=== PATIENT | female | born 1940 | race Caucasian/White ===

== ENCOUNTER → 2017-12-22 12:00 | Outpatient (CLI) | payer MEDICARE, SELFPAY ==
--- NOTE | 2017-12-22 12:17 | XR_ITS ---
XR chest 2V HISTORY: Cough, wheezing, bronchitis, former smoker ITS.REASON: BRONCHITIS ORDERING PHYSICIAN: Lake Gonzalez PATIENT AGE: 77 years COMPARISON: 01/08/2016 FINDINGS: Borderline cardiomegaly without failure. No lobar consolidation or collapse.. The lungs are clear without infiltrates, suspicious nodules, or pleural effusions. There are mild degenerative changes in the thoracic spine No acute bony abnormalities. IMPRESSION: No acute finding. Borderline cardiomegaly
== END ==
PROVIDERS: PCP Family Medicine; Visit Provider Family Medicine
DX: J20.9 Acute bronchitis, unspecified (principal)
CPT/HCPCS: 71046

== ENCOUNTER → 2018-03-30 13:49 | Outpatient (CLI) | payer MEDICARE, SELFPAY ==
--- NOTE | 2018-03-30 13:56 | NVE_ITS ---
Venous Exam Indications: 729.5 Pain in limb. IMPRESSIONS No evidence of deep or superficial vein thrombosis involving the left lower extremity History: Left lower extremity pain. Risk factors: Hypertension. Obese. Recent trauma. Patient states she has had several recent falls. Pain is behind the knee and the proximal calf. She states the pain has been ongoing for over a month. Left lower extremity venous duplex evaluation. Doppler flow study including spectral analysis, color and byrd scale imaging. Location: Vascular laboratory. Patient status: Outpatient. Tables: Venous flow and imaging: + + + + Location Overall Flow properties + + + + Left common femoral Patent Normal phasicity; spontaneous; normal augmentation; compressible + + + + Left saphenofemoral junction Patent Compressible + + + + Left profunda femoral Patent Compressible + + + + Left femoral Patent Normal phasicity; spontaneous; normal augmentation; compressible + + + + Left greater saphenous Patent Normal phasicity; spontaneous; normal augmentation; compressible + + + + Left popliteal Patent Normal phasicity; spontaneous; normal augmentation; compressible + + + + Left posterior tibial Difficult study Compressible + + + + Left peroneal Difficult study Compressible + + + + Left gastrocnemius Patent Compressible + + + + Left soleal Patent Compressible + + + + (Report amended ) Electronically signed by: Will Good [id number]
--- NOTE | 2018-03-30 14:25 | XR_ITS ---
XR knee LT 4V HISTORY: ITS.REASON: LT LEG PAIN ORDERING PHYSICIAN: Lake Gonzalez PATIENT AGE: 77 years COMPARISON: 9, FINDINGS: No fracture or dislocation. No lytic or blastic change. Normal mineralization. There are minimal osteoarthritic changes of the patellofemoral joint. There is a well-circumscribed area of bony exostosis projecting off of the posterior and medial aspect of the tibia measuring 2.8 cm consistent with an osteochondroma. No obvious erosive change from the cap area.. The area of exostosis points distally IMPRESSION: 1. Osteochondroma of the proximal tibia 2. Minimal osteoarthritic change of the patellofemoral joint. 3. Otherwise negative left knee
== END ==
PROVIDERS: PCP Family Medicine; Visit Provider Family Medicine
DX: M79.605 Pain in left leg (principal)
CPT/HCPCS: 73564; 93971

== ENCOUNTER → 2020-06-15 10:28 | Outpatient (CLI) | payer MEDICARE, SELFPAY ==
[2020-06-15 12:33] LABS: Coronavirus 19 IgG Antibody Negative (Negative); Coronavirus 19 IgM Antibody Negative (Negative)
== END ==
PROVIDERS: Visit Provider Internal Medicine Gastroenterology
DX: Z01.812 Encounter for preprocedural laboratory examination (principal); Z20.822 Contact with and (suspected) exposure to COVID-19; Z12.11 Encounter for screening for malignant neoplasm of colon; K58.9 Irritable bowel syndrome, unspecified
CPT/HCPCS: 36415; 86328

== ENCOUNTER 2020-06-17 13:06 | Day surgery (SDC) | payer MEDICARE, SELFPAY ==
[2020-06-11 14:19] VITALS: BMI 45.1
[2020-06-17 14:29] VITALS: BP 122/64; PULSE 100; RESP 18; TEMP 36.2; O2SAT 94
[2020-06-17 14:45] LABS: POC Glucose,Bedside 131 (70-110)
[2020-06-17 15:02] VITALS: O2SAT 97
--- NOTE | 2020-06-17 15:09 | HMH.ANESCL ---
[facility] Anesthesia Checklist - Patient Identification Patient Identification: Arm Band, Verbal (Name & ) - Structural Data Admitted From: Home Planned Operative Procedure/s: colonoscopy Consent for Planned Operative Procedure(s) Verified: Yes Verified Documents: Surgical Consent, History and Physical, Cardiac Clearance - NPO Status Verified Time NPO: 00:00 - Chart Verification Results Verified: H & H - Additional verifications Fingerstick Blood Glucose: 131 - Cardiovascular Assessment Heart Sounds: S1 & S2 - Airway Assessment C-Spine Mobility Assessed: Yes Dentition: Dentures-good fit - Neurological Assessment Level of Consciousness: Awake, Alert, Appropriate, Follows Commands Hx Seizures: No - Psychosocial Assessment Concerns Regarding Surgery: none - Anesthesia Plan Anesthesia Risk discussed: Yes ASA Class: III Anesthesia Type: MAC [facility] History I have reviewed the patient's past medical history: Yes Medical History: Reports:: Asthma, Diabetes Mellitus Type 2, Hyperlipidemia, Hypertension Denies:: Cancer, Diabetes Mellitus Type 1, Internal Pacemaker, MRSA, Seizures *Have you ever received a pneumonia vaccine?: Yes *Have you received a flu vaccine this season?: Yes Anesthesia experience/problems:: no Laterality Cases: Bilateral: Cataract, Tonsillectomy Other Surgeries: Yes: Colonoscopy. No: Pacemaker Amputation: No Fractures: No - *Social History Last grade of school completed: High school graduate Smoking Status: Former smoker #Yrs smoked (if former smoker): 30 Alcohol Intake: never Substance Use Type: denies use *Occupational Status:: retired Housing: house Household Members: none *Travel in the last 8 weeks: None Family Hx:: Hypertension
--- NOTE | 2020-06-17 15:31 | HMH.PROC ---
[facility] Procedure Note Procedure Note:: Colonoscopy Procedure Report: Colonoscopy with cold biopsies and cold snare polypectomy Endoscopist: Papi Garner II, MD Referring physician: Jorje Orourke M.D./Lake Gonzalez MD Date of Procedure: June 17, 2020 Equipment: Olympus 180 variable stiffness pediatric colonoscope Sedation: MAC sedation Indication: Mrs. Sanon is an 79-year-old female who is here for diagnostic colonoscopy. The patient has had longstanding diarrhea/chronic diarrhea for more than 20 years and has been diagnosed with IBS. She does state that her last colonoscopy was at [facility] 5 to 7 years ago. The patient reports no abdominal pain, gassiness or bloating. She reports no rectal bleeding or mucus. She reports no weight loss or family history of colon cancer. Procedure: Prior to the procedure, a history and physical exam was performed, and patient's medications and allergies were reviewed. The risks, benefits and alternatives of the sedation and procedure were discussed with the patient. All questions were answered and informed consent was obtained. The patient was brought to the procedure room. Patient identification and proposed procedure were verified by the physician and the nurse. The patient was placed in a left lateral decubitus position and the scope was passed under direct vision. Throughout the procedure, the patient's blood pressure, pulse, and oxygen saturations were monitored continuously. The colonoscopy was accomplished without difficulty. The patient tolerated the procedure well. Findings: On digital rectal examination there was normal rectal tone. There were no external hemorrhoids. The colonoscope was introduced through the anal canal to the rectum and advanced to the cecum. The ileocecal valve and appendiceal orifice were identified. The scope was advanced a short distance into the ileum which appeared grossly normal. The scope was then withdrawn into the colon. There were 2 diminutive polyps (cecum x1 (2 mm) and rectum x1 (4 mm)) which were removed via cold snare polypectomy. Random cold biopsies were taken from the right colon to rule out microscopic colitis. The remaining cecum, ascending and transverse colon and mucosa were grossly normal. There were scattered diverticuli throughout the descending and sigmoid colon (LEFT colon). The rectum itself was normal. Upon retroflexion within the rectum there were grade 2 internal hemorrhoids. The preparation was excellent throughout with [place] Preparation Score of 9. The cecal time was 14 minutes. Impression: 1. Diminutive colonic polyps x2 2. Left-sided diverticulosis 3. Grade 2 internal hemorrhoids Plan: I will follow up the biopsies as well as the polyp histology. She should not require any further preventive colonoscopy. If the biopsies confirm microscopic colitis, I would recommend budesonide for at least 12 weeks. If the biopsies are normal, I would consider an antispasmodic (Bentyl), Viberzi, Colestid or Lotronex. I would certainly consider baseline bulk fiber (FiberCon).
[2020-06-17 15:32] VITALS: BP 86/44; PULSE 104; RESP 12; TEMP 36.4; O2SAT 98
[2020-06-17 15:42] VITALS: BP 99/47; PULSE 98; RESP 16; O2SAT 98
[2020-06-17 15:52] VITALS: BP 87/63; PULSE 106; RESP 16; O2SAT 95
[2020-06-17 16:02] VITALS: BP 109/53; PULSE 88; RESP 16; TEMP 36.4; O2SAT 97
== END 2020-06-17 16:15 | disposition home or self-care (01) ==
LOC: OUTP 13:10
PROVIDERS: PCP Family Medicine; Visit Provider Internal Medicine Gastroenterology
PROC: 0DJD8ZZ Inspection of Lower Intestinal Tract, Via Natural or Artificial Opening Endoscopic (ICD-10-PCS; CPT 45378; principal; 2020-06-17 14:30)
DX: K63.5 Polyp of colon (principal); K62.1 Rectal polyp; K57.30 Diverticulosis of large intestine without perforation or abscess without bleeding; K64.1 Second degree hemorrhoids; J45.909 Unspecified asthma, uncomplicated; E11.9 Type 2 diabetes mellitus without complications; E78.5 Hyperlipidemia, unspecified; I10 Essential (primary) hypertension; Z87.891 Personal history of nicotine dependence; Z82.49 Family history of ischemic heart disease and other diseases of the circulatory system; Z79.899 Other long term (current) drug therapy; Z88.0 Allergy status to penicillin
CPT/HCPCS: 45380; 45385; 82962; 88305

== ENCOUNTER → 2020-09-23 13:50 | Outpatient (POV) | payer MEDICARE, SELFPAY | PROVIDERS: Visit Provider Nurse Practitioner Family | DX: Z00.00 Encounter for general adult medical examination without abnormal findings (principal) ==

== ENCOUNTER → 2020-11-18 13:40 | Outpatient (POV) | payer MEDICARE, SELFPAY | PROVIDERS: Visit Provider Nurse Practitioner Family | DX: Z00.00 Encounter for general adult medical examination without abnormal findings (principal) ==

== ENCOUNTER 2021-06-14 18:47 | Inpatient (IN) | payer MEDICARE, SELFPAY ==
[2021-06-14 18:45] VITALS: BP 116/89; PULSE 93; RESP 16; TEMP 36.5; O2SAT 99; BMI 36.9
--- NOTE | 2021-06-14 18:51 | ECG_ITS ---
APPROVED REPORT Exam: Resting ECG HR:90 bpm ECG Measurements Heart Rate 90 AXES MO 152 P -26 QRSd 145 QRS -19 QT 386 T 117 QTc 434 Conclusion SINUS RHYTHM LEFT BUNDLE BRANCH BLOCK [120+ ms QRS DURATION, 80+ ms Q/S IN V1/V2, 85+ ms R IN I/aVL/V5/V6] ABNORMAL ECG UNCONFIRMED REPORT Electronically signed by : Rohan Valencia MD 06/15/2021 08:51:56
--- NOTE | 2021-06-14 18:51 | XR_ITS ---
PROCEDURE INFORMATION: Exam: XR Chest Exam date and time: 06/14/2021 6:51 PM Age: 80 years old Clinical indication: Cough and other: Weakness TECHNIQUE: Imaging protocol: XR of the chest. Views: 1 view. COMPARISON: DX CXR2V XR chest 2V 12/22/2017 12:27 PM FINDINGS: Lungs: Left lower lung opacities could correlate with pneumonia in the appropriate clinical setting. Pleural spaces: Unremarkable. No pleural effusion. No pneumothorax. Heart/Mediastinum: Cardiomegaly. Enlarged pulmonary arteries likely represent chronic pulmonary arterial hypertension. Bones/joints: Unremarkable. IMPRESSION: Left lower lung opacities could correlate with pneumonia in the appropriate clinical setting.
--- NOTE | 2021-06-14 18:58 | HMH.EDGENADL ---
ED Disposition Condition on Discharge: Good - Critical Care Critical Care Time: No <Sammy Jon - Last Filed: 06/14/21 19:38> <Giovanna Brunson - Last Filed: 06/14/21 21:33> Clinical Impression: Generalized weakness Disposition: Still a Patient Referrals: Lake Gonzalez [Primary Care Provider] - Attestation: On 06/14/21, the high probability of a clinically significant, sudden or life threatening deterioration of the following system(s) required my full and direct attention, intervention and personal management. The time I documented below is in addition to time spent performing reported procedures but includes the following listed in this critical care notation. Medical Decision Making - Medical Records Medical records reviewed: Yes: I reviewed the patient's medical records. - Oneal Inquiry Pt receiving controlled substance: No - Reevaluation(s) Time: 19:38 <[email or web address] - Last Filed: 06/14/21 19:38> - Lab Data Result diagrams: 06/14/21 19:45 06/14/21 19:45 <Giovanna Brunson - Last Filed: 06/14/21 21:33> Vital Signs: 06/14/21 18:45 06/14/21 19:00 06/14/21 19:30 Temperature 97.7 F Temperature Source Oral Pulse Rate 93 H Pulse Rate [Right Radial] 93 H Respiratory Rate 16 18 18 Blood Pressure 95/37 L 94/62 L Blood Pressure [Right Arm] 116/89 Blood Pressure Mean [Right Arm] 98 Blood Pressure Source [Right Arm] Automatic Cuff Blood Pressure Position [Right Arm] Sitting 02 Sat by Pulse Oximetry 99 99 98 Oxygen Delivery Method Nasal Cannula Nasal Cannula Nasal Cannula Oxygen Flow Rate (LPM) 2 2 2 06/14/21 20:00 06/14/21 20:30 Temperature Temperature Source Pulse Rate 93 H Pulse Rate [Right Radial] Respiratory Rate 18 17 Blood Pressure 90/56 L 111/58 L Blood Pressure [Right Arm] Blood Pressure Mean [Right Arm] Blood Pressure Source [Right Arm] Blood Pressure Position [Right Arm] 02 Sat by Pulse Oximetry 100 100 Oxygen Delivery Method Nasal Cannula Nasal Cannula Oxygen Flow Rate (LPM) 2 2 - Lab Data Lab Results 06/14/21 19:45: WBC 17.2 H, RBC 4.92, Hgb 15.1, Hct 44.9, MCV 91.1, MCH 30.6, MCHC 33.6, RDW 12.9, Plt Count 190, MPV 8.6, Neut % (Auto) 88.2 H, Lymph % (Auto) 4.7 L, Island % (Auto) 6.6, Eos % (Auto) 0.4, Baso % (Auto) 0.1, Neut # (Auto) 15.2 H, Lymph # (Auto) 0.8, Island # (Auto) 1.1 H, Eos # (Auto) 0.1, Baso # (Auto) 0.0, Total Counted 100, Neutrophils % (Manual) 81 H, Band Neutrophils % 8.0, Lymphocytes % (Manual) 9 L, Monocytes % (Manual) 2, Platelet Estimate Normal, RBC Morphology Normal 06/14/21 19:45: Sodium 126 L, Potassium 5.1, Chloride 93 L, Carbon Dioxide 25, Anion Gap 13.1, BUN 98 H, Creatinine 2.70 H, Estimated Creat Clear 29, Estimated GFR 17 L*, Est GFR ( Amer) 20 L, Glucose 291 H, Calcium 8.4, Total Bilirubin 1.0, AST 29, ALT 23, Alkaline Phosphatase 67, Troponin I 0.06 H, Total Protein 5.8 L, Albumin 3.7, Globulin 2.1, Albumin/Globulin Ratio 1.8, TSH 0.59 06/14/21 19:45: NT-Pro-B Natriuret Pep 432 06/14/21 19:57: SARS-CoV-2 (PCR) Not detected, Influenza A Untype (PCR) Not detected, Influenza Type B (PCR) Not detected Orders (Tests/Meds): ED MEDICATIONS Generic Name Dose Route Start Last Admin Trade Name Freq PRN Reason Stop Dose Admin Lactated Ringer's 500 mls @ 999 mls/hr 06/14/21 20:45 06/14/21 20:36 Lactated Ringer's 1000 Ml Bag IV 06/14/21 21:15 999 mls/hr .Q31M KISHOR Administration Ceftriaxone Sodium 1 gm/ 50 mls @ 100 mls/hr 06/14/21 21:30 Sodium Chloride IV 06/28/21 21:29 Q24H KISHOR Azithromycin 500 mg/ Sodium 250 mls @ 250 mls/hr 06/14/21 21:30 Chloride IV 06/28/21 21:29 Q24H KISHOR ORDERS Category Date Time Status Troponin I Q3H Lab 06/14/21 22:00 Ordered Troponin I Q3H Lab 06/15/21 01:00 Ordered UA [Urinalysis and Microscopic] Stat Lab 06/14/21 21:00 Received - Reevaluation(s) Reevaluation #1: On reevaluation, the patient is feeling slightly
[2021-06-14 19:00] VITALS: BP 95/37; PULSE 93; RESP 18; O2SAT 99
[2021-06-14 19:30] VITALS: BP 94/62; RESP 18; O2SAT 98
[2021-06-14 19:54] LABS: Basophils % 0.1 % (0.1-2.0); Eosinophils # 0.1 K/mm3 (0.0-0.4); Eosinophils % 0.4 % (0.1-12.0); Hematocrit 44.9 % (37.0-47.0); Hemoglobin 15.1 g/dL (12.2-16.2); Lymphocytes # 0.8 K/mm3 (0.7-4.5); Lymphocytes % 4.7 % (10-50); Mean Corpuscular HGB Conc 33.6 g/dL (31.8-35.4); Mean Corpuscular Hemoglobin 30.6 pg (27.0-31.2); Mean Corpuscular Volume 91.1 fl (81-99); Mean Platelet Volume 8.6 fl (7.4-10.4); Monocytes # 1.1 K/mm3 (0.1-1.0); Monocytes % 6.6 % (1.7-9.3); Neutrophils # 15.2 K/mm3 (1.8-7.8); Neutrophils % 88.2 % (37.0-80.0); Platelet Count 190 K/mm3 (142-424); Red Blood Count 4.92 M/mm3 (4.20-5.40); Red Cell Distribution Width 12.9 % (11.5-17.5); White Blood Count 17.2 K/mm3 (4.8-10.8)
[2021-06-14 19:56] LABS: MANUAL DIFFERENTIAL MANUAL DIFFERENTIAL (MANUAL DIFF)
[2021-06-14 20:00] VITALS: BP 90/56; RESP 18; O2SAT 100
[2021-06-14 20:01] LABS: Alanine Aminotransferase 23 U/L (12-78); Albumin Level 3.7 g/dl (3.5-5.0); Albumin/Globulin Ratio 1.8 (1.1-1.8); Alkaline Phosphatase 67 U/L (38-126); Anion Gap 13.1 mEq/L (5-15); Aspartate Amino Transferase 29 U/L (14-36); Calcium 8.4 mg/dl (8.4-10.2); Carbon Dioxide 25 mmol/L (22.0-30.0); Chloride 93 mmol/L (98-107); Creatinine Clearance Estimated 29 mL/min (50-200); Estimated Glomerular Filt Rate 17 ml/min (>60); GFR (African American) 20 ML/MIN (>60); Globulin 2.1 g/dL (1.3-3.2); Glucose 291 mg/dl (74-100); Potassium 5.1 mmoL/L (3.5-5.1); Sodium 126 mmol/L (136-145); Total Protein,Serum 5.8 g/dl (6.3-8.2)
[2021-06-14 20:03] LABS: Lymphocytes % 9 % (10-50); Monocytes % 2 % (2-9); Neutrophils % 81 % (42-76); Platelet Estimate Normal; RBC Morphology Normal; Total Cells Counted 100
[2021-06-14 20:04] LABS: Blood Urea Nitrogen 98 mg/dl (7-17)
[2021-06-14 20:05] LABS: Coronavirus 19, PCR Not Detected (NotDetected); Influenza A, PCR Not Detected (NotDetected); Influenza B, PCR Not Detected (NotDetected)
[2021-06-14 20:13] LABS: Troponin I 0.06 ng/ml (0.00-0.034)
[2021-06-14 20:22] LABS: NT Pro Brain Natriuretic Pep. 432 pg/mL (0-450)
[2021-06-14 20:30] VITALS: BP 111/58; PULSE 93; RESP 17; O2SAT 100
[2021-06-14 20:32] LABS: Thyroid Stimulating Hormone 0.59 uIU/mL (0.465-4.68)
[2021-06-14 21:05] LABS: Microscopic, Urine URINE MICROSCOPIC (MICROSCOPIC)
--- NOTE | 2021-06-14 21:22 | PC.NURSE ---
MICHAEL forbes speaking with dr. robison at this time
[2021-06-14 21:34] LABS: Appearance,Urine CLEAR (Clear); Bilirubin,Urine Negative (Negative); Blood, Urine Negative (Negative); Color,Urine YELLOW (Yellow); Glucose,Urine (UA) 1+ (Negative); Ketones,Urine Negative (Negative); Leukocyte Esterase,Urine Negative (Negative); Nitrate,Urine Negative (Negative); PH,Urine 5.5 (5.0-8.5); Protein,Urine Negative (Negative); Urobilinogen,Urine 0.2 EU/dl (0.2)
[2021-06-14 21:48] VITALS: BMI 36.1
[2021-06-14 22:31] VITALS: BP 91/68; PULSE 98; RESP 18; TEMP 36.8; O2SAT 94
--- NOTE | 2021-06-14 23:05 | PC.NURSE ---
PT ARRIVED TO FLOOR VIA STRETCHER FROM ED W/STAFF @ 2330
[2021-06-14 23:18] LABS: Mycoplasma Pneumo IGM (Rapid) Non-Reactive (Non-Reactiv)
[2021-06-15] VITALS (9 sets, daily range): BP systolic 93–132; BP diastolic 50–87; PULSE 80–100; RESP 16–21; TEMP 36.3–37.1; O2SAT 94–97
[2021-06-15 00:05] LABS: Troponin I 0.04 ng/ml (0.00-0.034)
[2021-06-15 03:35] LABS: Troponin I 0.06 ng/ml (0.00-0.034)
[2021-06-15 06:33] LABS: Basophils % 0.3 % (0.1-2.0); Eosinophils # 0.2 K/mm3 (0.0-0.4); Eosinophils % 1.2 % (0.1-12.0); Hematocrit 43.3 % (37.0-47.0); Hemoglobin 14.9 g/dL (12.2-16.2); Lymphocytes # 1.8 K/mm3 (0.7-4.5); Lymphocytes % 12.9 % (10-50); Mean Corpuscular HGB Conc 34.3 g/dL (31.8-35.4); Mean Corpuscular Hemoglobin 31.2 pg (27.0-31.2); Mean Platelet Volume 10.1 fl (7.4-10.4); Neutrophils # 10.6 K/mm3 (1.8-7.8); Neutrophils % 78.6 % (37.0-80.0); Platelet Count 164 K/mm3 (142-424); Red Blood Count 4.76 M/mm3 (4.20-5.40); Red Cell Distribution Width 12.9 % (11.5-17.5); White Blood Count 13.5 K/mm3 (4.8-10.8)
[2021-06-15 09:24] LABS: Chloride 91 mmol/L (98-107); Potassium 4.8 mmoL/L (3.5-5.1); Sodium 126 mmol/L (136-145)
[2021-06-15 09:27] LABS: Anion Gap 11.8 mEq/L (5-15); Calcium 7.8 mg/dl (8.4-10.2); Carbon Dioxide 28 mmol/L (22.0-30.0); Creatinine Clearance Estimated 25 mL/min (50-200); Estimated Glomerular Filt Rate 15 ml/min (>60); GFR (African American) 18 ML/MIN (>60); Glucose 224 mg/dl (74-100)
[2021-06-15 09:33] LABS: Blood Urea Nitrogen 105 mg/dl (7-17)
[2021-06-15 10:14] LABS: Hemoglobin A1C 9.2 % (4.0-6.0)
--- NOTE | 2021-06-15 13:15 | HMH.HP ---
*Chief complaint: Shortness of breath, chest congestion *History of present illness: This 80-year-old white female presented in the emergency room and was admitted. She states that since [place] she has not felt well. She has been short of breath and congested. She has a history of lung disease being a heavy smoker in the past. She has, however, not smoked for 40 years. She is normally seen in the office of Dr. Lake Gonzalez in [place]. She was seen in his office by his nurse practitioner a week or so ago. The patient recently finished a course of prednisone. She regularly uses albuterol nebulizers at home as well as nasal O2. In the emergency room there was concern for possible pneumonia. She has had a cough but is not having much productivity. With her symptoms hanging on she states that she got tired of hearing Why don't you go to [place]? from a number of sources. Additionally complicating her problem is renal failure. She sees Dr. Morgan, script girl. She last saw him June 12 and was taken off diuretics. [facility] History Medical History: Reports:: Asthma, Chronic Obstructive Pulmonary Disease (COPD), Diabetes Mellitus Type 2, Hyperlipidemia, Hypertension Denies:: Cancer, Diabetes Mellitus Type 1, Internal Pacemaker, MRSA, Seizures *Have you ever received a pneumonia vaccine?: No *Have you received a flu vaccine this season?: Yes Other Medical History: Reports: Arthritis (Ankles). Denies: Hypothyroidism, Thyroid Disease Laterality Cases: Left: Cataract (2016), Other (Mastoid surgery), Bilateral: Tonsillectomy Other Surgeries: Yes: Appendectomy, Cholecystectomy, Colonoscopy (06/17/2020 Dr. Garner. History of tubularl adenomas.), Hysterectomy-Total, Other (Tonsillectomy. Tumor removed left mastoid area.). No: Pacemaker Amputation: No Fractures: No - *Social History Smoking Status: Former smoker Tobacco Type: cigarettes #Yrs smoked (if former smoker): 30 Alcohol Intake: never Substance Use Type: denies use *Occupational Status:: retired Housing: house Household Members: none *Travel in the last 8 weeks: None Family Hx:: Cancer (Son with renal cancer. Daughter of cancer), Diabetes (Son), Hypertension, no Thyroid Disorder : 3 Para: 3 Review of Systems - Constitutional Reports anorexia, Reports lack of energy, Reports weakness, Denies body ache(s), Denies chills - Eyes Denies change in vision - ENT Reports hearing loss, Denies dizziness - *Cardiovascular Reports shortness of breath, Reports shortness of breath with activity, Denies chest pain, Denies irregular heart rhythm - *Respiratory Reports chest congestion, Reports cough, Reports shortness of breath, Denies change in phlegm color - *Gastrointestinal Reports loose stools, Denies abdominal pain - *Genitourinary Denies abnormal vaginal bleeding - *Musculoskeletal Reports joint pain (Ankles), Reports back pain - Integumentary/Breasts Reports yellowing of the skin, Denies bleeding lesions - *Neurologic Reports weakness, Denies headache(s) - Allergic/Immunologic Reports wheezing Meds Home Medications Medication Instructions Recorded Confirmed Type allopurinol 100 mg tablet 100 mg PO DAILY tab 05/15/20 06/14/21 History benazepril 40 mg tablet 40 mg PO DAILY 05/15/20 06/14/21 History insulin NPH-regular 70-30 U-100 38 units SQ BID 05/15/20 06/14/21 History insulin 100 unit/mL subcutaneous pen metolazone 2.5 mg tablet 2.5 mg PO HS tab 05/15/20 06/14/21 History metoprolol tartrate 25 mg tablet 25 mg PO DAILY 05/15/20 06/14/21 History potassium chloride 20 mEq oral 20 meq PO DAILY 05/15/20 06/14/21 History packet spironolactone 25 mg tablet 25 mg PO DAILY 05/15/20 06/14/21 History Atorvastatin Calcium [Lipitor 40mg 40 mg PO HS 06/11/20 06/14/21 History Tablet*] Cholecalciferol (Vitamin D3) 1 tab PO DAILY 06/11/20 06/14/21 History [Vitamin D3] Torsemide 50 mg PO BID 06/11/20 06/14/21 History Allergi
--- NOTE | 2021-06-15 13:21 | P.CONPHA_ITS ---
[facility] Pharmacy VTE Monitoring - Patient Demographics Admission date: 06/15/21 Report Date: 06/15/21 Time: 13:21 Allergies/Adverse Reactions: Patient Allergies codeine [CODEINE] Allergy (Mild, Verified 06/11/20 13:59) iodine [IODINE] Allergy (Mild, Verified 06/11/20 13:59) latex [LATEX] Allergy (Mild, Verified 06/11/20 13:59) oxycodone [OXYCODONE] Allergy (Mild, Verified 06/11/20 13:59) Sulfa (Sulfonamide Antibiotics) [SULFA (SULFONAMIDE ANTIBIOTICS)] Allergy (Mild, Verified 06/11/20 13:59) PCN Allergy (Mild, Uncoded 05/15/20 10:05) Height: 1.75 m Weight: 110.586 kg Patient Problems: Current Active Problems Generalized weakness (Acute) - VTE Risk Labs: VTE Related Lab Results Hgb 14.9 g/dL (12.2-16.2) 06/15/21 05:43 Hct 43.3 % (37.0-47.0) 06/15/21 05:43 Plt Count 164 K/mm3 (142-424) 06/15/21 05:43 BUN 105 mg/dl (7-17) H* 06/15/21 05:43 Creatinine 3.00 mg/dl (0.52-1.04) H 06/15/21 05:43 Estimated Creat Clear 25 mL/min (50-200) 06/15/21 05:43 VTE Score: 4 VTE Risk Level: Low Risk - Prophylaxis Types of VTE Prophylaxis: IPCS Knee High Location of Applied Device: Bilateral Lower Extremeties (ICDS ORDERED)
--- NOTE | 2021-06-15 23:35 | PC.NURSE ---
Pharmacy called for Vancomycin dosing.
[2021-06-16] VITALS (13 sets, daily range): BP systolic 108–161; BP diastolic 50–69; PULSE 70–96; RESP 16–17; TEMP 36.4–36.9; O2SAT 92–97; BMI 37.1
[2021-06-16 05:28] LABS: POC Glucose,Bedside 284 (70-110)
[2021-06-16 06:28] LABS: POC Glucose,Bedside 201 (70-110)
--- NOTE | 2021-06-16 08:14 | HMH.PHACONS ---
- Pharmacy Consult Date: 06/16/21 Time: 08:15 Referring provider: DR REZA Reason for Consult:: VANCOMYCIN DOSING CONSULT Allergies and ADEs:: Allergies Allergy/AdvReac Type Severity Reaction Status Date / Time codeine [CODEINE] Allergy Mild Verified 06/11/20 13:59 iodine [IODINE] Allergy Mild Verified 06/11/20 13:59 latex [LATEX] Allergy Mild Verified 06/11/20 13:59 oxycodone [OXYCODONE] Allergy Mild Verified 06/11/20 13:59 Sulfa (Sulfonamide Allergy Mild Verified 06/11/20 13:59 Antibiotics) [SULFA (SULFONAMIDE ANTIBIOTICS)] PCN Allergy Mild Uncoded 05/15/20 10:05 Home Medications:: Home Medications Medication Instructions Recorded Confirmed Type allopurinol 100 mg tablet 100 mg PO DAILY tab 05/15/20 06/14/21 History benazepril 40 mg tablet 40 mg PO DAILY 05/15/20 06/14/21 History spironolactone 25 mg tablet 25 mg PO DAILY 05/15/20 06/14/21 History Atorvastatin Calcium [Lipitor 40mg 40 mg PO HS 06/11/20 06/14/21 History Tablet*] Cholecalciferol (Vitamin D3) 1 tab PO DAILY 06/11/20 06/14/21 History [Vitamin D3] Insulin Aspart [Novolog] 10 units SQ AC 06/15/21 06/15/21 History Ipratropium/Albuterol Sulfate 3 ml IH QID 06/15/21 06/15/21 History [Duoneb 3mL neb] Potassium Chloride [Klor-Con M20] 20 meq PO BID 06/15/21 06/15/21 History Height: 1.75 m Weight: 113.8 kg Laboratory Results:: Laboratory Results - last 24 hr 06/15/21 05:43: Sodium 126 L, Potassium 4.8, Chloride 91 L, Carbon Dioxide 28, Anion Gap 11.8, BUN 105 H*, Creatinine 3.00 H, Estimated Creat Clear 25, Estimated GFR 15 L*, Est GFR ( Amer) 18 L*, Glucose 224 H D, Calcium 7.8 L 06/15/21 05:43: Hemoglobin A1c 9.2 H 06/15/21 09:29: POC Glucose 284 H 02/28/22 06:01: POC Glucose 201 H Medical History: Reports:: Asthma, Chronic Obstructive Pulmonary Disease (COPD), Diabetes Mellitus Type 2, Hyperlipidemia, Hypertension Denies:: Cancer, Diabetes Mellitus Type 1, Internal Pacemaker, MRSA, Seizures Assessment and Plan (1) Asthmatic bronchitis Status: Acute Category: Medical Code(s): J45.909 - Unspecified asthma, uncomplicated (2) Type 2 diabetes mellitus Status: Acute Category: Medical Code(s): E11.9 - Type 2 diabetes mellitus without complications (3) Hypertension Status: Acute Category: Medical Code(s): I10 - Essential (primary) hypertension (4) Renal insufficiency Status: Acute Category: Medical Code(s): N28.9 - Disorder of kidney and ureter, unspecified (5) Generalized weakness Status: Acute Category: Medical Code(s): R53.1 - Weakness - Assessment and plan all Dx Assessment and Plan for all problems:: Pharmacokinetic dosing service Objective: Patient: Floor: Age: 80 yo Serum creatinine: 3.0 mg/dL Height: 68.9 Inches Weight (kg): 113.8 Diagnosis: PNEUMONIA Assessment: IBW (kg): 65.97 Dosing wt(kg): 113.8 Estimated Creatinine clearance (ml/min): 15.1 CRCL method: Cockcroft and Gault using ibw(default). Drug selected: Vancomycin Loading dose (mg): 1750 MG Vd (liters): 79.7 (factor used: 0.7 L/kg) Tommy (hr-1): 0.017 Half life (hrs): 40.77 CLvanco=?? 1.355 L/hr Recommended dose: 1500 mg Interval: 48 hrs Infusion time (hrs): 2.0 Predicted peak (mcg/mL): 33.2 Predicted trough (mcg/mL): 15.19 Total body weight is being used for vancomycin dosing. Recommendations: Give Vancomycin 1500 mg q 48 hrs with an expected Cpeak of 33.2 mcg/ml and an expected Ctrough of 15.19 mcg/ml TO START 06/17/21 AT 23:00 PATIENT RECEIVED A ONE-TIME LOADING DOSE OF VANCOMYCIN 1750 MG IV ON 06/15/21 AT 22:51. AUC 0-24 /JANE Data: JANE 0.5 mcg/mL:?? AUC/JANE:? 1107.0 JANE 1.0 mcg/mL:?? AUC/JANE:? 553.5 --------- JANE 1.5 mcg/mL:?? AUC/JANE:? 369.0 JANE 2.0
[2021-06-16 08:31] LABS: Basophils % 0.2 % (0.1-2.0); Eosinophils # 0.1 K/mm3 (0.0-0.4); Eosinophils % 0.7 % (0.1-12.0); Hematocrit 40.7 % (37.0-47.0); Hemoglobin 13.6 g/dL (12.2-16.2); Lymphocytes # 1.2 K/mm3 (0.7-4.5); Lymphocytes % 11.3 % (10-50); Mean Corpuscular HGB Conc 33.5 g/dL (31.8-35.4); Mean Corpuscular Volume 92.7 fl (81-99); Mean Platelet Volume 9.1 fl (7.4-10.4); Monocytes # 0.6 K/mm3 (0.1-1.0); Monocytes % 5.8 % (1.7-9.3); Neutrophils # 8.3 K/mm3 (1.8-7.8); Platelet Count 180 K/mm3 (142-424); Red Blood Count 4.39 M/mm3 (4.20-5.40); Red Cell Distribution Width 12.9 % (11.5-17.5); White Blood Count 10.2 K/mm3 (4.8-10.8)
--- NOTE | 2021-06-16 08:40 | P.PN_ITS ---
Internal Medicine - PN: Subj *Date: 06/16/21 *Time: 08:40 Interval history: Patient states it is difficult to sleep in the hospital. She feels her chest wheezing is better. O2 sats running 94 to 96% on O2 at 2 L/min. She was able to eat breakfast. White blood cell count this morning has normalized. BMP is pending. Exam Vital signs and Labs for Last 24 Hours: Temp Pulse Resp BP Pulse Ox 98.4 F 92 H 17 116/59 L 94 L 06/16/21 07:55 06/16/21 07:55 06/16/21 07:55 06/16/21 07:55 06/16/21 07:55 Laboratory Results - last 24 hr 06/15/21 05:43: Sodium 126 L, Potassium 4.8, Chloride 91 L, Carbon Dioxide 28, Anion Gap 11.8, BUN 105 H*, Creatinine 3.00 H, Estimated Creat Clear 25, Estimated GFR 15 L*, Est GFR ( Amer) 18 L*, Glucose 224 H D, Calcium 7.8 L 06/15/21 05:43: Hemoglobin A1c 9.2 H 06/15/21 09:29: POC Glucose 284 H 06/16/21 06:01: POC Glucose 201 H 06/16/21 08:17: WBC 10.2, RBC 4.39, Hgb 13.6, Hct 40.7, MCV 92.7, MCH 31.0, MCHC 33.5, RDW 12.9, Plt Count 180, MPV 9.1, Neut % (Auto) 82.0 H, Lymph % (Auto) 11.3, [place] % (Auto) 5.8, Eos % (Auto) 0.7, Baso % (Auto) 0.2, Neut # (Auto) 8.3 H, Lymph # (Auto) 1.2, [place] # (Auto) 0.6, Eos # (Auto) 0.1, Baso # (Auto) 0.0 I & O for Last 24 hours: Intake & Output 06/13/21 06/14/21 06/15/21 06/16/21 11:59 11:59 11:59 11:59 Intake Total 1080 / 1080 Output Total 190 / 190 1100 / 1100 Balance -190 / -190 -20 / -20 Weight 243 lb 12.8 oz 250 lb 14.177 oz Microbiology Reports for the Last 24 Hours: Microbiology 06/14/21 23:25 Blood Blood Culture - Preliminary 06/14/21 23:25 Blood Blood Culture - Preliminary - Constitutional no acute distress Comments: Speaks without dyspnea - *Routine Respiratory Exam Present: wheezes (Inspiratory and expiratory) - *Routine Cardiovascular Exam Present: RRR - *Routine Abdominal Exam Present: soft, normoactive bowel sounds, obese. Absent: tenderness - *Routine Extremities Exam Absent: edema, calf tenderness - *Routine Neurological Exam Present: alert, oriented X3 Assessment and Plan (1) Asthmatic bronchitis Status: Acute Category: Medical Code(s): J45.909 - Unspecified asthma, uncomplicated (2) Type 2 diabetes mellitus Status: Acute Category: Medical Code(s): E11.9 - Type 2 diabetes mellitus without complications (3) Hypertension Status: Acute Category: Medical Code(s): I10 - Essential (primary) hypertension (4) Renal insufficiency Status: Acute Category: Medical Code(s): N28.9 - Disorder of kidney and ureter, unspecified (5) Generalized weakness Status: Acute Category: Medical Code(s): R53.1 - Weakness - Assessment and plan all Dx Assessment and Plan for all problems:: Continue with current pulmonary care. Vancomycin has been added to Rocephin and Zithromax. She is also currently on prednisone and duo nebs scheduled.
[2021-06-16 08:47] LABS: Chloride 98 mmol/L (98-107); Potassium 4.2 mmoL/L (3.5-5.1); Sodium 129 mmol/L (136-145)
[2021-06-16 08:50] LABS: Anion Gap 10.2 mEq/L (5-15); Blood Urea Nitrogen 77 mg/dl (7-17); Calcium 7.2 mg/dl (8.4-10.2); Carbon Dioxide 25 mmol/L (22.0-30.0); Creatinine Clearance Estimated 37 mL/min (50-200); Estimated Glomerular Filt Rate 23 ml/min (>60); GFR (African American) 27 ML/MIN (>60); Glucose 238 mg/dl (74-100)
--- NOTE | 2021-06-16 11:00 | HMH.OTEV ---
OT Inpatient Evaluation Rehab OT IP Evaluation Start: 06/16/21 10:19 Freq: ONCE Status: Complete Protocol: Document 06/16/21 10:56 AGNES (Rec: 06/16/21 10:59 AGNES [id number]) Rehab OT IP Assessment Subjective History *Chief complaint: Shortness of breath, chest congestion *History of present illness: This 80-year-old white female presented in the emergency room and was admitted. She states that since [place] she has not felt well. She has been short of breath and congested. She has a history of lung disease being a heavy smoker in the past. She has, however, not smoked for 40 years. She is normally seen in the office of Dr. Lake Gonzalez in [place]. She was seen in his office by his nurse practitioner a week or so ago. The patient recently finished a course of prednisone. She regularly uses albuterol nebulizers at home as well as nasal O2. In the emergency room there was concern for possible pneumonia . She has had a cough but is not having much productivity. With her symptoms hanging on she states that she got tired of hearing Why don't you go to [place]? from a number of sources. Additionally complicating her problem is renal failure. 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 She last saw him June 12 and was taken off diuretics. [facility] History Medical History: Reports:: Asthma, Chronic Obstructive Pulmonary Disease (COPD), Diabetes Mellitus Type 2, Hyperlipidemia, Hypertension *Chief complaint: Shortness of breath, chest
--- NOTE | 2021-06-16 11:38 | HMH.PTEV ---
Physical Therapy Evaluation Rehab PT IP Evaluation Start: 06/16/21 10:18 Freq: ONCE Status: Active Protocol: Document 06/16/21 11:35 PHORGIANCARLO (Rec: 06/16/21 11:38 PHORNE [id number]) Subjective/History History History 80 yowf adm to [facility] with bronchitis with poss PNA. She reports she is on 2L O2 via [place] at all times at home, lives alone, no steps to enter the home, and uses a cane for ambulation. Subjective Subjective Pt with no c/o this am, states I feel a lot better than I did when I came in here. Rehab PT IP Eval Objective Appearance Patient Behavior Appropriate Patient Orientation Person,Place,Time Difficulty following instructions none Speech Pattern Clear Ambulation Patient Able to Ambulate Yes Ambulation Observation IP General Gait Pattern Observation Shuffling Step Ambulation Distance (feet) 25 Ambulation Assistive Device None Ambulation Ability Contact Guard/Hand Hold Balance Ability to Arise Able, uses arms to help Sitting Balance Steady, safe Standing Balance Steady, wide stance Dynamic Sitting Balance Ability Good Dynamic Standing Balance Ability Fair Transfers Bed Transfer Ability Contact Guard/Hand Hold Chair Transfer Ability Contact Guard/Hand Hold Sit to Stand Bed Transfer Ability Contact Guard/Hand Hold Sit to Stand Chair Transfer Ability Contact Guard/Hand Hold ROM All Extremities PT ROM Status WFL MMT All Extremities PT MMT WFL Rehab PT IP prob,goals,plan Problems Date of Evaluation: 06/16/21 Discharge Plan PT Discharge Plan Pt is currently at baseline for all mobility and is appropriate to return home once medically stable. Recommend Home Health therapy upon D/C. G -code Required No Eval Complexity Eval Charge Codes 26083 - Moderate Complexity PHYSICIAN CERTIFICATION: I certify the specified therapy services for Denisa Sanon are required, authorized, and reviewed every 30 days.
--- NOTE | 2021-06-16 12:18 | SW/DCPLANNER ---
Addendum entered by Eula Logan 06/18/21 13:40: [place] w/ [facility] has stated that services will begin Wednesday for this patient. Addendum entered by Eula Logan 06/18/21 09:34: The plan is for this patient to discharge home today: home health order will be faxed to [facility]. Addendum entered by Eula Logan 06/17/21 10:31: Patient is now agreeable to home health services: this will be set up at time of discharge. Original Note: I spoke with this patient regarding discharge plans. Patient stated that she plans to return home at time of discharge. Patient uses a rolling walker and home O2 ([place]). Patient has stated at this time she does not feel that she will need home health services. I will continue to follow up with this patient until medically stable for discharge. Discharge date is unknown at this time.
[2021-06-17] VITALS (13 sets, daily range): BP systolic 113–166; BP diastolic 46–65; PULSE 74–101; RESP 16–21; TEMP 36.4–36.8; O2SAT 93–100; BMI 37.5
[2021-06-17 06:39] LABS: POC Glucose,Bedside 217 (70-110)
[2021-06-17 07:12] LABS: MANUAL DIFFERENTIAL MANUAL DIFFERENTIAL (MANUAL DIFF)
[2021-06-17 07:20] LABS: Basophils % 0.4 % (0.1-2.0); Eosinophils # 0.2 K/mm3 (0.0-0.4); Eosinophils % 1.8 % (0.1-12.0); Hematocrit 42.2 % (37.0-47.0); Hemoglobin 13.6 g/dL (12.2-16.2); Lymphocytes # 1.7 K/mm3 (0.7-4.5); Lymphocytes % 17.8 % (10-50); Mean Corpuscular HGB Conc 32.1 g/dL (31.8-35.4); Mean Corpuscular Hemoglobin 30.1 pg (27.0-31.2); Mean Corpuscular Volume 93.8 fl (81-99); Mean Platelet Volume 8.9 fl (7.4-10.4); Monocytes # 0.6 K/mm3 (0.1-1.0); Monocytes % 6.2 % (1.7-9.3); Neutrophils # 7.1 K/mm3 (1.8-7.8); Neutrophils % 73.8 % (37.0-80.0); Platelet Count 198 K/mm3 (142-424); Red Cell Distribution Width 13.3 % (11.5-17.5); White Blood Count 9.7 K/mm3 (4.8-10.8)
[2021-06-17 07:36] LABS: Anion Gap 9.6 mEq/L (5-15); Blood Urea Nitrogen 55 mg/dl (7-17); Calcium 7.9 mg/dl (8.4-10.2); Carbon Dioxide 26 mmol/L (22.0-30.0); Chloride 104 mmol/L (98-107); Creatinine Clearance Estimated 49 mL/min (50-200); Estimated Glomerular Filt Rate 31 ml/min (>60); GFR (African American) 37 ML/MIN (>60); Glucose 236 mg/dl (74-100); Potassium 4.6 mmoL/L (3.5-5.1); Sodium 135 mmol/L (136-145)
[2021-06-17 08:44] LABS: Lymphocytes % 9 % (10-50); Monocytes % 5 % (2-9); Neutrophils % 86 % (42-76); Total Cells Counted 100
[2021-06-17 08:45] LABS: Platelet Estimate Normal
--- NOTE | 2021-06-17 09:48 | HMH.ACPN2 ---
Internal Medicine - PN: Subj *Date: 06/17/21 *Time: 09:48 Interval history: She is doing quite well and will soon be ready for discharge. With her positive blood culture with staph she will need continued antibiotics. I hope we can get her Zyvox to take p.o. as an outpatient. We will initiate work on that. Her respiratory status is extremely stable. Her renal function has improved dramatically. Exam Vital signs and Labs for Last 24 Hours: Temp Pulse Resp BP Pulse Ox 97.7 F 96 H 16 166/51 H 95 06/17/21 08:00 06/17/21 08:00 06/17/21 08:00 06/17/21 08:00 06/17/21 08:00 Laboratory Results - last 24 hr 06/17/21 06:24: POC Glucose 217 H 06/17/21 06:39: WBC 9.7, RBC 4.50, Hgb 13.6, Hct 42.2, MCV 93.8, MCH 30.1, MCHC 32.1, RDW 13.3, Plt Count 198, MPV 8.9, Neut % (Auto) 73.8, Lymph % (Auto) 17.8, [place] % (Auto) 6.2, Eos % (Auto) 1.8, Baso % (Auto) 0.4, Neut # (Auto) 7.1, Lymph # (Auto) 1.7, [place] # (Auto) 0.6, Eos # (Auto) 0.2, Baso # (Auto) 0.0, Total Counted 100, Neutrophils % (Manual) 86 H, Lymphocytes % (Manual) 9 L, Monocytes % (Manual) 5, Platelet Estimate Normal 06/17/21 06:39: Sodium 135 L, Potassium 4.6, Chloride 104, Carbon Dioxide 26, Anion Gap 9.6, BUN 55 H D, Creatinine 1.60 H D, Estimated Creat Clear 49, Estimated GFR 31 L, Est GFR ( Amer) 37 L D, Glucose 236 H, Calcium 7.9 L I & O for Last 24 hours: Intake & Output 06/14/21 06/15/21 06/16/21 06/17/21 11:59 11:59 11:59 11:59 Intake Total 1080 / 1080 1320 / 1320 Output Total 190 / 190 1950 / 1950 4350 / 4350 Balance -190 / -190 -870 / -870 -3030 / -3030 Weight 243 lb 12.8 oz 250 lb 14.177 oz 253 lb 9.6 oz Microbiology Reports for the Last 24 Hours: Microbiology 06/14/21 23:25 Blood Blood Culture - Preliminary Gram Positive Cocci 06/14/21 23:25 Blood Blood Culture - Preliminary Gram Positive Cocci - Constitutional no acute distress - *Routine HEENT Exam Head: Present: normocephalic Eye: Present: EOMI, PERRL ENT: Present: mucous membranes moist - *Routine Neck Exam Present: supple. Absent: lymphadenopathy - *Routine Respiratory Exam Present: decreased breath sounds, CTA bilaterally - *Routine Cardiovascular Exam Present: RRR - *Routine Abdominal Exam Present: soft, normoactive bowel sounds, obese. Absent: tenderness - *Routine Extremities Exam Absent: cyanosis, clubbing, edema - *Routine Skin Exam Present: warm. Absent: rash - *Routine Neurological Exam Present: alert, oriented X3 Assessment and Plan (1) Bacteremia due to coagulase-negative Staphylococcus Status: Acute Category: Medical Code(s): R78.81 - Bacteremia; B95.7 - Other staphylococcus as the cause of diseases classified elsewhere (2) Asthmatic bronchitis Status: Acute Category: Medical Code(s): J45.909 - Unspecified asthma, uncomplicated (3) Type 2 diabetes mellitus Status: Acute Category: Medical Code(s): E11.9 - Type 2 diabetes mellitus without complications (4) Renal insufficiency Status: Acute Category: Medical Code(s): N28.9 - Disorder of kidney and ureter, unspecified (5) Hypertension Status: Acute Category: Medical Code(s): I10 - Essential (primary) hypertension (6) Generalized weakness Status: Acute Category: Medical Code(s): R53.1 - Weakness - Assessment and plan all Dx Assessment and Plan for all problems:: Velazquez catheter. Home soon on Zyvox.
--- NOTE | 2021-06-17 15:11 | PC.NURSE ---
Morales removed per d/c order. Small blood clot in urine from morales noted. Urine pink tinged but no avtive bleeding noted. Patient denies any pain. Possible trauma when transferring from bed to chair to bathroom. Patient able to void after morales removed with no pain noted.
[2021-06-18] VITALS: BP 127/43; PULSE 88; PULSE 90; RESP 18; TEMP 36.9; O2SAT 97
[2021-06-18 04:00] VITALS: BP 164/89; PULSE 100; PULSE 80; RESP 20; TEMP 36.5; O2SAT 96
[2021-06-18 04:59] VITALS: BMI 37.5
[2021-06-18 05:25] VITALS: PULSE 79; O2SAT 95
[2021-06-18 06:42] LABS: MANUAL DIFFERENTIAL MANUAL DIFFERENTIAL (MANUAL DIFF)
[2021-06-18 06:51] LABS: Basophils % 0.3 % (0.1-2.0); Eosinophils # 0.3 K/mm3 (0.0-0.4); Eosinophils % 2.7 % (0.1-12.0); Hematocrit 43.4 % (37.0-47.0); Hemoglobin 13.6 g/dL (12.2-16.2); Lymphocytes # 1.9 K/mm3 (0.7-4.5); Lymphocytes % 20.2 % (10-50); Mean Corpuscular HGB Conc 31.4 g/dL (31.8-35.4); Mean Corpuscular Hemoglobin 30.2 pg (27.0-31.2); Mean Corpuscular Volume 96.1 fl (81-99); Mean Platelet Volume 9.1 fl (7.4-10.4); Monocytes # 0.6 K/mm3 (0.1-1.0); Monocytes % 6.1 % (1.7-9.3); Neutrophils # 6.6 K/mm3 (1.8-7.8); Neutrophils % 70.7 % (37.0-80.0); Platelet Count 218 K/mm3 (142-424); Red Blood Count 4.52 M/mm3 (4.20-5.40); Red Cell Distribution Width 13.4 % (11.5-17.5); White Blood Count 9.3 K/mm3 (4.8-10.8)
[2021-06-18 07:05] LABS: Anion Gap 10.4 mEq/L (5-15); Blood Urea Nitrogen 37 mg/dl (7-17); Calcium 8.1 mg/dl (8.4-10.2); Carbon Dioxide 25 mmol/L (22.0-30.0); Chloride 106 mmol/L (98-107); Creatinine Clearance Estimated 66 mL/min (50-200); Estimated Glomerular Filt Rate 43 ml/min (>60); GFR (African American) 52 ML/MIN (>60); Glucose 179 mg/dl (74-100); Potassium 4.4 mmoL/L (3.5-5.1); Sodium 137 mmol/L (136-145)
[2021-06-18 07:50] VITALS: BP 141/80; PULSE 98; RESP 18; TEMP 36.4; O2SAT 95
[2021-06-18 08:00] VITALS: PULSE 110
--- NOTE | 2021-06-18 08:26 | HMH.ACPN2 ---
Internal Medicine - PN: Subj *Date: 06/18/21 *Time: 08:26 Interval history: Patient states she is going home today. She does feel like going home. She says wheezing is very minimal. She has been up in the room. She is eating without difficulty. She is afebrile and O2 sats are 95% on oxygen at 2 L/min. Patient does have home O2. Blood cultures are positive x2 with ID pending. CBC this morning shows a normal white blood cell count. Blood chemistries show an improved continued improvement with renal function with a BUN of 37 and creatinine 1.2. Sodium is normal at 137 potassium 4.4. Exam Vital signs and Labs for Last 24 Hours: Temp Pulse Resp BP Pulse Ox 97.5 F L 98 H 18 141/80 H 95 06/18/21 07:50 06/18/21 07:50 06/18/21 07:50 06/18/21 07:50 06/18/21 07:50 Laboratory Results - last 24 hr 06/17/21 06:39: Total Counted 100, Neutrophils % (Manual) 86 H, Lymphocytes % (Manual) 9 L, Monocytes % (Manual) 5, Platelet Estimate Normal 06/18/21 06:13: WBC 9.3, RBC 4.52, Hgb 13.6, Hct 43.4, MCV 96.1, MCH 30.2, MCHC 31.4 L, RDW 13.4, Plt Count 218, MPV 9.1, Neut % (Auto) 70.7, Lymph % (Auto) 20.2, [place] % (Auto) 6.1, Eos % (Auto) 2.7, Baso % (Auto) 0.3, Neut # (Auto) 6.6, Lymph # (Auto) 1.9, [place] # (Auto) 0.6, Eos # (Auto) 0.3, Baso # (Auto) 0.0 06/18/21 06:13: Sodium 137, Potassium 4.4, Chloride 106, Carbon Dioxide 25, Anion Gap 10.4, BUN 37 H D, Creatinine 1.20 H D, Estimated Creat Clear 66, Estimated GFR 43 L, Est GFR ( Amer) 52 L D, Glucose 179 H D, Calcium 8.1 L I & O for Last 24 hours: Intake & Output 06/15/21 06/16/21 06/17/21 03/02/22 11:59 11:59 11:59 11:59 Intake Total 1080 / 1080 1320 / 1320 2012 Output Total 190 / 190 1950 / 1950 5750 / 5750 500 / 500 Balance -190 / -190 -870 / -870 -4430 / -4430 1513 / 1513 Weight 243 lb 12.8 oz 250 lb 14.177 oz 253 lb 9.6 oz 253 lb 9.6 oz Microbiology Reports for the Last 24 Hours: Microbiology 06/14/21 23:25 Blood Blood Culture - Preliminary Gram Positive Cocci 06/14/21 23:25 Blood Blood Culture - Preliminary Gram Positive Cocci - Constitutional no acute distress Comments: Sitting on the bedside eating her breakfast. She appears comfortable and speaks without dyspnea - *Routine Respiratory Exam Present: wheezes (Rare and expiratory wheeze) - *Routine Cardiovascular Exam Present: RRR - *Routine Abdominal Exam Present: soft, normoactive bowel sounds. Absent: tenderness - *Routine Extremities Exam Absent: edema, calf tenderness Assessment and Plan (1) Bacteremia due to coagulase-negative Staphylococcus Status: Acute Category: Medical Code(s): R78.81 - Bacteremia; B95.7 - Other staphylococcus as the cause of diseases classified elsewhere (2) Asthmatic bronchitis Status: Acute Category: Medical Code(s): J45.909 - Unspecified asthma, uncomplicated (3) Type 2 diabetes mellitus Status: Acute Category: Medical Code(s): E11.9 - Type 2 diabetes mellitus without complications (4) Renal insufficiency Status: Acute Category: Medical Code(s): N28.9 - Disorder of kidney and ureter, unspecified (5) Hypertension Status: Acute Category: Medical Code(s): I10 - Essential (primary) hypertension (6) Generalized weakness Status: Acute Category: Medical Code(s): R53.1 - Weakness - Assessment and plan all Dx Assessment and Plan for all problems:: Plan is for patient to go home today with p.o. antibiotic.
--- NOTE | 2021-06-18 09:57 | HMH.PHAINT ---
Discharge counseling complete. Informed pt of new meds, purpose, hwo to take, and potential side effects. Pt understood and had no questions or concerns
--- NOTE | 2021-06-18 10:00 | PC.NURSE ---
Pt's daughter is on her way from [facility] to pick her up.
[2021-06-18 10:46] LABS: Eosinophils % 1 % (0-3); Lymphocytes % 26 % (10-50); Monocytes % 4 % (2-9); Neutrophils % 69 % (42-76); Platelet Estimate Normal; RBC Morphology Normal; Total Cells Counted 100
[2021-06-18 11:08] VITALS: BP 157/87; PULSE 93; RESP 18; TEMP 36.4; O2SAT 100
[2021-06-18 12:29] LABS: POC Glucose,Bedside 295 (70-110)
[2021-06-18 12:29] LABS: POC Glucose,Bedside 289 (70-110)
[2021-06-18 12:29] LABS: POC Glucose,Bedside 161 (70-110)
--- NOTE | 2021-06-20 10:43 | CARE MANAGER ---
CM called to discuss post discharge status with patient. 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 She feels she is doing so wel that she may not even need HH services now. I explained that she may want to let them do the assessment and do a little therapy if they think it is necessary. She states that she is doing well and has no known needs at this time.
--- NOTE | 2021-06-22 22:36 | HMH.DCSUM ---
General - General Admission date:: 06/14/21 Discharge date: 06/18/21 HPI HPI: This 80-year-old white female presented in the emergency room and was admitted. She states that since she has not felt well. She has been short of breath and congested. She has a history of lung disease being a heavy smoker in the past. She has, however, not smoked for 40 years. She is normally seen in the office of Dr. Lake Gonzalez in [place]. She was seen in his office by his nurse practitioner a week or so ago. The patient recently finished a course of prednisone. She regularly uses albuterol nebulizers at home as well as nasal O2. In the emergency room there was concern for possible pneumonia. She has had a cough but is not having much productivity. With her symptoms hanging on she states that she got tired of hearing Why don't you go to [place]? from a number of sources. Additionally complicating her problem is renal failure. She sees Dr. Morgan, apple thinner. She last saw him June 12 and was taken off diuretics. Hospital Course Hospital Course: The patient was admitted and started on antibiotics and nebulizer treatments. A Velazquez catheter was placed and greater than 500 cc of urine returned. This was left in place to assist with abnormal renal function. Her wheezing did improve and her oxygen saturations were in the 90s on 2 L. Her white blood cell count normalized. Vancomycin was added to her Rocephin and Zithromax due to positive blood cultures with Staphylococcus capitis, and she was on prednisone and duo nebs as well. Her renal function improved dramatically as did her respiratory status. By 06/18/2021, she was feeling much better and was up in the room and eating without difficulty. She was afebrile and her oxygen saturations were normal on 2 L. She had home oxygen and wanted to be discharged. She was stable to be discharged home on Zyvox and will follow up with Dr. Emery. Objective Vital signs: Temp Pulse Resp BP Pulse Ox 97.5 F L 93 H 18 157/87 H 100 06/18/21 11:08 06/18/21 11:08 06/18/21 11:08 06/18/21 11:08 06/18/21 11:08 Narrative: - Constitutional no acute distress - *Routine HEENT Exam Head: Present: normocephalic Eye: Present: EOMI, PERRL ENT: Present: mucous membranes moist. Absent: dentition normal (Edentulous with dentures) - *Routine Neck Exam Present: supple. Absent: carotid bruit, lymphadenopathy - *Routine Respiratory Exam Present: decreased breath sounds, rales (Few bibasilar) - *Routine Cardiovascular Exam Present: RRR - *Routine Abdominal Exam Present: soft, normoactive bowel sounds, obese. Absent: tenderness - *Routine Rectal Exam Rectal:: deferred - *Routine Genitalia Exam Genitalia:: deferred - *Routine Extremities Exam Absent: cyanosis, clubbing, edema - *Routine Skin Exam Present: warm. Absent: rash - *Routine Neurological Exam Present: alert, oriented X3. Absent: altered mental status Results Labs on day of discharge: Preliminary micro results at discharge 06/14/21 23:25 Blood Culture - Preliminary Blood Staphylococcus capitis 06/14/21 23:25 Blood Culture - Preliminary Blood Staphylococcus capitis DS: Diagnosis - Discharge Diagnosis (1) Bacteremia due to coagulase-negative Staphylococcus Status: Acute (2) Asthmatic bronchitis Status: Acute (3) Type 2 diabetes mellitus Status: Acute (4) Renal insufficiency Status: Acute (5) Hypertension Status: Acute (6) Generalized weakness Status: Acute Discharge Plan - Patient Discharge Instructions ACTIVITY: Limited activity DIET: advance to your usual diet Patient Instructions: Pneumonia-Adult, DI for Kidney Failure, DI for Pneumonia -- Adult, DI for Muscle Weakness, DI for Bacteremia-Adult - Follow up Plan Follow up with: Danish Emery MD [Staff Physician] - 06/24/21 11:15 am Disposition: Home Health Service
== END 2021-06-18 11:50 | disposition home health service (06) | DRG 202 ==
LOC: ER 19:39 → 2ND 22:35
PROVIDERS: Emergency Medicine; Admitting Provider Family Medicine; Emergency Provider Emergency Medicine; PCP Family Medicine; Visit Provider Family Medicine
DX: J45.909 Unspecified asthma, uncomplicated (principal); R78.81 Bacteremia; I13.0 Hypertensive heart and chronic kidney disease with heart failure and stage 1 through stage 4 chronic kidney disease, or unspecified chronic kidney disease; Z79.4 Long term (current) use of insulin; Z79.899 Other long term (current) drug therapy; E78.5 Hyperlipidemia, unspecified; Z87.891 Personal history of nicotine dependence; E03.9 Hypothyroidism, unspecified; M19.90 Unspecified osteoarthritis, unspecified site; J44.9 Chronic obstructive pulmonary disease, unspecified; E11.22 Type 2 diabetes mellitus with diabetic chronic kidney disease; N18.9 Chronic kidney disease, unspecified; I50.9 Heart failure, unspecified
CPT/HCPCS: 36415; 71045; 80048; 80053; 81001; 82962; 83036; 83880; 84443; 84484; 85007; 85014; 85018; 85025; 85048; 85049; 86738; 87040; 87077; 87186; 93005; 94640; 94760; 94761; 96365; 96366; 96367; 97162; 97165; 99284; C9803; J0456; J0696; U0003; U0005

== ENCOUNTER 2021-07-18 13:02 | Emergency (ER) | payer MEDICARE, SELFPAY ==
[2021-07-18 13:03] VITALS: BP 142/79; PULSE 92; RESP 22; TEMP 36.5; O2SAT 94; BMI 42.0
--- NOTE | 2021-07-18 13:24 | XR_ITS ---
FINAL REPORT CLINICAL HISTORY: sob, cough COMPARISON: 06/14/2021 FINDINGS: SINGLE VIEW CHEST The heart is normal in size. The mediastinum is unremarkable. There are mild bibasilar opacities, favor atelectasis over pneumonia. There is no pneumothorax. IMPRESSION: Bibasilar opacities, favor atelectasis over pneumonia. Reviewed, Interpreted and Dictated by Donta Cummings III, MD Transcribed by Mayte Galeano Authenticated by Donta Cummings III, MD on 07/18/2021 02:55:36 PM [facility]
--- NOTE | 2021-07-18 13:26 | HMH.EDGENADL ---
ED Disposition Clinical Impression: Acute bronchitis Qualifiers: Bronchitis organism: unspecified organism Qualified Code(s): J20.9 - Acute bronchitis, unspecified Disposition: Home, Self-Care Condition on Discharge: Good Instructions: DI for Acute Bronchitis Additional Instructions: Zithromax and prednisone as prescribed. Continue your nebulizer treatments at home. Follow-up with your primary care provider in the office next week. Additional instructions for ACUTE BRONCHITIS: Use Tylenol or Ibuprofen for pain or fever. Rest and plenty of fluids. Return immediately if you have an uncontrollable fever greater than 102 degrees, increasing difficulty breathing, persistent vomiting. Prescriptions: predniSONE [Prednisone 20mg Tab] 20 mg PO BID #10 tab Transmission Status: Pending to [id number] Azithromycin [Zithromax 250mg tab] 250 mg PO DAILY #4 tab Transmission Status: Pending to [id number] Referrals: Carlos Gonzalez MD [Primary Care Provider] - - Critical Care Critical Care Time: No Attestation: On 07/18/21, the high probability of a clinically significant, sudden or life threatening deterioration of the following system(s) required my full and direct attention, intervention and personal management. The time I documented below is in addition to time spent performing reported procedures but includes the following listed in this critical care notation. Medical Decision Making - Oneal Inquiry Pt receiving controlled substance: No Vital Signs: 07/18/21 13:03 07/18/21 13:31 07/18/21 15:44 Temperature 97.7 F Temperature Source Oral Pulse Rate 90 85 Pulse Rate [Radial] 92 H Respiratory Rate 22 17 18 Blood Pressure 153/104 H 125/57 L Blood Pressure [Right Arm] 142/79 H Blood Pressure Mean 109 79 Blood Pressure Mean [Right Arm] 100 Blood Pressure Position [Right Arm] Sitting 02 Sat by Pulse Oximetry 94 L 96 97 Oxygen Delivery Method Nasal Cannula Nasal Cannula Nasal Cannula Oxygen Flow Rate (LPM) 2 2 2 - Lab Data Lab Results 07/18/21 14:10: WBC 9.3, RBC 4.81, Hgb 14.9, Hct 45.7, MCV 95.1, MCH 31.0, MCHC 32.6, RDW 13.7, Plt Count 213, MPV 7.9, Neut % (Auto) 77.0, Lymph % (Auto) 15.4, [place] % (Auto) 4.3, Eos % (Auto) 2.8, Baso % (Auto) 0.5, Neut # (Auto) 7.1, Lymph # (Auto) 1.4, [place] # (Auto) 0.4, Eos # (Auto) 0.3, Baso # (Auto) 0.0 07/18/21 14:10: Sodium 133 L, Potassium 5.0, Chloride 96 L, Carbon Dioxide 29, Anion Gap 13.0, BUN 42 H, Creatinine 1.70 H, Estimated Creat Clear 22, Estimated GFR 29 L, Est GFR ( Amer) 35 L, Glucose 294 H, Calcium 9.1, Total Bilirubin 0.8, AST 37 H, ALT 25, Alkaline Phosphatase 83, Troponin I 0.02, Total Protein 6.5, Albumin 4.1, Globulin 2.4, Albumin/Globulin Ratio 1.7 07/18/21 14:10: Lactate 1.5 07/18/21 14:10: NT-Pro-B Natriuret Pep 176 07/18/21 14:20: Procalcitonin 0.145 07/18/21 14:48: SARS-CoV-2 (PCR) Not detected, Influenza A Untype (PCR) Not detected, Influenza Type B (PCR) Not detected Result diagrams: 07/18/21 14:10 07/18/21 14:10 Orders (Tests/Meds): ED MEDICATIONS Generic Name Dose Route Start Last Admin Trade Name Freq PRN Reason Stop Dose Admin Albuterol/Ipratropium 3 ml 07/18/21 20:00 Ipratropium/Albuterol 3 Ml [facility] 08/17/21 19:59 QIDRT KISHOR Azithromycin 500 mg/ Sodium 250 mls @ 250 mls/hr 07/18/21 15:15 07/18/21 15:19 Chloride IV 08/01/21 15:14 250 mls/hr Q24H KISHOR Administration Discontinued Medications Generic Name Dose Route Start Last Admin Trade Name Freq PRN Reason Stop Dose Admin Albuterol/Ipratropium 3 ml 07/18/21 13:33 Ipratropium/Albuterol 3 Ml Neb 07/18/21 13:34 ONCE ONE Methylprednisolone Sodium Succinate 125 mg 07/18/21 15:04 07/18/21 15:19 Methylprednisolone Sod Succ 125mg Vial IV 07/18/21 15:05 125 mg ONCE ONE Administration ORDERS Category Date Time Status Troponin I Q3H Lab 07/18/21 16:30 Ordered
[2021-07-18 13:31] VITALS: BP 153/104; PULSE 90; RESP 17; O2SAT 96
[2021-07-18 14:20] LABS: Basophils % 0.5 % (0.1-2.0); Eosinophils # 0.3 K/mm3 (0.0-0.4); Eosinophils % 2.8 % (0.1-12.0); Hematocrit 45.7 % (37.0-47.0); Hemoglobin 14.9 g/dL (12.2-16.2); Lymphocytes # 1.4 K/mm3 (0.7-4.5); Lymphocytes % 15.4 % (10-50); Mean Corpuscular HGB Conc 32.6 g/dL (31.8-35.4); Mean Corpuscular Volume 95.1 fl (81-99); Mean Platelet Volume 7.9 fl (7.4-10.4); Monocytes # 0.4 K/mm3 (0.1-1.0); Monocytes % 4.3 % (1.7-9.3); Neutrophils # 7.1 K/mm3 (1.8-7.8); Platelet Count 213 K/mm3 (142-424); Red Blood Count 4.81 M/mm3 (4.20-5.40); Red Cell Distribution Width 13.7 % (11.5-17.5); White Blood Count 9.3 K/mm3 (4.8-10.8)
[2021-07-18 14:38] LABS: Lactic Acid 1.5 mmol/L (0.7-2.1)
[2021-07-18 14:49] LABS: NT Pro Brain Natriuretic Pep. 176 pg/mL (0-450)
[2021-07-18 14:55] LABS: Coronavirus 19, PCR Not Detected (NotDetected); Influenza A, PCR Not Detected (NotDetected); Influenza B, PCR Not Detected (NotDetected)
[2021-07-18 15:10] VITALS: PULSE 59; PULSE 60
[2021-07-18 15:15] LABS: Procalcitonin 0.145 ng/mL (0.0-2.0)
[2021-07-18 15:26] LABS: Chloride 96 mmol/L (98-107); Sodium 133 mmol/L (136-145)
[2021-07-18 15:28] LABS: Blood Urea Nitrogen 42 mg/dl (7-17); Creatinine Clearance Estimated 22 mL/min (50-200); Estimated Glomerular Filt Rate 29 ml/min (>60); GFR (African American) 35 ML/MIN (>60)
[2021-07-18 15:29] LABS: Alanine Aminotransferase 25 U/L (12-78); Albumin Level 4.1 g/dl (3.5-5.0); Albumin/Globulin Ratio 1.7 (1.1-1.8); Alkaline Phosphatase 83 U/L (38-126); Aspartate Amino Transferase 37 U/L (14-36); Bilirubin,Total 0.8 mg/dl (0.2-1.3); Calcium 9.1 mg/dl (8.4-10.2); Carbon Dioxide 29 mmol/L (22.0-30.0); Globulin 2.4 g/dL (1.3-3.2); Glucose 294 mg/dl (74-100); Total Protein,Serum 6.5 g/dl (6.3-8.2)
[2021-07-18 15:41] LABS: Troponin I 0.02 ng/ml (0.00-0.034)
[2021-07-18 15:44] VITALS: BP 125/57; PULSE 85; RESP 18; O2SAT 97
[2021-07-18 16:20] VITALS: BP 136/68; PULSE 78; RESP 20; TEMP 36.6; O2SAT 96
== END 2021-07-18 16:23 | disposition home or self-care (01) ==
PROVIDERS: Emergency Provider Emergency Medicine; PCP Family Medicine
DX: J20.9 Acute bronchitis, unspecified (principal); J44.1 Chronic obstructive pulmonary disease with (acute) exacerbation; E11.9 Type 2 diabetes mellitus without complications; I10 Essential (primary) hypertension; E03.9 Hypothyroidism, unspecified; E78.5 Hyperlipidemia, unspecified; Z99.81 Dependence on supplemental oxygen; Z79.899 Other long term (current) drug therapy
CPT/HCPCS: 36415; 71045; 80053; 83605; 83880; 84145; 84484; 85025; 87040; 96365; 96374; 96375; 99284; C9803; J0456; U0003; U0005

== ENCOUNTER → 2021-08-20 12:05 | Outpatient (CLI) | payer MEDICARE, SELFPAY ==
--- NOTE | 2021-08-20 12:09 | XR_ITS ---
FINAL REPORT CLINICAL HISTORY: HIP PAIN DUE TO FALL FINDINGS: 2 views of the left hip and an AP pelvis were obtained. There is no acute fracture or dislocation. There are mild degenerative changes of both hips and lower lumbar spine. There are no soft tissue abnormalities. IMPRESSION: No acute bony abnormality. Reviewed, Interpreted and Dictated by Donta Cummings III, MD Transcribed by Zach Graham Authenticated by Donta Cummings III, MD on 08/20/2021 12:44:46 PM [facility]
== END ==
PROVIDERS: Visit Provider Nurse Practitioner Family
DX: E66.01 Morbid (severe) obesity due to excess calories (principal); M25.552 Pain in left hip; Z68.42 Body mass index [BMI] 45.0-49.9, adult
CPT/HCPCS: 73502

== ENCOUNTER → 2021-08-28 13:41 | Outpatient (CLI) | payer MEDICARE, SELFPAY ==
--- NOTE | 2021-08-28 13:45 | MR_ITS ---
FINAL REPORT CLINICAL HISTORY: HEADACHE X 2WEEKS , FALLING FREQUENLY HX OF SURGERY ON BRAIN TUMOR NON CANCEROUS 2006 FINDINGS: Multiplanar MR imaging of the brain was performed without contrast. Motion artifact is identified on many of the images. There is mild age-appropriate atrophy. There are scattered foci of increased T2 signal in the cerebral white matter that have a nonspecific appearance but likely represent severe chronic ischemic/gliotic changes. There is an area of encephalomalacia in the left cerebellar hemisphere consistent with postoperative change. There is no evidence of intracranial hemorrhage or mass. No abnormal ventricular dilatation is identified. No abnormal extra-axial fluid collection is seen. No abnormality is seen on the diffusion weighted images. Normal major vessel vascular flow voids are seen. IMPRESSION: Age-appropriate atrophy and severe chronic ischemic/gliotic changes. Postoperative change in the left cerebellar hemisphere. Reviewed, Interpreted and Dictated by Donta Cummings III, MD Transcribed by Mayte Galeano Authenticated by Donta Cummings III, MD on 08/28/2021 04:02:[address] [facility]
== END ==
PROVIDERS: PCP Nurse Practitioner Family; Visit Provider Family Medicine
DX: R51.9 Headache, unspecified (principal)
CPT/HCPCS: 70551

== ENCOUNTER 2021-09-20 20:06 | Observation (INO) | payer MEDICARE, SELFPAY ==
[2021-09-20] VITALS (11 sets, daily range): BP systolic 81–127; BP diastolic 52–71; PULSE 78–95; RESP 16–24; TEMP 36.6; O2SAT 91–99; BMI 38.9; BMI 42.5
--- NOTE | 2021-09-20 20:53 | HMH.EDNVD ---
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 The time I documented below is in addition to time spent performing reported procedures but includes the following listed in this critical care notation. Medical Decision Making - Medical Records Medical records reviewed: Yes: I reviewed the patient's medical records. - Oneal Inquiry Pt receiving controlled substance: No Vital Signs: 09/20/21 20:07 09/20/21 20:58 09/20/21 21:00 Temperature 97.8 F Temperature Source Oral Pulse Rate 89 Pulse Rate [Orthostatic Lying Right Brachial] 89 Pulse Rate [Orthostatic Sitting Right Brachial] 86 Pulse Rate [Right Radial] 89 Respiratory Rate 24 16 Blood Pressure 113/59 L Blood Pressure [Orthostatic Lying Right Arm] 113/59 L Blood Pressure [Orthostatic Sitting Right Arm] 94/65 L Blood Pressure [Right Arm] 108/64 L Blood Pressure Mean 77 Blood Pressure Mean [Right Arm] 78 Blood Pressure Source [Right Arm] Manual Cuff/ Auscultation Blood Pressure Position [Right Arm] Sitting 02 Sat by Pulse Oximetry 91 L 98 Oxygen Delivery Method Nasal Cannula Nasal Cannula Oxygen Flow Rate (LPM) 2 3 09/20/21 21:02 09/20/21 21:04 09/20/21 21:25 Temperature Temperature Source Pulse Rate 86 89 83 Pulse Rate [Orthostatic Lying Right Brachial] Pulse Rate [Orthostatic Sitting Right Brachial] Pulse Rate [Right Radial] Respiratory Rate 17 16 16 Blood Pressure 94/65 L 114/61 127/70 Blood Pressure [Orthostatic Lying Right Arm] Blood Pressure [Orthostatic Sitting Right Arm] Blood Pressure [Right Arm] Blood Pressure Mean 76 69 77 Blood Pressure Mean [Right Arm] Blood Pressure Source [Right Arm] Blood Pressure Position [Right Arm] 02 Sat by Pulse Oximetry 97 97 98 Oxygen Delivery Method Nasal Cannula Nasal Cannula Nasal Cannula Oxygen Flow Rate (LPM) 3 3 3 09/20/21 21:34 09/20/21 21:44 Temperature Temperature Source Pulse Rate 78 88 Pulse Rate [Orthostatic Lying Right Brachial] Pulse Rate [Orthostatic Sitting Right Brachial] Pulse Rate [Right Radial] Respiratory Rate 16 16 Blood Pressure 125/70 107/71 L Blood Pressure [Orthostatic Lying Right Arm] Blood Pressure [Orthostatic Sitting Right Arm] Blood Pressure [Right Arm] Blood Pressure Mean 83 75 Blood Pressure Mean [Right Arm] Blood Pressure Source [Right Arm] Blood Pressure Position [Right Arm] 02 Sat by Pulse Oximetry 98 99 Oxygen Delivery Method Nasal Cannula Nasal Cannula Oxygen Flow Rate (LPM) 3 3 - Lab Data Lab results reviewed: Yes: I reviewed the patient's lab results. Lab Results 09/20/21 20:51: SARS-CoV-2 (PCR) Not detected, Influenza A Untype (PCR) Not detected, Influenza Type B (PCR) Not detected 09/20/21 21:00: WBC 8.8, RBC 5.40, Hgb 16.1, Hct 50.8 H, MCV 94.1, MCH 29.8, MCHC 31.6 L, RDW 14.0, Plt Count 338, MPV 8.1, Neut % (Auto) 66.8, Lymph % (Auto) 21.8, [place] % (Auto) 6.2, Eos % (Auto) 3.5, Baso % (Auto) 1.6, Neut # (Auto) 5.9, Lymph # (Auto) 1.9, [place] # (Auto) 0.6, Eos # (Auto) 0.3, Baso # (Auto) 0.1 09/20/21 21:00: Sodium 131 L, Potassium 5.5 H, Chloride 96 L, Carbon Dioxide 25, Anion Gap 15.5 H, BUN 90 H, Creatinine 2.10 H, Estimated Creat Clear 32, Estimated
--- NOTE | 2021-09-20 21:18 | ECG_ITS ---
APPROVED REPORT Exam: Resting ECG HR:92 bpm ECG Measurements Heart Rate 92 AXES NE 180 P -9 QRSd 149 QRS -35 QT 377 T 113 QTc 427 Conclusion SINUS RHYTHM LEFT AXIS DEVIATION [QRS AXIS < -30] LEFT BUNDLE BRANCH BLOCK [120+ ms QRS DURATION, 80+ ms Q/S IN V1/V2, 85+ ms R IN I/aVL/V5/V6] ABNORMAL ECG UNCONFIRMED REPORT Electronically signed by : Rohan Valencia MD 09/21/2021 21:30:58
[2021-09-20 21:19] LABS: Microscopic, Urine URINE MICROSCOPIC (MICROSCOPIC)
[2021-09-20 21:19] LABS: Basophils # 0.1 K/mm3 (0-0.2); Basophils % 1.6 % (0.1-2.0); Eosinophils # 0.3 K/mm3 (0.0-0.4); Eosinophils % 3.5 % (0.1-12.0); Hematocrit 50.8 % (37.0-47.0); Hemoglobin 16.1 g/dL (12.2-16.2); Lymphocytes # 1.9 K/mm3 (0.7-4.5); Lymphocytes % 21.8 % (10-50); Mean Corpuscular HGB Conc 31.6 g/dL (31.8-35.4); Mean Corpuscular Hemoglobin 29.8 pg (27.0-31.2); Mean Corpuscular Volume 94.1 fl (81-99); Mean Platelet Volume 8.1 fl (7.4-10.4); Monocytes # 0.6 K/mm3 (0.1-1.0); Monocytes % 6.2 % (1.7-9.3); Neutrophils # 5.9 K/mm3 (1.8-7.8); Neutrophils % 66.8 % (37.0-80.0); Platelet Count 338 K/mm3 (142-424); White Blood Count 8.8 K/mm3 (4.8-10.8)
[2021-09-20 21:20] LABS: Appearance,Urine CLEAR (Clear); Bilirubin,Urine Negative (Negative); Blood, Urine Negative (Negative); Color,Urine YELLOW (Yellow); Glucose,Urine (UA) TRACE (Negative); Ketones,Urine Negative (Negative); Leukocyte Esterase,Urine Negative (Negative); Nitrate,Urine Negative (Negative); Protein,Urine Negative (Negative); Urobilinogen,Urine 0.2 EU/dl (0.2)
[2021-09-20 21:32] LABS: Bacteria,Urine Trace /lpf; Squamous Epithelial Cell,Urine Occasional #/hpf (0-5)
[2021-09-20 21:34] LABS: Chloride 96 mmol/L (98-107); Potassium 5.5 mmoL/L (3.5-5.1); Sodium 131 mmol/L (136-145)
[2021-09-20 21:36] LABS: Creatinine Clearance Estimated 32 mL/min (50-200); Estimated Glomerular Filt Rate 22 ml/min (>60); GFR (African American) 27 ML/MIN (>60)
[2021-09-20 21:37] LABS: Alanine Aminotransferase 27 U/L (12-78); Albumin Level 4.2 g/dl (3.5-5.0); Albumin/Globulin Ratio 1.6 (1.1-1.8); Alkaline Phosphatase 80 U/L (38-126); Anion Gap 15.5 mEq/L (5-15); Aspartate Amino Transferase 37 U/L (14-36); Bilirubin,Direct 0.1 mg/dl (0.0-0.4); Bilirubin,Total 0.4 mg/dl (0.2-1.3); Calcium 9.6 mg/dl (8.4-10.2); Carbon Dioxide 25 mmol/L (22.0-30.0); Globulin 2.6 g/dL (1.3-3.2); Glucose 334 mg/dl (74-100); Total Protein,Serum 6.8 g/dl (6.3-8.2)
[2021-09-20 21:38] LABS: Lactic Acid 1.5 mmol/L (0.7-2.1)
[2021-09-20 21:40] LABS: Ammonia < 9 umol/L (9-30)
[2021-09-20 21:41] LABS: Blood Urea Nitrogen 90 mg/dl (7-17)
[2021-09-20 21:42] LABS: C-Reactive Protein 4.6 mg/L (0-4)
[2021-09-20 21:43] LABS: Coronavirus 19, PCR Not Detected (NotDetected); Influenza A, PCR Not Detected (NotDetected); Influenza B, PCR Not Detected (NotDetected)
--- NOTE | 2021-09-20 21:45 | XR_ITS ---
PROCEDURE INFORMATION: Exam: XR Chest Exam date and time: 09/20/2021 10:02 PM Age: 81 years old Clinical indication: Shortness of breath; Additional info: SOB TECHNIQUE: Imaging protocol: XR of the chest. Views: 4 or more views. COMPARISON: CR XR CHEST PORTABLE 07/18/2021 1:29 PM FINDINGS: Lungs: Suspected emphysema. No consolidation. Pleural spaces: No pneumothorax. Heart/Mediastinum: Borderline cardiomegaly which appears stable. Bones/joints: Degenerative changes of the shoulders. IMPRESSION: Chronic changes without acute process.
[2021-09-20 21:46] LABS: Erythrocyte Sedimentation Rate 14 mm/hr (0-30)
--- NOTE | 2021-09-20 21:47 | CT_ITS ---
PROCEDURE INFORMATION: Exam: CT Abdomen And Pelvis Without Contrast Exam date and time: 09/20/2021 9:52 PM Age: 81 years old Clinical indication: Nausea; Additional info: Nausea x 7 days TECHNIQUE: Imaging protocol: Computed tomography of the abdomen and pelvis without contrast. Radiation optimization: All CT scans at this facility use at least one of these dose optimization techniques: automated exposure control; mA and/or kV adjustment per patient size (includes targeted exams where dose is matched to clinical indication); or iterative reconstruction. COMPARISON: CR XR HIP LT 2-3V W/PELVIS 08/20/2021 12:12 PM FINDINGS: Diaphragm: Small hiatal hernia. Liver: Parenchymal enhancement is not evaluated without contrast. No hepatomegaly. Gallbladder and bile ducts: Post cholecystectomy change. Pancreas: Parenchymal enhancement is not evaluated without contrast. No ductal dilation. Spleen: Parenchymal enhancement is not evaluated without contrast. No splenomegaly. Adrenal glands: No mass. Kidneys and ureters: Parenchymal enhancement is not evaluated without contrast. No hydronephrosis. Stomach and bowel: Diverticulosis coli without evidence for diverticulitis. Appendix: No evidence of appendicitis. Intraperitoneal space: No free air. No significant fluid collection. Vasculature: Calcified atherosclerosis. No aneurysm. Lymph nodes: No enlarged lymph nodes. Urinary bladder: No acute abnormality. Reproductive: No acute abnormality. Bones/joints: No acute fracture. Soft tissues: 18 mm fat containing periumbilical hernia. IMPRESSION: No acute findings. Chronic and incidental findings described above.
--- NOTE | 2021-09-20 21:48 | PC.NURSE ---
MD AWARE OF ABNORMAL LABS. PT UPDATED WITH PLAN OF CARE.
[2021-09-20 21:49] LABS: ABG Base Excess -2.7 mmol/L (-2.4-2.3); ABG HCO3 22.8 mmhg (22.0-26.0); ABG Oxygen Saturation 97 % (90-100); ABG PCO2 41.2 mmhg (35.0-45.0); ABG PH 7.36 mmol/L (7.35-7.45); ABG PO2 97.8 mmhg (80-100)
[2021-09-20 21:50] LABS: Allen's Test Acceptable; Source Right Radial
[2021-09-20 21:51] LABS: Troponin I 0.02 ng/ml (0.00-0.034)
[2021-09-20 21:57] LABS: Amylase 51 U/L (30-110); T4 (Thyroxine) 9.3 ug/dl (5.53-11.0)
[2021-09-20 22:02] LABS: Acetone, Serum (Rapid) None Detected (None Detect)
[2021-09-20 22:04] LABS: Lipase 152 U/L (23-300)
[2021-09-20 22:10] LABS: Thyroid Stimulating Hormone 1.18 uIU/mL (0.465-4.68)
--- NOTE | 2021-09-20 22:53 | PC.NURSE ---
pathology supervisor has been called for a room for patient.
--- NOTE | 2021-09-20 23:02 | PC.NURSE ---
Went into patient's room to let the patient and her mother know that the patient would be up for discharge soon. Patient's mother stated Go ahead and get us out of here. If you aren't going to do anything for her there is no point in us being here I told the patient's mother we had to get her discharge papers before she left and she state I know what I can do, I will just walk out of here and began to get up. I told the patient's mother if they were to leave they would have to sign AMA forms. I proceeded to walk to the desk to grab the AMA form out of the filing cabinet as the patient and her mother walk past me. I told the patient they would, again, need to sign the AMA form and the patient's mother stated I know my rights and I ain't filling out that form and began to walk out the door.
--- NOTE | 2021-09-20 23:18 | PC.NURSE ---
PT ARRIVED TO FLOOR VIA STRETCHER FROM W/STAFF @ [phone]
[2021-09-21] VITALS (11 sets, daily range): BP systolic 97–124; BP diastolic 45–67; PULSE 57–90; RESP 16–20; TEMP 36.6–37.1; O2SAT 95–99; BMI 42.1
[2021-09-21 01:59] LABS: Troponin I 0.01 ng/ml (0.00-0.034)
[2021-09-21 04:12] LABS: Basophils # 0.1 K/mm3 (0-0.2); Basophils % 1.3 % (0.1-2.0); Eosinophils # 0.4 K/mm3 (0.0-0.4); Eosinophils % 4.8 % (0.1-12.0); Hematocrit 44.8 % (37.0-47.0); Hemoglobin 14.7 g/dL (12.2-16.2); Lymphocytes % 23.8 % (10-50); Mean Corpuscular HGB Conc 32.8 g/dL (31.8-35.4); Mean Corpuscular Hemoglobin 30.2 pg (27.0-31.2); Mean Corpuscular Volume 91.9 fl (81-99); Mean Platelet Volume 8.2 fl (7.4-10.4); Monocytes # 0.7 K/mm3 (0.1-1.0); Monocytes % 8.1 % (1.7-9.3); Neutrophils # 5.3 K/mm3 (1.8-7.8); Platelet Count 241 K/mm3 (142-424); Red Blood Count 4.87 M/mm3 (4.20-5.40); Red Cell Distribution Width 13.9 % (11.5-17.5); White Blood Count 8.5 K/mm3 (4.8-10.8)
[2021-09-21 04:23] LABS: Anion Gap 11.9 mEq/L (5-15); Calcium 8.7 mg/dl (8.4-10.2); Carbon Dioxide 23 mmol/L (22.0-30.0); Chloride 102 mmol/L (98-107); Creatinine Clearance Estimated 20 mL/min (50-200); Estimated Glomerular Filt Rate 29 ml/min (>60); GFR (African American) 35 ML/MIN (>60); Magnesium 1.9 mg/dl (1.6-2.3); Potassium 4.9 mmoL/L (3.5-5.1); Sodium 132 mmol/L (136-145)
[2021-09-21 04:29] LABS: Glucose 174 mg/dl (74-100)
[2021-09-21 04:30] LABS: Blood Urea Nitrogen 82 mg/dl (7-17)
[2021-09-21 04:35] LABS: Troponin I 0.02 ng/ml (0.00-0.034)
--- NOTE | 2021-09-21 04:47 | PC.NURSE ---
Patient admitted to floor. Patient wears 2l nc continuously, tolerating well sats above 90's. Patient receiving IV maintenance fluids per MAR. Excoriation noted in pawan area. Patient ambulated to the restroom with stand by assist. No complaints expressed at this time.
--- NOTE | 2021-09-21 10:18 | HMH.PHAVTE ---
[facility] Pharmacy VTE Monitoring - Patient Demographics Allergies/Adverse Reactions: Patient Allergies codeine [CODEINE] Allergy (Mild, Verified 06/11/20 13:59) iodine [IODINE] Allergy (Mild, Verified 06/11/20 13:59) latex [LATEX] Allergy (Mild, Verified 06/11/20 13:59) oxycodone [OXYCODONE] Allergy (Mild, Verified 06/11/20 13:59) Sulfa (Sulfonamide Antibiotics) [SULFA (SULFONAMIDE ANTIBIOTICS)] Allergy (Mild, Verified 06/11/20 13:59) PCN Allergy (Mild, Uncoded 05/15/20 10:05) Height: 1.6 m Weight: 107.864 kg Patient Problems: Current Active Problems Type 2 diabetes mellitus (Acute) KYLE (acute kidney injury) (Acute) Obesity (BMI 30-39.9) (Acute) LBBB (left bundle branch block) (Acute) - VTE Risk Labs: VTE Related Lab Results Hgb 14.7 g/dL (12.2-16.2) 09/21/21 04:00 Hct 44.8 % (37.0-47.0) 09/21/21 04:00 Plt Count 241 K/mm3 (142-424) D 09/21/21 04:00 BUN 82 mg/dl (7-17) H 09/21/21 04:00 Creatinine 1.70 mg/dl (0.52-1.04) H 09/21/21 04:00 Estimated Creat Clear 20 mL/min (50-200) 09/21/21 04:00 Was VTE Risk Assessment Performed: Yes VTE Score: 5 VTE Risk Level: Low Risk Clinical Trial Participant: No - Prophylaxis VTE Prophylaxis Ordered?: Yes Types of VTE Prophylaxis: TEDS Knee High Location of Applied Device: Bilateral Lower Extremeties
--- NOTE | 2021-09-21 10:18 | HMH.PHAINT ---
MEDICATION RECONCILIATION COMPLETE USING EXTERNAL PHARMACY FILL HISTORY AND MOST RECENT HOSPITAL DISCHARGE.
[2021-09-21 11:33] LABS: POC Glucose,Bedside 209 (70-110)
--- NOTE | 2021-09-21 13:39 | HMH.HP ---
*Chief complaint: Malaise. Low blood pressure. *History of present illness: The patient has not felt well for the past several days. Her complaints are very nonspecific. She does state that her blood pressure has been low at home. She presented to the emergency room for further evaluation and treatment. She was found to have elevated BUN and creatinine. She is admitted for IV fluids. She does have some ongoing respiratory issues consistent with bronchospasm. She uses nebulizer at home as well as albuterol by [facility]. [facility] History Medical History: Reports:: Asthma, Chronic Obstructive Pulmonary Disease (COPD), Diabetes Mellitus Type 2, Hyperlipidemia, Hypertension Denies:: Cancer, Diabetes Mellitus Type 1, Internal Pacemaker, MRSA, Seizures *Have you ever received a pneumonia vaccine?: Yes *Have you received a flu vaccine this season?: Yes Other Medical History: Reports: Arthritis. Denies: Hypothyroidism, Thyroid Disease Laterality Cases: Left: Other, Bilateral: Tonsillectomy Other Surgeries: Yes: Appendectomy, Cholecystectomy, Colonoscopy (06/17/2020 Dr. Garner. History of tubularl adenomas.), Hysterectomy-Total, Other (Tonsillectomy. Tumor removed left mastoid area.). No: Pacemaker Amputation: No Fractures: No - *Social History Last grade of school completed: 11th or 12th Smoking Status: Former smoker Tobacco Type: cigarettes # Packs/Day (cigarettes): 3 #Yrs smoked (if former smoker): 30 Alcohol Intake: never Substance Use Type: denies use *Occupational Status:: retired Housing: house Household Members: none *Travel in the last 8 weeks: None Family Hx:: Cancer Review of Systems - Constitutional Reports fatigue, Denies chills, Denies fever(s) - ENT Denies dizziness, Denies hoarseness - *Cardiovascular Denies chest pain, Denies leg swelling - *Respiratory Reports chest congestion (Episodic), Reports cough, Reports wheezing (Episodic) - *Gastrointestinal Denies abdominal pain - *Genitourinary Denies urinary incontinence, Denies urinary urgency - *Musculoskeletal Reports joint pain - Integumentary/Breasts Denies bleeding lesions - *Neurologic Reports headache(s), Reports weakness, Denies localized weakness, Denies seizure-like activity - Psychiatric Denies behavioral changes - Endocrine Denies flushing - Allergic/Immunologic Denies throat swelling Meds Home Medications Medication Instructions Recorded Confirmed Type allopurinol 100 mg tablet 100 mg PO DAILY tab 05/15/20 09/20/21 History benazepril 40 mg tablet 40 mg PO DAILY 05/15/20 09/20/21 History spironolactone 25 mg tablet 25 mg PO DAILY 05/15/20 09/20/21 History Atorvastatin Calcium [Lipitor 40mg 40 mg PO HS 06/11/20 09/20/21 History Tablet*] Cholecalciferol (Vitamin D3) 1 tab PO DAILY 06/11/20 09/20/21 History [Vitamin D3] Insulin Aspart [Novolog] 10 units SQ AC 06/15/21 09/20/21 History Ipratropium/Albuterol Sulfate 3 ml IH QID 06/15/21 09/20/21 History [Duoneb 3mL neb] Potassium Chloride [Klor-Con M20] 20 meq PO BID 06/15/21 09/20/21 History Torsemide 50 mg PO DAILY 09/20/21 09/21/21 History Insulin Detemir [Levemir 10 units SQ HS 09/21/21 09/21/21 History 100units/mL 3mL flexpen] Naproxen [EC-Naproxen] 500 mg PO BIDP PRN 09/21/21 09/21/21 History Allergies Allergy/AdvReac Type Severity Reaction Status Date / Time codeine [CODEINE] Allergy Mild Verified 06/11/20 13:59 iodine [IODINE] Allergy Mild Verified 06/11/20 13:59 latex [LATEX] Allergy Mild Verified 06/11/20 13:59 oxycodone [OXYCODONE] Allergy Mild Verified 06/11/20 13:59 Sulfa (Sulfonamide Allergy Mild Verified 06/11/20 13:59 Antibiotics) [SULFA (SULFONAMIDE ANTIBIOTICS)] PCN Allergy Mild Uncoded 05/15/20 10:05 Exam Vital signs and Labs for Last 24 Hours: Temp Pulse Resp BP Pulse Ox 98.2 F 61 17 97/57 L 98 09/21/21 11:07 09/21/21 11:07 09/21/21 11:07 09/21/21 11:07 09/21/21 11:07 Laboratory Results -
--- NOTE | 2021-09-21 18:08 | PC.NURSE ---
PT HAS HAD NO COMPLAINTS TODAY. SHE IS A&O X4. AMBULATES WITH STANDBY ASSISTANCE TO BATHROOM. BLOOD GLUCOSE LEVELS HAVE BEEN ELEVATED THIS SHIFT AND SHE HAS REQUIRED SSI PER MAR.
[2021-09-21 20:44] LABS: POC Glucose,Bedside 219 (70-110)
--- NOTE | 2021-09-21 21:48 | PC.NURSE ---
Yesenia from lab called to report preliminary blood culture results of gram positive staphylococcus epidermidis.
[2021-09-22] VITALS: PULSE 70
--- NOTE | 2021-09-22 01:14 | ECG_ITS ---
APPROVED REPORT Exam: Resting ECG HR:83 bpm ECG Measurements Heart Rate 83 AXES [place] 181 P 18 QRSd 155 QRS -19 QT 389 T 121 QTc 429 Conclusion SINUS RHYTHM LEFT BUNDLE BRANCH BLOCK [120+ ms QRS DURATION, 80+ ms Q/S IN V1/V2, 85+ ms R IN I/aVL/V5/V6] ABNORMAL ECG UNCONFIRMED REPORT Electronically signed by : Rohan Valencia MD 09/23/2021 18:43:18
--- NOTE | 2021-09-22 01:32 | PC.NURSE ---
Seen slight ST changes on tele strips; had EKG obtained; had ED doctor, Avinash, read the EKG and he stated there were no acute changes.
[2021-09-22 04:00] VITALS: BP 145/89; PULSE 64; PULSE 86; RESP 18; TEMP 36.6; O2SAT 94; BMI 43.0
--- NOTE | 2021-09-22 04:41 | PC.NURSE ---
Patient alert and oriented x4. Has not rested well this shift. No c/o pain or discomfort this shift. Call light in place and working appropriately.
[2021-09-22 05:00] VITALS: BMI 42.0
[2021-09-22 06:21] VITALS: PULSE 54; PULSE 62; O2SAT 98
[2021-09-22 06:39] LABS: POC Glucose,Bedside 150 (70-110)
[2021-09-22 07:17] LABS: Chloride 106 mmol/L (98-107); Sodium 137 mmol/L (136-145)
[2021-09-22 07:18] LABS: Basophils # 0.1 K/mm3 (0-0.2); Basophils % 1.8 % (0.1-2.0); Eosinophils # 0.5 K/mm3 (0.0-0.4); Eosinophils % 6.7 % (0.1-12.0); Hematocrit 47.9 % (37.0-47.0); Hemoglobin 15.3 g/dL (12.2-16.2); Lymphocytes # 2.4 K/mm3 (0.7-4.5); Mean Corpuscular HGB Conc 31.9 g/dL (31.8-35.4); Monocytes # 0.5 K/mm3 (0.1-1.0); Monocytes % 6.5 % (1.7-9.3); Platelet Count 309 K/mm3 (142-424); Potassium 4.5 mmoL/L (3.5-5.1); Red Cell Distribution Width 13.8 % (11.5-17.5); White Blood Count 7.5 K/mm3 (4.8-10.8)
[2021-09-22 07:20] LABS: Blood Urea Nitrogen 54 mg/dl (7-17); Creatinine Clearance Estimated 26 mL/min (50-200); Estimated Glomerular Filt Rate 39 ml/min (>60); GFR (African American) 47 ML/MIN (>60)
[2021-09-22 07:21] LABS: Anion Gap 11.5 mEq/L (5-15); Calcium 9.2 mg/dl (8.4-10.2); Carbon Dioxide 24 mmol/L (22.0-30.0); Glucose 171 mg/dl (74-100)
--- NOTE | 2021-09-22 07:52 | HMH.ACPN2 ---
Internal Medicine - PN: Subj *Date: 09/22/21 *Time: 07:52 Interval history: Patient states she is doing better. She has had no further nausea, vomiting or diarrhea. Bowels have not moved since hospitalization. She has been able to eat without difficulties. She still has some left lower quadrant abdominal tenderness and some right lower quadrant discomfort. She is voiding QS. She is ambulated to the bathroom without problems. She continues with oxygen continuously and states her cough is not as usual. Duo nebs have helped. Exam Vital signs and Labs for Last 24 Hours: Temp Pulse Resp BP Pulse Ox 97.8 F 54 L 18 145/89 H 98 09/22/21 04:00 09/22/21 06:21 09/22/21 04:00 09/22/21 04:00 09/22/21 06:21 Laboratory Results - last 24 hr 09/21/21 11:25: POC Glucose 209 H 09/21/21 20:19: POC Glucose 219 H 09/22/21 06:29: POC Glucose 150 H 09/22/21 06:55: WBC 7.5, RBC 5.10, Hgb 15.3, Hct 47.9 H, MCV 94.0, MCH 30.0, MCHC 31.9, RDW 13.8, Plt Count 309 D, MPV 8.0, Neut % (Auto) 53.0, Lymph % (Auto) 32.0, [place] % (Auto) 6.5, Eos % (Auto) 6.7, Baso % (Auto) 1.8, Neut # (Auto) 4.0, Lymph # (Auto) 2.4, [place] # (Auto) 0.5, Eos # (Auto) 0.5 H, Baso # (Auto) 0.1 09/22/21 06:55: Sodium 137, Potassium 4.5, Chloride 106, Carbon Dioxide 24, Anion Gap 11.5, BUN 54 H D, Creatinine 1.30 H D, Estimated Creat Clear 26, Estimated GFR 39 L, Est GFR ( Amer) 47 L D, Glucose 171 H, Calcium 9.2 I & O for Last 24 hours: Intake & Output 09/19/21 09/20/21 09/21/21 09/22/21 11:59 11:59 11:59 11:59 Intake Total 2429 / 2429 1120 / 1120 Balance 2429 / 2428 1119 / 1119 Weight 237 lb 12.8 oz 237 lb 10.533 oz Microbiology Reports for the Last 24 Hours: Microbiology 09/20/21 21:26 Blood - Abscess Blood Culture - Preliminary - Constitutional no acute distress Comments: Sitting on the bedside after completion of breakfast and appears comfortable. No dyspnea noted. - *Routine Respiratory Exam Present: crackles (Posteriorly. Clearing somewhat with cough.), diminished air movement (Posteriorly) - *Routine Cardiovascular Exam Present: RRR - *Routine Abdominal Exam Present: soft, normoactive bowel sounds, tenderness (Left lower quadrant). 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 Will discontinue IV fluids. Probably home today.
[2021-09-22 08:00] VITALS: BP 137/59; PULSE 86; PULSE 90; RESP 18; TEMP 36.7; O2SAT 97
--- NOTE | 2021-09-22 10:04 | HMH.PTEV ---
Physical Therapy Evaluation Rehab PT IP Evaluation Start: 09/22/21 09:05 Freq: ONCE Status: Active Protocol: Document 09/22/21 10:02 MATTHEW (Rec: 09/22/21 10:04 MATTHEW [id number]) Subjective/History History History 81 yowf adm to [facility] with KYLE. She reports she lives alone, 1 step to enter the home and is generally independent with all mobility. She reports she uses oxygen via NC at all times at baseline. Subjective Subjective Pt reports no c/o pain this am . Rehab PT IP Eval Objective Appearance Patient Behavior Appropriate Patient Orientation Person,Place,Time Difficulty following instructions none Speech Pattern Clear Ambulation Patient Able to Ambulate Yes Ambulation Observation IP General Gait Pattern Observation No Deviations/Normal Ambulation Distance (feet) 30 Ambulation Assistive Device None Ambulation Ability Supervision/Stand by Balance Ability to Arise Able, uses arms to help Sitting Balance Steady, safe Standing Balance Steady, wide stance Dynamic Sitting Balance Ability Good Dynamic Standing Balance Ability Good Transfers Bed Transfer Ability Independent Chair Transfer Ability Supervision/Stand by Sit to Stand Bed Transfer Ability Supervision/Stand by Sit to Stand Chair Transfer Ability Supervision/Stand by Rehab PT IP prob,goals,plan Problems Date of Evaluation: 09/22/21 Discharge Plan PT Discharge Plan Pt is currently independent with all mobility and is appropriate to return home once medically stable. G -code Required No Eval Complexity Eval Charge Codes 02718 - Moderate Complexity PHYSICIAN CERTIFICATION: I certify the specified therapy services for Denisa Sanon are required, authorized, and reviewed every 30 days.
[2021-09-22 11:36] VITALS: BMI 42.0
[2021-09-22 12:00] VITALS: BP 130/72; PULSE 100; PULSE 87; RESP 20; TEMP 36.4; O2SAT 98
--- NOTE | 2021-09-22 14:19 | HMH.DCSUM ---
General - General Admission date:: 09/20/21 Discharge date: 09/22/21 HPI HPI: The patient had not felt well for the previous several days. Her complaints were very nonspecific. She did state that her blood pressure had been low at home. She presented to the emergency room for further evaluation and treatment. She was found to have elevated BUN and creatinine. She was admitted for IV fluids. She did have some ongoing respiratory issues consistent with bronchospasm. She used a nebulizer at home as well as albuterol by [facility]. Hospital Course Hospital Course: On admission patient was continued with IV fluids at 100/h. She gradually began to feel better and was able to eat and drink without any nausea vomiting or further diarrhea. She was able to ambulate to the bathroom with standby assist without difficulties. She was voiding QS. The a.m. of 09/22/2021 patient continued to do well. She was experiencing some mild lower abdominal discomfort but no further diarrhea. Renal function improved. She was stable to be discharged home. She was discharged home on this date with meds as per medication reconciliation sheet and to follow-up with her family PCP, Dr. Gonzalez. Objective Vital signs: Temp Pulse Resp BP Pulse Ox 97.6 F 87 20 130/72 98 09/22/21 12:00 09/22/21 12:00 09/22/21 12:00 09/22/21 12:00 09/22/21 12:00 Narrative: Exam Vital signs and Labs for Last 24 Hours: Temp Pulse Resp BP Pulse Ox 97.8 F 54 L 18 145/89 H 98 09/22/21 04:00 09/22/21 06:21 09/22/21 04:00 09/22/21 04:00 09/22/21 06:21 Laboratory Results - last 24 hr 09/21/21 11:25: POC Glucose 209 H 09/21/21 20:19: POC Glucose 219 H 09/22/21 06:29: POC Glucose 150 H 09/22/21 06:55: WBC 7.5, RBC 5.10, Hgb 15.3, Hct 47.9 H, MCV 94.0, MCH 30.0, MCHC 31.9, RDW 13.8, Plt Count 309 D, MPV 8.0, Neut % (Auto) 53.0, Lymph % (Auto) 32.0, Rich % (Auto) 6.5, Eos % (Auto) 6.7, Baso % (Auto) 1.8, Neut # (Auto) 4.0, Lymph # (Auto) 2.4, Rich # (Auto) 0.5, Eos # (Auto) 0.5 H, Baso # (Auto) 0.1 09/22/21 06:55: Sodium 137, Potassium 4.5, Chloride 106, Carbon Dioxide 24, Anion Gap 11.5, BUN 54 H D, Creatinine 1.30 H D, Estimated Creat Clear 26, Estimated GFR 39 L, Est GFR ( Amer) 47 L D, Glucose 171 H, Calcium 9.2 I & O for Last 24 hours: Intake & Output 09/19/21 09/20/21 09/21/21 09/22/21 11:59 11:59 11:59 11:59 Intake Total 2429 / 2429 1120 / 1120 Balance 2429 / 2429 1120 / 1120 Weight 237 lb 12.8 oz 237 lb 10.533 oz Microbiology Reports for the Last 24 Hours: Microbiology 09/20/21 21:26 Blood - Abscess Blood Culture - Preliminary - Constitutional no acute distress Comments: Sitting on the bedside after completion of breakfast and appears comfortable. No dyspnea noted. - *Routine Respiratory Exam Present: crackles (Posteriorly. Clearing somewhat with cough.), diminished air movement (Posteriorly) - *Routine Cardiovascular Exam Present: RRR - *Routine Abdominal Exam Present: soft, normoactive bowel sounds, tenderness (Left lower quadrant). Absent: guarding - *Routine Extremities Exam Absent: edema - *Routine Neurological Exam Present: alert, oriented X3 Results Completed studies during hospitalization [Text1]: 09/20/2021 CXR FINDINGS: Lungs: Suspected emphysema. No consolidation. Pleural spaces: No pneumothorax. Heart/Mediastinum: Borderline cardiomegaly which appears stable. Bones/joints: Degenerative changes of the shoulders. IMPRESSION: Chronic changes without acute process. 09/20/2021 CT of abdomen and pelvis FINDINGS: Diaphragm: Small hiatal hernia. Liver: Parenchymal enhancement is not evaluated without contrast. No hepatomegaly. Gallbladder and bile ducts: Post cholecystectomy change. Pancreas: Parenchymal enhancement is not evaluated without contrast. No ductal dilation. Spleen: Parenchymal enhancement is not evaluated without cont
[2021-09-22 14:23] VITALS: PULSE 68; PULSE 71; O2SAT 97
--- NOTE | 2021-09-23 15:13 | CARE MANAGER ---
Attempted post-discharge phone interview with patient, no answer. Will try again in the AM.
--- NOTE | 2021-09-23 15:26 | CARE MANAGER ---
Spoke with patient for post-discharge phone interview, she states that she is having some sinus problems but feels better. She had no issues and has her follow-up appointment.
== END 2021-09-22 15:40 | disposition home or self-care (01) ==
LOC: ER 20:44 → 2ND 22:59
PROVIDERS: Admitting Provider Family Medicine; Emergency Provider Emergency Medicine; PCP Family Medicine; Visit Provider Family Medicine
DX: N17.9 Acute kidney failure, unspecified (principal); K52.9 Noninfective gastroenteritis and colitis, unspecified; E86.0 Dehydration; E11.9 Type 2 diabetes mellitus without complications; J45.909 Unspecified asthma, uncomplicated; Z79.4 Long term (current) use of insulin; I10 Essential (primary) hypertension; Z79.899 Other long term (current) drug therapy; Z88.2 Allergy status to sulfonamides; Z88.8 Allergy status to other drugs, medicaments and biological substances; Z87.891 Personal history of nicotine dependence; Z20.822 Contact with and (suspected) exposure to COVID-19
CPT/HCPCS: G0378; 36415; 71045; 74176; 80048; 80053; 81001; 82009; 82140; 82150; 82248; 82803; 82962; 83605; 83690; 83735; 84436; 84443; 84484; 85025; 85651; 86140; 87040; 87077; 87186; 93005; 94640; 94761; 97162; 99285; C9803; J2405; U0003; U0005

== ENCOUNTER 2022-01-25 16:42 | Emergency (ER) | payer MEDICARE, SELFPAY ==
[2022-01-25 16:42] VITALS: BP 141/88; PULSE 80; RESP 16; TEMP 36.7; O2SAT 99; BMI 41.4
--- NOTE | 2022-01-25 17:00 | XR_ITS ---
PROCEDURE INFORMATION: Exam: XR Pelvis Exam date and time: 01/25/2022 5:13 PM Age: 81 years old Clinical indication: Injury or trauma; Fall; Blunt trauma (contusions or hematomas); Left; Hip TECHNIQUE: Imaging protocol: Radiologic exam of the pelvis. Views: 1 or 2 view. COMPARISON: CT ABDOMEN PELVIS WO CON 09/20/2021 9:52 PM FINDINGS: Bones/joints: No acute fracture or dislocation. Soft tissues: Unremarkable. IMPRESSION: No acute fracture or dislocation.
--- NOTE | 2022-01-25 17:00 | XR_ITS ---
PROCEDURE INFORMATION: Exam: XR Left Knee Exam date and time: 01/25/2022 5:13 PM Age: 81 years old Clinical indication: Injury or trauma; Fall; Blunt trauma; Hip and thigh or upper leg; Left TECHNIQUE: Imaging protocol: Radiologic exam of the Left knee. Views: 3 views. 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 No acute fracture or dislocation. Soft tissues: Normal. IMPRESSION: No acute fracture or dislocation.
--- NOTE | 2022-01-25 17:00 | XR_ITS ---
PROCEDURE INFORMATION: Exam: XR Left Femur Exam date and time: 01/25/2022 5:13 PM Age: 81 years old Clinical indication: Injury or trauma; Fall; Blunt trauma; Hip and thigh or upper leg; Left TECHNIQUE: Imaging protocol: Radiologic exam of the Left femur. Views: 2 views. COMPARISON: CT ABDOMEN PELVIS WO CON 09/20/2021 9:52 PM FINDINGS: Bones/joints: Proximal tibial osteochondroma. No acute fracture or dislocation. Soft tissues: Unremarkable. IMPRESSION: No acute fracture or dislocation.
--- NOTE | 2022-01-25 18:56 | PC.NURSE ---
PT AMBULATED TO BR WITH WALKER
[2022-01-25 19:05] VITALS: BP 140/77; PULSE 78; RESP 18; TEMP 36.7; O2SAT 98
--- NOTE | 2022-02-20 02:38 | HMH.EDGENADL ---
Discharge Plan Disposition Patient Disposition: Home, Self-Care Condition: Good Prescriptions Prescriptions: No Action allopurinol 100 mg tablet 100 mg PO DAILY Label Comments: Take 1 tablet by mouth daily benazepril 40 mg tablet 40 mg PO DAILY atorvastatin 40 MG tablet 40 mg PO HS cholecalciferol (vitamin D3) 50 MCG tablet,chewable 1 tab PO DAILY torsemide 100 MG tablet 50 mg PO DAILY insulin detemir U-100 100 UNIT/ML insulin pen 10 units SQ HS Label Comments: INJECT 10 UNITS SUBCUTANEOUSLY AT BEDTIME acetaminophen 325 MG tablet 650 mg PO Q4HP PRN (Reason: Fever Or Mild Pain) 0RF ipratropium-albuterol 3 ML solution for nebulization 3 ml IH TIDRT 0RF insulin lispro 100 UNIT/ML solution 0 unit SQ ACHS 0RF ondansetron HCl (PF) 4 MG/2 ML solution 4 mg IV Q8HP PRN (Reason: Nausea) 0RF insulin aspart U-100 100 UNIT/ML solution 10 units SQ AC Label Comments: INJECT 10 UNITS SUBCUTANEOUSLY 5 TO 10 MINUTES BEFORE EACH MEAL ( THREE MEALS PER DAY) ipratropium-albuterol 3 ML solution for nebulization 3 ml IH QID potassium chloride 20 MEQ tablet,ER particles/crystals 20 meq PO BID Referrals Follow up/Referrals: Danish Emery MD [Primary Care Provider] - See instructions Activity Restrictions/Add. Instructions Additional Instructions/Restrictions: Please follow-up with your primary care physician in 2 to 3 days for further management. Please utilize Tylenol and ibuprofen for pain control. If symptoms do not improve please discuss with your primary care physician regarding physical therapy and possible MRI. Clinical Impressions Clinical Impression: Knee sprain Instructions Patient Instructions: DI for Knee Sprain, How to Prevent Falls Print Language Print Language: Maltese Discharge ED Provider: Annie Jara General Adult HPI General Chief complaint: Fall Stated complaint: FALL Time Seen by Provider: 01/25/22 18:00 Mode of Arrival: EMS Source of Information: Patient Limitations: No Limitations Description of Symptoms (Recalled from ER Triage Doc. by RN): Pt to ED per EMS c/o left hip and knee pain. Advises of fall at home. States that she got up to ambulate with her walker and her knee gave out. Denies feelings of dizziness or illness. History of Present Illness HPI narrative: Mrs. Sanon is an 81-year-old female who presents to the emergency department for isolated left hip and knee pain after mechanical fall at home. Patient reports her knee gave out causing her to fall landing onto her left side. Patient walks with a walker at all times. She denies any chest pain, dizziness, heart palpitations or other prodromal symptoms prior to falling. Patient denies hitting head. Denies loss of consciousness. Denies blood thinners. No obvious gross deformities. Denies back pain, chest pain, neck pain, headache, abdominal pain, other extremity pain. MD complaint: Mechanical fall Related Data Home Medications Medication Instructions Recorded Confirmed allopurinol 100 mg tablet 100 mg PO DAILY gout 05/15/20 09/20/21 benazepril 40 mg tablet 40 mg PO DAILY High blood pressure 05/15/20 09/20/21 atorvastatin 40 mg tablet 40 mg PO HS Cholesterol 06/11/20 09/20/21 cholecalciferol (vitamin D3) 50 1 tab PO DAILY Supplement 06/11/20 09/20/21 mcg (2,000 unit) chewable tablet insulin aspart U-100 100 unit/mL 10 units SQ AC Diabetes 06/15/21 09/20/21 subcutaneous solution ipratropium 0.5 mg-albuterol 3 mg 3 ml IH QID Breathing problems 06/15/21 09/20/21 (2.5 mg base)/3 mL nebulization soln potassium chloride 20 mEq 20 meq PO BID Supplement 06/15/21 09/20/21 tablet,extended release(part/cryst) torsemide 100 mg tablet 50 mg PO DAILY DIURETIC 09/20/21 09/21/21 insulin detemir U-100 100 unit/mL 10 units SQ HS Diabetes 09/21/21 09/21/21 (3 mL) subcutaneous pen Previous Rx's Medication Instructions Recorded a
== END 2022-01-25 19:05 | disposition home or self-care (01) ==
PROVIDERS: Emergency Provider Student in an Organized Health Care Education/Training Program; PCP Family Medicine
DX: S83.90XA Sprain of unspecified site of unspecified knee, initial encounter (principal); M25.552 Pain in left hip; W18.39XA Other fall on same level, initial encounter
CPT/HCPCS: 72170; 73552; 73562; 99283; 99284

== ENCOUNTER 2022-03-30 10:41 | Emergency (ER) | payer MEDICARE, SELFPAY ==
[2022-03-30] VITALS (9 sets, daily range): BP systolic 114–151; BP diastolic 59–97; PULSE 75–89; RESP 18–21; TEMP 36.4–36.6; O2SAT 92–98; BMI 40.7
--- NOTE | 2022-03-30 11:14 | XR_ITS ---
FINAL REPORT TECHNIQUE: Single view chest CLINICAL HISTORY: SOB COMPARISON: 09/21/2021 FINDINGS: A single view of the chest was obtained. The heart and mediastinum are within normal limits. There is mild right base opacity, favor atelectasis or scarring. There is no pneumothorax. Osseous structures are unremarkable. IMPRESSION: Mild right base opacity, favor atelectasis or scarring. Reviewed, Interpreted and Dictated by Donta Cummings III, MD Transcribed by Prisca Flowers Authenticated and [facility]
--- NOTE | 2022-03-30 11:20 | PC.NURSE ---
PORTABLE XRAY AT BEDSIDE.
--- NOTE | 2022-03-30 11:20 | PC.NURSE ---
MICHAEL BRIONES AT BEDSIDE.
--- NOTE | 2022-03-30 11:20 | PC.NURSE ---
MICHAEL BRIONES at
[2022-03-30 11:24] LABS: Chloride 99 mmol/L (98-107); Potassium 3.8 mmoL/L (3.5-5.1); Sodium 140 mmol/L (136-145)
--- NOTE | 2022-03-30 11:25 | HMH.EDGENADL ---
Discharge Plan Disposition Patient Disposition: Home, Self-Care Condition: Good Prescriptions Prescriptions: No Action allopurinol 100 mg tablet 100 mg PO DAILY Label Comments: Take 1 tablet by mouth daily benazepril 40 mg tablet 40 mg PO DAILY atorvastatin 40 MG tablet 40 mg PO HS cholecalciferol (vitamin D3) 50 MCG tablet,chewable 1 tab PO DAILY torsemide 100 MG tablet 50 mg PO DAILY insulin detemir U-100 100 UNIT/ML insulin pen 10 units SQ HS Label Comments: INJECT 10 UNITS SUBCUTANEOUSLY AT BEDTIME acetaminophen 325 MG tablet 650 mg PO Q4HP PRN (Reason: Fever Or Mild Pain) 0RF ondansetron HCl (PF) 4 MG/2 ML solution 4 mg IV Q8HP PRN (Reason: Nausea) 0RF ipratropium-albuterol 3 ML solution for nebulization 3 ml IH TIDRT insulin lispro 100 UNIT/ML solution 0 unit SQ ACHS insulin aspart U-100 100 UNIT/ML solution 10 units SQ AC Label Comments: INJECT 10 UNITS SUBCUTANEOUSLY 5 TO 10 MINUTES BEFORE EACH MEAL ( THREE MEALS PER DAY) ipratropium-albuterol 3 ML solution for nebulization 3 ml IH QID potassium chloride 20 MEQ tablet,ER particles/crystals 20 meq PO BID Referrals Follow up/Referrals: Danish Emery MD [Primary Care Provider] - See instructions Clinical Impressions Clinical Impression: CHF exacerbation Instructions Patient Instructions: DI for Heart Failure Discharge ED Provider: Yassine Chapman General Adult HPI General Chief complaint: Shortness of Breath/Dyspnea Stated complaint: SOA,Cough Time Seen by Provider: 03/30/22 11:10 Mode of Arrival: Wheelchair Source of Information: Patient Limitations: No Limitations Description of Symptoms (Recalled from ER Triage Doc. by RN): PT STATES SHE HAS HAD A NONPRODUCTIVE, HACKY, DRY COUGH FOR A WEEK AND INCREASED SOB, DENIES ANY FEVER, HX OF COPD History of Present Illness HPI narrative: Patient is an 81-year-old female who presents with multiple complaints. She says that over the last week she has had increasing shortness of breath. She also complains of a nonproductive hacking cough that is gotten progressively worse. She says she has not been able to get up any phlegm. She does have a history of COPD. She also does take torsemide daily. She does not know which she takes this for. 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 Denies any fever or chills. Denies any myalgias. Denies any chest pain. Related Data Home Medications Medication Instructions Recorded Confirmed allopurinol 100 mg tablet 100 mg PO DAILY gout 05/15/20 03/30/22 benazepril 40 mg tablet 40 mg PO DAILY High blood pressure 05/15/20 03/30/22 atorvastatin 40 mg tablet 40 mg PO HS Cholesterol 06/11/20 03/30/22 cholecalciferol (vitamin D3) 50 1 tab PO DAILY Supplement 06/11/20 03/30/22 mcg (2,000 unit) chewable tablet insulin aspart U-100 100 unit/mL 10 units SQ AC Diabetes 06/15/21 03/30/22 subcutaneous solution ipratropium 0.5 mg-albuterol 3 mg 3 ml IH QID Breathing problems 06/15/21 03/30/22 (2.5 mg base)/3 mL nebulization soln potassium chloride 20 mEq 20 meq PO BID Supplement 06/15/21 03/30/22 tablet,extended release(part/cryst) torsemide 100 mg tablet 50 mg PO DAILY DIURETIC 09/20/21 03/30/22 insulin detemir U-100 100 unit/mL 10 units SQ HS Diabetes 09/21/21 03/30/22 (3 mL) subcutaneous pen insulin lispro 100 unit/mL 0 unit SQ ACHS Diabetes 03/30/22 03/30/22 subcutaneous solution ipratropium 0.5 mg-albuterol 3 mg 3 ml IH TIDRT COPD 03/30/22 03/30/22 (2.5 mg base)/3 mL nebulization soln Previous Rx's Medication Instructions Recorded acetaminophen 325 mg tablet 650 mg PO Q4HP PRN Fever Or Mild 09/22/21 Pain ondansetron HCl (PF) 4 mg/2 mL 4 mg (2 mL) IV Q8HP PRN Nausea 09/22/21 injection solution Allergies Allergy/AdvReac Type Severity Reaction Status Date / Time codeine [C
--- NOTE | 2022-03-30 11:26 | ECG_ITS ---
APPROVED REPORT Exam: Resting ECG HR:83 bpm ECG Measurements Heart Rate 83 AXES RI 161 P 95 QRSd 153 QRS -52 QT 409 T 95 QTc 448 Conclusion SINUS RHYTHM LEFT AXIS DEVIATION [QRS AXIS < -30] LEFT BUNDLE BRANCH BLOCK [120+ ms QRS DURATION, 80+ ms Q/S IN V1/V2, 85+ ms R IN I/aVL/V5/V6] ABNORMAL ECG UNCONFIRMED REPORT Electronically signed by : Rohan Valencia MD 03/30/2022 19:55:29
[2022-03-30 11:27] LABS: Alanine Aminotransferase 25 U/L (12-78); Albumin/Globulin Ratio 1.6 (1.1-1.8); Alkaline Phosphatase 96 U/L (38-126); Anion Gap 9.8 mEq/L (5-15); Aspartate Amino Transferase 31 U/L (14-36); Basophils # 0.1 K/mm3 (0-0.2); Basophils % 0.6 % (0.1-2.0); Bilirubin,Total 0.6 mg/dl (0.2-1.3); Blood Urea Nitrogen 32 mg/dl (7-17); Carbon Dioxide 35 mmol/L (22.0-30.0); Creatinine Clearance Estimated 50 mL/min (50-200); Eosinophils # 0.8 K/mm3 (0.0-0.4); Eosinophils % 8.9 % (0.1-12.0); Estimated Glomerular Filt Rate 36 ml/min (>60); GFR (African American) 43 ML/MIN (>60); Globulin 2.5 g/dL (1.3-3.2); Hemoglobin 15.5 g/dL (12.2-16.2); Lymphocytes # 1.3 K/mm3 (0.7-4.5); Lymphocytes % 14.3 % (10-50); Mean Corpuscular HGB Conc 31.6 g/dL (31.8-35.4); Mean Corpuscular Volume 91.7 fl (81-99); Mean Platelet Volume 8.2 fl (7.4-10.4); Monocytes # 0.5 K/mm3 (0.1-1.0); Monocytes % 5.7 % (1.7-9.3); Neutrophils # 6.5 K/mm3 (1.8-7.8); Neutrophils % 70.5 % (37.0-80.0); Platelet Count 320 K/mm3 (142-424); Red Blood Count 5.34 M/mm3 (4.20-5.40); Red Cell Distribution Width 12.9 % (11.5-17.5); Total Protein,Serum 6.5 g/dl (6.3-8.2); White Blood Count 9.3 K/mm3 (4.8-10.8)
[2022-03-30 11:28] LABS: Calcium 9.8 mg/dl (8.4-10.2); Glucose 146 mg/dl (74-100)
[2022-03-30 11:33] LABS: Coronavirus 19, PCR Not Detected (NotDetected); Influenza A, PCR Not Detected (NotDetected); Influenza B, PCR Not Detected (NotDetected)
[2022-03-30 11:41] LABS: C-Reactive Protein 2.8 mg/L (0-4)
[2022-03-30 11:47] LABS: NT Pro Brain Natriuretic Pep. 617 pg/mL (0-450)
[2022-03-30 11:58] LABS: Procalcitonin 0.123 ng/mL (0.0-2.0)
--- NOTE | 2022-03-30 12:05 | PC.NURSE ---
pt ambulatory to restroom with walker for assistance, no complications
--- NOTE | 2022-03-30 12:14 | PC.NURSE ---
pt ambulatory back to ED room 4 with assistance of walker, no other needs at this time. Pt hooked back up to monitor and her oxygen.
--- NOTE | 2022-03-30 13:04 | PC.NURSE ---
PROVIDED PT WITH GLASS OF WATER.
--- NOTE | 2022-03-30 13:26 | PC.NURSE ---
ASSISTED PT TO BATHROOM AND BACK. TOLERATED WELL. CALL LIGHT WITHIN REACH. NO QUESTIONS OR CONCERNS VOICED.
--- NOTE | 2022-03-30 14:20 | PC.NURSE ---
MICHAEL BRIONES at for update on POC
--- NOTE | 2022-03-30 14:28 | PC.NURSE ---
Pt ambulatory to restroom with walker for assistance, ER at for update on POC
== END 2022-03-30 14:42 | disposition home or self-care (01) ==
PROVIDERS: Emergency Provider Student in an Organized Health Care Education/Training Program; PCP Family Medicine
DX: I50.9 Heart failure, unspecified (principal)
CPT/HCPCS: 71045; 80053; 83605; 83880; 84145; 85025; 86140; 87040; 93005; C9803; U0003; U0005

== ENCOUNTER 2022-03-30 15:28 | Emergency (ER) | payer MEDICARE, SELFPAY ==
[2022-03-30 15:39] VITALS: BP 140/66; PULSE 93; RESP 22; TEMP 36.8; O2SAT 95; BMI 40.7
[2022-03-30 16:05] LABS: Troponin I 0.03 ng/ml (0.00-0.034)
[2022-03-30 16:31] VITALS: BP 114/49; PULSE 87; O2SAT 96
[2022-03-30 16:33] LABS: Troponin I 0.04 ng/ml (0.00-0.034)
[2022-03-30 17:03] VITALS: BP 95/77; PULSE 85; O2SAT 95
[2022-03-30 18:14] VITALS: BP 135/84; PULSE 66; RESP 20; TEMP 36.6; O2SAT 96
--- NOTE | 2022-03-30 19:54 | HMH.EDGENADL ---
Discharge Plan Disposition Patient Disposition: Home, Self-Care Condition: Good Prescriptions Prescriptions: New benzonatate 100 mg capsule 100 mg PO Q6H PRN (Reason: cough) Qty: 14 0RF No Action allopurinol 100 mg tablet 100 mg PO DAILY Label Comments: Take 1 tablet by mouth daily benazepril 40 mg tablet 40 mg PO DAILY atorvastatin 40 MG tablet 40 mg PO HS cholecalciferol (vitamin D3) 50 MCG tablet,chewable 1 tab PO DAILY torsemide 100 MG tablet 50 mg PO DAILY insulin detemir U-100 100 UNIT/ML insulin pen 10 units SQ HS Label Comments: INJECT 10 UNITS SUBCUTANEOUSLY AT BEDTIME acetaminophen 325 MG tablet 650 mg PO Q4HP PRN (Reason: Fever Or Mild Pain) 0RF ondansetron HCl (PF) 4 MG/2 ML solution 4 mg IV Q8HP PRN (Reason: Nausea) 0RF ipratropium-albuterol 3 ML solution for nebulization 3 ml IH TIDRT insulin lispro 100 UNIT/ML solution 0 unit SQ ACHS insulin aspart U-100 100 UNIT/ML solution 10 units SQ AC Label Comments: INJECT 10 UNITS SUBCUTANEOUSLY 5 TO 10 MINUTES BEFORE EACH MEAL ( THREE MEALS PER DAY) ipratropium-albuterol 3 ML solution for nebulization 3 ml IH QID potassium chloride 20 MEQ tablet,ER particles/crystals 20 meq PO BID Referrals Follow up/Referrals: Danish Emery MD [Primary Care Provider] - See instructions Clinical Impressions Clinical Impression: Cough, Vasovagal episode Instructions Patient Instructions: Cough Discharge ED Provider: Yassine Chapman General Adult HPI General Chief complaint: Shortness of Breath/Dyspnea Stated complaint: passed out, soa Time Seen by Provider: 03/30/22 15:40 Mode of Arrival: Wheelchair Source of Information: Patient and Relative Limitations: No Limitations Description of Symptoms (Recalled from ER Triage Doc. by RN): PT STATES THEY WENT TO [facility] AFTER BEING DISCHARGED FROM HERE, SHE WAS HEADED HOME WHEN SHE HAD A COUGHING FIT, FRIEND STATES SHE STOPPED BREATHING FOR A LITTLE BIT, PT STATES SHE HAS NO NEW COMPLAINTS, STILL REPORTS COUGHING AND SHORTNESS OF BREATH History of Present Illness HPI narrative: Patient is an 81-year-old female with a past medical history of CHF who presents after complaints of shortness of breath and questionable syncope. I just evaluated the patient and discharged her shortly prior to this new presentation. She says that after she was discharged they went to [employer] and when they were sitting in the car she started having a coughing fit. The friend that was in the car says that she stopped breathing for a little while and questionably passed out. Patient says that she was not able to catch her breath. She denies any chest pain. She says that it has gotten better but she has been continue to cough. She feels still short of breath but no difference from what she was just short of breath. Denies any numbness or tingling. Related Data Home Medications Medication Instructions Recorded Confirmed allopurinol 100 mg tablet 100 mg PO DAILY gout 05/15/20 03/30/22 benazepril 40 mg tablet 40 mg PO DAILY High blood pressure 05/15/20 03/30/22 atorvastatin 40 mg tablet 40 mg PO HS Cholesterol 06/11/20 03/30/22 cholecalciferol (vitamin D3) 50 1 tab PO DAILY Supplement 06/11/20 03/30/22 mcg (2,000 unit) chewable tablet insulin aspart U-100 100 unit/mL 10 units SQ AC Diabetes 06/15/21 03/30/22 subcutaneous solution ipratropium 0.5 mg-albuterol 3 mg 3 ml IH QID Breathing problems 06/15/21 03/30/22 (2.5 mg base)/3 mL nebulization soln potassium chloride 20 mEq 20 meq PO BID Supplement 06/15/21 03/30/22 tablet,extended release(part/cryst) torsemide 100 mg tablet 50 mg PO DAILY DIURETIC 09/20/21 03/30/22 insulin detemir U-100 100 unit/mL 10 units SQ HS Diabetes 09/21/21 03/30/22 (3 mL) subcutaneous pen insulin lispro 100 unit/mL 0 unit SQ ACHS Diabetes 03/30/22 03/30/22 subcutaneous solution ipratro
== END 2022-03-30 18:16 | disposition home or self-care (01) ==
PROVIDERS: Emergency Provider Student in an Organized Health Care Education/Training Program; PCP Family Medicine
DX: R55 Syncope and collapse (principal); I50.9 Heart failure, unspecified; R05.9 Cough, unspecified; Z79.4 Long term (current) use of insulin; Z79.899 Other long term (current) drug therapy; Z88.0 Allergy status to penicillin; Z88.2 Allergy status to sulfonamides; Z88.8 Allergy status to other drugs, medicaments and biological substances; Z88.6 Allergy status to analgesic agent; Z91.040 Latex allergy status
CPT/HCPCS: 71045; 80053; 83605; 83880; 84145; 84484; 85025; 86140; 87040; 93005; 94640; 96374; 99283; 99284; C9803; U0003; U0005

== ENCOUNTER 2022-04-04 13:57 | Emergency (ER) | payer MEDICARE, SELFPAY ==
--- NOTE | 2022-04-04 14:14 | PC.NURSE ---
pt oxygen check with 93 on RA and HR of 78. PT states she has copd. No beds available at this time, pt and family sat back in waiting room with knowledge that when one comes available we will get her back. Pt and family verbalize understanding
[2022-04-04 15:00] VITALS: BP 143/79; PULSE 91; RESP 18; TEMP 36.6; O2SAT 97; BMI 40.7
--- NOTE | 2022-04-04 15:04 | XR_ITS ---
PROCEDURE INFORMATION: Exam: XR Chest Exam date and time: 04/04/2022 3:42 PM Age: 81 years old Clinical indication: Cough and shortness of breath; Patient HX: SOA and cough TECHNIQUE: Imaging protocol: Radiologic exam of the chest. Views: 1 view. Portable chest x-ray COMPARISON: CR XR CHEST PORTABLE 03/30/2022 11:30 AM FINDINGS: Lungs: No consolidation or lung nodules. Pleural spaces: No pleural effusion. No pneumothorax. Heart/Mediastinum: No abnormalities. No cardiomegaly. No pulmonary vascular congestion. Bones/joints: No fractures or bone lesions. IMPRESSION: No acute findings in the chest. No interval change since 03/30/2022.
--- NOTE | 2022-04-04 15:23 | HMH.EDGENADL ---
Discharge Plan Disposition Patient Disposition: Home, Self-Care Condition: Good Prescriptions Prescriptions: New ipratropium-albuterol 0.5 mg-3 mg(2.5 mg base)/3 mL solution for nebulization 3 ml inhalation Q6H Qty: 180 0RF azithromycin [Zithromax Z-Kameron] 250 mg tablet 250 mg PO DAILY 4 Days Qty: 4 0RF Rx Instructions: start on day 2 of therapy prednisone 20 mg tablet 20 mg PO BID Qty: 10 0RF No Action allopurinol 100 mg tablet 100 mg PO DAILY Label Comments: Take 1 tablet by mouth daily benazepril 40 mg tablet 40 mg PO DAILY atorvastatin 40 MG tablet 40 mg PO HS cholecalciferol (vitamin D3) 50 MCG tablet,chewable 1 tab PO DAILY torsemide 100 MG tablet 50 mg PO DAILY insulin detemir U-100 100 UNIT/ML insulin pen 10 units SQ HS Label Comments: INJECT 10 UNITS SUBCUTANEOUSLY AT BEDTIME acetaminophen 325 MG tablet 650 mg PO Q4HP PRN (Reason: Fever Or Mild Pain) 0RF ondansetron HCl (PF) 4 MG/2 ML solution 4 mg IV Q8HP PRN (Reason: Nausea) 0RF ipratropium-albuterol 3 ML solution for nebulization 3 ml IH TIDRT insulin lispro 100 UNIT/ML solution 0 unit SQ ACHS insulin aspart U-100 100 UNIT/ML solution 10 units SQ AC Label Comments: INJECT 10 UNITS SUBCUTANEOUSLY 5 TO 10 MINUTES BEFORE EACH MEAL ( THREE MEALS PER DAY) ipratropium-albuterol 3 ML solution for nebulization 3 ml IH QID potassium chloride 20 MEQ tablet,ER particles/crystals 20 meq PO BID benzonatate 100 mg capsule 100 mg PO Q6H PRN (Reason: cough) Qty: 14 0RF Referrals Follow up/Referrals: Danish Emery MD [Primary Care Provider] - See instructions Activity Restrictions/Add. Instructions Additional Instructions/Restrictions: Take prednisone and Zithromax as prescribed. Continue using nebulizer treatments 4 times a day. Follow-up with primary care provider, call for appointment. Return if worsening. Clinical Impressions Clinical Impression: Acute exacerbation of chronic obstructive pulmonary disease, Acute bronchitis Instructions Patient Instructions: DI for Chronic Obstructive Pulmonary Disease, DI for Acute Bronchitis Discharge ED Provider: Sammy Ross Adult [facility] General Chief complaint: Shortness of Breath/Dyspnea Stated complaint: SOA,cough Time Seen by Provider: 04/04/22 15:10 Mode of Arrival: Wheelchair Source of Information: Patient Limitations: No Limitations Description of Symptoms (Recalled from ER Triage Doc. by RN): c/o cough and soa since Wednesday, Friend states that pt was seen over here Wednesday x2 for soa and cough, was given fluid medicine the first time, resolved her problem, returned for cough and soa and was given a narcotic and this resolved her issues for the rest of the evening, then cough started t/o the night. History of Present Illness HPI narrative: Patient complains of cough and shortness of breath which has been going on for over a week, 10 days or so. Cough is nonproductive. No fever. No chest pain. No runny nose or sore throat. She has been wheezing. She has COPD. She takes 4 nebulizer treatments a day at home. She is on oxygen 2 L nasal cannula at all times. She saw her primary care provider in the office about 10 days ago. States that she was given an IV, but not prescribed any medications. States she is not on steroids or antibiotics at this time. She was seen in the emergency department here twice on 03/30/2022. First visit was for the same complaints of cough and shortness of breath. She was given a dose of torsemide for presumed exacerbation of CHF. She then had a near syncopal episode during a coughing spell and at a restaurant after she left and return to the emergency department. She was still coughing and was given a [place] which reportedly improved her cough. She was discharged on Tessalon Perles which have not helped. She is a former smoker. Related Da
--- NOTE | 2022-04-04 15:29 | ECG_ITS ---
APPROVED REPORT Exam: Resting ECG HR:89 bpm ECG Measurements Heart Rate 89 AXES QRSd 147 QRS -31 QT 384 T 113 QTc 431 Conclusion ATRIAL FIBRILLATION LEFT AXIS DEVIATION [QRS AXIS < -30] LEFT BUNDLE BRANCH BLOCK [120+ ms QRS DURATION, 80+ ms Q/S IN V1/V2, 85+ ms R IN I/aVL/V5/V6] ABNORMAL ECG UNCONFIRMED REPORT Electronically signed by : Rohan Valencia MD 04/06/2022 07:15:16
[2022-04-04 15:49] LABS: Alanine Aminotransferase 25 U/L (12-78); Albumin Level 4.5 g/dl (3.5-5.0); Albumin/Globulin Ratio 1.7 (1.1-1.8); Alkaline Phosphatase 97 U/L (38-126); Anion Gap 11.8 mEq/L (5-15); Aspartate Amino Transferase 35 U/L (14-36); Bilirubin,Total 0.5 mg/dl (0.2-1.3); Blood Urea Nitrogen 28 mg/dl (7-17); Carbon Dioxide 34 mmol/L (22.0-30.0); Chloride 98 mmol/L (98-107); Creatinine Clearance Estimated 50 mL/min (50-200); Estimated Glomerular Filt Rate 36 ml/min (>60); GFR (African American) 43 ML/MIN (>60); Globulin 2.7 g/dL (1.3-3.2); Glucose 138 mg/dl (74-100); Potassium 3.8 mmoL/L (3.5-5.1); Sodium 140 mmol/L (136-145); Total Protein,Serum 7.2 g/dl (6.3-8.2)
[2022-04-04 15:51] LABS: Basophils # 0.1 K/mm3 (0-0.2); Basophils % 0.8 % (0.1-2.0); Eosinophils # 0.9 K/mm3 (0.0-0.4); Eosinophils % 9.8 % (0.1-12.0); Hematocrit 47.9 % (37.0-47.0); Hemoglobin 15.5 g/dL (12.2-16.2); Lymphocytes # 1.4 K/mm3 (0.7-4.5); Lymphocytes % 15.2 % (10-50); Mean Corpuscular HGB Conc 32.3 g/dL (31.8-35.4); Mean Corpuscular Hemoglobin 29.5 pg (27.0-31.2); Mean Corpuscular Volume 91.2 fl (81-99); Mean Platelet Volume 8.3 fl (7.4-10.4); Monocytes # 0.5 K/mm3 (0.1-1.0); Monocytes % 5.2 % (1.7-9.3); Neutrophils # 6.2 K/mm3 (1.8-7.8); Platelet Count 309 K/mm3 (142-424); Red Blood Count 5.25 M/mm3 (4.20-5.40)
[2022-04-04 15:55] LABS: Lactic Acid 1.7 mmol/L (0.7-2.1)
[2022-04-04 16:00] VITALS: BP 146/75; PULSE 88; RESP 18; O2SAT 96
[2022-04-04 16:01] LABS: NT Pro Brain Natriuretic Pep. 543 pg/mL (0-450); Troponin I 0.03 ng/ml (0.00-0.034)
--- NOTE | 2022-04-04 16:48 | PC.NURSE ---
pt ambulated to the restroom with walker, pt tolerated well.
--- NOTE | 2022-04-04 17:05 | PC.NURSE ---
pt did not want to be swabbed again for covid/flu due to her being swabbed the other day per MD to cancel the order for this test.
[2022-04-04 17:22] VITALS: BP 165/95; PULSE 88; RESP 20; TEMP 36.6; O2SAT 95
== END 2022-04-04 17:24 | disposition home or self-care (01) ==
PROVIDERS: Emergency Provider Emergency Medicine; PCP Family Medicine
DX: R06.02 Shortness of breath (principal); R50.9 Fever, unspecified; R55 Syncope and collapse; R11.0 Nausea; Z99.81 Dependence on supplemental oxygen; Z79.1 Long term (current) use of non-steroidal anti-inflammatories (NSAID); Z79.4 Long term (current) use of insulin; Z79.51 Long term (current) use of inhaled steroids; Z79.52 Long term (current) use of systemic steroids; Z79.899 Other long term (current) drug therapy; Z88.0 Allergy status to penicillin; Z88.1 Allergy status to other antibiotic agents; Z88.2 Allergy status to sulfonamides; Z88.3 Allergy status to other anti-infective agents; Z88.5 Allergy status to narcotic agent; Z88.6 Allergy status to analgesic agent; Z91.040 Latex allergy status; Z87.891 Personal history of nicotine dependence
CPT/HCPCS: 71045; 80053; 83605; 83880; 84484; 85025; 87040; 93005; 96374; 99285

== ENCOUNTER → 2022-06-02 13:23 | Outpatient (CLI) | payer MEDICARE, SELFPAY ==
--- NOTE | 2022-06-02 13:31 | XR_ITS ---
FINAL REPORT CLINICAL HISTORY: L HIP PAIN, HX FALL COMPARISON: 01/25/2022 FINDINGS: AP and frog leg views of the left hip were obtained. There is no prior exam for comparison. There is no acute fracture or dislocation. There is degenerative disease which has progressed since previous. Soft tissues are within normal limits. IMPRESSION: Degenerative disease, progressed since previous. Reviewed, Interpreted and Dictated by Azul Cloud MD Transcribed by Mayte Galeano Authenticated and [facility]
== END ==
PROVIDERS: Visit Provider Nurse Practitioner Family
DX: M25.552 Pain in left hip (principal)
CPT/HCPCS: 73502

== ENCOUNTER → 2022-12-10 10:47 | Outpatient (POV) | payer MEDICARE, SELFPAY ==
--- NOTE | 2022-12-10 11:02 | EXP.PAIN.OV ---
HPI Data of Consult Patient: new to practice Consult date: 12/10/22 Requesting Physician: Izzy Laura APRN Primary Care Provider: Norma Au APRN Consult Narrative Reason for consult: Low back pain, neck pain, bilateral upper extremity numbness and tingling History of present illness: Ms. Sanon is a 82 year old female who presents today as a new patient. She is a referral from Dr. Adeel Capellan's office. Today she rates her pain a 10 out of 10. Patient states her pain is all in her neck with radiating symptoms into her upper arms and hands. Patient does state that the numbness and tingling goes into her right arm worse than her left. Patient does state this pain has been going on for approximately 6 to 8 weeks and unrelated to any trauma or injury. Patient does state that she also has chronic low back pain that initially started a few years ago from a fall at work. Patient does state that initially when the cervical symptoms started she was worried about possible heart attack because she does have a heart history. She states that she did go to [facility] to rule out any cardiac issues and that everything was within normal limits. Patient states she does not think they did any imaging at that time. Patient states she has been to a chiropractor who was unable to give any additional improvement. Patient has tried a muscle relaxer as well as tramadol however they made her sleepy and she discontinued this medication. Patient has tried [id number] Tylenol along with a heating pad for temporary relief. Patient states that topicals do not seem to make any difference. She does state that the pain interferes with her ability perform activities of daily living such as cooking and cleaning. Patient does have chronic COPD and is on continuous O2. Patient uses a rolling walker for help with ambulation. Her Oneal is [phone]. Its been reviewed and appropriate. CC: Izzy Laura APRN [facility] Disclaimer: The information contained in this section may have been updated after the patient was seen, as this information can be updated by other users. Medical History (Updated 12/10/22 @ 11:50 by Izzy Laura APRN) COPD (chronic obstructive pulmonary disease) Social History Smoking Status: Former smoker pack-years: 30 second hand exposure: No alcohol intake: never substance use type: denies use current occupational status: retired Travel in the last 8 weeks: None household members: none housing: house caffeine: No Review of Systems Review of Systems Review of systems:: pertinent systems reviewed and negative unless documented below Review of systems (narrative): Review of Systems: General: No recent weight changes, no fever, no sleep disturbances Respiratory: No cough, no shortness of air, no recurring pulmonary infections Cardiovascular/peripheral vascular: No chest pain, no palpitations, no edema, no shortness of breath Gastrointestinal: No new onset incontinence, normal bowel movements reported Genitourinary: No new onset incontinence Musculoskeletal: Neck pain, bilateral upper extremity numbness tingling Psychiatric: [Normal mood/affect] Neurological: [Denies weakness in extremities], [denies balance issues] Meds Home Medications and Allergies Home Medications Medication Instructions Recorded Confirmed Type allopurinol 100 mg tablet 100 mg PO DAILY gout 05/15/20 03/30/22 History benazepril 40 mg tablet 40 mg PO DAILY High blood pressure 05/15/20 03/30/22 History atorvastatin 40 mg tablet 40 mg PO HS Cholesterol 06/11/20 03/30/22 History cholecalciferol (vitamin D3) 50 1 tab PO DAILY Supplement 06/11/20 03/30/22 History mcg (2,000 unit) chewable tablet insulin aspart U-100 100 unit/mL 10 units SQ AC Diabetes 06/15/21 03/30/22 History subcutaneous solution ipratropium 0.5 mg-albuterol 3 mg 3 ml IH QID Breathing problems 06/15/21 03/30/22 History (2.5 mg base)/3 mL nebulization
[2022-12-10 11:46] VITALS: BP 165/91; PULSE 84; RESP 18; O2SAT 93; BMI 44.4
== END ==
PROVIDERS: PCP Nurse Practitioner Family; Visit Provider Nurse Practitioner Family
DX: M54.2 Cervicalgia (principal); M54.12 Radiculopathy, cervical region; M54.50 Low back pain, unspecified; G89.29 Other chronic pain; M54.16 Radiculopathy, lumbar region
CPT/HCPCS: 99202; G0463

== ENCOUNTER 2023-02-21 13:19 | Emergency (ER) | payer MEDICARE, SELFPAY ==
[2023-02-21] VITALS (9 sets, daily range): BP systolic 126–180; BP diastolic 68–97; PULSE 68–84; RESP 16–21; TEMP 36.3–36.7; O2SAT 93–99; BMI 40.1
--- NOTE | 2023-02-21 13:28 | ECG_ITS ---
APPROVED REPORT Exam: Resting ECG HR:84 bpm ECG Measurements Heart Rate 84 AXES WY 163 P -59 QRSd 174 QRS -39 QT 416 T 90 QTc 458 Conclusion ECTOPIC ATRIAL RHYTHM LEFT AXIS DEVIATION [QRS AXIS < -30] LEFT BUNDLE BRANCH BLOCK [120+ ms QRS DURATION, 80+ ms Q/S IN V1/V2, 85+ ms R IN I/aVL/V5/V6] ABNORMAL ECG UNCONFIRMED REPORT Electronically signed by : Rohan Valencia MD 02/22/2023 17:50:00
--- NOTE | 2023-02-21 13:32 | CT_ITS ---
PROCEDURE INFORMATION: Exam: CT Abdomen And Pelvis With Contrast Exam date and time: 02/21/2023 3:19 PM Age: 82 years old Clinical indication: Abdominal pain; Generalized; Additional info: Periumbilical tenderness TECHNIQUE: Imaging protocol: Computed tomography of the abdomen and pelvis with contrast. Radiation optimization: All CT scans at this facility use at least one of these dose optimization techniques: automated exposure control; mA and/or kV adjustment per patient size (includes targeted exams where dose is matched to clinical indication); or iterative reconstruction. Contrast material: ISOVUE; Contrast volume: 75 ml; Contrast route: IV; REPORTING DATA: Count of CT and Cardiac NM exams in prior 12 months: This patient has received 0 known CTs and 0 known cardiac nuclear medicine studies in the 12 months prior to the current study. COMPARISON: CT ABDOMEN PELVIS WO CON 09/20/2021 9:52 PM FINDINGS: Liver: Hepatic steatosis. Gallbladder and bile ducts: Cholecystectomy. Pancreas: Normal. No ductal dilation. Spleen: Normal. No splenomegaly. Adrenal glands: Normal. No mass. Kidneys and ureters: Normal. No hydronephrosis. Stomach and bowel: Colonic diverticulosis. Appendix: No evidence of appendicitis. Intraperitoneal space: Unremarkable. No free air. No significant fluid collection. Vasculature: Unremarkable. No abdominal aortic aneurysm. Lymph nodes: Unremarkable. No enlarged lymph nodes. Urinary bladder: Unremarkable as visualized. Reproductive: Hysterectomy. Bones/joints: Multilevel degenerative changes of the lumbar spine. Soft tissues: Unremarkable. IMPRESSION: No acute finding.
--- NOTE | 2023-02-21 13:39 | HMH.EDGENADL ---
Discharge Plan Disposition Patient Disposition: Home, Self-Care Condition: Good Prescriptions Prescriptions: No Action allopurinol 100 mg tablet 100 mg PO DAILY Patient Comments: Take 1 tablet by mouth daily benazepril 40 mg tablet 40 mg PO DAILY atorvastatin 40 MG tablet 40 mg PO HS cholecalciferol (vitamin D3) 50 MCG tablet,chewable 1 tab PO DAILY torsemide 100 MG tablet 50 mg PO DAILY insulin detemir U-100 100 UNIT/ML insulin pen 10 units SQ HS Patient Comments: INJECT 10 UNITS SUBCUTANEOUSLY AT BEDTIME acetaminophen 325 MG tablet 650 mg PO Q4HP PRN (Reason: Fever Or Mild Pain) 0RF ondansetron HCl (PF) 4 MG/2 ML solution 4 mg IV Q8HP PRN (Reason: Nausea) 0RF ipratropium-albuterol 3 ML solution for nebulization 3 ml IH TIDRT insulin lispro 100 UNIT/ML solution 0 unit SQ ACHS insulin aspart U-100 100 UNIT/ML solution 10 units SQ AC Patient Comments: INJECT 10 UNITS SUBCUTANEOUSLY 5 TO 10 MINUTES BEFORE EACH MEAL ( THREE MEALS PER DAY) ipratropium-albuterol 3 ML solution for nebulization 3 ml IH QID potassium chloride 20 MEQ tablet,ER particles/crystals 20 meq PO BID ipratropium-albuterol 0.5 mg-3 mg(2.5 mg base)/3 mL solution for nebulization 3 ml inhalation Q6H azithromycin [Zithromax Z-Kameron] 250 mg tablet 250 mg PO DAILY Rx Instructions: start on day 2 of therapy Referrals Follow up/Referrals: Danish Emery MD [Primary Care Provider] - See instructions Activity Restrictions/Add. Instructions Additional Instructions/Restrictions: Please return to the emergency department if you experience any new or worsening symptoms. Clinical Impressions Clinical Impression: Weakness, Acute hypokalemia Instructions Patient Instructions: DI for Diarrhea and Traveler's Diarrhea -- Adult, DI for Diarrhea and Traveler's Diarrhea -- Child, DI for Nausea -- Adult, DI for Nausea -- Child Discharge ED Provider: Tayo Hairston Adult HPI <Jesus Oneil MD - Last Filed: 02/21/23 15:15> General Chief complaint: Nausea/Vomiting/Diarrhea Stated complaint: feels bad, upset stomach, low BP Time Seen by Provider: 02/21/23 13:27 History of Present Illness HPI narrative: Patient is a 82-year-old female with past medical history of diabetes, CKD, asthmatic bronchitis who presents emergency department for evaluation of weakness. Onset was acute, occurring over the last few days. There has been vague abdominal pain, persistent nausea. Last stool and void this morning. No other acute complaints at this time. Related Data Home Medications Medication Instructions Recorded Confirmed allopurinol 100 mg tablet 100 mg PO DAILY gout 05/15/20 12/10/22 benazepril 40 mg tablet 40 mg PO DAILY High blood pressure 05/15/20 12/10/22 atorvastatin 40 mg tablet 40 mg PO HS Cholesterol 06/11/20 12/10/22 cholecalciferol (vitamin D3) 50 1 tab PO DAILY Supplement 06/11/20 12/10/22 mcg (2,000 unit) chewable tablet insulin aspart U-100 100 unit/mL 10 units SQ AC Diabetes 06/15/21 12/10/22 subcutaneous solution ipratropium 0.5 mg-albuterol 3 mg 3 ml IH QID Breathing problems 06/15/21 12/10/22 (2.5 mg base)/3 mL nebulization soln potassium chloride 20 mEq 20 meq PO BID Supplement 06/15/21 12/10/22 tablet,extended release(part/cryst) torsemide 100 mg tablet 50 mg PO DAILY DIURETIC 09/20/21 12/10/22 insulin detemir U-100 100 unit/mL 10 units SQ HS Diabetes 09/21/21 12/10/22 (3 mL) subcutaneous pen insulin lispro 100 unit/mL 0 unit SQ ACHS Diabetes 03/30/22 12/10/22 subcutaneous solution ipratropium 0.5 mg-albuterol 3 mg 3 ml IH TIDRT COPD 03/30/22 12/10/22 (2.5 mg base)/3 mL nebulization soln azithromycin 250 mg tablet 250 mg PO DAILY Infection 12/10/22 12/10/22 (Zithromax Z-Kameron) ipratropium 0.5 mg-albuterol 3 mg 3 ml inhalation Q6H Breathing 12/10/22 12/10/22 (2.5 mg base)/3 mL nebulization P
--- NOTE | 2023-02-21 13:42 | PC.NURSE ---
FSBS: [id number]
[2023-02-21 13:43] LABS: Coronavirus 19, PCR Not Detected (NotDetected); Influenza A, PCR Not Detected (NotDetected); Influenza B, PCR Not Detected (NotDetected)
[2023-02-21 13:44] LABS: Basophils % 0.4 % (0.1-2.0); Eosinophils # 0.1 K/mm3 (0.0-0.4); Hematocrit 48.4 % (37.0-47.0); Hemoglobin 17.3 g/dL (12.2-16.2); Lymphocytes # 1.8 K/mm3 (0.7-4.5); Mean Corpuscular HGB Conc 35.7 g/dL (31.8-35.4); Mean Corpuscular Hemoglobin 31.1 pg (27.0-31.2); Mean Corpuscular Volume 87.3 fl (81-99); Mean Platelet Volume 7.8 fl (7.4-10.4); Monocytes # 0.7 K/mm3 (0.1-1.0); Neutrophils # 8.7 K/mm3 (1.8-7.8); Neutrophils % 76.6 % (37.0-80.0); Platelet Count 321 K/mm3 (142-424); Red Blood Count 5.55 M/mm3 (4.20-5.40); Red Cell Distribution Width 12.7 % (11.5-17.5); White Blood Count 11.3 K/mm3 (4.8-10.8)
[2023-02-21 13:49] LABS: POC Glucose,Bedside 289 (70-110)
[2023-02-21 13:51] LABS: Chloride 81 mmol/L (98-107)
[2023-02-21 13:52] LABS: Sodium 130 mmol/L (136-145)
--- NOTE | 2023-02-21 13:52 | XR_ITS ---
PROCEDURE INFORMATION: Exam: XR Chest Exam date and time: 02/21/2023 2:28 PM Age: 82 years old Clinical indication: Cough; Additional info: Weak TECHNIQUE: Imaging protocol: Radiologic exam of the chest. Views: 1 view. COMPARISON: CR XR CHEST PORTABLE 04/04/2022 3:42 PM FINDINGS: Lungs: Clear lungs. Pleural spaces: No pneumothorax. No sizable pleural effusion. Heart/Mediastinum: No cardiomegaly. Bones/joints: Unremarkable. IMPRESSION: Clear lungs.
[2023-02-21 13:54] LABS: Alanine Aminotransferase 36 U/L (12-78); Alkaline Phosphatase 83 U/L (38-126); Anion Gap 12.9 mEq/L (5-15); Aspartate Amino Transferase 46 U/L (14-36); Bilirubin,Total 0.6 mg/dl (0.2-1.3); Blood Urea Nitrogen 76 mg/dl (7-17); Carbon Dioxide 39 mmol/L (22.0-30.0); Creatinine Clearance Estimated 40 mL/min (50-200); Estimated Glomerular Filt Rate 29 ml/min (>60); GFR (African American) 35 ML/MIN (>60); Lipase 233 U/L (23-300)
[2023-02-21 13:55] LABS: Albumin Level 4.8 g/dl (3.5-5.0); Albumin/Globulin Ratio 1.5 (1.1-1.8); Globulin 3.2 g/dL (1.3-3.2); Glucose 317 mg/dl (74-100); Lactic Acid 1.9 mmol/L (0.7-2.1)
[2023-02-21 14:00] LABS: Potassium 2.9 mmoL/L (3.5-5.1)
[2023-02-21 14:01] LABS: Magnesium 2.1 mg/dl (1.6-2.3)
--- NOTE | 2023-02-21 14:04 | PC.NURSE ---
Pt ambulatory to bathroom and back to bed with use of walker and 1 person assist. No other needs voiced. Call light within reach.
[2023-02-21 14:06] LABS: Troponin I 0.07 ng/ml (0.00-0.034)
--- NOTE | 2023-02-21 14:10 | PC.NURSE ---
Pt gone to RAD via stretcher
--- NOTE | 2023-02-21 14:24 | PC.NURSE ---
pt return from CT via stretcher
[2023-02-21 14:28] LABS: Microscopic, Urine URINE MICROSCOPIC (MICROSCOPIC)
--- NOTE | 2023-02-21 14:33 | PC.NURSE ---
This nurse accompanied pt to ct scan. To monitor vitals and signs of anaphylactic reaction to contrast. Per Dr. Oneil prepared 0.3mg of Epinephrine IM in preparation for possible reaction administration. Pt tolerated well. No signs of hives, rash itching, or facial swelling at this time. No s/s of SOA or facial swelling.
[2023-02-21 14:38] LABS: Appearance,Urine CLEAR (Clear); Bilirubin,Urine Negative (Negative); Blood, Urine TRACE-I (Negative); Color,Urine YELLOW (Yellow); Glucose,Urine (UA) TRACE (Negative); Ketones,Urine Negative (Negative); Leukocyte Esterase,Urine 2+ (Negative); Nitrate,Urine Negative (Negative); Protein,Urine Negative (Negative); Urobilinogen,Urine 0.2 EU/dl (0.2)
[2023-02-21 14:55] LABS: Bacteria,Urine Trace /lpf; RBC,Urine Occasional #/hpf (0-3)
--- NOTE | 2023-02-21 16:03 | PC.NURSE ---
assited pt to bsc
[2023-02-21 17:26] LABS: Troponin I 0.06 ng/ml (0.00-0.034)
--- NOTE | 2023-02-21 18:09 | PC.NURSE ---
Pt assisted to sit up on side of bed per request. No other needs voiced. Call light remains within reach.
--- NOTE | 2023-02-21 18:23 | PC.NURSE ---
pt ambulated to restroom and back to her room with walker, standby staff assist only. Pt tolerated well.
--- NOTE | 2023-02-26 08:33 | PC.NURSE ---
urine culture on worklist. notified dr. negrete who reviewed results- states does not need treatment.
== END 2023-02-21 18:36 | disposition home or self-care (01) ==
PROVIDERS: Emergency Medicine; Emergency Provider Emergency Medicine; PCP Family Medicine
DX: E87.6 Hypokalemia (principal); I44.7 Left bundle-branch block, unspecified; R53.1 Weakness; B96.89 Other specified bacterial agents as the cause of diseases classified elsewhere; J44.9 Chronic obstructive pulmonary disease, unspecified; I25.10 Atherosclerotic heart disease of native coronary artery without angina pectoris; I11.9 Hypertensive heart disease without heart failure; E11.9 Type 2 diabetes mellitus without complications; Z79.4 Long term (current) use of insulin; Z87.891 Personal history of nicotine dependence
CPT/HCPCS: 36415; 71045; 74177; 80053; 81001; 82962; 83605; 83690; 83735; 84484; 85025; 87086; 87636; 93005; 96361; 96365; 96367; 96375; 99285; Q9967

== ENCOUNTER 2023-03-05 13:33 | Emergency (ER) | payer MEDICARE, SELFPAY ==
[2023-03-05] VITALS (10 sets, daily range): BP systolic 125–155; BP diastolic 59–95; PULSE 82–89; RESP 17–24; TEMP 36.6; O2SAT 95–99; BMI 40.7
[2023-03-05 13:57] LABS: POC Glucose,Bedside 289 (70-110)
--- NOTE | 2023-03-05 14:03 | XR_ITS ---
FINAL REPORT TECHNIQUE: Single view chest CLINICAL HISTORY: dyspnea copd COMPARISON: 02/21/2023 FINDINGS: A single view of the chest was obtained. The heart is at the upper limits of normal in size. The lungs are clear. There is no pneumothorax. Osseous structures are unremarkable. IMPRESSION: No acute cardiopulmonary process. Reviewed, Interpreted and Dictated by Antwon Yun MD Transcribed by Prisca Flowers Authenticated and [facility]
--- NOTE | 2023-03-05 14:06 | HMH.EDGENADL ---
Discharge Plan Disposition Patient Disposition: Home, Self-Care Prescriptions Prescriptions: New nitrofurantoin monohyd/m-cryst [Macrobid] 100 mg capsule 100 mg PO BID 5 Days Qty: 10 0RF Rx Instructions: must administer with a meal/food No Action allopurinol 100 mg tablet 100 mg PO DAILY Patient Comments: Take 1 tablet by mouth daily benazepril 40 mg tablet 40 mg PO DAILY atorvastatin 40 MG tablet 40 mg PO HS cholecalciferol (vitamin D3) 50 MCG tablet,chewable 1 tab PO DAILY torsemide 100 MG tablet 50 mg PO DAILY insulin detemir U-100 100 UNIT/ML insulin pen 10 units SQ HS Patient Comments: INJECT 10 UNITS SUBCUTANEOUSLY AT BEDTIME ondansetron HCl (PF) 4 MG/2 ML solution 4 mg IV Q8HP PRN (Reason: Nausea) 0RF insulin lispro 100 UNIT/ML solution 0 unit SQ ACHS insulin aspart U-100 100 UNIT/ML solution 10 units SQ AC Patient Comments: INJECT 10 UNITS SUBCUTANEOUSLY 5 TO 10 MINUTES BEFORE EACH MEAL ( THREE MEALS PER DAY) potassium chloride 20 MEQ tablet,ER particles/crystals 20 meq PO BID ipratropium-albuterol 0.5 mg-3 mg(2.5 mg base)/3 mL solution for nebulization 3 ml inhalation Q6H Referrals Follow up/Referrals: Norma Au APRN [Primary Care Provider] - See instructions Wolf Garcia MD [Staff Physician] - See instructions Activity Restrictions/Add. Instructions Additional Instructions/Restrictions: Call your family doctor to establish care for this visit to the emergency department and schedule follow-up within 48 hours to ensure improvement. If you have any worsening of your condition or any other concerning signs or symptoms, return to the emergency department or your primary care doctor for further evaluation. Take antibiotic twice daily for 5 days for urinary tract infection. Talk to family doctor about redrawing labs to ensure improvement. Continue taking torsemide as prescribed Clinical Impressions Clinical Impression: Generalized weakness, Acute UTI Discharge ED Provider: Flip Carrillo General Adult HPI <Obed Lemus MD - Last Filed: 03/05/23 14:58> General Chief complaint: Recheck/Abnormal Lab/Rx Stated complaint: low blood pressure/ high sugar/ low potassium Time Seen by Provider: 03/05/23 13:53 Mode of Arrival: Wheelchair Source of Information: Patient Limitations: No Limitations Description of Symptoms (Recalled from ER Triage Doc. by RN): Presents to ED with c/o high BS, low BP, and generalized weakness since yesterday. Patient is a type 2 diabetic. Denies fever and N/V/D. History of Present Illness HPI narrative: Patient is an 82-year-old female presents today with generalized weakness. Was here few days ago with similar complaints was found to be hypokalemic had a potassium replaced but did not feel significantly better. Urinalysis was abnormal but patient had no urinary tract infection symptoms at that time so treatment was deferred. Patient denies any vomiting diarrhea pain or any other focal complaints. Just generalized and profound weakness. She had mildly elevated troponin with no delta had a myocardial injury a few days ago but no evidence of myocardial infarction or ACS. No increasing lower extremity edema or orthopnea. No fevers chills or any other complaints from review of system standpoint. No definitive history of heart failure however the patient is on diuretics and states that these have been changed around recently from her kidney doctor she has been on torsemide as well as spironolactone. Related Data Home Medications Medication Instructions Recorded Confirmed allopurinol 100 mg tablet 100 mg PO DAILY gout 05/15/20 03/05/23 benazepril 40 mg tablet 40 mg PO DAILY High blood pressure 05/15/20 03/05/23 atorvastatin 40 mg tablet 40 mg PO HS Cholesterol 06/11/20 03/05/23 cholecalciferol (vitamin D3) 50 1 tab PO DAILY Supplement 06/11/20 03/05/23 mcg (2,000 unit) ramin
--- NOTE | 2023-03-05 14:18 | ECG_ITS ---
APPROVED REPORT Exam: Resting ECG HR:82 bpm ECG Measurements Heart Rate 82 AXES AL 180 P -20 QRSd 168 QRS -42 QT 415 T 97 QTc 453 Conclusion SINUS RHYTHM LEFT AXIS DEVIATION [QRS AXIS < -30] LEFT BUNDLE BRANCH BLOCK [120+ ms QRS DURATION, 80+ ms Q/S IN V1/V2, 85+ ms R IN I/aVL/V5/V6] ABNORMAL ECG UNCONFIRMED REPORT Electronically signed by : Rohan Valencia MD 03/05/2023 16:06:39
--- NOTE | 2023-03-05 14:30 | PC.NURSE ---
Respiratory notified of VBG order, blood in lab
[2023-03-05 14:35] LABS: Basophils % 0.2 % (0.1-2.0); Eosinophils # 0.1 K/mm3 (0.0-0.4); Eosinophils % 1.3 % (0.1-12.0); Hematocrit 50.1 % (37.0-47.0); Hemoglobin 16.9 g/dL (12.2-16.2); Lymphocytes # 0.7 K/mm3 (0.7-4.5); Mean Corpuscular HGB Conc 33.8 g/dL (31.8-35.4); Mean Corpuscular Hemoglobin 30.5 pg (27.0-31.2); Mean Corpuscular Volume 90.4 fl (81-99); Mean Platelet Volume 8.8 fl (7.4-10.4); Monocytes # 0.7 K/mm3 (0.1-1.0); Monocytes % 6.5 % (1.7-9.3); Neutrophils # 9.2 K/mm3 (1.8-7.8); Platelet Count 268 K/mm3 (142-424); Red Blood Count 5.55 M/mm3 (4.20-5.40); White Blood Count 10.7 K/mm3 (4.8-10.8)
[2023-03-05 14:36] LABS: MANUAL DIFFERENTIAL MANUAL DIFFERENTIAL (MANUAL DIFF)
[2023-03-05 14:40] LABS: Chloride 83 mmol/L (98-107); Sodium 129 mmol/L (136-145)
[2023-03-05 14:41] LABS: Potassium 3.6 mmoL/L (3.5-5.1)
[2023-03-05 14:43] LABS: Alanine Aminotransferase 29 U/L (12-78); Albumin Level 4.1 g/dl (3.5-5.0); Albumin/Globulin Ratio 1.5 (1.1-1.8); Alkaline Phosphatase 57 U/L (38-126); Anion Gap 10.6 mEq/L (5-15); Aspartate Amino Transferase 41 U/L (14-36); Bilirubin,Total 1.1 mg/dl (0.2-1.3); Blood Urea Nitrogen 62 mg/dl (7-17); Carbon Dioxide 39 mmol/L (22.0-30.0); Creatinine Clearance Estimated 46 mL/min (50-200); Estimated Glomerular Filt Rate 33 ml/min (>60); GFR (African American) 40 ML/MIN (>60); Globulin 2.7 g/dL (1.3-3.2); Total Protein,Serum 6.8 g/dl (6.3-8.2)
[2023-03-05 14:43] LABS: VBG Base Excess 6.1 mmol/L (-2.4-2.3); VBG HCO3 29.6 mmol/L (23-30); VBG Oxygen Saturation 96.2 % (50-70); VBG PCO2 41.1 mmol/L (35-51); VBG PH 7.48 mmol/L (7.31-7.41); VBG PO2 76.4 mmol/L (28-40); VBG Total CO2 30.9 mmol/L (23-27)
[2023-03-05 14:44] LABS: Calcium 9.3 mg/dl (8.4-10.2); Glucose 281 mg/dl (74-100); Phosphorous 2.8 mg/dl (2.5-4.5)
[2023-03-05 14:45] LABS: Magnesium 1.9 mg/dl (1.6-2.3)
[2023-03-05 14:54] LABS: NT Pro Brain Natriuretic Pep. 2570 pg/mL (0-450)
[2023-03-05 14:56] LABS: Troponin I 0.09 ng/ml (0.00-0.034)
[2023-03-05 15:04] LABS: Eosinophils % 1 % (0-3); Lymphocytes % 17 % (10-50); Monocytes % 1 % (2-9); Neutrophils % 81 % (42-76); Platelet Estimate Normal; RBC Morphology Normal; Total Cells Counted 100
[2023-03-05 15:13] LABS: Microscopic, Urine URINE MICROSCOPIC (MICROSCOPIC)
[2023-03-05 15:15] LABS: Thyroid Stimulating Hormone 1.48 uIU/mL (0.465-4.68)
[2023-03-05 15:32] LABS: Appearance,Urine CLEAR (Clear); Bilirubin,Urine Negative (Negative); Blood, Urine TRACE-I (Negative); Color,Urine YELLOW (Yellow); Glucose,Urine (UA) TRACE (Negative); Ketones,Urine Negative (Negative); Leukocyte Esterase,Urine 2+ (Negative); Nitrate,Urine Negative (Negative); Protein,Urine Negative (Negative); Specific Gravity, Urine <= 1.005 (1.005-1.030); Urobilinogen,Urine 0.2 EU/dl (0.2)
[2023-03-05 15:56] LABS: Bacteria,Urine 2+ /lpf; RBC,Urine Occasional #/hpf (0-3); Squamous Epithelial Cell,Urine Occasional #/hpf (0-5)
--- NOTE | 2023-03-05 16:20 | PC.NURSE ---
Rounded on patient; call light within reach of patient
--- NOTE | 2023-03-05 16:35 | PC.NURSE ---
Rounded on patient; call light within reach of patient
--- NOTE | 2023-03-05 17:12 | PC.NURSE ---
Second trop drawn and sent to LAB
[2023-03-05 18:10] LABS: Troponin I 0.09 ng/ml (0.00-0.034)
--- NOTE | 2023-03-05 18:30 | PC.NURSE ---
Discharge instructions provided and discussed with patient with no further questions; patient wheeled out ot vehicle no acute distress noted upon discharge
--- NOTE | 2023-03-08 09:51 | PC.NURSE ---
urine culture results show mixed urogential alvaro, MD Denny notified, no further action, contaminated.
== END 2023-03-05 18:30 | disposition home or self-care (01) ==
PROVIDERS: Student in an Organized Health Care Education/Training Program; Emergency Provider Emergency Medicine; PCP Nurse Practitioner Family
DX: N39.0 Urinary tract infection, site not specified (principal); B96.89 Other specified bacterial agents as the cause of diseases classified elsewhere; E87.1 Hypo-osmolality and hyponatremia; R53.1 Weakness; E11.65 Type 2 diabetes mellitus with hyperglycemia; I25.10 Atherosclerotic heart disease of native coronary artery without angina pectoris; I11.9 Hypertensive heart disease without heart failure; J44.9 Chronic obstructive pulmonary disease, unspecified; Z79.4 Long term (current) use of insulin
CPT/HCPCS: 71045; 80053; 81001; 82803; 82962; 83735; 83880; 84100; 84443; 84484; 85007; 85025; 87086; 93005; 96374; 99284; J2405

== ENCOUNTER 2023-12-06 06:04 | Emergency (ER) | payer MEDICARE, SELFPAY ==
[2023-12-06] VITALS (9 sets, daily range): BP systolic 102–154; BP diastolic 58–97; PULSE 59–92; RESP 11–22; TEMP 36.7–37.2; O2SAT 94–98; BMI 42.5
--- NOTE | 2023-12-06 06:12 | ECG_ITS ---
APPROVED REPORT Exam: Resting ECG HR:87 bpm ECG Measurements Heart Rate 87 AXES QRSd 159 QRS -40 QT 407 T 120 QTc 451 Conclusion ATRIAL FIBRILLATION LEFT AXIS DEVIATION [QRS AXIS < -30] LEFT BUNDLE BRANCH BLOCK [120+ ms QRS DURATION, 80+ ms Q/S IN V1/V2, 85+ ms R IN I/aVL/V5/V6] ABNORMAL ECG Electronically signed by : ROXANA PARR, 12/07/2023 07:20:15
--- NOTE | 2023-12-06 06:16 | XR_ITS ---
FINAL REPORT TECHNIQUE: Chest PA & Lateral CLINICAL HISTORY: soa wheezing COMPARISON: 02/21/2023 FINDINGS: 2 views of the chest were performed. The heart size is normal. There are some calcified hilar lymph nodes. The mediastinum is within normal limits. There is no acute cardiopulmonary process. There are no pleural effusions. There is no pneumothorax. The bony thorax appears intact. IMPRESSION: No acute cardiopulmonary process. Reviewed, Interpreted and Dictated by Antwon Yun MD Transcribed by Niurka Ferguson Authenticated and [facility]
--- NOTE | 2023-12-06 06:18 | ED_ITS ---
<Statement entered by Obed Lemus MD - 12/06/23 06:59> I was consulted by the CLIFFORD, and we discussed the complexity of the problems being addressed. I approved the treatment and management plan for this patient's care in the emergency department, thus performing a substantive portion of the medical decision making. Obed Lemus MD, LEWIS, FACEP Discharge Plan Disposition Patient Disposition: Home, Self-Care Prescriptions Prescriptions: New azithromycin 250 mg tablet See Rx Instructions .ROUTE .COMPLEX Qty: 6 0RF Rx Instructions: For 250 mg dose pack: take 500 mg today (day 1), then 250 mg for 4 days (days 2-5) benzonatate 100 mg capsule 100 mg PO TID PRN (Reason: cough) 5 Days Qty: 20 0RF albuterol sulfate 90 mcg/actuation HFA aerosol inhaler 4 inh inhalation Q4H PRN (Reason: shortness of breath or wheezing) Qty: 8.5 0RF Rx Instructions: 4 puffs every 4 hours for 48 hours then as needed for shortness of breath or wheezing following prednisone 50 mg tablet 50 mg PO DAILY 5 Days Qty: 5 0RF Rx Instructions: Please begin 1 day after ED visit No Action allopurinol 100 mg tablet 100 mg PO DAILY Patient Comments: Take 1 tablet by mouth daily benazepril 40 mg tablet 40 mg PO DAILY atorvastatin 40 MG tablet 40 mg PO HS cholecalciferol (vitamin D3) 50 MCG tablet,chewable 1 tab PO DAILY torsemide 100 MG tablet 50 mg PO DAILY insulin detemir U-100 100 UNIT/ML insulin pen 10 units SQ HS Patient Comments: INJECT 10 UNITS SUBCUTANEOUSLY AT BEDTIME ondansetron HCl (PF) 4 MG/2 ML solution 4 mg IV Q8HP PRN (Reason: Nausea) 0RF insulin lispro 100 UNIT/ML solution 0 unit SQ ACHS nitrofurantoin monohyd/m-cryst [Macrobid] 100 mg capsule 100 mg PO BID 5 Days Qty: 10 0RF Rx Instructions: must administer with a meal/food insulin aspart U-100 100 UNIT/ML solution 10 units SQ AC Patient Comments: INJECT 10 UNITS SUBCUTANEOUSLY 5 TO 10 MINUTES BEFORE EACH MEAL ( THREE MEALS PER DAY) potassium chloride 20 MEQ tablet,ER particles/crystals 20 meq PO BID ipratropium-albuterol 0.5 mg-3 mg(2.5 mg base)/3 mL solution for nebulization 3 ml inhalation Q6H Referrals Follow up/Referrals: Norma Au APRN [Primary Care Provider] - See instructions Wolf Garcia MD [Staff Physician] - See instructions Trey Earl MD [Physician] - See instructions Activity Restrictions/Add. Instructions Additional Instructions/Restrictions: I recommend that you follow-up outpatient with our senior control systems engineer and international recruiter. Return with any significant worsening of her symptoms. Clinical Impressions Clinical Impression: Asthma exacerbation in COPD, CAP (community acquired pneumonia), Myocardial injury Print Language Print Language: Latvian Discharge ED Provider: Obed Lemus HPI <Arron Woods MD - Last Filed: 12/06/23 06:56> General Chief Complaint: Shortness of Breath/Dyspnea Stated Complaint: Cough, SOA Time Seen by Provider: 12/06/23 06:11 Mode of Arrival: Wheelchair Source of Information: Patient Limitations: No Limitations Description of Symptoms (Recalled from ER Triage Doc. by RN): Pt presents to ED for SOB/cough that started on Wednesday and has gotten worse. Pt is on 2L baseline. Pt states she's not having any pain, just trouble breathing. Pt is A&O*4. History of Present Illness HPI narrative: 83-year-old female presents to the ER for complaints of shortness of breath and cough. Patient reports that started Wednesday, got better, then got worse again. Patient reports wheezing. She states she took her last breathing treatment around 11 PM and took her inhaler around 4:30 AM. Patient reports no pain, no nausea, no vomiting, no headache, numbness, tingling, weakness, fever, or other associated symptoms. Patient has redness of the right eye but reports this is from recent surgery. Related Data Home Medications ?Medication ?Instructions ?Recorded ?Confirmed allopurinol 100 mg tablet 100 mg PO DAILY gout 05/15/20 03/05/23 benazepril 40 mg tablet 40 mg PO DAILY High blood pressure 05/15/20 03/05/23 atorvastatin 40 mg tablet 40 mg PO HS Cholesterol 06/11/20 03/05/23 cholecalciferol (vitamin D3) 50 1 tab PO DAILY Supplement 06/11/20 03/05/23 mcg (2,000 unit) chewable tablet insulin aspart U-100 100 unit/mL 10 units SQ AC Diabetes 06/15/21 03/05/23 subcutaneous solution potassium chloride 20 mEq 20 meq PO BID Supplement 06/15/21 03/05/23 tablet,extended release(part/cryst) torsemide 100 mg tablet 50 mg PO DAILY DIURETIC 09/20/21 03/05/23 insulin detemir U-100 100 unit/mL 10 units SQ HS Diabetes 09/21/21 03/05/23 (3 mL) subcutaneous pen insulin lispro 100 unit/mL 0 unit SQ ACHS Diabetes 03/30/22 03/05/23 subcutaneous solution ipratropium 0.5 mg-albuterol 3 mg 3 ml inhalation Q6H Breathing 12/10/22 03/05/23 (2.5 mg base)/3 mL nebulization Problems soln Previous Rx's ?Medication ?Instructions ?Recorded ondansetron HCl (PF) 4 mg/2 mL 4 mg (2 mL) IV Q8HP PRN Nausea 09/22/21 injection solution nitrofurantoin 100 mg PO BID 5 days #10 caps 03/05/23 monohydrate/macrocrystals 100 mg capsule (Macrobid) albuterol sulfate 90 mcg/actuation 4 inh inhalation Q4H PRN shortness 12/06/23 aerosol inhaler of breath or wheezing #8.5 grams azithromycin 250 mg tablet See Rx Instructions PO .COMPLEX #6 12/06/23 tabs benzonatate 100 mg capsule 100 mg PO TID PRN cough 5 days #20 12/06/23 caps prednisone 50 mg tablet 50 mg PO DAILY 5 days #5 tabs 12/06/23 Allergies Allergy/AdvReac Type Severity Reaction Status Date / Time codeine [CODEINE] Allergy Mild Verified 03/30/22 11:17 iodine [IODINE] Allergy Mild Verified 03/30/22 11:17 latex [LATEX] Allergy Mild Verified 03/30/22 11:17 oxycodone [OXYCODONE] Allergy Mild Verified 03/30/22 11:17 Sulfa (Sulfonamide Allergy Mild Verified 03/30/22 11:17 Antibiotics) [SULFA (SULFONAMIDE ANTIBIOTICS)] Cephalosporins Allergy Verified 12/10/22 12:21 doxycycline Allergy Verified 12/10/22 12:21 exenatide [From Byetta] Allergy Verified 12/10/22 12:21 glyburide Allergy Verified 12/10/22 12:21 hyoscyamine [From Levbid] Allergy Verified 12/10/22 12:21 levofloxacin [From Levaquin] Allergy Verified 12/10/22 12:21 PCN Allergy Mild Uncoded 05/15/20 10:05 PFSH <Arron Woods MD - Last Filed: 12/06/23 06:56> [facility] Disclaimer: The information contained in this section may have been updated after the patient was seen, as this information can be updated by other users. Medical History (Updated 12/06/23 @ 08:46 by Obed Lemus MD) MARCELA (obstructive sleep apnea) Diabetes Brain tumor Diastolic dysfunction CAD (coronary artery disease) HTN (hypertension) COPD (chronic obstructive pulmonary disease) Surgical History H/O cardiac catheterization H/O: hysterectomy History of appendectomy Hx of tonsillectomy History of cholecystectomy H/O oophorectomy Family History (Updated 12/10/22 @ 12:06 by Tricia Rosa, RN) Other Hypertension Stroke Social History (Updated 12/10/22 @ 12:11 by Tricia Rosa, MARIXA) Smoking Status: Unknown if ever smoked second hand exposure: No alcohol intake: never substance use type: denies use current occupational status: retired Travel in the last 8 weeks: None household members: none housing: house caffeine: No <Arron Woods MD - Last Filed: 12/06/23 06:56> ROS Obtained: Yes All systems reviewed & no additional complaints except as documented Positive ROS per HPI Physical Exam <Arron Woods MD - Last Filed: 12/06/23 06:56> General General appearance: alert and in no apparent distress Head Head exam: atraumatic and normocephalic Eye Eye exam: Present PERRL and EOMI ENT ENT exam: Present mucous membranes moist Neck Neck exam: Present normal inspection and full ROM Chest Chest inspection: Present symmetric chest wall rise Respiratory Respiratory exam: Present wheezes (Bilateral, patient has prolonged expiratory phase, majority of wheezing is coming from the throat/upper airway); Absent respiratory distress or stridor Cardiovascular Cardiovascular exam: Present regular rate and normal rhythm Abdominal Exam Abdominal exam: Present soft; Absent distention or tenderness Extremities Exam Extremities exam: Present full ROM; Absent edema Neurological Exam Neurological exam: Present alert and oriented X3; Absent motor sensory deficit Psychiatric Psychiatric exam: Present normal affect and normal mood Skin Skin exam: Present warm and dry HEART Score <Arron Woods MD - Last Filed: 12/06/23 06:56> HEART Score HEART Score assessment performed?: No <Obed Lemus MD - Last Filed: 12/06/23 10:24> HEART Score History (anamnesis): Slightly suspicious ECG: Non-specific disturbance Age: >65 years Risk factors: 3 or more risk factors Troponin: 1-3x normal limit HEART Score: 6 Critical Care <Arron Woods MD - Last Filed: 12/06/23 06:56> Critical Care Time Critical Care Time: No <Obed Lemus MD - Last Filed: 12/06/23 10:24> Critical Care Time Critical Care Time: Yes Attestation: On 12/06/23, the high probability of a clinically significant, sudden or life threatening deterioration of the following system(s) required my full and direct attention, intervention and personal management. The time I documented below is in addition to time spent performing reported procedures but includes the following listed in this critical care notation. Total Time Total Critical Care Time: 35 Medical Decision Making <Arron Woods MD - Last Filed: 12/06/23 06:56> Medical Records Medical records reviewed: Yes I reviewed the patient's medical records. MR Comment: Patient has been seen by Dr. Ryan with a history of Cervical radiculopathy. Patient was scheduled for cervical epidural steroid injection in november 2022. Oneal Inquiry Pt receiving controlled substance: No Vital Signs Vital Signs: 12/06/23 06:05 12/06/23 06:34 12/06/23 06:34 Temperature 98.9 F Temperature Source Oral Pulse Rate 61 59 L Pulse Rate [Left] 92 H Respiratory Rate 22 Blood Pressure Blood Pressure [Right Arm] 102/85 L Blood Pressure Mean [Right Arm] 90 02 Sat by Pulse Oximetry 95 Oxygen Delivery Method Nasal Cannula Oxygen Flow Rate (LPM) 2 12/06/23 07:01 12/06/23 07:30 12/06/23 08:00 Temperature Temperature Source Pulse Rate 82 70 82 Pulse Rate [Left] Respiratory Rate 11 L 14 21 Blood Pressure 146/97 H 145/59 H 117/64 Blood Pressure [Right Arm] Blood Pressure Mean [Right Arm] 02 Sat by Pulse Oximetry 96 94 L 98 Oxygen Delivery Method Nasal Cannula Nasal Cannula Nasal Cannula Oxygen Flow Rate (LPM) 2 2 2 12/06/23 08:29 12/06/23 09:00 Temperature Temperature Source Pulse Rate 82 85 Pulse Rate [Left] Respiratory Rate 17 21 Blood Pressure 140/58 L 154/70 H Blood Pressure [Right Arm] Blood Pressure Mean [Right Arm] 02 Sat by Pulse Oximetry 96 96 Oxygen Delivery Method Room Air Nasal Cannula Oxygen Flow Rate (LPM) 2 Lab Data Labs: Lab Results 12/06/23 06:16: VBG pH 7.49 H, VBG pCO2 36.4, VBG pO2 127.1 H, VBG HCO3 27.4, V BG Total CO2 28.5 H, VBG O2 Saturation 98.8 H, VBG Base Excess 4.1 H, VBG Lactic Acid 1.3 12/06/23 06:41: WBC 9.6, RBC 5.18, Hgb 15.5, Hct 49.5 H, MCV 95.6, MCH 29.9, M CHC 31.2 L, RDW 13.7, Plt Count 252, MPV 7.7, Neut % (Auto) 69.3, Lymph % (Auto) 18.0, Elbert % (Auto) 7.1, Eos % (Auto) 5.2, Baso % (Auto) 0.4, Neut # (Auto) 6.7, Lymph # (Auto) 1.7, Elbert # (Auto) 0.7, Eos # (Auto) 0.5 H, Baso # (Auto) 0.0, PT 11.6, INR 1.04, Sodium 135 L, Potassium 4.6, Chloride 102, Carbon Dioxide 28, Anion Gap 9.6, BUN 43 H, Creatinine 1.20 H, Estimated Creat Clear 28, Estimated GFR 43 L, Est GFR ( Amer) 52 L, Glucose 129 H, Calcium 9.5, Total Bilirubin 1.2, AST 39 H, ALT 23, Alkaline Phosphatase 58, Troponin I 0.05 H, N T-Pro-B Natriuret Pep 731 H, Total Protein 6.5, Albumin 3.9, Globulin 2.6, Albumin/Globulin Ratio 1.5 12/06/23 09:30: Troponin I 0.04 H 12/06/23 06:41 12/06/23 06:41 Response Orders (Tests/Meds): ED MEDICATIONS Discontinued Medications Generic Name Dose Route Start Last Admin Trade Name [place] PRN Reason Stop Dose Admin Albuterol/Ipratropium 9 ml 12/06/23 06:16 12/06/23 06:33 Ipratropium/Albuterol 3 Ml Neb IH 12/06/23 06:17 9 ml ONCE ONE Administration Morphine Sulfate 4 mg 12/06/23 08:34 12/06/23 08:36 Morphine 2mg/Ml Syringe IM 12/06/23 08:35 Not Given ONCE ONE ORDERS Category Date Time Status CXR 2 view (NOT portable) [XR chest 2V] Stat Exams 12/06/23 06:16 Completed BNP [NT Pro Brain Natriuretic Pep.] Stat Lab 12/06/23 06:41 Completed CBC w/Auto Diff [Complete Blood Count Auto Diff] Stat Lab 12/06/23 06:41 Completed CMP [Comprehensive Metabolic Panel] Stat Lab 12/06/23 06:41 Completed PT INR [Prothrombin Time INR] Stat Lab 12/06/23 06:41 Completed Trop I [Troponin I] Stat Lab 12/06/23 06:41 Completed Troponin I Q3H Lab 12/06/23 09:30 Completed Troponin I Q3H Lab 12/06/23 12:30 Ordered VBG [Venous Blood Gas] Stat RT 12/06/23 06:16 Completed MDM Narrative Medical Decision Narrative: In summary, this 83-year-old female presents to the emergency department today with difficulty breathing, wheezing. On initial evaluation patient is hemodynamically stable, afebrile, patient has mild wheezing in the bilateral lungs, prolonged expiratory phase, majority of her wheezing is coming from the upper airway, she is saturating 97% on her home 2 L nasal cannula, no peripheral edema, cardiac exam reassuring, remainder of exam benign. Differential diagnosis includes but is not limited to COPD exacerbation, hypercarbia, CHF exacerbation, pneumonia, electrolyte abnormality, viral syndrome, I considered the possibility of ACS though I have low suspicion for this. Patient is not tachycardic, hypotensive, hypoxic, and has no chest pain so I have low suspicion for PE though it was considered. Based on these concerns, I ordered cardiac workup, chest x-ray, BNP, VBG. ECG personally interpreted demonstrates atrial fibrillation, rate 87, left axis deviation, left bundle branch block, no STEMI. Patient received DuoNebs for treatment. Patient handed off to Dr. Lemus in stable condition while receiving DuoNeb. Labs and imaging pending <Obed Lemus MD - Last Filed: 12/06/23 10:24> Vital Signs Vital Signs: 12/06/23 06:05 12/06/23 06:34 12/06/23 06:34 Temperature 98.9 F Temperature Source Oral Pulse Rate 61 59 L Pulse Rate [Left] 92 H Respiratory Rate 22 Blood Pressure Blood Pressure [Right Arm] 102/85 L Blood Pressure Mean [Right Arm] 90 02 Sat by Pulse Oximetry 95 Oxygen Delivery Method Nasal Cannula Oxygen Flow Rate (LPM) 2 12/06/23 07:01 12/06/23 07:30 12/06/23 08:00 Temperature Temperature Source Pulse Rate 82 70 82 Pulse Rate [Left] Respiratory Rate 11 L 14 21 Blood Pressure 146/97 H 145/59 H 117/64 Blood Pressure [Right Arm] Blood Pressure Mean [Right Arm] 02 Sat by Pulse Oximetry 96 94 L 98 Oxygen Delivery Method Nasal Cannula Nasal Cannula Nasal Cannula Oxygen Flow Rate (LPM) 2 2 2 12/06/23 08:29 12/06/23 09:00 Temperature Temperature Source Pulse Rate 82 85 Pulse Rate [Left] Respiratory Rate 17 21 Blood Pressure 140/58 L 154/70 H Blood Pressure [Right Arm] Blood Pressure Mean [Right Arm] 02 Sat by Pulse Oximetry 96 96 Oxygen Delivery Method Room Air Nasal Cannula Oxygen Flow Rate (LPM) 2 Lab Data Lab results reviewed: Yes I reviewed the patient's lab results. Labs: Lab Results 12/06/23 06:16: VBG pH 7.49 H, VBG pCO2 36.4, VBG pO2 127.1 H, VBG HCO3 27.4, V BG Total CO2 28.5 H, VBG O2 Saturation 98.8 H, VBG Base Excess 4.1 H, VBG Lactic Acid 1.3 12/06/23 06:41: WBC 9.6, RBC 5.18, Hgb 15.5, Hct 49.5 H, MCV 95.6, MCH 29.9, M CHC 31.2 L, RDW 13.7, Plt Count 252, MPV 7.7, Neut % (Auto) 69.3, Lymph % (Auto) 18.0, Elbert % (Auto) 7.1, Eos % (Auto) 5.2, Baso % (Auto) 0.4, Neut # (Auto) 6.7, Lymph # (Auto) 1.7, Elbert # (Auto) 0.7, Eos # (Auto) 0.5 H, Baso # (Auto) 0.0, PT 11.6, INR 1.04, Sodium 135 L, Potassium 4.6, Chloride 102, Carbon Dioxide 28, Anion Gap 9.6, BUN 43 H, Creatinine 1.20 H, Estimated Creat Clear 28, Estimated GFR 43 L, Est GFR ( Amer) 52 L, Glucose 129 H, Calcium 9.5, Total Bilirubin 1.2, AST 39 H, ALT 23, Alkaline Phosphatase 58, Troponin I 0.05 H, N T-Pro-B Natriuret Pep 731 H, Total Protein 6.5, Albumin 3.9, Globulin 2.6, Albumin/Globulin Ratio 1.5 12/06/23 09:30: Troponin I 0.04 H Response Orders (Tests/Meds): ED MEDICATIONS Discontinued Medications Generic Name Dose Route Start Last Admin Trade Name Freq PRN Reason Stop Dose Admin Albuterol/Ipratropium 9 ml 12/06/23 06:16 12/06/23 06:33 Ipratropium/Albuterol 3 Ml Neb IH 12/06/23 06:17 9 ml ONCE ONE Administration Morphine Sulfate 4 mg 12/06/23 08:34 12/06/23 08:36 Morphine 2mg/Ml Syringe IM 12/06/23 08:35 Not Given ONCE ONE ORDERS Category Date Time Status CXR 2 view (NOT portable) [XR chest 2V] Stat Exams 12/06/23 06:16 Completed BNP [NT Pro Brain Natriuretic Pep.] Stat Lab 12/06/23 06:41 Completed CBC w/Auto Diff [Complete Blood Count Auto Diff] Stat Lab 12/06/23 06:41 Completed CMP [Comprehensive Metabolic Panel] Stat Lab 12/06/23 06:41 Completed PT INR [Prothrombin Time INR] Stat Lab 12/06/23 06:41 Completed Trop I [Troponin I] Stat Lab 12/06/23 06:41 Completed Troponin I Q3H Lab 12/06/23 09:30 Completed Troponin I Q3H Lab 12/06/23 12:30 Ordered VBG [Venous Blood Gas] Stat RT 12/06/23 06:16 Completed MDM Narrative Medical Decision Narrative: In summary, this 83-year-old female presents to the emergency department today with difficulty breathing, wheezing. On initial evaluation patient is hemodynamically stable, afebrile, patient has mild wheezing in the bilateral lungs, prolonged expiratory phase, majority of her wheezing is coming from the upper airway, she is saturating 97% on her home 2 L nasal cannula, no peripheral edema, cardiac exam reassuring, remainder of exam benign. Differential diagnosis includes but is not limited to COPD exacerbation, hypercarbia, CHF exacerbation, pneumonia, electrolyte abnormality, viral syndrome, I considered the possibility of ACS though I have low suspicion for this. Patient is not tachycardic, hypotensive, hypoxic, and has no chest pain so I have low suspicion for PE though it was considered. Based on these concerns, I ordered cardiac workup, chest x-ray, BNP, VBG. ECG personally interpreted demonstrates atrial fibrillation, rate 87, left axis deviation, left bundle branch block, no STEMI. Patient received DuoNebs for treatment. Patient handed off to Dr. Lemus in stable condition while receiving DuoNeb. Labs and imaging pending This is Dr. Lemus I took over from Dr. Woods at 7 AM. First troponin came back mildly elevated. Looking back in her chart she has had mild troponin leaks in the past likely chronic secondary to chronic myocardial injuries. She had recent presentation of urinary tract infection and generalized weakness with a similar troponin elevation which was unchanged. She has followed up with cardiology since that time. I suspect that this is not an acute coronary syndrome or myocardial infarction. Likely mild myocardial injury secondary to COPD exacerbation itself. Chest x-ray was performed which I first interpreted which shows a right lower lobe and retrocardiac opacity consistent with mild pneumonia radiology read this is normal but we will treat this as pneumonia. On my reassessment clinically patient feeling much better she is satting 95% on 2 L which is her home oxygen saturation. Labs otherwise nonactionable. She lives at home by herself but feels that she can carry out her activities of daily living and also has a family member/friend who is very close who can check on her regularly. I did offer her admission for PT OT and further management and treatment of her COPD exacerbation myocardial injury but with shared decision making we opted to allow the patient to go home and follow-up closely and return with any significant worsening symptoms. She has been placed in ED observation status will wait for second troponin if there is no significant delta she will be stable for outpatient discharge. Reassessment 10:23 AM patient looks very well clinically serial troponin has returned with no significant delta. This is all consistent with a mild myocardial injury likely secondary to chronic strain from COPD and/or CHF. She is been advised to follow-up with pulmonology and cardiology. She has numerous antibiotic allergies and given the fact that I will be treating her for pneumonia she was prescribed azithromycin. She is aware that this is not optimal in her situation and that may not give adequate coverage of strep pneumo and that she may worsen. She has been advised to return with any significant worsening of her symptoms and was discharged in stable condition.
[2023-12-06] MEDS: IPRATROPIUM/ALBUTEROL 3 ML NEB 9 ML IH (06:33)
[2023-12-06 06:51] LABS: Lactate Venous 1.3 mmol/L (0.4-2.0); VBG Base Excess 4.1 mmol/L (-2.4-2.3); VBG HCO3 27.4 mmol/L (23-30); VBG Oxygen Saturation 98.8 % (50-70); VBG PCO2 36.4 mmol/L (35-51); VBG PH 7.49 mmol/L (7.31-7.41); VBG PO2 127.1 mmol/L (28-40); VBG Total CO2 28.5 mmol/L (23-27)
[2023-12-06 07:06] LABS: INR 1.04 (0.9-1.1); Prothrombin Time 11.6 seconds (10.1-12.5)
[2023-12-06 07:11] LABS: Basophils % 0.4 % (0.1-2.0); Eosinophils # 0.5 K/mm3 (0.0-0.4); Eosinophils % 5.2 % (0.1-12.0); Hematocrit 49.5 % (37.0-47.0); Hemoglobin 15.5 g/dL (12.2-16.2); Lymphocytes # 1.7 K/mm3 (0.7-4.5); Mean Corpuscular HGB Conc 31.2 g/dL (31.8-35.4); Mean Corpuscular Hemoglobin 29.9 pg (27.0-31.2); Mean Corpuscular Volume 95.6 fl (81-99); Mean Platelet Volume 7.7 fl (7.4-10.4); Monocytes # 0.7 K/mm3 (0.1-1.0); Monocytes % 7.1 % (1.7-9.3); Neutrophils # 6.7 K/mm3 (1.8-7.8); Neutrophils % 69.3 % (37.0-80.0); Platelet Count 252 K/mm3 (142-424); Red Blood Count 5.18 M/mm3 (4.20-5.40); Red Cell Distribution Width 13.7 % (11.5-17.5); White Blood Count 9.6 K/mm3 (4.8-10.8)
--- NOTE | 2023-12-06 07:13 | PC.NURSE ---
Rad in room for chest x-ray
[2023-12-06 08:08] LABS: Albumin Level 3.9 g/dl (3.5-5.0); Chloride 102 mmol/L (98-107); Potassium 4.6 mmoL/L (3.5-5.1); Sodium 135 mmol/L (136-145)
[2023-12-06 08:10] LABS: Blood Urea Nitrogen 43 mg/dl (7-17); Creatinine Clearance Estimated 28 mL/min (50-200); Estimated Glomerular Filt Rate 43 ml/min (>60); GFR (African American) 52 ML/MIN (>60)
[2023-12-06 08:11] LABS: Alanine Aminotransferase 23 U/L (12-78); Albumin/Globulin Ratio 1.5 (1.1-1.8); Alkaline Phosphatase 58 U/L (38-126); Anion Gap 9.6 mEq/L (5-15); Aspartate Amino Transferase 39 U/L (14-36); Bilirubin,Total 1.2 mg/dl (0.2-1.3); Calcium 9.5 mg/dl (8.4-10.2); Carbon Dioxide 28 mmol/L (22.0-30.0); Globulin 2.6 g/dL (1.3-3.2); Glucose 129 mg/dl (74-100); Total Protein,Serum 6.5 g/dl (6.3-8.2)
[2023-12-06 08:20] LABS: NT Pro Brain Natriuretic Pep. 731 pg/mL (0-450)
[2023-12-06 08:23] LABS: Troponin I 0.05 ng/ml (0.00-0.034)
--- NOTE | 2023-12-06 08:35 | PC.NURSE ---
Rounded on pt. No needs voiced at this time. Call light remains within reach.
--- NOTE | 2023-12-06 08:37 | PC.NURSE ---
Dr. Lemus at BS to update pt on results and POC
--- NOTE | 2023-12-06 09:24 | PC.NURSE ---
Lab at bedside to collect 2nd troponin
[2023-12-06 10:05] LABS: Troponin I 0.04 ng/ml (0.00-0.034)
== END 2023-12-06 10:41 | disposition home or self-care (01) ==
PROVIDERS: Emergency Medicine; Emergency Provider Student in an Organized Health Care Education/Training Program; PCP Nurse Practitioner Family
DX: J18.9 Pneumonia, unspecified organism (principal); J44.1 Chronic obstructive pulmonary disease with (acute) exacerbation; I48.0 Paroxysmal atrial fibrillation; I44.7 Left bundle-branch block, unspecified; R06.02 Shortness of breath; R05.9 Cough, unspecified
CPT/HCPCS: 71046; 80053; 82803; 83880; 84484; 85025; 85610; 93005; 99284; J7620

== ENCOUNTER 2023-12-09 12:42 | Observation (INO) | payer MEDICARE, SELFPAY ==
[2023-12-09] VITALS (16 sets, daily range): BP systolic 117–169; BP diastolic 54–129; PULSE 60–94; RESP 18–22; TEMP 36.4–37.1; O2SAT 93–100; BMI 42.5; BMI 43.0
--- NOTE | 2023-12-09 12:52 | ECG_ITS ---
APPROVED REPORT Exam: Resting ECG HR:83 bpm ECG Measurements Heart Rate 83 AXES CA 129 P -46 QRSd 152 QRS -13 QT 369 T 132 QTc 409 Conclusion SINUS RHYTHM LEFT BUNDLE BRANCH BLOCK [120+ ms QRS DURATION, 80+ ms Q/S IN V1/V2, 85+ ms R IN I/aVL/V5/V6] ABNORMAL ECG Electronically signed by : STEPHANI PITT, 12/10/2023 23:21:56
--- NOTE | 2023-12-09 12:52 | HMH.EDGENADL ---
Discharge Plan Disposition Patient Disposition: Admitted Clinical Impressions Clinical Impression: Acute exacerbation of chronic obstructive pulmonary disease, Failure of outpatient treatment, Unable to care for self Discharge ED Provider: Tayo Hairston General Adult HPI <Tayo Hairston MD - Last Filed: 12/09/23 18:34> General Chief complaint: Upper Respiratory Infection Stated complaint: SOA Time Seen by Provider: 12/09/23 12:52 History of Present Illness HPI narrative: The patient presents with a chief complaint of wheezing and coughing that started suddenly a few days ago. The patient reports an initial improvement in symptoms after being seen by Dr. Lemus on Wednesday, who diagnosed mild pneumonia and prescribed breathing treatments and antibiotics. However, the patient's condition worsened again on Wednesday and . The patient denies any recent fevers, chills, or known exposure to sick individuals. The patient has a history of COPD and requires oxygen therapy at 2 liters continuously. The patient also reports being highly allergic to pollen, which may have contributed to the exacerbation of symptoms on Wednesday. The patient confirms taking prescribed steroids and using an inhaler but has not had a breathing treatment today. The patient experiences some pain and is coughing up a small amount of sputum. Despite the symptoms, the patient has been able to perform daily activities. The patient is unsure about any pre-existing heart conditions but mentions that Dr. Lemus had previously discussed elevated heart enzymes. The patient uses a nebulizer machine at home with DuoNeb (ipratropium and albuterol) and a CPAP machine for sleep. Please note that above description of symptoms, in this electronic medical record under categorization of recalled from ER triage doctor by RN are reflective of an initial nursing assessment, however, is not reflective of my full history and physical exam that was personally taken and clarified. Consequentially, this preceding description of symptoms, which may include the patient's categorized chief complaint in the EMR, do not reflect my personal clinical impression, and the ultimate description of history of present illness and patient stated complaints should be deferred to this section of the note. Unless stated otherwise or congruent with this section of the note, additional signs, symptoms, or incongruence should be interpreted as inaccurate with my clinical impression. Related Data Home Medications ?Medication ?Instructions ?Recorded ?Confirmed allopurinol 100 mg tablet 100 mg PO DAILY gout 05/15/20 03/05/23 benazepril 40 mg tablet 40 mg PO DAILY High blood pressure 05/15/20 03/05/23 atorvastatin 40 mg tablet 40 mg PO HS Cholesterol 06/11/20 03/05/23 cholecalciferol (vitamin D3) 50 1 tab PO DAILY Supplement 06/11/20 03/05/23 mcg (2,000 unit) chewable tablet insulin aspart U-100 100 unit/mL 10 units SQ AC Diabetes 06/15/21 03/05/23 subcutaneous solution potassium chloride 20 mEq 20 meq PO BID Supplement 06/15/21 03/05/23 tablet,extended release(part/cryst) torsemide 100 mg tablet 50 mg PO DAILY DIURETIC 09/20/21 03/05/23 insulin detemir U-100 100 unit/mL 10 units SQ HS Diabetes 09/21/21 03/05/23 (3 mL) subcutaneous pen insulin lispro 100 unit/mL 0 unit SQ ACHS Diabetes 03/30/22 03/05/23 subcutaneous solution ipratropium 0.5 mg-albuterol 3 mg 3 ml inhalation Q6H Breathing 12/10/22 03/05/23 (2.5 mg base)/3 mL nebulization Problems soln Previous Rx's ?Medication ?Instructions ?Recorded ondansetron HCl (PF) 4 mg/2 mL 4 mg (2 mL) IV Q8HP PRN Nausea 09/22/21 injection solution nitrofurantoin 100 mg PO BID 5 days #10 caps 03/05/23 monohydrate/macrocrystals 100 mg capsule (Macrobid) albuterol sulfate 90 mcg/actuation 4 inh inhalation Q4H PRN shortness 12/06/23 aerosol inhaler of breath or wheezing #8.5 grams azithromycin 250 mg tablet See Rx Instructions PO .COMPLEX #6 12/06/23 tabs benzonatate 100 mg capsule 100 mg PO TID PRN cough 5 days #20 12/06/23 caps prednisone 50 mg tablet 50 mg PO DAILY 5 days #5 tabs 12/06/23 Allergies Allergy/AdvReac Type Severity Reaction Status Date / Time codeine [CODEINE] Allergy Mild Verified 03/30/22 11:17 iodine [IODINE] Allergy Mild Verified 03/30/22 11:17 latex [LATEX] Allergy Mild Verified 03/30/22 11:17 oxycodone [OXYCODONE] Allergy Mild Verified 03/30/22 11:17 Sulfa (Sulfonamide Allergy Mild Verified 03/30/22 11:17 Antibiotics) [SULFA (SULFONAMIDE ANTIBIOTICS)] Cephalosporins Allergy Verified 12/10/22 12:21 doxycycline Allergy Verified 12/10/22 12:21 exenatide [From Byetta] Allergy Verified 12/10/22 12:21 glyburide Allergy Verified 12/10/22 12:21 hyoscyamine [From Levbid] Allergy Verified 12/10/22 12:21 levofloxacin [From Levaquin] Allergy Verified 12/10/22 12:21 PCN Allergy Mild Uncoded 05/15/20 10:05 PFSH <Tayo Hairston MD - Last Filed: 12/09/23 18:34> [facility] Disclaimer: The information contained in this section may have been updated after the patient was seen, as this information can be updated by other users. Medical History (Updated 12/09/23 @ 17:38 by Obed Lemus MD) MARCELA (obstructive sleep apnea) Diabetes Brain tumor Diastolic dysfunction CAD (coronary artery disease) HTN (hypertension) COPD (chronic obstructive pulmonary disease) Surgical History H/O cardiac catheterization H/O: hysterectomy History of appendectomy Hx of tonsillectomy History of cholecystectomy H/O oophorectomy Family History (Updated 12/10/22 @ 12:06 by Tricia Rosa, RN) Other Hypertension Stroke Social History (Updated 12/10/22 @ 12:11 by Tricia Rosa RN) Smoking Status: Never smoker second hand exposure: No alcohol intake: never substance use type: denies use current occupational status: retired Travel in the last 8 weeks: None household members: none housing: house caffeine: No <Tayo Hairston MD - Last Filed: 12/09/23 18:34> ROS Obtained: Yes other As per HPI Physical Exam <Tayo Hairston MD - Last Filed: 12/09/23 18:34> General General appearance: alert and in no apparent distress Head Head exam: atraumatic and normocephalic Eye Eye exam: Present normal appearance Neck Neck exam: Present normal inspection Chest Chest inspection: Present normal inspection and symmetric chest wall rise Respiratory Respiratory exam: Present wheezes, accessory muscle use and prolonged expiratory phase Cardiovascular Cardiovascular exam: Present regular rate and normal rhythm Abdominal Exam Abdominal exam: Present soft Neurological Exam Neurological exam: Present alert and oriented X3 Psychiatric Psychiatric exam: Present normal affect and normal mood Skin Skin exam: Present warm and dry Medical Decision Making <Tayo Hairston MD - Last Filed: 12/09/23 18:34> Medical Records Medical records reviewed: Yes I reviewed the patient's medical records. One[place] Inquiry Pt receiving controlled substance: No Vital Signs: 12/09/23 12:55 12/09/23 13:00 12/09/23 13:18 Temperature 97.7 F Temperature Source Oral Pulse Rate 82 65 Pulse Rate [Left] 83 Respiratory Rate 20 Blood Pressure 147/71 H 117/96 H Blood Pressure [Right Arm] 147/71 H Blood Pressure Mean [Right Arm] 96 Blood Pressure Source [Right Arm] Automatic Cuff Blood Pressure Position [Right Arm] Sitting 02 Sat by Pulse Oximetry 96 93 L 94 L Oxygen Delivery Method Room Air Oxygen Flow Rate (LPM) 12/09/23 13:30 12/09/23 13:42 12/09/23 13:58 Temperature Temperature Source Pulse Rate 62 60 60 Pulse Rate [Left] Respiratory Rate Blood Pressure 129/54 L 128/62 Blood Pressure [Right Arm] Blood Pressure Mean [Right Arm] Blood Pressure Source [Right Arm] Blood Pressure Position [Right Arm] 02 Sat by Pulse Oximetry 98 97 96 Oxygen Delivery Method Oxygen Flow Rate (LPM) 12/09/23 14:31 12/09/23 15:01 12/09/23 15:31 Temperature Temperature Source Pulse Rate 63 87 88 Pulse Rate [Left] Respiratory Rate Blood Pressure 130/84 156/70 H 148/129 H Blood Pressure [Right Arm] Blood Pressure Mean [Right Arm] Blood Pressure Source [Right Arm] Blood Pressure Position [Right Arm] 02 Sat by Pulse Oximetry 100 94 L 93 L Oxygen Delivery Method Nasal Cannula Oxygen Flow Rate (LPM) 2 12/09/23 16:01 12/09/23 16:31 Temperature Temperature Source Pulse Rate 86 89 Pulse Rate [Left] Respiratory Rate Blood Pressure 159/61 H 145/58 H Blood Pressure [Right Arm] Blood Pressure Mean [Right Arm] Blood Pressure Source [Right Arm] Blood Pressure Position [Right Arm] 02 Sat by Pulse Oximetry 93 L 93 L Oxygen Delivery Method Nasal Cannula Oxygen Flow Rate (LPM) 2 Lab Data Lab Results 12/09/23 13:10: WBC 9.6, RBC 5.18, Hgb 15.8, Hct 49.9 H, MCV 96.3, MCH 30.5, MCHC 31.7 L, RDW 13.7, Plt Count 269, MPV 7.8, Neut % (Auto) 85.3 H, Lymph % (Auto) 9.5 L, [place] % (Auto) 3.9, Eos % (Auto) 0.8, Baso % (Auto) 0.4, Neut # (Auto) 8.2 H, Lymph # (Auto) 0.9, [place] # (Auto) 0.4, Eos # (Auto) 0.1, Baso # (Auto) 0.0, Total Counted 100, Neutrophils % (Manual) 90 H, Lymphocytes % (Manual) 9 L, Monocytes % (Manual) 1 L, Platelet Estimate Normal, RBC Morphology Normal, Sodium 136, Potassium 4.4, Chloride 100, Carbon Dioxide 29, Anion Gap 11.4, BUN 54 H, Creatinine 1.30 H, Estimated Creat Clear 26, Estimated GFR 39 L, Est GFR ( Amer) 47 L, Glucose 249 H, Calcium 9.7, Magnesium 2.1, Total Bilirubin 0.9, AST 43 H, ALT 38, Alkaline Phosphatase 64, Troponin I 0.05 H, NT-Pro-B Natriuret Pep 1550 H, Total Protein 7.2, Albumin 4.4, Globulin 2.8, Albumin/Globulin Ratio 1.6, Procalcitonin 0.095 12/09/23 13:17: VBG pH 7.42 H, VBG pCO2 42.7, VBG pO2 130.0 H, VBG HCO3 27.2, VBG Total CO2 28.5 H, VBG O2 Saturation 98.8 H, VBG Base Excess 2.8 H, VBG Lactic Acid 2.7 H, SARS-CoV-2 (PCR) Not detected, Influenza A Untype (PCR) Not detected, Influenza Type B (PCR) Not detected 12/09/23 16:30: Troponin I 0.05 H 12/09/23 13:10 12/09/23 13:10 Orders (Tests/Meds): ED MEDICATIONS Generic Name Dose Route Start Last Admin Trade Name Freq PRN Reason Stop Dose Admin Albuterol Sulfate 2.5 mg 12/09/23 18:15 Albuterol 0.083% 2.5 Mg/3 Ml Neb 01/08/24 18:14 Q1HP PRN Shortness Of Breath Allopurinol 100 mg 12/10/23 09:00 Allopurinol 100mg Tablet PO 01/09/24 08:59 DAILY [facility] Atorvastatin Calcium 40 mg 12/09/23 21:00 Atorvastatin 40mg Tablet PO 01/08/24 20:59 HS [facility] Benzonatate 100 mg 12/09/23 18:24 Benzonatate 100mg Capsule PO 01/08/24 18:23 TID PRN cough Azithromycin 500 mg/ Sodium 250 mls @ 250 mls/hr 12/09/23 18:30 Chloride IV 12/14/23 18:29 Q24H [facility] Aztreonam 1 gm/ Sodium 50 mls @ 100 mls/hr 12/09/23 18:30 Chloride IV 12/16/23 18:29 Q8H [facility] Insulin Glargine 10 unit 12/09/23 21:00 Insulin Glargine 100 Units/Ml 3ml Flexpen SQ 01/08/24 20:59 HS [facility] Insulin Human Lispro 0 unit 12/09/23 18:30 Humalog 100 Units/Ml 10ml Vial (Ssi) SQ 01/08/24 18:29 Q6H [facility] Protocol Lisinopril 40 mg 12/10/23 09:00 Lisinopril 20mg Tablet PO 01/09/24 08:59 DAILY [facility] Methylprednisolone Sodium Succinate 40 mg 12/09/23 18:15 Methylprednisolone Sod Succ 125mg Vial IV 12/11/23 00:16 Q6H [facility] Non-Formulary Medication 1 tab 12/10/23 09:00 Cholecalciferol (Vitamin D3) PO 01/09/24 08:59 DAILY [facility] Sodium Chloride 3 ml 12/09/23 18:15 Sodium Chloride 3% 15ml Neb 01/08/24 18:14 ONCE PRN INDUCE SPUTUM COLLECTION Discontinued Medications Generic Name Dose Route Start Last Admin Trade Name Freq PRN Reason Stop Dose Admin Albuterol/Ipratropium 3 ml 12/09/23 13:59 12/09/23 14:19 Ipratropium/Albuterol 3 Ml Neb 12/09/23 14:00 3 ml ONCE ONE Administration Methylprednisolone Sodium Succinate 80 mg 12/09/23 13:59 12/09/23 14:20 Methylprednisolone Sod Succ 40mg Vial IV 12/09/23 14:00 80 mg ONCE ONE Administration ORDERS Category Date Time Status XR chest portable Stat Exams 12/09/23 13:59 Completed BNP [NT Pro Brain Natriuretic Pep.] Stat Lab 12/09/23 13:10 Completed CBC w/Auto Diff [Complete Blood Count Auto Diff] Stat Lab 12/09/23 13:10 Completed CMP [Comprehensive Metabolic Panel] Stat Lab 12/09/23 13:10 Completed MAG [Magnesium] Stat Lab 12/09/23 13:10 Completed Procalcitonin Stat Lab 12/09/23 13:10 Completed Rapid PCR Covid and Flu A/B Stat Lab 12/09/23 13:17 Completed Troponin I Q3H Lab 12/09/23 13:10 Completed Troponin I Q3H Lab 12/09/23 16:30 Completed VBG [Venous Blood Gas] Stat RT 12/09/23 13:17 Completed Medical Decision Narrative: Patient with history and exam per above presenting for evaluation of shortness of breath Diagnoses considered include COPD exacerbation, community-acquired pneumonia, ACS, there is insufficient evidence to warrant further workup for entities such as dissection, pulmonary embolism ED workup and treatment included: ED MEDICATIONS Generic Name Dose Route Start Last Admin Trade Name Freq PRN Reason Stop Dose Admin Albuterol Sulfate 2.5 mg 12/09/23 18:15 Albuterol 0.083% 2.5 Mg/3 Ml Neb IH 01/08/24 18:14 Q1HP PRN Shortness Of Breath Allopurinol 100 mg 12/10/23 09:00 Allopurinol 100mg Tablet PO 01/09/24 08:59 DAILY [facility] Atorvastatin Calcium 40 mg 12/09/23 21:00 Atorvastatin 40mg Tablet PO 01/08/24 20:59 HS [facility] Benzonatate 100 mg 12/09/23 18:24 Benzonatate 100mg Capsule PO 01/08/24 18:23 TID PRN cough Azithromycin 500 mg/ Sodium 250 mls @ 250 mls/hr 12/09/23 18:30 Chloride IV 12/14/23 18:29 Q24H [facility] Aztreonam 1 gm/ Sodium 50 mls @ 100 mls/hr 12/09/23 18:30 Chloride IV 12/16/23 18:29 Q8H [facility] Insulin Glargine 10 unit 12/09/23 21:00 Insulin Glargine 100 Units/Ml 3ml Flexpen SQ 01/08/24 20:59 HS [facility] Insulin Human Lispro 0 unit 12/09/23 18:30 Humalog 100 Units/Ml 10ml Vial (Ssi) SQ 01/08/24 18:29 Q6H [facility] Protocol Lisinopril 40 mg 12/10/23 09:00 Lisinopril 20mg Tablet PO 01/09/24 08:59 DAILY [facility] Methylprednisolone Sodium Succinate 40 mg 12/09/23 18:15 Methylprednisolone Sod Succ 125mg Vial IV 12/11/23 00:16 Q6H [facility] Non-Formulary Medication 1 tab 12/10/23 09:00 Cholecalciferol (Vitamin D3) PO 01/09/24 08:59 DAILY [facility] Sodium Chloride 3 ml 12/09/23 18:15 Sodium Chloride 3% 15ml Neb 01/08/24 18:14 ONCE PRN INDUCE SPUTUM COLLECTION Discontinued Medications Generic Name Dose Route Start Last Admin Trade Name Freq PRN Reason Stop Dose Admin Albuterol/Ipratropium 3 ml 12/09/23 13:59 12/09/23 14:19 Ipratropium/Albuterol 3 Ml Neb 12/09/23 14:00 3 ml ONCE ONE Administration Methylprednisolone Sodium Succinate 80 mg 12/09/23 13:59 12/09/23 14:20 Methylprednisolone Sod Succ 40mg Vial IV 12/09/23 14:00 80 mg ONCE ONE Administration ORDERS Category Date Time Status XR chest portable Stat Exams 12/09/23 13:59 Completed BNP [NT Pro Brain Natriuretic Pep.] Stat Lab 12/09/23 13:10 Completed CBC w/Auto Diff [Complete Blood Count Auto Diff] Stat Lab 12/09/23 13:10 Completed CMP [Comprehensive Metabolic Panel] Stat Lab 12/09/23 13:10 Completed MAG [Magnesium] Stat Lab 12/09/23 13:10 Completed Procalcitonin Stat Lab 12/09/23 13:10 Completed Rapid PCR Covid and Flu A/B Stat Lab 12/09/23 13:17 Completed Troponin I Q3H Lab 12/09/23 13:10 Completed Troponin I Q3H Lab 12/09/23 16:30 Completed VBG [Venous Blood Gas] Stat RT 12/09/23 13:17 Completed Labs were independently interpreted by me, significant for BNP 1550, troponin 0.05 consistent with baseline, creatinine 1.30, no acidosis on VBG, no leukocytosis. Imaging pending at this time. Reassessment this is Dr. Lemus I took over from Dr. Bajwa who initiated the workup and history and physical on this patient. I actually saw this patient on the diagnosed her with COPD exacerbation attempted to treat her outpatient but she states she got significantly worse with increasing shortness of breath and coughing and difficulty take care of herself at home. She would prefer to come in the hospital until she has improved may need PT OT and home health and her friend who is with her states that she has fallen in the past and that she is at risk for that at the moment. Patient is on her 2 L nasal cannula she is little bit more tachypneic than I saw her a few days ago. She has had nebs and steroids provided by Dr. Bajwa. No definitive consolidation on chest x-ray she is not septic. I spoke with Dr. Vera who agreed to admit the patient for further evaluation management and treatment of her COPD exacerbation likely to get PT OT and possible placement. <Obed Lemus MD - Last Filed: 12/09/23 17:40> Vital Signs: 12/09/23 12:55 12/09/23 13:00 12/09/23 13:18 Temperature 97.7 F Temperature Source Oral Pulse Rate 82 65 Pulse Rate [Left] 83 Respiratory Rate 20 Blood Pressure 147/71 H 117/96 H Blood Pressure [Right Arm] 147/71 H Blood Pressure Mean [Right Arm] 96 Blood Pressure Source [Right Arm] Automatic Cuff Blood Pressure Position [Right Arm] Sitting 02 Sat by Pulse Oximetry 96 93 L 94 L Oxygen Delivery Method Room Air Oxygen Flow Rate (LPM) 12/09/23 13:30 12/09/23 13:42 12/09/23 13:58 Temperature Temperature Source Pulse Rate 62 60 60 Pulse Rate [Left] Respiratory Rate Blood Pressure 129/54 L 128/62 Blood Pressure [Right Arm] Blood Pressure Mean [Right Arm] Blood Pressure Source [Right Arm] Blood Pressure Position [Right Arm] 02 Sat by Pulse Oximetry 98 97 96 Oxygen Delivery Method Oxygen Flow Rate (LPM) 12/09/23 14:31 12/09/23 15:01 12/09/23 15:31 Temperature Temperature Source Pulse Rate 63 87 88 Pulse Rate [Left] Respiratory Rate Blood Pressure 130/84 156/70 H 148/129 H Blood Pressure [Right Arm] Blood Pressure Mean [Right Arm] Blood Pressure Source [Right Arm] Blood Pressure Position [Right Arm] 02 Sat by Pulse Oximetry 100 94 L 93 L Oxygen Delivery Method Nasal Cannula Oxygen Flow Rate (LPM) 2 12/09/23 16:01 12/09/23 16:31 Temperature Temperature Source Pulse Rate 86 89 Pulse Rate [Left] Respiratory Rate Blood Pressure 159/61 H 145/58 H Blood Pressure [Right Arm] Blood Pressure Mean [Right Arm] Blood Pressure Source [Right Arm] Blood Pressure Position [Right Arm] 02 Sat by Pulse Oximetry 93 L 93 L Oxygen Delivery Method Nasal Cannula Oxygen Flow Rate (LPM) 2 Lab Data Lab results reviewed: Yes I reviewed the patient's lab results. Lab Results 12/09/23 13:10: WBC 9.6, RBC 5.18, Hgb 15.8, Hct 49.9 H, MCV 96.3, MCH 30.5, MCHC 31.7 L, RDW 13.7, Plt Count 269, MPV 7.8, Neut % (Auto) 85.3 H, Lymph % (Auto) 9.5 L, [place] % (Auto) 3.9, Eos % (Auto) 0.8, Baso % (Auto) 0.4, Neut # (Auto) 8.2 H, Lymph # (Auto) 0.9, [place] # (Auto) 0.4, Eos # (Auto) 0.1, Baso # (Auto) 0.0, Total Counted 100, Neutrophils % (Manual) 90 H, Lymphocytes % (Manual) 9 L, Monocytes % (Manual) 1 L, Platelet Estimate Normal, RBC Morphology Normal, Sodium 136, Potassium 4.4, Chloride 100, Carbon Dioxide 29, Anion Gap 11.4, BUN 54 H, Creatinine 1.30 H, Estimated Creat Clear 26, Estimated GFR 39 L, Est GFR ( Amer) 47 L, Glucose 249 H, Calcium 9.7, Magnesium 2.1, Total Bilirubin 0.9, AST 43 H, ALT 38, Alkaline Phosphatase 64, Troponin I 0.05 H, NT-Pro-B Natriuret Pep 1550 H, Total Protein 7.2, Albumin 4.4, Globulin 2.8, Albumin/Globulin Ratio 1.6, Procalcitonin 0.095 12/09/23 13:17: VBG pH 7.42 H, VBG pCO2 42.7, VBG pO2 130.0 H, VBG HCO3 27.2, VBG Total CO2 28.5 H, VBG O2 Saturation 98.8 H, VBG Base Excess 2.8 H, VBG Lactic Acid 2.7 H, SARS-CoV-2 (PCR) Not detected, Influenza A Untype (PCR) Not detected, Influenza Type B (PCR) Not detected 12/09/23 16:30: Troponin I 0.05 H Orders (Tests/Meds): ED MEDICATIONS Generic Name Dose Route Start Last Admin Trade Name Freq PRN Reason Stop Dose Admin Albuterol Sulfate 2.5 mg 12/09/23 18:15 Albuterol 0.083% 2.5 Mg/3 Ml Neb IH 01/08/24 18:14 Q1HP PRN Shortness Of Breath Allopurinol 100 mg 12/10/23 09:00 Allopurinol 100mg Tablet PO 01/09/24 08:59 DAILY [facility] Atorvastatin Calcium 40 mg 12/09/23 21:00 Atorvastatin 40mg Tablet PO 01/08/24 20:59 HS [facility] Benzonatate 100 mg 12/09/23 18:24 Benzonatate 100mg Capsule PO 01/08/24 18:23 TID PRN cough Azithromycin 500 mg/ Sodium 250 mls @ 250 mls/hr 12/09/23 18:30 Chloride IV 12/14/23 18:29 Q24H [facility] Aztreonam 1 gm/ Sodium 50 mls @ 100 mls/hr 12/09/23 18:30 Chloride IV 12/16/23 18:29 Q8H [facility] Insulin Glargine 10 unit 12/09/23 21:00 Insulin Glargine 100 Units/Ml 3ml Flexpen SQ 01/08/24 20:59 HS [facility] Insulin Human Lispro 0 unit 12/09/23 18:30 Humalog 100 Units/Ml 10ml Vial (Ssi) SQ 01/08/24 18:29 Q6H [facility] Protocol Lisinopril 40 mg 12/10/23 09:00 Lisinopril 20mg Tablet PO 01/09/24 08:59 DAILY [facility] Methylprednisolone Sodium Succinate 40 mg 12/09/23 18:15 Methylprednisolone Sod Succ 125mg Vial IV 12/11/23 00:16 Q6H [facility] Non-Formulary Medication 1 tab 12/10/23 09:00 Cholecalciferol (Vitamin D3) PO 01/09/24 08:59 DAILY [facility] Sodium Chloride 3 ml 12/09/23 18:15 Sodium Chloride 3% 15ml Neb 01/08/24 18:14 ONCE PRN INDUCE SPUTUM COLLECTION Discontinued Medications Generic Name Dose Route Start Last Admin Trade Name Freq PRN Reason Stop Dose Admin Albuterol/Ipratropium 3 ml 12/09/23 13:59 12/09/23 14:19 Ipratropium/Albuterol 3 Ml Neb 12/09/23 14:00 3 ml ONCE ONE Administration Methylprednisolone Sodium Succinate 80 mg 12/09/23 13:59 12/09/23 14:20 Methylprednisolone Sod Succ 40mg Vial IV 12/09/23 14:00 80 mg ONCE ONE Administration ORDERS Category Date Time Status XR chest portable Stat Exams 12/09/23 13:59 Completed BNP [NT Pro Brain Natriuretic Pep.] Stat Lab 12/09/23 13:10 Completed CBC w/Auto Diff [Complete Blood Count Auto Diff] Stat Lab 12/09/23 13:10 Completed CMP [Comprehensive Metabolic Panel] Stat Lab 12/09/23 13:10 Completed MAG [Magnesium] Stat Lab 12/09/23 13:10 Completed Procalcitonin Stat Lab 12/09/23 13:10 Completed Rapid PCR Covid and Flu A/B Stat Lab 12/09/23 13:17 Completed Troponin I Q3H Lab 12/09/23 13:10 Completed Troponin I Q3H Lab 12/09/23 16:30 Completed VBG [Venous Blood Gas] Stat RT 12/09/23 13:17 Completed Medical Decision Narrative: Patient with history and exam per above presenting for evaluation of Diagnoses considered include ED workup and treatment included: Labs were independently interpreted by me, significant for Imaging was independently visualized and interpreted by me, significant for Please refer to radiology report for full details. My clinical impression at this time is most consistent with I discussed my clinical impression with patient and answered all questions. At this time, the evidence for any other entities in the differential is insufficient to warrant any further testing or ED observation. This was explained to the patient. The patient was advised that persistent or worsening symptoms require further evaluation. Reassessment this is Dr. Lemus I took over from Dr. Bajwa who initiated the workup and history and physical on this patient. I actually saw this patient on the diagnosed her with COPD exacerbation attempted to treat her outpatient but she states she got significantly worse with increasing shortness of breath and coughing and difficulty take care of herself at home. She would prefer to come in the hospital until she has improved may need PT OT and home health and her friend who is with her states that she has fallen in the past and that she is at risk for that at the moment. Patient is on her 2 L nasal cannula she is little bit more tachypneic than I saw her a few days ago. She has had nebs and steroids provided by Dr. Bajwa. No definitive consolidation on chest x-ray she is not septic. I spoke with Dr. Vera who agreed to admit the patient for further evaluation management and treatment of her COPD exacerbation likely to get PT OT and possible placement. Critical Care <Tayo Hairston MD - Last Filed: 12/09/23 18:34> Critical Care Time Critical Care Time: No <Obed Lemus MD - Last Filed: 12/09/23 17:40> Critical Care Time Critical Care Time: Yes Attestation: On 12/09/23, the high probability of a clinically significant, sudden or life threatening deterioration of the following system(s) required my full and direct attention, intervention and personal management. The time I documented below is in addition to time spent performing reported procedures but includes the following listed in this critical care notation. Total Time Total Critical Care Time: 35
[2023-12-09 13:23] LABS: VBG Base Excess 2.8 mmol/L (-2.4-2.3); VBG HCO3 27.2 mmol/L (23-30); VBG Oxygen Saturation 98.8 % (50-70); VBG PCO2 42.7 mmol/L (35-51); VBG PH 7.42 mmol/L (7.31-7.41); VBG Total CO2 28.5 mmol/L (23-27)
[2023-12-09 13:25] LABS: Lactate Venous 2.7 mmol/L (0.4-2.0)
[2023-12-09 13:29] LABS: Basophils % 0.4 % (0.1-2.0); Eosinophils # 0.1 K/mm3 (0.0-0.4); Eosinophils % 0.8 % (0.1-12.0); Hematocrit 49.9 % (37.0-47.0); Hemoglobin 15.8 g/dL (12.2-16.2); Lymphocytes # 0.9 K/mm3 (0.7-4.5); Lymphocytes % 9.5 % (10-50); Mean Corpuscular HGB Conc 31.7 g/dL (31.8-35.4); Mean Corpuscular Hemoglobin 30.5 pg (27.0-31.2); Mean Corpuscular Volume 96.3 fl (81-99); Mean Platelet Volume 7.8 fl (7.4-10.4); Monocytes # 0.4 K/mm3 (0.1-1.0); Monocytes % 3.9 % (1.7-9.3); Neutrophils # 8.2 K/mm3 (1.8-7.8); Neutrophils % 85.3 % (37.0-80.0); Platelet Count 269 K/mm3 (142-424); Red Blood Count 5.18 M/mm3 (4.20-5.40); Red Cell Distribution Width 13.7 % (11.5-17.5); White Blood Count 9.6 K/mm3 (4.8-10.8)
[2023-12-09 13:32] LABS: Albumin Level 4.4 g/dl (3.5-5.0); Chloride 100 mmol/L (98-107); MANUAL DIFFERENTIAL MANUAL DIFFERENTIAL (MANUAL DIFF); Potassium 4.4 mmoL/L (3.5-5.1); Sodium 136 mmol/L (136-145)
[2023-12-09 13:34] LABS: Blood Urea Nitrogen 54 mg/dl (7-17); Creatinine Clearance Estimated 26 mL/min (50-200); Estimated Glomerular Filt Rate 39 ml/min (>60); GFR (African American) 47 ML/MIN (>60)
[2023-12-09 13:35] LABS: Alanine Aminotransferase 38 U/L (12-78); Albumin/Globulin Ratio 1.6 (1.1-1.8); Alkaline Phosphatase 64 U/L (38-126); Anion Gap 11.4 mEq/L (5-15); Aspartate Amino Transferase 43 U/L (14-36); Bilirubin,Total 0.9 mg/dl (0.2-1.3); Calcium 9.7 mg/dl (8.4-10.2); Carbon Dioxide 29 mmol/L (22.0-30.0); Globulin 2.8 g/dL (1.3-3.2); Glucose 249 mg/dl (74-100); Magnesium 2.1 mg/dl (1.6-2.3); Total Protein,Serum 7.2 g/dl (6.3-8.2)
[2023-12-09 13:45] LABS: NT Pro Brain Natriuretic Pep. 1550 pg/mL (0-450)
[2023-12-09 13:47] LABS: Troponin I 0.05 ng/ml (0.00-0.034)
[2023-12-09 13:59] LABS: Coronavirus 19, PCR Not Detected (NotDetected); Influenza A, PCR Not Detected (NotDetected); Influenza B, PCR Not Detected (NotDetected)
--- NOTE | 2023-12-09 13:59 | XR_ITS ---
FINAL REPORT CLINICAL HISTORY: soa, cough, hx copd COMPARISON: 12/06/2023 FINDINGS: SINGLE-VIEW CHEST The heart size is normal. The mediastinum is normal. There are calcified left hilar lymph nodes. The lungs are clear. There is no pneumothorax. IMPRESSION: No acute cardiopulmonary process. Reviewed, Interpreted and Dictated by Antwon Yun MD Transcribed by Mayte Galeano Authenticated and [facility]
[2023-12-09 14:01] LABS: Lymphocytes % 9 % (10-50); Monocytes % 1 % (2-9); Neutrophils % 90 % (42-76); Platelet Estimate Normal; RBC Morphology Normal; Total Cells Counted 100
[2023-12-09] MEDS: IPRATROPIUM/ALBUTEROL 3 ML NEB IH (14:19)
[2023-12-09] MEDS: METHYLPREDNISOLONE SOD SUCC 40MG VIAL 80 MG IV (14:20)
[2023-12-09 14:53] LABS: Procalcitonin 0.095 ng/mL (0.0-2.0)
[2023-12-09 17:04] LABS: Troponin I 0.05 ng/ml (0.00-0.034)
[2023-12-09 17:24] LABS: Reflex Lactic Add Lactic Reflex
--- NOTE | 2023-12-09 17:32 | PC.NURSE ---
Dr. Sheikh states we do not need the repeat lactic.
--- NOTE | 2023-12-09 17:38 | ED_ITS ---
Discharge Plan Disposition Patient Disposition: Admitted Prescriptions Prescriptions: No Action allopurinol 100 mg tablet 100 mg PO DAILY Patient Comments: Take 1 tablet by mouth daily benazepril 40 mg tablet 40 mg PO DAILY atorvastatin 40 MG tablet 40 mg PO HS cholecalciferol (vitamin D3) 50 MCG tablet,chewable 1 tab PO DAILY torsemide 100 MG tablet 50 mg PO DAILY insulin detemir U-100 100 UNIT/ML insulin pen 10 units SQ HS Patient Comments: INJECT 10 UNITS SUBCUTANEOUSLY AT BEDTIME ondansetron HCl (PF) 4 MG/2 ML solution 4 mg IV Q8HP PRN (Reason: Nausea) 0RF insulin lispro 100 UNIT/ML solution 0 unit SQ ACHS nitrofurantoin monohyd/m-cryst [Macrobid] 100 mg capsule 100 mg PO BID 5 Days Qty: 10 0RF Rx Instructions: must administer with a meal/food insulin aspart U-100 100 UNIT/ML solution 10 units SQ AC Patient Comments: INJECT 10 UNITS SUBCUTANEOUSLY 5 TO 10 MINUTES BEFORE EACH MEAL ( THREE MEALS PER DAY) potassium chloride 20 MEQ tablet,ER particles/crystals 20 meq PO BID ipratropium-albuterol 0.5 mg-3 mg(2.5 mg base)/3 mL solution for nebulization 3 ml inhalation Q6H azithromycin 250 mg tablet See Rx Instructions .ROUTE .COMPLEX Qty: 6 0RF Rx Instructions: For 250 mg dose pack: take 500 mg today (day 1), then 250 mg for 4 days (days 2-5) benzonatate 100 mg capsule 100 mg PO TID PRN (Reason: cough) 5 Days Qty: 20 0RF albuterol sulfate 90 mcg/actuation HFA aerosol inhaler 4 inh inhalation Q4H PRN (Reason: shortness of breath or wheezing) Qty: 8.5 0RF Rx Instructions: 4 puffs every 4 hours for 48 hours then as needed for shortness of breath or wheezing following prednisone 50 mg tablet 50 mg PO DAILY 5 Days Qty: 5 0RF Rx Instructions: Please begin 1 day after ED visit Referrals Follow up/Referrals: Provider,Referral, [Referring] - See instructions Clinical Impressions Clinical Impression: Acute exacerbation of chronic obstructive pulmonary disease, Failure of outpatient treatment, Unable to care for self Print Language Print Language: [place]at[place] Discharge ED Provider: Tayo Hairston Adult HPI General Chief complaint: Upper Respiratory Infection Stated complaint: SOA Time Seen by Provider: 12/09/23 12:52 Mode of Arrival: Wheelchair Source of Information: Patient Limitations: No Limitations Description of Symptoms (Recalled from ER Triage Doc. by RN): pt c/o SOA, wheezing and a dry cough. pt states she was diagnosed here on 12/05 with PNA. pt states she has been sick since 12/02 and continues to feel worse. pt is on 2L NC at baseline. Related Data Home Medications ?Medication ?Instructions ?Recorded ?Confirmed allopurinol 100 mg tablet 100 mg PO DAILY gout 05/15/20 03/05/23 benazepril 40 mg tablet 40 mg PO DAILY High blood pressure 05/15/20 03/05/23 atorvastatin 40 mg tablet 40 mg PO HS Cholesterol 06/11/20 03/05/23 cholecalciferol (vitamin D3) 50 1 tab PO DAILY Supplement 06/11/20 03/05/23 mcg (2,000 unit) chewable tablet insulin aspart U-100 100 unit/mL 10 units SQ AC Diabetes 06/15/21 03/05/23 subcutaneous solution potassium chloride 20 mEq 20 meq PO BID Supplement 06/15/21 03/05/23 tablet,extended release(part/cryst) torsemide 100 mg tablet 50 mg PO DAILY DIURETIC 09/20/21 03/05/23 insulin detemir U-100 100 unit/mL 10 units SQ HS Diabetes 09/21/21 03/05/23 (3 mL) subcutaneous pen insulin lispro 100 unit/mL 0 unit SQ ACHS Diabetes 03/30/22 03/05/23 subcutaneous solution ipratropium 0.5 mg-albuterol 3 mg 3 ml inhalation Q6H Breathing 12/10/22 03/05/23 (2.5 mg base)/3 mL nebulization Problems soln Previous Rx's ?Medication ?Instructions ?Recorded ondansetron HCl (PF) 4 mg/2 mL 4 mg (2 mL) IV Q8HP PRN Nausea 09/22/21 injection solution nitrofurantoin 100 mg PO BID 5 days #10 caps 03/05/23 monohydrate/macrocrystals 100 mg capsule (Macrobid) albuterol sulfate 90 mcg/actuation 4 inh inhalation Q4H PRN shortness 12/06/23 aerosol inhaler of breath or wheezing #8.5 grams azithromycin 250 mg tablet See Rx Instructions PO .COMPLEX #6 12/06/23 tabs benzonatate 100 mg capsule 100 mg PO TID PRN cough 5 days #20 12/06/23 caps prednisone 50 mg tablet 50 mg PO DAILY 5 days #5 tabs 12/06/23 Allergies Allergy/AdvReac Type Severity Reaction Status Date / Time codeine [CODEINE] Allergy Mild Verified 03/30/22 11:17 iodine [IODINE] Allergy Mild Verified 03/30/22 11:17 latex [LATEX] Allergy Mild Verified 03/30/22 11:17 oxycodone [OXYCODONE] Allergy Mild Verified 03/30/22 11:17 Sulfa (Sulfonamide Allergy Mild Verified 03/30/22 11:17 Antibiotics) [SULFA (SULFONAMIDE ANTIBIOTICS)] Cephalosporins Allergy Verified 12/10/22 12:21 doxycycline Allergy Verified 12/10/22 12:21 exenatide [From Byetta] Allergy Verified 12/10/22 12:21 glyburide Allergy Verified 12/10/22 12:21 hyoscyamine [From Levbid] Allergy Verified 12/10/22 12:21 levofloxacin [From Levaquin] Allergy Verified 12/10/22 12:21 PCN Allergy Mild Uncoded 05/15/20 10:05 PFS PFS Disclaimer: The information contained in this section may have been updated after the patient was seen, as this information can be updated by other users. Medical History (Updated 12/09/23 @ 17:38 by Obed Lemus MD) MARCELA (obstructive sleep apnea) Diabetes Brain tumor Diastolic dysfunction CAD (coronary artery disease) HTN (hypertension) COPD (chronic obstructive pulmonary disease) Surgical History H/O cardiac catheterization H/O: hysterectomy History of appendectomy Hx of tonsillectomy History of cholecystectomy H/O oophorectomy Family History (Updated 12/10/22 @ 12:06 by Tricia Rosa RN) Other Hypertension Stroke Social History (Updated 12/10/22 @ 12:11 by Tricia Rosa RN) Smoking Status: Never smoker second hand exposure: No alcohol intake: never substance use type: denies use current occupational status: retired Travel in the last 8 weeks: None household members: none housing: house caffeine: No Physical Exam General General appearance: alert and in no apparent distress Medical Decision Making Vital Signs: 12/09/23 12:55 12/09/23 13:00 12/09/23 13:18 Temperature 97.7 F Temperature Source Oral Pulse Rate 82 65 Pulse Rate [Left] 83 Respiratory Rate 20 Blood Pressure 147/71 H 117/96 H Blood Pressure [Right Arm] 147/71 H Blood Pressure Mean [Right Arm] 96 Blood Pressure Source [Right Arm] Automatic Cuff Blood Pressure Position [Right Arm] Sitting 02 Sat by Pulse Oximetry 96 93 L 94 L Oxygen Delivery Method Room Air Oxygen Flow Rate (LPM) 12/09/23 13:30 12/09/23 13:42 12/09/23 13:58 Temperature Temperature Source Pulse Rate 62 60 60 Pulse Rate [Left] Respiratory Rate Blood Pressure 129/54 L 128/62 Blood Pressure [Right Arm] Blood Pressure Mean [Right Arm] Blood Pressure Source [Right Arm] Blood Pressure Position [Right Arm] 02 Sat by Pulse Oximetry 98 97 96 Oxygen Delivery Method Oxygen Flow Rate (LPM) 12/09/23 14:31 12/09/23 15:01 12/09/23 15:31 Temperature Temperature Source Pulse Rate 63 87 88 Pulse Rate [Left] Respiratory Rate Blood Pressure 130/84 156/70 H 148/129 H Blood Pressure [Right Arm] Blood Pressure Mean [Right Arm] Blood Pressure Source [Right Arm] Blood Pressure Position [Right Arm] 02 Sat by Pulse Oximetry 100 94 L 93 L Oxygen Delivery Method Nasal Cannula Oxygen Flow Rate (LPM) 2 12/09/23 16:01 12/09/23 16:31 Temperature Temperature Source Pulse Rate 86 89 Pulse Rate [Left] Respiratory Rate Blood Pressure 159/61 H 145/58 H Blood Pressure [Right Arm] Blood Pressure Mean [Right Arm] Blood Pressure Source [Right Arm] Blood Pressure Position [Right Arm] 02 Sat by Pulse Oximetry 93 L 93 L Oxygen Delivery Method Nasal Cannula Oxygen Flow Rate (LPM) 2 Lab Data Lab results reviewed: Yes I reviewed the patient's lab results. Lab Results 12/09/23 13:10: WBC 9.6, RBC 5.18, Hgb 15.8, Hct 49.9 H, MCV 96.3, MCH 30.5, M CHC 31.7 L, RDW 13.7, Plt Count 269, MPV 7.8, Neut % (Auto) 85.3 H, Lymph % (Auto) 9.5 L, [place] % (Auto) 3.9, Eos % (Auto) 0.8, Baso % (Auto) 0.4, Neut # (Auto) 8.2 H, Lymph # (Auto) 0.9, [place] # (Auto) 0.4, Eos # (Auto) 0.1, Baso # (Auto) 0.0, Total Counted 100, Neutrophils % (Manual) 90 H, Lymphocytes % (Manual) 9 L, Monocytes % (Manual) 1 L, Platelet Estimate Normal, RBC Morphology Normal, Sodium 136, Potassium 4.4, Chloride 100, Carbon Dioxide 29, Anion Gap 11.4, BUN 54 H, Creatinine 1.30 H, Estimated Creat Clear 26, Estimated GFR 39 L, Est GFR ( Amer) 47 L, Glucose 249 H, Calcium 9.7, Magnesium 2.1, Total Bilirubin 0.9, AST 43 H, ALT 38, Alkaline Phosphatase 64, Troponin I 0.05 H, N T-Pro-B Natriuret Pep 1550 H, Total Protein 7.2, Albumin 4.4, Globulin 2.8, Albumin/Globulin Ratio 1.6, Procalcitonin 0.095 12/09/23 13:17: VBG pH 7.42 H, VBG pCO2 42.7, VBG pO2 130.0 H, VBG HCO3 27.2, V BG Total CO2 28.5 H, VBG O2 Saturation 98.8 H, VBG Base Excess 2.8 H, VBG Lactic Acid 2.7 H, SARS-CoV-2 (PCR) Not detected, Influenza A Untype (PCR) Not detected, Influenza Type B (PCR) Not detected 12/09/23 16:30: Troponin I 0.05 H 12/09/23 13:10 12/09/23 13:10 Orders (Tests/Meds): ED MEDICATIONS Discontinued Medications Generic Name Dose Route Start Last Admin Trade Name Freq PRN Reason Stop Dose Admin Albuterol/Ipratropium 3 ml 12/09/23 13:59 12/09/23 14:19 Ipratropium/Albuterol 3 Ml Neb IH 12/09/23 14:00 3 ml ONCE ONE Administration Methylprednisolone Sodium Succinate 80 mg 12/09/23 13:59 12/09/23 14:20 Methylprednisolone Sod Succ 40mg Vial IV 12/09/23 14:00 80 mg ONCE ONE Administration ORDERS Category Date Time Status XR chest portable Stat Exams 12/09/23 13:59 Completed BNP [NT Pro Brain Natriuretic Pep.] Stat Lab 12/09/23 13:10 Completed CBC w/Auto Diff [Complete Blood Count Auto Diff] Stat Lab 12/09/23 13:10 Completed CMP [Comprehensive Metabolic Panel] Stat Lab 12/09/23 13:10 Completed MAG [Magnesium] Stat Lab 12/09/23 13:10 Completed Procalcitonin Stat Lab 12/09/23 13:10 Completed Rapid PCR Covid and Flu A/B Stat Lab 12/09/23 13:17 Completed Troponin I Q3H Lab 12/09/23 13:10 Completed Troponin I Q3H Lab 12/09/23 16:30 Completed VBG [Venous Blood Gas] Stat RT 12/09/23 13:17 Completed
--- NOTE | 2023-12-09 17:43 | PC.NURSE ---
pt being admitted to [facility].
--- NOTE | 2023-12-09 18:07 | PC.NURSE ---
Attempted to call report, pt has not been transferred to an admit in the system.
--- NOTE | 2023-12-09 18:28 | EXP.HP ---
History of Present Illness *Admission Date: 12/09/23 *Reason for visit:: Shortness of breath, dyspnea on exertion *History of present illness: Really nice patient with past medical history of diabetes, hypertension, COPD, recurrent UTI, CAD, CHF. Patient presents with shortness of breath starting over the weekend. Patient visited emergency room on Wednesday, given nebulization treatments, steroids, and discharged on azithromycin. Patient states symptoms unresolved, and represented to her primary care physician in [place] today. Primary care physician recommended patient visit emergency room for admission evaluation. Admits to SOB, CR, weakness over last few days. Denies chest pain, fevers, chills, known sick contacts, recent travel, constipation. Patient's daughter present with patient emergency room and collaborated story. Patient has several medical allergies; most of which resolved in urticaria/hives. I am not sure what antibiotics I can take. [facility] Disclaimer: The information contained in this section may have been updated after the patient was seen, as this information can be updated by other users. Medical History (Updated 12/09/23 @ 17:38 by Obed Lemus MD) MARCELA (obstructive sleep apnea) Diabetes Brain tumor Diastolic dysfunction CAD (coronary artery disease) HTN (hypertension) COPD (chronic obstructive pulmonary disease) Surgical History H/O cardiac catheterization H/O: hysterectomy History of appendectomy Hx of tonsillectomy History of cholecystectomy H/O oophorectomy Family History (Updated 12/10/22 @ 12:06 by Tricia Rosa RN) Other Hypertension Stroke Social History (Updated 12/10/22 @ 12:11 by Tricia Rosa RN) Smoking Status: Never smoker second hand exposure: No alcohol intake: never substance use type: denies use current occupational status: retired Travel in the last 8 weeks: None household members: none housing: house caffeine: No Review of Systems Review of Systems Review of systems:: pertinent systems reviewed and negative unless documented below Meds Home Medications and Allergies Home Medications ?Medication ?Instructions ?Recorded ?Confirmed ?Type allopurinol 100 mg tablet 100 mg PO DAILY gout 05/15/20 03/05/23 History benazepril 40 mg tablet 40 mg PO DAILY High blood pressure 05/15/20 03/05/23 History atorvastatin 40 mg tablet 40 mg PO HS Cholesterol 06/11/20 03/05/23 History cholecalciferol (vitamin D3) 50 1 tab PO DAILY Supplement 06/11/20 03/05/23 History mcg (2,000 unit) chewable tablet insulin aspart U-100 100 unit/mL 10 units SQ AC Diabetes 06/15/21 03/05/23 History subcutaneous solution potassium chloride 20 mEq 20 meq PO BID Supplement 06/15/21 03/05/23 History tablet,extended release(part/cryst) torsemide 100 mg tablet 50 mg PO DAILY DIURETIC 09/20/21 03/05/23 History insulin detemir U-100 100 unit/mL 10 units SQ HS Diabetes 09/21/21 03/05/23 History (3 mL) subcutaneous pen ondansetron HCl (PF) 4 mg/2 mL 4 mg (2 mL) IV Q8HP PRN Nausea 09/22/21 03/05/23 Rx injection solution insulin lispro 100 unit/mL 0 unit SQ ACHS Diabetes 03/30/22 03/05/23 History subcutaneous solution ipratropium 0.5 mg-albuterol 3 mg 3 ml inhalation Q6H Breathing 12/10/22 03/05/23 History (2.5 mg base)/3 mL nebulization Problems soln nitrofurantoin 100 mg PO BID 5 days #10 caps 03/05/23 Rx monohydrate/macrocrystals 100 mg capsule (Macrobid) albuterol sulfate 90 mcg/actuation 4 inh inhalation Q4H PRN shortness 12/06/23 Rx aerosol inhaler of breath or wheezing #8.5 grams azithromycin 250 mg tablet See Rx Instructions PO .COMPLEX #6 12/06/23 Rx tabs benzonatate 100 mg capsule 100 mg PO TID PRN cough 5 days #20 12/06/23 Rx caps prednisone 50 mg tablet 50 mg PO DAILY 5 days #5 tabs 12/06/23 Rx New Prescriptions to Start Prescriptions: Allergies Allergy/AdvReac Type Severity Reaction Status Date / Time codeine [CODEINE] Allergy Mild Verified 03/30/22 11:17 iodine [IODINE] Allergy Mild Verified 03/30/22 11:17 latex [LATEX] Allergy Mild Verified 03/30/22 11:17 oxycodone [OXYCODONE] Allergy Mild Verified 03/30/22 11:17 Sulfa (Sulfonamide Allergy Mild Verified 03/30/22 11:17 Antibiotics) [SULFA (SULFONAMIDE ANTIBIOTICS)] Cephalosporins Allergy Verified 12/10/22 12:21 doxycycline Allergy Verified 12/10/22 12:21 exenatide [From Byetta] Allergy Verified 12/10/22 12:21 glyburide Allergy Verified 12/10/22 12:21 hyoscyamine [From Levbid] Allergy Verified 12/10/22 12:21 levofloxacin [From Levaquin] Allergy Verified 12/10/22 12:21 PCN Allergy Mild Uncoded 05/15/20 10:05 Exam Data for Last 24 hours Vital signs and Labs for Last 24 Hours: Temp Pulse Resp BP Pulse Ox O2 Del Method O2 Flow Rate 97.7 F 89 20 145/58 H 93 L Nasal Cannula 2 12/09/23 13:18 12/09/23 16:31 12/09/23 13:18 12/09/23 16:31 12/09/23 16:31 12/09/23 16:01 12/09/23 16:01 Laboratory Results - last 24 hr 12/09/23 13:10: WBC 9.6, RBC 5.18, Hgb 15.8, Hct 49.9 H, MCV 96.3, MCH 30.5, MCHC 31.7 L, RDW 13.7, Plt Count 269, MPV 7.8, Neut % (Auto) 85.3 H, Lymph % (Auto) 9.5 L, [place] % (Auto) 3.9, Eos % (Auto) 0.8, Baso % (Auto) 0.4, Neut # (Auto) 8.2 H, Lymph # (Auto) 0.9, [place] # (Auto) 0.4, Eos # (Auto) 0.1, Baso # (Auto) 0.0, Total Counted 100, Neutrophils % (Manual) 90 H, Lymphocytes % (Manual) 9 L, Monocytes % (Manual) 1 L, Platelet Estimate Normal, RBC Morphology Normal, Sodium 136, Potassium 4.4, Chloride 100, Carbon Dioxide 29, Anion Gap 11.4, BUN 54 H, Creatinine 1.30 H, Estimated Creat Clear 26, Estimated GFR 39 L, Est GFR ( Amer) 47 L, Glucose 249 H, Calcium 9.7, Magnesium 2.1, Total Bilirubin 0.9, AST 43 H, ALT 38, Alkaline Phosphatase 64, Troponin I 0.05 H, NT-Pro-B Natriuret Pep 1550 H, Total Protein 7.2, Albumin 4.4, Globulin 2.8, Albumin/Globulin Ratio 1.6, Procalcitonin 0.095 12/09/23 13:17: VBG pH 7.42 H, VBG pCO2 42.7, VBG pO2 130.0 H, VBG HCO3 27.2, VBG Total CO2 28.5 H, VBG O2 Saturation 98.8 H, VBG Base Excess 2.8 H, VBG Lactic Acid 2.7 H, SARS-CoV-2 (PCR) Not detected, Influenza A Untype (PCR) Not detected, Influenza Type B (PCR) Not detected 12/09/23 16:30: Troponin I 0.05 H I & O for Last 24 hours: Intake & Output 12/06/23 12/07/23 12/08/23 12/09/23 23:59 23:59 23:59 23:59 Weight 108.862 kg Radiology Reports for the Last 24 Hours: Date of Service: 12/09/23 Procedure(s): XR chest portable Accession Number(s): [id number] cc: Antwon Yun MD; Norma Au APRN~ FINAL REPORT CLINICAL HISTORY: soa, cough, hx copd COMPARISON: 12/06/2023 FINDINGS: SINGLE-VIEW CHEST The heart size is normal. The mediastinum is normal. There are calcified left hilar lymph nodes. The lungs are clear. There is no pneumothorax. IMPRESSION: No acute cardiopulmonary process. Constitutional Constitutional: mild distress *Routine HEENT Exam Head: Present normocephalic Eye: Present EOMI and normal accommodation ENT: Present mucous membranes moist *Routine Neck Exam Neck: Present supple and full ROM *Routine Respiratory Exam Respiratory: Present prolonged expiratory phase, respiratory distress and diminished air movement *Routine Cardiovascular Exam Cardiovascular: Present RRR, Normal S1 and Normal S2 *Routine Abdominal Exam Abdominal: Present soft and normoactive bowel sounds *Routine Rectal Exam Rectal:: deferred *Routine Genitalia Exam Genitalia:: deferred Assessment and Plan *Assessment and plan (1) Asthma exacerbation in COPD: Status: Acute Category: Medical Code(s): J44.1 - Chronic obstructive pulmonary disease with (acute) exacerbation; J45.901 - Unspecified asthma with (acute) exacerbation (2) Acute exacerbation of chronic obstructive pulmonary disease: Status: Acute Category: Medical Code(s): J44.1 - Chronic obstructive pulmonary disease with (acute) exacerbation Plan COPD exacerbation viral versus bacterial: ? Respiratory panel, sputum culture, blood cultures ordered. Start empirical IV azithromycin/aztreonam since patient has several medical allergies. Nebulization treatments, oxygen wean to room air as tolerated. Diabetes: Sign scale insulin, ACHS Accu-Cheks, Lantus 10 units nightly Hypertension: Continue home medications PPx: Lovenox subcutaneous CODE STATUS full FEN: Diabetic
--- NOTE | 2023-12-09 18:37 | PC.NURSE ---
Report called to Cyndi CALVIN
[2023-12-09 18:44] LABS: Adenovirus,PCR Not Detected (NotDetected); Bordetella Pertussis Not Detected (NotDetected); Chlamydophila Pneumoniae, PCR Not Detected (NotDetected); Coronavirus 19, PCR Not Detected (NotDetected); Coronavirus 229E Not Detected (NotDetected); Coronavirus NL63 Not Detected (NotDetected); Coronavirus OC43 Not Detected (NotDetected); Coronovirus HKU1,PCR Not Detected (NotDetected); Human Metapneumovirus Not Detected (NotDetected); Influenza A, PCR Not Detected (NotDetected); Influenza AH1, 2009 Not Detected (NotDetected); Influenza AH1, PCR Not Detected (NotDetected); Influenza AH3,PCR Not Detected (NotDetected); Influenza B, PCR Not Detected (NotDetected); Mycoplasma Pneumoniae, PCR Not Detected (NotDetected); Parainfluenza 1, PCR Not Detected (NotDetected); Parainfluenza 2, PCR Not Detected (NotDetected); Parainfluenza 3, PCR Not Detected (NotDetected); Parainfluenza 4, PCR Not Detected (NotDetected); Respiratory Syncytial Virus Not Detected (NotDetected); Rhinovirus/Enterovirus Not Detected (NotDetected)
--- NOTE | 2023-12-09 18:59 | PC.NURSE ---
arrived by stretcher from ed at 18:57
[2023-12-09 20:38] LABS: POC Glucose,Bedside 415 (70-110)
[2023-12-09 21:21] LABS: POC Glucose,Bedside 450 (70-110)
[2023-12-09] MEDS: METHYLPREDNISOLONE SOD SUCC 125MG VIAL 40 MG IV (21:38)
[2023-12-09] MEDS: AZTREONAM 1 GM in 0.9 % SODIUM CHLORIDE 50 ML IV (21:38)
[2023-12-09] MEDS: INSULIN GLARGINE 100 UNITS/ML 3ML FLEXPEN 10 UNIT SQ (21:41)
[2023-12-09] MEDS: ENOXAPARIN 40MG/0.4ML SYRINGE 40 MG SQ (21:41)
[2023-12-09] MEDS: ATORVASTATIN 40MG TABLET 40 MG PO (21:41)
[2023-12-09] MEDS: humaLOG 100 UNITS/ML 10ML VIAL (SSI) SQ (21:42)
[2023-12-10] MEDS: AZITHROMYCIN 500 MG in 0.9 % SODIUM CHLORIDE 250 ML 250 MG IV ×2 (00:43→17:20)
[2023-12-10] MEDS: METHYLPREDNISOLONE SOD SUCC 125MG VIAL 40 MG IV ×2 (01:53→06:52)
[2023-12-10] MEDS: AZTREONAM 1 GM in 0.9 % SODIUM CHLORIDE 50 ML IV ×2 (03:09→16:17)
[2023-12-10 04:00] VITALS: BP 134/73; PULSE 65; RESP 16; TEMP 37.1; O2SAT 93; BMI 43.3
--- NOTE | 2023-12-10 05:10 | PC.NURSE ---
Pt is A&OX4 and has remained on 2L O2 nasal cannula. IV in right forearm infiltrated and was removed. Pharmacy was contacted and informed to place warm compress on site. Swelling has gone down and pt has no complaints of discomfort in the area. She is currently asleep with call light within reach.
[2023-12-10 06:06] LABS: POC Glucose,Bedside 334 (70-110)
[2023-12-10] MEDS: humaLOG 100 UNITS/ML 10ML VIAL (SSI) SQ ×4 (06:49→21:04)
[2023-12-10 06:56] LABS: C-Reactive Protein 0.7 mg/L (0-4)
[2023-12-10 08:00] VITALS: BP 132/77; PULSE 91; RESP 16; TEMP 36.7; O2SAT 97
[2023-12-10 09:15] LABS: Procalcitonin 0.097 ng/mL (0.0-2.0)
[2023-12-10] MEDS: CHOLECALCIFEROL 1,000 UNITS (25MCG) TABLET 25 MCG PO (09:32)
[2023-12-10] MEDS: ALLOPURINOL 100MG TABLET 100 MG PO (09:32)
[2023-12-10] MEDS: ENOXAPARIN 30MG/0.3ML SYRINGE 30 MG SQ (09:32)
[2023-12-10] MEDS: LISINOPRIL 20MG TABLET 40 MG PO (09:32)
--- NOTE | 2023-12-10 09:46 | HMH.PTEV ---
Physical Therapy Evaluation Rehab PT IP Evaluation Start: 12/10/23 08:51 Freq: ONCE Status: Active Protocol: Document 12/10/23 09:38 RAOUL (Rec: 12/10/23 09:46 RAOUL [id number]) Subjective/History History History H&P: Really nice patient with past medical history of diabetes, hypertension, COPD, recurrent UTI, CAD, CHF. Patient presents with shortness of breath starting over the weekend. Patient visited emergency room on Wednesday, given nebulization treatments, steroids, and discharged on azithromycin. Patient states symptoms unresolved, and represented to her primary care physician in [place] today. Primary care physician recommended patient visit emergency room for admission evaluation. Admits to SOB, CR, weakness over last few days. Denies chest pain, fevers, chills, known sick contacts, recent travel, constipation. Patient 's daughter present with patient emergency room and collaborated story. Patient has several medical allergies; most of which resolved in urticaria/hives. I am not sure what antibiotics I can take. Subjective Subjective Pt lives alone in a mobile home with ramped entrance. Pt IND with mobility using rollator. Pt was still driving . Pt on 2L of supplemental O2 at baseline. New diagnosis of cancer in past 12 No months? Rehab PT IP Eval Objective Appearance Patient Behavior Appropriate,Cooperative Patient Orientation Person,Place Difficulty following instructions none Speech Pattern Clear Ambulation Patient Able to Ambulate Yes Ambulation Observation IP General Gait Pattern Observation No Deviations/Normal Ambulation Distance (feet) 30 Ambulation Assistive Device Rolling Walker Ambulation Ability Contact Guard/Hand Hold Balance Ability to Arise Able, uses arms to help Sitting Balance Steady, safe Standing Balance Steady, wide stance Transfers Bed Transfer Ability Minimal x 1 (25% assist) Sit to Stand Bed Transfer Ability Supervision/Stand by Rehab PT IP prob,goals,plan Problems Date of Evaluation: 12/10/23 PT IP Problems Bed Mobility,Transfers,Gait, Balance Rehab Potential Rehab Potential Good Equipment Needs Assistive Devices Rolling / Wheeled Walker Plan PT Intervention Plan Transfers,Gait Other Intervention Plan 1-2 times PT Plan Frequency Daily Duration LOS Discharge Plan PT Discharge Plan Initial physical therapy evaluation performed. Patient presents below baseline at this time in functional mobility, transfers, gait, and strength. Pt would benefit from skilled PT while at [facility] to prevent further functional decline and maximize safety with mobility. Pt safe to d/c home when deemed medically necessary d/t current level of mobility and home set-up. PT recommending home health PT services to address deficits. Eval Complexity Eval Charge Codes 10801 - Moderate Complexity PHYSICIAN CERTIFICATION: I certify the specified therapy services for Denisa L Sanon are required, authorized, and reviewed every 30 days.
--- NOTE | 2023-12-10 09:53 | XR_ITS ---
FINAL REPORT CLINICAL HISTORY: Confirm PICC line placement COMPARISON: 12/09/2023 FINDINGS: SINGLE-VIEW CHEST The heart size is normal. The mediastinum is normal. The lungs are clear. PICC line tip is at the junction of the subclavian and internal jugular veins. There is no pneumothorax. IMPRESSION: PICC line tip as above. Reviewed, Interpreted and Dictated by Antwon Yun MD Transcribed by Mayte Galeano Authenticated and [facility]
--- NOTE | 2023-12-10 09:54 | HMH.OTEV ---
OT Inpatient Evaluation Rehab OT IP Evaluation Start: 12/10/23 08:51 Freq: ONCE Status: Active Protocol: Document 12/10/23 09:49 SERGEY (Rec: 12/10/23 09:54 [id number] Rehab OT IP Assessment Subjective History H&P: Really nice patient with past medical history of diabetes, hypertension, COPD, recurrent UTI, CAD, CHF. Patient presents with shortness of breath starting over the weekend. Patient visited emergency room on Wednesday, given nebulization treatments, steroids, and discharged on azithromycin. Patient states symptoms unresolved, and represented to her primary care physician in [place] today. Primary care physician recommended patient visit emergency room for admission evaluation. Admits to SOB, CR, weakness over last few days. Denies chest pain, fevers, chills, known sick contacts, recent travel, constipation. Patient 's daughter present with patient emergency room and collaborated story. Patient has several medical allergies; most of which resolved in urticaria/hives. I am not sure what antibiotics I can take. Subjective Pt oriented x 3 on arrival. Pt agreeable to engage in therapy evaluation. Prior to being in the hospital, pt reports she was living alone. Pt claims normally she is independent with all ADLs and simple IADLs. She does have a friend that assists with deeper cleaning of the house. Pt normally uses a rollator during functional transfers. Pt does use oxygen; 2L nc. Objective Patient Orientation Person,Place,Name Right Upper Extremity Gross ROM WFL Left Upper Extremity Gross ROM WFL Bed Mobility bed mobility-scooting,bed mobility - supine/sit Assist Level Minimal x 1 (25% assist) Transfer Training Sit/Stand Transfer Assist Level Contact Guard/Hand Hold Chair Transfer Ability Contact Guard/Hand Hold Chair Transfer Technique Sit to/from Ambulatory Chair Transfer Assistive Devices Rolling Walker Rehab OT IP prob,goals,plan Problems Date of Evaluation: 12/10/23 OT IP Problems Bed Mobility,Transfers,Balance ,Self care,Safety Rehab Potential Rehab Potential Good Equipment Needs Assistive Devices Rolling / Wheeled Walker Plan OT intervention Plan Bed Mobility,Transfers,Balance ,Self care,Safety,Therapeutic Exercise OT Plan Frequency Daily Duration LOS Discharge Goals Bed Mobility Ability Standby Assistance Sit to Stand Chair Transfer Ability Supervision/Stand by,Contact Guard/Hand Hold Chair Transfer Ability Supervision/Stand by,Contact Guard/Hand Hold Chair Transfer Technique Sit to/from Ambulatory Chair Transfer Assistive Devices Rolling Walker Lower Body Dressing Ability Minimal Assistance Upper Body Dressing Ability Contact Guard Bathing Ability Minimal Assistance Performing Toilet Hygiene Ability Contact Guard Overall Commode/Toilet Transfer Ability Standby Assistance,Contact Guard Commode/Toilet Transfer Technique Sit to/from Ambulatory Commode/Toilet Transfer Assistive Grab Bars Devices Oral Care Assist Standby Assistance Discharge Plan OT Discharge Plan Initial occupational therapy evaluation performed. Patient presents below baseline at this time in functional mobility, transfers, ADL independence, and strength. Pt would benefit from skilled OT while at [facility] to prevent further functional decline and maximize safety. Pt safe to d /c home when deemed medically necessary d/t current level of mobility and home set-up. OT recommending home health OT services to address deficits. Eval Complexity Eval Charge Codes 04685 - Moderate Complexity PHYSICIAN CERTIFICATION: I certify the specified therapy services for Denisa Sanon are required, authorized, and reviewed every 30 days.
[2023-12-10 11:06] LABS: POC Glucose,Bedside 396 (70-110)
--- NOTE | 2023-12-10 11:11 | HMH.PHAINT1 ---
Pharmacy Intervention Comments: home medication list verified using list from outpatient pharmacy and pt interview
--- NOTE | 2023-12-10 15:14 | EXP.ACUTE.PN ---
Subjective *Date: 12/10/23 *Time: 15:23 Interval history: Patient very pleasant during a.m. evaluation today. Suffering from hypoglycemia on IV glucocorticoids. Still wheezing and suffering from shortness of breath. Numerous IVs infiltrated overnight, and patient receiving PICC line placement today. Medical Exam Vital signs and Labs for Last 24 Hours: Vital Signs Temp Pulse Pulse Resp BP BP Pulse Ox 12/10/23 14:34 12/10/23 13:00 12/10/23 10:32 12/10/23 09:00 12/10/23 08:00 12/10/23 08:00 98.1 F 91 H 16 132/77 97 12/10/23 06:39 12/10/23 05:00 12/10/23 04:00 98.7 F 65 16 134/73 93 L 12/10/23 03:00 12/10/23 01:00 12/09/23 23:59 97.5 F L 67 18 149/71 H 96 12/09/23 23:00 12/09/23 21:00 12/09/23 20:00 98.7 F 94 H 22 169/97 H 94 L 12/09/23 19:00 12/09/23 19:00 12/09/23 19:00 98.1 F 84 18 155/62 H 95 12/09/23 18:49 98.5 F 84 18 129/64 12/09/23 18:31 90 129/64 95 12/09/23 16:31 89 145/58 H 93 L 12/09/23 16:01 86 159/61 H 93 L 12/09/23 15:31 88 148/129 H 93 L O2 Del Method O2 Flow Rate 12/10/23 14:34 Nasal Cannula 2 12/10/23 13:00 Nasal Cannula 2 12/10/23 10:32 Nasal Cannula 2 12/10/23 09:00 Nasal Cannula 2 12/10/23 08:00 Nasal Cannula 2 12/10/23 08:00 12/10/23 06:39 Nasal Cannula 2 12/10/23 05:00 Nasal Cannula 2 12/10/23 04:00 Nasal Cannula 2 12/10/23 03:00 Nasal Cannula 2 12/10/23 01:00 Nasal Cannula 2 12/09/23 23:59 Nasal Cannula 2 12/09/23 23:00 Nasal Cannula 2 12/09/23 21:00 Nasal Cannula 2 12/09/23 20:00 12/09/23 19:00 Nasal Cannula 2 12/09/23 19:00 Room Air 12/09/23 19:00 12/09/23 18:49 Nasal Cannula 2 12/09/23 18:31 Nasal Cannula 2 12/09/23 16:31 12/09/23 16:01 Nasal Cannula 2 12/09/23 15:31 Nasal Cannula 2 Intake and Output 12/09/23 12/10/23 12/10/23 23:59 07:59 15:59 Intake Total 500 / 1700 1200 / 1700 Output Total 0 / 300 300 / 300 0 / 300 Balance 0 / 200 200 / 1400 1200 / 1400 Intake: Intake, Oral Amount 500 / 1700 1200 / 1700 Output: Output, Urine Amount 0 / 300 300 / 300 0 / 300 Other: Number of Unmeasured Voids 1 1 Weight 110.268 kg 110.949 kg Patient Weight 12/10/23 23:59 Weight 110.949 kg Laboratory Results - last 24 hr 12/09/23 13:17: Chlamy pneumoniae PCR Not detected, Adenovirus (PCR) Not detected, B. pertussis DNA (PCR) Not detected, Coronavirus OC43 (PCR) Not detected, Coronavirus HKU1 (PCR) Not detected, Coronavirus 229E (PCR) Not detected, SARS-CoV-2 (PCR) Not detected, Coronavirus NL63 (PCR) Not detected, Human Metapneumovir PCR Not detected, Influenza A (H1) PCR Not detected, Influ A (H1N1/09) PCR Not detected, Influenza A (H3) PCR Not detected, Influenza Type A (PCR) Not detected, Influenza Type B (PCR) Not detected, M. pneumoniae (PCR) Not detected, Parainfluenza 1 (PCR) Not detected, Parainfluenza 2 (PCR) Not detected, Parainfluenza 3 (PCR) Not detected, Parainfluenza 4 (PCR) Not detected, RSV (PCR) Not detected, Entero/Rhino (PCR) Not detected 12/09/23 16:30: Troponin I 0.05 H 12/09/23 20:26: POC Glucose 415 H* 12/09/23 21:14: POC Glucose 450 H* 12/10/23 05:53: POC Glucose 334 H* 12/10/23 06:14: C-Reactive Protein 0.7, Procalcitonin 0.097 12/10/23 10:58: POC Glucose 396 H* I & O for Labs for Last 24 Hours: Intake & Output 12/07/23 12/08/23 12/09/23 12/10/23 23:59 23:59 23:59 23:59 Intake Total 1700 / 1700 Output Total 0 / 300 300 / 300 Balance 0 / 200 1400 / 1400 Weight 110.268 kg 110.949 kg Radiology Reports for the Last 24 Hours: CXR FINDINGS: SINGLE-VIEW CHEST The heart size is normal. The mediastinum is normal. The lungs are clear. PICC line tip is at the junction of the subclavian and internal jugular veins. There is no pneumothorax. IMPRESSION: PICC line tip as above. Head: Present normocephalic and normal inspection ENT: Present normal exam and normal oropharynx Neck: Present normal inspection and full ROM Respiratory: Present decreased breath sounds, prolonged expiratory phase and diminished air movement Cardiac: Present Reg Rate and Rhythm and Regular Rate GI: Present soft and normal bowel sounds Rectal (female): Present deferred (female): Present deferred Extremities: Present normal inspection and full ROM Skin: Present intact Assessment and Plan *Assessment and plan (1) Acute exacerbation of chronic obstructive pulmonary disease: Status: Acute Category: Medical Code(s): J44.1 - Chronic obstructive pulmonary disease with (acute) exacerbation (2) Asthma exacerbation in COPD: Status: Acute Category: Medical Code(s): J44.1 - Chronic obstructive pulmonary disease with (acute) exacerbation; J45.901 - Unspecified asthma with (acute) exacerbation (3) Failure of outpatient treatment: Status: Acute Category: Medical Code(s): Z78.9 - Other specified health status Plan Plan COPD exacerbation viral versus bacterial: ? Respiratory panel negative, sputum culture ordered, blood cultures ordered. Start empirical IV azithromycin/aztreonam since patient has several medical allergies. Nebulization treatments, patient currently on home 2 L nasal cannula oxygen requirement. Diabetes: ?12/09 includes glargine to 15 units twice daily given hyperglycemia noted on IV glucocorticoids ? Sign scale insulin, ACHS Accu-Cheks, Lantus 10 units nightly Hypertension: Continue home medications PPx: Lovenox subcutaneous CODE STATUS full FEN: Diabetic Disposition: ? Patient probably appropriate for hospital disposition within the next 48 hours if she continues to improve from respiratory perspective. Patient would likely benefit from home health at time of hospital discharge. Order PT/OT evaluation today.
--- NOTE | 2023-12-10 15:14 | PC.NURSE ---
pt has remained on 2L nc and has remained a&ox4 this shift. pt Iv in rt fa infiltrated this a.m. made aware of pt hx of Iv insertion and ordered a PICC line. double lumen PICC line was inserted by Sultana CALVIN in [facility]. awaiting x-ray report for confirmation of placement. IV antibiotics were retimed by pharmacy d/t PICC line insertion. pt home meds were sent to pharmacy to be packaged and labeled. pt informed on if the medications provided were not to be used, they would be locked in pt room. pt is currently resting in bed w/ call light in reach. no new orders at this time.
--- NOTE | 2023-12-10 15:25 | PC.NURSE ---
Sultana from [facility] called to review PICC line chest x-ray placement. Sultana informed me PICC line was okay to use, however pt could not go home with this PICC line d/t the catheter being short enough to be considered a central line. hospitalist aware. no new orders at this time.
--- NOTE | 2023-12-10 15:25 | PC.NURSE ---
Spoke to Dr Schilling about xray result of PICC line insertion, the tip of the PICC line tip is short (see rad. result) Dr Schilling stated we could use it as a midline and use it for blood draw and administering medications. Notified MARIXA Mcnair on floor of this result.
[2023-12-10 15:57] VITALS: BP 122/68; PULSE 55; RESP 20; TEMP 36.8; O2SAT 98
[2023-12-10] MEDS: METHYLPREDNISOLONE SOD SUCC 40MG VIAL 40 MG IV ×2 (16:04→21:06)
[2023-12-10 16:15] LABS: POC Glucose,Bedside 331 (70-110)
[2023-12-10] MEDS: INSULIN GLARGINE 100 UNITS/ML 3ML FLEXPEN 5 UNIT SQ (16:23)
[2023-12-10 20:00] VITALS: BP 134/53; PULSE 69; RESP 18; TEMP 37.3; O2SAT 100
[2023-12-10 21:04] LABS: POC Glucose,Bedside 419 (70-110)
[2023-12-10] MEDS: INSULIN GLARGINE 100 UNITS/ML 3ML FLEXPEN 15 UNIT SQ (21:05)
[2023-12-10] MEDS: ATORVASTATIN 40MG TABLET 40 MG PO (21:06)
[2023-12-11] MEDS: METHYLPREDNISOLONE SOD SUCC 40MG VIAL 40 MG IV (00:25)
[2023-12-11] MEDS: AZTREONAM 1 GM in 0.9 % SODIUM CHLORIDE 50 ML IV ×3 (00:27→16:12)
--- NOTE | 2023-12-11 03:44 | PC.NURSE ---
Has rested well. [place] elevated 35 Degrees. 02 at 2lnc. Reports SOA with activity. Audible wheezes noted when up ambulating to BR with walker. Dry cough. Still need sputum specimen. Denies pain. FSBS remain elevated requiring S/S insulin.
[2023-12-11 04:00] VITALS: BP 153/79; PULSE 54; RESP 16; TEMP 36.6; O2SAT 97; BMI 43.8
[2023-12-11 05:20] LABS: POC Glucose,Bedside 303 (70-110)
[2023-12-11] MEDS: humaLOG 100 UNITS/ML 10ML VIAL (SSI) SQ ×4 (05:25→21:04)
[2023-12-11 07:27] LABS: C-Reactive Protein 0.8 mg/L (0-4)
[2023-12-11 07:40] LABS: Procalcitonin 0.084 ng/mL (0.0-2.0)
[2023-12-11 08:00] VITALS: BP 138/78; PULSE 84; RESP 18; TEMP 36.4; O2SAT 96
[2023-12-11] MEDS: ALLOPURINOL 100 MG PO (08:38)
[2023-12-11] MEDS: CHOLECALCIFEROL 25 MCG PO (08:38)
[2023-12-11] MEDS: LISINOPRIL 20MG TABLET 40 MG PO (08:39)
[2023-12-11] MEDS: ENOXAPARIN 30MG/0.3ML SYRINGE 30 MG SQ (08:39)
[2023-12-11] MEDS: INSULIN GLARGINE 100 UNITS/ML 3ML FLEXPEN 15 UNIT SQ ×2 (08:44→21:04)
[2023-12-11] MEDS: ALBUTEROL 0.083% 2.5 MG/3 ML NEB IH (09:18)
[2023-12-11 09:19] VITALS: PULSE 87; PULSE 88; O2SAT 96
[2023-12-11 09:49] LABS: Chloride 101 mmol/L (98-107); Potassium 4.2 mmoL/L (3.5-5.1); Sodium 135 mmol/L (136-145)
[2023-12-11 09:52] LABS: Blood Urea Nitrogen 68 mg/dl (7-17); Creatinine Clearance Estimated 23 mL/min (50-200); Estimated Glomerular Filt Rate 36 ml/min (>60); GFR (African American) 43 ML/MIN (>60)
[2023-12-11 09:53] LABS: Anion Gap 11.2 mEq/L (5-15); Calcium 8.9 mg/dl (8.4-10.2); Carbon Dioxide 27 mmol/L (22.0-30.0); Glucose 292 mg/dl (74-100)
[2023-12-11 10:57] LABS: POC Glucose,Bedside 384 (70-110)
[2023-12-11] MEDS: predniSONE 20MG TAB 40 MG PO (11:16)
[2023-12-11] MEDS: ONDANSETRON 4MG ODT 4 MG SL (12:15)
--- NOTE | 2023-12-11 14:34 | P.PN_ITS ---
Subjective *Date: 12/11/23 *Time: 14:34 Interval history: seen at bedside, complains of wheezing in her chest, still has SOb, feeling better than yesterday Exam Data for Last 24 hours Vital signs and Labs for Last 24 Hours: Temp Pulse Resp BP Pulse Ox O2 Del Method O2 Flow Rate 97.6 F 88 18 138/78 96 Nasal Cannula 2 12/11/23 08:00 12/11/23 09:19 12/11/23 08:00 12/11/23 08:00 12/11/23 09:19 12/11/23 13:00 12/11/23 09:19 Laboratory Results - last 24 hr 12/10/23 16:06: POC Glucose 331 H* 12/10/23 20:56: POC Glucose 419 H* 12/11/23 05:13: POC Glucose 303 H* 12/11/23 06:45: Sodium 135 L, Potassium 4.2, Chloride 101, Carbon Dioxide 27, Anion Gap 11.2, BUN 68 H D, Creatinine 1.40 H, Estimated Creat Clear 23, Estimated GFR 36 L, Est GFR ( Amer) 43 L, Glucose 292 H, Calcium 8.9, C- Reactive Protein 0.8, Procalcitonin 0.084 12/11/23 10:32: POC Glucose 384 H* I & O for Last 24 hours: Intake & Output 12/08/23 12/09/23 12/10/23 12/11/23 23:59 23:59 23:59 23:59 Intake Total 2060 / 2590 1909 Output Total 0 / 300 301 / 301 0 / 0 Balance 0 / 200 1759 / 2289 1909 Weight 110.268 kg 110.949 kg 112.173 kg Microbiology Reports for the Last 24 Hours: Microbiology 12/09/23 08:53 Sputum - Expectorated Sputum Gram Stain - Final Constitutional Constitutional: no acute distress *Routine HEENT Exam Head: Present normocephalic Eye: Present EOMI and PERRL ENT: Present mucous membranes moist *Routine Neck Exam Neck: Present supple; Absent lymphadenopathy *Routine Respiratory Exam Respiratory: Present wheezes *Routine Cardiovascular Exam Cardiovascular: Present RRR *Routine Abdominal Exam Abdominal: Present soft and normoactive bowel sounds; Absent tenderness *Routine Extremities Exam Extremities: Absent cyanosis, clubbing or edema *Routine Skin Exam Skin: Present warm; Absent rash *Routine Neurological Exam Neurological: Present alert and oriented X3 Assessment and Plan *Assessment and plan (1) Acute exacerbation of chronic obstructive pulmonary disease: Status: Acute Category: Medical Code(s): J44.1 - Chronic obstructive pulmonary disease with (acute) exacerbation (2) Asthma exacerbation in COPD: Status: Acute Category: Medical Code(s): J44.1 - Chronic obstructive pulmonary disease with (acute) exacerbation; J45.901 - Unspecified asthma with (acute) exacerbation (3) Failure of outpatient treatment: Status: Acute Category: Medical Code(s): Z78.9 - Other specified health status Plan Plan COPD exacerbation ? Respiratory panel negative, sputum culture ordered, blood cultures ordered. Start empirical IV azithromycin/aztreonam since patient has several medical allergies. Nebulization treatments, patient currently on home 2 L nasal cannula oxygen requirement added on prednison continue oxygen supplementation Diabetes: lantus 10 units qhs ISS diabetic diet Hypertension: Continue home medications PPx: Lovenox subcutaneous CODE STATUS full FEN: Diabetic Disposition: hilda REID 1-2 days pending clinical improvement
[2023-12-11 16:00] VITALS: BP 117/47; PULSE 56; RESP 18; TEMP 36.5; O2SAT 98
[2023-12-11 16:24] LABS: POC Glucose,Bedside 362 (70-110)
--- NOTE | 2023-12-11 17:24 | PC.NURSE ---
pt has rested for the majority of the shift. she is currently on 2L NC, tolerating well. crackles heard on auscultation this AM. audible wheezes heard. pt reports SOB with activity. pt is tolerating diet. glucose level at 1100 was 384 and at 1630 was 362, treated per sliding scale. right upper arm PICC dressing is clean and intact, no reports of pain. pt stated she takes PO zofran at home to prevent diarrhea, MD notified. no further requests at this time, call light within reach.
[2023-12-11 17:26] VITALS: BMI 43.8
[2023-12-11 20:00] VITALS: BP 128/73; PULSE 70; RESP 18; TEMP 36.4; O2SAT 97
[2023-12-11 20:32] LABS: POC Glucose,Bedside 341 (70-110)
[2023-12-11] MEDS: AZITHROMYCIN 500 MG in 0.9 % SODIUM CHLORIDE 250 ML 250 MG IV (21:06)
[2023-12-11] MEDS: ATORVASTATIN 40MG TABLET 40 MG PO (21:07)
[2023-12-12] MEDS: AZTREONAM 1 GM in 0.9 % SODIUM CHLORIDE 50 ML IV ×3 (01:24→15:37)
[2023-12-12 04:00] VITALS: BP 99/65; PULSE 62; RESP 16; TEMP 36.8; O2SAT 98; BMI 45.8
[2023-12-12] MEDS: humaLOG 100 UNITS/ML 10ML VIAL (SSI) SQ ×4 (05:25→20:57)
[2023-12-12 05:27] LABS: Basophils # 0.1 K/mm3 (0-0.2); Eosinophils # 0.1 K/mm3 (0.0-0.4); Eosinophils % 0.8 % (0.1-12.0); Hematocrit 46.5 % (37.0-47.0); Hemoglobin 14.5 g/dL (12.2-16.2); Lymphocytes # 0.8 K/mm3 (0.7-4.5); Lymphocytes % 7.5 % (10-50); Mean Corpuscular HGB Conc 31.1 g/dL (31.8-35.4); Mean Corpuscular Volume 96.3 fl (81-99); Mean Platelet Volume 8.1 fl (7.4-10.4); Monocytes # 0.5 K/mm3 (0.1-1.0); Neutrophils # 8.8 K/mm3 (1.8-7.8); Neutrophils % 85.7 % (37.0-80.0); Platelet Count 233 K/mm3 (142-424); Red Blood Count 4.83 M/mm3 (4.20-5.40); Red Cell Distribution Width 13.7 % (11.5-17.5); White Blood Count 10.2 K/mm3 (4.8-10.8)
[2023-12-12 05:31] LABS: MANUAL DIFFERENTIAL MANUAL DIFFERENTIAL (MANUAL DIFF)
[2023-12-12 05:32] LABS: Chloride 100 mmol/L (98-107); Potassium 4.4 mmoL/L (3.5-5.1); Sodium 132 mmol/L (136-145)
[2023-12-12 05:35] VITALS: PULSE 85; PULSE 87; O2SAT 97
[2023-12-12 05:35] LABS: Creatinine Clearance Estimated 22 mL/min (50-200); Estimated Glomerular Filt Rate 33 ml/min (>60); GFR (African American) 40 ML/MIN (>60)
[2023-12-12] MEDS: ALBUTEROL 0.083% 2.5 MG/3 ML NEB IH (05:35)
[2023-12-12 05:36] LABS: Anion Gap 8.4 mEq/L (5-15); Carbon Dioxide 28 mmol/L (22.0-30.0); Glucose 280 mg/dl (74-100)
[2023-12-12 05:38] LABS: Blood Urea Nitrogen 82 mg/dl (7-17)
[2023-12-12 05:39] LABS: POC Glucose,Bedside 315 (70-110)
[2023-12-12 05:46] LABS: Lymphocytes % 14 % (10-50); Monocytes % 9 % (2-9); Neutrophils % 77 % (42-76); Total Cells Counted 100
[2023-12-12 05:49] LABS: Platelet Estimate Normal; Tear Drop Cells 1+
[2023-12-12 05:50] LABS: Hypochromasia 1+
[2023-12-12 05:54] LABS: Burr Cells 1+
[2023-12-12 07:51] VITALS: BP 113/50; PULSE 62; RESP 19; TEMP 36.3; O2SAT 98
[2023-12-12] MEDS: BENZONATATE 100MG CAPSULE 100 MG PO (08:13)
[2023-12-12] MEDS: predniSONE 20MG TAB 40 MG PO (08:14)
[2023-12-12] MEDS: LISINOPRIL 20MG TABLET 40 MG PO (08:14)
[2023-12-12] MEDS: ALLOPURINOL 100 MG PO (08:14)
[2023-12-12] MEDS: ENOXAPARIN 40MG/0.4ML SYRINGE 40 MG SQ (08:18)
[2023-12-12] MEDS: CHOLECALCIFEROL 25 MCG PO (08:18)
[2023-12-12] MEDS: INSULIN GLARGINE 100 UNITS/ML 3ML FLEXPEN 15 UNIT SQ ×2 (08:19→20:56)
[2023-12-12 08:36] LABS: POC Glucose,Bedside 291 (70-110)
[2023-12-12 12:38] LABS: POC Glucose,Bedside 281 (70-110)
[2023-12-12 15:48] VITALS: BP 124/57; PULSE 55; RESP 18; TEMP 36.6; O2SAT 96
[2023-12-12 15:54] LABS: POC Glucose,Bedside 358 (70-110)
--- NOTE | 2023-12-12 16:03 | EXP.PN ---
Subjective *Date: 12/12/23 *Time: 16:03 Interval history: seen at bedside, patient says she slept good and wheezing has improved, feeling better than yesterday, no complains of SOB, CP Exam Data for Last 24 hours Vital signs and Labs for Last 24 Hours: Temp Pulse Resp BP Pulse Ox O2 Del Method O2 Flow Rate 97.9 F 55 L 18 124/57 L 96 Nasal Cannula 2 12/12/23 15:48 12/12/23 15:48 12/12/23 15:48 12/12/23 15:48 12/12/23 15:48 12/12/23 15:48 12/12/23 15:48 FiO2 28 12/11/23 19:46 Laboratory Results - last 24 hr 12/11/23 15:31: POC Glucose 362 H* 12/11/23 20:24: POC Glucose 341 H* 12/12/23 05:18: POC Glucose 315 H* 12/12/23 05:19: WBC 10.2, RBC 4.83, Hgb 14.5, Hct 46.5, MCV 96.3, MCH 30.0, MCHC 31.1 L, RDW 13.7, Plt Count 233, MPV 8.1, Neut % (Auto) 85.7 H, Lymph % (Auto) 7.5 L, [place] % (Auto) 5.0, Eos % (Auto) 0.8, Baso % (Auto) 1.0, Neut # (Auto) 8.8 H, Lymph # (Auto) 0.8, [place] # (Auto) 0.5, Eos # (Auto) 0.1, Baso # (Auto) 0.1, Total Counted 100, Neutrophils % (Manual) 77 H, Lymphocytes % (Manual) 14, Monocytes % (Manual) 9, Platelet Estimate Normal, Hypochromasia 1+, Tear Drop Cells 1+, [place] Cells 1+, Sodium 132 L, Potassium 4.4, Chloride 100, Carbon Dioxide 28, Anion Gap 8.4, BUN 82 H, Creatinine 1.50 H, Estimated Creat Clear 22, Estimated GFR 33 L, Est GFR ( Amer) 40 L, Glucose 280 H, Calcium 8.0 L 12/12/23 08:18: POC Glucose 291 H 12/12/23 12:25: POC Glucose 281 H 12/12/23 15:39: POC Glucose 358 H* I & O for Last 24 hours: Intake & Output 12/09/23 12/10/23 12/11/23 12/12/23 23:59 23:59 23:59 23:59 Intake Total 2060 / 2590 2390 / 2930 1500 / 1500 Output Total 0 / 300 301 / 301 0 / 0 0 / 0 Balance 0 / 200 1759 / 2289 2390 / 2930 1500 / 1500 Weight 110.268 kg 110.949 kg 112.173 kg 117.344 kg Microbiology Reports for the Last 24 Hours: Microbiology 12/10/23 16:00 Blood Blood Culture - Preliminary NO GROWTH AFTER 48 HOURS 12/10/23 15:55 Blood Blood Culture - Preliminary NO GROWTH AFTER 48 HOURS 12/09/23 08:53 Sputum - Expectorated Sputum Gram Stain - Final 12/09/23 08:53 Sputum - Expectorated Sputum Sputum Culture - Preliminary Constitutional Constitutional: no acute distress *Routine HEENT Exam Head: Present normocephalic Eye: Present EOMI and PERRL ENT: Present mucous membranes moist *Routine Neck Exam Neck: Present supple; Absent lymphadenopathy *Routine Respiratory Exam Respiratory: Present CTA bilaterally *Routine Cardiovascular Exam Cardiovascular: Present RRR *Routine Abdominal Exam Abdominal: Present soft and normoactive bowel sounds; Absent tenderness *Routine Extremities Exam Extremities: Absent cyanosis, clubbing or edema *Routine Skin Exam Skin: Present warm; Absent rash *Routine Neurological Exam Neurological: Present alert and oriented X3 Assessment and Plan *Assessment and plan (1) Acute exacerbation of chronic obstructive pulmonary disease: Status: Acute Category: Medical Code(s): J44.1 - Chronic obstructive pulmonary disease with (acute) exacerbation (2) Asthma exacerbation in COPD: Status: Acute Category: Medical Code(s): J44.1 - Chronic obstructive pulmonary disease with (acute) exacerbation; J45.901 - Unspecified asthma with (acute) exacerbation (3) Failure of outpatient treatment: Status: Acute Category: Medical Code(s): Z78.9 - Other specified health status Plan COPD exacerbation Respiratory panel negative, sputum culture ordered, blood cultures ordered. Start empirical IV azithromycin/aztreonam since patient has several medical allergies. Nebulization treatments, patient currently on home 2 L nasal cannula oxygen requirement which is baseline added on prednison continue oxygen supplementation Diabetes: lantus 10 units qhs ISS diabetic diet Hypertension: Continue home medications PPx: Lovenox subcutaneous CODE STATUS full FEN: Diabetic Disposition: patient is stable for discharge pending transport issues l
--- NOTE | 2023-12-12 16:53 | PC.NURSE ---
AOX4, SPENT MOST OF THE DAY UP TO CHAIR AND TOLERATED WELL. SHE IS ABLE TO AMBULATE IN ROOM WITH MINIMAL ASSISTANCE WHILE USING HER WALKER. SHE WAS ABLE TO SPEND MOST OF THE DAY WITHOUT O2 SUPPORT BUT 2LNC WAS RE-APPLIED WHEN SHE RETURNED TO THE BED. DR VILLA DID DISCUSS POSSIBLE D/C WITH THE PATIENT BUT SHE REFUSED STATING THAT SHE DID NOT FEEL SAFE GOING BACK HOME YET AND THAT SHE WAS STILL WHEEZING.
[2023-12-12 18:11] VITALS: O2SAT 92
[2023-12-12 20:00] VITALS: BP 131/95; PULSE 61; RESP 18; TEMP 36.4; O2SAT 96
[2023-12-12] MEDS: AZITHROMYCIN 500 MG in 0.9 % SODIUM CHLORIDE 250 ML 250 MG IV (20:56)
[2023-12-12] MEDS: ATORVASTATIN 40MG TABLET 40 MG PO (20:57)
[2023-12-12 21:10] LABS: POC Glucose,Bedside 243 (70-110)
[2023-12-13] MEDS: AZTREONAM 1 GM in 0.9 % SODIUM CHLORIDE 50 ML IV ×3 (00:39→16:23)
[2023-12-13 04:00] VITALS: BP 108/56; PULSE 58; RESP 16; TEMP 36.6; O2SAT 96; BMI 45.3
[2023-12-13 05:35] LABS: POC Glucose,Bedside 126 (70-110)
[2023-12-13 05:37] LABS: Basophils # 0.1 K/mm3 (0-0.2); Basophils % 0.6 % (0.1-2.0); Eosinophils # 0.1 K/mm3 (0.0-0.4); Eosinophils % 0.6 % (0.1-12.0); Hematocrit 46.5 % (37.0-47.0); Hemoglobin 14.9 g/dL (12.2-16.2); Lymphocytes # 1.4 K/mm3 (0.7-4.5); Lymphocytes % 13.6 % (10-50); Mean Corpuscular Hemoglobin 30.3 pg (27.0-31.2); Mean Corpuscular Volume 94.7 fl (81-99); Mean Platelet Volume 8.1 fl (7.4-10.4); Monocytes # 0.7 K/mm3 (0.1-1.0); Monocytes % 6.3 % (1.7-9.3); Neutrophils # 8.3 K/mm3 (1.8-7.8); Neutrophils % 78.9 % (37.0-80.0); Platelet Count 246 K/mm3 (142-424); Red Blood Count 4.91 M/mm3 (4.20-5.40); Red Cell Distribution Width 13.7 % (11.5-17.5); White Blood Count 10.5 K/mm3 (4.8-10.8)
[2023-12-13 05:50] LABS: Chloride 104 mmol/L (98-107); Potassium 4.4 mmoL/L (3.5-5.1); Sodium 136 mmol/L (136-145)
[2023-12-13 05:53] LABS: Blood Urea Nitrogen 74 mg/dl (7-17); Creatinine Clearance Estimated 25 mL/min (50-200); Estimated Glomerular Filt Rate 39 ml/min (>60); GFR (African American) 47 ML/MIN (>60)
[2023-12-13 05:54] LABS: Anion Gap 5.4 mEq/L (5-15); Calcium 8.3 mg/dl (8.4-10.2); Carbon Dioxide 31 mmol/L (22.0-30.0); Glucose 131 mg/dl (74-100)
[2023-12-13 08:00] VITALS: BP 131/59; PULSE 60; RESP 18; TEMP 36.7; O2SAT 98
[2023-12-13] MEDS: predniSONE 20MG TAB 40 MG PO (08:19)
[2023-12-13] MEDS: ALLOPURINOL 100 MG PO (08:19)
[2023-12-13] MEDS: ENOXAPARIN 40MG/0.4ML SYRINGE 40 MG SQ (08:19)
[2023-12-13] MEDS: CHOLECALCIFEROL 25 MCG PO (08:19)
[2023-12-13] MEDS: LISINOPRIL 20MG TABLET 40 MG PO (08:19)
[2023-12-13] MEDS: INSULIN GLARGINE 100 UNITS/ML 3ML FLEXPEN 15 UNIT SQ ×2 (08:26→20:46)
[2023-12-13 08:43] LABS: POC Glucose,Bedside 179 (70-110)
--- NOTE | 2023-12-13 09:25 | P.PN_ITS ---
Subjective *Date: 12/13/23 *Time: : Interval history: Patient still suffering from wheezing, weakness, CR/SOB despite appropriate COPD management since 12/08. Denies fever/chills overnight. Using wheeled walker at time evaluation by Dr. Vera this morning. Wheezes can be heard to fee t from patient without stethoscope. Medical Exam Vital signs and Labs for Last 24 Hours: Vital Signs Temp Pulse Resp BP Pulse Ox O2 Del Method O2 Flow Rate 12/13/23 08:05 Nasal Cannula 2 12/13/23 08:00 98.0 F 60 18 131/59 L 98 Room Air 12/13/23 07:52 Nasal Cannula 2 12/13/23 06:22 Nasal Cannula 2 12/13/23 05:00 Nasal Cannula 2 12/13/23 04:00 97.9 F 58 L 16 108/56 L 96 Nasal Cannula 2 12/13/23 03:00 Nasal Cannula 2 12/13/23 01:00 Nasal Cannula 2 12/12/23 23:00 Nasal Cannula 2 12/12/23 21:00 Nasal Cannula 2 12/12/23 20:00 Nasal Cannula 2 12/12/23 20:00 97.6 F 61 18 131/95 H 96 Nasal Cannula 12/12/23 18:52 Nasal Cannula 2 12/12/23 18:13 Nasal Cannula 2 12/12/23 18:11 92 L Room Air 12/12/23 17:00 Nasal Cannula 2 12/12/23 15:48 97.9 F 55 L 18 124/57 L 96 Nasal Cannula 2 12/12/23 15:00 Nasal Cannula 2 12/12/23 13:00 Room Air 12/12/23 11:00 Room Air FiO2 12/13/23 08:05 12/13/23 08:00 12/13/23 07:52 12/13/23 06:22 12/13/23 05:00 12/13/23 04:00 12/13/23 03:00 12/13/23 01:00 12/12/23 23:00 12/12/23 21:00 12/12/23 20:00 12/12/23 20:00 12/12/23 18:52 28 12/12/23 18:13 12/12/23 18:11 12/12/23 17:00 12/12/23 15:48 12/12/23 15:00 12/12/23 13:00 12/12/23 11:00 Intake and Output 12/12/23 12/13/23 12/13/23 23:59 07:59 15:59 Intake Total 830 / 2630 300 / 780 480 / 780 Output Total 0 / 0 0 / 0 Balance 830 / 2630 300 / 780 480 / 780 Intake: Intake, Oral Amount 480 / 1680 480 / 480 Intake, Total IV Amount 300 / 300 Azithromycin 500 mg In 0.9 % 250 / 250 Sodium Chloride 250 ml @ 250 mls/hr IV Q24H [facility] Rx#:[id number] Aztreonam 1 gm In 0.9 % Sodium 50 / 50 Chloride 50 ml @ 100 mls/hr IV Q8H [facility] Rx#:[id number] Infusion Intake 350 / 350 Azithromycin 500 mg In 0.9 % 250 / 250 Sodium Chloride 250 ml @ 250 mls/hr IV Q24H [facility] Rx#:[id number] Aztreonam 1 gm In 0.9 % Sodium 100 / 100 Chloride 50 ml @ 100 mls/hr IV Q8H [facility] Rx#:[id number] Output: Output, Urine Amount 0 / 0 0 / 0 Other: Number of Unmeasured Voids 1 1 Weight 116.165 kg Patient Weight 12/13/23 23:59 Weight 116.165 kg Laboratory Results - last 24 hr 12/12/23 12:25: POC Glucose 281 H 12/12/23 15:39: POC Glucose 358 H* 12/12/23 20:55: POC Glucose 243 H 12/13/23 05:28: POC Glucose 126 H 12/13/23 05:30: WBC 10.5, RBC 4.91, Hgb 14.9, Hct 46.5, MCV 94.7, MCH 30.3, MCHC 32.0, RDW 13.7, Plt Count 246, MPV 8.1, Neut % (Auto) 78.9, Lymph % (Auto) 13.6, [place] % (Auto) 6.3, Eos % (Auto) 0.6, Baso % (Auto) 0.6, Neut # (Auto) 8.3 H, Lymph # (Auto) 1.4, [place] # (Auto) 0.7, Eos # (Auto) 0.1, Baso # (Auto) 0.1, Sodium 136, Potassium 4.4, Chloride 104, Carbon Dioxide 31 H, Anion Gap 5.4, BUN 74 H, Creatinine 1.30 H, Estimated Creat Clear 25, Estimated GFR 39 L, Est GFR ( Amer) 47 L, Glucose 131 H, Calcium 8.3 L 12/13/23 08:27: POC Glucose 179 H I & O for Labs for Last 24 Hours: Intake & Output 12/10/23 12/11/23 12/12/23 12/13/23 23:59 23:59 23:59 23:59 Intake Total 2060 / 2590 2390 / 2930 2330 / 2630 780 / 780 Output Total 301 / 301 0 / 0 0 / 0 0 / 0 Balance 1759 / 2289 2390 / 2930 2330 / 2630 780 / 780 Weight 110.949 kg 112.173 kg 117.344 kg 116.165 kg Microbiology Reports for the Last 24 Hours: Microbiology 12/09/23 08:53 Sputum - Expectorated Sputum Gram Stain - Final 12/09/23 08:53 Sputum - Expectorated Sputum Sputum Culture - Final 12/10/23 16:00 Blood Blood Culture - Preliminary NO GROWTH AFTER 48 HOURS 12/10/23 15:55 Blood Blood Culture - Preliminary NO GROWTH AFTER 48 HOURS Head: Present normocephalic Neck: Present normal inspection and full ROM Respiratory: Present prolonged expiratory phase, wheezes and diminished air movement Cardiac: Present Reg Rate and Rhythm, Regular Rate and Regular Rhythm GI: Present soft and normal bowel sounds Rectal (female): Present deferred (female): Present deferred Extremities: Present normal inspection and full ROM Skin: Present intact and dry Assessment and Plan *Assessment and plan (1) Asthma exacerbation in COPD: Status: Acute Category: Medical Code(s): J44.1 - Chronic obstructive pulmonary disease with (acute) exacerbation; J45.901 - Unspecified asthma with (acute) exacerbation (2) CAP (community acquired pneumonia): Status: Acute Category: Medical Code(s): J18.9 - Pneumonia, unspecified organism (3) Acute exacerbation of chronic obstructive pulmonary disease: Status: Acute Category: Medical Code(s): J44.1 - Chronic obstructive pulmonary disease with (acute) exacerbation (4) Weakness: Status: Acute Category: Medical Code(s): R53.1 - Weakness Plan Really nice patient with past medical history of COPD on 2 L home oxygen, ID, asthma, CHF presents with acute on chronic respiratory distress secondary to COPD exacerbation. Patient has been on IV glucocorticoids, nebulization treatments, and conservative care for COPD exacerbation for several days with slow improvement in symptoms. Patient presents with generalized weakness. Acute on chronic respiratory failure secondary to COPD exacerbation ?12/12 patient states breathing not much better versus admission despite appropriate COPD management. Will consult pulmonary for further COPD management recommendations. ? Respiratory panel negative, sputum culture ordered, blood cultures ordered. Start empirical IV azithromycin/aztreonam since patient has several medical allergies. Nebulization treatments, patient currently on home 2 L nasal cannula oxygen requirement. Diabetes: ?12/12 continue to titrate insulin as needed to achieve euglycemia ?12/09 increase glargine to 15 units twice daily given hyperglycemia noted on IV glucocorticoids ? Sign scale insulin, ACHS Accu-Cheks, Lantus 10 units nightly Hypertension: Continue home medications PPx: Lovenox subcutaneous CODE STATUS full FEN: Diabetic Disposition: ? 12/12 patient states respiratory symptoms not improving versus appropriate COPD management from 12/08 to 12/12 per patient and I just want a feel better. Patient declines custodial placement, but might be amendable to short-term rehab. Consulting pulmonary for further treatment recommendations. Hopefully patient can be discharged from hospital within next 48 hours of pulmonary consult agrees.
--- NOTE | 2023-12-13 10:06 | EXP.PULM.CON ---
History of Present Illness History of present illness: Ms. Sanon is a 83-year-old female with reported history diabetes hypertension COPD CAD CHF recurrent UTI presented to ER with worsening respiratory distress and pulmonary was called for further evaluation and management. Afebrile. Hemodynamically stable. No evidence of significant leukocytosis upon admission. Current [id number] smoking history last more than 40 years ago pericardial diagnosis of asthma and COPD. [facility] Disclaimer: The information contained in this section may have been updated after the patient was seen, as this information can be updated by other users. Medical History MARCELA (obstructive sleep apnea) Diabetes Brain tumor Diastolic dysfunction CAD (coronary artery disease) HTN (hypertension) COPD (chronic obstructive pulmonary disease) Surgical History H/O cardiac catheterization H/O: hysterectomy History of appendectomy Hx of tonsillectomy History of cholecystectomy H/O oophorectomy Family History Other Hypertension Stroke Social History Smoking Status: Never smoker second hand exposure: No alcohol intake: never substance use type: denies use current occupational status: retired Travel in the last 8 weeks: None household members: none housing: house caffeine: No Review of Systems Constitutional Constitutional: Reports anorexia, Reports body ache(s) and Reports fatigue Eyes Eyes: Denies eye discharge, Denies dry eyes, Denies irritation and Denies itchy eyes ENT Ears, Nose, Mouth, and Throat: Denies epistaxis, Denies facial pain, Denies lip swelling and Denies throat swelling *Cardiovascular Cardiovascular: Reports dyspnea, Reports dyspnea on exertion and Reports orthopnea *Respiratory Respiratory: Denies change in phlegm color, Reports chest congestion, Reports cough, Reports dyspnea, Reports dyspnea on exertion, Denies excessive phlegm production and Reports wheezing *Gastrointestinal Gastrointestinal: Denies abdominal pain, Denies belching and Denies cramping *Musculoskeletal Musculoskeletal: Reports back pain, Reports myalgias and Reports other (No small joint swelling or Pain) Psychiatric Psychiatric: Denies homicidal ideation and Denies suicidal ideation Endocrine Endocrine: Reports fatigue and Denies heat intolerance Hematologic/Lymphatic Hematologic/Lymphatic: Denies easy bleeding and Denies lymphadenopathy Allergic/Immunologic Allergic/Immunologic: Denies itchy eyes, Denies lip swelling, Denies throat swelling and Reports wheezing Pulmonology Exam Inpatient Vital signs and Labs for Last 24 Hours: Temp Pulse Resp BP Pulse Ox O2 Del Method O2 Flow Rate 98.0 F 60 18 131/59 L 98 Nasal Cannula 2 12/13/23 08:00 12/13/23 08:00 12/13/23 08:00 12/13/23 08:00 12/13/23 08:00 12/13/23 08:05 12/13/23 08:05 FiO2 28 12/12/23 18:52 Laboratory Results - last 24 hr 12/12/23 12:25: POC Glucose 281 H 12/12/23 15:39: POC Glucose 358 H* 12/12/23 20:55: POC Glucose 243 H 12/13/23 05:28: POC Glucose 126 H 12/13/23 05:30: WBC 10.5, RBC 4.91, Hgb 14.9, Hct 46.5, MCV 94.7, MCH 30.3, MCHC 32.0, RDW 13.7, Plt Count 246, MPV 8.1, Neut % (Auto) 78.9, Lymph % (Auto) 13.6, [place] % (Auto) 6.3, Eos % (Auto) 0.6, Baso % (Auto) 0.6, Neut # (Auto) 8.3 H, Lymph # (Auto) 1.4, [place] # (Auto) 0.7, Eos # (Auto) 0.1, Baso # (Auto) 0.1, Sodium 136, Potassium 4.4, Chloride 104, Carbon Dioxide 31 H, Anion Gap 5.4, BUN 74 H, Creatinine 1.30 H, Estimated Creat Clear 25, Estimated GFR 39 L, Est GFR ( Amer) 47 L, Glucose 131 H, Calcium 8.3 L 12/13/23 08:27: POC Glucose 179 H I & O for Labs for Last 24 Hours: Intake & Output 12/10/23 12/11/23 12/12/23 12/13/23 23:59 23:59 23:59 23:59 Intake Total 2060 / 2590 2390 / 2930 2330 / 2630 780 / 780 Output Total 301 / 301 0 / 0 0 / 0 0 / 0 Balance 1759 / 2289 2390 / 2930 2330 / 2630 780 / 780 Weight 244 lb 9.6 oz 247 lb 4.786 oz 258 lb 11.2 oz 256 lb 1.6 oz Microbiology Reports for the Last 24 Hours: Microbiology 12/09/23 08:53 Sputum - Expectorated Sputum Gram Stain - Final 12/09/23 08:53 Sputum - Expectorated Sputum Sputum Culture - Final 12/10/23 16:00 Blood Blood Culture - Preliminary NO GROWTH AFTER 48 HOURS 12/10/23 15:55 Blood Blood Culture - Preliminary NO GROWTH AFTER 48 HOURS Constitutional: Present moderate distress Head: Present normocephalic and atraumatic ENT: Present normal exam, normal oropharynx and mucous membranes moist Neck: Present normal inspection and full ROM Respiratory: Present respiratory distress, wheezes, crackles and able to speak in complete sentences Cardiac: Present S1/S2, Tachycardia and radial pulses present GI: Present soft and distention; Absent tenderness or guarding Rectal (female): Present deferred (female): Present deferred Skin: Present intact; Absent cyanosis or jaundice Neuro: Present alert, awake and oriented x 3 Extremities: Present normal inspection; Absent clubbing or cyanosis Psychiatric: Present normal affect and cooperative Meds Home Medications and Allergies Home Medications ?Medication ?Instructions ?Recorded ?Confirmed ?Type allopurinol 100 mg tablet 100 mg PO DAILY 05/15/20 12/09/23 History cholecalciferol (vitamin D3) 50 1 tab PO DAILY Supplement 06/11/20 12/09/23 History mcg (2,000 unit) chewable tablet insulin aspart U-100 100 unit/mL 10 units SQ AC 06/15/21 12/09/23 History subcutaneous solution torsemide 100 mg tablet 50 mg PO DAILY 09/20/21 12/09/23 History insulin detemir U-100 100 unit/mL 10 units SQ HS Diabetes 09/21/21 12/09/23 History (3 mL) subcutaneous pen albuterol sulfate 90 mcg/actuation 4 inh inhalation Q4H PRN shortness 12/06/23 12/09/23 Rx aerosol inhaler of breath or wheezing #8.5 grams azithromycin 250 mg tablet 250 mg PO DIRECTED 12/10/23 12/10/23 History duloxetine 20 mg capsule,delayed 20 mg PO HS 12/10/23 12/10/23 History release potassium chloride 10 mEq 20 meq PO DAILY 12/10/23 12/10/23 History tablet,extended release New Prescriptions to Start Prescriptions: Allergies Allergy/AdvReac Type Severity Reaction Status Date / Time codeine [CODEINE] Allergy Mild Verified 03/30/22 11:17 iodine [IODINE] Allergy Mild Verified 03/30/22 11:17 latex [LATEX] Allergy Mild Verified 03/30/22 11:17 oxycodone [OXYCODONE] Allergy Mild Verified 03/30/22 11:17 Sulfa (Sulfonamide Allergy Mild Verified 03/30/22 11:17 Antibiotics) [SULFA (SULFONAMIDE ANTIBIOTICS)] Cephalosporins Allergy Verified 12/10/22 12:21 doxycycline Allergy Verified 12/10/22 12:21 exenatide [From [place]] Allergy Verified 12/10/22 12:21 glyburide Allergy Verified 12/10/22 12:21 hyoscyamine [From Levbid] Allergy Verified 12/10/22 12:21 levofloxacin [From Levaquin] Allergy Verified 12/10/22 12:21 PCN Allergy Mild Uncoded 05/15/20 10:05 Results Laboratory Findings 12/13/23 05:30 12/13/23 05:30 Abnormal lab findings: Abnormal Labs 12/09/23 12/09/23 12/09/23 13:10 13:17 16:30 Hct 49.9 H MCHC 31.7 L Neut % (Auto) 85.3 H Lymph % (Auto) 9.5 L Neut # (Auto) 8.2 H Neutrophils % (Manual) 90 H Lymphocytes % (Manual) 9 L Monocytes % (Manual) 1 L VBG pH 7.42 H VBG pO2 130.0 H VBG Total CO2 28.5 H VBG O2 Saturation 98.8 H VBG Base Excess 2.8 H VBG Lactic Acid 2.7 H Sodium Carbon Dioxide BUN 54 H Creatinine 1.30 H Estimated GFR 39 L Est GFR ( Amer) 47 L Glucose 249 H POC Glucose Calcium AST 43 H Troponin I 0.05 H 0.05 H NT-Pro-B Natriuret Pep 1550 H 12/09/23 12/09/23 12/10/23 20:26 21:14 05:53 Hct MCHC Neut % (Auto) Lymph % (Auto) Neut # (Auto) Neutrophils % (Manual) Lymphocytes % (Manual) Monocytes % (Manual) VBG pH VBG pO2 VBG Total CO2 VBG O2 Saturation VBG Base Excess VBG Lactic Acid Sodium Carbon Dioxide BUN Creatinine Estimated GFR Est GFR ( Amer) Glucose POC Glucose 415 H* 450 H* 334 H* Calcium AST Troponin I NT-Pro-B Natriuret Pep 12/10/23 12/10/23 12/10/23 10:58 16:06 20:56 Hct MCHC Neut % (Auto) Lymph % (Auto) Neut # (Auto) Neutrophils % (Manual) Lymphocytes % (Manual) Monocytes % (Manual) VBG pH VBG pO2 VBG Total CO2 VBG O2 Saturation VBG Base Excess VBG Lactic Acid Sodium Carbon Dioxide BUN Creatinine Estimated GFR Est GFR ( Amer) Glucose POC Glucose 396 H* 331 H* 419 H* Calcium AST Troponin I NT-Pro-B Natriuret Pep 12/11/23 12/11/23 12/11/23 05:13 06:45 10:32 Hct MCHC Neut % (Auto) Lymph % (Auto) Neut # (Auto) Neutrophils % (Manual) Lymphocytes % (Manual) Monocytes % (Manual) VBG pH VBG pO2 VBG Total CO2 VBG O2 Saturation VBG Base Excess VBG Lactic Acid Sodium 135 L Carbon Dioxide BUN 68 H D Creatinine 1.40 H Estimated GFR 36 L Est GFR ( Amer) 43 L Glucose 292 H POC Glucose 303 H* 384 H* Calcium AST Troponin I NT-Pro-B Natriuret Pep 12/11/23 12/11/23 12/12/23 15:31 20:24 05:18 Hct MCHC Neut % (Auto) Lymph % (Auto) Neut # (Auto) Neutrophils % (Manual) Lymphocytes % (Manual) Monocytes % (Manual) VBG pH VBG pO2 VBG Total CO2 VBG O2 Saturation VBG Base Excess VBG Lactic Acid Sodium Carbon Dioxide BUN Creatinine Estimated GFR Est GFR ( Amer) Glucose POC Glucose 362 H* 341 H* 315 H* Calcium AST Troponin I NT-Pro-B Natriuret Pep 12/12/23 12/12/23 12/12/23 05:19 08:18 12:25 Hct MCHC 31.1 L Neut % (Auto) 85.7 H Lymph % (Auto) 7.5 L Neut # (Auto) 8.8 H Neutrophils % (Manual) 77 H Lymphocytes % (Manual) Monocytes % (Manual) VBG pH VBG pO2 VBG Total CO2 VBG O2 Saturation VBG Base Excess VBG Lactic Acid Sodium 132 L Carbon Dioxide BUN 82 H Creatinine 1.50 H Estimated GFR 33 L Est GFR ( Amer) 40 L Glucose 280 H POC Glucose 291 H 281 H Calcium 8.0 L AST Troponin I NT-Pro-B Natriuret Pep 12/12/23 12/12/23 12/13/23 15:39 20:55 05:28 Hct MCHC Neut % (Auto) Lymph % (Auto) Neut # (Auto) Neutrophils % (Manual) Lymphocytes % (Manual) Monocytes % (Manual) VBG pH VBG pO2 VBG Total CO2 VBG O2 Saturation VBG Base Excess VBG Lactic Acid Sodium Carbon Dioxide BUN Creatinine Estimated GFR Est GFR ( Amer) Glucose POC Glucose 358 H* 243 H 126 H Calcium AST Troponin I NT-Pro-B Natriuret Pep 12/13/23 12/13/23 05:30 08:27 Hct MCHC Neut % (Auto) Lymph % (Auto) Neut # (Auto) 8.3 H Neutrophils % (Manual) Lymphocytes % (Manual) Monocytes % (Manual) VBG pH VBG pO2 VBG Total CO2 VBG O2 Saturation VBG Base Excess VBG Lactic Acid Sodium Carbon Dioxide 31 H BUN 74 H Creatinine 1.30 H Estimated GFR 39 L Est GFR ( Amer) 47 L Glucose 131 H POC Glucose 179 H Calcium 8.3 L AST Troponin I NT-Pro-B Natriuret Pep Assessment and Plan *Assessment and plan (1) Acute exacerbation of chronic obstructive pulmonary disease: Status: Acute Category: Medical Code(s): J44.1 - Chronic obstructive pulmonary disease with (acute) exacerbation Plan Ms. Sanon is a 83-year-old female with reported history diabetes hypertension COPD CAD CHF recurrent UTI presented to ER with worsening respiratory distress and pulmonary was called for further evaluation and management. Afebrile. Hemodynamically stable. No evidence of significant leukocytosis upon admission. Current 90-dxcg-wula smoking history last more than 40 years ago pericardial diagnosis of asthma and COPD. Venous blood gas upon admission did not show any evidence of hypoxic/hypercarbic respiratory failure most recent blood gas on 542 with a pCO2 of 42.7 and pO2 of 130.0. Comprehensive respiratory viral PCR panel negative KYLE on CKD noted Chest x-ray upon admission no dense consolidative changes noted. Vascular congestion noted. Sputum, yeast isolated, recommend requesting lab for ID. Otherwise moderate gram-positive cocci. Blood cultures no growth so far. Patient currently receiving aztreonam, azithromycin along with steroids and nebulization therapy. Multiple drug allergies including allergies to doxycycline and fluoroquinolones and cephalosporins noted On examination patient does not appear to be in any respiratory distress. Bilateral wheezing. Weaned to room air saturations maintained at 94% and above. Plan: 6-minute walk testing prior to discharge Start Advair 250 daily Continue prednisone 40 mg daily x 5 days DuoNebs every 6 hours and as needed basis Continue treatment for community-acquired ammonia for total of 5 days. Chest x-ray did not show any dense consolidative changes. Thank you for involving pulmonary in this patient care.
--- NOTE | 2023-12-13 10:07 | SW/DCPLANNER ---
Addendum entered by Eula Logan 12/14/23 13:39: Marissa w/ [facility] stated that patient is accepted for services. Addendum entered by Eula Logan 12/14/23 11:37: Patient information/order will be faxed to [facility] . Patient will discharge home today. Original Note: I spoke w/ patient regarding plans once medically stable for discharge. PT/OT evaluated patient and recommended returning home w/ home health services. Patient is agreeable to home health and does not have a preference between [facility] or [facility]. I will set up home health services at time of discharge. Discharge date is unknown at this time.
[2023-12-13 11:21] LABS: POC Glucose,Bedside 200 (70-110)
[2023-12-13] MEDS: humaLOG 100 UNITS/ML 10ML VIAL (SSI) SQ ×3 (11:30→20:45)
[2023-12-13] MEDS: LOPERAMIDE 2MG CAPSULE 2 MG PO (13:20)
[2023-12-13 16:00] VITALS: BP 130/94; PULSE 62; RESP 18; TEMP 36.7; O2SAT 94
[2023-12-13 16:18] LABS: POC Glucose,Bedside 307 (70-110)
[2023-12-13] MEDS: FLUTICASONE/SALMETEROL 250/50MCG DISKUS 1 PUFF IH (18:01)
--- NOTE | 2023-12-13 18:13 | PC.NURSE ---
Pt A&Ox4. Pt up to bedside chair most of shift. Pt has had episodes of diarrhea but was given Immodium per JUN and this was effective. Pt has been on 2L NC most of shift but pt takes O2 off occasionally while resting in bedside chair. Pt has been ambulating with walker to and from bathroom with standby assist. Pt met with care management today to discuss home health with discharge. Pt has audible wheezes and still c/o SOA. Pt given coverage for high FSBS per sliding scale. Pt tolerating meals well. Pt resting in bedside chair with no complaints at this time.
[2023-12-13] MEDS: ONDANSETRON 4MG ODT 4 MG SL (18:34)
[2023-12-13 20:00] VITALS: BP 135/57; PULSE 69; RESP 18; TEMP 36.6; O2SAT 94
[2023-12-13] MEDS: ATORVASTATIN 40MG TABLET 40 MG PO (20:45)
[2023-12-13] MEDS: AZITHROMYCIN 250MG TABLET 500 MG PO (20:45)
[2023-12-13 21:05] LABS: POC Glucose,Bedside 287 (70-110)
[2023-12-14] MEDS: AZTREONAM 1 GM in 0.9 % SODIUM CHLORIDE 50 ML IV ×2 (00:18→08:07)
[2023-12-14 04:00] VITALS: BP 129/69; PULSE 81; RESP 17; TEMP 36.8; O2SAT 93; BMI 45.6
[2023-12-14] MEDS: FLUTICASONE/SALMETEROL 250/50MCG DISKUS 1 PUFF IH (06:28)
[2023-12-14 06:40] LABS: POC Glucose,Bedside 128 (70-110)
--- NOTE | 2023-12-14 07:10 | PC.NURSE ---
pt rested well through the night, remains on room air, wheezing noted with exertion
[2023-12-14 07:22] LABS: Basophils % 0.3 % (0.1-2.0); Eosinophils % 0.5 % (0.1-12.0); Hematocrit 47.7 % (37.0-47.0); Hemoglobin 14.9 g/dL (12.2-16.2); Lymphocytes # 1.8 K/mm3 (0.7-4.5); Lymphocytes % 19.7 % (10-50); Mean Corpuscular HGB Conc 31.3 g/dL (31.8-35.4); Mean Corpuscular Hemoglobin 29.8 pg (27.0-31.2); Mean Corpuscular Volume 95.4 fl (81-99); Monocytes # 0.6 K/mm3 (0.1-1.0); Monocytes % 6.6 % (1.7-9.3); Neutrophils # 6.8 K/mm3 (1.8-7.8); Neutrophils % 72.9 % (37.0-80.0); Platelet Count 248 K/mm3 (142-424); Red Blood Count 4.99 M/mm3 (4.20-5.40); Red Cell Distribution Width 13.7 % (11.5-17.5); White Blood Count 9.3 K/mm3 (4.8-10.8)
[2023-12-14 08:00] VITALS: BP 139/92; PULSE 83; RESP 18; TEMP 36.7; O2SAT 94
[2023-12-14] MEDS: LISINOPRIL 20MG TABLET 40 MG PO (08:06)
[2023-12-14] MEDS: predniSONE 20MG TAB 40 MG PO (08:06)
[2023-12-14] MEDS: ENOXAPARIN 30MG/0.3ML SYRINGE 30 MG SQ (08:06)
[2023-12-14] MEDS: INSULIN GLARGINE 100 UNITS/ML 3ML FLEXPEN 15 UNIT SQ (08:07)
[2023-12-14 08:14] LABS: Chloride 105 mmol/L (98-107); Sodium 136 mmol/L (136-145)
[2023-12-14 08:15] LABS: Potassium 4.4 mmoL/L (3.5-5.1)
[2023-12-14 08:18] LABS: Anion Gap 5.4 mEq/L (5-15); Blood Urea Nitrogen 63 mg/dl (7-17); Calcium 8.3 mg/dl (8.4-10.2); Carbon Dioxide 30 mmol/L (22.0-30.0); Creatinine Clearance Estimated 27 mL/min (50-200); Estimated Glomerular Filt Rate 43 ml/min (>60); GFR (African American) 52 ML/MIN (>60); Glucose 128 mg/dl (74-100)
[2023-12-14] MEDS: CHOLECALCIFEROL 25 MCG PO (08:28)
[2023-12-14] MEDS: ALLOPURINOL 100 MG PO (08:28)
[2023-12-14] MEDS: ONDANSETRON 4MG ODT 4 MG SL (09:35)
--- NOTE | 2023-12-14 09:36 | EXP.PULM.PN ---
Subjective *Date: 12/14/23 *Time: 11:14 Interval history: No acute respiratory events overnight. She denies any respiratory complaints. Pulmonology Exam Inpatient Vital signs and Labs for Last 24 Hours: Temp Pulse Resp BP Pulse Ox O2 Del Method O2 Flow Rate 98.0 F 83 18 139/92 H 94 L Room Air 2 12/14/23 08:00 12/14/23 08:00 12/14/23 08:00 12/14/23 08:00 12/14/23 08:00 12/14/23 08:57 12/14/23 08:00 FiO2 28 12/12/23 18:52 Laboratory Results - last 24 hr 12/13/23 11:12: POC Glucose 200 H 12/13/23 16:10: POC Glucose 307 H* 12/13/23 20:37: POC Glucose 287 H 12/14/23 06:31: POC Glucose 128 H 12/14/23 : WBC 9.3, RBC 4.99, Hgb 14.9, Hct 47.7 H, MCV 95.4, MCH 29.8, MCHC 31.3 L, RDW 13.7, Plt Count 248, MPV 8.0, Neut % (Auto) 72.9, Lymph % (Auto) 19.7, [place] % (Auto) 6.6, Eos % (Auto) 0.5, Baso % (Auto) 0.3, Neut # (Auto) 6.8, Lymph # (Auto) 1.8, [place] # (Auto) 0.6, Eos # (Auto) 0.0, Baso # (Auto) 0.0, Sodium 136, Potassium 4.4, Chloride 105, Carbon Dioxide 30, Anion Gap 5.4, BUN 63 H, Creatinine 1.20 H, Estimated Creat Clear 27, Estimated GFR 43 L, Est GFR ( Amer) 52 L, Glucose 128 H, Calcium 8.3 L Temp Pulse Resp BP Pulse Ox O2 Del Method O2 Flow Rate 98.0 F 60 18 131/59 L 98 Nasal Cannula 2 12/13/23 08:00 12/13/23 08:00 12/13/23 08:00 12/13/23 08:00 12/13/23 08:00 12/13/23 08:05 12/13/23 08:05 FiO2 28 12/12/23 18:52 Laboratory Results - last 24 hr 12/12/23 12:25: POC Glucose 281 H 12/12/23 15:39: POC Glucose 358 H* 12/12/23 20:55: POC Glucose 243 H 12/13/23 05:28: POC Glucose 126 H 12/13/23 05:30: WBC 10.5, RBC 4.91, Hgb 14.9, Hct 46.5, MCV 94.7, MCH 30.3, MCHC 32.0, RDW 13.7, Plt Count 246, MPV 8.1, Neut % (Auto) 78.9, Lymph % (Auto) 13.6, [place] % (Auto) 6.3, Eos % (Auto) 0.6, Baso % (Auto) 0.6, Neut # (Auto) 8.3 H, Lymph # (Auto) 1.4, [place] # (Auto) 0.7, Eos # (Auto) 0.1, Baso # (Auto) 0.1, Sodium 136, Potassium 4.4, Chloride 104, Carbon Dioxide 31 H, Anion Gap 5.4, BUN 74 H, Creatinine 1.30 H, Estimated Creat Clear 25, Estimated GFR 39 L, Est GFR ( Amer) 47 L, Glucose 131 H, Calcium 8.3 L 12/13/23 08:27: POC Glucose 179 H I & O for Labs for Last 24 Hours: Intake & Output 12/11/23 12/12/23 12/13/23 12/14/23 23:59 23:59 23:59 23:59 Intake Total 2390 / 2930 2330 / 2630 1740 / 1740 630 / 630 Output Total 0 / 0 0 / 0 1 / 1 0 / 0 Balance 2390 / 2930 2330 / 2630 1739 / 1739 630 / 630 Weight 247 lb 4.786 oz 258 lb 11.2 oz 256 lb 1.6 oz 257 lb 14.4 oz Intake & Output 12/10/23 12/11/23 12/12/23 12/13/23 23:59 23:59 23:59 23:59 Intake Total 0 / 2590 2390 / 2930 2330 / 2630 780 / 780 Output Total 301 / 301 0 / 0 0 / 0 0 / 0 Balance 1758 / 2288 2390 / 2930 2330 / 2630 780 / 780 Weight 244 lb 9.6 oz 247 lb 4.786 oz 258 lb 11.2 oz 256 lb 1.6 oz Microbiology Reports for the Last 24 Hours: Microbiology 12/09/23 08:53 Sputum - Expectorated Sputum Gram Stain - Final 12/09/23 08:53 Sputum - Expectorated Sputum Sputum Culture - Final Microbiology 12/09/23 08:53 Sputum - Expectorated Sputum Gram Stain - Final 12/09/23 08:53 Sputum - Expectorated Sputum Sputum Culture - Final 12/10/23 16:00 Blood Blood Culture - Preliminary NO GROWTH AFTER 48 HOURS 12/10/23 15:55 Blood Blood Culture - Preliminary NO GROWTH AFTER 48 HOURS Constitutional: Present mild distress Head: Present normocephalic and atraumatic ENT: Present normal exam, normal oropharynx and mucous membranes moist Neck: Present normal inspection and full ROM Respiratory: Present respiratory distress, wheezes and able to speak in complete sentences Cardiac: Present S1/S2, Tachycardia and radial pulses present GI: Present soft and distention; Absent tenderness or guarding Rectal (female): Present deferred (female): Present deferred Skin: Present intact; Absent cyanosis or jaundice Neuro: Present alert, awake and oriented x 3 Extremities: Present normal inspection; Absent clubbing or cyanosis Psychiatric: Present normal affect and cooperative Assessment and Plan *Assessment and plan (1) Acute exacerbation of chronic obstructive pulmonary disease: Status: Acute Category: Medical Code(s): J44.1 - Chronic obstructive pulmonary disease with (acute) exacerbation Plan Ms. Sanon is a 83-year-old female with reported history diabetes hypertension COPD CAD CHF recurrent UTI presented to ER with worsening respiratory distress and pulmonary was called for further evaluation and management. Afebrile. Hemodynamically stable. No evidence of significant leukocytosis upon admission. Current [id number] smoking history last more than 40 years ago pericardial diagnosis of asthma and COPD. Venous blood gas upon admission did not show any evidence of hypoxic/hypercarbic respiratory failure most recent blood gas on 542 with a pCO2 of 42.7 and pO2 of 130.0. Comprehensive respiratory viral PCR panel negative KYLE on CKD noted Chest x-ray upon admission no dense consolidative changes noted. Vascular congestion noted. Sputum, yeast isolated, recommend requesting lab for ID. Otherwise moderate gram-positive cocci. Blood cultures no growth so far. Patient currently receiving aztreonam, azithromycin along with steroids and nebulization therapy. Multiple drug allergies including allergies to doxycycline and fluoroquinolones and cephalosporins noted On initial examination patient does not appear to be in any respiratory distress. Bilateral wheezing. Weaned to room air saturations maintained at 94% and above. Interval update: No acute respiratory events overnight. Patient denies any new respiratory complaints. Weaned to room air with saturations maintained at 94% and above. Continue show wheezing on auscultation, improved from prior. Abx Plan: 6-minute walk testing prior to discharge Continue Advair 250 daily Continue prednisone 40 mg daily x 5 days DuoNebs every 6 hours and as needed basis Continue treatment for community-acquired ammonia for total of 5 days. Chest x-ray did not show any dense consolidative changes. Thank you for involving pulmonary in this patient care. Will follow the patient in pulmonary clinic in 1 to 2 weeks postdischarge.
[2023-12-14 11:14] LABS: POC Glucose,Bedside 246 (70-110)
[2023-12-14] MEDS: humaLOG 100 UNITS/ML 10ML VIAL (SSI) SQ (11:14)
--- NOTE | 2023-12-14 11:30 | P.DS_ITS ---
General Admission date:: 12/09/23 Discharge date: 12/14/23 HPI HPI HPI: Really nice patient with past medical history of diabetes, hypertension, COPD, recurrent UTI, CAD, CHF. Patient presents with shortness of breath starting over the weekend. Patient visited emergency room on Wednesday, given nebulization treatments, steroids, and discharged on azithromycin. Patient states symptoms unresolved, and represented to her primary care physician in [place] today. Primary care physician recommended patient visit emergency room for admission evaluation. Admits to SOB, CR, weakness over last few days. Denies chest pain, fevers, chills, known sick contacts, recent travel, constipation. Patient's daughter present with patient emergency room and collaborated story. Patient has several medical allergies; most of which resolved in urticaria/hives. I am not sure what antibiotics I can take. Hospital Course Hospital Course Hospital Course: Really nice patient with past medical history of COPD on 2 L home oxygen, VT, asthma, CHF presents with acute on chronic respiratory distress secondary to COPD exacerbation. Patient has been on IV glucocorticoids, nebulization treatments, and conservative care for COPD exacerbation for several days with slow improvement in symptoms. Patient presents with generalized weakness. Acute on chronic respiratory failure secondary to COPD exacerbation ? Patient admitted for COPD exacerbation. Required increased oxygen from baseline at home. On 2 L intermittently at home. Overall did well after initiating antibiotics and steroids. Pulmonology was consulted recommended continuing Advair 250 mg daily, continue prednisone 40 mg daily for 5 days. Complete treatment for immunity acquired pneumonia with azithromycin for total of 5 days. Sputum cultures pending, respiratory panel negative on admission. Continues to necessitate oxygen at discharge. Follow-up with pulmonology as an outpatient. Home health ordered to discharge Diabetes: Resume home regimen of detemir 100 units nightly with mealtime 10 units 3 times a day. Glucose well-controlled during admission, 128 on morning of discharge. Hypertension: Continue home medications Gout: Home allopurinol 100 mg daily Hyperlipidemia: Continue Lipitor 40 nightly Total time spent on discharge 32 minutes in counseling, documentation, chart review, and direct care with patient. Exam Data for Last 24 hours Vital signs and Labs for Last 24 Hours: Temp Pulse Resp BP Pulse Ox O2 Del Method O2 Flow Rate 98.0 F 83 18 139/92 H 94 L Room Air 2 12/14/23 08:00 12/14/23 08:00 12/14/23 08:00 12/14/23 08:00 12/14/23 08:00 12/14/23 11:00 12/14/23 08:00 FiO2 28 12/12/23 18:52 Laboratory Results - last 24 hr 12/13/23 16:10: POC Glucose 307 H* 12/13/23 20:37: POC Glucose 287 H 12/14/23 06:31: POC Glucose 128 H 12/14/23 11:07: POC Glucose 246 H 12/14/23 : WBC 9.3, RBC 4.99, Hgb 14.9, Hct 47.7 H, MCV 95.4, MCH 29.8, MCHC 31.3 L, RDW 13.7, Plt Count 248, MPV 8.0, Neut % (Auto) 72.9, Lymph % (Auto) 19.7, [place] % (Auto) 6.6, Eos % (Auto) 0.5, Baso % (Auto) 0.3, Neut # (Auto) 6.8, Lymph # (Auto) 1.8, [place] # (Auto) 0.6, Eos # (Auto) 0.0, Baso # (Auto) 0.0, Sodium 136, Potassium 4.4, Chloride 105, Carbon Dioxide 30, Anion Gap 5.4, BUN 63 H, Creatinine 1.20 H, Estimated Creat Clear 27, Estimated GFR 43 L, Est GFR ( Amer) 52 L, Glucose 128 H, Calcium 8.3 L I & O for Last 24 hours: Intake & Output 12/11/23 12/12/23 12/13/23 12/14/23 23:59 23:59 23:59 23:59 Intake Total 2390 / 2930 2330 / 2630 1740 / 1740 630 / 630 Output Total 0 / 0 0 / 0 1 / 1 0 / 0 Balance 2390 / 2930 2330 / 2630 1739 / 1739 630 / 630 Weight 112.173 kg 117.344 kg 116.165 kg 116.981 kg Microbiology Reports for the Last 24 Hours: Microbiology 12/09/23 08:53 Sputum - Expectorated Sputum Gram Stain - Final 12/09/23 08:53 Sputum - Expectorated Sputum Sputum Culture - Final Constitutional Constitutional: no acute distress, morbidly obese, chronically ill appearing and cooperative *Routine HEENT Exam Head: Present normocephalic Eye: Present EOMI and PERRL ENT: Present mucous membranes moist *Routine Neck Exam Neck: Present supple; Absent lymphadenopathy *Routine Respiratory Exam Respiratory: Present prolonged expiratory phase, wheezes, diminished air movement and normal respiratory effort; Absent rhonchi or crackles *Routine Cardiovascular Exam Cardiovascular: Present RRR *Routine Abdominal Exam Abdominal: Present soft and normoactive bowel sounds; Absent tenderness *Routine Rectal Exam Patient deferred: visual exam *Routine Exam Patient deferred: external exam *Routine Extremities Exam Extremities: Absent cyanosis, clubbing or edema *Routine Skin Exam Skin: Present warm; Absent rash *Routine Neurological Exam Neurological: Present alert, oriented X3 and moving all extremities; Absent altered mental status Results Data Completed and Pending Labs on day of discharge: Labs from last 24 hours 12/14/23 12/14/23 12/14/23 Unknown 11:07 06:31 WBC 9.3 RBC 4.99 Hgb 14.9 Hct 47.7 H MCV 95.4 MCH 29.8 MCHC 31.3 L RDW 13.7 Plt Count 248 MPV 8.0 Neut % (Auto) 72.9 Lymph % (Auto) 19.7 [place] % (Auto) 6.6 Eos % (Auto) 0.5 Baso % (Auto) 0.3 Neut # (Auto) 6.8 Lymph # (Auto) 1.8 [place] # (Auto) 0.6 Eos # (Auto) 0.0 Baso # (Auto) 0.0 Sodium 136 Potassium 4.4 Chloride 105 Carbon Dioxide 30 Anion Gap 5.4 BUN 63 H Creatinine 1.20 H Estimated Creat Clear 27 Estimated GFR 43 L Est GFR ( Amer) 52 L Glucose 128 H POC Glucose 246 H 128 H Calcium 8.3 L 12/13/23 12/13/23 20:37 16:10 WBC RBC Hgb Hct MCV MCH MCHC RDW Plt Count MPV Neut % (Auto) Lymph % (Auto) [place] % (Auto) Eos % (Auto) Baso % (Auto) Neut # (Auto) Lymph # (Auto) [place] # (Auto) Eos # (Auto) Baso # (Auto) Sodium Potassium Chloride Carbon Dioxide Anion Gap BUN Creatinine Estimated Creat Clear Estimated GFR Est GFR ( Amer) Glucose POC Glucose 287 H 307 H* Calcium Preliminary micro results at discharge 12/10/23 16:00 Blood Culture - Preliminary Blood NO GROWTH AFTER 48 HOURS 12/10/23 15:55 Blood Culture - Preliminary Blood NO GROWTH AFTER 48 HOURS DS: Diagnosis Discharge Diagnosis (1) Acute exacerbation of chronic obstructive pulmonary disease: Status: Acute Code(s): J44.1 - Chronic obstructive pulmonary disease with (acute) exacerbation Meds Home Medications and Allergies Home Medications ?Medication ?Instructions ?Recorded ?Confirmed ?Type allopurinol 100 mg tablet 100 mg PO DAILY 05/15/20 12/09/23 History cholecalciferol (vitamin D3) 50 1 tab PO DAILY Supplement 06/11/20 12/09/23 History mcg (2,000 unit) chewable tablet insulin aspart U-100 100 unit/mL 10 units SQ AC 06/15/21 12/09/23 History subcutaneous solution torsemide 100 mg tablet 50 mg PO DAILY 09/20/21 12/09/23 History insulin detemir U-100 100 unit/mL 10 units SQ HS Diabetes 09/21/21 12/09/23 History (3 mL) subcutaneous pen albuterol sulfate 90 mcg/actuation 4 inh inhalation Q4H PRN shortness 12/06/23 12/09/23 Rx aerosol inhaler of breath or wheezing #8.5 grams duloxetine 20 mg capsule,delayed 20 mg PO HS 12/10/23 12/10/23 History release potassium chloride 10 mEq 20 meq PO DAILY 12/10/23 12/10/23 History tablet,extended release atorvastatin 40 mg tablet 40 mg PO HS 30 days #30 tabs 12/14/23 Rx azithromycin 250 mg tablet 500 mg (2 x 250 mg) PO HS 2 days 12/14/23 Rx #4 tabs fluticasone 250 mcg-salmeterol 50 1 inh inhalation BIDRT 30 days #60 12/14/23 Rx mcg/dose blistr powdr for ea inhalation (Advair Diskus) lisinopril 20 mg tablet 40 mg (2 x 20 mg) PO DAILY 30 days 12/14/23 Rx #60 tabs prednisone 20 mg tablet 40 mg (2 x 20 mg) PO DAILY 2 days 12/14/23 Rx #4 tabs New Prescriptions to Start Prescriptions: Kevin Baron azithromycin Kevin King fluticasone propion-salmeterol [Advair Diskus] Kevin King Kevin Castro prednisone Kevin King Allergies Allergy/AdvReac Type Severity Reaction Status Date / Time codeine [CODEINE] Allergy Mild Verified 03/30/22 11:17 iodine [IODINE] Allergy Mild Verified 03/30/22 11:17 latex [LATEX] Allergy Mild Verified 03/30/22 11:17 oxycodone [OXYCODONE] Allergy Mild Verified 03/30/22 11:17 Sulfa (Sulfonamide Allergy Mild Verified 03/30/22 11:17 Antibiotics) [SULFA (SULFONAMIDE ANTIBIOTICS)] Cephalosporins Allergy Verified 12/10/22 12:21 doxycycline Allergy Verified 12/10/22 12:21 exenatide [From [place]] Allergy Verified 12/10/22 12:21 glyburide Allergy Verified 12/10/22 12:21 hyoscyamine [From Levbid] Allergy Verified 12/10/22 12:21 levofloxacin [From Levaquin] Allergy Verified 12/10/22 12:21 PCN Allergy Mild Uncoded 05/15/20 10:05 Discharge Plan Disposition Patient Disposition: Home Health Service Condition: Fair Discharge Order Discharge Orders: Discharge Order (Routine); Ordered 12/14/23 Ordered By: Kevin King Follow up Plan Follow up with: Norma Au APRN [Primary Care Provider] - 12/23/23 2:00 pm Trey Earl MD [Physician] - 12/21/23 1:30 pm Prescriptions/Medication Reconciliation: New atorvastatin 40 mg Tablet 40 mg PO HS 30 Days Qty: 30 0RF fluticasone propion-salmeterol [Advair Diskus] 250-50 mcg/dose Blister With Device 1 inh inhalation BIDRT 30 Days Qty: 60 0RF azithromycin 250 mg Tablet 500 mg PO HS 2 Days Qty: 4 0RF lisinopril 20 mg Tablet 40 mg PO DAILY 30 Days Qty: 60 0RF prednisone 20 mg Tablet 40 mg PO DAILY 2 Days Qty: 4 0RF Continued allopurinol 100 mg tablet 100 mg PO DAILY Patient Comments: Take 1 tablet by mouth daily cholecalciferol (vitamin D3) 50 MCG tablet,chewable 1 tab PO DAILY torsemide 100 MG tablet 50 mg PO DAILY insulin detemir U-100 100 UNIT/ML insulin pen 10 units SQ HS Patient Comments: INJECT 10 UNITS SUBCUTANEOUSLY AT BEDTIME insulin aspart U-100 100 UNIT/ML solution 10 units SQ AC Patient Comments: INJECT 10 UNITS SUBCUTANEOUSLY 5 TO 10 MINUTES BEFORE EACH MEAL ( THREE MEALS PER DAY) albuterol sulfate 90 mcg/actuation HFA aerosol inhaler 4 inh inhalation Q4H PRN (Reason: shortness of breath or wheezing) Qty: 8.5 0RF Rx Instructions: 4 puffs every 4 hours for 48 hours then as needed for shortness of breath or wheezing following potassium chloride 10 mEq tablet extended release 20 meq PO DAILY Patient Comments: TAKE 2 TABLETS BY MOUTH DAILY duloxetine 20 mg capsule,delayed release(DR/EC) 20 mg PO HS Patient Comments: TAKE 1 CAPSULE BY MOUTH NIGHTLY Discontinued azithromycin 250 mg tablet 250 mg PO DIRECTED Rx Instructions: For 250 mg dose pack: take 500 mg today (day 1), then 250 mg for 4 days (days 2-5) Problem Reconciliation Problems Reviewed?: Yes Patient Discharge Instructions ACTIVITY: Continue current activity DIET: continue same diet Patient Instructions: DI for Chronic Obstructive Pulmonary Disease, Peripherally Inserted Central Catheter Infections Print Language: Setswana Providers Primary Care Provider: Norma Au Admit Provider: Sidney Vera Attending Provider: Sidney Vera
--- NOTE | 2023-12-14 12:50 | PC.NURSE ---
dc order in. pts transportation will be here around 3 o'clock.
--- NOTE | 2023-12-15 12:33 | SW/DCPLANNER ---
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 Patient did not have any further needs/questions at this time.
== END 2023-12-14 14:37 | disposition home health service (06) ==
LOC: ER 17:38 → 2ND 18:19
PROVIDERS: Internal Medicine; Admitting Provider Internal Medicine; Emergency Provider Emergency Medicine; PCP Nurse Practitioner Family; Visit Provider Internal Medicine
DX: J44.1 Chronic obstructive pulmonary disease with (acute) exacerbation (principal); J45.901 Unspecified asthma with (acute) exacerbation; R06.09 Other forms of dyspnea; Z78.9 Other specified health status; Z99.81 Dependence on supplemental oxygen; I25.2 Old myocardial infarction; I50.9 Heart failure, unspecified; I11.0 Hypertensive heart disease with heart failure; E11.9 Type 2 diabetes mellitus without complications; I25.10 Atherosclerotic heart disease of native coronary artery without angina pectoris; Z79.4 Long term (current) use of insulin; Z79.899 Other long term (current) drug therapy; G47.33 Obstructive sleep apnea (adult) (pediatric); Z99.89 Dependence on other enabling machines and devices; N17.9 Acute kidney failure, unspecified; Z09 Encounter for follow-up examination after completed treatment for conditions other than malignant neoplasm; Z87.891 Personal history of nicotine dependence
CPT/HCPCS: 36410; 36415; 36569; 71045; 80048; 80053; 82803; 82962; 83735; 83880; 84145; 84484; 85007; 85025; 86140; 87040; 87070; 87205; 87581; 87632; 87635; 87636; 87798; 93005; 94640; 97116; 97162; 97166; 97530; 97535; 99291; C1751; G0378; J0456; J1650; J2919; J7050; J7613; J7620; Q0162

== ENCOUNTER 2024-02-29 09:48 | Outpatient (CLI) | payer MEDICARE, SELFPAY ==
[2024-02-29 10:45] VITALS: PULSE 79; PULSE 84
[2024-02-29] MEDS: ALBUTEROL 0.083% 2.5 MG/3 ML NEB IH (10:45)
== END 2024-02-29 23:59 | disposition home or self-care (01) ==
LOC: RT 09:50
PROVIDERS: PCP Nurse Practitioner Family; Visit Provider Internal Medicine Pulmonary Disease
DX: R06.09 Other forms of dyspnea (principal)
CPT/HCPCS: 94060; 94640; 94726; 94729; J7613

== ENCOUNTER 2024-06-11 09:41 | Observation (INO) | payer MEDICARE, SELFPAY ==
[2024-06-11] VITALS (7 sets, daily range): BP systolic 122–179; BP diastolic 52–93; PULSE 67–78; RESP 16–18; TEMP 36.4–36.6; O2SAT 90–96; BMI 43.4; BMI 43.2
--- NOTE | 2024-06-11 09:42 | PC.NURSE ---
dr parekh at bedside
--- NOTE | 2024-06-11 09:44 | CT_ITS ---
PROCEDURE INFORMATION: Exam: CT Pelvis Without Contrast, Skeleton Exam date and time: 06/11/2024 10:11 AM Age: 83 years old Clinical indication: Injury or trauma; Fall; Other: Pain; Additional info: Fall, posterior midline tender TECHNIQUE: Imaging protocol: Computed tomography of the pelvis without contrast. Exam focused on the skeleton. Radiation optimization: All CT scans at this facility use at least one of these dose optimization techniques: automated exposure control; mA and/or kV adjustment per patient size (includes targeted exams where dose is matched to clinical indication); or iterative reconstruction. COMPARISON: CT ABDOMEN PELVIS W CON 02/21/2023 3:19 PM FINDINGS: Bones/joints: There is interval development of subtle contour deformity at the sacrococcygeal junction with indistinct bandlike lucency likely representing a nondisplaced transverse fracture which is best demonstrated in the sagittal plane. Remaining osseous structures are intact. There is no malalignment. Hip joints are fairly well preserved. There are degenerative changes of lower lumbar spine redemonstrated. Soft tissues: Unremarkable. IMPRESSION: Probable nondisplaced transverse fracture at the sacrococcygeal junction.
--- NOTE | 2024-06-11 09:44 | CT_ITS ---
PROCEDURE INFORMATION: Exam: CT Thoracic Spine Without Contrast Exam date and time: 06/11/2024 10:06 AM Age: 83 years old Clinical indication: Injury or trauma; Fall; Other: Pain; Additional info: Fall, lower back tenderness midline TECHNIQUE: Imaging protocol: Computed tomography of the thoracic spine without contrast. Radiation optimization: All CT scans at this facility use at least one of these dose optimization techniques: automated exposure control; mA and/or kV adjustment per patient size (includes targeted exams where dose is matched to clinical indication); or iterative reconstruction. COMPARISON: CT CERVICAL SPINE WO CON 06/11/2024 10:04 AM FINDINGS: Bones/joints: Thoracic curvature and alignment is unremarkable. Moderate multilevel degenerative changes throughout the thoracic spine with some disc space narrowing, endplate sclerosis and osteophytic lipping. No severe spinal or foraminal stenosis detected. No evidence of fracture, spondylolysis or spondylolisthesis. Soft tissues: No prevertebral paraspinal soft tissue swelling. IMPRESSION: No acute bony abnormalities.
--- NOTE | 2024-06-11 09:44 | CT_ITS ---
PROCEDURE INFORMATION: Exam: CT Cervical Spine Without Contrast Exam date and time: 06/11/2024 10:04 AM Age: 83 years old Clinical indication: Injury or trauma; Fall; Other: Pain TECHNIQUE: Imaging protocol: Computed tomography of the cervical spine without contrast. Radiation optimization: All CT scans at this facility use at least one of these dose optimization techniques: automated exposure control; mA and/or kV adjustment per patient size (includes targeted exams where dose is matched to clinical indication); or iterative reconstruction. COMPARISON: CT HEAD/BRAIN WO CON 06/11/2024 10:03 AM FINDINGS: Limitations: The study is degraded by motion and body habitus. Bones: There is normal alignment of the cervical spine. The vertebral body heights are maintained. There is no spondylolisthesis. Craniocervical relationship is maintained. There are no fractures or dislocations. There is narrowing of the intervertebral disc space at multiple levels in the cervical spine. Lungs: Lung apices are normal. Soft tissues: Unremarkable. IMPRESSION: No evidence of osseous injury to the cervical spine.
--- NOTE | 2024-06-11 09:44 | CT_ITS ---
PROCEDURE INFORMATION: Exam: CT Lumbar Spine Without Contrast Exam date and time: 06/11/2024 10:09 AM Age: 83 years old Clinical indication: Injury or trauma; Fall; Other: Pain; Additional info: Fall, midline tenderness TECHNIQUE: Imaging protocol: Computed tomography of the lumbar spine without contrast. Radiation optimization: All CT scans at this facility use at least one of these dose optimization techniques: automated exposure control; mA and/or kV adjustment per patient size (includes targeted exams where dose is matched to clinical indication); or iterative reconstruction. COMPARISON: CT THORACIC SPINE WO CON 06/11/2024 10:06 AM FINDINGS: Bones/joints: Mild degenerative spondylolisthesis L5-S1 otherwise lumbar curvature and alignment is unremarkable. Anterolateral endplate osteophytes within the upper lumbar spine. Moderate degenerative changes lower lumbar spine with accompanying facet arthrosis.. No significant spinal foraminal stenosis detected. No evidence of fracture or spondylolysis. Soft tissues: No prevertebral paraspinal soft tissue swelling. IMPRESSION: No acute bony abnormalities.
--- NOTE | 2024-06-11 09:44 | CT_ITS ---
PROCEDURE INFORMATION: Exam: CT Head Without Contrast Exam date and time: 06/11/2024 10:03 AM Age: 83 years old Clinical indication: Injury or trauma; Fall; Other: Pain; Additional info: Fall, no apparent head trauma TECHNIQUE: Imaging protocol: Computed tomography of the head without contrast. Radiation optimization: All CT scans at this facility use at least one of these dose optimization techniques: automated exposure control; mA and/or kV adjustment per patient size (includes targeted exams where dose is matched to clinical indication); or iterative reconstruction. COMPARISON: MR HEAD/BRAIN WO CON 08/28/2021 1:56 PM FINDINGS: Limitations: The study is degraded by motion. Brain: There are focal encephalomalacia changes in the left cerebellar hemisphere. There are extensive periventricular white matter changes. There is no intracranial hemorrhage. Cerebral ventricles: The ventricles are not dilated. Paranasal sinuses: Visualized sinuses are unremarkable. No fluid levels. Mastoid air cells: Visualized mastoid air cells are well aerated. Bones: There are postop changes of remote left retrosigmoid craniotomy. Soft tissues: Unremarkable. IMPRESSION: 1. No evidence of intracranial hemorrhage, within limits of study. 2. Extensive chronic small vessel ischemic disease changes. 3. Postop changes of remote left retrosigmoid craniotomy along with focal encephalomalacia changes in the left cerebellar hemisphere.
--- NOTE | 2024-06-11 09:48 | ED_ITS ---
Discharge Plan Disposition Patient Disposition: Admitted Chief Complaint: Fall Prescriptions Prescriptions: No Action allopurinol 100 mg tablet 100 mg PO DAILY Patient Comments: Take 1 tablet by mouth daily fluticasone propion-salmeterol [Advair Diskus] 500-50 mcg/dose blister with device 1 inh inhalation BID Qty: 180 2RF fluticasone propionate [Flonase Allergy Relief] 50 mcg/actuation spray,suspension 1 spray intranasal BID 90 Days Qty: 16 2RF Rx Instructions: administer into each nostril cholecalciferol (vitamin D3) 50 MCG tablet,chewable 1 tab PO DAILY torsemide 100 MG tablet 50 mg PO DAILY insulin detemir U-100 100 UNIT/ML insulin pen 10 units SQ HS Patient Comments: INJECT 10 UNITS SUBCUTANEOUSLY AT BEDTIME insulin aspart U-100 100 UNIT/ML solution 10 units SQ AC Patient Comments: INJECT 10 UNITS SUBCUTANEOUSLY 5 TO 10 MINUTES BEFORE EACH MEAL ( THREE MEALS PER DAY) albuterol sulfate 90 mcg/actuation HFA aerosol inhaler 4 inh inhalation Q4H PRN (Reason: shortness of breath or wheezing) Qty: 8.5 0RF Rx Instructions: 4 puffs every 4 hours for 48 hours then as needed for shortness of breath or wheezing following potassium chloride 10 mEq tablet extended release 20 meq PO DAILY Patient Comments: TAKE 2 TABLETS BY MOUTH DAILY Referrals Follow up/Referrals: Wolf Oneil DO [Staff Physician] - See instructions Provider,Referral, [Referring] - See instructions Clinical Impressions Clinical Impression: Closed coccygeal fracture, Fall, Declining functional status Print Language Print Language: Upper Sorbian Discharge ED Provider: Jesus Oneil General Adult HPI General Chief complaint: Fall Stated complaint: FALL Time Seen by Provider: 06/11/24 09:44 Mode of Arrival: EMS Source of Information: Patient Limitations: No Limitations Description of Symptoms (Recalled from ER Triage Doc. by RN): Patient states she fell on Wednesday and has had continued lower back and butt pain. History of Present Illness HPI narrative: Patient is 83-year-old female not on anticoagulation presents emergency department for evaluation of traumatic injury sustained in a fall. She was sitting in a chair on Wednesday when she inadvertently fell posterior onto her lower back and buttock. She did strike her head without loss of consciousness. She has had some worsening of her lower back pain causing her to call 911 and present here for continued evaluation. She does not have any head or neck pain currently. No other acute complaints at this time. Her baseline is ambulatory and she continues to be ambulatory. Related Data Home Medications ?Medication ?Instructions ?Recorded ?Confirmed allopurinol 100 mg tablet 100 mg PO DAILY 05/15/20 02/29/24 cholecalciferol (vitamin D3) 50 1 tab PO DAILY Supplement 06/11/20 02/29/24 mcg (2,000 unit) chewable tablet insulin aspart U-100 100 unit/mL 10 units SQ AC 06/15/21 02/29/24 subcutaneous solution torsemide 100 mg tablet 50 mg PO DAILY 09/20/21 02/29/24 insulin detemir U-100 100 unit/mL 10 units SQ HS Diabetes 09/21/21 02/29/24 (3 mL) subcutaneous pen potassium chloride 10 mEq 20 meq PO DAILY 12/10/23 02/29/24 tablet,extended release Previous Rx's ?Medication ?Instructions ?Recorded albuterol sulfate 90 mcg/actuation 4 inh inhalation Q4H PRN shortness 12/06/23 aerosol inhaler of breath or wheezing #8.5 grams fluticasone 500 mcg-salmeterol 50 1 inh inhalation BID #180 ea 02/29/24 mcg/dose blistr powdr for inhalation (Advair Diskus) fluticasone propionate 50 1 spray intranasal BID 90 days #16 02/29/24 mcg/actuation nasal grams spray,suspension (Flonase Allergy Relief) Allergies Allergy/AdvReac Type Severity Reaction Status Date / Time codeine (CODEINE) Allergy Mild Verified 02/29/24 11:55 iodine (IODINE) Allergy Mild Verified 02/29/24 11:55 latex (LATEX) Allergy Mild Verified 02/29/24 11:55 oxycodone (OXYCODONE) Allergy Mild Verified 02/29/24 11:55 Sulfa (Sulfonamide Allergy Mild Verified 02/29/24 11:55 Antibiotics) (SULFA (SULFONAMIDE ANTIBIOTICS)) Cephalosporins Allergy Verified 02/29/24 11:55 doxycycline Allergy Verified 02/29/24 11:55 exenatide (From Byetta) Allergy Verified 02/29/24 11:55 glyburide Allergy Verified 02/29/24 11:55 hyoscyamine (From Levbid) Allergy Verified 02/29/24 11:55 levofloxacin (From Levaquin) Allergy Verified 02/29/24 11:55 PCN Allergy Mild Uncoded 02/29/24 11:55 [facility] Disclaimer: The information contained in this section may have been updated after the patient was seen, as this information can be updated by other users. Medical History (Updated 06/11/24 @ 11:43 by Jesus Oneil MD) History of smoking 25-50 pack years Stopped smoking with greater than 20 pack year history Asthma MARCELA (obstructive sleep apnea) Diabetes Brain tumor Diastolic dysfunction CAD (coronary artery disease) HTN (hypertension) COPD (chronic obstructive pulmonary disease) Surgical History H/O cardiac catheterization H/O: hysterectomy History of appendectomy Hx of tonsillectomy History of cholecystectomy H/O oophorectomy Family History Other Hypertension Stroke Social History Smoking Status: Never smoker second hand exposure: No alcohol intake: never substance use type: denies use current occupational status: retired Travel in the last 8 weeks: None household members: none housing: house caffeine: No Have you lived/traveled outside US in past 30 days?: No Contact w/someone who lives/traveled outside US past 30 days?: No Exposure to someone with infectious disease in past 14 days?: No Do you have a fever (greater than 100.4 F or 38 C)?: No Have you tested positive for COVID-19: No Exposed to someone with COVID-19 in past 14 days?: No Do you have a sore throat?: No Do you have a cough?: No Do you have any weakness?: No Do you have any diarrhea?: No Are you experiencing any unusual bleeding?: No Do you have any muscle aches/pain?: No Do you have any abdominal pain?: No Are you experiencing loss of taste or smell?: No Other Medical History Have you received the Flu Vaccine for this season: No Have you received the Pneumonia Vaccine: Yes ROS Obtained: Yes Systems reviewed as appropriate & no additional complaints except as documented Physical Exam General General appearance: alert and in no apparent distress Head Head exam: atraumatic and normocephalic Eye Eye exam: Present PERRL ENT ENT exam: Present mucous membranes moist Neck Neck exam: Present normal inspection; Absent tenderness Chest Chest inspection: Present normal inspection and symmetric chest wall rise Respiratory Respiratory exam: Present normal lung sounds bilaterally; Absent respiratory distress Cardiovascular Cardiovascular exam: Present regular rate and normal rhythm Abdominal Exam Abdominal exam: Present soft Extremities Exam Extremities exam: Present normal inspection; Absent tenderness Back Exam Back exam: Present other (Midline lumbosacral tenderness, no overlying skin changes) Neurological Exam Neurological exam: Present alert and CN II-XII intact Psychiatric Psychiatric exam: Present normal affect Skin Skin exam: Present warm and dry Medical Decision Making Medical Records Screening: Per USPSTF and CDC recommendations, given the prevalence of disease in our region, it is our hospital?s policy to screen for HIV and viral Hepatitis for all patients aged 18 and over and those with ongoing risk factors. Oneal Inquiry Pt receiving controlled substance: No Vital Signs: 06/11/24 09:41 06/11/24 10:31 06/11/24 11:01 Temperature 97.8 F Temperature Source Oral Pulse Rate 70 70 Pulse Rate [Radial] 77 Respiratory Rate 16 Blood Pressure 122/52 L 173/93 H Blood Pressure [Right Arm] 158/74 H Blood Pressure Mean [Right Arm] 102 Blood Pressure Source [Right Arm] Automatic Cuff Blood Pressure Position [Right Arm] Sitting 02 Sat by Pulse Oximetry 95 94 L 96 Oxygen Delivery Method Room Air Room Air Room Air Orders (Tests/Meds): ED MEDICATIONS Discontinued Medications Generic Name Dose Route Start Last Admin Trade Name Freq PRN Reason Stop Dose Admin Acetaminophen 1,000 mg 06/11/24 09:44 06/11/24 10:05 Acetaminophen 500mg Tab PO 06/11/24 09:45 1,000 mg ONCE ONE Administration Lidocaine 1 each 06/11/24 09:44 06/11/24 10:05 Lidocaine 5% Transdermal Patch TP 06/11/24 09:45 1 each ONCE ONE Administration Methocarbamol 1,000 mg 06/11/24 09:47 06/11/24 10:05 Methocarbamol 500mg Tablet PO 06/11/24 09:48 1,000 mg ONCE ONE Administration Oxycodone HCl 2.5 mg 06/11/24 09:48 Oxycodone 5mg Immediate Release Tablet PO 06/11/24 09:49 ONCE ONE ORDERS Category Date Time Status CT bony pelvis Stat Cat Scan 06/11/24 09:[address] cervical spine wo con Stat Cat Scan 06/11/24 09:[address] head/brain wo con Stat Cat Scan 06/11/24 09:[address] lumbar spine wo con Stat Cat Scan 06/11/24 09:[address] thoracic spine wo con Stat Cat Scan 06/11/24 09:44 Completed HIV Combo Stat Lab 06/11/24 09:47 Ordered Hepatitis C Ab Qual. W/ RFX Stat Lab 06/11/24 09:47 Ordered Medical Decision Narrative: In summary patient is a 83-year-old female with past medical history described above who presents emergency department for evaluation of atraumatic back pain. Patient is hemodynamically stable nontoxic-appearing upon arrival, afebrile. Differential includes fracture, musculoskeletal strain, among others. No concern for spinal cord compression syndrome based on history and physical exam, no saddle anesthesia reported patient has 5 out of 5 strength in the lower extremities although it does cause pain in her lower back. Workup will be conducted with noncontrasted CT scan of the head, spine, bony pelvis. Noncontrasted CT scan of the head informally visualized by me no acute large intracranial hemorrhage. Formal read shows extensive chronic small vessel dis ease and postop changes with encephalomalacia but no acute intracranial hemorrhage. Initial inventions include multimodal pain control. Trauma survey reviewed by me and has nondisplaced transverse fracture at the sacrococcygeal junction. There is nothing to do for this except supportive care. Remainder of trauma survey negative. Extensive discussion was had at bedside with family members, patient lives alone and does not have a safe plan of care at home and has had 3 ground-level falls in the last week. She has an unstable knee that is pending surgical intervention. Due to this I think she will benefit from physical therapy evaluation and possible other changes with her mobility at baseline and may be home health. Given this the case discussed with hospital medicine regarding management they will admit the patient their service for continued evaluation at this time. Critical Care Critical Care Time Critical Care Time: No
[2024-06-11] MEDS: ACETAMINOPHEN 500MG TAB 1000 MG PO (10:05)
[2024-06-11] MEDS: METHOCARBAMOL 500MG TABLET 1000 MG PO (10:05)
[2024-06-11] MEDS: LIDOCAINE 5% TRANSDERMAL PATCH 1 EACH TP (10:05)
--- NOTE | 2024-06-11 10:45 | PC.NURSE ---
ROUNDED ON THE PT. THE PT VOICES THAT SHE DOES NOT NEED ANYTHING AT THIS TIME. CALL LIGHT IS WITHIN REACH OF THE PT.
--- NOTE | 2024-06-11 11:06 | PC.NURSE ---
Dr. Oneil at bedside
--- NOTE | 2024-06-11 11:28 | PC.NURSE ---
ROUNDED ON THE PT. THE PT VOICES THAT SHE DOES NOT NEED ANYTHING AT THIS TIME. CALL LIGHT IS WITHIN REACH OF THE PT. FAMILY MEMBERS ARE PRESENT AT THE BEDSIDE.
--- NOTE | 2024-06-11 11:49 | PC.NURSE ---
[employer] NOTIFIED OF ADMISSION
--- NOTE | 2024-06-11 11:59 | PC.NURSE ---
Report given to MARIXA Mccarthy on Med Surg.
--- NOTE | 2024-06-11 12:00 | P.HP_ITS ---
History of Present Illness *Admission Date: 06/11/24 *Reason for visit:: Fall, coccyx fracture *History of present illness: Ms. Sanon is an 83-year-old female with history of diabetes, morbid obesity, gout, hypertension, progressive debility. She lives by herself. Is due to have her knee replaced in the coming months due to instability and its impact on her functionality. She fell at home [place] and has been having worsening pain in her bottom with difficulty getting out of a chair. Today she was unable to get out of chair by herself necessitating EMS to bring her to the ER for evaluation. On workup in the ER, patient found to have coccygeal fracture. Patient unable to stand or get out of bed. She lives by herself. Given her current state, she is not safe to discharge home and medicine was consulted for admission and further management. On evaluation, patient is stable on room air. Denies chest pain or shortness of breath. No nausea or vomiting. States the pain is just gotten worse since Wednesday. Normally gets around with a walker but is unable to rise from a chair. Has a lift chair but even with this was having a difficult time getting up. Extensive discussion on admission about goals of care and whether it safe for her to live by herself or not. Patient has been living by herself since her a few years ago. Has become more debilitated complicated by her severe osteoarthritis in her right knee and morbid obesity. Falls a few times a week, sometimes needs EMS or family/friends to come pick her up. Denies any loss of consciousness or trauma to her head. Alert and oriented x 4. PFSH [facility] Disclaimer: The information contained in this section may have been updated after the patient was seen, as this information can be updated by other users. Medical History (Updated 06/11/24 @ 15:10 by Kevin King MD) History of smoking 25-50 pack years Stopped smoking with greater than 20 pack year history Asthma MARCELA (obstructive sleep apnea) Diabetes Brain tumor Diastolic dysfunction CAD (coronary artery disease) HTN (hypertension) COPD (chronic obstructive pulmonary disease) Surgical History H/O cardiac catheterization H/O: hysterectomy History of appendectomy Hx of tonsillectomy History of cholecystectomy H/O oophorectomy Family History Other Hypertension Stroke Social History Smoking Status: Former smoker tobacco type: cigarettes packs per day: 3 second hand exposure: No alcohol intake: never substance use type: denies use current occupational status: retired Travel in the last 8 weeks: None household members: none housing: house caffeine: No Have you lived/traveled outside US in past 30 days?: No Contact w/someone who lives/traveled outside US past 30 days?: No Exposure to someone with infectious disease in past 14 days?: No Do you have a fever (greater than 100.4 F or 38 C)?: No Have you tested positive for COVID-19: No Exposed to someone with COVID-19 in past 14 days?: No Do you have a sore throat?: No Do you have a cough?: No Do you have any weakness?: No Do you have any diarrhea?: No Are you experiencing any unusual bleeding?: No Do you have any muscle aches/pain?: No Do you have any abdominal pain?: No Are you experiencing loss of taste or smell?: No Other Medical History Have you received the Flu Vaccine for this season: No Have you received the Pneumonia Vaccine: Yes Review of Systems Review of Systems Review of systems (narrative): 14 point review of systems performed, pertinent positives and negatives as per HPI Meds Home Medications and Allergies Home Medications ?Medication ?Instructions ?Recorded ?Confirmed ?Type allopurinol 100 mg tablet 100 mg PO DAILY 05/15/20 06/11/24 History cholecalciferol (vitamin D3) 50 1 tab PO DAILY 06/11/20 06/11/24 History mcg (2,000 unit) chewable tablet torsemide 100 mg tablet 50 mg PO DAILY 09/20/21 06/11/24 History albuterol sulfate 90 mcg/actuation 4 inh inhalation Q4HP PRN 06/11/24 06/11/24 History aerosol inhaler shortness of breath or wheezing fluticasone 500 mcg-salmeterol 50 1 inh inhalation BIDRT 06/11/24 06/11/24 History mcg/dose blistr powdr for inhalation (Advair Diskus) insulin aspart U-100 100 unit/mL 15 unit SQ TID 06/11/24 06/11/24 History (3 mL) subcutaneous pen (Novolog FlexPen U-100 Insulin aspart) insulin glargine 100 unit/mL (3 40 unit SQ BID 06/11/24 06/11/24 History mL) subcutaneous pen (Lantus Solostar U-100 Insulin) ondansetron HCl 4 mg tablet 4 mg PO Q8HP PRN Nausea And 06/11/24 06/11/24 History Vomiting spironolactone 25 mg tablet 25 mg PO DAILY 06/11/24 06/11/24 History tramadol 50 mg tablet 50 mg PO TIDP PRN Severe Pain 06/11/24 06/11/24 History (Scale Score 7-10) New Prescriptions to Start Prescriptions: Allergies Allergy/AdvReac Type Severity Reaction Status Date / Time codeine (CODEINE) Allergy Mild Verified 02/29/24 11:55 iodine (IODINE) Allergy Mild Verified 02/29/24 11:55 latex (LATEX) Allergy Mild Verified 02/29/24 11:55 oxycodone (OXYCODONE) Allergy Mild Verified 02/29/24 11:55 Sulfa (Sulfonamide Allergy Mild Verified 02/29/24 11:55 Antibiotics) (SULFA (SULFONAMIDE ANTIBIOTICS)) Cephalosporins Allergy Verified 02/29/24 11:55 doxycycline Allergy Verified 02/29/24 11:55 exenatide (From Byetta) Allergy Verified 02/29/24 11:55 glyburide Allergy Verified 02/29/24 11:55 hyoscyamine (From Levbid) Allergy Verified 02/29/24 11:55 levofloxacin (From Levaquin) Allergy Verified 02/29/24 11:55 PCN Allergy Mild Uncoded 02/29/24 11:55 Exam Data for Last 24 hours Vital signs and Labs for Last 24 Hours: Temp Pulse Resp BP Pulse Ox O2 Del Method 97.8 F 70 16 173/93 H 96 Room Air 06/11/24 09:41 06/11/24 11:01 06/11/24 09:41 06/11/24 11:01 06/11/24 11:01 06/11/24 11:01 I & O for Last 24 hours: Intake & Output 06/08/24 06/09/24 06/10/24 06/11/24 23:59 23:59 23:59 23:59 Weight 111.13 kg Constitutional Constitutional: no acute distress, morbidly obese and cooperative *Routine HEENT Exam Head: Present normocephalic Eye: Present EOMI and normal accommodation ENT: Present mucous membranes moist *Routine Neck Exam Neck: Present supple and full ROM *Routine Respiratory Exam Respiratory: Present distant breath sounds; Absent rhonchi, wheezes or crackles *Routine Cardiovascular Exam Cardiovascular: Present RRR, Normal S1 and Normal S2 *Routine Abdominal Exam Abdominal: Present soft and normoactive bowel sounds *Routine Rectal Exam Rectal:: deferred *Routine Genitalia Exam Genitalia:: deferred *Routine Extremities Exam Extremities: Present edema (2+ right lower extremity, 1+ left lower extremity); Absent cyanosis or clubbing *Routine Skin Exam Skin: Present intact; Absent cyanosis or erythema *Routine Neurological Exam Neurological: Present alert, oriented X3 and moving all extremities; Absent altered mental status Assessment and Plan *Assessment and plan (1) Declining functional status: Status: Acute Category: Medical Code(s): R53.81 - Other malaise (2) Fall: Status: Acute Category: Medical Code(s): W19.XXXA - Unspecified fall, initial encounter (3) Closed coccygeal fracture: Status: Acute Category: Medical Code(s): S32.2XXA - Fracture of coccyx, initial encounter for closed fracture (4) Hypertension: Status: Acute Category: Medical Code(s): I10 - Essential (primary) hypertension (5) Type 2 diabetes mellitus: Status: Chronic Qualifiers: Diabetes mellitus complication status: with other specified complication Diabetes mellitus skilled nursing insulin use: unspecified skilled nursing insulin use status Qualified Code(s): E11.69 - Type 2 diabetes mellitus with other specified complication Category: Medical Code(s): E11.9 - Type 2 diabetes mellitus without complications (6) MARCELA (obstructive sleep apnea): Status: Acute Category: Medical Code(s): G47.33 - Obstructive sleep apnea (adult) (pediatric) (7) COPD (chronic obstructive pulmonary disease): Status: Acute Category: Medical Code(s): J44.9 - Chronic obstructive pulmonary disease, unspecified (8) Morbid obesity with BMI of 40.0-44.9, adult: Status: Acute Category: Medical Code(s): E66.01 - Morbid (severe) obesity due to excess calories; Z68.41 - Body mass index [BMI] 40.0-44.9, adult Plan 83-year-old female who presents with fall at home. Sustained coccygeal injury. Unable to discharge safely from the ER home as she lives by herself and cannot ambulate or care for self at this time. Necessitating therapy eval for safe dispo planning. Discussed case with ER physician, request admission for therapy eval and case management/social work assistance. I agreed to admit for further care. Hemodynamically stable at this time. Pleasant on exam. Problems addr essed as follows: Declining functional status Close coccygeal fracture Fall - Per my review of CT, has a transverse fracture at the junction between sacrum and coccyx. -Unable to get up from bed or chair independently. Due to debility, will have therapy evaluate her in the morning. May necessitate placement. 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 States this does not impact her balance however given her frequent falls, it is definitely complicating factor in conjunction with her osteoarthritis in her right knee. -Hydrocodone 5 mg as needed every 6 hours for pain - No electrolyte disturbance. Will repeat CBC, CMP, magnesium ordered for the morning Continue allopurinol 100 mg daily for gout COPD: Continue Advair discus daily, does not appear in exacerbation at this time Edema: Hypertension: -Denies history of CHF. Will continue spironolactone 25 mg daily and Bumex 1 mg p.o. twice daily for edema. Diabetes: A1c well-controlled at 7.1. Fingerstick glucose 200. Continue basal insulin with Lantus 40 units twice daily and fingerstick glucose ACHS with sliding scale insulin. CKD: BUN 33, creatinine 1.3. Sees a customer service clerk. Caution with nephrotoxins. Morbid obesity complicates all aspects of her care Full code Diabetic diet Will need social work assistance for dispo planning when stable for discharge after therapy eval
--- NOTE | 2024-06-11 13:06 | HMH.PHAINT1 ---
Pharmacy Intervention Comments: MEDICATION RECONCILIATION COMPLETE USING EXTERNAL PHARMACY FILL HISTORY, RECENT PULMONOLOGY OFFICE VISIT NOTE, AND PHUONG REPORT.
[2024-06-11] MEDS: BUMETANIDE 1 MG TABLET PO (15:55)
[2024-06-11] MEDS: humaLOG 100 UNITS/ML 10ML VIAL (SSI) SUBCUT ×2 (16:00→20:56)
[2024-06-11 16:03] LABS: POC Glucose,Bedside 201 (70-110)
[2024-06-11] MEDS: HYDROCODONE/APAP 5/325 MG TABLET 1 TAB PO (16:08)
[2024-06-11 16:14] LABS: Chloride 92 mmol/L (98-107)
[2024-06-11 16:15] LABS: Albumin Level 4.1 g/dl (3.5-5.0); Potassium 3.5 mmoL/L (3.5-5.1); Sodium 135 mmol/L (136-145)
[2024-06-11 16:17] LABS: Anion Gap 10.5 mEq/L (5-15); Blood Urea Nitrogen 33 mg/dl (7-17); Carbon Dioxide 36 mmol/L (22.0-30.0); Creatinine Clearance Estimated 27 mL/min (50-200); Estimated Glomerular Filt Rate 39 ml/min (>60); GFR (African American) 47 ML/MIN (>60)
[2024-06-11 16:18] LABS: Alanine Aminotransferase 21 U/L (12-78); Albumin/Globulin Ratio 1.7 (1.1-1.8); Alkaline Phosphatase 70 U/L (38-126); Aspartate Amino Transferase 34 U/L (14-36); Calcium 8.8 mg/dl (8.4-10.2); Globulin 2.4 g/dL (1.3-3.2); Glucose 206 mg/dl (74-100); Total Protein,Serum 6.5 g/dl (6.3-8.2)
[2024-06-11 16:38] LABS: Hemoglobin A1C 7.1 % (4.0-6.0)
[2024-06-11 20:07] LABS: POC Glucose,Bedside 228 (70-110)
[2024-06-11] MEDS: INSULIN GLARGINE 100 UNITS/ML 3ML FLEXPEN 40 UNIT SUBCUT (20:57)
[2024-06-12] MEDS: HYDROCODONE/APAP 5/325 MG TABLET 1 TAB PO (02:31)
[2024-06-12 04:00] VITALS: BP 135/72; PULSE 70; RESP 17; TEMP 36.7; O2SAT 91; BMI 43.0
--- NOTE | 2024-06-12 05:28 | PC.NURSE ---
Pt c/o of pain at 230, pain medication given per JUN. Reassessment of pain completed. Pt stated her pain went from 8 to 1. Blood glucose monitored-ACHS. ox4, v/s. Plan of care ongoing.
[2024-06-12 06:08] LABS: POC Glucose,Bedside 91 (70-110)
[2024-06-12] MEDS: FLUTICASONE/SALMETEROL 500/50MCG DISKUS 1 PUFF IH (06:21)
[2024-06-12 06:53] LABS: Basophils % 0.5 % (0.1-2.0); Eosinophils # 0.3 K/mm3 (0.0-0.4); Eosinophils % 3.3 % (0.1-12.0); Hematocrit 47.5 % (37.0-47.0); Hemoglobin 15.4 g/dL (12.2-16.2); Lymphocytes # 1.8 K/mm3 (0.7-4.5); Lymphocytes % 23.4 % (10-50); Mean Corpuscular HGB Conc 32.4 g/dL (31.8-35.4); Mean Corpuscular Hemoglobin 28.4 pg (27.0-31.2); Mean Corpuscular Volume 87.6 fl (81-99); Monocytes # 0.7 K/mm3 (0.1-1.0); Monocytes % 9.3 % (1.7-9.3); Neutrophils % 63.2 % (37.0-80.0); Platelet Count 244 K/mm3 (142-424); Red Blood Count 5.42 M/mm3 (4.20-5.40); Red Cell Distribution Width 13.4 % (11.5-17.5); White Blood Count 7.9 K/mm3 (4.8-10.8)
[2024-06-12 07:04] LABS: Albumin Level 3.8 g/dl (3.5-5.0); Chloride 95 mmol/L (98-107); Potassium 3.4 mmoL/L (3.5-5.1); Sodium 134 mmol/L (136-145)
[2024-06-12 07:07] LABS: Alanine Aminotransferase 19 U/L (12-78); Albumin/Globulin Ratio 1.7 (1.1-1.8); Alkaline Phosphatase 61 U/L (38-126); Anion Gap 9.4 mEq/L (5-15); Aspartate Amino Transferase 36 U/L (14-36); Blood Urea Nitrogen 31 mg/dl (7-17); Carbon Dioxide 33 mmol/L (22.0-30.0); Creatinine Clearance Estimated 30 mL/min (50-200); Estimated Glomerular Filt Rate 43 ml/min (>60); GFR (African American) 52 ML/MIN (>60); Globulin 2.3 g/dL (1.3-3.2); Glucose 94 mg/dl (74-100); Total Protein,Serum 6.1 g/dl (6.3-8.2)
--- NOTE | 2024-06-12 07:29 | EXP.DC.SUM ---
General Admission date:: 06/11/24 Discharge date: 06/12/24 HPI HPI HPI: Ms. Sanon is an 83-year-old female with history of diabetes, morbid obesity, gout, hypertension, progressive debility. She lives by herself. Is due to have her knee replaced in the coming months due to instability and its impact on her functionality. She fell at home [place] and has been having worsening pain in her bottom with difficulty getting out of a chair. Today she was unable to get out of chair by herself necessitating EMS to bring her to the ER for evaluation. On workup in the ER, patient found to have coccygeal fracture. Patient unable to stand or get out of bed. She lives by herself. Given her current state, she is not safe to discharge home and medicine was consulted for admission and further management. On evaluation, patient is stable on room air. Denies chest pain or shortness of breath. No nausea or vomiting. States the pain is just gotten worse since Wednesday. Normally gets around with a walker but is unable to rise from a chair. Has a lift chair but even with this was having a difficult time getting up. Extensive discussion on admission about goals of care and whether it safe for her to live by herself or not. Patient has been living by herself since her a few years ago. Has become more debilitated complicated by her severe osteoarthritis in her right knee and morbid obesity. Falls a few times a week, sometimes needs EMS or family/friends to come pick her up. Denies any loss of consciousness or trauma to her head. Alert and oriented x 4. Hospital Course Hospital Course Hospital Course: 83-year-old female who presents with fall at home. Sustained coccygeal injury. Unable to discharge safely from the ER home as she lives by herself and cannot ambulate or care for self at this time. Necessitating therapy eval for safe dispo planning. Discussed case with ER physician, request admission for therapy eval and case management/social work assistance. I agreed to admit for further care. Patient remained hemodynamically stable. Working with therapy. States she is more comfortable in a chair. Case management consulted and assisted with care. Will discharge home with home health. Has a wheelchair. Stable to discharge. Problems addressed as follows: Declining functional status Close coccygeal fracture Fall Morbid obesity - Per my review of CT, has a transverse fracture at the junction between sacrum and coccyx. Admitted for evaluation by therapy and further management with pain control. Unable to get up from bed or chair independently. Due to debility, PT and OT evaluated patient. Recommend home with home health. Able to get up with assistance. Recommend wheelchair to get around. Has a rollator at home. Tolerating pain with current opiate regimen. Injury not amenable to surgical intervention at this time. Has otherwise been stable. Will discharge home with further management as an outpatient with home health PT and OT Continue allopurinol 100 mg daily for gout COPD: Continue Advair discus daily, does not appear in exacerbation at this time Edema: Hypertension: -Denies history of CHF. Will continue spironolactone 25 mg daily. Treated with Bumex during admission. Resume torsemide regimen at discharge but increase dosage to 100 mg daily given peripheral edema. Will need labs to monitor kidney function and electrolyte at follow-up with PCP. Electrolytes normal with potassium 3.5, magnesium 2.0, BUN and creatinine 31 and 1.2 respectively. At her baseline. Diabetes: A1c well-controlled at 7.1. Glucose well-controlled during admission. Morning glucose 94. Continue home regimen with insulin glargine 40 units twice daily and NovoLog FlexPen 15 units 3 times a day with meals CKD: BUN 33, creatinine 1.3. Sees a radio repairer. Caution with nephrotoxins. Total time spent on discharge 32 minutes in counseling, documentation, chart review, and direct care with patient. Exam Data for Last 24 hours Vital signs and Labs for Last 24 Hours: Temp Pulse Resp BP Pulse Ox O2 Del Method O2 Flow Rate 98.0 F 70 17 135/72 91 L Room Air 2 06/12/24 04:00 06/12/24 04:00 06/12/24 04:00 06/12/24 04:00 06/12/24 04:00 06/12/24 06:10 06/11/24 20:43 Laboratory Results - last 24 hr 06/11/24 15:30: Sodium 135 L, Potassium 3.5, Chloride 92 L, Carbon Dioxide 36 H, Anion Gap 10.5, BUN 33 H, Creatinine 1.30 H, Estimated Creat Clear 27, Estimated GFR 39 L, Est GFR ( Amer) 47 L, Glucose 206 H, Hemoglobin A1c 7.1 H, Calcium 8.8, Total Bilirubin 1.0, AST 34, ALT 21, Alkaline Phosphatase 70, Total Protein 6.5, Albumin 4.1, Globulin 2.4, Albumin/Globulin Ratio 1.7 06/11/24 15:54: POC Glucose 201 H 06/11/24 19:50: POC Glucose 228 H 06/12/24 06:02: POC Glucose 91 06/12/24 06:11: WBC 7.9, RBC 5.42 H, Hgb 15.4, Hct 47.5 H, MCV 87.6, MCH 28.4, MCHC 32.4, RDW 13.4, Plt Count 244, MPV 9.0, Neut % (Auto) 63.2, Lymph % (Auto) 23.4, Sevier % (Auto) 9.3, Eos % (Auto) 3.3, Baso % (Auto) 0.5, Neut # (Auto) 5.0, Lymph # (Auto) 1.8, Sevier # (Auto) 0.7, Eos # (Auto) 0.3, Baso # (Auto) 0.0, Sodium 134 L, Potassium 3.4 L, Chloride 95 L, Carbon Dioxide 33 H, Anion Gap 9.4, BUN 31 H, Creatinine 1.20 H, Estimated Creat Clear 30, Estimated GFR 43 L, Est GFR ( Amer) 52 L, Glucose 94 D, Calcium 9.0, Magnesium 2.0, Total Bilirubin 1.0, AST 36, ALT 19, Alkaline Phosphatase 61, Total Protein 6.1 L, Albumin 3.8, Globulin 2.3, Albumin/Globulin Ratio 1.7 I & O for Last 24 hours: Intake & Output 06/09/24 06/10/24 06/11/24 06/12/24 23:59 23:59 23:59 23:59 Intake Total 390 / 390 Output Total 451 / 451 Balance 390 / 390 -451 / -451 Weight 114.362 kg 114.362 kg Constitutional Constitutional: no acute distress, morbidly obese, chronically ill appearing and cooperative *Routine HEENT Exam Head: Present normocephalic Eye: Present EOMI and PERRL ENT: Present mucous membranes moist *Routine Neck Exam Neck: Present supple; Absent lymphadenopathy *Routine Respiratory Exam Respiratory: Present CTA bilaterally and normal respiratory effort; Absent accessory muscle use, rhonchi, wheezes or crackles *Routine Cardiovascular Exam Cardiovascular: Present RRR *Routine Abdominal Exam Abdominal: Present soft and normoactive bowel sounds; Absent tenderness *Routine Rectal Exam Patient deferred: visual exam *Routine Exam Patient deferred: external exam *Routine Extremities Exam Extremities: Present edema (2+ to Bilateral knees); Absent cyanosis or clubbing *Routine Skin Exam Skin: Present intact and warm; Absent rash *Routine Neurological Exam Neurological: Present alert, oriented X3 and moving all extremities; Absent altered mental status Results Data Completed and Pending Labs on day of discharge: Labs from last 24 hours 06/12/24 06/12/24 06/11/24 06:11 06:02 19:50 WBC 7.9 RBC 5.42 H Hgb 15.4 Hct 47.5 H MCV 87.6 MCH 28.4 MCHC 32.4 RDW 13.4 Plt Count 244 MPV 9.0 Neut % (Auto) 63.2 Lymph % (Auto) 23.4 Sevier % (Auto) 9.3 Eos % (Auto) 3.3 Baso % (Auto) 0.5 Neut # (Auto) 5.0 Lymph # (Auto) 1.8 Sevier # (Auto) 0.7 Eos # (Auto) 0.3 Baso # (Auto) 0.0 Sodium 134 L Potassium 3.4 L Chloride 95 L Carbon Dioxide 33 H Anion Gap 9.4 BUN 31 H Creatinine 1.20 H Estimated Creat Clear 30 Estimated GFR 43 L Est GFR ( Amer) 52 L Glucose 94 D POC Glucose 91 228 H Hemoglobin A1c Calcium 9.0 Magnesium 2.0 Total Bilirubin 1.0 AST 36 ALT 19 Alkaline Phosphatase 61 Total Protein 6.1 L Albumin 3.8 Globulin 2.3 Albumin/Globulin Ratio 1.7 06/11/24 06/11/24 15:54 15:30 WBC RBC Hgb Hct MCV MCH MCHC RDW Plt Count MPV Neut % (Auto) Lymph % (Auto) Sevier % (Auto) Eos % (Auto) Baso % (Auto) Neut # (Auto) Lymph # (Auto) Sevier # (Auto) Eos # (Auto) Baso # (Auto) Sodium 135 L Potassium 3.5 Chloride 92 L Carbon Dioxide 36 H Anion Gap 10.5 BUN 33 H Creatinine 1.30 H Estimated Creat Clear 27 Estimated GFR 39 L Est GFR ( Amer) 47 L Glucose 206 H POC Glucose 201 H Hemoglobin A1c 7.1 H Calcium 8.8 Magnesium Total Bilirubin 1.0 AST 34 ALT 21 Alkaline Phosphatase 70 Total Protein 6.5 Albumin 4.1 Globulin 2.4 Albumin/Globulin Ratio 1.7 DS: Diagnosis Discharge Diagnosis (1) Declining functional status: Status: Acute Code(s): R53.81 - Other malaise (2) Fall: Status: Acute Code(s): W19.XXXA - Unspecified fall, initial encounter (3) Closed coccygeal fracture: Status: Acute Code(s): S32.2XXA - Fracture of coccyx, initial encounter for closed fracture (4) Hypertension: Status: Acute Code(s): I10 - Essential (primary) hypertension (5) Type 2 diabetes mellitus: Status: Chronic Code(s): E11.9 - Type 2 diabetes mellitus without complications Qualifiers: Diabetes mellitus complication status: with other specified complication Diabetes mellitus long chain quiller tender insulin use: unspecified long chain quiller tender insulin use status Qualified Code(s): E11.69 - Type 2 diabetes mellitus with other specified complication (6) MARCELA (obstructive sleep apnea): Status: Acute Code(s): G47.33 - Obstructive sleep apnea (adult) (pediatric) (7) COPD (chronic obstructive pulmonary disease): Status: Acute Code(s): J44.9 - Chronic obstructive pulmonary disease, unspecified (8) Morbid obesity with BMI of 40.0-44.9, adult: Status: Acute Code(s): E66.01 - Morbid (severe) obesity due to excess calories; Z68.41 - Body mass index [BMI] 40.0-44.9, adult Meds Home Medications and Allergies Home Medications ?Medication ?Instructions ?Recorded ?Confirmed ?Type allopurinol 100 mg tablet 100 mg PO DAILY 05/15/20 06/11/24 History cholecalciferol (vitamin D3) 50 1 tab PO DAILY 06/11/20 06/11/24 History mcg (2,000 unit) chewable tablet albuterol sulfate 90 mcg/actuation 4 inh inhalation Q4HP PRN 06/11/24 06/11/24 History aerosol inhaler shortness of breath or wheezing fluticasone 500 mcg-salmeterol 50 1 inh inhalation BIDRT 06/11/24 06/11/24 History mcg/dose blistr powdr for inhalation (Advair Diskus) insulin aspart U-100 100 unit/mL 15 unit SQ TID 06/11/24 06/11/24 History (3 mL) subcutaneous pen (Novolog FlexPen U-100 Insulin aspart) insulin glargine 100 unit/mL (3 40 unit SQ BID 06/11/24 06/11/24 History mL) subcutaneous pen (Lantus Solostar U-100 Insulin) ondansetron HCl 4 mg tablet 4 mg PO Q8HP PRN Nausea And 06/11/24 06/11/24 History Vomiting spironolactone 25 mg tablet 25 mg PO DAILY 06/11/24 06/11/24 History tramadol 50 mg tablet 50 mg PO TIDP PRN Severe Pain 06/11/24 06/11/24 History (Scale Score 7-10) hydrocodone 5 mg-acetaminophen 325 1 tab PO Q4HP PRN Mild To Moderate 06/12/24 Rx mg tablet Pain (1-6) 3 days #11 tabs torsemide 100 mg tablet 100 mg PO DAILY 30 days #30 tabs 06/12/24 Rx New Prescriptions to Start Prescriptions: hydrocamrit-Kevin Denis torsemide Kevin King Allergies Allergy/AdvReac Type Severity Reaction Status Date / Time codeine (CODEINE) Allergy Mild Verified 02/29/24 11:55 iodine (IODINE) Allergy Mild Verified 02/29/24 11:55 latex (LATEX) Allergy Mild Verified 02/29/24 11:55 oxycodone (OXYCODONE) Allergy Mild Verified 02/29/24 11:55 Sulfa (Sulfonamide Allergy Mild Verified 02/29/24 11:55 Antibiotics) (SULFA (SULFONAMIDE ANTIBIOTICS)) Cephalosporins Allergy Verified 02/29/24 11:55 doxycycline Allergy Verified 02/29/24 11:55 exenatide (From [place]) Allergy Verified 02/29/24 11:55 glyburide Allergy Verified 02/29/24 11:55 hyoscyamine (From Levbid) Allergy Verified 02/29/24 11:55 levofloxacin (From Levaquin) Allergy Verified 02/29/24 11:55 PCN Allergy Mild Uncoded 02/29/24 11:55 Discharge Plan Disposition Patient Disposition: Home Health Service Condition: Fair Discharge Order Discharge Orders: Discharge Order (Routine); Ordered 06/12/24 Ordered By: Kevin King Follow up Plan Follow up with: Norma Au APRN [Primary Care Provider] - 06/19/24 1:50 pm Prescriptions/Medication Reconciliation: New hydrocodone-acetaminophen 5-325 mg Tablet 1 tab PO Q4HP PRN (Reason: Mild To Moderate Pain (1-6)) 3 Days Qty: 11 0RF Continued allopurinol 100 mg tablet 100 mg PO DAILY Patient Comments: Take 1 tablet by mouth daily cholecalciferol (vitamin D3) 50 MCG tablet,chewable 1 tab PO DAILY insulin aspart U-100 [Novolog FlexPen U-100 Insulin] 100 unit/mL (3 mL) insulin pen 15 unit SQ TID Patient Comments: INJECT 15 UNITS UNDER THE SKIN THREE TIMES DAILY insulin glargine [Lantus Solostar U-100 Insulin] 100 unit/mL (3 mL) insulin pen 40 unit SQ BID Patient Comments: INJECT 40 UNITS UNDER SKIN TWO TIMES DAILY ondansetron HCl 4 mg tablet 4 mg PO Q8HP PRN (Reason: Nausea And Vomiting) Patient Comments: TAKE 1 TABLET BY MOUTH EVERY EIGHT (8) HOURS NEEDED tramadol 50 mg tablet 50 mg PO TIDP PRN (Reason: Severe Pain (Scale Score 7-10)) Patient Comments: TAKE 1 TABLET BY MOUTH THREE (3) TIMES DAILY spironolactone 25 mg tablet 25 mg PO DAILY Patient Comments: TAKE ONE (1) TABLET BY MOUTH DAILY fluticasone propion-salmeterol [Advair Diskus] 500-50 mcg/dose blister with device 1 inh inhalation BIDRT albuterol sulfate 90 mcg/actuation HFA aerosol inhaler 4 inh inhalation Q4HP PRN (Reason: shortness of breath or wheezing) Rx Instructions: 4 puffs every 4 hours for 48 hours then as needed for shortness of breath or wheezing following Changed torsemide 100 MG tablet 100 mg PO DAILY 30 Days Qty: 30 0RF Problem Reconciliation Problems Reviewed?: Yes Patient Discharge Instructions ACTIVITY: Continue current activity DIET: continue same diet Patient Instructions: DI for Chronic Obstructive Pulmonary Disease, DI for Coccyx Fracture, How to Prevent Falls Print Language: Arabic Providers Primary Care Provider: Norma Au Admit Provider: Kevin King Attending Provider: Kevin King
[2024-06-12 08:00] VITALS: BP 124/70; PULSE 78; RESP 20; TEMP 36.7; O2SAT 93
[2024-06-12 08:42] LABS: HIV Combo NEGATIVE (Negative)
[2024-06-12 08:51] LABS: Hepatitis C Ab Qual. W/ RFX NEGATIVE (Negative)
[2024-06-12] MEDS: INSULIN GLARGINE 100 UNITS/ML 3ML FLEXPEN 40 UNIT SUBCUT (09:33)
[2024-06-12] MEDS: ALLOPURINOL 100MG TABLET 100 MG PO (09:35)
[2024-06-12] MEDS: BUMETANIDE 1 MG TABLET PO (09:35)
[2024-06-12] MEDS: SPIRONOLACTONE 25MG TABLET 25 MG PO (09:35)
[2024-06-12 09:47] LABS: POC Glucose,Bedside 182 (70-110)
--- NOTE | 2024-06-12 09:57 | HMH.OTEV ---
OT Inpatient Evaluation Rehab OT IP Evaluation Start: 06/11/24 11:55 Freq: ONCE Status: Active Protocol: Document 06/12/24 09:51 LORINSHAISTA (Rec: 06/12/24 09:57 HEMAMELLISA [id number]) Rehab OT IP Assessment Subjective History 83-year-old female who presents with fall at home. Sustained coccygeal injury. Unable to discharge safely from the ER home as she lives by herself and cannot ambulate or care for self at this time . Necessitating therapy eval for safe dispo planning. Discussed case with ER physician, request admission for therapy eval and case management/social work assistance. I agreed to admit for further care. Hemodynamically stable at this time. Pleasant on exam. Problems addressed as follows: Declining functional status Close coccygeal fracture Fall - Per my review of CT, has a transverse fracture at the junction between sacrum and coccyx. -Unable to get up from bed or chair independently. Due to debility, will have therapy evaluate her in the morning. May necessitate placement. 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 States this does not impact her balance however given her frequent falls, it is definitely complicating factor in conjunction with her osteoarthritis in her right knee. -Hydrocodone 5 mg as needed every 6 hours for pain - No electrolyte disturbance. Will repeat CBC, CMP, magnesium ordered for the morning Subjective I have fallen a lot. Instructed Patient on proper hand and foot placement to complete STS transfer with usage of RW to maneuver within environment up to 40ft with RW with SBA. No LOB noted. Objective Right Upper Extremity Gross ROM WFL Left Upper Extremity Gross ROM WFL Transfer Training Sit/Stand Transfer Assist Level Supervision/Stand by Chair Transfer Ability Supervision/Stand by Chair Transfer Technique Sit to/from Ambulatory Chair Transfer Assistive Devices Rolling Walker Rehab OT IP prob,goals,plan Problems Date of Evaluation: 06/12/24 Rehab Potential Rehab Potential Innapropriate for Skilled Therapy Equipment Needs Assistive Devices Rolling / Wheeled Walker Discharge Plan OT Discharge Plan Patient appears to be at baseline. Recommend patient to return home after medical d/c . Eval Complexity Eval Charge Codes 80743 - Low Complexity PHYSICIAN CERTIFICATION: I certify the specified therapy services for Denisa L Sanon are required, authorized, and reviewed every 30 days.
--- NOTE | 2024-06-12 10:10 | SW/DCPLANNER ---
Addendum entered by Eula Logan 06/12/24 11:32: [facility] can accept this patient for services. Original Note: I spoke w/ this patient regarding plans once medically stable for discharge. PT/OT evaluated patient and recommended returning home w/ home health services. Patient is agreeable to home health and prefers to use [facility]. Patient information/order will be faxed to [facility] at time of discharge. Patient stated that she already has a rolling walker at home. Per MD patient will discharge home today.
--- NOTE | 2024-06-12 10:16 | HMH.PTEV ---
Physical Therapy Evaluation Rehab PT IP Evaluation Start: 06/11/24 11:58 Freq: ONCE Status: Active Protocol: Document 06/12/24 10:01 MATTHEW (Rec: 06/12/24 10:15 MATTHEW [id number]) Subjective/History History History 83-year-old female with history of diabetes, morbid obesity, gout, hypertension, progressive debility. She lives by herself. Is due to have her knee replaced in the coming months due to instability and its impact on her functionality. She fell at home [place] and has been having worsening pain in her bottom with difficulty getting out of a chair. She reports she lives alone, has a ramp to enter the home and uses a rolator walker for all ambulation at baseline. She admits to hx of multiple falls at home. She does report having a lift chair at home. Subjective Subjective Currently she reports expected pain in her coccyx region, but agrees to mobility assessment. Oxygen on via NC at all times during treatment this am. Rehab PT IP Eval Objective Appearance Patient Behavior Appropriate Patient Orientation Person,Place,Time Difficulty following instructions none Speech Pattern Clear Ambulation Patient Able to Ambulate Yes Ambulation Observation IP General Gait Pattern Observation No Deviations/Normal Ambulation Distance (feet) 30 Ambulation Assistive Device Rolling Walker Ambulation Ability Supervision/Stand by Balance Ability to Arise Able, uses arms to help Sitting Balance Steady, safe Standing Balance Steady, wide stance Dynamic Sitting Balance Ability Good Dynamic Standing Balance Ability Fair Transfers Chair Transfer Ability Supervision/Stand by Sit to Stand Bed Transfer Ability Supervision/Stand by Sit to Stand Chair Transfer Ability Supervision/Stand by Rehab PT IP prob,goals,plan Problems Date of Evaluation: 06/12/24 PT IP Problems Transfers,Gait Rehab Potential Rehab Potential Good Plan PT Intervention Plan Transfers,Gait,Safety, Therapeutic Exercise PT Plan Frequency Daily Duration LOS Discharge Goals Sit to Stand Chair Transfer Ability Independent Ambulation Assistive Device Rolling Walker Ambulation Distance (feet) 40 Discharge Plan PT Discharge Plan Pt currently appears to be appropriate to return home once medically stable for d/c. Recommend home health therapy after d/c. Skilled inpatient therapy is indicated to improve pt transfers and ambulation in order to return pt to [facility]. Eval Complexity Eval Charge Codes 34628 - High Complexity PHYSICIAN CERTIFICATION: I certify the specified therapy services for Denisa L Sanon are required, authorized, and reviewed every 30 days.
[2024-06-12] MEDS: humaLOG 100 UNITS/ML 10ML VIAL (SSI) SUBCUT (11:42)
[2024-06-12 11:59] LABS: POC Glucose,Bedside 159 (70-110)
--- NOTE | 2024-06-13 09:54 | SW/DCPLANNER ---
Spoke with patient on the phone. Patient stated that she fell last night and had to have ambulance come and help her get up. Patient stated that her legs and feet are swollen and she has been propping them up. Patient stated that she is aware of her upcoming appointment with her primary care provider. Patient stated that she was able to get her new medicine from clinic pharmacy. Patient stated that the staff was great. Patient stated that she has no concerns or questions at this time. Paola Estrella
== END 2024-06-12 15:46 | disposition home health service (06) ==
LOC: ER 11:43 → 2ND 11:54
PROVIDERS: Admitting Provider Internal Medicine Adolescent Medicine; Emergency Provider Emergency Medicine; PCP Nurse Practitioner Family; Visit Provider Internal Medicine Adolescent Medicine
DX: S32.2XXA Fracture of coccyx, initial encounter for closed fracture (principal); R53.81 Other malaise; I10 Essential (primary) hypertension; E11.69 Type 2 diabetes mellitus with other specified complication; G47.33 Obstructive sleep apnea (adult) (pediatric); J44.9 Chronic obstructive pulmonary disease, unspecified; E66.01 Morbid (severe) obesity due to excess calories; Z68.41 Body mass index [BMI] 40.0-44.9, adult; Z79.4 Long term (current) use of insulin; Z79.899 Other long term (current) drug therapy; R29.6 Repeated falls; I25.10 Atherosclerotic heart disease of native coronary artery without angina pectoris; Z60.2 Problems related to living alone; Z74.1 Need for assistance with personal care; N18.9 Chronic kidney disease, unspecified; W07.XXXA Fall from chair, initial encounter; Z91.81 History of falling; Y92.019 Unspecified place in single-family (private) house as the place of occurrence of the external cause
CPT/HCPCS: 36415; 70450; 72125; 72128; 72131; 72192; 80053; 82962; 83036; 83735; 85025; 86803; 87389; 94640; 97163; 97165; 99285; G0378

== ENCOUNTER 2024-10-03 23:38 | Observation (INO) | payer MEDICARE, SELFPAY ==
--- OUTSIDE RECORDS SUMMARY | 2024-08-09 11:00 | XMS_ITS | Encounter Summary ---
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 Name Role Phone Unavailable Primary Care Provider Unavailabl e Encounter Details Date Type Department Care Team (Latest Contact Info) Description 08/09/2024 11:00 AM EDT - 08/09/2024 11:59 PM EDT Hospital Encounter [facility] Preadmission Testing [address] [facility] [address] [place] [phone] Preop examination (Primary Dx); Chronic hypoxic respiratory failure (HCC); MARCELA (obstructive sleep apnea); Obesity, morbid, BMI 40.0-49.9 (HCC) Discharge Disposition: Home or Self Care Social History Tobacco Use Types Packs/Day Years Used Date Smoking Tobacco: Former Cigarettes Smokeless Tobacco: Never Tobacco Cessation:Counseling Given: Not Answered Comments:Patient was a 3 ppd smoker x 20 years. Stopped smoking in Alcohol Use Standard Drinks/Week Comments Never 0 (1 standard drink = 0.6 oz pur e alcohol) Comments Unknown Sex and Gender Information Value Date Recorded Sex Assigned at Not on file Legal Sex Female 11:15 AM CDT Gender Identity Not on file Sexual Orientation Not on file documented as of this encounter Last Filed Vital Signs Vital Sign Reading Time Taken Comments Blood Pressure 174/72 08/09/2024 11:36 AM EDT Pulse 68 08/09/2024 11:36 AM EDT Temperature 36.7 C (98 F) 08/09/2024 11:36 AM EDT Respiratory Rate 22 08/09/2024 11:3 6 AM EDT Oxygen Saturation 88% 08/09/2024 11: 36 AM EDT 88-90% on room air Inhaled Oxygen Concentration - - Weight 111.1 kg (245 lb) 08/09/2024 11: 36 AM EDT Height 160 cm (5' 3 ) 08/09/2024 11:36 AM EDT Body Mass Index 43.4 08/09/2024 11:36 AM EDT documented in this encounter Medications at Time of Discharge acetaminophen (TYLENOL) 325 MG tablet Take 2 tablets (650 mg total) by mouth every 6 (six) hours as needed. 08/25/2024 albuterol 2.5 mg /3 mL (0.083 %) nebulizer solution Inhale 3 mLs (2.5 mg total) by nebulization every 4 (four) hours as needed for wheezing or shortness of breath. albuterol 90 mcg/actuation inhaler Inhale 2 puffs by mouth every 6 (six) hours as needed for shortness of breath or wheezing. allopurinoL (ZYLOPRIM) 100 MG tablet Take 1 tablet (100 mg total) by mouth daily. cholecalciferol, vitamin D3, 2,000 unit tab Take 1 tablet (2,000 Units total) by mouth daily. insulin aspart U-100 (NovoLOG U-100 Insulin aspart) 100 unit/mL injection Inject 15 Units under the skin 3 (three) times daily before meals. Lantus Solostar U-100 Insulin 100 unit/mL (3 mL) inpn Inject 40 Units under the skin 2 (two) times daily. mupirocin (BACTROBAN) 2 % ointment 1 Application 3 (three) times daily. 08/08/2024 ondansetron (ZOFRAN) 4 MG tablet Take 1 tablet (4 mg total) by mouth every 8 (eight) hours as needed for nausea. OXYGEN-AIR DELIVERY SYSTEMS MISC 2 liter at night time. . spironolactone (ALDACTONE) 25 MG tablet Take 1 tablet (25 mg total) by mouth daily. torsemide (DEMADEX) 100 MG tablet Take 0.5 tablets (50 mg total) by mouth daily. traMADoL (ULTRAM) 50 mg tablet Take 1 tablet (50 mg total) by mouth every 6 (six) hours as needed for pain. insulin lispro (HUMALOG, ADMELOG) 100 unit/mL injection Inject 0-14 Units under the skin 4 (four) times daily before meals and nightly for 30 days 0 units for fingerstick blood glucose <140 mg/dL, 2u SQ for 140-180, 4u SQ for 181-220, 6u SQ for 221-260, 8u SQ for 261-300, 10u SQ for 301-350, 12u SQ for 351-400. 08/25/2024 5 miconazole (MICOTIN) 2 % powder Apply topically 2 (two) times daily for 10 days. 70 g 08/25/2024 5 documented as of this encounter H&P Notes * Kisha Francis PA-C - 08/09/2024 11:00 AM EDT History of Present Illness History Of Present Illness Denisa Sanon is a pleasant 84 y.o. female presenting for preoperative clearance for Procedure Laterality Anesthesia RIGHT TOTAL KNEE ARTHROPLASTY Right General w/Block in setting of severe DJD. This has been ongoing for years but is getting progressively worse. Pain described as severe. Patient has failed conservative/nonoperative therapy therapy including: meds, prior injections. They have fallen. They have required the use of an assistive device. It is now to the point that it is affecting activities their of daily living and overall quality of life. The patient was evaluated by Dr. Olmos and was offered above and agreed to the procedure. Past Medical History Pertinent Positives: She has a past medical history of Arthritis, Asthma, Blood transfusion withoutreported diagnosis, Cervical radiculopathy, Chronic renal insufficiency, COPD (chronic obstructive pulmonary disease) (HCC), Coronary artery disease, Diabetes mellitus (HCC), Dyspnea on exertion, Former smoker, Hyperlipidemia, Hypertension, Obesity, MARCELA on CPAP, Right knee pain, Skin cancer, and Wears glasses. Pertinent Negatives: History of VTE, PE, malignant hyperthermia, or complications associated with general anesthesia. Surgical History She has a past surgical history that includes Cardiac catheterization; Hysterectomy; Appendectomy; Tonsillectomy; Gallbladder surgery; and Procedure on Brain. Social History She reports that she has quit smoking. Her smoking use included cigarettes. She has never used smokeless tobacco. She reports that she does not drink alcohol and does not use drugs. Family History Pt cannot recall specifics about parents Denies family history of sudden cardiac arrest, CAD under age 50 in men, 55 in women. Denies familyhistory of coagulopathies. Allergies Penicillin, Byetta [Exenatide], Cephalosporins, Codeine, Doxycycline, Glyburide, Latex, Levaquin [Levofloxacin], Levbid [Hyoscyamine Sulfate], Oxycodone, Percodan [Oxycodone-Aspirin], and Sulfa (Sulfonamide Antibiotics) Medications Current Outpatient Medications Medication Instructions albuterol 90 mcg/actuation inhaler 2 puffs, inhalation, Every 6 hours PRN albuterol 2.5 mg, nebulization, Every 4 hours PRN allopurinoL (ZYLOPRIM) 100 mg, oral, Daily cholecalciferol (vitamin D3) 2,000 Units, oral, Daily insulin aspart U-100 (NOVOLOG U-100 INSULIN ASPART) 15 Units, subcutaneous, 3 times daily before meals Lantus Solostar U-100 Insulin 40 Units, subcutaneous, 2 times daily mupirocin (BACTROBAN) 2 % ointment 3 times daily ondansetron (ZOFRAN) 4 mg, oral, Every 8 hours PRN OXYGEN-AIR DELIVERY SYSTEMS MISC 2 liter at night time. spironolactone (ALDACTONE) 25 mg, oral, Daily torsemide (DEMADEX) 100 MG tablet 0.5 tablets, oral, Daily Review of Systems Endorses right knee pain Denies chest pain, palpitations, or SOB. METS >4. Denies headaches, dizziness, and falls. Denies cough, Denies fever. Denies NVD. Denies easy bleeding or bruising. Denies recent illnesses. Denies sick contacts. Comprehensive ROS is otherwise negative. Vitals Blood pressure (!) 174/72, pulse 68, temperature 98 ??F (36.7 ??C), temperature source Temporal Artery, resp. rate 22, height 1.6 m (5' 3 ), weight 111.1 kg (245 lb), SpO2 (!) 88%. Physical Exam Physical Exam Constitutional: She is oriented to person, place, and time. She is positive for obesity. Frail Sitting in wheelchair No distress HENT: Head: Normocephalic. Nose: Nose normal. Mouth/Throat: Mucous membranes are moist. Eyes: Conjunctivae are normal. Cardiovascular: Normal rate and regular rhythm. Pulmonary/Chest: Effort normal and breath sounds normal. Abdominal: Normal appearance. Musculoskeletal: Comments: Did not test ROM due to wheelchair Neurological: She is alert and oriented to person, place, and time. 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 Nursing note and vitals reviewed. Laboratory and Diagnostics Diagnostic Results CT lower extremity without IV contrast right Narrative: CT SCAN RIGHT LOWER EXTREMITY 07/10/2024 1:18 PM HISTORY: Knee osteoarthritis. Conformis protocol, preoperative. COMPARISON: None. PROCEDURE: Axial images were obtained through the lower extremity by computed tomography. Sagittal and coronal reconstruction images were performed . This study was performed with techniques to keep radiation doses as low as reasonably achievable, (ALARA). Individualized dose reduction techniques using automated exposure control or adjustment of mA and/or kV according to the patient size were employed. FINDINGS: There is no fracture. There is advanced medial compartment narrowing with subchondral sclerosis and osteophyte formation. There is a small joint effusion. There is degenerative subchondral cyst formation in the lateral tibial plateau. This measures 6 mm. Multiple degenerative cysts are identified along the undersurface of the patella. These measure 4 mm. Impression: Degenerative joint disease. Images reviewed, interpreted, and dictated by Dr. Antwon Yun. Transcribed by Yesenia Cano PA-C. Echo 02/2024: Aortic root 3.4, EF 55-60, mild concentric hypertrophy of the left ventricle, evidence of impaired relaxation and diastolic dysfunction of the left ventricle, mild mitral insufficiency, mild calcification and thickening of the aortic valve leaflets with normal aortic valve leaflet mobility and function, no aortic insufficiency Results for orders placed or performed during the hospital encounter of 08/09/24 MRSA Screen Specimen: Nares; Nasal Result Value Ref Range MRSA by PCR [facility] MRSA Not Detected by PCR MRSA Not Detected by PCR aPTT Result Value Ref Range aPTT 25.9 22.0 - 32.0 seconds CBC with automated diff Result Value Ref Range WBC 9.4 3.9 - 10.0 K/??L RBC 5.35 (H) 3.93 - 5.22 M/??L Hemoglobin 15.5 11.2 - 15.7 GM/DL Hematocrit 46.7 (H) 34.1 - 44.9 % MCV 87 79 - 95 fL MCH 29.0 25.6 - 32.2 pg MCHC 33.2 32.2 - 36.5 GM/DL RDW 14.5 (H) 11.6 - 14.4 % Platelets 255 163 - 369 K/CU MM MPV 9.3 (L) 9.4 - 12.4 fL % Neutros 80 (H) 34 - 71 % % Lymphs 11 (L) 19 - 53 % % Monos 8 4 - 13 % % Eos 1 1 - 7 % % Baso 0 0 - 1 % # Neutros 7.46 (H) 1.56 - 6.13 K/??L # Lymphs 0.99 (L) 1.18 - 3.74 K/??L # Monos 0.73 0.24 - 0.82 K/??L # Eos 0.12 0.04 - 0.54 K/??L # Baso 0.03 0.01 - 0.08 K/??L Immature Granulocytes-Relative 0.30 0.00 - 0.60 % # IG 0.03 0.00 - 0.05 K/uL Comprehensive metabolic panel Result Value Ref Range Sodium 139 136 - 146 meq/L Potassium 3.9 3.5 - 5.1 meq/L Chloride 100 (L) 102 - 112 meq/L CO2 33 (H) 21 - 32 meq/L Calcium 9.5 8.5 - 10.1 mg/dL Glucose 137 (H) 74 - 106 mg/dL BUN 35 (H) 7 - 22 mg/dL Creatinine 1.52 (H) 0.55 - 1.02 mg/dL BUN/Creatinine 23 (H) 8 - 20 Albumin 3.7 3.4 - 5.0 g/dL Alkaline Phosphatase 82 27 - 136 U/L ALT 20 12 - 78 U/L AST 22 5 - 37 U/L Total Bilirubin 0.6 0.2 - 1.3 mg/dL Protein, Total 6.8 6.4 - 8.2 gm/dL Anion Gap 10 9 - 20 A/G Ratio 1.2 1.1 - 2.5 Globulin 3.1 1.5 - 4.5 g/dL Osmolality Calc 287.7 mOsm/kg eGFR (mL/min/1.73m2) 33 (L) >=60 mL/min/1.73m2 Fructosamine(SENDOUT) Result Value Ref Range Fructosamine 319 (H) 205 - 285 umol/L Hemoglobin A1c Result Value Ref Range Hemoglobin A1C 7.7 (H) 4.2 - 6.3 % eAVG Glucose 174.29 mg/dL Nicotine & Mets, S/P, Quant(SENDOUT) Result Value Ref Range Cotinine, S/P, Quant <5 ng/mL Nicotine, S/P, Quant <5 ng/mL Prealbumin Result Value Ref Range Prealbumin 21 20 - 40 mg/dL Prothrombin time/INR Result Value Ref Range Protime 11.3 9.0 - 12.0 seconds INR 1.04 0.80 - 1.10 Vitamin D, 25-Hydroxy Result Value Ref Range Vitamin D 25-Hydroxy 49.52 30.0 - 100.0 ng/mL ECG 12 lead Result Value Ref Range VENTRICULAR RATE EKG/MIN 65 BPM ATRIAL RATE (MCT) 65 BPM WA Interval 160 ms QRS-INTERVAL (MSEC) 154 ms QT Interval 438 ms QTC Interval 455 ms R AXIS (MCT) -32 degrees T Wave [place] 121 degrees Clifford Diagnosis Sinus rhythm with premature atrial complexes Left axis deviation Left bundle branch block Abnormal ECG Confirmed by John KABA SUZANNE ([id number]) on 08/09/2024 1:06:07 PM Assessment and Plan Assessment & Plan Active Problems: Asthma Chronic hypoxic respiratory failure (HCC) CKD (chronic kidney disease) COPD (chronic obstructive pulmonary disease) (HCC) CAD (coronary artery disease) DM (diabetes mellitus) (HCC) Hyperlipemia HTN (hypertension) MARCELA (obstructive sleep apnea) Obesity, morbid, BMI 40.0-49.9 (HCC) Preop evaluation: Denisa Sanon underwent preoperative laboratory workup and diagnostic studies as above. This Provider utilized the following risk calculators: RCRI score 2. Pt is HIGH risk for intermediate risk surgery. EKG as interpreted by this provider as nsr, lbbb. Severe DJD: Right knee pain: Patient offered surgical intervention as above. Instructed to discontinue NSAIDs 10 days preoperatively, and transition to APAP/narcotics, if prescribed. MARCELA, bring mask day of procedure BMI 43.4, increases risk Chronic hypoxic resp failure Asthma/COPD overlap -refused ER. States she always lives at 88-90% and her pulmonary physician is aware. She denies anysx associated and understands risks. Encouraged her to FU. -Per firmware architect, Dr. Earl: Our mutual patient listed above was last seen by me in the pulmonary clinic 02/29/2024. To best my knowledge as patient is not having any absolute contraindications to undergo the above-mentioned surgery from a pulmonary standpoint. Based on my clinical assessment on this most recent visit date above this patient has high risk for postoperative pulmonary complications given her uncontrolled asthma, COPD overlap syndrome with frequent exacerbations, further depending on the duration type and nature of surgery. I recommend discussing risk benefits before proceeding and recommend following with risk assessment from other physicians as this patient is following for other comorbidities. -PFTs from 03/12, moderate obstructive lung disease. Full PFT in chart. -bring inhalers day of procedure Chronic LBBB--was discussed and note from 11/16/2023 with cardiology Dilated aortic root, 3.4 - Per records had mild coronary artery disease on left and right heart cath 07/28/2019 -clear, low risk per Dr. Capellan. ?chronic diastolic failure -requested echo -hold spironolactone day of procedure -hold demadex day of procedure CKD -check bmp Gout -continue allopurinol DM -hold insulin per anesthesia guidelines, RN reviewed w patient and friend -A1c 7.7,elevated fructosamine: notified surgeon, continue Chronic pain on chronic tramadol. Information for anesthesia team. I informed pt and her family, Patricia of the high risk nature given her chronic lung disease. She voiced understanding and wants to proceed as her knee is causing her quality of life to suffer. Proceed with surgery as scheduled on 08/[address] Olmos Electronically signed by: Kisha Francis PA-C, 08/09/2024 Attending: Dr Troy Sumner Cosigned by David Sumner MD at 08/15/2024 2:58 PM EDT documented in this encounter Procedure Notes * Danielle Paredes RN - 08/09/2024 11:00 AM EDT * albuterol 90 mcg/actuation inhaler Notes to patient: May use the morning of surgery if needed. Bring inhaler to hospital the day of surgery. * albuterol 2.5 mg /3 mL (0.083 %) nebulizer solution Notes to patient: May use as needed allopurinoL 100 MG tablet Commonly known as: ZYLOPRIM Medication Adjustments for Surgery: Continue until night before surgery Lantus Solostar U-100 Insulin 100 unit/mL (3 mL) Inpn Generic drug: insulin glargine Notes to patient: Take 50% dose the night before surgery. Take 20 unit the evening dose the night before surgery. Do not take the morning of surgey mupirocin 2 % ointment Commonly known as: BACTROBAN Notes to patient: Put small amount on qtip and apply in each nostril 3 times per day and start 5 days before surgery. Start on 08/18/2024 NovoLOG U-100 Insulin aspart 100 unit/mL injection Generic drug: insulin aspart U-100 Medication Adjustments for Surgery: Continue until night before surgery Notes to patient: Hold the day of surgery. ondansetron 4 MG tablet Commonly known as: ZOFRAN Medication Adjustments for Surgery: Continue until night before surgery [facility]GEN[facility] Notes to patient: Continue as needed spironolactone 25 MG tablet Commonly known as: ALDACTONE Medication Adjustments for Surgery: Continue until night before surgery torsemide 100 MG tablet Commonly known as: DEMADEX Medication Adjustments for Surgery: Continue until night before surgery cholecalciferol (vitamin D3) 2,000 unit Tab Medication Adjustments for Surgery: Continue until night before surgery PRE-OPERATIVE BATHING INSTRUCTIONS Put clean sheets on your bed the night before surgery. Wear clean pajamas the night before surgery. Follow the Chelita-hex instructions given during your PAT visit. Please stop the following over the counter medication 10 days prior to surgery. Nonsteroidal Anti-Inflammatory Drugs (NSAIDs) Examples: Motrin, Advil, Ibuprofen, Naproxen, Aleve All non-essential vitamins and supplements especially garlic, vitamin E, multivitamin, fish oil If you have questions about specific medication not mentioned please ask or call your surgeon. You may take Tylenol for pain unless allergic or contraindicated by your surgeon. documented in this encounter Miscellaneous Notes * Plan of Care - Cristina Da Silva RN - 08/09/2024 11:00 AM EDT Pre_Admit Note: 84 y/o Female scheduled for a Right Total Knee per Dr. Olmos on 08/09/24. Met and spoke with the patient to discuss discharge needs and to verify demographics and confirmed patient identify as well asdemographics, contact information, pharmacy, and emergency service advocate contact and PCP. Patient states family will be transporting them from the hospital at discharge. STATUS: Patient lives With family and is iADLS. PLAN: Rehab and patient [facility] or [facility] . Pre-Referral sent out and Jessi notified. DME: Patient has front rolling walker, shower chair , oxygen, Rolator, and toilet raiser at home. CM: case resource manager will continue to follow from surgery to discharge. TRANS: family will transport patient home Signed by:Cristina Da Silva RN * Plan of Care - Cristina Da Silva RN - 08/09/2024 11:00 AM EDT Modified Risk Assessment and Predication Tool (RAPT) for therapy plan. Please Fill out the form andbring it with you to the [facility]. Thank you! What is your age group?older than 75 years = 0 Gender : Female =1 How far on average can you walk? Household distance =0 (A block is about 200 yards) Which Gait aid do you use? Crutches/walker =0 (More often than not) How often do you use outside help or None or one per week =1 rely on family members to assist with activities of daily living? (Home health, [id number], Sitter or ebd teacher service) Will someone stay with you after surgery? (If not, please Yes =3 Notify a friend or family member that you will be needing Help for approximately 3 to 5 days after your total joint Replacement.) Total:5 Signed by: Cristina Da Silva RN * Plan of Care - Cristina Da Silva RN - 08/09/2024 11:00 AM EDT Orthopedic Nurse Navigator Assessment Attended [facility]:yes [facility] Type:In person [facility] Date:08/09/24 Joint Electroencephalographic Technician Attended [facility]:yes Joint Electroencephalographic Technician Name: Patricia (family) Type of Surgery: Right Total Knee Does Patient have a Walker?:yes Anticipated Discharge Plan: to rehab Patient completed RAPT Score:5 Teaching/Learning Assessment Barriers to Learning: na Individuals Taught: Patient and Other: family Baseline Knowledge of Topic:Good Readiness to Learn:Cooperative Learning Style Preferences Patient:Printed Materials and Verbal Explanation Education Topics Educated on Assistive Devices:yes Cell Saver:Verbalizes understanding DVT Prophylaxis:Verbalizes understanding Family Instructions:Verbalizes understanding Herbs/supplement Instructions:Verbalizes understanding Knee Precautions:Verbalizes understanding Lab Studies:Verbalizes understanding Medication Instructions:Verbalizes understanding NPO:Verbalizes understanding Ed-Occupational Therapy:Verbalizes understanding Pain Management:Verbalizes understanding Physical Prep:Verbalizes understanding Physical Therapy:Verbalizes understanding Plan of Care:Verbalizes understanding Positioning:Verbalizes understanding Post-op Activity/Exercise Regimen:Verbalizes understanding Postoperative Home Needs:Verbalizes understanding Post-op Orthopedic Equipment:Verbalizes understanding Procedure Information:Verbalizes understanding Respiratory Care:Verbalizes understanding Surgical Site:Verbalizes understanding Tubes/Drains/IV's:Verbalizes understanding Turn/Cough/Deep Breathe:Verbalizes understanding Weight Bearing:Verbalizes understanding Ed-Orthopedic Pre-Op, Other:Verbalizes understanding Education Topics,Orthopedic Devices, Ortho devices Education, Activity Restrictions:Verbalizes understanding Ambulatory Devices:Verbalizes understanding Elevate Extremity:Verbalizes understanding Hygiene:Verbalizes understanding Ice Application:Verbalizes understanding Immobilizer:Verbalizes understanding Isometric Exercises : Verbalizes understanding Mobility : Verbalizes understanding Pain Management :Verbalizes understanding Positioning : Verbalizes understanding Purpose : Verbalizes understanding Reportable Symptoms : Verbalizes understanding Rest : Verbalizes understanding ROM Exercise : Verbalizes understandingVerbalizes understanding Safety :Verbalizes understanding Self Care : Verbalizes understanding Skin Care : Verbalizes understanding Weight Bearing : Verbalizes understanding Signed by: Cristina Da Silva RN documented in this encounter Plan of Treatment Not on file documented as of this encounter Procedures Procedure Name Priority Date/Time Associated Diagnosis Comments CBC W/ AUTO DIFF Routine 08/09/2024 11:2 0 AM EDT Preop examination NICOTINE & METS, S/P, QUANT(SENDOUT) Routine 08/09/2024 11:20 AM EDT Preop examination FRUCTOSAMINE(SENDOUT) Routine 08/09/2024 11:20 AM EDT Preop examination VITAMIN D, 25-HYDROXY Routine 08/09/2024 11:20 AM EDT Preop examination APTT Routine 08/09/2024 11:20 AM EDT Preop examination PROTHROMBIN TIME/INR Routine 08/09/2024 11:20 AM EDT Preop examination MRSA SCREEN Routine 08/09/2024 11:20 AM EDT Preop examination PREALBUMIN Routine 08/09/2024 11:20 AM EDT Preop examination HEMOGLOBIN A1C Routine 08/09/2024 11:20 AM EDT Preop examination COMPREHENSIVE METABOLIC PANEL Routine 08/09/2024 11:20 AM EDT Preop examination FS_MODEL_IP_ECG 12-LEAD Routine 08/09/2024 10:54 AM EDT Preop examination documented in this encounter Results * Vitamin D, 25-Hydroxy (08/09/2024 11:20 AM EDT) Pathologist [facility] Vitamin D 25-Hydroxy 49.52 30.0 - 100.0 ng/mL 08/09/2024 12:46 PM EDT [facility] Blood Venipuncture / Unknown 08/09/2024 11:20 AM EDT 08/09/2024 12:09 PM EDT Kiran Olmos MD LAB BLOOD ORDERABLES Final Resul t Performing Organization Address [facility] Co de Phone Number [facility] [address] [phone] * Prothrombin time/INR (08/09/2024 11:20 AM EDT) [facility] Protime 11.3 9.0 - 12.0 seconds 08/09/2024 12:28 PM EDT [facility] INR 1.04 0.80 - 1.10 08/09/2024 12:28 PM EDT [facility] Comment: Recommended therapeutic ranges using International Normalized Ratio (INR) are: INR RANGE 2.0 - 3.0 Routine oral anticoagulant therapy 2.5 - 3.5 Oral anticoagulant therapy for patients with thromboembolic events on standard doses of Coumadin and those with mechanical heart valves. Blood Venipuncture / Unknown 08/09/2024 11:20 AM EDT 08/09/2024 12:09 PM EDT Kiran Olmos MD LAB BLOOD ORDERABLES Final Resul t Performing Organization Address [facility] Co de Phone Number [facility] [address] [phone] * Prealbumin (08/09/2024 11:20 AM EDT) [facility] Prealbumin 21 20 - 40 mg/dL 08/09/2024 12:46 PM EDT [facility] Blood Venipuncture / Unknown 08/09/2024 11:20 AM EDT 08/09/2024 12:09 PM EDT Kiran Olmos MD LAB BLOOD ORDERABLES Final Resul t [facility] [address] [phone] * Nicotine & Mets, S/P, Quant(SENDOUT) (08/09/2024 11:20 AM EDT) [facility] Cotinine, S/P, Quant <5 ng/mL 08/15/2024 8:52 AM EDT [facility] Nicotine, S/P, Quant <5 ng/mL 08/15/2024 8:52 AM EDT [facility] Comment: INTERPRETIVE INFORMATION: Nicotine and Metabolites, Serum or Plasma, Quantitative Methodology: Quantitative Liquid Chromatography-Tandem Mass Spectrometry Positive cutoff: 5 ng/mL For medical purposes only; not valid for forensic use. This test is designed to evaluate recent use of nicotine-containing products. Passive and active exposure cannot be discriminated definitively, although a cutoff of 10 ng/mL cotinine is frequently used for surgery qualification purposes. For smoking cessation programs or compliance testing, the absence of expected drug(s) and/or drug metabolite(s) may indicate non-compliance, inappropriate timing of specimen collection relative to drug administration, poor drug absorption, or limitations of testing. This test cannot distinguish between use of tobacco and purified nicotine products. The concentration value must be greater than or equal to the cutoff to be reported as positive. This test was developed and its performance characteristics determined by [facility]. It has not been cleared or approved by the [place] Food and Drug Administration. This test was performed in a CLIA certified laboratory and is intended for clinical purposes. Performed By: [facility] [address] [place] [address] Transplant Case Manager: Yony Gordillo MD, PhD CLIA Number: [id number] Blood Venipuncture / Unknown 08/09/2024 11:20 AM EDT 08/09/2024 12:09 PM EDT Kiran Olmos MD LAB BLOOD ORDERABLES Final Resul t Performing Organization Address City/[facility]/ZIP Co de Phone Number [facility] [address] [place] [address] * MRSA Screen (08/09/2024 11:20 AM EDT) MRSA by PCR [facility] MRSA Not Detected by PCR MRSA Not Detected by PCR DEVICE ID9 08/09/2024 4:18 PM EDT [facility] Nasal BOTH ANTERIOR NARES / Unknown 08/09/2024 11:20 AM EDT 08/09/2024 12:09 PM EDT Kiran Olmos MD MICROBIOLOGY - GENERAL ORDERABLE S Final Result [facility] [address] [place] [address], [facility] [phone] * (ABNORMAL) Hemoglobin A1c (08/09/2024 11:20 AM EDT) Hemoglobin A1C 7.7(H) 4.2 - 6.3 % 08/09/2024 12:43 PM EDT [facility] Comment: Hemoglobin A1C levels are related to mean glucose during the preceding 2-3 months. Less than 7% demonstrates glycemic control in diabetic patients. Hemoglobin AlC % Suggested Diagnosis > or = 6.5 Diabetic 5.7 - 6.4 Prediabetic <5.7 Non-diabetic eAVG Glucose 174.29 mg/dL 08/09/2024 12:43 PM EDT [facility] Blood Venipuncture / Unknown 08/09/2024 11:20 AM EDT 08/09/2024 12:09 PM EDT us Kiran Olmos MD LAB BLOOD ORDERABLES Final Resul t [facility] [address] [place] [address], [facility] [phone] * (ABNORMAL) Fructosamine(SENDOUT) (08/09/2024 11:20 AM EDT) Fructosamine 319(H) 205 - 285 umol/L 08/12/2024 3:35 PM EDT [facility] Comment: INTERPRETIVE INFORMATION: Fructosamine Variations in levels of serum proteins (albumin and immunoglobulins) may affect fructosamine results. Performed By: [facility] [address] [place] [address] Transplant Case Manager: Yony Gordillo MD, PhD CLIA Number: [id number] Blood Venipuncture / Unknown 08/09/2024 11:20 AM EDT 08/09/2024 12:09 PM EDT us Kiran Olmos MD LAB BLOOD ORDERABLES Final Resul t [facility] [address] [place] [address], [facility] [phone] * (ABNORMAL) Comprehensive metabolic panel (08/09/2024 11:20 AM EDT) Sodium 139 136 - 146 meq/L 08/09/2024 12:46 PM EDT [facility] Potassium 3.9 3.5 - 5.1 meq/L 08/09/2024 12:46 PM EDT [facility] Chloride 100(L) 102 - 112 meq/L 08/09/2024 12:46 PM EDT [facility] CO2 33(H) 21 - 32 meq/L 08/09/2024 12:46 PM EDT [facility] Calcium 9.5 8.5 - 10.1 mg/dL 08/09/2024 12:46 PM EDT [facility] Glucose 137(H) 74 - 106 mg/dL 08/09/2024 12:46 PM EDT [facility] BUN 35(H) 7 - 22 mg/dL 08/09/2024 12:46 PM EDT [facility] Creatinine 1.52(H) 0.55 - 1.02 mg/dL 08/09/2024 12:46 PM EDT [facility] BUN/Creatinine 23(H) 8 - 20 08/09/2024 12:46 PM EDT [facility] Albumin 3.7 3.4 - 5.0 g/dL 08/09/2024 12:46 PM EDT [facility] Alkaline Phosphatase 82 27 - 136 U/L 08/09/2024 12:46 PM EDT [facility] ALT 20 12 - 78 U/L 08/09/2024 12:46 PM EDT [facility] AST 22 5 - 37 U/L 08/09/2024 12:46 PM EDT [facility] Total Bilirubin 0.6 0.2 - 1.3 mg/dL 08/09/2024 12:46 PM EDT [facility] Protein, Total 6.8 6.4 - 8.2 gm/dL 08/09/2024 12:46 PM EDT [facility] Anion Gap 10 9 - 20 08/09/2024 12:46 PM EDT [facility] A/G Ratio 1.2 1.1 - 2.5 08/09/2024 12:46 PM EDT [facility] Globulin 3.1 1.5 - 4.5 g/dL 08/09/2024 12:46 PM EDT [facility] Osmolality Calc 287.7 mOsm/kg 12:46 PM T [facility] eGFR (mL/min/1.73m2) 33(L) >=60 mL/min/1.7 3m2 08/09/2024 12:46 PM EDT [facility] Comment:ESTIMATED GFR IS NOT ACCURATE CREATININE CLEARANCE IN PREDICTING GLOMERULAR FILTRATION RATE. ESTIMATED GFR IS NOT APPLICABLE FOR DIALYSIS PATIENTS. Blood Venipuncture / Unknown 08/09/2024 11:20 AM EDT 08/09/2024 12:09 PM EDT us Kiran Olmos MD LAB BLOOD ORDERABLES Final Resul t [facility] [address] [facility] [phone] * (ABNORMAL) CBC with automated diff (08/09/2024 11:20 AM EDT) WBC 9.4 3.9 - 10.0 K/ L 08/09/2024 12:18 PM EDT [facility] RBC 5.35(H) 3.93 - 5.22 M/ L 08/09/2024 12:18 PM EDT [facility] Hemoglobin 15.5 11.2 - 15.7 GM/DL 08/09/2024 12:18 PM EDT [facility] Hematocrit 46.7(H) 34.1 - 44.9 % 08/09/2024 12:18 PM EDT [facility] MCV 87 79 - 95 fL 08/09/2024 12:18 PM EDT [facility] MCH 29.0 25.6 - 32.2 pg 08/09/2024 12:18 PM EDT [facility] MCHC 33.2 32.2 - 36.5 GM/DL 08/09/2024 12:18 PM EDT [facility] RDW 14.5(H) 11.6 - 14.4 % 08/09/2024 12:18 PM EDT [facility] Platelets 255 163 - 369 K/CU MM 08/09/2024 12:18 PM EDT [facility] MPV 9.3(L) 9.4 - 12.4 fL 08/09/2024 12:18 PM EDT [facility] % Neutros 80(H) 34 - 71 % 08/09/2024 12:18 PM EDT [facility] % Lymphs 11(L) 19 - 53 % 08/09/2024 12:18 PM EDT [facility] % Monos 8 4 - 13 % 08/09/2024 12:18 PM EDT [facility] % Eos 1 1 - 7 % 08/09/2024 12:18 PM EDT [facility] % Baso 0 0 - 1 % 08/09/2024 12:18 PM EDT [facility] # Neutros 7.46(H) 1.56 - 6.13 K/ L 08/09/2024 12:18 PM EDT [facility] # Lymphs 0.99(L) 1.18 - 3.74 K/ L 08/09/2024 12:18 PM EDT [facility] # Monos 0.73 0.24 - 0.82 K/ L 08/09/2024 12:18 PM EDT [facility] # Eos 0.12 0.04 - 0.54 K/ L 08/09/2024 12:18 PM EDT [facility] # Baso 0.03 0.01 - 0.08 K/ L 08/09/2024 12:18 PM EDT [facility] Immature Granulocytes-Re lative 0.30 0.00 - 0.60 % 08/09/2024 12:18 PM EDT [facility] # IG 0.03 0.00 - 0.05 K/uL 08/09/2024 12:18 PM EDT [facility] Blood Venipuncture / Unknown 08/09/2024 11:20 AM EDT 08/09/2024 12:09 PM EDT Narrative [facility] - 08/09/2024 12:18 PM EDT When CBC w/ Auto Diff is ordered the lab will add a Manual Differential as a quality check at no additional charge if: Lymphocytes greater than seventy five percent with normal or increased WBC Monocytes greater than Fifteen percent Basophil greater than four percent Bands >10% or several immature myeloids are seen on scan Blast? Flag noted Atypical Lymph flag noted us Kiran Olmos MD LAB BLOOD ORDERABLES Final Resul t Performing Organization Address City/[facility]/ZIP Co de Phone Number [facility] [address] [phone] * aPTT (08/09/2024 11:20 AM EDT) aPTT 25.9 22.0 - 32.0 seconds 08/09/2024 12:28 PM EDT [facility] Blood Venipuncture / Unknown 08/09/2024 11:20 AM EDT 08/09/2024 12:09 PM EDT us Kiran Olmos MD LAB BLOOD ORDERABLES Final Resul t Performing Organization Address City/[facility]/ZIP Co de Phone Number [facility] [address] [phone] * ECG 12 lead (08/09/2024 10:54 AM EDT) VENTRICULAR RATE EKG/MIN 65 BPM GE MUSE ATRIAL RATE (MCT) 65 BPM GE MUSE WA Interval 160 ms GE MUSE QRS-INTERVAL (MSEC) 154 ms GE MUSE QT Interval 438 ms GE MUSE QTC Interval 455 ms GE MUSE R AXIS (MCT) -32 degrees GE MUSE T Wave [place] 121 degrees GE MUSE Clifford Diagnosis Sinus rhythm with premature atrial complexes Left axis deviation Left bundle branch block Abnormal ECG Confirmed by John KABA SUZANNE ([id number]) on 08/09/2024 1:06:07 PM GE MUSE 08/09/2024 10:5 4 AM EDT 08/09/2024 1:06 PM EDT us Kiran Olmos MD ECG ORDERABLES Final Result GE MUSE documented in this encounter Visit Diagnoses Diagnosis Preop examination- Primary Unspecified pre-operative examination Chronic hypoxic respiratory failure (HCC) MARCELA (obstructive sleep apnea) Obstructive sleep apnea (adult) (pediatric) Obesity, morbid, BMI 40.0-49.9 (HCC) Asthma Unspecified asthma Chronic hypoxic respiratory failure (HCC) CKD (chronic kidney disease) Chronic kidney disease, unspecified COPD (chronic obstructive pulmonary disease) ([facility]) Chronic airway obstruction, not elsewhere classified CAD (coronary artery disease) Coronary atherosclerosis of unspecified type of vessel, [place] or graft DM (diabetes mellitus) ([facility]) Type II or unspecified type diabetes mellitus without mention of complication, not stated as uncontrolled Hyperlipemia Other and unspecified hyperlipidemia HTN (hypertension) Unspecified essential hypertension MARCELA (obstructive sleep apnea) Obstructive sleep apnea (adult) (pediatric) Obesity, morbid, BMI 40.0-49.9 (HCC) documented in this encounter
--- OUTSIDE RECORDS SUMMARY | 2024-08-23 06:11 | XMS_ITS | Encounter Summary ---
Author Organization [facility] [facility] Address [address] [place] [address] Care Team Providers Care Processing Analyst Name Role Phone Story, Norma Reynolds AGA Primary Care Provider [phone] Reason for Visit * Auth/Cert (Routine) Specialty Diagnoses / Procedures Referred By Contac t Referred To Contact Diagnoses Unilateral primary osteoarthritis, right knee M17.11 Procedures OK ARTHRP KNE CONDYLE&PLATU MEDIAL&LAT COMPARTMENTS ARTHROPLASTY, KNEE, UNILATERAL Kiran Olmos MD [address] [id number] Phone: tel: fax: Referral ID Status Reason Start Date Expiration Date Visits Re quested Visits Authorized [id number] 07/21/2024 1 1 Encounter Details Date Type Department Care Team (Late st Contact Info) Description 08/23/2024 6:11 AM EDT - 08/26/2024 11:00 AM EDT Hospital Encounter [facility] [address] [place] [address] Kiran Olmos MD [address] [place] [address] Discharge Disposition: Jail Facility Social History Tobacco Use Types Packs/Day Years Used Date Smoking Tobacco: Former Cigarettes Smokeless Tobacco: Never Comments:Patient was a 3 ppd smoker x 20 years. Stopped smoking in Alcohol Use Standard Drinks/Week Comments Never 0 (1 standard drink = 0.6 oz pur e alcohol) Utilities Answer Date Recorded In the past 12 months, has t he electric, gas, oil, or water company threatened to shut off services in your home? No 08/23/2024 Interpersonal Safety Answer Date Record ed How often does anyone, oseas hanna family and friends, physically hurt you? Never 08/23/2024 How often does anyone, oseas hanna family and friends, insult or talk down to you? Never 08/23/2024 How often does anyone, oseas hanna family and friends, threaten you with harm? Never 08/23/2024 How often does anyone, oseas hanna family and friends, scream or curse at you? Never 08/23/2024 Housing Stability Answer Date Recorded What is your living situation today? I have a [facility] [address] to live 08/23/[address] you li ve. Do you have problems with any of the following? None of the above 08/23/2024 Food Insecurity Answer Date Recorded Within the past 12 months, y ou worried that your food would run out before you got money to buy more. Never true 08/23/2024 Within the past 12 months, t he food you bought just didn't last and you didn't have money to get more. Never true 08/23/2024 Transportation Needs Answer Date Record ed In the past 12 months, has l ack of reliable transportation kept you from medical appointments, meetings, work or from getting things needed for daily living? No 08/23/2024 Financial Resource Strain Answer Date R ecorded How hard is it for you to pa y for the very basics like food, housing, medical care, and heating? Would you say it is: Not hard at all 08/23/2024 Employment Answer Date Recorded Do you want help finding or keeping work or a job? I do not need or want help 08/23/2024 Family and Community Support Answer Theo e Recorded If for any reason you need h elp with day-to-day activities such as bathing, preparing meals, shopping, managing finances, etc., do you get the help you need? I don't need any help 08/23/2024 Feeling Lonely or Isolated 0 08/23 Educational Attainment Answer Date Jesse rded Do you speak a language other than [place] at [facility]? No 08/23/2024 Do you want help with school or training? For example, starting or completing job training or getting a high school diploma, GED or equivalent. No 08/23/2024 Physical Activity Answer Date Recorded Number of minutes of exercise per week 0 08/23/2024 Alcohol Use Answer Date Recorded 5 or More Drinks Per Day Past 12 Months 0 08/23/2024 Depression Answer Date Recorded Calculation of above two rows 0 Stress Answer Date Recorded Stress means a situation in which a person feels tense, restless, nervous, or anxious, or is unable to sleep at night because his or her mind is troubled all the time. Do you feel this kind of stress these days? A little bit 08/23/2024 Disabilities Answer Date Recorded Because of a physical, menta l, or emotional condition, do you have serious difficulty concentrating, remembering, or making decisions? (5 years or older) No 08/23/2024 Because of a physical, menta l, or emotional condition, do you have difficulty doing errands alone such as visiting a doctor's office or shopping? (15 years or older) Yes 08/23/2024 Substance Use Answer Date Recorded How many times in the past y ear have you used prescription drugs for non-medical reasons? Never 08/23/2024 How many times in the past year have you used [place] legal drugs? Never 08/23/2024 Comments No Sex and Gender Information Value Date Recorded Sex Assigned at Not on file Legal Sex Female 11:15 AM CDT Gender Identity Not on file Sexual Orientation Not on file documented as of this encounter Last Filed Vital Signs Vital Sign Reading Time Taken Comments Blood Pressure 140/54 08/26/2024 11:00 AM EDT Pulse 76 08/26/2024 11:00 AM EDT Temperature 37.4 C (99.3 F) 08/26/2024 11:00 AM EDT Respiratory Rate 20 08/26/2024 8:25 AM EDT Oxygen Saturation 96% 08/26/2024 11: 00 AM EDT Inhaled Oxygen Concentration 2% 08/26/2024 8 :25 AM EDT Weight 110.6 kg (243 lb 12.6 oz) 08/23/2024 2:38 PM EDT Height 160 cm (5' 2.99 ) 08/23/2024 2:38 PM EDT Body Mass Index 43.2 08/23/2024 2:38 PM EDT documented in this encounter Discharge Summaries * Kiran Olmos MD - 08/26/2024 7:23 AM EDT Images from the original note were not included. Patient Name: Denisa Sanon : 1940 Date of Admission: 08/23/2024 Date of Discharge: 08/26/2024 Primary Care Physician: Norma Au APRN Consultations: Discharge Diagnoses: Osteoarthritis, knee Reason for Admission: Rehabilitation post right total knee replacement patient with advanced age and medical comorbidities with poor mobility and inadequate home support for proper rehabilitation and increased fall risk management. Post operative pain Hospital Course: Patient was admitted postop after right total knee replacement with Dr. Olmos 08/23/2024. The patient was recommended inpatient rehab given her assessment by PT/OT. Her pain medication was optimized. Chronic medications were continued as able. She is to take aspirin 81 mg twice daily for total of 45 days postoperatively for prophylaxis. The patient does have chronic kidney disease and creatinine was increased from baseline postoperatively. Initial home medications were held. She was started on metoprolol for better blood pressure control and given her chronic diastolic heart failure. Resumed Aldactone and Torsemide once renal function returned to baseline. Her insulin regimen has been adjusted from her home dosing. The patient is morbidly obese. She was found to have candidal intertrigo beneath abdominal fold. Continue miconazole powder and application of skin barrier dressing to prevent friction and keep the area dry. The patient is hemodynamically stable and ready for next level of care. She will be discharging to [facility] rehab. Studies Performed: Procedures Performed: Right total knee replacement August 23, 2024 Discharge Medications: Your medication list START taking these medications Instructions Comments Quantity Refills acetaminophen 325 MG tablet Commonly known as: TYLENOL Take 2 tablets (650 mg total) by mouth every 6 (six) hours as needed. 0 insulin lispro 100 unit/mL injection Commonly known as: HUMALOG, ADMELOG Inject 0-14 Units under the skin 4 (four) times daily before meals and nightly for 30 days 0 units for fingerstick blood glucose <140 mg/dL, 2u SQ for 140-180, 4u SQ for 181-220, 6u SQ for 221-260, 8u SQ for 261-300, 10u SQ for 301-350, 12u SQ for 351-400. 0 miconazole 2 % powder Commonly known as: MICOTIN Apply topically 2 (two) times daily for 10 days. 70 g 0 CONTINUE taking these medications Instructions Comments Quantity Refills * albuterol 90 mcg/actuation inhaler Inhale 2 puffs by mouth every 6 (six) hours as needed for shortness of breath or wheezing. 0 * albuterol 2.5 mg /3 mL (0.083 %) nebulizer solution Inhale 3 mLs (2.5 mg total) by nebulization every 4 (four) hours as needed for wheezing or shortness of breath. 0 allopurinoL 100 MG tablet Commonly known as: ZYLOPRIM Take 1 tablet (100 mg total) by mouth daily. 0 cholecalciferol (vitamin D3) 2,000 unit Tab Take 1 tablet (2,000 Units total) by mouth daily. 0 mupirocin 2 % ointment Commonly known as: BACTROBAN 1 Application 3 (three) times daily. 0 ondansetron 4 MG tablet Commonly known as: ZOFRAN Take 1 tablet (4 mg total) by mouth every 8 (eight) hours as needed for nausea. 0 OXYGEN-AIR DELIVERY SYSTEMS MISC 2 liter at night time. . 0 traMADoL 50 mg tablet Commonly known as: ULTRAM Take 1 tablet (50 mg total) by mouth every 6 (six) hours as needed for pain. 0 * This list has 2 medication(s) that are the same as other medications prescribed for you. Read thedirections carefully, and ask your doctor or other care provider to review them with you. ASK your doctor about these medications Instructions Comments Quantity Refills Lantus Solostar U-100 Insulin 100 unit/mL (3 mL) Inpn Generic drug: insulin glargine Inject 40 Units under the skin 2 (two) times daily. 0 NovoLOG U-100 Insulin aspart 100 unit/mL injection Generic drug: insulin aspart U-100 Inject 15 Units under the skin 3 (three) times daily before meals. 0 spironolactone 25 MG tablet Commonly known as: ALDACTONE Take 1 tablet (25 mg total) by mouth daily. 0 torsemide 100 MG tablet Commonly known as: DEMADEX Take 0.5 tablets (50 mg total) by mouth daily. 0 Where to Get Your Medications These medications [place], [place] - [address] [address] [address] [address], [facility] [address] miconazole 2 % powder Information about where to get these medications is not yet available Ask your nurse or doctor about these medications acetaminophen 325 MG tablet insulin lispro 100 unit/mL injection Physical Exam Right knee incision dressing is clean and dry patient has neurovascular exam grossly intact mild tomoderate swelling is noted Discharge Instructions Discharge Diet: diabetic diet Discharge Activity: Weightbearing as tolerated and range of motion full as tolerated Discharge Follow UP: Follow-up appointment Dr. Olmos [facility] in 10 to 14 day Time Spent: Electronically signed by Kiran Olmos MD, 08/26/24, 7:23 AM EDT documented in this encounter Discharge Instructions * Discharge Instructions* Rachna Zayas RN - 08/23/2024 10:33 AM EDT [facility] K[facility] What to expect after the Procedure: After the procedure, it is common to have: Pain and swelling. A small amount of blood or clear fluid coming from your incision for up to 7 days. It is normal to have a moderate amount of bleeding from the site of the drain that was pulled on the morning after surgery. You can hold pressure on the area for 3-5 minutes and cover with a bandage as needed. Diet: Resume usual diet No alcoholic beverages while taking pain medication Drink 8-10 glasses of water a day to prevent constipation from pain medication Increase fiber to help prevent constipation. Straining can cause increased pressure and pain in your incision area Increase protein to promote healing Driving: Do not drive until your health care provider approves. Ask your health care provider when it is safe to drive if you have an immobilizer on your knee. Do not drive or operate heavy machinery while taking prescription pain medicine. Do not drive for 24 hours if you received a sedative. Activity: Do not lift anything that is heavier than 10 lb (4.5 kg) until your health care provider approves. No strenuous activity Avoid high-impact activities, including running, jumping rope, and jumping jacks. Avoid sitting for a long time without moving. Get up and move around at least every few hours. Keep legs elevated while seated and place surgery leg on 2-3 pillows, this will decrease swelling Continue doing blue foam and byrd basin ???tub time?? 3 times a day for 30 minutes at a time. Moreoften is better. Continue using walker until cleared by physical therapy Bathing: Do not take baths, swim, or use a hot tub for one month after surgery. May shower on the third day after surgery by covering the incision with Glad Brand Press and Seal saran wrap. After showering, dry off completely BEFORE removing saran wrap. Use Press and Seal saran wrap to shower for one month after surgery You must be seated to shower until you are no longer using the walker Other: Keep wounds dry Remove DEONNA wrap post op day 2 Use ice therapy for 20-30 minutes at a time and leave off for 20-30 minutes at a time. Always keep a towel or cloth between the ice pack and your skin Continue to use Incentive Spirometer 10 times an hour while awake for one month to help prevent pneumonia Remove Dana Wound Vac after 7 days. ASA 81mg twice a day for 30 days. Contact a health care provider if: You have more redness, swelling, or pain around your incision. You have more fluid or blood coming from your incision. Your incision or drain site feels warm to the touch. You have pus or a bad smell coming from your incision. You have a fever. Your incision breaks open after your health care provider removes your sutures, skin glue, or adhesive tape. Your prosthesis feels loose. You have knee pain that does not go away Get help right away if you have: Pain or swelling in your calf or thigh shortness of breath or difficulty breathing chest pain DVT: Blood Clot Blood clots are a common risk after an orthopedic surgery Symptoms: Swelling of your leg or arm, especially if one side is much worse. Warmth and redness of your leg or arm, especially if one side is much worse. Pain in your arm or leg. If the clot is in your leg, symptoms may be more noticeable or worse when you stand or walk. A feeling of pins and needles, if the clot is in the arm. The symptoms of a DVT that has traveled to the lungs (pulmonary embolism, PE) usually start suddenly and include: Shortness of breath while active or at rest. Coughing or coughing up blood or blood-tinged mucus. Chest pain that is often worse with deep breaths. Rapid or irregular heartbeat. Feeling light-headed or dizzy. Fainting. Feeling anxious. Sweating. There may also be pain and swelling in a leg if that is where the blood clot started. How is this prevented? Exercise regularly. For at least 30 minutes every day, engage in: ? Activity that involves moving your arms and legs. ? Activity that encourages good blood flow through your body by increasing your heart rate. Exercise your arms and legs every hour during long-distance travel (over 4 hours). Drink plenty of water and avoid drinking alcohol while traveling. Avoid sitting or lying in bed for long periods of time without moving your legs. Maintain a weight that is appropriate for your height. Ask your healthcare provider what weight is healthy for you. If you are a woman who is over 35 years of age, avoid unnecessary use of medicines that contain estrogen. These include control pills. Do not smoke, especially if you take estrogen medicines. If you need help quitting, ask your healthcare provider. Wear compression stockings (if told by your healthcare provider) to help prevent blood clots from forming. High Fiber/High Protein Diet High fiber foods: To prevent constipation Grains Whole-grain breads. Multigrain cereal. Oats and oatmeal. Brown rice. Barley. Bulgur wheat. Millet. Bran muffins. Popcorn. [place]quite wafer crackers. Vegetables Sweet potatoes. Spinach. Kale. Artichokes. Cabbage. Broccoli. Green peas. Carrots. Squash. Fruits Berries. Pears. Apples. Oranges. Avocados. Prunes and raisins. Dried figs. Meats and Other Protein Sources Call[place]han, kidney, armando, and soybeans. Split peas. Lentils. Nuts and seeds. Dairy Fiber-fortified yogurt. Beverages Fiber-fortified soy milk. Fiber-fortified orange juice. Other Fiber bars. High-protein foods: To promote healing High-protein foods contain 4 grams (4 g) or more of protein per serving. They include: Beef, ground sirloin (cooked) -- 3 oz have 24 g of protein. Cheese (hard) -- 1 oz has 7 g of protein. Chicken breast, boneless and skinless (cooked) -- 3 oz have 13.4 g of protein. Cottage cheese -- 1/2 cup has 13.4 g of protein. Egg -- 1 egg has 6 g of protein. Fish, filet (cooked) -- 1 oz has 6-7 g of protein. Garbanzo beans (canned or cooked) -- 1/2 cup has 6-7 g of protein. Kidney beans (canned or cooked) -- 1/2 cup has 6-7 g of protein. Jj (cooked) -- 3 oz has 24 g of protein. Milk -- 1 cup (8 oz) has 8 g of protein. Nuts (peanuts, pistachios, almonds) -- 1 oz has 6 g of protein. Peanut butter -- 1 oz has 7-8 g of protein. Pork tenderloin (cooked) -- 3 oz has 18.4 g of protein. Pumpkin seeds -- 1 oz has 8.5 g of protein. Soybeans (roasted) -- 1 oz has 8 g of protein. Soybeans (cooked) -- 1/2 cup has 11 g of protein. Soy milk -- 1 cup (8 oz) has 5-10 g of protein. Soy or vegetable nitesh -- 1 nitesh has 11 g of protein. Dickenson seeds -- 1 oz has 5.5 g of protein. Tofu (firm) -- 1/2 cup has 20 g of protein. Tuna (canned in water) -- 3 oz has 20 g of protein. Yogurt -- 6 oz has 8 g of protein. Fall Prevention Use night lights. Install grab bars by the toilet and in the tub and shower. Do not use towel bars as grab bars. Use non-skid mats or decals on the floor of the tub or shower. If you need to sit down while you are in the shower, use a plastic, non-slip stool. Keep the floor dry. Immediately clean up any water that spills on the floor. Remove soap buildup in the tub or shower on a regular basis. Remove throw rugs and other tripping hazards from the floor. Place frequently used items in [id number] places Keep electrical cables out of the way. Do not leave any items on the stairs. Make sure that there are handrails on both sides of the stairs. Fix handrails that are broken or loose. Make sure that handrails are as long as the stairways. Check any carpeting to make sure that it is firmly attached to the stairs. Fix any carpet that is loose or worn. Avoid throwing rugs at the top or bottom of stairways, or secure the rugs with carpet tape to prevent them from moving. Wear closed-toe shoes that fit well and support your feet. Wear shoes that have rubber soles or lowheels. Use mobility aids as needed, such as canes, walkers, scooters, and crutches. Turn on lights if it is dark. Replace any light bulbs that burn out. Set up furniture so that there are clear paths. Keep the furniture in the same spot. Be aware of any and all pets. Review your medicines with your healthcare provider. Some medicines can cause dizziness or changes in blood pressure, which increase your risk of falling. Hand Washing You should wash your hands whenever you think they are dirty. You should also wash your hands: After: ? Working or playing outside. ? Touching an animal or its toys or leash. ? Handling livestock. ? Using the bathroom. ? Using household overlock waistline joiner or toxic chemicals. ? Touching or taking out the garbage. ? Touching anything dirty around your home. ? Handling soiled clothes or rags. ? Taking care of a sick child. This includes touching used tissues, toys, and clothes. ? Sneezing, coughing, or blowing your nose. ? Using public transportation. ? Shaking hands. ? Using a phone, including your mobile phone. ? Touching money. Before and after: ? Preparing food. ? Feeding a baby or young child. ? Eating. ? Visiting or taking care of someone who is sick. ? Changing a diaper. ? Changing a bandage (dressing) or taking care of an injury or wound. ? Giving or taking medicine. If soap and clean water are not available, use an alcohol-based wipe, spray, or hand gel. Use a hand-sanitizing agent that contains at least 60% alcohol. If you are preparing food, hand sanitizers are not recommended as a substitute for hand washing. Walker Use To Walk With a Front-Wheeled Walker: 1. Slide your front-wheeled walker one step-length in front of you. Your toes should be further forward than the back legs of your walker. 2. Hold on to the walker for support, and step your weaker (surgery) leg into the middle of the walker. 3. Step your stronger leg forward to land next to your weaker leg. 4. Repeat the process for each step. Always keep both feet within the width of the walker's legs or wheels. When using your walker, you should not feel like you need to lean forward or to the side to keep your hands on the hand manager spanish. Make sure you are following any weight-bearing instructions that your health care provider has given you. Be careful not to let the walker get too far ahead of you as you walk. If your walker does not glide well over carpet, consider cutting an X into two tennis balls and placing the balls over the back legs of your walker. To Use a Walker to Step Up: 1. Put all four legs of the walker on the curb or step. 2. Get your feet as close to the curb or step as you can. 3. Test the steadiness of the walker by pressing down on the hand manager spanish. 4. If the walker is steady, press down on it with your hands as you step up with your stronger leg. 5. Step up with your weaker leg. To Use a Walker to Step Down: 1. Put all four legs of the walker on the surface that is lower than the curb or step. 2. Get your feet as close to the curb or step as you can. 3. Test the steadiness of the walker by pressing down on the hand manager spanish. 4. If the walker is steady, press down on it with your hands as you step down with your weaker leg. 5. Step down with your stronger leg. Knee Immobilizer Brace: Adjust the brace as often as needed while wearing it. It should be firm but not tight. Signs that the brace is too tight include: ? Puffiness (swelling). ? Numbness. ? Color change in your foot or ankle. ? Increased pain. DANA DRESSING TEACHING 1. What is a Dana dressing? a. DANA negative pressure wound dressings are designed to allow an even distribution of negative pressure on the surface of a closed surgical incision. The system is also designed to be portable. 2. How long does a Dana dressing stay on? a. The DANA 7 dressing (with AIRLOCK? Technology) has a wear time of up to 7 days depending on exudate (drainage) levels. 3. Is Dana dressing a vac dressing? a. DANA is a canister-free, single-use negative pressure wound therapy system consisting of a single-use sterile pump and two multi-layered adhesive dressings. 4. Can you shower with Dana dressing? a. The PICOTM Dressing is water resistant. Light showering is permissible; however, the pump should be disconnected (see Precautions) and placed in a safe location where it will not get wet. The dressing should not be exposed to a direct spray or submerged in water. 5. Why does dana dressing buzz? a. If the green light is flashing, the machine is OK. A constant buzzing may mean: The machine has lost a seal. The battery is . The dressing is saturated (full) and needs to be changed. b. Air leaks. If a high air leak has been detected, an orange leak indicator will flash. You will hear the pump make a buzzing sound as it tries to get to the right vacuum. Smooth down around the outside of your dressing including the strips with your hands to remove any creases. 6. Why is my Dana dressing blinking green and orangeThe GREEN OK and ORANGE? battery indicators are flashing; this means there is 24 hours or less of battery life remaining. Tochange the batteries: Press/hold the ORANGE Power button to stop the therapy. Remove battery cover (back of the machine) and batteries. 7. The DANA pumps contain a MAGNET. Keep the DANA pumps at least 4 inches (10 cm) away from other medical devices at all times. As with all electrical medical equipment, failure to maintain appropriate distance may disrupt the operation of nearby medical devices. For full product and safety information, please see the Instructions for Use. documented in this encounter Medications at Time [...] for 301-350, 12u SQ for 351-400. 08/25/2024 miconazole (MICOTIN) 2 % powder Apply topically 2 (two) times daily for 10 days. 70 g 08/25/2024 documented as of this encounter Progress Notes * Roz Judge RN - 08/26/2024 11:44 AM EDT Pt discharged per physician order to transport to rehab [facility] [place]. Report was called to facility. IV was removed without issue. Pt was transported via caliber. * Uvaldo Hadley RN - 08/26/2024 8:07 AM EDT Care Coordination Final Discharge Plan Final Discharge Plan PCP referral provided? (P) No Patient Appealing Discharge: (P) No Does the patient have ability to fill and recive their discharge medications? (P) Yes Patient returning to prior living situation: (P) No Support Systems: (P) Family members Discharge Disposition: (P) SNF Transporation Provider: (P) Jacqueline Date of field superintendent: (P) 08/26/24 Time of field superintendent: (P) 1100 Weekend CM faxed DC summary to facility at [phone] and number for report sent to nursing at [phone]. Caliber nut picker today at 11am. CM to sign off. Please call for any needs. Uvaldo Hadley RN * Luly Finnegan PA-C - 08/25/2024 5:23 PM EDT Hospitalist Progress Note Date of Service: 08/25/2024 PCP: Norma Au APRN Chief Complaint: knee pain Subjective Denisa Sanon is a 84 y.o. female on hospital day 2. The principal reason for today's followup visit is Osteoarthritis, knee. Interval History: - Patient seen and evaluated this morning. Working on rehab placement. Pain has been well-controlled. Review of Systems Constitutional: Negative for chills and fever. Eyes: Negative for blurred vision. Respiratory: Negative for cough and shortness of breath. Cardiovascular: Negative for chest pain and palpitations. Gastrointestinal: Negative for abdominal pain, diarrhea, nausea and vomiting. Genitourinary: Negative for dysuria and hematuria. Musculoskeletal: Positive for joint pain and myalgias. Neurological: Negative for dizziness and focal weakness. Objective Vitals: Temp: [97.3 ??F (36.3 ??C)-97.9 ??F (36.6 ??C)] 97.9 ??F (36.6 ??C) Pulse: [55-88] 72 Resp: [18] 18 BP: (132-175)/(51-85) 132/85 FiO2 (%): [28 %] 28 % Intake/Output: Intake/Output Summary (Last 24 hours) at 08/25/2024 1723 Last data filed at 08/25/2024 0500 Gross per 24 hour Intake 1200 ml Output 2950 ml Net -1750 ml Physical Exam Vitals and nursing note reviewed. Constitutional: General: She is not in acute distress. Appearance: Normal appearance. HENT: Head: Normocephalic and atraumatic. Cardiovascular: Rate and Rhythm: Normal rate and regular rhythm. Pulses: Normal pulses. Heart sounds: Normal heart sounds. Pulmonary: Effort: Pulmonary effort is normal. No respiratory distress. Breath sounds: Normal breath sounds. No wheezing or rales. Comments: 2L NC Abdominal: General: Abdomen is flat. There is no distension. Palpations: Abdomen is soft. Tenderness: There is no abdominal tenderness. Musculoskeletal: General: Tenderness (R knee post op) present. Skin: General: Skin is warm and dry. Capillary Refill: Capillary refill takes less than 2 seconds. Neurological: General: No focal deficit present. Mental Status: She is alert and oriented to person, place, and time. Mental status is at baseline. Motor: No weakness. Psychiatric: Mood and Affect: Mood normal. Behavior: Behavior normal. Thought Content: Thought content normal. Labs: Recent Labs Lab(s) Units 08/25/24 1640 08/25/24 1125 08/25/24 0500 08/25/24 0436 08/24/24 0548 08/24/24 0526 WBC K/??L -- -- -- 11.7* -- 13.3* HGB GM/DL -- -- -- 17.6* -- 15.7 HCT % -- -- -- 54.0* -- 47.8* PLT K/CU MM -- -- -- 119* -- 277 NA meq/L -- -- -- 133* -- 134* K meq/L -- -- -- 4.3 -- 4.3 CL meq/L -- -- -- 97* -- 97* CO2 meq/L -- -- -- 32 -- 32 BUN mg/dL -- -- -- 40* -- 41* CREATININE mg/dL -- -- -- 1.52* -- 1.63* EGFR mL/min/1.73m2 -- -- -- 33* -- 31* GLUCOSE mg/dL 224* 231* 193* 182* < > 230* CALCIUM mg/dL -- -- -- 9.2 -- 9.5 < > = values in this interval not displayed. Scheduled Meds: allopurinoL 100 mg oral Daily 100 mg at 08/25/24917 aspirin 81 mg oral BID 81 mg at 08/25/24917 insulin glargine 12 Units subcutaneous BID 12 Units at 08/25/24 1000 insulin lispro 0-14 Units subcutaneous 4x Daily AC 6 Units at 08/25/24 1134 metoprolol succinate 25 mg oral Daily 25 mg at 08/25/24917 miconazole topical BID Given at 08/25/24919 Continuous Infusions: Current Facility-Administered Medications Medication Dose Route Frequency Provider Last Rate Last Admin acetaminophen (TYLENOL) tablet 650 mg 650 mg oral Q6H PRN Kiran Olmos MD 650 mg at 08/24/24 0858 allopurinoL (ZYLOPRIM) tablet 100 mg 100 mg oral Daily Luly Finnegan PA-C 100 mg at 08/25/24917 aspirin chewable tablet 81 mg 81 mg oral BID Kiran Olmos MD 81 mg at 08/25/24917 dextrose 50% (D50W) injection 25 g 25 g intravenous Q15 Min PRN Luly Finnegan PA-C glucagon injection 1 mg 1 mg intraMUSCULAR Q15 Min PRN Luly Finnegan PA-C glucose chew tab 16 g 16 g oral Q15 Min PRN Luly Finnegan PA-C hydrALAZINE (APRESOLINE) injection 10 mg 10 mg intravenous Q4H PRN Luly Finnegan PA-C insulin glargine (LANTUS) injection 12 Units 12 Units subcutaneous BID Luly Finnegan PA-C 12 Units at 08/25/24 1000 insulin lispro (HUMALOG, ADMELOG) injection 0-14 Units 0-14 Units subcutaneous 4x Daily AC Luly Finnegan PA-C 6 Units at 08/25/24 1134 ipratropium-albuteroL (DUO-NEB) 0.5 mg-3 mg(2.5 mg base)/3 mL nebulizer solution 3 mL 3 mL nebulization Q6H PRN Luly Finnegan PA-C [id number] 100 mg oral Daily PRN Kiran Olmos MD metoprolol succinate (TOPROL-XL) 24 hr tablet 25 mg 25 mg oral Daily Luly Finnegan PA-C 25 mg at 08/25/24 0918 miconazole (MICOTIN) 2 % powder topical BID Luly Finnegan PA-C Given at 08/25/24 0920 morphine injection 1 mg 1 mg intravenous Q2H PRN Kiran Olmos MD 1 mg at 08/25/24 1222 ondansetron (ZOFRAN-ODT) disintegrating tablet 4 mg 4 mg oral Q8H PRN Kiran Olmos MD Or ondansetron (ZOFRAN) injection 4 mg 4 mg intravenous Q8H PRN Kiran Olmos MD traMADoL (ULTRAM) tablet 50 mg 50 mg oral Q4H PRN Kiran Olmos MD 50 mg at 08/25/24 1134 Assessment and Plan Right knee osteoarthritis -POD 3 right total knee replacement with Dr. Olmos 08/23/2024. PLAN -Orthopaedic surgery following. -Activity per surgery recommendations. -GI/VTE prophylaxis per surgery. -Adequate pain control with parenteral analgesics per Dr. Olmos. -As needed antiemetic with parenteral Zofran 4 mg every 8hrs for nausea. Chronic hypoxic respiratory failure Uncontrolled asthma / COPD with frequent exacerbations -On 2L NC at baseline. Titrate based on oxygen saturation. -Using home inhalers. -Duonebs as needed. Chronic diastolic heart failure Hypertension -No echo to review, report per PAT testing. -Continue metoprolol XL 25 mg once daily in interim. Will add home Aldactone 25 mg daily since renal function appears to be at baseline. Will continue holding Demadex for now. CAD Chronic LBBB -S/p [facility] 07/2019 with mild CAD. -Follow up with order entry technician per recommendations. CKD -sCr 1.52 at pre admit testing. -sCr improved 1.63 > 1.52 which appears to be her baseline. Will resume Aldactone but possibly transition off diuretic. -BMP in am. Type II diabetes mellitus Last A1c 08/09/2024 7.7%. -Home Lantus 40u BID + Lispro 15u AC. -Increase Lantus 14u BID + SSI Q6h. Titrate as indicated. MARCELA -Continue home CPAP pm. Morbid obesity -BMI 43.19. Complicates all aspects of care. Gout -Resume Allopurinol in am. Chronic pain -On home Tramadol. Pain regimen per ortho as above. Candidal intertrigo -Erythematous rash to abdominal skin folds. Denies pruritus or pain. - Continue miconazole powder and application of skin barrier dressing to prevent friction and keep the area dry. Diet: Orders Placed This Encounter Procedures Consistent Carbohydrate Additional Modifiers: Chopped Meats, Easy to Chew DVT ppx: ASA BID per ortho #GI Ppx (if indicated): Not indicated #Code Status: Full Code #Medical decision maker: Self Discharge Planning: Barriers to discharge: Pending medical improvement, rehab placement. Expected (tentative) discharge tomorrow. Expected discharge disposition (home, SNF/Rehab, etc): [facility] Additional discharge needs or delays: Transport scheduled tomorrow at 11 AM. Luly Finnegan PA-C 08/25/2024 at 6:10 PM Hospitalist [place], [employer] Attending: Dr. Rogers Voice aircraft engine specialist technology (Help/Systems) is used for dictation of this note and sound-alike words might be erroneously placed despite reviewing the note for accuracy. Errors in dictation mayreflect use of voice recognition software and not all errors in aircraft engine specialist may have been detected prior to signing. Cosigned by Chay Rogers MD at 08/25/2024 5:41 PM EDT * Uvaldo Hadley RN - 08/25/2024 2:03 PM EDT Discharge Plan Progress Note MDR attended w/team this morning. Pt is medically ready for discharge. Precert was approved for [facility], however, they no longer have any open beds and was unable to advise when another bed would be open. I spoke with patient at bedside and she asked about going to [place] instead. Referral was sent to [facility] [place]. Facility accepted patient for tomorrow and precert was transferred to [facility]. Pt and family updated on plan and are agreeable. Caliber wheelchair scheduled for tomorrow at 11am Trip#[id number]. Weekend CM to fax DC summary tomorrow when available to [phone] attn: Bart Quiñones. Report# [phone] Uvaldo Hadley RN * Fabio Bates PT - 08/25/2024 11:25 AM EDT Images from the original note were not included. Inpatient Physical Therapy Treatment Patient Name: Denisa Sanon Date of : 1940 Date of Treatment: 08/25/24 Start Time 1110 Stop Time 1125 Session Duration 15 minutes CPT CODES: 63970 Gait training x 1 General Visit Type: Treatment Approved by: Nurse Oliveira Patient Disposition Upon Entry: Supine in bed, Call Light/Pull Cord in reach, All needs met and within reach, Nursing aware/notified, Bed Alarm applied , Yellow non-slip socks donned Patient Verified By: Name and Date of Co-treated by: OT Precautions Weight-Bearing Status: Weight Bearing As Tolerated (WBAT) Precautions: Fall risk Isolation Precautions: Standard Lines, tubes, drains, airway: nasal cannula , Purewick Brace/protective equipment: knee immobilizer Subjective Subjective: Patient agreeable to physical therapy treatment. Knee immobilizer removed. Pain Yes. 0-10 SCALE Pain location: R knee Pt having increased R knee pain but did not rate. Appears moderate with facial grimacing. Notified nursing staff. Cognition Overall cognitive status: Patient is awake and alert, attending to directions appropriately, demonstrating good problem solving skills, and aware of any deficits or impairments, if present. Orientation Level: Oriented x4 Objective Vitals Vitals stable. Pt on 2L O2. Functional Mobility Bed Mobility: Supine to Sit: moderate assistance, HOB elevated, use of bed features, increased time due to pain Transfers Sit to Stand: moderate assistance, 2-person assist, gait belt used, rolling walker used Stand to Sit: moderate assistance, 2-person assist, gait belt used, rolling walker used Bed to/from Chair: moderate assistance, 2-person assist, gait belt used, rolling walker used Gait Pt able to take a few small steps over to chair during transfer ~4ft. Pt requiring mod A x 2 persons RW. Verbal cues for safety and gait pattern. Decreased step length, step to pattern, and decreasedstance time on RLE. Increased assistance needed this session due to pain. Stair Management Not assessed. Patient does not have to negotiate stairs in home or community environment. Wheelchair Mobility Not assessed, patient ambulatory. AM-PAC Basic Mobility Inpatient Short Form How much difficulty does the patient currently have: Turning over in bed (including adjusting bedclothes, sheets, and blankets)? (1) Total/Unable (not able to do the activity or can only perform the activity using assistive devices or requires assistance from another person, including supervision or cueing for safety) Sitting down on and standing up from a chair with arms (e.g., wheelchair, bedside commode, etc.)? (1) Total/Unable (not able to do the activity or can only perform the activity using assistive devices or requires assistance from another person, including supervision or cueing for safety) Moving from lying on back to sitting on side of bed? (1) Total/Unable (not able to do the activity or can only perform the activity using assistive devices or requires assistance from another person,including supervision or cueing for safety) How much help from another person does the patient currently need: Moving to and from a bed to a chair (including a wheelchair)? (2) A lot (Maximal/Moderate assist) Need to walk in hospital room? (2) A lot (Maximal/Moderate assist) Climbing 3-5 steps with a railing? (1) Total/Unable (Total assist/dependent) Score Raw score=8 t-Scale score=28.58 Standard error=4.04 [facility] 0-100%=86.62% MDC=4.72 A raw score of >= 16 is significantly associated with increased odds of discharge to home in addition to consideration made for the patient's cognition and social determinants of health. Balance Static/dynamic sitting and static/dynamic standing balance grades Balance Grade Sitting Static Good - patient able to maintain balance without handhold support, limited postural sway Sitting Dynamic Fair - patient accepts minimal challenge; able to maintain balance while turning head/trunk Standing Static Fair - patient able to maintain balance with handhold support; may require occasional minimal assistance Standing Dynamic Poor - patient unable to accept challenge or move without loss of balance Activity Tolerance Patient limited with activity/intervention due to pain, deconditioning, and weakness Treatment Pt performed transfers and short gait training. See above assessment. Requiring increased assistance due to pain this session. Able to complete transfer to chair and take a few steps. No major loss of balance. Assessment Pt participated as able due to pain. Requiring slightly more assist this session due to pain. No goals met. Pt will continue to benefit from skilled PT to return to prior level of function. Problems: Decreased functional mobility, Decreased gait tolerance, Decreased strength, Decreased activity tolerance, Impaired standing balance, Impaired dynamic balance, Gait impairment, Restricted ROM, Pain Rehab potential: Good for stated goals Plan Treatment plan: Continue per POC. PT Frequency/Duration: Daily for 14 days Recommendations Discharge recommendations: Discharge recommendations pending progression of acute hospital stay secondary to the patient's medical status DME recommendations: Unable to make recommendations at this time. Goals Bed Mobility: independent to return to hre PLOF Supine to/from sit: min assist x1 to ease caregiver burden Sit to/from stand: min assist x1 to ease caregiver burden Gait: 50 feet or greater with RWX, min assist x1 to navigate her home Target Date: 09/06/2024 Progress towards goals: progressing Education Patient educated on safety, use of call button, role of physical therapy, plan of care, ambulation,transfers, bed mobility, adaptive equipment, ROM/positioning, proper positioning and balance required for functional mobility tasks, home safety, need for assistance, and risk for falls and following, they were able to verbalize understanding. No further questions or concerns stated. Patient Disposition Upon Leaving Patient in bedside chair, Call Light/Pull Cord in reach, All needs met and within reach, Nursing aware/notified, Feet elevated, Chair Alarm applied, Yellow non-slip socks donned If this patient discharges prior to next therapy session, this note serves as the patient's discharge summary. Electronically signed by Fabio Bates, PT - 08/25/24 - 3:53 PM EDT * Lana Obed Escamilla, OTR/L - 08/25/2024 11:10 AM EDT Images from the original note were not included. Inpatient Occupational Therapy Treatment Note Patient Name: Denisa Sanon Date of : 1940 Date of Treatment: 08/25/24 Start Time: 1109 Stop Time: 1124 Session Duration: 15 minutes CPT CODES: 91699 ADL/self-care/home management This patient is a 84 y.o. female admitted on 08/23/2024 with Unilateral primary osteoarthritis, rightknee [M17.11] Osteoarthritis, knee [M17.9]. Past Medical History: Diagnosis Date Arthritis Asthma Blood transfusion without reported diagnosis Cervical radiculopathy Chronic renal insufficiency COPD (chronic obstructive pulmonary disease) (HCC) Coronary artery disease Diabetes mellitus (HCC) Dyspnea on exertion Former smoker Gout Hyperlipidemia Hypertension Obesity MARCELA on CPAP Right knee pain Skin cancer Wears glasses Past Surgical History: Procedure Laterality Date APPENDECTOMY ARTHROPLASTY,KNEE UNILATERAL Right 08/23/2024 Procedure: RIGHT TOTAL KNEE ARTHROPLASTY; Surgeon: Kiran Olmos MD; Location: [facility]; Service: Orthopedic Surgery; Laterality: Right; Slight Bruising noted at site of bovie pad removal, Left thigh CARDIAC CATHETERIZATION GALLBLADDER SURGERY HYSTERECTOMY Procedure on Brain Mass removed. TONSILLECTOMY General Visit type: Treatment Approved by: Nursing Patient disposition upon entry: Patient verified by name, Patient verified by date of , Supinein bed, All needs met and within reach, Call light/pull cord in reach, Head of bed >30 degrees, Nursing aware/notified Assisted by: PT Precautions Weightbearing status: Weight bearing as tolerated (WBAT) Precautions: Fall risk Isolation precautions: Standard LDA/Brace/Protective equipment: Lines, drains, and airways: peripheral IV, DANA wound vac Subjective Subjective: Pt agreeable Pain Pt did not rate pain however was tearful and crying due to pain in R knee. RN notified Cognition Cognition: Overall cognitive status: Patient is awake and alert, attending to directions appropriately, demonstrating good problem solving skills, and aware of any deficits or impairments, if present. Objective Vitals stable Bed Mobility Supine to sit: Moderate assistance, Head of bed elevated, Use of bedrails Transfers Sit to stand:Moderate assistance, 2 person assist, Gait belt used, Rolling walker used Stand to sit:Moderate assistance, 2 person assist, Gait belt used, Rolling walker used Functional mobility:Moderate assistance, 2 person assist, Gait belt used, Rolling walker used Bed to chair transfer:Moderate assistance, 2 person assist, Gait belt used, Rolling walker used Pt requiring increased assistance for all mobility due to increased pain in RLE today. Pt completestransfer bed to chair mod assist x2 person taking a few steps with rw and cues for sequencing. Pt did not control stand to sit in chair, tearful throughout. RN notified ADLs Feeding:Independent Grooming:Setup Bathing:Maximal Assistance LB Upper body dressing:Setup Lower body dressing:Maximal Assistance Toileting:Maximal Assistance Balance Static sitting balance:Good: Patient able to maintain balance without handheld support; limited postural sway Dynamic sitting balance:Fair: Patient accepts minimal challenge; able to maintain balance while turning head/trunk Static standing balance:Fair: Patient able to maintain balance with handheld support, may require occasional minimal assistance Dynamic standing balance:Fair: Patient accepts minimal challenge; able to maintain balance while turning head/trunk Activity Tolerance Patient limited with activity/intervention due to pain, deconditioning, and weakness Treatment See above Assessment Assessment Patient demonstrated decreased performance due to increased pain during this treatment session. Patient continues to present with decreased strength, decreased endurance, decreased balance, decreasedsafety awareness. These deficits currently impact the patient's ability to perform ADLs and functional mobility, putting them at an increased risk for poor outcomes, further functional decline, further decreased strength, increased caregiver burden. Patient will benefit from continued OT services to address the aforementioned functional deficits. Plan Recommendations Discharge recommendations: Discharge recommendations pending progression of acute hospital stay secondary to the patient's medical status DME recommendations: Unable to make adaptive/DME recommendations at this time. Treatment Plan: Continue OT POC OT Frequency/Duration: 3x/week for 14 days Goals Lower body dressing: donning and doffing lower body clothing with moderate assistance. Toileting: toileting with moderate assistance. Functional transfers: ambulatory transfer with moderate assistance. Goals were discussed with patient Progress towards goals: progressing Education Patient educated on safety, use of call light, role of occupational therapy, patient's plan of care, ADLs, functional mobility and following, they were able to verbalize understanding. Interdisciplinary Communication Following treatment, therapist communicated with nursing regarding patient's performance during therapy session. Patient Disposition Upon Leaving Patient Disposition: Sitting in bedside chair, All needs met and within reach, Call light/pull cordin reach, Feet elevated, Nursing aware/notified If this patient discharges prior to next therapy session, this note serves as the patient's discharge summary. Electronically signed by Lana Escamilla OTR/Yariel - 08/25/2024 - 12:22 PM EDT * Kiran Olmos MD - 08/25/2024 10:57 AM EDT Subjective To right knee doing well patient still limited mobility benefit from rehab stay due to increased fall risk and no help at home Review of Systems Objective Last Recorded Vitals Blood pressure (!) 144/59, pulse 55, temperature 97.4 ??F (36.3 ??C), temperature source Oral, resp. rate 18, height 1.6 m (5' 2.99 ), weight 110.6 kg (243 lb 12.6 oz), SpO2 98%. Physical Exam Right knee dressing clean and dry neurovascular exam intact Labs: Results for orders placed or performed during the hospital encounter of 08/23/24 (from the past 24 hours) Glucose, Nova Meter Status: Abnormal Collection Time: 08/24/24 4:13 PM Result Value Ref Range POC-GLUCOSE 260 (H) 70 - 110 mg/dL Carbon Brushes Assembler [id number] Glucose, Nova Meter Status: Abnormal Collection Time: 08/24/24 8:40 PM Result Value Ref Range POC-GLUCOSE 203 (H) 70 - 110 mg/dL [employer]er [id number] CBC with automated diff Status: Abnormal Collection Time: 08/25/24 4:36 AM Result Value Ref Range WBC 11.7 (H) 3.9 - 10.0 K/??L RBC 5.97 3.93 - 6.08 M/??L Hemoglobin 17.6 (H) 11.2 - 15.7 GM/DL Hematocrit 54.0 (H) 34.1 - 44.9 % MCV 91 79 - 95 fL MCH 29.5 25.6 - 32.2 pg MCHC 32.6 32.2 - 36.5 GM/DL RDW 14.9 (H) 11.6 - 14.4 % Platelets 119 (L) 163 - 369 K/CU MM MPV 9.7 9.4 - 12.4 fL % Neutros 65 34 - 71 % % Lymphs 18 (L) 19 - 53 % % Monos 15 (H) 4 - 13 % % Eos 1 1 - 7 % % Baso 1 0 - 1 % # Neutros 7.54 (H) 1.56 - 6.13 K/??L # Lymphs 2.12 1.18 - 3.74 K/??L # Monos 1.79 (H) 0.24 - 0.82 K/??L # Eos 0.13 0.04 - 0.54 K/??L # Baso 0.06 0.01 - 0.08 K/??L Immature Granulocytes-Relative 0.40 0.00 - 0.60 % # IG 0.05 0.00 - 0.05 K/uL Basic Metabolic Panel Status: Abnormal Collection Time: 08/25/24 4:36 AM Result Value Ref Range Sodium 133 (L) 136 - 146 meq/L Potassium 4.3 3.5 - 5.1 meq/L Chloride 97 (L) 102 - 112 meq/L CO2 32 21 - 32 meq/L Anion Gap 8 (L) 9 - 20 BUN 40 (H) 7 - 22 mg/dL Creatinine 1.52 (H) 0.55 - 1.02 mg/dL BUN/Creatinine 26 (H) 8 - 20 Glucose 182 (H) 74 - 106 mg/dL Calcium 9.2 8.5 - 10.1 mg/dL Osmolality Calc 280.8 mOsm/kg eGFR (mL/min/1.73m2) 33 (L) >=60 mL/min/1.73m2 Glucose, Nova Meter Status: Abnormal Collection Time: 08/25/24 5:00 AM Result Value Ref Range POC-GLUCOSE 193 (H) 70 - 110 mg/dL [employer]er [id number] CT lower extremity without IV contrast right [...] Antwon Yun. Transcribed by Yesenia Cano PA-C. Assessment Plan Post total knee elderly with multiple comorbidities minimal assistance at home if any increase fallrisk therefore recommend skilled care rehab stay for 1 to 2 weeks prior to discharge home waiting for approval for rehab stay patient will continue to progress with PT Discharge Planning: * Luly Finnegan PA-C - 08/24/2024 6:10 PM EDT Hospitalist Progress Note Date of Service: 08/24/2024 PCP: Norma Au APRN Chief Complaint: knee pain Subjective Denisa Sanon is a 84 y.o. female on hospital day 1. The principal reason for today's followup visit is Osteoarthritis, knee. Interval History: - Patient seen and evaluated this morning. Still working on optimizing pain control. Working on rehab placement. Patient has no other complaints. Review of Systems Constitutional: Negative for chills and fever. Eyes: Negative for blurred vision. Respiratory: Negative for cough and shortness of breath. Cardiovascular: Negative for chest pain and palpitations. Gastrointestinal: Negative for abdominal pain, diarrhea, nausea and vomiting. Genitourinary: Negative for dysuria and hematuria. Musculoskeletal: Positive for joint pain and myalgias. Neurological: Negative for dizziness and focal weakness. Objective Vitals: Temp: [97.2 ??F (36.2 ??C)-97.9 ??F (36.6 ??C)] 97.3 ??F (36.3 ??C) Pulse: [61-80] 66 Resp: [18-22] 18 BP: (121-163)/(51-109) 149/90 FiO2 (%): [35 %] 35 % Intake/Output: Intake/Output Summary (Last 24 hours) at 08/24/2024 1810 Last data filed at 08/24/2024 1400 Gross per 24 hour Intake 720 ml Output 600 ml Net 120 ml Physical Exam Vitals and nursing note reviewed. Constitutional: General: She is not in acute distress. Appearance: Normal appearance. HENT: Head: Normocephalic and atraumatic. Cardiovascular: Rate and Rhythm: Normal rate and regular rhythm. Pulses: Normal pulses. Heart sounds: Normal heart sounds. Pulmonary: Effort: Pulmonary effort is normal. No respiratory distress. Breath sounds: Normal breath sounds. No wheezing or rales. Comments: 2L NC Abdominal: General: Abdomen is flat. There is no distension. Palpations: Abdomen is soft. Tenderness: There is no abdominal tenderness. Musculoskeletal: General: Tenderness (R knee post op) present. Skin: General: Skin is warm and dry. Capillary Refill: Capillary refill takes less than 2 seconds. Neurological: General: No focal deficit present. Mental Status: She is alert and oriented to person, place, and time. Mental status is at baseline. Motor: No weakness. Psychiatric: Mood and Affect: Mood normal. Behavior: Behavior normal. Thought Content: Thought content normal. Labs: Recent Labs Lab(s) Units 08/24/24 1613 08/24/24 1057 08/24/24 0548 08/24/24 0526 WBC K/??L -- -- -- 13.3* HGB GM/DL -- -- -- 15.7 HCT % -- -- -- 47.8* PLT K/CU MM -- -- -- 277 NA meq/L -- -- -- 134* K meq/L -- -- -- 4.3 CL meq/L -- -- -- 97* CO2 meq/L -- -- -- 32 BUN mg/dL -- -- -- 41* CREATININE mg/dL -- -- -- 1.63* EGFR mL/min/1.73m2 -- -- -- 31* GLUCOSE mg/dL 260* 243* 222* 230* CALCIUM mg/dL -- -- -- 9.5 Scheduled Meds: allopurinoL 100 mg oral Daily 100 mg at 08/24/24 0844 aspirin 81 mg oral BID 81 mg at 08/24/24 0844 insulin glargine 12 Units subcutaneous BID insulin lispro 0-14 Units subcutaneous 4x Daily AC 6 Units at 08/24/24 1703 metoprolol succinate 25 mg oral Daily 25 mg at 08/24/24 1339 miconazole topical BID 1 Application at 08/24/24 0845 Continuous Infusions: Current Facility-Administered Medications Medication Dose Route Frequency Provider Last Rate Last Admin acetaminophen (TYLENOL) tablet 650 mg 650 mg oral Q6H PRN Kiran Olmos MD 650 mg at 08/24/24 0858 allopurinoL (ZYLOPRIM) tablet 100 mg 100 mg oral Daily Luly Finnegan PA-C 100 mg at 08/24/24 0844 aspirin chewable tablet 81 mg 81 mg oral BID Kiran Olmos MD 81 mg at 08/24/24 0844 dextrose 50% (D50W) injection 25 g 25 g intravenous Q15 Min PRN Luly Finnegan PA-C glucagon injection 1 mg 1 mg intraMUSCULAR Q15 Min PRN Luly Finnegan PA-C glucose chew tab 16 g 16 g oral Q15 Min PRN Luly Finnegan PA-C hydrALAZINE (APRESOLINE) injection 10 mg 10 mg intravenous Q4H PRN Luly Finnegan PA-C insulin glargine (LANTUS) injection 12 Units 12 Units subcutaneous BID Luly Finnegan PA-C insulin lispro (HUMALOG, ADMELOG) injection 0-14 Units 0-14 Units subcutaneous 4x Daily AC Luly Finnegan PA-C 6 Units at 08/24/24 1703 ipratropium-albuteroL (DUO-NEB) 0.5 mg-3 mg(2.5 mg base)/3 mL nebulizer solution 3 mL 3 mL nebulization Q6H PRN Luly Finnegan PA-C LEIE2ZULT 100 mg oral Daily PRN Kiran Olmos MD metoprolol succinate (TOPROL-XL) 24 hr tablet 25 mg 25 mg oral Daily Luly Finnegan PA-C 25 mg at 08/24/24 1339 miconazole (MICOTIN) 2 % powder topical BID Luly Finnegan PA-C 1 Application at 08/24/24 0845 morphine injection 1 mg 1 mg intravenous Q2H PRN Kiran Olmos MD ondansetron (ZOFRAN-ODT) disintegrating tablet 4 mg 4 mg oral Q8H PRN Kiran Olmos MD Or ondansetron (ZOFRAN) injection 4 mg 4 mg intravenous Q8H PRN Kiran Olmos MD traMADoL (ULTRAM) tablet 50 mg 50 mg oral Q4H PRN Kiran Olmos MD 50 mg at 08/24/24 1702 Assessment and Plan Right knee osteoarthritis -POD 1 PLAN -Orthopaedic surgery following. -Activity per surgery recommendations. -GI/VTE prophylaxis per surgery. -Adequate pain control with parenteral analgesics per Dr. Olmos. -As needed antiemetic with parenteral Zofran 4 mg every 8hrs for nausea. Chronic hypoxic respiratory failure Uncontrolled asthma / COPD with frequent exacerbations -On 2L NC at baseline. Titrate based on oxygen saturation. -Using home inhalers. -Duonebs as needed. Chronic diastolic heart failure Hypertension -No echo to review, report per PAT testing. -Holding home Aldactone and Demadex due to elevated sCr. -Start metoprolol XL 25 mg once daily in interim. CAD Chronic LBBB -S/p [facility] 07/2019 with mild CAD. -Follow up with order entry technician per recommendations. CKD -sCr 1.52 at pre admit testing. -sCr up to 1.63 today with BUN 41. Will hold diuretics for now. -BMP in am. Type II diabetes mellitus Last A1c 08/09/2024 7.7%. -Home Lantus 40u BID + Lispro 15u AC. -Increase Lantus 12u BID + SSI Q6h. Titrate as indicated. MARCELA -Continue home CPAP pm. Morbid obesity -BMI 43.19. Complicates all aspects of care. Gout -Resume Allopurinol in am. Chronic pain -On home Tramadol. Pain regimen per ortho as above. Candidal intertrigo -Erythematous rash to abdominal skin folds. Denies pruritus or pain. - Continue miconazole powder and application of skin barrier dressing to prevent friction and keep the area dry. Diet: Orders Placed This Encounter Procedures Consistent Carbohydrate Additional Modifiers: Chopped Meats, Easy to Chew DVT ppx: ASA BID per ortho #GI Ppx (if indicated): Not indicated #Code Status: Full Code #Medical decision maker: Self Discharge Planning: Barriers to discharge: Pending medical improvement, rehab placement, pain control. Expected (tentative) discharge in 1-2 days Expected discharge disposition (home, SNF/Rehab, etc): Rehab Additional discharge needs or delays: TBD Luly Finnegan PA-C 08/24/2024 at 6:10 PM Hospitalist [facility], [facility] Attending: Dr. Rogers Voice aircraft engine specialist technology (Help/Systems) is used for dictation of this note and sound-alike words might be erroneously placed despite reviewing the note for accuracy. Errors in dictation mayreflect use of voice recognition software and not all errors in aircraft engine specialist may have been detected prior to signing. Cosigned by Chay Rogers MD at 08/24/2024 6:37 PM EDT * Uvaldo Hadley RN - 08/24/2024 3:20 PM EDT Discharge Plan Progress Note MDR attended w/team this morning. Pt improved w/PT this morning. Spoke with Jessi at [facility], precert has been started. Awaiting approval at this time. Uvaldo Hadley RN * Fabio Bates PT - 08/24/2024 10:05 AM EDT Images from the original note were not included. Inpatient Physical Therapy Treatment Patient Name: Denisa Sanon Date of : 1940 Date of Treatment: 08/24/24 Start Time 0950 Stop Time 1005 Session Duration 15 minutes CPT CODES: 54257 Gait training x 1 General Visit Type: Treatment Approved by: Nurse Mandel Patient Disposition Upon Entry: Supine in bed, Call Light/Pull Cord in reach, All needs met and within reach, Nursing aware/notified, Bed Alarm applied , Yellow non-slip socks donned Patient Verified By: Name and Date of Co-treated by: OT Precautions Weight-Bearing Status: Weight Bearing As Tolerated (WBAT) Precautions: Fall risk Isolation Precautions: Standard Lines, tubes, drains, airway: nasal cannula , Purewick Brace/protective equipment: knee immobilizer Subjective Subjective: Patient agreeable to physical therapy treatment. Pt demonstrating improve R knee control. Knee immobilizer removed. Pain Yes. 0-10 SCALE Pain location: R knee 4/10 Cognition Overall cognitive status: Patient is awake and alert, attending to directions appropriately, demonstrating good problem solving skills, and aware of any deficits or impairments, if present. Orientation Level: Oriented x4 Objective Vitals Vitals stable. Pt on 2L O2. Functional Mobility Bed Mobility: Supine to Sit: supervision, HOB elevated, use of bed features, increased time due to pain Transfers Sit to Stand: minimal assistance, moderate assistance, 2-person assist, gait belt used, rolling walker used Stand to Sit: minimal assistance, moderate assistance, 2-person assist, gait belt used, rolling walker used Bed to/from Chair: minimal assistance, moderate assistance, 2-person assist, gait belt used, rolling walker used Gait Pt able to take a few small steps over to chair during transfer ~4ft. Pt requiring min/mod A x 2 persons RW. Verbal cues for safety and gait pattern. Decreased step length, step to pattern, and decreased stance time on RLE. Stair Management Not assessed. Patient does not have to negotiate stairs in home or community environment. Wheelchair Mobility Not assessed, patient ambulatory. AM-PAC Basic Mobility Inpatient Short Form How much difficulty does the patient currently have: Turning over in bed (including adjusting bedclothes, sheets, and blankets)? (1) Total/Unable (not able to do the activity or can only perform the activity using assistive devices or requires assistance from another person, including supervision or cueing for safety) Sitting down on and standing up from a chair with arms (e.g., wheelchair, bedside commode, etc.)? (1) Total/Unable (not able to do the activity or can only perform the activity using assistive devices or requires assistance from another person, including supervision or cueing for safety) Moving from lying on back to sitting on side of bed? (1) Total/Unable (not able to do the activity or can only perform the activity using assistive devices or requires assistance from another person,including supervision or cueing for safety) How much help from another person does the patient currently need: Moving to and from a bed to a chair (including a wheelchair)? (2) A lot (Maximal/Moderate assist) Need to walk in hospital room? (2) A lot (Maximal/Moderate assist) Climbing 3-5 steps with a railing? (1) Total/Unable (Total assist/dependent) Score Raw score=8 t-Scale score=28.58 Standard error=4.04 CMS 0-100%=86.62% MDC=4.72 A raw score of >= 16 is significantly associated with increased odds of discharge to home in addition to consideration made for the patient's cognition and social determinants of health. Balance Static/dynamic sitting and static/dynamic standing balance grades Balance Grade Sitting Static Good - patient able to maintain balance without handhold support, limited postural sway Sitting Dynamic Fair - patient accepts minimal challenge; able to maintain balance while turning head/trunk Standing Static Fair - patient able to maintain balance with handhold support; may require occasional minimal assistance Standing Dynamic Poor - patient unable to accept challenge or move without loss of balance Activity Tolerance Patient limited with activity/intervention due to pain, deconditioning, and weakness Treatment Pt performed transfers and short gait training. See above assessment. Able to take a few small steps to transfer to chair. Improved from yesterdays session. Verbal cues throughout session for safety,gait pattern, and transfer technique. No major loss of balance or major knee buckling noted. Pt in no major distress after transfer to chair. Assessment Pt progressing. Requiring less assistance this session and able to take a few steps to chair. No goals met this session. Pt will benefit from rehab placement. Pt will continue to benefit from skilledPT to return to prior level of function. Problems: Decreased functional mobility, Decreased gait tolerance, Decreased strength, Decreased activity tolerance, Impaired standing balance, Impaired dynamic balance, Gait impairment, Restricted ROM, Pain Rehab potential: Good for stated goals Plan Treatment plan: Continue per POC. PT Frequency/Duration: Daily for 14 days Recommendations Discharge recommendations: Discharge recommendations pending progression of acute hospital stay secondary to the patient's medical status DME recommendations: Unable to make recommendations at this time. Goals Bed Mobility: independent to return to hre PLOF Supine to/from sit: min assist x1 to ease caregiver burden Sit to/from stand: min assist x1 to ease caregiver burden Gait: 50 feet or greater with RWX, min assist x1 to navigate her home Target Date: 09/06/2024 Progress towards goals: progressing Education Patient educated on safety, use of call button, role of physical therapy, plan of care, ambulation,transfers, bed mobility, adaptive equipment, ROM/positioning, proper positioning and balance required for functional mobility tasks, home safety, need for assistance, and risk for falls and following, they were able to verbalize understanding. No further questions or concerns stated. Patient Disposition Upon Leaving Patient in bedside chair, Call Light/Pull Cord in reach, All needs met and within reach, Nursing aware/notified, Feet elevated, Chair Alarm applied, Yellow non-slip socks donned If this patient discharges prior to next therapy session, this note serves as the patient's discharge summary. Electronically signed by Fabio Bates PT - 08/24/24 - 12:40 PM EDT * Lana Escamilla, OTR/L - 08/24/2024 9:50 AM EDT Images from the original note were not included. Inpatient Occupational Therapy Treatment Note Patient Name: Denisa Sanon Date of : 1940 Date of Treatment: 08/24/24 Start Time: 0950 Stop Time: 1005 Session Duration: 15 minutes CPT CODES: 02834 ADL/self-care/home management This patient is a 84 y.o. female admitted on 08/23/2024 with Unilateral primary osteoarthritis, rightknee [M17.11] Osteoarthritis, knee [M17.9]. Past Medical History: Diagnosis Date Arthritis Asthma Blood transfusion without reported diagnosis Cervical radiculopathy Chronic renal insufficiency COPD (chronic obstructive pulmonary disease) (HCC) Coronary artery disease Diabetes mellitus (HCC) Dyspnea on exertion Former smoker Gout Hyperlipidemia Hypertension Obesity MARCELA on CPAP Right knee pain Skin cancer Wears glasses Past Surgical History: Procedure Laterality Date APPENDECTOMY ARTHROPLASTY,KNEE UNILATERAL Right 08/23/2024 Procedure: RIGHT TOTAL KNEE ARTHROPLASTY; Surgeon: Kiran Olmos MD; Location: [facility]; Service: Orthopedic Surgery; Laterality: Right; Slight Bruising noted at site of bovie pad removal, Left thigh CARDIAC CATHETERIZATION GALLBLADDER SURGERY HYSTERECTOMY Procedure on Brain Mass removed. TONSILLECTOMY General Visit type: Treatment Approved by: Nursing Patient disposition upon entry: Patient verified by name, Patient verified by date of , Supinein bed, All needs met and within reach, Call light/pull cord in reach, Head of bed >30 degrees, Nursing aware/notified Assisted by: PT Precautions Weightbearing status: Weight bearing as tolerated (WBAT) Precautions: Fall risk Isolation precautions: Standard LDA/Brace/Protective equipment: Lines, drains, and airways: DANA wound vac , polar care, pure wick Subjective Subjective: Pt agreeable Pain 07/27 R knee, RN aware, pt had medication prior to treatment Cognition Cognition: Overall cognitive status: Patient is awake and alert, attending to directions appropriately, demonstrating good problem solving skills, and aware of any deficits or impairments, if present. Objective Vitals stable Bed Mobility Supine to sit: Modified independent, Head of bed elevated, Use of bedrails Transfers Sit to stand:Minimal assistance, Moderate assistance, 2 person assist, Gait belt used, Rolling walker used Stand to sit:Minimal assistance, Moderate assistance, 2 person assist, Gait belt used, Rolling walker used Functional mobility:Minimal assistance, Moderate assistance, 2 person assist, Gait belt used, Rolling walker used Bed to chair transfer:Minimal assistance, Moderate assistance, 2 person assist, Gait belt used, Rolling walker used Pt able to take a few steps bed to chair min/mod assist x2 person for safety using rw. Pt requiringcues for safety and sequencing. ADLs Lower body dressing:Maximal Assistance Balance Static sitting balance:Good: Patient able to maintain balance without handheld support; limited postural sway Dynamic sitting balance:Fair: Patient accepts minimal challenge; able to maintain balance while turning head/trunk Static standing balance:Fair: Patient able to maintain balance with handheld support, may require occasional minimal assistance Dynamic standing balance:Fair: Patient accepts minimal challenge; able to maintain balance while turning head/trunk Activity Tolerance Patient limited with activity/intervention due to pain and weakness Treatment See above Assessment Assessment Patient demonstrated improved performance during this treatment session. Patient continues to present with decreased strength, decreased endurance, decreased balance, decreased safety awareness. These deficits currently impact the patient's ability to perform ADLs and functional mobility, putting them at an increased risk for poor outcomes, further functional decline, further decreased strength, increased caregiver burden. Patient will benefit from continued OT services to address the aforementioned functional deficits. Plan Recommendations Discharge recommendations: Discharge recommendations pending progression of acute hospital stay secondary to the patient's medical status DME recommendations: Unable to make adaptive/DME recommendations at this time. Treatment Plan: Continue OT POC OT Frequency/Duration: 3x/week for 14 days Goals Lower body dressing: donning and doffing lower body clothing with moderate assistance. Toileting: toileting with moderate assistance. Functional transfers: ambulatory transfer with moderate assistance. Goals were discussed with patient Progress towards goals: progressing Education Patient educated on safety, use of call light, ADLs, functional mobility and following, they were able to verbalize understanding. Interdisciplinary Communication Following treatment, therapist communicated with nursing regarding patient's performance during therapy session. Patient Disposition Upon Leaving Patient Disposition: Sitting in bedside chair, All needs met and within reach, Call light/pull cordin reach, Chair alarm applied, Feet elevated, Nursing aware/notified If this patient discharges prior to next therapy session, this note serves as the patient's discharge summary. Electronically signed by NIKHIL Roman/Yariel - 08/24/2024 - 10:49 AM EDT * Ministerio Ty RN - 08/23/2024 3:48 PM EDT Pt stood side of bed and used bed side commode, extensive assistance (X2 assist), did not tolerate good, assisted by PT, OT and nurse and by other staff also. Not able to move further from bed side to recliner, assisted back to bed, c/o right knee pain, prn Tramadol is administered, pleasant mood, tolerated oral fluids good, will cont. To mx. * NIKHIL Roman/Yariel - 08/23/2024 1:13 PM EDT Images from the original note were not included. Inpatient Occupational Therapy Initial Evaluation Patient Name: Denisa Sanon Date of : 1940 Date of Evaluation: 08/23/24 Start Time: 1313 Stop Time: 1341 Session Duration: 28 minutes Total time: 38 minutes spent, including 10 minutes for nursing collaboration, thorough chart and systems review, and clinical reasoning. CPT CODES: 04034 Eval mod complexity, 32759 ADL/self-care/home management , and Rehab each additional 15 x 1 This patient is a 84 y.o. female admitted on 08/23/2024 with Unilateral primary osteoarthritis, rightknee [M17.11] Osteoarthritis, knee [M17.9]. Past Medical History: Diagnosis Date Arthritis Asthma Blood transfusion without reported diagnosis Cervical radiculopathy Chronic renal insufficiency COPD (chronic obstructive pulmonary disease) (HCC) Coronary artery disease Diabetes mellitus (HCC) Dyspnea on exertion Former smoker Gout Hyperlipidemia Hypertension Obesity MARCELA on CPAP Right knee pain Skin cancer Wears glasses Past Surgical History: Procedure Laterality Date APPENDECTOMY CARDIAC CATHETERIZATION GALLBLADDER SURGERY HYSTERECTOMY Procedure on Brain Mass removed. TONSILLECTOMY General Visit type: Initial Evaluation Approved by: Nursing Patient disposition upon entry: Patient verified by name, Patient verified by date of , Supinein bed, All needs met and within reach, Call light/pull cord in reach, Head of bed >30 degrees, Nursing aware/notified Assisted by: PT Precautions Weightbearing status: Weight bearing as tolerated (WBAT) Precautions: Fall risk Isolation precautions: Standard LDA/Brace/Protective equipment: Lines, drains, and airways: nasal cannula, peripheral IV, DANA wound vac , pure wick Brace/protective equipment: Knee immobilizer , RLE Subjective Subjective: Pt agreeable Patient's stated goal: go home Pain No-patient has no complaints of pain Cognition Cognition: Overall cognitive status: Patient is awake and alert, attending to directions appropriately, demonstrating good problem solving skills, and aware of any deficits or impairments, if present. Arousal/alertness: Lethargic. Patient appears drowsy and may fall asleep if not stimulated. Patienthaving difficulty with maintaining attention to activity or command. Groggy post surgery Orientation level: Oriented x4 Vision/Hearing History No apparent deficits Home Living Lives with: Alone Receives help from: Patient does not need help from others at baseline Type of home: Mobile home Home layout: One level, Ramped entrance Home equipment available: rollator, shower chair, walker, rolling Functional Mobility PLOF: Patient reports being modified independent with all functional mobility with the use of Rollator Activities of Daily Living PLOF: Patient reports being modified independent with all ADL's with theuse of Rollator Does the patient have a recent history of falls?: No Objective Vitals No issues reported Range of Motion Assessment BUE WFL Strength Assessment BUE WFL Coordination/Sensation Coordination: The patient's gross motor coordination is intact. Sensation: Patient reports no sensation deficits. Bed Mobility Scooting: Maximal assistance, 2 person assist Supine to sit: Maximal assistance, 2 person assist, Head of bed elevated Sit to supine: Maximal assistance, 2 person assist, Head of bed flat Transfers Sit to stand:Maximal assistance, 2 person assist, Gait belt used, Rolling walker used Stand to sit:Maximal assistance, 2 person assist, Gait belt used, Rolling walker used Chair to bed transfer:Maximal assistance, 2 person assist, Gait belt used, Rolling walker used Bedside commode transfer:Maximal assistance, 2 person assist, Gait belt used, Rolling walker used Pt alert while sitting on EOB and requesting to use toilet. Bedside commode placed next to patient's bed requiring max assist x2 person and standby of RN to make sure commode does not slide to stand pivot to BSC. Pt less responsive, more lethargic sitting on bedside commode requiring cues to keep eyes open. Pt assisted back to bed max assist x2 person and standby of RN for safety due to pt too groggy and lethargic post operatively. Pt left in bed with all needs in place, not safe to be OOB at this time due to lethargy. ADLs Feeding:Independent Grooming:Minimal Assistance Bathing:Maximal Assistance Upper body dressing:Minimal Assistance Lower body dressing:Total Assistance Toileting:Total Assistance , pt requested to use BSC . Pt with brief donned and required total assist to remove soiled brief. Pt too lethargic to fully engage in Adls. Pt limited with ADLs at this time as she is too lethargic/groggy post surgery. Outcome Measures [facility] Daily Living Functional Assessment How much help from another person does the patient currently need: Putting on and taking off regular lower body clothing? 1 Bathing, including washing, rinsing, and drying? 2 Toileting, including using toilet, bedpan or urinal? 1 Putting on and taking off regular upper body clothing? 3 Taking care of personal grooming such as brushing teeth? 3 Eating meals? 4 1=Total/Unable (Total assist/Dependent) 2=A lot (Maximal/Moderate assist) 3=A little (Minimal/Contact guard/Supervision/Setup) 4=None (Modified independent/Independent) The patient's [facility] raw score is 14. The patient currently has 59.67% functional impairment. Clinicians are most likely to recommend inpatient/SNF/[place] [facility] care for patients with scores between 6-17, home health for scores between 18-22, and routine discharge for scores above 22. Balance Static sitting balance:Good: Patient able to maintain balance without handheld support; limited postural sway Dynamic sitting balance:Fair: Patient accepts minimal challenge; able to maintain balance while turning head/trunk Static standing balance:Poor: Patient required handheld support and moderate to maximal support to maintain position Dynamic standing balance:Poor: Patient unable to accept challenge or move without loss of balance Activity Tolerance Patient limited with activity/intervention due to fatigue, deconditioning, weakness, and lethargy Treatment See above Extra time assisting pt with needs in room and nursing staff also assisting OT/PT Assessment Assessment Prior to admission, patient was independent with ADLs using adaptive equipment, was independent with functional mobility using assistive devices. Currently the patient presents with decreased balance, decreased knowledge of precautions, decreased safety awareness , difficulty with ADLs, fall risk,impaired endurance, impaired functional mobility, impaired strength . These deficits currently impact the patient's ability to perform ADLs and functional mobility, putting them at an increased risk for poor outcomes, further functional decline, further decreased strength, increased caregiver burden. The patient has good rehab potential and would benefit from OT services to address the aforementioned functional deficits in order to return to prior level of function. Plan Recommendations Discharge recommendations: Discharge recommendations pending progression of acute hospital stay secondary to the patient's medical status DME recommendations: Unable to make adaptive/DME recommendations at this time. Treatment Plan: Adaptive equipment training, ADL training, Co-treat with physical therapy, DME recommendations , Energy conservation instruction, Functional mobility/transfer training, Patient/family/caregiver education, Precaution education/training, Safety training, Strengthening OT Frequency/Duration: 3x/week for 14 days Goals; to assist in PLOF Lower body dressing: donning and doffing lower body clothing with moderate assistance. Toileting: toileting with moderate assistance. Functional transfers: ambulatory transfer with moderate assistance. Target Date: 09/06/2024 Goals were discussed with patient Education Patient educated on safety, use of call light and following, they were able to verbalize understanding. Interdisciplinary Communication Following treatment, therapist communicated with nursing, clinical nursing instructor regarding patient's performance during therapy session. Patient Disposition Upon Leaving Patient disposition upon leaving: Supine in bed, All needs met and within reach, Call light/pull cord in reach, Nursing at bedside, Nursing aware/notified If this patient discharges prior to next therapy session, this note serves as the patient's discharge summary. Electronically signed by Lana Escamilla, OTR/L - 08/23/2024 - 1:40 PM EDT OT Evaluation Completed * Roro Garcia, PT - 08/23/2024 1:13 PM EDTSummary: PT EVALUATION Images from the original note were not included. [facility] Initial Evaluation Patient Name: Denisa Sanon Date of : 1940 Date of Evaluation: 08/23/24 In Time 1313 Out Time 1341 Session Duration 28 minutes Time spent for nursing collaboration, chart and systems review, and clinical reasoning. 10 minutes Total Time 38 minutes CPT CODES: 62088 Eval mod complex, 08640 Therapeutic/functional activity x 1, No charge Rehab each add 15 min x 1 Pt is a 84 y.o. female admitted on 08/23/2024 with Unilateral primary osteoarthritis, right knee [M17.11] Osteoarthritis, knee [M17.9]. Past Medical History: Diagnosis Date Arthritis Asthma Blood transfusion without reported diagnosis Cervical radiculopathy Chronic renal insufficiency COPD (chronic obstructive pulmonary disease) (HCC) Coronary artery disease Diabetes mellitus (HCC) Dyspnea on exertion Former smoker Gout Hyperlipidemia Hypertension Obesity MARCELA on CPAP Right knee pain Skin cancer Wears glasses Past Surgical History: Procedure Laterality Date APPENDECTOMY CARDIAC CATHETERIZATION GALLBLADDER SURGERY HYSTERECTOMY Procedure on Brain Mass removed. TONSILLECTOMY General Visit Type: Initial Evaluation Approved By: Nurse Mandel Patient Disposition Upon Entry: Supine in bed, Call Light/Pull Cord in reach, All needs met and within reach, Nursing aware/notified, Yellow non-slip socks donned Patient Verified By: Name and Date of Assisted by: Occupational therapist Precautions Weight-Bearing Status: Weight Bearing As Tolerated (WBAT) Precautions: Fall risk Isolation Precautions: Standard Lines, tubes, drains, airway: nasal cannula , peripheral IV, DANA dressing, Polar care, KI on RLE Subjective Subjective: Patient agreeable to physical therapy evaluation and treatment. Pain No - Patient not reporting pain at this time Cognition Overall cognitive status: Patient is awake and alert, attending to directions appropriately, demonstrating good problem solving skills, and aware of any deficits or impairments, if present. Arousal/Alertness: Very groggy at times Home Living Lives with: Alone Home Type: Trailer/RV Home Layout: One level Stairs to enter: None, ramped entrance Stairs inside home: none Home Equipment: Rollator, Single point cane, Shower chair Functional Mobility PLOF: Patient reports being complete independent with all functional mobility prior to onset. Activities of Daily Living PLOF: Patient reports being complete independent with all ADL's prior toonset. Fall History: No, patient denies any falls over the last 6 months. Objective Vitals No problems noted Basic Strength and ROM Assessment RLE is impaired secondary to surgery and is in KI at this time. Pt has full active right ankle DF and PF. LLE is WFL's. BUE's are WFL's Sensation No deficits noted Coordination Not able to assess today Functional Mobility Bed Mobility Supine to Sit: maximal assistance, 2-person assist Bed Scooting: maximal assistance, 2-person assist Transfers Sit to Stand: maximal assistance, 2-person assist, gait belt used, rolling walker used Stand to Sit: maximal assistance, 2-person assist, gait belt used, rolling walker used BSC: maximal assistance, 2-person assist, gait belt used, rolling walker used Gait Not assessed this date due to pt's anxiety, grogginess and difficulty following cues at times. Stair Management Not addressed today. Focus of treatment today on transfer training and bed mobility training. Wheelchair Mobility Not addressed today. Focus of treatment today on transfer training and bed mobility training. AM-PAC Basic Mobility Inpatient Short Form How much difficulty does the patient currently have: Turning over in bed (including adjusting bedclothes, sheets, and blankets)? (1) Total/Unable (not able to do the activity or can only perform the activity using assistive devices or requires assistance from another person, including supervision or cueing for safety) Sitting down on and standing up from a chair with arms (e.g., wheelchair, bedside commode, etc.)? (1) Total/Unable (not able to do the activity or can only perform the activity using assistive devices or requires assistance from another person, including supervision or cueing for safety) Moving from lying on back to sitting on side of bed? (1) Total/Unable (not able to do the activity or can only perform the activity using assistive devices or requires assistance from another person,including supervision or cueing for safety) How much help from another person does the patient currently need: Moving to and from a bed to a chair (including a wheelchair)? (1) Total/Unable (Total assist/dependent) Need to walk in hospital room? (1) Total/Unable (Total assist/dependent) Climbing 3-5 steps with a railing? (1) Total/Unable (Total assist/dependent) Score Raw score=6 t-Scale score=23.55 Standard error=4.57 [facility] 0-100%=100.00% MDC=4.72 A raw score of >= 16 is significantly associated with increased odds of discharge to home in addition to consideration made for the patient's cognition and social determinants of health. Balance Static/dynamic sitting and static/dynamic standing balance grades Balance Grade Sitting Static Fair - patient able to maintain balance with handhold support; may require occasional minimal assistance Sitting Dynamic Fair - patient accepts minimal challenge; able to maintain balance while turning head/trunk Standing Static Poor - patient requires handhold support and moderate to maximal assistance to maintain position Standing Dynamic Poor - patient unable to accept challenge or move without loss of balance Activity Tolerance Patient limited with activity/intervention due to deconditioning, difficulty following commands, and lethargy Treatment See above for transfers and mobility. PT session began with transfer to sitting EOB and then pt reported that she needed to urinate. Pt stood with max assist x2 and needed max assist x2 to maintain standing prior to pivot to commode withmax assist x2. Pt leaned back twice on commode and was trying to fall asleep with max cues to stay awake. Pt not able to remain on commode safely. Stood again with max assist x2 and then pivoted backto side of bed with max assist x2. Sit to supine with dependent assist x2. Positioned in the bed and PT assisted RN with rolling pt to position for skin assessment and for wound photos to be taken. Pt left supine in care of staff physical therapist. Assessment Pt is s/p RTKA and was max assist x2 for mobility today. Pt was not able to safely transfer to remain out of bed and up in chair but pt did perform a series of sit to stand transfers to attempt to get onto the commode. Pt would benefit from continued skilled PT services in the acute care setting toimprove her level of mobility and assist her to return to her PLOF. Problems: Decreased functional mobility, Decreased gait tolerance, Decreased activity tolerance, Impaired standing balance, Impaired dynamic balance, Gait impairment Rehab potential: Good for stated goals Plan Treatment Plan: Therapeutic Exercise, Therapeutic Activity, Gait Training, Transfer Training, Balance Training, Home Exercise Program PT Frequency/Duration: Daily for 14 days Recommendations Discharge recommendations: Discharge recommendations pending progression of acute hospital stay secondary to the patient's medical status DME recommendations: Unable to make recommendations at this time. Goals Bed Mobility: independent to return to hre PLOF Supine to/from sit: min assist x1 to ease caregiver burden Sit to/from stand: min assist x1 to ease caregiver burden Gait: 50 feet or greater with RWX, min assist x1 to navigate her home Target Date: 07/07/2024 Goals were discussed with patient Education Patient educated on safety, use of call button, role of physical therapy, plan of care, ambulation,transfers, bed mobility, ROM/positioning, proper positioning and balance required for functional mobility tasks, need for assistance, and risk for falls and following, they were able to verbalize understanding. No further questions or concerns stated. Patient Disposition Upon Leaving Supine in bed, Call Light/Pull Cord in reach, All needs met and within reach, Nursing aware/notified, Bed Alarm applied , Nursing at bedside, Yellow non-slip socks donned If this patient discharges prior to next therapy session, this note serves as the patient's discharge summary. Electronically signed by Roro Garcia, PT - 08/23/24 - 1:39 PM EDT PT Evaluation Completed * Analia Gayle RN - 08/23/2024 12:43 PM EDT Patient transported to [facility]- report given to MARIXA Mandel- Patient stable with no s/s of distress. 2L NC on- polar care on- and SCD's placed before leaving room. Immobilizer properly in place from OR - DANA green light on indicating drain is working properly. Examined surgical Leg (R) with MARIXA Mandel and made aware of rash in groin area. * Analia Gayle RN - 08/23/2024 12:19 PM EDT Continued with current pain medication orders, patient cleared by anesthesia for 3rd floor inpatient transfer- patient vitals stable (see flowsheet) 97% O2 on 3L NC with no S/S of distress. * Analia Gayle RN - 08/23/2024 11:57 AM EDT Anesthesia at bedside to address patient pain- instructed to continue with current pain medicine orders- no further orders at this time. documented in this encounter H&P Notes * Kiran Olmos MD - 08/23/2024 6:59 AM EDT H&P reviewed. The patient was examined and there are no changes to the H&P. Source Note - Kisha Francis PA-C - 08/09/2024 11:00 AM [...] oriented to person, place, and time. Difficult infertility medical assistant Psychiatric: Mood normal. Nursing note and vitals [...] Result Value Ref Range MRSA by PCR [facility] MRSA Not Detected by PCR MRSA Not [...] 65 BPM ATRIAL RATE (MCT) 65 BPM OK Interval 160 ms QRS-INTERVAL (MSEC) 154 ms QT Interval 438 ms QTC Interval 455 ms R AXIS (MCT) -32 degrees T Wave [place] 121 degrees [place] Diagnosis Sinus rhythm with premature atrial complexes [...] understands risks. Encouraged her to FU. -Per senior c software engineer, Dr. aErl: Our mutual patient listed above was last [...] 2:58 PM EDT documented in this encounter Consult Notes * Uvaldo Hadley RN - 08/23/2024 2:35 PM EDTAssociated Order(s): IP CONSULT TO CARE COORDINATION Care Coordination Initial Assessment Home Environment Type of Residence: Private residence Living Arrangements: Family members Support System: Family members Patient returning to prior living situation? No Affect/Behavior: Appropriate Prior/Regular Transportation: Family Needs assistance with transportation:No ADL Screen Patient's Vision Adequate to Safely complete ADLs:No Patient's Judgement Adequate to safely completed ADLs: No Dressing: Independent Current Home Care Services: Current Home Care Services: None Assistive DevicesNo Patient's Judgement Adequate to Safely Complete Daily Activities: No Dressing: Independent Current Lines, Tubes: Special/Community Services: None Transition Needs Expected Discharge Date: TBD Home or Post Acute Services Needed: Post acute facilities (Rehab/SNF/etc) Does the patient have the ability to fill and receive their discharge medications: Yes Discharge plan discussed: The discharge plan was discussed with patient. Discharge Barriers: Activity, Insurance Type of Assistive Devices Needed for Discharge: None Patient Discharge Goal: Inpatient Rehab Facility Mandated Reporting: Not applicable CM consulted for SNF placement. Met w/pt and family at bedside. Confirmed contact, demographic and pcp information. Pt is s/p right total knee. CM reviewed ortho navigator plan, confirmed w/pt that she does want rehab. Referral sent to [facility]. Family advised they could transport depending on how [facility] works with PT/OT during hospital stay. CM to follow. Uvaldo Hadley RN * Luly Finnegan PA-C - 08/23/2024 2:10 PM EDTAssociated Order(s): Inpatient consult to Hospitalist Inpatient consult to Hospitalist Consult performed by: Luly Finnegan PA-C Consult ordered by: Kiran Olmos MD History of Present Illness: Denisa Sanon is a 84 y.o. female presenting with right knee osteoarthritis, chronic hypoxicrespiratory failure, COPD, asthma, type II diabetes mellitus, CKD, chronic diastolic heart failure,hypertension, hyperlipidemia, gout, chronic pain, MARCELA, and morbid obesity. We have been asked to assist with medical management post right total knee arthroplasty. The patient is resting comfortably.Pain is tolerable with medication. Home medications resumed as appropriate. Past Medical History: She has a past medical history of Arthritis, Asthma, Blood transfusion without reported diagnosis, Cervical radiculopathy, Chronic renal insufficiency, COPD (chronic obstructive pulmonary disease) (HCC), Coronary artery disease, Diabetes mellitus (HCC), Dyspnea on exertion, Former smoker, Gout, Hyperlipidemia, Hypertension, Obesity, MARCELA on CPAP, Right knee pain, Skin cancer, and Wears glasses. Past Surgical History: She has a past surgical history that includes Cardiac catheterization; Hysterectomy; Appendectomy; Tonsillectomy; Gallbladder surgery; Procedure on Brain; and ARTHROPLASTY,KNEE (Right, 08/23/2024). Social History: She reports that she has quit smoking. Her smoking use included cigarettes. She has never used smokeless tobacco. She reports that she does not drink alcohol and does not use drugs. Family History: Her family history is not on file. Allergies: Codeine, Latex, Penicillin, Byetta [Exenatide], Cephalosporins, Doxycycline, Glyburide, Levaquin [Levofloxacin], Levbid [Hyoscyamine Sulfate], Oxycodone, Percodan [Oxycodone-Aspirin], and Sulfa (Sulfonamide Antibiotics) Medications: Medications Prior to Admission Medication Sig Dispense Refill Last Dose/Taking albuterol 2.5 mg /3 mL (0.083 %) nebulizer solution Inhale 3 mLs (2.5 mg total) by nebulization every 4 (four) hours as needed. Past Week Evening albuterol 90 mcg/actuation inhaler Inhale 2 puffs by mouth every 6 (six) hours as needed. Past WeekMorning allopurinoL (ZYLOPRIM) 100 MG tablet Take 1 tablet (100 mg total) by mouth daily. 08/22/2024 at 11:00PM cholecalciferol, vitamin D3, 2,000 unit tab Take 1 tablet (2,000 Units total) by mouth daily. 08/22/2024 Morning insulin aspart U-100 (NovoLOG U-100 Insulin aspart) 100 unit/mL injection Inject 15 Units under theskin 3 (three) times daily before meals. 08/22/2024 Evening Lantus Solostar U-100 Insulin 100 unit/mL (3 mL) inpn Inject 40 Units under the skin 2 (two) times daily. 08/22/2024 at 11:00 PM ondansetron (ZOFRAN) 4 MG tablet Take 1 tablet (4 mg total) by mouth every 8 (eight) hours as needed. Past Month Bedtime OXYGEN-AIR DELIVERY SYSTEMS MISC 2 liter at night time. . Past Week spironolactone (ALDACTONE) 25 MG tablet Take 1 tablet (25 mg total) by mouth daily. 08/22/2024 at 11:00 PM torsemide (DEMADEX) 100 MG tablet Take 0.5 tablets (50 mg total) by mouth daily. 08/22/2024 at 11:00 PM traMADoL (ULTRAM) 50 mg tablet Take 1 tablet (50 mg total) by mouth every 6 (six) hours as needed for pain. 08/22/2024 Morning mupirocin (BACTROBAN) 2 % ointment 3 (three) times daily. Unknown Review of Systems Constitutional: Negative for chills and fever. Respiratory: Negative for shortness of breath and wheezing. Cardiovascular: Negative for chest pain and palpitations. Musculoskeletal: Positive for arthralgias and gait problem. Skin: Positive for rash. Vitals: Blood pressure (!) 166/72, pulse 69, temperature 97.4 ??F (36.3 ??C), temperature source Oral, resp. rate 20, height 1.6 m (5' 2.99 ), weight 110.6 kg (243 lb 12.6 oz), SpO2 96%. Physical Exam Vitals and nursing note reviewed. Constitutional: General: She is not in acute distress. Appearance: Normal appearance. She is morbidly obese. HENT: Head: Normocephalic and atraumatic. Cardiovascular: Rate and Rhythm: Normal rate and regular rhythm. Pulses: Normal pulses. Heart sounds: Normal heart sounds. Pulmonary: Effort: Pulmonary effort is normal. No respiratory distress. Breath sounds: Normal breath sounds. No wheezing or rales. Comments: 2L NC Abdominal: General: Abdomen is flat. There is no distension. Palpations: Abdomen is soft. Tenderness: There is no abdominal tenderness. Musculoskeletal: Right lower leg: No edema. Left lower leg: No edema. Skin: General: Skin is warm and dry. Capillary Refill: Capillary refill takes less than 2 seconds. Findings: Rash (erythematous skin eruption between abdominal folds) present. Neurological: General: No focal deficit present. Mental Status: She is alert and oriented to person, place, and time. Mental status is at baseline. Motor: No weakness. Psychiatric: Mood and Affect: Mood normal. Assessment & Plan Principal Problem: Osteoarthritis, knee Right knee osteoarthritis -POD 0 PLAN -Orthopaedic surgery following. -Advance diet as tolerated and activity per surgery recommendations. -GI/VTE prophylaxis per surgery. -Adequate pain control with parenteral analgesics per Dr. Olmos. -As needed antiemetic with parenteral Zofran 4 mg every 8hrs for nausea. Chronic hypoxic respiratory failure Uncontrolled asthma / COPD with frequent exacerbations -On 2L NC at baseline. Titrate based on oxygen saturation. -Duonebs as needed. Chronic diastolic heart failure -No echo to review, report per PAT testing. -Holding home Aldactone and Demadex for now until am labs to assess renal function. CAD Chronic LBBB -S/p [facility] 07/2019 with mild CAD. -Follow up with order entry technician per recommendations. CKD -sCr 1.52 at pre admit testing. -BMP in am. Type II diabetes mellitus Last A1c 08/09/2024 7.7%. -Home Lantus 40u BID + Lispro 15u AC. -Start Lantus 10u BID + SSI Q6h while at reduced diet. Titrate as indicated. MARCELA -Continue home CPAP pm. Morbid obesity -BMI 43.19. Complicates all aspects of care. Gout -Resume Allopurinol in am. Chronic pain -On home Tramadol. Pain regimen per ortho as above. Candidal intertrigo -Erythematous rash to abdominal skin folds. Denies pruritus or pain. -Discussed with RN to apply antifungal powder and apply skin barrier dressing to prevent friction and keep the area dry. Electronically signed by Luly Finnegan PA-C 08/23/2024 at 2:10 PM Cosigned by Chay Rogers MD at 08/24/2024 7:45 AM EDT documented in this encounter OR Notes * Op Note - Kiran Olmos MD - 08/23/2024 2:43 PM EDT Date: 08/23/2024 Procedures: Procedure(s): Right total knee replacement Slight Bruising noted at site of bovie pad removal, Left thigh Diagnosis: Pre-Op Diagnosis Codes: * Unilateral primary osteoarthritis, right knee [M17.11] Post-Op Diagnosis Codes: * Unilateral primary osteoarthritis, right knee [M17.11] Indications: Denisa Sanon is an 84 y.o. female . The risks, benefits, and alternatives of the above procedure were discussed and the patient has elected to proceed. Surgeons: Surgeons and Role: * Kiran Olmos MD - Primary Findings: Procedure Details: The patient was seen in the preoperative area. The site of surgery was properly noted/marked if necessary per policy. The patient has been actively warmed in preoperative area. Preoperative antibiotics have been ordered and given within 1 hours of incision. Venous thrombosis prophylaxis have been ordered including bilateral sequential compression devices to the operating room after regional general anesthesia sterile prep timeout IV antibiotics given elevation tourniquet to 250 after ministration of antibiotics TXA elevation tourniquet and then intermedial incision was made following standardsterile prep and drape 68 inches in length. Medial arthrotomy was performed and subperiosteal dissection back to the posterior medial corner the tibia medial lateral meniscus were excised ACL excisedPCL also excised patient-specific guides were used to cut the femur and tibia osteophytes removed undersurface resection of the patella 7 mm with 35 3 peg jig placed superior medial and the cut surface 3 drill holes made after completing the cuts we trialed showing an 8 mm tibial poly to be the best for stability and range of motion from 0-1 25 with good stability throughout the arc of motion patella tracking we punched the tibia irrigated the bony surface dried and carefully and cemented the final components in place excess cement was carefully removed the knee placed extension for curing ofthe cement we then once the cemented hardened placed the final poly and impacted it irrigated copiously Betadine wash copious irrigation layered closure after placing local anesthetic in the deep tissues we placed cellular rate collagen powder 1 g for to enhance healing in this high risk patient with high BMI 43 in the subcu space on top of the deep layer closure completed the closure with placement of sterile dressing ice pack and transfer the patient to the recovery in good condition Anesthesia: General w/Block Estimated Blood Loss: * No values recorded between 08/23/2024 9:13 AM and 08/23/2024 2:43 PM * Total IV Fluids: mL Drains: * No LDAs found * Specimens: Specimens (From admission, onward) None Complications: None * No complications entered in OR log * Disposition: PACU - hemodynamically stable. Condition: stable Attending Attestation: I was present and scrubbed for the entire procedure. documented in this encounter Miscellaneous Notes * Hospital Course - Luly Finnegan PA-C - 08/25/2024 5:55 PM EDT Patient was admitted postop after right total knee replacement with Dr. Olmos 08/23/2024. The patient was recommended inpatient rehab given her assessment by PT/OT. Her pain medication was optimized. Chronic medications were continued as able. She is to take aspirin 81 mg twice daily for total of 45 days postoperatively for prophylaxis. The patient does have chronic kidney disease and creatinine was increased from baseline postoperatively. Initial home medications were held. She was started on metoprolol for better blood pressure control and given her chronic diastolic heart failure. Resumed Aldactone and Torsemide once renal function returned to baseline. Her insulin regimen has been adjusted from her home dosing. The patient is morbidly obese. She was found to have candidal intertrigo beneath abdominal fold. Continue miconazole powder and application of skin barrier dressing to prevent friction and keep the area dry. The patient is hemodynamically stable and ready for next level of care. She will be discharging to [facility] rehab. * Plan of Care - Tee Snow - 08/25/2024 10:52 AM EDT Problem: Compromised Skin Integrity Goal: LTG - Patient will be free from infection Outcome: Progressing Goal: LTG - Patient will maintain/improve skin integrity through proper skin care techniques Outcome: Progressing Goal: LTG - Patient will demonstrate appropriate pressure relief techniques Outcome: Progressing Goal: LTG - Patient will demonstrate appropriate skin care techniques Outcome: Progressing Goal: LTG - Patient will be free from infection Outcome: Progressing Goal: STG - Patient demonstrates skin care/treatment/dressing change Outcome: Progressing Goal: STG - Patient will maintain good skin integrity Outcome: Progressing Goal: STG - Patient exhibits signs of wound healing. Outcome: Progressing Goal: STG - Patient demonstrates pressure reduction techniques Outcome: Progressing Goal: STG - Patient demonstrates preventative skin care measures Outcome: Progressing Problem: Knowledge Deficit Goal: Patient/family/caregiver demonstrates understanding of disease process, treatment plan, medications, and discharge instructions Description: Complete learning assessment and assess knowledge base. Outcome: Progressing Problem: Potential for Falls Goal: Patient will remain free of falls Description: Assess and monitor vitals signs, neurological status including level of consciousness and orientation. Reassess fall risk per hospital policy.Ensure arm band on, uncluttered walking paths in room, adequate room lighting, call light and overbed table within reach, bed in low position, wheels locked, side rails up per policy, and non-skid footwear provided. Outcome: Progressing * Plan of Care - Ministerio Ty RN - 08/24/2024 9:09 AM EDT Problem: Compromised Skin Integrity Goal: LTG - Patient will be free from infection Outcome: Progressing Goal: LTG - Patient will maintain/improve skin integrity through proper skin care techniques Outcome: Progressing Goal: LTG - Patient will demonstrate appropriate pressure relief techniques Outcome: Progressing Goal: LTG - Patient will demonstrate appropriate skin care techniques Outcome: Progressing Goal: LTG - Patient will be free from infection Outcome: Progressing Goal: STG - Patient demonstrates skin care/treatment/dressing change Outcome: Progressing Goal: STG - Patient will maintain good skin integrity Outcome: Progressing Goal: STG - Patient exhibits signs of wound healing. Outcome: Progressing Goal: STG - Patient demonstrates pressure reduction techniques Outcome: Progressing Goal: STG - Patient demonstrates preventative skin care measures Outcome: Progressing Problem: Knowledge Deficit Goal: Patient/family/caregiver demonstrates understanding of disease process, treatment plan, medications, and discharge instructions Description: Complete learning assessment and assess knowledge base. Outcome: Progressing Problem: Potential for Falls Goal: Patient will remain free of falls Description: Assess and monitor vitals signs, neurological status including level of consciousness and orientation. Reassess fall risk per hospital policy.Ensure arm band on, uncluttered walking paths in room, adequate room lighting, call light and overbed table within reach, bed in low position, wheels locked, side rails up per policy, and non-skid footwear provided. Outcome: Progressing * Plan of Care - Ministerio Ty RN - 08/23/2024 3:46 PM EDT Problem: Compromised Skin Integrity Goal: LTG - Patient will be free from infection Outcome: Progressing Goal: LTG - Patient will maintain/improve skin integrity through proper skin care techniques Outcome: Progressing Goal: LTG - Patient will demonstrate appropriate pressure relief techniques Outcome: Progressing Goal: LTG - Patient will demonstrate appropriate skin care techniques Outcome: Progressing Goal: LTG - Patient will be free from infection Outcome: Progressing Goal: STG - Patient demonstrates skin care/treatment/dressing change Outcome: Progressing Goal: STG - Patient will maintain good skin integrity Outcome: Progressing Goal: STG - Patient exhibits signs of wound healing. Outcome: Progressing Goal: STG - Patient demonstrates pressure reduction techniques Outcome: Progressing Goal: STG - Patient demonstrates preventative skin care measures Outcome: Progressing Problem: Knowledge Deficit Goal: Patient/family/caregiver demonstrates understanding of disease process, treatment plan, medications, and discharge instructions Description: Complete learning assessment and assess knowledge base. Outcome: Progressing Problem: Potential for Falls Goal: Patient will remain free of falls Description: Assess and monitor vitals signs, neurological status including level of consciousness and orientation. Reassess fall risk per hospital policy.Ensure arm band on, uncluttered walking paths in room, adequate room lighting, call light and overbed table within reach, bed in low position, wheels locked, side rails up per policy, and non-skid footwear provided. Outcome: Progressing documented in this encounter Plan of Treatment Not on file documented as of this encounter Procedures Procedure Name Priority Date/Time Associated Diagnosis Comments NOVA GLUCOSE POC Routine 08/26/2024 8:22 AM EDT NOVA GLUCOSE POC Routine 08/26/2024 4:58 AM EDT HEMOGLOBIN AND HEMATOCRIT Routine 08/26/2024 3:11 AM EDT BASIC METABOLIC PANEL Routine 08/26/2024 3:10 AM EDT NOVA GLUCOSE POC Routine 08/25/2024 8:20 PM EDT NOVA GLUCOSE POC Routine 08/25/2024 4:40 PM EDT NOVA GLUCOSE POC Routine 08/25/2024 11:2 5 AM EDT NOVA GLUCOSE POC Routine 08/25/2024 5:00 AM EDT CBC W/ AUTO DIFF Routine 08/25/2024 4:36 AM EDT BASIC METABOLIC PANEL Routine 08/25/2024 4:36 AM EDT NOVA GLUCOSE POC Routine 08/24/2024 8:40 PM EDT NOVA GLUCOSE POC Routine 08/24/2024 4:13 PM EDT NOVA GLUCOSE POC Routine 08/24/2024 10:5 7 AM EDT NOVA GLUCOSE POC Routine 08/24/2024 5:48 AM EDT CBC W/ AUTO DIFF Routine 08/24/2024 5:26 AM EDT BASIC METABOLIC PANEL Routine 08/24/2024 5:26 AM EDT NOVA GLUCOSE POC Routine 08/23/2024 9:25 PM EDT NOVA GLUCOSE POC Routine 08/23/2024 4:44 PM EDT NOVA GLUCOSE POC Routine 08/23/2024 4:00 PM EDT NOVA GLUCOSE POC Routine 08/23/2024 11:1 6 AM EDT OK ARTHRP KNE CONDYLE&PLATU MEDIAL&LAT COMPARTMENTS 08/23/2024 9:13 AM EDT Unilateral primary osteoarthritis, right knee Case Notes CONFORMIS NOVA GLUCOSE POC Routine 08/23/2024 6:43 AM EDT documented in this encounter Results * (ABNORMAL) Glucose, Nova Meter (08/26/2024 8:22 AM EDT) [facility] POC-GLUCOSE 157(H) 70 - 110 mg/dL 08/26/2024 8:23 AM EDT [facility] Comment: In the event of poor peripheral blood flow, venous or arterial blood should be used due to the potential of erroneous results. Notified Nurse RBV [employer] [id number] 08/26/2024 8:23 AM EDT [facility] Blood WHOLE BLOOD / Unknown 08/26/2024 8:22 AM EDT 08/26/2024 8:23 AM EDT Narrative [facility] - 08/26/2024 8:23 AM EDT [employer] ID is - [id number] Kiran Olmos MD POINT OF CARE TEST ORDERABLES Fi nal Result Performing Organization Address [facility] de Phone Number [facility] [address] [place] [address], [facility] [phone] * (ABNORMAL) Glucose, Nova Meter (08/26/2024 4:58 AM EDT) POC-GLUCOSE 138(H) 70 - 110 mg/dL 08/26/2024 4:59 AM EDT [facility] Comment: In the event of poor peripheral blood flow, venous or arterial blood should be used due to the potential of erroneous results. Notified Nurse [employer]BV [employer] [id number] 08/26/2024 4:59 AM EDT [facility] Blood WHOLE BLOOD / Unknown 08/26/2024 4:58 AM EDT 08/26/2024 4:59 AM EDT Narrative [facility] - 08/26/2024 4:59 AM EDT [employer] ID is - [id number] Kiran Olmos MD POINT OF CARE TEST ORDERABLES Fi nal Result Performing Organization Address [facility] Co de Phone Number [facility] [address] [place] [address], [facility] [phone] * Hemoglobin and hematocrit (08/26/2024 3:11 AM EDT) Hemoglobin 14.6 11.2 - 15.7 GM/DL 08/26/2024 3:15 AM EDT [facility] Hematocrit 44.3 34.1 - 44.9 % 08/26/2024 3:15 AM EDT [facility] Blood Venipuncture / Unknown 08/26/2024 3:11 AM EDT 08/26/2024 3:11 AM EDT us Luly Finnegan PA-C LAB BLOOD ORDERABLES Final Res ult [facility] [address] [employer] [address] [phone] * (ABNORMAL) Basic Metabolic Panel (08/26/2024 3:10 AM EDT) Sodium 136 136 - 146 meq/L 08/26/2024 3:34 AM EDT [facility] Potassium 4.0 3.5 - 5.1 meq/L 08/26/2024 3:34 AM EDT [facility] Chloride 100(L) 102 - 112 meq/L 08/26/2024 3:34 AM EDT [facility] CO2 32 21 - 32 meq/L 08/26/2024 3:34 AM EDT [facility] Anion Gap 8(L) 9 - 20 08/26/2024 3:34 AM EDT [facility] BUN 36(H) 7 - 22 mg/dL 08/26/2024 3:34 AM EDT [facility] Creatinine 1.22(H) 0.55 - 1.02 mg/dL 08/26/2024 3:34 AM EDT [facility] BUN/Creatinine 30(H) 8 - 20 08/26/2024 3:34 AM EDT [facility] Glucose 125(H) 74 - 106 mg/dL 08/26/2024 3:34 AM EDT [facility] Calcium 8.6 8.5 - 10.1 mg/dL 08/26/2024 3:34 AM EDT [facility] Osmolality Calc 281.8 mOsm/kg 3:34 AM EDT [facility] eGFR (mL/min/1.73m2) 43(L) >=60 mL/min/1.7 3m2 08/26/2024 3:34 AM EDT [facility] Comment:eGFR of <60 suggests chronic kidney disease if found over a 3 month period of time. eGFR <15 indicates renal failure. Blood Venipuncture / Unknown 08/26/2024 3:10 AM EDT 08/26/2024 3:10 AM EDT us Luly Finnegan PA-C LAB BLOOD ORDERABLES Final Res ult Performing Organization Address City/[facility]/ZIP Co de Phone Number [facility] [address] [place] [address], [facility] [phone] * (ABNORMAL) Glucose, Nova Meter (08/25/2024 8:20 PM EDT) POC-GLUCOSE 258(H) 70 - 110 mg/dL 08/25/2024 8:21 PM EDT [facility] Comment: In the event of poor peripheral blood flow, venous or arterial blood should be used due to the potential of erroneous results. Notified Nurse [employer]BV [employer] [id number] 08/25/2024 8:21 PM EDT [facility] Blood WHOLE BLOOD / Unknown 08/25/2024 8:20 PM EDT 08/25/2024 8:21 PM EDT Narrative [facility] - 08/25/2024 8:21 PM EDT [employer] ID is - [id number] us Kiran Olmos MD POINT OF CARE TEST ORDERABLES Fi nal Result Performing Organization Address [facility]/ZIP Co de Phone Number [facility] [address] [place] [address], [facility] [phone] * (ABNORMAL) Glucose, Nova Meter (08/25/2024 4:40 PM EDT) POC-GLUCOSE 224(H) 70 - 110 mg/dL 08/25/2024 4:42 PM EDT [facility] Comment:In the event of poor peripheral blood flow, venous or arterial blood should be used due to the potential of erroneous results. [employer] [id number] 08/25/2024 4:42 PM EDT [facility] Blood WHOLE BLOOD / Unknown 08/25/2024 4:40 PM EDT 08/25/2024 4:42 PM EDT Narrative [facility] - 08/25/2024 4:42 PM EDT [employer] ID is - [id number] Kiran Olmos MD POINT OF CARE TEST ORDERABLES Fi nal Result Performing Organization Address [facility] Co de Phone Number [facility] [address] [place] [address], [facility] [phone] * (ABNORMAL) Glucose, Nova Meter (08/25/2024 11:25 AM EDT) POC-GLUCOSE 231(H) 70 - 110 mg/dL 08/25/2024 11:30 AM EDT [facility] Comment: In the event of poor peripheral blood flow, venous or arterial blood should be used due to the potential of erroneous results. Notified Nurse RBV [employer] [id number] 08/25/2024 11:30 AM EDT [facility] Blood WHOLE BLOOD / Unknown 08/25/2024 11:25 AM EDT 08/25/2024 11:30 AM EDT Narrative [facility] - 08/25/2024 11:30 AM EDT [employer] ID is - [id number] Kiran Olmos MD POINT OF CARE TEST ORDERABLES Fi nal Result Performing Organization Address [facility] Co de Phone Number [facility] [address] [place] [address], [facility] [phone] * (ABNORMAL) Glucose, Nova Meter (08/25/2024 5:00 AM EDT) POC-GLUCOSE 193(H) 70 - 110 mg/dL 08/25/2024 5:00 AM EDT [facility] Comment: In the event of poor peripheral blood flow, venous or arterial blood should be used due to the potential of erroneous results. Notified Nurse RBV [employer] [id number] 08/25/2024 5:00 AM EDT [facility] Blood WHOLE BLOOD / Unknown 08/25/2024 5:00 AM EDT 08/25/2024 5:00 AM EDT Narrative [facility] - 08/25/2024 5:00 AM EDT [employer] ID is - [id number] us Kiran Olmos MD POINT OF CARE TEST ORDERABLES Fi nal Result [facility] [address] [employer] [address] [phone] * (ABNORMAL) Basic Metabolic Panel (08/25/2024 4:36 AM EDT) Sodium 133(L) 136 - 146 meq/L 08/25/2024 6:01 AM EDT [facility] Potassium 4.3 3.5 - 5.1 meq/L 08/25/2024 6:01 AM EDT [facility] Chloride 97(L) 102 - 112 meq/L 08/25/2024 6:01 AM EDT [facility] CO2 32 21 - 32 meq/L 08/25/2024 6:01 AM EDT [facility] Anion Gap 8(L) 9 - 20 08/25/2024 6:01 AM EDT [facility] BUN 40(H) 7 - 22 mg/dL 08/25/2024 6:01 AM EDT [facility] Creatinine 1.52(H) 0.55 - 1.02 mg/dL 08/25/2024 6:01 AM EDT [facility] BUN/Creatinine 26(H) 8 - 20 08/25/2024 6:01 AM EDT [facility] Glucose 182(H) 74 - 106 mg/dL 08/25/2024 6:01 AM EDT [facility] Calcium 9.2 8.5 - 10.1 mg/dL 08/25/2024 6:01 AM EDT [facility] Osmolality Calc 280.8 mOsm/kg 6:01 AM EDT [facility] eGFR (mL/min/1.73m2) 33(L) >=60 mL/min/1.7 3m2 08/25/2024 6:01 AM EDT [facility] Comment:eGFR of <60 suggests chronic kidney disease if found over a 3 month period of time. eGFR <15 indicates renal failure. Blood Venipuncture / Unknown 08/25/2024 4:36 AM EDT 08/25/2024 4:36 AM EDT us Luly Finnegan PA-C LAB BLOOD ORDERABLES Final Res ult [facility] [address] [phone] * (ABNORMAL) CBC with automated diff (08/25/2024 4:36 AM EDT) WBC 11.7(H) 3.9 - 10.0 K/ L 08/25/2024 4:54 AM EDT [facility] RBC 5.97 3.93 - 6.08 M/ L 08/25/2024 4:54 AM EDT [facility] Hemoglobin 17.6(H) 11.2 - 15.7 GM/DL 08/25/2024 4:54 AM EDT [facility] Hematocrit 54.0(H) 34.1 - 44.9 % 08/25/2024 4:54 AM EDT [facility] MCV 91 79 - 95 fL 08/25/2024 4:54 AM EDT [facility] MCH 29.5 25.6 - 32.2 pg 08/25/2024 4:54 AM EDT [facility] MCHC 32.6 32.2 - 36.5 GM/DL 08/25/2024 4:54 AM EDT [facility] RDW 14.9(H) 11.6 - 14.4 % 08/25/2024 4:54 AM EDT [facility] Platelets 119(L) 163 - 369 K/CU MM 08/25/2024 4:54 AM EDT [facility] MPV 9.7 9.4 - 12.4 fL 08/25/2024 4:54 AM EDT [facility] % Neutros 65 34 - 71 % 08/25/2024 4:54 AM EDT [facility] % Lymphs 18(L) 19 - 53 % 08/25/2024 4:54 AM EDT [facility] % Monos 15(H) 4 - 13 % 08/25/2024 4:54 AM EDT [facility] % Eos 1 1 - 7 % 08/25/2024 4:54 AM EDT [facility] % Baso 1 0 - 1 % [facility] Neutros 7.54(H) 1.56 - 6.13 K/ L 08/25/2024 4:54 AM EDT [facility] # Lymphs 2.12 1.18 - 3.74 K/ L 08/25/2024 4:54 AM EDT [facility] # Monos 1.79(H) 0.24 - 0.82 K/ L 08/25/2024 4:54 AM EDT [facility] # Eos 0.13 0.04 - 0.54 K/ L 08/25/2024 4:54 AM EDT [facility] # Baso 0.06 0.01 - 0.08 K/ L 08/25/2024 4:54 AM EDT [facility] Immature Granulocytes-Re lative 0.40 0.00 - 0.60 % 08/25/2024 4:54 AM [facility] # IG 0.05 0.00 - 0.05 K/uL 08/25/2024 4:54 AM [facility] Blood Venipuncture / Unknown 08/25/2024 4:36 AM EDT 08/25/2024 4:36 AM EDT [facility] - 08/25/2024 4:54 AM EDT When CBC w/ Auto Diff is ordered the lab will add a Manual Differential as a quality check at no additional charge if: Lymphocytes greater than seventy five percent with normal or increased WBC Monocytes greater than Fifteen percent Basophil greater than four percent Bands >10% or several immature myeloids are seen on scan Blast? Flag noted Atypical Lymph flag noted Kiran Olmos MD LAB BLOOD ORDERABLES Final Resul t Performing Organization Address [facility] Co de Phone Number [facility] [address] [phone] * (ABNORMAL) Glucose, Nova Meter (08/24/2024 8:40 PM EDT) POC-GLUCOSE 203(H) 70 - 110 mg/dL 08/24/2024 8:41 PM EDT [facility] Comment: In the event of poor peripheral blood flow, venous or arterial blood should be used due to the potential of erroneous results. Notified Nurse [employer]BV [employer] [id number] 08/24/2024 8:41 PM EDT [facility] Blood WHOLE BLOOD / Unknown 08/24/2024 8:40 PM EDT 08/24/2024 8:41 PM EDT Narrative [facility] - 08/24/2024 8:41 PM EDT [employer] ID is - [id number] Kiran Olmos MD POINT OF CARE TEST ORDERABLES Fi nal Result Performing Organization Address [facility] Co wy Phone Number [facility] [address] [place] [address], [facility] [phone] * (ABNORMAL) Glucose, Nova Meter (08/24/2024 4:13 PM EDT) POC-GLUCOSE 260(H) 70 - 110 mg/dL 08/24/2024 4:14 PM EDT [facility] Comment: In the event of poor peripheral blood flow, venous or arterial blood should be used due to the potential of erroneous results. Notified Nurse RBV [employer] [id number] 08/24/2024 4:14 PM EDT [facility] Blood WHOLE BLOOD / Unknown 08/24/2024 4:13 PM EDT 08/24/2024 4:14 PM EDT Narrative [facility] - 08/24/2024 4:14 PM EDT [employer] ID is - [id number] us Kiran Olmos MD POINT OF CARE TEST ORDERABLES Fi nal Result Performing Organization Address [facility] de Phone Number [facility] [address] [place] [address], [facility] [phone] * (ABNORMAL) Glucose, Nova Meter (08/24/2024 10:57 AM EDT) POC-GLUCOSE 243(H) 70 - 110 mg/dL 08/24/2024 10:58 AM EDT [facility] Comment: In the event of poor peripheral blood flow, venous or arterial blood should be used due to the potential of erroneous results. Notified Nurse RBV [employer] [id number] 08/24/2024 10:58 AM EDT [facility] Blood WHOLE BLOOD / Unknown 08/24/2024 10:57 AM EDT 08/24/2024 10:58 AM EDT Narrative [facility] - 08/24/2024 10:58 AM EDT [employer] ID is - [id number] us Kiran Olmos MD POINT OF CARE TEST ORDERABLES Fi nal Result Performing Organization Address [facility] de Phone Number [facility] [address] [place] [address], [facility] [phone] * (ABNORMAL) Glucose, Nova Meter (08/24/2024 5:48 AM EDT) POC-GLUCOSE 222(H) 70 - 110 mg/dL 08/24/2024 5:49 AM EDT [facility] Comment: In the event of poor peripheral blood flow, venous or arterial blood should be used due to the potential of erroneous results. Notified Nurse RBV [employer] [id number] 08/24/2024 5:49 AM EDT [facility] Blood WHOLE BLOOD / Unknown 08/24/2024 5:48 AM EDT 08/24/2024 5:49 AM EDT Narrative [facility] - 08/24/2024 5:49 AM EDT [employer] ID is - [id number] us Kiran Olmos MD POINT OF CARE TEST ORDERABLES Fi nal Result [facility] [address] [phone] * (ABNORMAL) CBC with Automated Diff (08/24/2024 5:26 AM EDT) WBC 13.3(H) 3.9 - 10.0 K/ L 08/24/2024 5:37 AM EDT [facility] RBC 5.44 3.93 - 6.08 M/ L 08/24/2024 5:37 AM EDT [facility] Hemoglobin 15.7 11.2 - 15.7 GM/DL 08/24/2024 5:37 AM EDT [facility] Hematocrit 47.8(H) 34.1 - 44.9 % 08/24/2024 5:37 AM EDT [facility] MCV 88 79 - 95 fL 08/24/2024 5:37 AM EDT [facility] MCH 28.9 25.6 - 32.2 pg 08/24/2024 5:37 AM EDT [facility] MCHC 32.8 32.2 - 36.5 GM/DL 08/24/2024 5:37 AM EDT [facility] RDW 14.3 11.6 - 14.4 % 08/24/2024 5:37 AM EDT [facility] Platelets 277 163 - 369 K/CU MM 08/24/2024 5:37 AM EDT [facility] MPV 9.3(L) 9.4 - 12.4 fL 08/24/2024 5:37 AM EDT [facility] % Neutros 83(H) 34 - 71 % 08/24/2024 5:37 AM EDT [facility] % Lymphs 8(L) 19 - 53 % 08/24/2024 5:37 AM EDT [facility] % Monos 8 4 - 13 % 08/24/2024 5:37 AM EDT [facility] % Eos 0(L) 1 - 7 % 08/24/2024 5:37 AM EDT [facility] % Baso 0 0 - 1 % 08/24/2024 5:37 AM EDT [facility] # Neutros 11.04(H) 1.56 - 6.13 K/ L 08/24/2024 5:37 AM EDT [facility] # Lymphs 1.10(L) 1.18 - 3.74 K/ L 08/24/2024 5:37 AM EDT [facility] # Monos 1.05(H) 0.24 - 0.82 K/ L 08/24/2024 5:37 AM EDT [facility] # Eos 0.00(L) 0.04 - 0.54 K/ L 08/24/2024 5:37 AM EDT [facility] # Baso 0.01 0.01 - 0.08 K/ L 08/24/2024 5:37 AM EDT [facility] Immature Granulocytes-Re lative 0.50 0.00 - 0.60 % 08/24/2024 5:37 AM EDT [facility] # IG 0.06(H) 0.00 - 0.05 K/uL 08/24/2024 5:37 AM EDT [facility] Blood Venipuncture / Unknown 08/24/2024 5:26 AM EDT 08/24/2024 5:26 AM EDT Narrative [facility] - 08/24/2024 5:37 AM EDT When CBC w/ Auto Diff is [...] MD LAB BLOOD ORDERABLES Final Resul t [facility] [address] [employer] [address] [phone] * (ABNORMAL) Basic Metabolic Panel (08/24/2024 5:26 AM EDT) Sodium 134(L) 136 - 146 meq/L 08/24/2024 5:56 AM EDT [facility] Potassium 4.3 3.5 - 5.1 meq/L 08/24/2024 5:56 AM T [facility] Chloride 97(L) 102 - 112 meq/L 08/24/2024 5:56 AM EDT [facility] CO2 32 21 - 32 meq/L 08/24/2024 5:56 AM EDT [facility] Anion Gap 9 9 - 20 08/24/2024 5:56 AM T [facility] BUN 41(H) 7 - 22 mg/dL 08/24/2024 5:56 AM T [facility] Creatinine 1.63(H) 0.55 - 1.02 mg/dL 08/24/2024 5:56 AM T [facility] BUN/Creatinine 25(H) 8 - 20 08/24/2024 5:56 AM T [facility] Glucose 230(H) 74 - 106 mg/dL 08/24/2024 5:56 AM T [facility] Calcium 9.5 8.5 - 10.1 mg/dL 08/24/2024 5:56 AM [facility] Osmolality Calc 285.7 mOsm/kg 5:56 AM T [facility] eGFR (mL/min/1.73m2) 31(L) >=60 mL/min/1.7 3m2 08/24/2024 5:56 AM T [facility] Comment:eGFR of <60 suggests chronic kidney disease if found over a 3 month period of time. eGFR <15 indicates renal failure. Blood Venipuncture / Unknown 08/24/2024 5:26 AM EDT 08/24/2024 5:26 AM EDT us Kiran Olmos MD LAB BLOOD ORDERABLES Final Resul t [facility] [address] [phone] * (ABNORMAL) Glucose, Nova Meter (08/23/2024 9:25 PM EDT) [facility] POC-GLUCOSE 361(H) 70 - 110 mg/dL 08/23/2024 11:14 PM EDT [facility] Comment: In the event of poor peripheral blood flow, venous or arterial blood should be used due to the potential of erroneous results. Notified Nurse [employer]BV [employer] [id number] 08/23/2024 11:14 PM EDT [facility] Blood WHOLE BLOOD / Unknown 08/23/2024 9:25 PM EDT 08/23/2024 11:14 PM EDT [facility] - 08/23/2024 11:14 PM EDT [employer] ID is - [id number] Kiran Olmos MD POINT OF CARE TEST ORDERABLES Fi nal Result Performing Organization Address [facility] Co de Phone Number [facility] [address] [phone] * (ABNORMAL) Glucose, Nova Meter (08/23/2024 4:44 PM EDT) [facility] POC-GLUCOSE 435(H) 70 - 110 mg/dL 08/23/2024 4:47 PM EDT [facility] Comment: In the event of poor peripheral blood flow, venous or arterial blood should be used due to the potential of erroneous results. Notified Nurse [employer]BV [employer] [id number] 08/23/2024 4:47 PM EDT [facility] Blood WHOLE BLOOD / Unknown 08/23/2024 4:44 PM EDT 08/23/2024 4:47 PM EDT Narrative [facility] - 08/23/2024 4:47 PM EDT [employer] ID is - [id number] us Kiran Olmos MD POINT OF CARE TEST ORDERABLES Fi nal Result Performing Organization Address [facility] Co de Phone Number [facility] [address] [place] [address], [facility] [phone] * (ABNORMAL) Glucose, Nova Meter (08/23/2024 4:00 PM EDT) [facility] POC-GLUCOSE 409(H) 70 - 110 mg/dL 08/23/2024 4:01 PM EDT [facility] Comment: In the event of poor peripheral blood flow, venous or arterial blood should be used due to the potential of erroneous results. Notified Nurse [employer]BV [employer] [id number] 08/23/2024 4:01 PM EDT [facility] Blood WHOLE BLOOD / Unknown 08/23/2024 4:00 PM EDT 08/23/2024 4:01 PM EDT [facility] - 08/23/2024 4:01 PM EDT [employer] ID is - [id number] Kiran Olmos MD POINT OF CARE TEST ORDERABLES Fi nal Result Performing Organization Address [facility] Co de Phone Number [facility] [address] [place] [address], [facility] [phone] * (ABNORMAL) Glucose, Nova Meter (08/23/2024 11:16 AM EDT) [facility] POC-GLUCOSE 227(H) 70 - 110 mg/dL 08/23/2024 11:18 AM EDT [facility] Comment:In the event of poor peripheral blood flow, venous or arterial blood should be used due to the potential of erroneous results. [employer] [id number] 08/23/2024 11:18 AM EDT [facility] Blood WHOLE BLOOD / Unknown 08/23/2024 11:16 AM EDT 08/23/2024 11:18 AM EDT [facility] - 08/23/2024 11:18 AM EDT [employer] ID is - [id number] us Kiran Olmos MD POINT OF CARE TEST ORDERABLES Fi nal Result Performing Organization Address [facility] Co de Phone Number [facility] [address] [phone] * (ABNORMAL) Glucose, Nova Meter (08/23/2024 6:43 AM EDT) POC-GLUCOSE 218(H) 70 - 110 mg/dL 08/23/2024 6:46 AM EDT [facility] Comment:In the event of poor peripheral blood flow, venous or arterial blood should be used due to the potential of erroneous results. [employer] [id number] 08/23/2024 6:46 AM EDT [facility] Blood WHOLE BLOOD / Unknown 08/23/2024 6:43 AM EDT 08/23/2024 6:46 AM EDT Narrative [facility] - 08/23/2024 6:46 AM EDT [employer] ID is - [id number] us Kiran Olmos MD POINT OF CARE TEST ORDERABLES Fi nal Result [facility] [address] [phone] documented in this encounter Visit Diagnoses Diagnosis Osteoarthritis, knee- Primary Osteoarthrosis, unspecified whether generalized or localized, lower leg documented in this encounter Admitting Diagnoses Diagnosis Osteoarthritis, knee Osteoarthrosis, unspecified whether generalized or localized, lower leg documented in this encounter Administered Medications Inactive Administered Medications - up to 3 most recent administrations Medication Order MAR Action Action Date Dose Rate Site acetaminophen (TYLENOL) tablet 650 mg 650 mg Every 6 hours PRN, oral, mild pain (1-3), Starting on Wed08/23/24 at 1300, Recommended maximum dose of acetaminophen is 4000 mg from all sources in 24 hours Given 08/24/2024 8:58 AM EDT 650 mg allopurinoL (ZYLOPRIM) tablet 100 mg 100 mg Daily, oral, First dose on Wed08/24/24 at 0900 Given 08/26/2024 9:46 AM EDT 100 mg Given 08/25/2024 9:18 AM EDT 100 mg Given 08/24/2024 8:44 AM EDT 100 mg aspirin chewable tablet 81 mg 81 mg 2 times daily, oral, First dose on Wed08/23/24 at 2000, For 45 days, Phase II/On Unit Given 08/26/2024 9:4 5 AM EDT 81 mg Given 08/25/2024 8:46 PM EDT 81 mg Given 08/25/2024 9:18 AM EDT 81 mg bisacodyL (DULCOLAX) EC tablet 5 mg 5 mg Once, oral, On Wed08/25/24 at 2030, For 1 dose, * DO NOT CRUSH THIS DOSAGE FORM * Given 08/25/2024 8:47 PM EDT 5 mg ceFAZolin (ANCEF) IVPB 2 g/50 mL D5W (premix) 2 g Every 8 hours scheduled, intravenous, Administer over 30 Minutes, First dose on Yari 08/24/24 at 1000, For 2 doses, PACU Cont. to Floor/ICU, Please choose an indication: Surgical Prophylaxis IVPB Started 08/24/2024 5:33 PM EDT 2 g 100 mL/hr IVPB Started 08/24/2024 10:21 AM EDT 2 g 100 mL/hr docusate sodium (COLACE) capsule 100 mg 100 mg 2 times daily, oral, First dose on Wed08/25/24 at 2100, * DO NOT CRUSH THIS DOSAGE FORM * Given 08/26/2024 9:45 AM EDT 100 mg Given 08/25/2024 8:48 PM EDT 100 mg fentaNYL PF (SUBLIMAZE) injection 25 mcg 25 mcg Every 5 min PRN, intravenous, moderate pain (4-6), max 4 doses, Starting on Wed08/23/24 at 0848, For 4 doses, 25 mcg, intravenous, every 5-10 mins prn pain 4-6, max 4 doses, PACU Given 08/23/2024 11:53 AM EDT 25 mcg Given 08/23/2024 11:43 AM EDT 25 mcg fentaNYL PF (SUBLIMAZE) injection 50 mcg 50 mcg Every 5 min PRN, intravenous, moderate pain (4-6), max 2 doses, Starting on Wed08/23/24 at 0848, For 2 doses, 50 mcg, intravenous, every 5-10 min prn pain 4-6, max 2 doses, PACU Given 08/23/2024 11:30 AM EDT 50 mcg hydrALAZINE (APRESOLINE) injection 10 mg 10 mg Every 4 hours PRN, intravenous, high blood pressure (specify), SBP >180, Starting on Wed08/24/24 at 1320, Hold if SBP < 100 mmHg, DBP < 50 mmHg, or patient is on pressor. Look-alike/Sound-alike medication HYDROmorphone (DILAUDID) injection 0.5 mg 0.5 mg Every 5 min PRN, intravenous, severe pain (7-10), max 4 doses, Starting on Wed08/23/24 at 0848, For 4 doses, O.5 mg, intravenous, every 5-10 mins pain 7-10, max 4 doses, PACU Given 08/23/2024 12:08 PM EDT 0.5 mg Given 08/23/2024 12:02 PM EDT 0.5 mg Given 08/23/2024 9:57 AM EDT 0.5 mg insulin glargine (LANTUS) injection 10 Units 10 Units 2 times daily, subcutaneous, First dose on Wed08/24/24 at 0900, Before holding basal insulin, contact provider for approval to hold. Given 08/24/2024 9:05 AM EDT 10 Units Right Arm insulin glargine (LANTUS) injection 12 Units 12 Units 2 times daily, subcutaneous, First dose on Wed08/25/24 at 1030 Given 08/25/2024 10:00 AM EDT 12 Units Right Arm insulin glargine (LANTUS) injection 14 Units 14 Units 2 times daily, subcutaneous, First dose (after last modification) on Wed08/25/24 at 2100 Given 08/26/2024 9:46 AM EDT 14 Units Abdominal Tissue Given 08/25/2024 8:48 PM EDT 14 Units Ab dominal Tissue insulin glargine (SEMGLEE) injection 10 Units 10 Units 2 times daily, subcutaneous, First dose on Wed08/23/24 at 2230 Given 08/23/2024 10:16 PM EDT 10 Units Abdominal Tissue insulin glargine-yfgn (SEMGLEE) solution 12 Units 12 Units 2 times daily, subcutaneous, First dose (after last reorder) on Wed08/24/24 at 2200 Given 08/24/2024 10:22 PM EDT 12 Units Abdominal Tissue insulin lispro (HUMALOG, ADMELOG) injection 0-14 Units 0-14 Units 4 times daily (before meals and nightly), subcutaneous, First dose on Wed08/23/24 at 1730, If Blood Sugar is less than 180 between 5000-5723, DO NOT give corrective insulin unless otherwise ordered. Corrective Scale - Custom 0 units for fingerstick blood glucose LESS than 140 mg/dL 2 units subcutaneously once for fingerstick blood glucose [140] - [180] mg/dL 4 units subcutaneously once for fingerstick blood glucose [181] - [220] mg/dL 6 units subcutaneously once for fingerstick blood glucose [221] - [260] mg/dL 8 units subcutaneously once for fingerstick blood glucose [261] - [300] mg/dL 10 units subcutaneously once for fingerstick blood glucose [301] - [350] mg/dL 12 units subcutaneously once for fingerstick blood glucose [351] - [400] mg/dL 14 units subcutaneously once for fingerstick blood glucose [401] - [450] mg/dL Notify provider of glucose levels LESS than [70] and GREATER than [400] Given 08/25/2024 8:50 PM EDT 6 Units Abdominal Tissue Given 08/25/2024 5:28 PM EDT 6 Units Ri ght Arm Given 08/25/2024 11:34 AM EDT 6 Units L eft Arm ipratropium-albuteroL (DUO-NEB) 0.5 mg-3 mg(2.5 mg base)/3 mL nebulizer solution 3 mL 3 mL Every 6 hours PRN, nebulization, wheezing, Starting on Wed08/23/24 at 1352, RESPIRATORY THERAPY TREATMENT Protect from Light, What is the respiratory therapy Modality? Small volume Nebulization [id number] 100 mg Daily as needed, oral, [id number] TEST SCAN, Starting on Wed08/23/24 at 1458, [id number] TEST SCAN, Brand Name: COLACE, Generic name: DOCUSATE SODIUM, Dosage Form: capsule, Length of Therapy: N/A, missing formulary medication, How soon needed? (normally 72 hrs needed to procure): 0-24 hrs metoprolol succinate (TOPROL-XL) 24 hr tablet 25 mg 25 mg Daily, oral, First dose on Wed08/24/24 at 1400, Hold for systolic BP < 90 mmHg or for HR < 50 BPM Do Not Crush or Chew (Tablet may be split) Given 08/26/2024 9:45 AM EDT 25 mg Given 08/25/2024 9:18 AM EDT 25 mg Given 08/24/2024 1:39 PM EDT 25 mg miconazole (MICOTIN) 2 % powder topical, 2 times daily, First dose on Wed08/23/24 at 2100 Given 08/26/2024 9:47 AM EDT Given 08/25/2024 9:20 AM EDT Given 08/24/2024 8:45 AM EDT 1 Application midazolam (PF) (VERSED) injection 2 mg 2 mg Once as needed, intravenous, sedation, sedation for nerve block, Starting on Wed08/23/24 at 0848, For 1 dose, Look-alike/Sound-alike medication, Pre-op Given 08/23/2024 9:01 AM EDT 2 mg morphine injection 1 mg 1 mg Every 2 hour PRN, intravenous, severe pain, Starting on Wed08/23/24 at 1301 Given 08/25/2024 12:22 PM EDT 1 mg ondansetron (ZOFRAN) injection 4 mg 4 mg Every 8 hours PRN, intravenous, nausea, vomiting, Starting on Wed08/23/24 at 1233, Give IV if patient is unable to take orally. 1st line If inadequate response within 60 minutes, proceed to next-line agent for same PRN reason or contact provider if no further options ordered. For IV push, give over 2 - 5 minutes., Phase II/On Unit ondansetron (ZOFRAN-ODT) disintegrating tablet 4 mg 4 mg Every 8 hours PRN, oral, nausea, vomiting, Starting on Wed08/23/24 at 1233, 1st line. If inadequate response within 60 minutes, proceed to next-line agent for same PRN reason or contact provider if no further options ordered., Phase II/On Unit polyethylene glycol (GLYCOLAX) packet 17 g 17 g Daily, oral, First dose on Wed08/25/24 at 2030, DISSOLVE IN 8 OUNCES OF WATER, JUICE, SODA, COFFEE OR TEA Given 08/26/2024 9:59 AM EDT 17 g Given 08/25/2024 8:46 PM EDT 17 g pregabalin (LYRICA) capsule 150 mg 150 mg Once, oral, On Wed08/23/24 at 0800, For 1 dose, Pre-op Given 08/23/2024 8:28 AM EDT 150 mg spironolactone (ALDACTONE) tablet 25 mg 25 mg Daily, oral, First dose on Wed08/26/24 at 0900, Caution: Recommend wearing gloves during administration. DO NOT BREAK/CRUSH/CHEW. Employees who are , trying to become , or should not handle this medication. Dispose of trace medication (including packaging) in the BLACK [employer] ID bin. Given 08/26/2024 9:45 AM EDT 25 mg torsemide (DEMADEX) tablet 20 mg 20 mg Daily, oral, First dose on Wed08/25/24 at 1830 Given 08/26/2024 9:45 AM EDT 20 mg Given 08/25/2024 8:48 PM EDT 20 mg traMADoL (ULTRAM) tablet 50 mg 50 mg Every 4 hours PRN, oral, moderate pain (4-6), Starting on Wed08/23/24 at 1259 Given 08/25/2024 8:47 PM EDT 50 mg Given 08/25/2024 11:34 AM EDT 50 mg Given 08/24/2024 9:14 PM EDT 50 mg documented in this encounter Active and Recently Administered Medications Times are shown in EDT. Scheduled Medication Order 08/24/2024 08/25/2024 08/26/2024 allopurinoL (ZYLOPRIM) tablet 100 mg 100 mg Daily, oral, First dose on Wed08/24/24 at 0900 0844 (Given - Provider: Ministerio Ty RN) 0918 (Given - Provider: Tee Snow) 0946 (Given - Provider: Roz Judge, MARIXA) aspirin chewable tablet 81 mg 81 mg 2 times daily, oral, First dose on Wed08/23/24 at 2000, For 45 days, Phase II/On Unit 0844 (Given - Provider: Ministerio Ty RN)2113 (Given - Provider: Rupal Cole RN) 09 (Given - Provider: Tee nSow)2045 (Given - Provider: Rupal Cole RN) 0945 (Given - Provider: Roz Judge RN) bisacodyL (DULCOLAX) EC tablet 5 mg (COMPLETED) 5 mg Once, oral, On Wed08/25/24 at 2030, For 1 dose, * DO NOT CRUSH THIS DOSAGE FORM * 2046 (Given - Provider: Rupal Cole RN) ceFAZolin (ANCEF) IVPB 2 g/50 mL D5W (premix) (COMPLETED) 2 g Every 8 hours scheduled, intravenous, Administer over 30 Minutes, First dose on Wed08/24/24 at 1000, For 2 doses, PACU Cont. to Floor/ICU, Please choose an indication: Surgical Prophylaxis 1021 (IVPB Started - Provider: Ministerio Ty RN)1051 (IVPB Stopped - Provider: Ministerio Ty RN)1733 (IVPB Started - Provider: Ministerio Ty RN)1803 (IVPB Stopped - Provider: Ministerio Ty RN) docusate sodium (COLACE) capsule 100 mg 100 mg 2 times daily, oral, First dose on Wed08/25/24 at 2100, * DO NOT CRUSH THIS DOSAGE FORM * 2047 (Given - Provider: Rupal Cole RN) 0945 (Given - Provider: Roz Judge RN) insulin glargine (LANTUS) injection 10 Units (CANCELED) 10 Units 2 times daily, subcutaneous, First dose on Wed08/24/24 at 0900, Before holding basal insulin, contact provider for approval to hold. 09 (Given - Provider: Ministerio Ty RN) insulin glargine (LANTUS) injection 12 Units (CANCELED) 12 Units 2 times daily, subcutaneous, First dose on Wed08/25/24 at 1030 1000 (Given - Provider: Tee Snow) insulin glargine (LANTUS) injection 14 Units 14 Units 2 times daily, subcutaneous, First dose (after last modification) on Wed08/25/24 at 2100 2047 (Given - Provider: Rupal Cole RN) 0946 (Given - Provider: Roz Judge, MARIXA) insulin glargine-yfgn (SEMGLEE) solution 12 Units (CANCELED) 12 Units 2 times daily, subcutaneous, First dose (after last reorder) on Wed08/24/24 at 2200 2222 (Given - Provider: Rupal Cole RN) 1002 (Not Given - Provider: Tee Snow - Reason: Per MD Order) insulin lispro (HUMALOG, ADMELOG) injection 0-14 Units 0-14 Units 4 times daily (before meals and nightly), subcutaneous, First dose on Wed08/23/24 at 1730, If Blood Sugar is less than 180 between 8955-3142, DO NOT give corrective insulin unless otherwise ordered. Corrective Scale - Custom 0 units for fingerstick blood glucose LESS than 140 mg/dL 2 units subcutaneously once for fingerstick blood glucose [140] - [180] mg/dL 4 units subcutaneously once for fingerstick blood glucose [181] - [220] mg/dL 6 units subcutaneously once for fingerstick blood glucose [221] - [260] mg/dL 8 units subcutaneously once for fingerstick blood glucose [261] - [300] mg/dL 10 units subcutaneously once for fingerstick blood glucose [301] - [350] mg/dL 12 units subcutaneously once for fingerstick blood glucose [351] - [400] mg/dL 14 units subcutaneously once for fingerstick blood glucose [401] - [450] mg/dL Notify provider of glucose levels LESS than [70] and GREATER than [400] 0711 (Given - Provider: Rupal Cole RN)1216 (Given - Provider: Ministerio Ty RN)1703 (Given - Provider: Ministerio Ty RN)2114 (Given - Provider: Rupal Cole RN) 0655 (Given - Provider: Rupal Cole RN)1134 (Given - Provider: Tee Snow)1728 (Given - Provider: Tee Snow)2050 (Given - Provider: Rupal Cole RN) 0949 (Not Given - Provider: Roz Judge RN - Reason: Order parameters not met) metoprolol succinate (TOPROL-XL) 24 hr tablet 25 mg 25 mg Daily, oral, First dose on Wed08/24/24 at 1400, Hold for systolic BP < 90 mmHg or for HR < 50 BPM Do Not Crush or Chew (Tablet may be split) 1339 (Given - Provider: Ministerio Ty RN) 0918 (Given - Provider: Tee Snow) 0945 (Given - Provider: Roz Judge RN) miconazole (MICOTIN) 2 % powder topical, 2 times daily, First dose on Wed08/23/24 at 2100 0136 (Not Given - Provider: Rupal Cole RN - Reason: Dose previously given)0845 (Given - Provider: Ministerio Ty RN)2223 (Not Given - Provider: Rupal Cole RN - Reason: Dose previously given) 0920 (Given - Provider: Tee Snow)212 (Not Given - Provider: Rupal Cole RN - Reason: Dose previously given - Comment: given while changing patient) 0947 (Given - Provider: Roz Judge RN) polyethylene glycol (GLYCOLAX) packet 17 g 17 g Daily, oral, First dose on Wed08/25/24 at 2030, DISSOLVE IN 8 OUNCES OF WATER, JUICE, SODA, COFFEE OR TEA 2045 (Given - Provider: Rupal Cole RN) 0959 (Given - Provider: Roz Judge RN) spironolactone (ALDACTONE) tablet 25 mg 25 mg Daily, oral, First dose on Wed08/26/24 at 0900, Caution: Recommend wearing gloves during administration. DO NOT BREAK/CRUSH/CHEW. Employees who are , trying to become , or should not handle this medication. Dispose of trace medication (including packaging) in the BLACK waste bin. 0945 (Given - Provider: Roz Judge RN) torsemide (DEMADEX) tablet 20 mg 20 mg Daily, oral, First dose on Wed08/25/24 at 1830 2048 (Given - Provider: Rupal Cole RN) 0945 (Given - Provider: Roz Judge RN) PRN Medication Order 08/24/2024 08/25/2024 08/26/2024 acetaminophen (TYLENOL) tablet 650 mg 650 mg Every 6 hours PRN, oral, mild pain (1-3), Starting on Wed08/23/24 at 1300, Recommended maximum dose of acetaminophen is 4000 mg from all sources in 24 hours 0858 (Given - Provider: Ministerio Ty RN) dextrose 50% (D50W) injection 25 g 25 g Every 15 min PRN, intravenous, low blood glucose (specify value in prn comments), less than 41 mg/dL or 41-69 mg/dL and unable to take PO, Starting on Wed08/23/24 at 1351, Repeat blood glucose every 15 minutes until blood glucose greater than 70 mg/dL. Call Provider if not resolved after 2 treatments Repeat BS in 1 hour, retime for 1 hour after blood sugar greater than 70 mg/dL If less than 41: Repeat Finger stick within 5 minutes with same machine Send serum glucose level: Do not wait on lab to treat glucagon injection 1 mg 1 mg Every 15 min PRN, intraMUSCULAR, low blood glucose (specify value in prn comments), For Patients without IV access and blood glucose 41-69 mg/dL AND unable to take PO OR Less than 41 mg/dL, Starting on Wed08/23/24 at 1351, Caution: glucagon . Roll patient on their side when administering to prevent aspiration. Call Provider if not resolved after 2 treatments Repeat BS in 1 hour, retime for 1 hour after blood sugar greater than 70 mg/dL glucose chew tab 16 g 16 g Every 15 min PRN, oral, low blood glucose (specify value in prn comments), 41-69 mg/dL, Starting on Wed08/23/24 at 1351, For Patients who can take oral AND blood glucose 41-69 mg/dL Give 4 Tabs every 15 minutes. Recheck blood glucose every 15 minutes and repeat 15 grams of carbohydrates until blood glucose is above 70 mg/dL. Give Meal or Snack Call Provider if not resolved after 3 treatments Repeat BS in 1 hour, retime for 1 hour after blood sugar greater than 70 mg/dL hydrALAZINE (APRESOLINE) injection 10 mg 10 mg Every 4 hours PRN, intravenous, high blood pressure (specify), SBP >180, Starting on Yari 08/24/24 at 1320, Hold if SBP < 100 mmHg, DBP < 50 mmHg, or patient is on pressor. Look-alike/Sound-alike medication ipratropium-albuteroL (DUO-NEB) 0.5 mg-3 mg(2.5 mg base)/3 mL nebulizer solution 3 mL 3 mL Every 6 hours PRN, nebulization, wheezing, Starting on Wed08/23/24 at 1352, RESPIRATORY THERAPY TREATMENT Protect from Light, What is the respiratory therapy Modality? Small volume Nebulization [id number] 100 mg Daily as needed, oral, [id number] TEST SCAN, Starting on Wed08/23/24 at 1458, [id number] TEST SCAN, Brand Name: COLACE, Generic name: DOCUSATE SODIUM, Dosage Form: capsule, Length of Therapy: N/A, missing formulary medication, How soon needed? (normally 72 hrs needed to procure): 0-24 hrs morphine injection 1 mg 1 mg Every 2 hour PRN, intravenous, severe pain, Starting on Wed08/23/24 at 1301 1222 (Given - Provider: Tee Snow) ondansetron (ZOFRAN) injection 4 mg(Linked Group 1) 4 mg Every 8 hours PRN, intravenous, nausea, vomiting, Starting on Wed08/23/24 at 1233, Give IV if patient is unable to take orally. 1st line If inadequate response within 60 minutes, proceed to next-line agent for same PRN reason or contact provider if no further options ordered. For IV push, give over 2 - 5 minutes., Phase II/On Unit ondansetron (ZOFRAN-ODT) disintegrating tablet 4 mg(Linked Group 1) 4 mg Every 8 hours PRN, oral, nausea, vomiting, Starting on Wed08/23/24 at 1233, 1st line. If inadequate response within 60 minutes, proceed to next-line agent for same PRN reason or contact provider if no further options ordered., Phase II/On Unit traMADoL (ULTRAM) tablet 50 mg 50 mg Every 4 hours PRN, oral, moderate pain (4-6), Starting on Wed08/23/24 at 1259 1112 (Given - Provider: Ministerio Ty RN)1702 (Given - Provider: Ministerio Ty RN)2114 (Given - Provider: Rupal Cole RN) 1134 (Given - Provider: Tee Snow)2046 (Given - Provider: Rupal Cole RN) Linked Groups Order Group 1: ondansetron (ZOFRAN-ODT) disintegrating tablet 4 mgJump to med 4 mg Every 8 hours PRN, oral, nausea, vomiting, Starting on Wed08/23/24 at 1233, 1st line. If inadequate response within 60 minutes, proceed to next-line agent for same PRN reason or contact provider if no further options ordered., Phase II/On Unit Or ondansetron (ZOFRAN) injection 4 mgJump to med 4 mg Every 8 hours PRN, intravenous, nausea, vomiting, Starting on Wed08/23/24 at 1233, Give IV if patient is unable to take orally. 1st line If inadequate response within 60 minutes, proceed to next-line agent for same PRN reason or contact provider if no further options ordered. For IV push, give over 2 - 5 minutes., Phase II/On Unit documented in this encounter Care Teams Processing Analyst Relationship Specialty Start Date End Date Norma Au, CARAMEL CANDY MAKER HELPER [address] [facility] [place] [id number] PCP - General Nurse Practitioner 08/23/24 documented as of this encounter
--- OUTSIDE RECORDS SUMMARY | 2024-08-23 09:13 | XMS_ITS | Encounter Summary ---
Author Organization [employer] Address [address] [place] [address] Care Team Providers Care Wet Chemistry Analyst Name Role Phone Story, Norma Reynolds AGA Primary Care Provider [phone] Reason for Visit * Auth/Cert (Routine) Specialty Diagnoses / Procedures Referred By Contac t Referred To Contact Diagnoses Unilateral primary osteoarthritis, right knee M17.11 Procedures NE ARTHRP KNE CONDYLE&PLATU MEDIAL&LAT COMPARTMENTS ARTHROPLASTY, KNEE, UNILATERAL Kiran Olmos MD [address] [facility] 2nd [place] [address] Phone: tel: fax: Referral ID Status Reason Start Date Expiration Date Visits Re quested Visits Authorized [id number] 07/21/2024 1 1 Encounter Details Date Type Department Care Team (Late st Contact Info) Description 08/23/2024 9:13 AM EDT Anesthesia Event [facility] [address] [place] [phone] Patricia Dumont CRNA [address] [place] [address] Tayo Napier MD [address] [place] [address] Anesthesia Record Procedure Summary Procedure Name Responsible Anesthesiologist Anesthesia Start Time Anesthesia Stop Time RIGHT TOTAL KNEE ARTHROPLASTY (Right: Knee) Patricia Dumont CRNA 08/23/24 0913 08/23/24 1113 Events Date Time Event Comment 08/23/2024 0852 0913 An Start Patient identif ied and chart reviewed. 912 An Start Data Anesthesia mac cecil and monitors checked. 913 Pre-Induction Eval FDA anest hesia machine pre-use checkout completed. Patient status reassessed prior to start of anesthesia care. 0920 An Induction 0923 An Intubation 0924 Anesthesia Ready 0941 An Tourn Inflated 250mmHg 1015 An Tourn Deflated 1103 An Extubation 1107 an stop data 1111 Handoff to Receiving I compl eted my handoff to the receiving clinician during which we: 1. Identified the patient. 2. Identified the responsible provider. 3. Reviewed the pertinent medical history. 4. Discussed the surgical course. 5. Reviewed intra-op anesthesia management and issues during anesthesia. 6. Set expectations for post-procedure period. 7. Allowed opportunity for questions and acknowledgement of understanding. 1113 An Stop Meds Name Total lidocaine (XYLOCAINE) injection 2% 80 mg propofol (DIPRIVAN) injection 10 mg/mL b olus 100 mg fentaNYL (SUBLIMAZE) injection 100 mcg dexamethasone (PF) injection 10 mg/mL 8 mg ondansetron (ZOFRAN) injection vial 4 mg ropivacaine PF (NAROPIN) injection 0.5 % 25 mL clindamycin (CLEOCIN) IVPB 900 mg in dex trose 5 % 50 mL (premix) 900 mg tranexamic acid in NaCl,iso-os 1,000 mg/ 100 mL (10 mg/mL) IVPB 1,000 mg 1,000 mg tranexamic acid in NaCl,iso-os 1,000 mg/ 100 mL (10 mg/mL) IVPB 1,000 mg 1,000 mg electrolyte (PLASMA-LYTE/NORMOSOL) infus ion 200 mL cefazolin (ANCEF) injection 2 g HYDROmorphone (DILAUDID) injection 0.5 m g 0.5 mg * Agents Name O2 N2O Air SEVOFLURANE * Blood No blood administrations on file. Lines, Drains, and Airways Type Details Placement Removal Wound 08/23/24; 1047; Inci dimitry; Knee; Right; Cold Therapy Pad Applied 08/23/24 1047 by Ramesh Bermeo RN Peripheral IV Placement Date: 11/10; Placement Time: 824; Size: 22 G; Orientation: Left, Posterior; Location: Forearm; Site Prep: Chlorhexidine ; Local Anesthetic: None; Inserted by: Ronda CALVIN; Insertion attempts: 4; Securement Method: Taped; Removal Date: 08/24/24 08/23/24 08 by Kyle Merrill RN 08/24/24 0000 by Ministerio Ty RN ETT Placement Date 08/23; Placement Time 922 (created via procedure documentation); Removal Date 08/23/24; Removal Time 11008/23/[id number] by Patricia Dumont CRNA 08/23/24 110 by Patricia Dumont CRNA documented in this encounter Social History Tobacco Use Types Packs/Day Years [...] harm? Never 08/23/2024 How often does anyone, [place] family and friends, scream or curse at you? Never 08/23/2024 Housing Stability Answer Date Recorded What is your living situation today? I have a [facility] place to live 08/23/2024 Think about the [...] Do you speak a language other than Uzbek at [facility]? No 08/23/2024 Do you [...] on file documented as of this encounter OR Notes * Anesthesia Postprocedure Evaluation - Patricia Dumont CRNA - 08/23/2024 11:13 AM EDT Patient: Denisa Sanon Procedure Summary Date: 08/23/24 Room / Location: [facility] OR [facility] OPERATING ROOM Anesthesia Start: 912 Anesthesia Stop: Procedure: RIGHT TOTAL KNEE ARTHROPLASTY (Right: Knee) Diagnosis: Unilateral primary osteoarthritis, right knee (M17.11) Surgeons: Kiran Olmos MD Responsible Provider: Patricia Dumont CRNA Anesthesia Type: general ASA Status: 3 Anesthesia Type: general Vitals Value Taken Time BP 157/73 08/23/24 1110 Temp 97.8 08/23/24 1113 Pulse 68 08/23/24 1112 Resp 24 08/23/24 1112 SpO2 95 % 08/23/24 1112 Vitals shown include unfiled device data. Wt 110.6 kg (243 lb 12.8 oz) BMI 43.19 kg/m?? Anesthesia Post Evaluation Patient location during evaluation: PACU Patient participation: waiting for patient participation Level of consciousness: sleepy but conscious Pain score: 0 Pain management: adequate Multimodal analgesia pain management approach Airway patency: patent Cardiovascular status: stable Respiratory status: nasal cannula and spontaneous ventilation Hydration status: stable Color: [place] Activity: Moves 4 extremities Inotropes/Vasopressors: N/A No notable events documented. Patricia Dumont CRNA 08/23/2024 11:13 AM EDT * Anesthesia Procedure Notes - Patricia Dumont CRNA - 08/23/2024 9:33 AM EDT Associated Order(s): Intubation Intubation Authorized by: Patricia Dumont CRNA Performed by: Patricia Dumont CRNA Date/Time: 08/23/2024 9:23 AM Urgency: elective Indications and Patient Condition Indications for airway management: anesthesia Spontaneous ventilation: present Sedation level: general anesthesia Preoxygenated: yes Patient position: sniffing MILS maintained throughout: yes Mask difficulty assessment: 0 - not attempted no Final Airway Details Final airway type: supraglottic airway Supraglottic airway type: classic Size: 4 Number of attempts at approach: 1 Number of other approaches attempted: 0 * Anesthesia Procedure Notes - Tayo Napier MD - 08/23/2024 9:08 AM EDT Associated Order(s): Peripheral Nerve Block Peripheral Nerve Block Authorized by: Kiran Olmos MD Performed by: Tayo Napier MD Patient location during procedure: pre-op Start time: 08/23/2024 9:02 AM End time: 08/23/2024 9:06 AM Reason for block: at surgeon's request and post-op pain management Preanesthetic Checklist Completed: patient identified, IV checked, site marked, risks and benefits discussed, surgical consent, monitors and equipment checked, pre-op evaluation and timeout performed Peripheral Block Patient position: supine Prep: ChloraPrep Patient monitoring: heart rate, certified alcohol drug counselor and continuous pulse ox Block type: adductor canal Laterality: right Injection technique: single-shot Guidance: ultrasound guided Local infiltration: lidocaine Needle Needle type: short-bevel Needle gauge: 20 G Needle length: 10 cm Needle localization: ultrasound guidance Test dose: negative Medications Administered ropivacaine PF (NAROPIN) injection 0.5 % - perineural 25 mL - 08/23/2024 9:02:00 AM Assessment Injection assessment: negative aspiration for heme, no paresthesia on injection, incremental injection and local visualized surrounding nerve on ultrasound Paresthesia pain: none Heart rate change: no Slow fractionated injection: yes Additional Notes Procedural sedation given * Anesthesia Preprocedure Evaluation - Tayo Napier MD - 08/23/2024 8:48 AM EDT Anesthesia Pre Evaluation Ms. Denisa Sanon is a 84 y.o. 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 TONSILLECTOMY Allergies Allergen Reactions Codeine Hives Can't remember Latex Dermatitis Patient can't remember Penicillin Hives Byetta [Exenatide] Can't remember Cephalosporins Patient can't remember Doxycycline Patient can't remember Glyburide Patient can't remember Levaquin [Levofloxacin] Patient can't remember Levbid [Hyoscyamine Sulfate] Patient can't remember Oxycodone Can't remember Percodan [Oxycodone-Aspirin] Patient can't remember Sulfa (Sulfonamide Antibiotics) Patient can't remember NPO Status Date of last liquid: 08/22/24 Time of last liquid: 1700 Date of last solid: 08/22/24 Time of last solid: 0 Physical Exam Airway Mallampati: III Cardiovascular Rhythm: regular Rate: normal Dental Pulmonary Breath sounds clear to auscultation Abdominal (+) obese Anesthesia Plan ASA 3 Planned anesthetic: general (Adductor Canal Block requested by surgeon) Induction: intravenous Informed Consent- Anesthetic plan and risks discussed with patient. Plan discussed with ARTS EDUCATION TEACHER. documented in this encounter Plan of Treatment Not on file documented as of this encounter Procedures Procedure Name Priority Date/Time Associated Diagnosis Comments ANESTHESIA INTUBATION Routine 08/23/2024 9:23 AM EDT HC PERIPHERAL NERVE BLOCK SINGLE SHOT Routine 08/23/2024 9:02 AM EDT documented in this encounter Results * AN SINGLE LUMEN INTUBATION (08/23/2024 9:23 AM EDT) Narrative Patricia Dumont CRNA - 08/23/2024 9:23 AM EDT Patricia Dumont CRNA 08/23/2024 9:33 AM Intubation Authorized by: Patricia Dumont CRNA Performed by: Patricia Dumont CRNA Date/Time: 08/23/2024 9:23 AM Urgency: elective Indications and Patient Condition Indications for airway management: anesthesia Spontaneous ventilation: present Sedation level: general anesthesia Preoxygenated: yes Patient position: sniffing MILS maintained throughout: yes Mask difficulty assessment: 0 - not attempted no Final Airway Details Final airway type: supraglottic airway Supraglottic airway type: classic Size: 4 Number of attempts at approach: 1 Number of other approaches attempted: 0 Patricia Dumont CRNA ANESTHESIA ORDERABLES Final R esult * HC PERIPHERAL NERVE BLOCK SINGLE SHOT (08/23/2024 9:02 AM EDT) Tayo Quinonez MD - 08/23/2024 9:02 AM EDT Tayo Napier MD 08/23/2024 9:09 AM Peripheral Nerve Block Authorized by: Kiran Olmos MD Performed by: Tayo Napier MD Patient location during procedure: pre-op Start time: 08/23/2024 9:02 AM End time: 08/23/2024 9:06 AM Reason for block: at surgeon's request and post-op pain management Preanesthetic Checklist Completed: patient identified, IV checked, site marked, risks and benefits discussed, surgical consent, monitors and equipment checked, pre-op evaluation and timeout performed Peripheral Block Patient position: supine Prep: ChloraPrep Patient monitoring: heart rate, certified alcohol drug counselor and continuous pulse ox Block type: adductor canal Laterality: right Injection technique: single-shot Guidance: ultrasound guided Local infiltration: lidocaine Needle Needle type: short-bevel Needle gauge: 20 G Needle length: 10 cm Needle localization: ultrasound guidance Test dose: negative Medications Administered ropivacaine PF (NAROPIN) injection 0.5 % - perineural 25 mL - 08/23/2024 9:02:00 AM Assessment Injection assessment: negative aspiration for heme, no paresthesia on injection, incremental injection and local visualized surrounding nerve on ultrasound Paresthesia pain: none Heart rate change: no Slow fractionated injection: yes Additional Notes Procedural sedation given us Kiran Olmos MD ANESTHESIA ORDERABLES Final Resu lt documented in this encounter Visit Diagnoses Not on filedocumented in this encounter Administered Medications Inactive Administered Medications - up to 3 most recent administrations Medication Order MAR Action Action Date Dose Rate Site ceFAZolin (ANCEF) injection As needed, intravenous, Starting on Wed08/23/24 at 0948, Anesthesia Intra-op Given 08/23/2024 9:48 AM EDT 2 g clindamycin (CLEOCIN) IVPB 900 mg in dextrose 5 % 50 mL (premix) 900 mg Once, intravenous, Administer over 60 Minutes, On Wed08/23/24 at 0800, For 1 dose, Administer within 60 minutes of incision., Pre-op, Please choose an indication: Surgical Prophylaxis Given 08/23/2024 9:24 AM EDT 900 mg dexAMETHasone PF injection As needed, intravenous, Starting on Wed08/23/24 at 0924, Anesthesia Intra-op Given 08/23/2024 9:24 AM EDT 8 mg electrolyte-R (NORMOSOL-R) infusion intravenous, Continuous PRN, Starting on Wed08/23/24 at 0913, Anesthesia Intra-op New Bag 08/23/2024 9:13 AM EDT 100 mL/hr 100 mL/hr fentaNYL PF (SUBLIMAZE) injection As needed, intravenous, Starting on Wed08/23/24 at 0931, Anesthesia Intra-op Given 08/23/2024 9:49 AM EDT 50 mcg Given 08/23/2024 9:38 AM EDT 25 mcg Given 08/23/2024 9:31 AM EDT 25 mcg HYDROmorphone (DILAUDID) injection 0.5 mg 0.5 mg Every 5 min PRN, intravenous, severe pain (7-10), max 4 doses, Starting on Wed08/23/24 at 0848, For 4 doses, O.5 mg, intravenous, every 5-10 mins pain 7-10, max 4 doses, PACU Given 08/23/2024 12:08 PM EDT 0.5 mg Given 08/23/2024 12:02 PM EDT 0.5 mg Given 08/23/2024 9:57 AM EDT 0.5 mg lidocaine (XYLOCAINE) injection 2% As needed, intravenous, Starting on Wed08/23/24 at 0920, Anesthesia Intra-op Given 08/23/2024 9:20 AM EDT 80 mg ondansetron (ZOFRAN) injection As needed, intravenous, Starting on Wed08/23/24 at 1040, Anesthesia Intra-op Given 08/23/2024 10:40 AM EDT 4 mg propofol (DIPRIVAN) injection 10 mg/mL bolus As needed, intravenous, Starting on Wed08/23/24 at 0920, Anesthesia Intra-op Given 08/23/2024 9:20 AM EDT 100 mg ropivacaine PF (NAROPIN) 0.5 % (5 mg/mL) injection perineural, Starting on Wed08/23/24 at 0902, Anesthesia Intra-op Given 08/23/2024 9:02 AM EDT 25 mLs tranexamic acid in NaCl,iso-os 1,000 mg/100 mL (10 mg/mL) IVPB 1,000 mg 1,000 mg Once, intravenous, On Wed08/23/24 at 0800, For 1 dose, Infuse at a maximum rate of 100 mg/minute. Administer immediately preop for surgical prophylaxis: Orthopedic, Pre-op Given 08/23/2024 9:29 AM EDT 1,000 mg tranexamic acid in NaCl,iso-os 1,000 mg/100 mL (10 mg/mL) IVPB 1,000 mg 1,000 mg Once, intravenous, On Wed08/23/24 at 0800, For 1 dose, Administer over 10 Minutes. Administer Intraprocedure. To be given at beginning of wound closure if Surgeon determines necessary. For surgical prophylaxis: Orthopedic, Pre-op Given 08/23/2024 10:26 AM EDT 1,000 mg documented in this encounter Care Teams Wet Chemistry Analyst Relationship Specialty Start Date End Date Norma Au, ZINC PLATER [address] [facility] [place] [address] PCP - General Nurse Practitioner 08/23/24 documented as of this encounter
--- OUTSIDE RECORDS SUMMARY | 2024-08-23 09:15 | XMS_ITS | Encounter Summary ---
Author Organization [employer] Address [address] [place] [address] Care Team Providers Care Edge Banding Machine Offbearer Name Role Phone Story, Norma Reynolds AGA Primary Care Provider [phone] Reason for Visit * Auth/Cert (Routine) Specialty Diagnoses / Procedures Referred By Contac t Referred To Contact Diagnoses Unilateral primary osteoarthritis, right knee M17.11 Procedures MD ARTHRP KNE CONDYLE&PLATU MEDIAL&LAT COMPARTMENTS ARTHROPLASTY, KNEE, UNILATERAL Kiran Olmos MD [address] [place] [address] Phone: tel: fax: Referral ID Status Reason Start Date Expiration Date Visits Re quested Visits Authorized [id number] 07/21/2024 1 1 Encounter Details Date Type Department Care Team (Late st Contact Info) Description 08/23/2024 9:15 AM EDT - 08/23/2024 11:33 AM EDT Surgery [facility] [address] [place] [phone] Kiran Olmos MD [address] [place] [address] RIGHT TOTAL KNEE ARTHROPLASTY Social History Tobacco Use Types Packs/Day Years Used Date Smoking Tobacco: Former Cigarettes Smokeless Tobacco: Never Comments:Patient was a 3 ppd smoker x 20 years. Stopped smoking in Alcohol Use Standard Drinks/Week Comments Never 0 (1 standard drink = 0.6 oz pur e alcohol) Utilities Answer Date Recorded In the past 12 months, has t he [employer], gas, oil, or water company threatened to [...] Do you speak a language other than [place] at ho md? No 08/23/2024 Do you want help with [...] Sign Reading Time Taken Comments Blood Pressure 148/66 08/23/2024 11:03 AM EDT Pulse 64 08/23/2024 11:03 AM EDT Temperature 36.2 C (97.1 F) 08/23/2024 6:20 AM EDT Respiratory Rate 23 08/23/2024 11:0 3 AM EDT Oxygen Saturation 96% 08/23/2024 11: 03 AM EDT O2 2L/NC. Inhaled Oxygen Concentration - - Weight 110.6 kg (243 lb 12. 8 oz) 08/23/2024 6:20 AM EDT Height - - Body Mass Index 43.2 08/23/2024 2:38 PM [...] of care. She will be discharging to [facility] rehab. Studies Performed: Procedures Performed: Right total [...] Your Medications [place] - [address] [address] [address] [address], [facility] [phone] miconazole 2 % powder Information about where [...] Discharge Follow UP: Follow-up appointment Dr. Olmos [facility] orthopedics in 10 to 14 day Time [...] Barley. Bulgur wheat. Millet. Bran muffins. Popcorn. Fedscreek wafer crackers. Vegetables Sweet potatoes. Spinach. Kale. Artichokes. Cabbage. Broccoli. Green peas. Carrots. Squash. Fruits Berries. Pears. Apples. Oranges. Avocados. Prunes and raisins. Dried figs. Meats and Other Protein Sources [place], kidney, armando, and soybeans. Split peas. Lentils. [...] 1 nitesh has 11 g of protein. Rains seeds -- 1 oz has 5.5 g [...] the floor. Place frequently used items in wllr-dv-vszwl places Keep electrical cables out of the [...] ? Using the bathroom. ? Using household internet architect or toxic chemicals. ? Touching or taking [...] to keep your hands on the hand warehouse director. Make sure you are following any weight-bearing [...] walker by pressing down on the hand warehouse director. 4. If the walker is steady, press [...] walker by pressing down on the hand warehouse director. 4. If the walker is steady, press [...] 08/25/2024 5 documented as of this encounter Progress Notes * Roz Judge RN - 08/26/2024 11:44 AM EDT Pt discharged per physician order to transport to rehab facility [facility] [place]. Report was called to facility. IV was [...] SNF Transporation Provider: (P) Jacqueline Date of tire building supervisor: (P) 08/26/24 Time of tire building supervisor: (P) 1100 Weekend CM faxed DC summary to facility at [phone] and number for report sent to nursing at [phone]. Caliber black pickler today at 11am. CM to sign off. [...] BID Kiran Olmos MD 81 mg at 08/25/2418 dextrose 50% (D50W) injection 25 g 25 [...] mL nebulization Q6H PRN Luly Finnegan PA-C [id number] 100 mg oral Daily PRN Kiran Olmos [...] Demadex for now. CAD Chronic LBBB -S/p [facility] 07/2019 with mild CAD. -Follow up with car inspector per recommendations. CKD -sCr 1.52 at pre [...] discharge disposition (home, SNF/Rehab, etc): [facility] Additional discharge needs or delays: Transport scheduled tomorrow at 11 AM. Luly Finnegan PA-C 08/25/2024 at 6:10 PM Hospitalist CLIFFORD, [facility] Attending: Dr. Rogers Voice assurance sourcing manager technology (Evocha) is used for dictation of this note and sound-alike words might be erroneously placed despite reviewing the note for accuracy. Errors in dictation mayreflect use of voice recognition software and not all errors in assurance sourcing manager may have been detected prior to signing. Cosigned by Chay Rogers MD at 08/25/2024 5:41 PM EDT * Uvaldo Hadley RN - 08/25/2024 2:03 PM EDT Discharge Plan Progress Note MDR attended w/team this morning. Pt is medically ready for discharge. Precert was approved for [facility], however, they no longer have any open beds and was unable to advise when another bed would be open. I spoke with patient at bedside and she asked about going to [place] instead. Referral was sent to [facility] [place]. Facility accepted patient for tomorrow and precert was transferred to [facility]. Pt and family updated on plan and are agreeable. Caliber wheelchair scheduled for tomorrow at 11am Trip#[id number]. Weekend CM to fax DC summary tomorrow when available to [phone] attn: Bart Quiñones. Report# [phone] Uvaldo Hadley RN * Fabio Paulo, PT - 08/25/2024 11:25 AM EDT Images from the original note were not included. Inpatient Physical Therapy Treatment Patient Name: Denisa Sanon Date of : 1940 Date of Treatment: 08/25/24 Start Time 1110 Stop Time 1125 Session Duration 15 minutes CPT CODES: 15119 Gait training x 1 General Visit Type: [...] 08/25/24 - 3:53 PM EDT * Lana Escamilla, OTR/L - 08/25/2024 11:10 AM EDT Images from the original note were not included. Inpatient Occupational Therapy Treatment Note Patient Name: Denisa Sanon Date of : 1940 Date of Treatment: 08/25/24 Start Time: 1110 Stop Time: 1125 Session Duration: 15 minutes CPT CODES: 82020 ADL/self-care/home management This patient is a 84 [...] KNEE ARTHROPLASTY; Surgeon: Kiran Olmos MD; Location: [facility]; Service: Orthopedic Surgery; Laterality: Right; Slight Bruising [...] POC-GLUCOSE 260 (H) 70 - 110 mg/dL Ankle Patch Molder [id number] Glucose, Nova Meter Status: Abnormal Collection Time: 08/24/24 8:40 PM Result Value Ref Range POC-GLUCOSE 203 (H) 70 - 110 mg/dL Ankle Patch Molder [id number] CBC with automated diff Status: Abnormal Collection [...] POC-GLUCOSE 193 (H) 70 - 110 mg/dL Ankle Patch Molder [id number] CT lower extremity without IV contrast right [...] mL nebulization Q6H PRN Luly Finnegan PA-C [id number] 100 mg oral Daily PRN Kiran Olmos [...] daily in interim. CAD Chronic LBBB -S/p [facility] 07/2019 with mild CAD. -Follow up with car inspector per recommendations. CKD -sCr 1.52 at pre [...] PA-C 08/24/2024 at 6:10 PM Hospitalist CLIFFORD, [employer] Attending: Dr. Rogers Voice assurance sourcing manager technology (Evocha) is used for dictation of this note and sound-alike words might be erroneously placed despite reviewing the note for accuracy. Errors in dictation mayreflect use of voice recognition software and not all errors in assurance sourcing manager may have been detected prior to signing. Cosigned by Chay Rogers MD at 08/24/2024 6:37 PM EDT * Uvaldo Hadley RN - 08/24/2024 3:20 PM EDT Discharge Plan Progress Note MDR attended w/team this morning. Pt improved w/PT this morning. Spoke with Jessi at [facility], precert has been started. Awaiting approval at this time. Uvaldo Hadley RN * Fabio Bates PT - 08/24/2024 10:05 AM EDT Images from the original note were not included. Inpatient Physical Therapy Treatment Patient Name: Denisa Sanon Date of : 1940 Date of Treatment: 08/24/24 Start Time 0950 Stop Time 1005 Session Duration 15 minutes CPT CODES: 62429 Gait training x 1 General Visit Type: [...] Electronically signed by Fabio Bates, PT - 08/24/24 - 12:40 PM EDT * Lana Escamilla, OTR/Yariel - 08/24/2024 9:50 AM EDT Images from the original note were not included. Inpatient Occupational Therapy Treatment Note Patient Name: Denisa Sanon Date of : 1940 Date of Treatment: 08/24/24 Start Time: 0950 Stop Time: 1005 Session Duration: 15 minutes CPT CODES: 77905 ADL/self-care/home management This patient is a 84 [...] KNEE ARTHROPLASTY; Surgeon: Kiran Olmos MD; Location: [facility]; Service: Orthopedic Surgery; Laterality: Right; Slight Bruising [...] systems review, and clinical reasoning. CPT CODES: 98129 Eval mod complexity, 00682 ADL/self-care/home management , and Rehab each additional [...] is too lethargic/groggy post surgery. Outcome Measures [facility] Daily Living Functional Assessment How much help [...] (Minimal/Contact guard/Supervision/Setup) 4=None (Modified independent/Independent) The patient's [facility] raw score is 14. The patient currently has 59.67% functional impairment. Clinicians are most likely to recommend inpatient/SNF/intermodal customer service care for patients with scores between 6-17, [...] treatment, therapist communicated with nursing, clinical nursing assistant regarding patient's performance during therapy session. Patient [...] from the original note were not included. [facility] Physical Therapy Initial Evaluation Patient Name: Denisa Sanon Date of : 1940 Date of Evaluation: 08/23/24 In Time 1313 Out Time 1341 Session Duration 28 minutes Time spent for nursing collaboration, chart and systems review, and clinical reasoning. 10 minutes Total Time 38 minutes CPT CODES: 78193 Eval mod complex, 19777 Therapeutic/functional activity x 1, No charge Rehab [...] Score Raw score=6 t-Scale score=23.55 Standard error=4.57 CMS 0-100%=100.00% MDC=4.72 A raw score of >= [...] Pt left supine in care of staff research associate. Assessment Pt is s/p RTKA and was [...] 08/23/2024 12:43 PM EDT Patient transported to [facility]- report given to MARIXA Mandel- Patient stable [...] to person, place, and time. Difficult medical payment poster Psychiatric: Mood normal. Nursing note and vitals [...] Result Value Ref Range MRSA by PCR [facility] MRSA Not Detected by PCR MRSA Not [...] 65 BPM ATRIAL RATE (MCT) 65 BPM MD Interval 160 ms QRS-INTERVAL (MSEC) 154 ms QT Interval 438 ms QTC Interval 455 ms R AXIS (MCT) -32 degrees T Wave Murphy 121 degrees [place] Diagnosis Sinus rhythm with premature atrial complexes [...] understands risks. Encouraged her to FU. -Per nail sticker, Dr. Earl: Our mutual patient listed above [...] she does want rehab. Referral sent to [facility]. Family advised they could transport depending on how [employer] works with PT/OT during hospital stay. CM [...] assess renal function. CAD Chronic LBBB -S/p [facility] 07/2019 with mild CAD. -Follow up with car inspector per recommendations. CKD -sCr 1.52 at pre [...] of care. [facility] * Plan of Care - Tee Snow [...] POC Routine 08/23/2024 11:1 6 AM EDT MD ARTHRP KNE CONDYLE&PLATU MEDIAL&LAT COMPARTMENTS 08/23/2024 9:13 AM EDT Unilateral primary osteoarthritis, right knee Case Notes CONFORMIS NOVA GLUCOSE POC Routine 08/23/2024 6:43 AM EDT documented in this encounter Results * (ABNORMAL) Glucose, Nova Meter (08/26/2024 8:22 AM EDT) [facility] POC-GLUCOSE 157(H) 70 - 110 mg/dL 08/26/2024 8:23 AM EDT [facility] Comment: In the event of poor peripheral blood flow, venous or arterial blood should be used due to the potential of erroneous results. Notified Nurse RBV Ankle Patch Molder [id number] 08/26/2024 8:23 AM EDT [facility] Blood WHOLE BLOOD / Unknown 08/26/2024 8:22 AM EDT 08/26/2024 8:23 AM EDT Narrative [facility] - 08/26/2024 8:23 AM EDT Ankle Patch Molder ID is - [id number] Kiran Olmos MD POINT OF CARE TEST ORDERABLES Fi nal Result Performing Organization Address City/[facility] Co de Phone Number [facility] [address] [place] [address], [facility] [phone] * (ABNORMAL) Glucose, Nova Meter (08/26/2024 4:58 AM EDT) POC-GLUCOSE 138(H) 70 - 110 mg/dL 08/26/2024 4:59 AM EDT [facility] Comment: In the event of poor peripheral blood flow, venous or arterial blood should be used due to the potential of erroneous results. Notified Nurse RBV Ankle Patch Molder [id number] 08/26/2024 4:59 AM EDT [facility] Blood WHOLE BLOOD / Unknown 08/26/2024 4:58 AM EDT 08/26/2024 4:59 AM EDT Narrative [facility] - 08/26/2024 4:59 AM EDT Ankle Patch Molder ID is - [id number] Kiran Olmos MD POINT OF CARE TEST ORDERABLES Fi nal Result Performing Organization Address City/[facility]/ZIP Co de Phone Number [facility] [address] [place] [address], [facility] [phone] * Hemoglobin and hematocrit (08/26/2024 3:11 AM EDT) Hemoglobin 14.6 11.2 - 15.7 GM/DL 08/26/2024 3:15 AM EDT [facility] Hematocrit 44.3 34.1 - 44.9 % 08/26/2024 3:15 AM EDT [facility] Blood Venipuncture / Unknown 08/26/2024 3:11 AM EDT 08/26/2024 3:11 AM EDT us Luly Finnegan PA-C LAB BLOOD ORDERABLES Final Res ult [facility] [address] [phone] * (ABNORMAL) Basic Metabolic Panel (08/26/2024 3:10 AM EDT) Sodium 136 136 - 146 meq/L 08/26/2024 3:34 AM EDT [facility] Potassium 4.0 3.5 - 5.1 meq/L 08/26/2024 3:34 AM EDT [facility] Chloride 100(L) 102 - 112 meq/L 08/26/2024 3:34 AM EDT [facility] CO2 32 21 - 32 meq/L 08/26/2024 3:34 AM EDT [facility] Anion Gap 8(L) 9 - 20 08/26/2024 3:34 AM EDT [facility] BUN 36(H) 7 - 22 mg/dL 08/26/2024 3:34 AM EDT [facility] Creatinine 1.22(H) 0.55 - 1.02 mg/dL 08/26/2024 3:34 AM EDT [facility] BUN/Creatinine 30(H) 8 - 20 08/26/2024 3:34 AM EDT [facility] Glucose 125(H) 74 - 106 mg/dL 08/26/2024 3:34 AM EDT [facility] Calcium 8.6 8.5 - 10.1 mg/dL 08/26/2024 3:34 AM EDT [facility] Osmolality Calc 281.8 mOsm/kg 3:34 AM EDT [facility] eGFR (mL/min/1.73m2) 43(L) >=60 mL/min/1.7 3m2 08/26/2024 3:34 AM EDT [facility] Comment:eGFR of <60 suggests chronic kidney disease if found over a 3 month period of time. eGFR <15 indicates renal failure. Blood Venipuncture / Unknown 08/26/2024 3:10 AM EDT 08/26/2024 3:10 AM EDT us Lluy Finnegan PA-C LAB BLOOD ORDERABLES Final Res ult Performing Organization Address [facility] Co de Phone Number [facility] [address] [place] [address], [facility] [phone] * (ABNORMAL) Glucose, Nova Meter (08/25/2024 8:20 PM EDT) POC-GLUCOSE 258(H) 70 - 110 mg/dL 08/25/2024 8:21 PM EDT [facility] Comment: In the event of poor peripheral blood flow, venous or arterial blood should be used due to the potential of erroneous results. Notified Nurse RBV Ankle Patch Molder [id number] 08/25/2024 8:21 PM EDT [facility] Blood WHOLE BLOOD / Unknown 08/25/2024 8:20 PM EDT 08/25/2024 8:21 PM EDT Narrative [facility] - 08/25/2024 8:21 PM EDT Ankle Patch Molder ID is - [id number] us Kiran Olmos MD POINT OF CARE TEST ORDERABLES Fi nal Result Performing Organization Address [facility] Co de Phone Number [facility] [address] [place] [address], [facility] [phone] * (ABNORMAL) Glucose, Nova Meter (08/25/2024 4:40 PM EDT) POC-GLUCOSE 224(H) 70 - 110 mg/dL 08/25/2024 4:42 PM EDT [facility] Comment:In the event of poor peripheral blood flow, venous or arterial blood should be used due to the potential of erroneous results. Ankle Patch Molder [id number] 08/25/2024 4:42 PM EDT [facility] Blood WHOLE BLOOD / Unknown 08/25/2024 4:40 PM EDT 08/25/2024 4:42 PM EDT Narrative [facility] - 08/25/2024 4:42 PM EDT Ankle Patch Molder ID is - [id number] Kiran Olmos MD POINT OF CARE TEST ORDERABLES Fi nal Result Performing Organization Address [facility] Co de Phone Number [facility] [address] [place] [address], [facility] [phone] * (ABNORMAL) Glucose, Nova Meter (08/25/2024 11:25 AM EDT) POC-GLUCOSE 231(H) 70 - 110 mg/dL 08/25/2024 11:30 AM EDT [facility] Comment: In the event of poor peripheral blood flow, venous or arterial blood should be used due to the potential of erroneous results. Notified Nurse RBV Ankle Patch Molder [id number] 08/25/2024 11:30 AM EDT [facility] Blood WHOLE BLOOD / Unknown 08/25/2024 11:25 AM EDT 08/25/2024 11:30 AM EDT [facility] - 08/25/2024 11:30 AM EDT Ankle Patch Molder ID is - [id number] us Kiran Olmos MD POINT OF CARE TEST ORDERABLES Fi nal Result Performing Organization Address [facility] Co de Phone Number [facility] [address] [place] [address], [facility] [phone] * (ABNORMAL) Glucose, Nova Meter (08/25/2024 5:00 AM EDT) POC-GLUCOSE 193(H) 70 - 110 mg/dL 08/25/2024 5:00 AM EDT [facility] Comment: In the event of poor peripheral blood flow, venous or arterial blood should be used due to the potential of erroneous results. Notified Nurse RBV Ankle Patch Molder [id number] 08/25/2024 5:00 AM EDT [facility] Blood WHOLE BLOOD / Unknown 08/25/2024 5:00 AM EDT 08/25/2024 5:00 AM EDT Narrative [facility] - 08/25/2024 5:00 AM EDT Ankle Patch Molder ID is - [id number] us Kiran Olmos MD POINT OF CARE TEST ORDERABLES Fi nal Result [facility] [address] [phone] * (ABNORMAL) Basic Metabolic Panel (08/25/2024 4:36 AM EDT) Sodium 133(L) 136 - 146 meq/L 08/25/2024 6:01 AM EDT [facility] Potassium 4.3 3.5 - 5.1 meq/L 08/25/2024 6:01 AM EDT [facility] Chloride 97(L) 102 - 112 meq/L 08/25/2024 6:01 AM EDT [facility] CO2 32 21 - 32 meq/L 08/25/2024 6:01 AM EDT [facility] Anion Gap 8(L) 9 - 20 08/25/2024 6:01 AM EDT [facility] BUN 40(H) 7 - 22 mg/dL 08/25/2024 6:01 AM EDT [facility] Creatinine 1.52(H) 0.55 - 1.02 mg/dL 08/25/2024 6:01 AM EDT [facility] BUN/Creatinine 26(H) 8 - 20 08/25/2024 6:01 AM EDT [facility] Glucose 182(H) 74 - 106 mg/dL 08/25/2024 6:01 AM EDT [facility] Calcium 9.2 8.5 - 10.1 mg/dL 08/25/2024 6:01 AM EDT [facility] Osmolality Calc 280.8 mOsm/kg 6:01 AM EDT [facility] eGFR (mL/min/1.73m2) 33(L) >=60 mL/min/1.7 3m2 08/25/2024 6:01 AM EDT [facility] Comment:eGFR of <60 suggests chronic kidney disease if found over a 3 month period of time. eGFR <15 indicates renal failure. Blood Venipuncture / Unknown 08/25/2024 4:36 AM EDT 08/25/2024 4:36 AM EDT us Luly Finnegan PA-C LAB BLOOD ORDERABLES Final Res ult [facility] [address] [place] [address], [facility] [phone] * (ABNORMAL) CBC with automated diff (08/25/2024 4:36 AM EDT) WBC 11.7(H) 3.9 - 10.0 K/ L 08/25/2024 4:54 AM EDT [facility] RBC 5.97 3.93 - 6.08 M/ L 08/25/2024 4:54 AM EDT [facility] Hemoglobin 17.6(H) 11.2 - 15.7 GM/DL 08/25/2024 4:54 AM EDT [facility] Hematocrit 54.0(H) 34.1 - 44.9 % 08/25/2024 4:54 AM EDT [facility] MCV 91 79 - 95 fL 08/25/2024 4:54 AM EDT [facility] MCH 29.5 25.6 - 32.2 pg 08/25/2024 4:54 AM EDT [facility] MCHC 32.6 32.2 - 36.5 GM/DL 08/25/2024 4:54 AM EDT [facility] RDW 14.9(H) 11.6 - 14.4 % 08/25/2024 4:54 AM EDT [facility] Platelets 119(L) 163 - 369 K/CU MM 08/25/2024 4:54 AM EDT [facility] MPV 9.7 9.4 - 12.4 fL 08/25/2024 4:54 AM EDT [facility] % Neutros 65 34 - 71 % 08/25/2024 4:54 AM EDT [facility] % Lymphs 18(L) 19 - 53 % 08/25/2024 4:54 AM EDT [facility] % Monos 15(H) 4 - 13 % 08/25/2024 4:54 AM EDT [facility] % Eos 1 1 - 7 % 08/25/2024 4:54 AM EDT [facility] % Baso 1 0 - 1 % 08/25/2024 4:54 AM EDT [facility] # Neutros 7.54(H) 1.56 - 6.13 K/ L 08/25/2024 4:54 AM EDT [facility] # Lymphs 2.12 1.18 - 3.74 K/ L 08/25/2024 4:54 AM EDT [facility] # Monos 1.79(H) 0.24 - 0.82 K/ L 08/25/2024 4:54 AM EDT [facility] # Eos 0.13 0.04 - 0.54 K/ L 08/25/2024 4:54 AM T [facility] # Baso 0.06 0.01 - 0.08 K/ L 08/25/2024 4:54 AM T [facility] Immature Granulocytes-Re lative 0.40 0.00 - 0.60 % 08/25/2024 4:54 AM [facility] # IG 0.05 0.00 - 0.05 K/uL 08/25/2024 4:54 AM T [facility] Blood Venipuncture / Unknown 08/25/2024 4:36 AM EDT 08/25/2024 4:36 AM EDT Narrative [facility] - 08/25/2024 4:54 AM EDT When [...] ORDERABLES Final Resul t Performing Organization Address City/[facility]/ZIP Co de Phone Number [facility] [address] [phone] * (ABNORMAL) Glucose, Nova Meter (08/24/2024 8:40 PM EDT) POC-GLUCOSE 203(H) 70 - 110 mg/dL 08/24/2024 8:41 PM EDT [facility] Comment: In the event of poor peripheral blood flow, venous or arterial blood should be used due to the potential of erroneous results. Notified Nurse RBV Ankle Patch Molder [id number] 08/24/2024 8:41 PM EDT [facility] Blood WHOLE BLOOD / Unknown 08/24/2024 8:40 PM EDT 08/24/2024 8:41 PM EDT [facility] - 08/24/2024 8:41 PM EDT Ankle Patch Molder ID is - [id number] Kiran Olmos MD POINT OF CARE TEST ORDERABLES Fi nal Result Performing Organization Address City/[facility] Co de Phone Number [facility] [address] [phone] * (ABNORMAL) Glucose, Nova Meter (08/24/2024 4:13 PM EDT) POC-GLUCOSE 260(H) 70 - 110 mg/dL 08/24/2024 4:14 PM EDT [facility] Comment: In the event of poor peripheral blood flow, venous or arterial blood should be used due to the potential of erroneous results. Notified Nurse RBV Ankle Patch Molder [id number] 08/24/2024 4:14 PM EDT [facility] Blood WHOLE BLOOD / Unknown 08/24/2024 4:13 PM EDT 08/24/2024 4:14 PM EDT [facility] - 08/24/2024 4:14 PM EDT Ankle Patch Molder ID is - [id number] Kiran Olmos MD POINT OF CARE TEST ORDERABLES Fi nal Result Performing Organization Address [facility] Co de Phone Number [facility] [address] [place] [address], [facility] [phone] * (ABNORMAL) Glucose, Nova Meter (08/24/2024 10:57 AM EDT) POC-GLUCOSE 243(H) 70 - 110 mg/dL 08/24/2024 10:58 AM EDT [facility] Comment: In the event of poor peripheral blood flow, venous or arterial blood should be used due to the potential of erroneous results. Notified Nurse RBV Ankle Patch Molder [id number] 08/24/2024 10:58 AM EDT [facility] Blood WHOLE BLOOD / Unknown 08/24/2024 10:57 AM EDT 08/24/2024 10:58 AM EDT [facility] - 08/24/2024 10:58 AM EDT Ankle Patch Molder ID is - [id number] Kiran Olmos MD POINT OF CARE TEST ORDERABLES Fi nal Result Performing Organization Address [facility] de Phone Number [facility] [address] [place] [address] * (ABNORMAL) Glucose, Nova Meter (08/24/2024 5:48 AM EDT) POC-GLUCOSE 222(H) 70 - 110 mg/dL 08/24/2024 5:49 AM EDT [facility] Comment: In the event of poor peripheral blood flow, venous or arterial blood should be used due to the potential of erroneous results. Notified Nurse RBV Ankle Patch Molder [id number] 08/24/2024 5:49 AM EDT [facility] Blood WHOLE BLOOD / Unknown 08/24/2024 5:48 AM EDT 08/24/2024 5:49 AM EDT [facility] - 08/24/2024 5:49 AM EDT Ankle Patch Molder ID is - [id number] us Kiran Olmos MD POINT OF CARE TEST ORDERABLES Fi nal Result [facility] [address] [id number] [phone] * (ABNORMAL) CBC with Automated Diff (08/24/2024 5:26 AM EDT) WBC 13.3(H) 3.9 - 10.0 K/ L 08/24/2024 5:37 AM EDT [facility] RBC 5.44 3.93 - 6.08 M/ L 08/24/2024 5:37 AM EDT [facility] Hemoglobin 15.7 11.2 - 15.7 GM/DL 08/24/2024 5:37 AM EDT [facility] Hematocrit 47.8(H) 34.1 - 44.9 % 08/24/2024 5:37 AM EDT [facility] MCV 88 79 - 95 fL 08/24/2024 5:37 AM EDT [facility] MCH 28.9 25.6 - 32.2 pg 08/24/2024 5:37 AM EDT [facility] MCHC 32.8 32.2 - 36.5 GM/DL 08/24/2024 5:37 AM EDT [facility] RDW 14.3 11.6 - 14.4 % 08/24/2024 5:37 AM EDT [facility] Platelets 277 163 - 369 K/CU MM 08/24/2024 5:37 AM EDT [facility] MPV 9.3(L) 9.4 - 12.4 fL 08/24/2024 5:37 AM EDT [facility] % Neutros 83(H) 34 - 71 % 08/24/2024 5:37 AM EDT [facility] % Lymphs 8(L) 19 - 53 % 08/24/2024 5:37 AM EDT [facility] % Monos 8 4 - 13 % 08/24/2024 5:37 AM EDT [facility] % Eos 0(L) 1 - 7 % 08/24/2024 5:37 AM EDT [facility] % Baso 0 0 - 1 % 08/24/2024 5:37 AM EDT [facility] # Neutros 11.04(H) 1.56 - 6.13 K/ L 08/24/2024 5:37 AM EDT [facility] # Lymphs 1.10(L) 1.18 - 3.74 K/ L 08/24/2024 5:37 AM EDT [facility] # Monos 1.05(H) 0.24 - 0.82 K/ L 08/24/2024 5:37 AM EDT [facility] # Eos 0.00(L) 0.04 - 0.54 K/ L 08/24/2024 5:37 AM EDT [facility] # Baso 0.01 0.01 - 0.08 K/ L 08/24/2024 5:37 AM EDT [facility] Immature Granulocytes-Re lative 0.50 0.00 - 0.60 % 08/24/2024 5:37 AM EDT [facility] # IG 0.06(H) 0.00 - 0.05 K/uL 08/24/2024 5:37 AM EDT [facility] Blood Venipuncture / Unknown 08/24/2024 5:26 AM EDT 08/24/2024 5:26 AM EDT Narrative [facility] - 08/24/2024 5:37 AM EDT [...] MD LAB BLOOD ORDERABLES Final Resul t [facility] [address] [phone] * (ABNORMAL) Basic Metabolic Panel (08/24/2024 5:26 AM EDT) Sodium 134(L) 136 - 146 meq/L 08/24/2024 5:56 AM EDT [facility] Potassium 4.3 3.5 - 5.1 meq/L 08/24/2024 5:56 AM T [facility] Chloride 97(L) 102 - 112 meq/L 08/24/2024 5:56 AM EDT [facility] CO2 32 21 - 32 meq/L 08/24/2024 5:56 AM EDT [facility] Anion Gap 9 9 - 20 08/24/2024 5:56 AM EDT [facility] BUN 41(H) 7 - 22 mg/dL 08/24/2024 5:56 AM [facility] Creatinine 1.63(H) 0.55 - 1.02 mg/dL 08/24/2024 5:56 AM [facility] BUN/Creatinine 25(H) 8 - 20 08/24/2024 5:56 AM T [facility] Glucose 230(H) 74 - 106 mg/dL 08/24/2024 5:56 AM T [facility] Calcium 9.5 8.5 - 10.1 mg/dL 08/24/2024 5:56 AM [facility] Osmolality Calc 285.7 mOsm/kg 5:56 AM [facility] eGFR (mL/min/1.73m2) 31(L) >=60 mL/min/1.7 3m2 08/24/2024 5:56 AM T [facility] Comment:eGFR of <60 suggests chronic kidney disease if found over a 3 month period of time. eGFR <15 indicates renal failure. Blood Venipuncture / Unknown 08/24/2024 5:26 AM EDT 08/24/2024 5:26 AM EDT us Kiran Olmos MD LAB BLOOD ORDERABLES Final Resul t [facility] [address] [place] [address], [facility] [phone] * (ABNORMAL) Glucose, Nova Meter (08/23/2024 9:25 PM EDT) POC-GLUCOSE 361(H) 70 - 110 mg/dL 08/23/2024 11:14 PM EDT [facility] Comment: In the event of poor peripheral blood flow, venous or arterial blood should be used due to the potential of erroneous results. Notified Nurse RBV Ankle Patch Molder [id number] 08/23/2024 11:14 PM EDT [facility] Blood WHOLE BLOOD / Unknown 08/23/2024 9:25 PM EDT 08/23/2024 11:14 PM EDT Narrative [facility] - 08/23/2024 11:14 PM EDT Ankle Patch Molder ID is - [id number] Kiran Olmos MD POINT OF CARE TEST ORDERABLES Fi nal Result Performing Organization Address [facility] Phone Number [facility] [address] [phone] * (ABNORMAL) Glucose, Nova Meter (08/23/2024 4:44 PM EDT) POC-GLUCOSE 435(H) 70 - 110 mg/dL 08/23/2024 4:47 PM EDT [facility] Comment: In the event of poor peripheral blood flow, venous or arterial blood should be used due to the potential of erroneous results. Notified Nurse RBV Ankle Patch Molder [id number] 08/23/2024 4:47 PM EDT [facility] Blood WHOLE BLOOD / Unknown 08/23/2024 4:44 PM EDT 08/23/2024 4:47 PM EDT Narrative [facility] - 08/23/2024 4:47 PM EDT Ankle Patch Molder ID is - [id number] us Kiran Olmos MD POINT OF CARE TEST ORDERABLES Fi nal Result Performing Organization Address [facility] Co de Phone Number [facility] [address] [phone] * (ABNORMAL) Glucose, Nova Meter (08/23/2024 4:00 PM EDT) POC-GLUCOSE 409(H) 70 - 110 mg/dL 08/23/2024 4:01 PM EDT [facility] Comment: In the event of poor peripheral blood flow, venous or arterial blood should be used due to the potential of erroneous results. Notified Nurse RBV Ankle Patch Molder [id number] 08/23/2024 4:01 PM EDT [facility] Blood WHOLE BLOOD / Unknown 08/23/2024 4:00 PM EDT 08/23/2024 4:01 PM EDT Narrative [facility] - 08/23/2024 4:01 PM EDT Ankle Patch Molder ID is - [id number] us Kiran Olmos MD POINT OF CARE TEST ORDERABLES Fi nal Result Performing Organization Address [facility] Phone Number [facility] [address] [phone] * (ABNORMAL) Glucose, Nova Meter (08/23/2024 11:16 AM EDT) POC-GLUCOSE 227(H) 70 - 110 mg/dL 08/23/2024 11:18 AM EDT [facility] Comment:In the event of poor peripheral blood flow, venous or arterial blood should be used due to the potential of erroneous results. Ankle Patch Molder [id number] 08/23/2024 11:18 AM EDT [facility] Blood WHOLE BLOOD / Unknown 08/23/2024 11:16 AM EDT 08/23/2024 11:18 AM EDT Narrative [facility] - 08/23/2024 11:18 AM EDT Ankle Patch Molder ID is - [id number] us Kiran Olmos MD POINT OF CARE TEST ORDERABLES Fi nal Result Performing Organization Address [facility]/ZIP Co de Phone Number [facility] [address] [phone] * (ABNORMAL) Glucose, Nova Meter (08/23/2024 6:43 AM EDT) POC-GLUCOSE 218(H) 70 - 110 mg/dL 08/23/2024 6:46 AM EDT [facility] Comment:In the event of poor peripheral blood flow, venous or arterial blood should be used due to the potential of erroneous results. Ankle Patch Molder [id number] 08/23/2024 6:46 AM EDT [facility] Blood WHOLE BLOOD / Unknown 08/23/2024 6:43 AM EDT 08/23/2024 6:46 AM EDT Narrative [facility] - 08/23/2024 6:46 AM EDT Ankle Patch Molder ID is - [id number] us Kiran Olmos MD POINT OF CARE TEST ORDERABLES Fi nal Result [facility] [address] [place] [address] documented in this encounter Visit Diagnoses Diagnosis Unilateral primary osteoarthritis, right knee documented in this encounter Admitting Diagnoses Diagnosis [...] 100 mg Daily, oral, First dose on Yari 08/24/24 at 0900 Given 08/26/2024 9:46 AM EDT [...] Given 08/25/2024 9:18 AM EDT 81 mg bupivacaine-EPINEPHrine PF (MARCAINE w/EPI) 0.25 %-1:200,000 injection As needed, Starting on Wed08/23/24 at 1009, Intra-op Given 08/23/2024 10:09 AM EDT 40 mLs Ot her docusate sodium (COLACE) capsule 100 mg 100 mg 2 times daily, oral, First dose on Wed08/25/24 at 2100, * DO NOT CRUSH THIS DOSAGE FORM * Given 08/26/2024 9:45 AM EDT 100 mg Given 08/25/2024 8:48 PM EDT 100 mg hydrALAZINE (APRESOLINE) injection 10 mg 10 mg Every 4 hours PRN, intravenous, high blood pressure (specify), SBP >180, Starting on Wed08/24/24 at 1320, Hold if SBP < 100 mmHg, DBP < 50 mmHg, or patient is on pressor. Look-alike/Sound-alike medication hydrogen peroxide external solution 3% As needed, Starting on Wed08/23/24 at 1010, Intra-op Given 08/23/2024 10:10 AM EDT 1 Application Other insulin glargine (LANTUS) injection 14 Units 14 Units 2 times daily, subcutaneous, First dose (after last modification) on Wed08/25/24 at 2100 Given 08/26/2024 9:46 AM EDT 14 Units Abdominal Tissue Given 08/25/2024 8:48 PM EDT 14 Units Ab dominal Tissue insulin lispro (HUMALOG, ADMELOG) injection 0-14 Units 0-14 Units 4 times daily (before meals and nightly), subcutaneous, First dose on Wed08/23/24 at 1730, If Blood Sugar is less than 180 between 8819-5720, DO NOT give corrective insulin unless otherwise [...] the respiratory therapy Modality? Small volume Nebulization isopropyl alcohoL 70 % external solution As needed, Starting on Wed08/23/24 at 1010, Intra-op Given 08/23/2024 10:10 AM EDT 1 Application Other [id number] 100 mg Daily as needed, oral, [id number] TEST SCAN, Starting on Wed08/23/24 at 1458, [id number] TEST SCAN, Brand Name: COLACE, Generic name: [...] Given 08/24/2024 8:45 AM EDT 1 Application morphine injection 1 mg 1 mg Every [...] Given 08/25/2024 8:46 PM EDT 17 g povidone-iodine (BETADINE) topical solution 10% As needed, Starting on Wed08/23/24 at 1010, Intra-op Given 08/23/2024 10:10 AM EDT 1 Application Other spironolactone (ALDACTONE) tablet 25 mg 25 mg Daily, oral, First dose on Wed08/26/24 at 0900, Caution: Recommend wearing gloves during administration. DO NOT BREAK/CRUSH/CHEW. Employees who are , trying to become , or should not handle this medication. Dispose of trace medication (including packaging) in the BLACK waste bin. Given 08/26/2024 9:45 AM EDT 25 [...] 100 mg Daily, oral, First dose on Yari 08/24/24 at 0900 0844 (Given - Provider: Ministerio Ty RN) 0918 (Given - Provider: Tee Snow) 0946 (Given - Provider: Roz Judge, RN) aspirin chewable tablet 81 mg 81 mg 2 times daily, oral, First dose on Wed08/23/24 at 2000, For 45 days, Phase II/On Unit 0844 (Given - Provider: Ministerio Ty RN)2113 (Given - Provider: Rupal Cole RN) 09 (Given - Provider: Tee Snow)2045 (Given - Provider: Rupal Cole RN) 0945 (Given - Provider: Roz Judge, MARIXA) bisacodyL (DULCOLAX) EC tablet 5 mg (COMPLETED) [...] Cole RN) 0945 (Given - Provider: Roz Judge, MARIXA) insulin glargine (LANTUS) injection 10 Units (CANCELED) [...] Blood Sugar is less than 180 between 6269-4290, DO NOT give corrective insulin unless otherwise [...] Provider: Tee Snow)1728 (Given - Provider: Tee Snow)205 (Given - Provider: Rupal Cole RN) 0949 [...] previously given) 0920 (Given - Provider: Tee Snow)2129 (Not Given - Provider: Rupal Cole RN - Reason: Dose previously given - Comment: given while changing patient) 0947 (Given - Provider: Roz Judge MARIXA) polyethylene glycol (GLYCOLAX) packet 17 g 17 g Daily, oral, First dose on Wed08/25/24 at 2030, DISSOLVE IN 8 OUNCES OF WATER, JUICE, SODA, COFFEE OR TEA 2045 (Given - Provider: Rupal Cole, MARIXA) 0959 (Given - Provider: Roz Judge, MARIXA) spironolactone (ALDACTONE) tablet 25 mg 25 mg [...] oral, First dose on Wed08/25/24 at 1830 2047 (Given - Provider: Rupal Cole RN) [...] the respiratory therapy Modality? Small volume Nebulization [id number] 100 mg Daily as needed, oral, [id number] TEST SCAN, Starting on Wed08/23/24 at 1458, [id number] TEST SCAN, Brand Name: COLACE, Generic name: [...] Ministerio Ty RN)2114 (Given - Provider: Rupal Cole, MARIXA) 1134 (Given - Provider: Tee Snow)2047 (Given - Provider: Rupal Cole, MARIXA) Linked Groups Order Group 1: ondansetron ([id number]) [...] Unit documented in this encounter Care Teams Edge Banding Machine Offbearer Relationship Specialty Start Date End Date Norma Au, WELFARE INVESTIGATOR [address] [place] [id number] PCP - General Nurse Practitioner 08/23/24 documented as of this encounter
--- NOTE | 2024-10-03 23:38 | CT_ITS ---
PROCEDURE INFORMATION: Exam: CT Cervical Spine Without Contrast Exam date and time: 10/03/2024 11:56 PM Age: 84 years old Clinical indication: Injury or trauma; Fall TECHNIQUE: Imaging protocol: Computed tomography of the cervical spine without contrast. Radiation optimization: All CT scans at this facility use at least one of these dose optimization techniques: automated exposure control; mA and/or kV adjustment per patient size (includes targeted exams where dose is matched to clinical indication); or iterative reconstruction. COMPARISON: CT CERVICAL SPINE WO CON 06/11/2024 10:04 AM FINDINGS: Bones: No acute fracture. Severe multilevel degenerative changes without severe spinal stenosis. Lungs: Visualized lung apices are clear. Soft tissues: Visualized paravertebral soft tissues demonstrate no acute abnormality. IMPRESSION: No acute abnormality.
--- NOTE | 2024-10-03 23:38 | CT_ITS ---
PROCEDURE INFORMATION: Exam: CT Head Without Contrast Exam date and time: 10/03/2024 11:54 PM Age: 84 years old Clinical indication: Injury or trauma; Fall; Additional info: Fall no thinners TECHNIQUE: Imaging protocol: Computed tomography of the head without contrast. Radiation optimization: All CT scans at this facility use at least one of these dose optimization techniques: automated exposure control; mA and/or kV adjustment per patient size (includes targeted exams where dose is matched to clinical indication); or iterative reconstruction. COMPARISON: CT HEAD/BRAIN WO CON 06/11/2024 10:03 AM FINDINGS: Brain: Age-appropriate diffuse cerebral volume loss. No acute intracranial hemorrhage. No abnormal extra-axial fluid collection. No midline shift or mass effect. No acute large territory infarct. Extensive chronic white matter changes, likely to be chronic small-vessel ischemic changes. Stable left cerebellar encephalomalacia. Cerebral ventricles: No ventriculomegaly. Paranasal sinuses: Visualized paranasal sinuses are clear. Mastoid air cells: Visualized mastoid air cells are clear. Orbital cavities: Status post bilateral intra-ocular lens replacement. Bones: No acute fracture. Status post left suboccipital craniectomy. Soft tissues: Unremarkable. IMPRESSION: No acute intracranial abnormality.
[2024-10-03 23:39] VITALS: BP 163/60; PULSE 79; RESP 20; TEMP 36.9; O2SAT 93; BMI 43.7
[2024-10-03 23:40] VITALS: BP 123/62; BP 158/63; PULSE 78; PULSE 90
--- NOTE | 2024-10-03 23:40 | XR_ITS ---
PROCEDURE INFORMATION: Exam: XR Chest Exam date and time: 10/03/2024 11:47 PM Age: 84 years old Clinical indication: Pain; Other: Fall; Additional info: Mechanical fall TECHNIQUE: Imaging protocol: Radiologic exam of the chest. Views: 1 view. COMPARISON: CR XR CHEST PORTABLE PICC PLAC 12/10/2023 1:38 PM FINDINGS: Lungs: Unremarkable. No consolidation. Pleural spaces: Unremarkable. No pleural effusion. No pneumothorax. Heart/Mediastinum: Unremarkable. No cardiomegaly. Bones/joints: Unremarkable. IMPRESSION: Stable chest x-ray with no acute disease.
--- NOTE | 2024-10-03 23:41 | ECG_ITS ---
APPROVED REPORT Exam: Resting ECG HR:74 bpm ECG Measurements Heart Rate 74 AXES NJ 137 P -44 QRSd 149 QRS -32 QT 411 T 125 QTc 439 Conclusion SINUS RHYTHM WITH SINUS ARRHYTHMIA LEFT AXIS DEVIATION [QRS AXIS < -30] LEFT BUNDLE BRANCH BLOCK [120+ ms QRS DURATION, 80+ ms Q/S IN V1/V2, 85+ ms R IN I/aVL/V5/V6] No STEMI Electronically signed by : ROXANA PARR, 10/04/2024 07:13:57
--- NOTE | 2024-10-03 23:41 | HMH.EDGENADL ---
Discharge Plan Disposition Patient Disposition: Admitted Clinical Impressions Clinical Impression: Fall, Generalized weakness, Hypoglycemia, Adult failure to thrive Discharge ED Provider: Arron Woods Adult HPI General Chief complaint: Syncope Stated complaint: Fall Time Seen by Provider: 10/03/24 23:41 Mode of Arrival: EMS Source of Information: Patient Description of Symptoms (Recalled from ER Triage Doc. by RN): Pt fell at home x2 today History of Present Illness HPI narrative: 84-year-old female 1 month status post right knee replacement who lives independently at home and has been home for the last 3 days presents to the ER after fall. Patient fell once this morning stating she stood up, felt lightheaded, and fell to the floor but did not lose consciousness, did not strike her head, does not take any blood thinners. She was not evaluated after that fall but this evening she had a mechanical fall, unclear how but her right knee felt weaker while walking and caused her to fall. She did not strike her head or lose consciousness. No neck pain or back pain, no numbness, tingling, or weakness. She denies any room spinning dizziness and states she is not lightheaded at this time. She does report taking diuretics but has not missed any doses. She states she has COPD and asthma and typically wears 2 L nasal cannula at home. She is not short of breath. No recent fevers or chills, no headache, no chest pain or difficulty breathing, no abdominal pain, nausea, vomiting, or diarrhea. Patient has an old scab on the right knee which she states has been slow healing since surgery. No new pain, redness, or warmth in the knee. She states her knee feels the same as it has since surgery. Related Data Home Medications ?Medication ?Instructions ?Recorded ?Confirmed allopurinol 100 mg tablet 100 mg PO DAILY 05/15/20 06/11/24 cholecalciferol (vitamin D3) 50 1 tab PO DAILY 06/11/20 06/11/24 mcg (2,000 unit) chewable tablet albuterol sulfate 90 mcg/actuation 4 inh inhalation Q4HP PRN 06/11/24 06/11/24 aerosol inhaler shortness of breath or wheezing fluticasone 500 mcg-salmeterol 50 1 inh inhalation BIDRT 06/11/24 06/11/24 mcg/dose blistr powdr for inhalation (Advair Diskus) insulin aspart U-100 100 unit/mL 15 unit SQ TID 06/11/24 06/11/24 (3 mL) subcutaneous pen (Novolog FlexPen U-100 Insulin aspart) insulin glargine 100 unit/mL (3 40 unit SQ BID 06/11/24 06/11/24 mL) subcutaneous pen (Lantus Solostar U-100 Insulin) ondansetron HCl 4 mg tablet 4 mg PO Q8HP PRN Nausea And 06/11/24 06/11/24 Vomiting spironolactone 25 mg tablet 25 mg PO DAILY 06/11/24 06/11/24 tramadol 50 mg tablet 50 mg PO TIDP PRN Severe Pain 06/11/24 06/11/24 (Scale Score 7-10) Previous Rx's ?Medication ?Instructions ?Recorded hydrocodone 5 mg-acetaminophen 325 1 tab PO Q4HP PRN Mild To Moderate 06/12/24 mg tablet Pain (1-6) 3 days #11 tabs torsemide 100 mg tablet 100 mg PO DAILY 30 days #30 tabs 06/12/24 Allergies Allergy/AdvReac Type Severity Reaction Status Date / Time codeine (CODEINE) Allergy Mild Verified 02/29/24 11:55 iodine (IODINE) Allergy Mild Verified 02/29/24 11:55 latex (LATEX) Allergy Mild Verified 02/29/24 11:55 oxycodone (OXYCODONE) Allergy Mild Verified 02/29/24 11:55 Sulfa (Sulfonamide Allergy Mild Verified 02/29/24 11:55 Antibiotics) (SULFA (SULFONAMIDE ANTIBIOTICS)) Cephalosporins Allergy Verified 02/29/24 11:55 doxycycline Allergy Verified 02/29/24 11:55 exenatide (From [place]) Allergy Verified 02/29/24 11:55 glyburide Allergy Verified 02/29/24 11:55 hyoscyamine (From Levbid) Allergy Verified 02/29/24 11:55 levofloxacin (From Levaquin) Allergy Verified 02/29/24 11:55 PCN Allergy Mild Uncoded 02/29/24 11:55 PFSH PFS Disclaimer: The information contained in this section may have been updated after the patient was seen, as this information can be updated by other users. Medical History (Updated 10/04/24 @ 01:42 by Arron Woods MD) History of smoking 25-50 pack years Stopped smoking with greater than 20 pack year history Asthma MARCELA (obstructive sleep apnea) Diabetes Brain tumor Diastolic dysfunction CAD (coronary artery disease) HTN (hypertension) COPD (chronic obstructive pulmonary disease) Surgical History H/O cardiac catheterization H/O: hysterectomy History of appendectomy Hx of tonsillectomy History of cholecystectomy H/O oophorectomy Family History Other Hypertension Stroke Social History Smoking Status: Never smoker second hand exposure: No alcohol intake: never substance use type: denies use current occupational status: retired Travel in the last 8 weeks?: None household members: none housing: house caffeine: No Other Medical History Have you received the Flu Vaccine for this season: No Have you received the Pneumonia Vaccine: No ROS Obtained: Yes Systems reviewed as appropriate & no additional complaints except as documented per HPI Physical Exam General General appearance: alert, in no apparent distress and obese Head Head exam: atraumatic and normocephalic Eye Eye exam: Present PERRL and EOMI ENT ENT exam: Present mucous membranes moist Neck Neck exam: Present normal inspection and full ROM Chest Chest inspection: Present symmetric chest wall rise Respiratory Respiratory exam: Present normal lung sounds bilaterally; Absent respiratory distress, wheezes or stridor Cardiovascular Cardiovascular exam: Present regular rate and normal rhythm Abdominal Exam Abdominal exam: Present soft; Absent distention or tenderness Extremities Exam Extremities exam: Present full ROM, edema (+2 bilateral lower extremity pitting edema) and other (Right knee full replacement incision clean, dry, small wound in the center of the incision has well-healing granulation tissue, no signs of infection. Good range of motion of the right knee. Neurovascularly intact distally.) Neurological Exam Neurological exam: Present alert, oriented X3 and other (No nystagmus or cerebellar symptoms, GCS 15, NIH 0); Absent motor sensory deficit Psychiatric Psychiatric exam: Present normal affect and normal mood Skin Skin exam: Present warm and dry Medical Decision Making Medical Records Medical records reviewed: Yes I reviewed the patient's medical records. Screening: Per USPSTF and CDC recommendations, given the prevalence of disease in our region, it is our hospital?s policy to screen for HIV and viral Hepatitis for all patients aged 18 and over and those with ongoing risk factors. [place] Inquiry Pt receiving controlled substance: No Vital Signs: 10/03/24 23:39 10/03/24 23:40 10/04/24 01:00 Temperature 98.4 F Temperature Source Oral Pulse Rate 83 Pulse Rate [Orthostatic Lying Radial] 78 Pulse Rate [Orthostatic Sitting Right] 90 Pulse Rate [Right Brachial] 79 Respiratory Rate 20 Blood Pressure 133/69 Blood Pressure [Orthostatic Lying Right Arm] 123/62 Blood Pressure [Orthostatic Sitting] 158/63 H Blood Pressure [Right Arm] 163/60 H Blood Pressure Mean [Right Arm] 94 Blood Pressure Source [Right Arm] Automatic Cuff Blood Pressure Position [Right Arm] Sitting 02 Sat by Pulse Oximetry 93 L 99 Oxygen Delivery Method Room Air Lab Data Lab Results 10/03/24 23:38: VBG pH Cancelled, VBG pCO2 Cancelled, VBG pO2 Cancelled, VBG HCO3 Cancelled, VBG Total CO2 Cancelled, VBG O2 Saturation Cancelled, VBG Base Excess Cancelled, VBG Lactic Acid Cancelled 10/04/24 00:33: WBC 7.8, RBC 4.66, Hgb 13.8, Hct 42.8, MCV 91.8, MCH 29.6, MCHC 32.2, RDW 13.2, Plt Count 242, MPV 9.2, Neut % (Auto) 64.0, Lymph % (Auto) 22.2, [place] % (Auto) 10.1 H, Eos % (Auto) 3.0, Baso % (Auto) 0.3, Neut # (Auto) 5.0, Lymph # (Auto) 1.7, [place] # (Auto) 0.8, Eos # (Auto) 0.2, Baso # (Auto) 0.0, Sodium 133 L, Potassium 4.1, Chloride 100, Carbon Dioxide 33 H, Anion Gap 4.1 L, BUN 30 H, Creatinine 1.30 H, Estimated Creat Clear 26, Estimated GFR 39 L, Est GFR ( Amer) 47 L, Glucose 52 L, Calcium 10.0, Total Bilirubin 0.6, AST 31, ALT 18, Alkaline Phosphatase 76, Troponin I 0.08 H, NT-Pro-B Natriuret Pep 783 H, Total Protein 6.6, Albumin 3.8, Globulin 2.8, Albumin/Globulin Ratio 1.4 10/04/24 00:44: VBG pH 7.42 H, VBG pCO2 45.1, VBG pO2 87.3 H, VBG HCO3 28.5, VBG Total CO2 29.9 H, VBG O2 Saturation 97.1 H, VBG Base Excess 4.0 H, VBG Lactic Acid 2.2 H 10/04/24 00:33 10/04/24 00:33 Orders (Tests/Meds): ED MEDICATIONS Generic Name Dose Route Start Last Admin Trade Name Freq PRN Reason Stop Dose Admin Dextrose/Sodium Chloride 1,000 mls @ 100 mls/hr 10/04/24 00:45 10/04/24 00:42 Dextrose 10%-0.45% Nacl 1000ml IV 11/03/24 00:44 100 mls/hr .Q10H KISHOR Administration ORDERS Category Date Time Status CT cervical spine wo con Stat Cat Scan 10/03/24 23:[address] head/brain wo con Stat Cat Scan 10/03/24 23:38 Completed CXR --portable [XR chest portable] Stat Exams 10/03/24 23:40 Completed BNP [NT Pro Brain Natriuretic Pep.] Stat Lab 10/03/24 23:38 Completed CBC w/Auto Diff [Complete Blood Count Auto Diff] Stat Lab 10/03/24 23:38 Completed CMP [Comprehensive Metabolic Panel] Stat Lab 10/03/24 23:38 Completed Trop I [Troponin I] Stat Lab 10/03/24 23:38 Completed Urinalysis and Microscopic Stat Lab 10/03/24 23:40 Ordered Venous Blood Gas Routine RT 10/04/24 00:44 Completed ECG Request Stat Y 10/03/24 23:38 Completed Medical Decision Narrative: In summary, this 84-year-old female with comorbidities including a history of COPD on baseline nasal cannula, type 2 diabetes, hypertension, obesity presents to the emergency department today with fall. On initial evaluation patient is GCS 15, airway intact, bilateral breath sounds present with 2+ pulses throughout, patient has no areas of pain or tenderness, she does have 2+ pitting edema in her lower extremities, right knee replacement incision has small area of well-healing granulation tissue in the middle of the incision without signs of infection, no redness, swelling, good range of motion, neurovascularly intact throughout, no evidence of trauma to the head or neck but based on the patient's age cannot rule out intracranial or C-spine injury so CT scans have been ordered. Her lightheadedness could be from orthostatic hypotension, cardiac abnormality, electrolyte abnormality, arrhythmia, urinary tract infection, among others. Ruling out most morbid conditions for my assessment. CT head, C-spine, serum labs, cardiac workup had been ordered to rule out most morbid conditions. EKG first interpreted demonstrate sinus rhythm, rate 74, left axis deviation, normal AR and QTc, left bundle branch block present, no STEMI. ECG similar to previous ECG in November 2023 which I reviewed Patient was unable to fully participate in orthostatics because she could not stand with even a two-person assist at bedside. Orthostatics within the limitations of patient's abilities were unremarkable. Prior to labs resulting, patient complained of feeling like her blood sugar may be low. It was checked by fingerstick and was 47. Patient received food and drink as well as D10 half-normal saline started at 100 mL/h. I do not want to fluid overload the patient but do want to correct her hypoglycemia. Labs reviewed by me demonstrate no leukocytosis or anemia, normal platelets, VBG with pH 7.42, no hypercarbia, lactic slightly elevated at 2.2 which is nonspecific at this time, CMP with approximately baseline kidney dysfunction, troponin mildly elevated at 0.08 which is consistent with previous mild troponin elevations, BNP improved from prior today 783. CT head and C-spine personally interpreted do not demonstrate acute traumatic injury, see radiology read for final interpretation. Chest x-ray personally interpreted does not demonstrate acute intrathoracic abnormality, see radiology read for final interpretation. Repeat blood glucose 102. Even after blood glucose correction and eating and drinking, patient was still very unsteady and not able to stand with two-person assist. Patient and family at bedside admitted the patient needs to be admitted to the hospital to go back to rehab with which I agree. I discussed this case with the hospitalist who graciously accepted the patient for admission. She was admitted in stable condition. Critical Care Critical Care Time Critical Care Time: No
--- NOTE | 2024-10-03 23:58 | PC.NURSE ---
Pt back from CT
[2024-10-04] VITALS (12 sets, daily range): BP systolic 108–152; BP diastolic 57–77; PULSE 70–83; RESP 18–20; TEMP 36.6–37.1; O2SAT 95–99; BMI 47.0
--- NOTE | 2024-10-04 00:10 | PC.NURSE ---
pt unable to stand to obtain standing BP. ED provider aware
--- OUTSIDE RECORDS SUMMARY | 2024-10-04 00:17 | XMS_ITS | Encounter Summary ---
Author Organization [facility] Address [address] [place] [address] Care Team Providers Care Permit Coordinator Name Role Phone Unavailable Primary Care Provider Unavailabl e Encounter Details Date Type Department Care Team (Latest Contact Info) Description 08/09/2024 Travel Social History Tobacco Use Types Packs/Day Years [...] on file documented as of this encounter Plan of Treatment Not on file documented as of this encounter Visit Diagnoses Not on filedocumented in this encounter
--- OUTSIDE RECORDS SUMMARY | 2024-10-04 00:17 | XMS_ITS | Data Portability ---
Author Organization [place] - [facility] Address [address] [place] [address] Care Team Providers Care Story Writer Name Role Phone CUCOJAVON Primary Care Provider Assessment Encounter Date Assessment Date Assessment LastModified by Organization Details LastModified Time 11/16/2023 11/16/2023 edema is well controlled. No erythema. EKG today shows normal sinus rhythm with left bundle branch block. No change from baseline. Blood pressure and heart rate look great. Follow-up in 3 months. Continue current diuretic. She takes metolazone 2.5 mg 3 times a week before her torsemide minutes. She is also using Aldactone. She feels well. I am not going to make any changes in the medical regimen. Blood work as per primary care. Meds and chart reviewed in full today. Follow-up in 3 months PLAN: Continue metolazone 2.5 mg 30 minutes prior to torsemide 3 times a week Continue torsemide every day as well as Aldactone Monitor weight, blood pressure and heart rate Blood work as per primary care Follow-up in Cardiology Clinic in 3 months Continue current medications Risk factor modification Recommend LDL of less than 100. Will try diet modification and discuss potential cholesterol Monitor blood pressure and heart rate Encourage regular exercise and weight loss EKG today shows normal sinus rhythm with occasional PAC and left bundle branch block. No change from baseline LAST ECHO: 08/11/2022 EJECTION FRACTION IS 50 55%. THERE IS MILD LVH. THERE IS ABNORMAL SEPTAL WALL MOTION. MODERATE AORTIC ROOT DILATION MEASURING 4.3 CM LAST ISCHEMIC EVAL: 03/18/2016 ABNORMAL RESTING MYOVIEW IMAGES WITH MODERATE DEFECT NOTED IN THE APICAL ANTERIOR AND INFERIOR SALEH. NO GATED IMAGES OBTAINED LAST HEART CATH: 07/28/2019 LHC AND RHC. MILD CORONARY ARTERY DISEASE. LAST LDL: 06/22/2023 with LDL 154. Creatinine 1.37 with normal electrolytes. [facility]: 04/21/2016 IFredi LPN, I am scribing for, and in the office/presence of, Piotr Mullins MD. This note was dictated using [employer] software. If something is unclear, or does not make sense, please do not hesitate to contact our office at [phone] for clarification. elohman Not available 11/17/2023 16:40:41 02/16/2024 02/16/2024 Doing very well. No chest pain pressure or tightness. Chronic shortness of breath and chronic edema well controlled with the torsemide and as needed metolazone. I want to get an echocardiogram. Her symptoms are stable but I want to follow her aortic root. Last echocardiogram we did showed borderline function with aortic root dilatation moderately dilated at 4.3 cm. The pressures in the heart at that time looked good. She did have abnormal septal wall motion. That is consistent with her left bundle-branch block. Her EKG from last visit showed this. We will do an EKG at follow-up. I will see her in June. Meds and chart reviewed in full today. Blood pressure and heart rate have been under good control. No changes in the medical regimen Given the moderate aortic motion in her shortness of breath with chronic edema we will go ahead and repeat the echocardiogram today. This aortic root she would be followed every 1-2 years. Last echocardiogram showed borderline function likely from her underlying bundle branch block PLAN: Continue atorvastatin Continue current diuretics Continue oxygen Echocardiogram EKG at follow-up Follow-up in Cardiology Clinic in 4 months Monitor weight, blood pressure and heart rate Blood work as per primary care and nephrology Continue current medications Risk factor modification Recommend LDL of less than 100. Will try diet modification and discuss potential cholesterol Encourage regular exercise and weight loss EK11/16/2023 -showed normal sinus rhythm with occasional PAC and left bundle branch block. No change from baseline LAST ECHO: 08/11/2022 EJECTION FRACTION IS 50 55%. THERE IS MILD LVH. THERE IS ABNORMAL SEPTAL WALL MOTION. MODERATE AORTIC ROOT DILATION MEASURING 4.3 CM LAST ISCHEMIC EVAL: 03/18/2016 ABNORMAL RESTING MYOVIEW IMAGES WITH MODERATE DEFECT NOTED IN THE APICAL ANTERIOR AND INFERIOR SALEH. NO GATED IMAGES OBTAINED LAST HEART CATH: 07/28/2019 LHC AND RHC. MILD CORONARY ARTERY DISEASE. LAST LDL: 06/22/2023 with LDL 154. Creatinine 1.37 with normal electrolytes. [facility]: 04/21/2016 Fredi Garg LPN, I am scribing for, and in the office/presence of, Piotr Mullins MD. PIOTR Garg M.D. PERFORMED THE SERVICES DESCRIBED IN THIS DOCUMENTATION, SCRIBED BY FREDI BRUMFIELD LPN IN MY PRESENCE, AND IT IS BOTH ACCURATE AND COMPLETE. This note was dictated using [employer] software. If something is unclear, or does not make sense, please do not hesitate to contact our office at [phone] for clarification. hoda Not available 02/16/2024 11:21:45 Plan of Treatment Reminders Order Date Submit Date Provider Last Modified By Organization Details Last Modified Time Details Appointments OV EST 30 2024 02:00P Maximino LOPEZ, RUTHANN, S Not available Not available Not available Lab None recorded. Referral None recorded. Procedures None recorded. Surgeries None recorded. Imaging US, echocardi ogram, transthor acic, complete, w/ color flow 2023 024 perla [place] (Centralized Scheduling), [address] [facility] , [place], [address], 03/01/2024 08:38:14 electroca rdiogram 2023 024 hoda Oropeza [facility], [address] [facility] Rishabh Lexi, [place], [address], 11/17/2023 16:40:55 Medication Orders ORTHOVISC 30 mg/2 mL intra-art icular syringe 2023 024 keerthi n64 [facility], [address] [facility] , [place], [place], [id number], 02/16/2024 11:02:22 ORTHOVISC 30 mg/2 mL intra-art icular syringe 2023 024 keerthi n64 [facility], [address] [facility] , [place], [place], [id number], 02/16/2024 11:02:22 Patient TargetsNo targets recorded. Patient InstructionsNo instructions recorded. Reason for Referral None Reported. Results Created Date Observation Date Name Description Value Unit Range Abnormal Flag Note LastModifiedBy Organization Detail LastModifiedTime 11/16/19 elect rocar diogr am No observ ation record ed. AFSHIN Oropeza [address] [place], [place], [address], 11/16/2023 11:42:13 11/16/19 24 11/16/2023 elect rocar diogr am No observ ation record ed. Not Available 2023 11:43:31 03/09/20 24 03/09/2024 - ECHO w/spe c/col or flow [facility] Name: Brendon SANON CORI [facility] [employer] [address] Phys: Susanna BRIONES, [place] [address] : 1940 Age: 83 Sex: F Acct: [id number] Loc: [facility] PHONE #: [phone] Exam Date: 2023 Status : DEP CLI FAX #: Rad# [id number] Unit# [id number] Admit Date: 2023 EXAMS: CPT CODE: [id number] ECHO W/SPEC /COLOR FLOW [id number] Reason for study: Dyspne a Left ventri cular diasto le: 4.5 Left ventri cular systol e: 3.2 Septal wall thickn ess: 1.2 Die Hardener ior wall thickn ess: 1.1 Right ventri cular diasto le: 2.8 Left Atrium : 3.8 Aortic root: 3.4 TR veloci ty: less than 2.0 m/s Impres dimitry: 1. Techni ariel diffic ult study. Left ventri cular chambe r appear s to be within normal limits with normal left ventri cular systol ic functi on at 55-60% . There is mild concen tric hypert rophy of the left ventri flor. There is Dopple r eviden ce for impair ed relaxa tion and diasto lic dysfun ction of the left ventri flor 2. Endoca rdium not well visual ized in some views, but no appare nt segmen kris wall motion abnorm alitie s. There is abnorm al septal wall motion 3. Normal left atrial and right atrial size 4. Normal right ventri cular size and functi on 5. Normal mitral valve, with mild mitral insuff icienc y 6. Mild calcif icatio n and thicke krysta of the aortic valve leafle ts with normal aortic valve leafle t mobili ty and functi on. There is no aortic insuff icienc y 7. No perica rdial effusi on 8. Normal aortic root 9. Normal tricus pid valve with tricus pid regurg itant jet veloci ty less than 2.0 m/s implyi ng normal right ventri cular systol ic pressu re Electr onical ly Signed by PIOTR MULLINS MD on 2023 at 1521 Report ed and signed by: PIOTR MULLINS MD PAGE 1 Signed Report (ELOISE NUED) [facility] Name: Brendon SANON [facility] [address] Phys: Susanna BRIONES, Piotr [place] [address] : 1940 Age: 83 Sex: F Acct: [id number] Loc: [facility] PHONE #: Exam Date: 2023 Status : DEP CLI FAX #: [phone] Rad# [id number] Unit# [id number] Admit Date: 2023 EXAMS: CPT CODE: [id number] ECHO W/SPEC /COLOR FLOW [id number] CC: Piotr Mullins MD; Norma Story GEOPHYSICAL DATA TECHNICIAN Dictat ed Date/T suad: 11/21/ 2024 (1521) Techno logist : YOSVANY TURNERS Transc ribed Date/T suad: 2023 (1521) Transc riptio nist: DR.LOH MICHAEL [email or web address] Signat ure Date/T suad: 2023 (1521) Printe d Date/T suda: 2023 (1525) BATCH NO: N/A PAGE 2 Signed Report CC'ed Logic: Orderi ng Provid er: SUSANNA SALDAÑA Attend ing Provid er: SUSANNA SALDAÑA Referr ing Provid er: SUSANNA SALDAÑA Consul ting Provid er: MELODIE LAMBERT [email or web address] [address], [place], [address], 03/09/2024 16:53:09 Result Notes None recorded. Problems Name Problem SNOMED Code Status Onset Date Resolution Date Notes Provider Name and Address Organization Details Recorded Time Aortic root dilatation 169642496 Active 2023 Piotr Mullins MD [address] [place] [address],[employer] [address] [place] [address], [phone], [place] - [facility] - [place] & [place] 4 11:14:44 Dyspnea on exertion 14655183 Active 2021 Piotr Mullins MD [address] [place] [address],[employer] [address] [place] [address], [phone], [place] - [facility] - [place] & [place] 2 11:29:39 Coronary arterioscleros is 24058269 Active 2021 Piotr Mullins MD [address] [place] [address],[employer] [address] [place] [address], [phone], [place] [facility] - [place] & [place] 2 11:29:43 Diastolic dysfunction 3028528 Active 2021 Piotr Mullins MD [address] [place] [address],[employer] [address] [place] [address], [phone], [place] [facility] - [place] & [place] 2 11:29:48 Electrocardiog bhavin abnormal 305753142 Active 2021 Piotr Mullins MD [address] [place] [address],[employer] [address], [place], [address], [place] [facility] - [place] & [place] 2 11:30:17 Essential hypertension 17970620 Active 2021 Piotr Mullins MD [address] [place] [address],[address], [place], [address], [place] [facility] & [place] 2 11:30:22 Peripheral edema 819131316 Active 2022 Piotr Mullins MD [address] [place] [address] Drive,[address] [address], [place], [address], [place] [facility] & [place] 3 11:27:47 Cervical radiculopathy 09842831 Active 2022 Piotr Mullins MD [address] [place] [address],[address], [place], [address], [place] [facility] & [place] 3 11:50:43 Chronic renal insufficiency 829828648 Active 2023 Piotr Mullins MD [address] [place] [address],[address], [place], [address], [place] [facility] & [place] 4 13:45:37 Dyspnea 006113536 Active 2023 Piotr Mullins MD [address] [place] [address],[address], [place], [address], [place] [facility] & [place] 4 11:21:13 Problem Notes None recorded. Procedures Surgical History Date Name Laterality Status Provider Name and Address Organization Details Recorded Time 07/28/19 20 Cardiac Catheterization completed Susanne Spenceres [place] [facility] & [place] 11/13/2022 11:47:41 04/21/19 17 Cardiac Catheterization completed Susanne Spenceres [place] - [facility] & [place] 11/13/2022 11:44:51 07/29/19 11 Cardiac Catheterization completed Susanne Spenceres [place] - [facility] - [facility] & [place] 11/13/2022 11:45:51 Hysterectomy completed Fredi CRUZ - [facility] & [place] 02/11/2022 17:07:34 Appendectomy completed Fredi CRUZ - [facility] & [place] 02/11/2022 17:07:42 tonsillectomy completed Fredi CRUZ - [facility] & [place] 02/11/2022 17:07:50 Cholecystectomy completed Fredi CRUZ - [facility] & [place] 02/11/2022 17:07:56 oophorectomy completed Fredi CRUZ - [facility] & [place] 02/11/2022 17:08:42 procedure on brain completed Fredi CRUZ - [facility] & [place] 02/11/2022 17:08:57 Imaging Results None recorded. Procedure Notes None recorded. Medical Equipment None Reported. Allergies Allergen ID Allergen Name Allergen Category Reaction Reaction Severity Criticality Documentation Date Start Date Code Code System Note Provider Name and Address Organization Details Recorded Time 14027 Byetta medicatio n Not available Not available Not available 02/11/2022 25650 1 RxNorm Fredi Brumfield null, ANTHON[place] - [facility] & [place] 2 17:02:44 39093 Medicinal product containin g cephalosp lawanda and acting as antibacte rial agent (product) medicatio n Not available Not available Not available 02/11/2022 78329 9009 SNOMED Fredi Brumfield null, ANTHONY - [facility] & [place] 2 17:02:54 94920 oxycodone medicatio n Not available Not available Not available 02/11/2022 7804 RxNorm Fredi Brumfield null, ANTHON[place] - [facility] & [place] 2 17:03:07 52544 codeine medicatio n Not available Not available Not available 02/11/2022 2670 RxNorm Fredi Brumfield null, [place] - [facility] - [place] & [place] 2 17:03:24 95087 doxycycli ne Not available Not available Not available Not available 02/11/2022 3640 RxNorm Fredi Brumfield null, ANTHON[place] - [facility] & [place] 2 17:03:33 09123 iodine medicatio n Not available Not available Not available 02/11/2022 5933 RxNorm Fredi groves, ANTHONY - [facility] - [place] & [place] 2 17:03:39 28817 latex environme nt,medica tion Not available Not available Not available 02/11/2022 14217 91 RxNorm Fredi groves, ANTHON[place] - [facility] - [place] & [place] 2 17:03:45 65714 Levbid medicatio n Not available Not available Not available 02/11/2022 55479 3 RxNorm Fredi groves, ANTHON[place] - [facility] - [place] & [place] 2 17:03:51 02302 Levaquin medicatio n Not available Not available Not available 02/11/2022 81415 2 RxNorm Fredi groves, ANTHON[place] - [facility] - [place] & [place] 2 17:03:57 35779 Substance with sulfonami de structure and antibacte rial mechanism of action (substanc e) medicatio n Not available Not available Not available 02/11/2022 43436 8003 SNOMED Fredi groves, ANTHON[place] - [facility] - [place] & [place] 2 17:04:03 39164 Product containin g penicilli n (product) medicatio n Not available Not available Not available 02/11/2022 96496 8001 SNOMED Fredi groves, ANTHONY - [facility] - [place] & [place] 2 17:04:14 91393 glyburide medicatio n Not available Not available Not available 02/11/2022 4815 RxNorm Fredi groves, ANTHNOY - [facility] - [place] & [place] 2 17:04:21 Medications Name Sig Start Date Stop Date Status Note LastModified by Organization Details LastModified Time cyclobenzap rine 10 mg tablet TAKE ONE TABLET BY MOUTH EVERY 8 HOURS NEEDED 06/03 completed Not Available Not Available Not Available metolazone 2.5 mg tablet TAKE 1 TABLET BY MOUTH EVERY DAY 30 MIN BEFORE TORSEMIDE active Not Available Not Available No t Available insulin syringe U-100 with needle 1 mL 30 gauge x 09/01 USE DIRECTED active Not Available Not Available No t Available atorvastati n 40 mg tablet TAKE 1 TABLET BY MOUTH NIGHTLY AT BEDTIME FOR 30 DAYS active Not Available Not Available No t Available promethazin e-DM 6.25 mg-15 mg/5 mL oral syrup 07/01 completed Not Available Not Available Not Available fluticasone 250 mcg-salmete rol 50 mcg/dose blistr powdr for inhalation INHALE ONE (1) PUFF TWICE A DAY (RESCUE THERAPY ONLY) FOR 30 DAYS active Not Available Not Available No t Available prednisone 10 mg tablet TAKE THREE (3) TABLETSS BY MOUTH FOR THREE (3) DAYS THEN TWO (2) TABLETS BY MOUTH FOR THREE (3) DAYS THEN ONE (1) TABLET BY MOUTH FOR THREE (3) DAYS active Not Available Not Available No t Available ipratropium 0.5 mg-albutero l 3 mg (2.5 mg base)/3 mL nebulizatio n soln USE 3 ML IN NEBULIZER EVERY 6 HOURS 06/03 completed Not Available Not Available Not Available albuterol sulfate 2.5 mg/3 mL (0.083 %) solution for nebulizatio n ONE (1) (ONE) VIAL THREE (3) TIMES DAILY NEEDED active Not Available Not Available No t Available azithromyci n 250 mg tablet TAKE 2 TABLETS TODAY THEN TAKE 1 TABLET DAILY FOR THE NEXT 4 DAYS active Not Available Not Available No t Available ofloxacin 0.3 % eye drops place ONE TO TWO DROPS IN THE RIGHT EYE EVERY 4 HOURS FOR 2 DAYS, THEN FOUR TIMES DAILY FOR 5 DAYS 04/22 completed Not Available Not Available Not Available hydrocodone 5 mg-acetamin ophen 325 mg tablet TAKE ONE TABLET BY MOUTH EVERY 4 HOURS NEEDED FOR mild TO moderate pain (1-6) FOR 3 DAYS MAY CAUSE DROWSINES S active Not Available Not Available No t Available lisinopril 20 mg tablet TAKE TWO (2) TABLETS BY MOUTH EVERY DAY active Not Available Not Available No t Available ondansetron HCl 4 mg tablet TAKE 1 TABLET BY MOUTH EVERY EIGHT (8) HOURS NEEDED active Not Available Not Available No t Available prednisone 20 mg tablet TAKE TWO (2) TABLETS BY MOUTH ONCE DAILY FOR 2 DAYS active Not Available Not Available No t Available Accu-Chek Softclix Lancets USE ONE (1) LANCET TO TEST BLOOD SUGAR THREE (3) TIMES DAILY active Not Available Not Available No t Available diphenoxyla te-atropine 2.5 mg-0.025 mg tablet TAKE 1 TABLET BY MOUTH TWICE DAILY NEEDED 07/01 completed Not Available Not Available Not Available potassium chloride ER 10 mEq tablet,exte nded release TAKE 2 TABLETS BY MOUTH DAILY active Not Available Not Available No t Available ciprofloxac in 250 mg tablet TAKE ONE TABLET BY MOUTH TWICE DAILY 10/28 completed Not Available Not Available Not Available allopurinol 100 mg tablet TAKE ONE (1) TABLET BY MOUTH DAILY active Not Available Not Available No t Available ciprofloxac in 500 mg tablet 02/11 completed Not Available Not Available Not Available tramadol 50 mg tablet TAKE 1 TABLET BY MOUTH TWICE DAILY NEEDED active Not Available Not Available No t Available spironolact one 25 mg tablet TAKE ONE (1) TABLET BY MOUTH DAILY active Not Available Not Available No t Available Sensorcaine 0.5 % (5 mg/mL) injection solution Take 2 mL by injection route. 07/11 completed Not Available Not Available Not Available torsemide 100 mg tablet TAKE ONE HALF (1/2) TABLET BY MOUTH DAILY active Not Available Not Available No t Available linezolid 600 mg tablet TAKE 1 TABLET BY MOUTH TWICE DAILY FOR 7 DAYS 07/01 completed Not Available Not Available Not Available Kenalog 10 mg/mL suspension for injection Take 20 mg by injection route. 07/11 completed Not Available Not Available Not Available benzonatate 100 mg capsule TAKE ONE (1) CAPSULE BY MOUTH THREE TIMES A DAY NEEDED FOR COUGH FOR FIVE (5) DAYS 02/15 completed Not Available Not Available Not Available erythromyci n 5 mg/gram (0.5 %) eye ointment Apply ribbon TO THE right eye six times daily FOR SEVEN DAYS 04/22 completed Not Available Not Available Not Available nitrofurant oin macrocrysta l 100 mg capsule TAKE ONE CAPSULE BY MOUTH TWICE DAILY 06/03 completed Not Available Not Available Not Available prednisone 50 mg tablet TAKE ONE (1) TABLET BY MOUTH DAILY FOR FIVE (5) DAYS. PLEASE BEGIN ONE (1) DAY AFTER ED' VISIT active Not Available Not Available No t Available fluticasone 500 mcg-salmete rol 50 mcg/dose blistr powdr for inhalation active Not Available Not Available N ot Available gabapentin 300 mg capsule TAKE 1 CAPSULE BY MOUTH THREE TIMES DAILY NEEDED FOR NEUROPATH Y 07/01 completed Not Available Not Available Not Available gabapentin 100 mg capsule TAKE 1 CAPSULE BY MOUTH THREE TIMES DAILY 06/17 completed Not Available Not Available Not Available Novolog U-100 Insulin aspart 100 unit/mL subcutaneou s solution INJECT 10 UNITS UNDER THE SKIN 5-10 MINUTES BEFORE EACH MEAL THREE TIMES DAILY active Not Available Not Available No t Available benazepril 40 mg tablet TAKE 1 TABLET BY MOUTH ONCE DAILY 02/11 completed Not Available Not Available Not Available albuterol sulfate HFA 90 mcg/actuati on aerosol inhaler INHALE FOUR (4) PUFFS EVERY FOUR (4) HOURS FOR 48 HOURS THEN NEEDED FOR SHORTNESS OF BREATH OR WHEEZING active Not Available Not Available No t Available cefdinir 300 mg capsule TAKE 1 CAPSULE BY MOUTH TWICE DAILY active Not Available Not Available No t Available fluticasone propionate 50 mcg/actuati on nasal spray,suspe nsion active Not Available Not Available Not Available clotrimazol e 1 % topical cream APPLY A THIN film applicati on apply cream THREE TIMES DAILY active Not Available Not Available No t Available naproxen 500 mg tablet TAKE ONE TABLET BY MOUTH TWICE DAILY 06/03 completed Not Available Not Available Not Available Novolog FlexPen U-100 Insulin aspart 100 unit/mL (3 mL) subcutaneou s INJECT 15 UNITS SUBCUTANE OUSLY THREE (3) TIMES DAILY active Not Available Not Available No t Available ORTHOVISC 30 mg/2 mL intra-artic ular syringe Inject 2 mL every week by intra-art icular route. 02/15 completed Not Available Not Available Not Available duloxetine 20 mg capsule,del ayed release TAKE 1 CAPSULE BY MOUTH NIGHTLY active Not Available Not Available No t Available Levemir U-100 Insulin 100 unit/mL subcutaneou s solution Inject 5 units every day by subcutane ous route at bedtime. 10/28 completed Not Available Not Available Not Available Levemir FlexPen 100 unit/mL (3 mL) solution subcutaneou s insulin pen inJECT 30 UNITS UNDER THE SKIN AT BEDTIME 06/03 completed Not Available Not Available Not Available Lantus Solostar U-100 Insulin 100 unit/mL (3 mL) subcutaneou s pen INJECT 40 UNITS SUBCUTANE OUSLY TWICE DAILY active Not Available Not Available No t Available Unifine Pentips 32 gauge x / needle USE ONE (1) (ONE) NEEDLE DIRECTED, THREE TIMES DAILY active Not Available Not Available No t Available Easy Comfort Pen [place] 31 gauge x 3/16 USE DIRECTED with levemir injection s EVERY DAY active Not Available Not Available No t Available potassium chloride ER 20 mEq tablet,exte nded release TAKE 1 TABLET BY MOUTH TWICE DAILY 07/29 completed Not Available Not Available Not Available oxygen active Not Available Not Availa ble Not Available EC-Naproxen 500 mg tablet,jay yed release TAKE 1 TABLET BY MOUTH TWICE DAILY NEEDED 07/01 completed Not Available Not Available Not Available OneTouch Delica Plus Lancet 33 gauge USE ONE (1) LANCET TO TEST BLOOD SUGAR THREE (3) TIMES DAILY active Not Available Not Available No t Available Vitals Date Recorded Body height Provider Name an d Address Organization Details Last Updated DateTime 07/21/2023 160.02 cm Veronica Groves [place] - [facility] & [place] 07/21/2023 14:00:52 Date Recorded Body height Body mass index (BMI) Body weight Oxygen saturation Oxygen saturation in Arterial blood by Pulse oximetry Inhaled oxygen flow rate Heart rate Systolic blood pressure Diastolic blood pressure Provider Name and Address Organization Details Last Updated DateTime 4 160.02 cm 42.5 kg/m2 782505. 89 g 94 % 94 % 2 L/min 92 /min 118 mm[Hg] 78 mm[Hg] Alvin Collado [place] - [facility] & [place] 4 11:41:25 Date Recorded Body height Body mass index (BMI) Body weight Oxygen saturation Oxygen saturation in Arterial blood by Pulse oximetry Heart rate Systolic blood pressure Diastolic blood pressure Provider Name and Address Organization Details Last Updated DateTime 4 160.02 cm 43.4 kg/m2 188163. 13 g 94 % 94 % 93 /min 142 mm[Hg] 82 mm[Hg] Dulce mcintosh [place] - [facility] & [place] 4 11:01:52 Social History Question Answer Notes LastModified by [employer] Details LastModified Time Tobacco Smoking Status Former Smoker Fredi Brumfield germain, [facility] & [place] 02/11/2022 17:07:22 What Is Your Level Of Caffeine Consumption? Occasional [email or web address] Information not available 06/03/2023 What Type Of Diet Are You Following? REGULAR [email or web address] Information not available 06/03/2023 When Did You Quit Smoking? 16+yearssincel astcigarette 40 Years [email or web address] Information not available 06/03/2023 What Was The Date Of Your Most Recent Tobacco Screening? 06/03/2023 [email or web address] Information not available 06/03/2023 Are You Passively Exposed To Smoke? No Information not available 06/03/2023 Sex: Female Functional Status Question Answer Note LastModified by [employer] Details LastModified Time Do you use any illicit or recreational drugs? No [email or web address] Information not available 11/18/2022 Do you or have you ever used any other forms of tobacco or nicotine? No [email or web address] Information not available 06/03/2023 What is your level of alcohol consumption? None [email or web address] Information not available 11/18/2022 What is your exercise level? None [email or web address] Information not available 11/18/2022 Mental Status None recorded. Family History Relationship Description Onset Age of this Age Resolved Age Notes LastModified by Organization Details LastModified Time Father Hypertensive disorder [email or web address] Not available 2021 17:06:21 Mother Hypertensive disorder [email or web address] Not available 2021 17:06:21 Mother Cerebrovascu lar accident [email or web address] Not available 17:06:49 Medical History Condition Response Coronary Artery Disease Y COPD Y Obstructive Sleep Apnea Y Obesity Y Arthritis Y Rheumatoid Arthritis Y Ear or Hearing Problems Y Diabetes Y Hyperlipidemia Y Hypertension Y Gynecological HistoryNo gynecological history recorded. Obstetrics History GPAL:G 0 P 0 0 0 0 Immunizations Vaccine Type Date Status Note Provider Nam e and Address Organization Details Recorded Time zoster recombinant 3 completed ANTHONY Watson [facility] & [place] 07/01/2023 14:21:47 Pneumococcal conjugate PCV20, polysaccharide [id number] conjugate, adjuvant, PF 3 completed Tova ANTHONY Thornton [facility] - [place] & [place] 07/01/2023 14:21:47 Influenza, high-dose, trivalent, PF 0 completed [place]ova [place] ANTHONY Simeon [facility] - [place] & [place] 07/01/2023 14:21:47 Past Encounters Encounter ID Performer Location Encounter Start Date Encounter Closed Date Diagnosis/Indication Diagnosis SNOMED-CT Code Diagnosis ICD10 Code Diagnosis Note [id number] Piotr Mullins MD [address] [place] [address] [place] [address] 6 02/11/2022 10:50:55 02/11/2022 11:27:24 Dyspnea on exertion 66222686 R06.09 Coronary arteriosclerosis 61306995 I25.10 Diastolic dysfunction 35 03831 I51.9 Electrocar diogram abnormal 487589852 R94.31 Essential hypertension 11997091 I10 [id number] Piotr Mullins MD [address] [place] [address] [place] [address] 6 06/17/2022 10:05:38 06/17/2022 10:57:51 Peripheral edema 130226454 R60.9 Coronary arteriosclerosis 64000863 I25.10 Diastolic dysfunction 35 52544 I51.9 Essential hypertension 69562780 I10 [id number] Piotr Mullins MD [address] [place] [address] [place] [id number] 6 07/29/2022 11:11:39 07/29/2022 11:44:06 Peripheral edema 415139121 R60.9 Essential hypertension 62402588 I10 Dyspnea on exertion 6084 5006 R06.09 Coronary arteriosclerosis 81175818 I25.10 Diastolic dysfunction 35 63359 I51.9 Electrocar diogram abnormal 000156237 R94.31 [id number] Piotr Mullins MD [address] [place] [address] [place] [address] 6 10/28/2022 11:27:15 10/28/2022 11:46:27 Cervical radiculopathy 64913350 M54.12 Coronary arteriosclerosis 56983554 I25.10 Diastolic dysfunction 35 24115 I51.9 Dyspnea on exertion 6084 5006 R06.09 Electrocar diogram abnormal 085625416 R94.31 Essential hypertension 45532084 I10 Peripheral edema 2635692 00 R60.9 [id number] MD LINDA Morrell [address] [place] [address] [place] [id number] 6 11/18/2022 11:30:11 11/18/2022 11:42:22 Coronary arteriosclerosis 24202993 I25.10 Cervical radiculopathy 66163598 M54.12 Diastolic dysfunction 35 82121 I51.9 Electrocar diogram abnormal 382121010 R94.31 Essential hypertension 85896726 I10 Dyspnea on exertion 6084 5006 R06.09 [id number] MD LINDA Morrell [address] [place] [address] [place] [id number] 6 04/22/2023 11:39:38 04/22/2023 12:08:34 Dyspnea 420183203 R06.00 Dyspnea on exertion 6084 5006 R06.09 Peripheral edema 1161703 00 R60.9 Essential hypertension 44092891 I10 Electrocar diogram abnormal 898694635 R94.31 Coronary arteriosclerosis 58386352 I25.10 Chronic re nal insufficiency 897548526 N18.9 [id number] [facility] [address] [place] [id number] 9 06/03/2023 13:07:38 06/03/2023 14:06:06 Osteoarthritis of right knee joint 0507594974 78465 M17.11 [id number] [facility] [address] [place] [address] [id number] 9 07/01/2023 13:42:12 07/01/2023 14:29:18 Osteoarthritis of right knee joint 1471132833 14580 M17.11 [id number] [facility] [address] [place] [address] [id number] 9 07/07/2023 15:09:05 07/07/2023 15:27:59 Osteoarthritis of right knee joint 5267573939 94455 M17.11 [id number] Piotr Mullins MD [address] [place] [address] [place], [place] [address] 07/12/2023 10:24:25 07/12/2023 11:15:09 Dyspnea on exertion 90604790 R06.09 Peripheral edema 6745992 00 R60.9 Essential hypertension 98698432 I10 Electrocar diogram abnormal 990009823 R94.31 Coronary arteriosclerosis 54862920 I25.10 Chronic re nal insufficiency 904369670 N18.9 Diastolic dysfunction 35 20149 I51.9 [id number] [facility]IN [facility] [place] [address] 9 07/14/2023 14:06:42 07/14/2023 14:26:32 Osteoarthritis of right knee joint 0843265727 48000 M17.11 [id number] [facility] [place] [address] 9 07/21/2023 13:50:23 07/21/2023 14:18:24 Osteoarthritis of right knee joint 8531760097 04304 M17.11 [id number] Vinod Pan MD [facility] [place] [address] 9 09/01/2023 09:51:13 09/01/2023 10:11:24 Osteoarthritis of right knee joint 2191596960 25406 M17.11 Pain of ri ght knee joint 3607158315 20932 M25.938 [id number] Piotr Mullins MD [address] [place] [address] [place], [place] [address] 11/16/2023 11:24:01 11/16/2023 11:58:51 Dyspnea on exertion 89443063 R06.09 Peripheral edema 4433379 00 R60.9 Essential hypertension 87145984 I10 Electrocar diogram abnormal 077497743 R94.31 Coronary arteriosclerosis 12052911 I25.10 Chronic re nal insufficiency 780601926 N18.9 Diastolic dysfunction 35 00343 I51.9 [id number] Piotr Mullins MD [facility] [address] [facility] [address] [place] [address] 02/16/2024 10:52:16 02/16/2024 11:21:17 Dyspnea on exertion 35011320 R06.09 Peripheral edema 6989466 00 R60.9 Essential hypertension 13161395 I10 Electrocar diogram abnormal 739852659 R94.31 Coronary arteriosclerosis 90732037 I25.10 Chronic re nal insufficiency 715939010 N18.9 Diastolic dysfunction 35 79190 I51.9 Aortic bart t dilatation 751036686 I77.810 Dyspnea 830829268 R06.00 Health Concerns Section Related Observation LastModified by Organization Detai ls LastModified Time None Recorded Concern Status LastModified by Organization Details LastModified Time None Recorded Advance Directives Directive None Recorded Payers Insurance Date Sequence Insurance Name Policy Number Policy Emanuel Covered Member ID Emanuel Member ID Guarantor Name 08/21/2024 1 [place]MEDICARE RE[place]ACEMENT HMO) [id number] Denisa E Sanon [id number] Denisa E Sanon 08/21/2024 1 [employer] (MEDICARE REPLACEMENT/AD VANTAGE - PPO) Denisa E Sanon [id number] Denisa E Sanon 08/21/2024 1 [employer] (MEDICARE REPLACEMENT/AD VANTAGE - HMO) [id number] Denisa E Sanon [id number] Denisa E Sanon 08/21/2024 1 [employer] (MEDICARE REPLACEMENT/AD VANTAGE - PPO) Denisa E Sanon [id number] Denisa E Sanon Notes Date Note Type Note Provider Name and Address Organization Details Recorded Time 07/14/2023 text/html Ortovisc #2 righ t kneePatient states the first injection made knee pain [id number] KELVIN ELI NP [address] [facility],[address], [place], [address], [facility] 07/14/2023 14:26:27 07/21/2023 text/html Pt is here for # 3 rt orthrovisc inj. She reports the inj's have made her knee pain worse.[id number] KELVIN ELI NP [address] [place] [address],[address], [place], [address], [facility] & [place] 07/21/2023 14:15:46 09/01/2023 text/html 83 year old fema le here today for continued pain in right knee. Knee pain is radiating down lateral aspect. She thinks gel injections given beginning of July did not help at all, believes a nerve was hit . She is taking tylenol as needed, but no relief. She would like to discuss right knee replacement today. Vinod Pan MD [address] [place] [address] Drive,[address], [place], [address], [facility] & [place] 09/01/2023 13:22:17 11/16/2023 text/html doing well with the current dose of metolazone diuretics. She is felt well. The edema seems to be under good control. Her blood work has been fine. We will continue the same medical regimen. She is using the metolazone 3 times a week. No chest pain pressure or tightness. No shortness of breath orthopnea or PND Piotr Mullins MD [address] [place] [address] Drive,[address], [place], [address], [facility] [place] 11/17/2023 16:40:59 02/16/2024 text/html doing well. No chest pain pressure or tightness. Does have shortness of breath with exertion which is chronic. Overall she feels well. She was out of her torsemide for 3 or 4 days and gained 5 lb. She is back down to her normal weight and feels well. Piotr Mullins MD [address] [place] [address] Drive,[address], [place], [address], [facility] & [place] 02/16/2024 11:22:17 OBGyn Episode No OBEpisode recorded.
--- OUTSIDE RECORDS SUMMARY | 2024-10-04 00:17 | XMS_ITS ---
Author Organization Unknown TREATMENT PLAN Planned Care Start Date Provider Encounter for Check-up [id number] [facility]
--- OUTSIDE RECORDS SUMMARY | 2024-10-04 00:18 | XMS_ITS | Encounter Summary ---
Author Organization Healthcare Address [address] [place] [address] Care Team Providers Care Correctional Counselor Name Role Phone Carlos Gonzalez MD Primary Care Provid er Encounter Details Date Type Department Care Team (Late st Contact Info) Description 09/28/2024 Lab Requisition [facility] [address] [place] [address] System, Provider Not In, [address] [place] [address] Chronic respiratory failure with hypoxia; Osteoarthritis of knee, unspecified; Chronic kidney disease, unspecified; Muscle weakness (generalized) Social History Tobacco Use Types Packs/Day Years Used Date Smoking Tobacco: Former Alcohol Use Standard Drinks/Week Comments No 0 (1 standard drink = 0.6 oz pur e alcohol) Comments Unknown Sex and Gender Information Value Date Recorded Sex Assigned at Not on file Legal Sex Female 8:25 PM EDT Gender Identity Not on file Sexual Orientation Not on file documented as of this encounter Plan of Treatment Not on file documented as of this encounter Procedures Procedure Name Priority Date/Time Associated Diagnosis Comments N-TERMINAL PROBNP, PLASMA Routine 09/28/2024 11:00 PM EDT Chronic respiratory failure with hypoxia Osteoarthritis of knee, unspecified Chronic kidney disease, unspecified Muscle weakness (generalized) documented in this encounter Results * N-Terminal Probnp (09/28/2024 11:00 PM EDT) N-Terminal, PROBNP, Plasma 793 0 - 1,799 pg/mL 09/28/2024 11:58 PM EDT [facility] Blood Venous blood specimen / Unknown 09/28/2024 11:00 PM EDT 09/28/2024 11:42 PM EDT us Provider Not In System LAB BLOOD ORDERABLES F inal Result [facility] [address] [place] [address] documented in this encounter Visit Diagnoses Diagnosis Chronic respiratory failure with hypoxia Osteoarthritis of knee, unspecified Chronic kidney disease, unspecified Muscle weakness (generalized) documented in this encounter Care Teams Correctional Counselor Relationship Specialty Start Date End Date Carlos Gonzalez MD [address] [place], [place] [id number] PCP - General 08/30/20 documented as of this encounter
--- OUTSIDE RECORDS SUMMARY | 2024-10-04 00:18 | XMS_ITS | Encounter Summary ---
Author Organization [employer] Address [address] [place] [address] Care Team Providers Care Carton Marker Machine Name Role Phone Story, Norma Reynolds DANCE DIRECTOR Primary Care Provider [phone] Encounter Details Date Type Department Care Team (Latest Contact Info) Description 08/23/2024 Travel Social History Tobacco Use Types Packs/Day [...] Do you speak a language other than Swedish at [facility]? No 08/23/2024 Do you want help [...] Diagnoses Not on filedocumented in this encounter Care Teams Carton Marker Machine Relationship Specialty Start Date End Date Roe Norma Gail, DANCE DIRECTOR [address] [facility] [place] [place] [address] PCP - General Nurse Practitioner 08/23/24 documented as of this encounter
--- OUTSIDE RECORDS SUMMARY | 2024-10-04 00:18 | XMS_ITS | Encounter Summary ---
Author Organization [employer] Address [address] [place] [address] Care Team Providers Care Residential Roofer Name Role Phone Norma Au CROSSTIE INSPECTOR Primary Care Provider [phone] Reason for Visit * Reason Onset Date Comments Hospital Follow Up 08/28/2024 Encounter Details Date Type Department Care Team (Late st Contact Info) Description 08/28/2024 Telephone [facility] [address] [place] [address] Norma Au, CROSSTIE INSPECTOR [address] [facility] [place] [address] Hospital Follow Up Social History Tobacco Use Types Packs/Day Years Used Date Smoking Tobacco: Former Cigarettes Smokeless Tobacco: Never Comments:Patient was a 3 ppd smoker x 20 years. Stopped smoking in Alcohol Use Standard Drinks/Week Comments Never 0 (1 standard drink = 0.6 oz pur e alcohol) Utilities Answer Date Recorded In the past 12 months, has t he [employer], gas, oil, or water [employer] threatened to shut off services in your [...] Do you speak a language other than Slovak at [facility]? No 08/23/2024 Do you want help [...] on file documented as of this encounter Miscellaneous Notes * Telephone Encounter - Christine Shaffer - 08/28/2024 1:13 PM EDT Called pt with hospital follow up, she wanted it out further, called and rescheduled then called ptback 2x, no answer, no voicemail option, emailed all information documented in this encounter Plan of Treatment Not on file documented as of this encounter Visit Diagnoses Not on filedocumented in this encounter Care Teams Residential Roofer Relationship Specialty Start Date End Date Roe Norma Reynolds, CROSSTIE INSPECTOR [address] [facility] [place] [address] PCP - General Nurse Practitioner 08/23/24 documented as of this encounter
--- OUTSIDE RECORDS SUMMARY | 2024-10-04 00:18 | XMS_ITS | Encounter Summary ---
Author Organization [employer] Address [address] [place] [address] Care Team Providers Care Testing Specialist Name Role Phone Story, Norma Reynolds AGA Primary Care Provider [phone] Encounter Details Date Type Department Care Team (Late st Contact Info) Description 08/23/2024 Surgery Prep [facility] Surgery Department [address] [place] [address] Kiran Olmos MD [address] [facility] 2nd [place] [address] Social History Tobacco Use Types Packs/Day Years [...] your living situation today? I have a [facility] place to live 08/23/2024 Think about [...] Do you speak a language other than Sinhala at [facility]? No 08/23/2024 Do you want help with [...] on filedocumented in this encounter Care Teams Testing Specialist Relationship Specialty Start Date End Date Norma Au, ACETYLENE CYLINDER PACKING MIXER [address] [facility] [place] [address] PCP - General Nurse Practitioner 08/23/24 documented as of this encounter
--- OUTSIDE RECORDS SUMMARY | 2024-10-04 00:18 | XMS_ITS | Clinical Summary ---
Author Organization [facility] Address [address] [place] [address] Care Team Providers Care National Investigative Producer Name Role Phone Carlos Gonzalez MD Primary Care Provid er Encounters Date Type Department Care Team Description 09/28/2024 Lab Requisition [facility] [address] [place] [address] System, Provider Not In, Chronic respiratory failure with hypoxia; Osteoarthritis of knee, unspecified; Chronic kidney disease, unspecified; Muscle weakness (generalized) from Last 3 Months Family History Medical History Relation Name Comments Alcohol abuse Father Hypertension Mother Relation Name Status Comments Father Mother Social History Tobacco Use Types Packs/Day Years Used Date Smoking Tobacco: Former Alcohol Use Standard Drinks/Week Comments No 0 (1 standard drink = 0.6 oz pur e alcohol) Comments Unknown Sex and Gender Information Value Date Recorded Sex Assigned at Not on file Legal Sex Female 8:25 PM EDT Gender Identity Not on file Sexual Orientation Not on file Last Filed Vital Signs Vital Sign Reading Time Taken Comments Blood Pressure - - Pulse - - Temperature - - Respiratory Rate - - Oxygen Saturation - - Inhaled Oxygen Concentration - - Weight 121 kg (267 lb) 04/07/2017 2:04 PM EST Height 162.6 cm (5' 4 ) 04/07/2017 2:04 PM EST Body Mass Index 45.83 04/07/2017 2:04 PM EST Plan of Treatment Not on file Procedures Procedure Name Priority Date/Time Associated Diagnosis Comments N-TERMINAL PROBNP, PLASMA Routine 09/28/2024 11:00 PM EDT Chronic respiratory failure with hypoxia Osteoarthritis of knee, unspecified Chronic kidney disease, unspecified Muscle weakness (generalized) from Last 3 Months Results * N-Terminal Probnp (09/28/2024 11:00 PM EDT) N-Terminal, PROBNP, Plasma 793 0 - 8,593 pg/mL 09/28/2024 11:58 PM EDT [facility] Blood Venous blood specimen / Unknown 09/28/2024 11:00 PM EDT 09/28/2024 11:42 PM EDT us Provider Not In System LAB BLOOD ORDERABLES F inal Result [facility] [address] [place] [address] from Last 3 Months Care Teams National Investigative Producer Relationship Specialty Start Date End Date Carlos Gonzalez MD [address] [place] [address] PCP - General 08/30/20
--- OUTSIDE RECORDS SUMMARY | 2024-10-04 00:20 | XMS_ITS | Referral Summary ---
Author Organization [employer] Address [address] [place] [address] Care Team Providers Care Dye Reel Operator Helper Name Role Phone RoeJohnsuresh Reynolds APRN Primary Care Provider Encounters Date Type Department Care Team Description 08/28/2024 Telephone [facility] [id number] [place] [address] Norma Au APRN Hospital Follow Up 08/23/2024 6:11 AM EDT - 08/26/2024 11:00 AM EDT Hospital Encounter [facility] Telemetry Unit [address] [place] [address] Kiran Olmos MD Discharge Disposition: Usp Facility 08/23/2024 Travel 08/23/2024 Surgery Prep [facility] Surgery Department [address] [place] [address] Kiran Olmos MD 08/23/2024 9:15 AM EDT - 08/23/2024 11:33 AM EDT Surgery [facility] Surgery Department [address] [place] [address] Kiran Olmos MD RIGHT TOTAL KNEE ARTHROPLASTY 08/23/2024 9:13 AM EDT Anesthesia Event [facility] Surgery Department [address] [place] [address] Patricia Dumont CRNA Booker, Philip Craig, MD 08/09/2024 Travel 08/09/2024 11:00 AM EDT - 08/09/2024 11:59 PM EDT Hospital Encounter [facility] Preadmission Testing [address] [place] [address] Preop examination (Primary Dx); Chronic hypoxic respiratory failure (HCC); MARCELA (obstructive sleep apnea); Obesity, morbid, BMI 40.0-49.9 (HCC) Discharge Disposition: Home or Self Care 07/10/2024 1:04 PM EDT - 07/10/2024 11:59 PM EDT Hospital Encounter [facility] - [facility] [address] [place] [address] Kiran Olmos MD Pain in right knee Discharge Disposition: Home or Self Care from Last 3 Months Allergies Active Allergy Reactions Criticality Noted Date Comments Exenatide 08/09/2024 Can't remember Cephalosporins 08/09/2024 Patient can't remember-given in OR 08/24/24. No reaction reported. Codeine Hives High 10/30/2011 Can't remember Doxycycline 08/09/2024 Patient can't remember Glyburide 08/09/2024 Patient can't remember Latex Dermatitis High 10/30/2011 Patient can't remember Levofloxacin 08/09/2024 Patient can't remember Hyoscyamine Sulfate 08/09/2024 Patient can't remember Oxycodone 08/09/2024 Can't remember Penicillin Hives High 08/09/2024 Oxycodone-Aspirin 08/09/2024 Patient can't remember Sulfa (Sulfonamide Antibiotics) 08/09/2024 Patient can't remember Medications OXYGEN-AIR DELIVERY SYSTEMS MISC 2 liter at night time. . Active allopurinoL (ZYLOPRIM) 100 MG tablet Take 1 tablet (100 mg total) by mouth daily. Active torsemide (DEMADEX) 100 MG tablet Take 0.5 tablets (50 mg total) by mouth daily. Active spironolactone (ALDACTONE) 25 MG tablet Take 1 tablet (25 mg total) by mouth daily. Active Lantus Solostar U-100 Insulin 100 unit/mL (3 mL) inpn Inject 40 Units under the skin 2 (two) times daily. Active insulin aspart U-100 (NovoLOG U-100 Insulin aspart) 100 unit/mL injection Inject 15 Units under the skin 3 (three) times daily before meals. Active mupirocin (BACTROBAN) 2 % ointment 1 Application 3 (three) times daily. 5 Active albuterol 90 mcg/actuation inhaler Inhale 2 puffs by mouth every 6 (six) hours as needed for shortness of breath or wheezing. Active albuterol 2.5 mg /3 mL (0.083 %) nebulizer solution Inhale 3 mLs (2.5 mg total) by nebulization every 4 (four) hours as needed for wheezing or shortness of breath. Active ondansetron (ZOFRAN) 4 MG tablet Take 1 tablet (4 mg total) by mouth every 8 (eight) hours as needed for nausea. Active cholecalcifero l, vitamin D3, 2,000 unit tab Take 1 tablet (2,000 Units total) by mouth daily. Active traMADoL (ULTRAM) 50 mg tablet Take 1 tablet (50 mg total) by mouth every 6 (six) hours as needed for pain. Active acetaminophen (TYLENOL) 325 MG tablet Take 2 tablets (650 mg total) by mouth every 6 (six) hours as needed. 5 Active miconazole (MICOTIN) 2 % powder Apply topically 2 (two) times daily for 10 days. 70 g 5 09/05/19 25 insulin lispro (HUMALOG, ADMELOG) 100 unit/mL injection Inject 0-14 Units under the skin 4 (four) times daily before meals and nightly for 30 days 0 units for fingerstick blood glucose <140 mg/dL, 2u SQ for 140-180, 4u SQ for 181-220, 6u SQ for 221-260, 8u SQ for 261-300, 10u SQ for 301-350, 12u SQ for 351-400. 5 09/25/19 25 Active Problems Problem Noted Date Diagnosed Date Osteoarthritis, knee 08/23/2024 Asthma 08/09/2024 Chronic hypoxic respiratory failure 08/09/2024 CKD (chronic kidney disease) 08/09/2024 COPD (chronic obstructive pulmonary disease) CAD (coronary artery disease) 08/09/2024 DM (diabetes mellitus) 08/09/2024 Hyperlipemia 08/09/2024 HTN (hypertension) 08/09/2024 MARCELA (obstructive sleep apnea) 08/09/2024 Obesity, morbid, BMI 40.0-49.9 08/09/2024 Social History Tobacco Use Types Packs/Day Years [...] your living situation today? [facility] 08/23/2024 Think about [...] Do you speak a language other than [place] at [facility]? No 08/23/2024 Do you want help with [...] Mass Index 43.2 08/23/2024 2:38 PM EDT Plan of Treatment Not on file Medical Devices Implanted Type Area Clinical Sciences Professor Device Identifier Shelf Expiration Date Model / Serial / Lot Cement Bone Smplx Tobra 40gm 6197-9-001 - [id number] Implanted:Qty : 2 on 08/23/2024 by Kiran Olmos MD at [facility] IMPLANTS Right: Knee [employer] 10/16/2025 [id number] / / [id number] Pwdr Cellerate Clgn 1gm Strl [id number] - [id number] Implanted:Qty : 1 on 08/23/2024 by Kiran Olmos MD at [facility] IMPLANTS Right: Knee [employer] 08/31/2026 I-01-SA CRXP / / [id number] Patella Itotal 35x7mm [id number] - [id number] Implanted:Qty : 1 on 08/23/2024 by Kiran Olmos MD at [facility] TOTAL JOINT [employer]STRU[employer] Right: Knee [employer]FORMIS 06/16/2026 [id number] / / [id number] Kt Itotal Id Ps Full Xe Itps-Xe-1pc - [id number] Implanted:Qty : 1 on 08/23/2024 by Kiran Olmos MD at [facility] TOTAL JO[employer] Right: Knee [employer] 08/16/2025 ITPS-XE-1 PC / [id number] / Imp Itotal Id Ps Fem Attila Lt [id number] - [id number] Implanted:Qty : 1 on 08/23/2024 by Kiran Olmos MD at [facility] TOTAL [employer] Right: Knee [employer] 08/16/2025 [id number] / Ty Itotal Id Ps Tib Attila Lt [id number] - [id number] Implanted:Qty : 1 on 08/23/2024 by Kiran Olmos MD at [facility] TOTAL [employer] Right: Knee [employer] 08/16/2025 [id number] / Procedures Procedure Name Priority Date/Time Associated Diagnosis [...] GLUCOSE POC Routine 08/25/2024 5:00 AM EDT BASIC METABOLIC PANEL Routine 08/25/2024 4:36 AM EDT CBC W/ AUTO DIFF Routine 08/25/2024 4:36 AM EDT NOVA GLUCOSE [...] POC Routine 08/23/2024 11:1 6 AM EDT ANESTHESIA INTUBATION Routine 08/23/2024 9:23 AM EDT MN ARTHRP KNE CONDYLE&PLATU MEDIAL&LAT COMPARTMENTS 08/23/2024 9:13 AM EDT Unilateral primary osteoarthritis, right knee Case Notes [employer]FORMIS HC PERIPHERAL NERVE BLOCK SINGLE SHOT Routine 08/23/2024 9:02 AM EDT NOVA GLUCOSE POC Routine 08/23/2024 6:43 AM EDT VITAMIN D, 25-HYDROXY Routine 08/09/2024 11:20 AM EDT Preop examination PROTHROMBIN TIME/INR Routine 08/09/2024 11:20 AM EDT Preop examination PREALBUMIN Routine 08/09/2024 11:20 AM EDT Preop examination NICOTINE & METS, S/P, QUANT(SENDOUT) Routine 08/09/2024 11:20 AM EDT Preop examination HEMOGLOBIN A1C Routine 08/09/2024 11:20 AM EDT Preop examination FRUCTOSAMINE(SENDOUT ) Routine 08/09/2024 11:20 AM EDT Preop examination COMPREHENSIVE METABOLIC PANEL Routine 08/09/2024 11:20 AM EDT Preop examination CBC W/ AUTO DIFF Routine 08/09/2024 11:2 0 AM EDT Preop examination APTT Routine 08/09/2024 11:20 AM EDT Preop examination MRSA SCREEN Routine 08/09/2024 11:20 AM EDT Preop examination FS_MODEL_IP_ECG 12-LEAD Routine 08/09/2024 10:54 AM EDT Preop examination CT LOWER EXTREMITY WITHOUT IV CONTRAST RIGHT Routine 07/10/2024 1:33 PM EDT Pain in right knee from Last 3 Months Results * (ABNORMAL) Glucose, Nova Meter (08/26/2024 8:22 AM EDT) Only the most recent of15 resultswithin the time period is included. POC-GLUCOSE 157(H) 70 - 110 mg/dL 08/26/2024 8:23 AM EDT [facility] Comment: In the event of poor peripheral blood flow, venous or arterial blood should be used due to the potential of erroneous results. Notified Nurse RBV Event Promotions Coordinator [phone] 08/26/2024 8:23 AM EDT [facility] Blood WHOLE BLOOD / Unknown 08/26/2024 8:22 AM EDT 08/26/2024 8:23 AM EDT Narrative [facility] - 08/26/2024 8:23 AM EDT Event Promotions Coordinator ID is - [id number] us Kiran Olmos MD POINT OF CARE TEST ORDERABLES Fi nal Result [facility] [address] [phone] * Hemoglobin and hematocrit (08/26/2024 3:11 AM EDT) Hemoglobin 14.6 11.2 - 15.7 GM/DL 08/26/2024 3:15 AM EDT [facility] Hematocrit 44.3 34.1 - 44.9 % 08/26/2024 3:15 AM EDT [facility] Blood Venipuncture / Unknown 08/26/2024 3:11 AM EDT 08/26/2024 3:11 AM EDT us Luly Finnegan PA-C LAB BLOOD ORDERABLES Final Res ult [facility] [address] [phone] * (ABNORMAL) Basic Metabolic Panel (08/26/2024 3:10 AM EDT) Only the most recent of3 resultswithin the time period is included. Sodium 136 136 - 146 meq/L 08/26/2024 3:34 AM EDT [facility] Potassium 4.0 3.5 - 5.1 meq/L 08/26/2024 3:34 AM EDT [facility] Chloride 100(L) 102 - 112 meq/L 08/26/2024 3:34 AM EDT [facility] CO2 32 21 - 32 meq/L 08/26/2024 3:34 AM EDT [facility] Anion Gap 8(L) 9 - 20 08/26/2024 3:34 AM EDT [facility] BUN 36(H) 7 - 22 mg/dL 08/26/2024 3:34 AM EDT [facility] Creatinine 1.22(H) 0.55 - 1.02 mg/dL 08/26/2024 3:34 AM EDT [facility] BUN/Creatinine 30(H) 8 - 20 08/26/2024 3:34 AM EDT [facility] Glucose 125(H) 74 - 106 mg/dL 08/26/2024 3:34 AM EDT [facility] Calcium 8.6 8.5 - 10.1 mg/dL 08/26/2024 3:34 AM EDT [facility] Osmolality Calc 281.8 mOsm/kg 3:34 AM EDT [facility] eGFR (mL/min/1.73m2) 43(L) >=60 mL/min/1.7 3m2 08/26/2024 3:34 AM EDT [facility] Comment:eGFR of <60 suggests chronic kidney disease if found over a 3 month period of time. eGFR <15 indicates renal failure. Blood Venipuncture / Unknown 08/26/2024 3:10 AM EDT 08/26/2024 3:10 AM EDT us Luly Finnegan PA-C LAB BLOOD ORDERABLES Final Res ult [facility] [address] [place] [address] * (ABNORMAL) CBC with automated diff (08/25/2024 4:36 AM EDT) Only the most recent of3 resultswithin the time period is included. WBC 11.7(H) 3.9 - 10.0 K/ L 08/25/2024 4:54 AM EDT [facility] RBC 5.97 3.93 - 6.08 M/ L 08/25/2024 4:54 AM EDT [facility] Hemoglobin 17.6(H) 11.2 - 15.7 GM/DL 08/25/2024 4:54 AM EDT [facility] Hematocrit 54.0(H) 34.1 - 44.9 % 08/25/2024 4:54 AM EDT [facility] MCV 91 79 - 95 fL 08/25/2024 4:54 AM EDT [facility] MCH 29.5 25.6 - 32.2 pg 08/25/2024 4:54 AM EDT [facility] MCHC 32.6 32.2 - 36.5 GM/DL 08/25/2024 4:54 AM EDT [facility] RDW 14.9(H) 11.6 - 14.4 % 08/25/2024 4:54 AM EDT [facility] Platelets 119(L) 163 - 369 K/CU MM 08/25/2024 4:54 AM EDT [facility] MPV 9.7 9.4 - 12.4 fL 08/25/2024 4:54 AM EDT [facility] % Neutros 65 34 - 71 % 08/25/2024 4:54 AM EDT [facility] % Lymphs 18(L) 19 - 53 % 08/25/2024 4:54 AM EDT [facility] % Monos 15(H) 4 - 13 % 08/25/2024 4:54 AM EDT [facility] % Eos 1 1 - 7 % 08/25/2024 4:54 AM EDT [facility] % Baso 1 0 - 1 % 08/25/2024 4:54 AM EDT [facility] # Neutros 7.54(H) 1.56 - 6.13 K/ L 08/25/2024 4:54 AM EDT [facility] # Lymphs 2.12 1.18 - 3.74 K/ L 08/25/2024 4:54 AM EDT [facility] # Monos 1.79(H) 0.24 - 0.82 K/ L 08/25/2024 4:54 AM EDT [facility] # Eos 0.13 0.04 - 0.54 K/ L 08/25/2024 4:54 AM EDT [facility] # Baso 0.06 0.01 - 0.08 K/ L 08/25/2024 4:54 AM EDT [facility] Immature Granulocytes-Re lative 0.40 0.00 - 0.60 % 08/25/2024 4:54 AM EDT [facility] # IG 0.05 0.00 - 0.05 K/uL 08/25/2024 4:54 AM EDT [facility] Blood Venipuncture / Unknown 08/25/2024 4:36 AM EDT 08/25/2024 4:36 AM EDT Narrative [facility] - 08/25/2024 4:54 AM EDT [...] MD LAB BLOOD ORDERABLES Final Resul t [facility] [address] [phone] * AN SINGLE LUMEN INTUBATION (08/23/2024 9:23 AM EDT) Patricia Purdy CRNA - 08/23/2024 9:23 AM EDT Patricia [...] supine Prep: ChloraPrep Patient monitoring: heart rate, cardiac technologist and continuous pulse ox Block type: adductor [...] Olmos MD ANESTHESIA ORDERABLES Final Resu lt * Nicotine & Mets, S/P, Quant(SENDOUT) (08/09/2024 11:20 AM EDT) [facility] Cotinine, S/P, Quant <5 ng/mL 08/15/2024 8:52 AM EDT [facility] Nicotine, S/P, Quant <5 ng/mL 08/15/2024 8:52 AM EDT [facility] Comment: INTERPRETIVE INFORMATION: Nicotine and Metabolites, Serum [...] developed and its performance characteristics determined by [facility]. It has not been cleared or approved by the [place] Food and Drug Administration. This test was performed in a CLIA certified laboratory and is intended for clinical purposes. Performed By: [facility] [address] [place] [id number] Culinary Instructor: Yony Gordillo MD, PhD CLIA Number: [id number] Blood Venipuncture / Unknown 08/09/2024 11:20 AM EDT 08/09/2024 12:09 PM EDT us Kiran Olmos MD LAB BLOOD ORDERABLES Final Resul t Performing Organization Address [facility] de Phone Number [facility] [address] [phone] * (ABNORMAL) Fructosamine(SENDOUT) (08/09/2024 11:20 AM EDT) Fructosamine 319(H) 205 - 285 umol/L 08/12/2024 3:35 PM EDT [facility] Comment: INTERPRETIVE INFORMATION: Fructosamine Variations in levels of serum proteins (albumin and immunoglobulins) may affect fructosamine results. Performed By: [facility] [address] [place] [address] Culinary Instructor: Yony Gordillo MD, PhD CLIA Number: [id number] Blood Venipuncture / Unknown 08/09/2024 11:20 AM EDT 08/09/2024 12:09 PM EDT us Kiran Olmos MD LAB BLOOD ORDERABLES Final Resul t Performing Organization Address [facility] de Phone Number [facility] [address] [phone] * Vitamin D, 25-Hydroxy (08/09/2024 11:20 AM EDT) Vitamin D 25-Hydroxy 49.52 30.0 - 100.0 ng/mL 08/09/2024 12:46 PM EDT [facility] Blood Venipuncture / Unknown 08/09/2024 11:20 AM EDT 08/09/2024 12:09 PM EDT us Kiran Olmos MD LAB BLOOD ORDERABLES Final Resul t Performing Organization Address City/[facility] Co de Phone Number [facility] [address] [place] [address] * aPTT (08/09/2024 11:20 AM EDT) aPTT 25.9 22.0 - 32.0 seconds 08/09/2024 12:28 PM EDT [facility] Blood Venipuncture / Unknown 08/09/2024 11:20 AM EDT 08/09/2024 12:09 PM EDT Kiran Olmos MD LAB BLOOD ORDERABLES Final Resul t Performing Organization Address [facility]/ZIP Co de Phone Number [facility] [address] [phone] * Prothrombin time/INR (08/09/2024 11:20 AM EDT) Pathologist [facility] Protime 11.3 9.0 - 12.0 seconds 08/09/2024 12:28 PM EDT [facility] INR 1.04 0.80 - 1.10 08/09/2024 12:28 PM EDT [facility] Comment: Recommended therapeutic ranges using [...] MD LAB BLOOD ORDERABLES Final Resul t [facility] [address] [phone] * MRSA Screen (08/09/2024 11:20 AM EDT) MRSA by PCR [facility] MRSA Not Detected by PCR MRSA Not Detected by PCR DEVICE ID9 08/09/2024 4:[address] [facility] Nasal BOTH ANTERIOR NARES / Unknown 08/09/2024 11:20 AM EDT 08/09/2024 12:09 PM EDT us Kiran Olmos MD MICROBIOLOGY - GENERAL ORDERABLE S Final Result Performing Organization Address City/[facility]/ZIP Co de Phone Number [facility] [address] [phone] * Prealbumin (08/09/2024 11:20 AM EDT) Prealbumin 21 20 - 40 mg/dL 08/09/2024 12:46 PM EDT [facility] Blood Venipuncture / Unknown 08/09/2024 11:20 AM EDT 08/09/2024 12:09 PM EDT us Kiran Olmos MD LAB BLOOD ORDERABLES Final Resul t Performing Organization Address [facility] Co me Phone Number [facility] [address] [phone] * (ABNORMAL) Hemoglobin A1c (08/09/2024 11:20 AM EDT) Hemoglobin A1C 7.7(H) 4.2 - 6.3 % 08/09/2024 12:43 PM EDT [facility] Comment: Hemoglobin A1C levels are related to mean glucose during the preceding 2-3 months. Less than 7% demonstrates glycemic control in diabetic patients. Hemoglobin AlC % Suggested Diagnosis > or = 6.5 Diabetic 5.7 - 6.4 Prediabetic <5.7 Non-diabetic eAVG Glucose 174.29 mg/dL 08/09/2024 12:43 PM EDT [facility] Blood Venipuncture / Unknown 08/09/2024 11:20 AM EDT 08/09/2024 12:09 PM EDT us Kiran Olmos MD LAB BLOOD ORDERABLES Final Resul t Performing Organization Address [facility]/ZIP Co de Phone Number [facility] [address] [phone] * (ABNORMAL) Comprehensive metabolic panel (08/09/2024 11:20 AM EDT) Sodium 139 136 - 146 meq/L 08/09/2024 12:46 PM EDT [facility] Potassium 3.9 3.5 - 5.1 meq/L 08/09/2024 12:46 PM T [facility] Chloride 100(L) 102 - 112 meq/L 08/09/2024 12:46 PM T [facility] CO2 33(H) 21 - 32 meq/L 08/09/2024 12:46 PM T [facility] Calcium 9.5 8.5 - 10.1 mg/dL 08/09/2024 12:46 PM T [facility] Glucose 137(H) 74 - 106 mg/dL 08/09/2024 12:46 PM T [facility] BUN 35(H) 7 - 22 mg/dL 08/09/2024 12:46 PM T [facility] Creatinine 1.52(H) 0.55 - 1.02 mg/dL 08/09/2024 12:46 PM T [facility] BUN/Creatinine 23(H) 8 - 20 08/09/2024 12:46 PM T [facility] Albumin 3.7 3.4 - 5.0 g/dL 08/09/2024 12:46 PM T [facility] Alkaline Phosphatase 82 27 - 136 U/L 08/09/2024 12:46 PM T [facility] ALT 20 12 - 78 U/L 08/09/2024 12:46 PM T [facility] AST 22 5 - 37 U/L 08/09/2024 12:46 PM T [facility] Total Bilirubin 0.6 0.2 - 1.3 mg/dL 08/09/2024 12:46 PM T [facility] Protein, Total 6.8 6.4 - 8.2 gm/dL 08/09/2024 12:46 PM T [facility] Anion Gap 10 9 - 20 08/09/2024 12:46 PM T [facility] A/G Ratio 1.2 1.1 - 2.5 08/09/2024 12:46 PM EDT [facility] Globulin 3.1 1.5 - 4.5 g/dL 08/09/2024 12:46 PM EDT [facility] Osmolality Calc 287.7 mOsm/kg 12:46 PM EDT [facility] eGFR (mL/min/1.73m2) 33(L) >=60 mL/min/1.7 3m2 08/09/2024 12:46 PM EDT [facility] Comment:ESTIMATED GFR IS NOT ACCURATE CREATININE CLEARANCE IN PREDICTING GLOMERULAR FILTRATION RATE. ESTIMATED GFR IS NOT APPLICABLE FOR DIALYSIS PATIENTS. Blood Venipuncture / Unknown 08/09/2024 11:20 AM EDT 08/09/2024 12:09 PM EDT Kiran Olmos MD LAB BLOOD ORDERABLES Final Resul t Performing Organization Address City/[facility] Co de Phone Number [facility] [address] [place] [address] * ECG 12 lead (08/09/2024 10:54 AM EDT) VENTRICULAR RATE EKG/MIN 65 BPM GE MUSE ATRIAL RATE (MCT) 65 BPM GE MUSE MN Interval 160 ms GE MUSE QRS-INTERVAL (MSEC) 154 ms GE MUSE QT Interval 438 ms GE MUSE QTC Interval 455 ms GE MUSE R AXIS (MCT) -32 degrees GE MUSE T Wave [place] 121 degrees GE MUSE [place] Diagnosis Sinus rhythm with premature atrial complexes Left axis deviation Left bundle branch block Abnormal ECG Confirmed by John KABA SUZANNE ([id number]) on 08/09/2024 1:06:07 PM GE MUSE 08/09/2024 10:5 4 AM EDT 08/09/2024 1:06 PM EDT Kiran Olmos MD ECG ORDERABLES Final Result Performing Organization Address City/[facility]/ZIP Co de Phone Number GE MUSE * CT lower extremity without IV contrast right (07/10/2024 1:33 PM EDT) Anatomical Region Laterality Modality Lower Extremity, Hip, Femur, Leg, Knee, Ankle, Foot Computed Tomography (CT) 07/10/2024 2:27 PM EDT Impressions 07/10/2024 2:39 PM EDT Degenerative joint disease. Images reviewed, interpreted, and dictated by Dr. Antwon Yun. Transcribed by Yesenia Cano PA-C. Narrative 07/10/2024 2:[address] SCAN RIGHT LOWER EXTREMITY 07/10/2024 1:18 [...] of the patella. These measure 4 mm. Procedure Note Antwon Yun MD - 07/10/2024 CT SCAN RIGHT LOWER EXTREMITY 07/10/2024 1:18 [...] of the patella. These measure 4 mm. IMPRESSION: Degenerative joint disease. Images reviewed, interpreted, and dictated by Dr. Antwon Yun. Transcribed by Yesenia Cano PA-C. Kiran Olmos MD IMG CT ORDERABLES Final Result from Last 3 Months Insurance BLUE CROSS/BLUE SHIELD Member Subscriber Plan / Payer (Ef fective 2024-Present) Name:Denisa Sanonbeth Relation to Subscriber:Self Name:Denisa Sanon [employer] Payer ID:Not on file Group ID:[id number] Type:Not on file Address[address] [address] [employer] ACCESS PPO MAP Advance Directives For more information, please contact: [phone] * Full Code (Latest Code Status on File) Date Activated Date Inactivated Comments 08/23/2024 11:33 AM 08/26/2024 1:06 PM * Full Code Date Activated Date Inactivated Comments 08/23/2024 6:38 AM 08/23/2024 11:33 AM Care Teams Dye Reel Operator Helper Relationship Specialty Start Date End Date Roe Norma Reynolds, MANOMETER TECHNICIAN [address] [facility] [place] [id number] PCP - General Nurse Practitioner 08/23/24
--- OUTSIDE RECORDS SUMMARY | 2024-10-04 00:20 | XMS_ITS | Clinical Summary ---
Author Organization [employer]holder [employer] Address [address] [place] [address] Care Team Providers Care Chocolate Dipper Name Role Phone Story, Norma Reynolds AGA Primary Care Provider [phone] Allergies Active Allergy Reactions Criticality Noted Date [...] apnea) 08/09/2024 Obesity, morbid, BMI 40.0-49.9 08/09/2024 Encounters Date Type Department Care Team Description 08/28/[address] [address] Norma Au, [facility] Follow Up 08/23/2024 9:15 AM EDT - 08/23/2024 11:33 AM EDT Surgery [facility] Surgery Department [address] [place] [address] Kiran Olmos MD RIGHT TOTAL KNEE ARTHROPLASTY 08/23/2024 9:13 AM EDT Anesthesia Event [facility] Surgery Department [address] [place] [address] Patricia Dumont CRNA Booker, Tayo Rodrigues MD 08/23/2024 6:11 AM EDT - 08/26/2024 11:00 AM EDT Hospital Encounter [facility] Telemetry Unit [address] [place] [address] Kiran Olmos MD Discharge Disposition: Jail Facility 08/23/2024 Travel 08/23/2024 Surgery Prep [facility] Surgery Department [address] [place] [address] Kiran Olmos MD 08/09/2024 11:00 AM EDT - 08/09/2024 11:59 PM EDT Hospital Encounter [facility] Preadmission Testing [address] [facility] [address] [place] [address] Preop examination (Primary Dx); Chronic hypoxic respiratory failure (HCC); MARCELA (obstructive sleep apnea); Obesity, morbid, BMI 40.0-49.9 (HCC) Discharge Disposition: Home or Self Care 08/09/2024 Travel 07/10/2024 1:04 PM EDT - 07/10/2024 11:59 PM EDT Hospital Encounter [facility] [address] [place] [address] Kiran Olmos MD Pain in right knee Discharge Disposition: Home or Self Care from Last 3 Months Social History Tobacco Use Types Packs/Day Years [...] your living situation today? I have a [facility] place to live 08/23/2024 Think about the [...] speak a language other than [place] at [facility]? No 08/23/2024 Do you want help [...] 08/23/2024 2:38 PM EDT Plan of Treatment Health Maintenance Due Date Last Done Comments Diabetic Eye Exam 1950 Diabetic foot exam 1948 Depression Screening (12+) 1950 DTAP/TDAP/TD VACCINES (1 - Tdap) 1957 Respiratory Syncytial Virus (RSV) Adult or (1 - 1-dose 75+ series) 2013 Shingles Vaccine (Zoster) (2 of 2) 04/07/20232022 COVID-19 VACCINE ( - season) 2023 Falls Risk Screening 04/19/2024 Medicare IPPE (Welcome to Medicare) G0402 04/19/2024 Influenza Vaccine (Season Ended) 2024 01/22/20 20 Hemoglobin A1C 02/08/2025 08/09/2024 Tobacco Cessation Counseling and Screening (12+) 08/2308/23/2024 Pneumococcal 50+ years Completed 02/10/2023 Medical Devices Implanted Type Area C D Reactor Operator Device Identifier Shelf Expiration Date Model / Serial / Lot Cement Bone Smplx Tobra 40gm 6197-9-001 - [id number] Implanted:Qty : 2 on 08/23/2024 by Kiran Olmos MD at [facility] IMPLANTS Right: Knee [employer] 10/16/2025 [id number] 1 / / [id number] Pwdr Cellerate Clgn 1gm Strl Bvb-07-Qpycdx - [id number] Implanted:Qty : 1 on 08/23/2024 by Kiran Olmos MD at [facility] IMPLANTS Right: Knee [employer] 08/31/2026 WCI-01-SA CRXP / / [id number] Patella Itotal 35x7mm [id number] - [id number] Implanted:Qty : 1 on 08/23/2024 by Kiran Olmos MD at [facility] TOTAL JOINT CONSTRUCT Right: Knee [employer]IS 06/16/2026 [id number] / / [id number] Kt Itotal Id Ps Full Xe Itps-Xe-1pc - [id number] Implanted:Qty : 1 on 08/23/2024 by Kiarn Olmos MD at [facility] TOTAL JOINT [employer]STRU[employer] Right: Knee [employer]FORMIS 08/16/2025 ITPS-XE-1 PC / [id number] / Imp Itotal Id Ps Fem Attila Lt [id number] - [id number] Implanted:Qty : 1 on 08/23/2024 by Kiran Olmos MD at [facility] TOTAL JOINT [employer]STRU[employer] Right: Knee [employer]IS 08/16/2025 [id number] / [id number] / Ty Itotal Id Ps Tib Attila Lt [id number] - [id number] Implanted:Qty : 1 on 08/23/2024 by Kiran Olmos MD at [facility] TOTAL JOINT CONSTRU[employer] Right: Knee CONFORMIS 08/16/2025 [id number] / Procedures Procedure Name Priority Date/Time Associated [...] ANESTHESIA INTUBATION Routine 08/23/2024 9:23 AM EDT PA ARTHRP KNE CONDYLE&PLATU MEDIAL&LAT COMPARTMENTS 08/23/2024 9:13 [...] - 110 mg/dL 08/26/2024 8:23 AM EDT [facility] Comment: In the event of poor peripheral blood flow, venous or arterial blood should be used due to the potential of erroneous results. Notified Nurse RBV Brokerage Manager [phone] 08/26/2024 8:23 AM EDT [facility] Blood WHOLE BLOOD / Unknown 08/26/2024 8:22 AM EDT 08/26/2024 8:23 AM EDT Narrative [facility] - 08/26/2024 8:23 AM EDT Brokerage Manager ID is - [id number] us Kiran Olmos MD POINT OF CARE TEST ORDERABLES Fi nal Result Performing Organization Address [facility] Co de Phone Number [facility] [address] [phone] * Hemoglobin and hematocrit (08/26/2024 3:11 AM EDT) Hemoglobin 14.6 11.2 - 15.7 GM/DL 08/26/2024 3:15 AM EDT [facility] Hematocrit 44.3 34.1 - 44.9 % 08/26/2024 3:15 AM EDT [facility] Blood Venipuncture / Unknown 08/26/2024 3:11 AM EDT 08/26/2024 3:11 AM EDT Luly Finnegan PA-C LAB BLOOD ORDERABLES Final Res ult Performing Organization Address [facility] Co de Phone Number [facility] [address] [phone] * (ABNORMAL) Basic Metabolic Panel (08/26/2024 3:10 AM EDT) Only the most recent of3 resultswithin the time period is included. Sodium 136 136 - 146 meq/L 08/26/2024 3:34 AM EDT [facility] Potassium 4.0 3.5 - 5.1 meq/L 08/26/2024 3:34 AM EDT [facility] Chloride 100(L) 102 - 112 meq/L 08/26/2024 3:34 AM EDT [facility] CO2 32 21 - 32 meq/L 08/26/2024 3:34 AM EDT [facility] Anion Gap 8(L) 9 - 20 08/26/2024 3:34 AM EDT [facility] BUN 36(H) 7 - 22 mg/dL 08/26/2024 3:34 AM EDT [facility] Creatinine 1.22(H) 0.55 - 1.02 mg/dL 08/26/2024 3:34 AM EDT [facility] BUN/Creatinine 30(H) 8 - 20 08/26/2024 3:34 AM EDT [facility] Glucose 125(H) 74 - 106 mg/dL 08/26/2024 3:34 AM EDT [facility] Calcium 8.6 8.5 - 10.1 mg/dL 08/26/2024 3:34 AM EDT [facility] Osmolality Calc 281.8 mOsm/kg 3:34 AM EDT [facility] eGFR (mL/min/1.73m2) 43(L) >=60 mL/min/1.7 3m2 08/26/2024 3:34 AM EDT [facility] Comment:eGFR of <60 suggests chronic kidney disease if found over a 3 month period of time. eGFR <15 indicates renal failure. Blood Venipuncture / Unknown 08/26/2024 3:10 AM EDT 08/26/2024 3:10 AM EDT us Luly Finnegan PA-C LAB BLOOD ORDERABLES Final Res ult [facility] [address] [id number], [facility] [phone] * (ABNORMAL) CBC with automated diff (08/25/2024 4:36 AM EDT) Only the most recent of3 resultswithin the time period is included. WBC 11.7(H) 3.9 - 10.0 K/ L 08/25/2024 4:54 AM EDT [facility] RBC 5.97 3.93 - 6.08 M/ L 08/25/2024 4:54 AM EDT [facility] Hemoglobin 17.6(H) 11.2 - 15.7 GM/DL 08/25/2024 4:54 AM EDT [facility] Hematocrit 54.0(H) 34.1 - 44.9 % 08/25/2024 4:54 AM EDT [facility] MCV 91 79 - 95 fL 08/25/2024 4:54 AM EDT [facility] MCH 29.5 25.6 - 32.2 pg 08/25/2024 4:54 AM EDT [facility] MCHC 32.6 32.2 - 36.5 GM/DL 08/25/2024 4:54 AM EDT [facility] RDW 14.9(H) 11.6 - 14.4 % 08/25/2024 4:54 AM EDT [facility] Platelets 119(L) 163 - 369 K/CU MM 08/25/2024 4:54 AM EDT [facility] MPV 9.7 9.4 - 12.4 fL 08/25/2024 4:54 AM EDT [facility] % Neutros 65 34 - 71 % 08/25/2024 4:54 AM EDT [facility] % Lymphs 18(L) 19 - 53 % 08/25/2024 4:54 AM EDT [facility] % Monos 15(H) 4 - 13 % 08/25/2024 4:54 AM EDT [facility] % Eos 1 1 - 7 % 08/25/2024 4:54 AM EDT [facility] % Baso 1 0 - 1 % 08/25/2024 4:54 AM EDT [facility] # Neutros 7.54(H) 1.56 - 6.13 K/ L 08/25/2024 4:54 AM EDT [facility] # Lymphs 2.12 1.18 - 3.74 K/ L 08/25/2024 4:54 AM EDT [facility] # Monos 1.79(H) 0.24 - 0.82 K/ L 08/25/2024 4:54 AM EDT [facility] # Eos 0.13 0.04 - 0.54 K/ L 08/25/2024 4:54 AM EDT [facility] # Baso 0.06 0.01 - 0.08 K/ L 08/25/2024 4:54 AM EDT [facility] Immature Granulocytes-Re lative 0.40 0.00 - 0.60 % 08/25/2024 4:54 AM EDT [facility] # IG 0.05 0.00 - 0.05 K/uL 08/25/2024 4:54 AM EDT [facility] Blood Venipuncture / Unknown 08/25/2024 4:36 AM EDT 08/25/2024 4:36 AM EDT Narrative [facility] - 08/25/2024 4:54 AM EDT When [...] MD LAB BLOOD ORDERABLES Final Resul t [facility] [address] [place] [address], [facility] [phone] * AN SINGLE LUMEN INTUBATION (08/23/2024 9:23 [...] supine Prep: ChloraPrep Patient monitoring: heart rate, surveillance system monitor and continuous pulse ox Block type: adductor [...] injection: yes Additional Notes Procedural sedation given Kiran Olmos MD ANESTHESIA ORDERABLES Final Resu lt * Nicotine & Mets, S/P, Quant(SENDOUT) (08/09/2024 11:20 AM EDT) Cotinine, S/P, Quant <5 ng/mL 08/15/2024 8:52 AM EDT [facility] Nicotine, S/P, Quant <5 ng/mL 08/15/2024 8:52 AM EDT [facility] Comment: INTERPRETIVE INFORMATION: Nicotine and Metabolites, Serum [...] developed and its performance characteristics determined by [facility]. It has not been cleared or approved by the [place] Food and Drug Administration. This test was performed in a CLIA certified laboratory and is intended for clinical purposes. Performed By: [facility] [address] [place] [address] Gallery Director: Yony Gordillo MD, PhD CLIA Number: [id number] Blood Venipuncture / Unknown 08/09/2024 11:20 AM EDT 08/09/2024 12:09 PM EDT us Kiran Olmos MD LAB BLOOD ORDERABLES Final Resul t [facility] [address] [place] [address], [facility] [phone] * (ABNORMAL) Fructosamine(SENDOUT) (08/09/2024 11:20 AM EDT) Fructosamine 319(H) 205 - 285 umol/L 08/12/2024 3:35 PM EDT [facility] Comment: INTERPRETIVE INFORMATION: Fructosamine Variations in levels of serum proteins (albumin and immunoglobulins) may affect fructosamine results. Performed By: [facility] [address] [place] [address] Gallery Director: Yony Gordillo MD, PhD CLIA Number: [id number] Blood Venipuncture / Unknown 08/09/2024 11:20 AM EDT 08/09/2024 12:09 PM EDT us Kiran Olmos MD LAB BLOOD ORDERABLES Final Resul t [facility] [address] [place] [address], [facility] [phone] * Vitamin D, 25-Hydroxy (08/09/2024 11:20 AM EDT) Vitamin D 25-Hydroxy 49.52 30.0 - 100.0 ng/mL 08/09/2024 12:46 PM EDT [facility] Blood Venipuncture / Unknown 08/09/2024 11:20 AM EDT 08/09/2024 12:09 PM EDT us Kiran Olmos MD LAB BLOOD ORDERABLES Final Resul t Performing Organization Address City/[facility]/ZIP Co de Phone Number [facility] [address] [phone] * aPTT (08/09/2024 11:20 AM EDT) aPTT 25.9 22.0 - 32.0 seconds 08/09/2024 12:28 PM EDT [facility] Blood Venipuncture / Unknown 08/09/2024 11:20 AM EDT 08/09/2024 12:09 PM EDT us Kiran Olmos MD LAB BLOOD ORDERABLES Final Resul t [facility] [address] [phone] * Prothrombin time/INR (08/09/2024 11:20 AM EDT) Protime 11.3 9.0 - 12.0 seconds 08/09/2024 12:28 PM EDT [facility] INR 1.04 0.80 - 1.10 08/09/2024 12:28 PM EDT [facility] Comment: Recommended therapeutic ranges using International [...] ORDERABLES Final Resul t Performing Organization Address City/[facility]/ZIP Co de Phone Number [facility] [address] [phone] * MRSA Screen (08/09/2024 11:20 AM EDT) Pathologist [facility] MRSA by PCR [facility] MRSA Not Detected by PCR MRSA Not Detected by PCR DEVICE ID9 08/09/2024 4:18 PM EDT [facility] Nasal BOTH ANTERIOR NARES / Unknown 08/09/2024 11:20 AM EDT 08/09/2024 12:09 PM EDT us Kiran Olmos MD MICROBIOLOGY - GENERAL ORDERABLE S Final Result Performing Organization Address [facility] Co de Phone Number [facility] [address] [phone] * Prealbumin (08/09/2024 11:20 AM EDT) [facility] Prealbumin 21 20 - 40 mg/dL 08/09/2024 12:46 PM EDT [facility] Blood Venipuncture / Unknown 08/09/2024 11:20 AM EDT 08/09/2024 12:09 PM EDT us Kiran Olmos MD LAB BLOOD ORDERABLES Final Resul t Performing Organization Address [facility] Co de Phone Number [facility] [address] [phone] * (ABNORMAL) Hemoglobin A1c (08/09/2024 11:20 AM EDT) Hemoglobin A1C 7.7(H) 4.2 - 6.3 % 08/09/2024 12:43 PM EDT [facility] Comment: Hemoglobin A1C levels are related to mean glucose during the preceding 2-3 months. Less than 7% demonstrates glycemic control in diabetic patients. Hemoglobin AlC % Suggested Diagnosis > or = 6.5 Diabetic 5.7 - 6.4 Prediabetic <5.7 Non-diabetic eAVG Glucose 174.29 mg/dL 08/09/2024 12:43 PM EDT [facility] Blood Venipuncture / Unknown 08/09/2024 11:20 AM EDT 08/09/2024 12:09 PM EDT us Kiran Olmos MD LAB BLOOD ORDERABLES Final Resul t [facility] [address] [phone] * (ABNORMAL) Comprehensive metabolic panel (08/09/2024 11:20 AM EDT) Sodium 139 136 - 146 meq/L 08/09/2024 12:46 PM EDT [facility] Potassium 3.9 3.5 - 5.1 meq/L 08/09/2024 12:46 PM EDT [facility] Chloride 100(L) 102 - 112 meq/L 08/09/2024 12:46 PM EDT [facility] CO2 33(H) 21 - 32 meq/L 08/09/2024 12:46 PM EDT [facility] Calcium 9.5 8.5 - 10.1 mg/dL 08/09/2024 12:46 PM EDT [facility] Glucose 137(H) 74 - 106 mg/dL 08/09/2024 12:46 PM EDT [facility] BUN 35(H) 7 - 22 mg/dL 08/09/2024 12:46 PM EDT [facility] Creatinine 1.52(H) 0.55 - 1.02 mg/dL 08/09/2024 12:46 PM EDT [facility] BUN/Creatinine 23(H) 8 - 20 08/09/2024 12:46 PM EDT [facility] Albumin 3.7 3.4 - 5.0 g/dL 08/09/2024 12:46 PM EDT [facility] Alkaline Phosphatase 82 27 - 136 U/L 08/09/2024 12:46 PM EDT [facility] ALT 20 12 - 78 U/L 08/09/2024 12:46 PM EDT [facility] AST 22 5 - 37 U/L 08/09/2024 12:46 PM EDT [facility] Total Bilirubin 0.6 0.2 - 1.3 mg/dL 08/09/2024 12:46 PM EDT [facility] Protein, Total 6.8 6.4 - 8.2 gm/dL 08/09/2024 12:46 PM EDT [facility] Anion Gap 10 9 - 20 08/09/2024 12:46 PM EDT [facility] A/G Ratio 1.2 1.1 - 2.5 08/09/2024 12:46 PM EDT [facility] Globulin 3.1 1.5 - 4.5 g/dL 08/09/2024 12:46 PM EDT [facility] Osmolality Calc 287.7 mOsm/kg 12:46 PM EDT [facility] eGFR (mL/min/1.73m2) 33(L) >=60 mL/min/1.7 3m2 08/09/2024 12:46 PM EDT [facility] Comment:ESTIMATED GFR IS NOT ACCURATE CREATININE CLEARANCE IN PREDICTING GLOMERULAR FILTRATION RATE. ESTIMATED GFR IS NOT APPLICABLE FOR DIALYSIS PATIENTS. Blood Venipuncture / Unknown 08/09/2024 11:20 AM EDT 08/09/2024 12:09 PM EDT us Kiran Olmos MD LAB BLOOD ORDERABLES Final Resul t [facility] [address] [facility] [place] [address], [facility] [phone] * ECG 12 lead (08/09/2024 10:54 AM EDT) VENTRICULAR RATE EKG/MIN 65 BPM GE MUSE ATRIAL RATE (MCT) 65 BPM GE MUSE PA Interval 160 ms GE MUSE QRS-INTERVAL (MSEC) 154 ms GE MUSE QT Interval 438 ms GE MUSE QTC Interval 455 ms GE MUSE R AXIS (MCT) -32 degrees GE MUSE T Wave [place] 121 degrees GE MUSE [place] Diagnosis Sinus rhythm with premature atrial complexes Left axis deviation Left bundle branch block Abnormal ECG Confirmed by John KABA SUZANNE ([id number]) on 08/09/2024 1:06:07 PM GE MUSE 08/09/2024 10:5 4 AM EDT 08/09/2024 1:06 PM EDT us Kiran Olmos MD ECG ORDERABLES Final Result GE MUSE * CT lower extremity without [...] by Yesenia Cano PA-C. Kiran Olmos MD [facility] CT ORDERABLES Final Result from Last 3 Months Insurance BLUE CROSS/BLUE SHIELD [facility] [facility] Advance Directives For more information, please contact: [phone] * Full Code (Latest Code Status on File) Date Activated Date Inactivated Comments 08/23/2024 11:33 AM 08/26/2024 1:06 PM * Full Code Date Activated Date Inactivated Comments 08/23/2024 6:38 AM 08/23/2024 11:33 AM Care Teams Chocolate Dipper Relationship Specialty Start Date End Date Norma Au, NURSE MONITORING [address] [place] [address] PCP - General Nurse Practitioner 08/23/24
--- NOTE | 2024-10-04 00:40 | PC.NURSE ---
pts fsbs 47. Pt given chicken salad sandwich, orange juice, chips.
[2024-10-04] MEDS: DEXTROSE 10 % AND 0.45 % NACL 1,000 ML 100 ML IV ×2 (00:42→02:40)
--- NOTE | 2024-10-04 00:43 | PC.NURSE ---
pt reports I feel like my blood sugar is dropping BG checked with a reading of 47. Sandwhich and chips given with orange juice and D10 in half NS started at this time.
[2024-10-04 00:48] LABS: Basophils % 0.3 % (0.1-2.0); Eosinophils # 0.2 Kmm3 (0.0-0.4); Hematocrit 42.8 % (37.0-47.0); Hemoglobin 13.8 g/dL (12.2-16.2); Immature Granulocytes # 0.03 10^3uL; Immature Granulocytes % 0.4 %; Lymphocytes # 1.7 K/mm3 (0.7-4.5); Lymphocytes % 22.2 % (10-50); Mean Corpuscular HGB Conc 32.2 g/dL (31.8-35.4); Mean Corpuscular Hemoglobin 29.6 pg (27.0-31.2); Mean Corpuscular Volume 91.8 fl (81-99); Mean Platelet Volume 9.2 fl (7.4-10.4); Monocytes # 0.8 K/mm3 (0.1-1.0); Monocytes % 10.1 % (1.7-9.3); Nucleated Red Blood Cells # 0 10^3/uL; Nucleated Red Blood Cells % 0 %; Platelet Count 242 K/mm3 (142-424); Red Blood Count 4.66 M/mm3 (4.20-5.40); Red Cell Distribution Width 13.2 % (11.5-17.5); Red Cell Distribution Width-SD 44.2 fL; White Blood Count 7.8 K/mm3 (4.8-10.8)
[2024-10-04 00:50] LABS: VBG HCO3 28.5 mmol/L (23-30); VBG Oxygen Saturation 97.1 % (50-70); VBG PCO2 45.1 mmol/L (35-51); VBG PH 7.42 mmol/L (7.31-7.41); VBG PO2 87.3 mmol/L (28-40); VBG Total CO2 29.9 mmol/L (23-27)
[2024-10-04 00:53] LABS: Lactate Venous 2.2 mmol/L (0.4-2.0)
[2024-10-04 01:00] LABS: Alanine Aminotransferase 18 U/L (12-78); Albumin Level 3.8 g/dl (3.5-5.0); Albumin/Globulin Ratio 1.4 (1.1-1.8); Alkaline Phosphatase 76 U/L (38-126); Anion Gap 4.1 mEq/L (5-15); Aspartate Amino Transferase 31 U/L (14-36); Bilirubin,Total 0.6 mg/dl (0.2-1.3); Blood Urea Nitrogen 30 mg/dl (7-17); Carbon Dioxide 33 mmol/L (22.0-30.0); Chloride 100 mmol/L (98-107); Creatinine Clearance Estimated 26 mL/min (50-200); Estimated Glomerular Filt Rate 39 ml/min (>60); GFR (African American) 47 ML/MIN (>60); Globulin 2.8 g/dL (1.3-3.2); Glucose 52 mg/dl (74-100); Potassium 4.1 mmoL/L (3.5-5.1); Sodium 133 mmol/L (136-145); Total Protein,Serum 6.6 g/dl (6.3-8.2)
[2024-10-04 01:12] LABS: NT Pro Brain Natriuretic Pep. 783 pg/mL (0-450); Troponin I 0.08 ng/ml (0.00-0.034)
--- NOTE | 2024-10-04 01:17 | PC.NURSE ---
BG of 102 at this time. Pt aox4, NAD noted, RR even and non labored, skin pwd.
--- NOTE | 2024-10-04 01:48 | PC.NURSE ---
attempt to call report, RN taking patient to call this RN back when available.
--- NOTE | 2024-10-04 01:54 | PC.NURSE ---
report given to Bobbi CALVIN
--- NOTE | 2024-10-04 01:59 | P.HP_ITS ---
<Statement entered by Kevin King MD - 10/04/24 16:25> Rounded on patient after nurse practitioner. Personally examined and interviewed patient. Agree with exam findings and care plan as documented. History of Present Illness *Admission Date: 10/04/24 *Reason for visit:: Fall *History of present illness: This is an 84-year-old female who has a past medical history significant for COPD, obstructive sleep apnea, diabetes, brain tumor, HFpEF, coronary artery disease, and hypertension who presents with a chief complaint of falls. Due to patient's symptoms, she presented to the emergency room for evaluation. While in the emergency room, patient's blood glucose was 47. Chest x-ray revealed no acute cardiopulmonary process. CT scan of the head was negative for any acute intracranial process. Cervical spine was negative for any acute findings. Due to the multiple falls and low blood glucose, patient is being admitted for further management. During my evaluation of the patient, patient states she is status post right knee replacement approximately 1 month ago. She voices she was recently discharged from the rehab per her wishes. Staff at the rehab facility was encouraging patient to stay however she wanted to come home. Post discharge, patient has had multiple falls. Patient states she has had falls where she stood up and got lightheaded and fell backwards. She did not pass out nor did she hit her head. She reports having any decreased p.o. intake to include decreased appetite. Despite her decreased appetite, patient is still following her diabetic regiment. She takes Lantus 40 units twice daily and NovoLog 15 units subcu 3 times daily. Patient normally assesses her blood glucose, but she could not remember what her blood glucose was this evening when she gave herself the injection while sending her reclining chair. Patient's safety is in jeopardy she keeps having multiple falls, and she continues to take her insulin despite her decreased p.o. intake. She is currently denying any syncope, diplopia, blurred vision, upper or lower extremity strength weakness, lightheadedness, dizziness, fever, chills, rigors, nausea, vomiting, chest pain, shortness of breath, dyspnea, PND, orthopnea, or diarrhea. Additional pertinent values obtained include pH of 7.42, PO2 of 87.3, pCO2 of 29.9, lactic acid of 2.2, bicarb of 28.5, sodium 133, carbon oxide of 33, BUN of 30, creatinine 1.30, GFR of 39, troponin 0.08, and BNP of 783. Per my independent review EKG reveals a sinus arrhythmia/sinus rhythm, QTc of 439, left axis, and left bundle branch block. [facility] Disclaimer: The information contained in this section may have been updated after the patient was seen, as this information can be updated by other users. Medical History (Updated 10/04/24 @ 02:08 by Andrzej Youssef APRN) History of smoking 25-50 pack years Stopped smoking with greater than 20 pack year history Asthma MARCELA (obstructive sleep apnea) Diabetes Brain tumor Diastolic dysfunction CAD (coronary artery disease) HTN (hypertension) COPD (chronic obstructive pulmonary disease) Surgical History H/O cardiac catheterization H/O: hysterectomy History of appendectomy Hx of tonsillectomy History of cholecystectomy H/O oophorectomy Family History Other Hypertension Stroke Social History Smoking Status: Never smoker second hand exposure: No alcohol intake: never substance use type: denies use current occupational status: retired Travel in the last 8 weeks?: None household members: none housing: house caffeine: No Other Medical History Have you received the Flu Vaccine for this season: No Have you received the Pneumonia Vaccine: No Review of Systems Review of Systems Review of systems:: pertinent systems reviewed and negative unless documented below Constitutional Constitutional: Reports frequent falls, Reports poor appetite and Reports lethargy Eyes Eyes: Reports system reviewed and no additional complaints, except as documented ENT Ears, Nose, Mouth, and Throat: Reports system reviewed and no additional complaints, except as documented *Cardiovascular Cardiovascular: Reports system reviewed and no additional complaints, except as documented *Respiratory Respiratory: Reports system reviewed and no additional complaints, except as documented *Gastrointestinal Gastrointestinal: Reports system reviewed and no additional complaints, except as documented *Genitourinary Genitourinary: Reports system reviewed and no additional complaints, except as documented *Musculoskeletal Musculoskeletal: Reports system reviewed and no additional complaints, except as documented Integumentary/Breasts Skin/Breast: Reports system reviewed and no additional complaints, except as documented *Neurologic Neurologic: Reports system reviewed and no additional complaints, except as documented and Reports frequent falls Psychiatric Psychiatric: Reports system reviewed and no additional complaints, except as documented Endocrine Endocrine: Reports system reviewed and no additional complaints, except as documented Hematologic/Lymphatic Hematologic/Lymphatic: Reports system reviewed and no additional complaints, except as documented Allergic/Immunologic Allergic/Immunologic: Reports system reviewed and no additional complaints, except as documented Meds Home Medications and Allergies Home Medications ?Medication ?Instructions ?Recorded ?Confirmed ?Type allopurinol 100 mg tablet 100 mg PO DAILY 05/15/20 History cholecalciferol (vitamin D3) 50 1 tab PO DAILY 1 06/11/24 History mcg (2,000 unit) chewable tablet albuterol sulfate 90 mcg/actuation 4 inh inhalation Q4 HP PRN 06/11/24 06/11/24 History aerosol inhaler shortness of breath or wheez ing fluticasone 500 mcg-salmeterol 50 1 inh inhalation BID RT 06/11/24 06/11/24 History mcg/dose blistr powdr for inhalation (Advair Diskus) insulin aspart U-100 100 unit/mL 15 unit SQ TID 06/11/24 History (3 mL) subcutaneous pen (Novolog FlexPen U-100 Insulin aspart) insulin glargine 100 unit/mL (3 40 unit SQ BID 5 06/11/24 History mL) subcutaneous pen (Lantus Solostar U-100 Insulin) ondansetron HCl 4 mg tablet 4 mg PO Q8HP PRN Nausea An d 06/11/24 06/11/24 History Vomiting spironolactone 25 mg tablet 25 mg PO DAILY 06/11/24 History tramadol 50 mg tablet 50 mg PO TIDP PRN Severe Chapis n 06/11/24 06/11/24 History (Scale Score 7-10) hydrocodone 5 mg-acetaminophen 325 1 tab PO Q4HP PRN M ild To Moderate 06/12/24 Rx mg tablet Pain (1-6) 3 days #11 tabs torsemide 100 mg tablet 100 mg PO DAILY 30 days #30 tabs 06/12/24 Rx New Prescriptions to Start Prescriptions: Allergies Allergy/AdvReac Type Severity Reaction Status Date / Time codeine (CODEINE) Allergy Mild Verified 02/29/24 11:55 iodine (IODINE) Allergy Mild Verified 02/29/24 11:55 latex (LATEX) Allergy Mild Verified 02/29/24 11:55 oxycodone (OXYCODONE) Allergy Mild Verified 02/29/24 11:55 Sulfa (Sulfonamide Allergy Mild Verified 02/29/24 11:55 Antibiotics) (SULFA (SULFONAMIDE ANTIBIOTICS)) Cephalosporins Allergy Verified 02/29/24 11:55 doxycycline Allergy Verified 02/29/24 11:55 exenatide (From Byetta) Allergy Verified 02/29/24 11:55 glyburide Allergy Verified 02/29/24 11:55 hyoscyamine (From Levbid) Allergy Verified 02/29/24 11:55 levofloxacin (From Levaquin) Allergy Verified 02/29/24 11:55 PCN Allergy Mild Uncoded 02/29/24 11:55 Exam Data for Last 24 hours Vital signs and Labs for Last 24 Hours: Temp Pulse Resp BP Pulse Ox O2 Del Method O2 Flow Rate 98.4 F 72 18 150/69 H 99 Nasal Cannula 2 10/04/24 01:54 10/04/24 01:54 10/04/24 01:54 10/04/24 01:54 10/04/24 01:30 10/04/24 01:54 10/04/24 01:54 Laboratory Results - last 24 hr 10/03/24 23:38: VBG pH Cancelled, VBG pCO2 Cancelled, VBG pO2 Cancelled, VBG HCO3 Cancelled, VBG Total CO2 Cancelled, VBG O2 Saturation Cancelled, VBG Base Excess Cancelled, VBG Lactic Acid Cancelled 10/04/24 00:33: WBC 7.8, RBC 4.66, Hgb 13.8, Hct 42.8, MCV 91.8, MCH 29.6, MCHC 32.2, RDW 13.2, Plt Count 242, MPV 9.2, Neut % (Auto) 64.0, Lymph % (Auto) 22.2, Garza % (Auto) 10.1 H, Eos % (Auto) 3.0, Baso % (Auto) 0.3, Neut # (Auto) 5.0, Lymph # (Auto) 1.7, Garza # (Auto) 0.8, Eos # (Auto) 0.2, Baso # (Auto) 0.0, Sodium 133 L, Potassium 4.1, Chloride 100, Carbon Dioxide 33 H, Anion Gap 4.1 L, BUN 30 H, Creatinine 1.30 H, Estimated Creat Clear 26, Estimated GFR 39 L, Est GFR ( Amer) 47 L, Glucose 52 L, Calcium 10.0, Total Bilirubin 0.6, AST 31, ALT 18, Alkaline Phosphatase 76, Troponin I 0.08 H, NT-Pro-B Natriuret Pep 783 H, Total Protein 6.6, Albumin 3.8, Globulin 2.8, Albumin/Globulin Ratio 1.4 10/04/24 00:44: VBG pH 7.42 H, VBG pCO2 45.1, VBG pO2 87.3 H, VBG HCO3 28.5, VBG Total CO2 29.9 H, VBG O2 Saturation 97.1 H, VBG Base Excess 4.0 H, VBG Lactic Acid 2.2 H I & O for Last 24 hours: Intake & Output 10/01/24 10/02/24 10/03/24 10/04/24 23:59 23:59 23:59 23:59 Weight 112.037 kg Constitutional Constitutional: no acute distress and morbidly obese *Routine HEENT Exam Head: Present normocephalic and atraumatic Eye: Present EOMI and PERRL ENT: Present mucous membranes moist *Routine Neck Exam Neck: Present supple, full ROM and trachea midline *Routine Respiratory Exam Respiratory: Present CTA bilaterally, normal respiratory effort, able to speak in complete sentences and symmetric chest movement *Routine Cardiovascular Exam Cardiovascular: Present RRR, Normal S1 and Normal S2 *Routine Abdominal Exam Abdominal: Present soft and obese *Routine Rectal Exam Rectal:: deferred *Routine Genitalia Exam Genitalia:: deferred *Routine Extremities Exam Extremities: Present full ROM, pulses intact and normal capillary refill Routine Back/Spine/Pelvis Exam Back/Spine: Present full ROM *Routine Skin Exam Skin: Present intact, dry and warm Comments: Right knee incision is well-approximated with a small amount of erythema without any edema or drainage *Routine Neurological Exam Neurological: Present alert, oriented X3, CN II-XII intact, moving all extremities and normal speech Routine Psychiatric Exam Psychiatric: Present normal affect, normal thought process, cooperative, good insight and good judgment H&P: Result Impressions 84-year-old female who is status post right knee replacement 1 month ago and recently was discharged from rehab per her wishes approximately 3 days ago has been having multiple falls. Coupled with her decreased p.o. intake and administration of insulin patient is having episodes of low blood glucose. Suspect patient's lightheadedness and weakness is in the setting of hypoglycemia Assessment and Plan *Assessment and plan (1) Hypoglycemia: Status: Acute Category: Medical Code(s): E16.2 - Hypoglycemia, unspecified (2) Syncope, near: Status: Acute Category: Medical Code(s): R55 - Syncope and collapse (3) CKD (chronic kidney disease): Status: Acute Qualifiers: Chronic kidney disease stage: unspecified stage Qualified Code(s): N18.9 - Chronic kidney disease, unspecified Category: Medical Code(s): N18.9 - Chronic kidney disease, unspecified (4) Elevated brain natriuretic peptide (BNP) level: Status: Acute Category: Medical Code(s): R79.89 - Other specified abnormal findings of blood chemistry (5) Elevated troponin: Status: Acute Category: Medical Code(s): R79.89 - Other specified abnormal findings of blood chemistry (6) Falls: Status: Acute Category: Medical Code(s): R29.6 - Repeated falls Plan Assessment: Hypoglycemia - Monitor patient's blood glucose every 4 hours and if blood close is stable (greater than 100 mg/dL) will change frequency to every 6 hours - Will hold Lantus and fast acting insulin - Will encourage patient to eat Near syncope -Most likely in the setting of hypoglycemia -If lightheadedness persists will obtain 2D echo - Will obtain D-dimer. If elevated will obtain VQ scan Chronic kidney disease: - Patient is close to baseline creatinine Elevated troponin -Most likely in the setting of poor renal clearance - EKG is without any STEMI activity - Less likely acute coronary syndrome Elevated BNP - Patient does not appear to be hypervolemic - She may be slightly hypovolemic Falls -Patient lives alone and I am concerned for her safety -With the multiple falls and not eating coupled with self administration of insulin, patient is at high risk for severe hypoglycemia syncopize incident that may lead to trauma -We will have physical therapy and occupational therapy assess patient's function - Will consult case management in the event patient needs inpatient rehab criteria -If not, we will try to establish home health at a minimum Plan: Admit patient to the MedSur unit on telemetry Ambulate with assistance Will obtain orthostatic blood pressures Saline lock Vital signs every 4 hours 1800 ADA/cardiac diet CBC/BMP daily Will trend patient's troponin 5000 use of heparin SQ twice daily 4 mg Zofran IV push. Hours pain nausea vomit Full code I will discussed this case with attending physician Dr. King and I look forward to more input
--- NOTE | 2024-10-04 02:13 | PC.NURSE ---
Patient arrived to floor via stretcher from ED at 02:11.
--- NOTE | 2024-10-04 02:37 | PC.WOUNDNOTE ---
excoriation under breasts and abdominal folds
[2024-10-04] MEDS: NYSTATIN TOPICAL POWDER 30GM TP ×3 (03:29→16:02)
[2024-10-04 04:45] LABS: Reflex Lactic Add Lactic Reflex
--- NOTE | 2024-10-04 05:25 | PC.NURSE ---
Pt. was admitted overnight from the ED. Pt. presented to the ED with EMS. Pt. had a right knee replacement one month ago and was in rehab. she signed out of rehab a couple of days ago. Pt. lives by herself. Pt. has had several falls since being home from rehab. Pt. is a diabetic, has had decreased PO intake and taking her Insulin. Pt. getting lightheaded sometimes. in the ED pt. had a glucose of 47. Pt. admitted for falls and hypoglycemia. Pt. is alert and orientated x 4. Pt. on 2 liters of oxygen per N/C. Pt. has no c/o pain. IV fluids infusing. Personal items and call nguyen in reach, Safety measures in place.
[2024-10-04 05:37] LABS: Anion Gap 3.4 mEq/L (5-15); Blood Urea Nitrogen 27 mg/dl (7-17); Calcium 9.5 mg/dl (8.4-10.2); Carbon Dioxide 34 mmol/L (22.0-30.0); Chloride 99 mmol/L (98-107); Creatinine Clearance Estimated 25 mL/min (50-200); Estimated Glomerular Filt Rate 39 ml/min (>60); GFR (African American) 47 ML/MIN (>60); Glucose 245 mg/dl (74-100); Lactic Acid Follow Up (RFLX 1) 1.3 mmol/L (0.7-2.1); Potassium 4.4 mmoL/L (3.5-5.1); Sodium 132 mmol/L (136-145)
[2024-10-04 05:42] LABS: D-Dimer 1.59 ug/mL (0.0-0.5)
[2024-10-04 05:49] LABS: Basophils % 0.3 % (0.1-2.0); Eosinophils # 0.2 Kmm3 (0.0-0.4); Eosinophils % 2.5 % (0.1-12.0); Hematocrit 39.9 % (37.0-47.0); Hemoglobin 12.7 g/dL (12.2-16.2); Immature Granulocytes # 0.02 10^3uL; Immature Granulocytes % 0.3 %; Lymphocytes # 1.3 K/mm3 (0.7-4.5); Lymphocytes % 18.6 % (10-50); Mean Corpuscular HGB Conc 31.8 g/dL (31.8-35.4); Mean Corpuscular Hemoglobin 29.3 pg (27.0-31.2); Mean Corpuscular Volume 92.1 fl (81-99); Mean Platelet Volume 9.6 fl (7.4-10.4); Monocytes # 0.7 K/mm3 (0.1-1.0); Monocytes % 9.4 % (1.7-9.3); Neutrophils # 4.9 K/mm3 (1.8-7.8); Neutrophils % 68.9 % (37.0-80.0); Nucleated Red Blood Cells # 0 10^3/uL; Nucleated Red Blood Cells % 0 %; Platelet Count 205 K/mm3 (142-424); Red Blood Count 4.33 M/mm3 (4.20-5.40); Red Cell Distribution Width 13.2 % (11.5-17.5); Troponin I 0.07 ng/ml (0.00-0.034); White Blood Count 7.1 K/mm3 (4.8-10.8)
[2024-10-04 06:18] LABS: POC Glucose,Bedside 244 (70-110)
[2024-10-04 06:18] LABS: POC Glucose,Bedside 123 (70-110)
[2024-10-04] MEDS: ACETAMINOPHEN 325MG TAB 650 MG PO (06:49)
[2024-10-04] MEDS: HEPARIN SODIUM 5,000 UNIT/ML VIAL 5000 UNIT SUBCUT (08:33)
[2024-10-04 08:40] LABS: Hemoglobin A1C 6.8 % (4.0-6.0)
--- NOTE | 2024-10-04 08:58 | SW/DCPLANNER ---
Addendum entered by [facility] 10/05/24 07:21: Patient approved SNF level of care and discharged to [facility] on 10/04/24. Addendum entered by [facility] 10/04/24 14:04: Patient is agreeable to [facility] or [facility]. Marcie w/ [facility] is able to accept patient and start a precert today. I have updated patient. Addendum entered by [facility] 10/04/24 13:07: [facility] is unable to accept due to insurance. I will follow up w/ [facility]. Addendum entered by [facility] 10/04/24 12:07: Per Efrain w/ [facility] no beds available at this time. Patient is agreeable for information to be faxed to [facility] and [facility].I will fax information and continue to follow up w/ facilities. Per MD patient is medically stable for discharge today. Original Note: I spoke w/ patient regarding plans once medically stable for discharge. PT/OT evaluated patient and recommended SNF level of care. Patient stated that she was recently discharged from [facility]. Patient expressed that she would like to return to [facility] once medically stable for discharge from [facility]. I will fax patient information this AM. I will continue to follow up.
--- NOTE | 2024-10-04 09:13 | HMH.PTEV ---
Physical Therapy Evaluation Rehab PT IP Evaluation Start: 10/04/24 02:58 Freq: ONCE Status: Active Protocol: Document 10/04/24 09:06 RAOUL (Rec: 10/04/24 09:13 RAOUL [id number]) Subjective/History History History Per H&P: 84-year-old female 1 month status post right knee replacement who lives independently at home and has been home for the last 3 days presents to the ER after fall. Patient fell once this morning stating she stood up, felt lightheaded, and fell to the floor but did not lose consciousness, did not strike her head, does not take any blood thinners. She was not evaluated after that fall but this evening she had a mechanical fall, unclear how but her right knee felt weaker while walking and caused her to fall. She did not strike her head or lose consciousness. No neck pain or back pain, no numbness, tingling, or weakness. She denies any room spinning dizziness and states she is not lightheaded at this time. She does report taking diuretics but has not missed any doses. She states she has COPD and asthma and typically wears 2 L nasal cannula at home. She is not short of breath. No recent fevers or chills, no headache, no chest pain or difficulty breathing, no abdominal pain, nausea, vomiting, or diarrhea. Patient has an old scab on the right knee which she states has been slow healing since surgery. No new pain, redness, or warmth in the knee. She states her knee feels the same as it has since surgery. Subjective Subjective Pt reports she went to rehab and was improving with her mobility. Pt felt confident upon rehab d/c that she could care for herself and get around her home IND. Pt came home and had difficulty with mobility with 2 falls. Pt lives alone in a single-story home. Pt is interested in additional rehab services. New diagnosis of No cancer in past 12 months? [facility] How much help from another person do you currently need... Turning from your A little back to your side while in a flat bed without using bedrails? Moving from lying on A little back to sitting on the side of a flat bed without using bedrails? Moving to and from a A little bed to a chair ( including a wheelchair)? Standing up from a A little chair using your arms? (e.g., wheelchair, bedside chair) Walking in hospital A lot room? Climbing 3-5 steps A lot with a railing? Mobility Score 16 Mobility Level [facility] Mobility 5 Stand (1 or more minutes) Mobility Calculator Rehab PT IP Eval Objective Appearance Patient Behavior Appropriate,Cooperative Patient Orientation Person,Place,Situation Difficulty following none instructions Speech Pattern Clear Ambulation Patient Able to No Ambulate Balance Ability to Arise Able, uses arms to help Sitting Balance Steady, safe Standing Balance Unsteady Transfers Bed Transfer Ability Minimal x 1 (25% assist) Chair Transfer Minimal x 1 (25% assist) Ability Sit to Stand Bed Minimal x 1 (25% assist) Transfer Ability Sit to Stand Chair Minimal x 1 (25% assist) Transfer Ability Rehab PT IP prob,goals,plan Problems Date of Evaluation: 10/04/24 PT IP Problems Bed Mobility,Transfers,Gait,Balance,Self care,Safety Rehab Potential Rehab Potential Good Plan PT Intervention Plan Bed Mobility,Transfers,Gait,Balance,Self care,Safety, Therapeutic Exercise Other Intervention 1-2 times Plan PT Plan Frequency Daily Duration LOS Discharge Goals Bed Transfer Ability Supervision/Stand by Sit to Stand Chair Contact Guard/Hand Hold Transfer Ability Ambulation Assistive Rolling Walker Device Ambulation Distance 5 (feet) Discharge Plan PT Discharge Plan Pt presents below baseline in functional mobility and gait. Pt not safe to return home at this time d/t level of mobility and safety. Pt would benefit from skilled inpatient rehabilitation to maximize safety upon d/c from [facility]. PT will continue seeing pt while at [facility] to address deficits and prevent further functional decline. Eval Complexity Eval Charge Codes 94841 - Moderate Complexity PHYSICIAN CERTIFICATION: I certify the specified therapy services for Denisa Sanon are required, authorized, and reviewed every 30 days.
--- NOTE | 2024-10-04 09:57 | HMH.OTEV ---
OT Inpatient Evaluation Rehab OT IP Evaluation Start: 10/04/24 01:53 Freq: ONCE Status: Active Protocol: Document 10/04/24 09:52 RONI (Rec: 10/04/24 09:57 RONI [id number]) Rehab OT IP Assessment Subjective History Per H&P: 84-year-old female 1 month status post right knee replacement who lives independently at home and has been home for the last 3 days presents to the ER after fall. Patient fell once this morning stating she stood up, felt lightheaded, and fell to the floor but did not lose consciousness, did not strike her head, does not take any blood thinners. She was not evaluated after that fall but this evening she had a mechanical fall, unclear how but her right knee felt weaker while walking and caused her to fall. She did not strike her head or lose consciousness. No neck pain or back pain, no numbness, tingling, or weakness. She denies any room spinning dizziness and states she is not lightheaded at this time. She does report taking diuretics but has not missed any doses. She states she has COPD and asthma and typically wears 2 L nasal cannula at home. She is not short of breath. No recent fevers or chills, no headache, no chest pain or difficulty breathing, no abdominal pain, nausea, vomiting, or diarrhea. Patient has an old scab on the right knee which she states has been slow healing since surgery. No new pain, redness, or warmth in the knee. She states her knee feels the same as it has since surgery. Subjective I am good. Pt was sitting in chair when therapy entered. pt agreed to initial OT eval this morning. Pt orient x3. Pt reported they live alone in a mobile home with ramp. pt reported they have shower chair and grab bars. pt reported they still drive. pt reported they are ind in ADLs and have assistance for IADLs. pt reported they use walker for functional mobility. pt reported norm on 2L O2, currently on 2L O2 at [facility]. pt reported they fell 2x yesterday. Pt agreed to complete a sit to stand transfer from chair. Pt was Mod A to complete sit to stand transfer with walker. Pt able to hold static standing balance with Min A for 30 secs before sitting back down. Pt's LB demo weakness. Pt left in chair with call light and all other needs within reach. Objective Patient Orientation Person,Place,Birthday Right Upper WFL Extremity Gross ROM Left Upper Extremity WFL Gross ROM Shoulder ROM Muscle Weakness Limitations Elbow ROM Muscle Weakness Limitations Transfer Training Sit/Stand Transfer Assist Level Moderate x 1 (50% assist) Chair Transfer Moderate x 1 (50% assist) Ability Chair Transfer Sit to/from Ambulatory Technique Chair Transfer Standard Walker Assistive Devices Decrease in Yes Endurance Rehab OT IP prob,goals,plan Problems Date of Evaluation: 10/04/24 OT IP Problems Bed Mobility,Transfers,Balance,Self care,Safety Rehab Potential Rehab Potential Good Equipment Needs Assistive Devices Standard Walker,Rolling / Wheeled Walker Plan OT intervention Plan Bed Mobility,Transfers,Balance,Self care,Safety, Therapeutic Exercise OT Plan Frequency Daily Duration LOS Discharge Goals Bed Mobility Ability Assistance x1 Sit to Stand Chair Minimal x 1 (25% assist) Transfer Ability Chair Transfer Minimal x 1 (25% assist) Ability Chair Transfer Sit to/from Ambulatory Technique Chair Transfer Standard Walker,Rolling Walker Assistive Devices Feeding Ability Assist with Tray Set Up Commode/Toilet Raised Toilet Seat,Grab Bars Transfer Assistive Devices Decrease in No Endurance Discharge Plan OT Discharge Plan At this time, pt would benefit from skilled acute OT services and interventions to address functional limitations in occupational performance. Pt would also benefit from skilled OT rehab placement once DC from [facility] to further address functional limitations in occupational performance. Eval Complexity Eval Charge Codes 11094 - Moderate Complexity PHYSICIAN CERTIFICATION: I certify the specified therapy services for Denisa Sanon are required, authorized, and reviewed every 30 days.
[2024-10-04 10:13] LABS: POC Glucose,Bedside 214 (70-110)
[2024-10-04] MEDS: humaLOG 100 UNITS/ML 10ML VIAL (SSI) SUBCUT (11:23)
[2024-10-04 11:32] LABS: POC Glucose,Bedside 178 (70-110)
[2024-10-04 11:33] LABS: Troponin I 0.06 ng/ml (0.00-0.034)
--- NOTE | 2024-10-04 12:19 | PC.NURSE ---
tried to get orthostatics on pt, pt was not able to stand for a period of time, standing orthostatic blood pressure was unsuccessful.
--- NOTE | 2024-10-04 14:19 | PC.WOUNDNOTE ---
small open ulcers to right buttocks area small ulcer right buttocks
--- NOTE | 2024-10-04 16:11 | EXP.DC.SUM ---
General Admission date:: 10/04/24 Discharge date: 10/04/24 HPI HPI HPI: This is an 84-year-old female who has a past medical history significant for COPD, obstructive sleep apnea, diabetes, brain tumor, HFpEF, coronary artery disease, and hypertension who presents with a chief complaint of falls. Due to patient's symptoms, she presented to the emergency room for evaluation. While in the emergency room, patient's blood glucose was 47. Chest x-ray revealed no acute cardiopulmonary process. CT scan of the head was negative for any acute intracranial process. Cervical spine was negative for any acute findings. Due to the multiple falls and low blood glucose, patient is being admitted for further management. During my evaluation of the patient, patient states she is status post right knee replacement approximately 1 month ago. She voices she was recently discharged from the rehab per her wishes. Staff at the rehab facility was encouraging patient to stay however she wanted to come home. Post discharge, patient has had multiple falls. Patient states she has had falls where she stood up and got lightheaded and fell backwards. She did not pass out nor did she hit her head. She reports having any decreased p.o. intake to include decreased appetite. Despite her decreased appetite, patient is still following her diabetic regiment. She takes Lantus 40 units twice daily and NovoLog 15 units subcu 3 times daily. Patient normally assesses her blood glucose, but she could not remember what her blood glucose was this evening when she gave herself the injection while sending her reclining chair. Patient's safety is in jeopardy she keeps having multiple falls, and she continues to take her insulin despite her decreased p.o. intake. She is currently denying any syncope, diplopia, blurred vision, upper or lower extremity strength weakness, lightheadedness, dizziness, fever, chills, rigors, nausea, vomiting, chest pain, shortness of breath, dyspnea, PND, orthopnea, or diarrhea. Additional pertinent values obtained include pH of 7.42, PO2 of 87.3, pCO2 of 29.9, lactic acid of 2.2, bicarb of 28.5, sodium 133, carbon oxide of 33, BUN of 30, creatinine 1.30, GFR of 39, troponin 0.08, and BNP of 783. Per my independent review EKG reveals a sinus arrhythmia/sinus rhythm, QTc of 439, left axis, and left bundle branch block. Hospital Course Hospital Course Hospital Course: 84-year-old female recently discharged from skilled care facility. Has been having difficulty at home with falls. Presented with weakness. Found to have hypoglycemia. Suspect secondary to too much insulin administration. Admitted. Evaluated by therapy, recommended placement for skilled care due to persistent weakness. [facility] for further management. Blood sugars doing better at this time on adjusted insulin regimen. Stable to discharge with further management as an outpatient. Problems addressed as follows: Insulin-dependent diabetes Hypoglycemia -Patient presented with glucose in the 40s. Was taking 40 units long-acting at home +15 with meals. Glucoses running low and having falls at home. Adjusted regimen to 25 units long-acting with 10 units with meals. A1c obtained at 6.8. Well-controlled. Recommend further adjustment in the skilled nursing setting. - No further episodes of hypoglycemia during admission Near syncope -Most likely in the setting of hypoglycemia. No further lightheadedness. Blood pressure stable. Chronic kidney disease: -Patient at baseline kidney function, making adequate urine patient is close to baseline creatinine. Creatinine 1.3, BUN 27. Bicarb 34, potassium 4.4 and sodium 132. All within patient's normal range per chart review. Needs labs in 1 week with CBC, CMP, magnesium Elevated troponin -Most likely in the setting of poor renal clearance and stress from hypoglycemia with syncope. No ST elevation or ischemic changes on EKG per my review. Patient denying any chest pain. Continue home regimen with including torsemide 50 mg daily, spironolactone 25 mg daily. Falls -Patient lives alone and we are concerned for safety with falls. Likely because of syncope. PT evaluated, recommend placement for skilled rehab. Excepted by [facility]. Continue allopurinol 100 mg daily for gout Continue albuterol as needed every 4-6 hours, and Advair discus 1 inhalation twice daily Exam Data for Last 24 hours Vital signs and Labs for Last 24 Hours: Temp Pulse Resp BP Pulse Ox O2 Del Method O2 Flow Rate 97.9 F 70 18 108/77 L 96 Nasal Cannula 2 10/04/24 12:00 10/04/24 12:00 10/04/24 12:10/04/24 12:00 10/04/24 12:00 10/04/24 15:00 10/04/24 15:00 FiO2 28 10/04/24 02:17 Laboratory Results - last 24 hr 10/03/24 23:38: VBG pH Cancelled, VBG pCO2 Cancelled, VBG pO2 Cancelled, VBG HCO3 Cancelled, VBG Total CO2 Cancelled, VBG O2 Saturation Cancelled, VBG Base Excess Cancelled, VBG Lactic Acid Cancelled 10/04/24 00:33: WBC 7.8, RBC 4.66, Hgb 13.8, Hct 42.8, MCV 91.8, MCH 29.6, MCHC 32.2, RDW 13.2, Plt Count 242, MPV 9.2, Neut % (Auto) 64.0, Lymph % (Auto) 22.2, [place] % (Auto) 10.1 H, Eos % (Auto) 3.0, Baso % (Auto) 0.3, Neut # (Auto) 5.0, Lymph # (Auto) 1.7, [place] # (Auto) 0.8, Eos # (Auto) 0.2, Baso # (Auto) 0.0, Sodium 133 L, Potassium 4.1, Chloride 100, Carbon Dioxide 33 H, Anion Gap 4.1 L, BUN 30 H, Creatinine 1.30 H, Estimated Creat Clear 26, Estimated GFR 39 L, Est GFR ( Amer) 47 L, Glucose 52 L, Calcium 10.0, Total Bilirubin 0.6, AST 31, ALT 18, Alkaline Phosphatase 76, Troponin I 0.08 H, NT-Pro-B Natriuret Pep 783 H, Total Protein 6.6, Albumin 3.8, Globulin 2.8, Albumin/Globulin Ratio 1.4 10/04/24 00:44: VBG pH 7.42 H, VBG pCO2 45.1, VBG pO2 87.3 H, VBG HCO3 28.5, VBG Total CO2 29.9 H, VBG O2 Saturation 97.1 H, VBG Base Excess 4.0 H, VBG Lactic Acid 2.2 H 10/04/24 02:37: POC Glucose 123 H 10/04/24 05:14: Hemoglobin A1c 6.8 H 10/04/24 05:18: POC Glucose 244 H 10/04/24 05:19: WBC 7.1, RBC 4.33, Hgb 12.7, Hct 39.9, MCV 92.1, MCH 29.3, MCHC 31.8, RDW 13.2, Plt Count 205, MPV 9.6, Neut % (Auto) 68.9, Lymph % (Auto) 18.6, [place] % (Auto) 9.4 H, Eos % (Auto) 2.5, Baso % (Auto) 0.3, Neut # (Auto) 4.9, Lymph # (Auto) 1.3, [place] # (Auto) 0.7, Eos # (Auto) 0.2, Baso # (Auto) 0.0, D-Dimer 1.59 H, Sodium 132 L, Potassium 4.4, Chloride 99, Carbon Dioxide 34 H, Anion Gap 3.4 L, BUN 27 H, Creatinine 1.30 H, Estimated Creat Clear 25, Estimated GFR 39 L, Est GFR ( Amer) 47 L, Glucose 245 H D, Lactate 1.3, Calcium 9.5, Troponin I 0.07 H 10/04/24 09:28: POC Glucose 214 H 10/04/24 10:50: Troponin I 0.06 H 10/04/24 11:19: POC Glucose 178 H I & O for Last 24 hours: Intake & Output 10/01/24 10/02/24 10/03/24 10/04/24 23:59 23:59 23:59 23:59 Intake Total 1020 / 1020 Output Total 0 / 0 Balance 1020 / 1020 Weight 112.037 kg 120.429 kg Constitutional Constitutional: no acute distress, morbidly obese, chronically ill appearing and cooperative *Routine HEENT Exam Head: Present normocephalic Eye: Present EOMI and PERRL ENT: Present mucous membranes moist *Routine Neck Exam Neck: Present supple; Absent lymphadenopathy *Routine Respiratory Exam Respiratory: Present CTA bilaterally and normal respiratory effort; Absent accessory muscle use, rhonchi, wheezes or crackles *Routine Cardiovascular Exam Cardiovascular: Present RRR *Routine Abdominal Exam Abdominal: Present soft and normoactive bowel sounds; Absent tenderness *Routine Rectal Exam Patient deferred: visual exam *Routine Exam Patient deferred: external exam *Routine Extremities Exam Extremities: Present edema (1+ to Bilateral knees); Absent cyanosis or clubbing *Routine Skin Exam Skin: Present intact and warm; Absent rash *Routine Neurological Exam Neurological: Present alert, oriented X3 and moving all extremities; Absent altered mental status Results Data Completed and Pending Labs on day of discharge: Labs from last 24 hours 10/04/24 10/04/24 10/04/24 11:19 10:50 09:28 WBC RBC Hgb Hct MCV MCH MCHC RDW Plt Count MPV Neut % (Auto) Lymph % (Auto) [place] % (Auto) Eos % (Auto) Baso % (Auto) Neut # (Auto) Lymph # (Auto) [place] # (Auto) Eos # (Auto) Baso # (Auto) D-Dimer VBG pH VBG pCO2 VBG pO2 VBG HCO3 VBG Total CO2 VBG O2 Saturation VBG Base Excess VBG Lactic Acid Sodium Potassium Chloride Carbon Dioxide Anion Gap BUN Creatinine Estimated Creat Clear Estimated GFR Est GFR ( Amer) Glucose POC Glucose 178 H 214 H Hemoglobin A1c Lactate Calcium Total Bilirubin AST ALT Alkaline Phosphatase Troponin I 0.06 H NT-Pro-B Natriuret Pep Total Protein Albumin Globulin Albumin/Globulin Ratio 10/04/24 10/04/24 10/04/24 05:19 05:18 05:14 WBC 7.1 RBC 4.33 Hgb 12.7 Hct 39.9 MCV 92.1 MCH 29.3 MCHC 31.8 RDW 13.2 Plt Count 205 MPV 9.6 Neut % (Auto) 68.9 Lymph % (Auto) 18.6 [place] % (Auto) 9.4 H Eos % (Auto) 2.5 Baso % (Auto) 0.3 Neut # (Auto) 4.9 Lymph # (Auto) 1.3 [place] # (Auto) 0.7 Eos # (Auto) 0.2 Baso # (Auto) 0.0 D-Dimer 1.59 H VBG pH VBG pCO2 VBG pO2 VBG HCO3 VBG Total CO2 VBG O2 Saturation VBG Base Excess VBG Lactic Acid Sodium 132 L Potassium 4.4 Chloride 99 Carbon Dioxide 34 H Anion Gap 3.4 L BUN 27 H Creatinine 1.30 H Estimated Creat Clear 25 Estimated GFR 39 L Est GFR ( Amer) 47 L Glucose 245 H D POC Glucose 244 H Hemoglobin A1c 6.8 H Lactate 1.3 Calcium 9.5 Total Bilirubin AST ALT Alkaline Phosphatase Troponin I 0.07 H NT-Pro-B Natriuret Pep Total Protein Albumin Globulin Albumin/Globulin Ratio 10/04/24 10/04/2410/04/25 02:37 00:44 00:33 WBC 7.8 RBC 4.66 Hgb 13.8 Hct 42.8 MCV 91.8 MCH 29.6 MCHC 32.2 RDW 13.2 Plt Count 242 MPV 9.2 Neut % (Auto) 64.0 Lymph % (Auto) 22.2 [place] % (Auto) 10.1 H Eos % (Auto) 3.0 Baso % (Auto) 0.3 Neut # (Auto) 5.0 Lymph # (Auto) 1.7 [place] # (Auto) 0.8 Eos # (Auto) 0.2 Baso # (Auto) 0.0 D-Dimer VBG pH 7.42 H VBG pCO2 45.1 VBG pO2 87.3 H VBG HCO3 28.5 VBG Total CO2 29.9 H VBG O2 Saturation 97.1 H VBG Base Excess 4.0 H VBG Lactic Acid 2.2 H Sodium 133 L Potassium 4.1 Chloride 100 Carbon Dioxide 33 H Anion Gap 4.1 L BUN 30 H Creatinine 1.30 H Estimated Creat Clear 26 Estimated GFR 39 L Est GFR ( Amer) 47 L Glucose 52 L POC Glucose 123 H Hemoglobin A1c Lactate Calcium 10.0 Total Bilirubin 0.6 AST 31 ALT 18 Alkaline Phosphatase 76 Troponin I 0.08 H NT-Pro-B Natriuret Pep 783 H Total Protein 6.6 Albumin 3.8 Globulin 2.8 Albumin/Globulin Ratio 1.4 10/03/24 23:38 WBC RBC Hgb Hct MCV MCH MCHC RDW Plt Count MPV Neut % (Auto) Lymph % (Auto) [place] % (Auto) Eos % (Auto) Baso % (Auto) Neut # (Auto) Lymph # (Auto) [place] # (Auto) Eos # (Auto) Baso # (Auto) D-Dimer VBG pH Cancelled VBG pCO2 Cancelled VBG pO2 Cancelled VBG HCO3 Cancelled VBG Total CO2 Cancelled VBG O2 Saturation Cancelled VBG Base Excess Cancelled VBG Lactic Acid Cancelled Sodium Potassium Chloride Carbon Dioxide Anion Gap BUN Creatinine Estimated Creat Clear Estimated GFR Est GFR ( Amer) Glucose POC Glucose Hemoglobin A1c Lactate Calcium Total Bilirubin AST ALT Alkaline Phosphatase Troponin I NT-Pro-B Natriuret Pep Total Protein Albumin Globulin Albumin/Globulin Ratio DS: Diagnosis Discharge Diagnosis (1) Hypoglycemia: Status: Acute Code(s): E16.2 - Hypoglycemia, unspecified (2) Syncope, near: Status: Acute Code(s): R55 - Syncope and collapse (3) CKD (chronic kidney disease): Status: Acute Code(s): N18.9 - Chronic kidney disease, unspecified Qualifiers: Chronic kidney disease stage: unspecified stage Qualified Code(s): N18.9 - Chronic kidney disease, unspecified (4) Elevated brain natriuretic peptide (BNP) level: Status: Acute Code(s): R79.89 - Other specified abnormal findings of blood chemistry (5) Elevated troponin: Status: Acute Code(s): R79.89 - Other specified abnormal findings of blood chemistry (6) Falls: Status: Acute Code(s): R29.6 - Repeated falls (7) Morbid obesity with BMI of 40.0-44.9, adult: Status: Acute Code(s): E66.01 - Morbid (severe) obesity due to excess calories; Z68.41 - Body mass index [BMI] 40.0-44.9, adult (8) Type 2 diabetes mellitus: Status: Chronic Code(s): E11.9 - Type 2 diabetes mellitus without complications Qualifiers: Diabetes mellitus 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 Diabetes mellitus complication status: with other specified complication Qualified Code(s): E11.69 - Type 2 diabetes mellitus with other specified complication (9) Hypertension: Status: Acute Code(s): I10 - Essential (primary) hypertension (10) Generalized weakness: Status: Acute Code(s): R53.1 - Weakness (11) MARCELA (obstructive sleep apnea): Status: Acute Code(s): G47.33 - Obstructive sleep apnea (adult) (pediatric) Meds Home Medications and Allergies Home Medications ?Medication ?Instructions ?Recorded ?Confirmed ?Type albuterol sulfate 90 mcg/actuation 4 inh inhalation Q4HP PRN 10/04/24 Rx aerosol inhaler shortness of breath or wheezing 30 days #8.5 grams allopurinol 100 mg tablet 100 mg PO DAILY 30 days #30 tabs 10/04/24 Rx cholecalciferol (vitamin D3) 50 50 mcg PO DAILY 30 days #30 tabs 10/04/24 Rx mcg (2,000 unit) chewable tablet fluticasone 500 mcg-salmeterol 50 1 inh inhalation BIDRT #60 ea 10/04/24 Rx mcg/dose blistr powdr for inhalation (Advair Diskus) insulin aspart U-100 100 unit/mL 10 unit (0.1 mL) SQ TID 30 days #9 10/04/24 Rx (3 mL) subcutaneous pen (Novolog mL FlexPen U-100 Insulin aspart) insulin glargine 100 unit/mL (3 25 unit (0.25 mL) SQ BID 30 days 10/04/24 Rx mL) subcutaneous pen (Lantus #15 mL Solostar U-100 Insulin) spironolactone 25 mg tablet 25 mg PO DAILY 30 days #30 tabs 10/04/24 Rx torsemide 100 mg tablet 50 mg (1/2 x 100 mg) PO DAILY 30 10/04/24 Rx days #15 tabs tramadol 50 mg tablet 50 mg PO BIDP PRN Severe Pain 10/04/24 Rx (Scale Score 7-10) 30 days #60 tabs New Prescriptions to Start Prescriptions: albuterol sulfate Christine,Kevin allopurinol Christine,Kevin cholecalciferol (vitamin D3) Christine,Kevin fluticasone propion-salmeterol [Advair Diskus] Christine,Kevin insulin aspart U-100 [Novolog FlexPen U-100 Insulin] Christine,Kevin insulin glargine [Lantus Solostar U-100 Insulin] Christine,Kevin spironolactone Christine,Kevin torsemide Christine,Kevin tramadol Christine,Kevin Allergies Allergy/AdvReac Type Severity Reaction Status Date / Time Penicillins Allergy Intermediate Unknown Verified 10/04/24 10:56 allergy reaction codeine (CODEINE) Allergy Mild Unknown Verified 10/04/24 10:56 allergy reaction iodine (IODINE) Allergy Mild Unknown Verified 10/04/24 10:56 allergy reaction latex (LATEX) Allergy Mild Unknown Verified 10/04/24 10:56 allergy reaction oxycodone (OXYCODONE) Allergy Mild Unknown Verified 10/04/24 10:56 allergy reaction Sulfa (Sulfonamide Allergy Mild Unknown Verified 10/04/24 10:56 Antibiotics) (SULFA allergy (SULFONAMIDE ANTIBIOTICS)) reaction Cephalosporins Allergy Unknown Verified 10/04/24 10:56 allergy reaction doxycycline Allergy Unknown Verified 10/04/24 10:56 allergy reaction exenatide (From [place]) Allergy Unknown Verified 10/04/24 10:56 allergy reaction glyburide Allergy Unknown Verified 10/04/24 10:56 allergy reaction hyoscyamine (From Levbid) Allergy Unknown Verified 10/04/24 10:56 allergy reaction levofloxacin (From Levaquin) Allergy Unknown Verified 10/04/24 10:56 allergy reaction Discharge Plan Disposition Patient Disposition: Xfer SNF Condition: Fair Discharge Order Discharge Orders: Discharge Order (Routine); Ordered 10/04/24 Ordered By: Kevin iKng Follow up Plan Prescriptions/Medication Reconciliation: Continued allopurinol 100 mg tablet 100 mg PO DAILY 30 Days Qty: 30 0RF spironolactone 25 mg tablet 25 mg PO DAILY 30 Days Qty: 30 0RF fluticasone propion-salmeterol [Advair Diskus] 500-50 mcg/dose blister with device 1 inh inhalation BIDRT Qty: 60 0RF albuterol sulfate 90 mcg/actuation HFA aerosol inhaler 4 inh inhalation Q4HP PRN (Reason: shortness of breath or wheezing) 30 Days Qty: 8.5 0RF Rx Instructions: 4 puffs every 4 hours for 48 hours then as needed for shortness of breath or wheezing following tramadol 50 mg tablet 50 mg PO BIDP PRN (Reason: Severe Pain (Scale Score 7-10)) 30 Days Qty: 60 0RF Changed insulin aspart U-100 [Novolog FlexPen U-100 Insulin] 100 unit/mL (3 mL) insulin pen 10 unit SQ TID 30 Days Qty: 9 0RF Patient Comments: INJECT 15 UNITS UNDER THE SKIN THREE TIMES DAILY insulin glargine [Lantus Solostar U-100 Insulin] 100 unit/mL (3 mL) insulin pen 25 unit SQ BID 30 Days Qty: 15 0RF Patient Comments: INJECT 40 UNITS UNDER SKIN TWO TIMES DAILY cholecalciferol (vitamin D3) 50 MCG tablet,chewable 50 mcg PO DAILY 30 Days Qty: 30 0RF torsemide 100 MG tablet 50 mg PO DAILY 30 Days Qty: 15 0RF Problem Reconciliation Problems Reviewed?: Yes Patient Discharge Instructions ACTIVITY: Continue current activity DIET: continue same diet Patient Instructions: DI for Hypoglycemia, How to Prevent Falls Print Language: Estonian Providers Primary Care Provider: Provider,Referral Admit Provider: Kevin King Attending Provider: Kevin King
== END 2024-10-04 17:09 ==
LOC: ER 10-04 00:19 → 2ND 10-04 01:42
PROVIDERS: Nurse Practitioner Family; Admitting Provider Internal Medicine Adolescent Medicine; Emergency Provider Emergency Medicine; Visit Provider Internal Medicine Adolescent Medicine
DX: E11.65 Type 2 diabetes mellitus with hyperglycemia (principal); E11.22 Type 2 diabetes mellitus with diabetic chronic kidney disease; I13.0 Hypertensive heart and chronic kidney disease with heart failure and stage 1 through stage 4 chronic kidney disease, or unspecified chronic kidney disease; I50.30 Unspecified diastolic (congestive) heart failure; N18.9 Chronic kidney disease, unspecified; Z79.4 Long term (current) use of insulin; R55 Syncope and collapse; R29.6 Repeated falls; G47.33 Obstructive sleep apnea (adult) (pediatric); E66.01 Morbid (severe) obesity due to excess calories; Z68.42 Body mass index [BMI] 45.0-49.9, adult; R53.1 Weakness; Z87.891 Personal history of nicotine dependence; Z96.651 Presence of right artificial knee joint; Z79.899 Other long term (current) drug therapy; Z88.5 Allergy status to narcotic agent; Z91.041 Radiographic dye allergy status; Z88.0 Allergy status to penicillin; Z88.2 Allergy status to sulfonamides; Z88.9 Allergy status to unspecified drugs, medicaments and biological substances; Z88.1 Allergy status to other antibiotic agents; Z82.49 Family history of ischemic heart disease and other diseases of the circulatory system; Z82.3 Family history of stroke; R62.7 Adult failure to thrive
CPT/HCPCS: 96360; 96361; 36415; 70450; 71045; 72125; 80048; 80053; 82803; 82962; 83036; 83605; 83880; 84484; 85025; 85378; 93005; 94760; 94761; 97162; 97166; G0378; J1644

== ENCOUNTER 2024-11-25 21:43 | Observation (INO) | payer MEDICARE, SELFPAY ==
--- OUTSIDE RECORDS SUMMARY | 2024-10-10 08:45 | XMS_ITS | Continuity of Care Document ---
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
--- OUTSIDE RECORDS SUMMARY | 2024-10-10 16:34 | XMS_ITS | Encounter Summary ---
Author Organization [facility] ([place], [place], [place], [place]) Address [address] [place] [address] Care Team Providers Care Metal Fabricator Name Role Phone Norma Au APRN Primary Care Provider [phone] Reason for Visit * Auth/Cert (Routine) Specialty Diagnoses / Procedures Referred By Contac t Referred To Contact Diagnoses Joint infection (HCC) Post op infection POST OP INFECTION [facility] Tele[facility] [address] [place] [address] Phone: tel: fax: [facility] [address] [place] [address] Phone: tel: fax: Referral ID Status Reason Start Date Expiration Date Visits Re quested Visits Authorized [id number] 1 1 Encounter Details Date Type Department Care Team (Late st Contact Info) Description 10/10/2024 4:34 PM EDT - 10/14/2024 3:30 PM EDT Hospital Encounter [facility] [address] [place] [address] Brigitte Boone MD [address] [facility] [id number] 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 I have a [facility] place to live 10/10/2024 Think about [...] Do you speak a language other than Iraqi at ho me? No 10/10/2024 Do you [...] obstructive sleep apnea, she was sent from [facility]opedic for postoperative infection, status post right [...] faxed to [facility] at [phone] 3. Weekly PICC line dressing changes 4. Follow up in my clinic on 10/25/24. Clinic to call with the appointment time 5. Please fax a copy of my orders to [phone] and call [phone] with final discharge plans Studies Performed: Procedures [...] Your Medications These medications were sent to [facility] - [place], [place] - [address], [facility]ly [facility] [address] traMADoL 50 mg tablet Physical Exam BP (!) 145/62 Pulse 65 Temp 97.3 ??F (36.3 ??C) Resp 22 Ht 1.6 m (5' 2.99 ) Wt 110.6 kg (243 lb 13.3 oz) SpO2 96% BMI 43.20 kg/m?? Discharge Instructions Discharge Diet: Discharge Activity: Discharge Follow UP: Contact information for follow-up Wilfrido Stafford MD Specialty: Orthopedic Surgery [address] [facility] 2nd floor [facility] [address] Next Steps: Follow up in 3 day(s) David Bernal MD Specialty: General Surgery, Bariatric Surgery [address] [facility] [address] Next Steps: Follow up in 1 week(s) Time Spent: 33 min Electronically signed by Brigitte Boone MD, 10/14/24, 11:54 AM EDT documented in this encounter Discharge Instructions * Attachments The following attachments cannot be sent through Care Everywhere. * Prosthetic Joint Infection (Iraqi) * Arthritis Wavn-cp-Ertd (Iraqi) * Arthritis (Iraqi) * Septic Arthritis (Iraqi) documented in this encounter Medications at Time of Discharge mupirocin (BACTROBAN) 2 % ointment 1 Application 3 (three) times daily. 08/08/2024 acetaminophen (TYLENOL) 325 MG tablet Take 2 [...] under the skin 2 (two) times daily. ondansetron (ZOFRAN) 4 MG tablet Take 1 [...] that patient discharged over the weekend to [facility]. HARMONY left call back numberif needed. [...] in room or performing service/recovery/patient satisfaction activities [phone] Electronically signed by Sean Olmedo PT - [...] Agency Type SNF SNF Name and Number [facility] [phone] Per previous adult protective caseworker tommy Bailon was approved yesterday and was just waiting on final antibiotic plan for discharge. CM received consult this morning with antibiotic plan and faxed to [facility]. CM spoke with MARIXA Velasquez at facility and she confirms receiving faxed order and states that patient can admit today. DC summary to be faxed to [phone]. Number forreport is [phone]. CM faxed copy of antibiotic order/plan to [facility] office as ordered to [phone]. Family to transport. Packet in chart. CM updated nurse and provider. CM faxed dc summary to [phone]. Provided fax number to nurse also in case facility reports notreceiving. Requested nurse to place copy of dc summary and recent notes in packet to send with patient. * Socorro Flores RN - 10/14/2024 10:28 AM EDT HARMONY left a message for Marcie with [facility] at 0940 this morning, requested a return call to discuss discharge today, no call back at this time. HARMONY called facility directly and spoke with Eva. Updated that precert is approved but was waiting on final IV antibiotic plan and advised that is now ordered. HARMONY faxed antibiotic orders and updated notes to facility at [phone]. Requested for Eva to call back after [...] and diabetes mellitus who was sent from [facility] orth[facility] surgery yesterday for postoperative infection status [...] KNEE ARTHROPLASTY; Surgeon: Wilfrido Stafford MD; Location: [facility]; Service: Orthopedic Surgery; Laterality: Right; Slight Bruising noted at site of bovie pad removal, Left thigh CARDIAC CATHETERIZATION GALLBLADDER SURGERY HYSTERECTOMY I&D,ABSCESS LEG Right 10/11/2024 Procedure: IRRIGATION AND DEBRIDEMENT, SUBCUTANEOUS TISSUE, SKIN, WITH JOINT ASPIRATION AND CLOSURE, POST TOTAL KNEE REPLACEMENT; Surgeon: Wilfrido Stafford MD; Location: [facility]; Service: Orthopedic Surgery; Laterality: Right; Procedure [...] Component Value Units Date/Time Tissue Culture+ Stain [[id number]] (Abnormal) Collected: 10/11/24 1430 Order Status: Completed Specimen: Tissue from Knee, Right Updated: 10/13/24 1323 Result Light Growth Staphylococcus aureus Gram Stain Result No organisms seen No cells seen Narrative: Specimen Description: Right Knee Synovium #1 Tissue Culture+ Stain [[id number]] (Abnormal) Collected: 10/11/24 1431 Order Status: Completed Specimen: Tissue from Knee, Right Updated: 10/13/24 1030 Result Light Growth Staphylococcus aureus Gram Stain Result Rare gram positive cocci in pairs and clusters Rare WBCs Rare epithelial cells Narrative: Specimen Description: Right Knee Synovium #2 Blood Culture [[id number]] Collected: 10/11/24 0628 Order Status: Completed Specimen: Blood Updated: 10/13/24 0800 Result No growth in 48 hours AFB Culture And Stain [[id number]] Collected: 10/11/24 143 Order Status: Completed Specimen: Tissue from Knee, Right Updated: 10/12/24 1416 AFB Smear No acid fast bacilli seen Narrative: Specimen Description: Right Knee Synovium #1 AFB Culture And Stain [[id number]] Collected: 10/11/241430 Order Status: Completed Specimen: Tissue from Knee, Right Updated: 10/12/24 1416 AFB Smear No acid fast bacilli seen Narrative: Specimen Description: Right Knee Synovium #2 AFB Culture And Stain [[id number]] Collected: 10/11/241430 Order Status: Completed Specimen: Tissue from Knee, Right Updated: 10/12/24 1416 AFB Smear No acid fast bacilli seen Narrative: Specimen Description: Right Knee Synovium #3 Anaerobic Culture, Extended (P.acnes) [[id number]] Collected: 10/11/241430 Order Status: Completed Specimen: Tissue from Knee, Right Updated: 10/12/24 0828 Result Culture in progress Narrative: Specimen Description: Right Knee Synovium #3 Anaerobic Culture, Extended (P.acnes) [[id number]] Collected: 10/11/241430 Order Status: Completed Specimen: Tissue from Knee, Right Updated: 10/12/24 0827 Result Culture in progress Narrative: Specimen Description: Right Knee Synovium #2 Anaerobic Culture, Extended (P.acnes) [[id number]] Collected: 10/11/241429 Order Status: Completed Specimen: Tissue from Knee, Right Updated: 10/12/24 0827 Result Culture in progress Narrative: Specimen Description: Right Knee Synovium #1 Tissue Culture+ Stain [[id number]] Collected: 10/11/24 143 Order Status: Completed Specimen: Tissue from Knee, Right Updated: 10/12/24 0644 Result Culture in progress Gram Stain Result Few gram positive cocci in pairs and clusters Few WBCs Few epithelial cells Narrative: Specimen Description: Right Knee Synovium #3 Fungus Culture W/ERUM Or Alma Ink [[id number]] Collected: 10/11/24 143 Order Status: Completed Specimen: Tissue from Knee, Right Updated: 10/11/242023 ERUM Prep No fungal elements seen Narrative: Specimen Description: Right Knee Synovium #1 Fungus Culture W/ERUM Or Alma Ink [[id number]] Collected: 10/11/241430 Order Status: Completed Specimen: Tissue from Knee, Right Updated: 10/11/242023 ERUM Prep No fungal elements seen Narrative: Specimen Description: Right Knee Synovium #2 Fungus Culture W/ERUM Or Alma Ink [[id number]] Collected: 10/11/241430 Order Status: Completed Specimen: Tissue from Knee, Right Updated: 10/11/242023 ERUM Prep No fungal elements seen Narrative: Specimen Description: Right Knee Synovium #3 Body fluid cell count with differential [[id number]] (Abnormal) Collected: 10/11/241432 Order Status: Completed Specimen: [...] fluids are not defined. DIFFERENTIAL, BODY FLUID [[id number]] Collected: 10/11/241432 Order Status: Completed Specimen: Synovial Fluid from Body Fluid Updated: 10/11/241514 Neutrophils Fluid 67 % Lymphocytes Fluid 10 % Monocytes Fluid 14 % EOSINOPHILS 9 Anaerobic Culture [[id number]] Collected: 10/11/241430 Order Status: Sent Specimen: Tissue from Knee, Right Anaerobic Culture [[id number]] Collected: 10/11/241430 Order Status: Sent Specimen: Tissue from Knee, Right Anaerobic Culture [[id number]] Collected: 10/11/241429 Order Status: Sent Specimen: Tissue from Knee, Right Blood Culture [[id number]] Order Status: Sent Specimen: Blood Radiology: Radiology [...] faxed to [facility] at [phone] Weekly PICC line dressing changes Follow up in my clinic on 10/25/24. Clinic to call with the appointment time Please fax a copy of my orders to [phone] and call [phone] with final discharge plans I discussed with [...] POC-GLUCOSE 291 (H) 70 - 110 mg/dL Traffic Operations Manager [id number] Glucose, Nova Meter Status: Abnormal Collection Time: 10/12/24 8:41 PM Result Value Ref Range POC-GLUCOSE 277 (H) 70 - 110 mg/dL Traffic Operations Manager [id number] Glucose, Nova Meter Status: Abnormal Collection Time: 10/13/24 5:33 AM Result Value Ref Range POC-GLUCOSE 248 (H) 70 - 110 mg/dL Traffic Operations Manager [id number] Glucose, Nova Meter Status: Abnormal Collection Time: 10/13/24 11:10 AM Result Value Ref Range POC-GLUCOSE 275 (H) 70 - 110 mg/dL Traffic Operations Manager [id number] CT lower extremity without IV contrast right [...] intact Assessment Plan Set to return [facility] PICC line has been placed antibiotics being arranged waitingfor final cultures she seems to be responding well she will need to follow-up with [facility]ics in the [place] office on Wednesday10/17/2024 at 10:[address] Stafford Discharge Planning: * Uvaldo Hadley RN - 10/13/2024 2:49 PM EDT Discharge Plan Progress Note [facility] Discharge Review Discharge Review: Anticipated Discharge Date: 10/14/24 Patient/Surrogate/Designated Caregiver Discharge Disposition Goal: SNF Anticipated Discharge Plan: SNF Discharge Barriers/Clinical Progression(Medical, SDOH, Disposition Barriers): precert pending for [facility]; final IV abx plan Efforts to address [...] discharge needsduring acute hospitalization. Precert pending for [facility]. Packet created and placed in chart incase she discharges over the weekend. Number for report will be [phone]. [place] [facility] [place]. DC summary will need to be faxed to [phone]. Pt confirmed family to transport on discharge [...] POC-GLUCOSE 291 (H) 70 - 110 mg/dL Traffic Operations Manager [id number] Glucose, Nova Meter Status: Abnormal Collection Time: 10/12/24 8:41 PM Result Value Ref Range POC-GLUCOSE 277 (H) 70 - 110 mg/dL Traffic Operations Manager [id number] Glucose, Nova Meter Status: Abnormal Collection Time: 10/13/24 5:33 AM Result Value Ref Range POC-GLUCOSE 248 (H) 70 - 110 mg/dL Traffic Operations Manager [id number] Glucose, Nova Meter Status: Abnormal Collection Time: 10/13/24 11:10 AM Result Value Ref Range POC-GLUCOSE 275 (H) 70 - 110 mg/dL Traffic Operations Manager [id number] CT lower extremity without IV contrast right [...] daily in interim. CAD Chronic LBBB -S/p [facility] 07/2019 with mild CAD. -Follow up with spoon maker per recommendations. CKD She states that she [...] and diabetes mellitus who was sent from [facility] orthopedic surgery yesterday for postoperative infection status [...] KNEE ARTHROPLASTY; Surgeon: Wilfrido Stafford MD; Location: [facility]; Service: Orthopedic Surgery; Laterality: Right; Slight Bruising noted at site of bovie pad removal, Left thigh CARDIAC CATHETERIZATION GALLBLADDER SURGERY HYSTERECTOMY I&D,ABSCESS LEG Right 10/11/2024 Procedure: IRRIGATION AND DEBRIDEMENT, SUBCUTANEOUS TISSUE, SKIN, WITH JOINT ASPIRATION AND CLOSURE, POST TOTAL KNEE REPLACEMENT; Surgeon: Wilfrido Stafford MD; Location: [facility]; Service: Orthopedic Surgery; Laterality: Right; Procedure [...] Component Value Units Date/Time Tissue Culture+ Stain [[id number]] (Abnormal) Collected: 10/11/241429 Order Status: Completed Specimen: Tissue from Knee, Right Updated: 10/13/24 1323 Result Light Growth Staphylococcus aureus Gram Stain Result No organisms seen No cells seen Narrative: Specimen Description: Right Knee Synovium #1 Tissue Culture+ Stain [[id number]] (Abnormal) Collected: 10/11/24 143 Order Status: Completed Specimen: Tissue from Knee, Right Updated: 10/13/24 1030 Result Light Growth Staphylococcus aureus Gram Stain Result Rare gram positive cocci in pairs and clusters Rare WBCs Rare epithelial cells Narrative: Specimen Description: Right Knee Synovium #2 Blood Culture [[id number]] Collected: 10/11/24 0628 Order Status: Completed Specimen: Blood Updated: 10/13/24 0800 Result No growth in 48 hours AFB Culture And Stain [[id number]] Collected: 10/11/24 1430 Order Status: Completed Specimen: Tissue from Knee, Right Updated: 10/12/24 1416 AFB Smear No acid fast bacilli seen Narrative: Specimen Description: Right Knee Synovium #1 AFB Culture And Stain [[id number]] Collected: 10/11/24 143 Order Status: Completed Specimen: Tissue from Knee, Right Updated: 10/12/24 1416 AFB Smear No acid fast bacilli seen Narrative: Specimen Description: Right Knee Synovium #2 AFB Culture And Stain [[id number]] Collected: 10/11/24 143 Order Status: Completed Specimen: Tissue from Knee, Right Updated: 10/12/24 141 AFB Smear No acid fast bacilli seen Narrative: Specimen Description: Right Knee Synovium #3 Anaerobic Culture, Extended (P.acnes) [[id number]] Collected: 10/11/241430 Order Status: Completed Specimen: Tissue from Knee, Right Updated: 10/12/24 0828 Result Culture in progress Narrative: Specimen Description: Right Knee Synovium #3 Anaerobic Culture, Extended (P.acnes) [[id number]] Collected: 10/11/24 143 Order Status: Completed Specimen: Tissue from Knee, Right Updated: 10/12/24 0827 Result Culture in progress Narrative: Specimen Description: Right Knee Synovium #2 Anaerobic Culture, Extended (P.acnes) [[id number]] Collected: 10/11/241429 Order Status: Completed Specimen: Tissue from Knee, Right Updated: 10/12/24 0827 Result Culture in progress Narrative: Specimen Description: Right Knee Synovium #1 Tissue Culture+ Stain [[id number]] Collected: 10/11/241430 Order Status: Completed Specimen: Tissue from Knee, Right Updated: 10/12/24 0644 Result Culture in progress Gram Stain Result Few gram positive cocci in pairs and clusters Few WBCs Few epithelial cells Narrative: Specimen Description: Right Knee Synovium #3 Fungus Culture W/ERUM Or Alma Ink [[id number]] Collected: 10/11/241429 Order Status: Completed Specimen: Tissue from Knee, Right Updated: 10/11/242023 ERUM Prep No fungal elements seen Narrative: Specimen Description: Right Knee Synovium #1 Fungus Culture W/ERUM Or Alma Ink [[id number]] Collected: 10/11/24 143 Order Status: Completed Specimen: Tissue from Knee, Right Updated: 10/11/242023 ERUM Prep No fungal elements seen Narrative: Specimen Description: Right Knee Synovium #2 Fungus Culture W/ERUM Or Alma Ink [[id number]] Collected: 10/11/241430 Order Status: Completed Specimen: Tissue from Knee, Right Updated: 10/11/242023 ERUM Prep No fungal elements seen Narrative: Specimen Description: Right Knee Synovium #3 Body fluid cell count with differential [[id number]] (Abnormal) Collected: 10/11/24 143 Order Status: Completed [...] fluids are not defined. DIFFERENTIAL, BODY FLUID [[id number]] Collected: 10/11/241432 Order Status: Completed Specimen: Synovial Fluid from Body Fluid Updated: 10/11/24 1515 Neutrophils Fluid 67 % Lymphocytes Fluid 10 % Monocytes Fluid 14 % EOSINOPHILS 9 Anaerobic Culture [[id number]] Collected: 10/11/241430 Order Status: Sent Specimen: Tissue from Knee, Right Anaerobic Culture [[id number]] Collected: 10/11/241430 Order Status: Sent Specimen: Tissue from Knee, Right Anaerobic Culture [[id number]] Collected: 10/11/241429 Order Status: Sent Specimen: Tissue from Knee, Right Blood Culture [[id number]] Order Status: Sent Specimen: Blood Radiology: Radiology [...] 907 Session Duration 23 minutes CPT CODES: 43799 Gait training x 1, 05361 Therapeutic/functional activity x 1 General Visit Type: [...] 907 Session Duration: 23 minutes CPT CODES: 74085 ADL/self-care/home management x2 This patient is a [...] KNEE ARTHROPLASTY; Surgeon: Wilfrido Stafford MD; Location: [facility]; Service: Orthopedic Surgery; Laterality: Right; Slight Bruising noted at site of bovie pad removal, Left thigh CARDIAC CATHETERIZATION GALLBLADDER SURGERY HYSTERECTOMY I&D,ABSCESS LEG Right 10/11/2024 Procedure: IRRIGATION AND DEBRIDEMENT, SUBCUTANEOUS TISSUE, SKIN, WITH JOINT ASPIRATION AND CLOSURE, POST TOTAL KNEE REPLACEMENT; Surgeon: Wilfrido Stafford MD; Location: [facility]; Service: Orthopedic Surgery; Laterality: Right; Procedure on [...] 4FRSingle Lumen Peripherally Inserted Central Catheter Indications: Fpc Antibiotics Procedure Details Informed consent was obtained for the procedure. Time out performed at 0745 on Today 10/13/2024 and performed by Yobani Sepulveda RN. Risks of hemorrhage, infection and DVT were discussed. Maximum sterile technique was used including hand hygiene, sterile antiseptics, cap, gown, sterile gloves, mask, and sheet. Lidocaine 1% was used , with a total of 0.5 ml injected. Lot number: [id number] #catheter size: 4 FR Single Lumen Peripherally [...] and diabetes mellitus who was sent from [facility] surgery yesterday for postoperative infection status [...] KNEE ARTHROPLASTY; Surgeon: Wilfrido Stafford MD; Location: [facility]; Service: Orthopedic Surgery; Laterality: Right; Slight Bruising noted at site of bovie pad removal, Left thigh CARDIAC CATHETERIZATION GALLBLADDER SURGERY HYSTERECTOMY I&D,ABSCESS LEG Right 10/11/2024 Procedure: IRRIGATION AND DEBRIDEMENT, SUBCUTANEOUS TISSUE, SKIN, WITH JOINT ASPIRATION AND CLOSURE, POST TOTAL KNEE REPLACEMENT; Surgeon: Wilfrido Stafford MD; Location: [facility]; Service: Orthopedic Surgery; Laterality: Right; Procedure [...] 4 mg 4 mg oral Q8H PRN Briigtte Boone MD Or ondansetron (ZOFRAN) injection 4 [...] Value Units Date/Time AFB Culture And Stain [[id number]] Collected: 10/11/24 143 Order Status: Completed Specimen: Tissue from Knee, Right Updated: 10/12/24 141 AFB Smear No acid fast bacilli seen Narrative: Specimen Description: Right Knee Synovium #1 AFB Culture And Stain [[id number]] Collected: 10/11/241430 Order Status: Completed Specimen: Tissue from Knee, Right Updated: 10/12/24 1416 AFB Smear No acid fast bacilli seen Narrative: Specimen Description: Right Knee Synovium #2 AFB Culture And Stain [[id number]] Collected: 10/11/24 143 Order Status: Completed Specimen: Tissue from Knee, Right Updated: 10/12/24 1416 AFB Smear No acid fast bacilli seen Narrative: Specimen Description: Right Knee Synovium #3 Anaerobic Culture, Extended (P.acnes) [[id number]] Collected: 10/11/24 143 Order Status: Completed Specimen: Tissue from Knee, Right Updated: 10/12/24 0828 Result Culture in progress Narrative: Specimen Description: Right Knee Synovium #3 Anaerobic Culture, Extended (P.acnes) [[id number]] Collected: 10/11/24 143 Order Status: Completed Specimen: Tissue from Knee, Right Updated: 10/12/24 08 Result Culture in progress Narrative: Specimen Description: Right Knee Synovium #2 Anaerobic Culture, Extended (P.acnes) [[id number]] Collected: 10/11/24 1430 Order Status: Completed Specimen: Tissue from Knee, Right Updated: 10/12/24 0827 Result Culture in progress Narrative: Specimen Description: Right Knee Synovium #1 Blood Culture [[id number]] Collected: 10/11/24 0628 Order Status: Completed Specimen: Blood Updated: 10/12/24 0800 Result No growth in 24 hours Tissue Culture+ Stain [[id number]] Collected: 10/11/241430 Order Status: Completed Specimen: Tissue from Knee, Right Updated: 10/12/24 0644 Result Culture in progress Gram Stain Result Few gram positive cocci in pairs and clusters Few WBCs Few epithelial cells Narrative: Specimen Description: Right Knee Synovium #3 Tissue Culture+ Stain [[id number]] Collected: 10/11/24 143 Order Status: Completed Specimen: Tissue from Knee, Right Updated: 10/12/24 0643 Result No growth Gram Stain Result Rare gram positive cocci in pairs and clusters Rare WBCs Rare epithelial cells Narrative: Specimen Description: Right Knee Synovium #2 Tissue Culture+ Stain [[id number]] Collected: 10/11/24 1430 Order Status: Completed Specimen: Tissue from Knee, Right Updated: 10/12/24 0643 Result No growth Gram Stain Result No organisms seen No cells seen Narrative: Specimen Description: Right Knee Synovium #1 Fungus Culture W/ERUM Or Alma Ink [[id number]] Collected: 10/11/24 143 Order Status: Completed Specimen: Tissue from Knee, Right Updated: 10/11/242023 ERUM Prep No fungal elements seen Narrative: Specimen Description: Right Knee Synovium #1 Fungus Culture W/ERUM Or Alma Ink [[id number]] Collected: 10/11/24 143 Order Status: Completed Specimen: Tissue from Knee, Right Updated: 10/11/242023 ERUM Prep No fungal elements seen Narrative: Specimen Description: Right Knee Synovium #2 Fungus Culture W/ERUM Or Alma Ink [[id number]] Collected: 10/11/24 143 Order Status: Completed Specimen: Tissue from Knee, Right Updated: 10/11/242023 ERUM Prep No fungal elements seen Narrative: Specimen Description: Right Knee Synovium #3 Body fluid cell count with differential [[id number]] (Abnormal) Collected: 10/11/24 1433 Order Status: Completed [...] fluids are not defined. DIFFERENTIAL, BODY FLUID [[id number]] Collected: 10/11/241432 Order Status: Completed Specimen: Synovial Fluid from Body Fluid Updated: 10/11/24 1515 Neutrophils Fluid 67 % Lymphocytes Fluid 10 % Monocytes Fluid 14 % EOSINOPHILS 9 Anaerobic Culture [[id number]] Collected: 10/11/241430 Order Status: Sent Specimen: Tissue from Knee, Right Anaerobic Culture [[id number]] Collected: 10/11/241430 Order Status: Sent Specimen: Tissue from Knee, Right Anaerobic Culture [[id number]] Collected: 10/11/241429 Order Status: Sent Specimen: Tissue from Knee, Right Blood Culture [[id number]] Order Status: Sent Specimen: Blood Radiology: Radiology [...] systems review, and clinical reasoning. CPT CODES: 52194 Eval low complexity and 43592 ADL/self-care/home management x1 This patient is a [...] KNEE ARTHROPLASTY; Surgeon: Wilfrido Stafford MD; Location: [facility]; Service: Orthopedic Surgery; Laterality: Right; Slight Bruising noted at site of bovie pad removal, Left thigh CARDIAC CATHETERIZATION GALLBLADDER SURGERY HYSTERECTOMY I&D,ABSCESS LEG Right 10/11/2024 Procedure: IRRIGATION AND DEBRIDEMENT, SUBCUTANEOUS TISSUE, SKIN, WITH JOINT ASPIRATION AND CLOSURE, POST TOTAL KNEE REPLACEMENT; Surgeon: Wilfrido Stafford MD; Location: [facility]; Service: Orthopedic Surgery; Laterality: Right; Procedure on [...] max A to don socks. Outcome Measures [facility] Daily Living Functional Assessment How much help [...] (Minimal/Contact guard/Supervision/Setup) 4=None (Modified independent/Independent) The patient's [facility] raw score is 17. The patient currently has 50.11% functional impairment. Clinicians are most likely to recommend inpatient/SNF/long-term care for patients with scores between 6-17, [...] will likely be appropriate for inpatient rehab/SNF/ long-term care post hospitalization. Plan Recommendations Discharge recommendations: [...] minutes Total Time 35 minutes CPT CODES: 49311 Eval mod complex, No charge Rehab each [...] KNEE ARTHROPLASTY; Surgeon: Wilfrido Stafford MD; Location: [facility]; Service: Orthopedic Surgery; Laterality: Right; Slight Bruising noted at site of bovie pad removal, Left thigh CARDIAC CATHETERIZATION GALLBLADDER SURGERY HYSTERECTOMY I&D,ABSCESS LEG Right 10/11/2024 Procedure: IRRIGATION AND DEBRIDEMENT, SUBCUTANEOUS TISSUE, SKIN, WITH JOINT ASPIRATION AND CLOSURE, POST TOTAL KNEE REPLACEMENT; Surgeon: Wilfrido Stafford MD; Location: [facility]; Service: Orthopedic Surgery; Laterality: Right; Procedure on [...] Mobility Not assessed, patient ambulatory. Outcome Measures -[facility] Basic Mobility Inpatient Short Form How much [...] POC-GLUCOSE 132 (H) 70 - 110 mg/dL Traffic Operations Manager [id number] Glucose, Nova Meter Status: Abnormal Collection Time: 10/11/24 11:59 AM Result Value Ref Range POC-GLUCOSE 119 (H) 70 - 110 mg/dL Traffic Operations Manager [id number] Tissue Culture+ Stain Status: None (Preliminary result) [...] POC-GLUCOSE 138 (H) 70 - 110 mg/dL Traffic Operations Manager [id number] Glucose, Nova Meter Status: Abnormal Collection Time: 10/11/24 6:12 PM Result Value Ref Range POC-GLUCOSE 273 (H) 70 - 110 mg/dL Traffic Operations Manager [id number] Glucose, Nova Meter Status: Abnormal Collection Time: 10/11/24 8:58 PM Result Value Ref Range POC-GLUCOSE 265 (H) 70 - 110 mg/dL Traffic Operations Manager [id number] Glucose, Nova Meter Status: Abnormal Collection Time: 10/12/24 7:37 AM Result Value Ref Range POC-GLUCOSE 277 (H) 70 - 110 mg/dL Traffic Operations Manager [id number] CT lower extremity without IV contrast right [...] daily in interim. CAD Chronic LBBB -S/p [facility] 07/2019 with mild CAD. -Follow up with spoon maker per recommendations. CKD She states that she [...] POC-GLUCOSE 345 (H) 70 - 110 mg/dL Traffic Operations Manager [id number] Procalcitonin Status: Normal Collection Time: 10/10/24 7:06 [...] POC-GLUCOSE 240 (H) 70 - 110 mg/dL Traffic Operations Manager [id number] Glucose, Nova Meter Status: Abnormal Collection Time: 10/11/24 5:59 AM Result Value Ref Range POC-GLUCOSE 132 (H) 70 - 110 mg/dL Traffic Operations Manager [id number] CBC - Hemogram (SJ-BKR) Status: Abnormal Collection [...] daily in interim. CAD Chronic LBBB -S/p [facility] 07/2019 with mild CAD. -Follow up with spoon maker per recommendations. CKD Check BMP Type II [...] obstructive sleep apnea, she was sent from [facility] orthopedic for postoperative infection, status post right [...] 218 (H) 70 - 110 mg/dL Final Traffic Operations Manager 08/23/2024 [id number] Final WBC 08/25/2024 11.7 (H) 3.9 - [...] 227 (H) 70 - 110 mg/dL Final Traffic Operations Manager 08/23/2024 [id number] Final POC-GLUCOSE 08/23/2024 409 (H) 70 - 110 mg/dL Final Traffic Operations Manager 08/23/2024 [id number] Final POC-GLUCOSE 08/23/2024 435 (H) 70 - 110 mg/dL Final Traffic Operations Manager 08/23/2024 [id number] Final POC-GLUCOSE 08/23/2024 361 (H) 70 - 110 mg/dL Final Traffic Operations Manager 08/23/2024 [id number] Final WBC 08/24/2024 13.3 (H) 3.9 - [...] 222 (H) 70 - 110 mg/dL Final Traffic Operations Manager 08/24/2024 [id number] Final POC-GLUCOSE 08/24/2024 243 (H) 70 - 110 mg/dL Final Traffic Operations Manager 08/24/2024 [id number] Final POC-GLUCOSE 08/24/2024 260 (H) 70 - 110 mg/dL Final Traffic Operations Manager 08/24/2024 [id number] Final POC-GLUCOSE 08/24/2024 203 (H) 70 - 110 mg/dL Final Traffic Operations Manager 08/24/2024 [id number] Final Sodium 08/25/2024 133 (L) 136 - [...] 193 (H) 70 - 110 mg/dL Final Traffic Operations Manager 08/25/2024 [id number] Final POC-GLUCOSE 08/25/2024 231 (H) 70 - 110 mg/dL Final Traffic Operations Manager 08/25/2024 [id number] Final POC-GLUCOSE 08/25/2024 224 (H) 70 - 110 mg/dL Final Traffic Operations Manager 08/25/2024 [id number] Final POC-GLUCOSE 08/25/2024 258 (H) 70 - 110 mg/dL Final Traffic Operations Manager 08/25/2024 [id number] Final Sodium 08/26/2024 136 136 - 146 [...] 138 (H) 70 - 110 mg/dL Final Traffic Operations Manager 08/26/2024 [id number] Final POC-GLUCOSE 08/26/2024 157 (H) 70 - 110 mg/dL Final Traffic Operations Manager 08/26/[id number] lower extremity without IV contrast [...] daily in interim. CAD Chronic LBBB -S/p [facility] 07/2019 with mild CAD. -Follow up with spoon maker per recommendations. CKD Check BMP Type II [...] obstructive sleep apnea, she was sent from [facility] orthopedic for postoperative infection, status post right [...] 218 (H) 70 - 110 mg/dL Final Traffic Operations Manager 08/23/2024 [id number] Final WBC 08/25/2024 11.7 (H) 3.9 - [...] 227 (H) 70 - 110 mg/dL Final Traffic Operations Manager 08/23/2024 [id number] Final POC-GLUCOSE 08/23/2024 409 (H) 70 - 110 mg/dL Final Traffic Operations Manager 08/23/2024 [id number] Final POC-GLUCOSE 08/23/2024 435 (H) 70 - 110 mg/dL Final Traffic Operations Manager 08/23/2024 [id number] Final POC-GLUCOSE 08/23/2024 361 (H) 70 - 110 mg/dL Final Traffic Operations Manager 08/23/2024 [id number] Final WBC 08/24/2024 13.3 (H) 3.9 - [...] 222 (H) 70 - 110 mg/dL Final Traffic Operations Manager 08/24/2024 [id number] Final POC-GLUCOSE 08/24/2024 243 (H) 70 - 110 mg/dL Final Traffic Operations Manager 08/24/2024 [id number] Final POC-GLUCOSE 08/24/2024 260 (H) 70 - 110 mg/dL Final Traffic Operations Manager 08/24/2024 [id number] Final POC-GLUCOSE 08/24/2024 203 (H) 70 - 110 mg/dL Final Traffic Operations Manager 08/24/2024 [id number] Final Sodium 08/25/2024 133 (L) 136 - [...] 193 (H) 70 - 110 mg/dL Final Traffic Operations Manager 08/25/2024 [id number] Final POC-GLUCOSE 08/25/2024 231 (H) 70 - 110 mg/dL Final Traffic Operations Manager 08/25/2024 [id number] Final POC-GLUCOSE 08/25/2024 224 (H) 70 - 110 mg/dL Final Traffic Operations Manager 08/25/2024 [id number] Final POC-GLUCOSE 08/25/2024 258 (H) 70 - 110 mg/dL Final Traffic Operations Manager 08/25/2024 [id number] Final Sodium 08/26/2024 136 136 - 146 [...] 138 (H) 70 - 110 mg/dL Final Traffic Operations Manager 08/26/2024 [id number] Final POC-GLUCOSE 08/26/2024 157 (H) 70 - 110 mg/dL Final Traffic Operations Manager 08/26/[id number] lower extremity without IV contrast [...] 07/2019 with mild CAD. -Follow up with spoon maker per recommendations. CKD Check BMP Type II [...] see final note for antibiotic plan. * Uvaldo Hadley RN - 10/12/2024 10:16 AM EDTAssociated Order(s): IP CONSULT TO CARE COORDINATION Care Coordination Initial Assessment Home Environment Type of Residence: Private residence Living Arrangements: Alone Support System: Family members Current Agency Name & Number: Agency Type: SNF SNF Name and Number: [facility] Patient returning to prior living situation? No [...] Needed for Discharge: None Patient Discharge Goal: Jail Facility Mandated Reporting: Not applicable CM consulted for SNF placement. Met w/pt at bedside, confirmed contact, demographic and pcp information. Pt typically lives at home alone, but is currently residing at [facility] for STR. Pts goal is still to [...] and diabetes mellitus who was sent from [facility] orthopedic surgery yesterday for postoperative infection status [...] KNEE ARTHROPLASTY; Surgeon: Wilfrido Stafford MD; Location: [facility]; Service: Orthopedic Surgery; Laterality: Right; Slight Bruising [...] Procedure Component Value Units Date/Time Blood Culture [[id number]] Collected: 10/11/24627 Order Status: Resulted Specimen: Blood Updated: 10/11/24627 Blood Culture [[id number]] Order Status: Sent Specimen: Blood Radiology: Radiology [...] (From admission, onward) Start Ordered 10/11/24 1434 [facility] Non-Doctor Osteopathic Cytology RELEASE UPON ORDERING 10/11/24 1434 Complications: [...] documented in this encounter Plan of Treatment Pending Results Name Type Priority Associated Diagnoses Date /Time AFB Culture And Stain Microbiology Routine Infection of prosthetic knee joint (HCC) 10/11/2024 2:31 PM EDT Scheduled Orders Name Type Priority Associated Diagnoses [...] Infection of prosthetic knee joint (HCC) CYTOLOGY ([facility]) AP Routine 10/11/2024 2:33 PM EDT Infection [...] Glucose, Nova Meter (10/14/2024 11:28 AM EDT) [facility] POC-GLUCOSE 182(H) 70 - 110 mg/dL 10/14/2024 11:29 AM EDT [facility] Comment: In the event of poor peripheral blood flow, venous or arterial blood should be used due to the potential of erroneous results. Notified Nurse RBV Traffic Operations Manager [id number] 10/14/2024 11:29 AM EDT [facility] Blood WHOLE BLOOD / Unknown 10/14/2024 11:28 AM EDT 10/14/2024 11:29 AM EDT Narrative [facility] - 10/14/2024 11:29 AM EDT Traffic Operations Manager ID is - [id number] Brigitte Boone MD POINT OF CARE TEST ORDERABLES Final Result Performing Organization Address City/[facility]/ZIP Co de Phone Number [facility] [address] [place] [address], [facility] [phone] * (ABNORMAL) Glucose, Nova Meter (10/14/2024 5:32 AM EDT) POC-GLUCOSE 185(H) 70 - 110 mg/dL 10/14/2024 5:33 AM EDT [facility] Comment: In the event of poor peripheral blood flow, venous or arterial blood should be used due to the potential of erroneous results. Notified Nurse RBV Traffic Operations Manager [id number] 10/14/2024 5:33 AM EDT [facility] Blood WHOLE BLOOD / Unknown 10/14/2024 5:32 AM EDT 10/14/2024 5:33 AM EDT Narrative [facility] - 10/14/2024 5:33 AM EDT Traffic Operations Manager ID is - [id number] us Brigitte Boone MD POINT OF CARE TEST ORDERABLES Final Result Performing Organization Address [facility]/ZIP Co de Phone Number [facility] [address] [place] [address], [facility] [phone] * (ABNORMAL) Basic Metabolic Panel (10/14/2024 4:07 AM EDT) Sodium 136 136 - 146 meq/L 10/14/2024 4:25 AM EDT [facility] Potassium 4.1 3.5 - 5.1 meq/L 10/14/2024 4:25 AM EDT [facility] Chloride 102 102 - 112 meq/L 10/14/2024 4:25 AM EDT [facility] CO2 32 21 - 32 meq/L 10/14/2024 4:25 AM EDT [facility] Anion Gap 6(L) 9 - 20 10/14/2024 4:25 AM EDT [facility] BUN 35(H) 7 - 22 mg/dL 10/14/2024 4:25 AM EDT [facility] Creatinine 1.29(H) 0.55 - 1.02 mg/dL 10/14/2024 4:25 AM EDT [facility] BUN/Creatinine 27(H) 8 - 20 10/14/2024 4:25 AM EDT [facility] Glucose 211(H) 74 - 106 mg/dL 10/14/2024 4:25 AM EDT [facility] Calcium 8.4(L) 8.5 - 10.1 mg/dL 10/14/2024 4:25 AM EDT [facility] Osmolality Calc 286.2 mOsm/kg 4:25 AM EDT [facility] eGFR (mL/min/1.73m2) 41(L) >=60 mL/min/1.7 3m2 10/14/2024 4:25 AM EDT [facility] Comment:eGFR of <60 suggests chronic kidney disease if found over a 3 month period of time. eGFR <15 indicates renal failure. Blood Venipuncture / Unknown 10/14/2024 4:07 AM EDT 10/14/2024 4:07 AM EDT us Brigitte Boone MD LAB BLOOD ORDERABLES Final Re sult [facility] [address] [place] [address], [facility] [phone] * (ABNORMAL) CBC with Automated Diff (10/14/2024 4:07 AM EDT) WBC 8.3 3.9 - 10.0 K/ L 10/14/2024 4:20 AM EDT [facility] RBC 4.23 3.93 - 6.08 M/ L 10/14/2024 4:20 AM EDT [facility] Hemoglobin 12.7 11.2 - 15.7 GM/DL 10/14/2024 4:20 AM EDT [facility] Hematocrit 38.6 34.1 - 44.9 % 10/14/2024 4:20 AM EDT [facility] MCV 91 79 - 95 fL 10/14/2024 4:20 AM EDT [facility] MCH 30.0 25.6 - 32.2 pg 10/14/2024 4:20 AM EDT [facility] MCHC 32.9 32.2 - 36.5 GM/DL 10/14/2024 4:20 AM EDT [facility] RDW 12.8 11.6 - 14.4 % 10/14/2024 4:20 AM EDT [facility] Platelets 250 163 - 369 K/CU MM 10/14/2024 4:20 AM EDT [facility] MPV 9.3(L) 9.4 - 12.4 fL 10/14/2024 4:20 AM EDT [facility] % Neutros 66 34 - 71 % 10/14/2024 4:20 AM EDT [facility] % Lymphs 21 19 - 53 % 10/14/2024 4:20 AM EDT [facility] % Monos 11 4 - 13 % 10/14/2024 4:20 AM EDT [facility] % Eos 1 1 - 7 % 10/14/2024 4:20 AM EDT [facility] % Baso 0 0 - 1 % 10/14/2024 4:20 AM EDT [facility] # Neutros 5.42 1.56 - 6.13 K/ L 10/14/2024 4:20 AM EDT [facility] # Lymphs 1.76 1.18 - 3.74 K/ L 10/14/2024 4:20 AM EDT [facility] # Monos 0.92(H) 0.24 - 0.82 K/ L 10/14/2024 4:20 AM EDT [facility] # Eos 0.11 0.04 - 0.54 K/ L 10/14/2024 4:20 AM EDT [facility] # Baso 0.02 0.01 - 0.08 K/ L 10/14/2024 4:20 AM EDT [facility] Immature Granulocytes-Re lative 0.20 0.00 - 0.60 % 10/14/2024 4:20 AM EDT [facility] # IG 0.02 0.00 - 0.05 K/uL 10/14/2024 4:20 AM EDT [facility] Blood Venipuncture / Unknown 10/14/2024 4:07 AM EDT 10/14/2024 4:07 AM EDT [facility] - 10/14/2024 4:20 AM EDT When [...] MD LAB BLOOD ORDERABLES Final Re sult [facility] [address] [place] [address] * (ABNORMAL) Glucose, Nova Meter (10/13/2024 8:14 PM EDT) POC-GLUCOSE 234(H) 70 - 110 mg/dL 10/13/2024 8:15 PM EDT [facility] Comment: In the event of poor peripheral blood flow, venous or arterial blood should be used due to the potential of erroneous results. Notified Nurse RBV Traffic Operations Manager [id number] 10/13/2024 8:15 PM EDT [facility] Blood WHOLE BLOOD / Unknown 10/13/2024 8:14 PM EDT 10/13/2024 8:15 PM EDT [facility] - 10/13/2024 8:15 PM EDT Traffic Operations Manager ID is - [id number] Brigitte Boone MD POINT OF CARE TEST ORDERABLES Final Result Performing Organization Address [facility] Co de Phone Number [facility] [address] [phone] * (ABNORMAL) Glucose, Nova Meter (10/13/2024 3:47 PM EDT) POC-GLUCOSE 197(H) 70 - 110 mg/dL 10/13/2024 3:49 PM EDT [facility] Comment: In the event of poor peripheral blood flow, venous or arterial blood should be used due to the potential of erroneous results. Notified Nurse RBV Traffic Operations Manager [id number] 10/13/2024 3:49 PM EDT [facility] Blood WHOLE BLOOD / Unknown 10/13/2024 3:47 PM EDT 10/13/2024 3:49 PM EDT [facility] - 10/13/2024 3:49 PM EDT Traffic Operations Manager ID is - [id number] Brigitte Boone MD POINT OF CARE TEST ORDERABLES Final Result Performing Organization Address [facility] de Phone Number [facility] [address] [phone] * (ABNORMAL) Glucose, Nova Meter (10/13/2024 11:10 AM EDT) POC-GLUCOSE 275(H) 70 - 110 mg/dL 10/13/2024 11:12 AM EDT [facility] Comment: In the event of poor peripheral blood flow, venous or arterial blood should be used due to the potential of erroneous results. Notified Nurse RBV Traffic Operations Manager [id number] 10/13/2024 11:12 AM EDT [facility] Blood WHOLE BLOOD / Unknown 10/13/2024 11:10 AM EDT 10/13/2024 11:12 AM EDT [facility] - 10/13/2024 11:12 AM EDT Traffic Operations Manager ID is - [id number] Brigitte Boone MD POINT OF CARE TEST ORDERABLES Final Result Performing Organization Address [facility] Co de Phone Number [facility] [address] [phone] * (ABNORMAL) Glucose, Nova Meter (10/13/2024 5:33 AM EDT) POC-GLUCOSE 248(H) 70 - 110 mg/dL 10/13/2024 5:34 AM EDT [facility] Comment: In the event of poor peripheral blood flow, venous or arterial blood should be used due to the potential of erroneous results. Notified Nurse RBV Traffic Operations Manager [id number] 10/13/2024 5:34 AM EDT [facility] Blood WHOLE BLOOD / Unknown 10/13/2024 5:33 AM EDT 10/13/2024 5:34 AM EDT [facility] - 10/13/2024 5:34 AM EDT Traffic Operations Manager ID is - [id number] Brigitte Boone MD POINT OF CARE TEST ORDERABLES Final Result Performing Organization Address [facility] de Phone Number [facility] [address] [phone] * (ABNORMAL) Glucose, Nova Meter (10/12/2024 8:41 PM EDT) POC-GLUCOSE 277(H) 70 - 110 mg/dL 10/12/2024 8:42 PM EDT [facility] Comment: In the event of poor peripheral blood flow, venous or arterial blood should be used due to the potential of erroneous results. Notified Nurse RBV Traffic Operations Manager [id number] 10/12/2024 8:42 PM EDT [facility] Blood WHOLE BLOOD / Unknown 10/12/2024 8:41 PM EDT 10/12/2024 8:42 PM EDT [facility] - 10/12/2024 8:42 PM EDT Traffic Operations Manager ID is - [id number] Brigitte Boone MD POINT OF CARE TEST ORDERABLES Final Result Performing Organization Address [facility] Co de Phone Number [facility] [address] [phone] * (ABNORMAL) Glucose, Nova Meter (10/12/2024 3:53 PM EDT) POC-GLUCOSE 291(H) 70 - 110 mg/dL 10/12/2024 3:54 PM EDT [facility] Comment: In the event of poor peripheral blood flow, venous or arterial blood should be used due to the potential of erroneous results. Notified Nurse RBV Traffic Operations Manager [id number] 10/12/2024 3:54 PM EDT [facility] Blood WHOLE BLOOD / Unknown 10/12/2024 3:53 PM EDT 10/12/2024 3:54 PM EDT [facility] - 10/12/2024 3:54 PM EDT Traffic Operations Manager ID is - [id number] Brigitte Boone MD POINT OF CARE TEST ORDERABLES Final Result Performing Organization Address [facility] de Phone Number [facility] [address] [phone] * (ABNORMAL) Glucose, Nova Meter (10/12/2024 11:28 AM EDT) POC-GLUCOSE 343(H) 70 - 110 mg/dL 10/12/2024 11:29 AM EDT [facility] Comment: In the event of poor peripheral blood flow, venous or arterial blood should be used due to the potential of erroneous results. Notified Nurse RBV Traffic Operations Manager [id number] 10/12/2024 11:29 AM EDT [facility] Blood WHOLE BLOOD / Unknown 10/12/2024 11:28 AM EDT 10/12/2024 11:29 AM EDT [facility] - 10/12/2024 11:29 AM EDT Traffic Operations Manager ID is - [id number] Brigitte Boone MD POINT OF CARE TEST ORDERABLES Final Result Performing Organization Address [facility] Co de Phone Number [facility] [address] [place] [address], [facility] [phone] * (ABNORMAL) Glucose, Nova Meter (10/12/2024 7:37 AM EDT) POC-GLUCOSE 277(H) 70 - 110 mg/dL 10/12/2024 7:39 AM EDT [facility] Comment: In the event of poor peripheral blood flow, venous or arterial blood should be used due to the potential of erroneous results. Received Meds Traffic Operations Manager [id number] 10/12/2024 7:39 AM EDT [facility] Blood WHOLE BLOOD / Unknown 10/12/2024 7:37 AM EDT 10/12/2024 7:39 AM EDT Narrative [facility] - 10/12/2024 7:39 AM EDT Traffic Operations Manager ID is - [id number] Brigitte Boone MD POINT OF CARE TEST ORDERABLES Final Result Performing Organization Address [facility] Co de Phone Number [facility] [address] [phone] * (ABNORMAL) Glucose, Nova Meter (10/11/2024 8:58 PM EDT) POC-GLUCOSE 265(H) 70 - 110 mg/dL 10/11/2024 8:59 PM EDT [facility] Comment: In the event of poor peripheral blood flow, venous or arterial blood should be used due to the potential of erroneous results. Notified Nurse RBV Traffic Operations Manager [id number] 10/11/2024 8:59 PM EDT [facility] Blood WHOLE BLOOD / Unknown 10/11/2024 8:58 PM EDT 10/11/2024 8:59 PM EDT Narrative [facility] - 10/11/2024 8:59 PM EDT Traffic Operations Manager ID is - [id number] Brigitte Boone MD POINT OF CARE TEST ORDERABLES Final Result Performing Organization Address [facility] Co de Phone Number [facility] [address] [place] [address], [facility] [phone] * (ABNORMAL) Glucose, Nova Meter (10/11/2024 6:12 PM EDT) POC-GLUCOSE 273(H) 70 - 110 mg/dL 10/11/2024 6:14 PM EDT [facility] Comment: In the event of poor peripheral blood flow, venous or arterial blood should be used due to the potential of erroneous results. Notified Nurse RBV Traffic Operations Manager [id number] 10/11/2024 6:14 PM EDT [facility] Blood WHOLE BLOOD / Unknown 10/11/2024 6:12 PM EDT 10/11/2024 6:14 PM EDT [facility] - 10/11/2024 6:14 PM EDT Traffic Operations Manager ID is - [id number] Brigitte Boone MD POINT OF CARE TEST ORDERABLES Final Result Performing Organization Address [facility] de Phone Number [facility] [address] [phone] * (ABNORMAL) Glucose, Nova Meter (10/11/2024 3:48 PM EDT) POC-GLUCOSE 138(H) 70 - 110 mg/dL 10/11/2024 3:49 PM EDT [facility] Comment:In the event of poor peripheral blood flow, venous or arterial blood should be used due to the potential of erroneous results. Traffic Operations Manager [id number] 10/11/2024 3:49 PM EDT [facility] Blood WHOLE BLOOD / Unknown 10/11/2024 3:48 PM EDT 10/11/2024 3:49 PM EDT [facility] - 10/11/2024 3:49 PM EDT Traffic Operations Manager ID is - [id number] Brigitte Boone MD POINT OF CARE TEST ORDERABLES Final Result Performing Organization Address [facility] Hospital/ZIP Co de Phone Number [facility] [address] [phone] * DIFFERENTIAL, BODY FLUID (10/11/2024 2:33 PM EDT) Neutrophils Fluid 67 0 - 25 % 10/11/2024 3:15 PM EDT [facility] Lymphocytes Fluid 10 % 10/11/2024 3:15 PM EDT [facility] Monocytes Fluid 14 0 - 65 % 3:15 PM EDT [facility] EOSINOPHILS 9 10/11/2024 3:15 PM EDT [facility] Synovial Fluid BODY FLUID / Unknown 10/11/2024 2:33 PM EDT 10/11/2024 2:39 PM EDT Wilfrido Stafford MD BODY FLUIDS AND STOOLS ORDERABLE S Final Result Performing Organization Address [facility] Co de Phone Number [facility] [address] [phone] * [facility] Non-Doctor Osteopathic Cytology (10/11/2024 2:33 PM EDT) AP RESULT See Note: [facility] Comment: [facility] [address] [place] [address] or [phone] Rusty Ferris M.D., [employer] PATIENT NAME LABORATORY NO. 170LOUIE SCHUMACHER. [id number] AGE SEX SSN CLIENT REF # [facility] 84 [id number] [address] REQUESTING John ATTENDING [place]ary [place] [address] WILFRIDO STAFFORD DATE COLLECTED DATE RECEIVED DATE REPORTED 10/11/2024 10/11/202410/1210/12/2024 DIAGNOSIS: SYNOVIAL JOINT FLUID, RIGHT KNEE: Negative for malignant cells. MICROSCOPIC DESCRIPTION: Acute and chronic inflammation are present in a background of amorphous debris. Professional interpretation rendered by Efrain Ferguson M.D., Geraldine at [employer], [facility], [address] [place] [address]. 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 Cell block has been examined. ADDICTIONS COUNSELOR ASSISTANT: NAHOMI MARTINEZ (ASCP) REVIEWED, DIAGNOSED AND ELECTRONICALLY SIGNED BY: Efrain Ferguson M.D., Geraldine CPT CODES: [id number], [id number] Synovial Fluid BODY FLUID / Unknown 10/11/2024 2:33 PM EDT us Wilfrido Stafford MD PATHOLOGY/CYTOLOGY ORDERABLES [facility] Result PATHOLOGY [facility]TOLOGY LABORATORY [address] [place] [address] * (ABNORMAL) Body fluid cell count with differential (10/11/2024 2:33 PM EDT) Appearance Bloody(A) Clear 10/11/2024 3:15 PM EDT [facility] Color Red 10/11/2024 3:15 PM EDT [facility] BODY FLUID TYPE Synovial 3:15 PM EDT [facility] Auto WBC/Nucleated Cells BF 1,861 /uL 10/11/2024 3:15 PM EDT [facility] Comment: Please refer to specific WBC/Nucleated Cell Count Body Fluid reference ranges below: For Pleural: 0-1000 Peritoneal: 0-1000 Pericardial:0-1000 Synovial: 0-200 Auto RBC BF 80,000 /uL 10/11/2024 3:15 PM EDT [facility] Comment: Please refer to specific RBC Cell Count Body Fluid reference ranges below: Pleural: 0-10,000 Peritoneal: 0-10,000 Pericardial:0-10,000 Synovial:0-30 Synovial Fluid BODY FLUID / Unknown 10/11/2024 2:33 PM EDT 10/11/2024 2:39 PM EDT Narrative [facility] - 10/11/2024 3:15 PM EDT There is normally no readily obtainable pleural, peritoneal and pericardial fluid, hence normal elements for these potential fluids are not defined. us Wilfrido Stafford MD BODY FLUIDS AND STOOLS ORDERABLE S Final Result [facility] [address] [phone] * SPIN/CONCENTRATION CHARGE (10/11/2024 2:31 PM EDT) Concentration charged Done 10/23/2024 10:[address] [facility] Tissue STRUCTURE OF RIGHT KNEE REGION / Unknown 10/11/2024 2:31 PM EDT 10/11/2024 3:04 PM EDT us Wilfrido Stafford MD MICROBIOLOGY - GENERAL ORDERABLE S Final Result Performing Organization Address City/[facility]/ZIP Co de Phone Number [facility] [address] [phone] * SPIN/CONCENTRATION CHARGE (10/11/2024 2:31 PM EDT) Concentration charged Done 10/12/2024 2:[address] [facility] Tissue STRUCTURE OF RIGHT KNEE REGION / Unknown 10/11/2024 2:31 PM EDT 10/11/2024 3:05 PM EDT us Wilfrido Stafford MD MICROBIOLOGY - GENERAL ORDERABLE S Final Result Performing Organization Address City/[facility]/ZIP Co de Phone Number [facility] [address] [phone] * AFB Culture And Stain (10/11/2024 2:31 PM EDT) Result No Acid Fast Bacilli isolated at 6 weeks 11/22/2024 4:[address] [facility] AFB Smear No acid fast bacilli seen 11/22/2024 4:[address] [facility] Tissue STRUCTURE OF RIGHT KNEE REGION / Unknown 10/11/2024 2:31 PM EDT 10/11/2024 3:05 PM EDT [facility] - 11/22/2024 4:00 PM EDT Specimen Description: Right Knee Synovium #2 us Wilfrido Stafford MD MICROBIOLOGY - GENERAL ORDERABLE S Final Result [facility] [address] [place] [address], [facility] [phone] * Fungus Culture W/ERUM Or Alma Ink (10/11/2024 2:31 PM EDT) Result No fungus isolated at 6 weeks. 11/22/2024 4:[address] [facility] ERUM Prep No fungal elements seen 11/22/2024 4:[address] [facility] Tissue STRUCTURE OF RIGHT KNEE REGION / Unknown 10/11/2024 2:31 PM EDT 10/11/2024 3:04 PM EDT [facility] - 11/22/2024 4:00 PM EDT Specimen Description: Right Knee Synovium #3 us Wilfrido Stafford MD MICROBIOLOGY - GENERAL ORDERABLE S Final Result [facility] [address] [place] [address], [facility] [phone] * Fungus Culture W/ERUM Or Alma Ink (10/11/2024 2:31 PM EDT) Result No fungus isolated at 6 weeks. 11/22/2024 4:[address] [facility] ERUM Prep No fungal elements seen 11/22/2024 4:[address] [facility] Tissue STRUCTURE OF RIGHT KNEE REGION / Unknown 10/11/2024 2:31 PM EDT 10/11/2024 3:03 PM EDT [facility] - 11/22/2024 4:00 PM EDT Specimen Description: Right Knee Synovium #2 Wilfrido Stafford MD MICROBIOLOGY - GENERAL ORDERABLE S Final Result Performing Organization Address [facility] Co de Phone Number [facility] [address] [phone] * (ABNORMAL) Anaerobic Culture, Extended (P.acnes) (10/11/2024 2:31 PM EDT) Result Anaerococcus vaginalis(A) 10/25/2024 7:[address] [facility] Result Peptoniphilus harei(A) 10/25/2024 7:[address] [facility] Result Porphyromonas somerae(A) 10/25/2024 7:[address] [facility] Result Anaerobic gram positive cocci(A) 10/25/2024 7:[address] [facility] Comment:* - Peptoniphilus sp ecies Tissue STRUCTURE OF RIGHT KNEE REGION / Unknown 10/11/2024 2:31 PM EDT 10/11/2024 3:03 PM EDT [facility] - 10/25/2024 7:00 AM EDT Specimen Description: Right Knee Synovium #3 For Peptoniphilus species ID This test was developed and its performance characteristics determined by [facility]. It has not been cleared by [...] ORDERABLE S Final Result Performing Organization Address [facility]/ZIP Co de Phone Number [facility] [address] [phone] * (ABNORMAL) Anaerobic Culture, Extended (P.acnes) (10/11/2024 2:31 PM EDT) Result Peptoniphilus harei(A) 10/24/2024 7:[address] [facility] Result Porphyromonas somerae(A) 10/24/2024 7:[address] [facility] Result Cutibacterium acnes(A) 10/24/2024 7:[address] [facility] Tissue STRUCTURE OF RIGHT KNEE REGION / Unknown 10/11/2024 2:31 PM EDT 10/11/2024 3:[address] [facility] - 10/24/2024 7:06 AM EDT Specimen Description: Right Knee Synovium #2 Mixed growth suggestive of colonization or indigenous alvaro. Inappropriate for full workup us Wilfrido Stafford MD MICROBIOLOGY - GENERAL ORDERABLE S Final Result [facility] [address] [phone] * (ABNORMAL) Tissue Culture+ Stain (10/11/2024 2:31 PM EDT) Result Moderate Growth Methicillin resistant Staphylococcus aureus(A) 10/15/2024 11:[address] [facility] Comment: Resistant organism requires isolation protocol. For susceptibility see previous report - Accession - [id number] Result Light Growth Haemophilus parainfluenzae(A) 10/15/2024 11:[address] [facility] Comment:Beta-lactamase negat brooke Gram Stain Result Few gram positive cocci in pairs and clusters 10/15/2024 11:[address] [facility] Gram Stain Result Few WBCs 025 11:[address] [facility] Gram Stain Result Few epithelial cells 10/15/2024 11:[address] [facility] Tissue STRUCTURE OF RIGHT KNEE REGION / Unknown 10/11/2024 2:31 PM EDT 10/11/2024 3:[address] [facility] - 10/15/2024 11:51 AM EDT Specimen Description: Right Knee Synovium #3 us Wilfrido Stafford MD MICROBIOLOGY - GENERAL ORDERABLE S Final Result [facility] [address] [phone] * (ABNORMAL) Tissue Culture+ Stain (10/11/2024 2:31 PM EDT) Result Light Growth Methicillin resistant Staphylococcus aureus(A) 10/14/2024 8:[address] [facility] Comment: Resistant organism requires isolation protocol. For susceptibility see previous report - Accession - [id number] Gram Stain Result Rare gram positive cocci in pairs and clusters 10/14/2024 8:[address] [facility] Gram Stain Result Rare WBCs 025 8:[address] [facility] Gram Stain Result Rare epithelial cells 10/14/2024 8:[address] [facility] Tissue STRUCTURE OF RIGHT KNEE REGION / Unknown 10/11/2024 2:31 PM EDT 10/11/2024 3:[address] [facility] - 10/14/2024 8:27 AM EDT Specimen Description: Right Knee Synovium #2 us Wilfrido Stafford MD MICROBIOLOGY - GENERAL ORDERABLE S Final Result [facility] [address] [place] [address], [facility] [phone] * AFB Culture And Stain (10/11/2024 2:30 PM EDT) Result No Acid Fast Bacilli isolated at 6 weeks 11/22/2024 4:[address] [facility] AFB Smear No acid fast bacilli seen 11/22/2024 4:[address] [facility] Tissue STRUCTURE OF RIGHT KNEE REGION / Unknown 10/11/2024 2:30 PM EDT 10/11/2024 3:04 PM EDT [facility] - 11/22/2024 4:00 PM EDT Specimen Description: Right Knee Synovium #1 us Wilfrido Stafford MD MICROBIOLOGY - GENERAL ORDERABLE S Final Result [facility] [address] [phone] * Fungus Culture W/ERUM Or Alma Ink (10/11/2024 2:30 PM EDT) Result No fungus isolated at 6 weeks. 11/22/2024 4:[address] [facility] ERUM Prep No fungal elements seen 11/22/2024 4:[address] [facility] Tissue STRUCTURE OF RIGHT KNEE REGION / Unknown 10/11/2024 2:30 PM EDT 10/11/2024 3:03 PM EDT [facility] - 11/22/2024 4:00 PM EDT Specimen Description: Right Knee Synovium #1 us Wilfrido Stafford MD MICROBIOLOGY - GENERAL ORDERABLE S Final Result Performing Organization Address [facility] Co de Phone Number [facility] [address] [phone] * (ABNORMAL) Anaerobic Culture, Extended (P.acnes) (10/11/2024 2:30 PM EDT) Result Porphyromonas somerae(A) 10/25/2024 6:[address] [facility] Result Anaerobic gram positive cocci(A) 10/25/2024 6:[address] [facility] Comment:* - Peptoniphilus sp ecies Tissue STRUCTURE OF RIGHT KNEE REGION / Unknown 10/11/2024 2:30 PM EDT 10/11/2024 3:03 PM EDT [facility] - 10/25/2024 6:57 AM EDT Specimen Description: Right Knee Synovium #1 Peptoniphilus species This test was developed and its performance characteristics determined by [facility]. It has not been cleared by the [place] Food and Drug Administration This result was determined by [employer]. This test is used for clinical purposes. It should not be reguarded as investigational or for research Mixed growth suggestive of colonization or indigenous alvaro. Inappropriate for full workup us Wilfrido Stafford MD MICROBIOLOGY - GENERAL ORDERABLE S Final Result [facility] [address] [phone] * (ABNORMAL) Tissue Culture+ Stain (10/11/2024 2:30 PM EDT) Result Light Growth Methicillin resistant Staphylococcus aureus(A) 10/14/2024 8:[address] [facility] Comment:Resistant organism r equires isolation protocol. Gram Stain Result No organisms seen 10/14/2024 8:[address] [facility] Gram Stain Result No cells seen 10/14/2024 8:[address] [facility] Tissue STRUCTURE OF RIGHT KNEE REGION / Unknown 10/11/2024 2:30 PM EDT 10/11/2024 3:03 PM EDT [facility] - 10/14/2024 8:26 AM EDT Specimen [...] Methicillin resistant Staphylococcus aureus Vancomycin 1: Susceptible Wilfrido Stafford MD MICROBIOLOGY - GENERAL ORDERABLE S Final Result [facility] [address] [phone] * (ABNORMAL) Glucose, Nova Meter (10/11/2024 11:59 AM EDT) POC-GLUCOSE 119(H) 70 - 110 mg/dL 10/11/2024 12:01 PM EDT [facility] Comment: In the event of poor peripheral blood flow, venous or arterial blood should be used due to the potential of erroneous results. Notified Nurse RBV Traffic Operations Manager [phone] 10/11/2024 12:01 PM EDT [facility] Blood WHOLE BLOOD / Unknown 10/11/2024 11:59 AM EDT 10/11/2024 12:00 PM EDT Narrative [facility] - 10/11/2024 12:01 PM EDT Traffic Operations Manager ID is - [id number] us Brigitte Boone MD POINT OF CARE TEST ORDERABLES Final Result Performing Organization Address [facility]/State/ZIP Co de Phone Number [facility] [address] [phone] * (ABNORMAL) Glucose, Nova Meter (10/11/2024 11:10 AM EDT) POC-GLUCOSE 132(H) 70 - 110 mg/dL 10/11/2024 11:11 AM EDT [facility] Comment: In the event of poor peripheral blood flow, venous or arterial blood should be used due to the potential of erroneous results. Notified Nurse RBV Traffic Operations Manager [phone] 10/11/2024 11:11 AM EDT [facility] Blood WHOLE BLOOD / Unknown 10/11/2024 11:10 AM EDT 10/11/2024 11:11 AM EDT Narrative [facility] - 10/11/2024 11:11 AM EDT Traffic Operations Manager ID is - [id number] us Brigitte Boone MD POINT OF CARE TEST ORDERABLES Final Result Performing Organization Address City/[facility]/ZIP Co de Phone Number [facility] [address] [phone] * Blood Culture (10/11/2024 6:28 AM EDT) Result No growth in 5 days 10/16/2024 8:[address] [facility] Blood STRUCTURE OF RIGHT HAND / Unknown Venipuncture / Unknown 10/11/2024 6:28 AM EDT 10/11/2024 6:28 AM EDT us Brigitte Boone MD MICROBIOLOGY - GENERAL ORDERA BLES Final Result Performing Organization Address City/[facility]/ZIP Co de Phone Number [facility] [address] [phone] * Creatine Kinase (CK) (10/11/2024 6:21 AM EDT) Total CK 87 26 - 192 U/L 10/11/2024 8:35 AM EDT [facility] Blood Venipuncture / Unknown 10/11/2024 6:21 AM EDT 10/11/2024 6:28 AM EDT us Daivd Fulton MD LAB BLOOD ORDERABLES Final Re sult Performing Organization Address City/[facility]/ZIP Co de Phone Number [facility] [address] [place] [id number], [place] [phone] * (ABNORMAL) Basic Metabolic Panel (10/11/2024 6:21 AM EDT) Sodium 137 136 - 146 meq/L 10/11/2024 6:48 AM EDT [facility] Potassium 3.8 3.5 - 5.1 meq/L 10/11/2024 6:48 AM EDT [facility] Chloride 101(L) 102 - 112 meq/L 10/11/2024 6:48 AM EDT [facility] CO2 33(H) 21 - 32 meq/L 10/11/2024 6:48 AM EDT [facility] Anion Gap 7(L) 9 - 20 10/11/2024 6:48 AM EDT [facility] BUN 26(H) 7 - 22 mg/dL 10/11/2024 6:48 AM EDT [facility] Creatinine 1.52(H) 0.55 - 1.02 mg/dL 10/11/2024 6:48 AM EDT [facility] BUN/Creatinine 17 8 - 20 10/11/2024 6:48 AM EDT [facility] Glucose 122(H) 74 - 106 mg/dL 10/11/2024 6:48 AM EDT [facility] Calcium 9.1 8.5 - 10.1 mg/dL 10/11/2024 6:48 AM EDT [facility] Osmolality Calc 279.9 mOsm/kg 6:48 AM EDT [facility] eGFR (mL/min/1.73m2) 33(L) >=60 mL/min/1.7 3m2 10/11/2024 6:48 AM EDT [facility] Comment:eGFR of <60 suggests chronic kidney disease if found over a 3 month period of time. eGFR <15 indicates renal failure. Blood Venipuncture / Unknown 10/11/2024 6:21 AM EDT 10/11/2024 6:28 AM EDT Brigitte Boone MD LAB BLOOD ORDERABLES Final Re sult [facility] [address] [phone] * (ABNORMAL) CBC - Hemogram (SJ-BKR) (10/11/2024 6:21 AM EDT) WBC 6.9 3.9 - 10.0 K/ L 10/11/2024 6:36 AM EDT [facility] RBC 4.62 3.93 - 6.08 M/ L 10/11/2024 6:36 AM EDT [facility] Hemoglobin 13.9 11.2 - 15.7 GM/DL 10/11/2024 6:36 AM EDT [facility] Hematocrit 42.0 34.1 - 44.9 % 10/11/2024 6:36 AM EDT [facility] MCV 91 79 - 95 fL 10/11/2024 6:36 AM EDT [facility] MCH 30.1 25.6 - 32.2 pg 10/11/2024 6:36 AM EDT [facility] MCHC 33.1 32.2 - 36.5 GM/DL 10/11/2024 6:36 AM EDT [facility] RDW 13.1 11.6 - 14.4 % 10/11/2024 6:36 AM EDT [facility] Platelets 263 163 - 369 K/CU MM 10/11/2024 6:36 AM EDT [facility] MPV 9.3(L) 9.4 - 12.4 fL 10/11/2024 6:36 AM EDT [facility] nRBC 0(L) 1 - 5 /100 WBC 10/11/2024 6:36 AM EDT [facility] Blood Venipuncture / Unknown 10/11/2024 6:21 AM EDT 10/11/2024 6:28 AM EDT us Brigitte Boone MD LAB BLOOD ORDERABLES Final Re sult [facility] [address] [phone] * (ABNORMAL) Glucose, Nova Meter (10/11/2024 5:59 AM EDT) POC-GLUCOSE 132(H) 70 - 110 mg/dL 10/11/2024 6:02 AM EDT [facility] Comment: In the event of poor peripheral blood flow, venous or arterial blood should be used due to the potential of erroneous results. Notified Nurse RBV Traffic Operations Manager [phone] 10/11/2024 6:02 AM EDT [facility] Blood WHOLE BLOOD / Unknown 10/11/2024 5:59 AM EDT 10/11/2024 6:02 AM EDT Narrative [facility] - 10/11/2024 6:02 AM EDT Traffic Operations Manager ID is - [id number] us Brigitte Boone MD POINT OF CARE TEST ORDERABLES Final Result Performing Organization Address [facility] Co de Phone Number [facility] [address] [phone] * (ABNORMAL) Glucose, Nova Meter (10/10/2024 8:57 PM EDT) Pathologist [facility] POC-GLUCOSE 240(H) 70 - 110 mg/dL 10/10/2024 8:58 PM EDT [facility] Comment: In the event of poor peripheral blood flow, venous or arterial blood should be used due to the potential of erroneous results. Notified Nurse RBV Traffic Operations Manager [phone] 10/10/2024 8:58 PM EDT [facility] Blood WHOLE BLOOD / Unknown 10/10/2024 8:57 PM EDT 10/10/2024 8:58 PM EDT Narrative [facility] - 10/10/2024 8:58 PM EDT Traffic Operations Manager ID is - [id number] us Brigitte Boone MD POINT OF CARE TEST ORDERABLES Final Result Performing Organization Address [facility]/ZIP Co de Phone Number [facility] [address] [phone] * (ABNORMAL) PROBNP (10/10/2024 7:06 PM EDT) [facility] ProBNP (pg/mL) 815(H) 0 - 450 pg/mL 10/10/2024 7:28 PM EDT [facility] Blood Venipuncture / Unknown 10/10/2024 7:06 PM EDT 10/10/2024 7:06 PM EDT Brigitte Boone MD LAB BLOOD ORDERABLES Final Re sult Performing Organization Address [facility]/ZIP Co de Phone Number [facility] [address] [phone] * Magnesium (10/10/2024 7:06 PM EDT) [facility] Magnesium 1.7 1.5 - 2.4 mg/dL 10/10/2024 7:28 PM EDT [facility] Blood Venipuncture / Unknown 10/10/2024 7:06 PM EDT 10/10/2024 7:06 PM EDT Brigitte Boone MD LAB BLOOD ORDERABLES Final Re sult Performing Organization Address City/[facility]/ZIP Co de Phone Number [facility] [address] [phone] * (ABNORMAL) Comprehensive metabolic panel (10/10/2024 7:06 PM EDT) [facility] Sodium 132(L) 136 - 146 meq/L 10/10/2024 7:28 PM EDT [facility] Potassium 3.9 3.5 - 5.1 meq/L 10/10/2024 7:28 PM EDT [facility] Chloride 96(L) 102 - 112 meq/L 10/10/2024 7:28 PM EDT [facility] CO2 32 21 - 32 meq/L 10/10/2024 7:28 PM EDT [facility] Calcium 9.0 8.5 - 10.1 mg/dL 10/10/2024 7:28 PM [facility] Glucose 305(H) 74 - 106 mg/dL 10/10/2024 7:28 PM [facility] BUN 23(H) 7 - 22 mg/dL 10/10/2024 7:28 PM [facility] Creatinine 1.68(H) 0.55 - 1.02 mg/dL 10/10/2024 7:28 PM [facility] BUN/Creatinine 14 8 - 20 10/10/2024 7:28 PM [facility] Albumin 3.2(L) 3.4 - 5.0 g/dL 10/10/2024 7:28 PM [facility] Alkaline Phosphatase 99 27 - 136 U/L 10/10/2024 7:28 PM [facility] ALT 25 12 - 78 U/L 10/10/2024 7:28 PM [facility] AST 27 5 - 37 U/L 10/10/2024 7:28 PM [facility] Total Bilirubin 0.4 0.2 - 1.3 mg/dL 10/10/2024 7:28 PM [facility] Protein, Total 7.1 6.4 - 8.2 gm/dL 10/10/2024 7:28 PM [facility] Anion Gap 8(L) 9 - 20 10/10/2024 7:28 PM [facility] A/G Ratio 0.8(L) 1.1 - 2.5 10/10/2024 7:28 PM [facility] Globulin 3.9 1.5 - 4.5 g/dL 10/10/2024 7:28 PM [facility] Osmolality Calc 279.7 mOsm/kg 7:28 PM [facility] eGFR (mL/min/1.73m2) 30(L) >=60 mL/min/1.7 3m2 10/10/2024 7:28 PM [facility] Comment:ESTIMATED GFR IS NOT ACCURATE CREATININE CLEARANCE IN PREDICTING GLOMERULAR FILTRATION RATE. ESTIMATED GFR IS NOT APPLICABLE FOR DIALYSIS PATIENTS. Blood Venipuncture / Unknown 10/10/2024 7:06 PM EDT 10/10/2024 7:06 PM EDT Brigitte Boone MD LAB BLOOD ORDERABLES Final Re sult Performing Organization Address [facility]/ZIP Co de Phone Number [facility] [address] [phone] * PT/INR, PTT (10/10/2024 7:06 PM EDT) aPTT 24.0 22.0 - 32.0 seconds 10/10/2024 7:23 PM EDT [facility] Protime 11.0 9.0 - 12.0 seconds 10/10/2024 7:23 PM EDT [facility] INR 1.01 0.80 - 1.10 10/10/2024 7:23 PM EDT [facility] Blood Venipuncture / Unknown 10/10/2024 7:06 PM EDT 10/10/2024 7:06 PM EDT Brigitte Boone MD LAB BLOOD ORDERABLES Final Re sult Performing Organization Address [facility] Co de Phone Number [facility] [address] [phone] * C-Reactive Protein (10/10/2024 7:06 PM EDT) CRP 0.60 0.00 - 0.90 mg/dL 10/10/2024 7:28 PM EDT [facility] Blood Venipuncture / Unknown 10/10/2024 7:06 PM EDT 10/10/2024 7:06 PM EDT Brigitte Boone MD LAB BLOOD ORDERABLES Final Re sult Performing Organization Address City/[facility]/ZIP Co de Phone Number [facility] [address] [place] [address], [facility] [phone] * Procalcitonin (10/10/2024 7:06 PM EDT) [facility] Procalcitonin <0.14 <=0.50 ng/mL 10/10/2024 7:38 PM EDT [facility] Comment: Sepsis comment <0.5 Antibiotics [...] MD LAB BLOOD ORDERABLES Final Re sult [facility] [address] [phone] * (ABNORMAL) Glucose, Nova Meter (10/10/2024 5:41 PM EDT) [facility] POC-GLUCOSE 345(H) 70 - 110 mg/dL 10/10/2024 5:42 PM EDT [facility] Comment: In the event of poor peripheral blood flow, venous or arterial blood should be used due to the potential of erroneous results. Notified Nurse RBV Traffic Operations Manager [phone] 10/10/2024 5:42 PM EDT [facility] Blood WHOLE BLOOD / Unknown 10/10/2024 5:41 PM EDT 10/10/2024 5:42 PM EDT Narrative [facility] - 10/10/2024 5:42 PM EDT Traffic Operations Manager ID is - [id number] us Osama Elsallabi MD POINT OF CARE TEST ORDERABLES Final Result [facility] [address] [place] [id number], [facility] [phone] documented in this encounter Visit Diagnoses Diagnosis [...] Blood Sugar is less than 180 between 4327-3359, DO NOT give corrective insulin unless otherwise [...] at 1930 0842 (Given - Provider: Yelena Davenport, RN) 1004 (Given - Provider: Carolina Jordan, RN) 1040 (Given - Provider: Carolina Jordan, RN) cefTRIAXone (ROCEPHIN) IVPB 2 g in dextrose [...] 2322 (Given - Provider: Lana Thomas RN) 2215 (Given - Provider: Mary Desai, MARIXA) insulin glargine-yfgn (SEMGLEE) solution 20 Units 20 Units Every Night, subcutaneous, First dose on Wed10/10/24 at 2100 215 (Given - Provider: Lana Thomas RN) 2153 (Given - Provider: Mary Desai, RN) insulin glargine-yfgn (SEMGLEE) solution 20 Units 20 Units Every morning, subcutaneous, First dose on Wed10/14/24 at 0600 0622 (Given - Provider: Mary Desai, RN) insulin lispro (HUMALOG, ADMELOG) injection 0-6 Units 0-6 Units 4 times daily (before meals and nightly), subcutaneous, First dose on Wed10/10/24 at 1730, If Blood Sugar is less than 180 between 2599-0347, DO NOT give corrective insulin unless otherwise [...] Davenport RN)2153 (Given - Provider: Lana Thomas, RN) 0545 (Given - Provider: Lana Thomas RN)0756 (Not Given - Provider: Carolina Jordan RN - Reason: Duplicate Order)1217 (Given - Provider: Carolina Jordan RN)1624 (Given - Provider: Carolina Jordan, MARIXA)2154 (Given - Provider: Mary Desai RN) 0634 (Given - Provider: Mary Desai RN)1250 (Given - Provider: Carolina Jordan, MARIXA) miconazole (MICOTIN) 2 % powder topical, 2 times daily, First dose on Wed10/11/24 at 2300 0845 (Given - Provider: Yelena Davenport RN)2152 (Given - Provider: Lana Thomas RN) 1137 (Not Given - Provider: Carolina Jordan RN - Reason: Medication/ Dose Unavailable)2154 (Given - Provider: Mary Desai RN) 1041 (Given - Provider: Carolina Jordan, MARIXA) PRN Medication Order 10/12/2024 10/13/2024 10/14/2024 acetaminophen (TYLENOL) tablet 1,000 mg 1,000 mg Every 6 hours PRN, oral, fever greater than or equal to 38C, Starting on Wed10/10/24 at 1646, Recommended maximum dose of acetaminophen is 4000 mg from all sources in 24 hours 1624 (Given - Provider: Carolina Jordan, RN) 1508 (Given - Provider: Carolina Jordan, RN) albuterol 2.5 mg /3 mL (0.083 [...] at 1911 1605 (Given - Provider: Yelena Davenport RN) 1450 (Given - Provider: Carolina Jordan, MARIXA)2153 (Given - Provider: Mary Desai RN) 1041 (Given - Provider: Carolina Jordan, MARIXA) [...] Insert Peripheral IV (CANCELED) STAT, Once, On e 10/10/24 at 1646, For 1 occurrence And Saline [...] documented as of this encounter Care Teams Metal Fabricator Relationship Specialty Start Date End Date Roe Norma Sue, QUARTER LINING SMOOTHER [address] [place] [address] PCP - General Nurse Practitioner 08/23/24 documented as of this encounter
--- OUTSIDE RECORDS SUMMARY | 2024-10-11 13:53 | XMS_ITS | Encounter Summary ---
Author Organization [employer] ([place], [place], [place], [place]) Address [address] [place] [address] Care Team Providers Care Clinical Rehabilitation Liaison Name Role Phone Norma Au APRN Primary Care Provider [phone] Reason for Visit * Auth/Cert (Routine) Specialty Diagnoses / Procedures Referred By Contac t Referred To Contact Diagnoses Joint infection (HCC) Post op infection POST OP INFECTION [facility] Telemetry Unit [address] [place] [address] Phone: tel: fax: [facility] Telemetry Unit [address] [place] [address] Phone: tel: fax: Referral ID Status Reason Start Date Expiration Date Visits Re quested Visits Authorized [id number] 1 1 Encounter Details Date Type Department Care Team (Late st Contact Info) Description 10/11/2024 1:53 PM EDT Anesthesia Event [facility] Surgery Department [address] [place] [address] Patricia Dumont CRNA [address] [place] [address] Anesthesia Record Procedure Summary Procedure Name Responsible Anesthesiologist Anesthesia Start Time Anesthesia Stop Time IRRIGATION AND DEBRIDEMENT, SUBCUTANEOUS TISSUE, SKIN, WITH JOINT ASPIRATION AND CLOSURE, POST TOTAL KNEE REPLACEMENT (Right: Knee) Patricia Dumont CRNA 10/11/24 1353 10/11/24 1549 Events Date Time Event Comment 10/11/2024 1353 An Start Patient identif ied and chart reviewed. 1353 An Start Data Anesthesia mac cecil and monitors checked. 1353 Pre-Induction Eval FDA anest hesia machine pre-use checkout completed. Patient status reassessed prior to start of anesthesia care. 1359 An Induction 1402 An Intubation 1406 Anesthesia Ready 1427 An Tourn Inflated 300mmHg 1527 An Tourn Deflated 1530 An Extubation 1539 an stop data 1549 An Stop Meds Name Total fentaNYL (SUBLIMAZE) injection 100 mcg lidocaine (XYLOCAINE) injection 2% 100 m g propofol (DIPRIVAN) injection 10 mg/mL b olus 200 mg rocuronium (ZEMURON) 100 mg/10 mL inject ion 30 mg dexamethasone (PF) injection 10 mg/mL 8 mg ondansetron (ZOFRAN) injection vial 4 mg neostigmine (PROSTIGMINE) 1 mg/mL inject ion 2 mg glycopyrrolate (ROBINUL) injection 0.4 m g clindamycin (CLEOCIN) IVPB 900 mg in dex trose 5 % 50 mL (premix) 900 mg tranexamic acid in NaCl,iso-os 1,000 mg/ 100 mL (10 mg/mL) IVPB 1,000 mg 1,000 mg tranexamic acid in NaCl,iso-os 1,000 mg/ 100 mL (10 mg/mL) IVPB 1,000 mg 1,000 mg ceFAZolin (ANCEF) IVPB 2 g/50 mL D5W (pr emix) 2 g electrolyte (PLASMA-LYTE/NORMOSOL) infus ion 290 mL * Agents Name O2 N2O Air SEVOFLURANE * Blood No blood administrations on file. Lines, Drains, and Airways Type Details Placement Removal Wound 08/23/24; 1047; Inci dimitry; Knee; Right; Cold Therapy Pad Applied 08/23/24 1047 by Ramesh Bermeo RN Wound 08/23/24; 1715; Leg upper; Anterior, Left, Proximal 08/23/24 1715 by Ministerio Ty RN Wound 10/11/24; 1504; Inci dimitry; Leg; Right; Cold therapy and immobilizer applied to right knee. 10/11/24 1504 by Marcelina Rodriguez RN Peripheral IV Size: 22 G; Orientat ion: Anterior, Left; Location: Forearm; Securement Method: Taped; Removal Date: 10/12/24; Removal Time: 2029; Removal Reason: Infiltrated 10/11/24 1233 by 10/12/242029 by Lana Thomas RN Wound 10/10/24; 1935; Skin tear; Ankle; Anterior, Right; 10/12/24; 193; Healed 10/10/241935 by Tee Snow 10/12/241934 by Lana Thomas RN ETT Placement Date 10/11; Placement Time 140 (created via procedure documentation); Airway Size 7; Airway Cuffed Yes; Removal Date 10/11/24; Removal Time 1530 10/11/24 1402 by Patricia Dumont CRNA 10/11/24 153 by Abelardo Chong CRNA documented in this encounter Social History [...] have a [facility] place to live 10/10/2024 Think about the [...] Do you speak a language other than [place] [facility]? 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 Ht 1.6 m (5' 2.99 ) Wt 110.6 kg (243 lb 13.3 oz) BMI 43.20 kg/m?? Anesthesia Post Evaluation Patient location during evaluation: bedside Patient participation: complete - patient cannot participate Level of consciousness: responsive to verbal stimuli Airway patency: patent Cardiovascular status: stable Respiratory status: spontaneous ventilation and face mask Hydration status: stable No notable events documented. Abelardo Chong CRNA 10/11/2024 3:48 PM EDT * Anesthesia Procedure Notes - Patricia Dumont CRNA - 10/11/2024 2:18 PM EDT Associated Order(s): Intubation Intubation Authorized by: Patricia Dumont CRNA Performed by: Patricia Dumont CRNA Date/Time: 10/11/2024 2:02 PM Urgency: elective Indications and Patient Condition Indications for airway management: anesthesia and airway protection Spontaneous Ventilation: absent Sedation level: general anesthesia Preoxygenated: yes Patient position: sniffing no Mask difficulty assessment: 1 - vent by mask no Final Airway Details Final airway type: endotracheal airway Endotracheal tube type: ETT Cuffed: yes Successful intubation technique: direct laryngoscopy Facilitating devices/methods: intubating stylet Endotracheal tube insertion site: oral Blade: Rg Blade size: #3 ETT size (mm): 7.0 Cormack-Lehane Classification: grade I - full view of glottis Placement verified by: chest auscultation and capnometry Cuff volume (mL): 8 Measured from: teeth ETT to teeth (cm): 21 Number of attempts at approach: 1 Number of other approaches attempted: 0 * Anesthesia Preprocedure Evaluation - Wolf Hayes MD - 10/11/2024 12:17 PM EDT ANESTHESIA PREOPERATIVE EVALUATION Patient: Denisa Sanon Date/Time: 10/11/245 Procedure: IRRIGATION AND DEBRIDEMENT, KNEE, WITH POLYETHYLENE LINER REPLACEMENT (Right) Location: [facility] OPERATING ROOM Surgeons: Kiran Olmos MD Vitals: 10/11/24 0910 10/11/24 0925 10/11/24 1120 10/11/24 1208 BP: (!) 153/62 (!) 150/57 (!) 149/63 Pulse: 76 76 72 Resp: 18 18 Temp: 97.9 ??F (36.6 ??C) 97.9 ??F (36.6 ??C) 97.4 ??F (36.3 ??C) TempSrc: Temporal Artery SpO2: 93% 92% 91% 92% Weight: Height: Allergies Allergen Reactions Codeine Hives Can't remember Latex Dermatitis Patient can't remember Penicillin Hives Byetta [Exenatide] Can't remember Cephalosporins Patient can't remember-given in OR 08/24/24. No reaction reported. Doxycycline Patient can't remember Glyburide Patient can't remember Levaquin [Levofloxacin] Patient can't remember Levbid [Hyoscyamine Sulfate] Patient can't remember Oxycodone Can't remember Percodan [Oxycodone-Aspirin] Patient can't remember Sulfa (Sulfonamide Antibiotics) Patient can't remember Current Outpatient Medications Medication Instructions acetaminophen (TYLENOL) [...] 3 times daily ondansetron (ZOFRAN) 4 mg, Every 8 hours PRN OXYGEN-AIR DELIVERY SYSTEMS MISC 2 liter at night time. . spironolactone (ALDACTONE) 25 mg, Daily torsemide (DEMADEX) 100 MG tablet 0.5 tablets, Daily traMADoL (ULTRAM) 50 mg, Every 6 hours PRN INPATIENT MEDICATIONS [Transfer Hold] allopurinoL 100 mg oral Daily 100 mg at 10/11/24 0924 ceFAZolin 2 g intravenous Once [Transfer Hold] cefTRIAXone 2 g intravenous Q24H clindamycin 900 mg intravenous Once [Transfer Hold] DAPTOmycin 700 mg intravenous Q24H [Transfer Hold] insulin glargine 20 Units subcutaneous Every Night [Transfer Hold] insulin lispro 0-6 Units subcutaneous 4x Daily AC 5 Units at 10/10/24 1854 pregabalin 150 mg oral Once tranexamic 1,000 mg intravenous Once tranexamic 1,000 mg intravenous Once Problem List as of 10/11/2024 Cardiovascular and Mediastinum CAD (coronary artery disease) HTN (hypertension) Respiratory Asthma Chronic hypoxic respiratory failure (HCC) COPD (chronic obstructive pulmonary disease) (HCC) MARCELA (obstructive sleep apnea) Endocrine DM (diabetes mellitus) (HCC) Musculoskeletal and Integument Osteoarthritis, knee * (Principal) Joint infection (HCC) Genitourinary CKD (chronic kidney disease) Other Hyperlipemia Obesity, morbid, BMI 40.0-49.9 (HCC) Post op infection Past Surgical History: Procedure Laterality Date APPENDECTOMY ARTHROPLASTY,KNEE UNILATERAL Right 08/23/2024 Procedure: RIGHT TOTAL KNEE ARTHROPLASTY; Surgeon: Kiran Olmos MD; Location: [facility]; Service: Orthopedic Surgery; Laterality: Right; Slight Bruising noted at site of bovie pad removal, Left thigh CARDIAC CATHETERIZATION GALLBLADDER SURGERY HYSTERECTOMY Procedure on Brain Mass removed. TONSILLECTOMY Social History Tobacco Use Smoking status: Former Types: Cigarettes Smokeless tobacco: Never Tobacco comments: Patient was a 3 ppd smoker x 20 years. Stopped smoking in Substance Use Topics Alcohol use: Never Drug use: Never Echo Results (last 7 days) No results found for the last 168 hours. AST ECHO: 08/11/2022 EJECTION FRACTION IS 50 55%. THERE IS MILD LVH. THERE IS ABNORMAL SEPTAL WALL MOTION. MODERATE AORTIC ROOT DILATION MEASURING 4.3 CM LAST HEART CATH: 07/28/2019 LHC AND RHC. MILD CORONARY ARTERY DISEASE. Chemistry Component Value Date/Time NA 137 10/11/2024 0621 K 3.8 10/11/2024 0621 CL 101 (L) 10/11/2024 0621 CO2 33 (H) 10/11/2024 0621 BUN 26 (H) 10/11/2024 0621 CREATININE 1.52 (H) 10/11/2024 0621 Component Value Date/Time CALCIUM 9.1 10/11/2024 0621 ALKPHOS 99 10/10/2024 1906 AST 27 10/10/2024 1906 ALT 25 10/10/2024 1906 BILITOT 0.4 10/10/2024 1906 Lab Results Component Value Date WBC 6.9 10/11/2024 HGB 13.9 10/11/2024 HCT 42.0 10/11/2024 MCV 91 10/11/2024 PLT 263 10/11/2024 Clinical information reviewed: Tobacco Allergies Meds Med Hx Surg Hx Fam Hx Date of last liquid: 10/10/24 Time of last liquid: 1730 Date of last solid: 10/10/24 Time of last solid: 1729 Physical Exam Airway Mallampati: III Cardiovascular Rhythm: regular Rate: normal Dental (+) upper dentures, lower dentures Pulmonary - normal exam Abdominal - normal exam Other findings: S/p TKA 08/23/24 with LMA 4 Edentulous Gerd is controlled Anesthesia Plan ASA 3 general The patient is not a current smoker. intravenous induction Anesthetic plan and risks discussed with patient. Plan discussed with PRACTICE SPECIALIST. documented in this encounter Plan of Treatment Not on file documented as of this encounter Procedures Procedure Name Priority Date/Time Associated Diagnosis Comments ANESTHESIA INTUBATION Routine 10/11/2024 2:02 PM EDT documented in this encounter Results * AN SINGLE LUMEN INTUBATION (10/11/2024 2:02 PM EDT) Patricia Purdy CRNA - 10/11/2024 2:02 PM EDT Patricia Dumont CRNA 10/11/2024 2:19 PM Intubation Authorized by: Patricia Dumont CRNA Performed by: Patricia Dumont CRNA Date/Time: 10/11/2024 2:02 PM Urgency: elective Indications and Patient Condition Indications for airway management: anesthesia and airway protection Spontaneous Ventilation: absent Sedation level: general anesthesia Preoxygenated: yes Patient position: sniffing no Mask difficulty assessment: 1 - vent by mask no Final Airway Details Final airway type: endotracheal airway Endotracheal tube type: ETT Cuffed: yes Successful intubation technique: direct laryngoscopy Facilitating devices/methods: intubating stylet Endotracheal tube insertion site: oral Blade: Rg Blade size: #3 ETT size (mm): 7.0 Cormack-Lehane Classification: grade I - full view of glottis Placement verified by: chest auscultation and capnometry Cuff volume (mL): 8 Measured from: teeth ETT to teeth (cm): 21 Number of attempts at approach: 1 Number of other approaches attempted: 0 Patricia Dumont CRNA ANESTHESIA ORDERABLES Final R esult documented in this encounter Visit Diagnoses Not on filedocumented in this encounter Administered Medications Inactive Administered Medications - up to 3 most recent administrations Medication Order MAR Action Action Date Dose Rate Site ceFAZolin (ANCEF) IVPB 2 g/50 mL D5W (premix) 2 g Once, intravenous, Administer over 30 Minutes, On Wed10/11/24 at 1230, For 1 dose, Administer within 60 minutes of incision or procedure start., Pre-op, Please choose an indication: Surgical Prophylaxis Given 10/11/2024 2:16 PM EDT 2 g clindamycin (CLEOCIN) IVPB 900 mg in dextrose 5 % 50 mL (premix) 900 mg Once, intravenous, Administer over 60 Minutes, On Wed10/11/24 at 1230, For 1 dose, Administer within 60 minutes of incision., Pre-op, Please choose an indication: Surgical Prophylaxis Given 10/11/2024 2:04 PM EDT 900 mg dexAMETHasone PF injection As needed, intravenous, Starting on Wed10/11/24 at 1359, Anesthesia Intra-op Given 10/11/2024 1:59 PM EDT 8 mg electrolyte-R (NORMOSOL-R) infusion intravenous, Continuous PRN, Starting on Wed10/11/24 at 1353, Anesthesia Intra-op New Bag 10/11/2024 1:53 PM EDT 150 mL/hr 150 mL/hr fentaNYL PF (SUBLIMAZE) injection As needed, intravenous, Starting on Wed10/11/24 at 1459, Anesthesia Intra-op Given 10/11/2024 3:15 PM EDT 25 mcg Given 10/11/2024 3:11 PM EDT 25 mcg Given 10/11/2024 2:59 PM EDT 25 mcg glycopyrrolate (ROBINUL) injection As needed, intravenous, Starting on Wed10/11/24 at 1439, Anesthesia Intra-op Given 10/11/2024 2:39 PM EDT 0.4 mg lidocaine (XYLOCAINE) injection 2% As needed, intravenous, Starting on Wed10/11/24 at 1359, Anesthesia Intra-op Given 10/11/2024 1:59 PM EDT 100 mg neostigmine methylsulfate (PROSTIGMINE) injection As needed, intravenous, Starting on Wed10/11/24 at 1439, Anesthesia Intra-op Given 10/11/2024 2:39 PM EDT 2 mg ondansetron (ZOFRAN) injection As needed, intravenous, Starting on Wed10/11/24 at 1447, Anesthesia Intra-op Given 10/11/2024 2:47 PM EDT 4 mg propofol (DIPRIVAN) injection 10 mg/mL bolus As needed, intravenous, Starting on Wed10/11/24 at 1359, Anesthesia Intra-op Given 10/11/2024 1:59 PM EDT 200 mg rocuronium (ZEMURON) injection As needed, intravenous, Starting on Wed10/11/24 at 1359, Anesthesia Intra-op Given 10/11/2024 1:59 PM EDT 30 mg tranexamic acid in NaCl,iso-os 1,000 mg/100 mL (10 mg/mL) IVPB 1,000 mg 1,000 mg Once, intravenous, On Wed10/11/24 at 1230, For 1 dose, Infuse at a maximum rate of 100 mg/minute. Administer immediately preop for surgical prophylaxis: Orthopedic, Pre-op Given 10/11/2024 2:46 PM EDT 1,000 mg tranexamic acid in NaCl,iso-os 1,000 mg/100 mL (10 mg/mL) IVPB 1,000 mg 1,000 mg Once, intravenous, On Wed10/11/24 at 1230, For 1 dose, Administer over 10 Minutes. Administer Intraprocedure. To be given at beginning of wound closure if Surgeon determines necessary. For surgical prophylaxis: Orthopedic, Pre-op Given 10/11/2024 2:13 PM EDT 1,000 mg documented in this encounter Care Teams Clinical Rehabilitation Liaison Relationship Specialty Start Date End Date Roe Norma Sue, IMPORT MANAGER [address] [facility] [address] [place] [address] PCP - General Nurse Practitioner 08/23/24 documented as of this encounter
--- OUTSIDE RECORDS SUMMARY | 2024-10-11 14:35 | XMS_ITS | Encounter Summary ---
Author Organization [facility] ([place], [place], [place], [place]) Address [address] [place] [address] Care Team Providers [facility] [employer] Name Role Phone Norma Au APRN Primary Care Provider [phone] Reason for Visit * Auth/Cert (Routine) Specialty Diagnoses / Procedures Referred By Contac t Referred To Contact Diagnoses Joint infection (HCC) Post op infection POST OP INFECTION [facility] Telemetry Unit [address] [place] [address] Phone: tel: fax: [facility] Telemetry Unit [address] [place] [address] Phone: tel: fax: Referral ID Status Reason Start Date Expiration Date Visits Re quested Visits Authorized [id number] 1 1 Encounter Details Date Type Department Care Team (Late st Contact Info) Description 10/11/2024 2:35 PM EDT - 10/11/2024 4:42 PM EDT Surgery [facility] Surgery Department [address] [place] [address] Wilfrido Stafford MD [address] 2nd [place] [address] IRRIGATION AND DEBRIDEMENT, SUBCUTANEOUS TISSUE, SKIN, WITH JOINT ASPIRATION AND CLOSURE, POST TOTAL KNEE REPLACEMENT Social History Tobacco Use Types Packs/Day Years [...] your living situation today? I have a [facility] place to live 10/10/2024 Think about [...] Do you speak a language other than [place] at [facility]? No 10/10/2024 Do you want help [...] Sign Reading Time Taken Comments Blood Pressure 154/67 10/11/2024 4:30 PM EDT Pulse 61 10/11/2024 4:30 PM EDT Temperature 36.3 C (97.3 F) 10/11/2024 4:30 PM EDT Respiratory Rate 16 10/11/2024 4:30 PM EDT Oxygen Saturation 97% 10/11/2024 4:30 PM EDT Inhaled Oxygen Concentration 28% 10/11/2024 3 :07 AM EDT Weight 110.6 kg (243 lb [...] obstructive sleep apnea, she was sent from [facility] for postoperative infection, status post right [...] level- labs need to be faxed to [facility] at [phone] 3. Weekly PICC line dressing changes 4. Follow up in my clinic on 10/25/24. Clinic to call with the appointment time 5. Please fax a copy of my orders to [phone] and call [phone] with final discharge plans Studies Performed: Procedures [...] Your Medications These medications were sent to [facility] - [place], [place] - [address], [facility] [address] traMADoL 50 mg tablet Physical Exam BP (!) 145/62 Pulse 65 Temp 97.3 ??F (36.3 ??C) Resp 22 Ht 1.6 m (5' 2.99 ) Wt 110.6 kg (243 lb 13.3 oz) SpO2 96% BMI 43.20 kg/m?? Discharge Instructions Discharge Diet: Discharge Activity: Discharge Follow UP: Contact information for follow-up Wilfrido Stafford MD Specialty: Orthopedic Surgery [address] 2nd floor [facility] [address] Next Steps: Follow up in 3 day(s) David Bernal MD Specialty: General Surgery, Bariatric Surgery [address] [place] [address] [facility] [address] Next Steps: Follow up in 1 week(s) Time Spent: 33 min Electronically signed by Brigitte Boone MD, 10/14/24, 11:54 AM EDT documented in this encounter Discharge Instructions * Attachments The following attachments cannot be sent through Care Everywhere. * Prosthetic Joint Infection (Paraguayan) * Arthritis Devg-nj-Naip (Paraguayan) * Arthritis (Paraguayan) * Septic Arthritis (Paraguayan) documented in this encounter Medications at Time [...] that patient discharged over the weekend to [facility]. HARMONY left call back numberif needed. Scoorro Flores RN * Sean Olmedo, PT - 10/14/2024 2:02 PM EDT Images [...] in room or performing service/recovery/patient satisfaction activities [phone] Electronically signed by Sean Olmedo PT - [...] Agency Type SNF SNF Name and Number [facility] [phone] Per previous rn field case manager tommy Bailon was approved yesterday and was just waiting on final antibiotic plan for discharge. CM received consult this morning with antibiotic plan and faxed to [facility]. HARMONY spoke with MARIXA Velasquez at facility and she confirms receiving faxed order and states that patient can admit today. DC summary to be faxed to [phone]. Number forreport is [phone]. CM faxed copy of antibiotic order/plan to [facility] office as ordered to [phone]. Family to transport. Packet in chart. CM updated nurse and provider. CM faxed dc summary to [phone]. Provided fax number to nurse also in case facility reports notreceiving. Requested nurse to place copy of dc summary and recent notes in packet to send with patient. * Socorro Flores RN - 10/14/2024 10:28 AM EDT HARMONY left a message for Marcie with [facility] at 0940 this morning, requested a return call to discuss discharge today, no call back at this time. HARMONY called facility directly and spoke with Eva. Updated that precert is approved but was waiting on final IV antibiotic plan and advised that is now ordered. HARMONY faxed antibiotic orders and updated notes to facility at [phone]. Requested for Eva to call back after [...] and diabetes mellitus who was sent from [facility] yesterday for postoperative infection status [...] KNEE ARTHROPLASTY; Surgeon: Wilfrido Stafford MD; Location: [facility] OR; Service: Orthopedic Surgery; Laterality: Right; Slight Bruising noted at site of bovie pad removal, Left thigh CARDIAC CATHETERIZATION GALLBLADDER SURGERY HYSTERECTOMY I&D,ABSCESS LEG Right 10/11/2024 Procedure: IRRIGATION AND DEBRIDEMENT, SUBCUTANEOUS TISSUE, SKIN, WITH JOINT ASPIRATION AND CLOSURE, POST TOTAL KNEE REPLACEMENT; Surgeon: Wilfrido Stafford MD; Location: [facility] OR; Service: Orthopedic Surgery; Laterality: Right; Procedure [...] Component Value Units Date/Time Tissue Culture+ Stain [[id number]] (Abnormal) Collected: 10/11/24 1430 Order Status: Completed Specimen: Tissue from Knee, Right Updated: 10/13/24 1323 Result Light Growth Staphylococcus aureus Gram Stain Result No organisms seen No cells seen Narrative: Specimen Description: Right Knee Synovium #1 Tissue Culture+ Stain [[id number]] (Abnormal) Collected: 10/11/24 1431 Order Status: Completed Specimen: Tissue from Knee, Right Updated: 10/13/24 1030 Result Light Growth Staphylococcus aureus Gram Stain Result Rare gram positive cocci in pairs and clusters Rare WBCs Rare epithelial cells Narrative: Specimen Description: Right Knee Synovium #2 Blood Culture [[id number]] Collected: 10/11/24 0628 Order Status: Completed Specimen: Blood Updated: 10/13/24 0800 Result No growth in 48 hours AFB Culture And Stain [[id number]] Collected: 10/11/241429 Order Status: Completed Specimen: Tissue from Knee, Right Updated: 10/12/24 1416 AFB Smear No acid fast bacilli seen Narrative: Specimen Description: Right Knee Synovium #1 AFB Culture And Stain [[id number]] Collected: 10/11/241430 Order Status: Completed Specimen: Tissue from Knee, Right Updated: 10/12/24 1416 AFB Smear No acid fast bacilli seen Narrative: Specimen Description: Right Knee Synovium #2 AFB Culture And Stain [[id number]] Collected: 10/11/241430 Order Status: Completed Specimen: Tissue from Knee, Right Updated: 10/12/24 1416 AFB Smear No acid fast bacilli seen Narrative: Specimen Description: Right Knee Synovium #3 Anaerobic Culture, Extended (P.acnes) [[id number]] Collected: 10/11/241430 Order Status: Completed Specimen: Tissue from Knee, Right Updated: 10/12/24 0828 Result Culture in progress Narrative: Specimen Description: Right Knee Synovium #3 Anaerobic Culture, Extended (P.acnes) [[id number]] Collected: 10/11/241430 Order Status: Completed Specimen: Tissue from Knee, Right Updated: 10/12/24 0827 Result Culture in progress Narrative: Specimen Description: Right Knee Synovium #2 Anaerobic Culture, Extended (P.acnes) [[id number]] Collected: 10/11/241429 Order Status: Completed Specimen: Tissue from Knee, Right Updated: 10/12/24 0827 Result Culture in progress Narrative: Specimen Description: Right Knee Synovium #1 Tissue Culture+ Stain [[id number]] Collected: 10/11/241430 Order Status: Completed Specimen: Tissue from Knee, Right Updated: 10/12/24 0644 Result Culture in progress Gram Stain Result Few gram positive cocci in pairs and clusters Few WBCs Few epithelial cells Narrative: Specimen Description: Right Knee Synovium #3 Fungus Culture W/ERUM Or Alma Ink [[id number]] Collected: 10/11/241429 Order Status: Completed Specimen: Tissue from Knee, Right Updated: 10/11/242023 ERUM Prep No fungal elements seen Narrative: Specimen Description: Right Knee Synovium #1 Fungus Culture W/ERUM Or Alma Ink [[id number]] Collected: 10/11/241430 Order Status: Completed Specimen: Tissue from Knee, Right Updated: 10/11/242023 ERUM Prep No fungal elements seen Narrative: Specimen Description: Right Knee Synovium #2 Fungus Culture W/ERUM Or Alma Ink [[id number]] Collected: 10/11/241430 Order Status: Completed Specimen: Tissue from Knee, Right Updated: 10/11/242023 ERUM Prep No fungal elements seen Narrative: Specimen Description: Right Knee Synovium #3 Body fluid cell count with differential [[id number]] (Abnormal) Collected: 10/11/241432 Order Status: Completed Specimen: [...] fluids are not defined. DIFFERENTIAL, BODY FLUID [[id number]] Collected: 10/11/241432 Order Status: Completed Specimen: Synovial Fluid from Body Fluid Updated: 10/11/241514 Neutrophils Fluid 67 % Lymphocytes Fluid 10 % Monocytes Fluid 14 % EOSINOPHILS 9 Anaerobic Culture [[id number]] Collected: 10/11/241430 Order Status: Sent Specimen: Tissue from Knee, Right Anaerobic Culture [[id number]] Collected: 10/11/241430 Order Status: Sent Specimen: Tissue from Knee, Right Anaerobic Culture [[id number]] Collected: 10/11/241429 Order Status: Sent Specimen: Tissue from Knee, Right Blood Culture [[id number]] Order Status: Sent Specimen: Blood Radiology: Radiology [...] level- labs need to be faxed to [facility] at [phone] Weekly PICC line dressing changes Follow up in my clinic on 10/25/24. Clinic to call with the appointment time Please fax a copy of my orders to [phone] and call [phone] with final discharge plans I discussed with [...] POC-GLUCOSE 291 (H) 70 - 110 mg/dL D[employer] P[employer]ader [id number] Glucose, Nova Meter Status: Abnormal Collection Time: 10/12/24 8:41 PM Result Value Ref Range POC-GLUCOSE 277 (H) 70 - 110 mg/dL Dressed P[employer] Grader [id number] Glucose, Nova Meter Status: Abnormal Collection Time: 10/13/24 5:33 AM Result Value Ref Range POC-GLUCOSE 248 (H) 70 - 110 mg/dL Dressed Poultry Grader [id number] Glucose, Nova Meter Status: Abnormal Collection Time: 10/13/24 11:10 AM Result Value Ref Range POC-GLUCOSE 275 (H) 70 - 110 mg/dL D[employer] [id number] CT lower extremity without IV contrast right [...] intact Assessment Plan Set to return to snf tomorrow PICC line has been placed antibiotics being arranged waitingfor final cultures she seems to be responding well she will need to follow-up with [facility] in the [place] office on Wednesday10/17/2024 at 10:[address] Stafford Discharge Planning: * Uvaldo Hadley RN - 10/13/2024 2:49 PM EDT Discharge Plan Progress Note On license of [facility] Discharge Review Discharge Review: Anticipated Discharge Date: 10/14/24 Patient/Surrogate/Designated Caregiver Discharge Disposition Goal: SNF Anticipated Discharge Plan: SNF Discharge Barriers/Clinical Progression(Medical, SDOH, Disposition Barriers): precert pending for [facility]; final IV abx plan Efforts to address [...] discharge needsduring acute hospitalization. Precert pending for [facility]. Packet created and placed in chart incase she discharges over the weekend. Number for report will be [phone]. [place] [facility] [place]. DC summary will need to be faxed to [phone]. Pt confirmed family to transport on discharge [...] POC-GLUCOSE 291 (H) 70 - 110 mg/dL Dressed Poultry Grader [id number] Glucose, Nova Meter Status: Abnormal Collection Time: 10/12/24 8:41 PM Result Value Ref Range POC-GLUCOSE 277 (H) 70 - 110 mg/dL Dressed Poultry Grader [id number] Glucose, Nova Meter Status: Abnormal Collection Time: 10/13/24 5:33 AM Result Value Ref Range POC-GLUCOSE 248 (H) 70 - 110 mg/dL Dressed Poultry Grader [id number] Glucose, Nova Meter Status: Abnormal Collection Time: 10/13/24 11:10 AM Result Value Ref Range POC-GLUCOSE 275 (H) 70 - 110 mg/dL Dressed P[employer] Grader [id number] CT lower extremity without IV contrast right [...] in interim. CAD Chronic LBBB -S/p [facility] 07/2019 with mild CAD. -Follow up with customer account representative per recommendations. CKD She states that she [...] and diabetes mellitus who was sent from [facility] yesterday for postoperative infection status [...] KNEE ARTHROPLASTY; Surgeon: Wilfrido Stafford MD; Location: [facility] OR; Service: Orthopedic Surgery; Laterality: Right; Slight Bruising noted at site of bovie pad removal, Left thigh CARDIAC CATHETERIZATION GALLBLADDER SURGERY HYSTERECTOMY I&D,ABSCESS LEG Right 10/11/2024 Procedure: IRRIGATION AND DEBRIDEMENT, SUBCUTANEOUS TISSUE, SKIN, WITH JOINT ASPIRATION AND CLOSURE, POST TOTAL KNEE REPLACEMENT; Surgeon: Wilfrido Satfford MD; Location: [facility] OR; Service: Orthopedic Surgery; Laterality: Right; Procedure [...] Component Value Units Date/Time Tissue Culture+ Stain [[id number]] (Abnormal) Collected: 10/11/241429 Order Status: Completed Specimen: Tissue from Knee, Right Updated: 10/13/24 1323 Result Light Growth Staphylococcus aureus Gram Stain Result No organisms seen No cells seen Narrative: Specimen Description: Right Knee Synovium #1 Tissue Culture+ Stain [[id number]] (Abnormal) Collected: 10/11/241430 Order Status: Completed Specimen: Tissue from Knee, Right Updated: 10/13/24 1030 Result Light Growth Staphylococcus aureus Gram Stain Result Rare gram positive cocci in pairs and clusters Rare WBCs Rare epithelial cells Narrative: Specimen Description: Right Knee Synovium #2 Blood Culture [[id number]] Collected: 10/11/24 0628 Order Status: Completed Specimen: Blood Updated: 10/13/24 0800 Result No growth in 48 hours AFB Culture And Stain [[id number]] Collected: 10/11/24 143 Order Status: Completed Specimen: Tissue from Knee, Right Updated: 10/12/24 1416 AFB Smear No acid fast bacilli seen Narrative: Specimen Description: Right Knee Synovium #1 AFB Culture And Stain [[id number]] Collected: 10/11/24 143 Order Status: Completed Specimen: Tissue from Knee, Right Updated: 10/12/24 1416 AFB Smear No acid fast bacilli seen Narrative: Specimen Description: Right Knee Synovium #2 AFB Culture And Stain [[id number]] Collected: 10/11/24 143 Order Status: Completed Specimen: Tissue from Knee, Right Updated: 10/12/24 141 AFB Smear No acid fast bacilli seen Narrative: Specimen Description: Right Knee Synovium #3 Anaerobic Culture, Extended (P.acnes) [[id number]] Collected: 10/11/241430 Order Status: Completed Specimen: Tissue from Knee, Right Updated: 10/12/24 0828 Result Culture in progress Narrative: Specimen Description: Right Knee Synovium #3 Anaerobic Culture, Extended (P.acnes) [[id number]] Collected: 10/11/241430 Order Status: Completed Specimen: Tissue from Knee, Right Updated: 10/12/24 0827 Result Culture in progress Narrative: Specimen Description: Right Knee Synovium #2 Anaerobic Culture, Extended (P.acnes) [[id number]] Collected: 10/11/241429 Order Status: Completed Specimen: Tissue from Knee, Right Updated: 10/12/24 0827 Result Culture in progress Narrative: Specimen Description: Right Knee Synovium #1 Tissue Culture+ Stain [[id number]] Collected: 10/11/241430 Order Status: Completed Specimen: Tissue from Knee, Right Updated: 10/12/24 0644 Result Culture in progress Gram Stain Result Few gram positive cocci in pairs and clusters Few WBCs Few epithelial cells Narrative: Specimen Description: Right Knee Synovium #3 Fungus Culture W/ERUM Or Alma Ink [[id number]] Collected: 10/11/241429 Order Status: Completed Specimen: Tissue from Knee, Right Updated: 10/11/242023 ERUM Prep No fungal elements seen Narrative: Specimen Description: Right Knee Synovium #1 Fungus Culture W/ERUM Or Alma Ink [[id number]] Collected: 10/11/241430 Order Status: Completed Specimen: Tissue from Knee, Right Updated: 10/11/242023 ERUM Prep No fungal elements seen Narrative: Specimen Description: Right Knee Synovium #2 Fungus Culture W/ERUM Or Alma Ink [[id number]] Collected: 10/11/241430 Order Status: Completed Specimen: Tissue from Knee, Right Updated: 10/11/242023 ERUM Prep No fungal elements seen Narrative: Specimen Description: Right Knee Synovium #3 Body fluid cell count with differential [[id number]] (Abnormal) Collected: 10/11/24 143 Order Status: Completed [...] fluids are not defined. DIFFERENTIAL, BODY FLUID [[id number]] Collected: 10/11/241432 Order Status: Completed Specimen: Synovial Fluid from Body Fluid Updated: 10/11/24 1515 Neutrophils Fluid 67 % Lymphocytes Fluid 10 % Monocytes Fluid 14 % EOSINOPHILS 9 Anaerobic Culture [[id number]] Collected: 10/11/241430 Order Status: Sent Specimen: Tissue from Knee, Right Anaerobic Culture [[id number]] Collected: 10/11/241430 Order Status: Sent Specimen: Tissue from Knee, Right Anaerobic Culture [[id number]] Collected: 10/11/241429 Order Status: Sent Specimen: Tissue from Knee, Right Blood Culture [[id number]] Order Status: Sent Specimen: Blood Radiology: Radiology [...] Treatment: 10/13/24 Start Time 0845 Stop Time 09 Session Duration 23 minutes CPT CODES: 50574 Gait training x 1, 91015 Therapeutic/functional activity x 1 General Visit Type: [...] Occupational Therapy Treatment Note Patient Name: Louie Sanno Date of : 1940 Date of Treatment: 10/13/24 Start Time: 844 Stop Time: 907 Session Duration: 23 minutes CPT CODES: 79930 ADL/self-care/home management x2 This patient is a [...] KNEE ARTHROPLASTY; Surgeon: Wilfrido Stafford MD; Location: [facility]; Service: Orthopedic Surgery; Laterality: Right; Slight Bruising noted at site of bovie pad removal, Left thigh CARDIAC CATHETERIZATION GALLBLADDER SURGERY HYSTERECTOMY I&D,ABSCESS LEG Right 10/11/2024 Procedure: IRRIGATION AND DEBRIDEMENT, SUBCUTANEOUS TISSUE, SKIN, WITH JOINT ASPIRATION AND CLOSURE, POST TOTAL KNEE REPLACEMENT; Surgeon: Wilfrido Stafford MD; Location: [facility]; Service: Orthopedic Surgery; Laterality: Right; Procedure on [...] using RW with modified independence. Target Date: 10/26/24 Goals were discussed with patient Progress towards [...] 4FRSingle Lumen Peripherally Inserted Central Catheter Indications: Fdc Antibiotics Procedure Details Informed consent was obtained for the procedure. Time out performed at 0745 on Today 10/13/2024 and performed by Yobani Sepulveda RN. Risks of hemorrhage, infection and DVT were discussed. Maximum sterile technique was used including hand hygiene, sterile antiseptics, cap, gown, sterile gloves, mask, and sheet. Lidocaine 1% was used , with a total of 0.5 ml injected. Lot number: [id number] #catheter size: 4 FR Single Lumen Peripherally [...] and diabetes mellitus who was sent from [facility] yesterday for postoperative infection status [...] KNEE ARTHROPLASTY; Surgeon: Wilfrido Stafford MD; Location: [facility] OR; Service: Orthopedic Surgery; Laterality: Right; Slight Bruising noted at site of bovie pad removal, Left thigh CARDIAC CATHETERIZATION GALLBLADDER SURGERY HYSTERECTOMY I&D,ABSCESS LEG Right 10/11/2024 Procedure: IRRIGATION AND DEBRIDEMENT, SUBCUTANEOUS TISSUE, SKIN, WITH JOINT ASPIRATION AND CLOSURE, POST TOTAL KNEE REPLACEMENT; Surgeon: Wilfrido Stafford MD; Location: [facility] OR; Service: Orthopedic Surgery; Laterality: Right; Procedure [...] Value Units Date/Time AFB Culture And Stain [[id number]] Collected: 10/11/24 143 Order Status: Completed Specimen: Tissue from Knee, Right Updated: 10/12/24 141 AFB Smear No acid fast bacilli seen Narrative: Specimen Description: Right Knee Synovium #1 AFB Culture And Stain [[id number]] Collected: 10/11/24 143 Order Status: Completed Specimen: Tissue from Knee, Right Updated: 10/12/24 1416 AFB Smear No acid fast bacilli seen Narrative: Specimen Description: Right Knee Synovium #2 AFB Culture And Stain [[id number]] Collected: 10/11/24 143 Order Status: Completed Specimen: Tissue from Knee, Right Updated: 10/12/24 1416 AFB Smear No acid fast bacilli seen Narrative: Specimen Description: Right Knee Synovium #3 Anaerobic Culture, Extended (P.acnes) [[id number]] Collected: 10/11/24 143 Order Status: Completed Specimen: Tissue from Knee, Right Updated: 10/12/24 0828 Result Culture in progress Narrative: Specimen Description: Right Knee Synovium #3 Anaerobic Culture, Extended (P.acnes) [[id number]] Collected: 10/11/24 143 Order Status: Completed Specimen: Tissue from Knee, Right Updated: 10/12/24 08 Result Culture in progress Narrative: Specimen Description: Right Knee Synovium #2 Anaerobic Culture, Extended (P.acnes) [[id number]] Collected: 10/11/24 1430 Order Status: Completed Specimen: Tissue from Knee, Right Updated: 10/12/24 08 Result Culture in progress Narrative: Specimen Description: Right Knee Synovium #1 Blood Culture [[id number]] Collected: 10/11/24 0628 Order Status: Completed Specimen: Blood Updated: 10/12/24 0800 Result No growth in 24 hours Tissue Culture+ Stain [[id number]] Collected: 10/11/241430 Order Status: Completed Specimen: Tissue from Knee, Right Updated: 10/12/24 0644 Result Culture in progress Gram Stain Result Few gram positive cocci in pairs and clusters Few WBCs Few epithelial cells Narrative: Specimen Description: Right Knee Synovium #3 Tissue Culture+ Stain [[id number]] Collected: 10/11/241430 Order Status: Completed Specimen: Tissue from Knee, Right Updated: 10/12/24 0643 Result No growth Gram Stain Result Rare gram positive cocci in pairs and clusters Rare WBCs Rare epithelial cells Narrative: Specimen Description: Right Knee Synovium #2 Tissue Culture+ Stain [[id number]] Collected: 10/11/24 143 Order Status: Completed Specimen: Tissue from Knee, Right Updated: 10/12/24 0643 Result No growth Gram Stain Result No organisms seen No cells seen Narrative: Specimen Description: Right Knee Synovium #1 Fungus Culture W/ERUM Or Alma Ink [[id number]] Collected: 10/11/241429 Order Status: Completed Specimen: Tissue from Knee, Right Updated: 10/11/242023 ERUM Prep No fungal elements seen Narrative: Specimen Description: Right Knee Synovium #1 Fungus Culture W/ERUM Or Alma Ink [[id number]] Collected: 10/11/241430 Order Status: Completed Specimen: Tissue from Knee, Right Updated: 10/11/242023 ERUM Prep No fungal elements seen Narrative: Specimen Description: Right Knee Synovium #2 Fungus Culture W/ERUM Or Alma Ink [[id number]] Collected: 10/11/24 143 Order Status: Completed Specimen: Tissue from Knee, Right Updated: 10/11/242023 ERUM Prep No fungal elements seen Narrative: Specimen Description: Right Knee Synovium #3 Body fluid cell count with differential [[id number]] (Abnormal) Collected: 10/11/24 1433 Order Status: Completed [...] fluids are not defined. DIFFERENTIAL, BODY FLUID [[id number]] Collected: 10/11/241432 Order Status: Completed Specimen: Synovial Fluid from Body Fluid Updated: 10/11/24 1515 Neutrophils Fluid 67 % Lymphocytes Fluid 10 % Monocytes Fluid 14 % EOSINOPHILS 9 Anaerobic Culture [[id number]] Collected: 10/11/241430 Order Status: Sent Specimen: Tissue from Knee, Right Anaerobic Culture [[id number]] Collected: 10/11/241430 Order Status: Sent Specimen: Tissue from Knee, Right Anaerobic Culture [[id number]] Collected: 10/11/241429 Order Status: Sent Specimen: Tissue from Knee, Right Blood Culture [[id number]] Order Status: Sent Specimen: Blood Radiology: Radiology [...] systems review, and clinical reasoning. CPT CODES: 36901 Eval low complexity and 98629 ADL/self-care/home management x1 This patient is a [...] KNEE ARTHROPLASTY; Surgeon: Wilfrido Stafford MD; [facility]: [facility] [facility]; Service: Orthopedic Surgery; Laterality: Right; Slight Bruising noted at site of bovie pad removal, Left thigh CARDIAC CATHETERIZATION GALLBLADDER SURGERY HYSTERECTOMY I&D,ABSCESS LEG Right 10/11/2024 Procedure: IRRIGATION AND DEBRIDEMENT, SUBCUTANEOUS TISSUE, SKIN, WITH JOINT ASPIRATION AND CLOSURE, POST TOTAL KNEE REPLACEMENT; Surgeon: Wilfrido Stafford MD; Location: [facility]; Service: Orthopedic Surgery; Laterality: Right; Procedure on [...] max A to don socks. Outcome Measures [facility] Daily Living Functional Assessment How much [...] (Minimal/Contact guard/Supervision/Setup) 4=None (Modified independent/Independent) The patient's [facility] raw score is 17. The patient currently has 50.11% functional impairment. Clinicians are most likely to recommend inpatient/SNF/usp care for patients with scores between 6-17, [...] will likely be appropriate for inpatient rehab/SNF/ usp care post hospitalization. Plan Recommendations Discharge recommendations: [...] minutes Total Time 35 minutes CPT CODES: 89324 Eval mod complex, No charge Rehab each [...] KNEE ARTHROPLASTY; Surgeon: Wilfrido Stafford MD; Location: [facility]; Service: Orthopedic Surgery; Laterality: Right; Slight Bruising noted at site of bovie pad removal, Left thigh CARDIAC CATHETERIZATION GALLBLADDER SURGERY HYSTERECTOMY I&D,ABSCESS LEG Right 10/11/2024 Procedure: IRRIGATION AND DEBRIDEMENT, SUBCUTANEOUS TISSUE, SKIN, WITH JOINT ASPIRATION AND CLOSURE, POST TOTAL KNEE REPLACEMENT; Surgeon: Wilfrido Stafford MD; Location: [facility]; Service: Orthopedic Surgery; Laterality: Right; Procedure on [...] Mobility Not assessed, patient ambulatory. Outcome Measures -[facility] Basic Mobility Inpatient Short Form How [...] POC-GLUCOSE 132 (H) 70 - 110 mg/dL [employer] [id number] Glucose, Nova Meter Status: Abnormal Collection Time: 10/11/24 11:59 AM Result Value Ref Range POC-GLUCOSE 119 (H) 70 - 110 mg/dL [employer] [id number] Tissue Culture+ Stain Status: None (Preliminary result) [...] POC-GLUCOSE 138 (H) 70 - 110 mg/dL [employer] [id number] Glucose, Nova Meter Status: Abnormal Collection Time: 10/11/24 6:12 PM Result Value Ref Range POC-GLUCOSE 273 (H) 70 - 110 mg/dL [employer] [id number] Glucose, Nova Meter Status: Abnormal Collection Time: 10/11/24 8:58 PM Result Value Ref Range POC-GLUCOSE 265 (H) 70 - 110 mg/dL [employer] [id number] Glucose, Nova Meter Status: Abnormal Collection Time: 10/12/24 7:37 AM Result Value Ref Range POC-GLUCOSE 277 (H) 70 - 110 mg/dL [employer] [id number] CT lower extremity without IV contrast right [...] in interim. CAD Chronic LBBB -S/p [facility] 07/2019 with mild CAD. -Follow up with customer account representative per recommendations. CKD She states that she [...] POC-GLUCOSE 345 (H) 70 - 110 mg/dL [employer] [id number] Procalcitonin Status: Normal Collection Time: 10/10/24 7:06 [...] POC-GLUCOSE 240 (H) 70 - 110 mg/dL [employer] [id number] Glucose, Nova Meter Status: Abnormal Collection Time: 10/11/24 5:59 AM Result Value Ref Range POC-GLUCOSE 132 (H) 70 - 110 mg/dL [employer] [id number] CBC - Hemogram (SJ-BKR) Status: Abnormal Collection [...] by Dr. Antwon Yun. Transcribed by Yesenia aCno PA-C. Assessment and Plan #Post-op infection s/p [...] in interim. CAD Chronic LBBB -S/p [facility] 07/2019 with mild CAD. -Follow up with customer account representative per recommendations. CKD Check BMP Type II [...] obstructive sleep apnea, she was sent from [facility] for postoperative infection, status post right [...] 218 (H) 70 - 110 mg/dL Final [employer] 08/23/2024 [id number] Final WBC 08/25/2024 11.7 (H) 3.9 - [...] 227 (H) 70 - 110 mg/dL Final [employer] 08/23/2024 [id number] Final POC-GLUCOSE 08/23/2024 409 (H) 70 - 110 mg/dL Final [employer] 08/23/2024 [id number] Final POC-GLUCOSE 08/23/2024 435 (H) 70 - 110 mg/dL Final [employer] 08/23/2024 [id number] Final POC-GLUCOSE 08/23/2024 361 (H) 70 - 110 mg/dL Final [employer] 08/23/2024 [id number] Final WBC 08/24/2024 13.3 (H) 3.9 - [...] 222 (H) 70 - 110 mg/dL Final [employer] 08/24/2024 [id number] Final POC-GLUCOSE 08/24/2024 243 (H) 70 - 110 mg/dL Final [employer] 08/24/2024 [id number] Final POC-GLUCOSE 08/24/2024 260 (H) 70 - 110 mg/dL Final [employer] 08/24/2024 [id number] Final POC-GLUCOSE 08/24/2024 203 (H) 70 - 110 mg/dL Final [employer] 08/24/2024 [id number] Final Sodium 08/25/2024 133 (L) 136 - [...] 193 (H) 70 - 110 mg/dL Final [employer] 08/25/2024 [id number] Final POC-GLUCOSE 08/25/2024 231 (H) 70 - 110 mg/dL Final [employer] 08/25/2024 [id number] Final POC-GLUCOSE 08/25/2024 224 (H) 70 - 110 mg/dL Final [employer] 08/25/2024 [id number] Final POC-GLUCOSE 08/25/2024 258 (H) 70 - 110 mg/dL Final [employer] 08/25/2024 [id number] Final Sodium 08/26/2024 136 136 - 146 [...] 138 (H) 70 - 110 mg/dL Final [employer] 08/26/2024 [id number] Final POC-GLUCOSE 08/26/2024 157 (H) 70 - 110 mg/dL Final [employer] 08/26/[id number] lower extremity without IV contrast [...] in interim. CAD Chronic LBBB -S/p [facility] 07/2019 with mild CAD. -Follow up with customer account representative per recommendations. CKD Check BMP Type II [...] obstructive sleep apnea, she was sent from [facility] for postoperative infection, status post right [...] 218 (H) 70 - 110 mg/dL Final [employer] 08/23/2024 [id number] Final WBC 08/25/2024 11.7 (H) 3.9 - [...] 227 (H) 70 - 110 mg/dL Final [employer] 08/23/2024 [id number] Final POC-GLUCOSE 08/23/2024 409 (H) 70 - 110 mg/dL Final [employer] 08/23/2024 [id number] Final POC-GLUCOSE 08/23/2024 435 (H) 70 - 110 mg/dL Final D[employer] P[employer] 08/23/2024 [id number] Final POC-GLUCOSE 08/23/2024 361 (H) 70 - 110 mg/dL Final D[employer] 08/23/2024 [id number] Final WBC 08/24/2024 13.3 (H) 3.9 - [...] 222 (H) 70 - 110 mg/dL Final [employer] 08/24/2024 [id number] Final POC-GLUCOSE 08/24/2024 243 (H) 70 - 110 mg/dL Final D[employer] P[employer]ader 08/24/2024 [id number] Final POC-GLUCOSE 08/24/2024 260 (H) 70 - 110 mg/dL Final [employer] P[employer]ader 08/24/2024 [id number] Final POC-GLUCOSE 08/24/2024 203 (H) 70 - 110 mg/dL Final [employer] 08/24/2024 [id number] Final Sodium 08/25/2024 133 (L) 136 - [...] 193 (H) 70 - 110 mg/dL Final [employer] 08/25/2024 [id number] Final POC-GLUCOSE 08/25/2024 231 (H) 70 - 110 mg/dL Final [employer] 08/25/2024 [id number] Final POC-GLUCOSE 08/25/2024 224 (H) 70 - 110 mg/dL Final [employer] 08/25/2024 [id number] Final POC-GLUCOSE 08/25/2024 258 (H) 70 - 110 mg/dL Final D[employer] P[employer] 08/25/2024 [id number] Final Sodium 08/26/2024 136 136 - 146 [...] 138 (H) 70 - 110 mg/dL Final [employer] 08/26/2024 [id number] Final POC-GLUCOSE 08/26/2024 157 (H) 70 - 110 mg/dL Final [employer] 08/26/[id number] lower extremity without IV contrast [...] 07/2019 with mild CAD. -Follow up with customer account representative per recommendations. CKD Check BMP Type II [...] Agency Type: SNF SNF Name and Number: [facility] Patient returning to prior living situation? [...] Needed for Discharge: None Patient Discharge Goal: Group Home Facility Mandated Reporting: Not applicable CM consulted for SNF placement. Met w/pt at bedside, confirmed contact, demographic and pcp information. Pt typically lives at home alone, but is currently residing at [facility] for [facility]. Pts goal is still to go home, [...] DISEASES Infectious Disease Consult Patient Name: Louie aSnon : 1940 Date of Consult: 10/11/24 Admission Date: 10/10/2024 Requesting Provider: Brigitte Boone MD Evaluating Physician: David Fulton MD Chief Complaint: right knee pain, redness, and swelling Reason for Consultation: joint infection History of present illness: Loiue Snaon is a 84 y.o. female with history of Chronic kidney disease, COPD, coronary artery disease, hypertension, hyperlipidemia, obstructive sleep apnea, and diabetes mellitus who was sent from [facility] yesterday for postoperative infection status [...] KNEE ARTHROPLASTY; Surgeon: Wilfrido Stafford MD; Location: [facility]; Service: Orthopedic Surgery; Laterality: Right; Slight Bruising [...] Procedure Component Value Units Date/Time Blood Culture [[id number]] Collected: 10/11/24627 Order Status: Resulted Specimen: Blood Updated: 10/11/24627 Blood Culture [[id number]] Order Status: Sent Specimen: Blood Radiology: Radiology [...] (From admission, onward) Start Ordered 10/11/24 1434 [facility] [employer] Cytology RELEASE UPON ORDERING 10/11/24 1434 Complications: [...] GLUCOSE POC Routine 10/11/2024 3:48 PM EDT [facility] DIFFERENTIAL, BODY FLUID Routine 10/11/2024 2:33 PM EDT Infection of prosthetic knee joint (HCC) CYTOLOGY ([facility]) AP Routine 10/11/2024 2:33 PM EDT [...] Glucose, Nova Meter (10/14/2024 11:28 AM EDT) [facility] POC-GLUCOSE 182(H) 70 - 110 mg/dL 10/14/2024 11:29 AM EDT [facility] Comment: In the event of poor peripheral blood flow, venous or arterial blood should be used due to the potential of erroneous results. Notified Nurse RBV [employer] [id number] 10/14/2024 11:29 AM EDT [facility] Blood WHOLE BLOOD / Unknown 10/14/2024 11:28 AM EDT 10/14/2024 11:29 AM EDT Narrative [facility] - 10/14/2024 11:29 AM EDT [employer] ID is - [id number] Brigitte Boone MD POINT OF CARE TEST ORDERABLES Final Result Performing Organization Address City/[facility]/ZIP Co de Phone Number [facility] [address] [place] [address], [place] [phone] * (ABNORMAL) Glucose, Nova Meter (10/14/2024 5:32 AM EDT) POC-GLUCOSE 185(H) 70 - 110 mg/dL 10/14/2024 5:33 AM EDT [facility] Comment: In the event of poor peripheral blood flow, venous or arterial blood should be used due to the potential of erroneous results. Notified Nurse RBV [employer] [id number] 10/14/2024 5:33 AM EDT [facility] Blood WHOLE BLOOD / Unknown 10/14/2024 5:32 AM EDT 10/14/2024 5:33 AM EDT Narrative [facility] - 10/14/2024 5:33 AM EDT [employer] ID is - [id number] us Brigitte Boone MD POINT OF CARE TEST ORDERABLES Final Result Performing Organization Address City/[facility]/ZIP Co de Phone Number [facility] [address] [place] [address], [place] [phone] * (ABNORMAL) Basic Metabolic Panel (10/14/2024 4:07 AM EDT) Sodium 136 136 - 146 meq/L 10/14/2024 4:25 AM EDT [facility] Potassium 4.1 3.5 - 5.1 meq/L 10/14/2024 4:25 AM EDT [facility] Chloride 102 102 - 112 meq/L 10/14/2024 4:25 AM EDT [facility] CO2 32 21 - 32 meq/L 10/14/2024 4:25 AM EDT [facility] Anion Gap 6(L) 9 - 20 10/14/2024 4:25 AM EDT [facility] BUN 35(H) 7 - 22 mg/dL 10/14/2024 4:25 AM EDT [facility] Creatinine 1.29(H) 0.55 - 1.02 mg/dL 10/14/2024 4:25 AM EDT [facility] BUN/Creatinine 27(H) 8 - 20 10/14/2024 4:25 AM EDT [facility] Glucose 211(H) 74 - 106 mg/dL 10/14/2024 4:25 AM EDT [facility] Calcium 8.4(L) 8.5 - 10.1 mg/dL 10/14/2024 4:25 AM EDT [facility] Osmolality Calc 286.2 mOsm/kg 4:25 AM EDT [facility] eGFR (mL/min/1.73m2) 41(L) >=60 mL/min/1.7 3m2 10/14/2024 4:25 AM EDT [facility] Comment:eGFR of <60 suggests chronic kidney disease if found over a 3 month period of time. eGFR <15 indicates renal failure. Blood Venipuncture / Unknown 10/14/2024 4:07 AM EDT 10/14/2024 4:07 AM EDT us Brigitte Boone MD LAB BLOOD ORDERABLES Final Re sult [facility] [address], [place] [address] [phone] * (ABNORMAL) CBC with Automated Diff (10/14/2024 4:07 AM EDT) WBC 8.3 3.9 - 10.0 K/ L 10/14/2024 4:20 AM EDT [facility] RBC 4.23 3.93 - 6.08 M/ L 10/14/2024 4:20 AM EDT [facility] Hemoglobin 12.7 11.2 - 15.7 GM/DL 10/14/2024 4:20 AM EDT [facility] Hematocrit 38.6 34.1 - 44.9 % 10/14/2024 4:20 AM EDT [facility] MCV 91 79 - 95 fL 10/14/2024 4:20 AM EDT [facility] MCH 30.0 25.6 - 32.2 pg 10/14/2024 4:20 AM EDT [facility] MCHC 32.9 32.2 - 36.5 GM/DL 10/14/2024 4:20 AM EDT [facility] RDW 12.8 11.6 - 14.4 % 10/14/2024 4:20 AM EDT [facility] Platelets 250 163 - 369 K/CU MM 10/14/2024 4:20 AM EDT [facility] MPV 9.3(L) 9.4 - 12.4 fL 10/14/2024 4:20 AM EDT [facility] % Neutros 66 34 - 71 % 10/14/2024 4:20 AM EDT [facility] % Lymphs 21 19 - 53 % 10/14/2024 4:20 AM EDT [facility] % Monos 11 4 - 13 % 10/14/2024 4:20 AM EDT [facility] % Eos 1 1 - 7 % 10/14/2024 4:20 AM EDT [facility] % Baso 0 0 - 1 % 10/14/2024 4:20 AM EDT [facility] # Neutros 5.42 1.56 - 6.13 K/ L 10/14/2024 4:20 AM EDT [facility] # Lymphs 1.76 1.18 - 3.74 K/ L 10/14/2024 4:20 AM EDT [facility] # Monos 0.92(H) 0.24 - 0.82 K/ L 10/14/2024 4:20 AM EDT [facility] # Eos 0.11 0.04 - 0.54 K/ L 10/14/2024 4:20 AM EDT [facility] # Baso 0.02 0.01 - 0.08 K/ L 10/14/2024 4:20 AM EDT [facility] Immature Granulocytes-Re lative 0.20 0.00 - 0.60 % 10/14/2024 4:20 AM EDT [facility] # IG 0.02 0.00 - 0.05 K/uL 10/14/2024 4:20 AM EDT [facility] Blood Venipuncture / Unknown 10/14/2024 4:07 AM EDT 10/14/2024 4:07 AM EDT [facility] - 10/14/2024 4:20 AM EDT When [...] MD LAB BLOOD ORDERABLES Final Re sult [facility] [address] [place] [address] * (ABNORMAL) Glucose, Nova Meter (10/13/2024 8:14 PM EDT) POC-GLUCOSE 234(H) 70 - 110 mg/dL 10/13/2024 8:15 PM EDT [facility] Comment: In the event of poor peripheral blood flow, venous or arterial blood should be used due to the potential of erroneous results. Notified Nurse RBV [employer] [id number] 10/13/2024 8:15 PM EDT [facility] Blood WHOLE BLOOD / Unknown 10/13/2024 8:14 PM EDT 10/13/2024 8:15 PM EDT [facility] - 10/13/2024 8:15 PM EDT [employer] ID is - [id number] Brigitte Boone MD POINT OF CARE TEST ORDERABLES Final Result Performing Organization Address [facility] Co de Phone Number [facility] [address] [phone] * (ABNORMAL) Glucose, Nova Meter (10/13/2024 3:47 PM EDT) POC-GLUCOSE 197(H) 70 - 110 mg/dL 10/13/2024 3:49 PM EDT [facility] Comment: In the event of poor peripheral blood flow, venous or arterial blood should be used due to the potential of erroneous results. Notified Nurse RBV [employer] [id number] 10/13/2024 3:49 PM EDT [facility] Blood WHOLE BLOOD / Unknown 10/13/2024 3:47 PM EDT 10/13/2024 3:49 PM EDT [facility] - 10/13/2024 3:49 PM EDT [employer] ID is - [id number] Brigitte Boone MD POINT OF CARE TEST ORDERABLES Final Result Performing Organization Address [facility] de Phone Number [facility] [address] [phone] * (ABNORMAL) Glucose, Nova Meter (10/13/2024 11:10 AM EDT) POC-GLUCOSE 275(H) 70 - 110 mg/dL 10/13/2024 11:12 AM EDT [facility] Comment: In the event of poor peripheral blood flow, venous or arterial blood should be used due to the potential of erroneous results. Notified Nurse RBV [employer] [id number] 10/13/2024 11:12 AM EDT [facility] Blood WHOLE BLOOD / Unknown 10/13/2024 11:10 AM EDT 10/13/2024 11:12 AM EDT [facility] - 10/13/2024 11:12 AM EDT [employer] ID is - [id number] Brigitte Boone MD POINT OF CARE TEST ORDERABLES Final Result Performing Organization Address [facility] Co de Phone Number [facility] [address] [phone] * (ABNORMAL) Glucose, Nova Meter (10/13/2024 5:33 AM EDT) POC-GLUCOSE 248(H) 70 - 110 mg/dL 10/13/2024 5:34 AM EDT [facility] Comment: In the event of poor peripheral blood flow, venous or arterial blood should be used due to the potential of erroneous results. Notified Nurse RBV D[employer] [id number] 10/13/2024 5:34 AM EDT [facility] Blood WHOLE BLOOD / Unknown 10/13/2024 5:33 AM EDT 10/13/2024 5:34 AM EDT [facility] - 10/13/2024 5:34 AM EDT [employer] ID is - [id number] Brigitte Boone MD POINT OF CARE TEST ORDERABLES Final Result Performing Organization Address [facility] Co de Phone Number [facility] [address] [phone] * (ABNORMAL) Glucose, Nova Meter (10/12/2024 8:41 PM EDT) POC-GLUCOSE 277(H) 70 - 110 mg/dL 10/12/2024 8:42 PM EDT [facility] Comment: In the event of poor peripheral blood flow, venous or arterial blood should be used due to the potential of erroneous results. Notified Nurse RBV [employer] [id number] 10/12/2024 8:42 PM EDT [facility] Blood WHOLE BLOOD / Unknown 10/12/2024 8:41 PM EDT 10/12/2024 8:42 PM EDT [facility] - 10/12/2024 8:42 PM EDT [employer] ID is - [id number] Brigitte Boone MD POINT OF CARE TEST ORDERABLES Final Result Performing Organization Address [facility] Co de Phone Number [facility] [address] [phone] * (ABNORMAL) Glucose, Nova Meter (10/12/2024 3:53 PM EDT) POC-GLUCOSE 291(H) 70 - 110 mg/dL 10/12/2024 3:54 PM EDT [facility] Comment: In the event of poor peripheral blood flow, venous or arterial blood should be used due to the potential of erroneous results. Notified Nurse RBV [employer] [id number] 10/12/2024 3:54 PM EDT [facility] Blood WHOLE BLOOD / Unknown 10/12/2024 3:53 PM EDT 10/12/2024 3:54 PM EDT [facility] - 10/12/2024 3:54 PM EDT [employer] ID is - [id number] Brigitte Boone MD POINT OF CARE TEST ORDERABLES Final Result Performing Organization Address [facility] de Phone Number [facility] [address] [phone] * (ABNORMAL) Glucose, Nova Meter (10/12/2024 11:28 AM EDT) POC-GLUCOSE 343(H) 70 - 110 mg/dL 10/12/2024 11:29 AM EDT [facility] Comment: In the event of poor peripheral blood flow, venous or arterial blood should be used due to the potential of erroneous results. Notified Nurse RBV [employer] P[employer] [id number] 10/12/2024 11:29 AM EDT [facility] Blood WHOLE BLOOD / Unknown 10/12/2024 11:28 AM EDT 10/12/2024 11:29 AM EDT [facility] - 10/12/2024 11:29 AM EDT [employer] ID is - [id number] Brigitte Boone MD POINT OF CARE TEST ORDERABLES Final Result Performing Organization Address [facility] Co de Phone Number [facility] [address] [place] [address], [place] [phone] * (ABNORMAL) Glucose, Nova Meter (10/12/2024 7:37 AM EDT) POC-GLUCOSE 277(H) 70 - 110 mg/dL 10/12/2024 7:39 AM EDT [facility] Comment: In the event of poor peripheral blood flow, venous or arterial blood should be used due to the potential of erroneous results. Received Meds [employer] [id number] 10/12/2024 7:39 AM EDT [facility] Blood WHOLE BLOOD / Unknown 10/12/2024 7:37 AM EDT 10/12/2024 7:39 AM EDT [facility] - 10/12/2024 7:39 AM EDT [employer] ID is - [id number] Brigitte Boone MD POINT OF CARE TEST ORDERABLES Final Result Performing Organization Address [facility] de Phone Number [facility] [address] [place] [address], [place] [phone] * (ABNORMAL) Glucose, Nova Meter (10/11/2024 8:58 PM EDT) POC-GLUCOSE 265(H) 70 - 110 mg/dL 10/11/2024 8:59 PM EDT [facility] Comment: In the event of poor peripheral blood flow, venous or arterial blood should be used due to the potential of erroneous results. Notified Nurse RBV [employer] [id number] 10/11/2024 8:59 PM EDT [facility] Blood WHOLE BLOOD / Unknown 10/11/2024 8:58 PM EDT 10/11/2024 8:59 PM EDT [facility] - 10/11/2024 8:59 PM EDT [employer] ID is - [id number] Brigitte Boone MD POINT OF CARE TEST ORDERABLES Final Result Performing Organization Address [facility] Co de Phone Number [facility] [address] [phone] * (ABNORMAL) Glucose, Nova Meter (10/11/2024 6:12 PM EDT) POC-GLUCOSE 273(H) 70 - 110 mg/dL 10/11/2024 6:14 PM EDT [facility] Comment: In the event of poor peripheral blood flow, venous or arterial blood should be used due to the potential of erroneous results. Notified Nurse RBV [employer] [id number] 10/11/2024 6:14 PM EDT [facility] Blood WHOLE BLOOD / Unknown 10/11/2024 6:12 PM EDT 10/11/2024 6:14 PM EDT [facility] - 10/11/2024 6:14 PM EDT [employer] ID is - [id number] Brigitte Boone MD POINT OF CARE TEST ORDERABLES Final Result Performing Organization Address [facility] de Phone Number [facility] [address] [phone] * (ABNORMAL) Glucose, Nova Meter (10/11/2024 3:48 PM EDT) POC-GLUCOSE 138(H) 70 - 110 mg/dL 10/11/2024 3:49 PM EDT [facility] Comment:In the event of poor peripheral blood flow, venous or arterial blood should be used due to the potential of erroneous results. [employer]ader [id number] 10/11/2024 3:49 PM EDT [facility] Blood WHOLE BLOOD / Unknown 10/11/2024 3:48 PM EDT 10/11/2024 3:49 PM EDT [facility] - 10/11/2024 3:49 PM EDT [employer] ID is - [id number] Brigitte Boone MD POINT OF CARE TEST ORDERABLES Final Result Performing Organization Address [facility] Co de Phone Number [facility] [address] [phone] * DIFFERENTIAL, BODY FLUID (10/11/2024 2:33 PM EDT) Neutrophils Fluid 67 0 - 25 % 10/11/2024 3:15 PM EDT [facility] Lymphocytes Fluid 10 % 10/11/2024 3:15 PM EDT [facility] Monocytes Fluid 14 0 - 65 % 3:15 PM EDT [facility] EOSINOPHILS 9 10/11/2024 3:15 PM EDT [facility] Synovial Fluid BODY FLUID / Unknown 10/11/2024 2:33 PM EDT 10/11/2024 2:39 PM EDT Wilfrido Stafford MD BODY FLUIDS AND STOOLS ORDERABLE S Final Result Performing Organization Address [facility] Co de Phone Number [facility] [address] [phone] * [facility] Non-Aircraft Metalsmith Cytology (10/11/2024 2:33 PM EDT) AP RESULT See Note: [facility] Comment: [facility] [address] [place] [address] or [phone] Rusty Ferris M.D., [employer] Engineer PATIENT NAME LABORATORY NO. [address]. [id number] AGE SEX SSN CLIENT REF # [facility] [id number] [address] REQUESTING John ATTENDING MMary [place] [address] WILFRIDO STAFFORD DATE COLLECTED DATE RECEIVED DATE REPORTED 10/11/2024 10/11/2024 10/12/2024 DIAGNOSIS: SYNOVIAL JOINT FLUID, RIGHT KNEE: Negative for malignant cells. MICROSCOPIC DESCRIPTION: Acute and chronic inflammation are present in a background of amorphous debris. Professional interpretation rendered by Efrain Ferguson M.D., Geraldine at [facility], [facility], [address] [place] [address]. 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 Cell block has been examined. SPECIMEN TECHNICIAN: NAHOMI MARTINEZ (ASCP) REVIEWED, DIAGNOSED AND ELECTRONICALLY SIGNED BY: Efrain Ferguson M.D., Delfin. CPT CODES: 85813, [id number] Synovial Fluid BODY FLUID / Unknown 10/11/2024 2:33 PM EDT us Wilfrido Stafford MD PATHOLOGY/CYTOLOGY ORDERABLES [facility] Result [facility]Y [facility]TOLOGY LABORATORY [address] [place] [address] * (ABNORMAL) Body fluid cell count with differential (10/11/2024 2:33 PM EDT) Appearance Bloody(A) Clear 10/11/2024 3:15 PM EDT [facility] Color Red 10/11/2024 3:15 PM EDT [facility] BODY FLUID TYPE Synovial 3:15 PM EDT [facility] Auto WBC/Nucleated Cells BF 1,861 /uL 10/11/2024 3:15 PM EDT [facility] Comment: Please refer to specific WBC/Nucleated Cell Count Body Fluid reference ranges below: For Pleural: 0-1000 Peritoneal: 0-1000 Pericardial:0-1000 Synovial: 0-200 Auto RBC BF 80,000 /uL 10/11/2024 3:15 PM EDT [facility] Comment: Please refer to specific RBC Cell Count Body Fluid reference ranges below: Pleural: 0-10,000 Peritoneal: 0-10,000 Pericardial:0-10,000 Synovial:0-30 Synovial Fluid BODY FLUID / Unknown 10/11/2024 2:33 PM EDT 10/11/2024 2:39 PM EDT Narrative [facility] - 10/11/2024 3:15 PM EDT There is normally no readily obtainable pleural, peritoneal and pericardial fluid, hence normal elements for these potential fluids are not defined. us Wilfrido Stafford MD BODY FLUIDS AND STOOLS ORDERABLE S Final Result [facility] [address] [phone] * SPIN/CONCENTRATION CHARGE (10/11/2024 2:31 PM EDT) Concentration charged Done 10/23/2024 10:56 AM EDT [facility] Tissue STRUCTURE OF RIGHT KNEE REGION / Unknown 10/11/2024 2:31 PM EDT 10/11/2024 3:04 PM EDT us Wilfrido Stafford MD MICROBIOLOGY - GENERAL ORDERABLE S Final Result Performing Organization Address City/[facility]/ZIP Co de Phone Number [facility] [address] [phone] * SPIN/CONCENTRATION CHARGE (10/11/2024 2:31 PM EDT) Concentration charged Done 10/12/2024 2:17 PM EDT [facility] Tissue STRUCTURE OF RIGHT KNEE REGION / Unknown 10/11/2024 2:31 PM EDT 10/11/2024 3:05 PM EDT us Wilfrido Stafford MD MICROBIOLOGY - GENERAL ORDERABLE S Final Result Performing Organization Address City/[facility]/ZIP Co de Phone Number [facility] [address] [phone] * AFB Culture And Stain (10/11/2024 2:31 PM EDT) Result No Acid Fast Bacilli isolated at 6 weeks 11/22/2024 4:00 PM EDT [facility] AFB Smear No acid fast bacilli seen 11/22/2024 4:00 PM EDT [facility] Tissue STRUCTURE OF RIGHT KNEE REGION / Unknown 10/11/2024 2:31 PM EDT 10/11/2024 3:05 PM EDT [facility] - 11/22/2024 4:00 PM EDT Specimen Description: Right Knee Synovium #2 us Wilfrido Stafford MD MICROBIOLOGY - GENERAL ORDERABLE S Final Result [facility] [address] [place] [address], [place] [phone] * Fungus Culture W/ERUM Or Alma Ink (10/11/2024 2:31 PM EDT) Result No fungus isolated at 6 weeks. 11/22/2024 4:00 PM EDT [facility] ERUM Prep No fungal elements seen 11/22/2024 4:00 PM EDT [facility] Tissue STRUCTURE OF RIGHT KNEE REGION / Unknown 10/11/2024 2:31 PM EDT 10/11/2024 3:04 PM EDT [facility] - 11/22/2024 4:00 PM EDT Specimen Description: Right Knee Synovium #3 us Wilfrido Stafford MD MICROBIOLOGY - GENERAL ORDERABLE S Final Result [facility] [address] [place] [address], [place] [phone] * Fungus Culture W/ERUM Or Alma Ink (10/11/2024 2:31 PM EDT) Result No fungus isolated at 6 weeks. 11/22/2024 4:00 PM EDT [facility] ERUM Prep No fungal elements seen 11/22/2024 4:00 PM EDT [facility] Tissue STRUCTURE OF RIGHT KNEE REGION / Unknown 10/11/2024 2:31 PM EDT 10/11/2024 3:03 PM EDT [facility] - 11/22/2024 4:00 PM EDT Specimen Description: Right Knee Synovium #2 Wilfrido Stafford MD MICROBIOLOGY - GENERAL ORDERABLE S Final Result Performing Organization Address [facility] Co de Phone Number [facility] [address] [phone] * (ABNORMAL) Anaerobic Culture, Extended (P.acnes) (10/11/2024 2:31 PM EDT) Result Anaerococcus vaginalis(A) 10/25/2024 7:00 AM EDT [facility] Result Peptoniphilus harei(A) 10/25/2024 7:00 AM EDT [facility] Result Porphyromonas somerae(A) 10/25/2024 7:00 AM EDT [facility] Result Anaerobic gram positive cocci(A) 10/25/2024 7:00 AM EDT [facility] Comment:* - Peptoniphilus sp ecies Tissue STRUCTURE OF RIGHT KNEE REGION / Unknown 10/11/2024 2:31 PM EDT 10/11/2024 3:03 PM EDT [facility] - 10/25/2024 7:00 AM EDT Specimen Description: Right Knee Synovium #3 For Peptoniphilus species ID This test was developed and its performance characteristics determined by [facility]. It has not been cleared by [...] ORDERABLE S Final Result Performing Organization Address [facility] Co de Phone Number [facility] [address] [phone] * (ABNORMAL) Anaerobic Culture, Extended (P.acnes) (10/11/2024 2:31 PM EDT) Result Peptoniphilus harei(A) 10/24/2024 7:06 AM EDT [facility] Result Porphyromonas somerae(A) 10/24/2024 7:06 AM EDT [facility] Result Cutibacterium acnes(A) 10/24/2024 7:06 AM EDT [facility] Tissue STRUCTURE OF RIGHT KNEE REGION / Unknown 10/11/2024 2:31 PM EDT 10/11/2024 3:03 PM EDT Narrative [facility] - 10/24/2024 7:06 AM EDT Specimen Description: Right Knee Synovium #2 Mixed growth suggestive of colonization or indigenous alvaro. Inappropriate for full workup Wilfrido Stafford MD MICROBIOLOGY - GENERAL ORDERABLE S Final Result [facility] [address] [phone] * (ABNORMAL) Tissue Culture+ Stain (10/11/2024 2:31 PM EDT) Result Moderate Growth Methicillin resistant Staphylococcus aureus(A) 10/15/2024 11:51 AM EDT [facility] Comment: Resistant organism requires isolation protocol. For susceptibility see previous report - Accession - [id number] Result Light Growth Haemophilus parainfluenzae(A) 10/15/2024 11:51 AM EDT [facility] Comment:Beta-lactamase negat brooke Gram Stain Result Few gram positive cocci in pairs and clusters 10/15/2024 11:51 AM EDT [facility] Gram Stain Result Few WBCs 025 11:51 AM EDT [facility] Gram Stain Result Few epithelial cells 10/15/2024 11:51 AM EDT [facility] Tissue STRUCTURE OF RIGHT KNEE REGION / Unknown 10/11/2024 2:31 PM EDT 10/11/2024 3:03 PM EDT Narrative [facility] - 10/15/2024 11:51 AM EDT Specimen Description: Right Knee Synovium #3 us Wilfrido Stafford MD MICROBIOLOGY - GENERAL ORDERABLE S Final Result [facility] [address] [phone] * (ABNORMAL) Tissue Culture+ Stain (10/11/2024 2:31 PM EDT) Result Light Growth Methicillin resistant Staphylococcus aureus(A) 10/14/2024 8:27 AM EDT [facility] Comment: Resistant organism requires isolation protocol. For susceptibility see previous report - Accession - [id number] Gram Stain Result Rare gram positive cocci in pairs and clusters 10/14/2024 8:27 AM EDT [facility] Gram Stain Result Rare WBCs 025 8:27 AM EDT [facility] Gram Stain Result Rare epithelial cells 10/14/2024 8:27 AM EDT [facility] Tissue STRUCTURE OF RIGHT KNEE REGION / Unknown 10/11/2024 2:31 PM EDT 10/11/2024 3:03 PM EDT [facility] - 10/14/2024 8:27 AM EDT Specimen Description: Right Knee Synovium #2 us Wilfrido Stafford MD MICROBIOLOGY - GENERAL ORDERABLE S Final Result [facility] [address] [phone] * AFB Culture And Stain (10/11/2024 2:30 PM EDT) Result No Acid Fast Bacilli isolated at 6 weeks 11/22/2024 4:00 PM EDT [facility] AFB Smear No acid fast bacilli seen 11/22/2024 4:00 PM EDT [facility] Tissue STRUCTURE OF RIGHT KNEE REGION / Unknown 10/11/2024 2:30 PM EDT 10/11/2024 3:04 PM EDT Narrative [facility] - 11/22/2024 4:00 PM EDT Specimen Description: Right Knee Synovium #1 Wilfrido Stafford MD MICROBIOLOGY - GENERAL ORDERABLE S Final Result [facility] [address] [phone] * Fungus Culture W/ERUM Or Alma Ink (10/11/2024 2:30 PM EDT) Result No fungus isolated at 6 weeks. 11/22/2024 4:00 PM EDT [facility] ERUM Prep No fungal elements seen 11/22/2024 4:00 PM EDT [facility] Tissue STRUCTURE OF RIGHT KNEE REGION / Unknown 10/11/2024 2:30 PM EDT 10/11/2024 3:03 PM EDT [facility] - 11/22/2024 4:00 PM EDT Specimen Description: Right Knee Synovium #1 us Wilfrido Stafford MD MICROBIOLOGY - GENERAL ORDERABLE S Final Result Performing Organization Address City/[facility]/ZIP Co de Phone Number [facility] [address] [phone] * (ABNORMAL) Anaerobic Culture, Extended (P.acnes) (10/11/2024 2:30 PM EDT) Result Porphyromonas somerae(A) 10/25/2024 6:57 AM EDT [facility] Result Anaerobic gram positive cocci(A) 10/25/2024 6:57 AM EDT [facility] Comment:* - Peptoniphilus sp ecies Tissue STRUCTURE OF RIGHT KNEE REGION / Unknown 10/11/2024 2:30 PM EDT 10/11/2024 3:03 PM EDT [facility] - 10/25/2024 6:57 AM EDT Specimen Description: Right Knee Synovium #1 Peptoniphilus species This test was developed and its performance characteristics determined by [facility]. It has not been cleared by the [place] Food and Drug Administration This result was determined by [employer]. This test is used for clinical purposes. It should not be reguarded as investigational or for research Mixed growth suggestive of colonization or indigenous alvaro. Inappropriate for full workup us Wilfrido Stafford MD MICROBIOLOGY - GENERAL ORDERABLE S Final Result [facility] [address] [phone] * (ABNORMAL) Tissue Culture+ Stain (10/11/2024 2:30 PM EDT) Result Light Growth Methicillin resistant Staphylococcus aureus(A) 10/14/2024 8:26 AM EDT [facility] Comment:Resistant organism r equires isolation protocol. Gram Stain Result No organisms seen 10/14/2024 8:26 AM EDT [facility] Gram Stain Result No cells seen 10/14/2024 8:26 AM EDT [facility] Tissue STRUCTURE OF RIGHT KNEE REGION / Unknown 10/11/2024 2:30 PM EDT 10/11/2024 3:03 PM EDT Narrative [facility] - 10/14/2024 8:26 AM EDT Specimen [...] MICROBIOLOGY - GENERAL ORDERABLE S Final Result [facility] [address] [phone] * (ABNORMAL) Glucose, Nova Meter (10/11/2024 11:59 AM EDT) POC-GLUCOSE 119(H) 70 - 110 mg/dL 10/11/2024 12:01 PM EDT [facility] Comment: In the event of poor peripheral blood flow, venous or arterial blood should be used due to the potential of erroneous results. Notified Nurse RBV Dressed Poultry Grader [phone] 10/11/2024 12:01 PM EDT [facility] Blood WHOLE BLOOD / Unknown 10/11/2024 11:59 AM EDT 10/11/2024 12:00 PM EDT Narrative [facility] - 10/11/2024 12:01 PM EDT Dressed Poultry Grader ID is - [id number] us Brigitte Boone MD POINT OF CARE TEST ORDERABLES Final Result [facility] [address] [place] [address], [place] [phone] * (ABNORMAL) Glucose, Nova Meter (10/11/2024 11:10 AM EDT) POC-GLUCOSE 132(H) 70 - 110 mg/dL 10/11/2024 11:11 AM EDT [facility] Comment: In the event of poor peripheral blood flow, venous or arterial blood should be used due to the potential of erroneous results. Notified Nurse [employer]BV Dressed Poultry Grader [phone] 10/11/2024 11:11 AM EDT [facility] Blood WHOLE BLOOD / Unknown 10/11/2024 11:10 AM EDT 10/11/2024 11:11 AM EDT Narrative [facility] - 10/11/2024 11:11 AM EDT Dressed Poultry Grader ID is - [id number] us Brigitte Boone MD POINT OF CARE TEST ORDERABLES Final Result Performing Organization Address City/[facility]/ZIP Co de Phone Number [facility] [address] [phone] * Blood Culture (10/11/2024 6:28 AM EDT) Result No growth in 5 days 10/16/2024 8:01 AM EDT [facility] Blood STRUCTURE OF RIGHT HAND / Unknown Venipuncture / Unknown 10/11/2024 6:28 AM EDT 10/11/2024 6:28 AM EDT us Brigitte Boone MD MICROBIOLOGY - GENERAL ORDERA BLES Final Result Performing Organization Address [facility]/ZIP Co de Phone Number [facility] [address] [phone] * Creatine Kinase (CK) (10/11/2024 6:21 AM EDT) Total CK 87 26 - 192 U/L 10/11/2024 8:35 AM EDT [facility] Blood Venipuncture / Unknown 10/11/2024 6:21 AM EDT 10/11/2024 6:28 AM EDT us David Fulton MD LAB BLOOD ORDERABLES Final Re sult Performing Organization Address City/[facility]/ZIP Co de Phone Number [facility] [address] [place] [address], [place] [phone] * (ABNORMAL) Basic Metabolic Panel (10/11/2024 6:21 AM EDT) Sodium 137 136 - 146 meq/L 10/11/2024 6:48 AM EDT [facility] Potassium 3.8 3.5 - 5.1 meq/L 10/11/2024 6:48 AM EDT [facility] Chloride 101(L) 102 - 112 meq/L 10/11/2024 6:48 AM EDT [facility] CO2 33(H) 21 - 32 meq/L 10/11/2024 6:48 AM EDT [facility] Anion Gap 7(L) 9 - 20 10/11/2024 6:48 AM EDT [facility] BUN 26(H) 7 - 22 mg/dL 10/11/2024 6:48 AM EDT [facility] Creatinine 1.52(H) 0.55 - 1.02 mg/dL 10/11/2024 6:48 AM EDT [facility] BUN/Creatinine 17 8 - 20 10/11/2024 6:48 AM EDT [facility] Glucose 122(H) 74 - 106 mg/dL 10/11/2024 6:48 AM EDT [facility] Calcium 9.1 8.5 - 10.1 mg/dL 10/11/2024 6:48 AM EDT [facility] Osmolality Calc 279.9 mOsm/kg 6:48 AM EDT [facility] eGFR (mL/min/1.73m2) 33(L) >=60 mL/min/1.7 3m2 10/11/2024 6:48 AM EDT [facility] Comment:eGFR of <60 suggests chronic kidney disease if found over a 3 month period of time. eGFR <15 indicates renal failure. Blood Venipuncture / Unknown 10/11/2024 6:21 AM EDT 10/11/2024 6:28 AM EDT us Brigitte Boone MD LAB BLOOD ORDERABLES Final Re sult [facility] [address] [phone] * (ABNORMAL) CBC - Hemogram (SJ-BKR) (10/11/2024 6:21 AM EDT) WBC 6.9 3.9 - 10.0 K/ L 10/11/2024 6:36 AM EDT [facility] RBC 4.62 3.93 - 6.08 M/ L 10/11/2024 6:36 AM EDT [facility] Hemoglobin 13.9 11.2 - 15.7 GM/DL 10/11/2024 6:36 AM EDT [facility] Hematocrit 42.0 34.1 - 44.9 % 10/11/2024 6:36 AM EDT [facility] MCV 91 79 - 95 fL 10/11/2024 6:36 AM EDT [facility] MCH 30.1 25.6 - 32.2 pg 10/11/2024 6:36 AM EDT [facility] MCHC 33.1 32.2 - 36.5 GM/DL 10/11/2024 6:36 AM EDT [facility] RDW 13.1 11.6 - 14.4 % 10/11/2024 6:36 AM EDT [facility] Platelets 263 163 - 369 K/CU MM 10/11/2024 6:36 AM EDT [facility] MPV 9.3(L) 9.4 - 12.4 fL 10/11/2024 6:36 AM EDT [facility] nRBC 0(L) 1 - 5 /100 WBC 10/11/2024 6:36 AM EDT [facility] Blood Venipuncture / Unknown 10/11/2024 6:21 AM EDT 10/11/2024 6:28 AM EDT us Brigitte Boone MD LAB BLOOD ORDERABLES Final Re sult [facility] [address] [phone] * (ABNORMAL) Glucose, Nova Meter (10/11/2024 5:59 AM EDT) POC-GLUCOSE 132(H) 70 - 110 mg/dL 10/11/2024 6:02 AM EDT [facility] Comment: In the event of poor peripheral blood flow, venous or arterial blood should be used due to the potential of erroneous results. Notified Nurse RBV Dressed Poultry Grader [phone] 10/11/2024 6:02 AM EDT [facility] Blood WHOLE BLOOD / Unknown 10/11/2024 5:59 AM EDT 10/11/2024 6:02 AM EDT Narrative [facility] - 10/11/2024 6:02 AM EDT Dressed Poultry Grader ID is - [id number] Brigitte Boone MD POINT OF CARE TEST ORDERABLES Final Result Performing Organization Address [facility] de Phone Number [facility] [address] [phone] * (ABNORMAL) Glucose, Nova Meter (10/10/2024 8:57 PM EDT) POC-GLUCOSE 240(H) 70 - 110 mg/dL 10/10/2024 8:58 PM EDT [facility] Comment: In the event of poor peripheral blood flow, venous or arterial blood should be used due to the potential of erroneous results. Notified Nurse RBV Dressed Poultry Grader [phone] 10/10/2024 8:58 PM EDT [facility] Blood WHOLE BLOOD / Unknown 10/10/2024 8:57 PM EDT 10/10/2024 8:58 PM EDT Narrative [facility] - 10/10/2024 8:58 PM EDT Dressed Poultry Grader ID is - [id number] us Brigitte Boone MD POINT OF CARE TEST ORDERABLES Final Result Performing Organization Address [facility] Co de Phone Number [facility] [address] [phone] * (ABNORMAL) PROBNP (10/10/2024 7:06 PM EDT) [facility] ProBNP (pg/mL) 815(H) 0 - 450 pg/mL 10/10/2024 7:28 PM EDT [facility] Blood Venipuncture / Unknown 10/10/2024 7:06 PM EDT 10/10/2024 7:06 PM EDT Brigitte Boone MD LAB BLOOD ORDERABLES Final Re sult [facility] [address] [phone] * Magnesium (10/10/2024 7:06 PM EDT) [facility] Magnesium 1.7 1.5 - 2.4 mg/dL 10/10/2024 7:28 PM EDT [facility] Blood Venipuncture / Unknown 10/10/2024 7:06 PM EDT 10/10/2024 7:06 PM EDT Brigitte Boone MD LAB BLOOD ORDERABLES Final Re sult [facility] [address] [phone] * (ABNORMAL) Comprehensive metabolic panel (10/10/2024 7:06 PM EDT) [facility] Sodium 132(L) 136 - 146 meq/L 10/10/2024 7:28 PM EDT [facility] Potassium 3.9 3.5 - 5.1 meq/L 10/10/2024 7:28 PM EDT [facility] Chloride 96(L) 102 - 112 meq/L 10/10/2024 7:28 PM EDT [facility] CO2 32 21 - 32 meq/L 10/10/2024 7:28 PM EDT [facility] Calcium 9.0 8.5 - 10.1 mg/dL 10/10/2024 7:28 PM [facility] Glucose 305(H) 74 - 106 mg/dL 10/10/2024 7:28 PM [facility] BUN 23(H) 7 - 22 mg/dL 10/10/2024 7:28 PM [facility] Creatinine 1.68(H) 0.55 - 1.02 mg/dL 10/10/2024 7:28 PM [facility] BUN/Creatinine 14 8 - 20 10/10/2024 7:28 PM [facility] Albumin 3.2(L) 3.4 - 5.0 g/dL 10/10/2024 7:28 PM [facility] Alkaline Phosphatase 99 27 - 136 U/L 10/10/2024 7:28 PM [facility] ALT 25 12 - 78 U/L 10/10/2024 7:28 PM [facility] AST 27 5 - 37 U/L 10/10/2024 7:28 PM [facility] Total Bilirubin 0.4 0.2 - 1.3 mg/dL 10/10/2024 7:28 PM [facility] Protein, Total 7.1 6.4 - 8.2 gm/dL 10/10/2024 7:28 PM [facility] Anion Gap 8(L) 9 - 20 10/10/2024 7:28 PM [facility] A/G Ratio 0.8(L) 1.1 - 2.5 10/10/2024 7:28 PM [facility] Globulin 3.9 1.5 - 4.5 g/dL 10/10/2024 7:28 PM [facility] Osmolality Calc 279.7 mOsm/kg 7:28 PM [facility] eGFR (mL/min/1.73m2) 30(L) >=60 mL/min/1.7 3m2 10/10/2024 7:28 PM [facility] Comment:ESTIMATED GFR IS NOT ACCURATE CREATININE CLEARANCE IN PREDICTING GLOMERULAR FILTRATION RATE. ESTIMATED GFR IS NOT APPLICABLE FOR DIALYSIS PATIENTS. Blood Venipuncture / Unknown 10/10/2024 7:06 PM EDT 10/10/2024 7:06 PM EDT Brigitte Boone MD LAB BLOOD ORDERABLES Final Re sult Performing Organization Address [facility]/ZIP Co de Phone Number [facility] [address] [phone] * PT/INR, PTT (10/10/2024 7:06 PM EDT) aPTT 24.0 22.0 - 32.0 seconds 10/10/2024 7:23 PM EDT [facility] Protime 11.0 9.0 - 12.0 seconds 10/10/2024 7:23 PM EDT [facility] INR 1.01 0.80 - 1.10 10/10/2024 7:23 PM EDT [facility] Blood Venipuncture / Unknown 10/10/2024 7:06 PM EDT 10/10/2024 7:06 PM EDT Brigitte Boone MD LAB BLOOD ORDERABLES Final Re sult Performing Organization Address [facility] Co de Phone Number [facility] [address] [phone] * C-Reactive Protein (10/10/2024 7:06 PM EDT) CRP 0.60 0.00 - 0.90 mg/dL 10/10/2024 7:28 PM EDT [facility] Blood Venipuncture / Unknown 10/10/2024 7:06 PM EDT 10/10/2024 7:06 PM EDT Brigitte Boone MD LAB BLOOD ORDERABLES Final Re sult Performing Organization Address City/[facility]/ZIP Co de Phone Number [facility] [address] [place], [place] [address] [phone] * Procalcitonin (10/10/2024 7:06 PM EDT) Pathologist [facility] Procalcitonin <0.14 <=0.50 ng/mL 10/10/2024 7:38 PM EDT [facility] Comment: Sepsis comment <0.5 Antibiotics [...] MD LAB BLOOD ORDERABLES Final Re sult [facility] [address] [phone] * (ABNORMAL) Glucose, [place] Meter (10/10/2024 5:41 PM EDT) Pathologist [facility] POC-GLUCOSE 345(H) 70 - 110 mg/dL 10/10/2024 5:42 PM EDT [facility] Comment: In the event of poor peripheral blood flow, venous or arterial blood should be used due to the potential of erroneous results. 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 sodium chloride flush 10 mL 10 mL [...] Given 10/13/2024 2:50 PM EDT 50 mg vancomycin (VANCOCIN) injection As needed, Starting on Wed10/11/24 at 1455, Intra-op Given 10/11/2024 2:45 PM EDT 1 g documented in this encounter Active and Recently [...] Infection 2151 (IVPB Started - Provider: Lana Thomas, MARIXA)2152 (IVPB Stopped - Provider: Lana Thomas RN) [...] patients*., Please choose an indication: Bone/Joint Infection 2323 (Given - Provider: Lana Thomas, RN) 2216 (Given - Provider: Mary Desai, MARIXA) insulin glargine-yfgn (SEMGLEE) solution 20 Units 20 Units Every Night, subcutaneous, First dose on Wed10/10/24 at 2100 2153 (Given - Provider: Lana Thomas, MARIXA) 2153 (Given - Provider: Mary Desai, MARIXA) insulin glargine-yfgn (SEMGLEE) solution 20 Units 20 Units Every morning, subcutaneous, First dose on Wed10/14/24 at 0600 0622 (Given - Provider: Mary Desai, MARIXA) insulin lispro (HUMALOG, ADMELOG) injection 0-6 Units 0-6 Units 4 times daily (before meals and nightly), subcutaneous, First dose on Wed10/10/24 at 1730, If Blood Sugar is less than 180 between 0957-7630, DO NOT give corrective insulin unless otherwise [...] Yelena Davenport RN)2153 (Given - Provider: Lana Thomas RN) 0545 (Given - Provider: Lana Thomas, RN)0756 (Not Given - Provider: Carolina Jordan, RN - Reason: Duplicate Order)1217 (Given - Provider: Carolina Jordan, MARIXA)1624 (Given - Provider: Carolina Jordan, MARIXA)2154 (Given - Provider: Mary Desai, RN) 0634 (Given - Provider: Mary Desai, RN)1250 (Given - Provider: Carolina Jordan, MARIXA) miconazole (MICOTIN) 2 % powder topical, 2 times daily, First dose on Wed10/11/24 at 2300 0845 (Given - Provider: Yelena Davenport, RN)215 (Given - Provider: Lana Thomas RN) 1137 (Not Given - Provider: Carolina Jordan RN - Reason: Medication/ Dose Unavailable)2153 (Given - Provider: Mary Desai RN) 1041 (Given - Provider: Carolina Jordan, RN) PRN Medication Order 10/12/2024 10/13/2024 10/14/2024 acetaminophen (TYLENOL) tablet 1,000 mg 1,000 mg Every 6 hours PRN, oral, fever greater than or equal to 38C, Starting on Wed10/10/24 at 1646, Recommended maximum dose of acetaminophen is 4000 mg from all sources in 24 hours 1624 (Given - Provider: Carolina Jordan RN) 1508 (Given - Provider: Carolina Jordan, [...] Jordan, RN)2153 (Given - Provider: Mary Desai, RN) 1041 (Given - Provider: Carolina Jordan, RN) Linked Groups Order Group 1: ondansetron [...] documented as of this encounter Care Teams [employer] Relationship Specialty Start Date End Date Roe Norma Sue, RETAIL AIDE [address] [facility] [place] [address] PCP - General Nurse Practitioner 08/23/24 documented as of this encounter
--- OUTSIDE RECORDS SUMMARY | 2024-10-25 09:45 | XMS_ITS | Encounter Summary ---
Author Organization [employer] ([place], [place], [place], [place]) Address [address] [place] [address] Care Team Providers Care Reinforcing Steel Worker Name Role Phone Story, Norma Reynolds APRN Primary Care Provider [phone] Encounter Details Date Type Department Care Team (Late st Contact Info) Description 10/25/2024 9:45 AM EDT Office Visit [facility] Surgery - [employer] [address] [place] [address] David Bernal MD [address] [place] [address] Foreign body of knee with infection, right, subsequent encounter (Primary Dx) Social History Tobacco Use Types Packs/Day Years [...] harm? Never 10/10/2024 How often does anyone, inclu ding family and friends, scream or curse at [...] Do you speak a language other than [place] [facility]? No 10/10/2024 Do you want help [...] Sign Reading Time Taken Comments Blood Pressure 120/70 10/25/2024 9:39 AM EDT Pulse 76 10/25/2024 9:39 AM EDT Temperature - - Respiratory Rate - - Oxygen Saturation - - Inhaled Oxygen Concentration - - Weight 114.8 kg (253 lb) 10/25/2024 9:39 AM EDT Height - - Body Mass Index 44.83 10/10/2024 5:00 PM EDT documented in this encounter Progress Notes * David Bernal MD - 10/25/2024 9:45 AM EDT General Surgery Consultation Referring provider: Norma Au, ENERGY ECONOMIST HPI: Denisa Sanon is a 84 y.o. female who recently had a knee replacement which was complicated with postop infection. She was taken by Dr. Olmos for a washout. She has since been discharged to a [facility] facility and has been on antibiotics. She denies any other symptoms no abdominalpain no issues with her knee she feels like the pain is improving. Past Medical History: Diagnosis Date Arthritis Asthma [...] AND CLOSURE, POST TOTAL KNEE REPLACEMENT; Surgeon: Kiran Olmos MD; Location: [facility]; Service: Orthopedic Surgery; Laterality: Right; Procedure on Brain Mass removed. TONSILLECTOMY Patient Active Problem List Diagnosis Asthma Chronic hypoxic respiratory failure (HCC) CKD (chronic kidney disease) COPD (chronic obstructive pulmonary disease) (HCC) CAD (coronary artery disease) DM (diabetes mellitus) (HCC) Hyperlipemia HTN (hypertension) MARCELA (obstructive sleep apnea) Obesity, morbid, BMI 40.0-49.9 (HCC) Osteoarthritis, knee Joint infection ([facility]) Post op infection Current Outpatient Medications Medication Sig Dispense Refill acetaminophen (TYLENOL) 325 MG tablet Take 2 tablets (650 mg total) by mouth every 6 (six) hours asneeded. albuterol 2.5 mg /3 mL (0.083 %) [...] theskin 3 (three) times daily before meals. Lantus Solostar U-100 Insulin 100 unit/mL (3 mL) inpn Inject 40 Units under the skin 2 (two) times daily. mupirocin (BACTROBAN) 2 % ointment 1 Application 3 (three) times daily. ondansetron (ZOFRAN) 4 MG tablet Take 1 tablet (4 mg total) by mouth every 8 (eight) hours as needed for nausea. OXYGEN-AIR DELIVERY SYSTEMS MISC 2 liter at night time. . spironolactone (ALDACTONE) 25 MG tablet Take 1 tablet (25 mg total) by mouth daily. torsemide (DEMADEX) 100 MG tablet Take 0.5 tablets (50 mg total) by mouth daily. No current facility-administered medications for this visit. Allergies Allergen Reactions Codeine Hives Can't remember Latex Dermatitis Patient can't remember Penicillin Hives Byetta [Exenatide] Can't remember Cephalosporins Patient can't remember-given in OR 08/24/24. No reaction reported. Doxycycline Patient can't remember Glyburide Patient can't remember Levaquin [Levofloxacin] Patient can't remember Levbid [Hyoscyamine Sulfate] Patient can't remember Oxycodone Can't remember Percodan [Oxycodone-Aspirin] Patient can't remember Sulfa (Sulfonamide Antibiotics) Patient can't remember SOCIAL HISTORY Social History Socioeconomic History Marital status: / Spouse name: Not on file Number of children: Not on file Years of education: Not on file Highest education level: Not on file Occupational History Not on file Tobacco Use Smoking status: Former Types: Cigarettes Smokeless tobacco: Never Tobacco comments: Patient was a 3 ppd smoker x 20 years. Stopped smoking in Vaping Use Vaping status: Never Used Substance and Sexual Activity Alcohol use: Never Drug use: Never Sexual activity: Not on file Other Topics Concern Not on file Social History Narrative Not on file Social Drivers of Health Food Insecurity: No Food Insecurity (10/10/2024) Food Insecurity Food run out past 12 months: Never true Food did not last past 12 months: Never true Transportation: No Transportation Needs (10/10/2024) Transportation Needs Transportation unreliable past 12 months: No FAMILY HISTORY No family history on file. REVIEW OF SYSTEMS Review of Systems Pertinent review of systems performed, all were negative of concerning findings PHYSICAL EXAMINATION: GENERAL: She is well developed, well nourished and in no acute distress. VITAL SIGNS: Vitals: 10/25/24 0939 BP: 120/70 Pulse: 76 Weight: 114.8 kg (253 lb) Body mass index is 44.83 kg/m??. Right knee: Clean yesenia dressing, no evidence of erythema or cellulitis Component Value Date/Time WBC 8.3 10/14/2024 0407 HGB 12.7 10/14/2024 0407 HCT 38.6 10/14/2024 0407 PLT 250 10/14/2024 0407 PROTIME 11.0 10/10/2024 1906 INR 1.01 10/10/2024 1906 NA 136 10/14/2024 0407 NA 137 10/11/2024 0621 K 4.1 10/14/2024 0407 K 3.8 10/11/2024 0621 CL 102 10/14/2024 0407 CO2 32 10/14/2024 0407 BUN 35 (H) 10/14/2024 0407 CREATININE 1.29 (H) 10/14/2024 0407 HGBA1C 7.7 (H) 08/09/2024 1120 PROT 7.1 10/10/2024 1906 ALBUMIN 3.2 (L) 10/10/2024 1906 CALCIUM 8.4 (L) 10/14/2024 0407 BILITOT 0.4 10/10/2024 1906 OSMOLALITY 286.2 10/14/2024 0407 AST 27 10/10/2024 1906 ALT 25 10/10/2024 1906 ALKPHOS 99 10/10/2024 1906 ASSESSMENT: 84-year-old female status post right knee replacement with postoperative infection status post washout PLAN No general surgery issues here. The wound seems to be healing well. She can follow-up with her orthopedic surgeon and infectious disease. David Bernal DO [facility] [address] [place] [address] [address] [place] [address] 9:52 AM 10/25/2024 documented in this encounter Plan of Treatment Not on file documented as of this encounter Visit Diagnoses Diagnosis Foreign body of knee with infection, right, subsequent encounter- Primary documented in this encounter Additional Health Concerns Infection Onset Date Last Indicated Resolved Time MRSA (C) 10/14/2024 10/14/2024 documented as of this encounter Care Teams Reinforcing Steel Worker Relationship Specialty Start Date End Date Roe, Norma Gail, ENERGY ECONOMIST [address] [facility] [place] [address] PCP - General Nurse Practitioner 08/23/24 documented as of this encounter
--- OUTSIDE RECORDS SUMMARY | 2024-10-30 11:36 | XMS_ITS ---
Author Organization [facility] Address [address] [place] [address] [place] [address] Phone Care Team Providers Care Projector Operator Name Role Phone Donaldo BRIONES, David Ortega Unavailable [phone] Conditions or Problems Problem Name Problem Code Onset Date Status Entry Date Provider Comment Standard Description Annotate Fall risk [id number] (SNOMED CT) Active Sean Malagon At increased risk for falls Medications No information available. Medications Administered No information available. Allergies, Adverse Reactions, Alerts No information available. Results Date Name Value Unit Range Flag Description Office Visit: Office Visit:r m9 HFU FALLRSKASSES yes Fall ris k assessment MEDS REVIEW Done Documenta tion of current medications (procedure) ORALTOBACUSE Never Tobacco smoking status SMOK STATUS Former smoker Tob acco smoking status Plan of Care Type Date Detail Appointment 02:45 PM David shrestha MD, [facility], [address], [place], [address], Procedures Code Procedure Name Date Entry Date G2211 Complex E&M visit add-on (G2211) Vital Signs Date Name Value Unit Description BMI (Body Mass Index) 46.27 kg/m2 Bod y Mass Index (Ratio) Body Temperature 97.8 [degF] temperat ure E&M BP Diastolic 80 mm[Hg] blood pressu re, diastolic BP Systolic 160 mm[Hg] blood pressur e, systolic Heart Rate 78 /min pulse rate Height 62 [in_us] height E&M Respiratory Rate 18 /min respirat ory rate E&M Weight Measured 253 [lb_av] weight E& M Weight Measured 253 [lb_av] weight E& M Immunizations No information available. Advance Directives Directive Description Start Date NO ADVANCED DIRECTIVES AT THIS TIME 2024
--- OUTSIDE RECORDS SUMMARY | 2024-11-09 10:41 | XMS_ITS ---
Author Organization [facility] Address [address] [place] [address] [place] [address] Phone Care Team Providers Care Sales Solutions Representative Name Role Phone Donaldo BRIONES, David Ortega Unavailable [phone] Conditions or Problems No information available. Medications Medication Instructions Start Date Stop Date Generic Name [facility][NOTE 3] Provider DOXYCYCLINE MONOHYDRATE 100 MG TABS Take 1 tablet by mouth twice a day 4 doxycycline monohydrate [id number] David Fulton MD CEFUROXIME AXETIL 250 MG TABS Take 1 tablet by mouth twice a day 4 cefuroxime axetil [id number] David Fulton MD Medications Administered No information available. Allergies, Adverse Reactions, Alerts No information available. Results Date Name Value Unit Range Flag Description Office Visit: Office Visit:[email or web address] [email or web address] MEDS REVIEW Done Documenta tion of current medications (procedure) ORALTOBACUSE Never Tobacco smoking status SMOK STATUS Former smoker Tob acco smoking status Plan of Care Type Date Detail Appointment 02:45 PM David shrestha MD, [address] [facility], [address], [place], [address], Procedures Code Procedure Name Date Entry Date G2211 Complex E&M visit add-on (G2211) Vital Signs Date Name Value Unit Description BMI (Body Mass Index) 44.81 kg/m2 Bod y Mass Index (Ratio) Body Temperature 97.4 [degF] temperat ure E&M BP Diastolic 80 mm[Hg] blood pressu re, diastolic BP Systolic 154 mm[Hg] blood pressur e, systolic Heart Rate 83 /min pulse rate Height 62 [in_us] height E&M Respiratory Rate 16 /min respirat ory rate E&M Weight Measured 245 [lb_av] weight E& M Weight Measured 245 [lb_av] weight E& M Immunizations No information available. Advance Directives No information available.
--- OUTSIDE RECORDS SUMMARY | 2024-11-24 08:40 | XMS_ITS | Continuity of Care Document ---
Author Organization [facility] Address [address] [place] [address]- Encounter 10/11/24 - 11/24/24 [facility] [address] [place] [address]- [place] Problem List Condition Confirmation Course Effective Dates Status Health St atus Informant Morbid obesity Confirmed Active Vital Signs Most recent to oldest [Reference Range]: 1 Respiratory Rate [14-20 br/min] 22 br/mi n *HI* (10/14/24 9:18 AM) Blood Pressure [90-120/60-80 mmHg] 145/6 2mmHg *HI* (10/14/24 9:18 AM) Pulse Sitting [60-100 bpm] 65 bpm (10/14/24 9:18 AM) Temperature (Route Not Specified) 36.3 d egC (10/14/24 9:18 AM) Patient Care team information Care Team Personnel Name: MARIXA Lucia, Shima Position: Nurse - CKD Member Role: Design Manager
[2024-11-25] VITALS (10 sets, daily range): BP systolic 131–163; BP diastolic 63–128; PULSE 84–90; RESP 16; TEMP 36.6; O2SAT 89–96; BMI 43.4
--- NOTE | 2024-11-25 21:53 | ED_ITS ---
Discharge Plan Disposition Patient Disposition: Admitted Condition: Fair Prescriptions Prescriptions: No Action allopurinol 100 mg tablet 100 mg PO DAILY 30 Days Qty: 30 0RF spironolactone 25 mg tablet 25 mg PO DAILY 30 Days Qty: 30 0RF fluticasone propion-salmeterol [Advair Diskus] 500-50 mcg/dose blister with device 1 inh inhalation BIDRT Qty: 60 0RF albuterol sulfate 90 mcg/actuation HFA aerosol inhaler 4 inh inhalation Q4HP PRN (Reason: shortness of breath or wheezing) 30 Days Qty: 8.5 0RF Rx Instructions: 4 puffs every 4 hours for 48 hours then as needed for shortness of breath or wheezing following insulin aspart U-100 [Novolog FlexPen U-100 Insulin] 100 unit/mL (3 mL) insulin pen 10 unit SQ TID 30 Days Qty: 9 0RF Patient Comments: INJECT 15 UNITS UNDER THE SKIN THREE TIMES DAILY insulin glargine [Lantus Solostar U-100 Insulin] 100 unit/mL (3 mL) insulin pen 25 unit SQ BID 30 Days Qty: 15 0RF Patient Comments: INJECT 40 UNITS UNDER SKIN TWO TIMES DAILY cholecalciferol (vitamin D3) 50 MCG tablet,chewable 50 mcg PO DAILY 30 Days Qty: 30 0RF tramadol 50 mg tablet 50 mg PO BIDP PRN (Reason: Severe Pain (Scale Score 7-10)) 30 Days Qty: 60 0RF torsemide 100 MG tablet 50 mg PO DAILY 30 Days Qty: 15 0RF Referrals Follow up/Referrals: Norma Au APRN [Primary Care Provider, Medical] - See instructions Clinical Impressions Clinical Impression: Falls frequently Print Language Print Language: Swazi Discharge ED Provider: Tova Solorio General Adult HPI <Tova Soolrio DO - Last Filed: 11/26/24 00:26> General Chief complaint: Weakness Stated complaint: weakness Time Seen by Provider: 11/25/24 21:53 History of Present Illness HPI narrative: Patient is an 84-year-old female with a past medical history of diabetes, recent right knee surgery who presented to the emergency department with concern for falls at home. Patient is accompanied by her cousin as well as her best friend. Patient had 2 falls today and has had 5 falls since being discharged home from a nursing facility. Patient recently went to a nursing facility after her right knee was replaced and fixed. Patient states that she has mechanical falls at home and has been feeling more weak than usual. Patiently is currently complaining of pain in her right hip but denies any other extremity pain. Patient denies any headache or vision changes. Patient denies any chest pain or shortness of breath. Patient denies any abdominal pain nausea vomiting or diarrhea. Patient fell earlier today was on the floor from 8 AM to 5 PM until her friend found her on the floor. Patient is agreeable to be admitted and evaluated by physical therapy for possible placement given that patient lives at home alone. Related Data Previous Rx's ?Medication ?Instructions ?Recorded albuterol sulfate 90 mcg/actuation 4 inh inhalation Q4 HP PRN 10/04/24 aerosol inhaler shortness of breath or wheez ing 30 days #8.5 grams allopurinol 100 mg tablet 100 mg PO DAILY 30 days #30 tabs 10/04/24 cholecalciferol (vitamin D3) 50 50 mcg PO DAILY 30 day s #30 tabs 10/04/24 mcg (2,000 unit) chewable tablet fluticasone 500 mcg-salmeterol 50 1 inh inhalation BID RT #60 ea 10/04/24 mcg/dose blistr powdr for inhalation (Advair Diskus) insulin aspart U-100 100 unit/mL 10 unit (0.1 mL) SQ T ID 30 days #9 10/04/24 (3 mL) subcutaneous pen (Novolog mL FlexPen U-100 Insulin aspart) insulin glargine 100 unit/mL (3 25 unit (0.25 mL) SQ B ID 30 days 10/04/24 mL) subcutaneous pen (Lantus #15 mL Solostar U-100 Insulin) spironolactone 25 mg tablet 25 mg PO DAILY 30 days #30 tabs 10/04/24 torsemide 100 mg tablet 50 mg (1/2 x 100 mg) PO ANAMIKA Y 30 10/04/24 days #15 tabs tramadol 50 mg tablet 50 mg PO BIDP PRN Severe Chapis n 10/04/24 (Scale Score 7-10) 30 days #60 tabs Allergies Allergy/AdvReac Type Severity Reaction Status Date / Time Penicillins Allergy Intermediate Unknown Verified 10/04/24 10:56 allergy reaction codeine (CODEINE) Allergy Mild Unknown Verified 10/04/24 10:56 allergy reaction iodine (IODINE) Allergy Mild Unknown Verified 10/04/24 10:56 allergy reaction latex (LATEX) Allergy Mild Unknown Verified 10/04/24 10:56 allergy reaction oxycodone (OXYCODONE) Allergy Mild Unknown Verified 10/04/24 10:56 allergy reaction Sulfa (Sulfonamide Allergy Mild Unknown Verified 10/04/24 10:56 Antibiotics) (SULFA allergy (SULFONAMIDE ANTIBIOTICS)) reaction Cephalosporins Allergy Unknown Verified 10/04/24 10:56 allergy reaction doxycycline Allergy Unknown Verified 10/04/24 10:56 allergy reaction exenatide (From [place]) Allergy Unknown Verified 10/04/24 10:56 allergy reaction glyburide Allergy Unknown Verified 10/04/24 10:56 allergy reaction hyoscyamine (From Levbid) Allergy Unknown Verified 10/04/24 10:56 allergy reaction levofloxacin (From Levaquin) Allergy Unknown Verified 10/04/24 10:56 allergy reaction PFSH <Tova Solorio, DO - Last Filed: 11/26/24 00:26> [facility] Disclaimer: The information contained in this section may have been updated after the patient was seen, as this information can be updated by other users. Medical History (Updated 11/26/24 @ 00:50 by Arron Woods MD) Obesity (BMI 30-39.9) History of smoking 25-50 pack years Stopped smoking with greater than 20 pack year history Asthma MARCELA (obstructive sleep apnea) Diabetes Brain tumor Diastolic dysfunction CAD (coronary artery disease) HTN (hypertension) COPD (chronic obstructive pulmonary disease) Surgical History H/O cardiac catheterization H/O: hysterectomy History of appendectomy Hx of tonsillectomy History of cholecystectomy H/O oophorectomy Family History Other Hypertension Stroke Social History (Updated 10/04/24 @ 02:57 by Jesika Emery RN) Smoking Status: Never smoker second hand exposure: No alcohol intake: never substance use type: denies use current occupational status: retired Travel in the last 8 weeks?: None household members: none housing: house caffeine: No Have you lived/traveled outside US in past 30 days?: No Contact w/someone who lives/traveled outside US past 30 days?: No Exposure to someone with infectious disease in past 14 days?: No Do you have a fever (greater than 100.4 F or 38 C)?: No Have you tested positive for COVID-19?: No Exposed to someone with COVID-19 in past 14 days?: No Do you have a sore throat?: No Do you have a cough?: No Do you have any weakness?: No Do you have any diarrhea?: No Are you experiencing any unusual bleeding?: No Do you have any muscle aches/pain?: No Do you have any abdominal pain?: No Are you experiencing loss of taste or smell?: No Other Medical History Have you received the Flu Vaccine for this season: No Have you received the Pneumonia Vaccine: No <Tova Solorio DO - Last Filed: 11/26/24 00:26> ROS Obtained: Yes All systems reviewed & no additional complaints except as documented and Yes Systems reviewed as appropriate & no additional complaints except as documented Physical Exam <Tova Solorio DO - Last Filed: 11/26/24 00:26> General General appearance: alert and in no apparent distress Head Head exam: atraumatic, normocephalic and normal inspection Eye Eye exam: Present normal appearance, PERRL and EOMI; Absent scleral icterus ENT ENT exam: Present normal exam and normal external ear exam Neck Neck exam: Present normal inspection and full ROM Chest Chest inspection: Present normal inspection and symmetric chest wall rise Respiratory Respiratory exam: Present normal lung sounds bilaterally; Absent respiratory distress or wheezes Cardiovascular Cardiovascular exam: Present regular rate, normal rhythm and normal heart sounds Abdominal Exam Abdominal exam: Present soft and distention; Absent tenderness, guarding or rebound Extremities Exam Extremities exam: Present normal inspection, full ROM and other (Right hip tenderness, no shortening of the lower extremities) Back Exam Back exam: Present normal inspection and full ROM Neurological Exam Neurological exam: Present alert and oriented X3 Psychiatric Psychiatric exam: Present normal affect and normal mood Skin Skin exam: Present warm, dry and other (Scattered bruising) Medical Decision Making <Tova Solorio DO - Last Filed: 11/26/24 00:26> Medical Records Medical records reviewed: Yes I reviewed the patient's medical records. Screening: Per USPSTF and CDC recommendations, given the prevalence of disease in our region, it is our hospital?s policy to screen for HIV and viral Hepatitis for all patients aged 18 and over and those with ongoing risk factors. One[place] Inquiry Pt receiving controlled substance: No Vital Signs: 11/25/24 21:57 11/25/24 21:59 11/25/24 22:00 Temperature 97.9 F Temperature Source Oral Pulse Rate 87 85 Pulse Rate [Right Radial] 87 Respiratory Rate 16 Blood Pressure 156/63 H 150/68 H Blood Pressure [Right Arm] 156/63 H Blood Pressure Mean [Right Arm] 94 Blood Pressure Source [Right Arm] Automatic Cuff Blood Pressure Position [Right Arm] Supine 02 Sat by Pulse Oximetry 94 L 95 94 L Oxygen Delivery Method Room Air 11/25/24 22:10 Temperature Temperature Source Pulse Rate 84 Pulse Rate [Right Radial] Respiratory Rate Blood Pressure 163/83 H Blood Pressure [Right Arm] Blood Pressure Mean [Right Arm] Blood Pressure Source [Right Arm] Blood Pressure Position [Right Arm] 02 Sat by Pulse Oximetry 94 L Oxygen Delivery Method Lab Data Lab results reviewed: Yes I reviewed the patient's lab results. Lab Results 11/25/24 22:47: Sodium 134 L, Potassium 5.3 H, Chloride 99, Carbon Dioxide 33 H, Anion Gap 7.3, BUN 28 H, Creatinine 1.10 H, Estimated Creat Clear 30, Estimated GFR 47 L, Est GFR ( Amer) 57 L, Glucose 186 H, Calcium 9.8, Phosphorus 3.8, Magnesium 2.0, Total Bilirubin 1.2, AST 45 H, ALT 20, Alkaline Phosphatase 57, Total Creatine Kinase 119, Troponin I 0.07 H, Total Protein 7.8, Albumin 4.2, Globulin 3.6 H, Albumin/Globulin Ratio 1.2 11/25/24 22:50: VBG pH 7.36, VBG pCO2 56.8 H, VBG pO2 51.8 H, VBG HCO3 31.7 H, V BG Total CO2 33.4 H, VBG O2 Saturation 85.6 H, VBG Base Excess 6.3 H, VBG Lactic Acid 1.9 11/25/24 23:15: WBC 7.2, RBC 4.89, Hgb 14.5, Hct 43.9, MCV 89.8, MCH 29.7, MCHC 33.0, RDW 13.7, Plt Count 236, MPV 9.5, Neut % (Auto) 74.9, Lymph % (Auto) 14.5, [place] % (Auto) 8.5, Eos % (Auto) 1.7, Baso % (Auto) 0.3, Neut # (Auto) 5.4, Lymph # (Auto) 1.0, [place] # (Auto) 0.6, Eos # (Auto) 0.1, Baso # (Auto) 0.0 11/25/24 23:15 11/25/24 22:47 Orders (Tests/Meds): ORDERS Category Date Time Status CT bony pelvis Stat Cat Scan 11/26/24 00:[address] cervical spine wo con Stat Cat Scan 11/25/24 22:[address] head/brain wo con Stat Cat Scan 11/25/24 22:23 Completed CXR --portable [XR chest portable] Stat Exams 11/25/24 22:23 Completed Pelvis XR 1-2 views [XR pelvis 1-2V] Stat Exams 11/25/24 22:23 Completed CBC w/Auto Diff [Complete Blood Count Auto Diff] Stat Lab 11/25/24 23:15 Completed CK [Creatine Kinase] Stat Lab 11/25/24 22:47 Completed CMP [Comprehensive Metabolic Panel] Stat Lab 11/25/24 22:47 Completed MAG [Magnesium] Stat Lab 11/25/24 22:47 Completed PHOS [Phosphorous] Stat Lab 11/25/24 22:47 Completed Trop I [Troponin I] Stat Lab 11/25/24 22:47 Completed Troponin I Q3H Lab 11/26/24 01:30 Ordered Troponin I Q3H Lab 11/26/24 04:30 Ordered UA [Urinalysis and Microscopic] Stat Lab 11/25/24 22:24 Ordered Urine Culture Stat Micro 11/25/24 22:24 Ordered VBG [Venous Blood Gas] Stat RT 11/25/24 22:50 Completed Medical Decision Narrative: Patient is an 84-year-old female who presented to the emergency department for generalized weakness, frequent falls at home. On arrival, patient was hemodynamically stable with unremarkable Eitel signs. Differential includes but not limited to: ACS/MS, electrolyte abnormalities, arrhythmia, intracranial hemorrhage, dehydration, pneumonia, fracture, dislocation, sprain, strain, amongst others. Patient's labs were reviewed and interpreted by myself, CBC showed no leukocytosis, hemoglobin was stable. VBG showed no significant acidosis, CO2 mildly elevated at 56. CMP showed mildly elevated potassium of 5.3, otherwise unremarkable. Initial troponin 0.07 however chronically elevated and is at baseline per the patient. Magnesium normal. Phosphorus normal. CK normal. Patient's EKG was reviewed and interpreted by myself and showed normal sinus rhythm at [address] or T wave changes concerning for ischemia. Patient CT head and CT scleral skull spine were reviewed and interpreted by myself and showed no acute pathology. Patient's chest x-ray was reviewed and interpreted by myself and showed no acute pathology. Pelvis x-ray per my interpretation did not show any acute pathology however there is some rotational component of the left hip, CT bony pelvis was obtained to further elucidate whether there is a left hip fracture. Given patient's significant weakness at home and frequent falls anticipate the patient will need to be admitted to the hospital. Patient was signed out to Dr. Woods pending final imaging and disposition. <Arron Woods MD - Last Filed: 11/26/24 00:51> Vital Signs: 11/25/24 21:57 11/25/24 21:59 11/25/24 22:00 Temperature 97.9 F Temperature Source Oral Pulse Rate 87 85 Pulse Rate [Right Radial] 87 Respiratory Rate 16 Blood Pressure 156/63 H 150/68 H Blood Pressure [Right Arm] 156/63 H Blood Pressure Mean [Right Arm] 94 Blood Pressure Source [Right Arm] Automatic Cuff Blood Pressure Position [Right Arm] Supine 02 Sat by Pulse Oximetry 94 L 95 94 L Oxygen Delivery Method Room Air 11/25/24 22:10 Temperature Temperature Source Pulse Rate 84 Pulse Rate [Right Radial] Respiratory Rate Blood Pressure 163/83 H Blood Pressure [Right Arm] Blood Pressure Mean [Right Arm] Blood Pressure Source [Right Arm] Blood Pressure Position [Right Arm] 02 Sat by Pulse Oximetry 94 L Oxygen Delivery Method Lab Data Lab Results 11/25/24 22:47: Sodium 134 L, Potassium 5.3 H, Chloride 99, Carbon Dioxide 33 H, Anion Gap 7.3, BUN 28 H, Creatinine 1.10 H, Estimated Creat Clear 30, Estimated GFR 47 L, Est GFR ( Amer) 57 L, Glucose 186 H, Calcium 9.8, Phosphorus 3.8, Magnesium 2.0, Total Bilirubin 1.2, AST 45 H, ALT 20, Alkaline Phosphatase 57, Total Creatine Kinase 119, Troponin I 0.07 H, Total Protein 7.8, Albumin 4.2, Globulin 3.6 H, Albumin/Globulin Ratio 1.2 11/25/24 22:50: VBG pH 7.36, VBG pCO2 56.8 H, VBG pO2 51.8 H, VBG HCO3 31.7 H, V BG Total CO2 33.4 H, VBG O2 Saturation 85.6 H, VBG Base Excess 6.3 H, VBG Lactic Acid 1.9 11/25/24 23:15: WBC 7.2, RBC 4.89, Hgb 14.5, Hct 43.9, MCV 89.8, MCH 29.7, MCHC 33.0, RDW 13.7, Plt Count 236, MPV 9.5, Neut % (Auto) 74.9, Lymph % (Auto) 14.5, [place] % (Auto) 8.5, Eos % (Auto) 1.7, Baso % (Auto) 0.3, Neut # (Auto) 5.4, Lymph # (Auto) 1.0, [place] # (Auto) 0.6, Eos # (Auto) 0.1, Baso # (Auto) 0.0 Orders (Tests/Meds): ORDERS Category Date Time Status CT bony pelvis Stat Cat Scan 11/26/24 00:[address] cervical spine wo con Stat Cat Scan 11/25/24 22:[address] head/brain wo con Stat Cat Scan 11/25/24 22:23 Completed CXR --portable [XR chest portable] Stat Exams 11/25/24 22:23 Completed Pelvis XR 1-2 views [XR pelvis 1-2V] Stat Exams 11/25/24 22:23 Completed CBC w/Auto Diff [Complete Blood Count Auto Diff] Stat Lab 11/25/24 23:15 Completed CK [Creatine Kinase] Stat Lab 11/25/24 22:47 Completed CMP [Comprehensive Metabolic Panel] Stat Lab 11/25/24 22:47 Completed MAG [Magnesium] Stat Lab 11/25/24 22:47 Completed PHOS [Phosphorous] Stat Lab 11/25/24 22:47 Completed Trop I [Troponin I] Stat Lab 11/25/24 22:47 Completed Troponin I Q3H Lab 11/26/24 01:30 Ordered Troponin I Q3H Lab 11/26/24 04:30 Ordered UA [Urinalysis and Microscopic] Stat Lab 11/25/24 22:24 Ordered Urine Culture Stat Micro 11/25/24 22:24 Ordered VBG [Venous Blood Gas] Stat RT 11/25/24 22:50 Completed Medical Decision Narrative: Patient is an 84-year-old female who presented to the emergency department for generalized weakness, frequent falls at home. On arrival, patient was hemodynamically stable with unremarkable Eitel signs. Differential includes but not limited to: ACS/MS, electrolyte abnormalities, arrhythmia, intracranial hemorrhage, dehydration, pneumonia, fracture, dislocation, sprain, strain, amongst others. Patient's labs were reviewed and interpreted by myself, CBC showed no leukocytosis, hemoglobin was stable. VBG showed no significant acidosis, CO2 mildly elevated at 56. CMP showed mildly elevated potassium of 5.3, otherwise unremarkable. Initial troponin 0.07 however chronically elevated and is at baseline per the patient. Magnesium normal. Phosphorus normal. CK normal. Patient's EKG was reviewed and interpreted by myself and showed normal sinus rhythm at [address] or T wave changes concerning for ischemia. Patient CT head and CT scleral skull spine were reviewed and interpreted by myself and showed no acute pathology. Patient's chest x-ray was reviewed and interpreted by myself and showed no acute pathology. Pelvis x-ray per my interpretation did not show any acute pathology however there is some rotational component of the left hip, CT bony pelvis was obtained to further elucidate whether there is a left hip fracture. Given patient's significant weakness at home and frequent falls anticipate the patient will need to be admitted to the hospital. Patient was signed out to Dr. Woods pending final imaging and disposition. Woods: Upon my assumption of care patient is stable, resting comfortably, I personally interpreted CT pelvis and do not appreciate acute osseous injury, x-ray read is normal and does not comment on any osseous injury within the pelvis or hip so I anticipate the CT pelvis will also be normal. I agree with the assessment and plan overall from Dr. Solorio and anticipate this patient being admitted shortly. CT bony pelvis indeed does not demonstrate acute fracture, previously identified abnormalities are not acute and do not require acute intervention. Patient is appropriate for admission at this time. I discussed this case with the hospitalist, Adama, who graciously accepted the patient for admission due to frequent falls and need for placement. Patient was admitted in stable condition. Critical Care <Tova Solorio, - Last Filed: 11/26/24 00:26> Critical Care Time Critical Care Time: No
--- OUTSIDE RECORDS SUMMARY | 2024-11-25 21:56 | XMS_ITS | Encounter Summary ---
Author Organization [facility] ([place], [place], [place], [place]) Address [address] [place] [address] Care Team Providers Care Snuff Grinder Name Role Phone Norma Au APRN Primary Care Provider [phone] Encounter Details Date Type Department Care Team (Latest Contact Info) Description 10/10/2024 Travel Social History Tobacco Use Types Packs/Day [...] Date Record ed How often does anyone, vaniaaziza cyndi family and friends, physically hurt you? Never 10/10/2024 How often does anyone, vaniaaziza hanna family and friends, insult or talk down to you? Never 10/10/2024 How often does anyone, vaniaaziza hanna family and friends, threaten you with harm? Never 10/10/2024 How often does anyone, vaniaaziza hanna family and friends, scream or curse [...] Do you speak a language other than [place] at [facility]? No 10/10/2024 Do you want help [...] on filedocumented in this encounter Care Teams Snuff Grinder Relationship Specialty Start Date End Date Norma Au, REVENUE ENFORCEMENT AGENT [address] [place] [address] PCP - General Nurse Practitioner 08/23/24 documented as of this encounter
--- OUTSIDE RECORDS SUMMARY | 2024-11-25 21:56 | XMS_ITS | Clinical Summary ---
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 (ICD-10-CM ) 10/19 Active 10/19 Winifred Jorje Other specified bacterial agents as the cause of diseases classified elsewhere Anaerococcus infection B96.89 (ICD-10-CM ) 10/19 Active 10/19 Winifred Jorje Other specified bacterial agents as the cause of diseases classified elsewhere COPD 53572200 (SNOMED CT) 10/19 Active 10/19 Winifred Ojrje Chronic obstructive pulmonary disease MRSA infection 018673167 (SNOMED CT) 10/19 Active 10/19 Winifred Jorje Methicillin resistant Staphylococcus aureus infection Obesity, class 2, BMI 35 to <40 37199147 (SNOMED CT) 10/19 Active 10/19 Winifred Jorje Coronary arteriosclerosis Knee, right, subsequent encounter(s), infection/inf lammatory reaction due to internal joint prosthesis T84.53xD (ICD-10-CM ) 10/19 Active 10/19 Winifred Jorje Infection and inflammatory reaction due to internal right knee prosthesis, subsequent encounter Cellulitis of RLE 645927426 (SNOMED CT) 10/19 Active 10/19 Winifred Recinos Cellulitis of lower limb DM II with diabetic CKD, 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) E11.22 (ICD-10-CM ) 10/19 Active 10/19 Winifred Recinos Type 2 diabetes mellitus with diabetic chronic kidney disease Coronary artery disease (CAD) 90315910 (SNOMED CT) 10/19 Active 10/19 Winifred Recinos Coronary arteriosclerosis Hypertensive heart and CKD, benign, 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) 418732904 (SNOMED CT) 10/19 Active 10/19 Winifred Recinos Chronic diastolic heart failure Medications Medication Instructions Start Date Stop Date Generic Name NDC Provider daptomycin recon soln Cubicin 700mg Iv Q24hrs [facility] 11/09 daptomycin perla Chavez RN ceftriaxone recon soln Rocephin 2G IV q24hrs -- [facility] 11/09 ceftriaxone perla Chavez RN DOXYCYCLINE MONOHYDRATE 100 MG TABS Take 1 tablet by mouth twice a day 11/27 doxycycline monohydrate 36271259147 David Fulton MD CEFUROXIME AXETIL 250 MG TABS Take 1 tablet by mouth twice a day 11/27 cefuroxime axetil 21555624951 David Fulton MD ceftriaxone recon soln Rocephin 2G IV q24hrs -- [facility] 11/09 ceftriaxone recon soln Becca Landrum daptomycin recon soln Cubicin 700mg Iv Q24hrs [facility] 11/09 daptomycin recon kadeem Chavez RN TORSEMIDE 100 MG TABS Take 0.5 tablets (50 mg total) by mouth daily. torsemide [id number] [facility] SPIRONOLACTONE 25 MG TABS Take 1 tablet (25 mg total) by mouth daily. spironolactone 86479578251 QIE qieuse r OXYGEN-AIR DELIVERY SYSTEMS MISC 2 liter at night time. . 11/09 OXYGEN-AIR DELIVERY SYSTEMS MISC [facility] ONDANSETRON HCL 4 MG TABS Take 1 tablet (4 mg total) by mouth every 8 (eight) hours as needed for nausea. ondansetron hcl 65052405198 [facility] MUPIROCIN 2 % OINT 1 Application 3 (three) times daily. mupirocin 72498906961 [facility] VITAMIN D3 50 MCG (2000 UT) TABS Take 1 tablet (2,000 Units total) by mouth daily. cholecalciferol (vitamin d3) 74878374980 [facility] ALLOPURINOL 100 MG TABS Take 1 tablet (100 mg total) by mouth daily. allopurinol 43852975527 [facility] ALBUTEROL SULFATE HFA 108 (90 Base) MCG/ACT AERS Inhale 2 puffs by mouth every 6 (six) hours as needed for shortness of breath or wheezing. 11/09 albuterol sulfate 90632087408 [facility] ALBUTEROL SULFATE (2.5 MG/3ML) 0.083% NEBU Inhale 3 mLs (2.5 mg total) by nebulization every 4 (four) hours as needed for wheezing or shortness of breath. 10/23 albuterol sulfate 91105542904 [facility] ACETAMINOPHEN 325 MG TABS Take 2 tablets (650 mg total) by mouth every 6 (six) hours as needed. 10/23 acetaminophen 07170237752 [facility] daptomycin recon kadeem Cubicin 700mg Iv Q24hrs [facility] 10/23 daptomycin recon kadeem Crocker Medications Administered No information available. Allergies, Adverse Reactions, Alerts Allergy Name Reaction Description Start Date Severity Statu s Provider SULFA (SULFONAMIDE ANTIBIOTICS) Mild Active Siomara Dunn PENICILLIN Hives Critical Active Siomara Swe eney OXYCODONE-ASPIRIN Mild Active E lla Dunn OXYCODONE Mild Active Siomara Swee kodi LEVOFLOXACIN Mild Active Siomara S weeney LATEX Dermatitis Critical Active Siomara Swe eney HYOSCYAMINE SULFATE Mild Active Siomara Dunn GLYBURIDE Mild Active Siomara Swee kodi EXENATIDE Mild Active Siomara Swee kodi DOXYCYCLINE Mild Active Siomara Sw lloydney CODEINE Hives Critical Active Siomara Swee kodi CEPHALOSPORINS Mild Active Siomara Dunn Results Date Name Value Unit Range Flag Description Office Visit: Office Visit:r m9 HFU FALLRSKASSES yes Fall ris k assessment Chart Maintenance ESR 130 mm/h Erythrocyte sedimentation rate by Westergren method PLATELETS 106 10*3/mm3 Platelets [#/volume] in Blood by Automated count HCT 45.3 % Hematocrit [V olume Fraction] of Blood by Automated count HGB 14.8 g/dL Hemoglobin [Mass/volume] in Blood RBC 4.91 10*6/mm3 Erythrocytes [#/volume] in Blood by Automated count WBC 8.0 10*3/mm3 Leukocytes [ #/volume] in Blood by Automated count CPK 105 U/L Creatine harvey se [Enzymatic activity/volume] in Serum or Plasma CRP 8.7 mg/dL C reactive pr otein [Mass/volume] in Serum or Plasma BILI TOTAL 0.4 mg/dL Bilirubin. total [Mass/volume] in Serum or Plasma SGOT (AST) 21 U/L Aspartate aminotransferase [Enzymatic activity/volume] in Serum or Plasma SGPT (ALT) 17 U/L Alanine aminotransferase [Enzymatic activity/volume] in Serum or Plasma ALK PHOS 68 U/L Alkaline denis sphatase [Enzymatic activity/volume] in Blood CREATININE 1.4 mg/dL Creatinine [Mass/volume] in Serum or Plasma BUN 42 mg/dL Urea nitrogen [Mass/volume] in Serum or Plasma CALCIUM 9.5 mg/dL Calcium [Mole s/volume] in Serum or Plasma POTASSIUM 4.7 mmol/L Potassium [Moles/volume] in Serum or Plasma SODIUM 140 mmol/L Sodium [Moles /volume] in Serum or Plasma GLUCOSE SER 229 mg/dL Glucose [ Mass/volume] in Serum or Plasma Office Visit: Office Visit:r m8 MEDS REVIEW Done Documenta tion of current medications (procedure) ORALTOBACUSE Never Tobacco smoking status SMOK STATUS Former smoker Tobacco smoking status Plan of Care Type Date Detail Appointment 02:45 PM David shrestha MD, [facility], [facility] [address], [place], [address], Pending order BMP Pending order CBC with Differe ntial Pending order C- reactive prot ein Pending order Continue IV anti biotics Pending order Continue oral an tibiotics Pending order Weekly PICC Line Care Pending order Weekly Labs (Con tinue) Pending order New IV antibioti c Procedures Code Procedure Name Date Entry Date G21 Complex E&M visit add-on (G2211) G2211 Complex E&M visit add-on (G2211) Vital [...]
--- OUTSIDE RECORDS SUMMARY | 2024-11-25 21:57 | XMS_ITS | Encounter Summary ---
Author Organization [employer] ([place], [place], [place], [place]) Address [address] [place] [address] Care Team Providers Care Recreation Technician Name Role Phone Roe, Norma Reynolds APRN Primary Care Provider [phone] Encounter Details Date Type Department Care Team (Late st Contact Info) Description 10/11/2024 Surgery Prep [facility] Surgery Department [address] [place] [address] Kiran Olmos MD [address] [facility] 2nd [place] [address] Social History Tobacco Use Types Packs/Day Years Used Date Smoking Tobacco: Former Cigarettes Smokeless Tobacco: Never Comments:Patient was a 3 ppd smoker x 20 years. Stopped smoking in Alcohol Use Standard Drinks/Week Comments Never 0 (1 standard drink = 0.6 oz pur e alcohol) Utilities Answer Date Recorded In the past 12 months, has t he [employer], gas, oil, or water [employer] threatened to shut off services in your [...] Do you speak a language other than Yemeni at [facility]? No 10/10/2024 Do you want help [...] on file documented as of this encounter Progress Notes * Kiran Olmos MD - 10/11/2024 6:51 AM EDT Subjective Review of Systems Objective Last Recorded Vitals There were no vitals taken for this visit. Physical Exam Labs: No results found for this visit on 10/11/24 (from the past 24 hours). CT lower extremity without IV contrast right [...] Transcribed by Yesenia Cano PA-C. Assessment Plan Discharge Planning: documented in this encounter Plan of Treatment Not on file documented as of this encounter Visit Diagnoses Not on filedocumented in this encounter Additional Health Concerns Infection Onset Date Last Indicated Resolved Time MRSA (C) 10/14/2024 10/14/2024 documented as of this encounter Care Teams Recreation Technician Relationship Specialty Start Date End Date Norma Au SALVATIONIST [address] [facility] [address] [facility] [place] [address] PCP - General Nurse Practitioner 08/23/24 documented as of this encounter
--- OUTSIDE RECORDS SUMMARY | 2024-11-25 21:57 | XMS_ITS | Encounter Summary ---
Author Organization [employer] ([place], [place], [place], [place]) Address [address] [place] [address] Care Team Providers Care Manager Of Merchandising Name Role Phone Roe, Norma Reynolds APRN Primary Care Provider [phone] Encounter Details Date Type Department Care Team (Late st Contact Info) Description 08/23/2024 Surgery Prep [facility] Surgery Department [address] [place] [address] Kiran Olmos MD [address] [facility] 2nd [place] [address] Social History Tobacco Use Types Packs/Day Years Used Date Smoking Tobacco: Former Cigarettes Smokeless Tobacco: Never Comments:Patient was a 3 ppd smoker x 20 years. Stopped smoking in Alcohol Use Standard Drinks/Week Comments Never 0 (1 standard drink = 0.6 oz pur e alcohol) Utilities Answer Date Recorded In the past 12 months, has t he [employer], gas, oil, or water [employer] threatened to shut off services in your [...] Do you speak a language other than Indonesian at [facility]? No 10/10/2024 Do you want [...] Progress Notes * Kiran Olmos MD - 08/23/2024 6:48 AM EDT Subjective Review of Systems Objective Last Recorded Vitals There were no vitals taken for this visit. Physical Exam Labs: No results found for this visit on 08/23/24 (from the past 24 hours). CT lower [...] on filedocumented in this encounter Care Teams Manager Of Merchandising Relationship Specialty Start Date End Date Norma Au, EMBOSSING MACHINE OPERATOR [address] [facility] [place] [address] PCP - General Nurse Practitioner 08/23/24 documented as of this encounter
--- OUTSIDE RECORDS SUMMARY | 2024-11-25 21:57 | XMS_ITS ---
[facility] Care Plan Created on: November 15, 2024 Denisa Sanon : 1940 Sex: Female Author Organization [employer]. Address [address] [place] [phone] Phone Health Concerns Health Status CKD 4 Health Concerns None
--- OUTSIDE RECORDS SUMMARY | 2024-11-25 21:57 | XMS_ITS ---
[employer] Care Plan Created on: November 15, 2024 Denisa Sanon : 1940 Sex: Female Author Organization [facility]. Address [address] [place] [phone] Phone Health Concerns Health Status CKD 4 Health Concerns None
--- OUTSIDE RECORDS SUMMARY | 2024-11-25 21:57 | XMS_ITS | Clinical Summary ---
Author Organization [facility] Address [address] [place] [address] Care Team Providers Care Continuous Improvement Black Belt Name Role Phone Carlos Gonzalez MD Primary Care Provid er Encounters Date Type Department Care Team Description 09/28/2024 Lab Requisition [facility] [address] [place] [address] System, Provider Not In, Chronic respiratory failure [...] EDT) N-Terminal, PROBNP, Plasma 793 0 - 9,161 pg/mL 09/28/2024 11:58 PM EDT [facility] Blood Venous blood specimen / Unknown 09/28/2024 11:00 PM EDT 09/28/2024 11:42 PM EDT us Provider Not In System LAB BLOOD ORDERABLES F inal Result [facility] [address] [place] [address] from Last 3 Months Care Teams Continuous Improvement Black Belt Relationship Specialty Start Date End Date Carlos Gonzalez MD [address] [place] [address] PCP - General 08/30/20
--- OUTSIDE RECORDS SUMMARY | 2024-11-25 21:57 | XMS_ITS ---
Author Organization [facility] ([facility]) Address [address] [place] [address] Care Team Providers Care Instructional Supervisor Name Role Phone Unavailable Unavailable Unavailable Allergies, Adverse Reactions, Alerts This patient has no known allergies or adverse reactions. Problems This patient has no known problems.
--- OUTSIDE RECORDS SUMMARY | 2024-11-25 21:57 | XMS_ITS | Clinical Summary ---
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 Active albuterol 90 mcg/actuation inhaler Inhale 2 [...] (eight) hours as needed for nausea. Active cholecalciferol , vitamin D3, 2,000 unit tab Take 1 tablet (2,000 Units total) by mouth daily. Active acetaminophen (TYLENOL) 325 MG tablet Take 2 tablets (650 mg total) by mouth every 6 (six) hours as needed. Active Active Problems Problem Noted Date Diagnosed Date Joint infection 10/10/2024 Post op infection 10/10/2024 Osteoarthritis, knee 08/23/2024 Asthma 08/09/2024 Chronic hypoxic respiratory failure 08/09/2024 CKD (chronic kidney disease) 08/09/2024 COPD (chronic obstructive pulmonary disease) CAD (coronary artery disease) 08/09/2024 DM (diabetes mellitus) 08/09/2024 Hyperlipemia 08/09/2024 HTN (hypertension) 08/09/2024 MARCELA (obstructive sleep apnea) 08/09/2024 Obesity, morbid, BMI 40.0-49.9 08/09/2024 Encounters Date Type Department Care Team Description 10/25/2024 9:45 AM EDT Office Visit [facility] Surgery - [place] [address] [facility] [address] [place] [address] David Bernal MD Foreign body of knee with infection, right, subsequent encounter (Primary Dx) 10/11/2024 2:35 PM EDT - 10/11/2024 4:42 PM EDT Surgery [facility] Surgery Department [address] [place] [address] Wilfrido Stafford MD IRRIGATION AND DEBRIDEMENT, SUBCUTANEOUS TISSUE, SKIN, WITH JOINT ASPIRATION AND CLOSURE, POST TOTAL KNEE REPLACEMENT 10/11/2024 1:53 PM EDT Anesthesia Event [facility] Surgery Department [address] [place] [address] Patricia Dumont CRNA 10/11/2024 Surgery Prep [facility] Surgery Department [address] [place] [address] Wilfrido Stafford MD 10/10/2024 4:34 PM EDT - 10/14/2024 3:30 PM EDT Hospital Encounter [facility] Telemetry Unit [address] [place] [address] Brigitte Boone MD 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 Never [...] Do you speak a language other than Salvadorean at ho wa? No 10/10/2024 Do you want help with [...] Pulse 76 10/25/2024 9:39 AM EDT Temperature 36.3 C (97.3 F) 10/14/2024 2:52 PM EDT Respiratory Rate 18 10/14/2024 2:52 PM EDT Oxygen Saturation 99% 10/14/2024 2:52 PM EDT Inhaled Oxygen Concentration 30% 10/14/2024 4 :27 AM EDT Weight 114.8 kg (253 lb) 10/25/2024 9:39 AM EDT Height 160 cm (5' 2.99 ) 10/10/2024 5:00 PM EDT Body Mass Index 44.83 10/10/2024 5:00 PM EDT Plan of Treatment Health Maintenance Due Date Last Done Comments Diabetic Eye Exam 1948 Depression Screening (12+) 1950 DTAP/TDAP/TD VACCINES (1 - Tdap) 1957 Respiratory Syncytial Virus (RSV) Adult or (1 - 1-dose 75+ series) 2013 Shingles Vaccine (Zoster) (2 of 2) 04/07/20232022 COVID-19 VACCINE ( - season) 2023 Falls Risk Screening 04/19/2024 Medicare IPPE (Welcome to Medicare) G0402 04/19/2024 Influenza Vaccine (#1) 2024 01/22/2020 Hemoglobin A1C 02/08/2025 08/09/2024 Tobacco Cessation Counseling and Screening (12+) 10/2510/25/2024 Pneumococcal 50+ years Completed 02/10/2023 Medical Devices Implanted Type Area Steam Drier Tender Device Identifier Shelf Expiration Date Model / Serial / Lot Cement Bone Smplx Tobra 40gm 6197-9-001 - [id number] Implanted:Qty : 2 on 08/23/2024 by Wilfrido Stafford MD at [facility] IMPLANTS Right: Knee [employer] 10/16/2025 [id number] 1 / / [id number] Pwdr Cellerate Clgn 1gm Strl Vbr-82-Bwyfge - [id number] Implanted:Qty : 1 on 08/23/2024 by Wilfrido Stafford MD at [facility] IMPLANTS Right: Knee [employer] [facility] 08/31/2026 I-01-SA CRXP / / [id number] Pwdr Cellerate Clgn 1gm Strl Uhz-67-Gpbsae - [id number] Implanted:Qty : 1 on 10/11/2024 by Wilfrido Stafford MD at [facility] IMPLANTS Right: Knee [employer] [facility] 08/31/2026 WCI-01-SA CRXP / / [id number] Imp Patella Itotal 35x7mm [id number] - [id number] Implanted:Qty : 1 on 08/23/2024 by Wilfrido Stafford MD at [facility] TOTAL JOINT CONSTRUCT Right: Knee [employer] 06/16/2026 [id number] / / [id number] Kt Itotal Id Ps Full Xe Itps-Xe-1pc - [id number] Implanted:Qty : 1 on 08/23/2024 by Wilfrido Stafford MD at [facility] TOTAL JOINT CONSTRUCT Right: Knee [employer] 08/16/2025 ITPS-XE-1 PC / [id number] / Imp Itotal Id Ps Fem Attila Lt [id number] - [id number] Implanted:Qty : 1 on 08/23/2024 by Wilfrido Stafford MD at [facility] TOTAL JOINT CONSTRUCT Right: Knee [employer] 08/16/2025 [id number] / Ty Itotal Id Ps Tib Attila Lt [id number] - [id number] Implanted:Qty : 1 on 08/23/2024 by Wilfrido Stafford MD at [facility] TOTAL JOINT CONSTRUCT Right: Knee [employer] 08/16/2025 [id number] / Procedures Procedure Name Priority Date/Time Associated Diagnosis Comments NOVA GLUCOSE POC Routine 10/14/2024 11:2 8 AM EDT NOVA GLUCOSE POC Routine 10/14/2024 5:32 AM EDT BASIC METABOLIC PANEL Routine 10/14/2024 4:07 AM EDT CBC W/ AUTO DIFF Routine 10/14/2024 4:07 AM EDT NOVA GLUCOSE [...] GLUCOSE POC Routine 10/11/2024 3:48 PM EDT CYTOLOGY ([facility]) AP Routine 10/11/2024 2:33 PM EDT Infection of prosthetic knee joint (HCC) [facility] DIFFERENTIAL, BODY FLUID Routine 10/11/2024 2:33 [...] EDT Infection of prosthetic knee joint (HCC) ANESTHESIA INTUBATION Routine 10/11/2024 2:02 PM EDT IRRIGATION AND DEBRIDEMENT, ABSCESS, LOWER EXTREMITY 10/11/2024 1:53 PM EDT Infection of prosthetic knee joint (HCC) NOVA GLUCOSE POC Routine 10/11/2024 11:5 9 AM EDT NOVA GLUCOSE POC Routine 10/11/2024 11:1 0 AM EDT BLOOD CULTURE STAT 10/11/2024 6:28 AM EDT CREATINE KINASE (CK) Add-On 10/11/2024 6:21 AM EDT BASIC METABOLIC PANEL Routine 10/11/2024 6:21 AM EDT CBC HEMOGRAM (SJ-BKR) Routine 10/11/2024 6:21 AM EDT NOVA GLUCOSE POC Routine 10/11/2024 5:59 AM EDT NOVA GLUCOSE POC Routine 10/10/2024 8:57 PM EDT PROBNP Routine 10/10/2024 7:06 PM EDT MAGNESIUM Routine 10/10/2024 7:06 PM EDT COMPREHENSIVE METABOLIC PANEL Routine 10/10/2024 7:06 PM EDT PT/INR, PTT Routine 10/10/2024 7:06 PM EDT C-REACTIVE PROTEIN Routine 10/10/2024 7: 06 PM EDT PROCALCITONIN Routine 10/10/2024 7:06 PM EDT NOVA GLUCOSE POC Routine 10/10/2024 5:41 PM EDT NOVA GLUCOSE POC Routine 08/26/2024 8:22 AM [...] AUTO DIFF Routine 08/25/2024 4:36 AM EDT HEMOGLOBIN A1C Routine 08/09/2024 11:20 AM EDT Preop examination from Last 3 Months or Most Recently Relevant to Health Maintenance Results * (ABNORMAL) Glucose, Nova Meter (10/14/2024 11:28 AM EDT) Only the most recent of24 resultswithin the time period is included. POC-GLUCOSE 182(H) 70 - 110 mg/dL 10/14/2024 11:29 AM EDT [facility] Comment: In the event of poor peripheral blood flow, venous or arterial blood should be used due to the potential of erroneous results. Notified Nurse RBV Journeyman Plumber [id number] 10/14/2024 11:29 AM EDT [facility] Blood WHOLE BLOOD / Unknown 10/14/2024 11:28 AM EDT 10/14/2024 11:29 AM EDT Narrative [facility] - 10/14/2024 11:29 AM EDT Journeyman Plumber ID is - [id number] us Brigitte Boone MD POINT OF CARE TEST ORDERABLES Final Result [facility] [address] [phone] * (ABNORMAL) CBC with Automated Diff (10/14/2024 4:07 AM EDT) Only the most recent of2 resultswithin the time period is included. WBC 8.3 3.9 - 10.0 K/ L 10/14/2024 4:20 AM EDT [facility] RBC 4.23 3.93 - 6.08 M/ L 10/14/2024 4:20 AM EDT [facility] Hemoglobin 12.7 11.2 - 15.7 GM/DL 10/14/2024 4:20 AM EDT [facility] Hematocrit 38.6 34.1 - 44.9 % 10/14/2024 4:20 AM EDT [facility] MCV 91 79 - 95 fL 10/14/2024 4:20 AM EDT [facility] MCH 30.0 25.6 - 32.2 pg 10/14/2024 4:20 AM EDT [facility] MCHC 32.9 32.2 - 36.5 GM/DL 10/14/2024 4:20 AM EDT [facility] RDW 12.8 11.6 - 14.4 % 10/14/2024 4:20 AM EDT [facility] Platelets 250 163 - 369 K/CU MM 10/14/2024 4:20 AM EDT [facility] MPV 9.3(L) 9.4 - 12.4 fL 10/14/2024 4:20 AM EDT [facility] % Neutros 66 34 - 71 % 10/14/2024 4:20 AM EDT [facility] % Lymphs 21 19 - 53 % 10/14/2024 4:20 AM EDT [facility] % Monos 11 4 - 13 % 10/14/2024 4:20 AM EDT [facility] % Eos 1 1 - 7 % 10/14/2024 4:20 AM EDT [facility] % Baso 0 0 - 1 % 10/14/2024 4:20 AM EDT [facility] # Neutros 5.42 1.56 - 6.13 K/ L 10/14/2024 4:20 AM EDT [facility] # Lymphs 1.76 1.18 - 3.74 K/ L 10/14/2024 4:20 AM EDT [facility] # Monos 0.92(H) 0.24 - 0.82 K/ L 10/14/2024 4:20 AM EDT [facility] # Eos 0.11 0.04 - 0.54 K/ L 10/14/2024 4:20 AM EDT [facility] # Baso 0.02 0.01 - 0.08 K/ L 10/14/2024 4:20 AM EDT [facility] Immature Granulocytes-Re lative 0.20 0.00 - 0.60 % 10/14/2024 4:20 AM EDT [facility] # IG 0.02 0.00 - 0.05 K/uL 10/14/2024 4:20 AM EDT [facility] Blood Venipuncture / Unknown 10/14/2024 4:07 AM EDT 10/14/2024 4:07 AM EDT Narrative [facility] - 10/14/2024 4:20 AM EDT When [...] MD LAB BLOOD ORDERABLES Final Re sult [facility] [address] [place] [address] * (ABNORMAL) Basic Metabolic Panel (10/14/2024 4:07 AM EDT) Only the most recent of4 resultswithin the time period is included. Sodium 136 136 - 146 meq/L 10/14/2024 4:25 AM EDT [facility] Potassium 4.1 3.5 - 5.1 meq/L 10/14/2024 4:25 AM EDT [facility] Chloride 102 102 - 112 meq/L 10/14/2024 4:25 AM EDT [facility] CO2 32 21 - 32 meq/L 10/14/2024 4:25 AM EDT [facility] Anion Gap 6(L) 9 - 20 10/14/2024 4:25 AM EDT [facility] BUN 35(H) 7 - 22 mg/dL 10/14/2024 4:25 AM EDT [facility] Creatinine 1.29(H) 0.55 - 1.02 mg/dL 10/14/2024 4:25 AM EDT [facility] BUN/Creatinine 27(H) 8 - 20 10/14/2024 4:25 AM EDT [facility] Glucose 211(H) 74 - 106 mg/dL 10/14/2024 4:25 AM EDT [facility] Calcium 8.4(L) 8.5 - 10.1 mg/dL 10/14/2024 4:25 AM EDT [facility] Osmolality Calc 286.2 mOsm/kg 4:25 AM EDT [facility] eGFR (mL/min/1.73m2) 41(L) >=60 mL/min/1.7 3m2 10/14/2024 4:25 AM EDT [facility] Comment:eGFR of <60 suggests chronic kidney disease if found over a 3 month period of time. eGFR <15 indicates renal failure. Blood Venipuncture / Unknown 10/14/2024 4:07 AM EDT 10/14/2024 4:07 AM EDT Brigitte Boone MD LAB BLOOD ORDERABLES Final Re sult Performing Organization Address [facility] Co de Phone Number [facility] [address] [place] [address], [facility] [phone] * DIFFERENTIAL, BODY FLUID (10/11/2024 2:33 PM EDT) Neutrophils Fluid 67 0 - 25 % 10/11/2024 3:15 PM EDT [facility] Lymphocytes Fluid 10 % 10/11/2024 3:15 PM EDT [facility] Monocytes Fluid 14 0 - 65 % 3:15 PM EDT [facility] EOSINOPHILS 9 10/11/2024 3:15 PM EDT [facility] Synovial Fluid BODY FLUID / Unknown 10/11/2024 2:33 PM EDT 10/11/2024 2:39 PM EDT Wilfrido Stafford MD BODY FLUIDS AND STOOLS ORDERABLE S Final Result Performing Organization Address [facility]/ZIP Co de Phone Number [facility] [address] [place] [address], [facility] [phone] * [facility] Non-Supervisor Laboratory Animal Facility Cytology (10/11/2024 2:33 PM EDT) AP RESULT See Note: [facility] Comment: [facility] [address] [place] [address] or [phone] Rusty Ferris M.D., Microfiche Duplicator PATIENT NAME LABORATORY NO. [address]. [id number] AGE SEX SSN CLIENT REF # [place] [id number] F [id number] [address] REQUESTING John ATTENDING [place] [address] WILFRIDO STAFFORD DATE COLLECTED DATE RECEIVED DATE REPORTED 10/11/2024 10/11/2024 10/12/2024 DIAGNOSIS: SYNOVIAL JOINT FLUID, RIGHT KNEE: Negative for malignant cells. MICROSCOPIC DESCRIPTION: Acute and chronic inflammation are present in a background of amorphous debris. Professional interpretation rendered by Efrain Ferguson M.D., F.C.A.P. at [facility], [address] [place] [address]. 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 Cell block has been examined. FRACTIONATION PLANT SUPERVISOR: NAHOMI MARTINEZ (ASCP) REVIEWED, DIAGNOSED AND ELECTRONICALLY SIGNED BY: Efrain Ferguson M.D., F.C.A.P. CPT CODES: 53024, 72763 Synovial Fluid BODY FLUID / Unknown 10/11/2024 2:33 PM EDT Wilfrido Stafford MD PATHOLOGY/CYTOLOGY ORDERABLES nal Result [facility] [address] [place] [address] * (ABNORMAL) Body fluid cell count with differential (10/11/2024 2:33 PM EDT) Appearance Bloody(A) Clear 10/11/2024 3:15 PM EDT [facility] Color Red 10/11/2024 3:15 PM EDT [facility] BODY FLUID TYPE Synovial 3:15 PM EDT [facility] Auto WBC/Nucleated Cells BF 1,861 /uL 10/11/2024 3:15 PM EDT [facility] Comment: Please refer to specific WBC/Nucleated Cell Count Body Fluid reference ranges below: For Pleural: 0-1000 Peritoneal: 0-1000 Pericardial:0-1000 Synovial: 0-200 Auto RBC BF 80,000 /uL 10/11/2024 3:15 PM EDT [facility] Comment: Please refer to specific RBC Cell Count Body Fluid reference ranges below: Pleural: 0-10,000 Peritoneal: 0-10,000 Pericardial:0-10,000 Synovial:0-30 Synovial Fluid BODY FLUID / Unknown 10/11/2024 2:33 PM EDT 10/11/2024 2:39 PM EDT Narrative [facility] - 10/11/2024 3:15 PM EDT There is normally no readily obtainable pleural, peritoneal and pericardial fluid, hence normal elements for these potential fluids are not defined. us Wilfrido Stafford MD BODY FLUIDS AND STOOLS ORDERABLE S Final Result [facility] [address] [place] [address], [facility] [phone] * AFB Culture And Stain (10/11/2024 2:31 PM EDT) Only the most recent of2 resultswithin the time period is included. Result No Acid Fast Bacilli isolated at 6 weeks 11/22/2024 4:00 PM EDT [facility] AFB Smear No acid fast bacilli seen 11/22/2024 4:00 PM EDT [facility] Tissue STRUCTURE OF RIGHT KNEE REGION / Unknown 10/11/2024 2:31 PM EDT 10/11/2024 3:05 PM EDT [facility] - 11/22/2024 4:00 PM EDT Specimen Description: Right Knee Synovium #2 Wilfrido Stafford MD MICROBIOLOGY - GENERAL ORDERABLE S Final Result Performing Organization Address City/[facility]/ZIP Co de Phone Number [facility] [address] [phone] * Fungus Culture W/ERUM Or Alma Ink (10/11/2024 2:31 PM EDT) Only the most recent of3 resultswithin the time period is included. Result No fungus isolated at 6 weeks. 11/22/2024 4:00 PM EDT [facility] ERUM Prep No fungal elements seen 11/22/2024 4:00 PM EDT [facility] Tissue STRUCTURE OF RIGHT KNEE REGION / Unknown 10/11/2024 2:31 PM EDT 10/11/2024 3:04 PM EDT Narrative [facility] - 11/22/2024 4:00 PM EDT Specimen Description: Right Knee Synovium #3 Wilfrido Stafford MD MICROBIOLOGY - GENERAL ORDERABLE S Final Result Performing Organization Address [facility] Co de Phone Number [facility] [address] [phone] * (ABNORMAL) Anaerobic Culture, Extended (P.acnes) (10/11/2024 2:31 PM EDT) Only the most recent of3 resultswithin the time period is included. Result Anaerococcus vaginalis(A) 10/25/2024 7:00 AM EDT [facility] Result Peptoniphilus harei(A) 10/25/2024 7:00 AM EDT [facility] Result Porphyromonas somerae(A) 10/25/2024 7:00 AM EDT [facility] Result Anaerobic gram positive cocci(A) 10/25/2024 7:00 AM EDT [facility] Comment:* - Peptoniphilus sp ecies Tissue STRUCTURE OF RIGHT KNEE REGION / Unknown 10/11/2024 2:31 PM EDT 10/11/2024 3:03 PM EDT Narrative [facility] - 10/25/2024 7:00 AM EDT Specimen Description: Right Knee Synovium #3 For Peptoniphilus species ID This test was developed and its performance characteristics determined by [facility]. It has not been cleared by the [place] Food and Drug Administration This result was determined by [facility] [employer]. This test is used for clinical purposes. It should not be reguarded as investigational or for research Mixed growth suggestive of colonization or indigenous alvaro. Inappropriate for full workup us Wilfrido Stafford MD MICROBIOLOGY - GENERAL ORDERABLE S Final Result [facility] [address] [phone] * (ABNORMAL) Tissue Culture+ Stain (10/11/2024 2:31 PM EDT) Only the most recent of3 resultswithin the time period is included. Result Moderate Growth Methicillin resistant Staphylococcus aureus(A) 10/15/2024 11:51 AM EDT [facility] Comment: Resistant organism requires isolation protocol. For susceptibility see previous report - Accession - [id number] Result Light Growth Haemophilus parainfluenzae(A) 10/15/2024 11:51 AM EDT [facility] Comment:Beta-lactamase negat brooke Gram Stain Result Few gram positive cocci in pairs and clusters 10/15/2024 11:51 AM EDT [facility] Gram Stain Result Few WBCs 025 11:51 AM EDT [facility] Gram Stain Result Few epithelial cells 10/15/2024 11:51 AM EDT [facility] Tissue STRUCTURE OF RIGHT KNEE REGION / Unknown 10/11/2024 2:31 PM EDT 10/11/2024 3:03 PM EDT Narrative [facility] - 10/15/2024 11:51 AM EDT Specimen Description: Right Knee Synovium #3 us Wilfrido Stafford MD MICROBIOLOGY - GENERAL ORDERABLE S Final Result Performing Organization Address City/[facility] Co de Phone Number [facility] [address] [phone] * SPIN/CONCENTRATION CHARGE (10/11/2024 2:31 PM EDT) Only the most recent of2 resultswithin the time period is included. Concentration charged Done 10/23/2024 10:56 AM EDT [facility] Tissue STRUCTURE OF RIGHT KNEE REGION / Unknown 10/11/2024 2:31 PM EDT 10/11/2024 3:04 PM EDT Wilfrido Stafford MD MICROBIOLOGY - GENERAL ORDERABLE S Final Result Performing Organization Address [facility] Co de Phone Number [facility] [address] [phone] * AN SINGLE LUMEN INTUBATION (10/11/2024 2:02 PM EDT) Narrative Patricia Dumont CRNA - 10/11/2024 2:02 PM EDT Patricia [...] 1 Number of other approaches attempted: 0 us Patricia Dumont CRNA ANESTHESIA ORDERABLES Final R esult * Blood Culture (10/11/2024 6:28 AM EDT) Result No growth in 5 days 10/16/2024 8:01 AM EDT [facility] Blood STRUCTURE OF RIGHT HAND / Unknown Venipuncture / Unknown 10/11/2024 6:28 AM EDT 10/11/2024 6:28 AM EDT us Brigitte Boone MD MICROBIOLOGY - GENERAL ORDERA BLES Final Result [facility] [address] [phone] * (ABNORMAL) CBC - Hemogram (SJ-BKR) (10/11/2024 6:21 AM EDT) WBC 6.9 3.9 - 10.0 K/ L 10/11/2024 6:36 AM EDT [facility] RBC 4.62 3.93 - 6.08 M/ L 10/11/2024 6:36 AM EDT [facility] Hemoglobin 13.9 11.2 - 15.7 GM/DL 10/11/2024 6:36 AM EDT [facility] Hematocrit 42.0 34.1 - 44.9 % 10/11/2024 6:36 AM EDT [facility] MCV 91 79 - 95 fL 10/11/2024 6:36 AM EDT [facility] MCH 30.1 25.6 - 32.2 pg 10/11/2024 6:36 AM EDT [facility] MCHC 33.1 32.2 - 36.5 GM/DL 10/11/2024 6:36 AM EDT [facility] RDW 13.1 11.6 - 14.4 % 10/11/2024 6:36 AM EDT [facility] Platelets 263 163 - 369 K/CU MM 10/11/2024 6:36 AM EDT [facility] MPV 9.3(L) 9.4 - 12.4 fL 10/11/2024 6:36 AM EDT [facility] nRBC 0(L) 1 - 5 /100 WBC 10/11/2024 6:36 AM EDT [facility] Blood Venipuncture / Unknown 10/11/2024 6:21 AM EDT 10/11/2024 6:28 AM EDT us Brigitte Boone MD LAB BLOOD ORDERABLES Final Re sult Performing Organization Address City/[facility]/ZIP Co de Phone Number [facility] [address] [place] [address], [facility] [phone] * Creatine Kinase (CK) (10/11/2024 6:21 AM EDT) Total CK 87 26 - 192 U/L 10/11/2024 8:35 AM EDT [facility] Blood Venipuncture / Unknown 10/11/2024 6:21 AM EDT 10/11/2024 6:28 AM EDT us David Fulton MD LAB BLOOD ORDERABLES Final Re sult Performing Organization Address [facility]/ZIP Co de Phone Number [facility] [address] [place] [address], [facility] [phone] * PT/INR, PTT (10/10/2024 7:06 PM EDT) aPTT 24.0 22.0 - 32.0 seconds 10/10/2024 7:23 PM EDT [facility] Protime 11.0 9.0 - 12.0 seconds 10/10/2024 7:23 PM EDT [facility] INR 1.01 0.80 - 1.10 10/10/2024 7:23 PM EDT [facility] Blood Venipuncture / Unknown 10/10/2024 7:06 PM EDT 10/10/2024 7:06 PM EDT Brigitte Boone MD LAB BLOOD ORDERABLES Final Re sult [facility] [address] [phone] * Procalcitonin (10/10/2024 7:06 PM EDT) Procalcitonin <0.14 <=0.50 ng/mL 10/10/2024 7:38 PM EDT [facility] Comment: Sepsis comment <0.5 Antibiotics Discouraged [...] ORDERABLES Final Re sult Performing Organization Address City/[facility]/ZIP Co de Phone Number [facility] [address] [phone] * (ABNORMAL) PROBNP (10/10/2024 7:06 PM EDT) ProBNP (pg/mL) 815(H) 0 - 450 pg/mL 10/10/2024 7:28 PM EDT [facility] Blood Venipuncture / Unknown 10/10/2024 7:06 PM EDT 10/10/2024 7:06 PM EDT Brigitte Boone MD LAB BLOOD ORDERABLES Final Re sult Performing Organization Address City/[facility]/ZIP Co de Phone Number [facility] [address] [place] [address], [facility] [phone] * C-Reactive Protein (10/10/2024 7:06 PM EDT) [facility] CRP 0.60 0.00 - 0.90 mg/dL 10/10/2024 7:28 PM EDT [facility] Blood Venipuncture / Unknown 10/10/2024 7:06 PM EDT 10/10/2024 7:06 PM EDT Brigitte Boone MD LAB BLOOD ORDERABLES Final Re sult Performing Organization Address [facility]/ZIP Co de Phone Number [facility] [address] [phone] * Magnesium (10/10/2024 7:06 PM EDT) [facility] Magnesium 1.7 1.5 - 2.4 mg/dL 10/10/2024 7:28 PM EDT [facility] Blood Venipuncture / Unknown 10/10/2024 7:06 PM EDT 10/10/2024 7:06 PM EDT Brigitte Boone MD LAB BLOOD ORDERABLES Final Re sult Performing Organization Address [facility] Co de Phone Number [facility] [address] [phone] * (ABNORMAL) Comprehensive metabolic panel (10/10/2024 7:06 PM EDT) [facility] Sodium 132(L) 136 - 146 meq/L 10/10/2024 7:28 PM EDT [facility] Potassium 3.9 3.5 - 5.1 meq/L 10/10/2024 7:28 PM EDT [facility] Chloride 96(L) 102 - 112 meq/L 10/10/2024 7:28 PM EDT [facility] CO2 32 21 - 32 meq/L 10/10/2024 7:28 PM EDT [facility] Calcium 9.0 8.5 - 10.1 mg/dL 10/10/2024 7:28 PM [facility] Glucose 305(H) 74 - 106 mg/dL 10/10/2024 7:28 PM [facility] BUN 23(H) 7 - 22 mg/dL 10/10/2024 7:28 PM [facility] Creatinine 1.68(H) 0.55 - 1.02 mg/dL 10/10/2024 7:28 PM [facility] BUN/Creatinine 14 8 - 20 10/10/2024 7:28 PM [facility] Albumin 3.2(L) 3.4 - 5.0 g/dL 10/10/2024 7:28 PM [facility] Alkaline Phosphatase 99 27 - 136 U/L 10/10/2024 7:28 PM [facility] ALT 25 12 - 78 U/L 10/10/2024 7:28 PM [facility] AST 27 5 - 37 U/L 10/10/2024 7:28 PM [facility] Total Bilirubin 0.4 0.2 - 1.3 mg/dL 10/10/2024 7:28 PM [facility] Protein, Total 7.1 6.4 - 8.2 gm/dL 10/10/2024 7:28 PM [facility] Anion Gap 8(L) 9 - 20 10/10/2024 7:28 PM [facility] A/G Ratio 0.8(L) 1.1 - 2.5 10/10/2024 7:28 PM [facility] Globulin 3.9 1.5 - 4.5 g/dL 10/10/2024 7:28 PM [facility] Osmolality Calc 279.7 mOsm/kg 7:28 PM [facility] eGFR (mL/min/1.73m2) 30(L) >=60 mL/min/1.7 3m2 10/10/2024 7:28 PM [facility] Comment:ESTIMATED GFR IS NOT ACCURATE CREATININE CLEARANCE IN PREDICTING GLOMERULAR FILTRATION RATE. ESTIMATED GFR IS NOT APPLICABLE FOR DIALYSIS PATIENTS. Blood Venipuncture / Unknown 10/10/2024 7:06 PM EDT 10/10/2024 7:06 PM EDT us Brigitte Boone MD LAB BLOOD ORDERABLES Final Re sult Performing Organization Address [facility]/ZIP Co de Phone Number [facility] [address] [phone] * Hemoglobin and hematocrit (08/26/2024 3:11 AM EDT) Hemoglobin 14.6 11.2 - 15.7 GM/DL 08/26/2024 3:15 AM EDT [facility] Hematocrit 44.3 34.1 - 44.9 % 08/26/2024 3:15 AM EDT [facility] Blood Venipuncture / Unknown 08/26/2024 3:11 AM EDT 08/26/2024 3:11 AM EDT Luly Finnegan PA-C LAB BLOOD ORDERABLES Final Res ult Performing Organization Address [facility] Co de Phone Number [facility] [address] [place] [address], [facility] [phone] * (ABNORMAL) Hemoglobin A1c (08/09/2024 11:20 AM EDT) Hemoglobin A1C 7.7(H) 4.2 - 6.3 % 08/09/2024 12:43 PM EDT [facility] Comment: Hemoglobin A1C levels are related to mean glucose during the preceding 2-3 months. Less than 7% demonstrates glycemic control in diabetic patients. Hemoglobin AlC % Suggested Diagnosis > or = 6.5 Diabetic 5.7 - 6.4 Prediabetic <5.7 Non-diabetic eAVG Glucose 174.29 mg/dL 08/09/2024 12:43 PM EDT [facility] Blood Venipuncture / Unknown 08/09/2024 11:20 AM EDT 08/09/2024 12:09 PM EDT Wilfrido Stafford MD LAB BLOOD ORDERABLES Final Resul t [facility] [address] [place] [address], [facility] [phone] from Last 3 Months or Most Recently Relevant to Health Maintenance Additional Health Concerns Infection Onset Date Last Indicated MRSA (C) 10/14/2024 10/14/2024 Insurance [employer] ACCESS PPO MAP Advance Directives For more information, please contact: [phone] * DNR - Limited Additional Intervention (Latest Code Status on File) Date Activated Date Inactivated Comments 10/10/2024 9:38 PM 10/14/2024 4:41 PM * Full Code Date Activated Date Inactivated Comments 10/10/2024 3:48 PM 10/10/2024 9:38 PM * Full Code Date Activated Date Inactivated Comments 08/23/2024 11:33 AM 08/26/2024 1:06 PM * Full Code Date Activated Date Inactivated Comments 08/23/2024 6:38 AM 08/23/2024 11:33 AM Care Teams Senior Accounting Clerk Relationship Specialty Start Date End Date Norma Au, [employer] MACHINE OPERATOR [address] [facility] [place] [address] PCP - General Nurse Practitioner 08/23/24
--- OUTSIDE RECORDS SUMMARY | 2024-11-25 21:57 | XMS_ITS | Encounter Summary ---
Author Organization Healthcare Address [address] [place] [address] Care Team Providers Care Drill Press Tender Name Role Phone Carlos Gonzalez MD Primary Care Provid er Encounter Details Date Type Department Care Team (Late st Contact Info) Description 09/28/2024 Lab Requisition [facility] [address] [place] [address] System, Provider Not In, [address] [place] [address] Chronic respiratory failure with hypoxia; Osteoarthritis of [...] - 1,799 pg/mL 09/28/2024 11:58 PM EDT [facility] Blood Venous blood specimen / Unknown 09/28/2024 11:00 PM EDT 09/28/2024 11:42 PM EDT us Provider Not In System LAB BLOOD ORDERABLES F inal Result [facility] [address] [place] [address] documented in this encounter Visit Diagnoses Diagnosis Chronic respiratory failure with hypoxia Osteoarthritis of knee, unspecified Chronic kidney disease, unspecified Muscle weakness (generalized) documented in this encounter Care Teams Drill Press Tender Relationship Specialty Start Date End Date Carlos Gonzalez MD [address] [place], [place] [id number] PCP - General 08/30/20 documented as of this encounter
--- OUTSIDE RECORDS SUMMARY | 2024-11-25 21:57 | XMS_ITS | Referral Summary ---
Author Organization [employer] ([place], [place], [place], [place]) Address [address] [place] [address] Care Team Providers Care Dry Lumber Grader Name Role Phone Norma Au APRN Primary Care Provider [phone] Encounters Date Type Department Care Team Description 10/25/2024 9:45 AM EDT Office Visit [facility] Surgery - [place] [address] [place] [address] David Bernal MD Foreign body of knee with infection, right, subsequent encounter (Primary Dx) 10/10/2024 4:34 PM EDT - 10/14/2024 3:30 PM EDT Hospital Encounter [facility] Telemetry Unit [address] [place] [address] Brigitte Boone MD 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) Discharge Disposition: Prison Facility 10/11/2024 1:53 PM EDT Anesthesia Event [facility] Surgery Department [address] [place] [address] Patricia Dumont CRNA 10/11/2024 Surgery Prep [facility] Surgery Department [address] [place] [address] Wilfrido Stafford MD 10/11/2024 2:35 PM EDT - 10/11/2024 4:42 PM EDT Surgery [facility] Surgery Department [address] [place] [address] Wilfrido Stafford MD IRRIGATION AND DEBRIDEMENT, SUBCUTANEOUS TISSUE, SKIN, WITH JOINT ASPIRATION AND CLOSURE, POST TOTAL KNEE REPLACEMENT 10/10/2024 Travel 08/28/2024 Telephone [id number] [place] [address] Norma Au, [facility] Follow Up 08/23/2024 6:11 AM EDT - 08/26/2024 11:00 AM EDT Hospital Encounter [facility] Telemetry Unit [address] [place] [address] Wilfrido Stafford MD Discharge Disposition: Prison Facility from Last 3 Months Allergies Active Allergy [...] Do you speak a language other than [place] at ho al? No 10/10/2024 Do you want help with [...] 10/10/2024 5:00 PM EDT Plan of Treatment Not on file Medical Devices Implanted Type Area Commissioner Conservation Of Resources Device Identifier Shelf Expiration Date Model / Serial / Lot Cement Bone Smplx Tobra 40gm 6197-9-001 - [id number] Implanted:Qty : 2 on 08/23/2024 by Wilfrido Stafford MD at [facility] IMPLANTS Right: Knee [employer] 10/16/2025 [id number] 1 / / [id number] Pwdr Cellerate Clgn 1gm Strl Kgk-49-Dnkusy - [id number] Implanted:Qty : 1 on 08/23/2024 by Wilfrido Stafford MD at [facility] IMPLANTS Right: Knee [employer] [facility] 08/31/2026 [facility] CRXP / / [id number] Pwdr Cellerate Clgn 1gm Strl Cku-54-Gmqqek - [id number] Implanted:Qty : 1 on 10/11/2024 by Wilfrido Stafford MD at [facility] IMPLANTS Right: Knee [employer] [facility] 08/31/2026 [facility] CRXP / / [id number] Imp Patella Itotal 35x7mm [id number] - [id number] Implanted:Qty : 1 on 08/23/2024 by Wilfrido Stafford MD at [facility] TOTAL JOINT CONSTRUCT Right: Knee [employer] 06/16/2026 [id number] / / [id number] Kt Itotal Id Ps Full Xe Itps-Xe-1pc - [id number] Implanted:Qty : 1 on 08/23/2024 by Wilfrido Stafford MD at [facility] TOTAL JOINT CONSTRUCT Right: Knee [employer]FORMIS 08/16/2025 ITPS-XE-1 PC / [id number] / Imp Itotal Id Ps Fem Attila Lt [id number] - [id number] Implanted:Qty : 1 on 08/23/2024 by Wilfrido Stafford MD at [facility] TOTAL JOINT CONSTRUCT Right: Knee [employer]FORMIS 08/16/2025 [id number] / [id number] / Ty Itotal Id Ps Tib Attila Lt [id number] - [id number] Implanted:Qty : 1 on 08/23/2024 by Wilfrido Stafford MD at [facility] TOTAL JOINT CONSTRUCT Right: Knee [employer]FORMIS 08/16/2025 [id number] / [id number] / Procedures Procedure Name Priority Date/Time Associated [...] of24 resultswithin the time period is included. [facility] POC-GLUCOSE 182(H) 70 - 110 mg/dL 10/14/2024 11:29 AM EDT [facility] Comment: In the event of poor peripheral blood flow, venous or arterial blood should be used due to the potential of erroneous results. Notified Nurse RBV Electric Appliance Installer [id number] 10/14/2024 11:29 AM EDT [facility] Blood WHOLE BLOOD / Unknown 10/14/2024 11:28 AM EDT 10/14/2024 11:29 AM EDT Narrative [facility] - 10/14/2024 11:29 AM EDT Electric Appliance Installer ID is - [id number] us Brigitte Boone MD POINT OF CARE TEST ORDERABLES Final Result [facility] [address] [place] [address], [facility] [phone] * (ABNORMAL) CBC with Automated Diff (10/14/2024 4:07 AM EDT) Only the most recent of2 resultswithin the time period is included. WBC 8.3 3.9 - 10.0 K/ L 10/14/2024 4:20 AM EDT [facility] RBC 4.23 3.93 - 6.08 M/ L 10/14/2024 4:20 AM EDT [facility] Hemoglobin 12.7 11.2 - 15.7 GM/DL 10/14/2024 4:20 AM EDT [facility] Hematocrit 38.6 34.1 - 44.9 % 10/14/2024 4:20 AM EDT [facility] MCV 91 79 - 95 fL 10/14/2024 4:20 AM EDT [facility] MCH 30.0 25.6 - 32.2 pg 10/14/2024 4:20 AM EDT [facility] MCHC 32.9 32.2 - 36.5 GM/DL 10/14/2024 4:20 AM EDT [facility] RDW 12.8 11.6 - 14.4 % 10/14/2024 4:20 AM EDT [facility] Platelets 250 163 - 369 K/CU MM 10/14/2024 4:20 AM EDT [facility] MPV 9.3(L) 9.4 - 12.4 fL 10/14/2024 4:20 AM EDT [facility] % Neutros 66 34 - 71 % 10/14/2024 4:20 AM EDT [facility] % Lymphs 21 19 - 53 % 10/14/2024 4:20 AM EDT [facility] % Monos 11 4 - 13 % 10/14/2024 4:20 AM EDT [facility] % Eos 1 1 - 7 % 10/14/2024 4:20 AM EDT [facility] % Baso 0 0 - 1 % 10/14/2024 4:20 AM EDT [facility] # Neutros 5.42 1.56 - 6.13 K/ L 10/14/2024 4:20 AM EDT [facility] # Lymphs 1.76 1.18 - 3.74 K/ L 10/14/2024 4:20 AM EDT [facility] # Monos 0.92(H) 0.24 - 0.82 K/ L 10/14/2024 4:20 AM EDT [facility] # Eos 0.11 0.04 - 0.54 K/ L 10/14/2024 4:20 AM EDT [facility] # Baso 0.02 0.01 - 0.08 K/ L 10/14/2024 4:20 AM EDT [facility] Immature Granulocytes-Re lative 0.20 0.00 - 0.60 % 10/14/2024 4:20 AM EDT [facility] # IG 0.02 0.00 - 0.05 K/uL 10/14/2024 4:20 AM EDT [facility] Blood Venipuncture / Unknown 10/14/2024 4:07 AM EDT 10/14/2024 4:07 AM EDT Narrative [facility] - 10/14/2024 4:20 AM EDT [...] MD LAB BLOOD ORDERABLES Final Re sult [facility] [address] [employer] [address] [phone] * (ABNORMAL) Basic Metabolic Panel (10/14/2024 4:07 AM EDT) Only the most recent of4 resultswithin the time period is included. Sodium 136 136 - 146 meq/L 10/14/2024 4:25 AM EDT [facility] Potassium 4.1 3.5 - 5.1 meq/L 10/14/2024 4:25 AM EDT [facility] Chloride 102 102 - 112 meq/L 10/14/2024 4:25 AM EDT [facility] CO2 32 21 - 32 meq/L 10/14/2024 4:25 AM EDT [facility] Anion Gap 6(L) 9 - 20 10/14/2024 4:25 AM EDT [facility] BUN 35(H) 7 - 22 mg/dL 10/14/2024 4:25 AM EDT [facility] Creatinine 1.29(H) 0.55 - 1.02 mg/dL 10/14/2024 4:25 AM EDT [facility] BUN/Creatinine 27(H) 8 - 20 10/14/2024 4:25 AM EDT [facility] Glucose 211(H) 74 - 106 mg/dL 10/14/2024 4:25 AM EDT [facility] Calcium 8.4(L) 8.5 - 10.1 mg/dL 10/14/2024 4:25 AM EDT [facility] Osmolality Calc 286.2 mOsm/kg 4:25 AM EDT [facility] eGFR (mL/min/1.73m2) 41(L) >=60 mL/min/1.7 3m2 10/14/2024 4:25 AM EDT [facility] Comment:eGFR of <60 suggests chronic kidney disease if found over a 3 month period of time. eGFR <15 indicates renal failure. Blood Venipuncture / Unknown 10/14/2024 4:07 AM EDT 10/14/2024 4:07 AM EDT us Brigitte Boone MD LAB BLOOD ORDERABLES Final Re sult [facility] [address] [phone] * DIFFERENTIAL, BODY FLUID (10/11/2024 2:33 PM EDT) Neutrophils Fluid 67 0 - 25 % 10/11/2024 3:15 PM EDT [facility] Lymphocytes Fluid 10 % 10/11/2024 3:15 PM EDT [facility] Monocytes Fluid 14 0 - 65 % 3:15 PM EDT [facility] EOSINOPHILS 9 10/11/2024 3:15 PM EDT [facility] Synovial Fluid BODY FLUID / Unknown 10/11/2024 2:33 PM EDT 10/11/2024 2:39 PM EDT us Wilfrido Stafford MD BODY FLUIDS AND STOOLS ORDERABLE S Final Result Performing Organization Address City/[facility] Co de Phone Number [facility] [address] [phone] * [facility] Non-Inside Sales Consultant Cytology (10/11/2024 2:33 PM EDT) AP RESULT See Note: [facility] Comment: [facility] [address] [place] [address] or [phone] Rusty Ferris M.D., Project Executive PATIENT NAME LABORATORY NO. [address]. [id number] AGE SEX SSN CLIENT REF # [facility] [id number] REQUESTING John ATTENDING MKarey.. [place] [address] WILFRIDO STAFFORD DATE COLLECTED DATE RECEIVED DATE REPORTED 10/11/2024 10/11/2024 10/12/2024 DIAGNOSIS: SYNOVIAL JOINT FLUID, RIGHT KNEE: Negative for malignant cells. MICROSCOPIC DESCRIPTION: Acute and chronic inflammation are present in a background of amorphous debris. Professional interpretation rendered by Efrain Ferguson M.D., Geraldine at [facility], [facility], [address] [place] [address]. 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 Cell block has been examined. OPTOMETRIST ASSISTANT: NAHOMI MARTINEZ (ASCP) REVIEWED, DIAGNOSED AND ELECTRONICALLY SIGNED BY: Efrain Ferguson M.D., Delfin. CPT CODES: 83203, 30200 Synovial Fluid BODY FLUID / Unknown 10/11/2024 2:33 PM EDT us Wilfrido Stafford MD PATHOLOGY/CYTOLOGY ORDERABLES [facility] Result PATHOLOGY AND CYTOLOGY LABORATORY [address] [place] [address] * (ABNORMAL) Body fluid cell count with differential (10/11/2024 2:33 PM EDT) Appearance Bloody(A) Clear 10/11/2024 3:15 PM EDT [facility] Color Red 10/11/2024 3:15 PM EDT [facility] BODY FLUID TYPE Synovial 3:15 PM EDT [facility] Auto WBC/Nucleated Cells BF 1,861 /uL 10/11/2024 3:15 PM EDT [facility] Comment: Please refer to specific WBC/Nucleated Cell Count Body Fluid reference ranges below: For Pleural: 0-1000 Peritoneal: 0-1000 Pericardial:0-1000 Synovial: 0-200 Auto RBC BF 80,000 /uL 10/11/2024 3:15 PM EDT [facility] Comment: Please refer to specific RBC Cell Count Body Fluid reference ranges below: Pleural: 0-10,000 Peritoneal: 0-10,000 Pericardial:0-10,000 Synovial:0-30 Synovial Fluid BODY FLUID / Unknown 10/11/2024 2:33 PM EDT 10/11/2024 2:39 PM EDT Narrative [facility] - 10/11/2024 3:15 PM EDT There is normally no readily obtainable pleural, peritoneal and pericardial fluid, hence normal elements for these potential fluids are not defined. Wilfrido Stafford MD BODY FLUIDS AND STOOLS ORDERABLE S Final Result Performing Organization Address [facility] Co de Phone Number [facility] [address] [phone] * AFB Culture And Stain (10/11/2024 2:31 PM EDT) Only the most recent of2 resultswithin the time period is included. Result No Acid Fast Bacilli isolated at 6 weeks 11/22/2024 4:00 PM EDT [facility] AFB Smear No acid fast bacilli seen 11/22/2024 4:00 PM EDT [facility] Tissue STRUCTURE OF RIGHT KNEE REGION / Unknown 10/11/2024 2:31 PM EDT 10/11/2024 3:05 PM EDT Narrative [facility] - 11/22/2024 4:00 PM EDT Specimen Description: Right Knee Synovium #2 us Wilfrido Stafford MD MICROBIOLOGY - GENERAL ORDERABLE S Final Result Performing Organization Address [facility] Co de Phone Number [facility] [address] [phone] * Fungus Culture W/ERUM Or Alma Ink (10/11/2024 2:31 PM EDT) Only the most recent of3 resultswithin the time period is included. Result No fungus isolated at 6 weeks. 11/22/2024 4:00 PM EDT [facility] ERUM Prep No fungal elements seen 11/22/2024 4:00 PM EDT [facility] Tissue STRUCTURE OF RIGHT KNEE REGION / Unknown 10/11/2024 2:31 PM EDT 10/11/2024 3:04 PM EDT Narrative [facility] - 11/22/2024 4:00 PM EDT Specimen Description: Right Knee Synovium #3 Wilfrido Stafford MD MICROBIOLOGY - GENERAL ORDERABLE S Final Result Performing Organization Address [facility] Co de Phone Number [facility] [address] [phone] * (ABNORMAL) Anaerobic Culture, Extended (P.acnes) (10/11/2024 2:31 PM EDT) Only the most recent of3 resultswithin the time period is included. Result Anaerococcus vaginalis(A) 10/25/2024 7:00 AM EDT [facility] Result Peptoniphilus harei(A) 10/25/2024 7:00 AM EDT [facility] Result Porphyromonas somerae(A) 10/25/2024 7:00 AM EDT [facility] Result Anaerobic gram positive cocci(A) 10/25/2024 7:00 AM EDT [facility] Comment:* - Peptoniphilus sp ecies Tissue STRUCTURE OF RIGHT KNEE REGION / Unknown 10/11/2024 2:31 PM EDT 10/11/2024 3:03 PM EDT Narrative [facility] - 10/25/2024 7:00 AM EDT Specimen Description: Right Knee Synovium #3 For Peptoniphilus species ID This test was developed and its performance characteristics determined by [employer]. It has not been cleared by [...] Final Result Performing Organization Address [facility] Co de Phone Number [facility] [address] [phone] * (ABNORMAL) Tissue Culture+ Stain (10/11/2024 2:31 PM EDT) Only the most recent of3 resultswithin the time period is included. Result Moderate Growth Methicillin resistant Staphylococcus aureus(A) 10/15/2024 11:51 AM EDT [facility] Comment: Resistant organism requires isolation protocol. For susceptibility see previous report - Accession - [id number] Result Light Growth Haemophilus parainfluenzae(A) 10/15/2024 11:51 AM EDT [facility] Comment:Beta-lactamase negat brooke Gram Stain Result Few gram positive cocci in pairs and clusters 10/15/2024 11:51 AM EDT [facility] Gram Stain Result Few WBCs 025 11:51 AM EDT [facility] Gram Stain Result Few epithelial cells 10/15/2024 11:51 AM EDT [facility] Tissue STRUCTURE OF RIGHT KNEE REGION / Unknown 10/11/2024 2:31 PM EDT 10/11/2024 3:03 PM EDT Narrative [facility] - 10/15/2024 11:51 AM EDT Specimen Description: Right Knee Synovium #3 us Wilfrido Stafford MD MICROBIOLOGY - GENERAL ORDERABLE S Final Result Performing Organization Address [facility] Co de Phone Number [facility] [address] [phone] * SPIN/CONCENTRATION CHARGE (10/11/2024 2:31 PM EDT) Only the most recent of2 resultswithin the time period is included. Concentration charged Done 10/23/2024 10:56 AM EDT [facility] Tissue STRUCTURE OF RIGHT KNEE REGION / Unknown 10/11/2024 2:31 PM EDT 10/11/2024 3:04 PM EDT us Wilfrido Stafford MD MICROBIOLOGY - GENERAL ORDERABLE S Final Result Performing Organization Address City/[facility]/ZIP Co de Phone Number [facility] [address] [phone] * AN SINGLE LUMEN INTUBATION (10/11/2024 2:02 [...] in 5 days 10/16/2024 8:01 AM EDT [facility] Blood STRUCTURE OF RIGHT HAND / Unknown Venipuncture / Unknown 10/11/2024 6:28 AM EDT 10/11/2024 6:28 AM EDT us Brigitte Boone MD MICROBIOLOGY - GENERAL ORDERA BLES Final Result [facility] [address] [phone] * (ABNORMAL) CBC - Hemogram (SJ-BKR) (10/11/2024 6:21 AM EDT) WBC 6.9 3.9 - 10.0 K/ L 10/11/2024 6:36 AM EDT [facility] RBC 4.62 3.93 - 6.08 M/ L 10/11/2024 6:36 AM EDT [facility] Hemoglobin 13.9 11.2 - 15.7 GM/DL 10/11/2024 6:36 AM EDT [facility] Hematocrit 42.0 34.1 - 44.9 % 10/11/2024 6:36 AM EDT [facility] MCV 91 79 - 95 fL 10/11/2024 6:36 AM EDT [facility] MCH 30.1 25.6 - 32.2 pg 10/11/2024 6:36 AM EDT [facility] MCHC 33.1 32.2 - 36.5 GM/DL 10/11/2024 6:36 AM EDT [facility] RDW 13.1 11.6 - 14.4 % 10/11/2024 6:36 AM EDT [facility] Platelets 263 163 - 369 K/CU MM 10/11/2024 6:36 AM EDT [facility] MPV 9.3(L) 9.4 - 12.4 fL 10/11/2024 6:36 AM EDT [facility] nRBC 0(L) 1 - 5 /100 WBC 10/11/2024 6:36 AM EDT [facility] Blood Venipuncture / Unknown 10/11/2024 6:21 AM EDT 10/11/2024 6:28 AM EDT us Brigitte Boone MD LAB BLOOD ORDERABLES Final Re sult [facility] [address] [phone] * Creatine Kinase (CK) (10/11/2024 6:21 AM EDT) Total CK 87 26 - 192 U/L 10/11/2024 8:35 AM EDT [facility] Blood Venipuncture / Unknown 10/11/2024 6:21 AM EDT 10/11/2024 6:28 AM EDT David Fulton MD LAB BLOOD ORDERABLES Final Re sult Performing Organization Address [facility] de Phone Number [facility] [address] [phone] * PT/INR, PTT (10/10/2024 7:06 PM EDT) aPTT 24.0 22.0 - 32.0 seconds 10/10/2024 7:23 PM EDT [facility] Protime 11.0 9.0 - 12.0 seconds 10/10/2024 7:23 PM EDT [facility] INR 1.01 0.80 - 1.10 10/10/2024 7:23 PM EDT [facility] Blood Venipuncture / Unknown 10/10/2024 7:06 PM EDT 10/10/2024 7:06 PM EDT Brigitte Boone MD LAB BLOOD ORDERABLES Final Re sult Performing Organization Address [facility] de Phone Number [facility] [address] [phone] * Procalcitonin (10/10/2024 7:06 PM EDT) Procalcitonin <0.14 <=0.50 ng/mL 10/10/2024 7:38 PM EDT [facility] Comment: Sepsis comment <0.5 Antibiotics [...] Re sult Performing Organization Address [facility]/ZIP Co de Phone Number [facility] [address] [phone] * (ABNORMAL) PROBNP (10/10/2024 7:06 PM EDT) ProBNP (pg/mL) 815(H) 0 - 450 pg/mL 10/10/2024 7:28 PM EDT [facility] Blood Venipuncture / Unknown 10/10/2024 7:06 PM EDT 10/10/2024 7:06 PM EDT Brigitte Boone MD LAB BLOOD ORDERABLES Final Re sult Performing Organization Address [facility] Co de Phone Number [facility] [address] [place] [address], [facility] [phone] * C-Reactive Protein (10/10/2024 7:06 PM EDT) CRP 0.60 0.00 - 0.90 mg/dL 10/10/2024 7:28 PM EDT [facility] Blood Venipuncture / Unknown 10/10/2024 7:06 PM EDT 10/10/2024 7:06 PM EDT Brigitte Boone MD LAB BLOOD ORDERABLES Final Re sult Performing Organization Address [facility] Co de Phone Number [facility] [address] [phone] * Magnesium (10/10/2024 7:06 PM EDT) Magnesium 1.7 1.5 - 2.4 mg/dL 10/10/2024 7:28 PM EDT [facility] Blood Venipuncture / Unknown 10/10/2024 7:06 PM EDT 10/10/2024 7:06 PM EDT us Brigitte Boone MD LAB BLOOD ORDERABLES Final Re sult [facility] [address] [employer] [address] [phone] * (ABNORMAL) Comprehensive metabolic panel (10/10/2024 7:06 PM EDT) Sodium 132(L) 136 - 146 meq/L 10/10/2024 7:28 PM EDT [facility] Potassium 3.9 3.5 - 5.1 meq/L 10/10/2024 7:28 PM EDT [facility] Chloride 96(L) 102 - 112 meq/L 10/10/2024 7:28 PM EDT [facility] CO2 32 21 - 32 meq/L 10/10/2024 7:28 PM EDT [facility] Calcium 9.0 8.5 - 10.1 mg/dL 10/10/2024 7:28 PM EDT [facility] Glucose 305(H) 74 - 106 mg/dL 10/10/2024 7:28 PM EDT [facility] BUN 23(H) 7 - 22 mg/dL 10/10/2024 7:28 PM EDT [facility] Creatinine 1.68(H) 0.55 - 1.02 mg/dL 10/10/2024 7:28 PM EDT [facility] BUN/Creatinine 14 8 - 20 10/10/2024 7:28 PM EDT [facility] Albumin 3.2(L) 3.4 - 5.0 g/dL 10/10/2024 7:28 PM EDT [facility] Alkaline Phosphatase 99 27 - 136 U/L 10/10/2024 7:28 PM EDT [facility] ALT 25 12 - 78 U/L 10/10/2024 7:28 PM EDT [facility] AST 27 5 - 37 U/L 10/10/2024 7:28 PM EDT [facility] Total Bilirubin 0.4 0.2 - 1.3 mg/dL 10/10/2024 7:28 PM EDT [facility] Protein, Total 7.1 6.4 - 8.2 gm/dL 10/10/2024 7:28 PM EDT [facility] Anion Gap 8(L) 9 - 20 10/10/2024 7:28 PM EDT [facility] A/G Ratio 0.8(L) 1.1 - 2.5 10/10/2024 7:28 PM EDT [facility] Globulin 3.9 1.5 - 4.5 g/dL 10/10/2024 7:28 PM EDT [facility] Osmolality Calc 279.7 mOsm/kg 7:28 PM T [facility] eGFR (mL/min/1.73m2) 30(L) >=60 mL/min/1.7 3m2 10/10/2024 7:28 PM EDT [facility] Comment:ESTIMATED GFR IS NOT ACCURATE CREATININE CLEARANCE IN PREDICTING GLOMERULAR FILTRATION RATE. ESTIMATED GFR IS NOT APPLICABLE FOR DIALYSIS PATIENTS. Blood Venipuncture / Unknown 10/10/2024 7:06 PM EDT 10/10/2024 7:06 PM EDT us Brigitte Boone MD LAB BLOOD ORDERABLES Final Re sult [facility] [address] [place] [address] * Hemoglobin and hematocrit (08/26/2024 3:11 AM EDT) Hemoglobin 14.6 11.2 - 15.7 GM/DL 08/26/2024 3:15 AM EDT [facility] Hematocrit 44.3 34.1 - 44.9 % 08/26/2024 3:15 AM EDT [facility] Blood Venipuncture / Unknown 08/26/2024 3:11 AM EDT 08/26/2024 3:11 AM EDT us Luly Finnegan PA-C LAB BLOOD ORDERABLES Final Res ult Performing Organization Address [facility] Co de Phone Number [facility] [address] [phone] * (ABNORMAL) Hemoglobin A1c (08/09/2024 11:20 AM [...] AM EDT 08/09/2024 12:09 PM EDT us Wilfrido Stafford MD LAB BLOOD ORDERABLES Final Resul t Performing Organization Address [facility] Co de Phone Number [facility] [address] [phone] from Last 3 Months or Most Recently Relevant to Health Maintenance Additional Health Concerns Infection Onset Date Last Indicated MRSA (C) 10/14/2024 10/14/2024 Insurance [facility] [employer] PPO MAP Advance Directives For more information, please contact: [phone] * DNR - Limited Additional Intervention (Latest [...] 6:38 AM 08/23/2024 11:33 AM Care Teams Dry Lumber Grader Relationship Specialty Start Date End Date Norma Au, RECORD CLERK SALESPERSON [address] [place] [address] PCP - General Nurse Practitioner 08/23/24
--- NOTE | 2024-11-25 22:23 | XR_ITS ---
PROCEDURE INFORMATION: Exam: XR Pelvis Exam date and time: 11/25/2024 11:56 PM Age: 84 years old Clinical indication: Injury or trauma; Fall; Blunt trauma (contusions or hematomas); Bilateral; Pelvic region TECHNIQUE: Imaging protocol: Radiologic exam of the pelvis. Views: 1 or 2 view. COMPARISON: CT BONY PELVIS 06/11/2024 10:11 AM FINDINGS: Bones/joints: Unremarkable. No acute fracture. Soft tissues: Unremarkable. IMPRESSION: No acute findings.
--- NOTE | 2024-11-25 22:23 | ECG_ITS ---
APPROVED REPORT Exam: Resting ECG HR:84 bpm ECG Measurements Heart Rate 84 AXES WI 159 P -18 QRSd 150 QRS -20 QT 393 T 136 QTc 434 Conclusion Sinus rhythm 84 bpm, negative for acute ST elevations in V1 and V2 per Sgarbossa criteria, no other acute ST or T wave changes concerning for ischemia. Left bundle branch block. Electronically signed by : Tova Solorio, 12/07/2024 00:18:22
--- NOTE | 2024-11-25 22:23 | CT_ITS ---
PROCEDURE INFORMATION: Exam: CT Head Without Contrast Exam date and time: 11/25/2024 11:12 PM Age: 84 years old Clinical indication: Injury or trauma; Fall; Additional info: Fall, on asa TECHNIQUE: Imaging protocol: Computed tomography of the head without contrast. Radiation optimization: All CT scans at this facility use at least one of these dose optimization techniques: automated exposure control; mA and/or kV adjustment per patient size (includes targeted exams where dose is matched to clinical indication); or iterative reconstruction. COMPARISON: CT HEAD/BRAIN WO CON 06/11/2024 10:03 AM FINDINGS: Brain: Left cerebellar lobe encephalomalacia from prior postoperative changes. Questionable residual left CPA lesion (series 3 images 15-22) unchanged since prior exams. There is patchy hypoattenuation in the deep and subcortical white matter, likely representing chronic small vessel ischemic change. Age-related parenchymal atrophy with enlargement of the CSF spaces. No hemorrhage. Cerebral ventricles: Nonspecific left lateral ventricle subependymal nodularity measuring 10 x 6 mm (series 3, image 42) unchanged since prior exams. Paranasal sinuses: Visualized sinuses are unremarkable. No fluid levels. Mastoid air cells: Visualized mastoid air cells are well aerated. Bones: Postoperative changes of left temporo-occipital craniectomy. Soft tissues: Unremarkable. IMPRESSION: No acute intracranial abnormality.
--- NOTE | 2024-11-25 22:23 | CT_ITS ---
PROCEDURE INFORMATION: Exam: CT Cervical Spine Without Contrast Exam date and time: 11/25/2024 11:52 PM Age: 84 years old Clinical indication: Injury or trauma; Fall; Additional info: Fall on asa TECHNIQUE: Imaging protocol: Computed tomography of the cervical spine without contrast. Radiation optimization: All CT scans at this facility use at least one of these dose optimization techniques: automated exposure control; mA and/or kV adjustment per patient size (includes targeted exams where dose is matched to clinical indication); or iterative reconstruction. COMPARISON: CT HEAD/BRAIN WO CON 11/25/2024 11:12 PM FINDINGS: Bones: Postoperative changes of left temporo-occipital craniotomy. No acute fracture. Straightening of the cervical lordosis. Moderate spondylosis. No significant spinal canal stenosis. Lungs: Lung apices are normal. Soft tissues: Unremarkable. IMPRESSION: No acute fracture or malalignment.
--- NOTE | 2024-11-25 22:23 | XR_ITS ---
PROCEDURE INFORMATION: Exam: XR Chest Exam date and time: 11/25/2024 11:56 PM Age: 84 years old Clinical indication: Injury or trauma; Fall; Blunt trauma (contusions or hematomas) TECHNIQUE: Imaging protocol: Radiologic exam of the chest. Views: 1 view. COMPARISON: CR XR CHEST PORTABLE 10/03/2024 11:47 PM FINDINGS: Lungs: Central interstitial pattern opacities are unchanged compared to previous Pleural spaces: No effusions or pneumothorax Heart/Mediastinum: Borderline cardiomegaly Bones/joints: Unremarkable. IMPRESSION: Chronic lung disease without definite acute abnormality.
--- OUTSIDE RECORDS SUMMARY | 2024-11-25 22:56 | XMS_ITS | CCD ---
Author Organization Unknown Care Team Providers Care Property Administrator Name Role Phone Non Engaged, [facility] Primary Care Provider Unav ailable Unavailable Chronic Care Management Unavaila ble Summary Purpose DataExchange Family History Family History data not found Medication Administered No Medication Administered data Reason For Visit No Reason For Visit data Medical Equipment No Medical Equipment data Advance Directives No Advance Directive data
[2024-11-25 22:58] LABS: Lactate Venous 1.9 mmol/L (0.4-2.0); VBG HCO3 31.7 mmol/L (23-30); VBG PH 7.36 mmol/L (7.31-7.41); VBG PO2 51.8 mmol/L (28-40)
[2024-11-25 23:03] LABS: Albumin Level 4.2 g/dl (3.5-5.0); Chloride 99 mmol/L (98-107); Potassium 5.3 mmoL/L (3.5-5.1); Sodium 134 mmol/L (136-145)
[2024-11-25 23:03] LABS: VBG PCO2 56.8 mmol/L (35-51)
[2024-11-25 23:05] LABS: Blood Urea Nitrogen 28 mg/dl (7-17); Creatinine Clearance Estimated 30 mL/min (50-200); Creatinine,Serum 1.10 mg/dl (0.52-1.04); Estimated Glomerular Filt Rate 47 ml/min (>60); GFR (African American) 57 ML/MIN (>60)
[2024-11-25 23:06] LABS: Alanine Aminotransferase 20 U/L (12-78); Albumin/Globulin Ratio 1.2 (1.1-1.8); Alkaline Phosphatase 57 U/L (38-126); Anion Gap 7.3 mEq/L (5-15); Aspartate Amino Transferase 45 U/L (14-36); Bilirubin,Total 1.2 mg/dl (0.2-1.3); Calcium 9.8 mg/dl (8.4-10.2); Carbon Dioxide 33 mmol/L (22.0-30.0); Creatine Kinase 119 U/L (30-135); Globulin 3.6 g/dL (1.3-3.2); Glucose 186 mg/dl (74-100); Magnesium 2.0 mg/dl (1.6-2.3); Phosphorous 3.8 mg/dl (2.5-4.5); Total Protein,Serum 7.8 g/dl (6.3-8.2)
[2024-11-25 23:18] LABS: Troponin I 0.07 ng/ml (0.00-0.034)
[2024-11-25 23:23] LABS: Hematocrit 43.9 % (37.0-47.0); Hemoglobin 14.5 g/dL (12.2-16.2); Immature Granulocytes % 0.1 %; Mean Corpuscular HGB Conc 33.0 g/dL (31.8-35.4); Mean Corpuscular Hemoglobin 29.7 pg (27.0-31.2); Mean Corpuscular Volume 89.8 fl (81-99); Nucleated Red Blood Cells % 0 %; Platelet Count 236 K/mm3 (142-424); Red Blood Count 4.89 M/mm3 (4.20-5.40); Red Cell Distribution Width-SD 45.0 fL; White Blood Count 7.2 K/mm3 (4.8-10.8)
[2024-11-26] VITALS (10 sets, daily range): BP systolic 100–158; BP diastolic 51–89; PULSE 74–88; RESP 15–18; TEMP 36.6–36.8; O2SAT 82–98; BMI 44.8; BMI 45.1
--- NOTE | 2024-11-26 00:14 | CT_ITS ---
PROCEDURE INFORMATION: Exam: CT Pelvis Without Contrast, Skeleton Exam date and time: 11/26/2024 12:26 AM Age: 84 years old Clinical indication: Injury or trauma; Fall; Additional info: Right hip tenderness, eval for fracture TECHNIQUE: Imaging protocol: Computed tomography of the pelvis without contrast. Exam focused on the skeleton. Radiation optimization: All CT scans at this facility use at least one of these dose optimization techniques: automated exposure control; mA and/or kV adjustment per patient size (includes targeted exams where dose is matched to clinical indication); or iterative reconstruction. COMPARISON: CT BONY PELVIS 06/11/2024 10:11 AM FINDINGS: Intestine: Diverticulosis without diverticulitis at the sigmoid colon Bones/joints: Previously documented coccygeal fracture shows increased displacement with ununited appearance. Estimated anterior displacement 4.7 mm. Grade 1 anterolisthesis L5 on S1 caused by facet hypertrophy. No visible bony pelvis or right hip fracture. Soft tissues: Unremarkable. Other findings: Large body habitus IMPRESSION: 1. No right hip fracture 2. Incidental findings above.
--- NOTE | 2024-11-26 00:51 | PC.NURSE ---
Called clearing house clerk for bed
--- NOTE | 2024-11-26 01:21 | PC.NURSE ---
Patient handoff given to Maria Luz (med/surg)
--- NOTE | 2024-11-26 02:10 | P.HP_ITS ---
<Statement entered by Kevin King MD - 11/26/24 14:59> Rounded on patient after nurse practitioner. Personally examined and interviewed patient. Agree with exam findings and care plan as documented. History of Present Illness *Admission Date: 11/26/24 *Reason for visit:: Status post right knee replacement falling at home unable to get up *History of present illness: This 84-year-old very pleasant lady that lives alone has had a knee replacement approximately 2 months ago., She spent [address] [facility] she ended up with a postop infection requiring antibiotics for the knee, then she went to the [facility] and improved to where she wanted to go home., She went home for approximately 2 days but has fallen did not have her phone with her and had to lay on the floor until someone came to help her. Because she was unable to get up or notify anyone. Patient was evaluated in the ER for new injuries and none were found., Noting though that the right knee surgery the site is still red slightly inflamed question whether there is still some infection with the tissue. Patient is not in pain at this point in time, she knows that she is not able to live alone and would like to go back into the rehabilitation. center at [facility]. [facility] Disclaimer: The information contained in this section may have been updated after the patient was seen, as this information can be updated by other users. Medical History (Updated 11/26/24 @ 02:36 by Adama Epps APRN) Self care deficit due to hearing impairment Obesity (BMI 30-39.9) History of smoking 25-50 pack years Stopped smoking with greater than 20 pack year history Asthma MARCELA (obstructive sleep apnea) Diabetes Brain tumor Diastolic dysfunction CAD (coronary artery disease) HTN (hypertension) COPD (chronic obstructive pulmonary disease) Surgical History (Updated 11/26/24 @ 02:16 by Adama Epps APRN) Status post right knee replacement H/O cardiac catheterization H/O: hysterectomy History of appendectomy Hx of tonsillectomy History of cholecystectomy H/O oophorectomy Family History Other Hypertension Stroke Social History (Updated 11/26/24 @ 02:24 by Jesika Emery RN) Smoking Status: Never smoker second hand exposure: No alcohol intake: never substance use type: denies use current occupational status: retired Travel in the last 8 weeks?: None household members: none housing: house caffeine: No Have you lived/traveled outside US in past 30 days?: No Contact w/someone who lives/traveled outside US past 30 days?: No Exposure to someone with infectious disease in past 14 days?: No Do you have a fever (greater than 100.4 F or 38 C)?: No Have you tested positive for COVID-19?: No Exposed to someone with COVID-19 in past 14 days?: No Do you have a sore throat?: No Do you have a cough?: No Do you have any weakness?: No Are you experiencing any nausea/vomitting?: No Do you have any diarrhea?: No Are you experiencing any unusual bleeding?: No Do you have any muscle aches/pain?: No Do you have any abdominal pain?: No Are you experiencing loss of taste or smell?: No Other Medical History Have you received the Flu Vaccine for this season: No Have you received the Pneumonia Vaccine: No Review of Systems Review of Systems Review of systems (narrative): Patient states she is just not able to care for herself. Her legs feels like they are giving out that she needs more rehabilitation and cannot live by herself would like to go back to the [facility] Constitutional Constitutional: Reports as per HPI Eyes Eyes: Reports as per HPI ENT Ears, Nose, Mouth, and Throat: Reports as per HPI *Cardiovascular Cardiovascular: Reports as per HPI *Respiratory Respiratory: Reports as per HPI *Gastrointestinal Gastrointestinal: Reports as per HPI *Genitourinary Genitourinary: Reports as per HPI *Musculoskeletal Musculoskeletal: Reports as per HPI Integumentary/Breasts Skin/Breast: Reports as per HPI *Neurologic Neurologic: Reports as per HPI Psychiatric Psychiatric: Reports as per HPI Endocrine Endocrine: Reports as per HPI Hematologic/Lymphatic Hematologic/Lymphatic: Reports as per HPI Meds Home Medications and Allergies Home Medications ?Medication ?Instructions ?Recorded ?Confirmed ?Type albuterol sulfate 90 mcg/actuation 4 inh inhalation Q4 HP PRN 10/04/24 11/26/24 Rx aerosol inhaler shortness of breath or wheez ing 30 days #8.5 grams allopurinol 100 mg tablet 100 mg PO DAILY 30 days #30 tabs 10/04/24 11/26/24 Rx cholecalciferol (vitamin D3) 50 50 mcg PO DAILY 30 day s #30 tabs 10/04/24 11/26/24 Rx mcg (2,000 unit) chewable tablet fluticasone 500 mcg-salmeterol 50 1 inh inhalation BID RT #60 ea 10/04/24 11/26/24 Rx mcg/dose blistr powdr for inhalation (Advair Diskus) insulin aspart U-100 100 unit/mL 10 unit (0.1 mL) SQ T ID 30 days #9 10/04/24 11/26/24 Rx (3 mL) subcutaneous pen (Novolog mL FlexPen U-100 Insulin aspart) insulin glargine 100 unit/mL (3 25 unit (0.25 mL) SQ B ID 30 days 10/04/24 11/26/24 Rx mL) subcutaneous pen (Lantus #15 mL Solostar U-100 Insulin) spironolactone 25 mg tablet 25 mg PO DAILY 30 days #30 tabs 10/04/24 11/26/24 Rx torsemide 100 mg tablet 50 mg (1/2 x 100 mg) PO ANAMIKA Y 30 10/04/24 11/26/24 Rx days #15 tabs tramadol 50 mg tablet 50 mg PO Q6HP PRN Severe Chapis n 11/26/24 11/26/24 History (Scale Score 7-10) New Prescriptions to Start Prescriptions: Allergies Allergy/AdvReac Type Severity Reaction Status Date / Time Penicillins Allergy Intermediate Unknown Verified 10/04/24 10:56 allergy reaction codeine (CODEINE) Allergy Mild Unknown Verified 10/04/24 10:56 allergy reaction iodine (IODINE) Allergy Mild Unknown Verified 10/04/24 10:56 allergy reaction latex (LATEX) Allergy Mild Unknown Verified 10/04/24 10:56 allergy reaction oxycodone (OXYCODONE) Allergy Mild Unknown Verified 10/04/24 10:56 allergy reaction Sulfa (Sulfonamide Allergy Mild Unknown Verified 10/04/24 10:56 Antibiotics) (SULFA allergy (SULFONAMIDE ANTIBIOTICS)) reaction Cephalosporins Allergy Unknown Verified 10/04/24 10:56 allergy reaction doxycycline Allergy Unknown Verified 10/04/24 10:56 allergy reaction exenatide (From Byetta) Allergy Unknown Verified 10/04/24 10:56 allergy reaction glyburide Allergy Unknown Verified 10/04/24 10:56 allergy reaction hyoscyamine (From Levbid) Allergy Unknown Verified 10/04/24 10:56 allergy reaction levofloxacin (From Levaquin) Allergy Unknown Verified 10/04/24 10:56 allergy reaction Exam Data for Last 24 hours Vital signs and Labs for Last 24 Hours: Temp Pulse Resp BP Pulse Ox O2 Del Method 97.9 F 85 16 135/80 82 L Room Air 11/26/24 01:22 11/26/24 01:22 11/26/24 01:22 11/26/24 01:22 11/26/24 00:50 11/26/24 01:22 Laboratory Results - last 24 hr 11/25/24 22:47: Sodium 134 L, Potassium 5.3 H, Chloride 99, Carbon Dioxide 33 H, Anion Gap 7.3, BUN 28 H, Creatinine 1.10 H, Estimated Creat Clear 30, Estimated GFR 47 L, Est GFR ( Amer) 57 L, Glucose 186 H, Calcium 9.8, Phosphorus 3.8, Magnesium 2.0, Total Bilirubin 1.2, AST 45 H, ALT 20, Alkaline Phosphatase 57, Total Creatine Kinase 119, Troponin I 0.07 H, Total Protein 7.8, Albumin 4.2, Globulin 3.6 H, Albumin/Globulin Ratio 1.2 11/25/24 22:50: VBG pH 7.36, VBG pCO2 56.8 H, VBG pO2 51.8 H, VBG HCO3 31.7 H, VBG Total CO2 33.4 H, VBG O2 Saturation 85.6 H, VBG Base Excess 6.3 H, VBG Lactic Acid 1.9 11/25/24 23:15: WBC 7.2, RBC 4.89, Hgb 14.5, Hct 43.9, MCV 89.8, MCH 29.7, MCHC 33.0, RDW 13.7, Plt Count 236, MPV 9.5, Neut % (Auto) 74.9, Lymph % (Auto) 14.5, Hendry % (Auto) 8.5, Eos % (Auto) 1.7, Baso % (Auto) 0.3, Neut # (Auto) 5.4, Lymph # (Auto) 1.0, Hendry # (Auto) 0.6, Eos # (Auto) 0.1, Baso # (Auto) 0.0 I & O for Last 24 hours: Intake & Output 11/23/24 11/24/24 11/25/24 11/26/24 05:59 05:59 05:59 05:59 Weight 245 lb Constitutional Constitutional: mild distress *Routine HEENT Exam Head: Present normocephalic and atraumatic Eye: Present PERRL ENT: Present mucous membranes moist *Routine Neck Exam Neck: Present supple *Routine Respiratory Exam Respiratory: Present CTA bilaterally, normal respiratory effort, able to speak in complete sentences and symmetric chest movement *Routine Cardiovascular Exam Cardiovascular: Present RRR, Normal S1 and Normal S2 *Routine Abdominal Exam Abdominal: Present soft and normoactive bowel sounds Comments: No abdominal tenderness *Routine Rectal Exam Rectal:: deferred *Routine Genitalia Exam Genitalia:: deferred *Routine Extremities Exam Extremities: Present pulses intact and tenderness Comments: Right knee incision is closed but redness throughout the knee is still edematous after 2 months post surgery *Routine Skin Exam Skin: Present intact and dry Comments: Right knee incision site is closed that there is a redness about it there is some edema but there is no weeping at this time cannot feel any abscesses under the skin *Routine Neurological Exam Neurological: Present alert, oriented X3, CN II-XII intact, abnormal gait, moving all extremities, vision grossly intact and normal speech Comments: Patient is just very weak she is able to move her extremities but does not have the strength to hold her weight H&P: Result Impressions 1. Status post right knee replacement with infection postsurgery that may not be completely resolved 2. Weakness with falls postsurgery unable to get up when fell at home laid on the floor for approximately 8 hours 3. Obesity with increased age and self-care deficit Assessment and Plan *Assessment and plan (1) Status post right knee replacement: Status: Acute Category: Surgical Code(s): Z96.651 - Presence of right artificial knee joint (2) Falls frequently: Status: Acute Category: Medical Code(s): R29.6 - Repeated falls (3) Morbid obesity with BMI of 40.0-44.9, adult: Status: Acute Category: Medical Code(s): E66.01 - Morbid (severe) obesity due to excess calories; Z68.41 - Body mass index [BMI] 40.0-44.9, adult (4) Self care deficit due to hearing impairment: Status: Acute Category: Medical Code(s): Z73.89 - Other problems related to life management difficulty; H91.90 - Unspecified hearing loss, unspecified ear (5) Declining functional status: Status: Acute Category: Medical Code(s): R53.81 - Other malaise (6) COPD (chronic obstructive pulmonary disease): Status: Acute Category: Medical Code(s): J44.9 - Chronic obstructive pulmonary disease, unspecified (7) Type 2 diabetes mellitus: Status: Chronic Qualifiers: Diabetes mellitus complication status: with other specified complication Diabetes mellitus foundry superintendant insulin use: unspecified foundry superintendant insulin use status Qualified Code(s): E11.69 - Type 2 diabetes mellitus with other specified complication Category: Medical Code(s): E11.9 - Type 2 diabetes mellitus without complications (8) Hypertension: Status: Acute Category: Medical Code(s): I10 - Essential (primary) hypertension Plan 1. Patient was checked to make sure there was no new fractures., Patient will be placed on the floor will have physical therapy OT see her.. See if we can develop a point in time that she is able to walk and care for herself. Patient does not feel this is probably practical would like to go back to rehab at the [facility]. 2. Self-care deficit, continue to try to rehab the patient to see if we can get her back to being able to live on her own again. 3. Right knee replacement with postop infection area is still red swollen slightly tender warm to the touch after 2 months post surgery. May see if referral from orthopedic surgeon would be of any value whether or not there is any abscess under the skin versus need for blood culture and continued longer treatment on IV antibiotics if this is cellulitis and not just postop redness may be complicated by the fall 84-year-old female who recently had knee replacement in the past 2 months. Has been in and out of [facility] twice now. Self discharged earlier this week. Unable to care for self at home. Presented to the ER after being found down. Discussed case with ER physician, request admission for therapy eval and possible placement again. Medicine decided to admit for therapy eval and further medical management given patient's debility and failure to thrive. Problems addressed as follows: Insulin-dependent diabetes Hypoglycemia - Continue sliding scale insulin with fingersticks ACHS. Glucose 186 on admission. Repeat CBC, CMP, magnesium ordered for the morning. Chronic kidney disease: -Patient at baseline kidney function, BUN 28, creatinine 1.1. Falls -Patient lives alone and expressing desire to go home however has failed going home twice for rehab. Therapy to evaluate in the morning with PT and OT. Further management and goals of care discussions pending recommendations Continue allopurinol 100 mg daily for gout Continue albuterol as needed every 4-6 hours, and Advair discus 1 inhalation twice daily
--- NOTE | 2024-11-26 02:44 | PC.WOUNDNOTE ---
right knee redness to abdominal folds redness, open area to right side redness under breast
[2024-11-26] MEDS: NYSTATIN TOPICAL POWDER 30GM TP ×4 (02:49→21:42)
[2024-11-26] MEDS: ACETAMINOPHEN 325MG TAB 650 MG PO (03:25)
--- NOTE | 2024-11-26 04:01 | PC.NURSE ---
Patient alert and oriented x4. Speech is clear, appropriate, and coherent. Pateint is usually on room air but was briefly placed on 2L via nasal cannula upon transfer due to SOB. Patient was given a bed bath during admission due to inflammed areas of redness on breast, lower abdomen, groin area, and buttocks. MD ordered Nystatin powder for the reddened areas, which was applied. Patient complained of lower leg pain and requested Tylenol. Tylenol was given at 0325. Patient denies pain, discomfort, or additional needs at this time. Patient is in room resting with eyes closed. No needs or complaints voiced at this time.
[2024-11-26 05:37] LABS: POC Glucose,Bedside 105 (70-110)
[2024-11-26] MEDS: DOCUSATE SODIUM 100 MG CAPSULE PO (08:27)
[2024-11-26 08:31] LABS: Troponin I 0.07 ng/ml (0.00-0.034)
--- NOTE | 2024-11-26 10:41 | HMH.PHAINT1 ---
Pharmacy Intervention Comments: MEDICATION RECONCILIATION COMPLETED ON PATIENT USING EXTERNAL FILL HISTORY FROM PHARMACY, DISCHARGE SUMMARY FROM PREVIOUS ADMISSION, AND PHUONG REPORT. -KISHA HAMPTOND
--- NOTE | 2024-11-26 10:44 | PC.NURSE ---
Found open blister on right cheek, I let MARIXA Marley know. I have made her a Q2 turn to keep from worsening the sore and avoid other sores from popping up. [address] ,SRNA
[2024-11-26 10:46] LABS: POC Glucose,Bedside 177 (70-110)
[2024-11-26] MEDS: humaLOG 100 UNITS/ML 10ML VIAL (SSI) SUBCUT ×2 (11:04→16:40)
[2024-11-26 11:32] LABS: Troponin I 0.06 ng/ml (0.00-0.034)
--- NOTE | 2024-11-26 11:32 | PC.NURSE ---
MD notified of patient having audible wheezes, duo nebs ordered, RT notified
[2024-11-26] MEDS: IPRATROPIUM/ALBUTEROL 3 ML NEB IH (11:43)
[2024-11-26 16:37] LABS: POC Glucose,Bedside 155 (70-110)
[2024-11-26 16:53] LABS: Microscopic, Urine URINE MICROSCOPIC (MICROSCOPIC)
[2024-11-26 17:08] LABS: Bilirubin,Urine Negative (Negative); Color,Urine YELLOW (Yellow); Glucose,Urine (UA) Negative (Negative); Ketones,Urine Negative (Negative); Leukocyte Esterase,Urine 2+ (Negative); PH,Urine 6.5 (5.0-8.5); Protein,Urine TRACE (Negative); Specific Gravity, Urine 1.010 (1.005-1.030); Urobilinogen,Urine 0.2 EU/dl (0.2)
--- NOTE | 2024-11-26 17:21 | PC.NURSE ---
patient is a/ox4 and remains on 2LNC with O2 sats above 90%. patient transferred to chair this shift x1 assist and is currently in the chair. FSBS treated per SSI. nystatin powder applied to excoriated skin folds. PW in place. patient has had several BM this shift via brief. patient received duo neb earlier in shift due to wheezing and patient stated it improved her breathing, no audible wheezing heard at this time. urine sample collected and sent to lab. tolerating diet well. call light within reach, no further requests at this time.
[2024-11-26 17:50] LABS: Bacteria,Urine 4+ /lpf; RBC,Urine Occasional #/hpf (0-3); Squamous Epithelial Cell,Urine Occasional #/hpf (0-5); Transitional Epi Cells,Urine OCC #/lpf (0-3)
[2024-11-26 20:17] LABS: POC Glucose,Bedside 141 (70-110)
[2024-11-26] MEDS: PANTOPRAZOLE 40MG TABLET 40 MG PO (21:41)
[2024-11-26] MEDS: INSULIN GLARGINE 100 UNITS/ML 3ML FLEXPEN 25 UNIT SUBCUT (21:41)
[2024-11-27 04:00] VITALS: BMI 45.1
[2024-11-27 05:28] LABS: POC Glucose,Bedside 151 (70-110)
[2024-11-27 06:06] LABS: Hematocrit 40.6 % (37.0-47.0); Hemoglobin 13.3 g/dL (12.2-16.2); Immature Granulocytes % 0.2 %; Mean Corpuscular HGB Conc 32.8 g/dL (31.8-35.4); Mean Corpuscular Hemoglobin 30.0 pg (27.0-31.2); Mean Corpuscular Volume 91.4 fl (81-99); Nucleated Red Blood Cells % 0 %; Platelet Count 228 K/mm3 (142-424); Red Blood Count 4.44 M/mm3 (4.20-5.40); Red Cell Distribution Width-SD 46.4 fL; White Blood Count 5.6 K/mm3 (4.8-10.8)
[2024-11-27 06:18] LABS: Albumin Level 3.4 g/dl (3.5-5.0); Chloride 101 mmol/L (98-107)
[2024-11-27 06:19] LABS: Potassium 4.0 mmoL/L (3.5-5.1); Sodium 136 mmol/L (136-145)
[2024-11-27 06:21] LABS: Alanine Aminotransferase 14 U/L (12-78); Alkaline Phosphatase 64 U/L (38-126); Anion Gap 8.0 mEq/L (5-15); Aspartate Amino Transferase 29 U/L (14-36); Bilirubin,Total 0.6 mg/dl (0.2-1.3); Blood Urea Nitrogen 27 mg/dl (7-17); Carbon Dioxide 31 mmol/L (22.0-30.0); Creatinine Clearance Estimated 29 mL/min (50-200); Creatinine,Serum 1.10 mg/dl (0.52-1.04); Estimated Glomerular Filt Rate 47 ml/min (>60); GFR (African American) 57 ML/MIN (>60)
[2024-11-27 06:22] LABS: Albumin/Globulin Ratio 1.3 (1.1-1.8); Calcium 8.9 mg/dl (8.4-10.2); Globulin 2.7 g/dL (1.3-3.2); Glucose 164 mg/dl (74-100); Magnesium 2.0 mg/dl (1.6-2.3); Total Protein,Serum 6.1 g/dl (6.3-8.2)
[2024-11-27] MEDS: IPRATROPIUM/ALBUTEROL 3 ML NEB IH (06:27)
[2024-11-27 06:28] VITALS: O2SAT 98
[2024-11-27 06:31] VITALS: PULSE 85; PULSE 87
[2024-11-27 08:00] VITALS: BP 131/64; PULSE 88; RESP 20; TEMP 36.8; O2SAT 93
[2024-11-27] MEDS: DOCUSATE SODIUM 100 MG CAPSULE PO (08:23)
[2024-11-27] MEDS: ACETAMINOPHEN 325MG TAB 650 MG PO ×3 (08:23→21:00)
[2024-11-27] MEDS: ALLOPURINOL 100MG TABLET 100 MG PO (08:23)
[2024-11-27] MEDS: TORSEMIDE 20MG TABLET 50 MG PO (08:23)
[2024-11-27] MEDS: INSULIN GLARGINE 100 UNITS/ML 3ML FLEXPEN 25 UNIT SUBCUT ×2 (08:24→21:00)
[2024-11-27] MEDS: NYSTATIN TOPICAL POWDER 30GM TP ×3 (08:24→21:01)
--- NOTE | 2024-11-27 09:36 | HMH.OTEV ---
OT Inpatient Evaluation Rehab OT IP Evaluation Start: 11/26/24 01:09 Freq: ONCE Status: Active Protocol: Document 11/27/24 09:31 SERGEY (Rec: 11/27/24 09:36 [id number] Rehab OT IP Assessment Subjective History Pt oriented x 3 on arrival. Pt agreeable to engage in therapy evaluation. Pt admitted on 11/26/24 due to a fall at home. History and physical: This 84-year-old very pleasant lady that lives alone has had a knee replacement approximately 2 months ago., She spent 1 months in [facility] she ended up with a postop infection requiring antibiotics for the knee, then she went to the [facility] and improved to where she wanted to go home., She went home for approximately 2 days but has fallen did not have her phone with her and had to lay on the floor until someone came to help her. Because she was unable to get up or notify anyone. Patient was evaluated in the ER for new injuries and none were found., Noting though that the right knee surgery the site is still red slightly inflamed question whether there is still some infection with the tissue. Patient is not in pain at this point in time, she knows that she is not able to live alone and would like to go back into the rehabilitation. center at [facility]. Subjective Pt had recently had a short term rehab stay following a knee replacement at a SNF. Pt reports she had gone home and was doing very well with functional transfers using rolling walker. Pt claims she was able to dress and feed herself. Family assisted with IADLs. She expresses concerns about feeling like my legs won't work . Pt required maximal assistance to complete a stand pivot transfer from chair to eob. Objective Patient Orientation Person,Place,Birthday Right Upper WFL Extremity Gross ROM Left Upper Extremity WFL Gross ROM Transfer Training Sit/Stand/Pivot Transfer Assist Level Maximum x 1 (75% assist) Chair Transfer Maximum x 1 (75% assist) Ability Chair Transfer Stand Pivot Technique Rehab OT IP prob,goals,plan Problems Date of Evaluation: 11/27/24 OT IP Problems Bed Mobility,Transfers,Balance,Self care,Safety Rehab Potential Rehab Potential Good Equipment Needs Assistive Devices Rolling / Wheeled Walker Plan OT intervention Plan Bed Mobility,Transfers,Balance,Self care,Safety, Therapeutic Exercise OT Plan Frequency Daily Duration LOS Discharge Goals Bed Mobility Ability Assistance x1 Sit to Stand Chair Moderate x 1 (50% assist) Transfer Ability Chair Transfer Moderate x 1 (50% assist) Ability Chair Transfer Stand Step Pivot Technique Chair Transfer Rolling Walker Assistive Devices Lower Body Dressing Maximum Assistance Ability Upper Body Dressing Minimal Assistance Ability Performing Toilet Maximum Assistance Hygiene Ability Overall Commode/ Moderate Assistance Toilet Transfer Ability Commode/Toilet Stand Step Pivot Transfer Technique Discharge Plan OT Discharge Plan Pt will continue to be seen for OT services while at [facility]. Pt would benefit most from short term rehab at SNF following discharge from hospital. Continued skilled therapy is important in order for patient to improve strength, safety, endurance, ADL independence, and functional transfers to reach PLOF and PLOI. Eval Complexity Eval Charge Codes 67973 - Moderate Complexity PHYSICIAN CERTIFICATION: I certify the specified therapy services for Denisa Sanon are required, authorized, and reviewed every 30 days.
--- NOTE | 2024-11-27 09:37 | P.PN_ITS ---
<Statement entered by Kevin King MD - 11/27/24 17:00> Rounded on patient after nurse practitioner. Personally examined and interviewed patient. Agree with exam findings and care plan as documented. Subjective *Date: 11/27/24 *Time: 14:52 Interval history: Patient sitting up in chair, eating breakfast this morning. Patient states that she feels well overall, is complaining of bilateral knee discomfort, chronic for her. She also states that she is having some wheezing with breathing, DuoNebs ordered as needed. She maintains O2 saturation above 92% on 2 L nasal cannula. She does state that she is interested in returning to [facility] for continued rehab services. Medical Exam Vital signs and Labs for Last 24 Hours: Vital Signs Temp Pulse Pulse Resp BP Pulse Ox O2 Del Method 11/27/24 08:55 Nasal Cannula 11/27/24 08:00 98.2 F 88 20 131/64 93 L Nasal Cannula 11/27/24 08:00 Nasal Cannula 11/27/24 06:43 Nasal Cannula 11/27/24 06:31 85 11/27/24 06:31 87 11/27/24 06:28 98 Nasal Cannula 11/27/24 05:00 Nasal Cannula 11/27/24 03:00 Nasal Cannula 11/27/24 01:00 Nasal Cannula 11/26/24 23:00 Nasal Cannula 11/26/24 21:00 Nasal Cannula 11/26/24 20:00 Nasal Cannula 11/26/24 20:00 98.1 F 75 18 100/51 L 98 Nasal Cannula 11/26/24 18:43 Nasal Cannula 11/26/24 18:38 Nasal Cannula 11/26/24 17:00 Nasal Cannula 11/26/24 16:57 98.1 F 74 15 144/66 H 95 Nasal Cannula 11/26/24 14:55 Nasal Cannula 11/26/24 11:00 Nasal Cannula O2 Flow Rate FiO2 11/27/24 08:55 2 11/27/24 08:00 2 11/27/24 08:00 2 11/27/24 06:43 2 11/27/24 06:31 11/27/24 06:31 11/27/24 06:28 2 11/27/24 05:00 2 11/27/24 03:00 2 11/27/24 01:00 2 11/26/24 23:00 2 11/26/24 21:00 2 11/26/24 20:00 2 11/26/24 20:00 2 11/26/24 18:43 11/26/24 18:38 2 28 11/26/24 17:00 11/26/24 16:57 11/26/24 14:55 11/26/24 11:00 Intake and Output 11/26/24 11/27/24 11/27/24 23:59 07:59 15:59 Intake Total 210 / 1590 480 / 480 Output Total 450 / 450 0 / 450 Balance 210 / 1140 30 / 0 30 Intake: Intake, Oral Amount 210 / 1590 480 / 480 Output: Output, Urine Amount 450 / 450 0 / 450 Other: Number of Unmeasured Voids 1 1 Number of Bowel Movements 1 Weight 115.666 kg Patient Weight 11/27/24 23:59 Weight 115.666 kg Laboratory Results - last 24 hr 11/25/24 16:37: Urine Color Yellow, Urine Appearance Clear, Urine pH 6.5, Ur Specific [place] 1.010, Urine Protein Trace, Urine Glucose (UA) Negative, Urine Ketones Negative, Urine Blood 1+ A, Urine Nitrate Negative, Urine Bilirubin Negative, Urine Urobilinogen 0.2, Ur Leukocyte Esterase 2+ A, Urine RBC Occasional, Urine WBC 3-5, Ur Squamous Epith Cells Occasional, Ur Transition Epith Cell Occ, Urine Bacteria 4+ 11/26/24 10:35: POC Glucose 177 H 11/26/24 11:00: Troponin I 0.06 H 11/26/24 16:16: POC Glucose 155 H 11/26/24 20:10: POC Glucose 141 H 11/27/24 05:20: WBC 5.6, RBC 4.44, Hgb 13.3, Hct 40.6, MCV 91.4, MCH 30.0, MCHC 32.8, RDW 13.8, Plt Count 228, MPV 10.0, Neut % (Auto) 52.6, Lymph % (Auto) 29.9, [place] % (Auto) 11.3 H, Eos % (Auto) 5.6, Baso % (Auto) 0.4, Neut # (Auto) 2.9, Lymph # (Auto) 1.7, [place] # (Auto) 0.6, Eos # (Auto) 0.3, Baso # (Auto) 0.0, Sodium 136, Potassium 4.0 D, Chloride 101, Carbon Dioxide 31 H, Anion Gap 8.0, BUN 27 H, Creatinine 1.10 H, Estimated Creat Clear 29, Estimated GFR 47 L, Est GFR ( Amer) 57 L, Glucose 164 H, POC Glucose 151 H, Calcium 8.9, Magnesium 2.0, Total Bilirubin 0.6, AST 29 D, ALT 14 D, Alkaline Phosphatase 64, Total Protein 6.1 L, Albumin 3.4 L D, Globulin 2.7, Albumin/Globulin Ratio 1.3 I & O for Labs for Last 24 Hours: Intake & Output 11/24/24 11/25/24 11/26/24 11/27/24 23:59 23:59 23:59 23:59 Intake Total 1110 / 1590 480 / 480 Output Total 450 / 450 450 / 450 Balance 660 / 1140 30 / 30 Weight 111.13 kg 115.666 kg 115.666 kg Microbiology Reports for the Last 24 Hours: Microbiology 11/25/24 16:37 Urine,Clean Catch Urine Culture - Preliminary Constitutional: Present mild distress, morbidly obese, chronically ill appearing and cooperative Head: Present atraumatic ENT: Present normal exam Neck: Present normal inspection Respiratory: Present wheezes (Expiratory), normal respiratory effort, able to speak in complete sentences and symmetric chest movement Cardiac: Present Reg Rate and Rhythm GI: Present soft, distention and normal bowel sounds; Absent tenderness Rectal (female): Present deferred (female): Present deferred Extremities: Present normal inspection and tenderness (Bilateral knees) Skin: Present intact and dry Comment:: Surgical incision right knee clean dry and intact Healing bruises on left knee from fall Neuro: Present Weakness, alert, awake, oriented x 3 and moves all extremities Assessment and Plan *Assessment and plan (1) Generalized weakness: Status: Acute Category: Medical Code(s): R53.1 - Weakness (2) Falls frequently: Status: Acute Category: Medical Code(s): R29.6 - Repeated falls (3) Urinary tract infection: Status: Acute Category: Medical Code(s): N39.0 - Urinary tract infection, site not specified (4) Insulin dependent diabetes mellitus: Status: Acute Category: Medical (5) Hypertension: Status: Acute Category: Medical Code(s): I10 - Essential (primary) hypertension (6) CHF (congestive heart failure): Status: Acute Category: Medical Code(s): I50.9 - Heart failure, unspecified Plan Ms. Sanon is a 84-year-old female who presented to the emergency department after a fall at home at home. She states she had right knee replacement in August and went to [facility] for rehab services. She signed herself out after a few weeks and went home. She ended up back in the hospital where readmission to [facility] was required. Patient continued rehab services but then decided to sign herself out to go home a few days ago, subsequently having multiple falls in the last few days. She presents to the emergency department complaining of increased weakness and complaining of moderate pain to her left knee and right hip. Patient had multiple scans in the ED none of which showed any acute traumatic injury. Lab work was drawn and no significant abnormalities were noted, EKG normal sinus rhythm. given frequent falls after returning home, hospital medicine was consulted for further medical evaluation and possible placement at discharge. Plan of care as follows: #Generalized weakness #Frequent falls ? Patient admitted due to frequent falls at home, PT/OT evaluation recommends SNF for strength building. Patient does live at home by herself. She is amendable to return to [facility] for further rehab services. Care management/social work consulted to work on arrangements. ? CBC unremarkable, CMP shows no electrolyte disturbances. Baseline kidney function BUN 27, creatinine 1.10. Blood glucose slightly elevated 150-200. Troponin elevated on admission, 0.07. Appears to be patient baseline, patient denies chest pain, no EKG changes noted on admission. #Urinary tract infection ? Patient urinalysis shows +1+ blood, 2+ leuk esterase, 3-5 WBC. Urine culture pending. ? Patient started on Levaquin 750 mg every 48 hours renally dosed. ? Patient denies dysuria, urinary hesitancy, urinary frequency, abdominal pain. #Diabetes mellitus, insulin-dependent ? Continue Lantus 25 mg subcu twice daily ? ACHS fingersticks, high dose SSI ? A1c September 2024, 6.8% #Hypertension #CHF ?Continue torsemide 50 mg daily #Gout: Continue allopurinol 100 mg daily #Morbid obesity: Complicates all aspects of care. #COPD: Continue Advair 1 puff twice daily, DuoNeb every 6 hours as needed. DNR/DNI Lovenox?VTE Diabetic diet Ambulate as tolerated?PT/OT consult
[2024-11-27 09:39] LABS: POC Glucose,Bedside 163 (70-110)
--- NOTE | 2024-11-27 10:01 | SW/DCPLANNER ---
Addendum entered by Eula Logan 11/28/24 08:39: I have updated Marcie hagen/ [facility] that patient will discharge SNF level of care today. Addendum entered by Eula Logan 11/27/24 16:05: Per Marcie patient has been approved SNF level of care. Patient will discharge to [facility] this afternoon. Addendum entered by Eula Logan 11/27/24 10:10: Per Marcie hagen/ [facility] auth has been started this AM. I will continue to update MD and patient. Original Note: Patient is requesting to return to [facility] once medically stable for discharge. Patient information has been faxed to Marcie hagen/ [facility]. Per patient is medically stable for discharge. I will continue to follow up.
--- NOTE | 2024-11-27 10:48 | HMH.PTEV ---
Physical Therapy Evaluation Rehab PT IP Evaluation Start: 11/26/24 02:25 Freq: ONCE Status: Active Protocol: Document 11/27/24 10:40 RAOUL (Rec: 11/27/24 10:47 RAOUL [id number]) Subjective/History History History Per H&P: This 84-year-old very pleasant lady that lives alone has had a knee replacement approximately 2 months ago., She spent 1 months in [facility] she ended up with a postop infection requiring antibiotics for the knee, then she went to the [facility] and improved to where she wanted to go home., She went home for approximately 2 days but has fallen did not have her phone with her and had to lay on the floor until someone came to help her. Because she was unable to get up or notify anyone. Patient was evaluated in the ER for new injuries and none were found., Noting though that the right knee surgery the site is still red slightly inflamed question whether there is still some infection with the tissue. Patient is not in pain at this point in time, she knows that she is not able to live alone and would like to go back into the rehabilitation. center at [facility] Subjective Subjective Pt reports she lives alone. Pt reports she was at rehab and was walking well. Pt was discharged home and had a fall where her legs just gave out . Pt now with difficulty transferring and ambulating. Pt is interested in continuing rehab. New diagnosis of No cancer in past 12 months? [facility] How much help from another person do you currently need... Turning from your A lot back to your side while in a flat bed without using bedrails? Moving from lying on A lot back to sitting on the side of a flat bed without using bedrails? Moving to and from a A lot bed to a chair ( including a wheelchair)? Standing up from a A lot chair using your arms? (e.g., wheelchair, bedside chair) Walking in hospital A lot room? Climbing 3-5 steps A lot with a railing? Mobility Score 12 Mobility Level [facility] Mobility 4 Move to chair/commode Mobility Calculator Rehab PT IP Eval Objective Appearance Patient Behavior Appropriate,Cooperative Patient Orientation Person,Place,Situation Difficulty following none instructions Speech Pattern Clear Ambulation Patient Able to No Ambulate Balance Ability to Arise Able, uses arms to help Sitting Balance Steady, safe Standing Balance Steady, wide stance Dynamic Sitting Good Balance Ability Dynamic Standing Poor Balance Ability Transfers Bed Transfer Ability Moderate x 1 (50% assist) Chair Transfer Maximum x 1 (75% assist) Ability Sit to Stand Bed Maximum x 1 (75% assist) Transfer Ability Rehab PT IP prob,goals,plan Problems Date of Evaluation: 11/27/24 PT IP Problems Bed Mobility,Transfers,Gait,Balance,Self care,Safety Rehab Potential Rehab Potential Good Plan PT Intervention Plan Bed Mobility,Transfers,Gait,Balance,Self care,Safety, Therapeutic Exercise Other Intervention 1-2 times Plan PT Plan Frequency Daily Duration LOS Discharge Goals Bed Transfer Ability Minimal x 1 (25% assist) Sit to Stand Chair Moderate x 1 (50% assist) Transfer Ability Discharge Plan PT Discharge Plan Initial physical therapy evaluation performed. Patient presents below baseline at this time in functional mobility, transfers, and strength. Pt not safe to return home at this time d/t current level of functional mobility. PT recommending short-term rehabilitation stay upon d/c from [facility]. Pt would benefit from skilled PT while at [facility] to prevent further functional decline and maximize safety with mobility. Eval Complexity Eval Charge Codes 65665 - Moderate Complexity PHYSICIAN CERTIFICATION: I certify the specified therapy services for Denisa Sanon are required, authorized, and reviewed every 30 days.
[2024-11-27] MEDS: humaLOG 100 UNITS/ML 10ML VIAL (SSI) SUBCUT ×3 (11:25→20:59)
[2024-11-27 16:00] VITALS: BP 117/59; PULSE 80; RESP 20; TEMP 36.7; O2SAT 97
[2024-11-27 16:54] LABS: POC Glucose,Bedside 196 (70-110)
--- NOTE | 2024-11-27 17:19 | PC.NURSE ---
pt a&ox4. resting supine in bed with visitor at bedside. requiring 2LNC to maintain sats >90%. complains of intermittent back/ knee pain. treated with tylenol per mar with reduction of pain. abx given per mar with no reaction. no needs at this time. call light within reach.
[2024-11-27 18:43] VITALS: O2SAT 93
[2024-11-27] MEDS: PANTOPRAZOLE 40MG TABLET 40 MG PO (21:01)
[2024-11-27 21:32] LABS: POC Glucose,Bedside 195 (70-110)
[2024-11-28 04:00] VITALS: BP 115/42; PULSE 75; RESP 20; TEMP 37.1; O2SAT 96; BMI 45.9
--- NOTE | 2024-11-28 04:42 | PC.NURSE ---
Pt requested a breathing treatment, contacted RT at this time
[2024-11-28] MEDS: IPRATROPIUM/ALBUTEROL 3 ML NEB IH (04:49)
[2024-11-28 04:50] VITALS: PULSE 74; PULSE 80; O2SAT 94
--- NOTE | 2024-11-28 05:06 | PC.NURSE ---
Pt is A&Ox4 and currently tolerating 2L well at this time. Pt did c/o SOB, wheezing noted throughout. Pt was treated per MAR with PRN duoneb. Pt alarm is set and active due to recent frequent falls. Pt did c/o pain in her lower back and was treated per MAR.
[2024-11-28 05:29] LABS: Albumin Level 3.4 g/dl (3.5-5.0); Chloride 100 mmol/L (98-107); Potassium 4.1 mmoL/L (3.5-5.1); Sodium 137 mmol/L (136-145)
[2024-11-28 05:32] LABS: Alanine Aminotransferase 15 U/L (12-78); Albumin/Globulin Ratio 1.3 (1.1-1.8); Alkaline Phosphatase 56 U/L (38-126); Anion Gap 8.1 mEq/L (5-15); Aspartate Amino Transferase 26 U/L (14-36); Bilirubin,Total 0.5 mg/dl (0.2-1.3); Blood Urea Nitrogen 32 mg/dl (7-17); Calcium 8.4 mg/dl (8.4-10.2); Carbon Dioxide 33 mmol/L (22.0-30.0); Creatinine Clearance Estimated 21 mL/min (50-200); Creatinine,Serum 1.50 mg/dl (0.52-1.04); Estimated Glomerular Filt Rate 33 ml/min (>60); GFR (African American) 40 ML/MIN (>60); Globulin 2.6 g/dL (1.3-3.2); Glucose 135 mg/dl (74-100); Total Protein,Serum 6.0 g/dl (6.3-8.2)
[2024-11-28] MEDS: humaLOG 100 UNITS/ML 10ML VIAL (SSI) SUBCUT (05:32)
[2024-11-28 05:43] LABS: Hematocrit 40.8 % (37.0-47.0); Hemoglobin 12.9 g/dL (12.2-16.2); Immature Granulocytes % 0.3 %; Mean Corpuscular HGB Conc 31.6 g/dL (31.8-35.4); Mean Corpuscular Hemoglobin 29.1 pg (27.0-31.2); Mean Corpuscular Volume 91.9 fl (81-99); Nucleated Red Blood Cells % 0 %; Platelet Count 213 K/mm3 (142-424); Red Blood Count 4.44 M/mm3 (4.20-5.40); Red Cell Distribution Width-SD 47.0 fL; White Blood Count 6.3 K/mm3 (4.8-10.8)
[2024-11-28 06:16] LABS: POC Glucose,Bedside 158 (70-110)
[2024-11-28 08:00] VITALS: BP 115/57; PULSE 77; RESP 20; TEMP 36.8; O2SAT 98
--- NOTE | 2024-11-28 08:03 | P.DS_ITS ---
<Statement entered by Beau Kate MD - 11/30/24 10:08> Personally evaluated patient and agree with the plan of care as outlined by the TELEVISION NEWS PHOTOGRAPHER. General Admission date:: 11/26/24 Discharge date: 11/28/24 HPI HPI HPI: This 84-year-old very pleasant lady that lives alone has had a knee replacement approximately 2 months ago., She spent [address] [facility] she ended up with a postop infection requiring antibiotics for the knee, then she went to the [facility] and improved to where she wanted to go home., She went home for approximately 2 days but has fallen did not have her phone with her and had to lay on the floor until someone came to help her. Because she was unable to get up or notify anyone. Patient was evaluated in the ER for new injuries and none were found., Noting though that the right knee surgery the site is still red slightly inflamed question whether there is still some infection with the tissue. Patient is not in pain at this point in time, she knows that she is not able to live alone and would like to go back into the rehabilitation. center at [facility]. Hospital Course Hospital Course Hospital Course: Ms. Sanon is a 84-year-old female who presented to the emergency department after a fall at home at home. She states she had right knee replacement in August and went to [facility] for rehab services. She signed herself out after a few weeks and went home. She ended up back in the hospital and where a readmission to [facility] was required. Patient continued rehab services but then decided to sign herself out to go home a few days ago, subsequently having multiple falls in the last few days. She presents to the emergency department complaining of increased weakness and complaining of moderate pain to her left knee and right hip. Patient had multiple scans in the ED none of which showed any acute traumatic injury. Lab work was drawn and no significant abnormalities were noted, EKG normal sinus rhythm. given frequent falls after returning home, hospital medicine was consulted for further medical evaluation and possible placement at discharge. Plan of care as follows: #Generalized weakness #Frequent falls ? Patient admitted due to frequent falls at home, PT/OT evaluation recommends SNF for strength building. Patient does live at home by herself. Arrangements for patient to go to [place] longterm for rehab services at discharge. ? CBC unremarkable, CMP shows no electrolyte disturbances. Baseline kidney function BUN 32, creatinine 1.5. Patient baseline creatinine 1.1. Continue to monitor at nursing facility. Blood glucose slightly elevated 150-200. Troponin elevated on admission, 0.07. Appears to be patient baseline, patient denies chest pain, no EKG changes noted on admission. #Urinary tract infection ? Patient urinalysis shows +1+ blood, 2+ leuk esterase, 3-5 WBC. Urine culture reports gram-negative rods. Will continue to follow after discharge for culture /sensitivity. ? Patient started on Levaquin 750 mg every 48 hours renally dosed for total of 5 days. ? Patient denies dysuria, urinary hesitancy, urinary frequency, abdominal pain. #Diabetes mellitus, insulin-dependent ? Continue Lantus 25 mg subcu twice daily ? ACHS fingersticks, high dose SSI ? A1c September 2024, 6.8% #Hypertension #CHF ?Continue torsemide 50 mg daily and spironolactone 25 mg daily. #Gout: Continue allopurinol 100 mg daily, continue tramadol 50 mg every 6 hours as needed for severe pain. #Morbid obesity: Complicates all aspects of care. #COPD: Continue Advair 1 puff twice daily. Patient does require supplemental O2 at baseline, stable on 2 L 94% O2. Continue albuterol inhaler every 4 hours as needed for shortness of breath. #GERD: Start pantoprazole 40 mg at bedtime. Total time spent on discharge 35 minutes in counseling, documentation, chart review, and direct care with patient. Exam Data for Last 24 hours Vital signs and Labs for Last 24 Hours: Temp Pulse Resp BP Pulse Ox O2 Del Method O2 Flow Rate 98.7 F 74 20 115/42 L 94 L Nasal Cannula 2 11/28/24 04:00 11/28/24 04:50 11/28/24 04:00 11/28/24 04:00 11/28/24 04:50 11/28/24 07:00 11/28/24 07:00 FiO2 28 11/26/24 18:38 Laboratory Results - last 24 hr 11/27/24 08:29: POC Glucose 163 H 11/27/24 16:44: POC Glucose 196 H 11/27/24 20:58: POC Glucose 195 H 11/28/24 04:47: WBC 6.3, RBC 4.44, Hgb 12.9, Hct 40.8, MCV 91.9, MCH 29.1, MCHC 31.6 L, RDW 13.8, Plt Count 213, MPV 10.1, Neut % (Auto) 59.6, Lymph % (Auto) 25.8, [place] % (Auto) 10.8 H, Eos % (Auto) 3.2, Baso % (Auto) 0.3, Neut # (Auto) 3.8, Lymph # (Auto) 1.6, [place] # (Auto) 0.7, Eos # (Auto) 0.2, Baso # (Auto) 0.0, Sodium 137, Potassium 4.1, Chloride 100, Carbon Dioxide 33 H, Anion Gap 8.1, BUN 32 H, Creatinine 1.50 H D, Estimated Creat Clear 21, Estimated GFR 33 L, Est GFR ( Amer) 40 L D, Glucose 135 H, Calcium 8.4, Total Bilirubin 0.5, AST 26, ALT 15, Alkaline Phosphatase 56, Total Protein 6.0 L, Albumin 3.4 L, Globulin 2.6, Albumin/Globulin Ratio 1.3 11/28/24 05:31: POC Glucose 158 H I & O for Last 24 hours: Intake & Output 11/25/24 11/26/24 11/27/24 11/28/24 23:59 23:59 23:59 23:59 Intake Total 1110 / 1590 1560 / 1680 120 / 120 Output Total 450 / 450 3175 / 3175 750 / 750 Balance 660 / 1140 -1615 / -1495 -630 / -630 Weight 111.13 kg 115.666 kg 115.666 kg 117.662 kg Microbiology Reports for the Last 24 Hours: Microbiology 11/25/24 16:37 Urine,Clean Catch Urine Culture - Preliminary Constitutional Constitutional: no acute distress, morbidly obese, chronically ill appearing and cooperative *Routine HEENT Exam Head: Present normocephalic Eye: Present EOMI and PERRL ENT: Present mucous membranes moist *Routine Neck Exam Neck: Present supple; Absent lymphadenopathy *Routine Respiratory Exam Respiratory: Present CTA bilaterally and normal respiratory effort; Absent accessory muscle use, rhonchi, wheezes or crackles *Routine Cardiovascular Exam Cardiovascular: Present RRR *Routine Abdominal Exam Abdominal: Present soft and normoactive bowel sounds; Absent tenderness *Routine Rectal Exam Patient deferred: visual exam *Routine Exam Patient deferred: external exam *Routine Extremities Exam Extremities: Present edema (1+ to Bilateral knees); Absent cyanosis or clubbing *Routine Skin Exam Skin: Present intact, warm and wounds (Surgical incision right knee); Absent rash *Routine Neurological Exam Neurological: Present alert, oriented X3 and moving all extremities; Absent altered mental status Results Data Completed and Pending Labs on day of discharge: Labs from last 24 hours 11/28/24 11/28/24 11/27/24 05:31 04:47 20:58 WBC 6.3 RBC 4.44 Hgb 12.9 Hct 40.8 MCV 91.9 MCH 29.1 MCHC 31.6 L RDW 13.8 Plt Count 213 MPV 10.1 Neut % (Auto) 59.6 Lymph % (Auto) 25.8 [place] % (Auto) 10.8 H Eos % (Auto) 3.2 Baso % (Auto) 0.3 Neut # (Auto) 3.8 Lymph # (Auto) 1.6 [place] # (Auto) 0.7 Eos # (Auto) 0.2 Baso # (Auto) 0.0 Sodium 137 Potassium 4.1 Chloride 100 Carbon Dioxide 33 H Anion Gap 8.1 BUN 32 H Creatinine 1.50 H D Estimated Creat Clear 21 Estimated GFR 33 L Est GFR ( Amer) 40 L D Glucose 135 H POC Glucose 158 H 195 H Calcium 8.4 Total Bilirubin 0.5 AST 26 ALT 15 Alkaline Phosphatase 56 Total Protein 6.0 L Albumin 3.4 L Globulin 2.6 Albumin/Globulin Ratio 1.3 11/27/24 11/27/24 16:44 08:29 WBC RBC Hgb Hct MCV MCH MCHC RDW Plt Count MPV Neut % (Auto) Lymph % (Auto) [place] % (Auto) Eos % (Auto) Baso % (Auto) Neut # (Auto) Lymph # (Auto) [place] # (Auto) Eos # (Auto) Baso # (Auto) Sodium Potassium Chloride Carbon Dioxide Anion Gap BUN Creatinine Estimated Creat Clear Estimated GFR Est GFR ( Amer) Glucose POC Glucose 196 H 163 H Calcium Total Bilirubin AST ALT Alkaline Phosphatase Total Protein Albumin Globulin Albumin/Globulin Ratio Preliminary micro results at discharge 11/25/24 16:37 Urine Culture - Preliminary Urine,Clean Catch DS: Diagnosis Discharge Diagnosis (1) Generalized weakness: Status: Acute Code(s): R53.1 - Weakness (2) Falls frequently: Status: Acute Code(s): R29.6 - Repeated falls (3) Urinary tract infection: Status: Acute Code(s): N39.0 - Urinary tract infection, site not specified (4) Insulin dependent diabetes mellitus: Status: Acute (5) Hypertension: Status: Acute Code(s): I10 - Essential (primary) hypertension (6) CHF (congestive heart failure): Status: Acute Code(s): I50.9 - Heart failure, unspecified Meds Home Medications and Allergies Home Medications ?Medication ?Instructions ?Recorded ?Confirmed ?Type albuterol sulfate 90 mcg/actuation 4 inh inhalation Q4 HP PRN 10/04/24 11/26/24 Rx aerosol inhaler shortness of breath or wheez ing 30 days #8.5 grams allopurinol 100 mg tablet 100 mg PO DAILY 30 days #30 tabs 10/04/24 11/26/24 Rx cholecalciferol (vitamin D3) 50 50 mcg PO DAILY 30 day s #30 tabs 10/04/24 11/26/24 Rx mcg (2,000 unit) chewable tablet fluticasone 500 mcg-salmeterol 50 1 inh inhalation BID RT #60 ea 10/04/24 11/26/24 Rx mcg/dose blistr powdr for inhalation (Advair Diskus) insulin aspart U-100 100 unit/mL 10 unit (0.1 mL) SQ T ID 30 days #9 10/04/24 11/26/24 Rx (3 mL) subcutaneous pen (Novolog mL FlexPen U-100 Insulin aspart) insulin glargine 100 unit/mL (3 25 unit (0.25 mL) SQ B ID 30 days 10/04/24 11/26/24 Rx mL) subcutaneous pen (Lantus #15 mL Solostar U-100 Insulin) spironolactone 25 mg tablet 25 mg PO DAILY 30 days #30 tabs 10/04/24 11/26/24 Rx torsemide 100 mg tablet 50 mg (1/2 x 100 mg) PO ANAMIKA Y 30 10/04/24 11/26/24 Rx days #15 tabs tramadol 50 mg tablet 50 mg PO Q6HP PRN Severe Chapis n 11/26/24 11/26/24 History (Scale Score 7-10) levofloxacin 750 mg tablet 750 mg PO Q48H #4 tabs 11/17 06/13 Rx nystatin 100,000 unit/gram topical 1 applic topical QI D 10 days #1 g 11/28/24 Rx powder pantoprazole 40 mg tablet,delayed 40 mg PO HS 30 days #30 tabs 11/28/24 Rx release New Prescriptions to Start Prescriptions: Kate Zamorano nystatin Kate Hurtado pantoprazole Kate Hurtado Allergies Allergy/AdvReac Type Severity Reaction Status Date / Time Penicillins Allergy Intermediate Unknown Verified 10/04/24 10:56 allergy reaction codeine (CODEINE) Allergy Mild Unknown Verified 10/04/24 10:56 allergy reaction iodine (IODINE) Allergy Mild Unknown Verified 10/04/24 10:56 allergy reaction latex (LATEX) Allergy Mild Unknown Verified 10/04/24 10:56 allergy reaction oxycodone (OXYCODONE) Allergy Mild Unknown Verified 10/04/24 10:56 allergy reaction Sulfa (Sulfonamide Allergy Mild Unknown Verified 10/04/24 10:56 Antibiotics) (SULFA allergy (SULFONAMIDE ANTIBIOTICS)) reaction Cephalosporins Allergy Unknown Verified 10/04/24 10:56 allergy reaction doxycycline Allergy Unknown Verified 10/04/24 10:56 allergy reaction exenatide (From [place]) Allergy Unknown Verified 10/04/24 10:56 allergy reaction glyburide Allergy Unknown Verified 10/04/24 10:56 allergy reaction hyoscyamine (From Levbid) Allergy Unknown Verified 10/04/24 10:56 allergy reaction Discharge Plan Disposition Patient Disposition: [facility] SNF Condition: Fair Discharge Order Discharge Orders: Discharge Order (Routine); Ordered 11/28/24 Ordered By: Kate Hurtado Follow up Plan Prescriptions/Medication Reconciliation: New levofloxacin 750 mg Tablet 750 mg PO Q48H Qty: 4 0RF pantoprazole 40 mg Tablet,Delayed Release (Dr/Ec) 40 mg PO HS 30 Days Qty: 30 0RF nystatin 100,000 unit/gram Powder 1 applic topical QID 10 Days Qty: 1 0RF Continued allopurinol 100 mg tablet 100 mg PO DAILY 30 Days Qty: 30 0RF spironolactone 25 mg tablet 25 mg PO DAILY 30 Days Qty: 30 0RF fluticasone propion-salmeterol [Advair Diskus] 500-50 mcg/dose blister with device 1 inh inhalation BIDRT Qty: 60 0RF albuterol sulfate 90 mcg/actuation HFA aerosol inhaler 4 inh inhalation Q4HP PRN (Reason: shortness of breath or wheezing) 30 Days Qty: 8.5 0RF insulin aspart U-100 [Novolog FlexPen U-100 Insulin] 100 unit/mL (3 mL) insulin pen 10 unit SQ TID 30 Days Qty: 9 0RF Patient Comments: INJECT 15 UNITS UNDER THE SKIN THREE TIMES DAILY insulin glargine [Lantus Solostar U-100 Insulin] 100 unit/mL (3 mL) insulin pen 25 unit SQ BID 30 Days Qty: 15 0RF Patient Comments: INJECT 40 UNITS UNDER SKIN TWO TIMES DAILY cholecalciferol (vitamin D3) 50 MCG tablet,chewable 50 mcg PO DAILY 30 Days Qty: 30 0RF torsemide 100 MG tablet 50 mg PO DAILY 30 Days Qty: 15 0RF tramadol 50 mg tablet 50 mg PO Q6HP PRN (Reason: Severe Pain (Scale Score 7-10)) Problem Reconciliation Problems Reviewed?: Yes Patient Discharge Instructions ACTIVITY: Ambulate as tolerated and Up with assistance DIET: diabetic diet Patient Instructions: Type 2 Diabetes, DI for Urinary Tract Infection (UTI) Print Language: Sami Providers Primary Care Provider: Norma Au Admit Provider: Kevin King Attending Provider: Kevin King
[2024-11-28 08:26] LABS: Thyroid Stimulating Hormone 3.18 uIU/mL (0.465-4.68)
[2024-11-28] MEDS: NYSTATIN TOPICAL POWDER 30GM TP (08:58)
[2024-11-28] MEDS: ALLOPURINOL 100MG TABLET 100 MG PO (08:58)
[2024-11-28] MEDS: TORSEMIDE 20MG TABLET 50 MG PO (08:58)
[2024-11-28] MEDS: INSULIN GLARGINE 100 UNITS/ML 3ML FLEXPEN 25 UNIT SUBCUT (08:58)
[2024-11-28] MEDS: DOCUSATE SODIUM 100 MG CAPSULE PO (08:58)
[2024-11-28 09:08] LABS: POC Glucose,Bedside 172 (70-110)
[2024-11-28 09:26] LABS: Vitamin B12 280 pg/mL (239-931)
[2024-11-28 09:52] LABS: Folate 3.87 ng/mL
[2024-11-30 16:10] LABS: POC Glucose,Bedside 243 (70-110)
== END 2024-11-28 12:49 ==
LOC: ER 11-26 00:50 → 2ND 11-26 00:54
PROVIDERS: Student in an Organized Health Care Education/Training Program; Admitting Provider Internal Medicine Adolescent Medicine; Emergency Provider Student in an Organized Health Care Education/Training Program; PCP Nurse Practitioner Family; Visit Provider Internal Medicine Adolescent Medicine
DX: R53.1 Weakness (principal); R62.7 Adult failure to thrive; R53.81 Other malaise; R29.6 Repeated falls; E66.01 Morbid (severe) obesity due to excess calories; I13.0 Hypertensive heart and chronic kidney disease with heart failure and stage 1 through stage 4 chronic kidney disease, or unspecified chronic kidney disease; I50.9 Heart failure, unspecified; N18.9 Chronic kidney disease, unspecified; E11.22 Type 2 diabetes mellitus with diabetic chronic kidney disease; E11.649 Type 2 diabetes mellitus with hypoglycemia without coma; H91.90 Unspecified hearing loss, unspecified ear; N39.0 Urinary tract infection, site not specified; I25.10 Atherosclerotic heart disease of native coronary artery without angina pectoris; K21.9 Gastro-esophageal reflux disease without esophagitis; J44.89 Other specified chronic obstructive pulmonary disease; K57.30 Diverticulosis of large intestine without perforation or abscess without bleeding; M10.9 Gout, unspecified; I44.7 Left bundle-branch block, unspecified; Z79.4 Long term (current) use of insulin; Z88.0 Allergy status to penicillin; Z88.5 Allergy status to narcotic agent; Z91.041 Radiographic dye allergy status; Z73.89 Other problems related to life management difficulty; Z91.040 Latex allergy status; Z88.2 Allergy status to sulfonamides; Z96.651 Presence of right artificial knee joint; Z68.41 Body mass index [BMI] 40.0-44.9, adult; Z88.1 Allergy status to other antibiotic agents; Z88.8 Allergy status to other drugs, medicaments and biological substances; Z79.899 Other long term (current) drug therapy; Z79.51 Long term (current) use of inhaled steroids; Z79.891 Long term (current) use of opiate analgesic; Z87.891 Personal history of nicotine dependence
CPT/HCPCS: 36415; 70450; 71045; 72125; 72170; 72192; 80053; 81001; 82550; 82607; 82746; 82803; 82962; 83735; 84100; 84443; 84484; 85025; 87086; 87088; 87186; 93005; 94640; 94761; 97162; 97166; 97530; 99285; G0378; J1650

== ENCOUNTER 2024-12-11 09:32 | Outpatient (CLI) | payer MEDICARE, SELFPAY ==
--- OUTSIDE RECORDS SUMMARY | 2024-10-10 16:34 | XMS_ITS | Encounter Summary ---
Author Organization [employer] ([place], [place], [place], [place]) Address [address] [place] [address] Care Team Providers Care Slag Mixer Name Role Phone Norma Au APRN Primary Care Provider [phone] Reason for Visit * Auth/Cert (Routine) Specialty Diagnoses / Procedures Referred By Contac t Referred To Contact Diagnoses Joint infection (HCC) Post op infection POST OP INFECTION [facility] [address] [address] [place] [address] Phone: tel: fax: [facility] [address] [place] [address] Phone: tel: fax: Referral ID Status Reason Start Date Expiration Date Visits Re quested Visits Authorized [id number] 1 1 Encounter Details Date Type Department Care Team (Late st Contact Info) Description 10/10/2024 4:34 PM EDT - 10/14/2024 3:30 PM EDT Hospital Encounter [facility] [address] [place] [address] Brigitte Boone MD [address] [facility] [address] [id number] 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 No 10/10/2024 Interpersonal Safety Answer Date Record ed How often does anyone, oseas hanna family and friends, physically hurt you? Never 10/10/2024 How often does anyone, oseas hanna family and friends, insult or talk down to you? Never 10/10/2024 How often does anyone, oseas hanna family and friends, threaten you with harm? Never 10/10/2024 How often does anyone, oseas hanna family and friends, scream or curse at you? Never 10/10/2024 Housing Stability Answer Date Recorded What is your living situation today? I have a [facility] place to live 10/10/[address] you li ve. Do you have problems with any of the following? None of the above 10/10/2024 Food Insecurity Answer Date Recorded Within the past 12 months, y ou worried that your food would run out before you got money to buy more. Never true 10/10/2024 Within the past 12 months, t he food you bought just didn't last and you didn't have money to get more. Never true 10/10/2024 Transportation Needs Answer Date Record ed In the past 12 months, has l ack of reliable transportation kept you from medical appointments, meetings, work or from getting things needed for daily living? No 10/10/2024 Financial Resource Strain Answer Date R ecorded How hard is it for you to pa y for the very basics like food, housing, medical care, and heating? Would you say it is: Not hard at all 10/10/2024 Employment Answer Date Recorded Do you want help finding or keeping work or a job? I do not need or want help 10/10/2024 Family and Community Support Answer Theo e Recorded If for any reason you need h elp with day-to-day activities such as bathing, preparing meals, shopping, managing finances, etc., do you get the help you need? I don't need any help 10/10/2024 Feeling Lonely or Isolated 0 10/10 Educational Attainment Answer Date Jesse rded Do you speak a language other than Italian at ho me? No 10/10/2024 Do you want help with school or training? For example, starting or completing job training or getting a high school diploma, GED or equivalent. No 10/10/2024 Physical Activity Answer Date Recorded Number of minutes of exercise per week 0 10/10/2024 Self Management Answer Date Recorded Because of a physical, menta l, or emotional condition, do you have serious difficulty concentrating, remembering, or making decisions? (5 years or older) No 10/10/2024 Because of a physical, menta l, or emotional condition, do you have difficulty doing errands alone such as visiting a doctor's office or shopping? (15 years or older) Yes 10/10/2024 Substance Use Answer Date Recorded How many times in the past y ear have you used prescription drugs for non-medical reasons? Never 10/10/2024 How many times in the past year have you used il legal drugs? Never 10/10/2024 Mental Health Answer Date Recorded Calculation of above two rows 0 Comments No Sex and Gender Information Value Date Recorded Sex Assigned at Not on file Legal Sex Female 11:15 AM CDT Gender Identity Not on file Sexual Orientation Not on file documented as of this encounter Last Filed Vital Signs Vital Sign Reading Time Taken Comments Blood Pressure 157/63 10/14/2024 2:52 PM EDT Pulse 70 10/14/2024 2:52 PM EDT Temperature 36.3 C (97.3 F) 10/14/2024 2:52 PM EDT Respiratory Rate 18 10/14/2024 2:52 PM EDT Oxygen Saturation 99% 10/14/2024 2:52 PM EDT Inhaled Oxygen Concentration 30% 10/14/2024 4 :27 AM EDT Weight 110.6 kg (243 lb 13.3 oz) 10/10/2024 5:00 PM EDT Height 160 cm (5' 2.99 ) 10/10/2024 5:00 PM EDT Body Mass Index 43.2 10/10/2024 5:00 PM EDT documented in this encounter Discharge Summaries * Brigitte Boone MD - 10/14/2024 11:29 AM EDT Images from the original note were not included. Patient Name: Louie Sanon : 1940 Date of Admission: 10/10/2024 Date of Discharge: 10/14/2024 Primary Care Physician: Norma Au APRN Consultations: Treatment Team: Consulting Physician: David Fulton MD Discharge Diagnoses: Post-op infection s/p Right TKA Chronic hypoxic respiratory failure H/O asthma / COPD with frequent exacerbations Chronic diastolic heart failure Hypertension CAD Chronic LBBB CKD Type II diabetes mellitus MARCELA Morbid obesity Gout Chronic pain - Reason for Admission: Louie Sanon is a 84 y.o. female with past medical history of chronic kidney disease, COPD,coronary artery disease, diabetes, hyperlipidemia, hypertension, obstructive sleep apnea, she was sent from [facility] orthopedic for postoperative infection, status post right TKA 08/23/2024. . Patientreported after her procedure she started having swelling redness and pain getting worse, she deniesfever or chills. She was seen by her orthopedic and she was sent in for incision and drainage tomorrow Hospital Course: Patient was admitted for postoperative infection status post right TKA, she was evaluated by infectious disease and orthopedic, patient underwent incision and drain and linear exchange 10/11, surgicalculture positive for MRSA, infectious disease recommended continue with daptomycin Daptomycin 700 mg IV q24. Anticipate continuing this antibiotic at least until 10/25/24 for a 2 week course and reassess. May need up to 6 weeks of IV antibiotics but if she is significantly improving then we may be able to transition to PO after 2-3 weeks of IV antibiotics.. Patient need to follow-up with infectiousdisease and orthopedic as an outpatient Per ID noted 1. Daptomycin 700 mg IV q24. Anticipate continuing this antibiotic at least until 10/25/24 for a 2 week course and reassess. May need up to 6 weeks of IV antibiotics but if she is significantly improving then we may be able to transition to PO after 2-3 weeks of IV antibiotics. 2. Weekly cbc, cmp, crp, and cpk level- labs need to be faxed to [facility] at [phone] 3. Weekly PICC line dressing changes 4. Follow up in my clinic on 10/25/24. Clinic to call with the appointment time 5. Please fax a copy of my orders to [phone] and call [phone] with final discharge plans Studies Performed: Procedures Performed: S/P underwent I&D and liner exchange 10/11 Discharge Medications: Your medication list CONTINUE taking these medications Instructions Comments Quantity Refills acetaminophen 325 MG tablet Commonly known as: TYLENOL Take 2 tablets (650 mg total) by mouth every 6 (six) hours as needed. 0 * albuterol 90 mcg/actuation inhaler Inhale 2 [...] (2,000 Units total) by mouth daily. 0 Lantus Solostar U-100 Insulin 100 unit/mL (3 mL) Inpn Generic drug: insulin glargine Inject 40 Units under the skin 2 (two) times daily. 0 mupirocin 2 % ointment Commonly known as: BACTROBAN 1 Application 3 (three) times daily. 0 NovoLOG U-100 Insulin aspart 100 unit/mL injection Generic drug: insulin aspart U-100 Inject 15 Units under the skin 3 (three) times daily before meals. 0 ondansetron 4 MG tablet Commonly known as: ZOFRAN Take 1 tablet (4 mg total) by mouth every 8 (eight) hours as needed for nausea. 0 OXYGEN-AIR DELIVERY SYSTEMS MISC 2 liter at night time. . 0 spironolactone 25 MG tablet Commonly known as: ALDACTONE Take 1 tablet (25 mg total) by mouth daily. 0 torsemide 100 MG tablet Commonly known as: DEMADEX Take 0.5 tablets (50 mg total) by mouth daily. 0 traMADoL 50 mg tablet Commonly known as: ULTRAM Take 1 tablet (50 mg total) by mouth every 6 (six) hours as needed for pain for up to 3 days. Max Daily Amount: 200 mg 12 tablet 0 * This list has 2 medication(s) that are the same as other medications prescribed for you. Read thedirections carefully, and ask your doctor or other care provider to review them with you. Where to Get Your Medications These medications were sent to [facility] [place] [place] - [address], [facility] [address] traMADoL 50 mg tablet Physical Exam BP (!) 145/62 Pulse 65 Temp 97.3 ??F (36.3 ??C) Resp 22 Ht 1.6 m (5' 2.99 ) Wt 110.6 kg (243 lb 13.3 oz) SpO2 96% BMI 43.20 kg/m?? Discharge Instructions Discharge Diet: Discharge Activity: Discharge Follow UP: Contact information for follow-up Wilfrido Stafford MD Specialty: Orthopedic Surgery [address] [facility] [address] Next Steps: Follow up in 3 day(s) David Bernal MD Specialty: General Surgery, Bariatric Surgery [address] [facility] [address] Next Steps: Follow up in 1 week(s) Time Spent: 33 min Electronically signed by Brigitte Boone MD, 10/14/24, 11:54 AM EDT documented in this encounter Discharge Instructions * Attachments The following attachments cannot be sent through Care Everywhere. * Prosthetic Joint Infection (Italian) * Arthritis [id number] (Italian) * Arthritis (Italian) * Septic Arthritis (Italian) documented in this encounter Medications at Time [...] every 6 (six) hours as needed for pain for up to 3 days. Max Daily Amount: 200 mg 12 tablet 10/14/2024 documented as of this encounter Progress Notes * Socorro Flores RN - 10/14/2024 3:30 PM EDT Discharge Plan Progress Note CM left a message with nurse for Dr. Fulton concerning final antibiotic plan and updated that patient discharged over the weekend to [facility]. HARMONY left call back numberif needed. Socorro Flores RN * Sean Olmedo PT - 10/14/2024 2:02 PM EDT Images from the original note were not included. Inpatient Physical Therapy Attempt to Treat Patient Name: Louie Sanon Birthday: 1940 Date of Attempt: 10/14/2024 Timed Code Treatment (min): Rehab zero charge x 1 Patient declined treatment at this time, states she will be discharging soon and would like to save my energy. She and her visitor, however, note she has not had anything for lunch, and patient notes 6/10 pain in right knee. Ice in Polar care device was refreshed, and RN notified with regard to pain. PT also found crackers and peanut butter for patient. Time in room or performing service/recovery/patient satisfaction activities [phone] Electronically signed by Sean Olmedo PT - 10/14/2024 - 2:02 PM EDT * Socorro Flores RN - 10/14/2024 11:35 AM EDT 10/14/24 1134 Final Discharge Plan PCP referral provided? No Community Referral Discussed with Patient? Yes Patient appealing discharge? No Does the patient have the ability to fill and receive their discharge medications? Yes Patient returning to prior living situation? Yes Support Systems Family members Discharge Disposition SNF Agency Type SNF SNF Name and Number [facility] [phone] Per previous top case assembler tommy Bailon was approved yesterday and was just waiting on final antibiotic plan for discharge. CM received consult this morning with antibiotic plan and faxed to [facility]. CM spoke with MARIXA Velasquez at facility and she confirms receiving faxed order and states that patient can admit today. DC summary to be faxed to [phone]. Number forreport is [phone]. CM faxed copy of antibiotic order/plan to [facility] office as ordered to [phone]. Family to transport. Packet in chart. CM updated nurse and provider. CM faxed dc summary to [phone]. Provided fax number to nurse also in case facility reports notreceiving. Requested nurse to place copy of dc summary and recent notes in packet to send with patient. * Socorro Flores RN - 10/14/2024 10:28 AM EDT HARMONY left a message for Marcie with [facility] at 0940 this morning, requested a return call to discuss discharge today, no call back at this time. HARMONY called facility directly and spoke with Eva. Updated that precert is approved but was waiting on final IV antibiotic plan and advised that is now ordered. HARMONY faxed antibiotic orders and updated notes to facility at [phone]. Requested for Eva to call back after review if she is able to admit today. * David Fulton MD - 10/14/2024 7:40 AM EDT Images from the original note were not included. Infectious Disease Progress Note Patient Name: Louie Sanon : 1940 Date of Consult: 10/11/24 Admission Date: 10/10/2024 Requesting Provider: Brigitte Boone MD Evaluating Physician: David Fulton MD Chief Complaint: right knee pain, redness, and swelling Reason for Consultation: joint infection History of present illness: Louie Sanon is a 84 y.o. female with history of Chronic kidney disease, COPD, coronary artery disease, hypertension, hyperlipidemia, obstructive sleep apnea, and diabetes mellitus who was sent from [facility] orthopedic surgery yesterday for postoperative infection status post right TKA procedure on 08/23/[address] Stafford. Shortly after her procedure she started having swelling, redness, and worsening pain. She was not having any fevers or chills. She was seen by Dr. Stafford yesterday and was sent to the hospital for I&D procedure. She has remained afebrile since arrival. White blood cell count was normal at 6.9.Creatinine is elevated to 1.52.CRP was 0.6. Procalcitonin was less than 0.14. Blood cultures have been sent and are in progress. The patient is not currently on any antibiotics. She does have listed allergies to penicillin, cephalosporins, Levaquin, and sulfa antibiotics. She was given antibiotics with? Cefazolin perioperatively on 08/23/2024 and it appears that she tolerated this okay. ID has been consulted for antibiotic recommendations for the patient's right knee prosthetic joint infection. 10/12/24: s/p I&D procedure by Dr. Stafford on 10/11. superficial infection of subcutaneous tissue with no obvious communication to the joint noted intraoperatively. High risk patient for involvement of hardware. Synovial fluid with 1,861 wbc. Tissue cultures from surgery are in progress. Gram stain with GPC in pairs and clusters. Pain under ok control. No fevers. No n/v/d. Plan for PICC placement soon. Plan will be for her to discharge back to SNF for rehab and IV abx in the near future. 10/13/24: doing ok. Pain under decent control. No fevers. No n/v. PICC line placed. Surgical cultures with staph aureus thus far. 10/14/24: the patient remains afebrile. Surgical cultures with MRSA. Pain is under control. No n/v/d. No rashes reported. PICC line site is doing ok. Review of Systems As above Past Medical History: Diagnosis Date Arthritis Asthma [...] 08/23/2024 Procedure: RIGHT TOTAL KNEE ARTHROPLASTY; Surgeon: Wilfrido Stafford MD; Location: [facility]; Service: Orthopedic Surgery; Laterality: Right; Slight Bruising noted at site of bovie pad removal, Left thigh CARDIAC CATHETERIZATION GALLBLADDER SURGERY HYSTERECTOMY I&D,ABSCESS LEG Right 10/11/2024 Procedure: IRRIGATION AND DEBRIDEMENT, SUBCUTANEOUS TISSUE, SKIN, WITH JOINT ASPIRATION AND CLOSURE, POST TOTAL KNEE REPLACEMENT; Surgeon: Wilfrido Stafford MD; Location: [facility] [address] [facility]; Service: Orthopedic Surgery; Laterality: Right; Procedure on Brain Mass removed. TONSILLECTOMY Social History Socioeconomic History Marital status: / Spouse name: Not on file Number of children: Not on file Years of education: Not on file Highest education level: Not on file Occupational History Not on file Tobacco Use Smoking status: Former Types: Cigarettes Smokeless tobacco: Never Tobacco comments: Patient was a 3 ppd smoker x 20 years. Stopped smoking in Substance and Sexual Activity Alcohol use: Never Drug use: Never Sexual activity: Not on file Other Topics Concern Not on file Social History Narrative Not on file Social Drivers of Health Financial Resource Strain: Low Risk (10/10/2024) Financial Resource Strain Struggle to pay for basics: Not hard at all Food Insecurity: No Food Insecurity (10/10/2024) Food Insecurity Food run out past 12 months: Never true Food did not last past 12 months: Never true Transportation: No Transportation Needs (10/10/2024) Transportation Needs Transportation unreliable past 12 months: No Physical Activity: Inactive (10/10/2024) Physical Activity Minutes of exercise per week: 0 Social Connections: Unknown (10/10/2024) Family and Community Support Help with Day to Day Activities: I don't need any help Feeling Lonely or Isolated: 0 No family history on file. Allergies Allergen Reactions Codeine Hives Can't remember Latex Dermatitis Patient can't remember Penicillin Hives Byetta [Exenatide] Can't remember Cephalosporins Patient can't remember-given in OR 08/24/24. No reaction reported. Doxycycline Patient can't remember Glyburide Patient can't remember Levaquin [Levofloxacin] Patient can't remember Levbid [Hyoscyamine Sulfate] Patient can't remember Oxycodone Can't remember Percodan [Oxycodone-Aspirin] Patient can't remember Sulfa (Sulfonamide Antibiotics) Patient can't remember Antibiotics: Other Medications: Current Facility-Administered Medications Medication Dose Route Frequency Provider Last Rate Last Admin acetaminophen (TYLENOL) tablet 1,000 mg 1,000 mg oral Q6H PRN Brigitte Boone MD 1,000 mg at 10/13/24 1624 albuterol 2.5 mg /3 mL (0.083 %) nebulizer solution 2.5 mg 2.5 mg nebulization Q4H PRN Brigitte Boone MD allopurinoL (ZYLOPRIM) tablet 100 mg 100 mg oral Daily Brigitte Boone MD 100 mg at 10/13/24 1004 DAPTOmycin (CUBICIN) in sodium chloride 0.9% (NS) PF IV push 700 mg 700 mg intravenous Q24H David Fulton MD 700 mg at 10/13/24 2216 dextrose 50% (D50W) injection 25 g 25 g intravenous Q15 Min PRN Brigitte Boone MD glucagon injection 1 mg 1 mg intraMUSCULAR Q15 Min PRN Brigitte Boone MD glucose chew tab 16 g 16 g oral Q15 Min PRN Brigitte Boone MD hydrALAZINE (APRESOLINE) injection 5 mg 5 mg intravenous Q6H PRN Brigitte Boone MD insulin glargine-yfgn (SEMGLEE) solution 20 Units 20 Units subcutaneous Every Night Brigitte Boone MD 20 Units at 10/13/242153 insulin glargine-yfgn (SEMGLEE) solution 20 Units 20 Units subcutaneous QAM Brigitte Boone MD 20 Units at 10/14/24 0622 insulin lispro (HUMALOG, ADMELOG) injection 0-6 Units 0-6 Units subcutaneous 4x Daily AC Brigitte Boone MD 2 Units at 10/14/24 0634 miconazole (MICOTIN) 2 % powder topical BID Nadir Stewart NP Given at 10/13/242153 ondansetron (ZOFRAN-ODT) disintegrating tablet 4 mg 4 mg oral Q8H PRN Brigitte Boone MD Or ondansetron (ZOFRAN) injection 4 mg 4 mg intravenous Q8H PRN Brigitte Boone MD sodium chloride flush 10 mL 10 mL intravenous PRN Brigitte Boone MD traMADoL (ULTRAM) tablet 50 mg 50 mg oral Q6H PRN Brigitte Boone MD 50 mg at 10/13/242152 Physical Exam: Vital Signs Vitals: 10/14/24 0435 BP: (!) 145/62 Pulse: 65 Resp: 22 Temp: 97.3 ??F (36.3 ??C) SpO2: 97% GENERAL: Awake and alert, in no acute distress. Frail. Morbidly obese HEENT: Normocephalic, atraumatic. No external oral lesions noted HEART: RRR; No murmur. LUNGS: CTAB. Normal respiratory effort. Nonlabored. ABDOMEN: Obese abdomen. Not distended EXT: No cyanosis, clubbing or edema. : Without Velazquez catheter. MSK: right knee with surgical dressings in place SKIN: No generalized rashes noted. NEURO: Oriented to PPT. Normal speech and cognition. PSYCHIATRIC: Normal insight and judgement. Cooperative with PE LUE PICC line in place, no erythema at site Laboratory Data Lab Results Component Value Date WBC 8.3 10/14/2024 HGB 12.7 10/14/2024 HCT 38.6 10/14/2024 MCV 91 10/14/2024 PLT 250 10/14/2024 Lab Results Component Value Date GLUCOSE 185 (H) 10/14/2024 CALCIUM 8.4 (L) 10/14/2024 NA 136 10/14/2024 K 4.1 10/14/2024 CO2 32 10/14/2024 CL 102 10/14/2024 BUN 35 (H) 10/14/2024 CREATININE 1.29 (H) 10/14/2024 Estimated Creatinine Clearance: 25.9 mL/min (A) (by C-G formula based on SCr of 1.29 mg/dL (H)). Lab Results Component Value Date ALT 25 10/10/2024 AST 27 10/10/2024 ALKPHOS 99 10/10/2024 BILITOT 0.4 10/10/2024 Lab Results Component Value Date CRP 0.60 10/10/2024 No results found for: SEDRATE Microbiology: Microbiology Results (last 7 days) Procedure Component Value Units Date/Time Tissue Culture+ Stain [[id number]] (Abnormal) Collected: 10/11/24 1430 Order Status: Completed Specimen: Tissue from Knee, Right Updated: 10/13/24 1323 Result Light Growth Staphylococcus aureus Gram Stain Result No organisms seen No cells seen Narrative: Specimen Description: Right Knee Synovium #1 Tissue Culture+ Stain [[id number]] (Abnormal) Collected: 10/11/24 1431 Order Status: Completed Specimen: Tissue from Knee, Right Updated: 10/13/24 1030 Result Light Growth Staphylococcus aureus Gram Stain Result Rare gram positive cocci in pairs and clusters Rare WBCs Rare epithelial cells Narrative: Specimen Description: Right Knee Synovium #2 Blood Culture [[id number]] Collected: 10/11/24 0628 Order Status: Completed Specimen: Blood Updated: 10/13/24 0800 Result No growth in 48 hours AFB Culture And Stain [[id number]] Collected: 10/11/24 143 Order Status: Completed Specimen: Tissue from Knee, Right Updated: 10/12/24 1416 AFB Smear No acid fast bacilli seen Narrative: Specimen Description: Right Knee Synovium #1 AFB Culture And Stain [[id number]] Collected: 10/11/241430 Order Status: Completed Specimen: Tissue from Knee, Right Updated: 10/12/24 1416 AFB Smear No acid fast bacilli seen Narrative: Specimen Description: Right Knee Synovium #2 AFB Culture And Stain [[id number]] Collected: 10/11/241430 Order Status: Completed Specimen: Tissue from Knee, Right Updated: 10/12/24 1416 AFB Smear No acid fast bacilli seen Narrative: Specimen Description: Right Knee Synovium #3 Anaerobic Culture, Extended (P.acnes) [[id number]] Collected: 10/11/241430 Order Status: Completed Specimen: Tissue from Knee, Right Updated: 10/12/24 0828 Result Culture in progress Narrative: Specimen Description: Right Knee Synovium #3 Anaerobic Culture, Extended (P.acnes) [[id number]] Collected: 10/11/241430 Order Status: Completed Specimen: Tissue from Knee, Right Updated: 10/12/24 0827 Result Culture in progress Narrative: Specimen Description: Right Knee Synovium #2 Anaerobic Culture, Extended (P.acnes) [[id number]] Collected: 10/11/241429 Order Status: Completed Specimen: Tissue from Knee, Right Updated: 10/12/24 0827 Result Culture in progress Narrative: Specimen Description: Right Knee Synovium #1 Tissue Culture+ Stain [[id number]] Collected: 10/11/24 143 Order Status: Completed Specimen: Tissue from Knee, Right Updated: 10/12/24 0644 Result Culture in progress Gram Stain Result Few gram positive cocci in pairs and clusters Few WBCs Few epithelial cells Narrative: Specimen Description: Right Knee Synovium #3 Fungus Culture W/ERUM Or Alma Ink [[id number]] Collected: 10/11/24 143 Order Status: Completed Specimen: Tissue from Knee, Right Updated: 10/11/242023 ERUM Prep No fungal elements seen Narrative: Specimen Description: Right Knee Synovium #1 Fungus Culture W/ERUM Or Alma Ink [[id number]] Collected: 10/11/241430 Order Status: Completed Specimen: Tissue from Knee, Right Updated: 10/11/242023 ERUM Prep No fungal elements seen Narrative: Specimen Description: Right Knee Synovium #2 Fungus Culture W/ERUM Or Alma Ink [[id number]] Collected: 10/11/241430 Order Status: Completed Specimen: Tissue from Knee, Right Updated: 10/11/242023 ERUM Prep No fungal elements seen Narrative: Specimen Description: Right Knee Synovium #3 Body fluid cell count with differential [[id number]] (Abnormal) Collected: 10/11/241432 Order Status: Completed Specimen: Synovial Fluid from Body Fluid Updated: 10/11/241514 Appearance Bloody Color Red BODY FLUID TYPE Synovial Auto WBC/Nucleated Cells BF 1,861 /uL Comment: Please refer to specific WBC/Nucleated Cell Count Body Fluid reference ranges below: For Pleural: 0-1000 Peritoneal: 0-1000 Pericardial:0-1000 Synovial: 0-200 Auto RBC BF 80,000 /uL Comment: Please refer to specific RBC Cell Count Body Fluid reference ranges below: Pleural: 0-10,000 Peritoneal: 0-10,000 Pericardial:0-10,000 Synovial:0-30 Narrative: There is normally no readily obtainable pleural, peritoneal and pericardial fluid, hence normal elements for these potential fluids are not defined. DIFFERENTIAL, BODY FLUID [[id number]] Collected: 10/11/241432 Order Status: Completed Specimen: Synovial Fluid from Body Fluid Updated: 10/11/241514 Neutrophils Fluid 67 % Lymphocytes Fluid 10 % Monocytes Fluid 14 % EOSINOPHILS 9 Anaerobic Culture [[id number]] Collected: 10/11/241430 Order Status: Sent Specimen: Tissue from Knee, Right Anaerobic Culture [[id number]] Collected: 10/11/241430 Order Status: Sent Specimen: Tissue from Knee, Right Anaerobic Culture [[id number]] Collected: 10/11/241429 Order Status: Sent Specimen: Tissue from Knee, Right Blood Culture [[id number]] Order Status: Sent Specimen: Blood Radiology: Radiology Results (last 3 days) No results found for the last 72 hours. Impression: Right knee infection- s/p I&D procedure by Dr. Stafford on 10/11. superficial infection of subcutaneous tissue with no obvious communication to the joint noted intraoperatively. High risk patient for involvement of hardware. Synovial fluid with 1,861 wbc. Tissue cultures from surgery are growing MRSA Chronic kidney disease stage IIIb Diabetes mellitus-complicating factor that can lead to poor wound healing and infection Multiple antibiotic allergies- She has reported allergies to penicillin, Levaquin, sulfa,Doxycycline, and cephalosporins. She tolerated Cefazolin during her procedure in August 2024 per my discussion with Dr. Stafford PLAN: -Continue to monitor CBC and CMP closely. Baseline CPK level ok at 87 -follow blood cultures- NGTD -Dr. Stafford is following. He took the patient to the OR on 10/11 for I&D procedure and joint aspiration. No communication to the joint noted intraoperatively. There was some subcutaneous purulent noted. Culture with MRSA -Daptomycin 6 mg/kg IV every 24 hours She will need at least 2-3 weeks of IV antibiotics but possibly up to a 6 week course. If she is significantly improving after a short course of IV antibiotics then we could consider transition to oral antibiotics. She did not have obvious extension of infection down to the joint and synovial fluidaspirate showed a relatively low cell count but she is a high risk patient for prosthetic joint infection and her surgical cultures are growing MRSA. I would be ok with her discharge back to her SNF in the near future. UM/RHINA: Daptomycin 700 mg IV q24. Anticipate continuing this antibiotic at least until 10/25/24 for a 2 week course and reassess. May need up to 6 weeks of IV antibiotics but if she is significantly improving then we may be able to transition to PO after 2-3 weeks of IV antibiotics. Weekly cbc, cmp, crp, and cpk level- labs need to be faxed to [facility] at [phone] Weekly PICC line dressing changes Follow up in my clinic on 10/25/24. Clinic to call with the appointment time Please fax a copy of my orders to [phone] and call [phone] with final discharge plans I discussed with the micro lab today I discussed her case with Dr. Boone today This visit included the following complex service elements: Complex medical decision-making associated with antimicrobial prescribing. Managed infection prevention and treatment protocol associated with transitions of care for this complex patient. Communicated with the clinical microbiology lab. Complex MDM David Fulton MD 10/14/2024 * Wilfrido Stafford MD - 10/13/2024 3:34 PM EDT Subjective postop day 2 I&D right total knee Review of Systems Objective Last Recorded Vitals Blood pressure (!) 152/53, pulse 62, temperature 97.9 ??F (36.6 ??C), resp. rate 24, height 1.6 m (5' 2.99 ), weight 110.6 kg (243 lb 13.3 oz), SpO2 99%. Physical Exam Labs: Results for orders placed or performed during the hospital encounter of 10/10/24 (from the past 24 hours) Glucose, Nova Meter Status: Abnormal Collection Time: 10/12/24 3:53 PM Result Value Ref Range POC-GLUCOSE 291 (H) 70 - 110 mg/dL Systems Specialist [id number] Glucose, Nova Meter Status: Abnormal Collection Time: 10/12/24 8:41 PM Result Value Ref Range POC-GLUCOSE 277 (H) 70 - 110 mg/dL Systems Specialist [id number] Glucose, Nova Meter Status: Abnormal Collection Time: 10/13/24 5:33 AM Result Value Ref Range POC-GLUCOSE 248 (H) 70 - 110 mg/dL Systems Specialist [id number] Glucose, Nova Meter Status: Abnormal Collection Time: 10/13/24 11:10 AM Result Value Ref Range POC-GLUCOSE 275 (H) 70 - 110 mg/dL Systems Specialist [id number] CT lower extremity without IV contrast right [...] Antwon Yun. Transcribed by Yesenia Cano PA-C. Right knee shows incision clean and dry neurovascular exam intact Assessment Plan Set to return to care home tomorrow PICC line has been placed antibiotics being arranged waitingfor final cultures she seems to be responding well she will need to follow-up with [facility] in the [place] office on Wednesday10/17/2024 at 10:[address] Stafford Discharge Planning: * Uvaldo Hadley RN - 10/13/2024 2:49 PM EDT Discharge Plan Progress Note [facility] Discharge Review Discharge Review: Anticipated Discharge Date: 10/14/24 Patient/Surrogate/Designated Caregiver Discharge Disposition Goal: SNF Anticipated Discharge Plan: SNF Discharge Barriers/Clinical Progression(Medical, SDOH, Disposition Barriers): precert pending for [facility]; final IV abx plan Efforts to address barriers to discharge (referrals, care conference, medicaid): ID following, SNF contact information received and given to weekend CM Have escalations been made: n/a If yes, please detail: Action/Follow up: n/a Patient/Surrogate/Designated Caregiver Update: Patient was updated on the discharge plan. When: 10/13/24 How: face to face Care Coordination will continue to monitor patient progress and assess for on- going discharge needsduring acute hospitalization. Precert pending for [facility]. Packet created and placed in chart incase she discharges over the weekend. Number for report will be [phone]. SNF pharmacy is [facility] in [place] has been updated in chart. DC summary will need to be faxed to [phone]. Pt confirmed family to transport on discharge [phone] Precert approved for SNF, nursing and provider notified Uvaldo Hadley RN 10/13/2024, 2:49 PM * Brigitte Boone MD - 10/13/2024 12:42 PM EDT Subjective Seen and examined today. Pain improved. Labs noted , culture positive for staph Review of Systems Knee pain, swelling No fever No Nausea or vomiting Objective Last Recorded Vitals Blood pressure (!) 152/81, pulse 53, temperature 97.3 ??F (36.3 ??C), resp. rate 24, height 1.6 m (5' 2.99 ), weight 110.6 kg (243 lb 13.3 oz), SpO2 90%. Physical Exam Head atraumatic normocephalic Constitutional alert oriented obese Cardiovascular S1-S2 no murmur gallops rubs appreciated Respiratory clear to ausculation bilateral, no crepitation or wheeze Labs: Results for orders placed or performed during the hospital encounter of 10/10/24 (from the past 24 hours) Glucose, Nova Meter Status: Abnormal Collection Time: 10/12/24 3:53 PM Result Value Ref Range POC-GLUCOSE 291 (H) 70 - 110 mg/dL Systems Specialist [id number] Glucose, Nova Meter Status: Abnormal Collection Time: 10/12/24 8:41 PM Result Value Ref Range POC-GLUCOSE 277 (H) 70 - 110 mg/dL Systems Specialist [id number] Glucose, Nova Meter Status: Abnormal Collection Time: 10/13/24 5:33 AM Result Value Ref Range POC-GLUCOSE 248 (H) 70 - 110 mg/dL Systems Specialist [id number] Glucose, Nova Meter Status: Abnormal Collection Time: 10/13/24 11:10 AM Result Value Ref Range POC-GLUCOSE 275 (H) 70 - 110 mg/dL Systems Specialist [id number] CT lower extremity without IV contrast right [...] Yun. Transcribed by Yesenia Cano PA-C. Assessment and Plan #Post-op infection s/p Right TKA Knee infection related to surgical wound S/P underwent I&D and liner exchange 10/11 Follow surgical cultures daniella, waiting final identification Currently on daptomycin 700mg IV every 24 hours. D PICC line placement. She doesn't want to have diasysus in future if needed Infectious disease following, Discussed with ID today, will wait for final culture #Chronic hypoxic respiratory failure H/O asthma / COPD with frequent exacerbations -On 2L NC at baseline. -Titrate based on oxygen saturation. -Using home inhalers. -Duonebs as needed. #Chronic diastolic heart failure Hypertension -No echo to review, report per PAT testing. -Holding home Aldactone and Demadex due to elevated sCr. -Start metoprolol XL 25 mg once daily in interim. CAD Chronic LBBB -S/p [facility] 07/2019 with mild CAD. -Follow up with head sawyer automatic per recommendations. CKD She states that she doesn't want to do dialysis in the future Ok with PIVV line Monitor kidney function Labs in am Type II diabetes mellitus Sidling scale inulin Elevated 275 Add 20 untits lantus MARCELA -Continue home CPAP pm. Morbid obesity -BMI 43.19. Complicates all aspects of care. Gout -Resume Allopurinol in am. Chronic pain -On home Tramadol. Pain regimen per ortho as above. CODE Status patient is DNR/DNI Discharge Planning: awaiting for final culture, discharge in 1-2 days * David Fulton MD - 10/13/2024 9:45 AM EDT Images from the original note were not included. Infectious Disease Progress Note Patient Name: Louie Sanon : 1940 Date of Consult: 10/11/24 Admission Date: 10/10/2024 Requesting Provider: Brigitte Boone MD Evaluating Physician: David Fulton MD Chief Complaint: right knee pain, redness, and swelling Reason for Consultation: joint infection History of present illness: Louie Sanon is a 84 y.o. female with history of Chronic kidney disease, COPD, coronary artery disease, hypertension, hyperlipidemia, obstructive sleep apnea, and diabetes mellitus who was sent from [facility] surgery yesterday for postoperative infection status post right TKA procedure on 08/23/[address] Stafford. Shortly after her procedure she started having swelling, redness, and worsening pain. She was not having any fevers or chills. She was seen by Dr. Stafford yesterday and was sent to the hospital for I&D procedure. She has remained afebrile since arrival. White blood cell count was normal at 6.9.Creatinine is elevated to 1.52.CRP was 0.6. Procalcitonin was less than 0.14. Blood cultures have been sent and are in progress. The patient is not currently on any antibiotics. She does have listed allergies to penicillin, cephalosporins, Levaquin, and sulfa antibiotics. She was given antibiotics with? Cefazolin perioperatively on 08/23/2024 and it appears that she tolerated this okay. ID has been consulted for antibiotic recommendations for the patient's right knee prosthetic joint infection. 10/12/24: s/p I&D procedure by Dr. Stafford on 10/11. superficial infection of subcutaneous tissue with no obvious communication to the joint noted intraoperatively. High risk patient for involvement of hardware. Synovial fluid with 1,861 wbc. Tissue cultures from surgery are in progress. Gram stain with GPC in pairs and clusters. Pain under ok control. No fevers. No n/v/d. Plan for PICC placement soon. Plan will be for her to discharge back to SNF for rehab and IV abx in the near future. 10/13/24: doing ok. Pain under decent control. No fevers. No n/v. PICC line placed. Surgical cultures with staph aureus thus far. Review of Systems As above Past Medical History: Diagnosis Date Arthritis Asthma [...] 08/23/2024 Procedure: RIGHT TOTAL KNEE ARTHROPLASTY; Surgeon: Wilfrido Stafford MD; Location: [facility] [facility]; Service: Orthopedic Surgery; Laterality: Right; Slight Bruising noted at site of bovie pad removal, Left thigh CARDIAC CATHETERIZATION GALLBLADDER SURGERY HYSTERECTOMY I&D,ABSCESS LEG Right 10/11/2024 Procedure: IRRIGATION AND DEBRIDEMENT, SUBCUTANEOUS TISSUE, SKIN, WITH JOINT ASPIRATION AND CLOSURE, POST TOTAL KNEE REPLACEMENT; Surgeon: Wilfrido Stafford MD; Location: [facility] OR; Service: Orthopedic Surgery; Laterality: Right; Procedure on Brain Mass removed. TONSILLECTOMY Social History Socioeconomic History Marital status: / Spouse name: Not on file Number of children: Not on file Years of education: Not on file Highest education level: Not on file Occupational History Not on file Tobacco Use Smoking status: Former Types: Cigarettes Smokeless tobacco: Never Tobacco comments: Patient was a 3 ppd smoker x 20 years. Stopped smoking in Substance and Sexual Activity Alcohol use: Never Drug use: Never Sexual activity: Not on file Other Topics Concern Not on file Social History Narrative Not on file Social Drivers of Health Financial Resource Strain: Low Risk (10/10/2024) Financial Resource Strain Struggle to pay for basics: Not hard at all Food Insecurity: No Food Insecurity (10/10/2024) Food Insecurity Food run out past 12 months: Never true Food did not last past 12 months: Never true Transportation Needs: No Transportation Needs (10/10/2024) Transportation Needs Transportation unreliable past 12 months: No Physical Activity: Inactive (10/10/2024) Physical Activity Minutes of exercise per week: 0 Stress: No Stress Concern Present (10/10/2024) Stress Feeling stress past 2 weeks: A little bit Social Connections: Unknown (10/10/2024) Family and Community Support Help with Day to Day Activities: I don't need any help Feeling Lonely or Isolated: 0 Intimate Partner Violence: Not on file Housing Stability: Low Risk (10/10/2024) Housing Stability Living situation today: I have a steady place to live Living situation problems: None of the above No family history on file. Allergies Allergen Reactions Codeine Hives Can't remember Latex Dermatitis Patient can't remember Penicillin Hives Byetta [Exenatide] Can't remember Cephalosporins Patient can't remember-given in OR 08/24/24. No reaction reported. Doxycycline Patient can't remember Glyburide Patient can't remember Levaquin [Levofloxacin] Patient can't remember Levbid [Hyoscyamine Sulfate] Patient can't remember Oxycodone Can't remember Percodan [Oxycodone-Aspirin] Patient can't remember Sulfa (Sulfonamide Antibiotics) Patient can't remember Antibiotics: Other Medications: Current Facility-Administered Medications Medication Dose Route Frequency Provider Last Rate Last Admin acetaminophen (TYLENOL) tablet 1,000 mg 1,000 mg oral Q6H PRN Brigitte Boone MD 1,000 mg at 10/13/24 1624 albuterol 2.5 mg /3 mL (0.083 %) nebulizer solution 2.5 mg 2.5 mg nebulization Q4H PRN Brigitte Boone MD allopurinoL (ZYLOPRIM) tablet 100 mg 100 mg oral Daily Brigitte Boone MD 100 mg at 10/13/24 1004 DAPTOmycin (CUBICIN) in sodium chloride 0.9% (NS) PF IV push 700 mg 700 mg intravenous Q24H David Fulton MD 700 mg at 10/12/24 2323 dextrose 50% (D50W) injection 25 g 25 g intravenous Q15 Min PRN Brigitte Boone MD glucagon injection 1 mg 1 mg intraMUSCULAR Q15 Min PRN Brigitte Boone MD glucose chew tab 16 g 16 g oral Q15 Min PRN Brigitte Boone MD hydrALAZINE (APRESOLINE) injection 5 mg 5 mg intravenous Q6H PRN Brigitte Boone MD insulin glargine-yfgn (SEMGLEE) solution 20 Units 20 Units subcutaneous Every Night Brigitte Boone MD 20 Units at 10/12/24 2153 [START ON 10/14/2024] insulin glargine-yfgn (SEMGLEE) solution 20 Units 20 Units subcutaneous QAM Brigitte Boone MD insulin lispro (HUMALOG, ADMELOG) injection 0-6 Units 0-6 Units subcutaneous 4x Daily AC Brigitte Boone MD 2 Units at 10/13/24 1624 miconazole (MICOTIN) 2 % powder topical BID Nadir Stewart NP Given at 10/12/242151 ondansetron (ZOFRAN-ODT) disintegrating tablet 4 mg 4 mg oral Q8H PRN Brigitte Boone MD Or ondansetron (ZOFRAN) injection 4 mg 4 mg intravenous Q8H PRN Brigitte Boone MD sodium chloride flush 10 mL 10 mL intravenous PRN Brigitte Boone MD traMADoL (ULTRAM) tablet 50 mg 50 mg oral Q6H PRN Brigitte Boone MD 50 mg at 10/13/24 1450 Physical Exam: Vital Signs Vitals: 10/13/24 1630 BP: (!) 157/76 Pulse: 71 Resp: Temp: 97.7 ??F (36.5 ??C) SpO2: 97% GENERAL: Awake and alert, in no acute distress. Frail. Morbidly obese HEENT: Normocephalic, atraumatic. No external oral lesions noted HEART: RRR; No murmur. LUNGS: CTAB. Normal respiratory effort. Nonlabored. ABDOMEN: Obese abdomen. Not distended EXT: No cyanosis, clubbing or edema. : Without Velazquez catheter. MSK: right knee with surgical dressings in place SKIN: No generalized rashes noted. NEURO: Oriented to PPT. Normal speech and cognition. PSYCHIATRIC: Normal insight and judgement. Cooperative with PE LUE PICC line in place, no erythema at site Laboratory Data Lab Results Component Value Date WBC 6.9 10/11/2024 HGB 13.9 10/11/2024 HCT 42.0 10/11/2024 MCV 91 10/11/2024 PLT 263 10/11/2024 Lab Results Component Value Date GLUCOSE 197 (H) 10/13/2024 CALCIUM 9.1 10/11/2024 NA 137 10/11/2024 K 3.8 10/11/2024 CO2 33 (H) 10/11/2024 CL 101 (L) 10/11/2024 BUN 26 (H) 10/11/2024 CREATININE 1.52 (H) 10/11/2024 Estimated Creatinine Clearance: 22 mL/min (A) (by C-G formula based on SCr of 1.52 mg/dL (H)). Lab Results Component Value Date ALT 25 10/10/2024 AST 27 10/10/2024 ALKPHOS 99 10/10/2024 BILITOT 0.4 10/10/2024 Lab Results Component Value Date CRP 0.60 10/10/2024 No results found for: SEDRATE Microbiology: Microbiology Results (last 7 days) Procedure Component Value Units Date/Time Tissue Culture+ Stain [[id number]] (Abnormal) Collected: 10/11/241429 Order Status: Completed Specimen: Tissue from Knee, Right Updated: 10/13/24 1323 Result Light Growth Staphylococcus aureus Gram Stain Result No organisms seen No cells seen Narrative: Specimen Description: Right Knee Synovium #1 Tissue Culture+ Stain [[id number]] (Abnormal) Collected: 10/11/24 143 Order Status: Completed Specimen: Tissue from Knee, Right Updated: 10/13/24 1030 Result Light Growth Staphylococcus aureus Gram Stain Result Rare gram positive cocci in pairs and clusters Rare WBCs Rare epithelial cells Narrative: Specimen Description: Right Knee Synovium #2 Blood Culture [[id number]] Collected: 10/11/24 0628 Order Status: Completed Specimen: Blood Updated: 10/13/24 0800 Result No growth in 48 hours AFB Culture And Stain [[id number]] Collected: 10/11/24 1430 Order Status: Completed Specimen: Tissue from Knee, Right Updated: 10/12/24 1416 AFB Smear No acid fast bacilli seen Narrative: Specimen Description: Right Knee Synovium #1 AFB Culture And Stain [[id number]] Collected: 10/11/24 143 Order Status: Completed Specimen: Tissue from Knee, Right Updated: 10/12/24 1416 AFB Smear No acid fast bacilli seen Narrative: Specimen Description: Right Knee Synovium #2 AFB Culture And Stain [[id number]] Collected: 10/11/24 143 Order Status: Completed Specimen: Tissue from Knee, Right Updated: 10/12/24 141 AFB Smear No acid fast bacilli seen Narrative: Specimen Description: Right Knee Synovium #3 Anaerobic Culture, Extended (P.acnes) [[id number]] Collected: 10/11/241430 Order Status: Completed Specimen: Tissue from Knee, Right Updated: 10/12/24 0828 Result Culture in progress Narrative: Specimen Description: Right Knee Synovium #3 Anaerobic Culture, Extended (P.acnes) [[id number]] Collected: 10/11/24 143 Order Status: Completed Specimen: Tissue from Knee, Right Updated: 10/12/24 0827 Result Culture in progress Narrative: Specimen Description: Right Knee Synovium #2 Anaerobic Culture, Extended (P.acnes) [[id number]] Collected: 10/11/241429 Order Status: Completed Specimen: Tissue from Knee, Right Updated: 10/12/24 0827 Result Culture in progress Narrative: Specimen Description: Right Knee Synovium #1 Tissue Culture+ Stain [[id number]] Collected: 10/11/241430 Order Status: Completed Specimen: Tissue from Knee, Right Updated: 10/12/24 0644 Result Culture in progress Gram Stain Result Few gram positive cocci in pairs and clusters Few WBCs Few epithelial cells Narrative: Specimen Description: Right Knee Synovium #3 Fungus Culture W/ERUM Or Alma Ink [[id number]] Collected: 10/11/241429 Order Status: Completed Specimen: Tissue from Knee, Right Updated: 10/11/242023 ERUM Prep No fungal elements seen Narrative: Specimen Description: Right Knee Synovium #1 Fungus Culture W/ERUM Or Alma Ink [[id number]] Collected: 10/11/24 143 Order Status: Completed Specimen: Tissue from Knee, Right Updated: 10/11/242023 ERUM Prep No fungal elements seen Narrative: Specimen Description: Right Knee Synovium #2 Fungus Culture W/ERUM Or Alma Ink [[id number]] Collected: 10/11/241430 Order Status: Completed Specimen: Tissue from Knee, Right Updated: 10/11/242023 ERUM Prep No fungal elements seen Narrative: Specimen Description: Right Knee Synovium #3 Body fluid cell count with differential [[id number]] (Abnormal) Collected: 10/11/24 143 Order Status: Completed Specimen: Synovial Fluid from Body Fluid Updated: 10/11/24 1515 Appearance Bloody Color Red BODY FLUID TYPE Synovial Auto WBC/Nucleated Cells BF 1,861 /uL Comment: Please refer to specific WBC/Nucleated Cell Count Body Fluid reference ranges below: For Pleural: 0-1000 Peritoneal: 0-1000 Pericardial:0-1000 Synovial: 0-200 Auto RBC BF 80,000 /uL Comment: Please refer to specific RBC Cell Count Body Fluid reference ranges below: Pleural: 0-10,000 Peritoneal: 0-10,000 Pericardial:0-10,000 Synovial:0-30 Narrative: There is normally no readily obtainable pleural, peritoneal and pericardial fluid, hence normal elements for these potential fluids are not defined. DIFFERENTIAL, BODY FLUID [[id number]] Collected: 10/11/241432 Order Status: Completed Specimen: Synovial Fluid from Body Fluid Updated: 10/11/24 1515 Neutrophils Fluid 67 % Lymphocytes Fluid 10 % Monocytes Fluid 14 % EOSINOPHILS 9 Anaerobic Culture [[id number]] Collected: 10/11/241430 Order Status: Sent Specimen: Tissue from Knee, Right Anaerobic Culture [[id number]] Collected: 10/11/241430 Order Status: Sent Specimen: Tissue from Knee, Right Anaerobic Culture [[id number]] Collected: 10/11/241429 Order Status: Sent Specimen: Tissue from Knee, Right Blood Culture [[id number]] Order Status: Sent Specimen: Blood Radiology: Radiology Results (last 3 days) No results found for the last 72 hours. Impression: Right knee infection- s/p I&D procedure by Dr. Stafford on 10/11. superficial infection of subcutaneous tissue with no obvious communication to the joint noted intraoperatively. High risk patient for involvement of hardware. Synovial fluid with 1,861 wbc. Tissue cultures from surgery are in progress, growing staph aureus thus far. Chronic kidney disease stage IIIb Diabetes mellitus-complicating factor that can lead to poor wound healing and infection Multiple antibiotic allergies- She has reported allergies to penicillin, Levaquin, sulfa,Doxycycline, and cephalosporins. She tolerated Cefazolin during her procedure in August 2024 per my discussion with Dr. Stafford PLAN: -Continue to monitor CBC and CMP closely. Baseline CPK level ok at 87 -follow blood cultures- NGTD -Dr. Stafford is following. He took the patient to the OR on 10/11 for I&D procedure and joint aspiration. No communication to the joint noted intraoperatively. There was some subcutaneous purulent noted. Culture with staph aureus thus far, susceptibility data pending -stop ceftriaxone -Daptomycin 6 mg/kg IV every 24 hours. Daptomycin dosing will need to be changed to every 48 hour dosing if renal function declines further. -PICC line placed today She will need at least 2-3 weeks of IV antibiotics but possibly up to a 6 week course. If she is significantly improving after a short course of IV antibiotics then we could consider transition to oral antibiotics. She did not have obvious extension of infection down to the joint and synovial fluidaspirate showed a relatively low cell count but she is a high risk patient for prosthetic joint infection and her surgical cultures are growing staph aureus. Final antibiotic plan pending susceptibility data which should be available tomorrow. I discussed her case with Dr. Boone today I discussed her case with Dr. Stafford today This visit included the following complex service elements: Complex medical decision-making associated with antimicrobial prescribing. In-depth chart review with high level synthesis for complex diagnoses. Complex MDM David Fulton MD 10/13/2024 * Fabio Bates, PT - 10/13/2024 9:08 AM EDT Images from the original note were not included. Inpatient Physical Therapy Treatment Patient Name: Louie Sanon Date of : 1940 Date of Treatment: 10/13/24 Start Time 0845 Stop Time 907 Session Duration 23 minutes CPT CODES: 83761 Gait training x 1, 49418 Therapeutic/functional activity x 1 General Visit Type: Treatment Approved by: Nurse Figueroa Patient Disposition Upon Entry: Supine in bed, Call Light/Pull Cord in reach, All needs met and within reach, Nursing aware/notified, Yellow non-slip socks donned Patient Verified By: Name and Date of Co-treated by: OT Precautions Weight-Bearing Status: No Restrictions Precautions: Fall risk Isolation Precautions: Standard Lines, tubes, drains, airway: nasal cannula , JAE dressing Brace/protective equipment: knee immobilizer Subjective Subjective: Patient agreeable to physical therapy treatment. Pain No - Patient not reporting pain at this time. Pt did report some discomfort with knee immobilizer sliding down and rubbing on her heel Cognition Overall cognitive status: Patient is awake and alert, attending to directions appropriately, demonstrating good problem solving skills, and aware of any deficits or impairments, if present. Objective Vitals Vitals stable. Functional Mobility Bed Mobility: Supine to Sit: minimal assistance Transfers Sit to Stand: minimal assistance, gait belt used, rolling walker used Stand to Sit: contact guard assist, gait belt used, rolling walker used Bed to/from Chair: contact guard assist, gait belt used, rolling walker used Gait Gait Assistance: contact guard assist Assistive Device: Gait Belt, Rolling walker Distance: 30ft Gait speed: Decreased karishma Deviation(s): short step length, decreased heel strike, right decreased stance time, increased trunk flexion Stair Management Not assessed. Patient does not have to negotiate stairs in home or community environment. Wheelchair Mobility Not assessed, patient ambulatory. AM-PAC Basic Mobility Inpatient Short Form How much difficulty does the patient currently have: Turning over in bed (including adjusting bedclothes, sheets, and blankets)? (4) None (the patient can do the activity independently WITHOUT using assistive devices OR help from another person) Sitting down on and standing up from [...] bed to a chair (including a wheelchair)? (3) A little (Minimal/Contact guard/Supervision/Setup) Need to walk in hospital room? (3) A little (Minimal/Contact guard/Supervision/Setup) Climbing 3-5 steps with a railing? (1) Total/Unable (Total assist/dependent) Score Raw score=13 t-Scale score=36.74 Standard error=2.99 CMS 0-100%=64.91% MDC=4.72 A raw score of >= 16 [...] may require occasional minimal assistance Standing Dynamic Fair - patient accepts minimal challenge; able to maintain balance while turning head/trunk Activity Tolerance Patient limited with activity/intervention due to deconditioning and weakness Treatment Pt performed gait and transfers. See above assessment. No major losses of balance. No distress after transfer to chair. Removed knee immobilizer while patient sitting up in chair. RLE elevated on pillow with heel raised and knee in extension. Assessment Pt participated well in gait and transfer training. Limited due to deconditioning. No goals met this session. Pt will continue to benefit from skilled PT. Problems: Decreased functional mobility, Decreased gait tolerance, Decreased strength, Decreased activity tolerance, Gait impairment Rehab potential: Good for stated goals Plan Treatment plan: Continue per POC. PT Frequency/Duration: 3x/week for 14 days Recommendations Discharge recommendations: Patient would benefit from 1-2 hours of multidisciplinary therapy per day upon discharge from acute care setting to assist with returning to prior level of functioning. DME recommendations: Unable to make recommendations at this time. Goals Sit to/from stand: Sit to stand mod I with RW to return to PLOF. Gait: Ambulate 100ft with RW mod I to return to PLOF. Transfer: Stand step pivot transfer mod I with RW to return to PLOF. Target Date: 10/26/2024 Progress towards goals: progressing Education Patient educated [...] Electronically signed by Fabio Bates, PT - 10/13/24 - 11:03 AM EDT * Lana Obed Escamilla, OTR/L - 10/13/2024 8:45 AM EDT Images from the original note were not included. Inpatient Occupational Therapy Treatment Note Patient Name: Louie Sanon Date of : 1940 Date of Treatment: 10/13/24 Start Time: 844 Stop Time: 907 Session Duration: 23 minutes CPT CODES: 33889 ADL/self-care/home management x2 This patient is a 84 y.o. female admitted on 10/10/2024 with Joint infection (HCC) [M00.9] Post op infection [T81.40XA]. Past Medical History: Diagnosis Date Arthritis Asthma [...] 08/23/2024 Procedure: RIGHT TOTAL KNEE ARTHROPLASTY; Surgeon: Wilfrido Stafford MD; Location: [facility]; Service: Orthopedic Surgery; Laterality: Right; Slight Bruising noted at site of bovie pad removal, Left thigh CARDIAC CATHETERIZATION GALLBLADDER SURGERY HYSTERECTOMY I&D,ABSCESS LEG Right 10/11/2024 Procedure: IRRIGATION AND DEBRIDEMENT, SUBCUTANEOUS TISSUE, SKIN, WITH JOINT ASPIRATION AND CLOSURE, POST TOTAL KNEE REPLACEMENT; Surgeon: Wilfrido Stafford MD; Location: [facility]; Service: Orthopedic Surgery; Laterality: Right; Procedure on Brain Mass removed. TONSILLECTOMY General Visit type: Treatment Approved by: Nursing Patient disposition upon entry: Patient verified by name, Patient verified by date of , Supinein bed, All needs met and within reach, Call light/pull cord in reach, Head of bed >30 degrees, Nursing aware/notified Assisted by: PT Precautions Weightbearing status: No restrictions Precautions: Fall risk Isolation precautions: Standard LDA/Brace/Protective equipment: Lines, drains, and airways: nasal cannula, polar care, JAE Brace/protective equipment: Knee immobilizer , RLE Subjective Subjective: Pt agreeable Pain No-patient has no complaints of pain Cognition Cognition: Overall cognitive status: Patient is awake and alert, attending to directions appropriately, demonstrating good problem solving skills, and aware of any deficits or impairments, if present. Objective Vitals No issues reported Bed Mobility Supine to sit: Minimal assistance Transfers Sit to stand:Minimal assistance, Gait belt used, Rolling walker used, to stand from EOB Stand to sit:Contact guard, Gait belt used, Rolling walker used Functional mobility:Contact guard, Gait belt used, Rolling walker used Bed to chair transfer:Contact guard, Gait belt used, Rolling walker used Pt completes mobility in room ~ 30' CGA using rw and cues for safety, transfer to chair CGA. ADLs Feeding:Independent Grooming:Independent Bathing:Moderate Assistance Upper body dressing:Setup Lower body dressing:Maximal Assistance for socks and to don brace appropriately Toileting:Moderate Assistance Balance Static sitting balance:Normal: Patient able to maintain steady balance without handheld support Dynamic sitting balance:Good: Patient accepts moderate challenge; able to maintain balance while picking object off the floor Static standing balance:Good: Patient able to maintain balance without handheld support; limited postural sway Dynamic standing balance:Fair: Patient accepts minimal challenge; able to maintain balance while turning head/trunk Activity Tolerance Patient limited with activity/intervention due to deconditioning Treatment See above Assessment Assessment Patient demonstrated maintained performance during this treatment session. Patient continues to present with decreased strength, decreased endurance, decreased balance, decreased safety awareness. These deficits currently impact the patient's ability to perform ADLs and functional mobility, puttingthem at an increased risk for further functional decline, increased caregiver burden. Patient will benefit from [...] body dressing: donning and doffing lower body clothing, using AE as needed with minimal assistance. Toileting: toileting with standby assist. Functional transfers: ambulatory transfer, using RW with modified independence. 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 Time out performed at 0745 on Today 10/13/2024 and performed by Yobani Sepulveda RN. Risks of hemorrhage, infection and DVT were discussed. Maximum sterile technique was used including hand hygiene, sterile antiseptics, cap, gown, sterile gloves, mask, and sheet. Lidocaine 1% was used , with a total of 0.5 ml injected. Lot number: [id number] #catheter size: 4 FR Single Lumen Peripherally Inserted Central Catheter inserted to the Left Basilicvein per hospital protocol. Total number of vein access attempts made: 1 Positive Blood return in each lumen: Yes No Resistance to flushing in each lumen Guidewire removed: Yes Complications: No Findings: Catheter trimmed at 45 cm, with 45 cm internal and 0 cm external. Arm circumference is 45 cm. Therewere no changes to vital signs. Each lumen was flushed with 10ml 0.9% Normal saline. Patient did tolerate procedure well. Dressing Applied: Sterile, transparent semipermeable dressing with CHG gel.. Placement Verified by: ECG/Sherlock Device Central line tip confirmation confirms tip terminating in the: SVC Nurse who was notified: Justine Nurse approved to use line: yes PICC education provided to patient. Educational brochure given to patient. * David Fulton MD - 10/12/2024 5:15 PM EDT Images from the original note were not included. Infectious Disease Progress Note Patient Name: Louie Sanon : 1940 Date of Consult: 10/11/24 Admission Date: 10/10/2024 Requesting Provider: Brigitte Boone MD Evaluating Physician: David Fulton MD Chief Complaint: right knee pain, redness, and swelling Reason for Consultation: joint infection History of present illness: Louie Sanon is a 84 y.o. female with history of Chronic kidney disease, COPD, coronary artery disease, hypertension, hyperlipidemia, obstructive sleep apnea, and diabetes mellitus who was sent from [facility] orthopedic surgery yesterday for postoperative infection status post right TKA procedure on 08/23/[address] Stafford. Shortly after her procedure she started having swelling, redness, and worsening pain. She was not having any fevers or chills. She was seen by Dr. Stafford yesterday and was sent to the hospital for I&D procedure. She has remained afebrile since arrival. White blood cell count was normal at 6.9.Creatinine is elevated to 1.52.CRP was 0.6. Procalcitonin was less than 0.14. Blood cultures have been sent and are in progress. The patient is not currently on any antibiotics. She does have listed allergies to penicillin, cephalosporins, Levaquin, and sulfa antibiotics. She was given antibiotics with? Cefazolin perioperatively on 08/23/2024 and it appears that she tolerated this okay. ID has been consulted for antibiotic recommendations for the patient's right knee prosthetic joint infection. 10/12/24: s/p I&D procedure by Dr. Stafford on 10/11. superficial infection of subcutaneous tissue with no obvious communication to the joint noted intraoperatively. High risk patient for involvement of hardware. Synovial fluid with 1,861 wbc. Tissue cultures from surgery are in progress. Gram stain with GPC in pairs and clusters. Pain under ok control. No fevers. No n/v/d. Plan for PICC placement soon. Plan will be for her to discharge back to SNF for rehab and IV abx in the near future. Review of Systems As above Past Medical History: Diagnosis Date Arthritis Asthma [...] 08/23/2024 Procedure: RIGHT TOTAL KNEE ARTHROPLASTY; Surgeon: Wilfrido Stafford MD; Location: [facility]; Service: Orthopedic Surgery; Laterality: Right; Slight Bruising noted at site of bovie pad removal, Left thigh CARDIAC CATHETERIZATION GALLBLADDER SURGERY HYSTERECTOMY I&D,ABSCESS LEG Right 10/11/2024 Procedure: IRRIGATION AND DEBRIDEMENT, SUBCUTANEOUS TISSUE, SKIN, WITH JOINT ASPIRATION AND CLOSURE, POST TOTAL KNEE REPLACEMENT; Surgeon: Wilfrido Stafford MD; Location: [facility]; Service: Orthopedic Surgery; Laterality: Right; Procedure on Brain Mass removed. TONSILLECTOMY Social History Socioeconomic History Marital status: / Spouse name: Not on file Number of children: Not on file Years of education: Not on file Highest education level: Not on file Occupational History Not on file Tobacco Use Smoking status: Former Types: Cigarettes Smokeless tobacco: Never Tobacco comments: Patient was a 3 ppd smoker x 20 years. Stopped smoking in Substance and Sexual Activity Alcohol use: Never Drug use: Never Sexual activity: Not on file Other Topics Concern Not on file Social History Narrative Not on file Social Drivers of Health Financial Resource Strain: Low Risk (10/10/2024) Financial Resource Strain Struggle to pay for basics: Not hard at all Food Insecurity: No Food Insecurity (10/10/2024) Food Insecurity Food run out past 12 months: Never true Food did not last past 12 months: Never true Transportation Needs: No Transportation Needs (10/10/2024) Transportation Needs Transportation unreliable past 12 months: No Physical Activity: Inactive (10/10/2024) Physical Activity Minutes of exercise per week: 0 Stress: No Stress Concern Present (10/10/2024) Stress Feeling stress past 2 weeks: A little bit Social Connections: Unknown (10/10/2024) Family and Community Support Help with Day to Day Activities: I don't need any help Feeling Lonely or Isolated: 0 Intimate Partner Violence: Not on file Housing Stability: Low Risk (10/10/2024) Housing Stability Living situation today: I have a steady place to live Living situation problems: None of the above No family history on file. Allergies Allergen Reactions Codeine Hives Can't remember Latex Dermatitis Patient can't remember Penicillin Hives Byetta [Exenatide] Can't remember Cephalosporins Patient can't remember-given in OR 08/24/24. No reaction reported. Doxycycline Patient can't remember Glyburide Patient can't remember Levaquin [Levofloxacin] Patient can't remember Levbid [Hyoscyamine Sulfate] Patient can't remember Oxycodone Can't remember Percodan [Oxycodone-Aspirin] Patient can't remember Sulfa (Sulfonamide Antibiotics) Patient can't remember Antibiotics: Other Medications: Current Facility-Administered Medications Medication Dose Route Frequency Provider Last Rate Last Admin acetaminophen (TYLENOL) tablet 1,000 mg 1,000 mg oral Q6H PRN Brigitte Boone MD albuterol 2.5 mg /3 mL (0.083 %) nebulizer solution 2.5 mg 2.5 mg nebulization Q4H PRN Brigitte Boone MD allopurinoL (ZYLOPRIM) tablet 100 mg 100 mg oral Daily Brigitte Boone MD 100 mg at 10/12/24 0842 cefTRIAXone (ROCEPHIN) IVPB 2 g in dextrose 5 % 50 mL (premix) 2 g intravenous Q24H David Fulton MD IVPB Stopped at 10/11/24 2224 DAPTOmycin (CUBICIN) in sodium chloride 0.9% (NS) PF IV push 700 mg 700 mg intravenous Q24H David Fulton MD dextrose 50% (D50W) injection 25 g 25 g intravenous Q15 Min PRN Brigitte Boone MD glucagon injection 1 mg 1 mg intraMUSCULAR Q15 Min PRN Brigitte Boone MD glucose chew tab 16 g 16 g oral Q15 Min PRN Brigitte Boone MD hydrALAZINE (APRESOLINE) injection 5 mg 5 mg intravenous Q6H PRN Brigitte Boone MD insulin glargine-yfgn (SEMGLEE) solution 20 Units 20 Units subcutaneous Every Night Brigitte Boone MD 20 Units at 10/11/24 2156 insulin lispro (HUMALOG, ADMELOG) injection 0-6 Units 0-6 Units subcutaneous 4x Daily AC Brigitte Boone MD 4 Units at 10/12/24 1606 miconazole (MICOTIN) 2 % powder topical BID Nadir Stewart NP Given at 10/12/24 0845 ondansetron (ZOFRAN-ODT) disintegrating tablet 4 mg 4 mg oral Q8H PRN Brigitte Boone MD Or ondansetron (ZOFRAN) injection 4 mg 4 mg intravenous Q8H PRN Brigitte Boone MD sodium chloride flush 10 mL 10 mL intravenous PRN Brigitte Boone MD traMADoL (ULTRAM) tablet 50 mg 50 mg oral Q6H PRN Brigitte Boone MD 50 mg at 10/12/24 1605 Physical Exam: Vital Signs Vitals: 10/12/24 1625 BP: Pulse: Resp: Temp: 97.2 ??F (36.2 ??C) SpO2: GENERAL: Awake and alert, in no acute distress. Frail. Morbidly obese HEENT: Normocephalic, atraumatic. No external oral lesions noted NECK: Supple without nuchal rigidity. No mass. HEART: RRR; No murmur. LUNGS: CTAB. Normal respiratory effort. Nonlabored. ABDOMEN: Obese abdomen. Soft, nontender, nondistended. No rebound or guarding. EXT: No cyanosis, clubbing or edema. : Without Velazquez catheter. MSK: right knee with surgical dressings in place SKIN: No generalized rashes noted. NEURO: Oriented to PPT. Normal speech and cognition. No focal deficits noted PSYCHIATRIC: Normal insight and judgement. Cooperative with PE Laboratory Data Lab Results Component Value Date WBC 6.9 10/11/2024 HGB 13.9 10/11/2024 HCT 42.0 10/11/2024 MCV 91 10/11/2024 PLT 263 10/11/2024 Lab Results Component Value Date GLUCOSE 291 (H) 10/12/2024 CALCIUM 9.1 10/11/2024 NA 137 10/11/2024 K 3.8 10/11/2024 CO2 33 (H) 10/11/2024 CL 101 (L) 10/11/2024 BUN 26 (H) 10/11/2024 CREATININE 1.52 (H) 10/11/2024 Estimated Creatinine Clearance: 22 mL/min (A) (by C-G formula based on SCr of 1.52 mg/dL (H)). Lab Results Component Value Date ALT 25 10/10/2024 AST 27 10/10/2024 ALKPHOS 99 10/10/2024 BILITOT 0.4 10/10/2024 Lab Results Component Value Date CRP 0.60 10/10/2024 No results found for: SEDRATE Microbiology: Microbiology Results (last 7 days) Procedure Component Value Units Date/Time AFB Culture And Stain [[id number]] Collected: 10/11/24 143 Order Status: Completed Specimen: Tissue from Knee, Right Updated: 10/12/24 141 AFB Smear No acid fast bacilli seen Narrative: Specimen Description: Right Knee Synovium #1 AFB Culture And Stain [[id number]] Collected: 10/11/241430 Order Status: Completed Specimen: Tissue from Knee, Right Updated: 10/12/24 1416 AFB Smear No acid fast bacilli seen Narrative: Specimen Description: Right Knee Synovium #2 AFB Culture And Stain [[id number]] Collected: 10/11/24 143 Order Status: Completed Specimen: Tissue from Knee, Right Updated: 10/12/24 1416 AFB Smear No acid fast bacilli seen Narrative: Specimen Description: Right Knee Synovium #3 Anaerobic Culture, Extended (P.acnes) [[id number]] Collected: 10/11/24 143 Order Status: Completed Specimen: Tissue from Knee, Right Updated: 10/12/24 0828 Result Culture in progress Narrative: Specimen Description: Right Knee Synovium #3 Anaerobic Culture, Extended (P.acnes) [[id number]] Collected: 10/11/24 143 Order Status: Completed Specimen: Tissue from Knee, Right Updated: 10/12/24 08 Result Culture in progress Narrative: Specimen Description: Right Knee Synovium #2 Anaerobic Culture, Extended (P.acnes) [[id number]] Collected: 10/11/24 1430 Order Status: Completed Specimen: Tissue from Knee, Right Updated: 10/12/24 0827 Result Culture in progress Narrative: Specimen Description: Right Knee Synovium #1 Blood Culture [[id number]] Collected: 10/11/24 0628 Order Status: Completed Specimen: Blood Updated: 10/12/24 0800 Result No growth in 24 hours Tissue Culture+ Stain [[id number]] Collected: 10/11/241430 Order Status: Completed Specimen: Tissue from Knee, Right Updated: 10/12/24 0644 Result Culture in progress Gram Stain Result Few gram positive cocci in pairs and clusters Few WBCs Few epithelial cells Narrative: Specimen Description: Right Knee Synovium #3 Tissue Culture+ Stain [[id number]] Collected: 10/11/24 143 Order Status: Completed Specimen: Tissue from Knee, Right Updated: 10/12/24 0643 Result No growth Gram Stain Result Rare gram positive cocci in pairs and clusters Rare WBCs Rare epithelial cells Narrative: Specimen Description: Right Knee Synovium #2 Tissue Culture+ Stain [[id number]] Collected: 10/11/24 1430 Order Status: Completed Specimen: Tissue from Knee, Right Updated: 10/12/24 0643 Result No growth Gram Stain Result No organisms seen No cells seen Narrative: Specimen Description: Right Knee Synovium #1 Fungus Culture W/ERUM Or Alma Ink [[id number]] Collected: 10/11/24 143 Order Status: Completed Specimen: Tissue from Knee, Right Updated: 10/11/242023 ERUM Prep No fungal elements seen Narrative: Specimen Description: Right Knee Synovium #1 Fungus Culture W/ERUM Or Alma Ink [[id number]] Collected: 10/11/24 143 Order Status: Completed Specimen: Tissue from Knee, Right Updated: 10/11/242023 ERUM Prep No fungal elements seen Narrative: Specimen Description: Right Knee Synovium #2 Fungus Culture W/ERUM Or Alma Ink [[id number]] Collected: 10/11/24 143 Order Status: Completed Specimen: Tissue from Knee, Right Updated: 10/11/242023 ERUM Prep No fungal elements seen Narrative: Specimen Description: Right Knee Synovium #3 Body fluid cell count with differential [[id number]] (Abnormal) Collected: 10/11/24 1433 Order Status: Completed Specimen: Synovial Fluid from Body Fluid Updated: 10/11/24 1515 Appearance Bloody Color Red BODY FLUID TYPE Synovial Auto WBC/Nucleated Cells BF 1,861 /uL Comment: Please refer to specific WBC/Nucleated Cell Count Body Fluid reference ranges below: For Pleural: 0-1000 Peritoneal: 0-1000 Pericardial:0-1000 Synovial: 0-200 Auto RBC BF 80,000 /uL Comment: Please refer to specific RBC Cell Count Body Fluid reference ranges below: Pleural: 0-10,000 Peritoneal: 0-10,000 Pericardial:0-10,000 Synovial:0-30 Narrative: There is normally no readily obtainable pleural, peritoneal and pericardial fluid, hence normal elements for these potential fluids are not defined. DIFFERENTIAL, BODY FLUID [[id number]] Collected: 10/11/241432 Order Status: Completed Specimen: Synovial Fluid from Body Fluid Updated: 10/11/24 1515 Neutrophils Fluid 67 % Lymphocytes Fluid 10 % Monocytes Fluid 14 % EOSINOPHILS 9 Anaerobic Culture [[id number]] Collected: 10/11/241430 Order Status: Sent Specimen: Tissue from Knee, Right Anaerobic Culture [[id number]] Collected: 10/11/241430 Order Status: Sent Specimen: Tissue from Knee, Right Anaerobic Culture [[id number]] Collected: 10/11/241429 Order Status: Sent Specimen: Tissue from Knee, Right Blood Culture [[id number]] Order Status: Sent Specimen: Blood Radiology: Radiology Results (last 3 days) No results found for the last 72 hours. Impression: Right knee prosthetic joint infection- s/p I&D procedure by Dr. Stafford on 10/11. superficial infection of subcutaneous tissue with no obvious communication to the joint noted intraoperatively. High risk patient for involvement of hardware. Synovial fluid with 1,861 wbc. Tissue cultures from surgery are in progress. Gram stain with GPC in pairs and clusters. Suspect staphylococcal infection. Chronic kidney disease stage IIIb Diabetes mellitus-complicating factor that can lead to poor wound healing and infection Multiple antibiotic allergies- She has reported allergies to penicillin, Levaquin, sulfa,Doxycycline, and cephalosporins. She tolerated Cefazolin during her procedure in August 2024 per my discussion with Dr. Stafford PLAN: -Continue to monitor CBC and CMP closely. Baseline CPK level -follow blood cultures- NGTD -Dr. Stafford is following. He took the patient to the OR on 10/11 for I&D procedure and joint aspiration. No communication to the joint noted intraoperatively. There was some subcutaneous purulent noted. -continue ceftriaxone 2 g IV every 24 hours plus daptomycin 6 mg/kg IV every 24 hours. Daptomycin dosing will need to be changed to every 48 hour dosing if renal function declines further. -She will need a PICC line placement. She states that she would never wish for dialysis even if sheprogressed to ESRD in the future. I suspect she will need 6 weeks of IV antibiotic therapy even though no obvious extension of infection to joint given she is at significant risk for involvement of hardware and the hardware has been retained. Final antibiotic plan pending surgical culture results. This visit included the following complex service elements: Complex medical decision-making associated with antimicrobial prescribing. In-depth chart review with high level synthesis for complex diagnoses. Complex MDM David Fulton MD 10/12/2024 * Tg Kearney, OTR/L - 10/12/2024 1:05 PM EDT Images from the original note were not included. Inpatient Occupational Therapy Initial Evaluation Patient Name: Louie Sanon Date of : 1940 Date of Evaluation: 10/12/24 Start Time: 11:46 Stop Time: 12:12 Session Duration: 26 minutes Total time: 36 minutes spent, including 10 minutes for nursing collaboration, thorough chart and systems review, and clinical reasoning. CPT CODES: 46643 Eval low complexity and 91182 ADL/self-care/home management x1 This patient is a 84 y.o. female admitted on 10/10/2024 with Joint infection (HCC) [M00.9] Post op infection [T81.40XA]. Past Medical History: Diagnosis Date Arthritis Asthma [...] 08/23/2024 Procedure: RIGHT TOTAL KNEE ARTHROPLASTY; Surgeon: Wilfrido Stafford MD; Location: [facility]; Service: Orthopedic Surgery; Laterality: Right; Slight Bruising noted at site of bovie pad removal, Left thigh CARDIAC CATHETERIZATION GALLBLADDER SURGERY HYSTERECTOMY I&D,ABSCESS LEG Right 10/11/2024 Procedure: IRRIGATION AND DEBRIDEMENT, SUBCUTANEOUS TISSUE, SKIN, WITH JOINT ASPIRATION AND CLOSURE, POST TOTAL KNEE REPLACEMENT; Surgeon: Wilfrido Stafford MD; Location: [facility]; Service: Orthopedic Surgery; Laterality: Right; Procedure on Brain Mass removed. TONSILLECTOMY General Visit type: Initial Evaluation Approved by: Nurse Kirk Patient disposition upon entry: Patient verified by name, Patient verified by date of , Supinein bed, All needs met and within reach, Call light/pull cord in reach Co-treated by: PT Precautions Weightbearing status: No restrictions Precautions: Fall risk Isolation precautions: Standard LDA/Brace/Protective equipment: Lines, drains, and airways: nasal cannula Brace/protective equipment: Knee immobilizer , RLE Subjective Subjective: Pt agreeable Pain 0-10 SCALE Pain location: R knee 7/10. Pain intervention: Ambulation/increased activity. Response to intervention: Gradually improving Cognition Cognition: Overall cognitive status: Patient is awake and alert, attending to directions appropriately, demonstrating good problem solving skills, and aware of any deficits or impairments, if present. Orientation level: Oriented x4 Following commands: Follows all commands and directions without difficulty Home Living Lives with: Alone Receives help from: Patient does not need help from others at baseline Type of home: Trailer/ Home layout: One level, No stairs to enter, Ramped entrance Home equipment available: bedside commode, cane, straight, rollator, shower chair, wheelchair, manual Functional Mobility PLOF: Patient reports being modified independent with all functional mobility with the use of cane or rollator. Activities of Daily Living PLOF: Patient reports being complete independent with all ADL's prior toonset. Does the patient have a recent history of falls?: Yes; patient has had 1 fall(s) in the past 6 months Objective Vitals Stable Range of Motion Assessment BUE WFL Strength Assessment BUE WFL Coordination/Sensation Coordination: The patient's gross motor coordination is intact. Sensation: Patient reports no sensation deficits. Bed Mobility Supine to sit: Minimal assistance, Use of bedrails Transfers Sit to stand:Contact guard, Gait belt used, Rolling walker used Stand to sit:Contact guard, Gait belt used, Rolling walker used Bed to chair transfer:Contact guard, Gait belt used, Rolling walker used Pt ambulated to room door and back to chair using RW with CGA, slow pace, and verbal cues for safety. ADLs Feeding:Independent Grooming:Independent Bathing:Moderate Assistance Upper body dressing:Setup Lower body dressing:Maximal Assistance Toileting:Moderate Assistance Pt required max A to don socks. Outcome Measures [facility] Daily Living Functional Assessment How much help from another person does the patient currently need: Putting on and taking off regular lower body clothing? 2 Bathing, including washing, rinsing, and drying? 2 Toileting, including using toilet, bedpan or urinal? 2 Putting on and taking off regular upper body clothing? 3 Taking care of personal grooming such as brushing teeth? 4 Eating meals? 4 1=Total/Unable (Total assist/Dependent) 2=A lot (Maximal/Moderate assist) 3=A little (Minimal/Contact guard/Supervision/Setup) 4=None (Modified independent/Independent) The patient's [facility] raw score is 17. The patient currently has 50.11% functional impairment. Clinicians are most likely to recommend inpatient/SNF/prison care for patients with scores between 6-17, home health for scores between 18-22, and routine discharge for scores above 22. Balance Static sitting balance:Good: Patient able to maintain balance without handheld support; limited postural sway Dynamic sitting balance:Good: Patient accepts moderate challenge; able to maintain balance while picking object off the floor Static standing balance:Fair: Patient able to maintain balance with handheld support, may require occasional minimal assistance Activity Tolerance Patient limited with activity/intervention due to pain and fatigue Treatment See above. Assessment Assessment Prior to admission, patient was independent with ADLs, was independent with functional mobility. Currently the patient presents with decreased balance , difficulty with ADLs, impaired endurance, impaired functional mobility. These deficits currently impact the patient's ability to perform ADLs and functional mobility, putting them at an increased risk for poor outcomes, further functional decline. The patient has good rehab potential and would benefit from OT services to address the aforementioned functional deficits in order to return to prior level of function. The patient's current AMPA score of 17 would indicate that the patient will likely be appropriate for inpatient rehab/SNF/ prison care post hospitalization. Plan Recommendations Discharge recommendations: Patient would benefit from 1-2 hours of multidisciplinary therapy per day upon discharge from acute care setting to assist with returning to prior level of functioning. DME recommendations: Patient has no adaptive/DME needs for discharge at this time. Treatment Plan: Adaptive equipment training, ADL training, Energy conservation instruction, Functional mobility/transfer training, Home program instruction, Patient/family/caregiver education, Safetytraining, Strengthening OT Frequency/Duration: 3x/week for 14 days Goals Lower body dressing: donning and doffing lower body clothing, using AE as needed with minimal assistance. Toileting: toileting with standby assist. Functional transfers: ambulatory transfer, using RW with modified independence. Target Date: 10/26/2024 Goals were discussed with patient Education Patient educated on safety, role of occupational therapy, patient's plan of care, ADLs, functional mobility and following, they were able to verbalize understanding. Patient Disposition Upon Leaving Patient disposition upon leaving: Sitting in bedside chair, All needs met and within reach, Call light/pull cord in reach, Feet elevated, Nursing aware/notified If this patient discharges prior to next therapy session, this note serves as the patient's discharge summary. Electronically signed by NIKHIL Pimentel/Yariel - 10/12/2024 - 1:05 PM EDT OT Evaluation Completed * Fabio Bates, PT - 10/12/2024 12:12 PM EDT Images from the original note were not included. Inpatient Physical Therapy Initial Evaluation Patient Name: Louie Sanon Date of : 1940 Date of Evaluation: 10/12/24 In Time 1147 Out Time 1212 Session Duration 25 minutes Time spent for nursing collaboration, chart and systems review, and clinical reasoning. 10 minutes Total Time 35 minutes CPT CODES: 12666 Eval mod complex, No charge Rehab each add 15 min x 1 Pt is a 84 y.o. female admitted on 10/10/2024 with Joint infection (HCC) [M00.9] Post op infection [T81.40XA]. Past Medical History: Diagnosis Date Arthritis Asthma [...] 08/23/2024 Procedure: RIGHT TOTAL KNEE ARTHROPLASTY; Surgeon: Wilfrido Stafford MD; Location: [facility]; Service: Orthopedic Surgery; Laterality: Right; Slight Bruising noted at site of bovie pad removal, Left thigh CARDIAC CATHETERIZATION GALLBLADDER SURGERY HYSTERECTOMY I&D,ABSCESS LEG Right 10/11/2024 Procedure: IRRIGATION AND DEBRIDEMENT, SUBCUTANEOUS TISSUE, SKIN, WITH JOINT ASPIRATION AND CLOSURE, POST TOTAL KNEE REPLACEMENT; Surgeon: Wilfrido Stafford MD; Location: [facility]; Service: Orthopedic Surgery; Laterality: Right; Procedure on Brain Mass removed. TONSILLECTOMY General Visit Type: Initial Evaluation Approved By: Nurse Kirk Patient Disposition Upon Entry: Supine in bed, Call Light/Pull Cord in reach, All needs met and within reach, Nursing aware/notified, Bed Alarm applied , Yellow non-slip socks donned Patient Verified By: Name and Date of Co-treated by: OT Precautions Weight-Bearing Status: No Restrictions, No weight bearing status in chart Precautions: Fall risk Isolation Precautions: Standard Lines, tubes, drains, airway: nasal cannula Brace/protective equipment: knee immobilizer, RLE Subjective Subjective: Patient agreeable to physical therapy evaluation and treatment. Pain Yes. 0-10 SCALE Pain location: R knee 7/10. Pain intervention: Ambulation/increased activity. Response to intervention: Gradually improving Cognition Overall cognitive status: Patient is awake and alert, attending to directions appropriately, demonstrating good problem solving skills, and aware of any deficits or impairments, if present. Orientation Level: Oriented x4 Home Living Lives with: Alone Home Type: Mobile home Home Layout: One level Stairs to enter: ramped entrance Stairs inside home: none Home Equipment: Rollator, Single point cane, Manual wheelchair, BSC, Shower chair Functional Mobility PLOF: Patient reports being modified independent with all functional mobility with the use of Rollator and Single point cane Activities of Daily Living PLOF: Patient reports being modified independent with all ADL's with theuse of Rollator and Single point cane Fall History: Yes, patient reports 1 fall(s) in the last 6 months. Objective Vitals Vitals stable. Basic Strength Assessment BLE WFL except R knee impaired and in knee immobilizer Range of Motion Assessment WFL LLE WFL RLE Sensation No issues reported Coordination Coordination is intact and within normal limits. Functional Mobility Bed Mobility Supine to Sit: minimal assistance, HOB elevated, use of bed features Transfers Sit to Stand: contact guard assist, gait belt used, rolling walker used Stand to Sit: contact guard assist, gait belt used, rolling walker used Bed to/from Chair: contact guard assist, gait belt used, rolling walker used Gait Gait Assistance: contact guard assist Assistive Device: Gait Belt, Rolling walker Distance: 30ft Gait speed: Decreased karishma Deviation(s): short step length, decreased stance time RLE, decreased heel strike, minor instability, increased trunk flexion Stair Management Not assessed. Patient does not have to negotiate stairs in home or community environment. Wheelchair Mobility Not assessed, patient ambulatory. Outcome Measures -[facility] Basic Mobility Inpatient Short Form How much difficulty does the patient currently have: Turning over in bed (including adjusting bedclothes, sheets, and blankets)? (4) None (the patient can do the activity independently WITHOUT using assistive devices OR help from another person) Sitting down on and standing up from [...] bed to a chair (including a wheelchair)? (3) A little (Minimal/Contact guard/Supervision/Setup) Need to walk in hospital room? (3) A little (Minimal/Contact guard/Supervision/Setup) Climbing 3-5 steps with a railing? (1) Total/Unable (Total assist/dependent) Score Raw score=13 t-Scale score=36.74 Standard error=2.99 CMS 0-100%=64.91% MDC=4.72 A raw score of >= 16 [...] may require occasional minimal assistance Standing Dynamic Fair - patient accepts minimal challenge; able to maintain balance while turning head/trunk Activity Tolerance Patient limited with activity/intervention due to fatigue, deconditioning, and weakness Treatment See above assessment. Pt ambulated short distance in room with RW and CGA. Transferred to bedside chair. Verbal cues for safety. No major loss of balance. No distress after transfer to chair at end of session. Assessment Pt presents with decreased strength, impaired gait, and decreased independence complicated by multiple co-morbidities. Pt will benefit from skilled PT to improve mobility, strength, and gait with goal of return to prior level of function. Problems: Decreased functional mobility, Decreased gait tolerance, Decreased strength, Decreased activity tolerance, Impaired standing balance, Impaired dynamic balance, Gait impairment Rehab potential: Good for stated goals Plan Treatment Plan: Therapeutic Exercise, Therapeutic Activity, Gait Training, Transfer Training, Balance Training, Stair Training, Strengthening, Home Exercise Program, ROM, Patient/Family/Caregiver Education, DME Recommendations, Co-Treat with OT PT Frequency/Duration: 3x/week for 14 days Recommendations Discharge recommendations: Patient would benefit from 1-2 hours of multidisciplinary therapy per day upon discharge from acute care setting to assist with returning to prior level of functioning. DME recommendations: Unable to make recommendations at this time. Goals Sit to/from stand: Sit to stand mod I with RW to return to PLOF. Gait: Ambulate 100ft with RW mod I to return to PLOF. Transfer: Stand step pivot transfer mod I with RW to return to PLOF. Target Date: 10/26/2024 Goals were discussed with patient Education Patient [...] Electronically signed by Fabio Bates, PT - 10/12/24 - 3:32 PM EDT PT Evaluation Completed * Brigitte Boone MD - 10/12/2024 10:10 AM EDT Subjective Seen and examined today. She underwent I&D and liner exchange. Started on antibiotics. Pain improved. Labs noted Review of Systems Knee pain, swelling No fever No Nausea or vomiting Objective Last Recorded Vitals Blood pressure (!) 144/62, pulse 66, temperature 97 ??F (36.1 ??C), resp. rate 18, height 1.6 m (5'2.99 ), weight 110.6 kg (243 lb 13.3 oz), SpO2 93%. Physical Exam Head atraumatic normocephalic Constitutional alert oriented obese Cardiovascular S1-S2 no murmur gallops rubs appreciated Respiratory clear to ausculation bilateral, no crepitation or wheeze Labs: Results for orders placed or performed during the hospital encounter of 10/10/24 (from the past 24 hours) Glucose, Nova Meter Status: Abnormal Collection Time: 10/11/24 11:10 AM Result Value Ref Range POC-GLUCOSE 132 (H) 70 - 110 mg/dL Systems Specialist [id number] Glucose, Nova Meter Status: Abnormal Collection Time: 10/11/24 11:59 AM Result Value Ref Range POC-GLUCOSE 119 (H) 70 - 110 mg/dL Systems Specialist [id number] Tissue Culture+ Stain Status: None (Preliminary result) Collection Time: 10/11/24 2:30 PM Specimen: Knee, Right; Tissue Result Value Ref Range Result No growth Gram Stain Result No organisms seen Gram Stain Result No cells seen Anaerobic Culture, Extended (P.acnes) Status: None (Preliminary result) Collection Time: 10/11/24 2:30 PM Specimen: Knee, Right; Tissue Result Value Ref Range Result Culture in progress Fungus Culture W/ERUM Or Alma Ink Status: None (Preliminary result) Collection Time: 10/11/24 2:30 PM Specimen: Knee, Right; Tissue Result Value Ref Range ERUM Prep No fungal elements seen Tissue Culture+ Stain Status: None (Preliminary result) Collection Time: 10/11/24 2:31 PM Specimen: Knee, Right; Tissue Result Value Ref Range Result No growth Gram Stain Result Rare gram positive cocci in pairs and clusters Gram Stain Result Rare WBCs Gram Stain Result Rare epithelial cells Tissue Culture+ Stain Status: None (Preliminary result) Collection Time: 10/11/24 2:31 PM Specimen: Knee, Right; Tissue Result Value Ref Range Result Culture in progress Gram Stain Result Few gram positive cocci in pairs and clusters Gram Stain Result Few WBCs Gram Stain Result Few epithelial cells Anaerobic Culture, Extended (P.acnes) Status: None (Preliminary result) Collection Time: 10/11/24 2:31 PM Specimen: Knee, Right; Tissue Result Value Ref Range Result Culture in progress Anaerobic Culture, Extended (P.acnes) Status: None (Preliminary result) Collection Time: 10/11/24 2:31 PM Specimen: Knee, Right; Tissue Result Value Ref Range Result Culture in progress Fungus Culture W/ERUM Or Alma Ink Status: None (Preliminary result) Collection Time: 10/11/24 2:31 PM Specimen: Knee, Right; Tissue Result Value Ref Range ERUM Prep No fungal elements seen Fungus Culture W/ERUM Or Alma Ink Status: None (Preliminary result) Collection Time: 10/11/24 2:31 PM Specimen: Knee, Right; Tissue Result Value Ref Range ERUM Prep No fungal elements seen Body fluid cell count with differential Status: Abnormal Collection Time: 10/11/24 2:33 PM Result Value Ref Range Appearance Bloody (A) Clear Color Red BODY FLUID TYPE Synovial Auto WBC/Nucleated Cells BF 1,861 /uL Auto RBC BF 80,000 /uL DIFFERENTIAL, BODY FLUID Status: None Collection Time: 10/11/24 2:33 PM Result Value Ref Range Neutrophils Fluid 67 0 - 25 % Lymphocytes Fluid 10 % Monocytes Fluid 14 0 - 65 % EOSINOPHILS 9 Glucose, Nova Meter Status: Abnormal Collection Time: 10/11/24 3:48 PM Result Value Ref Range POC-GLUCOSE 138 (H) 70 - 110 mg/dL Systems Specialist [id number] Glucose, Nova Meter Status: Abnormal Collection Time: 10/11/24 6:12 PM Result Value Ref Range POC-GLUCOSE 273 (H) 70 - 110 mg/dL Systems Specialist [id number] Glucose, Nova Meter Status: Abnormal Collection Time: 10/11/24 8:58 PM Result Value Ref Range POC-GLUCOSE 265 (H) 70 - 110 mg/dL Systems Specialist [id number] Glucose, Nova Meter Status: Abnormal Collection Time: 10/12/24 7:37 AM Result Value Ref Range POC-GLUCOSE 277 (H) 70 - 110 mg/dL Systems Specialist [id number] CT lower extremity without IV contrast right [...] Yun. Transcribed by Yesenia Cano PA-C. Assessment and Plan #Post-op infection s/p Right TKA S/P underwent I&D and liner exchange 10/11 Follow surgical cultures. ceftriaxone 2 g IV every 24 hours ,daptomycin 6 mg/kg IV every 24 hours. D PICC line placement. She doesn't want to have diasysus in future if needed Infectious disease following #Chronic hypoxic respiratory failure H/O asthma / COPD with frequent exacerbations -On 2L NC at baseline. -Titrate based on oxygen saturation. -Using home inhalers. -Duonebs as needed. #Chronic diastolic heart failure Hypertension -No echo to review, report per PAT testing. -Holding home Aldactone and Demadex due to elevated sCr. -Start metoprolol XL 25 mg once daily in interim. CAD Chronic LBBB -S/p [facility] 07/2019 with mild CAD. -Follow up with head sawyer automatic per recommendations. CKD She states that she doesn't want to do dialysis in the future Ok with PIVV line Monitor kidney function Type II diabetes mellitus Sidling scale inulin Elevated 277 MARCELA -Continue home CPAP pm. Morbid obesity -BMI 43.19. Complicates all aspects of care. Gout -Resume Allopurinol in am. Chronic pain -On home Tramadol. Pain regimen per ortho as above. CODE Status patient is DNR/DNI Discharge Planning: N * Rossy Saldivar RN - 10/11/2024 4:09 PM EDT CARE TAKEN OVER BY THIS RN AT 1600 * Brigitte Boone MD - 10/11/2024 9:22 AM EDT Subjective Seen and examined today. NPO. Orthopedic consulted. Review of Systems Knee pain, swelling No fever No Nausea or vomiting Objective Last Recorded Vitals Blood pressure (!) 142/58, pulse 66, temperature 98.8 ??F (37.1 ??C), resp. rate 21, height 1.6 m (5' 2.99 ), weight 110.6 kg (243 lb 13.3 oz), SpO2 93%. Physical Exam Head atraumatic normocephalic Constitutional alert oriented obese Cardiovascular S1-S2 no murmur gallops rubs appreciated Respiratory clear to ausculation bilateral, no crepitation or wheeze Labs: Results for orders placed or performed during the hospital encounter of 10/10/24 (from the past 24 hours) Glucose, Nova Meter Status: Abnormal Collection Time: 10/10/24 5:41 PM Result Value Ref Range POC-GLUCOSE 345 (H) 70 - 110 mg/dL Systems Specialist [id number] Procalcitonin Status: Normal Collection Time: 10/10/24 7:06 PM Result Value Ref Range Procalcitonin <0.14 <=0.50 ng/mL C-Reactive Protein Status: Normal Collection Time: 10/10/24 7:06 PM Result Value Ref Range CRP 0.60 0.00 - 0.90 mg/dL PT/INR, PTT Status: Normal Collection Time: 10/10/24 7:06 PM Result Value Ref Range aPTT 24.0 22.0 - 32.0 seconds Protime 11.0 9.0 - 12.0 seconds INR 1.01 0.80 - 1.10 Comprehensive metabolic panel Status: Abnormal Collection Time: 10/10/24 7:06 PM Result Value Ref Range Sodium 132 (L) 136 - 146 meq/L Potassium 3.9 3.5 - 5.1 meq/L Chloride 96 (L) 102 - 112 meq/L CO2 32 21 - 32 meq/L Calcium 9.0 8.5 - 10.1 mg/dL Glucose 305 (H) 74 - 106 mg/dL BUN 23 (H) 7 - 22 mg/dL Creatinine 1.68 (H) 0.55 - 1.02 mg/dL BUN/Creatinine 14 8 - 20 Albumin 3.2 (L) 3.4 - 5.0 g/dL Alkaline Phosphatase 99 27 - 136 U/L ALT 25 12 - 78 U/L AST 27 5 - 37 U/L Total Bilirubin 0.4 0.2 - 1.3 mg/dL Protein, Total 7.1 6.4 - 8.2 gm/dL Anion Gap 8 (L) 9 - 20 A/G Ratio 0.8 (L) 1.1 - 2.5 Globulin 3.9 1.5 - 4.5 g/dL Osmolality Calc 279.7 mOsm/kg eGFR (mL/min/1.73m2) 30 (L) >=60 mL/min/1.73m2 Magnesium Status: Normal Collection Time: 10/10/24 7:06 PM Result Value Ref Range Magnesium 1.7 1.5 - 2.4 mg/dL PROBNP Status: Abnormal Collection Time: 10/10/24 7:06 PM Result Value Ref Range ProBNP (pg/mL) 815 (H) 0 - 450 pg/mL Glucose, Nova Meter Status: Abnormal Collection Time: 10/10/24 8:57 PM Result Value Ref Range POC-GLUCOSE 240 (H) 70 - 110 mg/dL Systems Specialist [id number] Glucose, Nova Meter Status: Abnormal Collection Time: 10/11/24 5:59 AM Result Value Ref Range POC-GLUCOSE 132 (H) 70 - 110 mg/dL Systems Specialist [id number] CBC - Hemogram (SJ-BKR) Status: Abnormal Collection Time: 10/11/24 6:21 AM Result Value Ref Range WBC 6.9 3.9 - 10.0 K/??L RBC 4.62 3.93 - 6.08 M/??L Hemoglobin 13.9 11.2 - 15.7 GM/DL Hematocrit 42.0 34.1 - 44.9 % MCV 91 79 - 95 fL MCH 30.1 25.6 - 32.2 pg MCHC 33.1 32.2 - 36.5 GM/DL RDW 13.1 11.6 - 14.4 % Platelets 263 163 - 369 K/CU MM MPV 9.3 (L) 9.4 - 12.4 fL nRBC 0 (L) 1 - 5 /100 WBC Basic Metabolic Panel Status: Abnormal Collection Time: 10/11/24 6:21 AM Result Value Ref Range Sodium 137 136 - 146 meq/L Potassium 3.8 3.5 - 5.1 meq/L Chloride 101 (L) 102 - 112 meq/L CO2 33 (H) 21 - 32 meq/L Anion Gap 7 (L) 9 - 20 BUN 26 (H) 7 - 22 mg/dL Creatinine 1.52 (H) 0.55 - 1.02 mg/dL BUN/Creatinine 17 8 - 20 Glucose 122 (H) 74 - 106 mg/dL Calcium 9.1 8.5 - 10.1 mg/dL Osmolality Calc 279.9 mOsm/kg eGFR (mL/min/1.73m2) 33 (L) >=60 mL/min/1.73m2 Creatine Kinase (CK) Status: Normal Collection Time: 10/11/24 6:21 AM Result Value Ref Range Total CK 87 26 - 192 U/L CT lower extremity without IV contrast right [...] Yun. Transcribed by Yesenia Cano PA-C. Assessment and Plan #Post-op infection s/p Right TKA Consult infectious disease Keep NPO after MN #Chronic hypoxic respiratory failure H/O asthma / COPD with frequent exacerbations -On 2L NC at baseline. -Titrate based on oxygen saturation. -Using home inhalers. -Duonebs as needed. #Chronic diastolic heart failure Hypertension -No echo to review, report per PAT testing. -Holding home Aldactone and Demadex due to elevated sCr. -Start metoprolol XL 25 mg once daily in interim. CAD Chronic LBBB -S/p [facility] 07/2019 with mild CAD. -Follow up with head sawyer automatic per recommendations. CKD Check BMP Type II diabetes mellitus Sidling scale inulin MARCELA -Continue home CPAP pm. Morbid obesity -BMI 43.19. Complicates all aspects of care. Gout -Resume Allopurinol in am. Chronic pain -On home Tramadol. Pain regimen per ortho as above. CODE Status patient is DNR/DNI Discharge Planning: NPO plan for OR today. Start antibiotics after procedure documented in this encounter H&P Notes * Wilfrido Stafford MD - 10/11/2024 12:25 PM EDT H&P reviewed. The patient was examined and there are no changes to the H&P. Source Note - Brigitte Boone MD - 10/10/2024 4:42 PM EDT History of Present Illness History Of Present Illness Louie Sanon is a 84 y.o. female with past medical history of chronic kidney disease, COPD,coronary artery disease, diabetes, hyperlipidemia, hypertension, obstructive sleep apnea, she was sent from [facility] orthopedic for postoperative infection, status post right TKA 08/23/2024. . Patientreported after her procedure she started having swelling redness and pain getting worse, she deniesfever or chills. She was seen by her orthopedic and she was sent in for incision and drainage tomorrow Past Medical History She has a past medical history of Arthritis, Asthma, Blood transfusion without reported diagnosis, Cervical radiculopathy, Chronic renal insufficiency, COPD (chronic obstructive pulmonary disease) (HCC), Coronary artery disease, Diabetes mellitus (HCC), Dyspnea on exertion, Former smoker, Gout, Hyperlipidemia, Hypertension, Obesity, MARCELA on CPAP, Right knee pain, Skin cancer, and Wears glasses. Surgical History She has a past surgical history that includes Cardiac catheterization; Hysterectomy; Appendectomy; Tonsillectomy; Gallbladder surgery; Procedure on Brain; and ARTHROPLASTY,KNEE (Right, 08/23/2024). Social History She reports that she has quit smoking. Her smoking use included cigarettes. She has never used smokeless tobacco. She reports that she does not drink alcohol and does not use drugs. Family History Her family history is not on file. Allergies Codeine, Latex, Penicillin, Byetta [Exenatide], Cephalosporins, Doxycycline, Glyburide, Levaquin [Levofloxacin], Levbid [Hyoscyamine Sulfate], Oxycodone, Percodan [Oxycodone-Aspirin], and Sulfa (Sulfonamide Antibiotics) Medications Current Outpatient Medications Medication Instructions acetaminophen (TYLENOL) 650 mg, oral, Every 6 hours PRN albuterol 90 mcg/actuation inhaler 2 puffs, inhalation, Every 6 hours PRN albuterol 2.5 mg, nebulization, Every 4 hours PRN allopurinoL (ZYLOPRIM) 100 mg, Daily cholecalciferol (vitamin D3) 2,000 Units, Daily insulin aspart U-100 (NOVOLOG U-100 INSULIN ASPART) 15 Units, 3 times daily before meals Lantus Solostar U-100 Insulin 40 Units, 2 times daily mupirocin (BACTROBAN) 2 % ointment 1 Application, 3 times daily ondansetron (ZOFRAN) 4 mg, oral, Every 8 hours PRN OXYGEN-AIR DELIVERY SYSTEMS MISC 2 liter at night time. . spironolactone (ALDACTONE) 25 mg, Daily torsemide (DEMADEX) 100 MG tablet 0.5 tablets, Daily traMADoL (ULTRAM) 50 mg, Every 6 hours PRN Review of Systems Review of Systems As above Last Recorded Vitals There were no vitals taken for this visit. Physical Exam Head atraumatic normal cephalic Constitutional alert oriented not in acute distress or pain Cardiovascular S1-S2 no murmur gallops rubs appreciated Respiratory clear to auscultation bilateral, no crepitation or wheeze Musculoskeletal, right knee swelling, tenderness and red Diagnostic Results No visits with results within 1 Day(s) from this visit. Latest known visit with results is: Admission on 08/23/2024, Discharged on 08/26/2024 Component Date Value Ref Range Status POC-GLUCOSE 08/23/2024 218 (H) 70 - 110 mg/dL Final Systems Specialist 08/23/2024 [id number] Final WBC 08/25/2024 11.7 (H) 3.9 - 10.0 K/??L Final RBC 08/25/2024 5.97 3.93 - 6.08 M/??L Final Hemoglobin 08/25/2024 17.6 (H) 11.2 - 15.7 GM/DL Final Hematocrit 08/25/2024 54.0 (H) 34.1 - 44.9 % Final MCV 08/25/2024 91 79 - 95 fL Final MCH 08/25/2024 29.5 25.6 - 32.2 pg Final MCHC 08/25/2024 32.6 32.2 - 36.5 GM/DL Final RDW 08/25/2024 14.9 (H) 11.6 - 14.4 % Final Platelets 08/25/2024 119 (L) 163 - 369 K/CU MM Final MPV 08/25/2024 9.7 9.4 - 12.4 fL Final % Neutros 08/25/2024 65 34 - 71 % Final % Lymphs 08/25/2024 18 (L) 19 - 53 % Final % Monos 08/25/2024 15 (H) 4 - 13 % Final % Eos 08/25/2024 1 1 - 7 % Final % Baso 08/25/2024 1 0 - 1 % Final # Neutros 08/25/2024 7.54 (H) 1.56 - 6.13 K/??L Final # Lymphs 08/25/2024 2.12 1.18 - 3.74 K/??L Final # Monos 08/25/2024 1.79 (H) 0.24 - 0.82 K/??L Final # Eos 08/25/2024 0.13 0.04 - 0.54 K/??L Final # Baso 08/25/2024 0.06 0.01 - 0.08 K/??L Final Immature Granulocytes-Relative 08/25/2024 0.40 0.00 - 0.60 % Final # IG 08/25/2024 0.05 0.00 - 0.05 K/uL Final Sodium 08/24/2024 134 (L) 136 - 146 meq/L Final Potassium 08/24/2024 4.3 3.5 - 5.1 meq/L Final Chloride 08/24/2024 97 (L) 102 - 112 meq/L Final CO2 08/24/2024 32 21 - 32 meq/L Final Anion Gap 08/24/2024 9 9 - 20 Final BUN 08/24/2024 41 (H) 7 - 22 mg/dL Final Creatinine 08/24/2024 1.63 (H) 0.55 - 1.02 mg/dL Final BUN/Creatinine 08/24/2024 25 (H) 8 - 20 Final Glucose 08/24/2024 230 (H) 74 - 106 mg/dL Final Calcium 08/24/2024 9.5 8.5 - 10.1 mg/dL Final Osmolality Calc 08/24/2024 285.7 mOsm/kg Final eGFR (mL/min/1.73m2) 08/24/2024 31 (L) >=60 mL/min/1.73m2 Final POC-GLUCOSE 08/23/2024 227 (H) 70 - 110 mg/dL Final Systems Specialist 08/23/2024 [id number] Final POC-GLUCOSE 08/23/2024 409 (H) 70 - 110 mg/dL Final Systems Specialist 08/23/2024 [id number] Final POC-GLUCOSE 08/23/2024 435 (H) 70 - 110 mg/dL Final Systems Specialist 08/23/2024 [id number] Final POC-GLUCOSE 08/23/2024 361 (H) 70 - 110 mg/dL Final Systems Specialist 08/23/2024 [id number] Final WBC 08/24/2024 13.3 (H) 3.9 - 10.0 K/??L Final RBC 08/24/2024 5.44 3.93 - 6.08 M/??L Final Hemoglobin 08/24/2024 15.7 11.2 - 15.7 GM/DL Final Hematocrit 08/24/2024 47.8 (H) 34.1 - 44.9 % Final MCV 08/24/2024 88 79 - 95 fL Final MCH 08/24/2024 28.9 25.6 - 32.2 pg Final MCHC 08/24/2024 32.8 32.2 - 36.5 GM/DL Final RDW 08/24/2024 14.3 11.6 - 14.4 % Final Platelets 08/24/2024 277 163 - 369 K/CU MM Final MPV 08/24/2024 9.3 (L) 9.4 - 12.4 fL Final % Neutros 08/24/2024 83 (H) 34 - 71 % Final % Lymphs 08/24/2024 8 (L) 19 - 53 % Final % Monos 08/24/2024 8 4 - 13 % Final % Eos 08/24/2024 0 (L) 1 - 7 % Final % Baso 08/24/2024 0 0 - 1 % Final # Neutros 08/24/2024 11.04 (H) 1.56 - 6.13 K/??L Final # Lymphs 08/24/2024 1.10 (L) 1.18 - 3.74 K/??L Final # Monos 08/24/2024 1.05 (H) 0.24 - 0.82 K/??L Final # Eos 08/24/2024 0.00 (L) 0.04 - 0.54 K/??L Final # Baso 08/24/2024 0.01 0.01 - 0.08 K/??L Final Immature Granulocytes-Relative 08/24/2024 0.50 0.00 - 0.60 % Final # IG 08/24/2024 0.06 (H) 0.00 - 0.05 K/uL Final POC-GLUCOSE 08/24/2024 222 (H) 70 - 110 mg/dL Final Systems Specialist 08/24/2024 [id number] Final POC-GLUCOSE 08/24/2024 243 (H) 70 - 110 mg/dL Final Systems Specialist 08/24/2024 [id number] Final POC-GLUCOSE 08/24/2024 260 (H) 70 - 110 mg/dL Final Systems Specialist 08/24/2024 [id number] Final POC-GLUCOSE 08/24/2024 203 (H) 70 - 110 mg/dL Final Systems Specialist 08/24/2024 [id number] Final Sodium 08/25/2024 133 (L) 136 - 146 meq/L Final Potassium 08/25/2024 4.3 3.5 - 5.1 meq/L Final Chloride 08/25/2024 97 (L) 102 - 112 meq/L Final CO2 08/25/2024 32 21 - 32 meq/L Final Anion Gap 08/25/2024 8 (L) 9 - 20 Final BUN 08/25/2024 40 (H) 7 - 22 mg/dL Final Creatinine 08/25/2024 1.52 (H) 0.55 - 1.02 mg/dL Final BUN/Creatinine 08/25/2024 26 (H) 8 - 20 Final Glucose 08/25/2024 182 (H) 74 - 106 mg/dL Final Calcium 08/25/2024 9.2 8.5 - 10.1 mg/dL Final Osmolality Calc 08/25/2024 280.8 mOsm/kg Final eGFR (mL/min/1.73m2) 08/25/2024 33 (L) >=60 mL/min/1.73m2 Final POC-GLUCOSE 08/25/2024 193 (H) 70 - 110 mg/dL Final Systems Specialist 08/25/2024 [id number] Final POC-GLUCOSE 08/25/2024 231 (H) 70 - 110 mg/dL Final Systems Specialist 08/25/2024 [id number] Final POC-GLUCOSE 08/25/2024 224 (H) 70 - 110 mg/dL Final Systems Specialist 08/25/2024 [id number] Final POC-GLUCOSE 08/25/2024 258 (H) 70 - 110 mg/dL Final Systems Specialist 08/25/2024 [id number] Final Sodium 08/26/2024 136 136 - 146 meq/L Final Potassium 08/26/2024 4.0 3.5 - 5.1 meq/L Final Chloride 08/26/2024 100 (L) 102 - 112 meq/L Final CO2 08/26/2024 32 21 - 32 meq/L Final Anion Gap 08/26/2024 8 (L) 9 - 20 Final BUN 08/26/2024 36 (H) 7 - 22 mg/dL Final Creatinine 08/26/2024 1.22 (H) 0.55 - 1.02 mg/dL Final BUN/Creatinine 08/26/2024 30 (H) 8 - 20 Final Glucose 08/26/2024 125 (H) 74 - 106 mg/dL Final Calcium 08/26/2024 8.6 8.5 - 10.1 mg/dL Final Osmolality Calc 08/26/2024 281.8 mOsm/kg Final eGFR (mL/min/1.73m2) 08/26/2024 43 (L) >=60 mL/min/1.73m2 Final Hemoglobin 08/26/2024 14.6 11.2 - 15.7 GM/DL Final Hematocrit 08/26/2024 44.3 34.1 - 44.9 % Final POC-GLUCOSE 08/26/2024 138 (H) 70 - 110 mg/dL Final Systems Specialist 08/26/2024 [id number] Final POC-GLUCOSE 08/26/2024 157 (H) 70 - 110 mg/dL Final Systems Specialist 08/26/[id number] lower extremity without IV contrast right [...] reviewed, interpreted, and dictated by Dr. Antwon Ynu. Transcribed by Yesenia Cano PA-C. Assessment and Plan #Post-op infection s/p Right TKA Order labs CRP, Procal Consult infectious disease Keep NPO after MN #Chronic hypoxic respiratory failure H/O asthma / COPD with frequent exacerbations -On 2L NC at baseline. -Titrate based on oxygen saturation. -Using home inhalers. -Duonebs as needed. #Chronic diastolic heart failure Hypertension -No echo to review, report per PAT testing. -Holding home Aldactone and Demadex due to elevated sCr. -Start metoprolol XL 25 mg once daily in interim. CAD Chronic LBBB -S/p [facility] 07/2019 with mild CAD. -Follow up with head sawyer automatic per recommendations. CKD Check BMP Type II diabetes mellitus Sidling scale inulin MARCELA -Continue home CPAP pm. Morbid obesity -BMI 43.19. Complicates all aspects of care. Gout -Resume Allopurinol in am. Chronic pain -On home Tramadol. Pain regimen per ortho as above. CODE Status patient is DNR/DNI After discussion with orthopedic decision was made for admission This patient is expected to need 2 midnights or greater length of stay due to medical issues and acute problems mentioned above Electronically signed by: Brigitte Boone MD, 10/10/2024 at 4:42 PM * Brigitte Boone MD - 10/10/2024 4:42 PM EDT History of Present Illness History Of Present Illness Louie Sanon is a 84 y.o. female with past medical history of chronic kidney disease, COPD,coronary artery disease, diabetes, hyperlipidemia, hypertension, obstructive sleep apnea, she was sent from [facility] orthopedic for postoperative infection, status post right TKA 08/23/2024. . Patientreported after her procedure she started having swelling redness and pain getting worse, she deniesfever or chills. She was seen by her orthopedic and she was sent in for incision and drainage tomorrow Past Medical History She has a past medical history of Arthritis, Asthma, Blood transfusion without reported diagnosis, Cervical radiculopathy, Chronic renal insufficiency, COPD (chronic obstructive pulmonary disease) (HCC), Coronary artery disease, Diabetes mellitus (HCC), Dyspnea on exertion, Former smoker, Gout, Hyperlipidemia, Hypertension, Obesity, MARCELA on CPAP, Right knee pain, Skin cancer, and Wears glasses. Surgical History She has a past surgical history that includes Cardiac catheterization; Hysterectomy; Appendectomy; Tonsillectomy; Gallbladder surgery; Procedure on Brain; and ARTHROPLASTY,KNEE (Right, 08/23/2024). Social History She reports that she has quit smoking. Her smoking use included cigarettes. She has never used smokeless tobacco. She reports that she does not drink alcohol and does not use drugs. Family History Her family history is not on file. Allergies Codeine, Latex, Penicillin, Byetta [Exenatide], Cephalosporins, Doxycycline, Glyburide, Levaquin [Levofloxacin], Levbid [Hyoscyamine Sulfate], Oxycodone, Percodan [Oxycodone-Aspirin], and Sulfa (Sulfonamide Antibiotics) Medications Current Outpatient Medications Medication Instructions acetaminophen (TYLENOL) 650 mg, oral, Every 6 hours PRN albuterol 90 mcg/actuation inhaler 2 puffs, inhalation, Every 6 hours PRN albuterol 2.5 mg, nebulization, Every 4 hours PRN allopurinoL (ZYLOPRIM) 100 mg, Daily cholecalciferol (vitamin D3) 2,000 Units, Daily insulin aspart U-100 (NOVOLOG U-100 INSULIN ASPART) 15 Units, 3 times daily before meals Lantus Solostar U-100 Insulin 40 Units, 2 times daily mupirocin (BACTROBAN) 2 % ointment 1 Application, 3 times daily ondansetron (ZOFRAN) 4 mg, oral, Every 8 hours PRN OXYGEN-AIR DELIVERY SYSTEMS MISC 2 liter at night time. . spironolactone (ALDACTONE) 25 mg, Daily torsemide (DEMADEX) 100 MG tablet 0.5 tablets, Daily traMADoL (ULTRAM) 50 mg, Every 6 hours PRN Review of Systems Review of Systems As above Last Recorded Vitals There were no vitals taken for this visit. Physical Exam Head atraumatic normal cephalic Constitutional alert oriented not in acute distress or pain Cardiovascular S1-S2 no murmur gallops rubs appreciated Respiratory clear to auscultation bilateral, no crepitation or wheeze Musculoskeletal, right knee swelling, tenderness and red Diagnostic Results No visits with results within 1 Day(s) from this visit. Latest known visit with results is: Admission on 08/23/2024, Discharged on 08/26/2024 Component Date Value Ref Range Status POC-GLUCOSE 08/23/2024 218 (H) 70 - 110 mg/dL Final Systems Specialist 08/23/2024 [id number] Final WBC 08/25/2024 11.7 (H) 3.9 - 10.0 K/??L Final RBC 08/25/2024 5.97 3.93 - 6.08 M/??L Final Hemoglobin 08/25/2024 17.6 (H) 11.2 - 15.7 GM/DL Final Hematocrit 08/25/2024 54.0 (H) 34.1 - 44.9 % Final MCV 08/25/2024 91 79 - 95 fL Final MCH 08/25/2024 29.5 25.6 - 32.2 pg Final MCHC 08/25/2024 32.6 32.2 - 36.5 GM/DL Final RDW 08/25/2024 14.9 (H) 11.6 - 14.4 % Final Platelets 08/25/2024 119 (L) 163 - 369 K/CU MM Final MPV 08/25/2024 9.7 9.4 - 12.4 fL Final % Neutros 08/25/2024 65 34 - 71 % Final % Lymphs 08/25/2024 18 (L) 19 - 53 % Final % Monos 08/25/2024 15 (H) 4 - 13 % Final % Eos 08/25/2024 1 1 - 7 % Final % Baso 08/25/2024 1 0 - 1 % Final # Neutros 08/25/2024 7.54 (H) 1.56 - 6.13 K/??L Final # Lymphs 08/25/2024 2.12 1.18 - 3.74 K/??L Final # Monos 08/25/2024 1.79 (H) 0.24 - 0.82 K/??L Final # Eos 08/25/2024 0.13 0.04 - 0.54 K/??L Final # Baso 08/25/2024 0.06 0.01 - 0.08 K/??L Final Immature Granulocytes-Relative 08/25/2024 0.40 0.00 - 0.60 % Final # IG 08/25/2024 0.05 0.00 - 0.05 K/uL Final Sodium 08/24/2024 134 (L) 136 - 146 meq/L Final Potassium 08/24/2024 4.3 3.5 - 5.1 meq/L Final Chloride 08/24/2024 97 (L) 102 - 112 meq/L Final CO2 08/24/2024 32 21 - 32 meq/L Final Anion Gap 08/24/2024 9 9 - 20 Final BUN 08/24/2024 41 (H) 7 - 22 mg/dL Final Creatinine 08/24/2024 1.63 (H) 0.55 - 1.02 mg/dL Final BUN/Creatinine 08/24/2024 25 (H) 8 - 20 Final Glucose 08/24/2024 230 (H) 74 - 106 mg/dL Final Calcium 08/24/2024 9.5 8.5 - 10.1 mg/dL Final Osmolality Calc 08/24/2024 285.7 mOsm/kg Final eGFR (mL/min/1.73m2) 08/24/2024 31 (L) >=60 mL/min/1.73m2 Final POC-GLUCOSE 08/23/2024 227 (H) 70 - 110 mg/dL Final Systems Specialist 08/23/2024 [id number] Final POC-GLUCOSE 08/23/2024 409 (H) 70 - 110 mg/dL Final Systems Specialist 08/23/2024 [id number] Final POC-GLUCOSE 08/23/2024 435 (H) 70 - 110 mg/dL Final Systems Specialist 08/23/2024 [id number] Final POC-GLUCOSE 08/23/2024 361 (H) 70 - 110 mg/dL Final Systems Specialist 08/23/2024 [id number] Final WBC 08/24/2024 13.3 (H) 3.9 - 10.0 K/??L Final RBC 08/24/2024 5.44 3.93 - 6.08 M/??L Final Hemoglobin 08/24/2024 15.7 11.2 - 15.7 GM/DL Final Hematocrit 08/24/2024 47.8 (H) 34.1 - 44.9 % Final MCV 08/24/2024 88 79 - 95 fL Final MCH 08/24/2024 28.9 25.6 - 32.2 pg Final MCHC 08/24/2024 32.8 32.2 - 36.5 GM/DL Final RDW 08/24/2024 14.3 11.6 - 14.4 % Final Platelets 08/24/2024 277 163 - 369 K/CU MM Final MPV 08/24/2024 9.3 (L) 9.4 - 12.4 fL Final % Neutros 08/24/2024 83 (H) 34 - 71 % Final % Lymphs 08/24/2024 8 (L) 19 - 53 % Final % Monos 08/24/2024 8 4 - 13 % Final % Eos 08/24/2024 0 (L) 1 - 7 % Final % Baso 08/24/2024 0 0 - 1 % Final # Neutros 08/24/2024 11.04 (H) 1.56 - 6.13 K/??L Final # Lymphs 08/24/2024 1.10 (L) 1.18 - 3.74 K/??L Final # Monos 08/24/2024 1.05 (H) 0.24 - 0.82 K/??L Final # Eos 08/24/2024 0.00 (L) 0.04 - 0.54 K/??L Final # Baso 08/24/2024 0.01 0.01 - 0.08 K/??L Final Immature Granulocytes-Relative 08/24/2024 0.50 0.00 - 0.60 % Final # IG 08/24/2024 0.06 (H) 0.00 - 0.05 K/uL Final POC-GLUCOSE 08/24/2024 222 (H) 70 - 110 mg/dL Final Systems Specialist 08/24/2024 [id number] Final POC-GLUCOSE 08/24/2024 243 (H) 70 - 110 mg/dL Final Systems Specialist 08/24/2024 [id number] Final POC-GLUCOSE 08/24/2024 260 (H) 70 - 110 mg/dL Final Systems Specialist 08/24/2024 [id number] Final POC-GLUCOSE 08/24/2024 203 (H) 70 - 110 mg/dL Final Systems Specialist 08/24/2024 [id number] Final Sodium 08/25/2024 133 (L) 136 - 146 meq/L Final Potassium 08/25/2024 4.3 3.5 - 5.1 meq/L Final Chloride 08/25/2024 97 (L) 102 - 112 meq/L Final CO2 08/25/2024 32 21 - 32 meq/L Final Anion Gap 08/25/2024 8 (L) 9 - 20 Final BUN 08/25/2024 40 (H) 7 - 22 mg/dL Final Creatinine 08/25/2024 1.52 (H) 0.55 - 1.02 mg/dL Final BUN/Creatinine 08/25/2024 26 (H) 8 - 20 Final Glucose 08/25/2024 182 (H) 74 - 106 mg/dL Final Calcium 08/25/2024 9.2 8.5 - 10.1 mg/dL Final Osmolality Calc 08/25/2024 280.8 mOsm/kg Final eGFR (mL/min/1.73m2) 08/25/2024 33 (L) >=60 mL/min/1.73m2 Final POC-GLUCOSE 08/25/2024 193 (H) 70 - 110 mg/dL Final Systems Specialist 08/25/2024 [id number] Final POC-GLUCOSE 08/25/2024 231 (H) 70 - 110 mg/dL Final Systems Specialist 08/25/2024 [id number] Final POC-GLUCOSE 08/25/2024 224 (H) 70 - 110 mg/dL Final Systems Specialist 08/25/2024 [id number] Final POC-GLUCOSE 08/25/2024 258 (H) 70 - 110 mg/dL Final Systems Specialist 08/25/2024 [id number] Final Sodium 08/26/2024 136 136 - 146 meq/L Final Potassium 08/26/2024 4.0 3.5 - 5.1 meq/L Final Chloride 08/26/2024 100 (L) 102 - 112 meq/L Final CO2 08/26/2024 32 21 - 32 meq/L Final Anion Gap 08/26/2024 8 (L) 9 - 20 Final BUN 08/26/2024 36 (H) 7 - 22 mg/dL Final Creatinine 08/26/2024 1.22 (H) 0.55 - 1.02 mg/dL Final BUN/Creatinine 08/26/2024 30 (H) 8 - 20 Final Glucose 08/26/2024 125 (H) 74 - 106 mg/dL Final Calcium 08/26/2024 8.6 8.5 - 10.1 mg/dL Final Osmolality Calc 08/26/2024 281.8 mOsm/kg Final eGFR (mL/min/1.73m2) 08/26/2024 43 (L) >=60 mL/min/1.73m2 Final Hemoglobin 08/26/2024 14.6 11.2 - 15.7 GM/DL Final Hematocrit 08/26/2024 44.3 34.1 - 44.9 % Final POC-GLUCOSE 08/26/2024 138 (H) 70 - 110 mg/dL Final Systems Specialist 08/26/2024 [id number] Final POC-GLUCOSE 08/26/2024 157 (H) 70 - 110 mg/dL Final Systems Specialist 08/26/[id number] lower extremity without IV contrast right [...] Yun. Transcribed by Yesenia Cano PA-C. Assessment and Plan #Post-op infection s/p Right TKA Order labs CRP, Procal Consult infectious disease Keep NPO after MN #Chronic hypoxic respiratory failure H/O asthma / COPD with frequent exacerbations -On 2L NC at baseline. -Titrate based on oxygen saturation. -Using home inhalers. -Duonebs as needed. #Chronic diastolic heart failure Hypertension -No echo to review, report per PAT testing. -Holding home Aldactone and Demadex due to elevated sCr. -Start metoprolol XL 25 mg once daily in interim. CAD Chronic LBBB -S/p [facility] 07/2019 with mild CAD. -Follow up with head sawyer automatic per recommendations. CKD Check BMP Type II diabetes mellitus Sidling scale inulin MARCELA -Continue home CPAP pm. Morbid obesity -BMI 43.19. Complicates all aspects of care. Gout -Resume Allopurinol in am. Chronic pain -On home Tramadol. Pain regimen per ortho as above. CODE Status patient is DNR/DNI After discussion with orthopedic decision was made for admission This patient is expected to need 2 midnights or greater length of stay due to medical issues and acute problems mentioned above Electronically signed by: Brigitte Boone MD, 10/10/2024 at 4:42 PM documented in this encounter Consult Notes * Socorro Flores RN - 10/14/2024 11:40 AM EDTAssociated Order(s): IP CONSULT TO CARE COORDINATION Please see final note for antibiotic plan. * Uvadlo Hadley RN - 10/12/2024 10:16 AM EDTAssociated Order(s): IP CONSULT TO CARE COORDINATION Care Coordination Initial Assessment Home Environment Type of Residence: Private residence Living Arrangements: Alone Support System: Family members Current Agency Name & Number: Agency Type: SNF SNF Name and Number: [facility] Patient returning to prior living situation? No Affect/Behavior: Appropriate Prior/Regular Transportation: Family Needs assistance with transportation:No ADL Screen Patient's Vision Adequate to Safely complete ADLs:Yes Patient's Judgement Adequate to safely completed ADLs: Yes Dressing: Independent Current Home Care Services: Current Home Care Services: None Assistive DevicesYes Patient's Judgement Adequate to Safely Complete Daily Activities: Yes Dressing: Independent Special/Community Services: None Transition Needs Expected Discharge Date: Home or Post Acute Services Needed: Post acute facilities (Rehab/SNF/etc) Does the patient have the ability to fill and receive their discharge medications: Yes Discharge plan discussed: The discharge plan was discussed with patient. Discharge Barriers: Test(s) Pending Type of Assistive Devices Needed for Discharge: None Patient Discharge Goal: Residential Facility Mandated Reporting: Not applicable CM consulted for SNF placement. Met w/pt at bedside, confirmed contact, demographic and pcp information. Pt typically lives at home alone, but is currently residing at [facility] for STR. Pts goal is still to go home, but understands she still needs STR first. Pt agreeable to return to SNF. I spoke with the SNF facility admissions who advised that pt would only require a precert if she stayed longer than tomorrow. Currently, awaiting PICC line and final IV abx plan. Pt advised her cousin will be able to transport her back to the facility on discharge. CM to follow. Uvaldo Hadley RN * David Fulton MD - 10/11/2024 7:56 AM EDTAssociated Order(s): [id number] IP CONSULT TO INFECTIOUS DISEASES Infectious Disease Consult Patient Name: Louie Sanon : 1940 Date of Consult: 10/11/24 Admission Date: 10/10/2024 Requesting Provider: Brigitte Boone MD Evaluating Physician: David Fulton MD Chief Complaint: right knee pain, redness, and swelling Reason for Consultation: joint infection History of present illness: Louie Sanon is a 84 y.o. female with history of Chronic kidney disease, COPD, coronary artery disease, hypertension, hyperlipidemia, obstructive sleep apnea, and diabetes mellitus who was sent from [facility] orthopedic surgery yesterday for postoperative infection status post right TKA procedure on 08/23/[address] Stafford. Shortly after her procedure she started having swelling, redness, and worsening pain. She was not having any fevers or chills. She was seen by Dr. Stafford yesterday and was sent to the hospital for I&D procedure. She has remained afebrile since arrival. White blood cell count was normal at 6.9.Creatinine is elevated to 1.52.CRP was 0.6. Procalcitonin was less than 0.14. Blood cultures have been sent and are in progress. The patient is not currently on any antibiotics. She does have listed allergies to penicillin, cephalosporins, Levaquin, and sulfa antibiotics. She was given antibiotics with? Cefazolin perioperatively on 08/23/2024 and it appears that she tolerated this okay. ID has been consulted for antibiotic recommendations for the patient's right knee prosthetic joint infection. Review of Systems Constitutional-- No Fever, chills or sweats. Appetite good. No malaise. Heent-- No new vision, hearing or throat complaints. No epistaxis or oral sores. Denies odynophagiaor dysphagia. No headache, photophobia or neck stiffness. CV-- No chest pain, palpitation or syncope Resp-- No SOB, cough, or hemoptysis GI- No nausea, vomiting, or diarrhea. -- No dysuria, hematuria, or flank pain. Denies hesitancy, urgency or flank pain. Lymph- no swollen lymph nodes in neck, axilla or groin. Heme- No active bruising or bleeding MS-- Right knee swelling, redness, pain. Otherwise, no swelling or pain in the bones or joints of arms or legs. No new back pain. Neuro-- No acute focal weakness or numbness in the arms or legs. Skin-- No rashes, lesions, ulcers. No skin breakdown Past Medical History: Diagnosis Date Arthritis Asthma [...] 08/23/2024 Procedure: RIGHT TOTAL KNEE ARTHROPLASTY; Surgeon: Wilfrido Stafford MD; Location: [facility]; Service: Orthopedic Surgery; Laterality: Right; Slight Bruising noted at site of bovie pad removal, Left thigh CARDIAC CATHETERIZATION GALLBLADDER SURGERY HYSTERECTOMY Procedure on Brain Mass removed. TONSILLECTOMY Social History Socioeconomic History Marital status: / Spouse name: Not on file Number of children: Not on file Years of education: Not on file Highest education level: Not on file Occupational History Not on file Tobacco Use Smoking status: Former Types: Cigarettes Smokeless tobacco: Never Tobacco comments: Patient was a 3 ppd smoker x 20 years. Stopped smoking in Substance and Sexual Activity Alcohol use: Never Drug use: Never Sexual activity: Not on file Other Topics Concern Not on file Social History Narrative Not on file Social Drivers of Health Financial Resource Strain: Low Risk (10/10/2024) Financial Resource Strain Struggle to pay for basics: Not hard at all Food Insecurity: No Food Insecurity (10/10/2024) Food Insecurity Food run out past 12 months: Never true Food did not last past 12 months: Never true Transportation Needs: No Transportation Needs (10/10/2024) Transportation Needs Transportation unreliable past 12 months: No Physical Activity: Inactive (10/10/2024) Physical Activity Minutes of exercise per week: 0 Stress: No Stress Concern Present (10/10/2024) Stress Feeling stress past 2 weeks: A little bit Social Connections: Unknown (10/10/2024) Family and Community Support Help with Day to Day Activities: I don't need any help Feeling Lonely or Isolated: 0 Intimate Partner Violence: Not on file Housing Stability: Low Risk (10/10/2024) Housing Stability Living situation today: I have a steady place to live Living situation problems: None of the above No family history on file. Allergies Allergen Reactions Codeine Hives Can't remember Latex Dermatitis Patient can't remember Penicillin Hives Byetta [Exenatide] Can't remember Cephalosporins Patient can't remember-given in OR 08/24/24. No reaction reported. Doxycycline Patient can't remember Glyburide Patient can't remember Levaquin [Levofloxacin] Patient can't remember Levbid [Hyoscyamine Sulfate] Patient can't remember Oxycodone Can't remember Percodan [Oxycodone-Aspirin] Patient can't remember Sulfa (Sulfonamide Antibiotics) Patient can't remember Antibiotics: Other Medications: Current Facility-Administered Medications Medication Dose Route Frequency Provider Last Rate Last Admin acetaminophen (TYLENOL) tablet 1,000 mg 1,000 mg oral Q6H PRN Brigitte Boone MD albuterol 2.5 mg /3 mL (0.083 %) nebulizer solution 2.5 mg 2.5 mg nebulization Q4H PRN Brigitte Boone MD allopurinoL (ZYLOPRIM) tablet 100 mg 100 mg oral Daily Brigitte Boone MD 100 mg at 10/10/242148 dextrose 50% (D50W) injection 25 g 25 g intravenous Q15 Min PRN Brigitte Boone MD glucagon injection 1 mg 1 mg intraMUSCULAR Q15 Min PRN Brigitte Boone MD glucose chew tab 16 g 16 g oral Q15 Min PRN Brigitte Boone MD hydrALAZINE (APRESOLINE) injection 5 mg 5 mg intravenous Q6H PRN Brigitte Boone MD insulin glargine-yfgn (SEMGLEE) solution 20 Units 20 Units subcutaneous Every Night Brigitte Boone MD insulin lispro (HUMALOG, ADMELOG) injection 0-6 Units 0-6 Units subcutaneous 4x Daily AC Brigitte Boone MD 5 Units at 10/10/24 1854 ondansetron (ZOFRAN-ODT) disintegrating tablet 4 mg 4 mg oral Q8H PRN Brigitte Boone MD Or ondansetron (ZOFRAN) injection 4 mg 4 mg intravenous Q8H PRN Brigitte Boone MD sodium chloride flush 10 mL 10 mL intravenous PRN Brigitte Boone MD traMADoL (ULTRAM) tablet 50 mg 50 mg oral Q6H PRN Brigitte Boone MD 50 mg at 10/11/24 0620 Physical Exam: Vital Signs Vitals: 10/11/24 0307 BP: Pulse: Resp: 21 Temp: SpO2: GENERAL: Awake and alert, in no acute distress. Frail. Morbidly obese HEENT: Normocephalic, atraumatic. PERRL. No conjunctival injection. No icterus. Oropharynx clear without evidence of thrush or exudate. NECK: Supple without nuchal rigidity. No mass. HEART: RRR; No murmur. LUNGS: CTAB. Normal respiratory effort. Nonlabored. ABDOMEN: Obese abdomen. Soft, nontender, nondistended. Positive bowel sounds. No rebound or guarding. EXT: No cyanosis, clubbing or edema. : Without Velazquez catheter. MSK: right knee with an open wound with some foul smelling drainage and surrounding erythema and swelling. SKIN: No generalized rashes noted. No peripheral stigmata of infective endocarditis noted. NEURO: Oriented to PPT. Normal speech and cognition. No focal deficits noted PSYCHIATRIC: Normal insight and judgement. Cooperative with PE Laboratory Data Lab Results Component Value Date WBC 6.9 10/11/2024 HGB 13.9 10/11/2024 HCT 42.0 10/11/2024 MCV 91 10/11/2024 PLT 263 10/11/2024 Lab Results Component Value Date GLUCOSE 122 (H) 10/11/2024 CALCIUM 9.1 10/11/2024 NA 137 10/11/2024 K 3.8 10/11/2024 CO2 33 (H) 10/11/2024 CL 101 (L) 10/11/2024 BUN 26 (H) 10/11/2024 CREATININE 1.52 (H) 10/11/2024 Estimated Creatinine Clearance: 22 mL/min (A) (by C-G formula based on SCr of 1.52 mg/dL (H)). Lab Results Component Value Date ALT 25 10/10/2024 AST 27 10/10/2024 ALKPHOS 99 10/10/2024 BILITOT 0.4 10/10/2024 Lab Results Component Value Date CRP 0.60 10/10/2024 No results found for: SEDRATE Microbiology: Microbiology Results (last 7 days) Procedure Component Value Units Date/Time Blood Culture [[id number]] Collected: 10/11/24627 Order Status: Resulted Specimen: Blood Updated: 10/11/24627 Blood Culture [[id number]] Order Status: Sent Specimen: Blood Radiology: Radiology Results (last 3 days) No results found for the last 72 hours. 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 Not currently on any antibiotics and I will not plan to start antibiotics until after her procedure as I do not want to modify her surgical cultures. She is not currently overtly septic. Blood cultures are in progress.Most common culprits include Staphylococcus and Streptococcus. Chronic kidney disease stage IIIb Diabetes mellitus-complicating factor that can lead to poor wound healing and infection Multiple antibiotic allergies- She has reported allergies to penicillin, Levaquin, sulfa,Doxycycline, and cephalosporins. She tolerated Cefazolin during her procedure in August 2024 per my discussion with Dr. Stafford PLAN: -Continue to monitor CBC and CMP closely. Baseline CPK level -Dr. Stafford plans to take the patient to the OR today for I&D and liner exchange. I will follow operative findings and surgical cultures. -After her procedure, plan to start ceftriaxone 2 g IV every 24 hours plus daptomycin 6 mg/kg IV every 24 hours. Daptomycin dosing will need to be changed to every 48 hour dosing if renal function declines further. -She will need a PICC line placement. She states that she would never wish for dialysis even if sheprogressed to ESRD in the future. I suspect she will need 6 weeks of IV antibiotic therapy. Final antibiotic plan pending surgical culture results. I discussed the patient's complex case with Dr. Stafford today This visit included the following complex service elements: Complex medical decision-making associated with antimicrobial prescribing. In-depth chart review with high level synthesis for complex diagnoses. Complex MDM David Fulton MD 10/11/2024 documented in this encounter OR Notes * Op Note - Wilfrido Stafford MD - 10/11/2024 2:50 PM EDT Date: 10/11/2024 Procedures: Procedure(s): Superficial infection subcutaneous right knee after knee replacement following traumatic fall with skin abrasion laceration with I&D debridement skin subcutaneous tissuejoint aspiration negative with closure Diagnosis: Pre-Op Diagnosis Codes: * Infection of prosthetic knee joint (HCC) [T84.59XA, Z96.659] Post-Op Diagnosis Codes: * Infection of prosthetic knee joint (HCC) [T84.59XA, Z96.659] Indications: Louie Sanon is an 84 y.o. female . The risks, benefits, and alternatives of the above procedure were discussed and the patient has elected to proceed. Surgeons: Surgeons and Role: * Wilfrido Stafford MD - Primary Findings: Procedure Details: The patient was seen in the preoperative area. The site of surgery was properly noted/marked if necessary per policy. The patient has been actively warmed in preoperative area. Preoperative antibiotics have been ordered and given within 1 hours of incision. Venous thrombosis prophylaxis have been ordered including bilateral sequential compression devices supine position general anesthesia after regional block sterile prep timeout IV antibiotics given after elevation tourniquet and incision was opened using the previous scar the area of central skin opening was debrided back to healthy skin there is some subcutaneous purulence we carefully examined the extensor mechanism there was no communic ation to the joint after Betadine wash we aspirated the joint and obtained blood-tinged clear synovial fluid this was sent for culture and white cell analysis but appeared benign therefore we decidednot to proceed with deep arthrotomy we irrigated the soft tissues with 3 L of antibiotic pulse irrigation as well as Irrisept and additional irrigation we then control bleeding points placed vancomycin powder and then closed in layered fashion sterile dressing ice pack and knee immobilizer was placed patient was sent to recovery in good good condition Anesthesia: * No anesthesia type entered * Estimated Blood Loss: * No values recorded between 10/11/2024 1:53 PM and 10/11/2024 2:51 PM * Total IV Fluids: mL Drains: * No LDAs found * Specimens: Specimens (From admission, onward) Start Ordered 10/11/24 1434 [facility] Non-Ventilation Worker Cytology RELEASE UPON ORDERING 10/11/24 1434 Complications: None * No complications entered in OR log * Disposition: PACU - hemodynamically stable. Condition: stable Attending Attestation: I was present and scrubbed for the entire procedure. documented in this encounter Miscellaneous Notes * Plan of Care - Carolina Jordan RN - 10/14/2024 11:59 AM EDT Problem: Knowledge Deficit Goal: Patient/family/caregiver demonstrates understanding of disease process, treatment plan, medications, and discharge instructions Description: Complete learning assessment and assess knowledge base. Outcome: Adequate for Discharge Problem: Potential for Falls Goal: Patient will [...] per policy, and non-skid footwear provided. Outcome: Adequate for Discharge Problem: Compromised Skin Integrity Goal: LTG - Patient will be free from infection Outcome: Adequate for Discharge Goal: LTG - Patient will maintain/improve skin integrity through proper skin care techniques Outcome: Adequate for Discharge Goal: LTG - Patient will demonstrate appropriate pressure relief techniques Outcome: Adequate for Discharge Goal: LTG - Patient will demonstrate appropriate skin care techniques Outcome: Adequate for Discharge Goal: LTG - Patient will be free from infection Outcome: Adequate for Discharge Goal: STG - Patient demonstrates skin care/treatment/dressing change Outcome: Adequate for Discharge Goal: STG - Patient will maintain good skin integrity Outcome: Adequate for Discharge Goal: STG - Patient exhibits signs of wound healing. Outcome: Adequate for Discharge Goal: STG - Patient demonstrates pressure reduction techniques Outcome: Adequate for Discharge Goal: STG - Patient demonstrates preventative skin care measures Outcome: Adequate for Discharge * Plan of Care - Mary Desai RN - 10/14/2024 2:44 AM EDT Problem: Knowledge Deficit Goal: Patient/family/caregiver demonstrates understanding [...] policy, and non-skid footwear provided. Outcome: Progressing Problem: Compromised Skin Integrity Goal: LTG - [...] demonstrates preventative skin care measures Outcome: Progressing * Plan of Care - Carolina Jordan RN - 10/13/2024 1:24 PM EDT Problem: Knowledge Deficit Goal: Patient/family/caregiver demonstrates understanding [...] policy, and non-skid footwear provided. Outcome: Progressing Problem: Compromised Skin Integrity Goal: LTG - [...] demonstrates preventative skin care measures Outcome: Progressing * Plan of Care - Lana Thomas RN - 10/13/2024 6:05 AM EDT Problem: Knowledge Deficit Goal: Patient/family/caregiver demonstrates understanding [...] policy, and non-skid footwear provided. Outcome: Progressing Problem: Compromised Skin Integrity Goal: LTG - [...] demonstrates preventative skin care measures Outcome: Progressing * Plan of Care - Teeivan Snow - 10/11/2024 12:09 PM EDT Problem: Knowledge Deficit Goal: Patient/family/caregiver demonstrates understanding [...] policy, and non-skid footwear provided. Outcome: Progressing Problem: Compromised Skin Integrity Goal: LTG - [...] demonstrates preventative skin care measures Outcome: Progressing * Plan of Care - Tee Edy - 10/10/2024 6:30 PM EDT Problem: Knowledge Deficit Goal: Patient/family/caregiver demonstrates understanding [...] policy, and non-skid footwear provided. Outcome: Progressing Problem: Compromised Skin Integrity Goal: LTG - [...] demonstrates preventative skin care measures Outcome: Progressing documented in this encounter Plan of Treatment Scheduled Orders Name Type Priority Associated Diagnoses Orde r Schedule Blood Culture Microbiology STAT STAT for 1 Occurrences starting 10/10/2024 until 10/10/2024 documented as of this encounter Procedures Procedure Name Priority Date/Time Associated Diagnosis Comments NOVA GLUCOSE POC Routine 10/14/2024 11:2 8 AM EDT NOVA GLUCOSE POC Routine 10/14/2024 5:32 AM EDT CBC W/ AUTO DIFF Routine 10/14/2024 4:07 AM EDT BASIC METABOLIC PANEL Routine 10/14/2024 4:07 AM EDT NOVA GLUCOSE POC Routine 10/13/2024 8:14 PM EDT NOVA GLUCOSE POC Routine 10/13/2024 3:47 PM EDT NOVA GLUCOSE POC Routine 10/13/2024 11:1 0 AM EDT NOVA GLUCOSE POC Routine 10/13/2024 5:33 AM EDT NOVA GLUCOSE POC Routine 10/12/2024 8:41 PM EDT NOVA GLUCOSE POC Routine 10/12/2024 3:53 PM EDT NOVA GLUCOSE POC Routine 10/12/2024 11:2 8 AM EDT NOVA GLUCOSE POC Routine 10/12/2024 7:37 AM EDT NOVA GLUCOSE POC Routine 10/11/2024 8:58 PM EDT NOVA GLUCOSE POC Routine 10/11/2024 6:12 PM EDT NOVA GLUCOSE POC Routine 10/11/2024 3:48 PM EDT [facility] DIFFERENTIAL, BODY FLUID Routine 10/11/2024 2:33 PM EDT Infection of prosthetic knee joint (HCC) CYTOLOGY ([facility]) AP Routine 10/11/2024 2:33 PM EDT Infection of prosthetic knee joint (HCC) BODY FLUID CELL COUNT WITH DIFFERENTIAL Routine 10/11/2024 2:33 PM EDT Infection of prosthetic knee joint (HCC) AFB CULTURE AND STAIN Routine 10/11/2024 2:31 PM EDT Infection of prosthetic knee joint (HCC) AFB CULTURE AND STAIN Routine 10/11/2024 2:31 PM EDT Infection of prosthetic knee joint (HCC) FUNGUS CULTURE W/ERUM OR ALMA INK Routine 10/11/2024 2:31 PM EDT Infection of prosthetic knee joint (HCC) FUNGUS CULTURE W/ERUM OR ALMA INK Routine 10/11/2024 2:31 PM EDT Infection of prosthetic knee joint (HCC) ANAEROBIC CULTURE, EXTENDED (P.ACNES) Routine 10/11/2024 2:31 PM EDT Infection of prosthetic knee joint (HCC) ANAEROBIC CULTURE, EXTENDED (P.ACNES) Routine 10/11/2024 2:31 PM EDT Infection of prosthetic knee joint (HCC) TISSUE CULTURE+ STAIN Routine 10/11/2024 2:31 PM EDT Infection of prosthetic knee joint (HCC) TISSUE CULTURE+ STAIN Routine 10/11/2024 2:31 PM EDT Infection of prosthetic knee joint (HCC) SPIN/CONCENTRATION CHARGE Routine 10/11/2024 2:31 PM EDT Infection of prosthetic knee joint (HCC) SPIN/CONCENTRATION CHARGE Routine 10/11/2024 2:31 PM EDT Infection of prosthetic knee joint (HCC) AFB CULTURE AND STAIN Routine 10/11/2024 2:30 PM EDT Infection of prosthetic knee joint (HCC) FUNGUS CULTURE W/ERUM OR ALMA INK Routine 10/11/2024 2:30 PM EDT Infection of prosthetic knee joint (HCC) ANAEROBIC CULTURE, EXTENDED (P.ACNES) Routine 10/11/2024 2:30 PM EDT Infection of prosthetic knee joint (HCC) TISSUE CULTURE+ STAIN Routine 10/11/2024 2:30 PM EDT Infection of prosthetic knee joint (HCC) IRRIGATION AND DEBRIDEMENT, ABSCESS, LOWER EXTREMITY 10/11/2024 1:53 PM EDT Infection of prosthetic knee joint (HCC) NOVA GLUCOSE POC Routine 10/11/2024 11:5 9 AM EDT NOVA GLUCOSE POC Routine 10/11/2024 11:1 0 AM EDT BLOOD CULTURE STAT 10/11/2024 6:28 AM EDT CBC HEMOGRAM (SJ-BKR) Routine 10/11/2024 6:21 AM EDT CREATINE KINASE (CK) Add-On 10/11/2024 6:21 AM EDT BASIC METABOLIC PANEL Routine 10/11/2024 6:21 AM EDT NOVA GLUCOSE POC Routine 10/11/2024 5:59 AM EDT NOVA GLUCOSE POC Routine 10/10/2024 8:57 PM EDT PT/INR, PTT Routine 10/10/2024 7:06 PM EDT PROCALCITONIN Routine 10/10/2024 7:06 PM EDT PROBNP Routine 10/10/2024 7:06 PM EDT C-REACTIVE PROTEIN Routine 10/10/2024 7: 06 PM EDT MAGNESIUM Routine 10/10/2024 7:06 PM EDT COMPREHENSIVE METABOLIC PANEL Routine 10/10/2024 7:06 PM EDT NOVA GLUCOSE POC Routine 10/10/2024 5:41 PM EDT documented in this encounter Results * (ABNORMAL) Glucose, Nova Meter (10/14/2024 11:28 AM EDT) [facility] POC-GLUCOSE 182(H) 70 - 110 mg/dL 10/14/2024 11:29 AM EDT [facility] Comment: In the event of poor peripheral blood flow, venous or arterial blood should be used due to the potential of erroneous results. Notified Nurse [employer] Systems Specialist [phone] 10/14/2024 11:29 AM EDT [facility] Blood WHOLE BLOOD / Unknown 10/14/2024 11:28 AM EDT 10/14/2024 11:29 AM EDT Narrative [facility] - 10/14/2024 11:29 AM EDT Systems Specialist ID is - [id number] Brigitte Boone MD POINT OF CARE TEST ORDERABLES Final Result Performing Organization Address City/[facility] Co de Phone Number [facility] [address] [place] [address], [facility] [phone] * (ABNORMAL) Glucose, Nova Meter (10/14/2024 5:32 AM EDT) POC-GLUCOSE 185(H) 70 - 110 mg/dL 10/14/2024 5:33 AM EDT [facility] Comment: In the event of poor peripheral blood flow, venous or arterial blood should be used due to the potential of erroneous results. Notified Nurse [employer] Specialist [phone] 10/14/2024 5:33 AM EDT [facility] Blood WHOLE BLOOD / Unknown 10/14/2024 5:32 AM EDT 10/14/2024 5:33 AM EDT Narrative [facility] - 10/14/2024 5:33 AM EDT Systems Specialist ID is - [id number] us Brigitte Boone MD POINT OF CARE TEST ORDERABLES Final Result [facility] [address] [place] [address], [facility] [phone] * (ABNORMAL) Basic Metabolic Panel (10/14/2024 4:07 AM EDT) Pathologist [facility] Sodium 136 136 - 146 meq/L 10/14/2024 4:25 AM EDT [facility] Potassium 4.1 3.5 - 5.1 meq/L 10/14/2024 4:25 AM EDT [facility] Chloride 102 102 - 112 meq/L 10/14/2024 4:25 AM EDT [facility] CO2 32 21 - 32 meq/L 10/14/2024 4:25 AM EDT [facility] Anion Gap 6(L) 9 - 20 10/14/2024 4:25 AM EDT [facility] BUN 35(H) 7 - 22 mg/dL 10/14/2024 4:25 AM EDT [facility] Creatinine 1.29(H) 0.55 - 1.02 mg/dL 10/14/2024 4:25 AM EDT [facility] BUN/Creatinine 27(H) 8 - 20 10/14/2024 4:25 AM EDT [facility] Glucose 211(H) 74 - 106 mg/dL 10/14/2024 4:25 AM EDT [facility] Calcium 8.4(L) 8.5 - 10.1 mg/dL 10/14/2024 4:25 AM EDT [facility] Osmolality Calc 286.2 mOsm/kg 4:25 AM EDT [facility] eGFR (mL/min/1.73m2) 41(L) >=60 mL/min/1.7 3m2 10/14/2024 4:25 AM EDT [facility] Comment:eGFR of <60 suggests chronic kidney disease if found over a 3 month period of time. eGFR <15 indicates renal failure. Blood Venipuncture / Unknown 10/14/2024 4:07 AM EDT 10/14/2024 4:07 AM EDT us Brigitte Boone MD LAB BLOOD ORDERABLES Final Re sult [facility] [address] [place] [address], [facility] [phone] * (ABNORMAL) CBC with Automated Diff (10/14/2024 4:07 AM EDT) WBC 8.3 3.9 - 10.0 K/ L 10/14/2024 4:20 AM EDT [facility] RBC 4.23 3.93 - 6.08 M/ L 10/14/2024 4:20 AM EDT [facility] Hemoglobin 12.7 11.2 - 15.7 GM/DL 10/14/2024 4:20 AM EDT [facility] Hematocrit 38.6 34.1 - 44.9 % 10/14/2024 4:20 AM EDT [facility] MCV 91 79 - 95 fL 10/14/2024 4:20 AM EDT [facility] MCH 30.0 25.6 - 32.2 pg 10/14/2024 4:20 AM EDT [facility] MCHC 32.9 32.2 - 36.5 GM/DL 10/14/2024 4:20 AM EDT [facility] RDW 12.8 11.6 - 14.4 % 10/14/2024 4:20 AM EDT [facility] Platelets 250 163 - 369 K/CU MM 10/14/2024 4:20 AM EDT [facility] MPV 9.3(L) 9.4 - 12.4 fL 10/14/2024 4:20 AM EDT [facility] % Neutros 66 34 - 71 % 10/14/2024 4:20 AM EDT [facility] % Lymphs 21 19 - 53 % 10/14/2024 4:20 AM EDT [facility] % Monos 11 4 - 13 % 10/14/2024 4:20 AM EDT [facility] % Eos 1 1 - 7 % 10/14/2024 4:20 AM EDT [facility] % Baso 0 0 - 1 % 10/14/2024 4:20 AM EDT [facility] # Neutros 5.42 1.56 - 6.13 K/ L 10/14/2024 4:20 AM EDT [facility] # Lymphs 1.76 1.18 - 3.74 K/ L 10/14/2024 4:20 AM EDT [facility] # Monos 0.92(H) 0.24 - 0.82 K/ L 10/14/2024 4:20 AM EDT [facility] # Eos 0.11 0.04 - 0.54 K/ L 10/14/2024 4:20 AM EDT [facility] # Baso 0.02 0.01 - 0.08 K/ L 10/14/2024 4:20 AM EDT [facility] Immature Granulocytes-Re lative 0.20 0.00 - 0.60 % 10/14/2024 4:20 AM EDT [facility] # IG 0.02 0.00 - 0.05 K/uL 10/14/2024 4:20 AM EDT [facility] Blood Venipuncture / Unknown 10/14/2024 4:07 AM EDT 10/14/2024 4:07 AM EDT Narrative [facility] - 10/14/2024 4:20 AM EDT When CBC w/ Auto Diff [...] Flag noted Atypical Lymph flag noted us Brigitte Boone MD LAB BLOOD ORDERABLES Final Re sult [facility] [address] [phone] * (ABNORMAL) Glucose, Nova Meter (10/13/2024 8:14 PM EDT) POC-GLUCOSE 234(H) 70 - 110 mg/dL 10/13/2024 8:15 PM EDT [facility] Comment: In the event of poor peripheral blood flow, venous or arterial blood should be used due to the potential of erroneous results. Notified Nurse [employer] Specialist [phone] 10/13/2024 8:15 PM EDT [facility] Blood WHOLE BLOOD / Unknown 10/13/2024 8:14 PM EDT 10/13/2024 8:15 PM EDT Narrative [facility] - 10/13/2024 8:15 PM EDT Systems Specialist ID is - [id number] Brigitte Boone MD POINT OF CARE TEST ORDERABLES Final Result Performing Organization Address [facility]/ZIP Co de Phone Number [facility] [address] [phone] * (ABNORMAL) Glucose, Nova Meter (10/13/2024 3:47 PM EDT) POC-GLUCOSE 197(H) 70 - 110 mg/dL 10/13/2024 3:49 PM EDT [facility] Comment: In the event of poor peripheral blood flow, venous or arterial blood should be used due to the potential of erroneous results. Notified Nurse [employer] Specialist [phone] 10/13/2024 3:49 PM EDT [facility] Blood WHOLE BLOOD / Unknown 10/13/2024 3:47 PM EDT 10/13/2024 3:49 PM EDT Narrative [facility] - 10/13/2024 3:49 PM EDT Systems Specialist ID is - [id number] us Brigitte Boone MD POINT OF CARE TEST ORDERABLES Final Result Performing Organization Address [facility] Co de Phone Number [facility] [address] [place] [address], [facility] [phone] * (ABNORMAL) Glucose, Nova Meter (10/13/2024 11:10 AM EDT) POC-GLUCOSE 275(H) 70 - 110 mg/dL 10/13/2024 11:12 AM EDT [facility] Comment: In the event of poor peripheral blood flow, venous or arterial blood should be used due to the potential of erroneous results. Notified Nurse [employer] Specialist [phone] 10/13/2024 11:12 AM EDT [facility] Blood WHOLE BLOOD / Unknown 10/13/2024 11:10 AM EDT 10/13/2024 11:12 AM EDT Narrative [facility] - 10/13/2024 11:12 AM EDT Systems Specialist ID is - [id number] Brigitte Boone MD POINT OF CARE TEST ORDERABLES Final Result Performing Organization Address [facility]/ZIP Co de Phone Number [facility] [address] [place] [address], [facility] [phone] * (ABNORMAL) Glucose, Nova Meter (10/13/2024 5:33 AM EDT) POC-GLUCOSE 248(H) 70 - 110 mg/dL 10/13/2024 5:34 AM EDT [facility] Comment: In the event of poor peripheral blood flow, venous or arterial blood should be used due to the potential of erroneous results. Notified Nurse RBV Systems Specialist [phone] 10/13/2024 5:34 AM EDT [facility] Blood WHOLE BLOOD / Unknown 10/13/2024 5:33 AM EDT 10/13/2024 5:34 AM EDT Narrative [facility] - 10/13/2024 5:34 AM EDT Systems Specialist ID is - [id number] us Brigitte Boone MD POINT OF CARE TEST ORDERABLES Final Result Performing Organization Address [facility] Co de Phone Number [facility] [address] [place] [address], [facility] [phone] * (ABNORMAL) Glucose, Nova Meter (10/12/2024 8:41 PM EDT) POC-GLUCOSE 277(H) 70 - 110 mg/dL 10/12/2024 8:42 PM EDT [facility] Comment: In the event of poor peripheral blood flow, venous or arterial blood should be used due to the potential of erroneous results. Notified Nurse [employer]BV Systems Specialist [id number] 10/12/2024 8:42 PM EDT [facility] Blood WHOLE BLOOD / Unknown 10/12/2024 8:41 PM EDT 10/12/2024 8:42 PM EDT Narrative [facility] - 10/12/2024 8:42 PM EDT Systems Specialist ID is - [id number] Brigitte Boone MD POINT OF CARE TEST ORDERABLES Final Result Performing Organization Address [facility]/ZIP Co de Phone Number [facility] [address] [phone] * (ABNORMAL) Glucose, Nova Meter (10/12/2024 3:53 PM EDT) POC-GLUCOSE 291(H) 70 - 110 mg/dL 10/12/2024 3:54 PM EDT [facility] Comment: In the event of poor peripheral blood flow, venous or arterial blood should be used due to the potential of erroneous results. Notified Nurse RBV Systems Specialist [id number] 10/12/2024 3:54 PM EDT [facility] Blood WHOLE BLOOD / Unknown 10/12/2024 3:53 PM EDT 10/12/2024 3:54 PM EDT Narrative [facility] - 10/12/2024 3:54 PM EDT Systems Specialist ID is - [id number] us Brigitte Boone MD POINT OF CARE TEST ORDERABLES Final Result Performing Organization Address [facility] Co de Phone Number [facility] [address] [place] [address], [facility] [phone] * (ABNORMAL) Glucose, Nova Meter (10/12/2024 11:28 AM EDT) POC-GLUCOSE 343(H) 70 - 110 mg/dL 10/12/2024 11:29 AM EDT [facility] Comment: In the event of poor peripheral blood flow, venous or arterial blood should be used due to the potential of erroneous results. Notified Nurse RBV Systems Specialist [id number] 10/12/2024 11:29 AM EDT [facility] Blood WHOLE BLOOD / Unknown 10/12/2024 11:28 AM EDT 10/12/2024 11:29 AM EDT Narrative [facility] - 10/12/2024 11:29 AM EDT Systems Specialist ID is - [id number] Brigitte Boone MD POINT OF CARE TEST ORDERABLES Final Result Performing Organization Address [facility]/ZIP Co de Phone Number [facility] [address] [phone] * (ABNORMAL) Glucose, Nova Meter (10/12/2024 7:37 AM EDT) POC-GLUCOSE 277(H) 70 - 110 mg/dL 10/12/2024 7:39 AM EDT [facility] Comment: In the event of poor peripheral blood flow, venous or arterial blood should be used due to the potential of erroneous results. Received Meds Systems Specialist [id number] 10/12/2024 7:39 AM EDT [facility] Blood WHOLE BLOOD / Unknown 10/12/2024 7:37 AM EDT 10/12/2024 7:39 AM EDT Narrative [facility] - 10/12/2024 7:39 AM EDT Systems Specialist ID is - [id number] us Brigitte Boone MD POINT OF CARE TEST ORDERABLES Final Result Performing Organization Address [facility] Co de Phone Number [facility] [address] [place] [address], [facility] [phone] * (ABNORMAL) Glucose, Nova Meter (10/11/2024 8:58 PM EDT) POC-GLUCOSE 265(H) 70 - 110 mg/dL 10/11/2024 8:59 PM EDT [facility] Comment: In the event of poor peripheral blood flow, venous or arterial blood should be used due to the potential of erroneous results. Notified Nurse RBV Systems Specialist [id number] 10/11/2024 8:59 PM EDT [facility] Blood WHOLE BLOOD / Unknown 10/11/2024 8:58 PM EDT 10/11/2024 8:59 PM EDT Narrative [facility] - 10/11/2024 8:59 PM EDT Systems Specialist ID is - [id number] Brigitte Boone MD POINT OF CARE TEST ORDERABLES Final Result Performing Organization Address [facility]/ZIP Co de Phone Number [facility] [address] [phone] * (ABNORMAL) Glucose, Nova Meter (10/11/2024 6:12 PM EDT) POC-GLUCOSE 273(H) 70 - 110 mg/dL 10/11/2024 6:14 PM EDT [facility] Comment: In the event of poor peripheral blood flow, venous or arterial blood should be used due to the potential of erroneous results. Notified Nurse RBV Systems Specialist [phone] 10/11/2024 6:14 PM EDT [facility] Blood WHOLE BLOOD / Unknown 10/11/2024 6:12 PM EDT 10/11/2024 6:14 PM EDT Narrative [facility] - 10/11/2024 6:14 PM EDT Systems Specialist ID is - [id number] us Brigitte Boone MD POINT OF CARE TEST ORDERABLES Final Result Performing Organization Address [facility] Co de Phone Number [facility] [address] [phone] * (ABNORMAL) Glucose, Nova Meter (10/11/2024 3:48 PM EDT) POC-GLUCOSE 138(H) 70 - 110 mg/dL 10/11/2024 3:49 PM EDT [facility] Comment:In the event of poor peripheral blood flow, venous or arterial blood should be used due to the potential of erroneous results. Systems Specialist [phone] 10/11/2024 3:49 PM EDT [facility] Blood WHOLE BLOOD / Unknown 10/11/2024 3:48 PM EDT 10/11/2024 3:49 PM EDT Narrative [facility] - 10/11/2024 3:49 PM EDT Systems Specialist ID is - [id number] Brigitte Boone MD POINT OF CARE TEST ORDERABLES Final Result Performing Organization Address [facility] Co de Phone Number [facility] [address] [place] [address], [facility] [phone] * DIFFERENTIAL, BODY FLUID (10/11/2024 2:33 PM EDT) Neutrophils Fluid 67 0 - 25 % 10/11/2024 3:15 PM EDT [facility] Lymphocytes Fluid 10 % 10/11/2024 3:15 PM EDT [facility] Monocytes Fluid 14 0 - 65 % 3:15 PM EDT [facility] EOSINOPHILS 9 10/11/2024 3:15 PM EDT [facility] Synovial Fluid BODY FLUID / Unknown 10/11/2024 2:33 PM EDT 10/11/2024 2:39 PM EDT Wilfrido Stafford MD BODY FLUIDS AND STOOLS ORDERABLE S Final Result Performing Organization Address [facility] Co de Phone Number [facility] [address] [phone] * SJ Non-Ventilation Worker Cytology (10/11/2024 2:33 PM EDT) AP RESULT See Note: [facility] Comment: [facility] [address] [place] [address] or [phone] Rusty Ferris M.D., [employer]umbing [employer] Heating [employer] PATIENT NAME LABORATORY NO. [address]. [id number] AGE SEX SSN CLIENT REF # [facility] 84 [id number] [address] DU[address]TE[address] John ATTENDING MRodneyDRodney. [place] [address] WILFRIDO STAFFORD DATE COLLECTED DATE RECEIVED DATE REPORTED 10/11/2024 10/11/2024 10/12/2024 DIAGNOSIS: SYNOVIAL JOINT FLUID, RIGHT KNEE: Negative for malignant cells. MICROSCOPIC DESCRIPTION: Acute and chronic inflammation are present in a background of amorphous debris. Professional interpretation rendered by Efrain Ferguson M.D., Geraldine at [employer] [facility], [address] [place] [address]. 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 Cell block has been examined. REGISTER OF WILLS: NAHOMI MARTINEZ (ASCP) REVIEWED, DIAGNOSED AND ELECTRONICALLY SIGNED BY: Efrain Ferguson M.D., Shannon.YenP. CPT CODES: 09178, 74409 Synovial Fluid BODY FLUID / Unknown 10/11/2024 2:33 PM EDT Wilfrido Stafford MD PATHOLOGY/CYTOLOGY ORDERABLES [facility] Result [facility] [address] [place] [address] * (ABNORMAL) Body fluid cell count with differential (10/11/2024 2:33 PM EDT) Appearance Bloody(A) Clear 10/11/2024 3:15 PM EDT [facility] Color Red 10/11/2024 3:15 PM EDT [facility] BODY FLUID TYPE Synovial 3:15 PM EDT [facility] Auto WBC/Nucleated Cells BF 1,861 /uL 10/11/2024 3:15 PM EDT [facility] Comment: Please refer to specific WBC/Nucleated Cell Count Body Fluid reference ranges below: For Pleural: 0-1000 Peritoneal: 0-1000 Pericardial:0-1000 Synovial: 0-200 Auto RBC BF 80,000 /uL 10/11/2024 3:15 PM EDT [facility] Comment: Please refer to specific RBC Cell Count Body Fluid reference ranges below: Pleural: 0-10,000 Peritoneal: 0-10,000 Pericardial:0-10,000 Synovial:0-30 Synovial Fluid BODY FLUID / Unknown 10/11/2024 2:33 PM EDT 10/11/2024 2:39 PM EDT Narrative [facility] - 10/11/2024 3:15 PM EDT There is normally no readily obtainable pleural, peritoneal and pericardial fluid, hence normal elements for these potential fluids are not defined. us Wilfrido Stafford MD BODY FLUIDS AND STOOLS ORDERABLE S Final Result [facility] [address] [place] [address], [facility] [phone] * SPIN/CONCENTRATION CHARGE (10/11/2024 2:31 PM EDT) Concentration charged Done 10/23/2024 10:56 AM EDT [facility] Tissue STRUCTURE OF RIGHT KNEE REGION / Unknown 10/11/2024 2:31 PM EDT 10/11/2024 3:04 PM EDT us Wilfrido Stafford MD MICROBIOLOGY - GENERAL ORDERABLE S Final Result Performing Organization Address City/[facility]/ZIP Co de Phone Number [facility] [address] [place] [address], [facility] [phone] * SPIN/CONCENTRATION CHARGE (10/11/2024 2:31 PM EDT) Concentration charged Done 10/12/2024 2:17 PM EDT [facility] Tissue STRUCTURE OF RIGHT KNEE REGION / Unknown 10/11/2024 2:31 PM EDT 10/11/2024 3:05 PM EDT us Wilfrido Stafford MD MICROBIOLOGY - GENERAL ORDERABLE S Final Result Performing Organization Address City/[facility]/ZIP Co de Phone Number [facility] [address] [place] [address], [facility] [phone] * AFB Culture And Stain (10/11/2024 2:31 PM EDT) Result No Acid Fast Bacilli isolated at 6 weeks 12/04/2024 2:06 PM EDT [facility] AFB Smear No acid fast bacilli seen 12/04/2024 2:06 PM EDT [facility] Tissue STRUCTURE OF RIGHT KNEE REGION / Unknown 10/11/2024 2:31 PM EDT 10/11/2024 3:04 PM EDT [facility] - 12/04/2024 2:06 PM EDT Specimen Description: Right Knee Synovium #3 us Wilfrido Stafford MD MICROBIOLOGY - GENERAL ORDERABLE S Final Result [facility] [address] [phone] * AFB Culture And Stain (10/11/2024 2:31 PM EDT) Result No Acid Fast Bacilli isolated at 6 weeks 11/22/2024 4:00 PM EDT [facility] AFB Smear No acid fast bacilli seen 11/22/2024 4:00 PM EDT [facility] Tissue STRUCTURE OF RIGHT KNEE REGION / Unknown 10/11/2024 2:31 PM EDT 10/11/2024 3:05 PM EDT [facility] - 11/22/2024 4:00 PM EDT Specimen Description: Right Knee Synovium #2 us Wilfrido Stafford MD MICROBIOLOGY - GENERAL ORDERABLE S Final Result [facility] [address] [phone] * Fungus Culture W/ERUM Or Alma Ink (10/11/2024 2:31 PM EDT) Result No fungus isolated at 6 weeks. 11/22/2024 4:00 PM EDT [facility] ERUM Prep No fungal elements seen 11/22/2024 4:00 PM EDT [facility] Tissue STRUCTURE OF RIGHT KNEE REGION / Unknown 10/11/2024 2:31 PM EDT 10/11/2024 3:04 PM EDT Narrative [facility] - 11/22/2024 4:00 PM EDT Specimen Description: Right Knee Synovium #3 us Wilfrido Stafford MD MICROBIOLOGY - GENERAL ORDERABLE S Final Result [facility] [address] [phone] * Fungus Culture W/ERUM Or Alma Ink (10/11/2024 2:31 PM EDT) Result No fungus isolated at 6 weeks. 11/22/2024 4:00 PM EDT [facility] ERUM Prep No fungal elements seen 11/22/2024 4:00 PM EDT [facility] Tissue STRUCTURE OF RIGHT KNEE REGION / Unknown 10/11/2024 2:31 PM EDT 10/11/2024 3:03 PM EDT Narrative [facility] - 11/22/2024 4:00 PM EDT Specimen Description: Right Knee Synovium #2 us Wilfrido Stafford MD MICROBIOLOGY - GENERAL ORDERABLE S Final Result [facility] [address] [phone] * (ABNORMAL) Anaerobic Culture, Extended (P.acnes) (10/11/2024 2:31 PM EDT) Result Anaerococcus vaginalis(A) 10/25/2024 7:00 AM EDT [facility] Result Peptoniphilus harei(A) 10/25/2024 7:00 AM EDT [facility] Result Porphyromonas somerae(A) 10/25/2024 7:00 AM EDT [facility] Result Anaerobic gram positive cocci(A) 10/25/2024 7:00 AM EDT [facility] Comment:* - Peptoniphilus sp ecies Tissue STRUCTURE OF RIGHT KNEE REGION / Unknown 10/11/2024 2:31 PM EDT 10/11/2024 3:03 PM EDT [facility] - 10/25/2024 7:00 AM EDT Specimen Description: Right Knee Synovium #3 For Peptoniphilus species ID This test was developed and its performance characteristics determined by [facility]. It has not been cleared by the [place] Food and Drug Administration This result was determined by [employer]. This test is used for clinical purposes. It should not be reguarded as investigational or for research Mixed growth suggestive of colonization or indigenous alvaro. Inappropriate for full workup us Wilfrido Stafford MD MICROBIOLOGY - GENERAL ORDERABLE S Final Result Performing Organization Address [facility] Co de Phone Number [facility] [address] [phone] * (ABNORMAL) Anaerobic Culture, Extended (P.acnes) (10/11/2024 2:31 PM EDT) Result Peptoniphilus harei(A) 10/24/2024 7:06 AM EDT [facility] Result Porphyromonas somerae(A) 10/24/2024 7:06 AM EDT [facility] Result Cutibacterium acnes(A) 10/24/2024 7:06 AM EDT [facility] Tissue STRUCTURE OF RIGHT KNEE REGION / Unknown 10/11/2024 2:31 PM EDT 10/11/2024 3:03 PM EDT Narrative [facility] - 10/24/2024 7:06 AM EDT Specimen Description: Right Knee Synovium #2 Mixed growth suggestive of colonization or indigenous alvaro. Inappropriate for full workup us Wilfrido Stafford MD MICROBIOLOGY - GENERAL ORDERABLE S Final Result Performing Organization Address [facility] Co de Phone Number [facility] [address] [phone] * (ABNORMAL) Tissue Culture+ Stain (10/11/2024 2:31 PM EDT) Result Moderate Growth Methicillin resistant Staphylococcus aureus(A) 10/15/2024 11:51 AM EDT [facility] Comment: Resistant organism requires isolation protocol. For susceptibility see previous report - Accession - [id number] Result Light Growth Haemophilus parainfluenzae(A) 10/15/2024 11:51 AM EDT [facility] Comment:Beta-lactamase negat brooke Gram Stain Result Few gram positive cocci in pairs and clusters 10/15/2024 11:51 AM EDT [facility] Gram Stain Result Few WBCs 025 11:51 AM EDT [facility] Gram Stain Result Few epithelial cells 10/15/2024 11:51 AM EDT [facility] Tissue STRUCTURE OF RIGHT KNEE REGION / Unknown 10/11/2024 2:31 PM EDT 10/11/2024 3:03 PM EDT Narrative [facility] - 10/15/2024 11:51 AM EDT Specimen Description: Right Knee Synovium #3 us Wilfrido Stafford MD MICROBIOLOGY - GENERAL ORDERABLE S Final Result [facility] [address] [phone] * (ABNORMAL) Tissue Culture+ Stain (10/11/2024 2:31 PM EDT) Result Light Growth Methicillin resistant Staphylococcus aureus(A) 10/14/2024 8:27 AM EDT [facility] Comment: Resistant organism requires isolation protocol. For susceptibility see previous report - Accession - [id number] Gram Stain Result Rare gram positive cocci in pairs and clusters 10/14/2024 8:27 AM EDT [facility] Gram Stain Result Rare WBCs 025 8:27 AM EDT [facility] Gram Stain Result Rare epithelial cells 10/14/2024 8:27 AM EDT [facility] Tissue STRUCTURE OF RIGHT KNEE REGION / Unknown 10/11/2024 2:31 PM EDT 10/11/2024 3:03 PM EDT [facility] - 10/14/2024 8:27 AM EDT Specimen Description: Right Knee Synovium #2 us Wilfrido Stafford MD MICROBIOLOGY - GENERAL ORDERABLE S Final Result [facility] [address] [phone] * AFB Culture And Stain (10/11/2024 2:30 PM EDT) Result No Acid Fast Bacilli isolated at 6 weeks 11/22/2024 4:00 PM EDT [facility] AFB Smear No acid fast bacilli seen 11/22/2024 4:00 PM EDT [facility] Tissue STRUCTURE OF RIGHT KNEE REGION / Unknown 10/11/2024 2:30 PM EDT 10/11/2024 3:04 PM EDT [facility] - 11/22/2024 4:00 PM EDT Specimen Description: Right Knee Synovium #1 us Wilfrido Stafford MD MICROBIOLOGY - GENERAL ORDERABLE S Final Result Performing Organization Address City/[facility]/ZIP Co de Phone Number [facility] [address] [phone] * Fungus Culture W/ERUM Or Alma Ink (10/11/2024 2:30 PM EDT) Result No fungus isolated at 6 weeks. 11/22/2024 4:00 PM EDT [facility] ERUM Prep No fungal elements seen 11/22/2024 4:00 PM EDT [facility] Tissue STRUCTURE OF RIGHT KNEE REGION / Unknown 10/11/2024 2:30 PM EDT 10/11/2024 3:03 PM EDT [facility] - 11/22/2024 4:00 PM EDT Specimen Description: Right Knee Synovium #1 us Wilfrido Stafford MD MICROBIOLOGY - GENERAL ORDERABLE S Final Result [facility] [address] [phone] * (ABNORMAL) Anaerobic Culture, Extended (P.acnes) (10/11/2024 2:30 PM EDT) Result Porphyromonas somerae(A) 10/25/2024 6:57 AM EDT [facility] Result Anaerobic gram positive cocci(A) 10/25/2024 6:57 AM EDT [facility] Comment:* - Peptoniphilus sp ecies Tissue STRUCTURE OF RIGHT KNEE REGION / Unknown 10/11/2024 2:30 PM EDT 10/11/2024 3:03 PM EDT Narrative [facility] - 10/25/2024 6:57 AM EDT Specimen Description: Right Knee Synovium #1 Peptoniphilus species This test was developed and its performance characteristics determined by [employer]. It has not been cleared by the [place] Food and Drug Administration This result was determined by [employer]. This test is used for clinical purposes. It should not be reguarded as investigational or for research Mixed growth suggestive of colonization or indigenous alvaro. Inappropriate for full workup Wilfrido Stafford MD MICROBIOLOGY - GENERAL ORDERABLE S Final Result Performing Organization Address [facility] Co de Phone Number [facility] [address] [phone] * (ABNORMAL) Tissue Culture+ Stain (10/11/2024 2:30 PM EDT) Result Light Growth Methicillin resistant Staphylococcus aureus(A) 10/14/2024 8:26 AM EDT [facility] Comment:Resistant organism r equires isolation protocol. Gram Stain Result No organisms seen 10/14/2024 8:26 AM EDT [facility] Gram Stain Result No cells seen 10/14/2024 8:26 AM EDT [facility] Tissue STRUCTURE OF RIGHT KNEE REGION / Unknown 10/11/2024 2:30 PM EDT 10/11/2024 3:03 PM EDT Narrative [facility] - 10/14/2024 8:26 AM EDT Specimen Description: Right Knee Synovium #1 Organism Antibiotic Method Susceptibility Methicillin resistant Staphylococcus aureus Amoxicillin + Clavulanate <=4/2: Resistant Methicillin resistant Staphylococcus aureus Ampicillin >8: Resistant Methicillin resistant Staphylococcus aureus Ampicillin + Sulbactam 16/8: Resistant Methicillin resistant Staphylococcus aureus Azithromycin >4: Resistant Methicillin resistant Staphylococcus aureus Cefazolin <=8: Resistant Methicillin resistant Staphylococcus aureus Cefepime 16: Resistant Methicillin resistant Staphylococcus aureus Cefotaxime <=8: Resistant Methicillin resistant Staphylococcus aureus Cefoxitin Screen >4: Positive Methicillin resistant Staphylococcus aureus Ceftaroline <=0.5: Susceptible Methicillin resistant Staphylococcus aureus Ceftriaxone 16: Resistant Methicillin resistant Staphylococcus aureus Ciprofloxacin <=1: Susceptible Methicillin resistant Staphylococcus aureus Clindamycin >4: Resistant Methicillin resistant Staphylococcus aureus Daptomycin 1: Susceptible Methicillin resistant Staphylococcus aureus Erythromycin >4: Resistant Methicillin resistant Staphylococcus aureus Gentamicin <=4: Susceptible Methicillin resistant Staphylococcus aureus Imipenem <=4: Resistant Methicillin resistant Staphylococcus aureus Levofloxacin <=1: Susceptible Methicillin resistant Staphylococcus aureus Meropenem <=2: Resistant Methicillin resistant Staphylococcus aureus Oxacillin >2: Resistant Methicillin resistant Staphylococcus aureus Penicillin >2: Resistant Methicillin resistant Staphylococcus aureus Rifampin <=1: Susceptible Methicillin resistant Staphylococcus aureus Tetracycline <=4: Susceptible Methicillin resistant Staphylococcus aureus Trimethoprim + Sulfamethoxazole <=0.5/9.5: Susceptible Methicillin resistant Staphylococcus aureus Vancomycin 1: Susceptible us Wilfrido Stafofrd MD MICROBIOLOGY - GENERAL ORDERABLE S Final Result Performing Organization Address [facility]/State/[facility] Co de Phone Number [facility] [address] [phone] * (ABNORMAL) Glucose, Nova Meter (10/11/2024 11:59 AM EDT) POC-GLUCOSE 119(H) 70 - 110 mg/dL 10/11/2024 12:01 PM EDT [facility] Comment: In the event of poor peripheral blood flow, venous or arterial blood should be used due to the potential of erroneous results. Notified Nurse [employer] Systems Specialist [phone] 10/11/2024 12:01 PM EDT [facility] Blood WHOLE BLOOD / Unknown 10/11/2024 11:59 AM EDT 10/11/2024 12:00 PM EDT Narrative [facility] - 10/11/2024 12:01 PM EDT Systems Specialist ID is - [id number] us Brigitte Boone MD POINT OF CARE TEST ORDERABLES Final Result Performing Organization Address City/[facility] Co de Phone Number [facility] [address] [place] [address], [facility] [phone] * (ABNORMAL) Glucose, Nova Meter (10/11/2024 11:10 AM EDT) POC-GLUCOSE 132(H) 70 - 110 mg/dL 10/11/2024 11:11 AM EDT [facility] Comment: In the event of poor peripheral blood flow, venous or arterial blood should be used due to the potential of erroneous results. Notified Nurse RBV Systems Specialist [phone] 10/11/2024 11:11 AM EDT [facility] Blood WHOLE BLOOD / Unknown 10/11/2024 11:10 AM EDT 10/11/2024 11:11 AM EDT Narrative [facility] - 10/11/2024 11:11 AM EDT Systems Specialist ID is - [id number] us Brigitte Boone MD POINT OF CARE TEST ORDERABLES Final Result Performing Organization Address City/[facility]/ZIP Co de Phone Number [facility] [address] [place] [address], [facility] [phone] * Blood Culture (10/11/2024 6:28 AM EDT) Result No growth in 5 days 10/16/2024 8:01 AM EDT [facility] Blood STRUCTURE OF RIGHT HAND / Unknown Venipuncture / Unknown 10/11/2024 6:28 AM EDT 10/11/2024 6:28 AM EDT Brigitte Boone MD MICROBIOLOGY - GENERAL ORDERA BLES Final Result [facility] [address] [phone] * Creatine Kinase (CK) (10/11/2024 6:21 AM EDT) Pathologist [facility] [place] Total CK 87 26 - 192 U/L 10/11/2024 8:35 AM EDT [facility] Blood Venipuncture / Unknown 10/11/2024 6:21 AM EDT 10/11/2024 6:28 AM EDT us David Fulton MD LAB BLOOD ORDERABLES Final Re sult Performing Organization Address [facility]/ZIP Co de Phone Number [facility] [address] [phone] * (ABNORMAL) Basic Metabolic Panel (10/11/2024 6:21 AM EDT) Pathologist [facility] [place] Sodium 137 136 - 146 meq/L 10/11/2024 6:48 AM EDT [facility] Potassium 3.8 3.5 - 5.1 meq/L 10/11/2024 6:48 AM EDT [facility] Chloride 101(L) 102 - 112 meq/L 10/11/2024 6:48 AM EDT [facility] CO2 33(H) 21 - 32 meq/L 10/11/2024 6:48 AM EDT [facility] Anion Gap 7(L) 9 - 20 10/11/2024 6:48 AM EDT [facility] BUN 26(H) 7 - 22 mg/dL 10/11/2024 6:48 AM EDT [facility] Creatinine 1.52(H) 0.55 - 1.02 mg/dL 10/11/2024 6:48 AM EDT [facility] BUN/Creatinine 17 8 - 20 10/11/2024 6:48 AM EDT [facility] Glucose 122(H) 74 - 106 mg/dL 10/11/2024 6:48 AM EDT [facility] Calcium 9.1 8.5 - 10.1 mg/dL 10/11/2024 6:48 AM EDT [facility] Osmolality Calc 279.9 mOsm/kg 6:48 AM EDT [facility] eGFR (mL/min/1.73m2) 33(L) >=60 mL/min/1.7 3m2 10/11/2024 6:48 AM EDT [facility] Comment:eGFR of <60 suggests chronic kidney disease if found over a 3 month period of time. eGFR <15 indicates renal failure. Blood Venipuncture / Unknown 10/11/2024 6:21 AM EDT 10/11/2024 6:28 AM EDT us Brigitte Boone MD LAB BLOOD ORDERABLES Final Re sult [facility] [address] [place] [address], [facility] [phone] * (ABNORMAL) CBC - Hemogram (SJ-BKR) (10/11/2024 6:21 AM EDT) WBC 6.9 3.9 - 10.0 K/ L 10/11/2024 6:36 AM EDT [facility] RBC 4.62 3.93 - 6.08 M/ L 10/11/2024 6:36 AM EDT [facility] Hemoglobin 13.9 11.2 - 15.7 GM/DL 10/11/2024 6:36 AM EDT [facility] Hematocrit 42.0 34.1 - 44.9 % 10/11/2024 6:36 AM EDT [facility] MCV 91 79 - 95 fL 10/11/2024 6:36 AM EDT [facility] MCH 30.1 25.6 - 32.2 pg 10/11/2024 6:36 AM EDT [facility] MCHC 33.1 32.2 - 36.5 GM/DL 10/11/2024 6:36 AM EDT [facility] RDW 13.1 11.6 - 14.4 % 10/11/2024 6:36 AM EDT [facility] Platelets 263 163 - 369 K/CU MM 10/11/2024 6:36 AM EDT [facility] MPV 9.3(L) 9.4 - 12.4 fL 10/11/2024 6:36 AM EDT [facility] nRBC 0(L) 1 - 5 /100 WBC 10/11/2024 6:36 AM EDT [facility] Blood Venipuncture / Unknown 10/11/2024 6:21 AM EDT 10/11/2024 6:28 AM EDT Brigitte Boone MD LAB BLOOD ORDERABLES Final Re sult Performing Organization Address [facility] Co de Phone Number [facility] [address] [place] [address], [facility] [phone] * (ABNORMAL) Glucose, Nova Meter (10/11/2024 5:59 AM EDT) POC-GLUCOSE 132(H) 70 - 110 mg/dL 10/11/2024 6:02 AM EDT [facility] Comment: In the event of poor peripheral blood flow, venous or arterial blood should be used due to the potential of erroneous results. Notified Nurse RBV Systems Specialist [phone] 10/11/2024 6:02 AM EDT [facility] Blood WHOLE BLOOD / Unknown 10/11/2024 5:59 AM EDT 10/11/2024 6:02 AM EDT Narrative [facility] - 10/11/2024 6:02 AM EDT Systems Specialist ID is - [id number] us Brigitte Boone MD POINT OF CARE TEST ORDERABLES Final Result Performing Organization Address City/[facility]/ZIP Co de Phone Number [facility] [address] [place] [address], [facility] [phone] * (ABNORMAL) Glucose, Nova Meter (10/10/2024 8:57 PM EDT) POC-GLUCOSE 240(H) 70 - 110 mg/dL 10/10/2024 8:58 PM EDT [facility] Comment: In the event of poor peripheral blood flow, venous or arterial blood should be used due to the potential of erroneous results. Notified Nurse RBV Systems Specialist [phone] 10/10/2024 8:58 PM EDT [facility] Blood WHOLE BLOOD / Unknown 10/10/2024 8:57 PM EDT 10/10/2024 8:58 PM EDT Narrative [facility] - 10/10/2024 8:58 PM EDT Systems Specialist ID is - [id number] Brigitte Boone MD POINT OF CARE TEST ORDERABLES Final Result Performing Organization Address City/[facility]/ZIP Co de Phone Number [facility] [address] [phone] * (ABNORMAL) PROBNP (10/10/2024 7:06 PM EDT) ProBNP (pg/mL) 815(H) 0 - 450 pg/mL 10/10/2024 7:28 PM EDT [facility] Blood Venipuncture / Unknown 10/10/2024 7:06 PM EDT 10/10/2024 7:06 PM EDT Brigitte Boone MD LAB BLOOD ORDERABLES Final Re sult Performing Organization Address City/[facility]/ZIP Co de Phone Number [facility] [address] [phone] * Magnesium (10/10/2024 7:06 PM EDT) Magnesium 1.7 1.5 - 2.4 mg/dL 10/10/2024 7:28 PM EDT [facility] Blood Venipuncture / Unknown 10/10/2024 7:06 PM EDT 10/10/2024 7:06 PM EDT Brigitte Boone MD LAB BLOOD ORDERABLES Final Re sult [facility] [address] [place] [address], [facility] [phone] * (ABNORMAL) Comprehensive metabolic panel (10/10/2024 7:06 PM EDT) Sodium 132(L) 136 - 146 meq/L 10/10/2024 7:28 PM EDT [facility] Potassium 3.9 3.5 - 5.1 meq/L 10/10/2024 7:28 PM EDT [facility] Chloride 96(L) 102 - 112 meq/L 10/10/2024 7:28 PM EDT [facility] CO2 32 21 - 32 meq/L 10/10/2024 7:28 PM EDT [facility] Calcium 9.0 8.5 - 10.1 mg/dL 10/10/2024 7:28 PM EDT [facility] Glucose 305(H) 74 - 106 mg/dL 10/10/2024 7:28 PM EDT [facility] BUN 23(H) 7 - 22 mg/dL 10/10/2024 7:28 PM EDT [facility] Creatinine 1.68(H) 0.55 - 1.02 mg/dL 10/10/2024 7:28 PM EDT [facility] BUN/Creatinine 14 8 - 20 10/10/2024 7:28 PM EDT [facility] Albumin 3.2(L) 3.4 - 5.0 g/dL 10/10/2024 7:28 PM EDT [facility] Alkaline Phosphatase 99 27 - 136 U/L 10/10/2024 7:28 PM EDT [facility] ALT 25 12 - 78 U/L 10/10/2024 7:28 PM EDT [facility] AST 27 5 - 37 U/L 10/10/2024 7:28 PM EDT [facility] Total Bilirubin 0.4 0.2 - 1.3 mg/dL 10/10/2024 7:28 PM EDT [facility] Protein, Total 7.1 6.4 - 8.2 gm/dL 10/10/2024 7:28 PM EDT [facility] Anion Gap 8(L) 9 - 20 10/10/2024 7:28 PM EDT [facility] A/G Ratio 0.8(L) 1.1 - 2.5 10/10/2024 7:28 PM EDT [facility] Globulin 3.9 1.5 - 4.5 g/dL 10/10/2024 7:28 PM EDT [facility] Osmolality Calc 279.7 mOsm/kg 7:28 PM EDT [facility] eGFR (mL/min/1.73m2) 30(L) >=60 mL/min/1.7 3m2 10/10/2024 7:28 PM EDT [facility] Comment:ESTIMATED GFR IS NOT ACCURATE CREATININE CLEARANCE IN PREDICTING GLOMERULAR FILTRATION RATE. ESTIMATED GFR IS NOT APPLICABLE FOR DIALYSIS PATIENTS. Blood Venipuncture / Unknown 10/10/2024 7:06 PM EDT 10/10/2024 7:06 PM EDT us Brigitte Boone MD LAB BLOOD ORDERABLES Final Re sult [facility] [address] [phone] * PT/INR, PTT (10/10/2024 7:06 PM EDT) aPTT 24.0 22.0 - 32.0 seconds 10/10/2024 7:23 PM EDT [facility] Protime 11.0 9.0 - 12.0 seconds 10/10/2024 7:23 PM EDT [facility] INR 1.01 0.80 - 1.10 10/10/2024 7:23 PM EDT [facility] Blood Venipuncture / Unknown 10/10/2024 7:06 PM EDT 10/10/2024 7:06 PM EDT us Brigitte Boone MD LAB BLOOD ORDERABLES Final Re sult [facility] [address] [place] [address], [facility] [phone] * C-Reactive Protein (10/10/2024 7:06 PM EDT) Pathologist [facility] [place] CRP 0.60 0.00 - 0.90 mg/dL 10/10/2024 7:28 PM EDT [facility] Blood Venipuncture / Unknown 10/10/2024 7:06 PM EDT 10/10/2024 7:06 PM EDT Brigitte Boone MD LAB BLOOD ORDERABLES Final Re sult Performing Organization Address [facility] Co de Phone Number [facility] [address] [place] [address], [facility] [phone] * Procalcitonin (10/10/2024 7:06 PM EDT) [facility] Procalcitonin <0.14 <=0.50 ng/mL 10/10/2024 7:38 PM EDT [facility] Comment: Sepsis comment <0.5 Antibiotics Discouraged >0.5 Antibiotics Encouraged *Assessing Sepsis Risk and Severity* >2.0 ng/mL High Risk for Progression to severe sepsis and/or septic shock 0.5-2.0 ng/mL Sepsis should be considered <0.5 ng/mL Low Risk for Progression to Severe and/or septic shock Lower Respiratory Tract Infection (LRT) <0.25 Antibiotics Discouraged >0.25 Antibiotics Encouraged *Procalcitonin results should be interpreted carefully in settings that are known to falsely elevate results such as renal failure, trauma, localized infections and de la torre. Blood Venipuncture / Unknown 10/10/2024 7:06 PM EDT 10/10/2024 7:06 PM EDT Brigitte Boone MD LAB BLOOD ORDERABLES Final Re sult Performing Organization Address [facility] Co de Phone Number [facility] [address] [place] [address], [facility] [phone] * (ABNORMAL) Glucose, Nova Meter (10/10/2024 5:41 PM EDT) POC-GLUCOSE 345(H) 70 - 110 mg/dL 10/10/2024 5:42 PM EDT [facility] Comment: In the event of poor peripheral blood flow, venous or arterial blood should be used due to the potential of erroneous results. 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) Post op infection Other postoperative infection documented in this encounter Admitting Diagnoses Diagnosis Joint infection (HCC) Unspecified infective arthritis, multiple sites Post op infection Other postoperative infection documented in this encounter Administered Medications Inactive Administered Medications - up to 3 most recent administrations Medication Order MAR Action Action Date Dose Rate Site acetaminophen (TYLENOL) tablet 1,000 mg 1,000 mg Every 6 hours PRN, oral, fever greater than or equal to 38C, Starting on Wed10/10/24 at 1646, Recommended maximum dose of acetaminophen is 4000 mg from all sources in 24 hours Given 10/14/2024 3:08 PM EDT 1,000 mg Given 10/13/2024 4:24 PM EDT 1,000 mg allopurinoL (ZYLOPRIM) tablet 100 mg 100 mg Daily, oral, First dose on Wed10/10/24 at 1930 Given 10/14/2024 10:40 AM EDT 100 mg Given 10/13/2024 10:04 AM EDT 100 mg Given 10/12/2024 8:42 AM EDT 100 mg cefTRIAXone (ROCEPHIN) IVPB 2 g in dextrose 5 % 50 mL (premix) 2 g Every 24 hours, intravenous, at 100 mL/hr, First dose on Wed10/11/24 at 2100, For 42 days, Please choose an indication: Bone/Joint Infection IVPB Started 10/12/2024 9:52 PM EDT 2 g 100 mL/hr IVPB Started 10/11/2024 9:54 PM EDT 2 g 100 mL/hr DAPTOmycin (CUBICIN) in sodium chloride 0.9% (NS) PF IV push 700 mg 700 mg Every 24 hours, intravenous, First dose on Wed10/11/24 at 2100, For 42 days, USE IS RESTRICTED TO ID TEAM * PHARMACIST ADJUST DOSE ACCORDING TO POLICY * Store in Refrigerator. Administer IV push slowly over 3 to 5 minutes. *Do NOT administer DAPTOmycin (CUBICIN) IV push to pediatric patients*., Please choose an indication: Bone/Joint Infection Given 10/13/2024 10:16 PM EDT 700 mg Given 10/12/2024 11:23 PM EDT 700 mg dextrose 50% (D50W) injection 25 g 25 g Every 15 min PRN, intravenous, low blood glucose (specify value in prn comments), less than 41 mg/dL or 41-69 mg/dL and unable to take PO, Starting on Wed10/10/24 at 1646, Repeat blood glucose every 15 minutes until blood glucose greater than 70 mg/dL. Call Provider if not resolved after 2 treatments Repeat BS in 1 hour, retime for 1 hour after blood sugar greater than 70 mg/dL If less than 41: Repeat Finger stick within 5 minutes with same machine Send serum glucose level: Do not wait on lab to treat fentaNYL PF (SUBLIMAZE) injection 25 mcg 25 mcg Every 5 min PRN, intravenous, moderate to severe pain (4-10), Starting on Wed10/11/24 at 1504, For 4 doses, Maximum cumulative dose 100 mcg without speaking to anesthesia provider, PACU Given 10/11/2024 3:50 PM EDT 25 mcg fluconazole (DIFLUCAN) tablet 200 mg 200 mg Once, oral, On Wed10/11/24 at 2300, For 1 dose, Caution: Recommend wearing gloves during administration. DO NOT BREAK/CRUSH/CHEW. Employees who are , trying to become , or should not handle this medication. Dispose of trace medication (including packaging) in the BLACK waste bin. Given 10/11/2024 10:42 PM EDT 200 mg glucagon injection 1 mg 1 mg Every 15 min PRN, intraMUSCULAR, low blood glucose (specify value in prn comments), For Patients without IV access and blood glucose 41-69 mg/dL AND unable to take PO OR Less than 41 mg/dL, Starting on Wed10/10/24 at 1646, Caution: glucagon . Roll patient on their side when administering to prevent aspiration. Call Provider if not resolved after 2 treatments Repeat BS in 1 hour, retime for 1 hour after blood sugar greater than 70 mg/dL glucose chew tab 16 g 16 g Every 15 min PRN, oral, low blood glucose (specify value in prn comments), 41-69 mg/dL, Starting on Wed10/10/24 at 1646, For Patients who can take oral AND [...] greater than 70 mg/dL hydrALAZINE (APRESOLINE) injection 5 mg 5 mg Every 6 hours PRN, intravenous, hypertension (sbp greater than 160), Starting on Wed10/10/24 at 1646, Hold if SBP < 100 mmHg, DBP < 50 mmHg, or patient is on pressor. Look-alike/Sound-alike medication insulin glargine-yfgn (SEMGLEE) solution 20 Units 20 Units Every Night, subcutaneous, First dose on Wed10/10/24 at 2100 Given 10/13/2024 9:54 PM EDT 20 Units Abdominal Tissue Given 10/12/2024 9:53 PM EDT 20 Units Ab dominal Tissue Given 10/11/2024 9:56 PM EDT 20 Units Le ft Arm insulin glargine-yfgn (SEMGLEE) solution 20 Units 20 Units Every morning, subcutaneous, First dose on Wed10/14/24 at 0600 Given 10/14/2024 6:22 AM EDT 20 Units Right Arm insulin lispro (HUMALOG, ADMELOG) injection 0-6 Units 0-6 Units 4 times daily (before meals and nightly), subcutaneous, First dose on Wed10/10/24 at 1730, If Blood Sugar is less than 180 between 2499-6170, DO NOT give corrective insulin unless otherwise ordered. Corrective Scale A 0 units for fingerstick blood glucose LESS than 140 mg/dL 1 unit subcutaneously once for fingerstick blood glucose [140] - [180] mg/dL 2 units subcutaneously once for fingerstick blood glucose [181] - [220] mg/dL 3 units subcutaneously once for fingerstick blood glucose [221] - [260] mg/dL 4 units subcutaneously once for fingerstick blood glucose [261] - [300] mg/dL 5 units subcutaneously once for fingerstick blood glucose [301] - [350] mg/dL 6 units subcutaneously once for fingerstick blood glucose [351] - [400] mg/dL Notify provider of glucose levels LESS than [70] and GREATER than [400] Given 10/14/2024 12:50 PM EDT 2 Units Abdominal Tissue Given 10/14/2024 6:34 AM EDT 2 Units Ri ght Arm Given 10/13/2024 9:54 PM EDT 3 Units Ab dominal Tissue miconazole (MICOTIN) 2 % powder topical, 2 times daily, First dose on Wed10/11/24 at 2300 Given 10/14/2024 10:41 AM EDT Given 10/13/2024 9:54 PM EDT Given 10/12/2024 9:52 PM EDT ondansetron (ZOFRAN) injection 4 mg 4 mg Every 8 hours PRN, intravenous, nausea, vomiting, Starting on Wed10/10/24 at 1646, Give IV if patient is unable to take orally. 1st line If inadequate response within 60 minutes, proceed to next-line agent for same PRN reason or contact provider if no further options ordered. For IV push, give over 2 - 5 minutes. ondansetron (ZOFRAN-ODT) disintegrating tablet 4 mg 4 mg Every 8 hours PRN, oral, nausea, vomiting, Starting on Wed10/10/24 at 1646, 1st line. If inadequate response within 60 minutes, proceed to next-line agent for same PRN reason or contact provider if no further options ordered. pregabalin (LYRICA) capsule 150 mg 150 mg Once, oral, On Wed10/11/24 at 1230, For 1 dose, Pre-op Given 10/11/2024 12:34 PM EDT 150 mg sodium chloride flush 10 mL 10 mL As needed, intravenous, line care, Starting on Wed10/10/24 at 1645, Every 8 hours and PRN to flush traMADoL (ULTRAM) tablet 50 mg 50 mg Every 6 hours PRN, oral, moderate pain (4-6), Starting on Wed10/10/24 at 1911 Given 10/14/2024 10:41 AM EDT 50 m g Given 10/13/2024 9:53 PM EDT 50 mg Given 10/13/2024 2:50 PM EDT 50 mg documented in this encounter Active and Recently Administered Medications Times are shown in EDT. Scheduled Medication Order 10/12/2024 10/13/2024 10/14/2024 allopurinoL (ZYLOPRIM) tablet 100 mg 100 mg Daily, oral, First dose on Wed10/10/24 at 1930 0842 (Given - Provider: Yelena Davenport RN) 1004 (Given - Provider: Carolina Jordan, MARIXA) 1040 (Given - Provider: Carolina Jordan, MARIXA) cefTRIAXone (ROCEPHIN) IVPB 2 g in dextrose 5 % 50 mL (premix) (CANCELED) 2 g Every 24 hours, intravenous, at 100 mL/hr, First dose on Wed10/11/24 at 2100, For 42 days, Please choose an indication: Bone/Joint Infection 2151 (IVPB Started - Provider: Lana Thomas RN)2152 (IVPB Stopped - Provider: Lana Thomas RN) DAPTOmycin (CUBICIN) in sodium chloride 0.9% (NS) PF IV push 700 mg 700 mg Every 24 hours, intravenous, First dose on Wed10/11/24 at 2100, For 42 days, USE IS RESTRICTED TO ID TEAM * PHARMACIST ADJUST DOSE ACCORDING TO POLICY * Store in Refrigerator. Administer IV push slowly over 3 to 5 minutes. *Do NOT administer DAPTOmycin (CUBICIN) IV push to pediatric patients*., Please choose an indication: Bone/Joint Infection 2322 (Given - Provider: Lana Thomas RN) 2216 (Given - Provider: Mary Desai RN) insulin glargine-yfgn (SEMGLEE) solution 20 Units 20 Units Every Night, subcutaneous, First dose on Wed10/10/24 at 2100 2153 (Given - Provider: Lana Thomas RN) 215 (Given - Provider: Mary Desai, MARIXA) insulin glargine-yfgn (SEMGLEE) solution 20 Units 20 Units Every morning, subcutaneous, First dose on Wed10/14/24 at 0600 0622 (Given - Provider: Mary Desai RN) insulin lispro (HUMALOG, ADMELOG) injection 0-6 Units 0-6 Units 4 times daily (before meals and nightly), subcutaneous, First dose on Wed10/10/24 at 1730, If Blood Sugar is less than 180 between 7287-2757, DO NOT give corrective insulin unless otherwise ordered. Corrective Scale A 0 units for fingerstick blood glucose LESS than 140 mg/dL 1 unit subcutaneously once for fingerstick blood glucose [140] - [180] mg/dL 2 units subcutaneously once for fingerstick blood glucose [181] - [220] mg/dL 3 units subcutaneously once for fingerstick blood glucose [221] - [260] mg/dL 4 units subcutaneously once for fingerstick blood glucose [261] - [300] mg/dL 5 units subcutaneously once for fingerstick blood glucose [301] - [350] mg/dL 6 units subcutaneously once for fingerstick blood glucose [351] - [400] mg/dL Notify provider of glucose levels LESS than [70] and GREATER than [400] 0843 (Given - Provider: Yelena Davenport RN)1142 (Given - Provider: Tee Snow)1606 (Given - Provider: Yelena Davenport RN)2153 (Given - Provider: Lana Thomas, MARIXA) 0545 (Given - Provider: Lana Thomas, MARIXA)0756 (Not Given - Provider: Carolina Jordan RN - Reason: Duplicate Order)1217 (Given - Provider: Carolina Jordan, MARIXA)1624 (Given - Provider: Carolina Jordan, RN)2154 (Given - Provider: Mary Desai RN) 0634 (Given - Provider: Mary Desai, RN)1250 (Given - Provider: Carolina Jordan RN) miconazole (MICOTIN) 2 % powder topical, 2 times daily, First dose on Wed10/11/24 at 2300 0845 (Given - Provider: Yelena Davenport RN)2152 (Given - Provider: Lana Thomas RN) 1137 (Not Given - Provider: Carolina Jordan RN - Reason: Medication/ Dose Unavailable)215 (Given - Provider: Mary Desai RN) 1041 (Given - Provider: Carolina Jordan RN) PRN Medication Order 10/12/2024 10/13/2024 10/14/2024 acetaminophen (TYLENOL) tablet 1,000 mg 1,000 mg Every 6 hours PRN, oral, fever greater than or equal to 38C, Starting on Wed10/10/24 at 1646, Recommended maximum dose of acetaminophen is 4000 mg from all sources in 24 hours 1624 (Given - Provider: Carolina Jordan RN) 1508 (Given - Provider: Carolina Jordan RN) albuterol 2.5 mg /3 mL (0.083 %) nebulizer solution 2.5 mg 2.5 mg Every 4 hours PRN, nebulization, wheezing, shortness of breath, Starting on Wed10/10/24 at 1911, RESPIRATORY THERAPY TREATMENT , What is the respiratory therapy Modality? Small volume Nebulization dextrose 50% (D50W) injection 25 g 25 g Every 15 min PRN, intravenous, low blood glucose (specify value in prn comments), less than 41 mg/dL or 41-69 mg/dL and unable to take PO, Starting on Wed10/10/24 at 1646, Repeat blood glucose every 15 minutes until [...] OR Less than 41 mg/dL, Starting on Wed10/10/24 at 1646, Caution: glucagon . Roll patient on their side when administering to prevent aspiration. Call Provider if not resolved after 2 treatments Repeat BS in 1 hour, retime for 1 hour after blood sugar greater than 70 mg/dL glucose chew tab 16 g 16 g Every 15 min PRN, oral, low blood glucose (specify value in prn comments), 41-69 mg/dL, Starting on Wed10/10/24 at 1646, For Patients who can take oral AND [...] greater than 70 mg/dL hydrALAZINE (APRESOLINE) injection 5 mg 5 mg Every 6 hours PRN, intravenous, hypertension (sbp greater than 160), Starting on Wed10/10/24 at 1646, Hold if SBP < 100 mmHg, DBP < 50 mmHg, or patient is on pressor. Look-alike/Sound-alike medication ondansetron (ZOFRAN) injection 4 mg(Linked Group 1) 4 mg Every 8 hours PRN, intravenous, nausea, vomiting, Starting on Wed10/10/24 at 1646, Give IV if patient is unable to take orally. 1st line If inadequate response within 60 minutes, proceed to next-line agent for same PRN reason or contact provider if no further options ordered. For IV push, give over 2 - 5 minutes. ondansetron (ZOFRAN-ODT) disintegrating tablet 4 mg(Linked Group 1) 4 mg Every 8 hours PRN, oral, nausea, vomiting, Starting on Wed10/10/24 at 1646, 1st line. If inadequate response within 60 minutes, proceed to next-line agent for same PRN reason or contact provider if no further options ordered. sodium chloride flush 10 mL(Linked Group 2) 10 mL As needed, intravenous, line care, Starting on Wed10/10/24 at 1645, Every 8 hours and PRN to flush traMADoL (ULTRAM) tablet 50 mg 50 mg Every 6 hours PRN, oral, moderate pain (4-6), Starting on Wed10/10/24 at 1911 1605 (Given - Provider: Yelena Davenport, RN) 1450 (Given - Provider: Carolina Jordan, RN)2153 (Given - Provider: Mary Desai, MARIXA) 1041 (Given - Provider: Carolina Jordan, MARIXA) Linked Groups Order Group 1: ondansetron (ZOFRAN-ODT) disintegrating tablet 4 mgJump to med 4 mg Every 8 hours PRN, oral, nausea, vomiting, Starting on Wed10/10/24 at 1646, 1st line. If inadequate response within 60 minutes, proceed to next-line agent for same PRN reason or contact provider if no further options ordered. Or ondansetron (ZOFRAN) injection 4 mgJump to med 4 mg Every 8 hours PRN, intravenous, nausea, vomiting, Starting on Wed10/10/24 at 1646, Give IV if patient is unable to take orally. 1st line If inadequate response within 60 minutes, proceed to next-line agent for same PRN reason or contact provider if no further options ordered. For IV push, give over 2 - 5 minutes. 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
--- OUTSIDE RECORDS SUMMARY | 2024-10-25 09:45 | XMS_ITS | Encounter Summary ---
Author Organization [employer] ([place], [place], [place], [place]) Address [address] [place] [address] Care Team Providers Care Support Manager Name Role Phone Story, Norma Reynolds APRN Primary Care Provider [phone] Encounter Details Date Type Department Care Team (Late st Contact Info) Description 10/25/2024 9:45 AM EDT Office Visit [facility] Surgery - [employer] [address] [place] [address] David Bernal MD [address] [place] [address] Foreign body of knee with [...] Do you speak a language other than [facility] at [facility]? No 10/10/2024 Do you want help with [...] General Surgery Consultation Referring provider: Norma Au, COKE OVEN MASON HPI: Denisa Sanon is a 84 y.o. female who recently had a knee replacement which was complicated with postop infection. She was taken by Dr. Olmos for a washout. She has since been discharged to a long-term facility and has been on antibiotics. She [...] KNEE ARTHROPLASTY; Surgeon: Kiran Olmos MD; Location: [facility]; Service: Orthopedic Surgery; Laterality: Right; Slight Bruising noted at site of bovie pad removal, Left thigh CARDIAC CATHETERIZATION GALLBLADDER SURGERY HYSTERECTOMY I&D,ABSCESS LEG Right 10/11/2024 Procedure: IRRIGATION AND DEBRIDEMENT, SUBCUTANEOUS TISSUE, SKIN, WITH JOINT ASPIRATION AND CLOSURE, POST TOTAL KNEE REPLACEMENT; Surgeon: Kiran Olmos MD; Location: [facility]; Service: Orthopedic Surgery; Laterality: Right; Procedure on Brain Mass removed. TONSILLECTOMY Patient Active Problem List Diagnosis Asthma Chronic hypoxic respiratory failure (HCC) CKD (chronic kidney disease) COPD (chronic obstructive pulmonary disease) (HCC) CAD (coronary artery disease) DM (diabetes mellitus) (HCC) Hyperlipemia HTN (hypertension) MARCELA (obstructive sleep apnea) Obesity, morbid, BMI 40.0-49.9 (HCC) Osteoarthritis, knee Joint infection ([facility]) Post op infection Current Outpatient Medications Medication [...] surgeon and infectious disease. David Bernal DO [facility] [address] [place] [address] [address] [place] [address] 9:52 AM 10/25/2024 documented in this encounter Plan of Treatment Not on file documented as of this encounter Visit Diagnoses Diagnosis Foreign body of knee with infection, right, subsequent encounter- Primary documented in this encounter Additional Health Concerns Infection Onset Date Last Indicated Resolved Time MRSA (C) 10/14/2024 10/14/2024 documented as of this encounter Care Teams Support Manager Relationship Specialty Start Date End Date Roe, Norma Gail, COKE OVEN MASON [address] [facility] [place] [address] PCP - General Nurse Practitioner 08/23/24 documented as of this encounter
--- OUTSIDE RECORDS SUMMARY | 2024-10-30 11:36 | XMS_ITS ---
Author Organization [facility] Address [address] [place] [address] Phone Care Team Providers Care Sales Vice President Name Role Phone Donaldo BRIONES, David Ortega Unavailable [phone] Conditions or Problems Problem Name Problem Code Onset Date Status Entry Date Provider Comment Standard Description Annotate Fall risk [id number] (SNOMED CT) Active Sean Malagon At increased [...] Tob acco smoking status Plan of Care No information available. Procedures Code Procedure Name Date Entry Date [...]
--- OUTSIDE RECORDS SUMMARY | 2024-11-09 10:41 | XMS_ITS ---
Author Organization [facility] Address [address] [place] [address] Phone Care Team Providers Care Business Solutions Director Name Role Phone Donaldo BRIONES, David Barron [phone] Conditions or Problems No information available. Medications Medication Instructions Start Date Stop Date Generic Name NDC Provider DOXYCYCLINE MONOHYDRATE 100 MG TABS Take 1 tablet by mouth twice a day 4 doxycycline monohydrate [id number] David Fulton MD CEFUROXIME AXETIL 250 MG TABS Take 1 tablet by mouth twice a day 4 cefuroxime axetil [id number] David Fulton MD Medications Administered No information available. Allergies, Adverse Reactions, Alerts No information available. Results Date Name Value Unit Range Flag Description Office Visit: Office Visit:[email or web address] MEDS REVIEW Done Documenta tion of [...]
--- NOTE | 2024-12-11 09:49 | XR_ITS ---
FINAL REPORT TECHNIQUE: Lumbar spine 2 views CLINICAL HISTORY: LUMBAR PAIN POST FALL COMPARISON: None FINDINGS: AP and lateral views of the lumbar spine were obtained. The lateral view of the lumbar spine is markedly limited by positioning. There is no prior exam for comparison. There is no gross acute fracture or malalignment. Vertebral body height is preserved. Multilevel degenerative disc disease is present. No acute paraspinal abnormality. IMPRESSION: Limited examination secondary to positioning, with no acute gross osseous abnormality of the lumbar spine. Reviewed, Interpreted and Dictated by Azul Cloud MD Transcribed by Basia Muller Authenticated and [facility]
--- OUTSIDE RECORDS SUMMARY | 2024-12-11 10:16 | XMS_ITS | Clinical Summary ---
Author Organization [email or web address] ([place], [place], [place], [place]) Address [address] [place] [address] Care Team Providers Care School Crossing Guard Name Role Phone Story, Norma Reynolds HARDWARE MANAGER Primary Care Provider [phone] Allergies Active Allergy Reactions Criticality Noted Date [...] Description 10/25/2024 9:45 AM EDT Office Visit [facility] Surgery - [place] [address] [facility] [address] [place] [address] David Bernal MD Foreign body of knee with infection, right, subsequent encounter (Primary Dx) 10/11/2024 2:35 PM EDT - 10/11/2024 4:42 PM EDT Surgery Surgery Department [address] [place] [address] Wilfrido Stafford MD IRRIGATION AND DEBRIDEMENT, SUBCUTANEOUS TISSUE, SKIN, WITH JOINT ASPIRATION AND CLOSURE, POST TOTAL KNEE REPLACEMENT 10/11/2024 1:53 PM EDT Anesthesia Event Surgery Department [address] [place] [address] Patricia Dumont CRNA 10/11/2024 Surgery Prep Surgery Department [address] [place] [address] Wilfrido Stafford MD 10/10/2024 4:34 PM EDT - 10/14/2024 3:30 PM EDT Hospital Encounter Telemetry Unit [address] [place] [address] Brigitte Boone MD 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 No 10/10/2024 Do you want [...] (Zoster) (2 of 2) 04/07/20232022 COVID-19 VACCINE (1 - season) 2023 Falls Risk Screening 04/19/2024 Medicare IPPE (Welcome to Medicare) G0402 04/19/2024 Influenza Vaccine (#1) 2024 01/22/2020 Hemoglobin A1C 02/08/2025 08/09/2024 Tobacco Cessation Counseling and Screening (12+) 10/2510/25/2024 Pneumococcal 50+ years Completed 02/10/2023 Medical Devices Implanted Type Area Production Superintendent Device Identifier Shelf Expiration Date Model / Serial / Lot Cement Bone Smplx Tobra 40gm 6197-9-001 - [id number] Implanted:Qty : 2 on 08/23/2024 by Wilfrido Stafford MD at [facility] IMPLANTS Right: Knee [employer] 10/16/2025 [id number] 1 / / [id number] Pwdr Cellerate Clgn 1gm Strl Ghf-79-Kwbeim - [id number] Implanted:Qty : 1 on 08/23/2024 by Wilfrido Stafford MD at [facility] IMPLANTS Right: Knee [employer] 08/31/2026 WCI-01-SA CRXP / / [id number] Pwdr Cellerate Clgn 1gm Strl Ecc-94-Byldjy - [id number] Implanted:Qty : 1 on 10/11/2024 by Wilfrido Stafford MD at [facility] IMPLANTS Right: Knee [employer] [facility] 08/31/2026 WCI-01-SA CRXP / / [id number] Imp Patella Itotal 35x7mm [id number] - [id number] Implanted:Qty : 1 on 08/23/2024 by Wilfrido Stafford MD at [facility] TOTAL JOINT CONSTRUCT Right: Knee [employer] 06/16/2026 [id number] Kt Itotal Id Ps Full Xe Itps-Xe-1pc - [id number] Implanted:Qty : 1 on 08/23/2024 by Wilfrido Stafford MD at [facility] TOTAL JOINT CONSTRUCT Right: Knee [employer] 08/16/2025 ITPS-XE-1 PC / [id number] / Imp Itotal Id Ps Fem Attila Lt [id number] - [id number] Implanted:Qty : 1 on 08/23/2024 by Wilfrido Stafford MD at [facility] TOTAL JOINT CONSTRUCT Right: Knee [employer] 08/16/2025 [id number] / Ty Itotal Id Ps Tib Attila Lt [id number] - [id number] Implanted:Qty : 1 on 08/23/2024 by Wilfrido Stafford MD at [facility] TOTAL JOINT CONSTRUCT Right: Knee [employer] 08/16/2025 [id number] / Procedures Procedure Name Priority Date/Time Associated [...] GLUCOSE POC Routine 10/10/2024 5:41 PM EDT HEMOGLOBIN A1C Routine 08/09/2024 11:20 AM EDT Preop examination from Last 3 Months or Most Recently Relevant to Health Maintenance Results * (ABNORMAL) Glucose, Nova Meter (10/14/2024 11:28 AM EDT) Only the most recent of18 resultswithin the time period is included. [facility] POC-GLUCOSE 182(H) 70 - 110 mg/dL 10/14/2024 11:29 AM EDT [facility] Comment: In the event of poor peripheral blood flow, venous or arterial blood should be used due to the potential of erroneous results. Notified Nurse RBV Supervisor Shearing [phone] 10/14/2024 11:29 AM EDT [facility] Blood WHOLE BLOOD / Unknown 10/14/2024 11:28 AM EDT 10/14/2024 11:29 AM EDT Narrative [facility] - 10/14/2024 11:29 AM EDT Supervisor Shearing ID is - [id number] Brigitte Boone MD POINT OF CARE TEST ORDERABLES Final Result [facility] [address] [phone] * (ABNORMAL) CBC with Automated Diff (10/14/2024 4:07 AM EDT) Pathologist [facility] WBC 8.3 3.9 - 10.0 K/ L [...] AM EDT 10/14/2024 4:07 AM EDT Narrative [facility] - 10/14/2024 4:20 AM EDT [...] Re sult [facility] [address] [place] [address], [facility] [phone] * (ABNORMAL) Basic Metabolic Panel (10/14/2024 4:07 AM EDT) Only the most recent of2 resultswithin the time period is included. Sodium [...] Re sult [facility] [address] [phone] * DIFFERENTIAL, BODY FLUID (10/11/2024 2:33 PM [...] Final Result [facility] [address] [place] [address], [facility] [phone] * [facility] Non-Gear Shaper Cytology (10/11/2024 2:33 PM EDT) AP RESULT See Note: [facility] Comment: [facility] [address] [place] [address] or [phone] Rusty Ferris M.D., Health Social Work Professor PATIENT NAME LABORATORY NO. 170LOUIE SCHUMACHER. [id number] AGE SEX SSN CLIENT REF # [facility] [id number] [facility] John ATTENDING [place] [address] WILFRIDO STAFFORD DATE COLLECTED DATE RECEIVED DATE REPORTED 10/11/2024 10/11/2024 10/12/2024 DIAGNOSIS: SYNOVIAL JOINT FLUID, RIGHT KNEE: Negative for malignant cells. MICROSCOPIC DESCRIPTION: Acute and chronic inflammation are present in a background of amorphous debris. Professional interpretation rendered by Efrain Ferguson M.D., F.C.A.P. at [facility] [employer], [address] [place] [address]. 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 Cell block has been examined. TOOLS PROGRAMMER: NAHOMI MARTINEZ (ASCP) REVIEWED, DIAGNOSED AND ELECTRONICALLY SIGNED BY: Efrain Ferguson M.D., F.C.A.P. CPT CODES: [id number], [id number] Synovial Fluid BODY FLUID / Unknown 10/11/2024 2:33 PM EDT Wilfrido Stafford MD PATHOLOGY/CYTOLOGY ORDERABLES Fi nal Result [facility] [address] * (ABNORMAL) Body fluid cell count with [...] Final Result [facility] [address] [phone] * AFB Culture And Stain (10/11/2024 2:31 PM EDT) Only the most recent of3 resultswithin the time period is included. Result No Acid Fast Bacilli isolated at 6 weeks 12/04/2024 2:06 PM EDT [facility] AFB Smear No acid fast bacilli seen 12/04/2024 2:06 PM EDT [facility] Tissue STRUCTURE OF RIGHT KNEE REGION / Unknown 10/11/2024 2:31 PM EDT 10/11/2024 3:04 PM EDT Narrative [facility] - 12/04/2024 2:06 PM EDT Specimen Description: Right Knee Synovium #3 us Wilfrido Stafford MD MICROBIOLOGY - GENERAL ORDERABLE S Final Result Performing Organization Address City/[facility]/ZIP Co de Phone Number [facility] [address] [phone] * Fungus Culture W/ERUM Or Alma Ink (10/11/2024 2:31 PM EDT) Only the most recent of3 resultswithin the time period is included. Result No fungus isolated at 6 weeks. 11/22/2024 4:00 PM EDT [facility] ERUM Prep No fungal elements seen 11/22/2024 4:00 PM EDT [facility] Tissue STRUCTURE OF RIGHT KNEE REGION / Unknown 10/11/2024 2:31 PM EDT 10/11/2024 3:04 PM EDT [facility] - 11/22/2024 4:00 PM EDT Specimen Description: Right Knee Synovium #3 us Wiflrido Stafford MD MICROBIOLOGY - GENERAL ORDERABLE S Final Result Performing Organization Address City/[facility]/ZIP Co de Phone Number [facility] [address] [phone] * (ABNORMAL) Anaerobic Culture, Extended (P.acnes) (10/11/2024 2:31 PM EDT) Only the most recent of3 resultswithin the time period is included. Result Anaerococcus vaginalis(A) 10/25/2024 7:00 AM EDT [facility] Result Peptoniphilus harei(A) 10/25/2024 7:00 AM EDT [facility] Result Porphyromonas somerae(A) 10/25/2024 7:00 AM EDT [facility] Result Anaerobic gram positive cocci(A) 10/25/2024 7:00 AM EDT [facility] Comment:* - Peptoniphilus sp ecies Tissue STRUCTURE OF RIGHT KNEE REGION / Unknown 10/11/2024 2:31 PM EDT 10/11/2024 3:03 PM EDT Narrative [facility] - 10/25/2024 7:00 AM EDT Specimen Description: Right Knee Synovium #3 For Peptoniphilus species ID This test was developed and its performance characteristics determined by [facility]. It has not been cleared by the [place] Food and Drug Administration This result was determined by [facility] [employer]. This test is used for clinical purposes. It should not be reguarded as investigational or for research Mixed growth suggestive of colonization or indigenous alvaro. Inappropriate for full workup us Wilfrido Stafford MD MICROBIOLOGY - GENERAL ORDERABLE S Final Result [facility] [address] [phone] * (ABNORMAL) Tissue Culture+ Stain (10/11/2024 2:31 PM EDT) Only the most recent of3 resultswithin the time period is included. Result Moderate Growth Methicillin resistant Staphylococcus aureus(A) 10/15/2024 11:51 AM EDT [facility] Comment: Resistant organism requires isolation protocol. For susceptibility see previous report - Accession - [id number] Result Light Growth Haemophilus parainfluenzae(A) 10/15/2024 11:51 AM EDT [facility] Comment:Beta-lactamase negat brooke Gram Stain Result Few gram positive cocci in pairs and clusters 10/15/2024 11:51 AM EDT [facility] Gram Stain Result Few WBCs 025 11:51 AM EDT [facility] Gram Stain Result Few epithelial cells 10/15/2024 11:51 AM EDT [facility] Tissue STRUCTURE OF RIGHT KNEE REGION / Unknown 10/11/2024 2:31 PM EDT 10/11/2024 3:03 PM EDT Narrative [facility] - 10/15/2024 11:51 AM EDT Specimen Description: Right Knee Synovium #3 Wilfrido Stafford MD MICROBIOLOGY - GENERAL ORDERABLE S Final Result Performing Organization Address City/[facility] Co de Phone Number [facility] [address] [phone] * SPIN/CONCENTRATION CHARGE (10/11/2024 2:31 PM EDT) Only the most recent of2 resultswithin the time period is included. Concentration charged Done 10/23/2024 10:56 AM EDT [facility] Tissue STRUCTURE OF RIGHT KNEE REGION / Unknown 10/11/2024 2:31 PM EDT 10/11/2024 3:04 PM EDT Wilfrido Stafford MD MICROBIOLOGY - GENERAL ORDERABLE S Final Result Performing Organization Address [facility] de Phone Number [facility] [address] [phone] * AN SINGLE LUMEN INTUBATION (10/11/2024 2:02 [...] in 5 days 10/16/2024 8:01 AM EDT [facility] Blood STRUCTURE OF RIGHT HAND / Unknown Venipuncture / Unknown 10/11/2024 6:28 AM EDT 10/11/2024 6:28 AM EDT us Brigitte Boone MD MICROBIOLOGY - GENERAL ORDERA BLES Final Result [facility] [address] [place] [address] * (ABNORMAL) CBC - Hemogram (SJ-BKR) (10/11/2024 [...] ORDERABLES Final Re sult Performing Organization Address City/[facility]/ZIP Co de Phone Number [facility] [address] [phone] * Creatine Kinase (CK) (10/11/2024 6:21 AM EDT) Total CK 87 26 - 192 U/L 10/11/2024 8:35 AM EDT [facility] Blood Venipuncture / Unknown 10/11/2024 6:21 AM EDT 10/11/2024 6:28 AM EDT us David Fulton MD LAB BLOOD ORDERABLES Final Re sult Performing Organization Address City/[facility]/ZIP Co de Phone Number [facility] [address] [phone] * PT/INR, PTT (10/10/2024 7:06 PM EDT) [...] ORDERABLES Final Re sult Performing Organization Address [facility] Co de Phone Number [facility] [address] [phone] * Procalcitonin (10/10/2024 7:06 PM EDT) Procalcitonin [...] ORDERABLES Final Re sult Performing Organization Address [facility] Co de Phone Number [facility] [address] [place] [address], [facility] [phone] * (ABNORMAL) PROBNP (10/10/2024 7:06 PM EDT) ProBNP (pg/mL) 815(H) 0 - 450 pg/mL 10/10/2024 7:28 PM EDT [facility] Blood Venipuncture / Unknown 10/10/2024 7:06 PM EDT 10/10/2024 7:06 PM EDT Brigitte Boone MD LAB BLOOD ORDERABLES Final Re sult Performing Organization Address [facility] Co de Phone Number [facility] [address] [phone] * C-Reactive Protein (10/10/2024 7:06 PM EDT) CRP 0.60 0.00 - 0.90 mg/dL 10/10/2024 7:28 PM EDT [facility] Blood Venipuncture / Unknown 10/10/2024 7:06 PM EDT 10/10/2024 7:06 PM EDT Brigitte Boone MD LAB BLOOD ORDERABLES Final Re sult Performing Organization Address [facility] Co de Phone Number [facility] [address] [phone] * Magnesium (10/10/2024 7:06 PM EDT) Magnesium 1.7 1.5 - 2.4 mg/dL 10/10/2024 7:28 PM EDT [facility] Blood Venipuncture / Unknown 10/10/2024 7:06 PM EDT 10/10/2024 7:06 PM EDT Brigitte Boone MD LAB BLOOD ORDERABLES Final Re sult Performing Organization Address [facility] Co de Phone Number [facility] [address] [phone] * (ABNORMAL) Comprehensive metabolic panel (10/10/2024 7:06 PM EDT) Sodium 132(L) 136 - 146 meq/L 10/10/2024 7:28 PM EDT [facility] Potassium 3.9 3.5 - 5.1 meq/L 10/10/2024 7:28 PM [facility] Chloride 96(L) 102 - 112 meq/L 10/10/2024 7:28 PM [facility] CO2 32 21 - 32 meq/L 10/10/2024 7:28 PM [facility] Calcium 9.0 8.5 - 10.1 mg/dL 10/10/2024 7:28 PM [facility] Glucose 305(H) 74 - 106 mg/dL 10/10/2024 7:28 PM [facility] BUN 23(H) 7 - 22 mg/dL 10/10/2024 7:28 PM [facility] Creatinine 1.68(H) 0.55 - 1.02 mg/dL 10/10/2024 7:28 PM [facility] BUN/Creatinine 14 8 - 20 10/10/2024 7:28 PM [facility] Albumin 3.2(L) 3.4 - 5.0 g/dL 10/10/2024 7:28 PM [facility] Alkaline Phosphatase 99 27 - 136 U/L 10/10/2024 7:28 PM [facility] ALT 25 12 - 78 U/L 10/10/2024 7:28 PM [facility] AST 27 5 - 37 U/L 10/10/2024 7:28 PM [facility] Total Bilirubin 0.4 0.2 - 1.3 mg/dL 10/10/2024 7:28 PM [facility] Protein, Total 7.1 6.4 - 8.2 gm/dL 10/10/2024 7:28 PM [facility] Anion Gap 8(L) 9 - 20 10/10/2024 7:28 PM [facility] A/G Ratio 0.8(L) 1.1 - 2.5 10/10/2024 7:28 PM [facility] Globulin 3.9 1.5 - 4.5 g/dL 10/10/2024 7:28 PM [facility] Osmolality Calc 279.7 mOsm/kg 7:28 PM [facility] eGFR (mL/min/1.73m2) 30(L) >=60 mL/min/1.7 3m2 10/10/2024 7:28 PM EDT [facility] Comment:ESTIMATED GFR IS NOT ACCURATE CREATININE CLEARANCE IN PREDICTING GLOMERULAR FILTRATION RATE. ESTIMATED GFR IS NOT APPLICABLE FOR DIALYSIS PATIENTS. Blood Venipuncture / Unknown 10/10/2024 7:06 PM EDT 10/10/2024 7:06 PM EDT Brigitte Boone MD LAB BLOOD ORDERABLES Final Re sult [facility] [address] [phone] * (ABNORMAL) Hemoglobin A1c (08/09/2024 11:20 AM EDT) Hemoglobin A1C 7.7(H) 4.2 - 6.3 % 08/09/2024 12:43 PM EDT [facility] Comment: Hemoglobin A1C levels are related to mean glucose during the preceding 2-3 months. Less than 7% demonstrates glycemic control in diabetic patients. 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
--- OUTSIDE RECORDS SUMMARY | 2024-12-11 10:16 | XMS_ITS | Encounter Summary ---
Author Organization [employer] ([place], [place], [place], [place]) Address [address] [address] Care Team Providers Care Gas Plant Worker Name Role Phone Roe, Norma Reynolds APRN Primary Care Provider [phone] Encounter Details Date Type Department Care Team (Late st Contact Info) Description 08/23/2024 Surgery Prep [facility] Surgery Department [address] [place] [address] Kiran Olmos MD [address] [facility] 2nd [place] [address] Social History Tobacco Use Types Packs/Day Years Used Date Smoking Tobacco: Former Cigarettes Smokeless Tobacco: Never Comments:Patient was a 3 ppd smoker x 20 years. Stopped smoking in Alcohol Use Standard Drinks/Week Comments Never 0 (1 standard drink = 0.6 oz pur e alcohol) Utilities Answer Date Recorded In the past 12 months, has t he [employer] retargeting, gas, oil, or water [employer] threatened to shut off services in your [...] Do you speak a language other than Tun[place]ian at [facility]? No 10/10/2024 Do you want help with [...] on filedocumented in this encounter Care Teams Gas Plant Worker Relationship Specialty Start Date End Date Norma Au, PIN MACHINE OPERATOR [address] [facility] [place] [address] PCP - General Nurse Practitioner 08/23/24 documented as of this encounter
--- OUTSIDE RECORDS SUMMARY | 2024-12-11 10:16 | XMS_ITS | Encounter Summary ---
Author Organization Healthcare Address [address] [place] [address] Care Team Providers Care Frozen Foods Manager Name Role Phone Carlos Gonzalez MD Primary Care Provid er Encounter Details Date Type Department Care Team (Late st Contact Info) Description 09/28/2024 Lab Requisition [facility] [address] [place] [address] System, Provider Not In, [address] [place] [address] Chronic respiratory failure with hypoxia; Osteoarthritis of [...] - 1,799 pg/mL 09/28/2024 11:58 PM EDT [facility] Blood Venous blood specimen / Unknown 09/28/2024 11:00 PM EDT 09/28/2024 11:42 PM EDT us Provider Not In System LAB BLOOD ORDERABLES F inal Result [facility] [address] [place] [address] documented in this encounter Visit Diagnoses Diagnosis Chronic respiratory failure with hypoxia Osteoarthritis of knee, unspecified Chronic kidney disease, unspecified Muscle weakness (generalized) documented in this encounter Care Teams Frozen Foods Manager Relationship Specialty Start Date End Date Carlos Gonzalez MD [address] [place], [place] [id number] PCP - General 08/30/20 documented as of this encounter
--- OUTSIDE RECORDS SUMMARY | 2024-12-11 10:16 | XMS_ITS | Referral Summary ---
Author Organization [employer] ([place], [place], [place], [place]) Address [address] [place] [address] Care Team Providers Care Tongue And Groove Machine Operator Name Role Phone Norma Au APRN Primary Care Provider [phone] Encounters Date Type Department Care Team Description 10/25/2024 9:45 AM EDT Office Visit [facility] Surgery - [place] [address] [place] [address] aDvid Bernal MD Foreign body of knee with infection, right, subsequent encounter (Primary Dx) 10/10/2024 4:34 PM EDT - 10/14/2024 3:30 PM EDT Hospital Encounter [facility] Telemetry Unit [address] [place] [address] Brigitte Boone MD 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) Discharge Disposition: Care Home Facility 10/11/2024 1:53 PM EDT Anesthesia Event [facility] Surgery Department [address] [place] [address] Patricia Dumont CRNA 10/11/2024 Surgery Prep [facility] Surgery Department [address] [place] [address] Wilfrido Stafford MD 10/11/2024 2:35 PM EDT - 10/11/2024 4:42 PM EDT Surgery [facility] Surgery Department [address] [place] [address] Wilfrido Stafford MD IRRIGATION AND DEBRIDEMENT, SUBCUTANEOUS TISSUE, SKIN, WITH JOINT ASPIRATION AND CLOSURE, POST TOTAL KNEE REPLACEMENT 10/10/2024 Travel from Last 3 Months Allergies Active Allergy [...] the past 12 months, has t he [employer] [place], gas, oil, or water [employer] threatened to shut off services in your [...] Do you speak a language other than [place]ian at [facility]? No 10/10/2024 Do you want help [...] on file Medical Devices Implanted Type Area Research Staff Member Device Identifier Shelf Expiration Date Model / Serial / Lot Cement Bone Smplx Tobra 40 6197-9-001 - [id number] Implanted:Qty : 2 on 08/23/2024 by Wilfrido Stafford MD at [facility] IMPLANTS Right: Knee KEITH:[employer] 10/16/2025 [id number] 1 / / [id number] Pwdr Cellerate Clgn 1gm StrMountain States Health AllianceWoq-33-Lpznnq - [id number] Implanted:Qty : 1 on 08/23/2024 by Wilfrido Stafford MD at [facility] IMPLANTS Right: Knee WOUND CARE Edmodo [facility] 08/31/2026 [facility]-01-SA CRXP / / [id number] Pwdr Cellerate Clgn 1gm Strl Jsk-71-Vqobak - [id number] Implanted:Qty : 1 on 10/11/2024 by Wilfrido Stafford MD at [facility] IMPLANTS Right: Knee WOUND CARE Edmodo [facility] 08/31/2026 W[employer]-01-SA CRXP / / [id number] Imp Patella Itotal 35x7mm [id number] - [id number] Implanted:Qty : 1 on 08/23/2024 by Wilfrido Stafford MD at [facility] TOTAL JOINT CONSTRUCT Right: Knee CONFORMIS 06/16/2026 [id number] / / [id number] Kt Itotal Id Ps Full Xe Itps-Xe-1pc - [id number] Implanted:Qty : 1 on 08/23/2024 by Wilfrido Stafford MD at [facility] TOTAL JOINT CONSTRUCT Right: Knee CONFORMIS 08/16/2025 ITPS-XE-1 PC / [id number] / Imp Itotal Id Ps Fem Attila Lt [id number] - [id number] Implanted:Qty : 1 on 08/23/2024 by Wilfrido Stafford MD at [facility] TOTAL JOINT CONSTRUCT Right: Knee CONFORMIS 08/16/2025 [id number] / [id number] / Ty Itotal Id Ps Tib Attila Lt [id number] - [id number] Implanted:Qty : 1 on 08/23/2024 by Wilfrido Stafford MD at [facility] TOTAL JOINT CONSTRUCT Right: Knee CONFORMIS 08/16/2025 [id number] / [id number] / Procedures Procedure Name Priority Date/Time Associated [...] of18 resultswithin the time period is included. [facility] POC-GLUCOSE 182(H) 70 - 110 mg/dL 10/14/2024 11:29 AM EDT [facility] Comment: In the event of poor peripheral blood flow, venous or arterial blood should be used due to the potential of erroneous results. Notified Nurse RBV Development Professional [id number] 10/14/2024 11:29 AM EDT [facility] Blood WHOLE BLOOD / Unknown 10/14/2024 11:28 AM EDT 10/14/2024 11:29 AM EDT Narrative [facility] - 10/14/2024 11:29 AM EDT Development Professional ID is - [id number] us Brigitte Boone MD POINT OF CARE TEST ORDERABLES Final Result [facility] [address] [phone] * (ABNORMAL) CBC with Automated Diff (10/14/2024 4:07 AM EDT) WBC 8.3 3.9 - 10.0 K/ L 10/14/2024 4:20 AM EDT [facility] RBC 4.23 3.93 - 6.08 M/ L 10/14/2024 4:20 AM EDT [facility] Hemoglobin 12.7 11.2 - 15.7 GM/DL 10/14/2024 4:20 AM EDT [facility] Hematocrit 38.6 34.1 - 44.9 % 10/14/2024 4:20 AM EDT [facility] MCV 91 79 - 95 fL 10/14/2024 4:20 AM EDT [facility] MCH 30.0 25.6 - 32.2 pg 10/14/2024 4:20 AM EDT [facility] MCHC 32.9 32.2 - 36.5 GM/DL 10/14/2024 4:20 AM EDT [facility] RDW 12.8 11.6 - 14.4 % 10/14/2024 4:20 AM EDT [facility] Platelets 250 163 - 369 K/CU MM 10/14/2024 4:20 AM EDT [facility] MPV 9.3(L) 9.4 - 12.4 fL 10/14/2024 4:20 AM EDT [facility] % Neutros 66 34 - 71 % 10/14/2024 4:20 AM EDT [facility] % Lymphs 21 19 - 53 % 10/14/2024 4:20 AM EDT [facility] % Monos 11 4 - 13 % 10/14/2024 4:20 AM EDT [facility] % Eos 1 1 - 7 % 10/14/2024 4:20 AM EDT [facility] % Baso 0 0 - 1 % 10/14/2024 4:20 AM EDT [facility] # Neutros 5.42 1.56 - 6.13 K/ L 10/14/2024 4:20 AM EDT [facility] # Lymphs 1.76 1.18 - 3.74 K/ L 10/14/2024 4:20 AM EDT [facility] # Monos 0.92(H) 0.24 - 0.82 K/ L 10/14/2024 4:20 AM EDT [facility] # Eos 0.11 0.04 - 0.54 K/ L 10/14/2024 4:20 AM EDT [facility] # Baso 0.02 0.01 - 0.08 K/ L 10/14/2024 4:20 AM EDT [facility] Immature Granulocytes-Re lative 0.20 0.00 - 0.60 % 10/14/2024 4:20 AM EDT [facility] # IG 0.02 0.00 - 0.05 K/uL 10/14/2024 4:20 AM T [facility] Blood Venipuncture / Unknown 10/14/2024 4:07 AM EDT 10/14/2024 4:07 AM EDT [facility] LABORATORY - 10/14/2024 4:20 AM EDT When [...] MD LAB BLOOD ORDERABLES Final Re sult [facility] [address] [place] [address], [facility] [phone] * (ABNORMAL) Basic Metabolic Panel (10/14/2024 4:07 AM EDT) Only the most recent of2 resultswithin the time period is included. Sodium 136 136 - 146 meq/L 10/14/2024 4:25 AM EDT [facility] Potassium 4.1 3.5 - 5.1 meq/L 10/14/2024 4:25 AM EDT [facility] Chloride 102 102 - 112 meq/L 10/14/2024 4:25 AM EDT [facility] CO2 32 21 - 32 meq/L 10/14/2024 4:25 AM EDT [facility] Anion Gap 6(L) 9 - 20 10/14/2024 4:25 AM EDT [facility] BUN 35(H) 7 - 22 mg/dL 10/14/2024 4:25 AM EDT [facility] Creatinine 1.29(H) 0.55 - 1.02 mg/dL 10/14/2024 4:25 AM EDT [facility] BUN/Creatinine 27(H) 8 - 20 10/14/2024 4:25 AM EDT [facility] Glucose 211(H) 74 - 106 mg/dL 10/14/2024 4:25 AM EDT [facility] Calcium 8.4(L) 8.5 - 10.1 mg/dL 10/14/2024 4:25 AM EDT [facility] Osmolality Calc 286.2 mOsm/kg 4:25 AM EDT [facility] eGFR (mL/min/1.73m2) 41(L) >=60 mL/min/1.7 3m2 10/14/2024 4:25 AM EDT [facility] Comment:eGFR of <60 suggests chronic kidney disease if found over a 3 month period of time. eGFR <15 indicates renal failure. Blood Venipuncture / Unknown 10/14/2024 4:07 AM EDT 10/14/2024 4:07 AM EDT Brigitte Boone MD LAB BLOOD ORDERABLES Final Re sult Performing Organization Address [facility]/ZIP Co de Phone Number [facility] [address] [phone] * DIFFERENTIAL, BODY FLUID (10/11/2024 2:33 PM EDT) Neutrophils Fluid 67 0 - 25 % 10/11/2024 3:15 PM EDT [facility] Lymphocytes Fluid 10 % 10/11/2024 3:15 PM EDT [facility] Monocytes Fluid 14 0 - 65 % 3:15 PM EDT [facility] EOSINOPHILS 9 10/11/2024 3:15 PM EDT [facility] Synovial Fluid BODY FLUID / Unknown 10/11/2024 2:33 PM EDT 10/11/2024 2:39 PM EDT Wilfrido Stafford MD BODY FLUIDS AND STOOLS ORDERABLE S Final Result Performing Organization Address [facility] Co de Phone Number [facility] [address] [phone] * [facility] Non-Grader Patrol Cytology (10/11/2024 2:33 PM EDT) AP RESULT See Note: [facility] Comment: [facility] [address] [place] [address] or [phone] Rusty Ferris M.D., Healthcare Administrator PATIENT NAME LABORATORY NO. 170LOUIE SCHUMACHER. [id number] AGE SEX SSN CLIENT REF # [facility] [id number] [address] REQUESTING John ATTENDING [place] [address] WILFRIDO STAFFORD DATE COLLECTED DATE RECEIVED DATE REPORTED 10/11/2024 10/11/2024 10/12/2024 DIAGNOSIS: SYNOVIAL JOINT FLUID, RIGHT KNEE: Negative for malignant cells. MICROSCOPIC DESCRIPTION: Acute and chronic inflammation are present in a background of amorphous debris. Professional interpretation rendered by Efrain Ferguson M.D., Geraldine at [facility], [address] [place] [address]. 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 Cell block has been examined. MELTER SUPERVISOR ELECTRIC ARC FURNACE: NAHOMI MARTINEZ (ASCP) REVIEWED, DIAGNOSED AND ELECTRONICALLY SIGNED BY: Efrain Ferguson M.D., Shannon[employer]. CPT CODES: 15301, [id number] Synovial Fluid BODY FLUID / Unknown 10/11/2024 2:33 PM EDT Wilfrido Stafford MD PATHOLOGY/CYTOLOGY ORDERABLES Fi nal Result [facility]TOLOGY LABORATORY [address] [place] [address] * (ABNORMAL) Body fluid cell count with differential (10/11/2024 2:33 PM EDT) Appearance Bloody(A) Clear 10/11/2024 3:15 PM EDT [facility] Color Red 10/11/2024 3:15 PM EDT [facility] BODY FLUID TYPE Synovial 3:15 PM EDT [facility] Auto WBC/Nucleated Cells BF 1,861 /uL 10/11/2024 3:15 PM EDT [facility] Comment: Please refer to specific WBC/Nucleated Cell Count Body Fluid reference ranges below: For Pleural: 0-1000 Peritoneal: 0-1000 Pericardial:0-1000 Synovial: 0-200 Auto RBC BF 80,000 /uL 10/11/2024 3:15 PM EDT [facility] Comment: Please refer to specific RBC Cell Count Body Fluid reference ranges below: Pleural: 0-10,000 Peritoneal: 0-10,000 Pericardial:0-10,000 Synovial:0-30 Synovial Fluid BODY FLUID / Unknown 10/11/2024 2:33 PM EDT 10/11/2024 2:39 PM EDT Narrative [facility] - 10/11/2024 3:15 PM EDT There is normally no readily obtainable pleural, peritoneal and pericardial fluid, hence normal elements for these potential fluids are not defined. us Wilfrido Stafford MD BODY FLUIDS AND STOOLS ORDERABLE S Final Result Performing Organization Address [facility] Co de Phone Number [facility] [address] [phone] * AFB Culture And Stain (10/11/2024 2:31 PM EDT) Only the most recent of3 resultswithin the time period is included. Result No Acid Fast Bacilli isolated at 6 weeks 12/04/2024 2:06 PM EDT [facility] AFB Smear No acid fast bacilli seen 12/04/2024 2:06 PM EDT [facility] Tissue STRUCTURE OF RIGHT KNEE REGION / Unknown 10/11/2024 2:31 PM EDT 10/11/2024 3:04 PM EDT Narrative [facility] - 12/04/2024 2:06 PM EDT Specimen Description: Right Knee Synovium #3 us Wilfrido Stafford MD MICROBIOLOGY - GENERAL ORDERABLE S Final Result Performing Organization Address [facility]/ZIP Co de Phone Number [facility] [address] [phone] * Fungus Culture W/ERUM Or Alma Ink (10/11/2024 2:31 PM EDT) Only the most recent of3 resultswithin the time period is included. Result No fungus isolated at 6 weeks. 11/22/2024 4:00 PM EDT [facility] ERUM Prep No fungal elements seen 11/22/2024 4:00 PM EDT [facility] Tissue STRUCTURE OF RIGHT KNEE REGION / Unknown 10/11/2024 2:31 PM EDT 10/11/2024 3:04 PM EDT [facility] - 11/22/2024 4:00 PM EDT Specimen Description: Right Knee Synovium #3 us Wilfrido Stafford MD MICROBIOLOGY - GENERAL ORDERABLE S Final Result [facility] [address] [phone] * (ABNORMAL) Anaerobic Culture, Extended (P.acnes) (10/11/2024 2:31 PM EDT) Only the most recent of3 resultswithin the time period is included. Result Anaerococcus vaginalis(A) 10/25/2024 7:00 AM EDT [facility] Result Peptoniphilus harei(A) 10/25/2024 7:00 AM EDT [facility] Result Porphyromonas somerae(A) 10/25/2024 7:00 AM EDT [facility] Result Anaerobic gram positive cocci(A) 10/25/2024 7:00 AM EDT [facility] Comment:* - Peptoniphilus sp ecies Tissue STRUCTURE OF RIGHT KNEE REGION / Unknown 10/11/2024 2:31 PM EDT 10/11/2024 3:03 PM EDT [facility] - 10/25/2024 7:00 AM EDT Specimen Description: Right Knee Synovium #3 For Peptoniphilus species ID This test was developed and its performance characteristics determined by [facility]. It has not been cleared by [...] ORDERABLE S Final Result Performing Organization Address City/[facility]/ZIP Co de Phone Number [facility] [address] [phone] * (ABNORMAL) Tissue Culture+ Stain (10/11/2024 2:31 PM EDT) Only the most recent of3 resultswithin the time period is included. Result Moderate Growth Methicillin resistant Staphylococcus aureus(A) 10/15/2024 11:51 AM EDT [facility] Comment: Resistant organism requires isolation protocol. For susceptibility see previous report - Accession - [id number] Result Light Growth Haemophilus parainfluenzae(A) 10/15/2024 11:51 AM EDT [facility] Comment:Beta-lactamase negat brooke Gram Stain Result Few gram positive cocci in pairs and clusters 10/15/2024 11:51 AM EDT [facility] Gram Stain Result Few WBCs 025 11:51 AM EDT [facility] Gram Stain Result Few epithelial cells 10/15/2024 11:51 AM EDT [facility] Tissue STRUCTURE OF RIGHT KNEE REGION / Unknown 10/11/2024 2:31 PM EDT 10/11/2024 3:03 PM EDT Narrative [facility] - 10/15/2024 11:51 AM EDT Specimen Description: Right Knee Synovium #3 us Wilfrido Stafford MD MICROBIOLOGY - GENERAL ORDERABLE S Final Result [facility] [address] [phone] * SPIN/CONCENTRATION CHARGE (10/11/2024 2:31 PM EDT) Only the most recent of2 resultswithin the time period is included. Concentration charged Done 10/23/2024 10:56 AM EDT [facility] Tissue STRUCTURE OF RIGHT KNEE REGION / Unknown 10/11/2024 2:31 PM EDT 10/11/2024 3:04 PM EDT Wilfrido Stafford MD MICROBIOLOGY - GENERAL ORDERABLE S Final Result [facility] [address] [place] [address], [facility] [phone] * AN SINGLE LUMEN INTUBATION (10/11/2024 2:02 [...] in 5 days 10/16/2024 8:01 AM EDT [facility] Blood STRUCTURE OF RIGHT HAND / Unknown Venipuncture / Unknown 10/11/2024 6:28 AM EDT 10/11/2024 6:28 AM EDT Brigitte Boone MD MICROBIOLOGY - GENERAL ORDERA BLES Final Result [facility] [address] [phone] * (ABNORMAL) CBC - Hemogram (SJ-BKR) (10/11/2024 6:21 AM EDT) WBC 6.9 3.9 - 10.0 K/ L 10/11/2024 6:36 AM EDT [facility] RBC 4.62 3.93 - 6.08 M/ L 10/11/2024 6:36 AM EDT [facility] Hemoglobin 13.9 11.2 - 15.7 GM/DL 10/11/2024 6:36 AM EDT [facility] Hematocrit 42.0 34.1 - 44.9 % 10/11/2024 6:36 AM EDT [facility] MCV 91 79 - 95 fL 10/11/2024 6:36 AM EDT [facility] MCH 30.1 25.6 - 32.2 pg 10/11/2024 6:36 AM EDT [facility] MCHC 33.1 32.2 - 36.5 GM/DL 10/11/2024 6:36 AM EDT [facility] RDW 13.1 11.6 - 14.4 % 10/11/2024 6:36 AM EDT [facility] Platelets 263 163 - 369 K/CU MM 10/11/2024 6:36 AM EDT [facility] MPV 9.3(L) 9.4 - 12.4 fL 10/11/2024 6:36 AM EDT [facility] nRBC 0(L) 1 - 5 /100 WBC 10/11/2024 6:36 AM EDT [facility] Blood Venipuncture / Unknown 10/11/2024 6:21 AM EDT 10/11/2024 6:28 AM EDT us Osama Mely BRIONES LAB BLOOD ORDERABLES Final Re sult [facility] [address] [phone] * Creatine Kinase (CK) (10/11/2024 6:21 AM EDT) Total CK 87 26 - 192 U/L 10/11/2024 8:35 AM EDT [facility] Blood Venipuncture / Unknown 10/11/2024 6:21 AM EDT 10/11/2024 6:28 AM EDT us David Fulton MD LAB BLOOD ORDERABLES Final Re sult [facility] [address] [phone] * PT/INR, PTT (10/10/2024 7:06 PM EDT) [facility] aPTT 24.0 22.0 - 32.0 seconds 10/10/2024 7:23 PM EDT [facility] Protime 11.0 9.0 - 12.0 seconds 10/10/2024 7:23 PM EDT [facility] INR 1.01 0.80 - 1.10 10/10/2024 7:23 PM EDT [facility] Blood Venipuncture / Unknown 10/10/2024 7:06 PM EDT 10/10/2024 7:06 PM EDT us Brigitte Boone MD LAB BLOOD ORDERABLES Final Re sult [facility] [address] [phone] * Procalcitonin (10/10/2024 7:06 PM EDT) Procalcitonin <0.14 <=0.50 ng/mL 10/10/2024 7:38 PM EDT [facility] Comment: Sepsis comment <0.5 Antibiotics Discouraged [...] ORDERABLES Final Re sult Performing Organization Address [facility] Co de Phone Number [facility] [address] [phone] * (ABNORMAL) PROBNP (10/10/2024 7:06 PM EDT) ProBNP (pg/mL) 815(H) 0 - 450 pg/mL 10/10/2024 7:28 PM EDT [facility] Blood Venipuncture / Unknown 10/10/2024 7:06 PM EDT 10/10/2024 7:06 PM EDT us Brigitte Boone MD LAB BLOOD ORDERABLES Final Re sult Performing Organization Address [facility] Co de Phone Number [facility] [address] [phone] * C-Reactive Protein (10/10/2024 7:06 PM EDT) CRP 0.60 0.00 - 0.90 mg/dL 10/10/2024 7:28 PM EDT [facility] Blood Venipuncture / Unknown 10/10/2024 7:06 PM EDT 10/10/2024 7:06 PM EDT us Brigitte Boone MD LAB BLOOD ORDERABLES Final Re sult Performing Organization Address City/[facility]/ZIP Co de Phone Number [facility] [address] [phone] * Magnesium (10/10/2024 7:06 PM EDT) Magnesium 1.7 1.5 - 2.4 mg/dL 10/10/2024 7:28 PM EDT [facility] Blood Venipuncture / Unknown 10/10/2024 7:06 PM EDT 10/10/2024 7:06 PM EDT Brigitte Boone MD LAB BLOOD ORDERABLES Final Re sult Performing Organization Address [facility] Co de Phone Number [facility] [address] [phone] * (ABNORMAL) Comprehensive metabolic panel (10/10/2024 7:06 PM EDT) Sodium 132(L) 136 - 146 meq/L 10/10/2024 7:28 PM EDT [facility] Potassium 3.9 3.5 - 5.1 meq/L 10/10/2024 7:28 PM EDT [facility] Chloride 96(L) 102 - 112 meq/L 10/10/2024 7:28 PM EDT [facility] CO2 32 21 - 32 meq/L 10/10/2024 7:28 PM EDT [facility] Calcium 9.0 8.5 - 10.1 mg/dL 10/10/2024 7:28 PM EDT [facility] Glucose 305(H) 74 - 106 mg/dL 10/10/2024 7:28 PM EDT [facility] BUN 23(H) 7 - 22 mg/dL 10/10/2024 7:28 PM EDT [facility] Creatinine 1.68(H) 0.55 - 1.02 mg/dL 10/10/2024 7:28 PM EDT [facility] BUN/Creatinine 14 8 - 20 10/10/2024 7:28 PM EDT [facility] Albumin 3.2(L) 3.4 - 5.0 g/dL 10/10/2024 7:28 PM EDT [facility] Alkaline Phosphatase 99 27 - 136 U/L 10/10/2024 7:28 PM EDT [facility] ALT 25 12 - 78 U/L 10/10/2024 7:28 PM EDT [facility] AST 27 5 - 37 U/L 10/10/2024 7:28 PM EDT [facility] Total Bilirubin 0.4 0.2 - 1.3 mg/dL 10/10/2024 7:28 PM EDT [facility] Protein, Total 7.1 6.4 - 8.2 gm/dL 10/10/2024 7:28 PM EDT [facility] Anion Gap 8(L) 9 - 20 10/10/2024 7:28 PM EDT [facility] A/G Ratio 0.8(L) 1.1 - 2.5 10/10/2024 7:28 PM EDT [facility] Globulin 3.9 1.5 - 4.5 g/dL 10/10/2024 7:28 PM EDT [facility] Osmolality Calc 279.7 mOsm/kg 7:28 PM EDT [facility] eGFR (mL/min/1.73m2) 30(L) >=60 mL/min/1.7 3m2 10/10/2024 7:28 PM EDT [facility] Comment:ESTIMATED GFR IS NOT ACCURATE CREATININE CLEARANCE IN PREDICTING GLOMERULAR FILTRATION RATE. ESTIMATED GFR IS NOT APPLICABLE FOR DIALYSIS PATIENTS. Blood Venipuncture / Unknown 10/10/2024 7:06 PM EDT 10/10/2024 7:06 PM EDT us Brigitte Boone MD LAB BLOOD ORDERABLES Final Re sult [facility] [address] [place] [address] * (ABNORMAL) Hemoglobin A1c (08/09/2024 11:20 AM EDT) Hemoglobin A1C 7.7(H) 4.2 - 6.3 % 08/09/2024 12:43 PM EDT [facility] Comment: Hemoglobin A1C levels are related to mean glucose during the preceding 2-3 months. Less than 7% demonstrates glycemic control in diabetic patients. 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
--- OUTSIDE RECORDS SUMMARY | 2024-12-11 10:16 | XMS_ITS | Clinical Summary ---
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 (ICD-10-CM ) 10/19 Active 10/19 Winifred Jorje Other specified bacterial agents as the cause of diseases classified elsewhere Anaerococcus infection B96.89 (ICD-10-CM ) 10/19 Active 10/19 Winifred Jorje Other specified bacterial agents as the cause of diseases classified elsewhere COPD 67242921 (SNOMED CT) 10/19 Active 10/19 Winifred Jorje Chronic obstructive pulmonary disease MRSA infection 643284832 (SNOMED CT) 10/19 Active 10/19 Winifred Jorje Methicillin resistant Staphylococcus aureus infection Obesity, class 2, BMI 35 to <40 19860115 (SNOMED CT) 10/19 Active 10/19 Winifred Jorje Coronary arteriosclerosis Knee, right, subsequent encounter(s), infection/inf lammatory reaction due to internal joint prosthesis T84.53xD (ICD-10-CM ) 10/19 Active 10/19 Winifred Jorje Infection and inflammatory reaction due to internal right knee prosthesis, subsequent encounter Cellulitis of RLE 402559451 (SNOMED CT) 10/19 Active 10/19 Winifred Recinos Cellulitis of lower limb DM II with diabetic CKD, 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) E11.22 (ICD-10-CM ) 10/19 Active 10/19 Winifred Recinos Type 2 diabetes mellitus with diabetic chronic kidney disease Coronary artery disease (CAD) 59186397 (SNOMED CT) 10/19 Active 10/19 Winifred Recinos Coronary arteriosclerosis Hypertensive heart and CKD, benign, 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) 588447258 (SNOMED CT) 10/19 Active 10/19 Winifred Recinos Chronic diastolic heart failure Medications Medication Instructions Start Date Stop Date Generic Name NDC Provider daptomycin recon soln Cubicin 700mg Iv Q24hrs [facility] 11/09 daptomycin recon kadeem Alvarez RN ceftriaxone recon soln Rocephin 2G IV q24hrs -- [facility] 11/09 ceftriaxone perla Alvarez RN DOXYCYCLINE MONOHYDRATE 100 MG TABS Take 1 tablet by mouth twice a day 11/27 doxycycline monohydrate [id number] David Fulton MD CEFUROXIME AXETIL 250 MG TABS Take 1 tablet by mouth twice a day 11/27 cefuroxime axetil [id number] David Fulton MD ceftriaxone recon soln Rocephin 2G IV q24hrs -- [facility] 11/09 ceftriaxone recon gracielan Becca Landrum daptomycin recon soln Cubicin 700mg Iv Q24hrs [facility] 11/09 daptomycin recon kadeem Alvarez RN TORSEMIDE 100 MG TABS Take 0.5 tablets (50 mg total) by mouth daily. torsemide [id number] [facility] SPIRONOLACTONE 25 MG TABS Take 1 tablet (25 mg total) by mouth daily. spironolactone 93342051932 QIE qieuse r OXYGEN-AIR DELIVERY SYSTEMS MISC 2 liter at night time. . 11/09 OXYGEN-AIR DELIVERY SYSTEMS MISC [facility] ONDANSETRON HCL 4 MG TABS Take 1 tablet (4 mg total) by mouth every 8 (eight) hours as needed for nausea. ondansetron hcl [id number] [facility] MUPIROCIN 2 % OINT 1 Application 3 (three) times daily. mupirocin 37271653738 [facility] VITAMIN D3 50 MCG (2000 UT) TABS Take 1 tablet (2,000 Units total) by mouth daily. cholecalciferol (vitamin d3) 20881701323 [facility] ALLOPURINOL 100 MG TABS Take 1 tablet (100 mg total) by mouth daily. allopurinol 51568517186 [facility] ALBUTEROL SULFATE HFA 108 (90 Base) MCG/ACT AERS Inhale 2 puffs by mouth every 6 (six) hours as needed for shortness of breath or wheezing. 11/09 albuterol sulfate [id number] [facility] ALBUTEROL SULFATE (2.5 MG/3ML) 0.083% NEBU Inhale 3 mLs (2.5 mg total) by nebulization every 4 (four) hours as needed for wheezing or shortness of breath. 10/23 albuterol sulfate [id number] [facility] ACETAMINOPHEN 325 MG TABS Take 2 tablets (650 mg total) by mouth every 6 (six) hours as needed. 10/23 acetaminophen 17970940636 [facility]IE [facility] daptomycin recon soln Cubicin 700mg Iv Q24hrs [facility] 10/23 daptomycin recon soln Skylar Crocker Medications Administered No information available. Allergies, Adverse Reactions, Alerts Allergy Name Reaction Description Start Date Severity Statu s Provider SULFA (SULFONAMIDE ANTIBIOTICS) Mild Active Siomara Dunn PENICILLIN Hives Critical Active Siomara Swe eney OXYCODONE-ASPIRIN Mild Active E lla Dunn OXYCODONE Mild Active Siomara Swezita kodi LEVOFLOXACIN Mild Active Siomara S wecathleen LATEX Dermatitis Critical Active Siomara Pita eney HYOSCYAMINE SULFATE Mild Active Siomara Dunn GLYBURIDE Mild Active Siomara Swee kodi EXENATIDE Mild Active Siomara Swee kodi DOXYCYCLINE Mild Active Siomara Sw eeney CODEINE Hives Critical Active Siomara Swee kodi CEPHALOSPORINS Mild Active Siomara Shaun Results Date Name Value Unit Range Flag [...] status Plan of Care Type Date Detail Pending order BMP Pending order CBC with Differe ntial Pending order C- reactive prot ein Pending order Continue IV anti biotics Pending order Continue oral an tibiotics Pending order Weekly PICC Line Care Pending order Weekly Labs (Con tinue) Pending order New IV antibioti c Procedures Code Procedure Name Date Entry Date G2 Complex E&M visit add-on (G2) CPT-ca Continue IV antibiotics 2024 CPT-Cooral Continue oral antibiotics 10/11/13 CPT-wpc Weekly PICC Line Care 10/30 CPT-cwl Weekly Labs (Continue) 10/30 CPT-sushant New IV antibiotic G2 Complex E&M visit add-on (G2) Vital Signs Date Name Value Unit Description [...]
--- OUTSIDE RECORDS SUMMARY | 2024-12-11 10:17 | XMS_ITS | Encounter Summary ---
Author Organization [facility] ([place], [place], [place], [place]) Address [address] [place] [address] Care Team Providers Care Meat Loiner Name Role Phone Roe, Norma Reynolds APRN Primary Care Provider [phone] Encounter Details Date Type Department Care Team (Late st Contact Info) Description 10/11/2024 Surgery Prep [facility] Surgery Department [address] [place] [address] Kiran Olmos MD [address] [facility] 2nd [place] [address] Social History Tobacco Use Types Packs/Day Years Used Date Smoking Tobacco: Former Cigarettes Smokeless Tobacco: Never Comments:Patient was a 3 ppd smoker x 20 years. Stopped smoking in Alcohol Use Standard Drinks/Week Comments Never 0 (1 standard drink = 0.6 oz pur e alcohol) Utilities Answer Date Recorded In the past 12 months, has t he [employer], gas, oil, or water [employer] threatened to shut off services in your [...] Do you speak a language other than [place]yr[place] at [facility]? No 10/10/2024 Do you want help with [...] documented as of this encounter Care Teams Meat Loiner Relationship Specialty Start Date End Date Norma Au DATA ENTRY ASSISTANT [address] [place] [place] [address] PCP - General Nurse Practitioner 08/23/24 documented as of this encounter
--- OUTSIDE RECORDS SUMMARY | 2024-12-11 10:18 | XMS_ITS | Clinical Summary ---
Author Organization [facility] Address [address] [place] [address] Care Team Providers Care Safety Risk Lead Name Role Phone Carlos Gonzalez MD Primary Care Provid er Encounters Date Type Department Care Team Description 09/28/2024 Lab Requisition [facility] [address] [place] [address] System, Provider Not In, Chronic respiratory failure [...] EDT) N-Terminal, PROBNP, Plasma 793 0 - 3,451 pg/mL 09/28/2024 11:58 PM EDT [facility] Blood Venous blood specimen / Unknown 09/28/2024 11:00 PM EDT 09/28/2024 11:42 PM EDT us Provider Not In System LAB BLOOD ORDERABLES F inal Result [facility] [address] [place] [address] from Last 3 Months Care Teams Safety Risk Lead Relationship Specialty Start Date End Date Carlos Gonzalez MD [address] [place] [address] PCP - General 08/30/20
--- OUTSIDE RECORDS SUMMARY | 2024-12-11 11:15 | XMS_ITS | CCD ---
Author Organization Unknown Care Team Providers Care Salesperson Flowers Name Role Phone Non Engaged, [facility] Primary Care Provider Unav ailable Unavailable Chronic Care Management Unavaila ble Summary Purpose DataExchange Family History Family History data not found Medication Administered No Medication Administered data Reason For Visit No Reason For Visit data Medical Equipment No Medical Equipment data Advance Directives No Advance Directive data
--- OUTSIDE RECORDS SUMMARY | 2024-12-11 11:16 | XMS_ITS | CCD ---
Author Organization Unknown Care Team Providers Care Auto Transmission Technician Name Role Phone Non Engaged, [facility] Primary Care Provider Unav ailable Unavailable Chronic Care Management Unavaila ble Summary Purpose DataExchange Family History Family History data not found Medication Administered No Medication Administered data Reason For Visit No Reason For Visit data Medical Equipment No Medical Equipment data Advance Directives No Advance Directive data
== END 2024-12-11 23:59 | disposition home or self-care (01) ==
PROVIDERS: PCP Nurse Practitioner Family; Visit Provider Pediatrics
DX: M54.50 Low back pain, unspecified (principal); E66.01 Morbid (severe) obesity due to excess calories
CPT/HCPCS: 72100

== ENCOUNTER 2025-01-26 14:47 | Inpatient (IN) | payer MEDICARE, SELFPAY ==
[2025-01-26] VITALS (15 sets, daily range): BP systolic 108–168; BP diastolic 54–107; PULSE 66–91; RESP 16–18; TEMP 36.5–36.7; O2SAT 95–99; BMI 42.0; BMI 46.3
--- NOTE | 2025-01-26 15:25 | XR_ITS ---
PROCEDURE INFORMATION: Exam: XR Right Tibia and Fibula Exam date and time: 01/26/2025 4:11 PM Age: 84 years old Clinical indication: Injury or trauma; Fall; Other: Pain; Additional info: Fall, leg pain TECHNIQUE: Imaging protocol: Radiologic exam of the right tibia and fibula. Views: 2 views. COMPARISON: CR XR FOOT RT 2V 01/26/2025 4:11 PM FINDINGS: Bones/joints: Complete right knee arthroplasty without complications. Subtle step-off deformity in the lateral malleolus distally. No dislocation. Large plantar calcaneal spur. Soft tissues: Diffuse swelling throughout the lower leg. IMPRESSION: 1. Subtle step-off deformity in the lateral malleolus distally. Concerning for a small fracture versus artifact from degenerative changes. Consider correlation with CT. 2. Diffuse swelling throughout the lower leg.
--- NOTE | 2025-01-26 15:25 | XR_ITS ---
PROCEDURE INFORMATION: Exam: XR Right Foot Exam date and time: 01/26/2025 4:11 PM Age: 84 years old Clinical indication: Injury or trauma; Fall; Other: Pain; Additional info: Fall, right foot injury TECHNIQUE: Imaging protocol: Radiologic exam of the right foot. Views: 1 or 2 views. COMPARISON: CR XR TIBIA FIBULA RT 2V 01/26/2025 4:11 PM FINDINGS: Bones/joints: [id number] osteoarthritis throughout the distal interphalangeal joints and 1st metatarsophalangeal joint. Several linear lucencies at the base of the little toe middle phalanx. No dislocation. Large plantar calcaneal spur and small posterior calcaneal enthesophyte. Soft tissues: Severe soft tissue swelling in the dorsal foot. IMPRESSION: 1. Several linear lucencies at the base of the little toe middle phalanx. Questionable for superimposition artifact or a minimally displaced fracture. 2. Severe soft tissue swelling in the dorsal foot.
--- NOTE | 2025-01-26 15:25 | CT_ITS ---
PROCEDURE INFORMATION: Exam: CT Cervical Spine Without Contrast Exam date and time: 01/26/2025 4:03 PM Age: 84 years old Clinical indication: Injury or trauma; Fall; Other: Pain TECHNIQUE: Imaging protocol: Computed tomography of the cervical spine without contrast. Radiation optimization: All CT scans at this facility use at least one of these dose optimization techniques: automated exposure control; mA and/or kV adjustment per patient size (includes targeted exams where dose is matched to clinical indication); or iterative reconstruction. COMPARISON: CT CERVICAL SPINE WO CON 11/25/2024 11:52 PM FINDINGS: Bones: No acute fracture. Normal alignment. No significant disc bulge or herniation. No severe spinal canal stenosis. No significant neural foraminal narrowing. Disc space narrowing and small osteophytes from C4-C5 through C6-C7. Facet hypertrophy at multiple levels. Fusion of the C2-C3 facet joints Lungs: Lung apices are normal. Soft tissues: No paraspinal or prevertebral soft tissue masses. Craniocervical and atlantoaxial ligament calcifications. IMPRESSION: 1. No acute findings in the cervical spine. 2. Multilevel degenerative disc disease and facet hypertrophy in the cervical spine.
--- NOTE | 2025-01-26 15:25 | XR_ITS ---
PROCEDURE INFORMATION: Exam: XR Right Knee Exam date and time: 01/26/2025 4:11 PM Age: 84 years old Clinical indication: Injury or trauma; Fall; Other: Pain; Additional info: Fall, leg pain TECHNIQUE: Imaging protocol: Radiologic exam of the right knee. Views: 3 views. COMPARISON: CR XR FOOT RT 2V 01/26/2025 4:11 PM FINDINGS: Bones/joints: Complete right knee arthroplasty in adequate alignment. No complications. Hardware is well seated. No acute fracture or dislocation. No significant joint effusion. Soft tissues: Normal. IMPRESSION: No acute findings.
--- NOTE | 2025-01-26 15:25 | XR_ITS ---
PROCEDURE INFORMATION: Exam: XR Right Ankle Exam date and time: 01/26/2025 4:11 PM Age: 84 years old Clinical indication: Injury or trauma; Fall; Other: Pain; Additional info: Fall, leg pain TECHNIQUE: Imaging protocol: Radiologic exam of the right ankle. Views: 3 or more views. COMPARISON: CR XR TIBIA FIBULA RT 2V 01/26/2025 4:11 PM FINDINGS: Bones/joints: Cortical step-off deformity in the lateral malleolus. Mild osteoarthritis of the tibiotalar joint with chronic calcifications inferior to the medial malleolus. Large plantar calcaneal spur and small posterior calcaneal enthesophyte. No dislocation. Soft tissues: Severe ankle and dorsal foot swelling. IMPRESSION: 1. Cortical step-off deformity in the lateral malleolus. Questionable for degenerative changes or a displaced fracture. Consider correlation with noncontrast CT. 2. Severe ankle and dorsal foot swelling.
--- NOTE | 2025-01-26 15:25 | XR_ITS ---
PROCEDURE INFORMATION: Exam: XR Pelvis Exam date and time: 01/26/2025 4:11 PM Age: 84 years old Clinical indication: Injury or trauma; Fall; Other: Pain; Additional info: Fall, left hip/leg pain TECHNIQUE: Imaging protocol: Radiologic exam of the pelvis. Views: 1 or 2 view. COMPARISON: CT BONY PELVIS 11/26/2024 12:26 AM FINDINGS: Bones/joints: Moderate/severe bilateral hip osteoarthritis. No acute fracture or dislocation. Soft tissues: Unremarkable. Vasculature: Pelvic phleboliths. IMPRESSION: No acute findings.
--- NOTE | 2025-01-26 15:25 | CT_ITS ---
PROCEDURE INFORMATION: Exam: CT Head Without Contrast Exam date and time: 01/26/2025 4:01 PM Age: 84 years old Clinical indication: Injury or trauma; Fall; Other: Pain TECHNIQUE: Imaging protocol: Computed tomography of the head without contrast. Radiation optimization: All CT scans at this facility use at least one of these dose optimization techniques: automated exposure control; mA and/or kV adjustment per patient size (includes targeted exams where dose is matched to clinical indication); or iterative reconstruction. COMPARISON: CT HEAD/BRAIN WO CON 06/11/2024 10:03 AM FINDINGS: Brain: No hemorrhages. Low-density infarction or postsurgical myelomalacia in the left cerebellum. Extensive low-density throughout the white matter of both cerebral hemispheres. No midline shift. Cerebral ventricles: Mild ventriculomegaly is unchanged. Age appropriate. Paranasal sinuses: Visualized sinuses are well aerated. No fluid levels. Mastoid air cells: Visualized mastoid air cells are well aerated. Bones: Craniectomy defect in the left posterolateral occipital bone. Soft tissues: No abnormalities. IMPRESSION: 1. No acute intracranial abnormalities. No interval changes since 06/11/2024. 2. 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 3. Severe white matter microvascular disease.
--- NOTE | 2025-01-26 15:25 | CT_ITS ---
PROCEDURE INFORMATION: Exam: CT Lumbar Spine Without Contrast Exam date and time: 01/26/2025 4:10 PM Age: 84 years old Clinical indication: Injury or trauma; Fall; Other: Pain TECHNIQUE: Imaging protocol: Computed tomography of the lumbar spine without contrast. Radiation optimization: All CT scans at this facility use at least one of these dose optimization techniques: automated exposure control; mA and/or kV adjustment per patient size (includes targeted exams where dose is matched to clinical indication); or iterative reconstruction. COMPARISON: CT LUMBAR SPINE WO CON 06/11/2024 10:09 AM FINDINGS: Bones/joints: [id number]-[id number] multilevel disc space narrowing with vacuum phenomenon. Preserved vertebral body heights. Small multilevel anterior osteophytes. Moderate facet joint hypertrophy. Spinal canal is patent. No high-grade neural foraminal stenosis. No acute fracture or dislocation. Lungs: No acute findings in the included segments of the abdomen or lung bases. Soft tissues: Unremarkable. IMPRESSION: No acute lumbar spine fracture.
--- NOTE | 2025-01-26 15:25 | XR_ITS ---
PROCEDURE INFORMATION: Exam: XR Right Femur Exam date and time: 01/26/2025 4:11 PM Age: 84 years old Clinical indication: Injury or trauma; Fall; Other: Pain; Additional info: Fall, pain in right leg TECHNIQUE: Imaging protocol: Radiologic exam of the right femur. Views: 2 views. COMPARISON: CT BONY PELVIS 11/26/2024 12:26 AM FINDINGS: Bones/joints: Moderate/severe right hip joint osteoarthritis. Complete right knee arthroplasty without complications. No acute fracture or dislocation. Soft tissues: Unremarkable. IMPRESSION: No acute findings.
--- NOTE | 2025-01-26 15:25 | CT_ITS ---
PROCEDURE INFORMATION: Exam: CT Thoracic Spine Without Contrast Exam date and time: 01/26/2025 4:07 PM Age: 84 years old Clinical indication: Injury or trauma; Fall; Other: Pain TECHNIQUE: Imaging protocol: Computed tomography of the thoracic spine without contrast. Radiation optimization: All CT scans at this facility use at least one of these dose optimization techniques: automated exposure control; mA and/or kV adjustment per patient size (includes targeted exams where dose is matched to clinical indication); or iterative reconstruction. COMPARISON: CT CERVICAL SPINE WO CON 01/26/2025 4:03 PM FINDINGS: Bones/joints: Normal anatomic alignment. Moderate multilevel and symmetric disc space narrowing. Small multilevel anterior osteophytes. Vertebral body heights are well preserved. The spinal canal is patent. No acutely displaced fractures. No joint dislocation. No aggressive osseous lesions. Soft tissues: Unremarkable. Thyroid: Heterogeneous and enlarged thyroid gland. Nonemergent ultrasound follow-up is recommended. Intraperitoneal space: No acute findings in the included segments of the chest and upper abdomen. IMPRESSION: No acute thoracic spine fracture.
--- NOTE | 2025-01-26 15:49 | ED_ITS ---
Discharge Plan Disposition Patient Disposition: Admitted Condition: Fair Clinical Impressions Clinical Impression: CHF (congestive heart failure), NSTEMI (non-ST elevated myocardial infarction), Ankle fracture, right, Volume overload Discharge ED Provider: Pelon Bowling Adult HPI General Chief complaint: Extremity Injury, Lower Stated complaint: Ankle pain Time Seen by Provider: 01/26/25 15:10 Mode of Arrival: EMS Source of Information: Patient and EMS Description of Symptoms (Recalled from ER Triage Doc. by RN): PATIENT PRESENTS TO ED FOR RIGHT ANKLE PAIN S/P 2 FALLS TODAY. STATES SHE WAS GETTING OUT OF THE SHOWER AND THE ANKLE ROLLED ON HER. PATIENT NORMALLY WALKS WITH WALKER, BUT HAS HAD FREUQUENT FALLS LATELY. RECEIVED 100 MCG FENTANYL EN ROUTE. History of Present Illness HPI narrative: This is an 84-year-old female patient, with past medical history of hypertension, diabetes, coronary artery disease, COPD, prior tobacco abuse, who is presenting to the emergency department today for evaluation of a fall. Patient states that over the duration of the last several months she has had worsening lower extremity edema. This has been uncontrollable at home and has interfered with her ability to walk and cause her to have multiple falls. She states that she fell 1 time this morning, and was able to get herself back up to her feet. She then states that later in the afternoon she was taking a shower and she was trying to lift her leg up to get over the edge of the tub and she subsequently fell inside the tub. She landed on her right hip and twisted her right ankle. She does not report any overt head trauma or loss of consciousness. She states that she is having significant pain over the right hip and right lower extremity. Related Data Home Medications ?Medication ?Instructions ?Recorded ?Confirmed tramadol 50 mg tablet 50 mg PO Q6HP PRN Severe Chapis n 11/26/24 01/26/25 (Scale Score 7-10) Previous Rx's ?Medication ?Instructions ?Recorded albuterol sulfate 90 mcg/actuation 4 inh inhalation Q4 HP PRN 10/04/24 aerosol inhaler shortness of breath or wheez ing 30 days #8.5 grams allopurinol 100 mg tablet 100 mg PO DAILY 30 days #30 tabs 10/04/24 cholecalciferol (vitamin D3) 50 50 mcg PO DAILY 30 day s #30 tabs 10/04/24 mcg (2,000 unit) chewable tablet fluticasone 500 mcg-salmeterol 50 1 inh inhalation BID RT #60 ea 10/04/24 mcg/dose blistr powdr for inhalation (Advair Diskus) insulin aspart U-100 100 unit/mL 10 unit (0.1 mL) SQ T ID 30 days #9 10/04/24 (3 mL) subcutaneous pen (Novolog mL FlexPen U-100 Insulin aspart) insulin glargine 100 unit/mL (3 25 unit (0.25 mL) SQ B ID 30 days 10/04/24 mL) subcutaneous pen (Lantus #15 mL Solostar U-100 Insulin) spironolactone 25 mg tablet 25 mg PO DAILY 30 days #30 tabs 10/04/24 torsemide 100 mg tablet 50 mg (1/2 x 100 mg) PO ANAMIKA Y 30 10/04/24 days #15 tabs Allergies Allergy/AdvReac Type Severity Reaction Status Date / Time Penicillins Allergy Intermediate Unknown Verified 10/04/24 10:56 allergy reaction codeine (CODEINE) Allergy Mild Unknown Verified 10/04/24 10:56 allergy reaction iodine (IODINE) Allergy Mild Unknown Verified 10/04/24 10:56 allergy reaction latex (LATEX) Allergy Mild Unknown Verified 10/04/24 10:56 allergy reaction oxycodone (OXYCODONE) Allergy Mild Unknown Verified 10/04/24 10:56 allergy reaction Sulfa (Sulfonamide Allergy Mild Unknown Verified 10/04/24 10:56 Antibiotics) (SULFA allergy (SULFONAMIDE ANTIBIOTICS)) reaction Cephalosporins Allergy Unknown Verified 10/04/24 10:56 allergy reaction doxycycline Allergy Unknown Verified 10/04/24 10:56 allergy reaction exenatide (From [place]) Allergy Unknown Verified 10/04/24 10:56 allergy reaction glyburide Allergy Unknown Verified 10/04/24 10:56 allergy reaction hyoscyamine (From Levbid) Allergy Unknown Verified 10/04/24 10:56 allergy reaction PFSH PFSH Disclaimer: The information contained in this section may have been updated after the patient was seen, as this information can be updated by other users. Medical History (Updated 01/27/25 @ 01:03 by Pelon Bowling DO) Elevated brain natriuretic peptide (BNP) level Syncope, near Hypoglycemia Fall Fall Self care deficit due to hearing impairment Obesity (BMI 30-39.9) History of smoking 25-50 pack years Stopped smoking with greater than 20 pack year history Asthma MARCELA (obstructive sleep apnea) Diabetes Brain tumor Diastolic dysfunction CAD (coronary artery disease) HTN (hypertension) COPD (chronic obstructive pulmonary disease) Surgical History Status post right knee replacement H/O cardiac catheterization H/O: hysterectomy History of appendectomy Hx of tonsillectomy History of cholecystectomy H/O oophorectomy Family History Other Hypertension Stroke Social History Smoking Status: Never smoker second hand exposure: No alcohol intake: never substance use type: denies use current occupational status: retired Travel in the last 8 weeks?: None household members: none housing: house caffeine: No Have you lived/traveled outside [place] in past 30 days?: No Contact w/someone who lives/traveled outside US past 30 days?: No Exposure to someone with infectious disease in past 14 days?: No Do you have a fever (greater than 100.4 F or 38 C)?: No Have you tested positive for COVID-19?: No Exposed to someone with COVID-19 in past 14 days?: No Do you have a sore throat?: No Do you have a cough?: No Do you have any weakness?: No Do you have any diarrhea?: No Are you experiencing any unusual bleeding?: No Do you have any muscle aches/pain?: No Do you have any abdominal pain?: No Are you experiencing loss of taste or smell?: No Other Medical History Have you received the Flu Vaccine for this season: No Have you received the Pneumonia Vaccine: No ROS Obtained: Yes Systems reviewed as appropriate & no additional complaints except as documented Physical Exam General General appearance: other (See MDM) Respiratory Respiratory exam: Present other (See MDM) Cardiovascular Cardiovascular exam: Present other (See MDM) Neurological Exam Neurological exam: Present other (See MDM) Medical Decision Making Medical Records Medical records reviewed: Yes I reviewed the patient's medical records. Screening: Per USPSTF and CDC recommendations, given the prevalence of disease in our region, it is our hospital?s policy to screen for HIV and viral Hepatitis for all patients aged 18 and over and those with ongoing risk factors. Oneal Inquiry Pt receiving controlled substance: No Oneal was queried for this patient: No Vital Signs: 01/26/25 14:52 01/26/25 14:52 01/26/25 15:00 Temperature 97.7 F 97.7 F Temperature Source Oral Pulse Rate 75 66 Pulse Rate [Left] 75 Respiratory Rate 18 18 Blood Pressure 132/107 H 152/75 H Blood Pressure [Right Arm] 132/107 H Blood Pressure Mean Blood Pressure Mean [Right Arm] 115 02 Sat by Pulse Oximetry 96 96 97 Oxygen Delivery Method Room Air Oxygen Flow Rate (LPM) 01/26/25 15:30 01/26/25 16:31 01/26/25 16:47 Temperature Temperature Source Pulse Rate 71 81 82 Pulse Rate [Left] Respiratory Rate Blood Pressure 152/79 H 150/85 H 150/85 H Blood Pressure [Right Arm] Blood Pressure Mean 104 Blood Pressure Mean [Right Arm] 02 Sat by Pulse Oximetry 96 96 98 Oxygen Delivery Method Room Air Room Air Oxygen Flow Rate (LPM) 01/26/25 17:01 01/26/25 17:30 01/26/25 18:00 Temperature Temperature Source Pulse Rate 82 79 91 H Pulse Rate [Left] Respiratory Rate Blood Pressure 137/54 L 158/65 H 163/78 H Blood Pressure [Right Arm] Blood Pressure Mean Blood Pressure Mean [Right Arm] 02 Sat by Pulse Oximetry 95 98 96 Oxygen Delivery Method Room Air Room Air Room Air Oxygen Flow Rate (LPM) 01/26/25 18:30 01/26/25 19:00 01/26/25 19:31 Temperature Temperature Source Pulse Rate 71 80 86 Pulse Rate [Left] Respiratory Rate 16 17 18 Blood Pressure 168/78 H 165/74 H 108/76 L Blood Pressure [Right Arm] Blood Pressure Mean 89 90 84 Blood Pressure Mean [Right Arm] 02 Sat by Pulse Oximetry 99 99 98 Oxygen Delivery Method Nasal Cannula Nasal Cannula Oxygen Flow Rate (LPM) 2 2 2 01/26/25 20:00 01/26/25 21:21 Temperature 98 F Temperature Source Pulse Rate 83 85 Pulse Rate [Left] Respiratory Rate 17 17 Blood Pressure 150/79 H 123/87 Blood Pressure [Right Arm] Blood Pressure Mean 102 Blood Pressure Mean [Right Arm] 02 Sat by Pulse Oximetry 98 Oxygen Delivery Method Nasal Cannula Nasal Cannula Oxygen Flow Rate (LPM) 2 2 Lab Data Lab Results 01/26/25 16:45: WBC 9.9, RBC 4.86, Hgb 14.2, Hct 43.0, MCV 88.5, MCH 29.2, MCHC 33.0, RDW 13.4, Plt Count 256, MPV 8.9, Neut % (Auto) 82.4 H, Lymph % (Auto) 9.6 L, [place] % (Auto) 7.3, Eos % (Auto) 0.2, Baso % (Auto) 0.2, Neut # (Auto) 8.2 H, Lymph # (Auto) 1.0, [place] # (Auto) 0.7, Eos # (Auto) 0.0, Baso # (Auto) 0.0, PT 12.1, INR 1.10, Sodium 138, Potassium 4.6, Chloride 99, Carbon Dioxide 31 H, Anion Gap 12.6, BUN 33 H, Creatinine 1.00, Estimated Creat Clear 35, Estimated GFR 53 L, Est GFR ( Amer) 64, Glucose 38 L*, Calcium 9.4, Total Bilirubin 0.8, AST 47 H, ALT 26, Alkaline Phosphatase 101, Troponin I 0.09 H, NT-Pro-B Natriuret Pep 3760 H, Total Protein 7.0, Albumin 4.0, Globulin 3.0, Albumin/Globulin Ratio 1.3 01/26/25 16:50: VBG pH 7.32, VBG pCO2 59.0 H, VBG pO2 38.6, VBG HCO3 29.4, VBG Total CO2 31.2 H, VBG O2 Saturation 69.4, VBG Base Excess 3.2 H, VBG Lactic Acid 2.1 H 01/26/25 20:30: Lactate 1.2, Troponin I 0.11 H 01/26/25 16:45 01/26/25 16:45 Orders (Tests/Meds): ED MEDICATIONS Generic Name Dose Route Start Last Admin Trade Name Freq PRN Reason Stop Dose Admin Acetaminophen 650 mg 01/26/25 21:35 Acetaminophen 325mg Tab PO 02/25/25 21:34 Q4HP PRN Fever or Mild Pain (1-3) Hydrocodone Bitart/Acetaminophen 1 tab 01/26/25 21:35 Hydrocodone/Apap 5/325 Mg Tablet PO 02/25/25 21:34 Q4HP PRN Mild to Moderate Pain (1-6) Albuterol/Ipratropium 3 ml 01/27/25 00:00 01/26/25 23:20 Ipratropium/Albuterol 3 Ml Neb IH 02/26/25 00:00 3 ml Q6RT KISHOR Administration Enoxaparin Sodium 40 mg 01/26/25 22:00 01/26/25 22:50 Enoxaparin 40mg/0.4ml Syringe SUBCUT 02/25/25 21:59 40 mg DAILY KISHOR Administration Furosemide 40 mg 01/26/25 22:00 01/26/25 22:50 Furosemide 40mg/4ml Vial IV 02/25/25 21:59 40 mg BIDL KISHOR Administration Insulin Human Lispro 0 unit 01/27/25 06:00 Humalog 100 Units/Ml 10ml Vial (Ssi) SUBCUT 02/26/25 05:59 ACHS KISHOR Protocol Morphine Sulfate 2 mg 01/26/25 21:35 01/26/25 23:55 Morphine 2mg/Ml Syringe IV 02/25/25 21:34 2 mg Q4HP PRN Administration Severe Pain (7-10) Ondansetron HCl 4 mg 01/26/25 21:35 Ondansetron 4mg/2ml Vial IV 02/25/25 21:34 Q8HP PRN Nausea Discontinued Medications Generic Name Dose Route Start Last Admin Trade Name Freq PRN Reason Stop Dose Admin Aspirin 325 mg 01/26/25 18:55 01/26/25 19:39 Aspirin 325mg Tablet PO 01/26/25 18:56 325 mg ONCE ONE Administration Dextrose 50 ml 01/26/25 17:21 01/26/25 17:25 Dextrose 50% 50ml Syringe (Crash Cart) IVP 01/26/25 17:22 50 ml ONCE ONE Administration Ketorolac Tromethamine 15 mg 01/26/25 15:27 01/26/25 15:50 Ketorolac 15mg/Ml Vial IV 01/26/25 15:28 15 mg ONCE ONE Administration Ondansetron HCl 4 mg 01/26/25 15:27 01/26/25 15:50 Ondansetron 4mg/2ml Vial IV 01/26/25 15:28 4 mg ONCE ONE Administration ORDERS Category Date Time Status CT cervical spine wo con Stat Cat Scan 01/26/25 15:[address] head/brain wo con Stat Cat Scan 01/26/25 15:[address] lumbar spine wo con Stat Cat Scan 01/26/25 15:[address] thoracic spine wo con Stat Cat Scan 01/26/25 15:25 Completed Ankle XR -Right minimum 3 Views [XR ankle RT min 3V] Exams 01/26/25 15:25 Completed Stat CXR --portable [XR chest portable] Stat Exams 01/26/25 15:54 Completed Femur XR right 2 views [XR femur RT 2V] Stat Exams 01/26/25 15:25 Completed Fibula/tibia XR right 2 views [XR tibia fibula RT 2V] Exams 01/26/25 15:25 Completed Stat Foot XR right 2 views [XR foot RT 2V] Stat Exams 01/26/25 15:25 Completed Knee XR right 3 views [XR knee RT 3V] Stat Exams 01/26/25 15:25 Completed XR pelvis 1-2V Stat Exams 01/26/25 15:25 Completed BNP [NT Pro Brain Natriuretic Pep.] Stat Lab 01/26/25 16:45 Completed CBC w/Auto Diff [Complete Blood Count Auto Diff] Stat Lab 01/26/25 16:45 Completed CMP [Comprehensive Metabolic Panel] Stat Lab 01/26/25 16:45 Completed PT INR [Prothrombin Time INR] Stat Lab 01/26/25 16:45 Completed Troponin I Q3H Lab 01/26/25 20:30 Completed Troponin I Q3H Lab 01/26/25 23:30 Ordered Troponin I Stat Lab 01/26/25 16:45 Completed VBG [Venous Blood Gas] Stat RT 01/26/25 16:50 Completed ECG Data Tracing #1: I reviewed this ECG and interpreted as documented below: Past EKG personally interpreted by me demonstrates normal sinus rhythm at a rate of 75 bpm, left axis, no GA prolongation, wide QRS with left bundle branch block morphology, no QTc prolongation. No STEMI negative Sgar[place] Medical Decision Narrative: In summary, this is an 84-year-old female patient who is presenting to the emergency department today for evaluation after a fall. Patient is chiefly complaining of pain in her right hip as well as her right foot and ankle. She has a past medical history of hypertension, hyperlipidemia, diabetes, CAD, and COPD on no oxygen at home. On initial evaluation of the patient they were resting comfortably in no acute distress and nontoxic in appearance. They are hemodynamically stable, saturating well room air, and are neurologically intact. On physical examination the patient has diminished breath sounds bilaterally. She has no external signs of head trauma, no C-spine tenderness. She does have tenderness along the thoracic and lumbar spine diffusely. There is no step-offs appreciable. She has no tenderness to the anterior chest wall or anterior abdominal wall. Pelvis is stable. She has significant tenderness to palpation over the right femur/hip as well as the right ankle and right foot. She has profound lower extremity pitting edema bilaterally. Differential diagnosis includes right foot fracture, right tib-fib fracture, right hip fracture, right femur fracture, cervical spine fracture, lumbar spine fracture, thoracic spine fracture, intracranial hemorrhage, ACS/MT, heart failure/patient, among others Workup is initiated with hematologic labs as well as CT scans of the head and axial spine and x-rays of the hips and right lower extremity. Initial interventions included 30 mg of Toradol and 4 mg of Zofran for symptomatic control. His CT scans were personally interpreted by me and demonstrate no large intracranial hemorrhages or bony malalignment/fracture of the spines. Official radiology read is in agreement and states that there is no acute abnormality. X-rays of the right lower extremity were interpreted by me and demonstrate a right lateral malleolus fracture. Official radiology read is in agreement. This correlates clinically on exam she is markedly tender over the lateral malleolus. I did discuss this case directly with Dr. Laura of the orthopedic surgery service. He has recommended that we place the patient in a walking boot and have her follow-up in the outpatient setting for this fracture. Additionally, the patient had diminished breath sounds bilaterally and developed an ox requirement while in the emergency department so I felt that it was imperative to assess her for heart and lung pathology. Labs were personally interpreted by me and demonstrates no leukocytosis or actionable anemia. Coagulation studies are normal. Her VBG shows mild hypercapnia with a pCO2 of 59 and a compensated pH of 7.32. CMP shows no significant electrolyte derangements and no evidence of acute kidney injury. Her glucose did come back low at 38 so we treated her with an amp of D50. The patient's troponin was 0.09 initially and her BNP was 3760 which I do feel is consistent with an NSTEMI in the setting of a heart failure exacerbation which correlates clinically with the degree of profound peripheral edema on exam. Patient's delta troponin came back elevated at 0.11, furthering my suspicion for NSTEMI. I have treated the patient with 325 mg of aspirin. Given that the patient is having frequent falls secondary to the peripheral edema she has in her lower extremities and is experiencing an NSTEMI with heart failure exacerbation and volume overload I do feel that she necessitates admission to the hospital. Therefore I had an interactive discussion with the internal medicine service who agreed to evaluate the patient the emergency department. After our discussion and their evaluation have agreed to admit the patient to their service and accept primary responsibility patient move forward. Critical Care Critical Care Time Critical Care Time: No
[2025-01-26] MEDS: KETOROLAC 15MG/ML VIAL 15 MG IV (15:50)
[2025-01-26] MEDS: ONDANSETRON 4MG/2ML VIAL 4 MG IV (15:50)
--- NOTE | 2025-01-26 15:54 | XR_ITS ---
PROCEDURE INFORMATION: Exam: XR Chest Exam date and time: 01/26/2025 4:11 PM Age: 84 years old Clinical indication: Injury or trauma; Fall; Other: Pain; Additional info: Fall, diminished breath sounds TECHNIQUE: Imaging protocol: Radiologic exam of the chest. Views: 1 view. COMPARISON: CR XR CHEST PORTABLE 04/04/2022 3:42 PM FINDINGS: Lungs: Unremarkable. No consolidation. Pleural spaces: Unremarkable. No pleural effusion. No pneumothorax. Heart/Mediastinum: [id number] cardiomegaly. Bones/joints: Unremarkable. IMPRESSION: No acute findings.
[2025-01-26 16:54] LABS: Hematocrit 43.0 % (37.0-47.0); Hemoglobin 14.2 g/dL (12.2-16.2); Immature Granulocytes % 0.3 %; Mean Corpuscular HGB Conc 33.0 g/dL (31.8-35.4); Mean Corpuscular Hemoglobin 29.2 pg (27.0-31.2); Mean Corpuscular Volume 88.5 fl (81-99); Nucleated Red Blood Cells % 0 %; Platelet Count 256 K/mm3 (142-424); Red Blood Count 4.86 M/mm3 (4.20-5.40); Red Cell Distribution Width-SD 43.4 fL; White Blood Count 9.9 K/mm3 (4.8-10.8)
[2025-01-26 16:55] LABS: VBG HCO3 29.4 mmol/L (23-30); VBG PH 7.32 mmol/L (7.31-7.41); VBG PO2 38.6 mmol/L (28-40)
[2025-01-26 17:12] LABS: Alanine Aminotransferase 26 U/L (12-78); Albumin Level 4.0 g/dl (3.5-5.0); Albumin/Globulin Ratio 1.3 (1.1-1.8); Alkaline Phosphatase 101 U/L (38-126); Anion Gap 12.6 mEq/L (5-15); Aspartate Amino Transferase 47 U/L (14-36); Bilirubin,Total 0.8 mg/dl (0.2-1.3); Blood Urea Nitrogen 33 mg/dl (7-17); Calcium 9.4 mg/dl (8.4-10.2); Carbon Dioxide 31 mmol/L (22.0-30.0); Chloride 99 mmol/L (98-107); Creatinine Clearance Estimated 35 mL/min (50-200); Creatinine,Serum 1.00 mg/dl (0.52-1.04); Estimated Glomerular Filt Rate 53 ml/min (>60); GFR (African American) 64 ML/MIN (>60); Globulin 3.0 g/dL (1.3-3.2); Potassium 4.6 mmoL/L (3.5-5.1); Sodium 138 mmol/L (136-145); Total Protein,Serum 7.0 g/dl (6.3-8.2)
[2025-01-26 17:14] LABS: Glucose 38 mg/dl (74-100); INR 1.10 (0.9-1.1); Prothrombin Time 12.1 seconds (10.1-12.5)
[2025-01-26 17:16] LABS: Lactate Venous 2.1 mmol/L (0.4-2.0); VBG PCO2 59.0 mmol/L (35-51)
--- NOTE | 2025-01-26 17:21 | PC.NURSE ---
critical results called from LAB - glucose 38 critical results called from RESP - CO2 59; glucose 31 amp d50 ordered, orange juice and apple juice given.
[2025-01-26 17:24] LABS: NT Pro Brain Natriuretic Pep. 3760 pg/mL (0-450); Troponin I 0.09 ng/ml (0.00-0.034)
[2025-01-26] MEDS: DEXTROSE 50% 50ML SYRINGE (CRASH CART) 50 ML IVP (17:25)
--- NOTE | 2025-01-26 17:27 | PC.NURSE ---
call made for lunch tray
--- NOTE | 2025-01-26 18:53 | PC.NURSE ---
called lab to stick for trop
--- NOTE | 2025-01-26 19:00 | ECG_ITS ---
APPROVED REPORT Exam: Resting ECG HR:75 bpm ECG Measurements Heart Rate 75 AXES PA 169 P 55 QRSd 144 QRS -37 QT 420 T 99 QTc 448 Conclusion Sinus rhythm with sinus arrhythmia Left bundle branch block Negative Tamia Electronically signed by : Pelon Bowling, 01/27/2025 01:35:52
[2025-01-26] MEDS: ASPIRIN 325MG TABLET 325 MG PO (19:39)
[2025-01-26 21:02] LABS: Troponin I 0.11 ng/ml (0.00-0.034)
[2025-01-26 21:15] LABS: Reflex Lactic Add Lactic Reflex
[2025-01-26 21:30] LABS: Lactic Acid Follow Up (RFLX 1) 1.2 mmol/L (0.7-2.1)
--- NOTE | 2025-01-26 21:34 | PC.NURSE ---
PT arrived to the floor @ 2133
--- NOTE | 2025-01-26 21:41 | P.HP_ITS ---
<Statement entered by Beau Kate MD - 01/30/25 12:39> Agree with the plan of care as outlined by the PIPELINE EXECUTIVE below. History of Present Illness *Admission Date: 01/26/25 *Reason for visit:: Fall *History of present illness: This is a 4-year-old female who has a past medical history significant for chronically elevated troponin, falls, obesity, asthma, obstructive sleep apnea, diastolic dysfunction, coronary artery disease, hypertension, and COPD w ho presents with a chief complaint of fall with pain to her right ankle post fall. Due to patient's symptoms, she presented to the emergency room for evaluation. While in the emergency room, patient underwent trauma scan and her right lower extremity was found to have a malleolus fracture. Patient's case was discussed with Dr. Mares who recommended patient patient on lower extremity boot. Patient did have an acute need for supplemental oxygen and informed ER provider that she has been having increased swelling to her lower extremities. As a result, patient has been admitted for further management. During my evaluation of the patient, patient reports that she has had multiple falls over the past several months. She reports that she fell this morning and was able to get up. Then after getting out of the shower she stepped wrong on her right foot and fell again. Post fall patient had pain to her right hip ankle. She is reporting no loss of consciousness but states she has been u nsteady on her feet for some time. Patient states that she has been having increased swelling to her lower extremities which she believes is adding to her unsteady gait. She does not know if she has gained any weight. Patient reports her primary wiring technician is Dr. Adeel Klein she does not recall that she has had a 2D echo recently. Moreover, she does not report having a left heart cath or ischemic workup. She is currently denying any chest pain, lightheadedness, dizziness, fever, chills, rigors, nausea, vomiting, but or diarrhea. Chest x- ray was negative for any acute cardiopulmonary process. Tibia/fibula x-ray revealed a subtle step-off deformity in the lateral malleolus distally concerning for a small fracture and diffuse swelling throughout the lower extremity. CT scan of the thoracic spine was negative for any thoracic spine process. Pelvis were negative for any acute findings. CT scan of the lumbar spine was negative for any acute lumbar spine fracture. X-rays of the knee was negative for any acute findings. Additional scans were also without any abnormal findings. Additional pertinent labs obtained including neutrophils 82.4%, blood gases revealed pCO2 of 59 HCO3 of 31.2, venous lactic 2.1, carbon oxide of 31, BUN of 33, GFR 53, blood glucose of 38, AST of 47, initial troponin 0.09 and it trended up to 0.11 (patient has chronically elevated troponin), and patient's BNP was 3760. [facility] Disclaimer: The information contained in this section may have been updated after the patient was seen, as this information can be updated by other users. Medical History (Updated 01/26/25 @ 21:55 by Andrzej Youssef APRN) Elevated brain natriuretic peptide (BNP) level Syncope, near Hypoglycemia Fall Fall Self care deficit due to hearing impairment Obesity (BMI 30-39.9) History of smoking 25-50 pack years Stopped smoking with greater than 20 pack year history Asthma MARCELA (obstructive sleep apnea) Diabetes Brain tumor Diastolic dysfunction CAD (coronary artery disease) HTN (hypertension) COPD (chronic obstructive pulmonary disease) Surgical History Status post right knee replacement H/O cardiac catheterization H/O: hysterectomy History of appendectomy Hx of tonsillectomy History of cholecystectomy H/O oophorectomy Family History Other Hypertension Stroke Social History Smoking Status: Never smoker second hand exposure: No alcohol intake: never substance use type: denies use current occupational status: retired Travel in the last 8 weeks?: None household members: none housing: house caffeine: No Have you lived/traveled outside [place] in past 30 days?: No Contact w/someone who lives/traveled outside US past 30 days?: No Exposure to someone with infectious disease in past 14 days?: No Do you have a fever (greater than 100.4 F or 38 C)?: No Have you tested positive for COVID-19?: No Exposed to someone with COVID-19 in past 14 days?: No Do you have a sore throat?: No Do you have a cough?: No Do you have any weakness?: No Do you have any diarrhea?: No Are you experiencing any unusual bleeding?: No Do you have any muscle aches/pain?: No Do you have any abdominal pain?: No Are you experiencing loss of taste or smell?: No Other Medical History Have you received the Flu Vaccine for this season: No Have you received the Pneumonia Vaccine: No Review of Systems Review of Systems Review of systems:: pertinent systems reviewed and negative unless documented below Constitutional Constitutional: Reports weakness Eyes Eyes: Reports system reviewed and no additional complaints, except as documented ENT Ears, Nose, Mouth, and Throat: Reports system reviewed and no additional complaints, except as documented *Cardiovascular Cardiovascular: Reports system reviewed and no additional complaints, except as documented and Reports dyspnea *Respiratory Respiratory: Reports dyspnea *Gastrointestinal Gastrointestinal: Reports system reviewed and no additional complaints, except as documented *Genitourinary Genitourinary: Reports system reviewed and no additional complaints, except as documented *Musculoskeletal Musculoskeletal: Reports abnormal gait Integumentary/Breasts Skin/Breast: Reports skin swelling *Neurologic Neurologic: Reports abnormal gait and Reports weakness Psychiatric Psychiatric: Reports system reviewed and no additional complaints, except as documented Endocrine Endocrine: Reports system reviewed and no additional complaints, except as documented Hematologic/Lymphatic Hematologic/Lymphatic: Reports system reviewed and no additional complaints, except as documented Allergic/Immunologic Allergic/Immunologic: Reports system reviewed and no additional complaints, except as documented Meds Home Medications and Allergies Home Medications ?Medication ?Instructions ?Recorded ?Confirmed ?Type albuterol sulfate 90 mcg/actuation 4 inh inhalation Q4 HP PRN 10/04/24 01/26/25 Rx aerosol inhaler shortness of breath or wheez ing 30 days #8.5 grams allopurinol 100 mg tablet 100 mg PO DAILY 30 days #30 tabs 10/04/24 01/26/25 Rx cholecalciferol (vitamin D3) 50 50 mcg PO DAILY 30 day s #30 tabs 10/04/24 01/26/25 Rx mcg (2,000 unit) chewable tablet fluticasone 500 mcg-salmeterol 50 1 inh inhalation BID RT #60 ea 10/04/24 01/26/25 Rx mcg/dose blistr powdr for inhalation (Advair Diskus) insulin aspart U-100 100 unit/mL 10 unit (0.1 mL) SQ T ID 30 days #9 10/04/24 01/26/25 Rx (3 mL) subcutaneous pen (Novolog mL FlexPen U-100 Insulin aspart) insulin glargine 100 unit/mL (3 25 unit (0.25 mL) SQ B ID 30 days 10/04/24 01/26/25 Rx mL) subcutaneous pen (Lantus #15 mL Solostar U-100 Insulin) spironolactone 25 mg tablet 25 mg PO DAILY 30 days #30 tabs 10/04/24 01/26/25 Rx torsemide 100 mg tablet 50 mg (1/2 x 100 mg) PO ANAMIKA Y 30 10/04/24 01/26/25 Rx days #15 tabs tramadol 50 mg tablet 50 mg PO Q6HP PRN Severe Chapis n 11/26/24 01/26/25 History (Scale Score 7-10) New Prescriptions to Start Prescriptions: Allergies Allergy/AdvReac Type Severity Reaction Status Date / Time Penicillins Allergy Intermediate Unknown Verified 10/04/24 10:56 allergy reaction codeine (CODEINE) Allergy Mild Unknown Verified 10/04/24 10:56 allergy reaction iodine (IODINE) Allergy Mild Unknown Verified 10/04/24 10:56 allergy reaction latex (LATEX) Allergy Mild Unknown Verified 10/04/24 10:56 allergy reaction oxycodone (OXYCODONE) Allergy Mild Unknown Verified 10/04/24 10:56 allergy reaction Sulfa (Sulfonamide Allergy Mild Unknown Verified 10/04/24 10:56 Antibiotics) (SULFA allergy (SULFONAMIDE ANTIBIOTICS)) reaction Cephalosporins Allergy Unknown Verified 10/04/24 10:56 allergy reaction doxycycline Allergy Unknown Verified 10/04/24 10:56 allergy reaction exenatide (From [place]) Allergy Unknown Verified 10/04/24 10:56 allergy reaction glyburide Allergy Unknown Verified 10/04/24 10:56 allergy reaction hyoscyamine (From Levbid) Allergy Unknown Verified 10/04/24 10:56 allergy reaction Exam Data for Last 24 hours Vital signs and Labs for Last 24 Hours: Temp Pulse Resp BP Pulse Ox O2 Del Method O2 Flow Rate 98 F 85 17 123/87 98 Nasal Cannula 2 01/26/25 21:21 01/26/25 21:21 01/26/25 21:21 01/26/25 21:21 01/26/25 20:00 01/26/25 21:21 01/26/25 21:21 Laboratory Results - last 24 hr 01/26/25 16:45: WBC 9.9, RBC 4.86, Hgb 14.2, Hct 43.0, MCV 88.5, MCH 29.2, MCHC 33.0, RDW 13.4, Plt Count 256, MPV 8.9, Neut % (Auto) 82.4 H, Lymph % (Auto) 9.6 L, [place] % (Auto) 7.3, Eos % (Auto) 0.2, Baso % (Auto) 0.2, Neut # (Auto) 8.2 H, Lymph # (Auto) 1.0, [place] # (Auto) 0.7, Eos # (Auto) 0.0, Baso # (Auto) 0.0, PT 12.1, INR 1.10, Sodium 138, Potassium 4.6, Chloride 99, Carbon Dioxide 31 H, Anion Gap 12.6, BUN 33 H, Creatinine 1.00, Estimated Creat Clear 35, Estimated GFR 53 L, Est GFR ( Amer) 64, Glucose 38 L*, Calcium 9.4, Total Bilirubin 0.8, AST 47 H, ALT 26, Alkaline Phosphatase 101, Troponin I 0.09 H, NT-Pro-B Natriuret Pep 3760 H, Total Protein 7.0, Albumin 4.0, Globulin 3.0, Albumin/Globulin Ratio 1.3 01/26/25 16:50: VBG pH 7.32, VBG pCO2 59.0 H, VBG pO2 38.6, VBG HCO3 29.4, VBG Total CO2 31.2 H, VBG O2 Saturation 69.4, VBG Base Excess 3.2 H, VBG Lactic Acid 2.1 H 01/26/25 20:30: Lactate 1.2, Troponin I 0.11 H I & O for Last 24 hours: Intake & Output 01/23/25 01/24/25 01/25/25 01/26/25 23:59 23:59 23:59 23:59 Weight 111.13 kg Constitutional Constitutional: no acute distress, morbidly obese and cooperative *Routine HEENT Exam Head: Present normocephalic and atraumatic Eye: Present EOMI and PERRL ENT: Present mucous membranes moist *Routine Neck Exam Neck: Present supple, full ROM and trachea midline *Routine Respiratory Exam Respiratory: Present diminished air movement, normal respiratory effort, able to speak in complete sentences and symmetric chest movement *Routine Cardiovascular Exam Cardiovascular: Present RRR, Normal S1 and Normal S2 Comments: EKG is consistent with prior sinus rhythm, left left axis deviation, QTc of 400 *Routine Abdominal Exam Abdominal: Present soft, normoactive bowel sounds and obese *Routine Rectal Exam Rectal:: deferred *Routine Genitalia Exam Genitalia:: deferred *Routine Extremities Exam Extremities: Present edema, pulses intact and normal capillary refill Routine Back/Spine/Pelvis Exam Back/Spine: Present full ROM *Routine Skin Exam Skin: Present intact, dry and warm *Routine Neurological Exam Neurological: Present alert, oriented X3, CN II-XII intact, abnormal gait and moving all extremities Routine Psychiatric Exam Psychiatric: Present normal affect, normal thought process, cooperative, good insight and good judgment H&P: Result Impressions 84-year-old female presents after she sustained a fall while getting out of the shower. Patient had an acute fracture of the malleolus she was noted to be acutely hypoxic with increased swelling to her distal lower extremities. Assessment and Plan *Assessment and plan (1) Ankle fracture, right: Status: Acute Qualifiers: Encounter type: initial encounter Fracture type: closed Qualified Code(s): S82.891A - Other fracture of right lower leg, initial encounter for closed fracture Category: Medical Code(s): S82.891A - Other fracture of right lower leg, initial encounter for closed fracture (2) Elevated troponin: Status: Acute Category: Medical Code(s): R79.89 - Other specified abnormal findings of blood chemistry (3) Hypervolemia: Status: Acute Qualifiers: Hypervolemia type: unspecified Qualified Code(s): E87.70 - Fluid overload, unspecified Category: Medical Code(s): E87.70 - Fluid overload, unspecified (4) Acute and chronic respiratory failure with hypercapnia: Status: Acute Category: Medical Code(s): J96.22 - Acute and chronic respiratory failure with hypercapnia Plan Assessment: Ground-level fall with trauma Right malleolar fracture - Will follow recommendations of orthopedic surgeon and place patient on orthopedic boot -Encourage patient to follow-up with orthopedic team as an outpatient - Physical therapy - Occupational Therapy - Fall precautions Elevated troponin - Appears to be chronic, yet is increasing from baseline - Concern for NSTEMI - Will continue to trend - Patient did receive aspirin full-strength while in the emergency room - EKG is without any evidence of ischemia-it is consistent with prior EKGs - 2D echo - Will consult cardiology in a.m. - Will make patient n.p.o. after midnight in the event patient is deemed warranted for left heart cath Hypervolemia -Lasix IV twice daily - Daily weight - Strict intake and output Acute on chronic hypoxic hypercapnic respiratory failure - Will consider nocturnal BiPAP - Patient is normally in the pendant of supplemental oxygen will wean and if patient's oxygen saturation remained greater than 92% she can be discharged home without it - May be difficult to obtain 6-minute walk test due to patient's recent fracture - She may be having exacerbation of COPD - There was no wheezing noted on exam - DuoNebs every 6 hours Plan: Admit patient to the MedSurg unit on telemetry Vital signs every 4 hours Fall precaution Up to chair twice daily Cardiac 1800 ADA diet and then n.p.o. after midnight CBC/BMP daily Will continue to trend patient's troponin 40 mg Lovenox subcu daily for DVT prophylax Gwinner p.o. every 4 hours PMR pain 2 mg morphine IV push every 4 hours. Severe pain 4 mg Zofran IV full code Staffed this case with attending physician Dr. Kate and I look forward to more input
[2025-01-26] MEDS: FUROSEMIDE 40MG/4ML VIAL 40 MG IV (22:50)
[2025-01-26] MEDS: IPRATROPIUM/ALBUTEROL 3 ML NEB IH (23:20)
[2025-01-26] MEDS: MORPHINE 2MG/ML SYRINGE 2 MG IV (23:55)
[2025-01-27] VITALS (13 sets, daily range): BP systolic 111–153; BP diastolic 47–86; PULSE 70–96; RESP 16–18; TEMP 36.4–36.7; O2SAT 93–98; BMI 46.3
--- NOTE | 2025-01-27 01:12 | PC.WOUNDNOTE ---
Top image shows redness and excoriation noted to the patient's buttocks (particular to left buttock) and intergluteal cleft. Bottom image shows a large bruise (6cm L x 2.5cm W) noted to the patient's left lower posterior side/upper hip area.
[2025-01-27 02:44] LABS: Troponin I 0.11 ng/ml (0.00-0.034)
[2025-01-27] MEDS: HYDROCODONE/APAP 5/325 MG TABLET 1 TAB PO ×3 (03:35→15:03)
[2025-01-27] MEDS: MORPHINE 2MG/ML SYRINGE 2 MG IV (05:25)
[2025-01-27 05:55] LABS: POC Glucose,Bedside 59 gm/dL (70-110)
[2025-01-27] MEDS: DEXTROSE 50% 50ML SYRINGE (CRASH CART) 50 ML IVP (06:00)
[2025-01-27] MEDS: IPRATROPIUM/ALBUTEROL 3 ML NEB IH ×4 (06:09→22:54)
[2025-01-27 07:48] LABS: Hematocrit 37.8 % (37.0-47.0); Immature Granulocytes % 0.3 %; Mean Corpuscular HGB Conc 32.8 g/dL (31.8-35.4); Mean Corpuscular Hemoglobin 29.1 pg (27.0-31.2); Mean Corpuscular Volume 88.7 fl (81-99); Nucleated Red Blood Cells % 0 %; Platelet Count 269 K/mm3 (142-424); Red Blood Count 4.26 M/mm3 (4.20-5.40); Red Cell Distribution Width-SD 44.5 fL; White Blood Count 7.8 K/mm3 (4.8-10.8)
[2025-01-27 08:19] LABS: Anion Gap 12.7 mEq/L (5-15); Blood Urea Nitrogen 38 mg/dl (7-17); Calcium 8.8 mg/dl (8.4-10.2); Carbon Dioxide 28 mmol/L (22.0-30.0); Chloride 100 mmol/L (98-107); Creatinine Clearance Estimated 27 mL/min (50-200); Creatinine,Serum 1.30 mg/dl (0.52-1.04); Estimated Glomerular Filt Rate 39 ml/min (>60); GFR (African American) 47 ML/MIN (>60); Glucose 87 mg/dl (74-100); Potassium 4.7 mmoL/L (3.5-5.1); Sodium 136 mmol/L (136-145)
[2025-01-27 08:22] LABS: Hemoglobin 12.4 g/dL (12.2-16.2)
[2025-01-27] MEDS: NYSTATIN TOPICAL POWDER 30GM TP ×4 (08:55→21:02)
[2025-01-27] MEDS: FUROSEMIDE 40MG/4ML VIAL 40 MG IV (08:56)
[2025-01-27 11:07] LABS: POC Glucose,Bedside 111 gm/dL (70-110)
--- NOTE | 2025-01-27 13:25 | HMH.PHAINT1 ---
Pharmacy Intervention Comments: MEDICATION RECONCILIATION COMPLETE USING EXTERNAL PHARMACY FILL HISTORY, RECENT DISCHARGE, PHUONG REPORT, AND PATIENT INTERVIEW.
--- NOTE | 2025-01-27 14:32 | HMH.PTEV ---
Physical Therapy Evaluation Rehab PT IP Evaluation Start: 01/26/25 22:19 Freq: ONCE Status: Active Protocol: Document 01/27/25 14:26 ANDREWS (Rec: 01/27/25 14:32 ANDREWS [id number]) Subjective/History History History This is a 84-year-old female who has a past medical history significant for chronically elevated troponin, falls, obesity, asthma, obstructive sleep apnea, diastolic dysfunction, coronary artery disease, hypertension, and COPD who presents with a chief complaint of fall with pain to her right ankle post fall. Due to patient's symptoms, she presented to the emergency room for evaluation. While in the emergency room, patient underwent trauma scan and her right lower extremity was found to have a malleolus fracture. Patient's case was discussed with Dr. Mares who recommended patient patient on lower extremity boot. Patient did have an acute need for supplemental oxygen and informed ER provider that she has been having increased swelling to her lower extremities. As a result, patient has been admitted for further management. During my evaluation of the patient, patient reports that she has had multiple falls over the past several months. She reports that she fell this morning and was able to get up. Then after getting out of the shower she stepped wrong on her right foot and fell again. Post fall patient had pain to her right hip ankle. She is reporting no loss of consciousness but states she has been unsteady on her feet for some time. Patient states that she has been having increased swelling to her lower extremities which she believes is adding to her unsteady gait. She does not know if she has gained any weight. Patient reports her primary adjuster is Dr. Adeel Klein she does not recall that she has had a 2D echo recently. Moreover, she does not report having a left heart cath or ischemic workup. She is currently denying any chest pain, lightheadedness, dizziness, fever, chills, rigors, nausea, vomiting, but or diarrhea. Chest x-ray was negative for any acute cardiopulmonary process. Tibia/fibula x-ray revealed a subtle step-off deformity in the lateral malleolus distally concerning for a small fracture and diffuse swelling throughout the lower extremity. CT scan of the thoracic spine was negative for any thoracic spine process. Pelvis were negative for any acute findings. CT scan of the lumbar spine was negative for any acute lumbar spine fracture. X-rays of the knee was negative for any acute findings. Additional scans were also without any abnormal findings. Additional pertinent labs obtained including neutrophils 82.4%, blood gases revealed pCO2 of 59 HCO3 of 31.2, venous lactic 2.1, carbon oxide of 31, BUN of 33, GFR 53, blood glucose of 38, AST of 47, initial troponin 0.09 and it trended up to 0.11 (patient has chronically elevated troponin), and patient's BNP was 3760. Subjective Subjective Pt is alert and oriented x3. Pt reports that she lives in a trailer by herself with 0 ANKUR. Pt reports that prior to being hospitalized, she was fully independent with all ADLs. Pt reports that she did not require the use of any AD prior to being hospitalized. Pt presents up in chair with fracture boot on her R ankle. Pt is WBAT on her RLE. New diagnosis of No cancer in past 12 months? [facility] How much help from another person do you currently need... Turning from your A lot back to your side while in a flat bed without using bedrails? Moving from lying on A lot back to sitting on the side of a flat bed without using bedrails? Moving to and from a A lot bed to a chair ( including a wheelchair)? Standing up from a A lot chair using your arms? (e.g., wheelchair, bedside chair) Walking in hospital Total room? Climbing 3-5 steps Total with a railing? Mobility Score 10 Mobility Level [facility] Mobility 4 Move to chair/commode Mobility Calculator Rehab PT IP Eval Objective Appearance Patient Behavior Appropriate,Patient Baseline Patient Orientation Person,Place,Time Difficulty following none instructions Speech Pattern Clear Ambulation Patient Able to No Ambulate Balance Ability to Arise Able, uses arms to help Sitting Balance Steady, safe Standing Balance Unsteady Dynamic Sitting Good Balance Ability Dynamic Standing Poor Balance Ability Transfers Chair Transfer Maximum x 1 (75% assist) Ability Sit to Stand Bed Maximum x 1 (75% assist) Transfer Ability Sit to Stand Chair Maximum x 1 (75% assist) Transfer Ability Rehab PT IP prob,goals,plan Problems Date of Evaluation: 01/27/25 PT IP Problems Bed Mobility,Transfers,Gait,Balance,Self care,Safety Rehab Potential Rehab Potential Fair Equipment Needs Assistive Devices Rolling / Wheeled Walker Plan PT Intervention Plan Bed Mobility,Transfers,Gait,Balance,Self care,Safety, Therapeutic Exercise PT Plan Frequency Daily Duration LOS Discharge Goals Bed Transfer Ability Minimal x 1 (25% assist) Sit to Stand Chair Minimal x 1 (25% assist) Transfer Ability Ambulation Assistive Rolling Walker Device Ambulation Distance 20 (feet) Discharge Plan PT Discharge Plan Pt presents below baseline in her functional mobility, including transfers, bed mobility, gait and balance. Pt would benefit from skilled PT during her acute stay to address her current impairments and to prepare for a safe discharge from the hospital. Currently, the pt is unfit for a safe discharge to home. She would best benefit from further rehab, upon discharge from the hospital. Eval Complexity Eval Charge Codes 27403 - High Complexity PHYSICIAN CERTIFICATION: I certify the specified therapy services for Denisa Sanon are required, authorized, and reviewed every 30 days.
[2025-01-27] MEDS: ALLOPURINOL 100MG TABLET 100 MG PO (15:03)
[2025-01-27] MEDS: BUMETANIDE 1MG/4ML VIAL 2 MG IV (15:03)
[2025-01-27] MEDS: humaLOG 100 UNITS/ML 10ML VIAL (SSI) SUBCUT (16:38)
[2025-01-27 16:53] LABS: POC Glucose,Bedside 227 gm/dL (70-110)
--- NOTE | 2025-01-27 17:35 | P.PN_ITS ---
Subjective *Date: 01/27/25 *Time: 17:35 Interval history: Patient states she is doing okay, but continues to have right ankle pain with bearing weight. She has an orthopedic boot. Significant volume overload, will diurese. Likely contributing to falls. Exam Data for Last 24 hours Vital signs and Labs for Last 24 Hours: Temp Pulse Resp BP Pulse Ox O2 Del Method O2 Flow Rate 97.8 F 96 H 18 142/86 H 98 Nasal Cannula 2 01/27/25 16:00 01/27/25 16:00 01/27/25 16:00 01/27/25 16:00 01/27/25 16:00 01/27/25 16:55 01/27/25 16:55 Laboratory Results - last 24 hr 01/26/25 20:30: Lactate 1.2, Troponin I 0.11 H 01/27/25 02:05: Troponin I 0.11 H 01/27/25 05:28: POC Glucose 59 L 01/27/25 07:05: WBC 7.8, RBC 4.26, Hgb 12.4 D, Hct 37.8, MCV 88.7, MCH 29.1, MCHC 32.8, RDW 13.7, Plt Count 269, MPV 9.2, Neut % (Auto) 65.7, Lymph % (Auto) 23.7, [place] % (Auto) 8.8, Eos % (Auto) 1.2, Baso % (Auto) 0.3, Neut # (Auto) 5.1, Lymph # (Auto) 1.9, [place] # (Auto) 0.7, Eos # (Auto) 0.1, Baso # (Auto) 0.0, Sodium 136, Potassium 4.7, Chloride 100, Carbon Dioxide 28, Anion Gap 12.7, BUN 38 H, Creatinine 1.30 H D, Estimated Creat Clear 27, Estimated GFR 39 L, Est GFR ( Amer) 47 L D, Glucose 87 D, Calcium 8.8 01/27/25 10:46: POC Glucose 111 H 01/27/25 16:38: POC Glucose 227 H I & O for Last 24 hours: Intake & Output 01/24/25 01/25/25 01/26/25 01/27/25 23:59 23:59 23:59 23:59 Intake Total 920 / 920 Output Total 125 / 125 Balance 795 / 795 Weight 123.105 kg 123.105 kg Constitutional Constitutional: no acute distress *Routine HEENT Exam Head: Present normocephalic Eye: Present EOMI and PERRL ENT: Present mucous membranes moist *Routine Neck Exam Neck: Present supple; Absent lymphadenopathy *Routine Respiratory Exam Respiratory: Present CTA bilaterally *Routine Cardiovascular Exam Cardiovascular: Present RRR *Routine Abdominal Exam Abdominal: Present soft and normoactive bowel sounds; Absent tenderness *Routine Extremities Exam Extremities: Present edema; Absent cyanosis or clubbing Comments: Bilateral lower extremity pitting edema 3+. Right foot in boot. *Routine Skin Exam Skin: Present warm; Absent rash *Routine Neurological Exam Neurological: Present alert and oriented X3 Assessment and Plan *Assessment and plan (1) CHF (congestive heart failure): Status: Acute Qualifiers: Heart failure chronicity: unspecified Heart failure type: unspecified Qualified Code(s): I50.9 - Heart failure, unspecified Category: Medical Code(s): I50.9 - Heart failure, unspecified (2) Ankle fracture, right: Status: Acute Qualifiers: Encounter type: initial encounter Fracture type: closed Qualified Code(s): S82.891A - Other fracture of right lower leg, initial encounter for closed fracture Category: Medical Code(s): S82.891A - Other fracture of right lower leg, initial encounter for closed fracture Plan Denisa Sanon is a 84-year-old female who presented after a fall and found to have a right ankle fracture, became acutely hypoxic in the ER and was admitted for physical deconditioning and suspected HFpEF exacerbation. #Suspected HFpEF exacerbation #NSTEMI, likely type II #CKD stage IIIa ? On my evaluation of the patient, she had lower extremity pitting edema 3+ likely contributing to fall. ? Initial BNP 3760. Patient takes torsemide 50 mg and spironolactone 25 mg daily. ? Troponin 0.11, but not far from baseline of 0.09. 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 Denies chest pain, shortness of breath. ? Started IV Bumex 2 mg twice daily, spironolactone 25 mg daily. Follow-up urine output, renal function, electrolytes. ? Creatinine bumped to 1.3, GFR 39 today. ? Follow-up ECHO if patient is still here on Wednesday. #Right malleolar fracture #Physical deconditioning ? Orthopedic surgery consulted in the ED, recommended orthopedic boot. ? Patient is having pain with bearing weight, especially in setting of edema. ? PT/OT consulted, recommended SNF. Case management will be consulted for further assistance. ? Continue multimodal pain management with Tylenol, [place], morphine. Will avoid NSAIDs due to CKD. ? Follow-up TSH, B12, folate. #COPD ? Moderate wheezing in bilateral lung samano, denies shortness of breath. ? Continue DuoNebs every 6 hours and home Advair. #History of gout ? Continue home allopurinol 100 mg. #Type 2 diabetes ? Hemoglobin A1c 6.8%. Continue LDSSI, ACHS glucose checks. #Obesity ? Complicates all aspects of care. DNR/DNI DVT prophylaxis: Lovenox 30 mg
[2025-01-27 18:04] LABS: Adenovirus,PCR Not Detected (NotDetected); Chlamydophila Pneumoniae, PCR Not Detected (NotDetected); Coronavirus 19, PCR Not Detected (NotDetected); Coronovirus HKU1,PCR Not Detected (NotDetected); Influenza A, PCR Not Detected (NotDetected); Influenza AH1, 2009 Not Detected (NotDetected); Influenza AH1, PCR Not Detected (NotDetected); Influenza AH3,PCR Not Detected (NotDetected); Influenza B, PCR Not Detected (NotDetected); Mycoplasma Pneumoniae, PCR Not Detected (NotDetected); Parainfluenza 1, PCR Not Detected (NotDetected); Parainfluenza 2, PCR Not Detected (NotDetected); Parainfluenza 3, PCR Not Detected (NotDetected); Parainfluenza 4, PCR Not Detected (NotDetected)
--- NOTE | 2025-01-27 18:07 | PC.NURSE ---
PT IS RESTING IN BED. ALERT AND ORIENTED X4. EATING AND DRINKING FAIR. PT TOLERATED SITTING UP IN THE CHAIR FOR SEVERAL HOURS THIS AFTERNOON. 2 ASSIST WITH WALKER TO TRANSFER. ORTHO BOOT NOTED TO RLE. 2-3+ PITTING EDEMA NOTED TO BLE. LUNG SOUNDS DIMINISHED WITH SCATTERED RHONCHI. ABDOMEN SOFT/LARGE/NON TENDER WITH ACTIVE BOWEL SOUNDS. STRICT I&O'S. WILL CONTINUE TO MONITOR.
[2025-01-27 18:14] LABS: Anion Gap 14.0 mEq/L (5-15); Blood Urea Nitrogen 42 mg/dl (7-17); Calcium 8.6 mg/dl (8.4-10.2); Carbon Dioxide 27 mmol/L (22.0-30.0); Chloride 99 mmol/L (98-107); Creatinine Clearance Estimated 22 mL/min (50-200); Creatinine,Serum 1.60 mg/dl (0.52-1.04); Estimated Glomerular Filt Rate 31 ml/min (>60); GFR (African American) 37 ML/MIN (>60); Glucose 177 mg/dl (74-100); Potassium 5.0 mmoL/L (3.5-5.1); Sodium 135 mmol/L (136-145)
[2025-01-27 21:18] LABS: POC Glucose,Bedside 146 gm/dL (70-110)
[2025-01-28] VITALS (13 sets, daily range): BP systolic 131–146; BP diastolic 59–81; PULSE 72–98; RESP 16–18; TEMP 36.6–36.8; O2SAT 90–98; BMI 46.8
[2025-01-28] MEDS: HYDROCODONE/APAP 5/325 MG TABLET 1 TAB PO ×2 (01:40→09:09)
--- NOTE | 2025-01-28 04:00 | PC.NURSE ---
Addendum entered by Yara Rodrigues RN 01/28/25 05:10: Patient is complaining of severe right leg/ankle pain this morning. Administering morphine per MAR. Original Note: Patient is alert and oriented x4. Slightly hard of hearing. She was observed to be resting in bed with eyes closed, respirations even and unlabored on 2 L of oxygen via nasal cannula, and no apparent distress throughout the majority of the night. Patient has not had any complaints of shortness of breath; oxygen saturations >90%. Ortho-boot remains in place to her right foot. Patient has complained of moderate right ankle pain this shift (worsens during movement) of which Hope was administered per MAR for relief. Swelling (+3) noted to lower extremities. Patient gets up with vast assistance + use of walker. Excoriation and moisture noted underneath abdominal pannus and breast regions; Nystatin powder applied this shift. Scheduled medications were administered per JUN. Breathing treatments given by RTs. Diminished lung sounds heard upon auscultation, no wheezing presented. A female purewick remains in place for urinary needs; output documented accordingly. No bowel movement this shift, is passing gas however. Active bowel sounds in all quadrants. ACHS glucose checks performed; bedtime snack provided this shift. At this time, the patient is resting in bed without any further complaints. No acute changes noted thus far. Call light within reach.
[2025-01-28] MEDS: MORPHINE 2MG/ML SYRINGE 2 MG IV (05:15)
[2025-01-28 05:50] LABS: POC Glucose,Bedside 126 gm/dL (70-110)
[2025-01-28] MEDS: IPRATROPIUM/ALBUTEROL 3 ML NEB IH ×3 (06:28→22:12)
[2025-01-28 06:44] LABS: Hematocrit 35.2 % (37.0-47.0); Hemoglobin 11.4 g/dL (12.2-16.2); Immature Granulocytes % 0.3 %; Mean Corpuscular HGB Conc 32.4 g/dL (31.8-35.4); Mean Corpuscular Hemoglobin 29.1 pg (27.0-31.2); Mean Corpuscular Volume 89.8 fl (81-99); Nucleated Red Blood Cells % 0 %; Platelet Count 226 K/mm3 (142-424); Red Blood Count 3.92 M/mm3 (4.20-5.40); Red Cell Distribution Width-SD 45.2 fL; White Blood Count 5.9 K/mm3 (4.8-10.8)
[2025-01-28 06:48] LABS: Chloride 99 mmol/L (98-107); Potassium 4.4 mmoL/L (3.5-5.1); Sodium 134 mmol/L (136-145)
[2025-01-28 06:51] LABS: Anion Gap 10.4 mEq/L (5-15); Blood Urea Nitrogen 42 mg/dl (7-17); Calcium 8.1 mg/dl (8.4-10.2); Carbon Dioxide 29 mmol/L (22.0-30.0); Creatinine Clearance Estimated 23 mL/min (50-200); Creatinine,Serum 1.50 mg/dl (0.52-1.04); Estimated Glomerular Filt Rate 33 ml/min (>60); GFR (African American) 40 ML/MIN (>60); Glucose 141 mg/dl (74-100)
[2025-01-28 07:22] LABS: Thyroid Stimulating Hormone 3.26 uIU/mL (0.465-4.68)
[2025-01-28 07:58] LABS: Vitamin B12 336 pg/mL (239-931)
[2025-01-28] MEDS: ALLOPURINOL 100MG TABLET 100 MG PO (09:10)
[2025-01-28] MEDS: NYSTATIN TOPICAL POWDER 30GM TP ×4 (09:10→21:28)
[2025-01-28 10:18] LABS: Folate 6.12 ng/mL
[2025-01-28] MEDS: humaLOG 100 UNITS/ML 10ML VIAL (SSI) SUBCUT ×3 (11:50→21:49)
--- OUTSIDE RECORDS SUMMARY | 2025-01-28 14:11 | XMS_ITS | Clinical Summary ---
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 (ICD-10-CM ) 10/19 Active 10/19 Winifred Jorje Other specified bacterial agents as the cause of diseases classified elsewhere Anaerococcus infection B96.89 (ICD-10-CM ) 10/19 Active 10/19 Winifred Jorje Other specified bacterial agents as the cause of diseases classified elsewhere COPD 73949581 (SNOMED CT) 10/19 Active 10/19 Winifred Jorje Chronic obstructive pulmonary disease MRSA infection 116375779 (SNOMED CT) 10/19 Active 10/19 Winifred Jorje Methicillin resistant Staphylococcus aureus infection Obesity, class 2, BMI 35 to <40 01232901 (SNOMED CT) 10/19 Active 10/19 Winifred Jorje Coronary arteriosclerosis Knee, right, subsequent encounter(s), infection/inf lammatory reaction due to internal joint prosthesis T84.53xD (ICD-10-CM ) 10/19 Active 10/19 Winifred Jorje Infection and inflammatory reaction due to internal right knee prosthesis, subsequent encounter Cellulitis of RLE 330367410 (SNOMED CT) 10/19 Active 10/19 Winifred Recinos Cellulitis of lower limb DM II with diabetic CKD, 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) E11.22 (ICD-10-CM ) 10/19 Active 10/19 Winifred Recinos Type 2 diabetes mellitus with diabetic chronic kidney disease Coronary artery disease (CAD) 12641737 (SNOMED CT) 10/19 Active 10/19 Winifred Recinos Coronary arteriosclerosis Hypertensive heart and CKD, benign, 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) 924021944 (SNOMED CT) 10/19 Active 10/19 Winifred Recinos Chronic diastolic heart failure Medications Medication Instructions Start Date Stop Date Generic Name NDC Provider daptomycin recon soln Cubicin 700mg Iv Q24hrs [facility] 11/09 daptomycin recon kadeem Alvarez RN ceftriaxone recon soln Rocephin 2G IV q24hrs -- [facility] 11/09 ceftriaxone perla Alvarez RN DOXYCYCLINE MONOHYDRATE 100 MG TABS Take 1 tablet by mouth twice a day 11/27 doxycycline monohydrate [id number] David Fulton MD CEFUROXIME AXETIL 250 MG TABS Take 1 tablet by mouth twice a day 11/27 cefuroxime axetil [id number] David Fulton MD ceftriaxone recon soln Rocephin 2G IV q24hrs -- [facility] 11/09 ceftriaxone recon gracielan Becca Landrum daptomycin recon soln Cubicin 700mg Iv Q24hrs [facility] 11/09 daptomycin recon kadeem Alvarez RN TORSEMIDE 100 MG TABS Take 0.5 tablets (50 mg total) by mouth daily. torsemide [id number] [facility] SPIRONOLACTONE 25 MG TABS Take 1 tablet (25 mg total) by mouth daily. spironolactone [id number] QIE qieuse r OXYGEN-AIR DELIVERY SYSTEMS MISC 2 liter at night time. . 11/09 OXYGEN-AIR DELIVERY SYSTEMS MISC [facility] ONDANSETRON HCL 4 MG TABS Take 1 tablet (4 mg total) by mouth every 8 (eight) hours as needed for nausea. ondansetron hcl [id number] [facility] MUPIROCIN 2 % OINT 1 Application 3 (three) times daily. mupirocin [id number] [facility] VITAMIN D3 50 MCG (2000 UT) TABS Take 1 tablet (2,000 Units total) by mouth daily. cholecalciferol (vitamin d3) 02956074681 [facility]IE [facility] ALLOPURINOL 100 MG TABS Take 1 tablet (100 mg total) by mouth daily. allopurinol [id number] QIE [facility] ALBUTEROL SULFATE HFA 108 (90 Base) MCG/ACT AERS Inhale 2 puffs by mouth every 6 (six) hours as needed for shortness of breath or wheezing. 11/09 albuterol sulfate [id number] [facility] ALBUTEROL SULFATE (2.5 MG/3ML) 0.083% NEBU Inhale 3 mLs (2.5 mg total) by nebulization every 4 (four) hours as needed for wheezing or shortness of breath. 10/23 albuterol sulfate [id number] [facility] ACETAMINOPHEN 325 MG TABS Take 2 tablets (650 mg total) by mouth every 6 (six) hours as needed. 10/23 acetaminophen [id number] QIE [facility] daptomycin recon soln Cubicin 700mg Iv Q24hrs [facility] 10/23 daptomycin recon soln Skylar Crocker [...]
--- OUTSIDE RECORDS SUMMARY | 2025-01-28 14:12 | XMS_ITS | Data Portability ---
Author Organization [place] [facility] [place] [facility] [place] [facility] Address [address] [place] [address] Care Team Providers Care Aerospace Engineer Officer Armament Name Role Phone JAVON NORWOOD Primary Care Provider Assessment Encounter Date Assessment [...] 154. Creatinine 1.37 with normal electrolytes. PAST [facility]: 04/21/2016 IFredi LPN, I am scribing for, and in the office/presence of, Piotr Mullins MD. This note was dictated using ToughSurgery software. If something is unclear, or does not make sense, please do not hesitate to contact our office at [phone] for clarification. [email or web address] Not available 11/17/2023 16:40:41 [...] 154. Creatinine 1.37 with normal electrolytes. PAST [facility]: 04/21/2016 Fredi Garg LPN, I am scribing for, and in the office/presence of, Piotr Mullins MD. PIOTR Garg M.D. PERFORMED THE SERVICES DESCRIBED IN THIS DOCUMENTATION, SCRIBED BY FREDI BRUMFIELD LPN IN MY PRESENCE, AND IT IS BOTH ACCURATE AND COMPLETE. This note was dictated using ToughSur[employer] software. If something is unclear, or does not make sense, please do not hesitate to contact our office at [phone] for clarification. hoda Not available 02/16/2024 11:21:45 Plan of Treatment Reminders Order Date Submit Date Provider Last Modified By Organization Details Last Modified Time Details Appointments None recorded. Lab None recorded. Referral None recorded. Procedures None recorded. Surgeries None recorded. Imaging US, echocardiog bhavin, transthorac ic, complete, w/ color flow 2023 024 perla [facility] ([facility]), [address] [facility] , [place], [address], 4 08:38:14 electrocard iogram 2023 024 hoda Oropeza [facility], [address] [place] [address] Rishabh Lexi, [place], [address], 4 16:40:55 Medication Orders ORTHOVISC 30 mg/2 mL intra-artic ular syringe 2023 024 julia on64 [facility], [address] [place] [address] , [place], [place], [id number], 11:02:22 ORTHOVISC 30 mg/2 mL intra-artic ular syringe 2023 Nancy dumont on64 [facility], [address] [facility] , [place], [place], [id number], 11:02:22 Patient TargetsNo targets recorded. Patient InstructionsNo instructions recorded. Reason for Referral None Reported. Results Created Date Observation Date Name Description Value Unit Range Abnormal Flag Note LastModifiedBy Organization Detail LastModifiedTime 11/16/19 elect rocar diogr am No observ ation record ed. AFSHIN Oropeza [address], [place], [address], 11/16/2023 11:42:13 11/16/19 24 11/16/2023 elect rocar diogr am No observ ation record ed. [email or web address] Not Available 2023 11:43:31 03/09/20 24 03/09/2024 - ECHO w/spe c/col or flow [facility] Name: Brendon SANON [facility] marker.toa [employer] Phys: Susanna BRIONES, [place] [address] : 1940 Age: 83 Sex: F Acct: [id number] Loc: ROSANGELA PHONE #: Exam Date: 2023 Status : DEP CLI FAX #: Rad# [id number] Unit# [id number] Admit Date: 2023 EXAMS: CPT CODE: [id number] ECHO W/SPEC /COLOR FLOW 61639 Reason for study: Dyspne a Left ventri cular diasto le: 4.5 Left ventri cular systol e: 3.2 Septal wall thickn ess: 1.2 Drying Machine Back Tender ior wall thickn ess: 1.1 Right ventri [...] MD PAGE 1 Signed Report (ELOISE NUED) [facility] Name: Brendon SANON [facility] [employer] Phys: Susanna BRIONES, Piot[place] [address] : 1940 Age: 83 Sex: F Acct: [id number] Loc: RaymundoMJ PHONE #: [phone] Exam Date: 2023 Status : DEP CLI FAX #: Rad# [id number] Unit# [id number] Admit Date: 2023 EXAMS: CPT CODE: [id number] ECHO W/SPEC /COLOR FLOW [id number] CC: Piotr Mullins MD; Norma Au LABELS MOLDER Dictat ed Date/T suad: 2023 (152) Techno logist : YOSVANY RAHMAN Transc ribed Date/T suad: 2023 (1521) Transc riptio nist: DR.LOH MICHAEL [email or web address] Signat ure Date/T suad: 2023 (1521) Printe d Date/T suad: 2023 (1525) BATCH NO: N/A PAGE 2 Signed Report CC'ed Logic: Orderi ng Provid er: SUSANNA SALDAÑA Attend ing Provid er: SUSANNA SALDAÑA Referr ing Provid er: SUSANNA SALDAÑA Consul ting Provid er: MELODIE LAMBERT [facility] [address] [place], [address], 03/09/2024 16:53:09 Result Notes None recorded. Problems Name Problem SNOMED Code Status Onset Date Resolution Date Notes Provider Name and Address Organization Details Recorded Time Dyspnea on exertion 05194471 Active 2021 Piotr Mullins MD [address] [place] [address],[address], [place], [address], [place] [facility] [place] [facility] [place] 2 11:29:39 Coronary arterioscleros is 26983500 Active 2021 Piotr Mullins MD [address] [place] [address],[address], [place], [address], [place] [facility] [place] 2 11:29:43 Diastolic dysfunction 8834232 Active 2021 Piotr Mullins MD [address] [place] [address],[address], [place], [address], [place] [facility] [place] 2 11:29:48 Electrocardiog bhavin abnormal 204518935 Active 2021 Piotr Mullins MD [address] [place] [address],[address], [place], [address], [place] [facility] [place] [facility] [place] 2 11:30:17 Essential hypertension 04213033 Active 2021 Piotr Mullins MD [address] [place] [address],[address], [place], [address], [place] [facility] [place] [facility] [place] 2 11:30:22 Peripheral edema 025095974 Active 2022 Piotr Mullins MD [address] [place] [address],[address] [place] [address], [address], [place] [facility] 3 11:27:47 Cervical radiculopathy 53860306 Active 2022 Piotr Mullins MD [address] [place] [address],[address] [place] [address], [address], [place] [facility] [place] 3 11:50:43 Chronic renal insufficiency 908271416 Active 2023 Piotr Mullins MD [address] [place] [address],[address] [place] [address], [address], [place] [facility] [place] 4 13:45:37 Dyspnea 124042403 Active 2023 Piotr Mullins MD [address] [place] [address],[address] [place] [address], [address], [place] [facility] [place] 4 11:21:13 Aortic root dilatation 639696095 Active 2023 Piotr Mullins MD [address] [place] [address],[address] [place] [address], [address], [place] [facility] 4 11:14:44 Problem Notes None recorded. Procedures Surgical History Date Name Laterality Status Provider Name and Address Organization Details Recorded Time 07/28/19 20 Cardiac Catheterization completed Susanne Calle [place] [facility] [place] 11/13/2022 11:47:41 04/21/19 17 Cardiac Catheterization completed Susanne Calle [place] [facility] [place] [facility] [place] 11/13/2022 11:44:51 07/29/19 11 Cardiac Catheterization completed Susanne Calle [place] [facility] 11/13/2022 11:45:51 Hysterectomy completed Fredi Brumfield [place] [facility] [place] 02/11/2022 17:07:34 Appendectomy completed Fredi CRUZ - [facility] [place] [facility] [place] 02/11/2022 17:07:42 tonsillectomy completed Fredi CRUZ - [facility] & [place] 02/11/2022 17:07:50 Cholecystectomy completed Fredi CRUZ - [facility] & [place] 02/11/2022 17:07:56 oophorectomy completed Fredi CRUZ - [facility] & [place] 02/11/2022 17:08:42 procedure on brain completed Fredi CRUZ - [facility] & [place] 02/11/2022 17:08:57 Imaging Results None recorded. Procedure Notes None recorded. Medical Equipment None Reported. Allergies Allergen ID Allergen Name Allergen Category Reaction Reaction Severity Criticality Documentation Date Start Date Code Code System Note Provider Name and Address Organization Details Recorded Time 28175 Byetta medicatio n Not available Not available Not available 02/11/2022 78820 1 RxNorm Fredi groves, ANTHONY - [facility] & [place] 17:02:44 84336 Cephalosp lawanda (substanc e) medicatio n Not available Not available Not available 02/11/2022 11834 7003 SNOMED Fredi groves, ANTHONY - [facility] & [place] 17:02:54 94419 oxycodone medicatio n Not available Not available Not available 02/11/2022 7804 RxNorm Fredi Brumfield null, ANTHON[place] - [facility] - [place] [facility] [place] 2 17:03:07 74651 codeine medicatio n Not available Not available Not available 02/11/2022 2670 RxNorm Fredi Brumfield null, ANTHON[place] - [facility] [place] [facility] [place] 17:03:24 20663 doxycycli ne Not available Not available Not available Not available 02/11/2022 3640 RxNorm Fredi Brumfield null, [place] - [facility] [place] [facility] [place] 17:03:33 39922 iodine medicatio n Not available Not available Not available 02/11/2022 5933 RxNorm ANTHONY Burrell [facility] & [place] 2 17:03:39 74396 latex environme nt,medica tion Not available Not available Not available 02/11/2022 60493 91 RxNorm ANTHONY Burrell [facility] & [place] 2 17:03:45 66256 Levbid medicatio n Not available Not available Not available 02/11/2022 17993 3 RxNorm ANTHONY Burrell [facility] & [place] 17:03:51 90959 Levaquin medicatio n Not available Not available Not available 02/11/202288096 2 RxNorm ANTHONY Burrell [facility] & [place] 2 17:03:57 54205 Substance with sulfonami de structure and antibacte rial mechanism of action (substanc e) medicatio n Not available Not available Not available 02/11/2022 56142 8003 SNOMED ANTHONY Burrell [facility] & [place] 2 17:04:03 27187 Product containin g penicilli n (product) medicatio n Not available Not available Not available 02/11/2022 50494 8001 SNOMED ANTHONY Burrell [facility] & [place] 2 17:04:14 53077 glyburide medicatio n Not available Not available Not available 02/11/2022 4815 RxNorm ANTHONY Burrell [facility] & [place] 2 17:04:21 Medications Name Sig Start Date [...] with needle 1 mL 30 gauge x 5/16 USE DIRECTED active Not Available Not Available [...] t Available Unifine Pentips 32 gauge x 5/32 needle USE ONE (1) (ONE) NEEDLE DIRECTED, THREE TIMES DAILY active Not Available Not Available No t Available Easy Comfort Pen [place] 31 gauge x 3/16 USE DIRECTED with [...] Last Updated DateTime 07/21/2023 160.02 cm Veronica Germain [facility] & [place] 07/21/2023 14:00:52 Date Recorded Body height Body mass index (BMI) Body weight Oxygen saturation Oxygen saturation in Arterial blood by Pulse oximetry Inhaled oxygen flow rate Heart rate Systolic And Diastolic Provider Name and Address Organization Details Last Updated DateTime 4 160.02 cm 42.5 kg/m2 407137. 89 g 94 % 94 % 2 L/min 92 /min 118/78 mm[Hg] Alvin Collado [facility] & [place] 4 11:41:25 Date Recorded Body height Body mass index (BMI) Body weight Oxygen saturation Oxygen saturation in Arterial blood by Pulse oximetry Heart rate Systolic And Diastolic Provider Name and Address Organization Details Last Updated DateTime 4 160.02 cm 43.4 kg/m2 196812. 13 g 94 % 94 % 93 /min 142/82 mm[Hg] Dulce [email or web address] [facility] & [place] 11:01:52 Social History Question Answer Notes LastModified by Organizat ion Details LastModified Time Tobacco Smoking Status Former Smoker Fredi groves [facility] & [place] 02/11/2022 17:07:22 What Is Your Level Of Caffeine Consumption? Occasional Information not available 06/03/2023 What Type Of Diet Are You Following? REGULAR [email or web address] Information not available 06/03/2023 When Did You Quit Smoking? 16+yearssincel astcigarette 38 Years [email or web address] Information not available 06/03/2023 What Was The Date Of Your Most Recent Tobacco Screening? 06/03/2023 Information not available 06/03/2023 Are You Passively Exposed To Smoke? No [email or web address] Information not available 06/03/2023 Sex: Female Functional Status Question Answer Note LastModified by Organizat ion Details LastModified Time Do you use any illicit or recreational drugs? No [email or web address] Information not available 11/18/2022 Do you or have you ever used any other forms of tobacco or nicotine? No [email or web address] Information not available 06/03/2023 What is your level of alcohol consumption? None [email or web address] Information not available 11/18/2022 What is your exercise level? None [email or web address] Information not available 11/18/2022 Mental Status None recorded. Family History Relationship Description Onset Age of this Age Resolved Age Notes LastModified by Organization Details LastModified Time Father Hypertensive disorder [email or web address] Not available 2021 17:06:21 Mother Hypertensive disorder [email or web address] Not available 2021 17:06:21 Mother Cerebrovascu lar accident [email or web address] Not available 17:06:49 Medical History Condition Response Coronary Artery Disease Y Ear or Hearing Problems Y COPD Y Obstructive Sleep Apnea Y Diabetes Y Obesity Y Arthritis Y Hyperlipidemia Y Rheumatoid Arthritis Y Hypertension Y Gynecological HistoryNo gynecological history recorded. Obstetrics History GPAL:G 0 P 0 0 0 0 Immunizations Vaccine Type Date Status Note Provider Nam e and Address Organization Details Recorded Time zoster recombinant 3 completed ANTHONY Watson [facility] [place] [facility] [place] 07/01/2023 14:21:47 Pneumococcal conjugate PCV20, polysaccharide [id number] conjugate, adjuvant, PF 3 completed ANTHONY Watson [facility] - [place] [facility] [place] 07/01/2023 14:21:47 Influenza, high-dose, trivalent, PF 0 completed Tova Kahn [facility], [place] - [facility] [place] [facility] [place] 07/01/2023 14:21:47 Past Encounters Encounter ID Performer Location Encounter Start Date Encounter Closed Date Diagnosis/Indication Diagnosis SNOMED-CT Code Diagnosis ICD10 Code Diagnosis IMO Codes Diagnosis Note [id number] Piotr Mullins MD [address] [place] [address] 6 02/11/2022 10:50:55 02/11/2022 11:27:24 Dyspnea on exertion 29177922 R06.09 Coronary arteriosclerosis 91238960 I25.10 Diastolic dysfunction 35 80011 I51.9 Electrocar diogram abnormal 583060813 R94.31 Essential hypertension 89065815 I10 [id number] Piotr Mullins MD [address] [place] [address] 06/17/2022 10:05:38 06/17/2022 10:57:51 Peripheral edema 906824044 R60.9 Coronary arteriosclerosis 38662107 I25.10 Diastolic dysfunction 35 75145 I51.9 Essential hypertension 07656658 I10 [id number] Piotr Mullins MD [address] PASCUAL [address] [place] [address] 07/29/2022 11:11:39 07/29/2022 11:44:06 Peripheral edema 442454307 R60.9 Essential hypertension 16187804 I10 Dyspnea on exertion 6084 5006 R06.09 Coronary arteriosclerosis 15029369 I25.10 Diastolic dysfunction 35 51100 I51.9 Electrocar diogram abnormal 745355201 R94.31 [id number] Piotr Mullins MD [address] [place] [address] 10/28/2022 11:27:15 10/28/2022 11:46:27 Cervical radiculopathy 08854393 M54.12 Coronary arteriosclerosis 62065062 I25.10 Diastolic dysfunction 35 73591 I51.9 Dyspnea on exertion 6084 5006 R06.09 Electrocar diogram abnormal 013635978 R94.31 Essential hypertension 50858766 I10 Peripheral edema 0284101 00 R60.9 [id number] MD LINDA Morrell [address] [place] [address] 11/18/2022 11:30:11 11/18/2022 11:42:22 Coronary arteriosclerosis 56748370 I25.10 Cervical radiculopathy 68886039 M54.12 Diastolic dysfunction 35 34124 I51.9 Electrocar diogram abnormal 593799279 R94.31 Essential hypertension 59722236 I10 Dyspnea on exertion 6084 5006 R06.09 [id number] Piotr Mullins MD MV [address] [place] [address] 04/22/2023 11:39:38 04/22/2023 12:08:34 Dyspnea 057817635 R06.00 Dyspnea on exertion 6084 5006 R06.09 Peripheral edema 6413010 00 R60.9 Essential hypertension 49447540 I10 Electrocar diogram abnormal 788887823 R94.31 Coronary arteriosclerosis 93110352 I25.10 Chronic re nal insufficiency 723443297 N18.9 [id number] RUTHANN HANNA [facility] [address] [place], [place] [address] 06/03/2023 13:07:38 06/03/2023 14:06:06 Osteoarthritis of right knee joint 8566326810 85189 M17.11 [id number] RUTHANN H[facility] [address] [place] [address] 07/01/2023 13:42:12 07/01/2023 14:29:18 Osteoarthritis of right knee joint 8025326591 14177 M17.11 [id number] RUTHANN [facility] [address] [place] [address] 07/07/2023 15:09:05 07/07/2023 15:27:59 Osteoarthritis of right knee joint 3349338414 32046 M17.11 [id number] MD LINDA Morrell [address] [place] [address] 07/12/2023 10:24:25 07/12/2023 11:15:09 Dyspnea on exertion 64747237 R06.09 Peripheral edema 6905260 00 R60.9 Essential hypertension 72471927 I10 Electrocar diogram abnormal 786121696 R94.31 Coronary arteriosclerosis 16312763 I25.10 Chronic re nal insufficiency 140809317 N18.9 Diastolic dysfunction 35 69891 I51.9 [id number] KELVIN ELI NP [facility] [address] [place] [address] 9 07/14/2023 14:06:42 07/14/2023 14:26:32 Osteoarthritis of right knee joint 7841193758 38573 M17.11 [id number] KELVIN ELI NP [facility] [address] [place] [address] 9 07/21/2023 13:50:23 07/21/2023 14:18:24 Osteoarthritis of right knee joint 1840325165 92670 M17.11 [id number] [facility] [address] [place] [address] 9 09/01/2023 09:51:13 09/01/2023 10:11:24 Osteoarthritis of right knee joint 8372507145 47338 M17.11 Pain of ri ght knee joint 7229894365 00016 M25.063 [id number] MD LINDA Morrell [address] PASCU[place] [address] [place] [address] 11/16/2023 11:24:01 11/16/2023 11:58:51 Dyspnea on exertion 94582080 R06.09 Peripheral edema 4834661 00 R60.9 Essential hypertension 90486157 I10 Electrocar diogram abnormal 993302140 R94.31 Coronary arteriosclerosis 88640426 I25.10 Chronic re nal insufficiency 541918294 N18.9 Diastolic dysfunction 35 67387 I51.9 [id number] MD LINDA Morrell [address] [place] [address] 02/16/2024 10:52:16 02/16/2024 11:21:17 Dyspnea on exertion 45211172 R06.09 Peripheral edema 1991031 00 R60.9 Essential hypertension 84467666 I10 Electrocar diogram abnormal 413147435 R94.31 Coronary arteriosclerosis 07220623 I25.10 Chronic re nal insufficiency 560389167 N18.9 Diastolic dysfunction 35 39867 I51.9 Aortic bart t dilatation 113392550 I77.810 Dyspnea 953965565 R06.00 Health Concerns Section Related Observation LastModified by Organization Detai ls LastModified Time None Recorded Concern Status LastModified by Organization Details LastModified Time None Recorded Advance Directives Directive None Recorded Payers Insurance Date Sequence Insurance Name Policy Number Policy Emanuel Covered Member ID Emanuel Member ID Guarantor Name 10/09/2024 1 [place]MEDICARE REPLACEMENT HMO) [id number] Denisa E Sanon [id number] Denisa E Sanon 08/21/2024 1 [employer] (MEDICARE REPLACEMENT/AD VANTAGE - PPO) Denisa E Sanon [id number] Denisa E Sanon 08/21/2024 1 [employer] (MEDICARE REPLACEMENT/AD VANTAGE - HMO) [id number] Denisa E Sanon [id number] Denisa E Sanon 08/21/2024 1 [employer] (MEDICARE REPLACEMENT/AD VANTAGE - PPO) Denisa E Sanon [id number] Denisa E Sanon Notes Date Note Type Note Provider Name and Address Organization Details Recorded Time 07/14/2023 text/html ROS as noted in the HPI Ortovisc #2 right kneePatient states the first injection made knee pain [email or web address] KELVIN ELI, RUTHANN [address] [facility],[address], [place], [address], [place] - [facility] & [place] 07/14/2023 14:26:27 07/21/2023 text/html ROS as noted in the HPI Pt is here for #3 rt orthrovisc inj. She reports the inj's have made her knee pain worse.[email or web address] KELVIN ELI NP [address] [facility], [place], [address], [place] [facility] [place] 07/21/2023 14:15:46 09/01/2023 text/html ROS as noted in the HPI 83 year old female here today for continued pain in right knee. Knee pain is radiating down lateral aspect. She thinks gel injections given beginning of July did not help at all, believes a nerve was hit . She is taking tylenol as needed, but no relief. She would like to discuss right knee replacement today. Vinod Pan MD [address] [place] [address],[address], [place], [address], [facility] & [place] 09/01/2023 13:22:17 11/16/2023 text/html doing well with the current dose of metolazone diuretics. She is felt well. The edema seems to be under good control. Her blood work has been fine. We will continue the same medical regimen. She is using the metolazone 3 times a week. No chest pain pressure or tightness. No shortness of breath orthopnea or PND Piotr Mullins MD [address] [place] [address],[address], [place], [address], [facility] - [facility] & [place] 11/17/2023 16:40:59 02/16/2024 text/html doing well. No chest pain pressure or tightness. Does have shortness of breath with exertion which is chronic. Overall she feels well. She was out of her torsemide for 3 or 4 days and gained 5 lb. She is back down to her normal weight and feels well. Piotr Mullins MD [address] [place] [address],[address], [place], [address], [facility] & [place] 02/16/2024 11:22:17 OBGyn Episode No OBEpisode recorded.
--- OUTSIDE RECORDS SUMMARY | 2025-01-28 14:12 | XMS_ITS | Referral Summary ---
Author Organization [employer] ([place], [place], [place], [place]) Address [address] [place] [address] Care Team Providers Care Auto Phone Installer Name Role Phone Story, Norma Reynolds BARREL CENTERER Primary Care Provider [phone]- [phone] Allergies Active Allergy Reactions Criticality Noted Date [...] the past 12 months, has t he [employer], [employer], oil, or water [email or web address] threatened to shut off services in your [...] Do you speak a language other than Faroese at [facility]? 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 Device Identifier Shelf Expiration Date Model / Serial / Lot Cement Bone Smplx Tobra 40gm 6197-9-001 - [id number] Implanted:Qty : 2 on 08/23/2024 by Kiran Olmos MD at [facility] IMPLANTS Right: Knee [employer] 10/16/2025 6197-9-00 1 / / [id number] Pwdr Cellerate Clgn 1gm Strl Mul-66-Bifech - [id number] Implanted:Qty : 1 on 08/23/2024 by Kiran Olmos MD at [facility] IMPLANTS Right: Knee [employer] 08/31/2026 WCI-01-SA CRXP / / [id number] Pwdr Cellerate Clgn 1gm Strl Gjy-13-Vnsnsc - [id number] Implanted:Qty : 1 on 10/11/2024 by Kiran Olmos MD at [facility] IMPLANTS Right: Knee [employer] 08/31/2026 [facility]--SA CRXP / / [id number] Imp Patella Itotal 35x7mm [id number] - [id number] Implanted:Qty : 1 on 08/23/2024 by Kiran Olmos MD at [facility] [employer]OTAL JOINT [employer]STRU[employer] Right: Knee [employer]IS 06/16/2026 [id number] / [id number] Kt Itotal Id Ps Full Xe Itps-Xe-1pc - [id number] Implanted:Qty : 1 on 08/23/2024 by Kiran Olmos MD at [facility] [employer] Right: Knee [employer] 08/16/2025 ITPS-XE-1 PC / [id number] / Imp Itotal Id Ps Fem Attila Lt [id number] - [id number] Implanted:Qty : 1 on 08/23/2024 by Kiran Olmos MD at [facility] [employer] Right: Knee [employer] 08/16/2025 [id number] / [id number] / Ty Itotal Id Ps Tib Attila Lt [id number] - [id number] Implanted:Qty : 1 on 08/23/2024 by Kiran Olmos MD at [facility] [employer] Right: Knee [employer] 08/16/2025 [id number] / [id number] / Procedures Procedure Name Priority Date/Time Associated Diagnosis Comments HEMOGLOBIN A1C Routine 08/09/2024 11:20 AM EDT Preop examination from Last 3 Months or Most Recently Relevant to Health Maintenance Results * (ABNORMAL) Hemoglobin A1c (08/09/2024 11:20 AM [...] Resul t [facility] [address] [phone] from Last 3 Months or Most Recently Relevant to Health Maintenance Additional Health Concerns Infection Onset Date 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 PPO MAP Advance Directives For more information, please contact: [phone] * DNR - Limited Additional Intervention (Latest [...] 6:38 AM 08/23/2024 11:33 AM Care Teams Auto Phone Installer Relationship Specialty Start Date End Date RoeNorma, BARREL CENTERER [address] [place] [address] PCP - General Nurse Practitioner 08/23/24
--- OUTSIDE RECORDS SUMMARY | 2025-01-28 14:12 | XMS_ITS | Clinical Summary ---
Author Organization [email or web address] ([place], [place], [place], [place]) Address [address] [place] [address] Care Team Providers Care Sound Effects Technician Name Role Phone Story, Norma Reynolds LION TAMER Primary Care Provider [phone]- [phone] Allergies Active Allergy Reactions Criticality Noted Date [...] the past 12 months, has t he [employer], [employer] oil, or water [employer] threatened to shut off services in your [...] Do you speak a language other than Vietnamese at [facility]? No 10/10/2024 Do you want [...] Shingles Vaccine (Zoster) (2 of 2) 04/07/20232022 Falls Risk Screening 04/19/2024 Medicare IPPE (Welcome to Medicare) [id number] 04/19/2024 COVID-19 VACCINE ( - season) 2024 Influenza Vaccine (#1) 2024 01/22/2020 Hemoglobin A1C 02/08/2025 08/09/2024 Tobacco Cessation Counseling and Screening (12+) 10/2510/25/2024 Pneumococcal 50+ years Completed 02/10/2023 Medical Devices Implanted Type Area Juvenile Correctional Officer Device Identifier Shelf Expiration Date Model / Serial / Lot Cement Bone Smplx Tobra 40gm 6197-9-001 - [id number] Implanted:Qty : 2 on 08/23/2024 by Kiran Olmos MD at [facility] IMPLANTS Right: Knee [employer] 10/16/2025 6197-9-00 1 / / [id number] Pwdr Cellerate Clgn 1gm Strl Qee-42-Ohkxat - [id number] Implanted:Qty : 1 on 08/23/2024 by Kiran Olmos MD at [facility] IMPLANTS Right: Knee [employer] [facility] 08/31/2026 [facility]-SA CRXP / / [id number] Pwdr Cellerate Clgn 1gm Strl Jzc-25-Exursy - [id number] Implanted:Qty : 1 on 10/11/2024 by Kiran Olmos MD at [facility] IMPLANTS Right: Knee [employer] 08/31/2026 WCI-01-SA CRXP / / [id number] Imp Patella Itotal 35x7mm [id number] - [id number] Implanted:Qty : 1 on 08/23/2024 by Kiran Olmos MD at [facility] [employer] Right: Knee [employer] 06/16/2026 [id number] Kt Itotal Id Ps Full Xe Itps-Xe-1pc - [id number] Implanted:Qty : 1 on 08/23/2024 by Kiran Olmos MD at [facility] [employer] Right: Knee [employer] 08/16/2025 ITPS-XE-1 PC / [id number] / Imp Itotal Id Ps Fem Attila Lt [id number] - [id number] Implanted:Qty : 1 on 08/23/2024 by Kiran Olmos MD at [facility] [employer] Right: Knee [employer] 08/16/2025 [id number] / [id number] / Ty Itotal Id Ps Tib Attila Lt [id number] - [id number] Implanted:Qty : 1 on 08/23/2024 by Kiran Olmos MD at [facility] [employer] Right: Knee [employer] 08/16/2025 [id number] / Procedures Procedure Name Priority Date/Time Associated Diagnosis Comments HEMOGLOBIN A1C Routine 08/09/2024 11:20 AM EDT Preop examination from Last 3 Months or Most Recently Relevant to Health Maintenance Results * (ABNORMAL) Hemoglobin A1c (08/09/2024 11:20 AM EDT) Hemoglobin A1C 7.7(H) 4.2 - 6.3 % 08/09/2024 12:43 PM EDT [facility] Comment: Hemoglobin A1C levels are related to mean glucose during the preceding 2-3 months. Less than 7% demonstrates glycemic control in diabetic patients. 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
--- OUTSIDE RECORDS SUMMARY | 2025-01-28 14:12 | XMS_ITS | Clinical Summary ---
Author Organization [facility] Address [address] [place] [address] Care Team Providers Care Outside Machinist Apprentice Name Role Phone Carlos Gonzalez MD Primary Care Provid er Family History Medical History Relation Name Comments [...] EST Plan of Treatment Not on file Care Teams Outside Machinist Apprentice Relationship Specialty Start Date End Date Carlos Gonzalez MD [address] [id number] PCP - General 08/30/20
--- OUTSIDE RECORDS SUMMARY | 2025-01-28 14:12 | XMS_ITS | Encounter Summary ---
Author Organization Healthcare Address [address] [place] [address] Care Team Providers Care Photoflash Powder Mixer Name Role Phone Carlos Gonzalez MD Primary Care Provid er Encounter Details Date Type Department Care Team (Late st Contact Info) Description 09/28/2024 Lab Requisition [facility] [address] [place] [address] System, Provider Not In, [address] [place] [address] Chronic respiratory failure with hypoxia; Osteoarthritis of [...] - 1,799 pg/mL 09/28/2024 11:58 PM EDT [facility] Blood Venous blood specimen / Unknown 09/28/2024 11:00 PM EDT 09/28/2024 11:42 PM EDT us Provider Not In System LAB BLOOD ORDERABLES F inal Result [facility] [address] [place] [address] documented in this encounter Visit Diagnoses Diagnosis Chronic respiratory failure with hypoxia Osteoarthritis of knee, unspecified Chronic kidney disease, unspecified Muscle weakness (generalized) documented in this encounter Care Teams Photoflash Powder Mixer Relationship Specialty Start Date End Date Carlos Gonzalez MD [address] [place], [place] [id number] PCP - General 08/30/20 documented as of this encounter
[2025-01-28 14:38] LABS: Hemoglobin A1C 6.3 % (4.0-6.0)
--- OUTSIDE RECORDS SUMMARY | 2025-01-28 15:11 | XMS_ITS | CCD ---
Author Organization Unknown Care Team Providers Care Consultant [employer]. Vice President [employer]Ex ) Name Role Phone Non Engaged, [facility] Primary Care Provider Unav ailable Unavailable Chronic Care Management Unavaila ble Summary Purpose DataExchange Family History Family History data not found Medication Administered No Medication Administered data Reason For Visit No Reason For Visit data Medical Equipment No Medical Equipment data Advance Directives No Advance Directive data
--- NOTE | 2025-01-28 15:45 | P.PN_ITS ---
Subjective *Date: 01/28/25 *Time: 15:45 Interval history: Patient continues to have pain with bearing weight on right lower extremity in boot, has significant lower extremity pitting edema. Will give additional dose of Bumex diuresis and follow-up response tomorrow. Pending placement. Exam Data for Last 24 hours Vital signs and Labs for Last 24 Hours: Temp Pulse Resp BP Pulse Ox O2 Del Method O2 Flow Rate 98.1 F 84 16 131/59 L 95 Nasal Cannula 2 01/28/25 11:07 01/28/25 12:39 01/28/25 11:07 01/28/25 11:07 01/28/25 12:39 01/28/25 14:28 01/28/25 14:28 FiO2 28 01/27/25 18:26 Laboratory Results - last 24 hr 01/27/25 16:38: POC Glucose 227 H 01/27/25 17:55: Sodium 135 L, Potassium 5.0, Chloride 99, Carbon Dioxide 27, Anion Gap 14.0, BUN 42 H, Creatinine 1.60 H D, Estimated Creat Clear 22, Estimated GFR 31 L, Est GFR ( Amer) 37 L D, Glucose 177 H D, Calcium 8.6 01/27/25 18:00: Chlamy pneumoniae PCR Not detected, Adenovirus (PCR) Not detected, B. pertussis DNA (PCR) Not detected, Coronavirus OC43 (PCR) Not detected, Coronavirus HKU1 (PCR) Not detected, Coronavirus 229E (PCR) Not detected, SARS-CoV-2 (PCR) Not detected, Coronavirus NL63 (PCR) Not detected, Human Metapneumovir PCR Not detected, Influenza A (H1) PCR Not detected, Influ A (H1N1/09) PCR Not detected, Influenza A (H3) PCR Not detected, Influenza Type A (PCR) Not detected, Influenza Type B (PCR) Not detected, M. pneumoniae (PCR) Not detected, Parainfluenza 1 (PCR) Not detected, Parainfluenza 2 (PCR) Not detected, Parainfluenza 3 (PCR) Not detected, Parainfluenza 4 (PCR) Not detected, RSV (PCR) Not detected, Entero/Rhino (PCR) Not detected 01/27/25 21:03: POC Glucose 146 H 01/28/25 05:08: POC Glucose 126 H 01/28/25 06:10: WBC 5.9, RBC 3.92 L, Hgb 11.4 L, Hct 35.2 L, MCV 89.8, MCH 29.1, MCHC 32.4, RDW 14.0, Plt Count 226, MPV 9.1, Neut % (Auto) 53.7, Lymph % (Auto) 31.5, [place] % (Auto) 11.2 H, Eos % (Auto) 3.0, Baso % (Auto) 0.3, Neut # (Auto) 3.2, Lymph # (Auto) 1.9, [place] # (Auto) 0.7, Eos # (Auto) 0.2, Baso # (Auto) 0.0, Sodium 134 L, Potassium 4.4, Chloride 99, Carbon Dioxide 29, Anion Gap 10.4, BUN 42 H, Creatinine 1.50 H, Estimated Creat Clear 23, Estimated GFR 33 L, Est GFR ( Amer) 40 L, Glucose 141 H D, Hemoglobin A1c 6.3 H, Calcium 8.1 L, Vitamin B12 336, Folate 6.12, TSH 3.26 I & O for Last 24 hours: Intake & Output 01/25/25 01/26/25 01/27/25 01/28/25 23:59 23:59 23:59 23:59 Intake Total 1380 / 1380 1280 / 1280 Output Total 625 / 850 875 / 875 Balance 755 / 530 405 / 405 Weight 123.105 kg 123.105 kg 124.454 kg Constitutional Constitutional: no acute distress *Routine HEENT Exam Head: Present normocephalic Eye: Present EOMI and PERRL ENT: Present mucous membranes moist *Routine Neck Exam Neck: Present supple; Absent lymphadenopathy *Routine Respiratory Exam Respiratory: Present CTA bilaterally *Routine Cardiovascular Exam Cardiovascular: Present RRR *Routine Abdominal Exam Abdominal: Present soft and normoactive bowel sounds; Absent tenderness *Routine Extremities Exam Extremities: Present edema; Absent cyanosis or clubbing Comments: Bilateral lower extremity pitting edema 3+. Right foot in boot. *Routine Skin Exam Skin: Present warm; Absent rash *Routine Neurological Exam Neurological: Present alert and oriented X3 Assessment and Plan *Assessment and plan (1) CHF (congestive heart failure): Status: Acute Qualifiers: Heart failure chronicity: unspecified Heart failure type: unspecified Qualified Code(s): I50.9 - Heart failure, unspecified Category: Medical Code(s): I50.9 - Heart failure, unspecified (2) Ankle fracture, right: Status: Acute Qualifiers: Encounter type: initial encounter Fracture type: closed Qualified Code(s): S82.891A - Other fracture of right lower leg, initial encounter for closed fracture Category: Medical Code(s): S82.891A - Other fracture of right lower leg, initial encounter for closed fracture Plan Denisa Sanon is a 84-year-old female who presented after a fall and found to have a right ankle fracture, became acutely hypoxic in the ER and was admitted for p hysical deconditioning and suspected HFpEF exacerbation. #Suspected HFpEF exacerbation #NSTEMI, likely type II #CKD stage IIIb ? On my evaluation of the patient, she has lower extremity pitting edema 3+ likely contributing to fall. Slightly improving today. ? Initial BNP 3760. Patient takes torsemide 50 mg and spironolactone 25 mg daily. ? Troponin 0.11, but not far from baseline of 0.09. 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 Denies chest pain, shortness of breath. ? Creatinine bumped from 1.3-1.5 from yesterday, in setting of diuresis. ? Will give one-time dose of IV Bumex 2 mg today and follow-up response given significant edema, spironolactone 25 mg daily. Follow-up urine output, renal function, electrolytes. ? Edema may be related to significant venous insufficiency. Would benefit from leg elevation, compression socks. ? Follow-up ECHO on Wednesday. #Right malleolar fracture #Physical deconditioning ? Orthopedic surgery consulted in the ED, recommended orthopedic boot. ? Patient is having pain with bearing weight, especially in setting of edema. ? PT/OT consulted, recommended SNF. Case management assisting with placement. Recently discharged from [facility] about 1 week ago ? Continue multimodal pain management with Tylenol, [place], morphine. Will avoid NSAIDs due to CKD. ? Normal TSH, B12, folate. #COPD ? Improved wheezing today, switch DuoNebs to as needed. Continue home Advair. #History of gout ? Continue home allopurinol 100 mg. #Type 2 diabetes ? Hemoglobin A1c 6.3%. Continue LDSSI, ACHS glucose checks. #Obesity ? Complicates all aspects of care. DNR/DNI DVT prophylaxis: Lovenox 30 mg
[2025-01-28] MEDS: BUMETANIDE 1MG/4ML VIAL 2 MG IV (15:55)
[2025-01-28] MEDS: SPIRONOLACTONE 25MG TABLET 25 MG PO (15:55)
[2025-01-28 16:17] LABS: POC Glucose,Bedside 205 gm/dL (70-110)
[2025-01-28 16:24] LABS: POC Glucose,Bedside 173 gm/dL (70-110)
--- NOTE | 2025-01-28 16:38 | PC.NURSE ---
PT IS SITTING UP IN THE CHAIR. ALERT AND ORIENTED X4. EATING AND DRINKING WELL. 2 MAX ASSIST WITH WALKER TO TRANSFER. 2-3+ EDEMA NOTED TO BLE. ORTHO BOOT NOTED RLE. O2 SATURATION HAS MAINTAINED 90-95% ON 2 L NC. LUNG SOUNDS DIMINISHED WITH SCATTERED RHONCHI. BATH AND LINEN CHANGED THIS SHIFT. REDNESS NOTED UNDER BREAST AND ABDOMEN. NYSTATIN APPLIED. WILL CONTINUE TO MONITOR.
[2025-01-28 21:45] LABS: POC Glucose,Bedside 201 gm/dL (70-110)
[2025-01-29] VITALS (9 sets, daily range): BP systolic 132–142; BP diastolic 49–78; PULSE 75–95; RESP 16–18; TEMP 36.6–37.3; O2SAT 92–96; BMI 46.8
[2025-01-29] MEDS: HYDROCODONE/APAP 5/325 MG TABLET 1 TAB PO (00:03)
--- NOTE | 2025-01-29 04:00 | PC.NURSE ---
Addendum entered by Yara Rodrigues RN 01/29/25 05:30: Oscillating fan provided, patient stated that she feels hot this morning. Oral temperature 99.2, skin is very warm to touch. Minimal perspiration. Room temperature decreased from 72 to 69 degrees as well. Original Note: Patient is alert and oriented x4. More conversational. She was observed to be resting in bed with eyes closed, respirations even and unlabored on 2 L of oxygen via nasal cannula, and no apparent distress throughout the majority of the night. A PRN duoneb was administered once by Maximino Hernandez RT this shift due to a shortness of breath complaint from the patient and audible wheezing; breathing treatment provided relief. Ortho-boot remains in place to right foot. Patient continues to complain of right ankle/leg pain; [place] was administered once per MAR for relief. Lower extremities remain swollen, elevation with pillows encouraged. Gets up with vast assistance, mechanical lift advised due to significant difficulties bearing weight and ambulating exhibited by the patient. She obliged to repositioning/turning this shift but continues to report excruciating pain during any movement. Scheduled medications administered per MAR, Nystatin powder applied to affected areas. Skin issues documented in this shift's biophysical. Diminished lung sounds and expiratory wheezing heard upon auscultation. A female purewick remains in place for urinary needs. ACHS glucose checks performed. At this time, the patient is resting in bed without any further complaints. No acute changes noted thus far. Call light within reach.
[2025-01-29 05:39] LABS: POC Glucose,Bedside 159 gm/dL (70-110)
[2025-01-29] MEDS: humaLOG 100 UNITS/ML 10ML VIAL (SSI) SUBCUT ×4 (06:10→20:59)
[2025-01-29] MEDS: IPRATROPIUM/ALBUTEROL 3 ML NEB IH (06:23)
[2025-01-29 06:48] LABS: Hematocrit 35.7 % (37.0-47.0); Hemoglobin 11.5 g/dL (12.2-16.2); Immature Granulocytes % 0.4 %; Mean Corpuscular HGB Conc 32.2 g/dL (31.8-35.4); Mean Corpuscular Hemoglobin 28.8 pg (27.0-31.2); Mean Corpuscular Volume 89.5 fl (81-99); Nucleated Red Blood Cells % 0 %; Platelet Count 252 K/mm3 (142-424); Red Blood Count 3.99 M/mm3 (4.20-5.40); Red Cell Distribution Width-SD 45.3 fL; White Blood Count 7.1 K/mm3 (4.8-10.8)
[2025-01-29 07:03] LABS: Chloride 96 mmol/L (98-107); Potassium 4.1 mmoL/L (3.5-5.1); Sodium 134 mmol/L (136-145)
[2025-01-29 07:06] LABS: Blood Urea Nitrogen 43 mg/dl (7-17); Creatinine Clearance Estimated 25 mL/min (50-200); Creatinine,Serum 1.40 mg/dl (0.52-1.04); Estimated Glomerular Filt Rate 36 ml/min (>60); GFR (African American) 43 ML/MIN (>60)
[2025-01-29 07:07] LABS: Anion Gap 11.1 mEq/L (5-15); Calcium 8.5 mg/dl (8.4-10.2); Carbon Dioxide 31 mmol/L (22.0-30.0); Glucose 158 mg/dl (74-100)
--- NOTE | 2025-01-29 09:00 | CA_ITS ---
APPROVED REPORT EXAM: Comprehensive 2D, Doppler, and color-flow Echocardiogram Production Welder: Yani Zapien CRT Ht: 5 ft 4 in Wt: 245lbs BSA: 2.13 BP: 122/87 mmHg Indications: COPD, NSTEMI, Diabetes, CAD, Hyperlipidemia, Hypertension/HDD, exsmoker 2D Dimensions LA Volume 52.80 mL LA Volume Index 24.20 mL/m2 (M/F) 16-34 M-Mode Dimensions RVDd 2.50 cm (0.9-2.6) LA Diam 4.00 cm (1.9-4.0) LVDd 5.84 cm (3.5-5.7) LVDs 4.15 cm (3.5-5.7) IVSd 1.21 cm (0.6-1.1) PWd 0.93 cm (0.6-1.1) EF (Teich) 54.80% FS 28.90% EDV (Teich) 169.20 mL TAPSE 3.15 (<1.7) ESV (Teich) 76.40 mL LV Diastology E Decel Time 150 (160-240 msec) E/A Ratio 0.68 MED A' 13.00 cm/s LAT A' 17.50 cm/s Aortic Valve AO Peak GR. 5.40 mmHg Mitral Valve MV E Max [place]. 79.0 (40-130 cm/s) MV A Velocity 116.0 (40-130 cm/s) E/A Ratio 0.68 MV PHT 44.0 ms Tricuspid Valve TR P. Velocity 139.00 cm/s RAP Estimate 10.00 mmHg RVSP 17.70 mmHg Left Ventricle The left ventricle is normal size. Left ventricular systolic function is mildly reduced. There is increased left ventricular wall thickness. There is mild global hypokinesis present. The septum is asynchronous. Transmitral Doppler flow pattern suggests impaired LV relaxation. LVEF is 45-50% Right Ventricle The right ventricle is mildly dilated. The right ventricular systolic function is normal. Atria The left atrium is mildly dilated. The right atrium is mildly dilated. There is no color Doppler evidence of interatrial shunt. Aortic Valve The aortic valve is mildly thickened. There is no hemodynamically significant aortic valvular stenosis. No aortic regurgitation is present. Mitral Valve The mitral valve is normal in structure. No evidence of mitral valve stenosis. Trace mitral regurgitation is present. Tricuspid Valve The tricuspid valve leaflets are thin and pliable. Trace tricuspid regurgitation. There is insufficient TR jet to estimate RVSP. Pulmonic Valve The pulmonary valve is grossly normal in structure. Trace pulmonic valve regurgitation is present. Great Vessels The aortic root is normal in size. IVC is normal in size and collapses >50% with inspiration. Pericardium There is no pericardial effusion. Other Information Study Quality: Technically Difficult Conclusion Technically difficult study. Mildly reduced LV systolic function (LVEF 45-50%). Asynchronous septum. Mild RV dilation. Mild biatrial dilation. No significant valvular stenosis or regurgitation. Electronically signed by : Evelia Obrien MD 01/29/2025 13:03:30
--- NOTE | 2025-01-29 09:03 | SW/DCPLANNER ---
Addendum entered by Eula Logan 01/31/25 09:41: Patient has been approved SNF level of care. Addendum entered by Eula Eaton 01/31/25 08:36: Per Marcie hagen/ [facility] auth is still pending at this time. Addendum entered by Eula Eaton 01/30/25 14:43: Per Marcie auth has been started today for SNF level of care. Addendum entered by Eula Eaton 01/30/25 10:28: [facility] is now able to accept this patient pending payment to the facility and signature to make facility trustee. Per patient her friend (Chloe) will take payment to the facility today and is agreeable to sign form after explained to patient by Sophie hagen/ [facility]. [facility] will start auth today once these things are completed. Per provider patient will have a heart cath today and possibly be ready for discharge tomorrow. CM will continue to follow up. Addendum entered by Eula Logan 01/29/25 11:58: [facility] is not able to accept patient. Patient is agreeable for information to be faxed to Stephan Rasheed. CM will continue to follow up. Original Note: I spoke w/ patient regarding plans once medically stable for discharge. PT evaluated patient and recommended placement at time of discharge. Patient is agreeable to placement and prefers to return to [facility]. Patient discharged from [facility] on 11/28 during a skilled stay. Patient information will be faxed to Marcie hagen/ [facility] today. CM will continue to follow up. Discharge date is unknown at this time.
--- NOTE | 2025-01-29 09:14 | HMH.OTEV ---
OT Evaluation Rehab OT IP Evaluation Start: 01/26/25 22:19 Freq: ONCE Status: Active Protocol: Document 01/29/25 09:08 LORINSHASITA (Rec: 01/29/25 09:14 LORINSHAISTA [id number]) Rehab OT IP Assessment Subjective History This is a 4-year-old female who has a past medical history significant for chronically elevated troponin, falls, obesity, asthma, obstructive sleep apnea, diastolic dysfunction, coronary artery disease, hypertension, and COPD who presents with a chief complaint of fall with pain to her right ankle post fall. Due to patient's symptoms, she presented to the emergency room for evaluation. While in the emergency room, patient underwent trauma scan and her right lower extremity was found to have a malleolus fracture. Patient's case was discussed with Dr. Mares who recommended patient patient on lower extremity boot. Patient did have an acute need for supplemental oxygen and informed ER provider that she has been having increased swelling to her lower extremities. As a result, patient has been admitted for further management. During my evaluation of the patient, patient reports that she has had multiple falls over the past several months. She reports that she fell this morning and was able to get up. Then after getting out of the shower she stepped wrong on her right foot and fell again. Post fall patient had pain to her right hip ankle. She is reporting no loss of consciousness but states she has been unsteady on her feet for some time. Patient states that she has been having increased swelling to her lower extremities which she believes is adding to her unsteady gait. She does not know if she has gained any weight. Patient reports her primary range conservationist is Dr. Adeel Klein she does not recall that she has had a 2D echo recently. Moreover, she does not report having a left heart cath or ischemic workup. She is currently denying any chest pain, lightheadedness, dizziness, fever, chills, rigors, nausea, vomiting, but or diarrhea. Chest x-ray was negative for any acute cardiopulmonary process. Tibia/fibula x-ray revealed a subtle step-off deformity in the lateral malleolus distally concerning for a small fracture and diffuse swelling throughout the lower extremity. CT scan of the thoracic spine was negative for any thoracic spine process. Pelvis were negative for any acute findings. CT scan of the lumbar spine was negative for any acute lumbar spine fracture. X-rays of the knee was negative for any acute findings. Additional scans were also without any abnormal findings. Additional pertinent labs obtained including neutrophils 82.4%, blood gases revealed pCO2 of 59 HCO3 of 31.2, venous lactic 2.1, carbon oxide of 31, BUN of 33, GFR 53, blood glucose of 38, AST of 47, initial troponin 0.09 and it trended up to 0.11 (patient has chronically elevated troponin), and patient's BNP was 3760. Patient live at home alone. Family comes over to assist as needed. Lives in 1 story home with no ANKUR. Uses a rollator to ambulate within home. Independent with ADLs . Subjective I want to go back home. Patient required assistance of two to complete bed mobility, transfers and repositioning upright in chair per nursing. Patient has requested to return to [facility] for Rehabilitation , however does not not know if she will be accepted. Patient is now requiring 1-2 assistance for all ADLS and fx'l mobility except for self feeding. Patient is a high fall risk with walking boot on R LE at this time. Objective Patient Orientation Person,Place,Name Right Upper WFL Extremity Gross ROM Left Upper Extremity WFL Gross ROM Bed Mobility bed mobility - supine/sit Assist Level Maximum x 2 (75% assist) Transfer Training Sit/Stand Transfer Assist Level Maximum x 2 (75% assist) Chair Transfer Sit to/from Ambulatory Technique Chair Transfer Rolling Walker Assistive Devices Rehab OT IP prob,goals,plan Problems Date of Evaluation: 01/29/25 OT IP Problems Bed Mobility,Transfers,Balance,Self care,Safety Rehab Potential Rehab Potential Good Equipment Needs Assistive Devices Rolling / Wheeled Walker Plan OT intervention Plan Bed Mobility,Transfers,Balance,Self care,Safety, Therapeutic Exercise OT Plan Frequency Daily Duration LOS Discharge Goals Bed Mobility Ability Assistance x1 Sit to Stand Chair Maximum x 1 (75% assist) Transfer Ability Chair Transfer Maximum x 1 (75% assist) Ability Chair Transfer Sit to/from Ambulatory Technique Chair Transfer Rolling Walker Assistive Devices Discharge Plan OT Discharge Plan Recommend rehab placement at this time. Patient is requiring Max to Max A X2 for ADLs and fx'l mobility at this time. Hx of falling and a high fall risk. Patient has requested to d/c to [facility] for rehab. To be determine at this time. Patient will continue OT IP services til medically d/c. Eval Complexity Eval Charge Codes 79093 - Low Complexity PHYSICIAN CERTIFICATION: I certify the specified therapy services for Denisa L Sanon are required, authorized, and reviewed every 30 days.
[2025-01-29] MEDS: NYSTATIN TOPICAL POWDER 30GM TP ×4 (09:27→21:01)
[2025-01-29] MEDS: SPIRONOLACTONE 25MG TABLET 25 MG PO (09:27)
[2025-01-29] MEDS: ALLOPURINOL 100MG TABLET 100 MG PO (09:27)
--- NOTE | 2025-01-29 11:26 | P.CONCA_ITS ---
History of Present Illness History of Present Illness Consult date: 01/29/25 Requesting physician: Kevin King Chief complaint: Fall History of present illness: This is an 84-year-old female who presented to the emergency department after a fall at home. The patient states that she had just gotten out of the shower and she fell and had immediate pain and swelling into her right ankle. She states that she knew that she had broken a bone immediately. The patient was found to have a malleolus fracture. The patient has been put in the boot due to the fracture. Cardiology was consulted due to her chronically elevated troponin. She denies any chest pain or pressure. She denies any shortness of breath. She does have lower extremity edema which she states has been going on for the last several weeks. She states that she does feel like the edema in her legs did contribute to her unsteady weight. She did not really notice any weight gain. Her primary office machinery or equipment installer is Dr. Toledo. She states that she has been feeling much better since being in the hospital and states that she does not have anything wrong with her heart. She denies any fever, chills, nausea, vomiting, diarrhea, PND or orthopnea. [facility] Disclaimer: The information contained in this section may have been updated after the patient was seen, as this information can be updated by other users. Medical History (Updated 01/29/25 @ 11:31 by Lorena Dudley APRN) Elevated brain natriuretic peptide (BNP) level Syncope, near Hypoglycemia Fall Fall Self care deficit due to hearing impairment Obesity (BMI 30-39.9) History of smoking 25-50 pack years Stopped smoking with greater than 20 pack year history Asthma MARCELA (obstructive sleep apnea) Diabetes Brain tumor Diastolic dysfunction CAD (coronary artery disease) HTN (hypertension) COPD (chronic obstructive pulmonary disease) Surgical History Status post right knee replacement H/O cardiac catheterization H/O: hysterectomy History of appendectomy Hx of tonsillectomy History of cholecystectomy H/O oophorectomy Family History Other Hypertension Stroke Social History Smoking Status: Never smoker second hand exposure: No alcohol intake: never substance use type: denies use current occupational status: retired Travel in the last 8 weeks?: None household members: none housing: house caffeine: No Have you lived/traveled outside [place] in past 30 days?: No Contact w/someone who lives/traveled outside [place] past 30 days?: No Exposure to someone with infectious disease in past 14 days?: No Do you have a fever (greater than 100.4 F or 38 C)?: No Have you tested positive for COVID-19?: No Exposed to someone with COVID-19 in past 14 days?: No Do you have a sore throat?: No Do you have a cough?: No Do you have any weakness?: No Do you have any diarrhea?: No Are you experiencing any unusual bleeding?: No Do you have any muscle aches/pain?: No Do you have any abdominal pain?: No Are you experiencing loss of taste or smell?: No Review of Systems Review of Systems Review of systems:: pertinent systems reviewed and negative unless documented below Constitutional Constitutional: Reports system reviewed and no additional complaints, except as documented, Reports frequent falls and Reports weakness Eyes Eyes: Reports system reviewed and no additional complaints, except as documented ENT Ears, Nose, Mouth, and Throat: Reports system reviewed and no additional complaints, except as documented and Reports disequilibrium *Cardiovascular Cardiovascular: Reports system reviewed and no additional complaints, except as documented and Reports leg edema *Respiratory Respiratory: Reports system reviewed and no additional complaints, except as documented *Gastrointestinal Gastrointestinal: Reports system reviewed and no additional complaints, except as documented *Genitourinary Genitourinary: Reports system reviewed and no additional complaints, except as documented *Musculoskeletal Musculoskeletal: Reports system reviewed and no additional complaints, except as documented and Reports abnormal gait Integumentary/Breasts Skin/Breast: Reports system reviewed and no additional complaints, except as documented *Neurologic Neurologic: Reports system reviewed and no additional complaints, except as documented, Reports abnormal gait, Reports disequilibrium, Reports frequent falls and Reports weakness Psychiatric Psychiatric: Reports system reviewed and no additional complaints, except as documented Endocrine Endocrine: Reports system reviewed and no additional complaints, except as documented Hematologic/Lymphatic Hematologic/Lymphatic: Reports system reviewed and no additional complaints, except as documented Allergic/Immunologic Allergic/Immunologic: Reports system reviewed and no additional complaints, except as documented Exam Data for Last 24 hours Vital signs and Labs for Last 24 Hours: Temp Pulse Resp BP Pulse Ox O2 Del Method O2 Flow Rate 98.1 F 89 18 140/62 96 Nasal Cannula 2 01/29/25 08:00 01/29/25 08:00 01/29/25 08:00 01/29/25 08:00 01/29/25 08:00 01/29/25 09:00 01/29/25 09:00 FiO2 28 01/27/25 18:26 Laboratory Results - last 24 hr 01/28/25 06:10: Hemoglobin A1c 6.3 H 01/28/25 11:48: POC Glucose 205 H 01/28/25 15:59: POC Glucose 173 H 01/28/25 21:35: POC Glucose 201 H 01/29/25 05:25: POC Glucose 159 H 01/29/25 05:57: WBC 7.1, RBC 3.99 L, Hgb 11.5 L, Hct 35.7 L, MCV 89.5, MCH 28.8, MCHC 32.2, RDW 13.8, Plt Count 252, MPV 9.5, Neut % (Auto) 65.6, Lymph % (Auto) 19.4, [place] % (Auto) 11.2 H, Eos % (Auto) 3.0, Baso % (Auto) 0.4, Neut # (Auto) 4.6, Lymph # (Auto) 1.4, [place] # (Auto) 0.8, Eos # (Auto) 0.2, Baso # (Auto) 0.0, Sodium 134 L, Potassium 4.1, Chloride 96 L, Carbon Dioxide 31 H, Anion Gap 11.1, BUN 43 H, Creatinine 1.40 H, Estimated Creat Clear 25, Estimated GFR 36 L, Est GFR ( Amer) 43 L, Glucose 158 H, Calcium 8.5 I & O for Last 24 hours: Intake & Output 01/26/25 01/27/25 01/28/25 01/29/25 23:59 23:59 23:59 23:59 Intake Total 1380 / 1380 1760 / 1910 690 / 690 Output Total 625 / 850 1525 / 1850 325 / 325 Balance 755 / 530 235 / 60 365 / 365 Weight 271 lb 6.4 oz 271 lb 6.4 oz 274 lb 6 oz 274 lb 7 oz Constitutional Constitutional: no acute distress and morbidly obese *Routine HEENT Exam Head: Present normocephalic and atraumatic ENT: Present mucous membranes moist *Routine Neck Exam Neck: Present supple, full ROM and normal carotid upstroke; Absent JVD, carotid bruit or lymphadenopathy *Routine Respiratory Exam Respiratory: Present CTA bilaterally, normal respiratory effort, able to speak in complete sentences and symmetric chest movement *Routine Cardiovascular Exam Cardiovascular: Present RRR, Normal S1 and Normal S2; Absent murmur or gallop *Routine Abdominal Exam Abdominal: Present soft and normoactive bowel sounds; Absent tenderness, distended or organomegaly *Routine Extremities Exam Extremities: Present full ROM, pulses intact and normal capillary refill; Absent cyanosis, clubbing or edema *Routine Skin Exam Skin: Present intact and warm; Absent erythema *Routine Neurological Exam Neurological: Present alert, oriented X3 and CN II-XII intact; Absent sensory deficit or motor deficit Routine Psychiatric Exam Psychiatric: Present normal affect Meds Home Medications and Allergies Home Medications ?Medication ?Instructions ?Recorded ?Confirmed ?Type albuterol sulfate 90 mcg/actuation 4 inh inhalation Q4 HP PRN 10/04/24 01/27/25 Rx aerosol inhaler shortness of breath or wheez ing 30 days #8.5 grams allopurinol 100 mg tablet 100 mg PO DAILY 30 days #30 tabs 10/04/24 01/27/25 Rx cholecalciferol (vitamin D3) 50 50 mcg PO DAILY 30 day s #30 tabs 10/04/24 01/27/25 Rx mcg (2,000 unit) chewable tablet fluticasone 500 mcg-salmeterol 50 1 inh inhalation BID RT #60 ea 10/04/24 01/27/25 Rx mcg/dose blistr powdr for inhalation (Advair Diskus) spironolactone 25 mg tablet 25 mg PO DAILY 30 days #30 tabs 10/04/24 01/27/25 Rx torsemide 100 mg tablet 50 mg (1/2 x 100 mg) PO ANAMIKA Y 30 10/04/24 01/27/25 Rx days #15 tabs tramadol 50 mg tablet 50 mg PO Q6HP PRN Severe Chapis n 11/26/24 01/27/25 History (Scale Score 7-10) insulin aspart U-100 100 unit/mL 16 unit SQ AC 5 01/27/25 History (3 mL) subcutaneous pen (Novolog FlexPen U-100 Insulin aspart) insulin glargine 100 unit/mL (3 40 unit SQ BID 5 01/27/25 History mL) subcutaneous pen (Lantus Solostar U-100 Insulin) New Prescriptions to Start Prescriptions: Allergies Allergy/AdvReac Type Severity Reaction Status Date / Time Penicillins Allergy Intermediate Unknown Verified 10/04/24 10:56 allergy reaction codeine (CODEINE) Allergy Mild Unknown Verified 10/04/24 10:56 allergy reaction iodine (IODINE) Allergy Mild Unknown Verified 10/04/24 10:56 allergy reaction latex (LATEX) Allergy Mild Unknown Verified 10/04/24 10:56 allergy reaction oxycodone (OXYCODONE) Allergy Mild Unknown Verified 10/04/24 10:56 allergy reaction Sulfa (Sulfonamide Allergy Mild Unknown Verified 10/04/24 10:56 Antibiotics) (SULFA allergy (SULFONAMIDE ANTIBIOTICS)) reaction Cephalosporins Allergy Unknown Verified 10/04/24 10:56 allergy reaction doxycycline Allergy Unknown Verified 10/04/24 10:56 allergy reaction exenatide (From [place]) Allergy Unknown Verified 10/04/24 10:56 allergy reaction glyburide Allergy Unknown Verified 10/04/24 10:56 allergy reaction hyoscyamine (From Levbid) Allergy Unknown Verified 10/04/24 10:56 allergy reaction Assessment and Plan *Assessment and plan (1) Elevated troponin: Status: Acute Category: Medical Code(s): R79.89 - Other specified abnormal findings of blood chemistry (2) CHF (congestive heart failure): Status: Acute Qualifiers: Heart failure chronicity: unspecified Heart failure type: unspecified Qualified Code(s): I50.9 - Heart failure, unspecified Category: Medical Code(s): I50.9 - Heart failure, unspecified (3) Volume overload: Status: Acute Qualifiers: Hypervolemia type: other Qualified Code(s): E87.79 - Other fluid overload Category: Medical Code(s): E87.70 - Fluid overload, unspecified (4) MARCELA (obstructive sleep apnea): Status: Acute Category: Medical Code(s): G47.33 - Obstructive sleep apnea (adult) (pediatric) (5) Type 2 diabetes mellitus: Status: Chronic Qualifiers: Diabetes mellitus complication status: with other specified complication 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: unspecified custodial insulin use status Qualified Code(s): E11.69 - Type 2 diabetes mellitus with other speci fied complication Category: Medical Code(s): E11.9 - Type 2 diabetes mellitus without complications (6) Hypertension: Status: Acute Qualifiers: Hypertension type: primary hypertension Qualified Code(s): I10 - Essential (primary) hypertension Category: Medical Code(s): I10 - Essential (primary) hypertension (7) Weakness: Status: Acute Category: Medical Code(s): R53.1 - Weakness (8) COPD (chronic obstructive pulmonary disease): Status: Acute Qualifiers: COPD type: unspecified COPD Qualified Code(s): J44.9 - Chronic obstructive pulmonary disease, unspecified Category: Medical Code(s): J44.9 - Chronic obstructive pulmonary disease, unspecified (9) Morbid obesity with BMI of 40.0-44.9, adult: Status: Acute Category: Medical Code(s): E66.01 - Morbid (severe) obesity due to excess calories; Z68.41 - Body mass index [BMI] 40.0-44.9, adult (10) CKD (chronic kidney disease): Status: Acute Qualifiers: Chronic kidney disease stage: unspecified stage Qualified Code(s): N18.9 - Chronic kidney disease, unspecified Category: Medical Code(s): N18.9 - Chronic kidney disease, unspecified (11) Ankle fracture, right: Status: Acute Qualifiers: Encounter type: initial encounter Fracture type: closed Qualified Code(s): S82.891A - Other fracture of right lower leg, initial encounter for closed fracture Category: Medical Code(s): S82.891A - Other fracture of right lower leg, initial encounter for closed fracture Plan Plan: 1. The patient was admitted to the hospital with a right ankle fracture. She is currently in a boot. Will defer to the hospitalist and orthopedics. 2. The patient was found to have an elevated troponin on admission. However, her troponin is chronically elevated. She denies any chest pain or pressure. She denies any shortness of breath. She states that nothing is wrong with her heart so she really does not need any heart testing and is not sure why cardiology is coming to see her. I had a long discussion with the patient about her elevated troponin and she now understands. Will obtain an echocardiogram to evaluate her LV function. 3. If the echocardiogram shows her EF is normal then she would benefit from an outpatient ischemic evaluation once she is discharged from the hospital to make sure she has no ischemia due to her elevated troponin. If her EF is down then she will need an ischemic evaluation while hospitalized. 4. The patient did have an elevated troponin. She is currently being diuresed for a CHF exacerbation. Will continue Bumex 1 mg IV twice daily. 5. Her blood pressure is well-controlled. 6. Her LDL goal is less than 100. Will get a lipid panel. 7. Further recommendations will be made pending the patient's response to treatment and the results of her echocardiogram today. Thank you for the opportunity to help participate in the care of this patient. All recommendations and orders are per Dr. Obrien. Echocardiogram showed 45 percent but borders were hard to visualize. Will repeat a limited echocardiogram with [facility] to reevaluate EF. Continue with diuresis at this time.
[2025-01-29] MEDS: BUMETANIDE 1MG/4ML VIAL 1 MG IV ×2 (12:37→20:59)
[2025-01-29] MEDS: POLYETHYLENE GLYCOL 3350 17 GM PACKET PO (12:37)
[2025-01-29 13:31] LABS: POC Glucose,Bedside 221 gm/dL (70-110)
--- NOTE | 2025-01-29 14:00 | P.PN_ITS ---
<Statement entered by Kevin King MD - 01/29/25 17:42> Rounded on patient after nurse practitioner. Personally examined and interviewed patient. Agree with exam findings and care plan as documented. Subjective *Date: 01/29/25 *Time: 11:00 Interval history: Patient doing well this morning, sitting up in chair, talking on the phone. States she feels she is doing better, awaiting placement. Patient is in boot on right lower extremity. Left lower extremity 2+ edema, patient receiving Bumex daily. Echo pending cardiology consulted. Medical Exam Vital signs and Labs for Last 24 Hours: Vital Signs Temp Pulse Pulse Resp BP Pulse Ox O2 Del Method 01/29/25 12:56 Nasal Cannula 01/29/25 11:59 98.1 F 79 18 138/64 96 01/29/25 11:00 Nasal Cannula 01/29/25 09:00 Nasal Cannula 01/29/25 08:00 98.1 F 89 18 140/62 96 01/29/25 08:00 Nasal Cannula 01/29/25 08:00 90 01/29/25 06:30 Nasal Cannula 01/29/25 06:25 85 01/29/25 06:25 85 01/29/25 06:25 95 Nasal Cannula 01/29/25 05:00 Nasal Cannula 01/29/25 04:00 75 01/29/25 04:00 99.2 F 82 16 132/61 92 L 01/29/25 03:00 Nasal Cannula 01/29/25 01:00 Nasal Cannula 01/29/25 00:00 95 H 01/29/25 00:00 98.2 F 82 18 134/49 L 95 01/28/25 23:00 Nasal Cannula 01/28/25 22:13 95 H 01/28/25 22:13 98 H 01/28/25 21:00 Nasal Cannula 01/28/25 20:00 Nasal Cannula 01/28/25 20:00 90 01/28/25 20:00 98.2 F 82 18 140/73 95 Room Air 01/28/25 19:00 92 L Room Air 01/28/25 18:56 Nasal Cannula 01/28/25 16:47 Nasal Cannula 01/28/25 16:00 80 01/28/25 15:59 98 F 85 18 146/81 H 94 L Room Air 01/28/25 14:28 Nasal Cannula O2 Flow Rate 01/29/25 12:56 2 01/29/25 11:59 01/29/25 11:00 2 01/29/25 09:00 2 01/29/25 08:00 01/29/25 08:00 2 01/29/25 08:00 01/29/25 06:30 2 01/29/25 06:25 01/29/25 06:25 01/29/25 06:25 2 01/29/25 05:00 2 01/29/25 04:00 01/29/25 04:00 01/29/25 03:00 2 01/29/25 01:00 2 01/29/25 00:00 01/29/25 00:00 01/28/25 23:00 2 01/28/25 22:13 01/28/25 22:13 01/28/25 21:00 2 01/28/25 20:00 2 01/28/25 20:00 01/28/25 20:00 01/28/25 19:00 01/28/25 18:56 2 01/28/25 16:47 2 01/28/25 16:00 01/28/25 15:59 01/28/25 14:28 2 Intake and Output 01/28/25 01/29/25 01/29/25 23:59 07:59 15:59 Intake Total 480 / 1910 150 / 690 540 / 690 Output Total 500 / 1850 325 / 325 Balance -20 -175 / 365 540 / 365 Intake: Intake, Oral Amount 480 / 1910 150 / 690 540 / 690 Output: Output, Urine Amount 500 / 1850 325 / 325 Other: Number of Unmeasured Voids 0 Weight 124.483 kg Patient Weight 01/29/25 23:59 Weight 124.483 kg Laboratory Results - last 24 hr 01/28/25 06:10: Hemoglobin A1c 6.3 H 01/28/25 11:48: POC Glucose 205 H 01/28/25 15:59: POC Glucose 173 H 01/28/25 21:35: POC Glucose 201 H 01/29/25 05:25: POC Glucose 159 H 01/29/25 05:57: WBC 7.1, RBC 3.99 L, Hgb 11.5 L, Hct 35.7 L, MCV 89.5, MCH 28.8, MCHC 32.2, RDW 13.8, Plt Count 252, MPV 9.5, Neut % (Auto) 65.6, Lymph % (Auto) 19.4, [place] % (Auto) 11.2 H, Eos % (Auto) 3.0, Baso % (Auto) 0.4, Neut # (Auto) 4.6, Lymph # (Auto) 1.4, [place] # (Auto) 0.8, Eos # (Auto) 0.2, Baso # (Auto) 0.0, Sodium 134 L, Potassium 4.1, Chloride 96 L, Carbon Dioxide 31 H, Anion Gap 11.1, BUN 43 H, Creatinine 1.40 H, Estimated Creat Clear 25, Estimated GFR 36 L, Est GFR ( Amer) 43 L, Glucose 158 H, Calcium 8.5 01/29/25 12:42: POC Glucose 221 H I & O for Labs for Last 24 Hours: Intake & Output 01/26/25 01/27/25 01/28/25 01/29/25 23:59 23:59 23:59 23:59 Intake Total 1380 / 1380 1760 / 1910 690 / 690 Output Total 625 / 850 1525 / 1850 325 / 325 Balance 755 / 530 235 / 60 365 / 365 Weight 123.105 kg 123.105 kg 124.454 kg 124.483 kg Constitutional: Present no acute distress, morbidly obese, chronically ill appearing and cooperative Head: Present atraumatic ENT: Present normal exam Neck: Present normal inspection Respiratory: Present wheezes (Expiratory), normal respiratory effort, able to speak in complete sentences and symmetric chest movement Cardiac: Present Reg Rate and Rhythm; Absent No Murmur GI: Present soft and normal bowel sounds; Absent distention or tenderness Rectal (female): Present deferred (female): Present deferred Extremities: Present normal inspection Comment:: Right lower extremity in walking boot. Skin: Present intact and dry; Absent wounds or rash Neuro: Present Weakness, alert, awake, oriented x 3 and moves all extremities Assessment and Plan *Assessment and plan (1) CHF (congestive heart failure): Status: Acute Qualifiers: Heart failure chronicity: unspecified Heart failure type: unspecified Qualified Code(s): I50.9 - Heart failure, unspecified Category: Medical Code(s): I50.9 - Heart failure, unspecified (2) Ankle fracture, right: Status: Acute Qualifiers: Encounter type: initial encounter Fracture type: closed Qualified Code(s): S82.891A - Other fracture of right lower leg, initial encounter for closed fracture Category: Medical Code(s): S82.891A - Other fracture of right lower leg, initial encounter for closed fracture (3) CKD (chronic kidney disease): Status: Acute Qualifiers: Chronic kidney disease stage: unspecified stage Qualified Code(s): N18.9 - Chronic kidney disease, unspecified Category: Medical Code(s): N18.9 - Chronic kidney disease, unspecified (4) Morbid obesity with BMI of 40.0-44.9, adult: Status: Acute Category: Medical Code(s): E66.01 - Morbid (severe) obesity due to excess calories; Z68.41 - Body mass index [BMI] 40.0-44.9, adult (5) COPD (chronic obstructive pulmonary disease): Status: Acute Qualifiers: COPD type: unspecified COPD Qualified Code(s): J44.9 - Chronic obstructive pulmonary disease, unspecified Category: Medical Code(s): J44.9 - Chronic obstructive pulmonary disease, unspecified (6) Declining functional status: Status: Acute Category: Medical Code(s): R53.81 - Other malaise (7) Falls frequently: Status: Acute Category: Medical Code(s): R29.6 - Repeated falls (8) NSTEMI (non-ST elevated myocardial infarction): Status: Acute Category: Medical Code(s): I21.4 - Non-ST elevation (NSTEMI) myocardial infarction (9) Volume overload: Status: Acute Qualifiers: Hypervolemia type: other Qualified Code(s): E87.79 - Other fluid overload Category: Medical Code(s): E87.70 - Fluid overload, unspecified (10) Type 2 diabetes mellitus: Status: Chronic Qualifiers: Diabetes mellitus group home insulin use: 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 Sanon is a 84-year-old female who presented to the emergency department after a fall at home and was found to have a right ankle fracture. Patient also had an acute episode of hypoxia in the emergency department and was admitted for physical deconditioning and suspected HFpEF exacerbation. Hospital medicine agreed to accept the patient, plan of care as follows: #Suspected HFpEF exacerbation #NSTEMI, likely type II #CKD stage IIIb ? On my evaluation of the patient, she has lower extremity pitting edema 2+ likely contributing to fall. Slightly improving today. ? Initial BNP 3760. Patient takes torsemide 50 mg and spironolactone 25 mg daily. ? Troponin 0.11, but not far from baseline of 0.09. 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 Denies chest pain, shortness of breath. ? Creatinine baseline appears to be 1.1, slightly elevated at 1.4?in the setting of diuresis. ? Patient given one-time dose of Bumex 2 mg IV on admission, transition to Bumex 1 mg twice daily L. ? Edema may be related to significant venous insufficiency. Would benefit from leg elevation, compression socks. ? Echo shows LVEF of 45 to 50%. Cardiology consulted. #Right malleolar fracture #Physical deconditioning ? Orthopedic surgery consulted in the ED, recommended orthopedic boot. ? Patient is having pain with bearing weight, especially in setting of edema. ? PT/OT consulted, recommended SNF. Case management assisting with placement. Recently discharged from [facility] about 1 week ago. ? Continue multimodal pain management with Tylenol, [place], morphine. Will avoid NSAIDs due to CKD. ? Normal TSH, B12, folate. #COPD ? Improved wheezing today, switch DuoNebs to as needed. Continue home Advair. #History of gout ? Continue home allopurinol 100 mg. #Type 2 diabetes ? Hemoglobin A1c 6.3%. Continue LDSSI, ACHS glucose checks. #Obesity ? Complicates all aspects of care. DNR/DNI DVT prophylaxis: Lovenox 30 mg
--- NOTE | 2025-01-29 14:03 | CA_ITS ---
APPROVED REPORT EXAM: Limited 2D Echocardiogram with contrast Process Developer: Yani Zapien CRT Ht: 5 ft 4 in Wt: 245lbs BSA: 2.13 BP: 123/87 mmHg Indications: EF check with definity Echo Enhancing Agent Indication: Endocardial border delineation Agent(s) / Amount(s) Used: Definity 2 cc Comments: Definity ordered. Other Information Study Quality: Fair Conclusion This is a limited TTE to evaluate for LV systolic function. Limited windows are obtained. Ultrasound enhancing agent was administered to better delineate the LV endocardial borders. The left ventricle is normal in size. There is increased LV wall thickness. There is low-normal global LV systolic function. There is mild hypokinesis of the LV apical wall. LVEF is 50%. Electronically signed by : Evelia Obrien MD 01/29/2025 22:33:21
[2025-01-29] MEDS: DEFINITY US ECHO CONTRAST 2ML INJ 2 MG IV (16:09)
--- NOTE | 2025-01-29 16:46 | PC.NURSE ---
Pt A&O x4. Has spent half of the shift in the chair and tolerated it well. She is currently in the bed. Bed bath given by staff and linens changed. Pt has diuresed well. Purewick is in place. No complaints stated at this time. Call light within reach.
[2025-01-29 17:56] LABS: POC Glucose,Bedside 168 gm/dL (70-110)
[2025-01-29 20:02] LABS: POC Glucose,Bedside 215 gm/dL (70-110)
[2025-01-30] VITALS (25 sets, daily range): BP systolic 112–155; BP diastolic 48–96; PULSE 62–96; RESP 16–20; TEMP 36.6–36.9; O2SAT 90–100; BMI 46.3
[2025-01-30] MEDS: IPRATROPIUM/ALBUTEROL 3 ML NEB IH ×2 (00:36→10:47)
--- NOTE | 2025-01-30 03:55 | PC.NURSE ---
Pt AOx4. Tolerating 2L O2. Currently resting in bed with eyes closed. Pt had bowel movement earlier in the shift. Purewick in place. Diuresing well. Respirations even and unlabored. Bed low, locked, and call light is in reach.
[2025-01-30 05:43] LABS: POC Glucose,Bedside 153 gm/dL (70-110)
[2025-01-30 06:41] LABS: Hematocrit 36.2 % (37.0-47.0); Hemoglobin 11.5 g/dL (12.2-16.2); Immature Granulocytes % 0.4 %; Mean Corpuscular HGB Conc 31.8 g/dL (31.8-35.4); Mean Corpuscular Hemoglobin 28.4 pg (27.0-31.2); Mean Corpuscular Volume 89.4 fl (81-99); Nucleated Red Blood Cells % 0 %; Platelet Count 258 K/mm3 (142-424); Red Blood Count 4.05 M/mm3 (4.20-5.40); Red Cell Distribution Width-SD 44.9 fL; White Blood Count 8.5 K/mm3 (4.8-10.8)
[2025-01-30 06:58] LABS: Albumin Level 3.3 g/dl (3.5-5.0); Chloride 96 mmol/L (98-107); Potassium 4.2 mmoL/L (3.5-5.1); Sodium 133 mmol/L (136-145)
[2025-01-30 07:01] LABS: Alanine Aminotransferase 20 U/L (12-78); Alkaline Phosphatase 87 U/L (38-126); Anion Gap 8.2 mEq/L (5-15); Aspartate Amino Transferase 32 U/L (14-36); Bilirubin,Direct 0.0 mg/dl (0.0-0.4); Bilirubin,Indirect 0.8 mg/dL (0.0-0.9); Bilirubin,Total 0.8 mg/dl (0.2-1.3); Bilirubin,Unconjugated 0.8 mg/dL (0.0-1.1); Blood Urea Nitrogen 37 mg/dl (7-17); Carbon Dioxide 33 mmol/L (22.0-30.0); Cholesterol 156 mg/dl (140-200); Creatinine Clearance Estimated 25 mL/min (50-200); Creatinine,Serum 1.40 mg/dl (0.52-1.04); Estimated Glomerular Filt Rate 36 ml/min (>60); GFR (African American) 43 ML/MIN (>60); Total Protein,Serum 6.2 g/dl (6.3-8.2); Triglycerides 87 mg/dl (30-150)
[2025-01-30 07:02] LABS: Calcium 8.3 mg/dl (8.4-10.2); Glucose 154 mg/dl (74-100); HDL Cholesterol 41 mg/dl (40-60)
--- NOTE | 2025-01-30 09:26 | P.PN_ITS ---
<Statement entered by Kevin King MD - 01/30/25 19:23> Rounded on patient after nurse practitioner. Personally examined and interviewed patient. Agree with exam findings and care plan as documented. Subjective *Date: 01/30/25 *Time: 11:00 Interval history: Patient is doing well, up to chair. On baseline 2 L O2. Patient does complain of intermittent shortness of breath, worse with exertion. Cardiology consulted and recommending LHC due to global hypokinesis on echo. Patient is agreeable. Plans for LHC this afternoon. Plans to increase diuretic to Bumex 2 mg twice daily IV. Monitoring strict I's and O's. Medical Exam Vital signs and Labs for Last 24 Hours: Vital Signs Temp Pulse Pulse Resp BP Pulse Ox O2 Del Method 01/30/25 09:00 Nasal Cannula 01/30/25 08:00 Nasal Cannula 01/30/25 08:00 98 F 62 20 155/69 H 94 L Nasal Cannula 01/30/25 06:51 Nasal Cannula 01/30/25 06:20 79 01/30/25 06:20 85 01/30/25 06:20 94 L Nasal Cannula 01/30/25 05:00 Nasal Cannula 01/30/25 04:00 70 01/30/25 04:00 97.9 F 84 18 147/67 H 95 Nasal Cannula 01/30/25 03:00 Room Air 01/30/25 01:00 Nasal Cannula 01/30/25 00:50 88 01/30/25 00:00 75 01/30/25 00:00 98.3 F 84 18 155/72 H 95 Nasal Cannula 01/29/25 23:00 Nasal Cannula 01/29/25 21:00 Nasal Cannula 01/29/25 20:00 75 01/29/25 20:00 98.2 F 84 16 142/63 H 92 L Room Air 01/29/25 20:00 Nasal Cannula 01/29/25 18:52 Nasal Cannula 01/29/25 18:34 95 Nasal Cannula 01/29/25 17:00 Nasal Cannula 01/29/25 16:00 97.9 F 76 18 138/78 96 Nasal Cannula 01/29/25 15:58 80 01/29/25 15:00 Nasal Cannula 01/29/25 13:00 Nasal Cannula 01/29/25 12:56 Nasal Cannula 01/29/25 11:59 98.1 F 79 18 138/64 96 01/29/25 11:00 Nasal Cannula O2 Flow Rate 01/30/25 09:00 2 01/30/25 08:00 2 01/30/25 08:00 2 01/30/25 06:51 2 01/30/25 06:20 01/30/25 06:20 01/30/25 06:20 2 01/30/25 05:00 2 01/30/25 04:00 01/30/25 04:00 2 01/30/25 03:00 01/30/25 01:00 2 01/30/25 00:50 01/30/25 00:00 01/30/25 00:00 2 01/29/25 23:00 2 01/29/25 21:00 2 01/29/25 20:00 01/29/25 20:00 01/29/25 20:00 2 01/29/25 18:52 2 01/29/25 18:34 2 01/29/25 17:00 2 01/29/25 16:00 01/29/25 15:58 01/29/25 15:00 2 01/29/25 13:00 2 01/29/25 12:56 2 01/29/25 11:59 01/29/25 11:00 2 Intake and Output 01/29/25 01/30/25 01/30/25 23:59 07:59 15:59 Intake Total 360 / 1410 720 / 720 Output Total 500 / 825 500 / 1500 1000 / 1500 Balance -140 / 585 -500 / -780 -280 / -780 Intake: Intake, Oral Amount 360 / 1410 720 / 720 Output: Output, Urine Amount 500 / 825 500 / 1500 1000 / 1500 Other: Number of Unmeasured Voids 0 1 0 Number of Bowel Movements 1 0 Weight 123.065 kg Patient Weight 01/30/25 23:59 Weight 123.065 kg Laboratory Results - last 24 hr 01/29/25 12:42: POC Glucose 221 H 01/29/25 16:27: POC Glucose 168 H 01/29/25 19:52: POC Glucose 215 H 01/30/25 05:20: POC Glucose 153 H 01/30/25 05:34: WBC 8.5, RBC 4.05 L, Hgb 11.5 L, Hct 36.2 L, MCV 89.4, MCH 28.4, MCHC 31.8, RDW 13.7, Plt Count 258, MPV 9.6, Neut % (Auto) 69.2, Lymph % (Auto) 16.9, [place] % (Auto) 10.6 H, Eos % (Auto) 2.7, Baso % (Auto) 0.2, Neut # (Auto) 5.9, Lymph # (Auto) 1.4, [place] # (Auto) 0.9, Eos # (Auto) 0.2, Baso # (Auto) 0.0, Sodium 133 L, Potassium 4.2, Chloride 96 L, Carbon Dioxide 33 H, Anion Gap 8.2, BUN 37 H, Creatinine 1.40 H, Estimated Creat Clear 25, Estimated GFR 36 L, Est GFR ( Amer) 43 L, Glucose 154 H, Calcium 8.3 L, Total Bilirubin 0.8, Direct Bilirubin 0.0, Conjugated Bilirubin 0.0, Indirect Bilirubin 0.8, Unconjugated Bilirubin 0.8, AST 32, ALT 20, Alkaline Phosphatase 87, Total Protein 6.2 L, Albumin 3.3 L, Triglycerides 87, Cholesterol 156, LDL Cholesterol Direct 73.88 L, VLDL Cholesterol 17, HDL Cholesterol 41, Cholesterol/HDL Ratio 3.8 H I & O for Labs for Last 24 Hours: Intake & Output 01/27/25 01/28/25 01/29/25 01/30/25 23:59 23:59 23:59 23:59 Intake Total 1380 / 1380 1760 / 1910 1410 / 1410 720 / 720 Output Total 625 / 850 1525 / 1850 825 / 825 1500 / 1500 Balance 755 / 530 235 / 60 585 / 585 -780 / -780 Weight 123.105 kg 124.454 kg 124.483 kg 123.065 kg Constitutional: Present no acute distress, morbidly obese, chronically ill appearing and cooperative Head: Present atraumatic ENT: Present normal exam Neck: Present normal inspection Respiratory: Present wheezes (Expiratory), normal respiratory effort, able to speak in complete sentences and symmetric chest movement Cardiac: Present Reg Rate and Rhythm; Absent No Murmur GI: Present soft and normal bowel sounds; Absent distention or tenderness Rectal (female): Present deferred (female): Present deferred Extremities: Present normal inspection and edema (Left lower extremity 2+) Comment:: Right lower extremity in walking boot. Skin: Present intact and dry; Absent wounds or rash Neuro: Present Weakness, alert, awake, oriented x 3 and moves all extremities Assessment and Plan *Assessment and plan (1) CHF (congestive heart failure): Status: Acute Qualifiers: Heart failure chronicity: unspecified Heart failure type: unspecified Qualified Code(s): I50.9 - Heart failure, unspecified Category: Medical Code(s): I50.9 - Heart failure, unspecified (2) Ankle fracture, right: Status: Acute Qualifiers: Encounter type: initial encounter Fracture type: closed Qualified Code(s): S82.891A - Other fracture of right lower leg, initial encounter for closed fracture Category: Medical Code(s): S82.891A - Other fracture of right lower leg, initial encounter for closed fracture (3) CKD (chronic kidney disease): Status: Acute Qualifiers: Chronic kidney disease stage: unspecified stage Qualified Code(s): N18.9 - Chronic kidney disease, unspecified Category: Medical Code(s): N18.9 - Chronic kidney disease, unspecified (4) Morbid obesity with BMI of 40.0-44.9, adult: Status: Acute Category: Medical Code(s): E66.01 - Morbid (severe) obesity due to excess calories; Z68.41 - Body mass index [BMI] 40.0-44.9, adult (5) COPD (chronic obstructive pulmonary disease): Status: Acute Qualifiers: COPD type: unspecified COPD Qualified Code(s): J44.9 - Chronic obstructive pulmonary disease, unspecified Category: Medical Code(s): J44.9 - Chronic obstructive pulmonary disease, unspecified (6) Declining functional status: Status: Acute Category: Medical Code(s): R53.81 - Other malaise (7) Falls frequently: Status: Acute Category: Medical Code(s): R29.6 - Repeated falls (8) NSTEMI (non-ST elevated myocardial infarction): Status: Acute Category: Medical Code(s): I21.4 - Non-ST elevation (NSTEMI) myocardial infarction (9) Volume overload: Status: Acute Qualifiers: Hypervolemia type: other Qualified Code(s): E87.79 - Other fluid overload Category: Medical Code(s): E87.70 - Fluid overload, unspecified (10) Type 2 diabetes mellitus: Status: Chronic Qualifiers: Diabetes mellitus complication status: with other specified complication 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 Sanon is a 84-year-old female who presented to the emergency department after a fall at home and was found to have a right ankle fracture. Patient also had an acute episode of hypoxia in the emergency department and was admitted for physical deconditioning and suspected HFpEF exacerbation. Hospital medicine agreed to accept the patient, plan of care as follows: #Suspected HFpEF exacerbation #NSTEMI, likely type II #CKD stage IIIb ? On my evaluation of the patient, she has lower extremity pitting edema 2+ likely contributing to fall. Slightly improving today. Cardiology consulted recommending [facility], patient agreeable. Echo shows global hypokinesis, EF 50%. The patient does complain of intermittent shortness of breath, worsening with exertion. Patient does wear 2 L nasal cannula at all times. Patient also has elevated troponin. Increasing diuresis to Bumex 2 mg twice daily. Strict I's and O's. Continuing spironolactone 25 mg daily. BNP on admission 3760. ? Troponin 0.11, but not far from baseline of 0.09. 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 Continues to deny chest pain. ? Creatinine baseline appears to be 1.1, slightly elevated at 1.4?in the setting of diuresis. ? Patient given one-time dose of Bumex 2 mg IV on admission, increased Bumex to 2 mg twice daily. ? Edema may be related to significant venous insufficiency. Would benefit from leg elevation, compression socks. #Right malleolar fracture #Physical deconditioning ? Orthopedic surgery consulted in the ED, recommended orthopedic boot. ? Patient is having pain with bearing weight, especially in setting of edema. ? PT/OT consulted, recommended SNF. Case management assisting with placement. Recently discharged from [facility] about 1 week ago. ? Continue multimodal pain management with Tylenol, [place], morphine. Will avoid NSAIDs due to CKD. ? Normal TSH, B12, folate. #COPD ? Improved wheezing today, switch DuoNebs to as needed. Continue home Advair. #History of gout ? Continue home allopurinol 100 mg. #Type 2 diabetes ? Hemoglobin A1c 6.3%. Continue LDSSI, ACHS glucose checks. #Obesity ? Complicates all aspects of care. DNR/DNI DVT prophylaxis: Lovenox 30 mg
[2025-01-30] MEDS: SPIRONOLACTONE 25MG TABLET 25 MG PO (09:35)
[2025-01-30] MEDS: ALLOPURINOL 100MG TABLET 100 MG PO (09:36)
[2025-01-30] MEDS: BUMETANIDE 1MG/4ML VIAL 1 MG IV (09:36)
[2025-01-30] MEDS: NYSTATIN TOPICAL POWDER 30GM TP ×4 (09:36→20:13)
--- NOTE | 2025-01-30 09:49 | SUR.PREOP ---
Spoke to Fabio on the floor in regards to pt iodine allergy, pt states she is not allergic to iodine and doesnt know why it is listed.
[2025-01-30] MEDS: BUMETANIDE 1MG/4ML VIAL 2 MG IV ×2 (09:57→16:16)
--- NOTE | 2025-01-30 10:01 | IR_ITS ---
APPROVED REPORT Patient Location: Outpatient [facility] Counselor: ANJEL Wild RT (R) PROCEDURES Left heart catheterization Left ventriculogram Selective coronary angiogram INDICATION Acute non-ST elevation myocardial infarction Informed consent was obtained prior to the procedure. COMPLICATIONS NONE Estimated Blood Loss: LESS THAN 10 ML TECHNIQUE One percent lidocaine used to anesthetize the right anterior aspect of the wrist. The right radial artery was accessed via the Seldinger technique. A 6 [place] sheath was placed in the right radial artery. 2.5 mg of Verapamil, 800 mcg of nitroglycerin, 1mg Lidocaine and 5000 U Heparin were given through the arterial sheath. The JL3 catheter was also used to perform left heart catheterization, left ventriculogram and selective coronary angiogram. At the end of the procedure the sheath was removed good hemostasis was achieved using Traclet band, patient was transferred to the postop holding area in stable condition. ANGIOGRAPHIC RESULTS The left main artery Normal The left anterior descending artery Proximally normal with mild mid vessel 20% stenosis The circumflex artery Normal The right coronary artery Dominant normal The HINOJOSA ventriculogram reveals Normal 65% The left ventricular end-diastolic pressure 15 mmHg IMPRESSION Mild nonocclusive coronary artery disease Normal ejection fraction Normal LVEDP PLAN 1. Evaluation of type II myocardial infarction Electronically signed by : Wolf Garcia MD 01/30/2025 11:36:46
[2025-01-30 10:08] LABS: POC Glucose,Bedside 236 gm/dL (70-110)
--- NOTE | 2025-01-30 10:16 | P.PN_ITS ---
Subjective Subjective Date: 01/30/25 Time: 10:15 Principal diagnosis: Non-STEMI, HFpEF Interval history: This is an 84-year-old white female who presented to the emergency department after a fall at home. She did sustain a right ankle fracture and is currently in a boot. The patient reports being very short of breath today. She states that she did not sleep well because she woke up through the night multiple times with episodes of shortness of breath and gasping for air. She states that she experiences orthopnea all of the time which she she did not originally report on this admission. She states that she just got up with physical therapy and she is noticeably short of breath. She states with exertion she has been having episodes of significant shortness of breath with exertion at times. It does improve with rest. She denies chest pain or pressure. She denies fever, chills, nausea, vomiting or diarrhea. Exam Data for Last 24 hours Vital signs and Labs for Last 24 Hours: Temp Pulse Resp BP Pulse Ox O2 Del Method O2 Flow Rate 98 F 62 20 155/69 H 94 L Nasal Cannula 2 01/30/25 08:00 01/30/25 08:00 01/30/25 08:00 01/30/25 08:00 01/30/25 08:00 01/30/25 09:00 01/30/25 09:00 FiO2 28 01/27/25 18:26 Laboratory Results - last 24 hr 01/29/25 12:42: POC Glucose 221 H 01/29/25 16:27: POC Glucose 168 H 01/29/25 19:52: POC Glucose 215 H 01/30/25 05:20: POC Glucose 153 H 01/30/25 05:34: WBC 8.5, RBC 4.05 L, Hgb 11.5 L, Hct 36.2 L, MCV 89.4, MCH 28.4, MCHC 31.8, RDW 13.7, Plt Count 258, MPV 9.6, Neut % (Auto) 69.2, Lymph % (Auto) 16.9, [place] % (Auto) 10.6 H, Eos % (Auto) 2.7, Baso % (Auto) 0.2, Neut # (Auto) 5.9, Lymph # (Auto) 1.4, [place] # (Auto) 0.9, Eos # (Auto) 0.2, Baso # (Auto) 0.0, Sodium 133 L, Potassium 4.2, Chloride 96 L, Carbon Dioxide 33 H, Anion Gap 8.2, BUN 37 H, Creatinine 1.40 H, Estimated Creat Clear 25, Estimated GFR 36 L, Est GFR ( Amer) 43 L, Glucose 154 H, Calcium 8.3 L, Total Bilirubin 0.8, Direct Bilirubin 0.0, Conjugated Bilirubin 0.0, Indirect Bilirubin 0.8, Unconjugated Bilirubin 0.8, AST 32, ALT 20, Alkaline Phosphatase 87, Total Protein 6.2 L, Albumin 3.3 L, Triglycerides 87, Cholesterol 156, LDL Cholesterol Direct 73.88 L, VLDL Cholesterol 17, HDL Cholesterol 41, Cholesterol/HDL Ratio 3.8 H 01/30/25 10:00: POC Glucose 236 H I & O for Last 24 hours: Intake & Output 01/27/25 01/28/25 01/29/25 01/30/25 23:59 23:59 23:59 23:59 Intake Total 1380 / 1380 1760 / 1910 1410 / 1410 720 / 720 Output Total 625 / 850 1525 / 1850 825 / 825 1500 / 1500 Balance 755 / 530 235 / 60 585 / 585 -780 / -780 Weight 271 lb 6.4 oz 274 lb 6 oz 274 lb 7 oz 271 lb 5 oz Narrative: Echocardiogram shows: Technically difficult study. Mildly reduced LV systolic function (LVEF 45-50%). Asynchronous septum. Mild RV dilation. Mild biatrial dilation. No significant valvular stenosis or regurgitation. Limited echocardiogram shows: This is a limited TTE to evaluate for LV systolic function. Limited windows are obtained. Ultrasound enhancing agent was administered to better delineate the LV endocardial borders. The left ventricle is normal in size. There is increased LV wall thickness. There is low-normal global LV systolic function. There is mild hypokinesis of the LV apical wall. LVEF is 50%. Constitutional Constitutional: no acute distress and morbidly obese *Routine HEENT Exam Head: Present normocephalic and atraumatic ENT: Present mucous membranes moist *Routine Neck Exam Neck: Present supple, full ROM and normal carotid upstroke; Absent JVD, carotid bruit or lymphadenopathy *Routine Respiratory Exam Respiratory: Present wheezes, normal respiratory effort, able to speak in complete sentences and symmetric chest movement *Routine Cardiovascular Exam Cardiovascular: Present RRR, Normal S1 and Normal S2; Absent murmur or gallop *Routine Abdominal Exam Abdominal: Present soft and normoactive bowel sounds; Absent tenderness, distended or organomegaly *Routine Extremities Exam Extremities: Present edema, full ROM, pulses intact and normal capillary refill; Absent cyanosis or clubbing *Routine Skin Exam Skin: Present intact and warm; Absent erythema *Routine Neurological Exam Neurological: Present alert, oriented X3 and CN II-XII intact; Absent sensory deficit or motor deficit Routine Psychiatric Exam Psychiatric: Present normal affect Progress Note: A&P Assessment and plan (1) NSTEMI (non-ST elevated myocardial infarction): Status: Acute (2) Elevated troponin: Status: Acute (3) Abnormal echocardiogram: Status: Acute (4) Acute heart failure with preserved ejection fraction (HFpEF): Status: Acute (5) Volume overload: Status: Acute (6) MARCELA (obstructive sleep apnea): Status: Acute (7) Type 2 diabetes mellitus: Status: Chronic (8) Hypertension: Status: Acute (9) Weakness: Status: Acute (10) COPD (chronic obstructive pulmonary disease): Status: Acute (11) Morbid obesity with BMI of 40.0-44.9, adult: Status: Acute (12) CKD (chronic kidney disease): Status: Acute (13) Ankle fracture, right: Status: Acute Assessment and Plan Assessment and Plan for All Diagnoses:: Plan: 1. The patient was admitted to the hospital with a right ankle fracture. She is currently in a boot. Will defer to the hospitalist and orthopedics. 2. The patient was found to have an elevated troponin on admission. Her troponin is chronically elevated, however it is higher than it normally is for her. The patient initially denied having any chest pain or pressure or shortness of breath. Today she still denies any chest pain or pressure but does report having pretty significant shortness of breath for quite some time with exertion and having orthopnea that wakes her up multiple times during her sleep. The patient just reported this today. This is most likely her anginal equivalent. She does have an echo cardiogram that is abnormal showing an ejection fraction around 45 to 50% with global hypokinesis of the LV apical wall. Due to her non-STEMI, shortness of breath/atypical angina and abnormal echocardiogram we will plan to proceed with left cardiac catheterization today to evaluate for coronary artery disease. 3. The patient has been educated recent benefits of proceeding with left cardiac catheterization. The patient verbalized understanding and is agreeable to proceeding with the procedure. 4. The patient will be n.p.o. in preparation for left cardiac catheterization. 5. The patient did have an elevated BNP on admission. She is being treated for acute HFpEF. She states that she still feels really short of breath and is really short of breath when lying flat. Will increase her Bumex to 2 mg IV twice daily for diuresis. 6. Continue spironolactone for diuresis. 7. Her blood pressure is well-controlled. 8. Start Toprol XL 25 mg daily for non-STEMI and hypertension. 9. Her LDL goal is less than 55. Her LDL is 73. Will start Lipitor 40 mg p.o. nightly for her non-STEMI. 10. Start aspirin 81 mg daily for non-STEMI. 11. Strict intake and output for her acute HFpEF. 12. Further recommendations will be made pending the patient's response to treatment and the results of her left cardiac catheterization today. Thank you for the opportunity to help participate in the care of this patient. All recommendations and orders are per Dr. Obrien.
[2025-01-30] MEDS: NITROGLYCERIN 800MCG/8ML SYR (CATH LAB) 800 MCG IA (11:25)
[2025-01-30] MEDS: HEPARIN 1,000 UNITS/ML 10ML VIAL (CATH LAB) 5000 UNIT IV (11:25)
[2025-01-30] MEDS: LIDOCAINE 1% 10ML MDV 10 ML IJ (11:25)
[2025-01-30] MEDS: 0.9 % SODIUM CHLORIDE 500 ML 25 ML IV (11:25)
[2025-01-30] MEDS: HEPARIN 1,000 UNITS/500ML NS (CATH LAB) 3000 UNIT IV (11:26)
[2025-01-30] MEDS: VERAPAMIL 2.5MG/ML 2ML VIAL 2.5 MG IV (11:26)
[2025-01-30] MEDS: IOPAMIDOL-370 (76%);100ML BOTTLE 50 ML IV (12:12)
--- NOTE | 2025-01-30 12:24 | SUR.PHASEII ---
bath given to patient before transfer to floor. new purwick in place
[2025-01-30] MEDS: METOPROLOL SUCCINATE XL 25MG TABLET 25 MG PO (12:54)
[2025-01-30] MEDS: ASPIRIN EC 81MG TABLET 81 MG PO (12:54)
[2025-01-30] MEDS: ACETAMINOPHEN 325MG TAB 650 MG PO (13:03)
--- NOTE | 2025-01-30 14:46 | PC.NURSE ---
Non adherent 2x2 and tegaderm placed to right wrist.
--- NOTE | 2025-01-30 15:19 | PC.NURSE ---
Aox 4, up with assistance times 2, right foot in boot with fx, 02- 2l nc, fsbg achs, bed alarm active, 20g R fa SL, purewick in place, zero stents placed, awaiting placement at [facility].
[2025-01-30 16:27] LABS: POC Glucose,Bedside 310 gm/dL (70-110)
[2025-01-30] MEDS: humaLOG 100 UNITS/ML 10ML VIAL (SSI) SUBCUT ×2 (16:41→20:13)
--- NOTE | 2025-01-30 17:17 | PC.NURSE ---
pt went down for heart cath. MARIXA Renae and MARIXA Tellez gave pt bath after heart cath.
[2025-01-30] MEDS: ATORVASTATIN 40MG TABLET 40 MG PO (20:13)
[2025-01-30 20:50] LABS: POC Glucose,Bedside 166 gm/dL (70-110)
[2025-01-31] VITALS (7 sets, daily range): BP systolic 124–153; BP diastolic 59–83; PULSE 65–82; RESP 18–22; TEMP 36.6–36.8; O2SAT 95–98; BMI 45.1
[2025-01-31] MEDS: HYDROCODONE/APAP 5/325 MG TABLET 1 TAB PO (00:10)
--- NOTE | 2025-01-31 03:56 | PC.NURSE ---
Pt is A&OX4 and has tolerated 2L nasal cannula. She complained of pain in the right foot once and was medicated per MAR. She has remained NSR with a BBB on tele. Purewick was remained in place. No complaints at this time, call light within reach.
[2025-01-31 05:43] LABS: POC Glucose,Bedside 139 gm/dL (70-110)
[2025-01-31 06:31] LABS: Hematocrit 36.4 % (37.0-47.0); Hemoglobin 11.5 g/dL (12.2-16.2); Immature Granulocytes % 0.4 %; Mean Corpuscular HGB Conc 31.6 g/dL (31.8-35.4); Mean Corpuscular Hemoglobin 28.5 pg (27.0-31.2); Mean Corpuscular Volume 90.1 fl (81-99); Nucleated Red Blood Cells % 0 %; Platelet Count 289 K/mm3 (142-424); Red Blood Count 4.04 M/mm3 (4.20-5.40); Red Cell Distribution Width-SD 44.6 fL; White Blood Count 7.6 K/mm3 (4.8-10.8)
[2025-01-31 06:50] LABS: Chloride 96 mmol/L (98-107); Sodium 136 mmol/L (136-145)
[2025-01-31 06:51] LABS: Potassium 3.9 mmoL/L (3.5-5.1)
[2025-01-31 06:53] LABS: Blood Urea Nitrogen 39 mg/dl (7-17); Creatinine Clearance Estimated 27 mL/min (50-200); Creatinine,Serum 1.30 mg/dl (0.52-1.04); Estimated Glomerular Filt Rate 39 ml/min (>60); GFR (African American) 47 ML/MIN (>60)
[2025-01-31 06:54] LABS: Anion Gap 8.9 mEq/L (5-15); Calcium 8.4 mg/dl (8.4-10.2); Carbon Dioxide 35 mmol/L (22.0-30.0); Glucose 145 mg/dl (74-100)
[2025-01-31] MEDS: BUMETANIDE 1MG/4ML VIAL 2 MG IV (08:03)
[2025-01-31] MEDS: SPIRONOLACTONE 25MG TABLET 25 MG PO (08:04)
[2025-01-31] MEDS: ASPIRIN EC 81MG TABLET 81 MG PO (08:04)
[2025-01-31] MEDS: METOPROLOL SUCCINATE XL 25MG TABLET 25 MG PO (08:04)
[2025-01-31] MEDS: ALLOPURINOL 100MG TABLET 100 MG PO (08:04)
--- NOTE | 2025-01-31 09:47 | P.DS_ITS ---
<Statement entered by Kevin King MD - 01/31/25 18:46> Rounded on patient after nurse practitioner. Personally examined and interviewed patient. Agree with exam findings and care plan as documented. General Admission date:: 01/26/25 Discharge date: 01/31/25 HPI HPI HPI: This is a 4-year-old female who has a past medical history significant for chronically elevated troponin, falls, obesity, asthma, obstructive sleep apnea, diastolic dysfunction, coronary artery disease, hypertension, and COPD who presents with a chief complaint of fall with pain to her right ankle post fall. Due to patient's symptoms, she presented to the emergency room for evaluation. While in the emergency room, patient underwent trauma scan and her right lower extremity was found to have a malleolus fracture. Patient's case was discussed with Dr. Mares who recommended patient patient on lower extremity boot. Patient did have an acute need for supplemental oxygen and informed ER provider that she has been having increased swelling to her lower extremities. As a result, patient has been admitted for further management. During my evaluation of the patient, patient reports that she has had multiple falls over the past several months. She reports that she fell this morning and was able to get up. Then after getting out of the shower she stepped wrong on her right foot and fell again. Post fall patient had pain to her right hip ankle. She is reporting no loss of consciousness but states she has been unsteady on her feet for some time. Patient states that she has been having increased swelling to her lower extremities which she believes is adding to her unsteady gait. She does not know if she has gained any weight. Patient reports her primary milk tester is Dr. Adeel Klein she does not recall that she has had a 2D echo recently. Moreover, she does not report having a left heart cath or ischemic workup. She is currently denying any chest pain, lightheadedness, dizz iness, fever, chills, rigors, nausea, vomiting, but or diarrhea. Chest x-ray was negative for any acute cardiopulmonary process. Tibia/fibula x-ray revealed a subtle step-off deformity in the lateral malleolus distally concerning for a small fracture and diffuse swelling throughout the lower extremity. CT scan of the thoracic spine was negative for any thoracic spine process. Pelvis were negative for any acute findings. CT scan of the lumbar spine was negative for any acute lumbar spine fracture. X-rays of the knee was negative for any acute findings. Additional scans were also without any abnormal findings. Additional pertinent labs obtained including neutrophils 82.4%, blood gases revealed pCO2 of 59 HCO3 of 31.2, venous lactic 2.1, carbon oxide of 31, BUN of 33, GFR 53, blood glucose of 38, AST of 47, initial troponin 0.09 and it trended up to 0.11 (patient has chronically elevated troponin), and patient's BNP was 3760. Hospital Course Hospital Course Hospital Course: Ms. Sanon is a 84-year-old female who presented to the emergency department after a fall at home and was found to have a right ankle fracture. Patient also had an acute episode of hypoxia in the emergency department and was admitted for physical deconditioning and suspected HFpEF exacerbation. Hospital medicine agreed to accept the patient, plan of care as follows: #Suspected HFpEF exacerbation #NSTEMI, type II #CKD stage IIIb ? On my evaluation of the patient, she has lower extremity pitting edema 2+ likely contributing to fall. Improving. Patient underwent LHC yesterday, no intervention was needed. Echo shows global hypokinesis, EF 50%. The patient does complain of intermittent shortness of breath, worsening with exertion, wears 2 L nasal cannula at all times. Patient also has elevated troponin. Patient was diuresed with Bumex 2 mg IV twice daily, discharged on Bumex 1 mg twice daily. Stopping torsemide. ? Troponin 0.11, but not far from baseline of 0.09. 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 Continues to deny chest pain. ? Creatinine baseline appears to be 1.1, 1.3-day of discharge. ? Edema may be related to significant venous insufficiency. Would benefit from leg elevation, compression socks. ? GDMT therapy initiated: metoprolol 25 mg daily, spironolactone 25 mg daily, atorvastatin 40 mg HS. Holding on DEONNA/ARB due to CKD. Will holding on SGLT2 due to urinary incontinence and poor ambulation ability. Will follow-up with cardiology in 1 to 2 weeks for further evaluation/medical management. #Right malleolar fracture #Physical deconditioning ? Orthopedic surgery consulted in the ED, recommended orthopedic boot. Patient should follow-up with orthopedics in approximately 1 to 2 weeks at discharge. Need to wear orthopedic boot. ? Patient is having pain with bearing weight, especially in setting of edema. ? PT/OT consulted, recommended SNF. Case management assisting with placement. Patient accepted to [facility]. ? Continue multimodal pain management with Tylenol, [place]. Will discharge with [place] 5/325 every 4 hours as needed for pain. Patient should hold home tramadol if taking [place]. ? Normal TSH, B12, folate. #COPD ?Continue Advair inhaler twice daily, albuterol inhaler every 4 hours as needed for shortness of breath or wheezing. #History of gout ? Continue home allopurinol 100 mg. #Type 2 diabetes ? Hemoglobin A1c 6.3%. Continue insulin regimen with Lantus Solostar and NovoLog FlexPen. #Obesity ? Complicates all aspects of care. Total time spent on discharge 38 minutes in counseling, documentation, chart review, and direct care with patient. Exam Data for Last 24 hours Vital signs and Labs for Last 24 Hours: Temp Pulse Resp BP Pulse Ox O2 Del Method O2 Flow Rate 98.3 F 82 22 128/59 L 95 Nasal Cannula 2 01/31/25 08:00 01/31/25 08:00 01/31/25 08:00 01/31/25 08:00 01/31/25 08:00 01/31/25 08:14 01/31/25 08:14 FiO2 28 01/31/25 06:16 Laboratory Results - last 24 hr 01/30/25 10:00: POC Glucose 236 H 01/30/25 16:20: POC Glucose 310 H* 01/30/25 20:12: POC Glucose 166 H 01/31/25 05:35: WBC 7.6, RBC 4.04 L, Hgb 11.5 L, Hct 36.4 L, MCV 90.1, MCH 28.5, MCHC 31.6 L, RDW 13.6, Plt Count 289, MPV 9.6, Neut % (Auto) 64.1, Lymph % (Auto) 21.2, [place] % (Auto) 10.8 H, Eos % (Auto) 3.2, Baso % (Auto) 0.3, Neut # (Auto) 4.9, Lymph # (Auto) 1.6, [place]abella # (Auto) 0.8, Eos # (Auto) 0.2, Baso # (Auto) 0.0, Sodium 136, Potassium 3.9, Chloride 96 L, Carbon Dioxide 35 H, Anion Gap 8.9, BUN 39 H, Creatinine 1.30 H, Estimated Creat Clear 27, Estimated GFR 39 L, Est GFR ( Amer) 47 L, Glucose 145 H, POC Glucose 139 H, Calcium 8.4 I & O for Last 24 hours: Intake & Output 01/28/25 01/29/25 01/30/25 01/31/25 23:59 23:59 23:59 23:59 Intake Total 1760 / 1910 1410 / 1410 2040 / 2290 730 / 730 Output Total 1525 / 1850 825 / 825 2400 / 2400 500 / 500 Balance 235 / 60 585 / 585 -360 / -110 230 / 230 Weight 124.454 kg 124.483 kg 123.065 kg 119.748 kg Constitutional Constitutional: no acute distress, morbidly obese, chronically ill appearing and cooperative *Routine HEENT Exam Head: Present normocephalic Eye: Present EOMI and PERRL ENT: Present mucous membranes moist *Routine Neck Exam Neck: Present supple; Absent lymphadenopathy *Routine Respiratory Exam Respiratory: Present diminished air movement, normal respiratory effort and able to speak in complete sentences; Absent wheezes or crackles *Routine Cardiovascular Exam Cardiovascular: Present RRR, Normal S1 and Normal S2; Absent murmur *Routine Abdominal Exam Abdominal: Present soft, normoactive bowel sounds and obese; Absent tenderness or distended *Routine Rectal Exam Patient deferred: visual exam *Routine Exam Patient deferred: external exam *Routine Extremities Exam Extremities: Present edema; Absent cyanosis or clubbing Comments: Bilateral lower extremity pitting edema 2+. Right foot in boot. *Routine Skin Exam Skin: Present intact and warm; Absent erythema or rash *Routine Neurological Exam Neurological: Present alert, oriented X3 and normal speech Results Data Completed and Pending Labs on day of discharge: Labs from last 24 hours 01/31/25 01/30/25 01/30/25 05:35 20:12 16:20 WBC 7.6 RBC 4.04 L Hgb 11.5 L Hct 36.4 L MCV 90.1 MCH 28.5 MCHC 31.6 L RDW 13.6 Plt Count 289 MPV 9.6 Neut % (Auto) 64.1 Lymph % (Auto) 21.2 Isabella % (Auto) 10.8 H Eos % (Auto) 3.2 Baso % (Auto) 0.3 Neut # (Auto) 4.9 Lymph # (Auto) 1.6 Isabella # (Auto) 0.8 Eos # (Auto) 0.2 Baso # (Auto) 0.0 Sodium 136 Potassium 3.9 Chloride 96 L Carbon Dioxide 35 H Anion Gap 8.9 BUN 39 H Creatinine 1.30 H Estimated Creat Clear 27 Estimated GFR 39 L Est GFR ( Amer) 47 L Glucose 145 H POC Glucose 139 H 166 H 310 H* Calcium 8.4 01/30/25 10:00 WBC RBC Hgb Hct MCV MCH MCHC RDW Plt Count MPV Neut % (Auto) Lymph % (Auto) [place]abella % (Auto) Eos % (Auto) Baso % (Auto) Neut # (Auto) Lymph # (Auto) Isabella # (Auto) Eos # (Auto) Baso # (Auto) Sodium Potassium Chloride Carbon Dioxide Anion Gap BUN Creatinine Estimated Creat Clear Estimated GFR Est GFR ( Amer) Glucose POC Glucose 236 H Calcium DS: Diagnosis Discharge Diagnosis (1) CHF (congestive heart failure): Status: Acute Code(s): I50.9 - Heart failure, unspecified Qualifiers: Heart failure chronicity: unspecified Heart failure type: unspecified Qualified Code(s): I50.9 - Heart failure, unspecified (2) Ankle fracture, right: Status: Acute Code(s): S82.891A - Other fracture of right lower leg, initial encounter for closed fracture Qualifiers: Encounter type: initial encounter Fracture type: closed Qualified Code(s): S82.891A - Other fracture of right lower leg, initial encounter for closed fracture (3) CKD (chronic kidney disease): Status: Acute Code(s): N18.9 - Chronic kidney disease, unspecified Qualifiers: Chronic kidney disease stage: unspecified stage Qualified Code(s): N18.9 - Chronic kidney disease, unspecified (4) Morbid obesity with BMI of 40.0-44.9, adult: Status: Acute Code(s): E66.01 - Morbid (severe) obesity due to excess calories; Z68.41 - Body mass inde x [BMI] 40.0-44.9, adult (5) COPD (chronic obstructive pulmonary disease): Status: Acute Code(s): J44.9 - Chronic obstructive pulmonary disease, unspecified Qualifiers: COPD type: unspecified COPD Qualified Code(s): J44.9 - Chronic obstructive pulmonary disease, unspecified (6) Declining functional status: Status: Acute Code(s): R53.81 - Other malaise (7) Falls frequently: Status: Acute Code(s): R29.6 - Repeated falls (8) NSTEMI (non-ST elevated myocardial infarction): Status: Acute Code(s): I21.4 - Non-ST elevation (NSTEMI) myocardial infarction (9) Volume overload: Status: Acute Code(s): E87.70 - Fluid overload, unspecified Qualifiers: Hypervolemia type: other Qualified Code(s): E87.79 - Other fluid overload (10) Type 2 diabetes mellitus: Status: Chronic Code(s): E11.9 - Type 2 diabetes mellitus without complications Qualifiers: Diabetes mellitus complication status: with other specified complication Diabetes mellitus usp insulin use: unspecified adjunct faculty for medical terminology insulin use status Qualified Code(s): E11.69 - Type 2 diabetes mellitus with other specified complication Meds Home Medications and Allergies Home Medications ?Medication ?Instructions ?Recorded ?Confirmed ?Type albuterol sulfate 90 mcg/actuation 4 inh inhalation Q4 HP PRN 10/04/24 01/27/25 Rx aerosol inhaler shortness of breath or wheez ing 30 days #8.5 grams allopurinol 100 mg tablet 100 mg PO DAILY 30 days #30 tabs 10/04/24 01/27/25 Rx cholecalciferol (vitamin D3) 50 50 mcg PO DAILY 30 day s #30 tabs 10/04/24 01/27/25 Rx mcg (2,000 unit) chewable tablet fluticasone 500 mcg-salmeterol 50 1 inh inhalation BID RT #60 ea 10/04/24 01/27/25 Rx mcg/dose blistr powdr for inhalation (Advair Diskus) spironolactone 25 mg tablet 25 mg PO DAILY 30 days #30 tabs 10/04/24 01/27/25 Rx tramadol 50 mg tablet 50 mg PO Q6HP PRN Severe Chapis n 11/26/24 01/27/25 History Held on 01/31/25. (Scale Score 7-10) Instructions: while taking [place] insulin aspart U-100 100 unit/mL 16 unit SQ AC 5 01/27/25 History (3 mL) subcutaneous pen (Novolog FlexPen U-100 Insulin aspart) insulin glargine 100 unit/mL (3 40 unit SQ BID 5 01/27/25 History mL) subcutaneous pen (Lantus Solostar U-100 Insulin) aspirin 81 mg tablet,delayed 81 mg PO DAILY #0 tabs Rx release atorvastatin 40 mg tablet 40 mg PO HS 30 days #30 tabs 01/31/25 Rx bumetanide 1 mg tablet 1 mg PO BIDL #60 tabs Rx hydrocodone 5 mg-acetaminophen 325 1 tab PO Q4HP PRN M ild To Moderate 01/31/25 Rx mg tablet Pain (1-6) #17 tabs metoprolol succinate 25 mg 25 mg PO DAILY 30 days #30 tabs 01/31/25 Rx tablet,extended release 24 hr New Prescriptions to Start Prescriptions: hydrocodone-acetaminophen Kate Hurtado atorvastatin Kate Hurtado bumetanide Bryant,Kate metoprolol succinate Kate Hurtado Allergies Allergy/AdvReac Type Severity Reaction Status Date / Time Penicillins Allergy Intermediate Unknown Verified 10/04/24 10:56 allergy reaction codeine (CODEINE) Allergy Mild Unknown Verified 10/04/24 10:56 allergy reaction oxycodone (OXYCODONE) Allergy Mild Unknown Verified 10/04/24 10:56 allergy reaction Sulfa (Sulfonamide Allergy Mild Unknown Verified 10/04/24 10:56 Antibiotics) (SULFA allergy (SULFONAMIDE ANTIBIOTICS)) reaction Cephalosporins Allergy Unknown Verified 10/04/24 10:56 allergy reaction doxycycline Allergy Unknown Verified 10/04/24 10:56 allergy reaction exenatide (From [place]) Allergy Unknown Verified 10/04/24 10:56 allergy reaction glyburide Allergy Unknown Verified 10/04/24 10:56 allergy reaction hyoscyamine (From Levbid) Allergy Unknown Verified 10/04/24 10:56 allergy reaction Discharge Plan Disposition Patient Disposition: er SNF Condition: Fair Discharge Order Discharge Orders: Discharge Order (Routine); Ordered 01/31/25 Ordered By: Kate Hurtado Follow up Plan Follow up with: Lorena Dudley APRN [Nurse Practitioner, Cardiology] - 02/14/25 1:30 pm Abraham Laura DO [Staff Physician, Orthopedics] - 02/05/25 10:30 am Prescriptions/Medication Reconciliation: New atorvastatin 40 mg Tablet 40 mg PO HS 30 Days Qty: 30 0RF aspirin 81 mg Tablet,Delayed Release (Dr/Ec) 81 mg PO DAILY Qty: 0 0RF metoprolol succinate 25 mg Tablet Extended Release 24 Hr 25 mg PO DAILY 30 Days Qty: 30 0RF bumetanide 1 mg tablet 1 mg PO BIDL Qty: 60 0RF hydrocodone-acetaminophen 5-325 mg Tablet 1 tab PO Q4HP PRN (Reason: Mild To Moderate Pain (1-6)) Qty: 17 0RF Continued allopurinol 100 mg tablet 100 mg PO DAILY 30 Days Qty: 30 0RF spironolactone 25 mg tablet 25 mg PO DAILY 30 Days Qty: 30 0RF fluticasone propion-salmeterol [Advair Diskus] 500-50 mcg/dose blister with device 1 inh inhalation BIDRT Qty: 60 0RF albuterol sulfate 90 mcg/actuation HFA aerosol inhaler 4 inh inhalation Q4HP PRN (Reason: shortness of breath or wheezing) 30 Days Qty: 8.5 0RF cholecalciferol (vitamin D3) 50 MCG tablet,chewable 50 mcg PO DAILY 30 Days Qty: 30 0RF insulin aspart U-100 [Novolog FlexPen U-100 Insulin] 100 unit/mL (3 mL) insulin pen 16 unit SQ AC Patient Comments: INJECT 15 UNITS UNDER THE SKIN THREE TIMES DAILY insulin glargine [Lantus Solostar U-100 Insulin] 100 unit/mL (3 mL) insulin pen 40 unit SQ BID Held tramadol 50 mg tablet 50 mg PO Q6HP PRN (Reason: Severe Pain (Scale Score 7-10)) Hold Instructions: while taking [place] Discontinued torsemide 100 MG tablet 50 mg PO DAILY 30 Days Qty: 15 0RF Problem Reconciliation Problems Reviewed?: Yes Patient Discharge Instructions ACTIVITY: Ambulate as tolerated and Up with assistance DIET: continue same diet Patient Instructions: DI for Heart Attack, DI for Ankle Fracture, DI for Cardiac Catheterization, DI for Surgical Site Infection, Stop Light Heart Failure Print Language: Liberian Providers Primary Care Provider: Provider,Referral Admit Provider: Beau Kate Attending Provider: Beau Kate
--- NOTE | 2025-01-31 10:14 | P.PN_ITS ---
Subjective Subjective Date: 01/31/25 Time: 09:30 Principal diagnosis: Non-STEMI, HFpEF Interval history: This is an 84-year-old female presented to the emergency department after a fall at home. She did sustain a right ankle fracture and is currently in a boot. She states that her shortness of breath has improved overnight. She denies any chest pain or pressure. Her lower extremity edema has improved. She denies any fever, chills, nausea, vomiting or diarrhea. The patient states that the IV diuretics have worked very well and she has urinated in the bed multiple times because she was unable to get up quick enough to the bathroom. Exam Data for Last 24 hours Vital signs and Labs for Last 24 Hours: Temp Pulse Resp BP Pulse Ox O2 Del Method O2 Flow Rate 98.3 F 82 22 128/59 L 95 Nasal Cannula 2 01/31/25 08:00 01/31/25 08:00 01/31/25 08:00 01/31/25 08:00 01/31/25 08:00 01/31/25 10:11 01/31/25 10:11 FiO2 28 01/31/25 06:16 Laboratory Results - last 24 hr 01/30/25 16:20: POC Glucose 310 H* 01/30/25 20:12: POC Glucose 166 H 01/31/25 05:35: WBC 7.6, RBC 4.04 L, Hgb 11.5 L, Hct 36.4 L, MCV 90.1, MCH 28.5, MCHC 31.6 L, RDW 13.6, Plt Count 289, MPV 9.6, Neut % (Auto) 64.1, Lymph % (Auto) 21.2, [place] % (Auto) 10.8 H, Eos % (Auto) 3.2, Baso % (Auto) 0.3, Neut # (Auto) 4.9, Lymph # (Auto) 1.6, [place] # (Auto) 0.8, Eos # (Auto) 0.2, Baso # (Auto) 0.0, Sodium 136, Potassium 3.9, Chloride 96 L, Carbon Dioxide 35 H, Anion Gap 8.9, BUN 39 H, Creatinine 1.30 H, Estimated Creat Clear 27, Estimated GFR 39 L, Est GFR ( Amer) 47 L, Glucose 145 H, POC Glucose 139 H, Calcium 8.4 I & O for Last 24 hours: Intake & Output 01/28/25 01/29/25 01/30/25 01/31/25 23:59 23:59 23:59 23:59 Intake Total 1760 / 1910 1410 / 1410 2040 / 2290 730 / 730 Output Total 1525 / 1850 825 / 825 2400 / 2400 500 / 500 Balance 235 / 60 585 / 585 -360 / -110 230 / 230 Weight 274 lb 6 oz 274 lb 7 oz 271 lb 5 oz 264 lb Constitutional Constitutional: no acute distress and morbidly obese *Routine HEENT Exam Head: Present normocephalic and atraumatic ENT: Present mucous membranes moist *Routine Neck Exam Neck: Present supple, full ROM and normal carotid upstroke; Absent JVD, carotid bruit or lymphadenopathy *Routine Respiratory Exam Respiratory: Present CTA bilaterally, normal respiratory effort, able to speak in complete sentences and symmetric chest movement *Routine Cardiovascular Exam Cardiovascular: Present RRR, Normal S1 and Normal S2; Absent murmur or gallop *Routine Abdominal Exam Abdominal: Present soft and normoactive bowel sounds; Absent tenderness, distended or organomegaly *Routine Extremities Exam Extremities: Present edema, full ROM, pulses intact and normal capillary refill; Absent cyanosis or clubbing *Routine Skin Exam Skin: Present intact and warm; Absent erythema *Routine Neurological Exam Neurological: Present alert, oriented X3 and CN II-XII intact; Absent sensory deficit or motor deficit Routine Psychiatric Exam Psychiatric: Present normal affect Progress Note: A&P Assessment and plan (1) NSTEMI (non-ST elevated myocardial infarction): Status: Acute (2) Acute heart failure with preserved ejection fraction (HFpEF): Status: Acute (3) Abnormal echocardiogram: Status: Acute (4) Volume overload: Status: Acute (5) Ankle fracture, right: Status: Acute (6) CKD (chronic kidney disease): Status: Acute (7) Morbid obesity with BMI of 40.0-44.9, adult: Status: Acute (8) COPD (chronic obstructive pulmonary disease): Status: Acute (9) Declining functional status: Status: Acute (10) Falls frequently: Status: Acute (11) Type 2 diabetes mellitus: Status: Chronic (12) Acute and chronic respiratory failure with hypercapnia: Status: Acute (13) Hypertension: Status: Acute Assessment and Plan Assessment and Plan for All Diagnoses:: Plan: 1. The patient was admitted to the hospital with a right ankle fracture. She is currently in a boot. Will defer to the hospitalist and orthopedics. 2. The patient underwent left cardiac catheterization yesterday to secondary to her non-STEMI and abnormal echocardiogram. She was found to have mild CAD which was nonocclusive. Recommend aspirin 81 mg daily. CAD is stable. This is a type II non-STEMI from her acute HFpEF. 3. The patient did have an elevated BNP on admission. She has been treated for acute HFpEF. She has been diuresed with IV Bumex. Will transition her over to Bumex 1 mg p.o. twice daily for continued diuresis at home. 4. Continue spironolactone for diuresis. 5. Her blood pressure is well-controlled. 6. Continue Toprol for CAD. No DEONNA/ARB at this time due to her renal function. Will try to get this started on an outpatient basis. 7. Chronic kidney disease is present. Her creatinine is 1.3 today. 8. Her LDL goal is less than 55. Her LDL is 73. She is on a statin. 9. No further recommendations at this time from a cardiac standpoint. The patient is stable for discharge today from a cardiac standpoint and will need to follow in cardiology clinic in 1 to 2 weeks on an outpatient basis. The patient will need to be discharged on the following cardiac medications: Aspirin 81 mg daily Lipitor 40 mg p.o. nightly Bumex 1 mg p.o. twice daily Toprol-XL 25 mg daily Spironolactone 25 mg daily Will try to get an DEONNA/ARB started as an outpatient depending on her renal function. No Farxiga/Jardiance due to a history of multiple UTIs and decreased mobility to get to the bathroom and incontinence at this time. Will try to get this started on outpatient basis once her mobility improves. Thank you for the opportunity to help participate in the care of this patient. All recommendations and orders are per Dr. Obrien.
[2025-01-31 10:28] LABS: POC Glucose,Bedside 253 gm/dL (70-110)
[2025-01-31] MEDS: NYSTATIN TOPICAL POWDER 30GM TP (10:29)
[2025-01-31] MEDS: humaLOG 100 UNITS/ML 10ML VIAL (SSI) SUBCUT (10:29)
[2025-01-31] MEDS: IPRATROPIUM/ALBUTEROL 3 ML NEB IH (10:54)
--- NOTE | 2025-01-31 13:02 | PC.NURSE ---
Report called to Jojo LYNCH PR.
[2025-02-02 12:18] LABS: POC Glucose,Bedside 97 gm/dL (70-110)
== END 2025-01-31 16:33 | DRG 280 ==
LOC: ER 15:55 → 2ND 21:05
PROVIDERS: Internal Medicine; Nurse Practitioner Family; Admitting Provider Student in an Organized Health Care Education/Training Program; Emergency Provider Student in an Organized Health Care Education/Training Program; Visit Provider Student in an Organized Health Care Education/Training Program
PROC: 4A023N7 Measurement of Cardiac Sampling and Pressure, Left Heart, Percutaneous Approach (ICD-10-PCS; CPT 93452; principal; 2025-01-30 13:00)
DX: I13.0 Hypertensive heart and chronic kidney disease with heart failure and stage 1 through stage 4 chronic kidney disease, or unspecified chronic kidney disease (principal); I50.33 Acute on chronic diastolic (congestive) heart failure; I21.A1 Myocardial infarction type 2; J96.22 Acute and chronic respiratory failure with hypercapnia; Z68.42 Body mass index [BMI] 45.0-49.9, adult; S82.61XA Displaced fracture of lateral malleolus of right fibula, initial encounter for closed fracture; I25.10 Atherosclerotic heart disease of native coronary artery without angina pectoris; G47.33 Obstructive sleep apnea (adult) (pediatric); J44.9 Chronic obstructive pulmonary disease, unspecified; N18.32 Chronic kidney disease, stage 3b; E11.22 Type 2 diabetes mellitus with diabetic chronic kidney disease; E11.69 Type 2 diabetes mellitus with other specified complication; I87.2 Venous insufficiency (chronic) (peripheral); E66.01 Morbid (severe) obesity due to excess calories; M10.9 Gout, unspecified; R29.6 Repeated falls; R53.81 Other malaise; W01.0XXA Fall on same level from slipping, tripping and stumbling without subsequent striking against object, initial encounter; Y93.E1 Activity, personal bathing and showering; Y92.002 Bathroom of unspecified non-institutional (private) residence as the place of occurrence of the external cause; Z66 Do not resuscitate; Z91.81 History of falling; Z87.891 Personal history of nicotine dependence; Z88.0 Allergy status to penicillin; Z88.5 Allergy status to narcotic agent; Z88.2 Allergy status to sulfonamides; Z88.1 Allergy status to other antibiotic agents; Z88.8 Allergy status to other drugs, medicaments and biological substances; Z91.040 Latex allergy status; Z79.4 Long term (current) use of insulin; Z79.899 Other long term (current) drug therapy
CPT/HCPCS: 0223U; 36415; 70450; 71045; 72125; 72128; 72131; 72170; 73552; 73562; 73590; 73610; 73620; 80048; 80053; 80061; 80076; 82607; 82746; 82803; 82962; 83036; 83605; 83880; 84443; 84484; 85025; 85610; 93005; 93306; 93308; 94640; 94761; 97163; 97165; 97530; 99152; 99285; C1725; C1769; J1200; J1644; J1650; J1885; J1938; J1939; J2003; J2250; J2270; J2405; J7040; Q9957; Q9967

== ENCOUNTER 2025-03-05 10:02 | Outpatient (CLI) | payer MEDICARE, SELFPAY ==
--- NOTE | 2025-03-05 10:04 | XR_ITS ---
FINAL REPORT CLINICAL HISTORY: right ankle fx COMPARISON: 01/26/2025 FINDINGS: RIGHT ANKLE 3 views of the right ankle were obtained. There is a healing, oblique, mildly displaced fracture of the lateral malleolus with overlying periosteal reaction. There is a moderate-sized plantar spur. The mortise is intact. Visualized joint spaces are normally aligned. There is prominent soft tissue edema overlying the dorsum of the foot measuring 2.8 cm. IMPRESSION: Healing fracture of the lateral malleolus. Reviewed, Interpreted and Dictated by Antwon Yun MD Transcribed by Prisca Flowers Authenticated and [facility]
== END 2025-03-05 23:59 | disposition home or self-care (01) ==
LOC: RAD 10:02
PROVIDERS: PCP Nurse Practitioner Family; Visit Provider Orthopaedic Surgery
DX: S82.61XD Displaced fracture of lateral malleolus of right fibula, subsequent encounter for closed fracture with routine healing (principal); X58.XXXD Exposure to other specified factors, subsequent encounter
CPT/HCPCS: 73610

== ENCOUNTER 2025-03-19 15:18 | Outpatient (CLI) | payer MEDICARE, MEDICAID, SELFPAY ==
--- OUTSIDE RECORDS SUMMARY | 2025-03-19 15:20 | XMS_ITS | Clinical Summary ---
Author Organization [facility] Address [address] [place] [address] Care Team Providers Care Armhole Raiser Lockstitch Name Role Phone Carlos Gonzalez MD Primary [...] of Treatment Not on file Care Teams Armhole Raiser Lockstitch Relationship Specialty Start Date End Date Carlos Gonzalez MD [address] [id number] PCP - General 08/30/20
--- OUTSIDE RECORDS SUMMARY | 2025-03-19 15:20 | XMS_ITS | Encounter Summary ---
Author Organization Healthcare Address [address] [place] [address] Care Team Providers Care Interior Decorator Name Role Phone Carlos Gonzalez MD Primary Care Provid er Encounter Details Date Type Department Care Team (Late st Contact Info) Description 09/28/2024 Lab Requisition [facility] [address] [place] [address] System, Provider Not In, [address] [place] [address] Chronic respiratory failure with hypoxia; Osteoarthritis of [...] - 1,799 pg/mL 09/28/2024 11:58 PM EDT [facility] Blood Venous blood specimen / Unknown 09/28/2024 11:00 PM EDT 09/28/2024 11:42 PM EDT us Provider Not In System LAB BLOOD ORDERABLES F inal Result [facility] [address] [place] [address] documented in this encounter Visit Diagnoses Diagnosis Chronic respiratory failure with hypoxia Osteoarthritis of knee, unspecified Chronic kidney disease, unspecified Muscle weakness (generalized) documented in this encounter Care Teams Interior Decorator Relationship Specialty Start Date End Date Carlos Gonzalez MD [address] [place], [place] [id number] PCP - General 08/30/20 documented as of this encounter
--- OUTSIDE RECORDS SUMMARY | 2025-03-19 15:20 | XMS_ITS | Clinical Summary ---
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 (ICD-10-CM ) 10/19 Active 10/19 Winifred Jorje Other specified bacterial agents as the cause of diseases classified elsewhere Anaerococcus infection B96.89 (ICD-10-CM ) 10/19 Active 10/19 Winifred Jorje Other specified bacterial agents as the cause of diseases classified elsewhere COPD 84344655 (SNOMED CT) 10/19 Active 10/19 Winifred Jorje Chronic obstructive pulmonary disease MRSA infection 463517601 (SNOMED CT) 10/19 Active 10/19 Winifred Jorje Methicillin resistant Staphylococcus aureus infection Obesity, class 2, BMI 35 to <40 57703455 (SNOMED CT) 10/19 Active 10/19 Winifred Jorje Coronary arteriosclerosis Knee, right, subsequent encounter(s), infection/inf lammatory reaction due to internal joint prosthesis T84.53xD (ICD-10-CM ) 10/19 Active 10/19 Winifred Jorje Infection and inflammatory reaction due to internal right knee prosthesis, subsequent encounter Cellulitis of RLE 662149983 (SNOMED CT) 10/19 Active 10/19 Winifred Recinos Cellulitis of lower limb DM II with diabetic CKD, 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) E11.22 (ICD-10-CM ) 10/19 Active 10/19 Winifred Recinos Type 2 diabetes mellitus with diabetic chronic kidney disease Coronary artery disease (CAD) 61519525 (SNOMED CT) 10/19 Active 10/19 Winifred Recinos Coronary arteriosclerosis Hypertensive heart and CKD, benign, 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) 722053379 (SNOMED CT) 10/19 Active 10/19 Winifred Recinos Chronic diastolic heart failure Medications Medication Instructions Start Date Stop Date Generic Name NDC Provider daptomycin recon soln Cubicin 700mg Iv Q24hrs [facility] 11/09 daptomycin recon kadeem Alvarez RN ceftriaxone recon soln Rocephin 2G IV q24hrs -- [facility] 11/09 ceftriaxone perla Alvarez RN DOXYCYCLINE MONOHYDRATE 100 MG TABS Take 1 tablet by mouth twice a day 11/27 doxycycline monohydrate 31930461061 David Fultno MD CEFUROXIME AXETIL 250 MG TABS Take 1 tablet by mouth twice a day 11/27 cefuroxime axetil 43786856563 David Fulton MD ceftriaxone recon soln Rocephin 2G IV q24hrs -- [facility] 11/09 ceftriaxone recon gracielan Becca Landrum daptomycin recon soln Cubicin 700mg Iv Q24hrs [facility] 11/09 daptomycin recon kadeem Alvarez RN TORSEMIDE 100 MG TABS Take 0.5 tablets (50 mg total) by mouth daily. torsemide 35161126054 QIE [facility]user SPIRONOLACTONE 25 MG TABS Take 1 tablet (25 mg total) by mouth daily. spironolactone 68683569104 QIE qieuse r OXYGEN-AIR DELIVERY SYSTEMS MISC 2 liter at night time. . 11/09 OXYGEN-AIR DELIVERY SYSTEMS MISC QIE [facility]user ONDANSETRON HCL 4 MG TABS Take 1 tablet (4 mg total) by mouth every 8 (eight) hours as needed for nausea. ondansetron hcl 22732085283 [facility] MUPIROCIN 2 % OINT 1 Application 3 (three) times daily. mupirocin 19754926227 [facility]IE [facility]user VITAMIN D3 50 MCG (2000 UT) TABS Take 1 tablet (2,000 Units total) by mouth daily. cholecalciferol (vitamin d3) 51161381467 QIE qieuser ALLOPURINOL 100 MG TABS Take 1 tablet (100 mg total) by mouth daily. allopurinol 07327513140 QIE qieuser ALBUTEROL SULFATE HFA 108 (90 Base) MCG/ACT AERS Inhale 2 puffs by mouth every 6 (six) hours as needed for shortness of breath or wheezing. 11/09 albuterol sulfate 90992032548 QIE qieuser ALBUTEROL SULFATE (2.5 MG/3ML) 0.083% NEBU Inhale 3 mLs (2.5 mg total) by nebulization every 4 (four) hours as needed for wheezing or shortness of breath. 10/23 albuterol sulfate 95000219113 QIE qieuser ACETAMINOPHEN 325 MG TABS Take 2 tablets (650 mg total) by mouth every 6 (six) hours as needed. 10/23 acetaminophen 69141724072 QIE qieuser daptomycin recon soln Cubicin 700mg Iv Q24hrs [facility] 10/23 daptomycin recon soln Skylar Crocker Medications [...]
--- OUTSIDE RECORDS SUMMARY | 2025-03-19 15:21 | XMS_ITS | Referral Summary ---
Author Organization [employer] ([place], [place], [place], [place], [place]) Address [address] [place] [address] Care Team Providers Care Generator Switchboard Operator Name Role Phone Story, Norma Reynolds AGA Primary Care Provider [phone]- [phone] Allergies Active Allergy Reactions Criticality Noted Date [...] Do you speak a language other than [place] at [facility]? No 10/10/2024 Do you want help with [...] on file Medical Devices Implanted Type Area Insulation Professional Device Identifier Shelf Expiration Date Model / Serial / Lot Cement Bone Smplx Tobra 40gm 6197-9-001 - [id number] Implanted:Qty : 2 on 08/23/2024 by Kiran Olmos MD at [facility] IMPLANTS Right: Knee [employer] 10/16/2025 6197-9-00 1 / / [id number] Pwdr Cellerate Clgn 1gm Strl Flx-14-Fxhtha - [id number] Implanted:Qty : 1 on 08/23/2024 by Kiran Olmos MD at [facility] IMPLANTS Right: Knee [employer] 08/31/2026 [facility]--SA CRXP / / [id number] Pwdr Cellerate Clgn 1gm Strl Esu-20-Zysrst - [id number] Implanted:Qty : 1 on 10/11/2024 by Kiran Olmos MD at [facility] IMPLANTS Right: Knee [employer] [facility] 08/31/2026 [facility]--[place] CRXP / / [id number] Imp Patella Itotal 35x7mm [id number] - [id number] Implanted:Qty : 1 on 08/23/2024 by Kiran Olmos MD at [facility] [employer] Right: Knee [employer] 06/16/2026 [id number] / / [id number] Kt Itotal Id Ps Full Xe Itps-Xe-1pc - [id number] Implanted:Qty : 1 on 08/23/2024 by Kiran Olmos MD at [facility] [employer] Right: Knee [employer] 08/16/2025 ITPS-XE-1 PC / [id number] / Imp Itotal Id Ps Fem Attila Lt [id number] - [id number] Implanted:Qty : 1 on 08/23/2024 by Kiran Olmos MD at [facility] [employer] Right: Knee [employer] 08/16/2025 [id number] / [id number] / Ty Itotal Id Ps Tib Attila Lt [id number] - [id number] Implanted:Qty : 1 on 08/23/2024 by Kiran Olmos MD at [facility] [employer] Right: Knee [employer] 08/16/2025 [id number] / [id number] / Procedures Procedure Name Priority Date/Time Associated Diagnosis Comments HEMOGLOBIN A1C Routine 08/09/2024 11:20 AM EDT Preop examination from Last 3 Months or Most Recently Relevant to Health Maintenance Results * (ABNORMAL) Hemoglobin A1c (08/09/2024 11:20 AM EDT) Hemoglobin A1C 7.7(H) 4.2 - 6.3 % 08/09/2024 12:43 PM EDT [facility] Comment: Hemoglobin A1C levels are related to mean glucose during the preceding 2-3 months. Less than 7% demonstrates glycemic control in diabetic patients. Hemoglobin AlC % Suggested Diagnosis > or = 6.5 Diabetic 5.7 - 6.4 Prediabetic <5.7 Non-diabetic eAVG Glucose 174.29 mg/dL 08/09/2024 12:43 PM EDT [facility] Blood Venipuncture / Unknown 08/09/2024 11:20 AM EDT 08/09/2024 12:09 PM EDT us Kiran Olmos MD LAB BLOOD ORDERABLES Final Resul t [facility] [address] [phone] from Last 3 Months or Most Recently Relevant to Health Maintenance Additional Health Concerns Infection Onset Date Last Indicated MRSA (C) 10/14/2024 10/14/2024 Insurance [facility] ACCESS PPO MAP Advance Directives For more information, please contact: [phone] * DNR - Limited Additional Intervention (Latest [...] 6:38 AM 08/23/2024 11:33 AM Care Teams Generator Switchboard Operator Relationship Specialty Start Date End Date Roe Norma Gail, HORTICULTURE TEACHER [address] [place] [address] PCP - General Nurse Practitioner 08/23/24
--- OUTSIDE RECORDS SUMMARY | 2025-03-19 15:21 | XMS_ITS | Clinical Summary ---
Author Organization Drive ([place], [place], [place], [place], [place]) Address [address] [place] [address] Care Team Providers Care Area Field Manager Name Role Phone Story, Norma Reynolds AGA Primary Care Provider +1- [phone] Allergies Active Allergy Reactions Criticality Noted Date [...] Do you speak a language other than [place] at [facility]? No 10/10/2024 Do you want [...] PM EDT Inhaled Oxygen Concentration 30% 10/14/2024 4:27 AM EDT Weight 114.8 kg (253 lb) [...] Completed 02/10/2023 Medical Devices Implanted Type Area Lens Coater Device Identifier Shelf Expiration Date Model / Serial / Lot Cement Bone Smplx Tobra 40gm 6197-9-001 - [id number] Implanted:Qty : 2 on 08/23/2024 by Kiran Olmos MD at [facility] IMPLANTS Right: Knee [employer] 10/16/2025 6197-9-00 1 / / [id number] Pwdr Cellerate Clgn 1gm Strl Yuh-94-Vhwejy - [id number] Implanted:Qty : 1 on 08/23/2024 by Kiran Olmos MD at [facility] IMPLANTS Right: Knee [employer] [facility] 08/31/2026 I-01-SA CRXP / / [id number] Pwdr Cellerate Clgn 1gm Strl Uaz-64-Yzekww - [id number] Implanted:Qty : 1 on 10/11/2024 by Kiran Olmos MD at [facility] IMPLANTS Right: Knee [employer] [facility] 08/31/2026 WCI-01-SA CRXP / / [id number] Imp Patella Itotal 35x7mm [id number] - [id number] Implanted:Qty : 1 on 08/23/2024 by Kiran Olmos MD at [facility] [employer] Right: Knee [employer] 06/16/2026 [id number] Kt Itotal Id Ps Full Xe Itps-Xe-1pc - [id number] Implanted:Qty : 1 on 08/23/2024 by Kiran Olmos MD at [facility] [employer] Right: Knee [employer] 08/16/2025 ITPS-XE-1 PC / [id number] / Imp Itotal Id Ps Fem Attila Lt [id number] - [id number] Implanted:Qty : 1 on 08/23/2024 by Kiran Olmos MD at [facility] [employer] Right: Knee [employer] 08/16/2025 [id number] / [id number] / Ty Itotal Id Ps Tib Attila Lt [id number] - [id number] Implanted:Qty : 1 on 08/23/2024 by Kiran Olmos MD at [facility] [employer] Right: Knee [employer] 08/16/2025 [id number] / Procedures Procedure Name Priority Date/Time Associated Diagnosis Comments HEMOGLOBIN A1C Routine 08/09/2024 11:20 AM EDT Preop examination from Last 3 Months or Most Recently Relevant to Health Maintenance Results * (ABNORMAL) Hemoglobin A1c (08/09/2024 11:20 AM EDT) Hemoglobin A1C 7.7(H) 4.2 - 6.3 % 08/09/2024 12:43 PM EDT [facility] Comment: Hemoglobin A1C levels are related to mean glucose during the preceding 2-3 months. Less than 7% demonstrates glycemic control in diabetic patients. Hemoglobin AlC % Suggested Diagnosis > or = 6.5 Diabetic 5.7 - 6.4 Prediabetic <5.7 Non-diabetic eAVG Glucose 174.29 mg/dL 08/09/2024 12:43 PM EDT [facility] Blood Venipuncture / Unknown 08/09/2024 11:20 AM EDT 08/09/2024 12:09 PM EDT us Kiran Olmos MD LAB BLOOD ORDERABLES Final Resul t [facility] [address] [phone] from Last 3 Months or Most Recently Relevant to Health Maintenance Additional Health Concerns Infection Onset Date Last Indicated MRSA (C) 10/14/2024 10/14/[address] [place] [id number] [employer] ACCESS PPO MAP Advance Directives For more information, please contact: [phone] * DNR - Limited Additional Intervention (Latest [...] 6:38 AM 08/23/2024 11:33 AM Care Teams Area Field Manager Relationship Specialty Start Date End Date Norma Au, CONTRACTOR GENER[employer] BUILDING [address] [facility] [place] [address] PCP - General Nurse Practitioner 08/23/24
[2025-03-19 16:26] LABS: Chloride 95 mmol/L (98-107); Sodium 137 mmol/L (136-145)
[2025-03-19 16:27] LABS: Potassium 4.9 mmoL/L (3.5-5.1)
[2025-03-19 16:30] LABS: Anion Gap 13.9 mEq/L (5-15); Blood Urea Nitrogen 45 mg/dl (7-17); Calcium 9.1 mg/dl (8.4-10.2); Carbon Dioxide 33 mmol/L (22.0-30.0); Creatinine,Serum 1.60 mg/dl (0.52-1.04); Estimated Glomerular Filt Rate 31 ml/min (>60); GFR (African American) 37 ML/MIN (>60); Glucose 257 mg/dl (74-100)
== END 2025-03-19 23:59 | disposition home or self-care (01) ==
LOC: LAB 15:19
PROVIDERS: PCP Nurse Practitioner Family; Visit Provider Internal Medicine
DX: I13.0 Hypertensive heart and chronic kidney disease with heart failure and stage 1 through stage 4 chronic kidney disease, or unspecified chronic kidney disease (principal); I50.20 Unspecified systolic (congestive) heart failure; N18.9 Chronic kidney disease, unspecified; R93.1 Abnormal findings on diagnostic imaging of heart and coronary circulation
CPT/HCPCS: 36415; 80048

== ENCOUNTER 2025-03-26 10:17 | Outpatient (CLI) | payer MEDICARE, MEDICAID, SELFPAY ==
--- NOTE | 2025-03-26 10:19 | XR_ITS ---
PROCEDURE INFORMATION: Exam: XR Right Ankle Exam date and time: 03/26/2025 10:22 AM Age: 84 years old Clinical indication: Pain; Ankle; Right; Additional info: Right ankle pain. FX 6 wks ago TECHNIQUE: Imaging protocol: Radiologic exam of the right ankle. Views: 3 or more views. COMPARISON: CR XR ANKLE RT MIN 3V 03/05/2025 10:07 AM FINDINGS: Bones/joints: Redemonstrated distal fibular fracture with interval increase in callus formation and osseous bridging consistent with progressive healing. Posterior and plantar calcaneal spurring. The ankle mortise is congruent. Possible small ankle joint effusion. Midfoot degenerative changes. Soft tissues: Diffuse foot and ankle soft tissue swelling. IMPRESSION: 1. Progressive healing of distal fibular fracture. 2. Significant persistent soft tissue swelling of the foot and ankle.
== END 2025-03-26 23:59 ==
LOC: RAD 10:17
PROVIDERS: PCP Nurse Practitioner Family; Visit Provider Orthopaedic Surgery
DX: S82.491D Other fracture of shaft of right fibula, subsequent encounter for closed fracture with routine healing (principal); X58.XXXD Exposure to other specified factors, subsequent encounter; M19.071 Primary osteoarthritis, right ankle and foot; M77.31 Calcaneal spur, right foot
CPT/HCPCS: 73610

== ENCOUNTER 2025-04-06 10:32 | Outpatient (CLI) | payer MEDICARE, MEDICAID, SELFPAY ==
--- NOTE | 2025-04-06 10:30 | MR_ITS ---
APPROVED REPORT Dry Cleaning Checker: CLINICAL INDICATION Cardiomyopathy / myocarditis evaluation TECHNIQUE Image Acquisition: Cardiac magnetic resonance (CMR) was performed on Siemens Espree MRI 1.5T scanner. Software platform sequences were performed using the Siemens OpenFeint MR B19 platform. A set of three-plane, low-resolution, large kyrqw-th-qyye localizers were initially acquired. Then axial, coronal, sagittal TrueFISP, as well as axial HASTE images, were obtained. These were followed by gated TrueFISP breathold cinematic sequences obtained in the short axis with 8 mm slices and 2 mm gaps, 2-chamber (vertical long axis), 3-chamber, 4-chamber (horizontal long axis). A bolus of contrast was injected intravenously with first-pass sequences obtained in the short axis and four-chamber planes. After approximately 10 minutes, a TI compressor station chief engineer sequence was performed to determine the optimal TI time. Using the optimized TI time, delayed contrast enhancement segmented inversion???recovery TurboFLASH sequences were obtained in the short axis, 2-chamber, 3-chamber, and 4-chamber projections. 2D-velocity phase mapping was performed. Functional parameters were calculated by offline analysis on an independent workstation (Tactile Imaging Platform, [facility]). Contrast: ProHance??? (Gadoteridol) FINDINGS MORPHOLOGY AND FUNCTION Left ventricle: The left ventricle is moderately dilated. The indexed left ventricular end-diastolic volume (LVEDVi) is 102 ml/m2 (reference range 57-105 ml/m2 in males, 56-96 ml/m2 in females). Mild reduction in left ventricular systolic function is present. There is normal left ventricular wall thickness. Mild global hypokinesis is present. LVEF is calculated at 47.5% (reference range 57-77%). Right ventricle: The right ventricle is normal in size. The indexed right ventricular end-diastolic volume (RVEDVi) is 66 ml/m2 (reference range 61-121 ml/m2 in males, 48-112 ml/m2 in females). Normal right ventricular systolic function is present. RVEF is calculated at 54.0% (reference range 52-72% in males, 51-71% in females). Atria: The left atrium is severely dilated. The maximum indexed left atrial volume is 55 ml/m2 (reference range 26-52 ml/m2 in males, 27-53 ml/m2 in females). The right atrium is normal in size. The maximum indexed right atrial volume is 24 ml/m2 (reference range 18-90 ml/m2). Aorta: The diameter of the aortic annulus is normal, measuring 26 mm (coronal view reference range 21-30 mm in males, 19-27 mm in females). The diameter of the aortic sinus is normal, measuring 33 mm (coronal view reference range 25-42 mm in males, 24-36 mm in females). The diameter of the sinotubular junction is normal, measuring 27 mm (coronal view reference range 18-32 mm in males, 18-28 mm in females). The diameters of the ascending and descending thoracic aorta are normal. Main pulmonary artery: The main pulmonary artery diameter is normal. Pericardium: The pericardial thickness is normal. The pericardial thickness measures 1.5 mm (normal < 4.0 mm). There is no pericardial effusion. VALVES The valvular morphologies in the visualized sequences appear normal. There is no significant valvular stenosis or regurgitation of the mitral, aortic, tricuspid, or pulmonic valve noted visually. Systolic anterior motion of the mitral valve is not visualized. Ratio of pulmonary to systemic flow, Qp:Qs ratio = 0.9 (normal < or = 1.2, hemodynamically significant shunt > 1.5), demonstrating no evidence of hemodynamically significant shunt. TISSUE CHARACTERIZATION Resting Perfusion: Normal myocardial blood flow at rest. No evidence of resting hypoperfusion. Myocardial Fibrosis and/or edema: Normal gadolinium kinetics are present. No evidence of late gadolinium enhancement is noted, consistent with absence of myocardial scarring, infarction, or necrosis. T2-weighted imaging demonstrates no evidence of myocardial edema or inflammation. OTHER No other significant findings are noted. However, this exam is focused on the cardiac structure and function. IMPRESSION Moderate LV dilation with mild reduction in LV systolic function. LVEDVi= 102 ml/m2 and LVEF= 47.5%. Normal RV size with normal RV systolic function. RVEDVi= 66 ml/m2 and RVEF= 54.0%. LA enlargement. No CMR evidence of myocardial scarring, infarction, or necrosis. No evidence of myocardial edema or inflammation. Perfusion analysis demonstrates normal blood flow at rest with no evidence of resting hypoperfusion. Ratio of pulmonary to systemic flow, Qp:Qs ratio = 0.9 (normal < or = 1.2, hemodynamically significant shunt > 1.5), demonstrating no evidence of hemodynamically significant shunt. The above CMR findings are suggestive of dilated, non-ischemic cardiomyopathy (LVEF 47.5%). No evidence of myocarditis (findings do not meet [place] CMR criteria for myocarditis). No evidence of prior scarring or infarct. No evidence of infiltrative cardiomyopathy. COMPARISON None CRITICAL RESULT None COMMUNICATION The above findings were relayed to the patient at the time of the routine outpatient cardiology follow-up visit, prior to dictation of this report. The findings of this cardiac MR were reviewed, reported, and signed by Abelardo Obrien MD (Amphibian Crewmember). Conclusion Electronically signed by : Evelia Obrien MD 04/23/2025 16:11:27
--- OUTSIDE RECORDS SUMMARY | 2025-04-06 10:37 | XMS_ITS | CCD ---
Author Organization Unknown Care Team Providers Care Prevention Specialist Name Role Phone Non Engaged, [facility] Primary Care Provider Unav ailable Unavailable Chronic Care Management Unavaila ble Summary Purpose DataExchange Family History Family History data not found Medication Administered No Medication Administered data Reason For Visit No Reason For Visit data Medical Equipment No Medical Equipment data Advance Directives No Advance Directive data
--- OUTSIDE RECORDS SUMMARY | 2025-04-06 10:37 | XMS_ITS | Clinical Summary ---
Author Organization [facility] Address [address] [place] [address] Care Team Providers Care Locum Tenens Name Role Phone Carlos Gonzalez MD Primary [...] of Treatment Not on file Care Teams Locum Tenens Relationship Specialty Start Date End Date Carlos Gonzalez MD [address] [id number] PCP - General 08/30/20
--- OUTSIDE RECORDS SUMMARY | 2025-04-06 10:37 | XMS_ITS | Clinical Summary ---
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 (ICD-10-CM ) 10/19 Active 10/19 Winifred Jorje Other specified bacterial agents as the cause of diseases classified elsewhere Anaerococcus infection B96.89 (ICD-10-CM ) 10/19 Active 10/19 Winifred Jorje Other specified bacterial agents as the cause of diseases classified elsewhere COPD 42778317 (SNOMED CT) 10/19 Active 10/19 Winifred Jorje Chronic obstructive pulmonary disease MRSA infection 247114258 (SNOMED CT) 10/19 Active 10/19 Winifred Jorje Methicillin resistant Staphylococcus aureus infection Obesity, class 2, BMI 35 to <40 55356268 (SNOMED CT) 10/19 Active 10/19 Winifred Jorje Coronary arteriosclerosis Knee, right, subsequent encounter(s), infection/inf lammatory reaction due to internal joint prosthesis T84.53xD (ICD-10-CM ) 10/19 Active 10/19 Winifred Jorje Infection and inflammatory reaction due to internal right knee prosthesis, subsequent encounter Cellulitis of RLE 034000513 (SNOMED CT) 10/19 Active 10/19 Winifred Recinos Cellulitis of lower limb DM II with diabetic CKD, 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) E11.22 (ICD-10-CM ) 10/19 Active 10/19 Winifred Recinos Type 2 diabetes mellitus with diabetic chronic kidney disease Coronary artery disease (CAD) 81526319 (SNOMED CT) 10/19 Active 10/19 Wiinfred Recinos Coronary arteriosclerosis Hypertensive heart and CKD, benign, 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) 946995755 (SNOMED CT) 10/19 Active 10/19 Winifred Recinos Chronic diastolic heart failure Medications Medication Instructions Start Date Stop Date Generic Name NDC Provider daptomycin recon soln Cubicin 700mg Iv Q24hrs [facility] 11/09 daptomycin recon kadeem Alvarez RN ceftriaxone recon soln Rocephin 2G IV q24hrs -- [facility] 11/09 ceftriaxone perla Alvarez RN DOXYCYCLINE MONOHYDRATE 100 MG TABS Take 1 tablet by mouth twice a day 11/27 doxycycline monohydrate 26783818806 David Fulton MD CEFUROXIME AXETIL 250 MG TABS Take 1 tablet by mouth twice a day 11/27 cefuroxime axetil 52626171940 David Fulton MD ceftriaxone recon soln Rocephin 2G IV q24hrs -- [facility] 11/09 ceftriaxone recon gracielan Becca Landrum daptomycin recon soln Cubicin 700mg Iv Q24hrs [facility] 11/09 daptomycin recon kadeem Alvarez RN TORSEMIDE 100 MG TABS Take 0.5 tablets (50 mg total) by mouth daily. torsemide [id number] QIE qieuser SPIRONOLACTONE 25 MG TABS Take 1 tablet (25 mg total) by mouth daily. spironolactone 12606978659 QIE qieuse r OXYGEN-AIR DELIVERY SYSTEMS MISC 2 liter at night time. . 11/09 OXYGEN-AIR DELIVERY SYSTEMS MISC QIE qieuser ONDANSETRON HCL 4 MG TABS Take 1 tablet (4 mg total) by mouth every 8 (eight) hours as needed for nausea. ondansetron hcl 92845683095 QIE qieuser MUPIROCIN 2 % OINT 1 Application 3 (three) times daily. mupirocin 96444982693 QIE qieuser VITAMIN D3 50 MCG (2000 UT) TABS Take 1 tablet (2,000 Units total) by mouth daily. cholecalciferol (vitamin d3) 30129044491 QIE qieuser ALLOPURINOL 100 MG TABS Take 1 tablet (100 mg total) by mouth daily. allopurinol 45141431884 QIE qieuser ALBUTEROL SULFATE HFA 108 (90 Base) MCG/ACT AERS Inhale 2 puffs by mouth every 6 (six) hours as needed for shortness of breath or wheezing. 11/09 albuterol sulfate 72853556598 QIE qieuser ALBUTEROL SULFATE (2.5 MG/3ML) 0.083% NEBU Inhale 3 mLs (2.5 mg total) by nebulization every 4 (four) hours as needed for wheezing or shortness of breath. 10/23 albuterol sulfate 56562946077 QIE qieuser ACETAMINOPHEN 325 MG TABS Take 2 tablets (650 mg total) by mouth every 6 (six) hours as needed. 10/23 acetaminophen 21951878978 QIE qieuser daptomycin recon soln Cubicin 700mg Iv Q24hrs [facility] 10/23 daptomycin recon soln Skylar Crocker [...]
--- OUTSIDE RECORDS SUMMARY | 2025-04-06 10:37 | XMS_ITS | Clinical Summary ---
Author Organization [employer] ([place], [place], [place], [place], [place]) Address [address] [place] [address] Care Team Providers Care Chucking Machine Operator Name Role Phone Story, Norma Reynolds AGA Primary Care Provider [phone]- [phone] Allergies Active Allergy Reactions Criticality Noted Date [...] Isolated 0 10/10 Educational Attainment Answer Date Ejsse rded Do you speak a language other than Nepalese at [facility]? No 10/10/2024 Do you want help with [...] Completed 02/10/2023 Medical Devices Implanted Type Area Twisting Press Operator Device Identifier Shelf Expiration Date Model / Serial / Lot Cement Bone Smplx Tobra 40gm 6197-9-001 - [id number] Implanted:Qty : 2 on 08/23/2024 by Kiran Olmos MD at [facility] IMPLANTS Right: Knee [employer] 10/16/2025 6197-9-00 1 / / [id number] Pwdr Cellerate Clgn 1gm Strl Eml-36-Iwxdow - [id number] Implanted:Qty : 1 on 08/23/2024 by Kiran Olmos MD at [facility] IMPLANTS Right: Knee [employer] [facility] 08/31/2026 I-01-SA CRXP / / [id number] Pwdr Cellerate Clgn 1gm Strl Ucf-90-Beabqm - [id number] Implanted:Qty : 1 on 10/11/2024 by Kiran Olmos MD at [facility] IMPLANTS Right: Knee [employer] [facility] 08/31/2026 WCI-01-SA CRXP / / [id number] Imp Patella Itotal 35x7mm [id number] - [id number] Implanted:Qty : 1 on 08/23/2024 by Kiran Olmos MD at [facility] [employer]INT [employer] Right: Knee [employer] 06/16/2026 [id number] Kt Itotal Id Ps Full Xe Itps-Xe-1pc - [id number] Implanted:Qty : 1 on 08/23/2024 by Kiran Olmos MD at [facility] [employer] Right: Knee [employer] 08/16/2025 ITPS-XE-1 PC / [id number] / Imp Itotal Id Ps Fem Attila Lt [id number] - [id number] Implanted:Qty : 1 on 08/23/2024 by Kiran Olmos MD at [facility] [employer] Right: Knee [employer] 08/16/2025 [id number] / [id number] / Ty Itotal Id Ps Tib Attila Lt [id number] - [id number] Implanted:Qty : 1 on 08/23/2024 by Kiran Olmos MD at [facility] [employer] Right: Knee [employer] 08/16/2025 [id number] / Procedures Procedure Name Priority Date/Time Associated Diagnosis Comments HEMOGLOBIN A1C Routine 08/09/2024 11:20 AM EDT Preop examination from Last 3 Months or Most Recently Relevant to Health Maintenance Results * (ABNORMAL) Hemoglobin A1c (08/09/2024 11:20 AM EDT) Hemoglobin A1C 7.7(H) 4.2 - 6.3 % 08/09/2024 12:43 PM EDT [facility] Comment: Hemoglobin A1C levels are related to mean glucose during the preceding 2-3 months. Less than 7% demonstrates glycemic control in diabetic patients. 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
--- OUTSIDE RECORDS SUMMARY | 2025-04-06 10:37 | XMS_ITS | Referral Summary ---
Author Organization [employer] ([place], [place], [place], [place], [place]) Address [address] [place] [address] Care Team Providers Care Ironer Or Presser Name Role Phone Story, Norma Reynolds AGA Primary Care Provider +1- [phone] Allergies Active Allergy Reactions Criticality Noted Date [...] you? Never 10/10/2024 How often does anyone, soeas hanna family and friends, insult or talk [...] Do you speak a language other than [place] at [facility]? No 10/10/2024 Do you want help with [...] on file Medical Devices Implanted Type Area Sld Educational Aide Device Identifier Shelf Expiration Date Model / Serial / Lot Cement Bone Smplx Tobra 40gm 6197-9-001 - [id number] Implanted:Qty : 2 on 08/23/2024 by Kiran Olmos MD at [facility] IMPLANTS Right: Knee [employer] 10/16/2025 6197-9-00 1 / / [id number] Pwdr Cellerate Clgn 1gm Strl Knx-40-Bwpumh - [id number] Implanted:Qty : 1 on 08/23/2024 by Kiran Olmos MD at [facility] IMPLANTS Right: Knee [employer] 08/31/2026 [facility]--SA CRXP / / [id number] Pwdr Cellerate Clgn 1gm Strl Yri-82-Vmknft - [id number] Implanted:Qty : 1 on 10/11/2024 by Kiran Olmos MD at [facility] IMPLANTS Right: Knee [employer] [facility] 08/31/2026 [facility]--SA CRXP / / [id number] Imp Patella Itotal 35x7mm [id number] - [id number] Implanted:Qty : 1 on 08/23/2024 by Kiran Olmos MD at [facility] [employer] Right: Knee [employer] 06/16/2026 [id number] / / [id number] Kt Itotal Id Ps Full Xe Itps-Xe-1pc - [id number] Implanted:Qty : 1 on 08/23/2024 by Kiran Olmos MD at [facility] [employer] Right: Knee [employer] 08/16/2025 ITPS-XE-1 PC / [id number] / Imp Itotal Id Ps Fem Attila Lt [id number] - [id number] Implanted:Qty : 1 on 08/23/2024 by Kiran Olmos MD at [facility] [employer] Right: Knee [employer] 08/16/2025 [id number] / [id number] / Ty Itotal Id Ps Tib Attila Lt [id number] - [id number] Implanted:Qty : 1 on 08/23/2024 by Kiran Olmos MD at [facility] [employer] Right: Knee [employer] 08/16/2025 [id number] / [id number] / Procedures Procedure Name Priority Date/Time Associated Diagnosis Comments HEMOGLOBIN A1C Routine 08/09/2024 11:20 AM EDT Preop examination from Last 3 Months or Most Recently Relevant to Health Maintenance Results * (ABNORMAL) Hemoglobin A1c (08/09/2024 11:20 AM EDT) Hemoglobin A1C 7.7(H) 4.2 - 6.3 % 08/09/2024 12:43 PM EDT [facility] Comment: Hemoglobin A1C levels are related to mean glucose during the preceding 2-3 months. Less than 7% demonstrates glycemic control in diabetic patients. 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
--- OUTSIDE RECORDS SUMMARY | 2025-04-06 10:37 | XMS_ITS | Encounter Summary ---
Author Organization Healthcare Address [address] [place] [address] Care Team Providers Care Tool And Die Engineer Name Role Phone Carlos Gonzalez MD Primary Care Provid er Encounter Details Date Type Department Care Team (Late st Contact Info) Description 09/28/2024 Lab Requisition [facility] [address] [place] [address] System, Provider Not In, [address] [place] [address] Chronic respiratory failure with hypoxia; Osteoarthritis of [...] - 1,799 pg/mL 09/28/2024 11:58 PM EDT [facility] Blood Venous blood specimen / Unknown 09/28/2024 11:00 PM EDT 09/28/2024 11:42 PM EDT us Provider Not In System LAB BLOOD ORDERABLES F inal Result [facility] [address] [place] [address] documented in this encounter Visit Diagnoses Diagnosis Chronic respiratory failure with hypoxia Osteoarthritis of knee, unspecified Chronic kidney disease, unspecified Muscle weakness (generalized) documented in this encounter Care Teams Tool And Die Engineer Relationship Specialty Start Date End Date Carlos Gonzalez MD [address] [place], [place] [id number] PCP - General 08/30/20 documented as of this encounter
[2025-04-06] MEDS: GADOTERIDOL INJ 20ML SYRINGE 24 ML IV (12:33)
[2025-04-06] MEDS: 0.9 % SODIUM CHLORIDE 50 ML VIAL 10 ML IV (12:33)
== END 2025-04-06 23:59 | disposition home or self-care (01) ==
LOC: RAD 10:33
PROVIDERS: PCP Nurse Practitioner Family; Visit Provider Internal Medicine
DX: I11.0 Hypertensive heart disease with heart failure (principal); I50.20 Unspecified systolic (congestive) heart failure; I42.9 Cardiomyopathy, unspecified; I21.4 Non-ST elevation (NSTEMI) myocardial infarction; I51.4 Myocarditis, unspecified
CPT/HCPCS: 75561; A9576